=== PATIENT | male | born 1940 | race Caucasian/White ===

== ENCOUNTER 2022-02-01 09:20 | Inpatient (IN) ==
--- NOTE | 2022-02-01 12:37 | History & Physical Report ---
Date of Service February 01, 2022 Assessment & Plan (1) Acute kidney injury superimposed on CKD: Plan: Suspect related to dehydration from poor oral intake related to COVID infection but will need to rule out other causes. Known left renal mass suspicious for neoplasm but has been stable on outpatient serial imaging. - Admit to PCU - Consult nephrology - IVF hydration - Daily labs - Renal U/S to evaluate for structural issue - Check UA, CK (2) Pneumonia due to COVID-19 virus: Plan: Increased O2 requirement from baseline, procal is normal so suspect infiltrate seen in the ED at [place] likely viral rather than bacterial. Holding additional antibiotics for now. - Continue O2 titrated as needed - Start dexamethasone. Stop molnupiravir due to worsening of baseline hypoxia and TRACY. Not a candidate for remdesivir due to kidney disease. - Repeat CXR in AM (3) Chronic hypoxemic respiratory failure: (4) Anemia of chronic renal failure: (5) HTN (hypertension): (6) Coronary artery disease: (7) BPH (benign prostatic hyperplasia): (8) Dyslipidemia: (9) Left renal mass: (10) COPD with exacerbation: Plan Continue other home meds as appropriate. Pt seen and reviewed with collaborating physician, Dr. Elizabeth. Plan of care discussed and as outlined above. Code Status: Full code DVT Prophylaxis: SubQ heparin Grayson Linder PA-C Admission and Anticipated Discharge Date Admission Date: February 01, 2022 History of Present Illness Chief Complaint: Worsening kidney function Primary Care Provider: Sujata Preston MD This is an 81 y/o male with a PMH of COPD, CKD4, chronic hypoxemic resp failure requiring 3L O2 at night, anemia, prior renal cell CA, MOLLY and COPD overlap syndrome, HTN, prior AK, prior CVA, dyslipidemia, and other PMH as outlined below who presented to [place] ED last night with worsening respiratory distress then was transferred to the this facility today for a higher level of care. Pt reports that he developed URI symptoms on 01/29 - cough, sweats, [place]KEFIELD, diarrhea, congestion, and increased dyspnea. Took a home test for COVID on 01/30 which was positive. Prescribed molnupiravir by PCP, which he has been taking. Last night, his respiratory symptoms worsened with increased O2 requirement from baseline 3L to 6L to maintain sats so he went to the ED in [place] for evaluation. In the ED, he was noted to have an TRACY. Due to lack of specialist care including nephrology in at [facility], transfer was recommended. Since pt follows with Dr. Patle for CKD as outpatient, family preferred that he come to a facility where [facility] providers are available. In addition to increased O2 requirement last night, pt has also been using on demand if needed in evenings or with significant exertion. His cough is productive of yellow-green mucus, occasional hemoptysis. Unsure if he has had a fever but has had sweats. Appetite is decreased but has been trying to keep up with fluids, limited solid food. Urinary output decreased but relates to poor oral intake. The initial diarrhea seems to have improved. Has had associated WAKEFIELD, fatigue, and weakness. Allergies Allergy/AdvReac Type Severity Reaction Status Date / Time No Known Allergies Allergy Unverified 02/01/22 13:03 Home Medications Medication Instructions Recorded Confirmed Type carvedilol 3.125 mg tablet (Coreg) 3.125 mg PO BID 02/01/22 02/01/22 History hydralazine 25 mg tablet 25 mg PO BID 02/01/22 02/01/22 History molnupiravir 800 mg PO BID covid 02/01/22 02/01/22 History nifedipine 60 mg tablet,extended 60 mg PO BID 02/01/22 02/01/22 History release 24 hr (Procardia XL) rosuvastatin 40 mg tablet (Crestor) 40 mg PO DAILY 02/01/22 02/01/22 History trazodone 50 mg tablet 50 mg PO HS 02/01/22 02/01/22 History venlafaxine 37.5 mg 37.5 mg PO DAILY 02/01/22 02/01/22 History capsule,extended release 24 hr (Effexor XR) Past Med/Surg History Medical History Adjustment disorder with mixed disturbance of emotions and conduct Anemia of chronic renal failure BPH (benign prostatic hyperplasia) C7 radiculopathy Carotid stenosis, right Chronic hypoxemic respiratory failure CKD (chronic kidney disease) stage 4, GFR 15-29 ml/min COPD (chronic obstructive pulmonary disease) Coronary artery disease Dyslipidemia History of basal cell carcinoma History of AK (myocardial infarction) History of stroke HTN (hypertension) Lumbosacral radiculopathy at L5 MOLLY and 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 Prediabetes Renal osteodystrophy Surgical History History of appendectomy History of cholecystectomy History of heart artery stent Family History (Updated 02/01/22 @ 12:05 by Madonna Linder PA-C) Other Colorectal cancer Social History Smoking Status: Never smoker Second Hand Exposure: No; Do You Dip or Chew Tobacco: No; Tobacco Cessation Education Requested by Patient: No Hx Alcohol Use: No Hx Substance Use: No Communication Ability: Effective Beliefs That Will Affect Care: None Current Living Situation: Spouse Other Information That Helps Us Care for You: No Feels Safe at Home: Yes Safety Concerns: Feels Safe At This Time Assistive Devices: Cane Review of Systems Review of Systems: All systems reviewed & are unremarkable except as noted in HPI & below Constitutional: + sweats, + fatigue and + anorexia Eyes: no diplopia Ear, Nose, Mouth, Throat: + nasal congestion Respiratory: + cough, + change in sputum, + dyspnea and + wheezing Cardiovascular: + chest pain (describes burning in his chest); no palpitations and no edema Gastrointestinal: no abdominal pain and no vomiting Genitourinary: no dysuria or no hematuria Integumentary: no rash and no yellowing of the skin Neurologic: + generalized weakness and + headache(s) Physical Exam Constitutional: well developed and well nourished; no acute distress Eyes: + anicteric sclerae Neck: trachea midline Respiratory: no respiratory distress and no labored breathing Auscultation: + diminished lung sounds and + wheezes (occasional faint end expiratory) Cardiovascular: Rate/Rhythm: regular rate and regular rhythm Vessels: radial pulses present Extremities: no pedal edema Gastrointestinal (Abdomen): Inspection/Auscultation: normal bowel sounds; abdomen not distended Percussion/Palpation: abdomen soft; abdomen nontender Musculoskeletal: Head/Neck/Chest: normocephalic, head atraumatic and neck supple Skin: no jaundice Neurologic: moves all extremities; no focal motor deficits and not confused Psychiatric: A+Ox3, euthymic affect Results & Data Results & Data ([facility]) Vital Signs (Past 12 Hours) Vital Signs Temp Pulse Resp BP Pulse Ox O2 Del Method O2 Flow Rate 02/01/22 12:17 36.6 C 88 24 143/73 H 92 Nasal Cannula 4 Laboratory Results Laboratory Results - last 24 hr 02/01/22 02/01/22 02/01/22 12:38 12:38 12:38 WBC 3.85 L RBC 3.53 L Hgb 9.6 L Hct 30.8 L MCV 87.3 MCH 27.2 MCHC 31.2 L RDW Std Deviation 49.1 H RDW Coeff of John 15.4 H Plt Count 81 L MPV 11.8 Immature Gran % (Auto) 0.5 Neut % (Auto) 92.4 Lymph % (Auto) 4.2 [place] % (Auto) 2.9 Eos % (Auto) 0.0 Baso % (Auto) 0.0 Neut # (Auto) 3.56 Lymph # (Auto) 0.16 L [place] # (Auto) 0.11 L Eos # (Auto) 0.00 Baso # (Auto) 0.00 Immature Gran # (Auto) 0.02 Echinocytes 2+ Sodium 136 Potassium 4.5 Chloride 108 H Carbon Dioxide 20 L Anion Gap 8 BUN 68 H Creatinine 4.24 H Est Cr Clr Drug Dosing 13.4 Est GFR ( Amer) 14.2 Est GFR (Non-Af Amer) 12.3 BUN/Creatinine Ratio 16.0 Glucose 249 H Calcium 7.5 L Magnesium 2.2 Total Bilirubin 0.3 Direct Bilirubin 0.0 AST 23 ALT 21 Alkaline Phosphatase 42 C-Reactive Protein 6.03 H Total Protein 6.2 Albumin 3.6 Procalcitonin 0.24 Diagnostic Findings Outpatient Renal U/S 12/27/21 - increased echogenicity of the kidneys suggesting medical renal disease, persistent left upper pole mass suspicious for neoplasm (2.2x1.6x1.7 cm), mild 3.3 cm distal AAA Code Status & VTE Plan VTE Prophylaxis Plan VTE Prophylaxis will be ordered: Yes Supervising Physician Co-Signing Physician Notes I have seen and examined the patient and have discussed the case with the provider above. I agree with the assessment and plan as stated. 81 yo M with CKD presents from an OSH with acute on chronic kidney failure. Baseline creatinine is around 3.0 and today his creatinine is 4.24. He reports significant fatigue that started over the weekend along with runny nose and shortness of breath as noted above. He feels better at this time and has been placed on steroids. Although he is more hypoxic, we are not giving remdesivir because he was recently on molnupiravir and because of his renal dysfunction. He is obese, and in NAD. He appears fatigued but is mentating clearly without any gross focal neuro deficits. Speech intact. No increased work of breathing and he is able to situp with minimal assistance. Lungs reveal diffuse wheezing throughout on auscultation. Cardiac auscultation reveals S1/2 heard with no m/g/r and no peripheral edema. Covid-19 infection contributing to TRACY related to poor PO intake and general illness. A COPD exacerbation appears present. Cont with IVF, and repeat CXR in am. Cont with steroids for active wheezing and nebulized bronchodilators. Flonase for nasal congestion in covid and other supportive care measures as needed. DO Glenn
[2022-02-01 12:54] LABS: Hematocrit (blood only) 30.8 % (40.1-51.0); Hemoglobin 9.6 g/dl (14.0-18.0); White Blood Count 3.85 K/ul (4.8-10.8)
[2022-02-01 13:22] LABS: Albumin Level 3.6 gm/dl (3.4-5.0); Bilirubin,Total 0.3 mg/dl (0.2-1.0); C Reactive Protein 6.03 mg/dl (0-0.5); Calcium 7.5 mg/dl (8.5-10.1); Creatinine Clr Calc Pharmacy 13.4 ml/min; Echinocytes 2+; Est GFR (African American) 14.2 ml/min; Est GFR (Non-African American) 12.3 ml/min; Immature Granulocytes # (auto) 0.02 K/uL (0.00-0.02); Immature Granulocytes % (auto) 0.5 %; Lymphocytes # (auto) 0.16 K/uL (1.2-3.4); Lymphocytes % (auto) 4.2 %; Magnesium 2.2 mg/dl (1.7-2.4); Mean Corpuscular Hemoglobin 27.2 pg (25.0-34.0); Mean Corpuscular Hgb Conc 31.2 g/dL (32.0-36.0); Mean Corpuscular Volume 87.3 fL (80.0-100.0); Mean Platelet Volume 11.8 fL (9.4-12.4); Monocytes # (auto) 0.11 K/uL (0.24-0.82); Monocytes % (auto) 2.9 %; Neutrophils # (auto) 3.56 K/uL (1.4-6.5); Neutrophils % (auto) 92.4 %; Platelet Count 81 K/uL (130-400); Potassium 4.5 mmol/L (3.5-5.1); RDW Coefficient of Variation 15.4 % (11.5-14.5); RDW Standard Deviation 49.1 fL (36.4-46.3); Red Blood Count 3.53 M/uL (4.63-6.08); Total Protein 6.2 gm/dl (6.0-8.3)
[2022-02-01] MEDS: dexAMETHasone 6 MG in SYRINGE 0 ML IV SCH (14:56)
[2022-02-01] MEDS: SODIUM CHLORIDE 0.9% 1000ML 1,000 ML IV SCH (14:57)
--- NOTE | 2022-02-01 15:13 | Ultrasound Report ---
US renal/blad retro comp CLINICAL HISTORY: TRACY on CKD TECHNIQUE: Multiple sonographic real-time images of the kidneys and bladder were obtained. COMPARISON: None available at the time of this dictation. FINDINGS: The right kidney measures 11.7 cm in length, and the left kidney measures 14.2 cm in length. The right renal cortex is diffusely echogenic. Cysts are seen. No renal lesion is identified. No per inephric fluid collection is seen. The left renal cortex is diffusely echogenic. Cysts are seen measuring 3.8 x 5.5 x 3.0 cm. No renal l esion is identified. No perinephric fluid collection is seen. The bladder is partially distended. No large intraluminal mass is seen. IMPRESSION: Right renal cortex is echogenic compatible with medical renal disease. ACT 112: Negative or not required by law. Electronically signed by: Elio Pacheco M.D. 02/01/2022 3:12 PM
[2022-02-01] MEDS: HEPARIN SOD 5,000 UNIT/0.5 ML VIAL SQ SCH ×2 (15:38→20:31)
[2022-02-01 15:43] LABS: Appearance Urine Cloudy (Clear); Bacteria Urine Automated Negative (Negative); Bilirubin Urine Negative (Negative); Blood Urine Negative (Negative); Color Urine Yellow; Epithelial Cell Urine Auto >30 /lpf (0-5); Glucose Urine UA Trace (Negative); Ketones Urine Negative (Negative); Leukocyte Esterase Urine Negative (Negative); Nitrite Urine Negative (Negative); Protein Urine 3+ (Negative); RBC Urine Automated 0-4 /hpf (0-4); Specific Gravity Urine 1.011 (1.000-1.030); Urobilinogen Urine Negative (Negative)
[2022-02-01] MEDS: carvediloL 3.125 MG TAB PO SCH (20:27)
[2022-02-01] MEDS: hydrALAZINE HCL 25 MG TAB PO SCH (20:28)
[2022-02-01] MEDS: NIFEdipine EXTENDED REL 30 MG TABCR PO SCH (20:29)
[2022-02-01] MEDS: traZODone HCL 50 MG TAB PO SCH (20:30)
[2022-02-01] MEDS: FLUTICASONE PROPIONATE NA SPR 16 GM BTL NAE SCH (20:42)
[2022-02-02] MEDS: SODIUM CHLORIDE 0.9% 1000ML 1,000 ML IV SCH (01:31)
--- NOTE | 2022-02-02 02:31 | Consultation Report ---
NEPHROLOGY CONSULTATION NOTE DATE OF SERVICE: 02/01/2022. REASON FOR CONSULTATION: Acute renal failure on background CKD IV in a patient admitted with COVID pneumonia and hypoxia. HISTORY OF PRESENT ILLNESS: The patient is an 81-year-old male with history of COPD, on 3 liters oxygen at night, CKD IV with baseline creatinine around 3.3, prior history of renal cell cancer, obstructive sleep apnea as well as COPD, hypertension, prior history of AL. He presented to the [place] [facility] last night with worsening respiratory distress. He was found to be positive for COVID. The patient developed URI symptoms 3 days ago with cough, sweats, headache, diarrhea, congestion and increasing shortness of breath. He did have a COVID home test on 01/26/2022, which was positive. After that, he was prescribed molnupiravir by PCP, which he has been taking; however, the respiratory symptoms got increasingly worse requiring more oxygen. He was also hypoxic with oxygen level as low as 78% at some point. In the Emergency Department, he was noted to have acute kidney injury with a creatinine of 4.2 after which he was transferred to [facility] for specialist care. At this time, the patient is around 5 liters of oxygen, creatinine is 4.24, sodium and potassium are acceptable. Urine shows lots of epithelial cells and hyaline cast as well as granular cast. He does have COVID pneumonia, but on the x-ray does not have anything to suggest pulmonary edema. Renal ultrasound already done and does not have any hydronephrosis. The patient is currently getting normal saline at 100 mL per hour as well as dexamethasone. His blood pressure is somewhat high and it does not appear his blood pressure has been low at any point in the last 4 days. PAST MEDICAL AND SURGICAL HISTORY: Includes COPD, on 3 liters oxygen, chronic hypoxic respiratory failure requiring 3 liters oxygen at night, anemia, history of renal cell cancer, obstructive sleep apnea, COPD overlap syndrome, hypertension, coronary artery disease, CKD IV, baseline creatinine 3.3, history of stroke, dyslipidemia, appendicectomy, cholecystectomy, coronary artery stent, lumbosacral radiculopathy. FAMILY HISTORY: Negative for renal disease or dialysis. SOCIAL HISTORY: Never smoked. , lives with his spouse. Uses cane for walking. REVIEW OF SYSTEMS: Positive for fatigue, weakness, anorexia, sweating, chills, fever, cough with sputum, dyspnea which was progressively worsening, wheezing, some chest pressure, diarrhea. Otherwise, 12 systems reviewed and negative. PHYSICAL EXAMINATION: GENERAL: Elderly white male who is awake, alert, oriented x3. He is not in any overt respiratory distress and was able to speak a full sentence without getting short of breath. VITAL SIGNS: Blood pressure is 165/73, pulse rate 83, temperature 36.6, 95% on 4 liters nasal cannula. HEENT: Mucous membranes are moist. NECK: Supple. No jugular venous distention. CHEST: Bilateral prolonged expiration. Decreased breath sound at the bases. CARDIOVASCULAR: S1 and S2, regular. ABDOMEN: Soft, nontender. EXTREMITIES: Show no edema. LABORATORY TEST: Baseline creatinine is around 3.3, his creatinine on admission was 4.24, BUN of 68, bicarbonate 20, anion gap of 8, calcium 7.5. Total CK 97. Hemoglobin 9.6, WBC count 3.85, platelet count 81,000. Chest x-ray does not show any pulmonary edema. Renal ultrasound shows medical renal disease, no hydronephrosis. There are cysts in both kidneys, especially a large one in the left. ASSESSMENT AND PLAN: An 81-year-old male with multiple medical problems including chronic kidney disease IV, baseline creatinine around 3.3, now admitted with coronavirus disease pneumonia and hypoxic respiratory failure. He now has acute renal failure on background chronic kidney disease IV for which I have been consulted. 1. Acute renal failure. The acute component is actually not that much because even on a good day his baseline creatinine is around 3.3-3.5. Most likely etiology of the acute renal failure is transient acute tubular ischemia when he developed hypoxia at some point within the last few days. There is also some component of volume depletion. For the time being, we would give him IV fluid as well as support his hemodynamic status, especially oxygen saturation. We only have 1 set of lab at this time. Tomorrow morning, lab will give us better insight into the direction of the renal recovery. He is making good amount of urine, his vital signs are stable and he is not on any nephrotoxic agents or medicines at this time, so hopefully he will start to have some renal recovery. However, if there was a significant tubular ischemia leading to tubular necrosis, then the renal recovery will be protracted and we might even see some worsening of the kidney function. At this point, he does not need dialysis. We will assess him on a daily basis and manage accordingly. Thank you very much for the consult. Job ID: [id number] KEV
[2022-02-02] MEDS: HEPARIN SOD 5,000 UNIT/0.5 ML VIAL SQ SCH ×3 (05:33→20:33)
[2022-02-02 06:41] LABS: Hematocrit (blood only) 28.8 % (40.1-51.0); Mean Corpuscular Hemoglobin 26.7 pg (25.0-34.0); Mean Corpuscular Hgb Conc 31.3 g/dL (32.0-36.0); Mean Corpuscular Volume 85.5 fL (80.0-100.0); Mean Platelet Volume 11.6 fL (9.4-12.4); Platelet Count 88 K/uL (130-400); RDW Coefficient of Variation 15.3 % (11.5-14.5); RDW Standard Deviation 47.7 fL (36.4-46.3); Red Blood Count 3.37 M/uL (4.63-6.08); White Blood Count 5.58 K/ul (4.8-10.8)
[2022-02-02 06:51] LABS: Albumin Level 3.3 gm/dl (3.4-5.0); BUN Creatinine Ratio 16.3 (10-20); Bilirubin Direct 0.1 mg/dl (0-0.2); Bilirubin,Total 0.2 mg/dl (0.2-1.0); Calcium 7.4 mg/dl (8.5-10.1); Creatinine Clr Calc Pharmacy 12.6 ml/min; Est GFR (African American) 12.9 ml/min; Est GFR (Non-African American) 11.1 ml/min; Potassium 4.8 mmol/L (3.5-5.1); Total Protein 5.7 gm/dl (6.0-8.3)
[2022-02-02 06:54] LABS: Echinocytes 2+; Immature Granulocytes # (auto) 0.03 K/uL (0.00-0.02); Immature Granulocytes % (auto) 0.5 %; Lymphocytes # (auto) 0.35 K/uL (1.2-3.4); Lymphocytes % (auto) 6.3 %; Monocytes # (auto) 0.44 K/uL (0.24-0.82); Monocytes % (auto) 7.9 %; Neutrophils # (auto) 4.76 K/uL (1.4-6.5); Neutrophils % (auto) 85.3 %
[2022-02-02] MEDS: ALBUT/IPRATROP 3MG/0.5MG NEB 3 ML VIAL NEB SCH ×4 (07:12→20:03)
[2022-02-02] MEDS: dexAMETHasone 6 MG in SYRINGE 0 ML IV SCH (08:31)
[2022-02-02] MEDS: carvediloL 3.125 MG TAB PO SCH ×2 (08:33→20:37)
[2022-02-02] MEDS: NIFEdipine EXTENDED REL 30 MG TABCR PO SCH ×2 (08:33→20:37)
[2022-02-02] MEDS: VENLAFAXINE HCL XR 37.5 MG CAPXR PO SCH (08:33)
[2022-02-02] MEDS: hydrALAZINE HCL 25 MG TAB PO SCH ×2 (08:33→20:37)
--- NOTE | 2022-02-02 10:49 | Nephrology Progress Note ---
Date of Service February 02, 2022 Assessment & Plan Admission and Anticipated Discharge Date Admission Date: February 01, 2022 Subjective S---feels breathing about 20% better but still lot of cough and wheezing. PHYSICAL EXAMINATION: GENERAL: Elderly white male who is awake, alert, oriented x3. He is not in any overt respiratory distress and was able to speak a full sentence without getting short of breath. HEENT: Mucous membranes are moist. NECK: Supple. No jugular venous distention. CHEST: Bilateral prolonged expiration. Decreased breath sound at the bases. CARDIOVASCULAR: S1 and S2, regular. ABDOMEN: Soft, nontender. EXTREMITIES: Show no edema. LABORATORY TEST: Baseline creatinine is around 3.3, his creatinine on admission was 4.24, This am up to 4.6. Chest x-ray does not show any pulmonary edema. Renal ultrasound shows medical renal disease, no hydronephrosis. There are cysts in both kidneys, especially a large one in the left. ASSESSMENT AND PLAN: An 81-year-old male with multiple medical problems including chronic kidney disease IV, baseline creatinine around 3.3, now admitted with coronavirus disease pneumonia and hypoxic respiratory failure. He now has acute renal failure on background chronic kidney disease IV for which I have been consulted. 1. Acute renal failure--- The acute component is actually not that much because even on a good day his baseline creatinine is around 3.3-3.5. The etiology of the acute renal failure is transient acute tubular ischemia when he developed hypoxia at some point within the last few days. There is also some component of volume depletion but has already got enough iv fluid. too much fluid can trigger pulm edema and that will be very dangerous. He is making good amount of urine, his vital signs are stable and he is not on any nephrotoxic agents or medicines at this time, so hopefully he will start to have some renal recovery. The renal recovery will likely be protracted ( given pre existing CKD 4 and advanced age/ resp failure) and we might even see some worsening of the kidney function before getting better. At this point, he does not need dialysis. We will assess him on a daily basis and manage accordingly. Results & Data ([facility]) Vital Signs (Past 12 Hours) Vital Signs Temp Pulse Pulse Resp BP Pulse Ox O2 Del Method 02/02/22 08:04 36.4 C L 70 18 147/63 H 93 Nasal Cannula 02/02/22 07:13 58 L 18 91 Nasal Cannula 02/02/22 02:31 36.5 C 64 18 160/75 H 95 Nasal Cannula 02/01/22 23:50 36.5 C 77 20 157/63 H 92 Nasal Cannula 02/01/22 23:56 Nasal Cannula 02/01/22 23:54 83 O2 Flow Rate 02/02/22 08:04 4 02/02/22 07:13 4 02/02/22 02:31 4.0 02/01/22 23:50 4.0 02/01/22 23:56 4 02/01/22 23:54
--- NOTE | 2022-02-02 13:16 | Hospitalist Progress Note ---
Date of Service February 02, 2022 Assessment & Plan (1) Acute kidney injury superimposed on CKD: Plan: Likely TRACY due to ATN from hypoxia/COVID. He is transferred here from [facility] due to unavailability of nephrology there. Known left renal mass suspicious for neoplasm but has been stable on outpatient serial imaging. Baseline creatinine around 3; on lab 01/02/2022 Creatinine slightly up trended to 4.6; admission creatinine 4.2. Urinalysis shows 3+ proteinuria Renal ultrasound unremarkable for hydronephrosis CK- 97. Plan; Nephrology on board; acute renal failure is likely transient acute tubular ischemia related with hypoxia. Patient has received 2 L of IV fluids already. No additional IV fluids for now. Monitor BMP daily Avoid nephrotoxic agents. (2) Pneumonia due to COVID-19 virus: Plan: Chest x-ray in [facility] showed bilateral infiltrates likely related to COVID- 19 infection. Patient is at baseline oxygen requirement. Plan; Continue on dexamethasone 6 mg once daily; 5 days versus 10 days depending on clinical course. - Monitor for respiratory distress; titrate oxygen to maintain saturation around 90%. (3) Chronic hypoxemic respiratory failure: (4) Anemia of chronic renal failure: Plan: Hemoglobin is stable around 9. (5) HTN (hypertension): Plan: Coreg, hydralazine and nifedipine at home (6) Dyslipidemia: Plan: On Crestor Plan Continue other home meds as appropriate. PT/OT ordered Code Status: Full code DVT Prophylaxis: SubQ heparin Admission and Anticipated Discharge Date Admission Date: February 01, 2022 Subjective Patient seen and examined at bedside. Is comfortably sitting up on the bed; not in any distress. He denies any increasing shortness of breath. He is urinating well without any issues. Review of Systems Review of Systems: All systems reviewed & are unremarkable except as noted in Subjective Physical Exam Physical Exam: Constitutional: WD/WN, vitals as above, NAD, sitting up in bed, pleasant, conversing easily Respiratory: normal respiratory effort, lungs clear to auscultation, no wheeze, rales, rhonchi. Normal insp/exp effort, no accessory muscle use Cardiovascular: Occasional wheezes; otherwise clear bilateral breath sounds. Chest: normal inspection of chest Abdomen: normal bowel sounds, soft, nontender, no hepatosplenomegaly Musculoskeletal: no cyanosis or clubbing, extremities motor strength 5/5 Skin: no rashes, warm and dry normal turgor Neurologic: PERRL, EOMI, accommodation nl, no face palsy, no dysarthria CN's II- XI intact bilaterally and moves all extremities Psychiatric: A+Ox3, euthymic affect Lymphatic: no cervical or axillary lymphadenopathy : deferred Results & Data Results & Data ([facility]) Vital Signs (Past 12 Hours) Vital Signs Temp Pulse Resp BP Pulse Ox O2 Del Method O2 Flow Rate 02/02/22 11:41 36.4 C L 64 18 133/70 91 Nasal Cannula 2 02/02/22 11:12 75 18 93 Nasal Cannula 4 02/02/22 08:00 Nasal Cannula 4 02/02/22 08:04 36.4 C L 70 18 147/63 H 93 Nasal Cannula 4 02/02/22 07:13 58 L 18 91 Nasal Cannula 4 02/02/22 02:31 36.5 C 64 18 160/75 H 95 Nasal Cannula 4.0 Laboratory Results Laboratory Results WBC 5.58 K/ul (4.8-10.8) 02/02/22 05:39 RBC 3.37 M/uL (4.63-6.08) L 02/02/22 05:39 Hgb 9.0 g/dl (14.0-18.0) L 02/02/22 05:39 Hct 28.8 % (40.1-51.0) L 02/02/22 05:39 MCV 85.5 fL (80.0-100.0) 02/02/22 05:39 MCH 26.7 pg (25.0-34.0) 02/02/22 05:39 MCHC 31.3 g/dL (32.0-36.0) L 02/02/22 05:39 RDW Std Deviation 47.7 fL (36.4-46.3) H 02/02/22 05:39 RDW Coeff of John 15.3 % (11.5-14.5) H 02/02/22 05:39 Plt Count 88 K/uL (130-400) L 02/02/22 05:39 MPV 11.6 fL (9.4-12.4) 02/02/22 05:39 Immature Gran % (Auto) 0.5 % 02/02/22 05:39 Neut % (Auto) 85.3 % 02/02/22 05:39 Lymph % (Auto) 6.3 % 02/02/22 05:39 Heard % (Auto) 7.9 % 02/02/22 05:39 Eos % (Auto) 0.0 % 02/02/22 05:39 Baso % (Auto) 0.0 % 02/02/22 05:39 Neut # (Auto) 4.76 K/uL (1.4-6.5) 02/02/22 05:39 Lymph # (Auto) 0.35 K/uL (1.2-3.4) L 02/02/22 05:39 Heard # (Auto) 0.44 K/uL (0.24-0.82) 02/02/22 05:39 Eos # (Auto) 0.00 K/uL (0-0.50) 02/02/22 05:39 Baso # (Auto) 0.00 K/uL (0-0.2) 02/02/22 05:39 Immature Gran # (Auto) 0.03 K/uL (0.00-0.02) H 02/02/22 05:39 Echinocytes 2+ 02/02/22 05:39 Sodium 138 mmol/L (136-145) 02/02/22 05:39 Potassium 4.8 mmol/L (3.5-5.1) 02/02/22 05:39 Chloride 112 mmol/L (98-107) H 02/02/22 05:39 Carbon Dioxide 19 mmol/L (21-32) L 02/02/22 05:39 Anion Gap 7 (3-11) 02/02/22 05:39 BUN 75 mg/dl (6-23) H 02/02/22 05:39 Creatinine 4.60 mg/dl (0.6-1.4) H* D 02/02/22 05:39 Est Cr Clr Drug Dosing 12.6 ml/min 02/02/22 05:39 Est GFR ( Amer) 12.9 ml/min 02/02/22 05:39 Est GFR (Non-Af Amer) 11.1 ml/min 02/02/22 05:39 BUN/Creatinine Ratio 16.3 (10-20) 02/02/22 05:39 Glucose 123 mg/dl (70-99(Fasting)) H 02/02/22 05:39 Calcium 7.4 mg/dl (8.5-10.1) L 02/02/22 05:39 Magnesium 2.2 mg/dl (1.7-2.4) 02/01/22 12:38 Total Bilirubin 0.2 mg/dl (0.2-1.0) 02/02/22 05:39 Direct Bilirubin 0.1 mg/dl (0-0.2) 02/02/22 05:39 AST 24 U/L (13-39) 02/02/22 05:39 ALT 21 U/L (7-52) 02/02/22 05:39 Alkaline Phosphatase 38 U/L (34-104) 02/02/22 05:39 Total Creatine Kinase 97 U/L (30-223) 02/01/22 12:42 C-Reactive Protein 6.03 mg/dl (0-0.5) H 02/01/22 12:38 Total Protein 5.7 gm/dl (6.0-8.3) L 02/02/22 05:39 Albumin 3.3 gm/dl (3.4-5.0) L 02/02/22 05:39 Procalcitonin 0.24 ng/ml (0-0.5) 02/01/22 12:38 Urine Color Yellow 02/01/22 15:10 Urine Appearance Cloudy (Clear) A 02/01/22 15:10 Urine pH 5.0 (4.5-7.5) 02/01/22 15:10 Ur Specific [place] 1.011 (1.000-1.030) 02/01/22 15:10 Urine Protein 3+ (Negative) H 02/01/22 15:10 Urine Glucose (UA) Trace (Negative) H 02/01/22 15:10 Urine Ketones Negative (Negative) 02/01/22 15:10 Urine Blood Negative (Negative) 02/01/22 15:10 Urine Nitrite Negative (Negative) 02/01/22 15:10 Urine Bilirubin Negative (Negative) 02/01/22 15:10 Urine Urobilinogen Negative (Negative) 02/01/22 15:10 Ur Leukocyte Esterase Negative (Negative) 02/01/22 15:10 Urine WBC (Auto) 1-5 /hpf (0-5) 02/01/22 15:10 Urine RBC (Auto) 0-4 /hpf (0-4) 02/01/22 15:10 U Hyaline Cast (Auto) 5-10 /lpf (0-5) H 02/01/22 15:10 U Epithel Cells (Auto) >30 /lpf (0-5) H 02/01/22 15:10 Urine Bacteria (Auto) Negative (Negative) 02/01/22 15:10 Granular Casts 1-5 /lpf (0) H 02/01/22 15:10 Urine Yeast Not Reportable 02/01/22 15:10 Impressions Renal Ultrasound 02/01/22 13:30 US renal/blad retro comp CLINICAL HISTORY: TRACY on CKD TECHNIQUE: Multiple sonographic real-time images of the kidneys and bladder were obtained. COMPARISON: None available at the time of this dictation. FINDINGS: The right kidney measures 11.7 cm in length, and the left kidney measures 14.2 cm in length. The right renal cortex is diffusely echogenic. Cysts are seen. No renal lesion is identified. No perinephric fluid collection is seen. The left renal cortex is diffusely echogenic. Cysts are seen measuring 3.8 x 5.5 x 3.0 cm. No renal lesion is identified. No perinephric fluid collection is seen. The bladder is partially distended. No large intraluminal mass is seen. IMPRESSION: Right renal cortex is echogenic compatible with medical renal disease. ACT 112: Negative or not required by law. Electronically signed by: Elio Pacheco M.D. 02/01/2022 3:12 PM
--- NOTE | 2022-02-02 14:58 | XRay Report ---
XR chest 2V PA/lateral HISTORY: f/u right basilar infiltrate from outside facility COMPARISON: Outside hospital chest x-ray 01/31/2022. FINDINGS: No pneumothorax. The cardiac silhouette remains top normal in size. Persistent right basila r airspace opacity with a small right pleural effusion. A few left basilar linear densities favor sub segmental atelectasis or scarring. This is also unchanged. IMPRESSION: No change in the right basilar airspace opacity with a small right pleural effusion. Follow-up recomm ended to ensure complete resolution. ACT 112: Negative or not required by law. Electronically signed by: Joselo Garcia M.D. 02/02/2022 2:56 PM
[2022-02-02] MEDS: FLUTICASONE PROPIONATE NA SPR 16 GM BTL NAE SCH (20:32)
[2022-02-02] MEDS: traZODone HCL 50 MG TAB PO SCH (20:37)
[2022-02-03] MEDS: HEPARIN SOD 5,000 UNIT/0.5 ML VIAL SQ SCH ×3 (05:15→20:13)
[2022-02-03 06:21] LABS: Hematocrit (blood only) 27.6 % (40.1-51.0); Hemoglobin 8.6 g/dl (14.0-18.0); Immature Granulocytes # (auto) 0.02 K/uL (0.00-0.02); Immature Granulocytes % (auto) 0.5 %; Lymphocytes # (auto) 0.49 K/uL (1.2-3.4); Lymphocytes % (auto) 11.5 %; Mean Platelet Volume 11.7 fL (9.4-12.4); Monocytes # (auto) 0.33 K/uL (0.24-0.82); Monocytes % (auto) 7.7 %; Neutrophils # (auto) 3.43 K/uL (1.4-6.5); Neutrophils % (auto) 80.3 %; Platelet Count 95 K/uL (130-400); White Blood Count 4.27 K/ul (4.8-10.8)
[2022-02-03 06:45] LABS: Echinocytes 1+; Mean Corpuscular Hemoglobin 26.8 pg (25.0-34.0); Mean Corpuscular Hgb Conc 31.2 g/dL (32.0-36.0); RDW Coefficient of Variation 15.3 % (11.5-14.5); RDW Standard Deviation 48.1 fL (36.4-46.3); Red Blood Count 3.21 M/uL (4.63-6.08)
[2022-02-03 06:58] LABS: Albumin Level 3.2 gm/dl (3.4-5.0); BUN Creatinine Ratio 17.9 (10-20); Bilirubin,Total 0.3 mg/dl (0.2-1.0); Calcium 7.3 mg/dl (8.5-10.1); Creatinine Clr Calc Pharmacy 12.7 ml/min; Est GFR (African American) 12.9 ml/min; Est GFR (Non-African American) 11.1 ml/min; Potassium 4.6 mmol/L (3.5-5.1); Total Protein 5.4 gm/dl (6.0-8.3)
[2022-02-03] MEDS: ALBUT/IPRATROP 3MG/0.5MG NEB 3 ML VIAL NEB SCH ×4 (07:03→19:56)
[2022-02-03] MEDS: hydrALAZINE HCL 25 MG TAB PO SCH ×2 (08:22→20:13)
[2022-02-03] MEDS: dexAMETHasone 6 MG in SYRINGE 0 ML IV SCH (08:22)
[2022-02-03] MEDS: carvediloL 3.125 MG TAB PO SCH ×2 (08:22→20:13)
[2022-02-03] MEDS: NIFEdipine EXTENDED REL 30 MG TABCR PO SCH ×2 (08:22→20:13)
[2022-02-03] MEDS: VENLAFAXINE HCL XR 37.5 MG CAPXR PO SCH (08:22)
--- NOTE | 2022-02-03 12:00 | Nephrology Progress Note ---
Date of Service February 03, 2022 Assessment & Plan (1) Acute kidney injury superimposed on CKD: Plan: : An 81-year-old male with multiple medical problems including chronic kidney disease IV, baseline creatinine around 3.3, admitted with coronavirus disease pneumonia and hypoxic respiratory failure. He now has acute renal failure on background chronic kidney disease IV . 1. Acute renal failure on CKD -Etiology of the acute renal failure is transient acute tubular ischemia when he developed hypoxia at some point within the last few days. There is also some component of volume depletion but has already got enough iv fluid.He is making good amount of urine, his vital signs are stable and he is not on any nephrotoxic agents or medicines at this time, so hopefully he will start to have some renal recovery as his Scr has now plateued and hopefully he will not need dialysis. - Daily assesement with BMP . -The renal recovery will likely be protracted ( given pre existing CKD 4 and advanced age/ resp failure) Admission and Anticipated Discharge Date Admission Date: February 01, 2022 Subjective Lying comfortably on bed No shortness of breath, on 4 L oxygen No pedal edema Review of Systems Review of Systems: lying comfortably on bed No shortness of breath, on 4 L oxygen No pedal edema Physical Exam Physical Exam: GENERAL: Elderly white male who is awake, alert, oriented x3. He is not in any overt respiratory distress and was able to speak a full sentence without getting short of breath. HEENT: Mucous membranes are moist. NECK: Supple. No jugular venous distention. CHEST: Bilateral prolonged expiration. Decreased breath sound at the bases. CARDIOVASCULAR: S1 and S2, regular. ABDOMEN: Soft, nontender. EXTREMITIES: Show no edema. Results & Data ([facility]) Vital Signs (Past 12 Hours) Vital Signs Temp Pulse Pulse Resp BP Pulse Ox O2 Del Method 02/03/22 11:05 79 20 91 Nasal Cannula 02/03/22 08:00 59 L 02/03/22 08:00 Nasal Cannula 02/03/22 08:13 36.5 C 66 17 107/57 L 93 Room Air 02/03/22 07:05 67 20 90 Nasal Cannula 02/03/22 04:24 36.3 C L 63 18 127/55 L 91 Nasal Cannula O2 Flow Rate 02/03/22 11:05 4 02/03/22 08:00 02/03/22 08:00 4 02/03/22 08:13 02/03/22 07:05 4 02/03/22 04:24 4.0 Laboratory Results 02/03/22 06:02 02/03/22 06:02
[2022-02-03] MEDS ORDERED: MELATONIN 3 MG TAB PO PRN (15:58)
[2022-02-03] MEDS ORDERED: POLYETHYLENE (MIRALAX) 17 GM PACK PO ONE (16:00)
--- NOTE | 2022-02-03 16:06 | Hospitalist Progress Note ---
Date of Service February 03, 2022 Assessment & Plan (1) Acute kidney injury superimposed on CKD: Plan (1) Acute kidney injury superimposed on CKD: Likely TRACY due to ATN from hypoxia/COVID. He is transferred here from [facility] due to unavailability of nephrology there. Known left renal mass suspicious for neoplasm but has been stable on outpatient serial imaging. Baseline creatinine around 3; on lab 01/02/2022 Creatinine slightly up trended to 4.6; admission creatinine 4.2 --> around mid 4 lately. Urinalysis shows 3+ proteinuria Renal ultrasound unremarkable for hydronephrosis Plan; Nephrology on board; acute renal failure is likely transient acute tubular ischemia related with hypoxia. Patient has received 2 L of IV fluids already at admission. No additional IV fluids for now. Monitor BMP daily Avoid nephrotoxic agents. (2) Pneumonia due to COVID-19 virus: (3) Chronic hypoxemic respiratory failure: Admitting Chest x-ray in [facility] showed bilateral infiltrates likely related to COVID-19 infection. Patient is uses 3L O2 at home. Currently on 3-4 L. Plan; Continue on dexamethasone 6 mg once daily; 5 days versus 10 days depending on clinical course. - Monitor for respiratory distress; titrate oxygen to maintain saturation around 90%. (4) Anemia of chronic renal failure: Hemoglobin is stable around 9. (5) other chronic medical conditions: HTN (hypertension), HLD -->> continue with/resume home meds as and when able. CODE STATUS: Full code DVT prophylaxis: Subcu heparin Disposition: Telemetry monitoring, PT/OT, CM to assist with DC planning. Pending renal function improvement. Admission and Anticipated Discharge Date Admission Date: February 01, 2022 Subjective Patient seen and examined at bedside as a follow-up of acute kidney injury superimposed on CKD and pneumonia due to COVID-19 virus. Patient was lying in bed, on 3 L nasal cannula oxygen, NAD, reports not being able to sleep overnight, reports eating okay, reports last bowel movement on Saturday and would like stool softener, reports decreasing cough and decreasing congestion, reports feeling better, had blood-tinged yellowish/greenish sputum, will continue to monitor, denies fever/chills/headache/chest pain/palpitation/other review of symptoms. Physical Exam Physical Exam: GENERAL: Alert and oriented x3. NAD, on RA. HEENT: No pallor, no icterus. Pupils equal, round and reactive to light. Oral mucosa moist. NECK: No JVD, no neck masses. HEART: S1 and S2 heard. Regular rate and rhythm. No murmur, no gallop. RESPIRATORY SYSTEM: Normal AP diameter. No accessory muscle use. No wheezing, no crackles. R > L increased breath sounds. ABDOMEN: Soft, bowel sounds present, nontender, no distention. CENTRAL NERVOUS SYSTEM: No facial droop. Speech is clear. Obeys simple commands. Moves extremities. EXTREMITIES: No edema, no erythema seen. Results & Data Results & Data ([facility]) Vital Signs (Past 12 Hours) Vital Signs Temp Pulse Pulse Pulse Resp BP Pulse Ox 02/03/22 15:31 36.6 C 84 14 168/74 H 93 02/03/22 15:26 77 18 93 02/03/22 12:22 36.4 C L 73 18 154/68 H 91 02/03/22 11:05 79 20 91 02/03/22 08:00 59 L 02/03/22 08:00 02/03/22 08:13 36.5 C 66 17 107/57 L 93 02/03/22 07:05 67 20 90 02/03/22 04:24 36.3 C L 63 18 127/55 L 91 O2 Del Method O2 Flow Rate 02/03/22 15:31 Nasal Cannula 4 02/03/22 15:26 Nasal Cannula 4 02/03/22 12:22 Room Air 02/03/22 11:05 Nasal Cannula 4 02/03/22 08:00 02/03/22 08:00 Nasal Cannula 4 02/03/22 08:13 Room Air 02/03/22 07:05 Nasal Cannula 4 02/03/22 04:24 Nasal Cannula 4.0
[2022-02-03] MEDS: DOCUSATE SODIUM 100 MG CAP PO SCH (20:13)
[2022-02-03] MEDS: traZODone HCL 50 MG TAB PO SCH (20:13)
[2022-02-03] MEDS: FLUTICASONE PROPIONATE NA SPR 16 GM BTL NAE SCH (20:13)
[2022-02-04 06:14] LABS: Hematocrit (blood only) 28.7 % (40.1-51.0); Immature Granulocytes # (auto) 0.05 K/uL (0.00-0.02); Immature Granulocytes % (auto) 1.2 %; Lymphocytes # (auto) 0.48 K/uL (1.2-3.4); Lymphocytes % (auto) 11.8 %; Mean Platelet Volume 11.5 fL (9.4-12.4); Monocytes # (auto) 0.43 K/uL (0.24-0.82); Monocytes % (auto) 10.6 %; Neutrophils % (auto) 76.4 %; Platelet Count 105 K/uL (130-400); White Blood Count 4.06 K/ul (4.8-10.8)
[2022-02-04] MEDS: HEPARIN SOD 5,000 UNIT/0.5 ML VIAL SQ SCH ×3 (06:17→20:09)
[2022-02-04 06:38] LABS: Albumin Level 3.5 gm/dl (3.4-5.0); BUN Creatinine Ratio 18.9 (10-20); Bilirubin Direct 0.1 mg/dl (0-0.2); Bilirubin,Total 0.4 mg/dl (0.2-1.0); Calcium 7.8 mg/dl (8.5-10.1); Creatinine Clr Calc Pharmacy 14.6 ml/min; Est GFR (African American) 15.1 ml/min; Est GFR (Non-African American) 13.1 ml/min; Potassium 4.8 mmol/L (3.5-5.1)
[2022-02-04 07:01] LABS: Mean Corpuscular Hemoglobin 26.4 pg (25.0-34.0); Mean Corpuscular Hgb Conc 31.4 g/dL (32.0-36.0); Mean Corpuscular Volume 84.2 fL (80.0-100.0); RDW Coefficient of Variation 15.5 % (11.5-14.5); RDW Standard Deviation 46.5 fL (36.4-46.3); Red Blood Count 3.41 M/uL (4.63-6.08)
[2022-02-04] MEDS: ALBUT/IPRATROP 3MG/0.5MG NEB 3 ML VIAL NEB SCH ×4 (07:24→19:50)
[2022-02-04] MEDS: dexAMETHasone 6 MG in SYRINGE 0 ML IV SCH (07:48)
[2022-02-04] MEDS: hydrALAZINE HCL 25 MG TAB PO SCH ×2 (09:24→20:08)
[2022-02-04] MEDS: carvediloL 3.125 MG TAB PO SCH ×2 (09:24→20:08)
[2022-02-04] MEDS: NIFEdipine EXTENDED REL 30 MG TABCR PO SCH ×2 (09:24→20:08)
[2022-02-04] MEDS: DOCUSATE SODIUM 100 MG CAP PO SCH ×2 (09:24→20:08)
[2022-02-04] MEDS: VENLAFAXINE HCL XR 37.5 MG CAPXR PO SCH (09:24)
[2022-02-04] MEDS: POLYETHYLENE (MIRALAX) 17 GM PACK PO SCH (09:25)
--- NOTE | 2022-02-04 13:57 | Hospitalist Progress Note ---
Date of Service February 04, 2022 Assessment & Plan (1) Acute kidney injury superimposed on CKD: Plan (1) Acute kidney injury superimposed on CKD: Likely TRACY due to ATN from hypoxia/COVID. He is transferred here from [facility] due to unavailability of nephrology there. Known left renal mass suspicious for neoplasm but has been stable on outpatient serial imaging. Baseline creatinine around 3; on lab 01/02/2022 Creatinine slightly up trended to 4.6; admission creatinine 4.2 --> 4.02 today, improving. Urinalysis shows 3+ proteinuria Renal ultrasound unremarkable for hydronephrosis Plan; Nephrology on board; acute renal failure is likely transient acute tubular ischemia related with hypoxia. Patient has received 2 L of IV fluids already at admission. No additional IV fluids for now. Monitor BMP daily Avoid nephrotoxic agents. (2) Pneumonia due to COVID-19 virus: (3) Chronic hypoxemic respiratory failure: Admitting Chest x-ray in [facility] showed bilateral infiltrates likely related to COVID-19 infection. Patient is uses 3L O2 at home. Currently on 3-4 L. Plan; Continue on dexamethasone 6 mg once daily; 5 days versus 10 days depending on clinical course. - Monitor for respiratory distress; titrate oxygen to maintain saturation around 90%. - Pt reports doing better. (4) Anemia of chronic renal failure: Hemoglobin is stable around 9. (5) other chronic medical conditions: HTN (hypertension), HLD -->> continue with/resume home meds as and when able. CODE STATUS: Full code DVT prophylaxis: Subcu heparin Disposition: Telemetry monitoring, PT/OT, CM to assist with DC planning. Pending renal function improvement. DC w/ nephrology clearance. Admission and Anticipated Discharge Date Admission Date: February 01, 2022 Subjective Patient seen and examined at bedside as a follow-up of acute kidney injury superimposed on CKD and pneumonia due to COVID-19 virus. Patient was sitting up in chair, on 4 L nasal cannula oxygen, NAD, reports sleeping ok, reports eating okay, reports last bowel movement on Saturday and is taking stool softener, will follow, no belly pain or distension. Reports no cough and decreasing congestion, reports feeling better, no blood-tinged but has brownish sputum, will continue to monitor, denies fever/chills/headache/chest pain/palpitation/other review of symptoms. Physical Exam Physical Exam: GENERAL: Alert and oriented x3. NAD, on RA. HEENT: No pallor, no icterus. Pupils equal, round and reactive to light. Oral mucosa moist. NECK: No JVD, no neck masses. HEART: S1 and S2 heard. Regular rate and rhythm. No murmur, no gallop. RESPIRATORY SYSTEM: Normal AP diameter. No accessory muscle use. No wheezing, no crackles. CTA. ABDOMEN: Soft, bowel sounds present, nontender, no distention. CENTRAL NERVOUS SYSTEM: No facial droop. Speech is clear. Obeys simple commands. Moves extremities. EXTREMITIES: No edema, no erythema seen. Results & Data Results & Data ([facility]) Vital Signs (Past 12 Hours) Vital Signs Temp Pulse Pulse Pulse Resp BP Pulse Ox 02/04/22 11:57 36.5 C 65 20 160/79 H 95 02/04/22 11:29 80 18 91 02/04/22 08:00 64 02/04/22 11:07 88 L 02/04/22 07:43 36.6 C 62 14 137/64 91 02/04/22 07:24 87 18 92 02/04/22 04:41 36.5 C 64 18 141/64 H 92 O2 Del Method O2 Flow Rate 02/04/22 11:57 Nasal Cannula 4 02/04/22 11:29 Nasal Cannula 4 02/04/22 08:00 02/04/22 11:07 02/04/22 07:43 Nasal Cannula 4 02/04/22 07:24 Nasal Cannula 4 02/04/22 04:41 Nasal Cannula 4.0
[2022-02-04] MEDS ORDERED: CALCIUM CARBONATE 500 MG CHEWABLE TAB PO PRN (16:05)
[2022-02-04] MEDS: PANTOprazole 40 MG TAB PO SCH (17:18)
[2022-02-04] MEDS ORDERED: hydrALAZINE HCL 20 MG/ML VIAL IV PRN (18:02)
[2022-02-04] MEDS: FLUTICASONE PROPIONATE NA SPR 16 GM BTL NAE SCH (20:08)
[2022-02-04] MEDS: traZODone HCL 50 MG TAB PO SCH (20:09)
[2022-02-05] MEDS: HEPARIN SOD 5,000 UNIT/0.5 ML VIAL SQ SCH (05:18)
[2022-02-05 06:52] LABS: Hematocrit (blood only) 29.7 % (40.1-51.0); Hemoglobin 9.7 g/dl (14.0-18.0); Mean Platelet Volume 10.4 fL (9.4-12.4); Platelet Count 108 K/uL (130-400)
[2022-02-05 07:17] LABS: BUN Creatinine Ratio 17.5 (10-20); Calcium 8.3 mg/dl (8.5-10.1); Creatinine Clr Calc Pharmacy 14.8 ml/min; Est GFR (African American) 15.5 ml/min; Est GFR (Non-African American) 13.4 ml/min
[2022-02-05 07:27] LABS: Mean Corpuscular Hemoglobin 26.9 pg (25.0-34.0); Mean Corpuscular Hgb Conc 32.7 g/dL (32.0-36.0); Mean Corpuscular Volume 82.5 fL (80.0-100.0); RDW Coefficient of Variation 15.3 % (11.5-14.5); RDW Standard Deviation 46.4 fL (36.4-46.3)
[2022-02-05] MEDS: ALBUT/IPRATROP 3MG/0.5MG NEB 3 ML VIAL NEB SCH ×2 (07:37→11:12)
[2022-02-05] MEDS: dexAMETHasone 6 MG in SYRINGE 0 ML IV SCH (07:55)
[2022-02-05] MEDS: VENLAFAXINE HCL XR 37.5 MG CAPXR PO SCH (07:56)
[2022-02-05] MEDS: POLYETHYLENE (MIRALAX) 17 GM PACK PO SCH (07:56)
[2022-02-05] MEDS: hydrALAZINE HCL 25 MG TAB PO SCH (07:56)
[2022-02-05] MEDS: DOCUSATE SODIUM 100 MG CAP PO SCH (07:56)
[2022-02-05] MEDS: carvediloL 3.125 MG TAB PO SCH (07:56)
[2022-02-05] MEDS: NIFEdipine EXTENDED REL 30 MG TABCR PO SCH (07:56)
[2022-02-05] MEDS: PANTOprazole 40 MG TAB PO SCH (09:39)
--- NOTE | 2022-02-05 09:58 | Nephrology Progress Note ---
Date of Service February 05, 2022 Assessment & Plan Admission and Anticipated Discharge Date Admission Date: February 01, 2022 Subjective Assessment & Plan (1) Acute kidney injury superimposed on CKD: Plan: : An 81-year-old male with multiple medical problems including chronic kidney disease IV, baseline creatinine around 3.3, admitted with coronavirus disease pneumonia and hypoxic respiratory failure. He now has acute renal failure on background chronic kidney disease IV . 1. Acute renal failure on CKD -Etiology of the acute renal failure is transient acute tubular ischemia when he developed hypoxia at some point within the last few days.He is making good amount of urine, Scr has now plateaued and slowly trending down. -The renal recovery will likely be protracted ( given pre existing CKD 4 and advanced age/ resp failure)but at this time he is out of imminent danger of needing dialysis. Can be f/u as outpt. may or may not get back to previous baseline creatinine. Subjective Lying comfortably on bed No shortness of breath, on 4 L oxygen No pedal edema Review of Systems Review of Systems: lying comfortably on bed No shortness of breath, on 4 L oxygen No pedal edema Physical Exam Physical Exam: GENERAL: Elderly white male who is awake, alert, oriented x3. He is not in any overt respiratory distress and was able to speak a full sentence without getting short of breath. HEENT: Mucous membranes are moist. NECK: Supple. No jugular venous distention. CHEST: Bilateral prolonged expiration. Decreased breath sound at the bases. CARDIOVASCULAR: S1 and S2, regular. ABDOMEN: Soft, nontender. EXTREMITIES: Show no edema. Results & Data ([facility]) Vital Signs (Past 12 Hours) Vital Signs Temp Pulse Pulse Resp BP Pulse Ox O2 Del Method 02/05/22 08:00 65 02/05/22 08:00 Room Air 02/05/22 07:52 76 20 94 Nasal Cannula 02/05/22 07:50 36.5 C 60 16 160/75 H 90 Room Air 02/05/22 03:40 36.4 C L 63 18 154/65 H 93 Nasal Cannula 02/04/22 23:15 36.9 C 70 20 155/73 H 92 Nasal Cannula O2 Flow Rate 02/05/22 08:00 02/05/22 08:00 02/05/22 07:52 4 02/05/22 07:50 02/05/22 03:40 4.0 02/04/22 23:15 4.0
--- NOTE | 2022-02-05 11:56 | Discharge Summary ---
Date of Service February 05, 2022 Admission HPI Per Admitting Provider This is an 81 y/o male with a PMH of COPD, CKD4, chronic hypoxemic resp failure requiring 3L O2 at night, anemia, prior renal cell CA, MOLLY and COPD overlap syndrome, HTN, prior AL, prior CVA, dyslipidemia, and other PMH as outlined below who presented to [facility] ED last night with worsening respiratory distress then was transferred to the this facility today for a higher level of care. Pt reports that he developed URI symptoms on 01/29 - cough, sweats, WAKEFIELD, diarrhea, congestion, and increased dyspnea. Took a home test for COVID on 01/30 which was positive. Prescribed molnupiravir by PCP, which he has been taking. Last night, his respiratory symptoms worsened with increased O2 requirement from baseline 3L to 6L to maintain sats so he went to the ED in [place] for evaluation. In the ED, he was noted to have an TRACY. Due to lack of specialist care including nephrology in at [facility], transfer was recommended. Since pt follows with Dr. Patel for CKD as outpatient, family preferred that he come to a facility where [facility] providers are available. In addition to increased O2 requirement last night, pt has also been using on demand if needed in evenings or with significant exertion. His cough is productive of yellow-green mucus, occasional hemoptysis. Unsure if he has had a fever but has had sweats. Appetite is decreased but has been trying to keep up with fluids, limited solid food. Urinary output decreased but relates to poor oral intake. The initial diarrhea seems to have improved. Has had associated WAKEFIELD, fatigue, and weakness. Admission Exam Per Admitting Provider Constitutional: well developed and well nourished; no acute distress Eyes: + anicteric sclerae Neck: trachea midline Respiratory: no respiratory distress and no labored breathing Auscultation: + diminished lung sounds and + wheezes (occasional faint end expiratory) Cardiovascular: Rate/Rhythm: regular rate and regular rhythm Vessels: radial pulses present Extremities: no pedal edema Gastrointestinal (Abdomen): Inspection/Auscultation: normal bowel sounds; abdomen not distended Percussion/Palpation: abdomen soft; abdomen nontender Musculoskeletal: Head/Neck/Chest: normocephalic, head atraumatic and neck supple Skin: no jaundice Neurologic: moves all extremities; no focal motor deficits and not confused Psychiatric: A+Ox3, euthymic affect Principal Diagnosis Acute kidney injury superimposed on CKD Pneumonia due to COVID-19 virus Chronic hypoxemic respiratory failure Discharge Exam GENERAL: Alert and oriented x3. NAD, on RA. HEENT: No pallor, no icterus. Pupils equal, round and reactive to light. Oral mucosa moist. NECK: No JVD, no neck masses. HEART: S1 and S2 heard. Regular rate and rhythm. No murmur, no gallop. RESPIRATORY SYSTEM: Normal AP diameter. No accessory muscle use. No wheezing, no crackles. CTA. ABDOMEN: Soft, bowel sounds present, nontender, no distention. CENTRAL NERVOUS SYSTEM: No facial droop. Speech is clear. Obeys simple commands. Moves extremities. EXTREMITIES: No edema, no erythema seen. Discharge Data Allergies Allergy/AdvReac Type Severity Reaction Status Date / Time No Known Allergies Allergy Unverified 02/01/22 13:03 Consultations 02/01/22 11:14 Consult Nephrology Routine Ordered Studies 02/01/22 13:30 US Renal Bladder [US renal/blad retro comp] Routine Hospital Course (1) Acute kidney injury superimposed on CKD: Plan (1) Acute kidney injury superimposed on CKD: Likely TRACY due to ATN from hypoxia/COVID. He is transferred here from [facility] due to unavailability of nephrology there. Known left renal mass suspicious for neoplasm but has been stable on outpatient serial imaging. Baseline creatinine around 3; on lab 01/02/2022 Creatinine slightly up trended to 4.6; admission creatinine 4.2 --> Plateaued around 4, but improving. Urinalysis shows 3+ proteinuria Renal ultrasound unremarkable for hydronephrosis Plan; Nephrology on board; acute renal failure is likely transient acute tubular ischemia related with hypoxia. d/w nephro, ok for dc w/ close f/u w/ nephro as OP. CMP in a week upon dc. Avoid nephrotoxic agents. (2) Pneumonia due to COVID-19 virus: (3) Chronic hypoxemic respiratory failure: Admitting Chest x-ray in clear fluid showed bilateral infiltrates likely related to COVID-19 infection. Patient is uses 3L O2 at home. Currently on 3-4 L. and on RA when awake. Plan; s/p 5 days of dexamethasone 6 mg once daily; pt w/ no resp deterioration. - Pt reports doing better. - Pt to continue w/ incentive spirometer at home for 1-2 weeks. (4) Anemia of chronic renal failure: Hemoglobin is stable around 9. (5) other chronic medical conditions: HTN (hypertension), HLD -->> continue with/resume home meds as and when able. CODE STATUS: Full code DVT prophylaxis: Subcu heparin Disposition: Telemetry monitoring, PT/OT, CM to assist with DC planning. Pending renal function improvement. DC w/ nephrology clearance. Patient being discharged home with following instruction at the point of discharge: Follow-up with your primary care physician within a week time and likely you will need blood test CBC/CMP. Follow-up with nephrology in 1 to 2 weeks time. You completed 5 days of dexamethasone while inpatient, and you did not have any respiratory deterioration. You will not need further steroid upon discharge. You can use Tums as needed for indigestion. You can use [id number] laxatives/stool softener as needed. Continue with incentive spirometry for 1 to 2 weeks upon discharge. Take your medications as prescribed. Home Health Attestation I certify that this patient is under my care and that I, or a physicians registrar assistant working with me, had a face to-face encounter that meets the home health [id number] encounter requirements with this patient. The encounter with the patient was in whole, or in part, for the following medical condition, which is the primary reason for home health care (list medical condition): I certify that, based on my findings, the following services are medically necessary home health services: My clinical findings support the need for the above services because: Further, I certify that my clinical findings support that this patient is homebound (i.e. absences from home require considerable and taxing effort and are for medical reasons or congregation services or infrequently or of short duration when for other reasons) because: Certification for Home Health Services: Based on the above findings, I certify that this patient is confined to the home and needs intermittent penitentiary care, physical therapy and/or speech therapy or continues to need occupational therapy. The patient is under my care, and I have initiated the establishment of the plan of care. This patient will be followed by a physician who will periodically review the plan of care. Total Time Total Time Spent Total Time Spent (In Minutes): 40 Discharge Plan Discharge Items Patient Disposition: Home - Self-Care Reason For Visit: ACUTE RENAL FAILURE, COVID+ Discharge Diagnosis: Acute kidney injury superimposed on CKD Pneumonia due to COVID-19 virus Chronic hypoxemic respiratory failure Activity: Resume your previous activity Non-emergency contact: Primary Care Provider Call non-emergency contact if: you have any medication questions, your symptoms worsen and your temperature is above 101 Follow-up/Referrals: Sujata Preston MD [Primary Care Provider] - Diet: Dialysis Renal and Heart Healthy Addtl Attending Provider Instructions: Follow-up with your primary care physician within a week time and likely you will need blood test CBC/CMP. Follow-up with nephrology in 1 to 2 weeks time. You completed 5 days of dexamethasone while inpatient, and you did not have any respiratory deterioration. You will not need further steroid upon discharge. You can use Tums as needed for indigestion. You can use [id number] laxatives/stool softener as needed. Continue with incentive spirometry for 1 to 2 weeks upon discharge. Take your medications as prescribed. Pending Studies at Discharge: No Stand-Alone Forms: My [facility] [employer], Smoking Cessation Medications and DC Order Prescriptions: New fluticasone propionate 50 mcg/actuation [place],Suspension 2 spray KOURTNEY HS 10 Days Qty: 16 0RF Continued venlafaxine [Effexor XR] 37.5 mg Capsule,Extended Release 24hr 37.5 mg PO DAILY trazodone 50 mg Tablet 50 mg PO HS hydralazine 25 mg Tablet 25 mg PO BID carvedilol [Coreg] 3.125 mg Tablet 3.125 mg PO BID Rx Instructions: must administer with a meal/food nifedipine [Procardia XL] 60 mg Tablet Extended Release 24hr 60 mg PO BID rosuvastatin [Crestor] 40 mg Tablet 40 mg PO DAILY molnupiravir 800 mg PO BID Rx Instructions: take for 5 days, started on morning and did not have this AM dose Discharge Orders: Discharge Order (Routine); Ordered 02/05/22 Ordered By: Deysi Casey Admission Data Admit Date/Time: 02/01/22 11:14 Attending Provider: Deysi Casey Admit Provider: Bel Elizabeth Primary Care Provider: Sujata Preston Other Providers: Wai Gerardo
== END 2022-02-05 15:42 | disposition home or self-care (01) | DRG 177 ==
LOC: 2S 11:14 → SUATTDRO 11:14

== ENCOUNTER 2023-05-14 13:08 | Inpatient (IN) ==
--- NOTE | 2023-05-14 13:33 | ED Triage Note ---
Date of Service May 14, 2023 Provider in Triage Author: Juan Edward History of Present Illness This patient was briefly evaluated while in triage. An abbreviated physical exam was performed. This patient is a 82-year-old Male who presents to the ED for evaluation of coug gisela up blood. He states this has been ongoing for about 3 days. He states he was seen at [facility] in [place] and was told he had pneumonia but was sent here for further testing. He was hypoxic in the office. He sleeps with 4L of oxygen at night but does not wear it during the day. He reports he is always short of breath. Physical Exam VITALS: Vitals are noted on the nurse's note and reviewed by myself. GENERAL: This is an 82-year-old male, in no acute distress, sitting upright in a wheelchair in triage. RESP: Hypoxic with SPO2 83 percent on room air. Normal work of breathing. NEURO: Patient was alert and oriented to person place and time. Patient found to be hypoxic on initial exam, was placed on oxygen via nasal cannula and taken to the next available room. MDM / Impression Impression Impression: Acute and chronic respiratory failure, PNA (pneumonia), Cough with hemoptysis, End-stage renal disease (ESRD) Impression: Acute and chronic respiratory failure Qualifiers: Respiratory failure complication: hypoxia Qualified Code(s): J96.21 - Acute and chronic respiratory failure with hypoxia
--- NOTE | 2023-05-14 14:00 | Emergency Department Note ---
Impression & Plan Acute and chronic respiratory failure, PNA (pneumonia), Cough with hemoptysis, End-stage renal disease (ESRD) ED Provider Note Provider: Juan Edward MD DATE OF SERVICE: 05/14/2023 CHIEF COMPLAINT: Coughing up blood, short of breath HISTORY OF PRESENT ILLNESS: Patient is a 82-year-old gentleman history of COPD on nightly oxygen, hypertension, CAD, and advanced CKD not currently on dialysis presenting here today referred from the outpatient clinic due to 4 days of coughing up some blood. Feeling more short of breath. Uses oxygen during the day. Noted to be hypoxic on room air. Normally was oxygen at night but not during the day. Denies fever. Denies significant pain. Feeling a bit weak but no falls or trauma reported. Not on anticoagulants or aspirin by report. Little bit of chronic swelling but nothing worsening and is on several diuretics. Did recently have some eye surgery with little bruising to his eyes noted as well as fistula placed in the right upper extremity. No issues with these reported. No history of any recent blood transfusion unsure if he might of had 1 in the Plast. Coughing up some globules of blood fairly regularly the last several days. PAST MEDICAL HISTORY: As noted above MEDICATIONS: Reviewed home medications SOCIAL HISTORY: Former smoker, PHYSICAL EXAM: GENERAL: alert and oriented in no acute distress on stretcher Head: normocephalic and atraumatic EYES: No injection, discharge or icterus. NECK: Trachea midline. ENT: Mucous membranes pink and moist. Pharynx without erythema or exudate. LUNGS: Airway patent. No retractions. Breath sounds coarse with scattered wheezes and diminished bases. HEART: Regular rate and rhythm. No chest wall tenderness ABDOMEN: Soft and non-tender, without guarding or rebound. SKIN: Acyanotic, warm, dry, without rashes EXTREMITIES: 1+ bilateral lower extremity edema. Right upper extremity with upper arm fistula placed with thrill. NEUROLOGICAL: No focal deficits. No aphasia. No facial droop or slurred speech. Ambulatory. EK bpm sinus rhythm with PAC. Right bundle left intraventricular block. PAC noted. No PVC. No acute ST segment elevation or depression with a QTc of 496 CONTINUOUS CARDIAC MONITORING: was ordered and showed a heart rate of 70s-90s bpm in NSR with PAC Patient's laboratory studies and imaging reviewed. Differential includes Reactive airway disease, pneumonia, pneumothorax, COPD, CHF, infections, cardiac ischemia, pulmonary embolism, musculoskeletal, gastrointestinal, as well as other pathologies. IMPRESSION/MEDICAL DECISION MAKING: Patient presents with several days of hemoptysis. Poor renal function at baseline. Question possible infectious etiology. History of smoking also concerns possible mass. Lower suspicion for PE at this time. Will send for noncontrast CT given his poor renal function this time for further elucidation. Blood work to be obtained. Will give nebulized TXA to help with little but hemostasis is having intermittent hemoptysis here. Is mildly hypoxic on room air into the low 80s on room air. Basic labs completed as well as respiratory viral panel. CT of the chest shows bilateral lower lobe opacities may represent infectious or inflammatory process per radiology but recommends follow-up imaging to exclude underlying masses here. Slight leukocytosis. Will send procalcitonin. Renal function slightly worsening from previous. No indication for emergent dialysis at this time. RVP negative. Again doubt significant fluid overload at this point. Will cover with broad-spectrum antibiotics and bring into the hospital for further care and treatment and pulmonary evaluation. DIAGNOSIS: Hemoptysis, pneumonia, ESRD not on HD, acute o chronic hypoxic respiratory failure. DISPOSITION: Hospitalist will evaluate Patient was agreeable with this plan. Past Med/Surg History Medical History Adjustment disorder with mixed disturbance of emotions and conduct Anemia of chronic renal failure Hgb 8-9's per record review BPH (benign prostatic hyperplasia) Carotid stenosis, right 50-69% stenosis to right ICA; <50% stenosis to left ICA per 06/22/21 carotid duplex Chronic hypoxemic respiratory failure CKD (chronic kidney disease) stage 4, GFR 15-29 ml/min FOLLOWED BY JOEL [facility]IVERA>HAS NOT STARTED DIALYSIS YET COPD (chronic obstructive pulmonary disease) Coronary artery disease S/p stent 1998 Dyslipidemia History of basal cell carcinoma History of COVID-19 02/02/22>STILL HAS FATIGUE History of WA (myocardial infarction) 1998 History of stroke 2017 OR 2018 >NO RESIDUAL HTN (hypertension) Hx of blood clots "IN MY LEGS AND 1 IN MY LUNGS A LONG TIME AGO">WAS ON BLOOD THINNERS, CAUSED BY PHLEBITIS MOLLY and COPD overlap syndrome WEARS 4L O2 AT HS Papillary renal cell carcinoma WITH MALIGNANCY>NO TREATMENT YET (CURRENT DX) Prediabetes PT DENIES Renal osteodystrophy Urinary frequency Surgical History History of anesthesia reaction SLOW TO WAKE UP History of appendectomy History of arthroscopy LEFT KNEE History of cataract surgery RT/LEFT History of cholecystectomy History of colonoscopy History of heart artery stent 1998>? # STENTS PLAC[facility] IN [facility] (FOLLWED BY DR. JACK SOUSA [facility]) History of tonsillectomy History of tooth extraction Family History Other Colorectal cancer No family history of adverse response to anesthesia Social History Smoking Status: Never smoker Second Hand Exposure: No; Do You Dip or Chew Tobacco: No; Hx Alcohol Use: Yes Alcohol type: beer Hx Substance Use: No Preferred Language: Welsh Communication Ability: Effective Binder Layer Required: No Beliefs That Will Affect Care: None Current Living Situation: Spouse Feels Safe at Home: Yes Assistive Devices: Cane, Glasses and Oxygen - at Night Allergies Allergies Allergy/AdvReac Type Severity Reaction Status Date / Time No Known Allergies Allergy Verified 06/26/22 11:36 Home Meds Home Medications Medication Instructions Recorded Confirmed carvedilol 3.125 mg tablet (Coreg) 3.125 mg PO BID 02/01/22 05/14/23 nifedipine 60 mg tablet,extended 60 mg PO BID 02/01/22 05/14/23 release 24 hr (Procardia XL) trazodone 50 mg tablet 50 mg PO HS 02/01/22 06/26/22 venlafaxine 37.5 mg 37.5 mg PO DAILY 02/01/22 05/14/23 capsule,extended release 24 hr (Effexor XR) albuterol sulfate 90 mcg/actuation 1 inh inhalation QID PRN sob 06/19/22 06/26/22 aerosol inhaler furosemide 40 mg tablet (Lasix) 40 mg PO QAM 06/19/22 05/14/23 ipratropium 0.5 mg-albuterol 3 mg 3 ml inhalation Q4H PRN sob 06/19/22 06/26/22 (2.5 mg base)/3 mL nebulization soln melatonin 10 mg capsule 10 mg PO HS 06/19/22 05/14/23 sodium bicarbonate 650 mg tablet 1,300 mg PO AMHS 06/19/22 05/14/23 tamsulosin 0.4 mg capsule (Flomax) 0.4 mg PO QAM 06/19/22 05/14/23 furosemide 20 mg tablet 20 mg PO QAM 05/14/23 05/14/23 hydralazine 10 mg tablet 10 mg PO AMHS 05/14/23 05/14/23 hydroxyzine HCl 50 mg tablet 50 mg PO HS PRN Insomnia 05/14/23 05/14/23 rosuvastatin 10 mg tablet 10 mg PO QAM 05/14/23 05/14/23 Results & Data (ED) Vital Signs Vital Signs - 24 hr 05/14/23 13:27 05/14/23 13:34 05/14/23 14:14 Temperature 36.9 C Temperature Source Temporal Artery Scan Pulse Rate 93 H 94 H Respiratory Rate 25 H Blood Pressure 117/65 Blood Pressure Mean 82 Pulse Oximetry 83 L 90 Oxygen Delivery Method Room Air Nasal Cannula Oxygen Flow Rate 4 Sepsis Recent Fever Within 48 Hours No Sepsis New/Unexplained Change in Mental Status N/A Sepsis Action Taken by Nursing No Action Required 05/14/23 14:29 Temperature Temperature Source Pulse Rate Respiratory Rate Blood Pressure Blood Pressure Mean Pulse Oximetry 95 Oxygen Delivery Method Nasal Cannula Oxygen Flow Rate 4 Sepsis Recent Fever Within 48 Hours Sepsis New/Unexplained Change in Mental Status Sepsis Action Taken by Nursing Laboratory Data 05/14/23 14:13 05/14/23 14:13 Lab Results 05/14/23 05/14/23 Range/Units 14:13 14:30 WBC 11.79 H (4.8-10.8) K/ul RBC 3.44 L (4.70-6.10) M/uL Hgb 8.7 L (14.0-18.0) g/dl Hct 28.6 L (42.0-52.0) % MCV 83.1 (80.0-100.0) fL MCH 25.3 (25.0-34.0) pg MCHC 30.4 L (32.0-36.0) g/dL RDW Std Deviation 46.5 H (36.4-46.3) fL RDW Coeff of John 15.6 H (11.5-14.5) % Plt Count 162 (130-400) K/uL MPV 10.4 (9.4-12.4) fL Immature Gran % (Auto) 0.6 % Neut % (Auto) 86.9 % Lymph % (Auto) 3.8 % [place] % (Auto) 7.5 % Eos % (Auto) 0.9 % Baso % (Auto) 0.3 % Neut # (Auto) 10.23 H (1.40-6.50) K/uL Lymph # (Auto) 0.45 L (1.20-3.40) K/uL [place] # (Auto) 0.89 H (0.11-0.59) K/uL Eos # (Auto) 0.11 (0.00-0.50) K/uL Baso # (Auto) 0.04 (0.00-0.20) K/uL Immature Gran # (Auto) 0.07 (0.01-0.20) K/uL PT 12.4 H (9.0-12.0) Seconds INR 1.1 (0.9-1.1) APTT 31 (21-31) Seconds PTT Ratio 1.1 Sodium 141 (136-145) mmol/L Potassium 4.2 (3.5-5.1) mmol/L Chloride 103 (98-107) mmol/L Carbon Dioxide 30 (21-32) mmol/L Anion Gap 8 (3-11) BUN 80 H (6-23) mg/dl Creatinine 4.54 H* (0.6-1.4) mg/dl Est Cr Clr Drug Dosing Not Reportable Est GFR ( Amer) 13.0 ml/min Est GFR (Non-Af Amer) 11.2 ml/min BUN/Creatinine Ratio 17.6 (10-20) Glucose 143 H (70-99(Fasting)) mg/dl Calcium 8.4 L (8.6-10.3) mg/dl Magnesium 1.9 (1.7-2.4) mg/dl Total Bilirubin 0.5 (0.2-1.0) mg/dl AST 12 L (13-39) U/L ALT 9 (7-52) U/L Alkaline Phosphatase 50 (34-104) U/L Troponin I High Sens 17.2 (0-20) pg/ml Total Protein 6.8 (6.0-8.3) gm/dl Albumin 3.7 (3.4-5.0) gm/dl Globulin 3.1 (2.5-4.0) gm/dl Albumin/Globulin Ratio 1.2 (0.9-2) Procalcitonin 0.35 (0-0.5) ng/ml Adenovirus (PCR) Not Detected (NotDetected) B. pertussis DNA (PCR) Not Detected (NotDetected) B.parapertussis DNA PCR Not Detected (NotDetected) C. pneumoniae DNA (PCR) Not Detected (NotDetected) Coronavirus OC43 (PCR) Not Detected (NotDetected) Coronavirus HKU1 (PCR) Not Detected (NotDetected) Coronavirus 229E (PCR) Not Detected (NotDetected) SARS-CoV-2 (PCR) Not Detected (NotDetected) Coronavirus NL63 (PCR) Not Detected (NotDetected) Human Metapneumovir PCR Not Detected (NotDetected) Influenza Type A (PCR) Not Detected (NotDetected) Influenza Type B (PCR) Not Detected (NotDetected) M. pneumoniae (PCR) Not Detected (NotDetected) Parainfluenza 1 (PCR) Not Detected (NotDetected) Parainfluenza 2 (PCR) Not Detected (NotDetected) Parainfluenza 3 (PCR) Not Detected (NotDetected) Parainfluenza 4 (PCR) Not Detected (NotDetected) RSV (PCR) Not Detected (NotDetected) Entero/Rhino (PCR) Not Detected (NotDetected) Blood Type O Negative Antibody Screen NEGATIVE Administered Medications Discontinued Medications Albuterol (Albut/Ipratrop 3mg/0.5mg Neb 3 Ml Vial) 3 ml NEB NOW STA; Protocol Stop: 05/14/23 15:06 Last Admin: 05/14/23 15:37 Dose: 3 ml Documented By: NRB Piperacillin Sod/Tazobactam Sod (Zosyn) 4.5 gm in 100 mls @ 200 mls/hr IV NOW ONE Stop: 05/14/23 15:34 Last Admin: 05/14/23 16:36 Dose: 200 mls/hr Documented By: NRB Tranexamic Acid (Txa 10% Non-Iv Routes 100 Mg/Ml Vial) 1,000 mg TOP ONE ONE Stop: 05/14/23 13:48 Last Admin: 05/14/23 14:16 Dose: 1,000 mg Documented By: ELVA Imaging Data Radiologist's Impression: Chest CT 05/14/23 13:47 CT chest diagnostic wo con CLINICAL HISTORY: hemoptysis TECHNIQUE: Multidetector row helical CT of the chest was performed. Coronal and sagittal reformations were obtained. Automated dose lowering techniques and/or adjustment according to patient size were utilized for this exam. CT DOSE: 800.82 mGy.cm Comparison: None available at the time of this dictation. FINDINGS: Lungs and pleura: Airspace opacities are seen in the right greater than left lower lobes with some solid nodular appearing densities. No suspicious pulmonary nodules. Heart and pericardium: Cardiomegaly is seen with biatrial enlargement. Vessels: Severe atherosclerotic changes in the aorta and coronary arteries. Pulmonary trunk measures 40 mm. Mediastinum and apolonia: Subcentimeter lymph nodes are seen. Chest wall and lower neck: Unremarkable. Abdomen: Patient is status post cholecystectomy. Bones: Degenerative changes in the thoracic spine. IMPRESSION: Airspace opacity is seen in the bilateral lower lobes. Findings may represent infectious/inflammatory process, however follow-up to resolution is recommended to exclude underlying masses. ACT 112: Negative or not required by law. Electronically signed by: Elio Pacheco M.D. 05/14/2023 2:27 PM Discharge Plan Visit Data Chief Complaint: Referred by Doctor Stated Complaint: DX PNEUMONIA 05/14/23 - REFERRED BY ED Provider: Juan Edward Discharge Problem: Acute and chronic respiratory failure, PNA (pneumonia), Cough with hemoptysis, End-stage renal disease (ESRD) Patient Disposition: Being Evaluated by Hospitalist Forms Stand Alone Forms: My [facility] [place] [employer] Prescriptions Prescriptions: No Action venlafaxine [Effexor XR] 37.5 mg Capsule,Extended Release 24hr 37.5 mg PO DAILY trazodone 50 mg Tablet 50 mg PO HS carvedilol [Coreg] 3.125 mg Tablet 3.125 mg PO BID Rx Instructions: must administer with a meal/food nifedipine [Procardia XL] 60 mg Tablet Extended Release 24hr 60 mg PO BID furosemide [Lasix] 40 mg Tablet 40 mg PO QAM Rx Instructions: take along with 20 mg for a total dose of 60 mg ipratropium-albuterol 0.5 mg-3 mg(2.5 mg base)/3 mL Solution For Nebulization 3 ml INHALATION Q4H PRN (Reason: sob) tamsulosin [Flomax] 0.4 mg Capsule 0.4 mg PO QAM sodium bicarbonate 650 mg Tablet 1,300 mg PO AMHS albuterol sulfate 90 mcg/actuation Hfa Aerosol Inhaler 1 inh INHALATION QID PRN (Reason: sob) melatonin 10 mg Capsule 10 mg PO HS furosemide 20 mg Tablet 20 mg PO QAM Rx Instructions: take along with 40 mg = 60 mg total dose rosuvastatin 10 mg Tablet 10 mg PO QAM hydralazine 10 mg Tablet 10 mg PO AMHS hydroxyzine HCl 50 mg Tablet 50 mg PO HS PRN (Reason: Insomnia) Referrals Referrals: Jody Arora MD [Primary Care Provider] - Discharge Problem: Acute and chronic respiratory failure Qualifiers: Respiratory failure complication: hypoxia Qualified Code(s): J96.21 - Acute and chronic respiratory failure with hypoxia
[2023-05-14] MEDS: TXA 10% Non-IV Routes 100 MG/ML VIAL TOP ONE (14:16)
[2023-05-14 14:27] LABS: Basophils # (auto) 0.04 K/uL (0.00-0.20); Basophils % (auto) 0.3 %; Eosinophils # (auto) 0.11 K/uL (0.00-0.50); Eosinophils % (auto) 0.9 %; Hematocrit (blood only) 28.6 % (42.0-52.0); Hemoglobin 8.7 g/dl (14.0-18.0); Immature Granulocytes # (auto) 0.07 K/uL (0.01-0.20); Immature Granulocytes % (auto) 0.6 %; Lymphocytes # (auto) 0.45 K/uL (1.20-3.40); Lymphocytes % (auto) 3.8 %; Mean Corpuscular Hemoglobin 25.3 pg (25.0-34.0); Mean Corpuscular Hgb Conc 30.4 g/dL (32.0-36.0); Mean Corpuscular Volume 83.1 fL (80.0-100.0); Mean Platelet Volume 10.4 fL (9.4-12.4); Monocytes # (auto) 0.89 K/uL (0.11-0.59); Monocytes % (auto) 7.5 %; Neutrophils # (auto) 10.23 K/uL (1.40-6.50); Neutrophils % (auto) 86.9 %; Platelet Count 162 K/uL (130-400); RDW Coefficient of Variation 15.6 % (11.5-14.5); RDW Standard Deviation 46.5 fL (36.4-46.3); Red Blood Count 3.44 M/uL (4.70-6.10); White Blood Count 11.79 K/ul (4.8-10.8)
--- NOTE | 2023-05-14 14:28 | CT Scan Report ---
CT chest diagnostic wo con CLINICAL HISTORY: hemoptysis TECHNIQUE: Multidetector row helical CT of the chest was performed. Coronal and sagittal reformations were obtained. Automated dose lowering techniques and/or adjustment according to patient size were u tilized for this exam. CT DOSE: 800.82 mGy.cm Comparison: None available at the time of this dictation. FINDINGS: Lungs and pleura: Airspace opacities are seen in the right greater than left lower lobes with some so lid nodular appearing densities. No suspicious pulmonary nodules. Heart and pericardium: Cardiomegaly is seen with biatrial enlargement. Vessels: Severe atherosclerotic changes in the aorta and coronary arteries. Pulmonary trunk measures 40 mm. Mediastinum and apolonia: Subcentimeter lymph nodes are seen. Chest wall and lower neck: Unremarkable. Abdomen: Patient is status post cholecystectomy. Bones: Degenerative changes in the thoracic spine. IMPRESSION: Airspace opacity is seen in the bilateral lower lobes. Findings may represent infectious/inflammatory process, however follow-up to resolution is recommended to exclude underlying masses. ACT 112: Negative or not required by law. Electronically signed by: Elio Pacheco M.D. 05/14/2023 2:27 PM
[2023-05-14 14:52] LABS: Alanine Aminotransferase 9 U/L (7-52); Albumin Globulin Ratio 1.2 (0.9-2); Albumin Level 3.7 gm/dl (3.4-5.0); Alkaline Phosphatase 50 U/L (34-104); Anion Gap 8 (3-11); Aspartate Aminotransferase 12 U/L (13-39); BUN Creatinine Ratio 17.6 (10-20); Bilirubin,Total 0.5 mg/dl (0.2-1.0); Blood Urea Nitrogen 80 mg/dl (6-23); Calcium 8.4 mg/dl (8.6-10.3); Carbon Dioxide 30 mmol/L (21-32); Chloride 103 mmol/L (98-107); Est GFR (Non-African American) 11.2 ml/min; Globulin 3.1 gm/dl (2.5-4.0); Glucose 143 mg/dl (70-99(Fasting)); Magnesium 1.9 mg/dl (1.7-2.4); Potassium 4.2 mmol/L (3.5-5.1); Sodium 141 mmol/L (136-145); Total Protein 6.8 gm/dl (6.0-8.3); Troponin I High Sensitivity 17.2 pg/ml (0-20)
[2023-05-14 14:56] LABS: INR 1.1 (0.9-1.1); Partial Thromboplastin Ratio 1.1; Partial Thromboplastin Time 31 Seconds (21-31); Prothrombin Time 12.4 Seconds (9.0-12.0)
[2023-05-14] MEDS: ALBUT/IPRATROP 3MG/0.5MG NEB 3 ML VIAL NEB STA (15:37)
[2023-05-14 15:43] LABS: Adenovirus PCR Not Detected (NotDetected); Bordetella parapertussis PCR Not Detected (NotDetected); Bordetella pertussis PCR Not Detected (NotDetected); Chlamydia pneumoniae PCR Not Detected (NotDetected); Coronavirus 229E PCR Not Detected (NotDetected); Coronavirus CoV-2 (COVID19)PCR Not Detected (NotDetected); Coronavirus HKU1 PCR Not Detected (NotDetected); Coronavirus NL63 PCR Not Detected (NotDetected); Coronavirus OC43PCR Not Detected (NotDetected); Human Metapneumovirus PCR Not Detected (NotDetected); Influenza A PCR Not Detected (NotDetected); Influenza B PCR Not Detected (NotDetected); Mycoplasma pneumoniae PCR Not Detected (NotDetected); Parainfluenza Virus 1 PCR Not Detected (NotDetected); Parainfluenza Virus 2 PCR Not Detected (NotDetected); Parainfluenza Virus 3 PCR Not Detected (NotDetected); Parainfluenza Virus 4 PCR Not Detected (NotDetected); Respiratory Syncytial VirusPCR Not Detected (NotDetected); Rhinovirus/Enterovirus PCR Not Detected (NotDetected)
--- NOTE | 2023-05-14 16:09 | History & Physical Report ---
Date of Service May 14, 2023 Assessment & Plan (1) Cough with hemoptysis: (2) Acute and chronic respiratory failure: (3) COPD (chronic obstructive pulmonary disease): (4) CKD (chronic kidney disease) stage 4, GFR 15-29 ml/min: Plan Mr. Pinedo is an 82 year old gentleman with history of CAD s/p stent,ESRD with AVF, COPD(wears nocturnal [id number]), MOLLY, HTN, carotid stenosis, HTN, DDD, anemia, anxiety, CVA with R sided weakness, COVID infection (02/2021), prediabetes, BPH, hx of RLE DVT and PE (was on coumadin)presented to [facility] ED due to 3 days of hemoptysis. 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, quit >[address] with bilateral reticular infiltrates, emphysematous changes -Continue Spiriva and Advair -Duonebs prn -Not on CPAP, continuous O2 4L with increased requirements Advair and Rescue Albuterol #HTN -Continue hydralazine 10mg BID -Continue nifedipine 60mg BID and coreg 3.125 BID #CKD #Left renal mass, RCC #Azotemia Matured AVF, plans for ICHD when necessary, not transplant candidate Seems mildly overloaded; denies decreasing UOP with lasix dosing of 40mg BID -Place thao cath -continue bicarb 650 BID -Nephrology consult for diuresis guidance -Daily weights #CAD s/p stent 1998 #Carotid stenosis, right #HLD Continue statin, coreg, bp control as above Hold asa #BPH continue tamsulosin #Mood d/o -continue venlafaxine, hydroxyzine Admission and Anticipated Discharge Date Admission Date: Time spent evaluating patient, direct bedside care, chart review, placing orders, interpretation of diagnostic studies, discussion with consultants, patient, and family members, as well as other required patient management activities is 60 minutes. History of Present Illness Chief Complaint: Hemoptysis Primary Care Provider: Jody Arora MD Mr. Pinedo is an 82 year old gentleman with history of CAD s/p stent,ESRD with AVF, COPD(wears nocturnal [id number]), MOLLY, HTN, carotid stenosis, HTN, DDD, anemia, anxiety, CVA with R sided weakness, COVID infection (02/2021), prediabetes, BPH, hx of RLE DVT and PE (was on coumadin)presented to [facility] ED due to 3 days of hemoptysis. Patient states that for last 2 weeks he has experienced upper respiratory infection--with increased cough and sputum production; however, on Saturday his sputum was noted to have salvador blood and able to be quantified in teaspoons her patient report. Patient denies fevers or chills. Patient reports history of fungal pneumonia, which he was notably "more sick" and without hemoptysis Patient notes history of RCC, for which he has not undergone treatment. Patient states that his oxygen requirements have been increasing for last year he feels. Labs with leukocytosis to 11.79, stable anemia of 8.7, elevated BUN 80, Cr 4.54, BNP 123 In the ED, vitals were notable for BP of 110-130s, HR of 80s, and O2 sat of mid 90s 4 L NC Imaging revealed Airspace opacities are seen in the right greater than left lower lobes with some solid nodular appearing densities EKG with bifascicular block, PACs ED interventions: carol Morales Consultants: Nephrology, Pulm Patient to be admitted to PCU tele for further evaluation and management of acute on chronic hypoxic resp failure and hemoptysis Allergies Allergy/AdvReac Type Severity Reaction Status Date / Time No Known Allergies Allergy Verified 06/26/22 11:36 Home Medications Medication Instructions Recorded Confirmed Type carvedilol 3.125 mg tablet (Coreg) 3.125 mg PO BID 02/01/22 05/14/23 History nifedipine 60 mg tablet,extended 60 mg PO BID 02/01/22 05/14/23 History release 24 hr (Procardia XL) venlafaxine 37.5 mg 37.5 mg PO DAILY 02/01/22 05/14/23 History capsule,extended release 24 hr (Effexor XR) furosemide 40 mg tablet (Lasix) 40 mg PO QAM 06/19/22 05/14/23 History melatonin 10 mg capsule 10 mg PO HS 06/19/22 05/14/23 History sodium bicarbonate 650 mg tablet 1,300 mg PO AMHS 06/19/22 05/14/23 History tamsulosin 0.4 mg capsule (Flomax) 0.4 mg PO QAM 06/19/22 05/14/23 History albuterol sulfate 2.5 mg/3 mL 2.5 mg inhalation UD 05/14/23 05/14/23 History (0.083 %) solution for nebulization albuterol sulfate 5 mg/mL(0.5 %) 2.5 mg inhalation UD 05/14/23 05/14/23 History solution for nebulization erythromycin 5 mg/gram (0.5 %) eye 0.25 inch ophthalmic (eye) QID 05/14/23 05/14/23 History ointment fluticasone 250 mcg-salmeterol 50 1 inh inhalation AMHS 05/14/23 05/14/23 History mcg/dose blistr powdr for inhalation (Advair Diskus) furosemide 20 mg tablet 20 mg PO QAM 05/14/23 05/14/23 History hydralazine 10 mg tablet 10 mg PO AMHS 05/14/23 05/14/23 History hydroxyzine HCl 50 mg tablet 50 mg PO HS PRN Insomnia 05/14/23 05/14/23 History menthol 0.44 %-zinc oxide 20.6 % 1 applic topical BID 05/14/23 05/14/23 History topical ointment (Calmoseptine) nitroglycerin 0.4 mg sublingual 0.4 mg sublingual UD PRN Chest Pain 05/14/23 05/14/23 History tablet (Nitrostat) rosuvastatin 10 mg tablet 10 mg PO QAM 05/14/23 05/14/23 History tiotropium bromide 2.5 2 inh inhalation QAM 05/14/23 05/14/23 History mcg/actuation mist for inhalation (Spiriva Respimat) Past Med/Surg History Medical History Adjustment disorder with mixed disturbance of emotions and conduct Anemia of chronic renal failure Hgb 8-9's per record review BPH (benign prostatic hyperplasia) Carotid stenosis, right 50-69% stenosis to right ICA; <50% stenosis to left ICA per 06/22/21 carotid duplex Chronic hypoxemic respiratory failure CKD (chronic kidney disease) stage 4, GFR 15-29 ml/min FOLLOWED BY JOEL RIVERA>HAS NOT STARTED DIALYSIS YET COPD (chronic obstructive pulmonary disease) Coronary artery disease S/p stent 1998 Dyslipidemia History of basal cell carcinoma History of COVID-19 02/02/22>STILL HAS FATIGUE History of HI (myocardial infarction) 1998 History of stroke 2016 OR 2017 >NO RESIDUAL HTN (hypertension) Hx of blood clots "IN MY LEGS AND 1 IN MY LUNGS A LONG TIME AGO">WAS ON BLOOD THINNERS, CAUSED BY PHLEBITIS MOLLY and COPD overlap syndrome WEARS 4L O2 AT HS Papillary renal cell carcinoma WITH MALIGNANCY>NO TREATMENT YET (CURRENT DX) Prediabetes PT DENIES Renal osteodystrophy Urinary frequency Surgical History History of anesthesia reaction SLOW TO WAKE UP History of appendectomy History of arthroscopy LEFT KNEE History of cataract surgery RT/LEFT History of cholecystectomy History of colonoscopy History of heart artery stent 1998>? # STENTS PLACED IN [facility] (FOLLWED BY DR. JACK SOUSA [facility]) History of tonsillectomy History of tooth extraction Family History Other Colorectal cancer No family history of adverse response to anesthesia Social History Smoking Status: Never smoker Second Hand Exposure: No; Do You Dip or Chew Tobacco: No; Hx Alcohol Use: Yes Alcohol type: beer Hx Substance Use: No Preferred Language: Bermudian Communication Ability: Effective [employer] Dean Required: No Beliefs That Will Affect Care: None Current Living Situation: Spouse Feels Safe at Home: Yes Assistive Devices: Cane, Glasses and Oxygen - at Night Review of Systems Review of Systems: Constitutional: (-) fever/chills, (-) recent loss of weight, (-) appetite changes, (-) night sweats. Head: (-) headache, (-) dizziness. Eye: (-) blurring of vision, (-) double vision, (-) redness. Ear: (-) hearing loss, (-) discharge, (-) vertigo Nose: (-) discharge, (-) bleeding, (-) congestion, (-) post nasal drip. Throat: (-) sore throat, (-) hoarseness of voice, (-) odynophagia. Cardiovascular: (-) chest pain, (-) palpitations, (-) syncope, (-) orthopnea, (- ) PND, (-) leg swelling. Respiratory: (-) shortness of breath, (-) cough, (-) wheezing, (-) hemoptysis. Neuro: (-) weakness in extremities, (-) numbness, (-) tingling, (-) tremor. Gastrointestinal: (-) belly pain, (-) belly distension, (-) nausea, (-) vomiting, (-) diarrhea, (-) constipation, (-) na, (-) hematemesis, (-) hematochezia, (-) bowel incontinence Genitourinary: (-) hematuria, (-) dysuria, (-) polyuria, (-) hesitancy, (-) frequency, (-) urinary incontinence. Musculoskeletal: (-) myalgia, (-) arthralgia. Skin: (-) rashes. Endocrine: (-) heat/cold intolerance. Psychiatry: (-) depression, (-) hallucination. Physical Exam Physical Exam: GENERAL APPEARANCE: AxOx4, generally well-appearing male, no acute distress. HEENT: NC, AT. MMM. bilateral ecchymosis around orbits with scleral injection s/p cataract surgery last week NECK: Supple without lymphadenopathy. No stiffness or restricted ROM. HEART: Normal rate and regular rhythm, normal S1/S1, no m/r/g LUNGS: rhonchorous breath sounds, crackles ABDOMEN: Soft, nontender, nondistended with good bowel sounds heard. BACK: No CVAT, no obvious deformity. EXTREMITIES: Without cyanosis, clubbing or edema. NEUROLOGICAL: Grossly nonfocal. Alert and oriented, moving all 4 extremities. CN not formally tested but appear grossly intact. Skin: Warm and dry without any rash. Results & Data Results & Data Vital Signs (Past 12 Hours) Vital Signs Temp Pulse Resp BP Pulse Ox O2 Del Method O2 Flow Rate 05/14/23 14:29 95 Nasal Cannula 4 05/14/23 14:14 94 H 05/14/23 13:34 90 Nasal Cannula 4 05/14/23 13:27 36.9 C 93 H 25 H 117/65 83 L Room Air Laboratory Results Short CBC 05/14/23 Range/Units 14:13 WBC 11.79 H (4.8-10.8) K/ul Hgb 8.7 L (14.0-18.0) g/dl Hct 28.6 L (42.0-52.0) % Plt Count 162 (130-400) K/uL BMP 05/14/23 14:13 Sodium 141 Potassium 4.2 Chloride 103 Carbon Dioxide 30 BUN 80 H Creatinine 4.54 H* Glucose 143 H Calcium 8.4 L Liver Function 05/14/23 Range/Units 14:13 Total Bilirubin 0.5 (0.2-1.0) mg/dl AST 12 L (13-39) U/L ALT 9 (7-52) U/L Alkaline Phosphatase 50 (34-104) U/L Albumin 3.7 (3.4-5.0) gm/dl Diagnostic Findings Chest CT 05/14/23 13:47 CT chest diagnostic wo con CLINICAL HISTORY: hemoptysis TECHNIQUE: Multidetector row helical CT of the chest was performed. Coronal and sagittal reformations were obtained. Automated dose lowering techniques and/or adjustment according to patient size were utilized for this exam. CT DOSE: 800.82 mGy.cm Comparison: None available at the time of this dictation. FINDINGS: Lungs and pleura: Airspace opacities are seen in the right greater than left lower lobes with some solid nodular appearing densities. No suspicious pulmonary nodules. Heart and pericardium: Cardiomegaly is seen with biatrial enlargement. Vessels: Severe atherosclerotic changes in the aorta and coronary arteries. Pulmonary trunk measures 40 mm. Mediastinum and apolonia: Subcentimeter lymph nodes are seen. Chest wall and lower neck: Unremarkable. Abdomen: Patient is status post cholecystectomy. Bones: Degenerative changes in the thoracic spine. IMPRESSION: Airspace opacity is seen in the bilateral lower lobes. Findings may represent infectious/inflammatory process, however follow-up to resolution is recommended to exclude underlying masses. ACT 112: Negative or not required by law. Electronically signed by: Elio Pacheco M.D. 05/14/2023 2:27 PM Medications Administered Home Medications Medication Instructions Recorded Confirmed Last Taken carvedilol 3.125 mg tablet (Coreg) 3.125 mg PO BID 02/01/22 05/14/23 06/26/22 09:00 nifedipine 60 mg tablet,extended 60 mg PO BID 02/01/22 05/14/23 06/26/22 09:00 release 24 hr (Procardia XL) venlafaxine 37.5 mg 37.5 mg PO DAILY 02/01/22 05/14/23 06/26/22 08:00 capsule,extended release 24 hr (Effexor XR) furosemide 40 mg tablet (Lasix) 40 mg PO QAM 06/19/22 05/14/23 06/25/22 09:00 melatonin 10 mg capsule 10 mg PO 06/19/22 05/14/23 06/25/22 20:00 sodium bicarbonate 650 mg tablet 1,300 mg PO [facility] 06/19/22 05/14/23 06/25/22 20:00 tamsulosin 0.4 mg capsule (Flomax) 0.4 mg PO QAM 06/19/22 05/14/23 06/26/22 09:00 albuterol sulfate 2.5 mg/3 mL 2.5 mg inhalation UD 05/14/23 05/14/23 Unknown (0.083 %) solution for nebulization albuterol sulfate 5 mg/mL(0.5 %) 2.5 mg inhalation UD 05/14/23 05/14/23 Unknown solution for nebulization erythromycin 5 mg/gram (0.5 %) eye 0.25 inch ophthalmic (eye) QID 05/14/23 05/14/23 Unknown ointment fluticasone 250 mcg-salmeterol 50 1 inh inhalation AMHS 05/14/23 05/14/23 Unknown mcg/dose blistr powdr for inhalation (Advair Diskus) furosemide 20 mg tablet 20 mg PO QAM 05/14/23 05/14/23 Unknown hydralazine 10 mg tablet 10 mg PO AMHS 05/14/23 05/14/23 Unknown hydroxyzine HCl 50 mg tablet 50 mg PO HS PRN Insomnia 05/14/23 05/14/23 Unknown menthol 0.44 %-zinc oxide 20.6 % 1 applic topical BID 05/14/23 05/14/23 Unknown topical ointment (Calmoseptine) nitroglycerin 0.4 mg sublingual 0.4 mg sublingual UD PRN Chest Pain 05/14/23 05/14/23 Unknown tablet (Nitrostat) rosuvastatin 10 mg tablet 10 mg PO QAM 05/14/23 05/14/23 Unknown tiotropium bromide 2.5 2 inh inhalation QAM 05/14/23 05/14/23 Unknown mcg/actuation mist for inhalation (Spiriva Respimat) (2) Acute and chronic respiratory failure Respiratory failure complication: hypoxia Qualified Code(s): J96.21 - Acute and chronic respiratory failure with hypoxia
[2023-05-14] MEDS: PIPERACILLIN/TAZOBACTAM 4.5 GM/100 ML BAG IV ONE (16:36)
[2023-05-14] MEDS: FUROSEMIDE 40 MG/4 ML VIAL IV SCH (20:17)
[2023-05-14] MEDS: AMPICILLIN SOD/SULBACTAM SOD 1,500 MG in SODIUM CHLOR 0.9% MINI-B 100 ML IV SCH (20:17)
[2023-05-14 20:59] LABS: Appearance Urine Clear (Clear); Bilirubin Urine Negative (Negative); Blood Urine Negative (Negative); Color Urine Yellow; Glucose Urine UA Negative (Negative); Ketones Urine Negative (Negative); Leukocyte Esterase Urine Negative (Negative); Nitrite Urine Negative (Negative); Protein Urine Negative (Negative); Specific Gravity Urine 1.012 (1.000-1.030); Urobilinogen Urine Negative (Negative); pH Urine 5.5 (4.5-7.5)
[2023-05-14] MEDS ORDERED: ERYTHROMYCIN OP OINT 5 MG/GM 3.5 GM TUBE OP SCH (21:17)
[2023-05-14] MEDS ORDERED: NITROGLYCERIN SL 0.4 MG/TAB TAB SL PRN (21:17)
[2023-05-14] MEDS: MELATONIN 3 MG TAB PO SCH (22:36)
[2023-05-14] MEDS: hydrALAZINE 10 MG TAB PO SCH (22:37)
[2023-05-14] MEDS: ROSUVASTATIN CALCIUM 10 MG TAB PO SCH (22:37)
[2023-05-14] MEDS: carvediloL 3.125 MG TAB PO SCH (22:38)
[2023-05-14] MEDS: SODIUM BICARBONATE 650 MG TAB PO SCH (22:38)
--- OUTSIDE RECORDS SUMMARY | 2023-05-15 03:26 | External Medical Summary | Summary of Care ---
Author Name Unknown Organization [facility] Address [address] [place] [address] Phone [phone] Care Team Providers Care Manager Oncology Name Role Phone London Arora MD Primary Care Provide r Reason for Visit * Reason Comments eRx-Medication Refill Encounter Details Date Type Department Care Team (Late st Contact Info) Description 05/11/2023 Refill Family Medicine [address] [place] [address] London Arora MD [address] [place] [address] [place] [address] Primary insomnia Allergies No known active allergiesdocumented as of this encounter (statuses as of 05/13/2023) Medications Medication Sig Dispensed Refills Start Date End Date Status nitroglycerin (NITROSTAT) 0.4 MG SUBL 1 Tablet. 0 9 Active Ventolin HFA 108 (90 Base) MCG/ACT Inhalation Aerosol SolutionIndications :COPD exacerbation (HCC) Inhale by mouth 2 Puffs every 4 hours as needed for Wheezing. 18 g 1 2 Active Additional Information Patient not taking.Reported on 04/24/2023 Albuterol Sulfate (2.5 MG/3ML) 0.083% Inhalation Nebulization Solution (Proventil)Indicati ons:Pneumonia due to COVID-19 virus Inhale 1 Vial (2.5 mg) via nebulizer every 6 hours as needed for Wheezing. 360 mL 0 2 Active Additional Information Patient not taking.Reported on 04/24/2023 Melatonin 10 MG Oral Capsule Take 1 Capsule by mouth at bedtime. 0 Active Ipratropium-Albuter ol 0.5-2.5 (3) MG/3ML Inhalation Solution (Duoneb)Indications :Chronic hypoxemic respiratory failure (HCC),COPD, group C, by GOLD 2017 classification (HCC) Inhale 3 mL via nebulizer every 4 hours as needed for Wheezing. 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 DO NOT CHEW,CRUSH OR CUT 90 Capsule 3 3 Active Menthol-Zinc Oxide 0.44-20.6 % External Ointment (Calmoseptine)Indic ations:Tinea cruris Apply to sore skin twice a day. 71 g 2 3 Active NIFEdipine ER 60 MG Oral Tablet Extended Release 24 Hour (Adalat CC) TAKE 1 TABLET BY MOUTH TWICE DAILY (MORNING AND BEFORE BEDTIME) 60 Tablet 11 3 Active Tamsulosin HCl 0.4 MG Oral Capsule (Flomax)Indications :BPH without obstruction/lower urinary tract symptoms Take 1 capsule by mouth in the morning 90 Capsule 1 3 Active predniSONE 10 MG Oral Tablet (Deltasone)Indicati ons:COPD exacerbation (HCC) Take 5 tabs for 2 days, 4 tabs for 2 days, 3 tabs for 2 days, 2 tabs for 2 days 1 tab for 2 days 30 Tablet 0 3 Active Additional Information Patient not taking.Reported on 04/11/2023 Furosemide 20 MG Oral Tablet (Lasix) Take 1 Tablet by mouth in the morning. Along with one 40mg tablet to equal 60mg total daily.. 90 Tablet 3 3 Active Furosemide 20 MG Oral Tablet (Lasix) Take 1 Tablet by mouth in the morning. Along with one 40 mg tablet. 30 Tablet 5 3 Active Fluticasone-[place] rol 250-50 MCG/ACT Inhalation Aerosol Powder Breath Activated (Advair Diskus)Indications: COPD, group C, by GOLD 2017 classification ([facility]) Inhale 1 Puff by mouth in the morning and 1 Puff before bedtime. 60 Each 1 4 Active hydrALAZINE HCl 10 MG Oral Tablet (Apresoline) Take 1 Tablet by mouth in the morning and 1 Tablet before bedtime. 60 Tablet 11 4 Active Furosemide 40 MG Oral Tablet (Lasix) Take 1 Tablet by mouth in the morning and 1 Tablet before bedtime. Take doses at least 4 hours apart or more.. 180 Tablet 3 4 Active Sodium Bicarbonate 650 MG Oral Tablet TAKE 2 TABLETS BY MOUTH IN THE MORNING AND 2 BEFORE BEDTIME 120 Tablet 0 4 Active Rosuvastatin Calcium 10 MG Oral Tablet (Crestor) Take 1 Tablet by mouth in the morning. 90 Tablet 1 4 Active oxygen IN GAS Use 4 L/min(Oxygen) as directed. Uses "in the evening" 0 Active Spiriva Respimat 2.5 MCG/ACT Inhalation Aerosol Solution (Tiotropium [place] Monohydrate) Inhale 2 Puffs by mouth in the morning. 4 g 2 4 07/23/19 24 Active Erythromycin 5 MG/GM Ophthalmic Ointment Instill 0.25 Inches into eye in the morning and 0.25 Inches at noon and 0.25 Inches in the evening and 0.25 Inches before bedtime. Do all this for 14 days. Then daily at bedtime. 3.5 g 3 4 05/22/19 24 Active hydrOXYzine HCl 50 MG Oral TabletIndications:P rimary insomnia TAKE 1 TABLET BY MOUTH AT BEDTIME NEEDED FOR INSOMNIA 30 Tablet 3 4 Active hydrOXYzine HCl 50 MG Oral TabletIndications:P rimary insomnia TAKE 1 TABLET BY MOUTH AT BEDTIME NEEDED FOR INSOMNIA 30 Tablet 0 4 05/13/19 24 Discontinued Hospital, Clinic, or Other Facility Administered Medication Ordered Dose Route Frequency Start Date End Date Status Albuterol Sulfate (Proventil) (5 MG/ML) 0.5% *conc* inhalation solution 2.5 mgIndications:Chronic hypoxemic respiratory failure (HCC),COPD, group C, by GOLD 2017 classification (HCC),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) 2.5 mg NEBULIZER PRN 04/24/2023 04/23/2024 Active Albuterol Sulfate (Proventil) (2.5 MG/3ML) 0.083% inhalation solution 2.5 mgIndications:Chronic hypoxemic respiratory failure (HCC),COPD, group C, by GOLD 2017 classification (HCC),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) 2.5 mg NEBULIZER PRN 04/24/2023 04/23/2024 Active documented as of this encounter (statuses as of 05/13/2023) Active Problems Problem Noted Date Diagnosed Date COPD, group D, by GOLD 2017 classification 04/29 Overview: Per COPD GOLD Classification [place] pneumoconiosis 04/24/2023 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 Overview: Of the L kidney BPH without obstruction/lower urinary tract symp toms 12/07/2021 Right sided weakness 12/07/2021 Kidney disease, chronic, stage IV (GFR 15-29 ml/ min) 07/26/2020 Overview: Per CKD protocol Hx of nonmelanoma skin cancer 04/06/2019 Overview: squamous cell carcinoma (L mandible 05/2013), Tess (L malar cheek 03/2014), basal cell carcinoma (R cheek, R anterior neck 02/27, R medial lower cheek 06/2017), multiple nonmelanoma skin cancers, actinic keratoses (Efudex 05/26, 11/2013, 03/2019) AK (actinic keratosis) 04/06/2019 Overview: Actinic keratoses (Efudex 05/26, 11/2013, 03/2019) Renal osteodystrophy 03/31/2019 C7 radiculopathy 12/22/2018 Overview: Right Lumbosacral radiculopathy at L5 12/22/2018 Overview: 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 Benign hypertension with chronic kidney disease, stage IV 02/12/2018 Chronic hypoxemic respiratory failure 01/17/2018 Adjustment disorder with mix ed disturbance of emotions and conduct 01/16/2018 Paroxysmal nocturnal dyspnea 01/16/2018 Obesity, Class I, BMI 30.0-34.9 (see actual BMI) 01/16/2018 Not immune to hepatitis B virus 01/08/2018 Anemia of chronic renal failure, stage 4 (severe ) 10/29/2017 Overview: Per CKD protocol #[address] Shankar Left renal mass 07/11/2017 Overview: 2018 biopsy at [facility] per patient "kidney cancer". States he was advised he was not a surgical candidate. Carotid stenosis, right 07/11/2017 History of stroke 07/11/2017 Overview: TIA vs lacunar stroke diagnosed on head CT in [place] Apr 2017. Follow up MRI [facility] no infarct. Anxiety 07/11/2017 HTN, goal below 140/90 08/02/2015 Coronary artery disease Dyslipidemia, goal LDL below 100 documented as of this encounter (statuses as of 05/13/2023) Resolved Problems Problem Noted Date Diagnosed Date Resolved Date COPD, group C, by GOLD 2017 classification 11/27/2021 05/02/2023 Overview: Per COPD GOLD Classification Prediabetes 09/26/2020 03/01/2022 Overview: Per Prediabetes protocol Meningioma 03/31/2019 12/07/2021 Severe obesity with body mas s index (BMI) of 35.0 to 39.9 with serious comorbidity 12/29/2018 Aneurysm of aorta 12/02/2018 11/01/2022 Overview: 3.3 cm AAA noted on renal us 12/27/21 Right hemiplegia 11/26/2018 12/07/2021 Senile calcific aortic valve sclerosis 11/26/2018 12/07/2021 COPD, severe 08/05/2018 11/30/2021 Overview: Per COPD GOLD Classification Benign hypertension with chr onic kidney disease, stage IV 07/23/2018 08/27/2018 Pneumonia of right middle lo be due to infectious organism 01/16/2018 04/14/2018 Nonrheumatic aortic valve stenosis 01/15/2018 12/07/2021 Overview: Echo 01/02. Dr Zaragoza. Non-rheumatic mitral valve stenosis 01/15/2018 12/07/2021 Overview: Echo 12/2017. Dr Zaragoza. Anemia of chronic renal fail ure, stage 3 (moderate) 07/11/2017 11/02/2017 Overview: Per CKD protocol #1 - Basal cell carcinoma (BCC) of skin of face 07/11/2017 07/14/2018 Hyperkalemia 07/11/2017 12/07/2021 CKD (chronic kidney disease) stage 3, GFR 30-59 ml/min 01/28/2015 08/08/2017 documented as of this encounter (statuses as of 05/13/2023) Immunizations Name Administration Dates Next Due COVID-19 mRNA, LNP-s, No Pre serve, 2-Dose Series (Moderna) 01/10/2021,05/24/2020,04/26/2020 COVID-19, MRNA-LNP, 23-24, P F, 50 MCG/0.5 mL, 12 YRS AND ABOVE, IM (MODERNA-Spikevax) 01/03/2023 Hepatitis B, 20+ yrs 01/23/2023,01/08/2018 Pneumococcal Conjugate Vacc, 13 Valent (Prevnar) 01/16/2018 Pneumococcal Polysaccharide PPV23 (Pneumovax) 01/16/2018,02/09/2015 RSV Vac., Recomb, Adjuvant, PF,0.5 Ml (Arexvy) 01/03/2023 Season Influenza, Quad, PF, Adjuvanted, 65+ Yrs, IM (FLUAD) 12/02/2020 Seasonal Influenza Virus Vac cine, Unspecified Formulation 12/16/2018 Seasonal Influenza, PF, 6 M & above, IM , (FluLaval or Fluzone) 12/05/2020,12/22/2018,12/16/2016 Seasonal Influenza, Quadriva lent Hd (Fluzone Hd) 01/23/2023,12/07/2021 Seasonal Influenza, Quadriva lent Hd, 65+ Yrs 12/18/2019 Seasonal Influenza, Quadriva lent, No Preserve, IM 12/15/2014 Seasonal Influenza, Recombin ant, RIV4, PF, (Flublock) 12/22/2018 Seasonal Influenza, Split, I IV3, With Preserve, Inj 12/16/2017 TDAP (age 10 and older)(Boostrix) 10/24/2018 Zoster Vaccine Recombinant (Shingrix) 12/11/2019 ,10/09/2019 documented as of this encounter Social History Tobacco Use Types Packs/Day Years Used Date Smoking Tobacco: Former Cigars Smokeless Tobacco: Never Comments:one cigar a day Alcohol Use Standard Drinks/Week Comments Yes 0 (1 standard drink = 0.6 oz pur e alcohol) rare PHQ-2 Answer Date Recorded PHQ-2 Score 0 02/29/2020 Hunger Vital Sign Answer Date Recorded Within the past 12 months, y ou worried that your food would run out before you got the money to buy more. Never true 05/23/19 23 Within the past 12 months, t he food you bought just didn't last and you didn't have money to get more. Never true 05/22/2022 Sex and Gender Information Value Date Recorded Sex Assigned at Not on file Gender Identity Not on file Sexual Orientation Not on file Job Start Date Occupation Industry Not on file Not on file Not on file documented as of this encounter Miscellaneous Notes * Telephone Encounter - London Arora MD - 05/13/2023 8:35 AM EST Signed Prescriptions: Disp Refills hydrOXYzine HCl 50 MG Oral Tablet 30 Tab*3 Sig: TAKE 1 TABLET BY MOUTH AT BEDTIME NEEDED FOR INSOMNIA Authorizing Provider: LONDON ARORA * Telephone Encounter - Har[facility] - 05/12/2023 9:49 AM EST Pending Prescriptions: Disp Refills hydrOXYzine HCl 50 MG Oral Tablet 30 Tab*3 Sig: TAKE 1 TABLET BY MOUTH AT BEDTIME NEEDED FOR INSOMNIA documented in this encounter Plan of Treatment Upcoming Encounters Date Type Department Care Team (Late st Contact Info) Description 05/20/2023 12:20 PM EST Office Visit Ophthalmology [facility] [address] [place] [address] Sergio Jung, DO [address] [place] [id number] 07/15/2023 10:10 AM EDT Office Visit Ophthalmology [facility] [address] [place] [address] Sergio Jung, [address] [place] [address] 12/04/2023 11:40 AM EDT Office Visit Nephrology, M[facility]i [facility] [address] [place] [address] Rosy Patel MD [address] [place] [address] 02/10/2024 1:00 PM EST Imaging Radiology [facility] 1st Floor, [place] [address] [facility] [place] [address] 02/25/2024 4:00 PM EST Office Visit Urology, [facility] [address] [place] [address] Cameron Romeo MD [address] [place] [address] [place] [address] Health Maintenance Due Date Last Done Comments Alpha-1 Antitrypsin 1958 *COPD SEVERITY VERIFIED BY PFT 07/16/2020 Depression Screening 02/28/2021 02/29/2020 Hepatitis B (3 of 3 - 19+ 3-dose series) 03/20/2023 01/23/2023, 01/08/2018 Albumin/Creatinine Ratio 08/09/2023 023, 12/07/2021, 08/10/2021, Additional history exists GFR 10/03/2023 04/04/2023, 01/0 04/2023, 03/04/2023, Additional history exists PTH 12/01/2023 11/30/2022, 2 09/2022, 07/19/2021, Additional history exists Hgb 02/26/2024 02/25/2023, 10/0 11/2022, 11/30/2022, Additional history exists Phosphate 04/04/2024 04/04/2023, 01/0 04/2023, 03/04/2023, Additional history exists Nephrology Referral 04/11/2024 04/11/2023 O2 ASSESSMENT COMPLETED IN PAST YEAR FOR COPD 04/24/2024 04/24/2023 DTaP,Tdap,and Td Vaccines (2 - Td or Tdap) 10/24/2028 10/24/2018 Pneumococcal Vaccine: 65+ Years Completed 01/16/2018, 01/16/2018, 02/09/2015 Zoster Vaccines Completed 12/11/2019, 10/09/2019 COVID-19 Vaccine Completed 01/03/2023, , 05/24/2020, Additional history exists Influenza Vaccine (FLU shot) Completed 10/2022, 12/07/2021, 12/05/2020, Additional history exists GARDASIL-HPV IMMUNIZATION SERIES Aged Out No longer eligible based on patient's age to complete this topic MENINGOCOCCAL (MENACTRA/MENVEO) Aged Out No longer eligible based on patient's age to complete this topic documented as of this encounter Medical Devices Not on filedocumented as of this encounter Visit Diagnoses Diagnosis Primary insomnia Persistent disorder of initiating or maintaining sleep documented in this encounter Care Teams Manager Oncology Relationship Specialty Start Date End Date London Arora MD [address] [place] [address] [place] [address] PCP - General Family Medicine 11/21/21 documented as of this encounter
--- OUTSIDE RECORDS SUMMARY | 2023-05-15 03:26 | External Medical Summary | Summary of Care ---
Author Name Unknown Organization [facility] Address [address] [place] [address] Phone [phone] Care Team Providers Care Frame Straightener Name Role Phone Jody Arora MD Primary Care Provide r Reason for Visit * Reason Comments Procedure Encounter Details Date Type Department Care Team (Late st Contact Info) Description 05/08/2023 1:00 PM EST Office Visit Ophthalmology, [facility] [address] [place] [address] Sergio Jung T, DO [address] [place] [address] Senile ectropion of both lower eyelids* Allergies No known active allergiesdocumented as of this encounter (statuses as of 05/08/2023) Medications Medication Sig Dispensed Refills Start Date End Date Status nitroglycerin (NITROSTAT) 0.4 MG SUBL 1 Tablet. 0 08/19/2018 Active Ventolin HFA 108 (90 Base) MCG/ACT Inhalation Aerosol SolutionIndications: COPD exacerbation (HCC) Inhale by mouth 2 Puffs every 4 hours as needed for Wheezing. 18 g 1 11/22/2021 Active Additional Information Patient not taking.Reported on 04/24/2023 Albuterol Sulfate (2.5 MG/3ML) 0.083% Inhalation Nebulization Solution (Proventil)Indicatio ns:Pneumonia due to COVID-19 virus Inhale 1 Vial (2.5 mg) via nebulizer every 6 hours as needed for Wheezing. 360 mL 0 02/09/2022 Active Additional Information Patient not taking.Reported on 04/24/2023 Melatonin 10 MG Oral Capsule Take 1 Capsule by mouth at bedtime. 0 Active Ipratropium-Albutero l 0.5-2.5 (3) MG/3ML Inhalation Solution (Duoneb)Indications: Chronic hypoxemic respiratory failure (HCC),COPD, group C, by GOLD 2017 classification (HCC) Inhale 3 mL via nebulizer every 4 hours as needed for Wheezing. 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 DO NOT CHEW,CRUSH OR CUT 90 Capsule 3 01/22/2023 Active Menthol-Zinc Oxide 0.44-20.6 % External Ointment (Calmoseptine)Indica tions:Tinea cruris Apply to sore skin twice a day. 71 g 2 01/24/2023 Active NIFEdipine ER 60 MG Oral Tablet Extended Release 24 Hour (Adalat CC) TAKE 1 TABLET BY MOUTH TWICE DAILY (MORNING AND BEFORE BEDTIME) 60 Tablet 11 02/01/2023 Active Tamsulosin HCl 0.4 MG Oral Capsule (Flomax)Indications: BPH without obstruction/lower urinary tract symptoms Take 1 capsule by mouth in the morning 90 Capsule 1 02/28/2023 Active predniSONE 10 MG Oral Tablet (Deltasone)Indicatio ns:COPD exacerbation (HCC) Take 5 tabs for 2 days, 4 tabs for 2 days, 3 tabs for 2 days, 2 tabs for 2 days 1 tab for 2 days 30 Tablet 0 03/04/2023 Active Additional Information Patient not taking.Reported on 04/11/2023 Furosemide 20 MG Oral Tablet (Lasix) Take 1 Tablet by mouth in the morning. Along with one 40mg tablet to equal 60mg total daily.. 90 Tablet 3 03/08/2023 Active Furosemide 20 MG Oral Tablet (Lasix) Take 1 Tablet by mouth in the morning. Along with one 40 mg tablet. 30 Tablet 5 03/08/2023 Active Fluticasone-Salmeter ol 250-50 MCG/ACT Inhalation Aerosol Powder Breath Activated (Advair Diskus)Indications:C OPD, group C, by GOLD 2017 classification ([facility]) Inhale 1 Puff by mouth in the morning and 1 Puff before bedtime. 60 Each 1 04/03/2023 Active hydrALAZINE HCl 10 MG Oral Tablet (Apresoline) Take 1 Tablet by mouth in the morning and 1 Tablet before bedtime. 60 Tablet 11 04/11/2023 Active Furosemide 40 MG Oral Tablet (Lasix) Take 1 Tablet by mouth in the morning and 1 Tablet before bedtime. Take doses at least 4 hours apart or more.. 180 Tablet 3 04/11/2023 Active Sodium Bicarbonate 650 MG Oral Tablet TAKE 2 TABLETS BY MOUTH IN THE MORNING AND 2 BEFORE BEDTIME 120 Tablet 0 04/15/2023 Active hydrOXYzine HCl 50 MG Oral TabletIndications:Pr imary insomnia TAKE 1 TABLET BY MOUTH AT BEDTIME NEEDED FOR INSOMNIA 30 Tablet 0 04/16/2023 Active Rosuvastatin Calcium 10 MG Oral Tablet (Crestor) Take 1 Tablet by mouth in the morning. 90 Tablet 1 04/16/2023 Active oxygen IN GAS Use 4 L/min(Oxygen) as directed. Uses "in the evening" 0 Active Spiriva Respimat 2.5 MCG/ACT Inhalation Aerosol Solution (Tiotropium [place] Monohydrate) Inhale 2 Puffs by mouth in the morning. 4 g 2 04/24/2023 4 Active Erythromycin 5 MG/GM Ophthalmic Ointment Instill 0.25 Inches into eye in the morning and 0.25 Inches at noon and 0.25 Inches in the evening and 0.25 Inches before bedtime. Do all this for 14 days. Then daily at bedtime. 3.5 g 3 05/08/2023 4 Active Hospital, Clinic, or Other Facility Administered Medication Ordered Dose Route Frequency Start Date End Date Status Albuterol Sulfate (Proventil) (5 MG/ML) 0.5% *conc* inhalation solution 2.5 mgIndications:Chronic hypoxemic respiratory failure (HCC),COPD, group C, by GOLD 2017 classification ([facility]),[place]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) 2.5 mg NEBULIZER PRN 04/24/2023 04/23/2024 Active Albuterol Sulfate (Proventil) (2.5 MG/3ML) 0.083% inhalation solution 2.5 mgIndications:Chronic hypoxemic respiratory failure (HCC),COPD, group C, by GOLD 2017 classification ([facility]),[place]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) 2.5 mg NEBULIZER PRN 04/24/2023 04/23/2024 Active lidocaine-epinephrine 2 %-1:805561 inj 100 mgIndications:Senile ectropion of both lower eyelids 100 mg SC ONCE 05/08/2023 05/08/2023 Ended Erythromycin ophthalmic ointmentIndications:Sen ile ectropion of both lower eyelids OU ONCE 05/08/2023 05/08/2023 Ended documented as of this encounter (statuses as of 05/08/2023) Active Problems Problem Noted Date Diagnosed Date COPD, group D, by GOLD 2017 classification 04/29 Overview: 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/[place] per patient "kidney cancer". States he was advised he was not a surgical candidate. Carotid stenosis, right 07/11/2017 History of stroke 07/11/2017 Overview: TIA vs lacunar stroke diagnosed on head CT in [place] Apr 2017. Follow up MRI [facility] no infarct. Anxiety 07/11/2017 HTN, goal below 140/90 08/02/2015 Coronary artery disease Dyslipidemia, goal LDL below 100 documented as of this encounter (statuses as of 05/08/2023) Resolved Problems Problem Noted Date Diagnosed Date [...] as of this encounter (statuses as of 05/08/2023) Immunizations Name Administration Dates Next Due COVID-19 [...] on file documented as of this encounter Patient Instructions * Patient Instructions* Dulce Mir LPN - 05/08/2023 10:24 AM EST Post-Op Instructions Activity: Rest today, then increase activity as tolerated. Do not drive or operate machinery for 24-48 hours. Control Of Pain: Take 1-2 extra strength tylenol as needed for pain. Warnings: Call your surgeon promptly in case of: A. Excessive bleeding B. Fever greater than 101 degrees Fahrenheit C. Persistent nausea and vomiting D. Redness, swelling or pus-like drainage E. Uncontrolled pain Special Instructions: - Apply ice water compresses to surgical area as much as possible for the next 48 hours to help reduce bruising and swelling - apply warm compress twice a day starting on day #3 - Apply ointment to surgical area 3-4 times a day for 14 days - Cleanse area gently with fingertips using soap & water. Do not use a washcloth! Pat dry. - Elevate head when resting for the next 48 hours -If advised, please wear eye shield(s) at bedtime for one week If you have any further questions, please call . For emergencies after 5:00 p.m. call and request the eye doctor inspector semiconductor wafer. Instructions given by: Dr. Jung documented in this encounter Progress Notes * Sergio Jung DO - 05/08/2023 11:01 AM EST Office Procedure Note Justin Pinedo 05/08/2023 Pre/Post Op Dx: Ectropion of bilateral lower eyelids Procedure: Ectropion repair of both lower eyelids using lateral tarsal strips Surgeon: Sergio Jung DO Assistants: Ashli Romeo PA-C Anesthesia: Local 2% Lidocaine with epinephrine Complications: None EBL: minimal Drains: None IVF: None Specimen: none Preoperative Evaluation: Patient presented with foreign body sensation and redness of his eyelids. On evaluation, he was noted to have an ectropion of the both lower eyelids. Patient is now for ectropion repair of both lower eyelids. Operative Note: The patient was brought to the procedure room and identified as Justin Pinedo and the procedure to be performed was confirmed with the patient. After informed consent was obtained the lateral upper and lower eyelids were infiltrated with 2% lidocaine with epinephrine. The patient wasthen prepped and draped in the usual sterile fashion. Attention was then turned to the right lower eyelid where a lateral canthotomy and inferior cantholysis was performed. A lateral tarsal strip wasthen fashioned. The lateral portion of the eyelids were then approximated to the lateral orbital rim using a double armed 4-0 prolene suture. The lateral canthal angle was reformed with a 6-0 chromicsuture. The skin defect in the lateral canthus was closed with the 6-0 chromic suture. The procedure was repeated on the left eye lower eyelid in similar fashion. Antibiotic ointment was applied. Theprocedure was performed without complications. The patient tolerated the procedure well. Patient was discharged in good condition. Written and verbal discharge instructions were given to the patient. Sergio Jung DO documented in this encounter Nursing Notes * Dulce Mir LPN - 05/08/2023 10:20 AM EST Patient admitted to procedure room at 10:20 AM and identified by full name and date of Is patient on blood thinners? no . Is patient hypertensive? no, if yes, did you take you blood pressure medication today? yes. The operative team (Dr. Jung), along with Mr. Pinedo, reviewed that he presents today for ectropion repair of bilateral lower eyelids. Mr. Pinedo agrees with the procedure and operative site. The correct operative site was marked and verified by the operative team. Mr. Pinedo signed the surgical consent form as witnessed by the operative team. Pre op vitals BP 152/71 P 87 Patient prepped and drapped by Dr. Jung Procedure completed without incident. Patient tolerated procedure well. Instructions reviewed with patient by Dr. Jung. Patient discharged from procedure room. documented in this encounter Plan of Treatment Upcoming Encounters Date Type Department Care Team (Late st Contact Info) Description 05/20/2023 12:20 PM EST Office Visit Ophthalmology, [address] [place] [address] Sergio Jung, DO 16 [place] [address] 07/15/2023 10:10 AM EDT Office Visit Ophthalmology, [facility] [address] [place] [address] Sergio Jung, DO [address] [place] [address] 12/04/2023 11:40 AM EDT Office Visit Nephrology, [facility] [address] [facility] [place] [address] Rosy Patel MD [address] [facility] [place] [address] 02/10/2024 1:00 PM EST Imaging Radiology [facility] 1st Floor, [place] [address] [facility] [place] [address] 02/25/2024 4:00 PM EST Office Visit Urology, [facility] [address] [place] [address] Cameron Romeo MD [address] [address] [place] [address] Health Maintenance Due Date Last Done Comments Alpha-1 Antitrypsin 1958 *COPD SEVERITY VERIFIED BY PFT 07/16/2020 Depression Screening 02/28/2021 02/29/2020 Hepatitis B (3 of 3 - 19+ 3-dose series) 03/20/2023 01/23/2023, 01/08/2018 Albumin/Creatinine Ratio 08/09/2023 023, 12/07/2021, 08/10/2021, Additional history exists GFR 10/03/2023 04/04/2023, 0 04/2023, 03/04/2023, Additional history exists PTH 12/01/2023 11/30/2022, 06/17, 07/19/2021, Additional history exists Hgb 02/26/2024 02/25/2023, 11/2022, 11/30/2022, Additional history exists Phosphate 04/04/2024 04/04/2023, 04/2023, 03/04/2023, Additional history exists Nephrology Referral [...] as of this encounter Visit Diagnoses Diagnosis Senile ectropion of both lower eyelids- Primary documented in this encounter Administered Medications Inactive Administered Medications - up to 3 most recent administrations Medication Order MAR Action Action Date Dose Rate Site Erythromycin ophthalmic ointment Both eyes, ONCE, On Sat05/08/23 at 1230, For 1 dose Given 05/08/2023 12:22 PM EST 1 g Other-Specify lidocaine-epinephrine 2 %-1:893333 inj 100 mg 100 mg (5 mL), Subcutaneous, ONCE, On Sat05/08/23 at 1230, For 1 dose Given 05/08/2023 12:21 PM EST 100 mg Other-Specify documented in this encounter Care Teams Frame Straightener Relationship Specialty Start Date End Date Jody Arora MD [address] [place] [address] [place] [address] PCP - General Family Medicine 11/21/21 documented as of this encounter
--- OUTSIDE RECORDS SUMMARY | 2023-05-15 03:27 | External Medical Summary | Summary of Care ---
Author Name Unknown Organization [facility] Address [address] [place] [address] Phone [phone] Care Team Providers Care Chairman Emeritus Name Role Phone Jody Arora MD Primary Care Provide r Reason for Visit * Reason Onset Date Comments Nurse Documentation 05/07/2023 Encounter Details Date Type Department Care Team (Late st Contact Info) Description 05/07/2023 Telephone [facility] [address] [place] [address] Sergio Jung, [address] [phone] Nurse Documentation Allergies No known active allergiesdocumented as of this encounter (statuses as of 05/07/2023) Medications Medication Sig Dispensed Refills Start Date [...] OPD, group C, by GOLD 2017 classification ([facility]) Inhale 1 Puff by mouth in [...] Respimat 2.5 MCG/ACT Inhalation Aerosol Solution (Tiotropium [place] Monohydrate) Inhale 2 Puffs by mouth in the morning. 4 g 2 04/24/2023 Active Hospital, Clinic, or Other Facility Administered Medication Ordered Dose Route Frequency Start Date End Date Status Albuterol Sulfate (Proventil) (5 MG/ML) 0.5% *conc* inhalation solution 2.5 mgIndications:Chronic hypoxemic respiratory failure (HCC),COPD, group C, by GOLD 2017 classification ([facility]),[place] miners' lung ([facility]) 2.5 mg NEBULIZER PRN 04/24/2023 04/23/2024 Active Albuterol Sulfate (Proventil) (2.5 MG/3ML) 0.083% inhalation solution 2.5 mgIndications:Chronic hypoxemic respiratory failure (HCC),COPD, group C, by GOLD 2017 classification ([facility]),[place]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) 2.5 mg NEBULIZER PRN 04/24/2023 04/23/2024 Active documented as of this encounter (statuses as of 05/07/2023) Active Problems Problem Noted Date Diagnosed Date COPD, group D, by GOLD 2017 classification 04/29 Overview: 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 States he was advised he was not a surgical candidate. Carotid stenosis, right 07/11/2017 History of stroke 07/11/2017 Overview: TIA vs lacunar stroke diagnosed on head CT in [place] Apr 2017. Follow up [facility] no infarct. Anxiety 07/11/2017 HTN, goal below 140/90 08/02/2015 Coronary artery disease Dyslipidemia, goal LDL below 100 documented as of this encounter (statuses as of 05/07/2023) Resolved Problems Problem Noted Date Diagnosed Date [...] as of this encounter (statuses as of 05/07/2023) Immunizations Name Administration Dates Next Due COVID-19 [...] encounter Miscellaneous Notes * Telephone Encounter - Debi Roberto, MOLLY - 05/07/2023 2:47 PM EST [facility] Procedure Room Instructions You will need a dolly driver the day of your procedure. Do not wear any products on your face such as lotions or make-up. There are no food or drink restrictions. Hold all aspirin, ibuprofen and naproxen products and any items containing these ingredients for 7 days prior to your procedure or as permitted by your prescribing physician. Tylenol products are permitted. STOP DATE:05/08 Do not take vitamin E, multivitamin, [place]-3 fish oil, Krill oil, Flax seed/oil, Garlic supplements, Gingko Biloba, Black Cohosh, Red Yeast Rice, and Cinnamon Extract TWO weeks prior to your procedure date. STOP DATE:now For blood thinners such as Plavix, Coumadin, Aggrenox, Xarelto, Ticlid, Eliquis, Pradaxa or Brilinta please check with your prescribing physician for clearance to stop the medication for as long as they will allow prior to the procedure. We request 3-4 days. STOP DATE:05/12 On your procedure day, check in at the Ophthalmology Department credit front office developer. You need to arrive 15 minutes prior to your scheduled procedure time. You may also be contacted to change your arrival timebased on clinic needs. PROCEDURE DATE: 05/15 TIME:130 PROCEDURE LOCATION: [place] ([facility]) PROVIDER: Dr. Sergio Jung Patient verbalized understanding, repeated instructions back and denied further questions. Written instructions will be mailed and sent through [employer]. documented in this encounter Plan of Treatment Upcoming Encounters Date Type Department Care Team (Late st Contact Info) Description 05/08/2023 1:00 PM EST Office Visit Ophthalmology [address] [place] [address] Sergio Jung, DO [address] [place] [address] 05/20/2023 12:20 PM EST Office Visit [place] [address] [place] [address] Sergio Jung, DO [address] [place] [address] 07/15/2023 10:10 AM EDT Office Visit Ophthalmology [facility] [address] [place] [address] Sergio Jung, DO [address] [place] [address] 12/04/2023 11:40 AM EDT Office Visit Nephrology, [facility] [address] [place] [address] Rosy Patel MD [address] [place] [address] [address] 02/10/2024 1:00 PM EST Imaging Radiology [facility] 1st [facility], [place] 132 [facility] [place] [address] 02/25/2024 4:00 PM EST Office Visit Urology, [facility] 132 [facility] [place] [address] Cameron Romeo MD [address] [facility] [place] [address] [place] [address] Health Maintenance [...] Not on filedocumented as of this encounter Care Teams Chairman Emeritus Relationship Specialty Start Date End Date Jody Arora MD [address] [place] [address] [place] [phone] PCP - General Family Medicine 11/21/21 documented as of this encounter
--- OUTSIDE RECORDS SUMMARY | 2023-05-15 03:27 | External Medical Summary | Summary of Care ---
Author Name Unknown Organization [facility] Address [address] [place] [address] Phone [phone] Care Team Providers Care Lobsterman Name Role Phone Jody Arora MD Primary Care Provide r Reason for Visit * Reason Comments Procedure Encounter Details Date Type Department Care Team (Late st Contact Info) Description 05/08/2023 1:00 PM EST Office Visit Ophthalmology, [facility] [address] [place] [address] eSrgio Jung T, DO [address] [place] [address] Senile ectropion of both lower [...] OPD, group C, by GOLD 2017 classification ([facility]) Inhale 1 Puff by mouth in [...] Respimat 2.5 MCG/ACT Inhalation Aerosol Solution (Tiotropium [place] Monohydrate) Inhale 2 Puffs by mouth in [...] (HCC),COPD, group C, by GOLD 2017 classification ([facility]),[place]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) 2.5 mg NEBULIZER PRN 04/24/2023 04/23/2024 Active Albuterol Sulfate (Proventil) (2.5 MG/3ML) 0.083% inhalation solution 2.5 mgIndications:Chronic hypoxemic respiratory failure (HCC),COPD, group C, by GOLD 2017 classification ([facility]),[place]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) 2.5 mg NEBULIZER PRN 04/24/2023 04/23/2024 Active lidocaine-epinephrine 2 %-1:400807 inj 100 mgIndications:Senile ectropion of both lower eyelids 100 mg SC ONCE 05/08/2023 05/09/2023 Active Erythromycin ophthalmic ointmentIndications:Sen ile ectropion of both lower eyelids OU ONCE 05/08/2023 05/09/2023 Active documented as of this encounter (statuses as of 05/08/2023) Active Problems Problem Noted Date Diagnosed Date COPD, group D, by GOLD 2017 classification 04/29 Overview: Per COPD GOLD 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 States he was advised he was not a surgical candidate. Carotid stenosis, right 07/11/2017 History of stroke 07/11/2017 Overview: TIA vs lacunar stroke diagnosed on head CT in [place] Apr 2017. Follow up MRI [facility] no infarct. Anxiety 07/11/2017 HTN, goal below [...] p.m. call and request the eye doctor cardiopulmonary technician and eeg tech. Instructions given by: Dr. Jung documented in [...] 87 Patient prepped and drapped by Dr. Jung. documented in this encounter Plan of Treatment Upcoming Encounters Date Type Department Care Team (Late st Contact Info) Description 05/20/2023 12:20 PM EST Office Visit Ophthalmology, [address] [address] Sergio Jung DO [address] [place] [address] 07/15/2023 10:10 AM EDT Office Visit Ophthalmology, [facility] [address] [facility] [place] [address] Sergio Jung, DO [address] [place] [address] 12/04/2023 11:40 AM EDT Office Visit Nephrology, [facility] [address] [place], [place] [address] Rosy Patel MD [address] [place] [address] 02/10/2024 1:00 PM EST Imaging Radiology [facility] 1st Floor, [place] [address] [facility] [place] [address] 02/25/2024 4:00 PM EST Office Visit Urology, [address] [address] Cameron Romeo MD 27 [facility] [address] [place] [address] Health Maintenance Due Date Last Done Comments Alpha-1 Antitrypsin 1958 *COPD SEVERITY VERIFIED BY PFT 07/16/2020 Depression Screening 02/28/2021 02/29/2020 Hepatitis B (3 of 3 - 19+ 3-dose series) 03/20/2023 01/23/2023, 01/08/2018 Albumin/Creatinine Ratio 08/09/2023 023, 12/07/2021, 08/10/2021, Additional history exists GFR 10/03/2023 04/04/2023, 04/2023, 03/04/2023, Additional history exists PTH 12/01/2023 [...] lower eyelids- Primary documented in this encounter Care Teams Lobsterman Relationship Specialty Start Date End Date Jody Arora MD [address] [place] [address] [place] [address] PCP - General Family Medicine 11/21/21 documented as of this encounter
--- OUTSIDE RECORDS SUMMARY | 2023-05-15 03:27 | External Medical Summary | Summary of Care ---
Author Name Unknown Organization [facility] Address [address] [place] [address] Phone [phone] Care Team Providers Care Para Machine Operator Name Role Phone Jody Perales MD Primary Care Provide r Reason for Visit * Reason Comments eRx-Medication Refill Encounter Details Date Type Department Care Team (Late st Contact Info) Description 04/15/2023 Refill Family Medicine [address] [place] [phone] Jayleen Hua PA-C [address] [place] [address] [place] [address] Allergies No known active allergiesdocumented as of this encounter (statuses as of 04/16/2023) Medications Medication Sig Dispensed Refills Start Date End Date Status nitroglycerin (NITROSTAT) 0.4 MG SUBL 1 Tablet. 0 9 Active Ventolin HFA 108 (90 Base) MCG/ACT Inhalation Aerosol SolutionIndications :COPD exacerbation (HCC) Inhale by mouth 2 Puffs every 4 hours as needed for Wheezing. 18 g 1 2 Active Albuterol Sulfate (2.5 MG/3ML) 0.083% Inhalation Nebulization Solution (Proventil)Indicati ons:Pneumonia due to COVID-19 virus Inhale 1 Vial (2.5 mg) via nebulizer every 6 hours as needed for Wheezing. 360 mL 0 2 Active Melatonin 10 MG Oral Capsule Take 1 Capsule by mouth at bedtime. 0 Active Ipratropium-Albuter ol 0.5-2.5 (3) MG/3ML Inhalation Solution (Duoneb)Indications :Chronic hypoxemic respiratory failure (HCC),COPD, group C, by GOLD 2017 classification ([facility]) Inhale 3 mL via nebulizer every 4 hours as needed for Wheezing. 120 mL 1 3 Active Carvedilol 3.125 MG Oral Tablet (Coreg) Take [...] COPD, group C, by GOLD 2017 classification (HCC) Inhale 1 Puff by mouth in the [...] BEFORE BEDTIME 120 Tablet 0 4 Active hydrOXYzine HCl 50 MG Oral TabletIndications:P rimary insomnia TAKE 1 TABLET BY MOUTH AT BEDTIME NEEDED FOR INSOMNIA 30 Tablet 0 4 Active Rosuvastatin Calcium 10 MG Oral Tablet (Crestor) Take 1 Tablet by mouth in the morning. 90 Tablet 1 4 Active Rosuvastatin Calcium 40 MG Oral Tablet (Crestor) Take 1 Tablet by mouth in the morning. 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 States he was advised he was not a surgical candidate. Carotid stenosis, right 07/11/2017 History of stroke 07/11/2017 Overview: TIA vs lacunar stroke diagnosed on head CT in [place] Apr 2017. Follow up MRI [facility] no infarct. Anxiety 07/11/2017 HTN, goal below 140/90 08/02/2015 Coronary artery disease Dyslipidemia, goal LDL below 100 documented as of this encounter (statuses as of 04/16/2023) Resolved Problems Problem Noted Date Diagnosed Date Resolved Date Prediabetes 09/26/2020 03/01/2022 Overview: Per Prediabetes protocol [...] as of this encounter (statuses as of 04/16/2023) Immunizations Name Administration Dates Next Due COVID-19 mRNA, LNP-s, No Pre serve, 2-Dose Series (Moderna) 01/10/2021,05/24/2020,04/26/2020 COVID-19, MRNA-LNP, 23-24, P F, 50 MCG/0.5 mL, 12 YRS AND ABOVE, IM (MODERNA-Spikevax) 01/03/2023 Hepatitis B, 20+ yrs 01/23/2023,01/08/2018 Pneumococcal Conjugate Vacc, 13 Valent (Prevnar) 01/16/2018 Pneumococcal Polysaccharide PPV23 (Pneumovax) 02/09/2015 RSV Vac., Recomb, Adjuvant, PF,0.5 Ml (Arexvy) 01/03/2023 Seasonal Influenza Virus Vac cine, Unspecified Formulation [...] Years Used Date Smoking Tobacco: Former Cigars Q uit: 03/18/1969 Smokeless Tobacco: Never Comments:one cigar a day [...] encounter Miscellaneous Notes * Telephone Encounter - Patty Puri [facility] - 04/16/2023 3:39 PM EST Called patient to advise on decreased dose due to kidney function. Patient aware and will start newprescription. Thanks, Patty Puri PharmD Clinical Pharmacist [facility] ([facility]) [phone] 04/16/2023, 3:40 PM * Telephone Encounter - Jody Perales MD - 04/16/2023 12:07 PM EST Signed Prescriptions: Disp Refills Rosuvastatin Calcium 10 MG Oral Tablet (Cr*90 Tab*1 Sig: Take 1 Tablet by mouth in the morning. Authorizing Provider: JODY PERALES * Telephone Encounter - Patty Puri RPh - 04/16/2023 12:00 PM ESTPending Prescriptions: Disp Refills Rosuvastatin Calcium 10 MG Oral Tablet (Cr*90 Tab*1 Sig: Take 1 Tablet by mouth in the morning. * Telephone Encounter - Patty Puri RPh - 04/16/2023 11:54 AM EST Received refill request for rosuvastatin. Due to patient's renal function, recommend a dose decrease to 10mg daily. Serum creatinine: 3.6 mg/dL (H) 04/04/23 1117 Estimated creatinine clearance: 15.7 mL/min (A) Please approve if appropriate and route back to me to advise patient. Thanks, Tatum OhD Clinical Pharmacist [facility] ([facility]) [phone] 04/16/2023, 11:58 AM documented in this encounter Plan of Treatment Upcoming Encounters Date Type Department Care Team (Late st Contact Info) Description 04/24/2023 1:00 PM EST Office Visit Pulmonary Medicine, [facility] [address] [facility] [place] [address] Gilbert Thomas MD [address] [place] [address] 12/04/2023 11:40 AM EDT Office Visit Nephrology, [facility] [address] [facility] [place] [address] Rosy Patel MD [address] [facility] [place] [address] 02/10/2024 1:00 PM EST Imaging Radiology [facility] 1st Floor, [place] [address] [facility] [place] [address] 02/25/2024 4:00 PM EST Office Visit Urology, [facility] [address] [facility] [place] [address] Cameron Romeo MD [address] [facility] [address] [place] [address] Health Maintenance Due [...] ASSESSMENT COMPLETED IN PAST YEAR FOR COPD 04/11/2024 04/11/2023 DTaP,Tdap,and Td Vaccines (2 - Td or [...] filedocumented as of this encounter Care Teams Para Machine Operator Relationship Specialty Start Date End Date Jody Perales MD [address] [place] [address] [place] [address] PCP - General Family Medicine 11/21/21 documented as of this encounter
--- OUTSIDE RECORDS SUMMARY | 2023-05-15 03:27 | External Medical Summary | Summary of Care ---
Author Name Unknown Organization [facility] Address [address] [place] [address] Phone [phone] Care Team Providers Care Drum Attendant Name Role Phone Jody Arora MD Primary Care Provide r Encounter Details Date Type Department Care Team (Late st Contact Info) Description 04/15/2023 Telephone [facility] [address] [phone] Sergio Jung, [address] [place] [address] Allergies No known active allergiesdocumented as of [...] C, by GOLD 2017 classification ([facility]) Inhale 3 mL via nebulizer every 4 [...] 120 Tablet 0 4 Active Rosuvastatin Calcium 40 MG Oral Tablet (Crestor) Take 1 Tablet by mouth in the morning. 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 States he was advised he was not a surgical candidate. Carotid stenosis, right 07/11/2017 History of stroke 07/11/2017 Overview: TIA vs lacunar stroke diagnosed on head CT in [place] Apr 2017. Follow up MRI [facility] no infarct. Anxiety 07/11/2017 HTN, goal below [...] encounter Miscellaneous Notes * Telephone Encounter - Kamryn Allan OSA - 05/07/2023 1:22 PM EST Patient stopped at my desk today asking about an appointment with Dr. Jung. Please reach out to schedule appt. Thank you. * Telephone Encounter - Debi Roberto OSA - 04/16/2023 10:09 AM EST Waiting on prior auth from Medicare MOLLY Magana 04/16/2023 10:09 AM * Telephone Encounter - Mary Martinez OSA - 04/15/2023 1:33 PM EST Please call to schedule appt documented in this encounter Plan of Treatment Upcoming Encounters Date Type Department Care Team (Late st Contact Info) Description 12/04/2023 11:40 AM EDT Office Visit Nephrology, [facility] [address] [place] [address] Rosy Patel MD [address] [facility] [place] [address] 02/10/2024 1:00 PM EST Imaging Radiology [facility] [address] [facility] [address] [facility] [place] [address] 02/25/2024 4:00 PM EST Office Visit Urology, [facility] [address] [facility] [place] [address] Cameron Romeo MD 27 [facility] [address] [place] [address] Health Maintenance Due Date Last Done Comments Alpha-1 Antitrypsin 1958 *COPD SEVERITY VERIFIED BY PFT 07/16/2020 Depression Screening 02/28/2021 02/29/2020 Hepatitis B (3 of 3 - 19+ 3-dose series) 03/20/2023 01/23/2023, 01/08/2018 Albumin/Creatinine Ratio 08/09/2023 023, 12/07/2021, 08/10/2021, Additional history exists GFR 10/03/2023 04/04/2023, 0 04/2023, 03/04/2023, Additional history exists PTH 12/01/2023 11/30/2022, 2 09/2022, 07/19/2021, Additional history exists Hgb 02/26/2024 02/25/2023, 100 11/2022, 11/30/2022, Additional history exists Phosphate 04/04/2024 04/04/2023, 0 04/2023, 03/04/2023, Additional history exists Nephrology Referral [...] filedocumented as of this encounter Care Teams Drum Attendant Relationship Specialty Start Date End Date Jody Arora MD [address] [place] [address] [place] [address] PCP - General Family Medicine 11/21/21 documented as of this encounter
--- OUTSIDE RECORDS SUMMARY | 2023-05-15 03:27 | External Medical Summary | Summary of Care ---
Author Name Unknown Organization [facility] Address [address] [place] [address] Phone [phone] Care Team Providers Care Leach Cell Operator Name Role Phone Jody Arora MD Primary Care Provide r Reason for Visit * Reason Comments NEW PATIENT * Evaluate & Treat - Unlimited Visits (Within 30 days (routine)) - Authorized Specialty Diagnoses / Procedures Referred By Contac t Referred To Contact Pulmonary Diseases / Pulmonary Diagnoses COPD, group C, by GOLD 2017 classification (HCC) Jody Arora MD [address] [place] [address] [place] [id number] Referral ID Status Reason Start Date Expiration Date Visits Requested Visits Authorized [id number] Authorized Specialty Services Required 04/03/2023 [id number] Encounter Details Date Type Department Care Team (Latest Contact Info) Description 04/24/2023 1:00 PM EST Office Visit Pulmonary Medicine, [facility] [address] [facility] [place] [id number] Gilbert Thomas MD [address] [place] [phone] Chronic hypoxemic respiratory failure (HCC)*; COPD, group C, by GOLD 2017 classification (HCC); Paroxysmal nocturnal dyspnea; HTN, goal below 140/90; Gladwin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) Allergies No known active allergiesdocumented as of this encounter (statuses as of 04/24/2023) Medications Medication Sig Dispensed Refills Start Date [...] OPD, group C, by GOLD 2017 classification ([facility]) Inhale 1 Puff by mouth in the [...] Respimat 2.5 MCG/ACT Inhalation Aerosol Solution (Tiotropium Aspers Monohydrate) Inhale 2 Puffs by mouth in the morning. 4 g 2 04/24/2023 Active Hospital, Clinic, or Other Facility Administered Medication Ordered Dose Route Frequency Start Date End Date Status Albuterol Sulfate (Proventil) (5 MG/ML) 0.5% *conc* inhalation solution 2.5 mgIndications:Chronic hypoxemic respiratory failure (HCC),COPD, group C, by GOLD 2017 classification (HCC),[place]win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) 2.5 mg NEBULIZER PRN 04/24/2023 04/23/2024 Active Albuterol Sulfate (Proventil) (2.5 MG/3ML) 0.083% inhalation solution 2.5 mgIndications:Chronic hypoxemic respiratory failure (HCC),COPD, group C, by GOLD 2017 classification (HCC),Gl[place]win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) 2.5 mg NEBULIZER PRN 04/24/2023 04/23/2024 Active documented as of this encounter (statuses as of 04/24/2023) Active Problems Problem Noted Date Diagnosed Date 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 States he was advised he was not a surgical candidate. Carotid stenosis, right 07/11/2017 History of stroke 07/11/2017 Overview: TIA vs lacunar stroke diagnosed on head CT in [place] Apr 2017. Follow up [facility] no infarct. Anxiety 07/11/2017 HTN, goal below 140/90 08/02/2015 Coronary artery disease Dyslipidemia, goal LDL below 100 documented as of this encounter (statuses as of 04/24/2023) Resolved Problems Problem Noted Date Diagnosed Date [...] as of this encounter (statuses as of 04/24/2023) Immunizations Name Administration Dates Next Due COVID-19 [...] Cigars Q uit: 03/18/1969 Smokeless Tobacco: Never Tobacco Cessation:Counseling Given: Not Answered Comments:one cigar a day Alcohol Use Standard [...] on file documented as of this encounter Last Filed Vital Signs Vital Sign Reading Time Taken Comments Blood Pressure 140/64 04/24/2023 12:50 PM EST Pulse 90 04/24/2023 12:50 PM EST Temperature 36.3 C (97.4 F) 04/24/2023 12:[address] Respiratory Rate 22 04/24/2023 12:50 PM EST Oxygen Saturation 89% 04/24/2023 12:51 PM EST ra, amb Inhaled Oxygen Concentration - - Weight 88.9 kg (196 lb) 04/24/2023 12:50 PM EST Height 162.6 cm (5' 4") 04/24/2023 12:50 PM EST Body Mass Index 33.64 04/24/2023 12:50 PM EST documented in this encounter Progress Notes * Gilbert Thomas MD - 04/24/2023 1:01 PM EST 04/24/2023 Pulmonary Medicine, [facility] [address] [place] [id number] Justin Pinedo 1940 male 82 year old Attending Physician Documentation: 82-year-old male, 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 Current bronchodilator regimen includes Advair and rare use of rescue albuterol. Semi compliant with oxygen therapy, limited exercise tolerance. Current exercise distance less than 1 block and less than 1 flight of stairs. Describes smoker's cough. Physical examination shows class 3 throat, bilateral coarse expiratory wheezing with scattered basilar coarse rales without dullness, regular cardiac rhythm, trace lower extremity edema and nonlateralizing Neuro examination. CT scan chest shows bilateral scattered reticular infiltrates, prominent at bases bilaterally alongwith scattered emphysematous changes. 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 Bronchodilator therapy will be optimized to include Spiriva while continuing with Advair Diskus. Importance of maintaining physical activity status and compliance with oxygen therapy was discussed. Sleep medicine referral and evaluation was offered but declined by patient. Pulmonary medicine follow-up recommended in 6 weeks to review diagnostic workup results and discussfurther management plan. Assessment COPD CWP CHF HTN Chronic hypoxia, semi compliant with oxygen therapy History of OSAS, not on CPAP therapy Follow Up: Return in about 2 months (around 06/23/2023) for Clinic Visit. 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 Interm History/Respiratory Symptoms Cough: occasional, greenish phlegm and very thick Hemoptysis: rare dark brown/red phlegm Sinus Symptoms: no Hospitalizations: no ED Trips: no Triggers: exertion, humidity, cold weather Nocturnal: pt sleeps in recliner CPAP/BiPAP/O2: O2 4LPM "in the evening" Flu Vaccine: 2022 Pneumovax: 2018 Prevnar: 2018 COVID 19: x 4 Mmrc Cat Question 04/24/2023 12:58 PM EST - Filed by Giselle Nielson LPN When do you become breathless? (4) I am too breathless to leave the house or I am breathless when dressing How frequently do you cough? (2) Do you have phlegm in your chest? (2) Is your chest tight? (0) - My chest does not feel tight at all How breathless do you become when walking up a hill or steps? (5) - When I walk up a hill or one flight of stairs I am very breathless How limited are you doing activities at home? (4) How confident are you leaving home with your lung condition? (0) - I am confident leaving my home despite my condition How soundly do you sleep? (1) How much energy do you have? (4) Total MMRC Score (range: 0 - 4) 4 Total CAT Score (range: 0 - 40) 18 Objective Filed Vitals: 04/24/23 1250 04/24/23 1251 BP: 140/64 Pulse: 90 Resp: 22 Temp: 36.3 C (97.4 F) TempSrc: Tympanic SpO2: 90% 89% Weight: 88.9 kg (196 lb) Height: 1.626 m (5' 4") Exam: Const: No signs of acute distress present. Head/Face: Normal on inspection. Eyes: Conjunctivae clear. Pupils equal round and reactive to light. ENMT: Oropharynx: No erythema, exudate or masses. Posterior pharynx is normal. Neck: Supple and symmetric. Resp: Respiratory examination as outlined above CV: Rate is regular. Rhythm is regular. No heart murmur appreciated. Extremities: No edema of the lower limbs bilaterally. Abdomen: Positive bowel sounds. Palpation of the abdomen reveals softness, but no distension or tenderness. No palpable hepatosplenomegaly. Musculo: Walks with a normal gait. Skin: Skin is warm and dry. Neuro: Coordination normal. No involuntary movement. Psych: Patient's attitude is cooperative. Mood is normal. Affect is normal. Tests reviewed with the patient: CT CHEST WO CONTRAST Result Date: 03/29/2023 IMPRESSION: Basilar predominant subpleural reticular opacities. Differential considerations includeUIP pattern of interstitial lung disease. Continued follow-up recommended. THIS DOCUMENT HAS BEEN ELECTRONICALLY SIGNED BY FERN CASTELLANOS MD XR CHEST 2 VIEWS Result Date: 03/05/2023 IMPRESSION Increasing right middle lobe and lower lobe atelectasis. MRI KIDNEY WO CONTRAST Result Date: 02/27/2023 IMPRESSION Bilateral renal atrophy. Multiple fluid signal and proteinaceous renal cysts. Left renal upper pole 19 x 11 x 14 mm cortical lesion corresponding to the hypoechoic lesion on prior ultrasound and not significantly changed in size, slightly smaller. A solid lesion is not distinguished from a proteinaceous cyst. Available Radiologic data was reviewed by me in PACS. The images were shown to the patient and findings were discussed with the patient. HOME MEDICATIONS: oxygen IN GAS hydrOXYzine HCl 50 MG Oral Tablet Rosuvastatin Calcium 10 MG Oral Tablet (Crestor) Sodium Bicarbonate 650 MG Oral Tablet Furosemide 40 MG Oral Tablet (Lasix) hydrALAZINE HCl 10 MG Oral Tablet (Apresoline) Fluticasone-Salmeterol 250-50 MCG/ACT Inhalation Aerosol Powder Breath Activated (Advair Diskus) Furosemide 20 MG Oral Tablet (Lasix) Furosemide 20 MG Oral Tablet (Lasix) Tamsulosin HCl 0.4 MG Oral Capsule (Flomax) NIFEdipine ER 60 MG Oral Tablet Extended Release 24 Hour (Adalat CC) Menthol-Zinc Oxide 0.44-20.6 % External Ointment (Calmoseptine) Venlafaxine HCl ER 37.5 MG Oral Capsule Extended Release 24 Hour (Effexor XR) Carvedilol 3.125 MG Oral Tablet (Coreg) nitroglycerin (NITROSTAT) 0.4 MG SUBL Spiriva Respimat 2.5 MCG/ACT Inhalation Aerosol Solution (Tiotropium Aspers Monohydrate) predniSONE 10 MG Oral Tablet (Deltasone) Ipratropium-Albuterol 0.5-2.5 (3) MG/3ML Inhalation Solution (Duoneb) Melatonin 10 MG Oral Capsule Albuterol Sulfate (2.5 MG/3ML) 0.083% Inhalation Nebulization Solution (Proventil) Ventolin HFA 108 (90 Base) MCG/ACT Inhalation Aerosol Solution Albuterol Sulfate (Proventil) (2.5 MG/3ML) 0.083% inhalation solution 2.5 mg Albuterol Sulfate (Proventil) (5 MG/ML) 0.5% *conc* inhalation solution 2.5 mg ROS: No reported history of Hemoptysis, Hematemesis, Melena No reported history of Dysuria, Hematuria, Flank Pain No reported history of chronic headache, seizures No reported history of Fall or trauma . No reported history of recent change in weight or appetite. Past Medical History: Diagnosis Date Basal cell carcinoma (BCC) of skin of face 07/11/2017 CKD (chronic kidney disease), stage IV (HCC) COPD (chronic obstructive pulmonary disease) (HCC) Coronary artery disease Dyslipidemia, goal LDL below 100 Microalbuminuria Myocardial infarct, old 1998 stent in [place]--Dr. 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 Pneumonia of right middle lobe due to infectious organism 01/16/2018 Pulmonary embolism (HCC) Past Surgical History: Procedure Laterality Date CHOLECYSTOTOMY OR CHOLECYSTOSTOMY, OPEN COLONOSCOPY several--Dr. Robb. 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 Interm History/Respiratory Symptoms Cough: occasional, greenish phlegm and very thick Hemoptysis: rare dark brown/red phlegm Sinus Symptoms: no Hospitalizations: no ED Trips: no Triggers: exertion, humidity, cold weather Nocturnal: pt sleeps in recliner CPAP/BiPAP/O2: O2 4LPM "in the evening" Flu Vaccine: 2022 Pneumovax: 2018 Prevnar: 2018 COVID 19: x 4 [facility] Cat Question 04/24/2023 12:58 PM EST - Filed by Giselle Nielson LPN When do you become breathless? (4) I am too breathless to leave the house or I am breathless when dressing How frequently do you cough? (2) Do you have phlegm in your chest? (2) Is your chest tight? (0) - My chest does not feel tight at all How breathless do you become when walking up a hill or steps? (5) - When I walk up a hill or one flight of stairs I am very breathless How limited are you doing activities at home? (4) How confident are you leaving home with your lung condition? (0) - I am confident leaving my home despite my condition How soundly do you sleep? (1) How much energy do you have? (4) Total MMRC Score (range: 0 - 4) 4 Total CAT Score (range: 0 - 40) 18 documented in this encounter Plan of Treatment Upcoming Encounters Date Type Department Care Team (Late st Contact Info) Description 12/04/2023 11:40 AM EDT Office Visit Nephrology, [facility] [address] [place] [address] Rosy Patel MD [address] [place] [address] 02/10/2024 1:00 PM EST Imaging Radiology [facility] [address] [facility] [address] [facility] [place] [address] 02/25/2024 4:00 PM EST Office Visit Urology, [facility] [address] 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) Expected: 05/01/2023, Expires: 05/22/2024 LUNG VOLUMES (PLETHYSMOGRAPHY) Procedures Routine Chronic hypoxemic respiratory failure (HCC) COPD, group C, by GOLD 2017 classification (HCC) [place]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) Expected: 05/01/2023, Expires: 05/22/2024 SPIROMETRY B/A BRONCHODILATOR Procedures Routine Chronic hypoxemic respiratory failure (HCC) COPD, group C, by GOLD 2017 classification (HCC) [place]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) Expected: 05/01/2023, Expires: 05/22/2024 PULMONARY STRESS TESTING Procedures Routine Chronic hypoxemic respiratory failure (HCC) COPD, group C, by GOLD 2017 classification (HCC) [place]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) Expected: 04/25/2023, Expires: 05/22/2024 Health Maintenance Due Date Last Done Comments [...] as of this encounter Visit Diagnoses Diagnosis Chronic hypoxemic respiratory failure (HCC)- Primary Chronic respiratory failure COPD, group C, by GOLD 2017 classification (HCC) Paroxysmal nocturnal dyspnea Other dyspnea and respiratory abnormality HTN, goal below 140/90 Unspecified essential hypertension Gladwin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) Gladwin workers' pneumoconiosis documented in this encounter Care Teams Leach Cell Operator Relationship Specialty Start Date End Date Jody Arora MD [address] [place] [address] [place] [id number] PCP - General Family Medicine 11/21/21 documented as of this encounter
--- OUTSIDE RECORDS SUMMARY | 2023-05-15 03:27 | External Medical Summary | Summary of Care ---
Author Name Unknown Organization [facility] Address [address] [place] [address] Phone [phone] Care Team Providers Care Financial Intern Name Role Phone London Perales MD Primary Care Provide r Reason for Visit * Reason Comments Chronic Kidney Disease (CKD) Encounter Details Date Type Department Care Team (Late st Contact Info) Description 04/11/2023 10:40 AM EST Office Visit Nephrology, Mitzi Barajas [address] [facility] [place] [address] PatelRosy fine MD [address] [place] [address] CKD (chronic kidney disease) stage 5, GFR less than 15 ml/min ([facility])*; HTN, goal below 130/80; Persistent proteinuria, unspecified; Left renal mass; Papillary renal cell carcinoma (HCC); Metabolic acidosis; Benign hypertension with chronic kidney disease, stage IV (HCC); Hyperkalemia Allergies No known active allergiesdocumented as of this encounter (statuses as of 04/29/2023) Medications Medication Sig Dispensed Refills Start Date End Date Status nitroglycerin (NITROSTAT) 0.4 MG SUBL 1 Tablet. 0 9 Active Ventolin HFA 108 (90 Base) MCG/ACT Inhalation Aerosol SolutionIndication s:COPD exacerbation (HCC) Inhale by mouth 2 Puffs every 4 hours as needed for Wheezing. 18 g 1 2 Active Additional Information Patient not taking.Reported on 04/24/2023 Albuterol Sulfate (2.5 MG/3ML) 0.083% Inhalation Nebulization Solution (Proventil)Indicat ions:Pneumonia due to COVID-19 virus Inhale 1 Vial (2.5 mg) via nebulizer every 6 hours as needed for Wheezing. 360 mL 0 2 Active Additional Information Patient not taking.Reported on 04/24/2023 Melatonin 10 MG Oral Capsule Take 1 Capsule by mouth at bedtime. 0 Active Ipratropium-Albute rol 0.5-2.5 (3) MG/3ML Inhalation Solution (Duoneb)Indication s:Chronic hypoxemic respiratory failure (HCC),COPD, group C, by GOLD 2017 classification ([facility]) Inhale 3 mL via nebulizer every 4 hours as needed for Wheezing. 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 DO NOT CHEW,CRUSH OR CUT 90 Capsule 3 3 Active Menthol-Zinc Oxide 0.44-20.6 % External Ointment (Calmoseptine)Grace cations:Tinea cruris Apply to sore skin twice a day. 71 g 2 3 Active NIFEdipine ER 60 MG Oral Tablet Extended Release 24 Hour (Adalat CC) TAKE 1 TABLET BY MOUTH TWICE DAILY (MORNING AND BEFORE BEDTIME) 60 Tablet 11 3 Active Tamsulosin HCl 0.4 MG Oral Capsule (Flomax)Indication s:BPH without obstruction/lower urinary tract symptoms Take 1 capsule by mouth in the morning 90 Capsule 1 3 Active predniSONE 10 MG Oral Tablet (Deltasone)Indicat ions:COPD exacerbation (HCC) Take 5 tabs for 2 [...] mg tablet. 30 Tablet 5 3 Active Fluticasone-Salmet aleida 250-50 MCG/ACT Inhalation Aerosol Powder Breath Activated (Advair Diskus)Indications :COPD, group C, by GOLD 2017 classification ([facility] [...] or more.. 180 Tablet 3 4 Active Rosuvastatin Calcium 40 MG Oral Tablet (Crestor) Take 1 Tablet by mouth in the morning. 90 Tablet 3 3 024 Discontinued Sodium Bicarbonate 650 MG Oral Tablet Take 1 Tablet by mouth in the morning and 1 Tablet before bedtime. 120 Tablet 11 3 024 Discontinued hydrALAZINE HCl 25 MG Oral Tablet (Apresoline) Take 1 tablet by mouth twice daily 180 Tablet 2 3 Discontinued Doxycycline Hyclate 100 MG Oral CapsuleIndications :Skin ulcer, limited to breakdown of skin ([facility]) Take 1 Capsule by mouth in the morning and 1 Capsule before bedtime. Do all this for 7 days. Take for 7 days. 14 Capsule 0 3 Discontinued Furosemide 40 MG Oral Tablet (Lasix) Take 1 Tablet by mouth in the morning. Take one tablet in AM with one 20mg tablet for a total of 60mg daily.. 90 Tablet 3 3 024 Discontinued Furosemide 40 MG Oral Tablet (Lasix) Take 1 Tablet by mouth in the morning. along with one 20 mg tablet daily. 30 Tablet 5 3 024 Discontinued(Tn dication List Clean Up) hydrOXYzine HCl 50 MG Oral TabletIndications: Primary insomnia TAKE 1 TABLET BY MOUTH AT BEDTIME NEEDED FOR INSOMNIA 30 Tablet 0 4 024 Discontinued documented as of this encounter (statuses as of 04/29/2023) Active Problems Problem Noted Date Diagnosed Date [place] miners' pneumoconiosis 04/24/2023 Papillary renal cell carcinoma [...] renal mass 07/11/2017 Overview: 2018 biopsy at [facility] per patient "kidney cancer". States he was advised he was not a surgical candidate. Carotid stenosis, right 07/11/2017 History of stroke 07/11/2017 Overview: TIA vs lacunar stroke diagnosed on head CT in [place] Apr 2017. Follow up MRI [facility] no infarct. Anxiety 07/11/2017 HTN, goal below 140/90 08/02/2015 Coronary artery disease Dyslipidemia, goal LDL below 100 documented as of this encounter (statuses as of 04/29/2023) Resolved Problems Problem Noted Date Diagnosed Date [...] as of this encounter (statuses as of 04/29/2023) Immunizations Name Administration Dates Next Due COVID-19 [...] Sign Reading Time Taken Comments Blood Pressure 121/47 04/11/2023 11:26 AM EST Pulse 74 04/11/2023 11:26 AM EST Temperature 35.9 C (96.7 F) 04/11/2023 11:[address] Respiratory Rate 22 04/11/2023 11:26 AM EST Oxygen Saturation 90% 04/11/2023 11:26 AM EST Inhaled Oxygen Concentration - - Weight 86.2 kg (190 lb) 04/11/2023 11:26 AM EST Height - - Body Mass Index 32.61 11/13/2022 9:14 AM EDT documented in this encounter Patient Instructions * Patient Instructions* Rosy Patel MD - 04/11/2023 11:56 AM EST -change lasix from 40 mg in AM and 20 mg in PM to lasix to 40 mg two daily doses at least 4 hrs apart -lower hydralazine to 10 mg twice daily -after about a week or 10 days on new med, recheck kidney function and potassium -no change to other medicines for now -avoid medicines like aleve, advil, ibuprofen, aspirin more than 81 mg daily and other NSAIDS whichare not good for kidney patients. Take only tylenol (acetaminophen) up to 2000 mg daily as needed for pain or as directed by your primary care provider. documented in this encounter Progress Notes * Rosy Patel MD - 04/11/2023 11:40 AM EST NEPHROLOGY CLINIC NOTE Nephrology, [address] [address] 04/11/2023, 11:40 AM Patient Name: Justin Pinedo BACKGROUND: 82 year old male presents for close in f/u of progressive ckd 4 verging on CKD 5 and 1.5 grams of proteinuria from tobacco abuse, htn and advanced age; high ESRD risk. PMH includes severe lung dz, stroke w/ residual R leg weakness and R arm pain, renal cell carcinoma, CAD, monoclonal gammopathy follows w/ [facility]. History of late acute/subacute lacunar infarct of the right posterior temporal/occipital white matter -- picked up during 04/2017 HTN urgency admission. Hx HTN since 1998. Sees [facility] urologist in [place] annually >> for 2.6 cm left renal cell CA but not a surgical candidate; also prostatic hypertropy. 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 Hx of dvt and pe in the 1970s of unclear etiology. Hx of skin cancer. Hx of hyperkalemia, improved with avoiding high k foods. Covid Feb 2021; got mAb; no residual issues. Follows w/ Dr Olmtsead [facility] cardiology. Pt withCAD > VT in 1998 and one stent in 1998 at [place]. Hx of smoking cigarettes/cigars until the . has marked RLS. Fell down steps 2021 but "saved the turkey." Falls often. Had extensive course of antifungals fall 2017 for mycotic pulmonary infection>>Admission summer 2017 [place] [facility] RML, higher K -- in fall 2017, diagnosed with pulmonary fungal infection and started on itraconazole. Follows w/ [facility] pulm, last seen 02/2019. also follows with local tip cementer Dr Jain. Since health events 2018 (stroke, PNA, pulmonary fungal infection), much poorer functional status>> prior to summer 2017 illness could do 9 holes golf w/o issue, could haddad/fish - limited by energy; not limited by breathing. 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 Huffs and puffs to walk 50 yards on flat and tired but could still talk; but breathing better than it had been earlier fall when he would have had to sit and rest to walk same distance same surface. May 2020 walks 50 feet before needing to sit/rest. Admitted [facility] February 01 to 2021 with acute on chronic kidney injury as well as pneumonia from COVID-19. Admission creatinine 4.2, peak creatinine 4.6, plateau around 4. TRACY from [facility] related to ischemia and hypoxia. No nsaids. 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 Continues to work with mental health and addiction counseling on week days. TODAY 04/11/2023: no acut einterval events. His younger brother from bone CA. Breathing is worse and worse he states. His breathing is worse he states w/ the least bit of exertion. Ongoing pilonidal cyst concerns Thinks abd girth increaseing, though he's working at smaller portions/ less ice creat Acc by his today REVIEW OF SYSTEMS General: No fatigue, small wt loss Head: No significant headache Respiratory: + chronic cough mainly in the morning; No wheezing, + worsening shortness of breath -with exertion melvin and at times w/ moving; chronic orthopnea sleeps in recliner x one year Cardiovascular:No chest pain, No palpitations, and No syncope Gastrointestinal: No nausea, vomiting, diarrhea No blood in stools No abdominal pain >> againnoting more abd girth since last visit Urinary: No dysuira, No hematuria. No flank pain; chronic nocturia > q 1 hr Musculoskeletal: No muscle/joint pains , + chronic edema of LE dependent; no futher leg cramps; L leg weak Skin: No itching No orthostatic or presyncopal sx; fell getting gas the other day; falls often Current Outpatient Medications Medication Sig Dispense Refill Ventolin HFA 108 (90 Base) MCG/ACT Inhalation Aerosol Solution Inhale by mouth 2 Puffs every 4 hours as needed for Wheezing. (Patient not taking: Reported on 04/24/2023) 18 g 1 Melatonin 10 MG Oral Capsule Take 1 Capsule by mouth at bedtime. (Patient not taking: Reported on 04/24/2023) Carvedilol 3.125 MG Oral Tablet (Coreg) Take 1 tablet by mouth twice daily with food 180 Tablet 1 Venlafaxine HCl ER 37.5 MG Oral Capsule Extended Release 24 Hour (Effexor XR) TAKE 1 CAPSULE BY MOUTH ONCE DAILY . DO NOT CHEW,CRUSH OR CUT 90 Capsule 3 NIFEdipine ER 60 MG Oral Tablet Extended Release 24 Hour (Adalat CC) TAKE 1 TABLET BY MOUTH TWICE DAILY (MORNING AND BEFORE BEDTIME) 60 Tablet 11 Tamsulosin HCl 0.4 MG Oral Capsule (Flomax) Take 1 capsule by mouth in the morning 90 Capsule 1 Furosemide 20 MG Oral Tablet (Lasix) Take 1 Tablet by mouth in the morning. Along with one 40 mg tablet. 30 Tablet 5 Fluticasone-Salmeterol 250-50 MCG/ACT Inhalation Aerosol Powder Breath Activated (Advair Diskus) Inhale 1 Puff by mouth in the morning and 1 Puff before bedtime. 60 Each 1 hydrALAZINE HCl 10 MG Oral Tablet (Apresoline) Take 1 Tablet by mouth in the morning and 1 Tablet before bedtime. 60 Tablet 11 Furosemide 40 MG Oral Tablet (Lasix) Take 1 Tablet by mouth in the morning and 1 Tablet before bedtime. Take doses at least 4 hours apart or more.. 180 Tablet 3 nitroglycerin (NITROSTAT) 0.4 MG SUBL 1 Tablet. Albuterol Sulfate (2.5 MG/3ML) 0.083% Inhalation Nebulization Solution (Proventil) Inhale 1 Vial (2.5 mg) via nebulizer every 6 hours as needed for Wheezing. (Patient not taking: Reported on 04/24/2023) 360 mL 0 Ipratropium-Albuterol 0.5-2.5 (3) MG/3ML Inhalation Solution (Duoneb) Inhale 3 mL via nebulizer every 4 hours as needed for Wheezing. (Patient not taking: Reported on 04/24/2023) 120 mL 1 Menthol-Zinc Oxide 0.44-20.6 % External Ointment (Calmoseptine) Apply to sore skin twice a day. 71 g 2 predniSONE 10 MG Oral Tablet (Deltasone) Take 5 tabs for 2 days, 4 tabs for 2 days, 3 tabs for 2 days, 2 tabs for 2 days 1 tab for 2 days (Patient not taking: Reported on 04/11/2023) 30 Tablet 0 Furosemide 20 MG Oral Tablet (Lasix) Take 1 Tablet by mouth in the morning. Along with one 40mg tablet to equal 60mg total daily.. 90 Tablet 3 Sodium Bicarbonate 650 MG Oral Tablet TAKE 2 TABLETS BY MOUTH IN THE MORNING AND 2 BEFORE BEDTIME 120 Tablet 0 hydrOXYzine HCl 50 MG Oral Tablet TAKE 1 TABLET BY MOUTH AT BEDTIME NEEDED FOR INSOMNIA 30 Tablet 0 Rosuvastatin Calcium 10 MG Oral Tablet (Crestor) Take 1 Tablet by mouth in the morning. 90 Tablet 1 oxygen IN GAS Use 4 L/min(Oxygen) as directed. Uses "in the evening" Spiriva Respimat 2.5 MCG/ACT Inhalation Aerosol Solution (Tiotropium [place]aney Monohydrate) Inhale 2 Puffs by mouth in the morning. 4 g 2 Current Facility-Administered Medications Medication Dose Route Frequency Provider Last Rate Last Admin Albuterol Sulfate (Proventil) (5 MG/ML) 0.5% *conc* inhalation solution 2.5 mg 2.5 mg Nebulizer PRGilbert Villar MD Albuterol Sulfate (Proventil) (2.5 MG/3ML) 0.083% inhalation solution 2.5 mg 2.5 mg Nebulizer PRN Gilbert Thomas MD Review of patient's allergies indicates: No Known Allergies PHYSICAL EXAMINATION: BP Readings from Last 6 Encounters: 04/24/23 140/64 04/11/23 121/47 03/04/23 141/55 03/04/23 142/66 01/24/23 134/70 01/23/23 158/60 Wt Readings from Last 6 Encounters: 04/24/23 88.9 kg (196 lb) 04/11/23 86.2 kg (190 lb) 03/04/23 89.5 kg (197 lb 6.4 oz) 03/04/23 89.9 kg (198 lb 3.2 oz) 01/24/23 82.6 kg (182 lb) 01/23/23 82.8 kg (182 lb 9.6 oz) Pulse Readings from Last 6 Encounters: 04/24/23 90 04/11/23 74 03/04/23 86 03/04/23 88 01/23/23 73 11/30/22 75 NAD, oriented x 3, ambulatory w/ cane, not visibly toxic looking Normocephalic, atraumatic, eomi nonicteric sclerae MMM Supple neck RRR w/o m/g/r; no edema CTAB w/ reasonable air mvt NT abd, +BS, soft No cyanosis or clubbing No rash No tremor, focal or global weakness; fluent speech, ?reliable historian at times LABS: Recent Labs Units 04/04/23 1117 03/19/23 0000 03/04/23 1618 01/23/23 1026 12/28/22 1334 SODIUM - [facility] mmol/L 141 -- 141 142 141 POTASSIUM - [facility] mmol/L 5.3* -- 5.5* 5.1 4.9 POTASSIUM-OUTSIDE LAB MMOL/L -- 4.8 -- -- -- CHLORIDE - [facility] mmol/L 105 -- 103 104 103 CO2 - [facility] mmol/L EGFR-OUTSIDE LAB ML/MIN -- 12* -- -- -- BUN - [facility] mg/dL 69* -- 74* 87* 60* CREATININE - [facility] mg/dL 3.6* -- 4.2* 4.8* 3.7* CREATININE-OUTSIDE LAB MG/DL -- 4.57* -- -- -- ESTIMATED GLOMERULAR FILTRATION RATE - [facility] mL/min 16* -- 13* 11* 16* Recent Labs Units 02/25/23 0000 12/24/22 0000 11/30/22 1543 06/20/22 1213 HGB - [facility] g/dL -- -- 9.3* 9.5* HEMOGLOBIN-OUTSIDE LAB G/DL 9.0* 9.0* -- -- TRANSFERRIN SATURATION PERCENT - [facility] % -- -- 25 -- Recent Labs Units 04/04/23 1117 03/19/23 0000 03/04/23 1618 01/23/23 1026 12/28/22 1334 12/20/22 1227 11/30/22 1543 08/08/22 1236 07/12/22 1350 12/07/21 1115 07/19/21 1601 CALCIUM - [facility] mg/dL 8.5 -- 8.7 8.7 8.5 < > 8.2* < > 8.3* < > 8.7 PHOSPHORUS - [facility] mg/dL 4.8 -- 5.2* -- -- -- 5.5* -- 4.8 < > 4.7 PHOSPHORUS-OUTSIDE LAB MG/DL -- 5.7* -- -- -- -- -- -- -- -- -- 25-HYDROXY VITAMIN D - [facility] ng/mL -- -- -- -- -- -- -- -- PTH - [facility] pg/mL -- -- -- -- -- -- 155* -- 206* -- 76* < > = values in this interval not displayed. Recent Labs Units 12/07/21 1115 HEMOGLOBIN A1C - [facility] % 6.3* Recent Labs Units 08/08/22 1243 12/07/21 1115 07/19/21 1601 ALBUMIN / CREATININE RATIO, URINE - [facility] mg/g Creat 840* 1,232* 1,762* Recent Labs Units 08/08/22 1243 12/27/21 1206 08/10/21 0000 07/19/21 1601 CLARITY, URINE - [facility] Clear Clear -- Clear GLUCOSE, URINE - [facility] mg/dL Negative Negative -- Negative BILIRUBIN, URINE - [facility] Negative Negative -- Negative KETONE, URINE - [facility] mg/dL Negative Negative -- Negative SPECIFIC GRAVITY, URINE - [facility] 1.010 1.012 -- 1.013 BLOOD, URINE - [facility] Negative Negative -- Negative PH, URINE - [facility] Units 6.0 6.5 -- 6.0 PROTEIN, URINE - [facility] mg/dL 30* >300* -- >300* PROTEIN, UA-OUTSIDE LAB -- -- 169* -- UROBILINOGEN, URINE - [facility] mg/dL Normal Normal -- Normal NITRITE, URINE - [facility] Negative Negative -- Negative ESTERASE, URINE - [facility] Negative Negative -- Negative BACTERIA, URINE - [facility] /HPF 0-25 0-25 -- 0-25 WBC, URINE - [facility] /HPF 0-2 0-2 -- 0-2 RBC, URINE - [facility] /HPF 0-2 0-2 -- 0-2 ASSESSMENT AND PLAN: CKD (chronic kidney disease) stage 5, GFR less than 15 ml/min ([facility]) (Primary) - BASIC METABOLIC PANEL; Future; Expected date: 04/18/2023 HTN, goal below 130/80 - BASIC METABOLIC PANEL; Future; Expected date: 04/18/2023 Persistent proteinuria, unspecified Left renal mass Papillary renal cell carcinoma (HCC) Metabolic acidosis Benign hypertension with chronic kidney disease, stage IV (HCC) Hyperkalemia - BASIC METABOLIC PANEL; Future; Expected date: 04/18/2023 Other orders - hydrALAZINE HCl 10 MG Oral Tablet (Apresoline); Take 1 Tablet by mouth in the morning and 1 Tablet before bedtime. - Furosemide 40 MG Oral Tablet (Lasix); Take 1 Tablet by mouth in the morning and 1 Tablet before bedtime. Take doses at least 4 hours apart or more.. Follow Up: Return in about 6 weeks (around 05/23/2023) for clinic visit w/ . | For: clinic visit w/ | Check-out note: Waitlist Ckd5 nearing need for dialysis but not there currently has avf ready to go; plans to do ICHD when time comes at [facility]. Not a renal txplt candidate in part d/t RCC Mild vol OL and hyperkalemia today -lasix change as above -continue sodium bicarb current dose to contol K and acidosis -f/u labs as velow Htn controlled but needs more lasix so reduce hydralazine -continue nifedipine, coreg current doses -lower hydralazine and up lasix as below L RCC for observation now per urology and oncology; may complicate need for ASHLI when dialysis starts and will need to review at that time Patient Instructions -change lasix from 40 mg in AM and 20 mg in PM to lasix to 40 mg two daily doses at least 4 hrs apart -lower hydralazine to 10 mg twice daily -after about a week or 10 days on new med, recheck kidney function and potassium -no change to other medicines for now -avoid medicines like aleve, advil, ibuprofen, aspirin more than 81 mg daily and other NSAIDS whichare not good for kidney patients. Take only tylenol (acetaminophen) up to 2000 mg daily as needed for pain or as directed by your primary care provider. Rosy Patel MD Nephrology, [address] [place] [address] CC: Ref: LONDON PERALES[[id number]] [address] [place] [address] [place] [id number] (office) [phone] (fax) PCP: LONDON PERALES [address] [place] [address] [place] [address] [phone] This chart was completed in part utilizing [employer] Direct Speech Voice Recognition Software. Randomword insertions, pronoun errors, and incomplete sentences are an occasional consequence of this system due to software limitations, and ambient noise. Any questions or concerns about the content, text, or information contained within the body of this dictation should be directly addressed to the provider for clarification. documented in this encounter Nursing Notes * Gabby Sosa RN - 04/11/2023 11:29 AM EST Follow up visit today. Was recently started on in inhaler for the shortness of breath. present in room. States he remains short of breath but not extrwmely noticeable after ambulation. Is able tospeak in full sentences without shortness of breath. Feels his swelling is primarily around his belly. documented in this encounter Plan of Treatment Upcoming Encounters Date Type Department Care Team (Late st Contact Info) Description 12/04/2023 11:40 AM EDT Office Visit Nephrology, [facility] [address] [facility] [place] [address] Rosy Patel MD [address] [facility] [place] [address] 02/10/2024 1:00 PM EST Imaging Radiology [facility] [address] [facility] [address] [facility] [place] [address] 02/25/2024 4:00 PM EST Office Visit Urology, [facility] [address] [facility] [place] [address] Cameron Romeo MD [address] [facility] [address] [place] [address] Scheduled Orders Name Type Priority Associated Diagnoses Orde r Schedule BASIC METABOLIC PANEL Lab Routine CKD (chronic kidney disease) stage 5, GFR less than 15 ml/min (HCC) HTN, goal below 130/80 Hyperkalemia Expected: 04/18/2023 (Approximate), Expires: 04/11/2024 Health Maintenance Due Date Last Done Comments [...] 11/30/2022, Additional history exists Phosphate 04/04/2024 04/04/2023, 010 04/2023, 03/04/2023, Additional history exists Nephrology Referral [...] as of this encounter Visit Diagnoses Diagnosis CKD (chronic kidney disease) stage 5, GFR less than 15 ml/min (HCC)- Primary Chronic kidney disease, Stage V HTN, goal below 130/80 Unspecified essential hypertension Persistent proteinuria, unspecified Left renal mass Unspecified disorder of kidney and ureter Papillary renal cell carcinoma (HCC) Metabolic acidosis Acidosis Benign hypertension with chronic kidney disease, stage IV (HCC) Benign hypertensive kidney disease with chronic kidney disease stage I through stage IV, or unspecified Hyperkalemia Hyperpotassemia documented in this encounter Care Teams Financial Intern Relationship Specialty Start Date End Date London Perales MD [address] [place] [address] [place] [id number] PCP - General Family Medicine 11/21/21 documented as of this encounter
--- OUTSIDE RECORDS SUMMARY | 2023-05-15 03:27 | External Medical Summary | Summary of Care ---
Author Name Unknown Organization [facility] Address [address] [place] [address] Phone [phone] Care Team Providers Care Rug Dyer Helper Name Role Phone Jody Arora MD Primary Care Provide r Reason for Visit * Reason Onset Date Comments Pre Cert/Prior Auth 04/15/2023 Encounter Details Date Type Department Care Team (Late st Contact Info) Description 04/15/[address] [facility] [address] [place] [address] Sergio Jung, [address] [place] [phone] Pre Cert/Prior Auth Allergies No known active allergiesdocumented as of this encounter (statuses as of 04/25/2023) Medications Medication Sig Dispensed Refills Start Date [...] (HCC),COPD, group C, by GOLD 2017 classification ([facility]) Inhale 3 mL via nebulizer [...] OPD, group C, by GOLD 2017 classification (HCC) [...] or more.. 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 States he was advised he was not a surgical candidate. Carotid stenosis, right 07/11/2017 History of stroke 07/11/2017 Overview: TIA vs lacunar stroke diagnosed on head CT in [place] Apr 2017. Follow up MRI [facility] no infarct. Anxiety 07/11/2017 HTN, goal below 140/90 08/02/2015 Coronary artery disease Dyslipidemia, goal LDL below 100 documented as of this encounter (statuses as of 04/25/2023) Resolved Problems Problem Noted Date Diagnosed Date [...] as of this encounter (statuses as of 04/25/2023) Immunizations Name Administration Dates Next Due COVID-19 [...] Miscellaneous Notes * Telephone Encounter - Debi Roberto OSA - 04/25/2023 9:46 AM EST Received fax from Medicare stating that procedure code 15393 does not require prior auth. See scanned documents. MOLLY Magana 04/25/2023 9:47 AM * Telephone Encounter - Debi Roberto OSA - 04/15/2023 10:18 AM EST Submitted clinic notes, photos, HVF to insurance company via mail. MOLLY Magana 04/15/2023 10:18 AM documented in this encounter Plan of Treatment Upcoming Encounters Date Type Department Care Team (Late st Contact Info) Description 12/04/2023 11:40 AM EDT Office Visit Nephrology, [facility] [address] [place] [address] Rosy Patel MD 200 [facility] [place] [address] 02/10/2024 1:00 PM EST Imaging Radiology [facility] 132 [facility] [place] [address] 02/25/2024 4:00 PM EST Office Visit Urology, [facility] 132 [facility] [place] [address] Cameron Romeo MD 27 [facility] [address] [place] [address] Health Maintenance Due Date Last Done Comments [...] filedocumented as of this encounter Care Teams Rug Dyer Helper Relationship Specialty Start Date End Date Jody Arora MD [address] [place] [address] [place] [phone] PCP - General Family Medicine 11/21/21 documented as of this encounter
--- OUTSIDE RECORDS SUMMARY | 2023-05-15 03:28 | External Medical Summary | Summary of Care ---
Author Name Unknown Organization [facility] Address [address] [place] [address] Phone [phone] Care Team Providers Care Dock Guard Name Role Phone Jody Arora MD Primary Care Provide r Encounter Details Date Type Department Care Team (Late st Contact Info) Description 04/04/2023 Telephone [facility] [address], [place] [phone] Smita Garcia RN [address] [place] [address] Allergies No known active allergiesdocumented as of this encounter (statuses as of 04/04/2023) Medications Medication Sig Dispensed Refills Start Date End Date Status nitroglycerin (NITROSTAT) 0.4 MG SUBL 1 Tablet. 0 08/19/2018 Active Ventolin HFA 108 (90 Base) MCG/ACT Inhalation Aerosol SolutionIndications:C OPD exacerbation (HCC) Inhale by mouth 2 Puffs every 4 hours as needed for Wheezing. 18 g 1 11/22/2021 Active Albuterol Sulfate (2.5 MG/3ML) 0.083% Inhalation Nebulization Solution (Proventil)Indication s:Pneumonia due to COVID-19 virus Inhale 1 Vial (2.5 mg) via nebulizer every 6 hours as needed for Wheezing. 360 mL 0 02/09/2022 Active Rosuvastatin Calcium 40 MG Oral Tablet (Crestor) Take 1 Tablet by mouth in the morning. 90 Tablet 3 04/24/2022 Active Sodium Bicarbonate 650 MG Oral Tablet Take 1 Tablet by mouth in the morning and 1 Tablet before bedtime. 120 Tablet 11 05/09/2022 Active Melatonin 10 MG Oral Capsule Take 1 Capsule by mouth at bedtime. 0 Active Ipratropium-Albuterol 0.5-2.5 (3) MG/3ML Inhalation Solution (Duoneb)Indications:C hronic hypoxemic respiratory failure (HCC),COPD, group C, by GOLD 2017 classification ([facility]) Inhale 3 mL via nebulizer every 4 hours as needed for Wheezing. 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 DO NOT CHEW,CRUSH OR CUT 90 Capsule 3 01/22/2023 Active Menthol-Zinc Oxide 0.44-20.6 % External Ointment (Calmoseptine)Indicat ions:Tinea cruris Apply to sore skin twice a day. 71 g 2 01/24/2023 Active NIFEdipine ER 60 MG Oral Tablet Extended Release 24 Hour (Adalat CC) TAKE 1 TABLET BY MOUTH TWICE DAILY (MORNING AND BEFORE BEDTIME) 60 Tablet 11 02/01/2023 Active Tamsulosin HCl 0.4 MG Oral Capsule (Flomax)Indications:B PH without obstruction/lower urinary tract symptoms Take 1 capsule by mouth in the morning 90 Capsule 1 02/28/2023 Active predniSONE 10 MG Oral Tablet (Deltasone)Indication s:COPD exacerbation (HCC) Take 5 tabs for 2 days, 4 tabs for 2 days, 3 tabs for 2 days, 2 tabs for 2 days 1 tab for 2 days 30 Tablet 0 03/04/2023 Active Furosemide 40 MG Oral Tablet (Lasix) Take 1 Tablet by mouth in the morning. Take one tablet in AM with one 20mg tablet for a total of 60mg daily.. 90 Tablet 3 03/08/2023 Active Furosemide 20 MG Oral Tablet (Lasix) Take 1 Tablet by mouth in the morning. Along with one 40mg tablet to equal 60mg total daily.. 90 Tablet 3 03/08/2023 Active Furosemide 40 MG Oral Tablet (Lasix) Take 1 Tablet by mouth in the morning. along with one 20 mg tablet daily. 30 Tablet 5 03/08/2023 Active Furosemide 20 MG Oral Tablet (Lasix) Take 1 Tablet by mouth in the morning. Along with one 40 mg tablet. 30 Tablet 5 03/08/2023 Active hydrOXYzine HCl 50 MG Oral TabletIndications:Celine sharron insomnia TAKE 1 TABLET BY MOUTH AT BEDTIME NEEDED FOR INSOMNIA 30 Tablet 0 03/19/2023 Active Fluticasone-Salmetero l 250-50 MCG/ACT Inhalation Aerosol Powder Breath Activated (Advair Diskus)Indications:CO PD, group C, by GOLD 2017 classification (HCC) Inhale 1 Puff by mouth in the morning and 1 Puff before bedtime. 60 Each 1 04/03/2023 Active documented as of this encounter (statuses as of 04/04/2023) Active Problems Problem Noted Date Diagnosed Date [...] renal mass 07/11/2017 Overview: 2018 biopsy at [facility]/[place] per patient "kidney cancer". States he was advised he was not a surgical candidate. Carotid stenosis, right 07/11/2017 History of stroke 07/11/2017 Overview: TIA vs lacunar stroke diagnosed on head CT in [place] Apr 2017. Follow up MRI [facility] no infarct. Anxiety 07/11/2017 HTN, goal below 140/90 08/02/2015 Coronary artery disease Dyslipidemia, goal LDL below 100 documented as of this encounter (statuses as of 04/04/2023) Resolved Problems Problem Noted Date Diagnosed Date [...] as of this encounter (statuses as of 04/04/2023) Immunizations Name Administration Dates Next Due COVID-19 [...] encounter Miscellaneous Notes * Telephone Encounter - Smita Garcia RN - 04/04/2023 2:18 PM EST Pt was ordered Advair and said he did not pickling drum operator d/t cost. $138. Is there any assistance? Smita Garcia RN Kidney Transitions Specialist CKD Linen Manager documented in this encounter Plan of Treatment Upcoming Encounters Date Type Department Care Team (Late st Contact Info) Description 04/08/2023 9:30 AM EST Office Visit Ophthalmology, [facility] [address] [place] [address] Sergio Jung, DO [address] [place] [address] 04/11/2023 10:40 AM EST Office Visit Nephrology, [facility] 200 [facility] [place] [address] Rosy Patel MD 200 [facility] [place] [address] 04/24/2023 1:00 PM EST Office Visit Pulmonary Medicine, [address] [place] [address] Gilbert Thomas MD [address] [place] [address] 12/04/2023 11:40 AM EDT Office Visit Nephrology, [facility] 200 [facility] [place] [address] Rosy Patel MD 200 [facility] [place] [address] 02/10/2024 1:00 PM EST Imaging Radiology [facility] [address] [place] [address] 02/25/2024 4:00 PM EST Office Visit Urology, [facility] 132 [facility] [place] [address] Cameron Romeo MD [address] [place] [address] [place] [address] Health Maintenance Due Date Last Done Comments Alpha-1 Antitrypsin 1958 *COPD SEVERITY VERIFIED BY PFT 07/16/2020 Depression Screening 02/28/2021 02/29/2020 Hepatitis B (3 of 3 - 19+ 3-dose series) 03/20/2023 01/23/2023, 01/08/2018 Albumin/Creatinine Ratio 08/09/2023 023, 12/07/2021, 08/10/2021, Additional history exists GFR 09/17/2023 03/19/2023, 02/15, 01/23/2023, Additional history exists PTH 12/01/2023 11/30/2022, 06/17, 07/19/2021, Additional history exists Hgb 02/26/2024 02/25/2023, 1011/2022, 11/30/2022, Additional history exists Nephrology Referral 03/04/2024 03/04/2023 O2 ASSESSMENT COMPLETED IN PAST YEAR FOR COPD 03/04/2024 03/04/2023 Phosphate 03/19/2024 03/19/2023, 02/15, 11/30/2022, Additional history exists DTaP,Tdap,and Td Vaccines (2 - Td or [...] filedocumented as of this encounter Care Teams Dock Guard Relationship Specialty Start Date End Date Jody Arora MD [address] [place] [address] [place] [address] PCP - General Family Medicine 11/21/21 documented as of this encounter
--- OUTSIDE RECORDS SUMMARY | 2023-05-15 03:28 | External Medical Summary | Summary of Care ---
Author Name Unknown Organization [facility] Address [address] [place] [facility] [place] [address] Phone [phone] Care Team Providers Care Playground Worker Name Role Phone Jody Arora MD Primary Care Provide r Encounter Details Date Type Department Care Team (Late st Contact Info) Description 04/15/2023 Orders Only PATIENT PORTAL DO NOT DELETE THIS DEPT USED BY [place] [address] Allergies No known active allergiesdocumented as of this encounter (statuses as of 04/15/2023) Medications Medication Sig Dispensed Refills Start Date [...] C, by GOLD 2017 classification ([facility]) Inhale 3 mL via nebulizer every 4 hours as needed for Wheezing. 120 mL 1 10/17/2022 Active Carvedilol 3.125 MG Oral Tablet (Coreg) [...] 03/08/2023 Active hydrOXYzine HCl 50 MG Oral TabletIndications:Pr imary insomnia TAKE 1 TABLET BY MOUTH AT BEDTIME NEEDED FOR INSOMNIA 30 Tablet 0 03/19/2023 Active Fluticasone-Salmeter ol 250-50 MCG/ACT Inhalation Aerosol [...] as of this encounter (statuses as of 04/15/2023) Active Problems Problem Noted Date Diagnosed Date [...] renal mass 07/11/2017 Overview: 2018 biopsy at [facility] per patient "kidney cancer". States he was advised he was not a surgical candidate. Carotid stenosis, right 07/11/2017 History of stroke 07/11/2017 Overview: TIA vs lacunar stroke diagnosed on head CT in [place] Apr 2017. Follow [facility] no infarct. Anxiety 07/11/2017 HTN, goal below 140/90 08/02/2015 Coronary artery disease Dyslipidemia, goal LDL below 100 documented as of this encounter (statuses as of 04/15/2023) Resolved Problems Problem Noted Date Diagnosed Date [...] as of this encounter (statuses as of 04/15/2023) Immunizations Name Administration Dates Next Due COVID-19 [...] on file documented as of this encounter Plan of Treatment Upcoming Encounters Date Type Department Care Team (Late st Contact Info) Description 04/24/2023 1:00 PM EST Office Visit Pulmonary Medicine, [facility] 132 [facility] [place] [address] Gilbert Thomas MD [address] [place] [address] 12/04/2023 11:40 AM EDT Office Visit Nephrology, [facility] [address] [place] [address] Rosy Patel MD [address] [place] [address] 02/10/2024 1:00 PM EST Imaging Radiology [facility]st [facility] 132 [facility] [place] [address] 02/25/2024 4:00 PM EST Office Visit Urology, [facility] 132 [facility] [place] [address] Cameron Romeo MD 27 [facility] [place] [address] [place] [address] Health Maintenance [...] 02/26/2024 02/25/2023, 1011/2022, 11/30/2022, Additional history exists Phosphate 04/04/2024 04/04/2023, [...] filedocumented as of this encounter Care Teams Playground Worker Relationship Specialty Start Date End Date Jody Arora MD [address] [place] [address] [place] [address] PCP - General Family Medicine 11/21/21 documented as of this encounter
--- OUTSIDE RECORDS SUMMARY | 2023-05-15 03:28 | External Medical Summary | Summary of Care ---
Author Name Unknown Organization [facility] Address [address] [place] [address] Phone [phone] Care Team Providers Care Bandage Wrapping Machine Operator Name Role Phone Jody Perales MD Primary Care Provide r Reason for Visit * Reason Comments eRx-Medication Refill Encounter Details Date Type Department Care Team (Late st Contact Info) Description 04/15/2023 Refill Family Medicine [address] [address] Trace Calhoun MD [address] [place] [address] [place] [address] Primary insomnia Allergies No known active [...] for Wheezing. 360 mL 0 2 Active Rosuvastatin Calcium 40 MG Oral Tablet (Crestor) Take 1 Tablet by mouth in the morning. 90 Tablet 3 3 Active Melatonin 10 MG Oral Capsule Take 1 Capsule by mouth at bedtime. 0 Active Ipratropium-Albuter ol 0.5-2.5 (3) MG/3ML Inhalation Solution (Duoneb)Indications :Chronic hypoxemic respiratory failure (HCC),COPD, group C, by GOLD 2017 classification ([facility]) Inhale 3 mL via nebulizer every [...] FOR INSOMNIA 30 Tablet 0 4 Active hydrOXYzine HCl 50 [...] renal mass 07/11/2017 Overview: 2018 biopsy at [facility] per patient "kidney cancer". States he was advised he was not a surgical candidate. Carotid stenosis, right 07/11/2017 History of stroke 07/11/2017 Overview: TIA vs lacunar stroke diagnosed on head CT in [place] Apr 2017. Follow up MRI [facility] no infarct. Anxiety 07/11/2017 HTN, goal [...] encounter Miscellaneous Notes * Telephone Encounter - Jody Perales MD - 04/16/2023 11:38 AM EST Signed Prescriptions: Disp Refills hydrOXYzine HCl 50 MG Oral Tablet 30 Tab*0 Sig: TAKE 1 TABLET BY MOUTH AT BEDTIME NEEDED FOR INSOMNIA Authorizing Provider: JODY PERALES * Telephone Encounter - Mikala Simpson [facility] - 04/16/2023 11:33 AM EST Pending Prescriptions: Disp Refills hydrOXYzine HCl 50 MG Oral Tablet 30 Tab*0 Sig: TAKE 1 TABLET BY MOUTH AT BEDTIME NEEDED FOR INSOMNIA * Telephone Encounter - Mikala Simpson [facility] - 04/16/2023 11:32 AM EST [facility] is currently not authorized to approve refills for hydroxyzine for sleep per refill protocol. Please approve if appropriate. Thank you, Mikala Simpson, PharmD Clinical Pharmacist Centralized Clinical Pharmacy Services (formally Telepharmacy) [phone] 04/16/2023 11:32 AM Pending Prescriptions: Disp Refills hydrOXYzine HCl 50 MG Oral Tablet 30 Tab*0 Sig: TAKE 1 TABLET BY MOUTH AT BEDTIME NEEDED FOR INSOMNIA Last Visit: 03/04/2023 (in office), 03/09/2022 (telemedicine) Next Visit: Visit date not found If no future appointments scheduled, and last appointment is greater than a year ago, please schedule patient for a follow-up appointment Last date the medication was ordered: 03/19/2023 Pharmacy: [facility] [address] [place] [address] Is this request for a controlled substance? No Urine Drug Screen:No results found for this or any previous visit. Patient Phone Numbers Labs: Lab Results Component Value Date/Time CREAT 3.6 (H) 04/04/2023 11:17 AM CREAT 4.57 (A) 03/19/2023 12:00 AM CREAT 2.5 (H) 03/24/2020 12:33 PM POTASSIUM 5.3 (H) 04/04/2023 11:17 AM POTASSIUM 4.8 03/19/2023 12:00 AM POTASSIUM 4.8 03/24/2020 12:33 PM TSH 1.900 09/07/2020 12:00 AM TSH 1.49 01/08/2019 10:32 AM LDLCALC 47 12/07/2021 11:15 AM LDLCALC 19.60 09/07/2020 12:00 AM LDLDIRECT 38 09/07/2020 12:00 AM ALT 22 12/07/2021 11:15 AM ALT 26 03/24/2020 12:33 PM HGBA1C 6.3 (H) 12/07/2021 11:15 AM HGBA1C 6.2 (A) 09/07/2020 12:37 PM documented in this encounter Plan of Treatment Upcoming Encounters Date Type Department Care Team (Late st Contact Info) Description 04/24/2023 1:00 PM EST Office Visit Pulmonary Medicine, [facility] 132 [facility] [place] [address] Gilbert Thomas MD [address] [place] [id number] 12/04/2023 11:40 AM EDT Office Visit Nephrology, [facility] [address] [place] [address] Rosy Patel MD [address] [place] [address] 02/10/2024 1:00 PM EST Imaging Radiology [facility] [place] 132 [facility] [place] [address] 02/25/2024 4:00 PM EST Office Visit Urology, [facility] 132 [facility] [place] [address] Cameron Romeo MD 27 [facility] [place] [address] [place] [address] Health Maintenance Due Date Last Done Comments [...] sleep documented in this encounter Care Teams Bandage Wrapping Machine Operator Relationship Specialty Start Date End Date Jody Perales MD [address] [place] [address] [place] [address] PCP - General Family Medicine 11/21/21 documented as of this encounter
--- OUTSIDE RECORDS SUMMARY | 2023-05-15 03:28 | External Medical Summary | Summary of Care ---
Author Name Unknown Organization [facility] Address [address] [facility] [place] [address] Phone [phone] Care Team Providers Care Electronic Equipment Set Up Operator Name Role Phone Jody Arora MD Primary Care Provide r Reason for Visit * Reason Comments eRx-Medication Refill Encounter Details Date Type Department Care Team (Late st Contact Info) Description 04/15/2023 Refill Family Medicine [address] [place] [address] Jayleen Hua PA-C [address] [place] [address] [place] [address] Allergies No known active [...] (HCC),COPD, group C, by GOLD 2017 classification ([facility]) Inhale 3 mL via nebulizer every [...] renal mass 07/11/2017 Overview: [address] [facility]/[place] per patient "kidney cancer". States he was advised he was not a surgical candidate. Carotid stenosis, right 07/11/2017 History of stroke 07/11/2017 Overview: TIA vs lacunar stroke diagnosed on head CT in [place] Apr 2017. Follow up MRI [facility] no infarct. Anxiety 07/11/2017 HTN, goal below [...] Miscellaneous Notes * Telephone Encounter - Jody Arora MD - 04/16/2023 12:07 PM EST Signed Prescriptions: Disp Refills Rosuvastatin Calcium 10 MG Oral Tablet (Cr*90 Tab*1 Sig: Take 1 Tablet by mouth in the morning. Authorizing Provider: JODY ARORA * Telephone Encounter - Patty Puri RPh [...] back to me to advise patient. Thanks, Patty Puri, PharmD Clinical Pharmacist [facility]ized [facility] Services ([facility]) [phone] 04/16/2023, 11:58 AM documented in this encounter Plan of Treatment Upcoming Encounters Date Type Department Care Team (Late st Contact Info) Description 04/24/2023 1:00 PM EST Office Visit Pulmonary Medicine, [address] [place] [address] Gilbert Thomas MD [address] [facility] [place] [phone] 12/04/2023 11:40 AM EDT Office Visit Nephrology, [facility] [place] [address] Rosy Patel MD 200 [facility] [place] [address] 02/10/2024 1:00 PM EST Imaging Radiology [facility] 132 [facility] [place] [address] 02/25/2024 4:00 PM EST Office Visit Urology, [facility] 132 [facility] [place] [address] Cameron Romeo MD [address] [facility] [place] [address] [place] [address] Health Maintenance [...] filedocumented as of this encounter Care Teams Electronic Equipment Set Up Operator Relationship Specialty Start Date End Date Jody Arora MD [address] [place] [address] [place] [address] PCP - General Family Medicine 11/21/21 documented as of this encounter
--- OUTSIDE RECORDS SUMMARY | 2023-05-15 03:28 | External Medical Summary | Summary of Care ---
Author Name Unknown Organization [facility] Address [address] [place] [address] Phone [phone] Care Team Providers Care Cvicu Nurse Name Role Phone Jody Arora MD Primary Care Provide r Reason for Referral * Evaluate & Treat - Unlimited Visits (Within 30 days (routine)) - Authorized Specialty Diagnoses / Procedures Referred By Adam robertson Referred To Contact Pulmonary Diseases / Pulmonary Diagnoses COPD, group C, by GOLD 2017 classification (HCC) Jody Arora MD [address] [place] [address] [place] [id number] Referral ID Status Reason Start Date Expiration Date Visits Requested Visits Authorized [id number] Authorized Specialty Services Required 04/03/2023 999 999 Question Answer Referral Priority Within 30 days (routine) [facility] should this appointment be scheduled? [facility] Reason for Referral? Asthma/COPD Reason for Visit * Reason Onset Date Comments Test Results 04/03/2023 Encounter Details Date Type Department Care Team (Late st Contact Info) Description 04/03/2023 Telephone Family Medicine [address] [place] [phone] Jody Arora MD [address] [place] [address] [place] [id number] Test Results Allergies No known active allergiesdocumented as of this encounter (statuses as of 04/05/2023) Medications Medication Sig Dispensed Refills Start Date [...] before bedtime. 60 Each 1 04/03/2023 Active Fluticasone Propionate (Inhal) 50 MCG/BLIST Inhalation Aerosol Powder Breath Activated Inhale 1 Puff by mouth in the morning and 1 Puff before bedtime. 0 4 Discontinue d(Medicatio n/Dose Changed) documented as of this encounter (statuses as of 04/05/2023) Active Problems Problem Noted Date Diagnosed Date [...] renal mass 07/11/2017 Overview: [address] [facility] per patient "kidney cancer". States he was advised he was not a surgical candidate. Carotid stenosis, right 07/11/2017 History of stroke 07/11/2017 Overview: TIA vs lacunar stroke diagnosed on head CT in [place] Apr 2017. Follow up MRI [facility] no infarct. Anxiety 07/11/2017 HTN, goal below 140/90 08/02/2015 Coronary artery disease Dyslipidemia, goal LDL below 100 documented as of this encounter (statuses as of 04/05/2023) Resolved Problems Problem Noted Date Diagnosed Date [...] as of this encounter (statuses as of 04/05/2023) Immunizations Name Administration Dates Next Due COVID-19 [...] encounter Miscellaneous Notes * Telephone Encounter - Madison Lubin LPN - 04/05/2023 10:25 AM EST Please assist with scheduling Pulm appt * Telephone Encounter - Jody Arora MD - 04/03/2023 3:43 PM EST Spoke to the pt - pt used to take inhaler but stopped taking it bc per pt it was not helping - willing to see pulm - will start advair and pulm referral documented in this encounter Plan of Treatment Upcoming Encounters Date Type Department Care Team (Late st Contact Info) Description 04/08/2023 9:30 AM EST Office Visit Ophthalmology, [facility] 132 [facility] [place] [address] Sergio Jung, DO [address] [place] [address] [place] [address] 04/11/2023 10:40 AM EST Office Visit Nephrology, [facility] [address] [place], [place] [address] Rosy Patel MD [address] [place] [address] 04/24/2023 1:00 PM EST Office Visit Pulmonary Medicine, [facility] 132 [facility] [place] [address] Gilbert Thomas MD [address] [place] [facility] [place] [address] 12/04/2023 11:40 AM EDT Office Visit Nephrology, [facility] 200 [facility] [place], [place] [address] Rosy Patel MD 200 [facility] [place] [address] 02/10/2024 1:00 PM EST Imaging Radiology [facility] 132 [facility] [place] [address] 02/25/2024 4:00 PM EST Office Visit Urology, [facility] 132 [place] [address] Cameron Romeo MD [address] [address] [place] [phone] Scheduled Referrals Name Type Priority Associated Diagnoses Orde r Schedule PULMONARY REFERRAL OP Referral Within 30 days (routine) COPD, group C, by GOLD 2017 classification ([facility]) Ordered: 04/03/2023 Health Maintenance Due Date Last Done Comments [...] 02/26/2024 02/25/2023, 11/2022, 11/30/2022, Additional history exists Nephrology Referral 03/04/2024 03/04/2023 O2 ASSESSMENT COMPLETED IN PAST YEAR FOR COPD 03/04/2024 03/04/2023 Phosphate 04/04/2024 04/04/2023, 04/2023, 03/04/2023, Additional history exists DTaP,Tdap,and Td Vaccines (2 [...] as of this encounter Visit Diagnoses Diagnosis COPD, group C, by GOLD 2017 classification ([facility])- Primary documented in this encounter Care Teams Cvicu Nurse Relationship Specialty Start Date End Date Jody Arora MD [address] [place] [address] [place] [id number] PCP - General Family Medicine 11/21/21 documented as of this encounter
--- OUTSIDE RECORDS SUMMARY | 2023-05-15 03:28 | External Medical Summary | Summary of Care ---
Author Name Unknown Organization [facility] Address [address] [place] [address] Phone [phone] Care Team Providers Care Lpc Name Role Phone Jody Arora MD Primary Care Provide r Reason for Visit * Reason Comments Follow Up Encounter Details Date Type Department Care Team (Late st Contact Info) Description 04/08/2023 9:30 AM EST Office Visit Ophthalmology, [facility] [address] [place] [address] Sergio Jung T, DO [address] [place] [phone] Senile ectropion of both lower eyelids* Allergies No known active allergiesdocumented as of this encounter (statuses as of 04/08/2023) Medications Medication Sig Dispensed Refills Start Date [...] (HCC),COPD, group C, by GOLD 2017 classification ([facility]) Inhale 3 mL via nebulizer [...] Active hydrOXYzine HCl 50 MG Oral TabletIndications:Celine mcdermott insomnia TAKE 1 TABLET BY MOUTH AT BEDTIME NEEDED FOR INSOMNIA 30 Tablet 0 03/19/2023 Active Fluticasone-Salmetero l 250-50 MCG/ACT Inhalation Aerosol Powder Breath Activated (Advair Diskus)Indications:CO PD, group C, by GOLD 2017 classification (HCC) Inhale 1 Puff by mouth in the morning and 1 Puff before bedtime. 60 Each 1 04/03/2023 Active documented as of this encounter (statuses as of 04/08/2023) Active Problems Problem Noted Date Diagnosed Date [...] renal mass 07/11/2017 Overview: 2018 biopsy at [facility] per patient "kidney cancer". States he was advised he was not a surgical candidate. Carotid stenosis, right 07/11/2017 History of stroke 07/11/2017 Overview: TIA vs lacunar stroke diagnosed on head CT in [place] Apr 2017. Follow up MRI [facility] no infarct. Anxiety 07/11/2017 HTN, goal below 140/90 08/02/2015 Coronary artery disease Dyslipidemia, goal LDL below 100 documented as of this encounter (statuses as of 04/08/2023) Resolved Problems Problem Noted Date Diagnosed Date [...] as of this encounter (statuses as of 04/08/2023) Immunizations Name Administration Dates Next Due COVID-19 [...] on file documented as of this encounter Progress Notes * Sergio Jung, - 04/08/2023 9:40 AM EST Justin Pinedo is a 82 year old male who presents for recurrent red right eye and tearing. Pt reportsongoing issue for some time. Hx of LTS OU. Reports upper eyelid droop at times Ophthalmology Past History: glasses Ophthalmology Family History: none Ophthalmology ROS: Positive for excessive tearing both eyes and no recent significant change in vision,no eye pain, redness, discharge,no diplopia Current Ophthalmic Medications: None EXAM: Base Eye Exam Visual Acuity (Snellen - Linear) Right Left Dist cc 20/20 -2 20/25 +1 Correction: Glasses Extraocular Movement Right Left Full Full Neuro/Psych Oriented x3: Yes Slit Lamp and Fundus Exam Slit Lamp Exam Right Left Lids/Lashes 2+ Dermatochalasis - upper lid, floppy eyelid, moderate severe ectropion 2+ Dermatochalasis - upper lid, floppy eyelid, moderate ectropion requires a blink to bring back up Conjunctiva/Sclera White and quiet White and quiet Cornea Clear Clear Anterior Chamber Deep and quiet Deep and quiet Iris Round and reactive Round and reactive Lens PC IOL PC IOL External photos obtained demonstrating above findings IMPRESSION: 1. ectropions OU OD>OS 2. floppy eyelids 3. DCL OU PLAN: 1. Photo today 2. R/B/A discussed including but not limited to pain, bleeding, scarring, infection, Loss of vision, loss of eye, need for further surgery, eye drops in the post operative period, the use of regionalor general anesthesia. 3. LTS OU discussed and desires to proceed 4. Tobradex QID right eye to reverse any keratin Sergio Jung DO documented in this encounter Nursing Notes * Dulce Mir LPN - 04/08/2023 9:30 AM EST Justin Pinedo is a 82 year old male who presents for follow up. Patient complaint of constant tearing OD<OS. Last Visit: 12/26/2020 (in office), Visit date not found (telemedicine) He currently states no change in vision. Are you diabetic? No Current Ophthalmic Medications: Systane BID OU VA, IOP, current eyeglass Rx, and pupil check and dilation if needed can be found in ophth exam. documented in this encounter Plan of Treatment Upcoming Encounters Date Type Department Care Team (Late st Contact Info) Description 04/11/2023 10:40 AM EST Office Visit Nephrology, [facility] 200 [facility] [place] [address] Rosy Patel MD 200 [facility] [place] [address] 04/24/2023 1:00 PM EST Office Visit Pulmonary Medicine, [facility] 132 [place] [address] Gilbert Thomas MD [address] [facility] [place] [address] 12/04/2023 11:40 AM EDT Office Visit Nephrology, [facility] 200 [facility] [place] [address] Rosy Patel MD 200 [facility] [place] [address] 02/10/2024 1:00 PM EST Imaging Radiology [facility] 1st [facility] 132 [facility] [address] 02/25/2024 4:00 PM EST Office Visit Urology, [facility] 132 [place] [address] Cameron Romeo MD [address] [address] [place] [address] Scheduled Orders Name Type Priority Associated Diagnoses Orde r Schedule EXTERNAL EYE PHOTOGRAPHY Procedures Routine Senile ectropion of both lower eyelids Ordered: 04/08/2023 Health Maintenance Due Date Last Done Comments [...] FOR COPD 03/04/2024 03/04/2023 Phosphate 04/04/2024 04/04/2023, 0 04/2023, 03/04/2023, Additional history exists DTaP,Tdap,and Td [...] Primary documented in this encounter Care Teams Lpc Relationship Specialty Start Date End Date Jody Arora MD [address] [place] [address] [place] [address] PCP - General Family Medicine 11/21/21 documented as of this encounter
--- OUTSIDE RECORDS SUMMARY | 2023-05-15 03:28 | External Medical Summary | Summary of Care ---
Author Name Unknown Organization [facility] Address [address] [place] [address] Phone [phone] Care Team Providers Care Service Unit Operator Oil Well Name Role Phone Jody Arora MD Primary Care Provide r Encounter Details Date Type Department Care Team (Late st Contact Info) Description 04/15/2023 Telephone [facility] [address] [phone] Sergio Jung, 16 [place] [address] Allergies No known active allergiesdocumented [...] the morning. 90 Tablet 3 04/24/2022 Active Melatonin 10 MG Oral Capsule Take 1 Capsule by mouth at bedtime. 0 Active Ipratropium-Albutero l 0.5-2.5 (3) MG/3ML Inhalation Solution (Duoneb)Indications: Chronic hypoxemic respiratory failure (HCC),COPD, group C, by GOLD 2017 classification ([facility]) Inhale 3 mL via nebulizer [...] BEFORE BEDTIME 120 Tablet 0 04/15/2023 Active documented as of this encounter (statuses [...] renal mass 07/11/2017 Overview: 2018 biopsy at [facility] per patient "kidney cancer". States he was advised he was not a surgical candidate. Carotid stenosis, right 07/11/2017 History of stroke 07/11/2017 Overview: TIA vs lacunar stroke diagnosed on head CT in [place] Apr 2017. Follow up MRI [facility] no infarct. Anxiety 07/11/2017 HTN, goal [...] encounter Miscellaneous Notes * Telephone Encounter - Mary Martinez OSA - 04/15/2023 1:33 PM EST Please call to schedule appt documented in this encounter Plan of Treatment Upcoming Encounters Date Type Department Care Team (Late st Contact Info) Description 04/24/2023 1:00 PM EST Office Visit Pulmonary Medicine, [facility] 132 [facility] [place] [address] Gilbert Thomas MD [address] [place] [address] 12/04/2023 11:40 AM EDT Office Visit Nephrology, [facility] 200 [facility] [place] [address] PatelRosy fine MD [address] [place] [address] 02/10/2024 1:00 PM EST Imaging Radiology [facility] 1st Floor, [place] 132 [facility] [place] [address] 02/25/2024 4:00 PM EST Office Visit Urology, [facility] 132 [facility] [place] [address] Cameron Romeo MD [address] [place] [address] [place] [address] Health Maintenance Due Date Last Done Comments [...] filedocumented as of this encounter Care Teams Service Unit Operator Oil Well Relationship Specialty Start Date End Date Jody Arora MD [address] [place] [address] [place] [phone] PCP - General Family Medicine 11/21/21 documented as of this encounter
--- OUTSIDE RECORDS SUMMARY | 2023-05-15 03:28 | External Medical Summary | Summary of Care ---
Author Name Unknown Organization [facility] Address [address] [place] [address] Phone [phone] Care Team Providers Care Reflow Operator Name Role Phone Jody Arora MD Primary Care Provide r Encounter Details Date Type Department Care Team (Late st Contact Info) Description 04/15/2023 Telephone [facility] [address] [phone] Sergio Jung, 16 [place] [address] Allergies No known active allergiesdocumented [...] (HCC),COPD, group C, by GOLD 2017 classification ([facility]) Inhale 3 mL via nebulizer every [...] renal mass 07/11/2017 Overview: 2018 biopsy at [facility] [place] per patient "kidney cancer". States he was advised he was not a surgical candidate. Carotid stenosis, right 07/11/2017 History of stroke 07/11/2017 Overview: TIA vs lacunar stroke diagnosed on head CT in [place] Apr 2017. Follow up MRI [facility] no infarct. Anxiety 07/11/2017 HTN, [...] 1:00 PM EST Office Visit Pulmonary Medicine, [facility] 132 [facility] [place] [address] Gilbert Thomas MD [address] [place] [address] 12/04/2023 11:40 AM EDT Office Visit Nephrology, [facility] 200 [facility] [place] [address] Rosy Patel MD 200 [facility] [place] [address] 02/10/2024 1:00 PM EST Imaging Radiology [facility] 1st Floor, [place] 132 [facility] [place] [address] 02/25/2024 4:00 PM EST Office Visit Urology, [facility] 132 [facility] [place] [address] Cameron Romeo MD 27 [facility] 270 [place] [phone] Health Maintenance Due Date Last Done Comments [...] filedocumented as of this encounter Care Teams Reflow Operator Relationship Specialty Start Date End Date Jody Arora MD [address] [place] [address] [place] [address] PCP - General Family Medicine 11/21/21 documented as of this encounter
--- OUTSIDE RECORDS SUMMARY | 2023-05-15 03:28 | External Medical Summary | Summary of Care ---
Author Name Unknown Organization [facility] Address [address] [place] [address] Phone [phone] Care Team Providers Care Real Estate Closer Name Role Phone Jody Arora MD Primary Care Provide r Encounter Details Date Type Department Care Team (Late st Contact Info) Description 04/04/2023 Telephone [facility] Coordination [facility] Integration [address] [place] [employer], [place] [phone] Smita Garcia RN [address] [place] [address] Allergies No known active allergiesdocumented [...] (HCC),COPD, group C, by GOLD 2017 classification ([facility]) Inhale 3 mL via nebulizer every 4 [...] biopsy at [facility] per patient "kidney cancer". States he was advised he was not a surgical candidate. Carotid stenosis, right 07/11/2017 History of stroke 07/11/2017 Overview: TIA vs lacunar stroke diagnosed on head CT in [place] Apr 2017. Follow up MRI [facility] no infarct. Anxiety 07/11/2017 HTN, [...] Telephone Encounter - Jody Arora MD - 04/05/2023 9:51 AM EST Noted * Telephone Encounter - Smita Garcia RN - 04/04/2023 2:18 PM EST Pt was ordered Advair and said he did not pickling solution maker d/t cost. $138. Is there any assistance? Smita Garcia, RN Kidney Transitions Specialist CKD Head Cook documented in this encounter Plan of Treatment Upcoming Encounters Date Type Department Care Team (Late st Contact Info) Description 04/08/2023 9:30 AM EST Office Visit Ophthalmology, [facility] 132 [place] [address] Sergio Jung T, DO [address] [place] [address] 04/11/2023 10:40 AM EST Office Visit Nephrology, [facility] [address] [place] [address] Rosy Patel MD [address] [place] [address] 04/24/2023 1:00 PM EST Office Visit Pulmonary Medicine, [address] [place] [address] Gilbert Thomas MD [address] [place] [facility] [place] [address] 12/04/2023 11:40 AM EDT Office Visit Nephrology, [facility] [address] [place] [address] Rosy Patel MD [address] [place] [address] 02/10/2024 1:00 PM EST Imaging Radiology [facility] [address] [place] [address] 02/25/2024 4:00 PM EST Office Visit Urology, [address] [place] [address] Cameron Romeo MD [address] [place] [address] Health Maintenance [...] 02/25/2023, 100 11/2022, 11/30/2022, Additional history exists Nephrology Referral [...] filedocumented as of this encounter Care Teams Real Estate Closer Relationship Specialty Start Date End Date Jody Arora MD [address] [place] [address] [place] [phone] PCP - General Family Medicine 11/21/21 documented as of this encounter
--- OUTSIDE RECORDS SUMMARY | 2023-05-15 03:28 | External Medical Summary | Summary of Care ---
Author Name Unknown Organization [facility] Address [address] [place] [address] Phone [phone] Care Team Providers Care Emissions Testing And Repair Technician Name Role Phone Jody Arora MD Primary Care Provide r Reason for Visit * Reason Comments eRx-Medication Refill Encounter Details Date Type Department Care Team (Late st Contact Info) Description 04/11/2023 Refill [address] [place] [address] Joel Melvin MD [address] [place] [address] [place] [address] Allergies No known active allergiesdocumented as of [...] mg tablet. 30 Tablet 5 3 Active hydrOXYzine HCl 50 MG Oral TabletIndications:P rimary insomnia TAKE 1 TABLET BY MOUTH AT BEDTIME NEEDED FOR INSOMNIA 30 Tablet 0 4 Active Fluticasone-Salmete rol 250-50 MCG/ACT Inhalation Aerosol [...] BEFORE BEDTIME 120 Tablet 0 4 Active Sodium Bicarbonate 650 MG Oral Tablet Take 1 Tablet by mouth in the morning and 1 Tablet before bedtime. 120 Tablet 11 3 04/15/19 24 Discontinued documented as of this encounter [...] 07/11/2017 Overview: 2018 biopsy at [facility] per patient "kidney cancer". States he was advised he was not a surgical candidate. Carotid stenosis, right 07/11/2017 History of stroke 07/11/2017 Overview: TIA vs lacunar stroke diagnosed on head CT in [place] Apr 2017. Follow up MRI [facility] no infarct. Anxiety 07/11/2017 HTN, goal [...] encounter Miscellaneous Notes * Telephone Encounter - Joel Melvin MD - 04/15/2023 3:59 PM ESTSigned Prescriptions: Disp Refills Sodium Bicarbonate 650 MG Oral Tablet 120 Ta*0 Sig: TAKE 2 TABLETS BY MOUTH IN THE MORNING AND 2 BEFORE BEDTIME Authorizing Provider: JOEL MELVIN * Telephone Encounter - Nancy Seals LPN - 04/12/2023 9:23 AM ESTPending Prescriptions: Disp Refills Sodium Bicarbonate 650 MG Oral Tablet 120 Ta*0 Sig: TAKE 2 TABLETS BY MOUTH IN THE MORNING AND 2 BEFORE BEDTIME * Telephone Encounter - Nancy Seals LPN - 04/12/2023 9:21 AM EST Spoke with Pharmacist Symone in [place] This is the only order they have for this medication OUR CHART SAYS 1 TAB IN MORNING and [address] Melvin can you please verify Thank you * Telephone Encounter - Nancy Seals LPN - 04/12/2023 8:03 AM EST Per chart pt is only taking 1 tablet bid not 2 tabs bid LMM for pt to return call to our office regarding dosing Will also f/u with Pharmacy once they open Last OV 04/11/23 Next OV 12/04/23 documented in this encounter Plan of Treatment Upcoming Encounters Date Type Department Care Team (Late st Contact Info) Description 04/24/2023 1:00 PM EST Office Visit Pulmonary Medicine, [facility] 132 [facility] [place] [address] Gilbert Thomas MD [address] [place] [address] 12/04/2023 11:40 AM EDT Office Visit Nephrology, [facility] [address] [place] [address] Joel Melvin MD [address] [place] [address] 02/10/2024 1:00 PM EST Imaging Radiology [facility] 1st Floor, [place] 132 [facility] [place] [address] 02/25/2024 4:00 PM EST Office Visit Urology, [facility] 132 [facility] [place] [address] Cameron Romeo MD [address] [place] [...] filedocumented as of this encounter Care Teams Emissions Testing And Repair Technician Relationship Specialty Start Date End Date Jody Arora MD [address] [place] [address] [place] [phone] PCP - General Family Medicine 11/21/21 documented as of this encounter
--- OUTSIDE RECORDS SUMMARY | 2023-05-15 03:29 | External Medical Summary ---
Author Name Unknown Address Unknown Organization K[facility] - [address] [place] [address] Laboratory Report Ordering Provider Test Date Status OLEGARIO MALDONADO 04/04/2023 11:17:39 Final Observation Date Value Abnormality Reference (Units ) Status Phosphate 04/04/2023 11:17:39 4.8 2.5-4.8 (m g/dL) Final Performing Location [facility] - [address] [place] [address]
--- OUTSIDE RECORDS SUMMARY | 2023-05-15 03:29 | External Medical Summary | Summary of Care ---
Author Name Unknown Organization [facility] Address [address] [place] [address] Phone [phone] Care Team Providers Care Motion Graphics Designer Name Role Phone Jody Arora MD Primary Care Provide r Reason for Referral * Evaluate & Treat - Unlimited Visits (Within 30 days (routine)) - Authorized Specialty Diagnoses / Procedures Referred By Adam robertson Referred To Contact Pulmonary Diseases / Pulmonary Diagnoses COPD, group C, by GOLD 2017 classification (HCC) Jody Arora MD [address] [place] [address] [place] [id number] Referral ID Status Reason Start Date Expiration Date Visits Requested Visits Authorized [id number] Authorized Specialty Services Required 04/03/[phone] Question Answer Referral Priority Within 30 days (routine) [facility] should this appointment be scheduled? [facility] Reason for Referral? Asthma/COPD Reason for Visit * Reason Onset Date Comments Test Results 04/03/2023 Encounter Details Date Type Department Care Team (Late st Contact Info) Description 04/03/2023 Telephone Family Medicine [address] [place] [address] Jody Arora MD [address] [place] [address] [place] [id number] Test Results Allergies No known active allergiesdocumented as of this encounter (statuses as of 04/03/2023) Medications Medication Sig Dispensed Refills Start Date [...] as of this encounter (statuses as of 04/03/2023) Active Problems Problem Noted Date Diagnosed Date [...] renal mass 07/11/2017 Overview: 2018 biopsy at [facility] per patient "kidney cancer". States he was advised he was not a surgical candidate. Carotid stenosis, right 07/11/2017 History of stroke 07/11/2017 Overview: TIA vs lacunar stroke diagnosed on head CT in [place] Apr 2017. Follow up MRI [facility] no infarct. Anxiety 07/11/2017 HTN, goal below 140/90 08/02/2015 Coronary artery disease Dyslipidemia, goal LDL below 100 documented as of this encounter (statuses as of 04/03/2023) Resolved Problems Problem Noted Date Diagnosed Date [...] as of this encounter (statuses as of 04/03/2023) Immunizations Name Administration Dates Next Due COVID-19 [...] 04/08/2023 9:30 AM EST Office Visit Ophthalmology, [facility] [address] Sergio Jung, DO [address] [place] [address] 04/11/2023 10:40 AM EST Office Visit Nephrology, [facility] [address] [place] [address] Rosy Patel MD [address] [place] [address] 12/04/2023 11:40 AM EDT Office Visit Nephrology, [facility] [address] [place] [address] Rosy Patel MD [address] [place] [address] 02/10/2024 1:00 PM EST Imaging Radiology [facility] 1st [facility] [address] [facility] [place] [address] 02/25/2024 4:00 PM EST Office Visit Urology, [facility] [address] [facility] [place] [address] Cameron Romeo MD [address] [place] [address] [place] [address] Scheduled Referrals Name Type Priority Associated Diagnoses Orde r Schedule PULMONARY REFERRAL OP Referral Within 30 days (routine) COPD, group C, by GOLD 2017 classification (HCC) Ordered: 04/03/2023 Health Maintenance Due Date Last [...] 02/25/2023, 10/0 11/2022, 11/30/2022, Additional history exists Nephrology Referral [...] COPD, group C, by GOLD 2017 classification (HCC)- Primary documented in this encounter Care Teams Motion Graphics Designer Relationship Specialty Start Date End Date Jody Arora MD [address] [place] [address] [place] [phone] PCP - General Family Medicine 11/21/21 documented as of this encounter
--- OUTSIDE RECORDS SUMMARY | 2023-05-15 03:29 | External Medical Summary | Summary of Care ---
Author Name Unknown Organization [facility] Address [address] [place] [address] Phone [phone] Care Team Providers Care Jet Aircraft Servicer Name Role Phone Jody Arora MD Primary Care Provide r Reason for Visit * Reason Onset Date Comments Advice 03/29/2023 Appt at [facility] Encounter Details Date Type Department Care Team (Late st Contact Info) Description 03/29/2023 Telephone Nephrology, [place] 200 [facility] [place] [address] Rosy Patel MD 200 [facility] [place] [address] Advice (Appt at [facility]... Allergies No known active allergiesdocumented as of this encounter (statuses as of 03/29/2023) Medications Medication Sig Dispensed Refills Start Date End Date Status nitroglycerin (NITROSTAT) 0.4 MG SUBL 1 Tablet. 0 08/19/2018 Active Ventolin HFA 108 (90 Base) MCG/ACT Inhalation Aerosol SolutionIndications:C OPD exacerbation (HCC) Inhale by mouth 2 Puffs every 4 hours as needed for Wheezing. 18 g 1 11/22/2021 Active Fluticasone Propionate (Inhal) 50 MCG/BLIST Inhalation Aerosol Powder Breath Activated Inhale 1 Puff by mouth in the morning and 1 Puff before bedtime. 0 Active Albuterol Sulfate (2.5 MG/3ML) 0.083% Inhalation [...] (HCC),COPD, group C, by GOLD 2017 classification ([facility]) Inhale 3 mL via nebulizer [...] FOR INSOMNIA 30 Tablet 0 03/19/2023 Active documented as of this encounter (statuses as of 03/29/2023) Active Problems Problem Noted Date Diagnosed Date [...] 07/11/2017 Overview: 2018 biopsy at [facility] per patient "kidney cancer". States he was advised he was not a surgical candidate. Carotid stenosis, right 07/11/2017 History of stroke 07/11/2017 Overview: TIA vs lacunar stroke diagnosed on head CT in [place] Apr 2017. Follow up MRI [facility] no infarct. Anxiety 07/11/2017 HTN, goal below 140/90 08/02/2015 Coronary artery disease Dyslipidemia, goal LDL below 100 documented as of this encounter (statuses as of 03/29/2023) Resolved Problems Problem Noted Date Diagnosed Date [...] as of this encounter (statuses as of 03/29/2023) Immunizations Name Administration Dates Next Due COVID-19 [...] encounter Miscellaneous Notes * Telephone Encounter - Gabby Sosa RN - 03/29/2023 4:28 PM EST Pt updated to go ER if more short of breath or increased swelling. * Telephone Encounter - Rosy Patel MD - 03/29/2023 4:25 PM EST Call and chart reviewed w/ nurse. To reiterate, have NOT said he needs dialysis now based on labs but if he's having worse symptoms it's possible he needs more urgent care If worsening sob or edema, recommend ER eval. Else would work on trying to get him in sooner to clinic for evaluation Copying Dr Arora * Telephone Encounter - Gabby Sosa RN - 03/29/2023 3:48 PM EST Extensive telephone encounter with pt who wants to know why he isnt on dialysis when he was told heneeded it 3 months ago. Pt does report that he has increased fluid in his lungs and his legs are swollen and "hard as rocks." Pt [facility]. HE does wish to go to [facility] when needed. He reports that he is taki ng his medications as ordered. He is taking 40mg furosemide in the morning and 20mg in the after noon. He states that this is not getting the job done. Please advise. * Telephone Encounter - Smita Chao OSA - 03/29/2023 3:24 PM EST Pt on the line wanting to schedule at [facility]ney [facility]. Pt stated he could not go to the other place as Dr. Patel does not have practicing right there. Call out to [facility] and they did not see any dialysis orders for patient and patient is not currently in theresystem. There is a referral from 04/10/22 in the patient chart. Please reach out to the center for admission process the phone number is [phone]. Thank you documented in this encounter Plan of Treatment Upcoming Encounters Date Type Department Care Team (Late st Contact Info) Description 04/11/2023 10:40 AM EST Office Visit Nephrology, [facility] [address] [place] [address] Rosy Patel MD [address] [place] [address] 12/04/2023 11:40 AM EDT Office Visit Nephrology, [facility] [address] [place] [address] Rosy Patel MD 200 [facility] [address] [place] [address] 02/10/2024 1:00 PM EST Imaging Radiology [facility] 1st [facility] 132 [facility] [address] 02/25/2024 4:00 PM EST Office Visit Urology, [facility] 132 [place] [address] Cameron Romeo MD [address] [place] [address] [facility] [place] [address] Health Maintenance Due Date Last Done Comments [...] filedocumented as of this encounter Care Teams Jet Aircraft Servicer Relationship Specialty Start Date End Date Jody Arora MD [address] [place] [address] [place] [phone] PCP - General Family Medicine 11/21/21 documented as of this encounter
--- OUTSIDE RECORDS SUMMARY | 2023-05-15 03:29 | External Medical Summary | Summary of Care ---
Author Name Unknown Organization [facility] Address [address] [place] [address] Phone [phone] Care Team Providers Care Insurance Verification Clerk Name Role Phone Jody Arora MD Primary Care Provide r Reason for Visit * Reason Onset Date Comments Appointment 03/26/2023 Encounter Details Date Type Department Care Team (Late st Contact Info) Description 03/26/2023 Telephone Ophthalmology, [facility] [address] [place] [phone] Services, Scheduling [address] [place] [address] Appointment Allergies No known active allergiesdocumented as of [...] renal mass 07/11/2017 Overview: 2018 biopsy at [facility] per patient "kidney cancer". States he was advised he was not a surgical candidate. Carotid stenosis, right 07/11/2017 History of stroke 07/11/2017 Overview: TIA vs lacunar stroke diagnosed on head CT in [place] Apr 2017. Follow up MRI [facility] no infarct. Anxiety 07/11/2017 HTN, [...] encounter Miscellaneous Notes * Telephone Encounter - Samantha Guidry OSA - 04/03/2023 9:17 AM EST Pt scheduled and aware. * Telephone Encounter - Debi Roberto OSA - 04/02/2023 2:55 PM EST Do you know what is going on with this pt?? MOLLY Magana 04/02/2023 2:55 PM * Telephone Encounter - Jaja Knox OSA - 04/02/2023 2:40 PM EST Patient called back to check on status of this. * Telephone Encounter - Rosa Maria Orr OSA - 04/02/2023 11:15 AM EST Patient checking on status of message, patient states that the eye is drooping again and vision is very blurry and can barely see. patient is asking to be seen today or tomorrow in [facility] * Telephone Encounter - Rosa Maria Orr OSA - 03/26/2023 12:29 PM EST Pt states that the droopy eyelid needs to be redone and wants a sooner appt than available. Can be reached at [phone] documented in this encounter Plan of Treatment Upcoming Encounters Date Type Department Care Team (Late st Contact Info) Description 04/08/2023 9:30 AM EST Office Visit Ophthalmology, [facility] 132 [facility] [place] [address] Sergio Jung, DO [address] [place] [address] 04/11/2023 10:40 AM EST Office Visit [facility]rology[facility] [address] [place] [address] Rosy Patel MD 200 [facility] [place] [address] 12/04/2023 11:40 AM EDT Office Visit Nephrology, [facility] [address] [place], [place] [address] Rosy Patel MD [address] [place] [address] 02/10/2024 1:00 PM EST Imaging Radiology [facility] 1st [facility] 132 [facility] [place] [address] 02/25/2024 4:00 PM EST Office Visit Urology, [facility] [place] [address] Cameron Romeo MD 27 [facility] [place] [address] [place] [address] Health Maintenance Due Date Last Done [...] filedocumented as of this encounter Care Teams Insurance Verification Clerk Relationship Specialty Start Date End Date Jody Arora MD [address] [place] [address] [place] [id number] PCP - General Family Medicine 11/21/21 documented as of this encounter
--- OUTSIDE RECORDS SUMMARY | 2023-05-15 03:29 | External Medical Summary ---
Author Name Unknown Address Unknown Organization K01:[facility] [place] [facility] [address] [place] [address] Laboratory Report Ordering Provider Test Date Status OLEGARIO MALDONADO 04/04/2023 11:17:39 Final Observation Date Value Abnormality Reference (Units ) Status BUN 04/04/2023 11:17:39 69 Above high normal 6-20 (mg/dL) Final Creatinine 04/04/2023 11:17:39 3.6 Above high normal 0.6-1.2 (mg/dL) Final Glomerular filtration rate/1.73 sq M.predicted [Volume Rate/Area] in Serum, Plasma or Blood by Creatinine-based formula (CKD-EPI) 04/04/2023 11:17:39 16 Below low normal >=60 (mL/min) Final eGFR is calculated based on the CKD-EPI 2020 equation SODIUM 04/04/2023 11:17:39 141 135-146 (m mol/L) Final Potassium 04/04/2023 11:17:39 5.3 Above high normal 3. 5-5.1 (mmol/L) Final Cl 04/04/2023 11:17:39 105 98-107 (mm ol/L) Final CO2 04/04/2023 11:17:39 24 22-32 (mmo l/L) Final Anion gap 04/04/2023 11:17:39 12 7-15 (mmol /L) Final Glucose 04/04/2023 11:17:39 103 70-120 (mg /dL) Final Calcium 04/04/2023 11:17:39 8.5 8.4-10.2 ( mg/dL) Final Performing Location [facility] [place] [address] [place] [address]
--- OUTSIDE RECORDS SUMMARY | 2023-05-15 03:29 | External Medical Summary | Summary of Care ---
Author Name Unknown Organization [facility] Address [address] [place] [address] Phone [phone] Care Team Providers Care Wire Lather Name Role Phone Jody Arora MD Primary Care Provide r Reason for Visit * Reason Onset Date Comments Advice 03/29/2023 Appt at [facility] Encounter Details Date Type Department Care Team (Late st Contact Info) Description 03/29/2023 Telephone Nephrology, [place] 200 [facility] [place] [address] Rosy Patel MD 200 [facility] [place] [address] Advice (Appt at [facility]... Allergies No known active allergiesdocumented as [...] ([facility]) Inhale 3 mL via nebulizer every [...] renal mass 07/11/2017 Overview: [address] [facility] per patient "kidney cancer". States he was advised he was not a surgical candidate. Carotid stenosis, right 07/11/2017 History of stroke 07/11/2017 Overview: TIA vs lacunar stroke diagnosed on head CT in [place] Apr 2017. Follow up MRI [facility] no infarct. Anxiety 07/11/2017 HTN, goal [...] encounter Miscellaneous Notes * Telephone Encounter - Rosy Patel MD [...] states he called the phone number for [facility] and he was told that clinic was closed. HE does wish to go to [facility] when needed. He reports that he is taki ng his medications as ordered. He is taking 40mg furosemide in the morning and 20mg in the after noon. He states that this is not getting the job done. Please advise. * Telephone Encounter - Smita Chao OSA - 03/29/2023 3:24 PM EST Pt on the line wanting to schedule at [facility]. Pt stated he could not go to the other place as Dr. Patel does not have practicing right there. Call out to [facility] and they did not see any dialysis orders for patient and patient is not currently in theresystem. There is a referral from 04/10/22 in the patient chart. Please reach out to the center for admission process the phone number is [phone]. Thank you documented in this encounter Plan of Treatment Upcoming Encounters Date Type Department Care Team (Late st Contact Info) Description 04/11/2023 10:40 AM EST Office Visit Nephrology, [facility]i [facility] [address] [facility] [address] [place], [place] [address] Rosy Patel MD [address] [place] [address] 12/04/2023 11:40 AM EDT Office Visit Nephrology, [facility]i [facility] [address] [place] [address] Rosy Patel MD [address] [place] [address] 02/10/2024 1:00 PM EST Imaging Radiology [facility] 1st [facility] 132 [facility] [place] [address] 02/25/2024 4:00 PM EST Office Visit Urology, [facility] 132 [facility] [place] [address] Cameron Romeo MD 27 [facility] [place] [address] [place] [address] Health Maintenance Due Date Last Done Comments [...] filedocumented as of this encounter Care Teams Wire Lather Relationship Specialty Start Date End Date Jody Arora MD [address] [place] [address] [place] [phone] PCP - General Family Medicine 11/21/21 documented as of this encounter
--- OUTSIDE RECORDS SUMMARY | 2023-05-15 03:29 | External Medical Summary | Summary of Care ---
Author Name Unknown Organization [facility] Address [address] [place] [address] Phone [phone] Care Team Providers Care Industrial Relations Officer Name Role Phone Jody Arora MD Primary Care Provide r Reason for Visit * Reason Comments Outpatient Testing Encounter Details Date Type Department Care Team (Late st Contact Info) Description 04/04/2023 11:20 AM EST Laboratory Laboratory [address] [place] [address] [place] [address] Kidney disease, chronic, stage IV (GFR 15-29 ml/min) ([facility]) Allergies No known active allergiesdocumented as of [...] C, by GOLD 2017 classification ([facility]) Inhale 3 mL via nebulizer every [...] 07/11/2017 Overview: 2018 biopsy at [facility] per patient "kidney cancer". States he was advised he was not a surgical candidate. Carotid stenosis, right 07/11/2017 History of stroke 07/11/2017 Overview: TIA vs lacunar stroke diagnosed on head CT in [place] Apr 2017. Follow up MRI [facility] no infarct. Anxiety 07/11/2017 HTN, goal [...] 04/08/2023 9:30 AM EST Office Visit Ophthalmology, [facility] 132 [facility] [place] [address] Sergio Jung T, DO 16 [place] [address] 04/11/2023 10:40 AM EST Office Visit Nephrology, [facility] [address] [place] [address] Rosy Patel MD 200 [facility] [place] [address] 12/04/2023 11:40 AM EDT Office Visit Nephrology, [facility] [address] [place] [address] PatelRosy fine MD 200 [facility] [place] [address] 02/10/2024 1:00 PM EST Imaging Radiology [facility] 132 [facility] [place] [address] 02/25/2024 4:00 PM EST Office Visit Urology, [facility] 132 [facility] [place] [address] Cameron Romeo MD [address] [place] [address] [place] [address] Pending Results Name Type Priority Associated Diagnoses Date /Time BASIC METABOLIC PANEL Lab Routine Kidney disease, chronic, stage IV (GFR 15-29 ml/min) ([facility]) 04/04/2023 11:17 AM EST PHOSPHORUS Lab Routine Kidney disease, chronic, stage IV (GFR 15-29 ml/min) ([facility]) 04/04/2023 11:17 AM EST Health Maintenance Due Date Last Done Comments [...] as of this encounter Visit Diagnoses Diagnosis Kidney disease, chronic, stage IV (GFR 15-29 ml/min) (HCC) Chronic kidney disease, Stage IV (severe) documented in this encounter Care Teams Industrial Relations Officer Relationship Specialty Start Date End Date Jody Arora MD [address] [place] [address] [place] [address] PCP - General Family Medicine 11/21/21 documented as of this encounter
--- OUTSIDE RECORDS SUMMARY | 2023-05-15 03:30 | External Medical Summary | Summary of Care ---
Author Name Unknown Organization [facility] Address [address] [place] [address] Phone [phone] Care Team Providers Care Procedure Rn Name Role Phone Jody Arora MD Primary Care Provide r Reason for Visit * Reason Onset Date Comments Advice 03/29/2023 Appt at [facility] Encounter Details Date Type Department Care Team (Late st Contact Info) Description 03/29/2023 Telephone Nephrology, [place] 200 [facility] [place] [address] Rosy Patel MD 200 [facility] [place] [address] Advice (Appt at [facility]... Allergies No known active allergiesdocumented as [...] C, by GOLD 2017 classification ([facility]) Inhale 3 mL via nebulizer [...] renal mass 07/11/2017 Overview: 2018 biopsy at [facility] per patient "kidney cancer". States he was advised he was not a surgical candidate. Carotid stenosis, right 07/11/2017 History of stroke 07/11/2017 Overview: TIA vs lacunar stroke diagnosed on head CT in [place] Apr 2017. Follow up MRI [facility] no infarct. Anxiety 07/11/2017 HTN, [...] Miscellaneous Notes * Telephone Encounter - Smita Chao OSA - 03/29/2023 3:24 PM EST Pt on the line wanting to schedule at [facility]. Pt stated he could not go to the other place as Dr. Patel does not have practicing right there. Call out to [facility] and they did not see any dialysis orders for patient and patient is not currently in theresystem. There is a referral from 04/10/22 in the patient chart. Please reach out to the center for admission process the phone number is [phone]. Thank you documented in this encounter Plan of Treatment Upcoming Encounters Date Type Department Care Team (Late st Contact Info) Description 04/11/2023 10:40 AM EST Office Visit Nephrology, [facility] 200 [facility] [place] [address] Rosy Patel MD 200 [facility] [place] [address] 12/04/2023 11:40 AM EDT Office Visit Nephrology, [facility] 200 [facility] [place] [address] Rosy Patel MD 200 [facility] [place] [address] 02/10/2024 1:00 PM EST Imaging Radiology [facility] 1st [facility] 132 [facility] [place] [address] 02/25/2024 4:00 PM EST Office Visit Urology, [facility] 132 [facility] [place] [address] Cameron Romeo MD 27 [facility] 270 [place] [address] Health Maintenance Due Date Last Done Comments [...] filedocumented as of this encounter Care Teams Procedure Rn Relationship Specialty Start Date End Date Jody Arora MD [address] [place] [address] [place] [address] PCP - General Family Medicine 11/21/21 documented as of this encounter
--- OUTSIDE RECORDS SUMMARY | 2023-05-15 03:30 | External Medical Summary | Summary of Care ---
Author Name Unknown Organization [facility] Address [address] [place] [address] Phone [phone] Care Team Providers Care Speeder Frame Tender Name Role Phone Jody Arora MD Primary Care Provide r Reason for Visit * Reason Onset Date Comments Advice 03/28/2023 Encounter Details Date Type Department Care Team (Late st Contact Info) Description 03/28/2023 Telephone NephrologyMizti 200 [facility] [place] [address] PatelRosy fine MD 200 [place] [address] Advice Allergies No known active allergiesdocumented as of [...] C, by GOLD 2017 classification ([facility]) Inhale 3 mL via nebulizer every [...] renal mass 07/11/2017 Overview: 2018 biopsy at [facility] per patient "kidney cancer". States he was advised he was not a surgical candidate. Carotid stenosis, right 07/11/2017 History of stroke 07/11/2017 Overview: TIA vs lacunar stroke diagnosed on head CT in [place] Apr 2017. Follow up MRI [facility] no infarct. Anxiety 07/11/2017 HTN, goal [...] encounter Miscellaneous Notes * Telephone Encounter - Tigist Connor LPN - 03/29/2023 3:01 PM EST Pt is calling and requesting to speak with Dr. Patel's nurse. Call was transferred to Marc in Nephrology. * Telephone Encounter - Gabby Sosa RN - 03/28/2023 2:08 PM EST TE with pt regarding complaints of pain in right lower back. Concerned it could be kidney pain. Denies lifting or pulling . Denies fever. Will try some warm compress to lower back and analgesics to see if this improves discomfort. * Telephone Encounter - Sujata Arce OSA - 03/28/2023 2:00 PM EST Good afternoon, Pt on the line, requesting to speak with Dr. Bonner's nurse. He did not give a reason for the call, just asked to speak with a nurse. Please give him a call back to discuss at [phone]. Thank you * Telephone Encounter - Tigist Connor LPN - 03/28/2023 1:54 PM EST Pt is calling and requesting to speak with Dr. Patel's nurse. Call was transferred to Sujata in Nephrology scheduling. documented in this encounter Plan of Treatment Upcoming Encounters Date Type Department Care Team (Late st Contact Info) Description 04/11/2023 10:40 AM EST Office Visit NephrologyMitzi [address] [place] [address] [address] Rosy Patel MD [address] [place] [address] 12/04/2023 11:40 AM EDT Office Visit Mitzi Guerrero [address] [place] [address] [address] [address] Rosy Patel MD [address] [place] [address] 02/10/2024 1:00 PM EST Imaging Radiology [facility] [address] [place] [address] 02/25/2024 4:00 PM EST Office Visit Urology, [facility] [address] [place] [address] Cameron Romeo MD [address] [place] [...] filedocumented as of this encounter Care Teams Speeder Frame Tender Relationship Specialty Start Date End Date Jody Arora MD [address] [place] [address] [place] [phone] PCP - General Family Medicine 11/21/21 documented as of this encounter
--- OUTSIDE RECORDS SUMMARY | 2023-05-15 03:30 | External Medical Summary | Summary of Care ---
Author Name Unknown Organization [facility] Address [address] [place] [address] Phone [phone] Care Team Providers Care Furnace Cooler Name Role Phone Jody Arora MD Primary Care Provide r Reason for Referral * Precert (Within 10 days (routine)) - Authorized Specialty Diagnoses / Procedures Referred By Adam robertson Referred To Contact Radiology Diagnoses Abnormal CXR Procedures CT CHEST WO CONTRAST Jody Arora MD [address] [place] [address] [place] [id number] Referral ID Status Reason Start Date Expiration Date V isits Requested Visits Authorized [id number] Authorized 03/13/2023 999 999 Reason for Visit * Reason Onset Date Comments Test Results 03/13/2023 Encounter Details Date Type Department Care Team (Late st Contact Info) Description 03/13/2023 Telephone Family Medicine [address] [place] [phone] Jody Arora MD [address] [place] [address] [place] [id number] Test Results Allergies No known active allergiesdocumented as of this encounter (statuses as of 03/19/2023) Medications Medication Sig Dispensed Refills Start Date [...] 02/28/2023 Active predniSONE 10 MG Oral Tablet (Deltasone)Indicati [...] 03/08/2023 Active hydrOXYzine HCl 50 MG Oral TabletIndications:P rimary insomnia TAKE 1 TABLET BY MOUTH AT BEDTIME NEEDED FOR INSOMNIA 30 Tablet 1 01/07/2023 03/19/19 24 Discontinued documented as of this encounter (statuses as of 03/19/2023) Active Problems Problem Noted Date Diagnosed Date [...] renal mass 07/11/2017 Overview: 2018 biopsy at [facility]/[place] per patient "kidney cancer". States he was advised he was not a surgical candidate. Carotid stenosis, right 07/11/2017 History of stroke 07/11/2017 Overview: TIA vs lacunar stroke diagnosed on head CT in [place] Apr 2017. Follow up MRI [facility] [place] no infarct. Anxiety 07/11/2017 HTN, goal below 140/90 08/02/2015 Coronary artery disease Dyslipidemia, goal LDL below 100 documented as of this encounter (statuses as of 03/19/2023) Resolved Problems Problem Noted Date Diagnosed Date [...] stenosis 01/15/2018 12/07/2021 Overview: Echo 12/2017. Dr aZragoza. Anemia of chronic renal fail ure, stage 3 (moderate) 07/11/2017 11/02/2017 Overview: Per CKD protocol #1 - Basal cell carcinoma (BCC) of skin of face 07/11/2017 07/14/2018 Hyperkalemia 07/11/2017 12/07/2021 CKD (chronic kidney disease) stage 3, GFR 30-59 ml/min 01/28/2015 08/08/2017 documented as of this encounter (statuses as of 03/19/2023) Immunizations Name Administration Dates Next Due COVID-19 [...] encounter Miscellaneous Notes * Telephone Encounter - Carissa Whitman LPN - 03/19/2023 3:52 PM EST Pt scheduled already. I did confirm with . * Telephone Encounter - Kimmie Mckinney OSA - 03/19/2023 9:20 AM EST It doesn't look like per previous encounter that patient is aware of needing CT scan yet * Telephone Encounter - Mary Yepez LPN - 03/14/2023 10:11 AM EST Called pt. No answer. Left message to return call. * Telephone Encounter - Jody Arora MD - 03/13/2023 2:18 PM EST Please call the pt - due to recent abnormal CXR I would like to get a CT chest without contrast to obtain a better picture of the lung * Telephone Encounter - Jody Arora MD - 03/13/2023 2:16 PM EST ----- Message from Rosy Patel MD sent at 03/08/2023 8:36 AM EST ----- Kidney labs slightly worse >> creatinine about the same but mild elevations in potassium and phosphorus which show progressive renal failure. Getting close to needing to start HD. >we increased lasix at office visit so that should help lower the potassium >>would actually increase further to add second dose 4 hrs or more after first one >> so 60 mg in AM and another 40 mg at least 4 hours or more later on MWF only >>very important not to miss that second lasix dose >>recheck labs on 03/19/23 bmp, phos >>CXR shows worsening of chronic R lung compression/deflation/volume loss >> this is complicated in his case and beyond my expertise to treat >> recommend start w/ PCP but likely need to get back w/ lung team (assumes he still has one; last [facility] visit in 2019) - can refer if he would like but may take time myG sent; renal nurse pls place labs/ and if desired referral documented in this encounter Plan of Treatment Upcoming Encounters Date Type Department Care Team (Late st Contact Info) Description 03/26/2023 11:45 AM EST Imaging Radiology [address] 132 [facility] [place] [address] 04/11/2023 10:40 AM EST Office Visit Nephrology, [facility] 200 [facility] [place] [address] Rosy Patel MD 200 [facility] [place] [address] 12/04/2023 11:40 AM EDT Office Visit Nephrology, [facility] 200 [facility] [place] [address] Rosy Patel MD 200 [facility] [place] [address] 02/10/2024 1:00 PM EST Imaging Radiology [address] 132 [facility] [place] [address] 02/25/2024 4:00 PM EST Office Visit Urology, [facility] 132 [facility] [place] [address] Cameron Romeo MD [address] [facility] [place] [address] [place] [address] Scheduled Orders Name Type Priority Associated Diagnoses Orde r Schedule CT CHEST WO CONTRAST Medical Imaging Routine Abnormal CXR Expected: 03/13/2023, Expires: 04/13/2024 Health Maintenance Due Date Last Done Comments Alpha-1 Antitrypsin 1958 *COPD SEVERITY VERIFIED BY PFT 07/16/2020 Depression Screening 02/28/2021 02/29/2020 Hepatitis B (3 of 3 - 19+ 3-dose series) 03/20/2023 01/23/2023, 01/08/2018 Albumin/Creatinine Ratio 08/09/2023 023, 12/07/2021, 08/10/2021, Additional history exists GFR 09/03/2023 03/04/2023, 10/2022, 12/28/2022, Additional history exists PTH 12/01/2023 11/30/2022, 06/17, 07/19/2021, Additional history exists Hgb 02/26/2024 02/25/2023, 0 11/2022, 11/30/2022, Additional history exists Nephrology Referral 03/04/2024 03/04/2023 O2 ASSESSMENT COMPLETED IN PAST YEAR FOR COPD 03/04/2024 03/04/2023 Phosphate 03/04/2024 03/04/2023, 11/16, 07/12/2022, Additional history exists DTaP,Tdap,and Td Vaccines (2 [...] as of this encounter Visit Diagnoses Diagnosis Abnormal CXR- Primary Other nonspecific abnormal finding of lung field documented in this encounter Care Teams Furnace Cooler Relationship Specialty Start Date End Date Jody Arora MD [address] [place] [address] [place] [address] PCP - General Family Medicine 11/21/21 documented as of this encounter
--- OUTSIDE RECORDS SUMMARY | 2023-05-15 03:30 | External Medical Summary | Summary of Care ---
Author Name Unknown Organization [facility] Address [address] [place] [address] Phone [phone] Care Team Providers Care Handbell Choir Director Name Role Phone Jody Arora MD Primary Care Provide r Reason for Visit * Reason Comments eRx-Medication Refill Encounter Details Date Type Department Care Team (Late st Contact Info) Description 03/16/2023 Refill Family Medicine [address] [phone] Trace Lynn MD [address] [place] [address] [place] [address] Primary insomnia Allergies No known active [...] FOR INSOMNIA 30 Tablet 0 03/19/2023 Active hydrOXYzine HCl 50 MG Oral TabletIndications:P [...] 07/11/2017 Overview: [address] [facility]/[place] per patient "kidney cancer". States he was advised he was not a surgical candidate. Carotid stenosis, right 07/11/2017 History of stroke 07/11/2017 Overview: TIA vs lacunar stroke diagnosed on head CT in [place] Apr 2017. Follow up MRI [facility] no infarct. Anxiety 07/11/2017 HTN, goal below [...] encounter Miscellaneous Notes * Telephone Encounter - Trace Lynn MD - 03/19/2023 2:14 PM ESTSigned Prescriptions: Disp Refills hydrOXYzine HCl 50 MG Oral Tablet 30 Tab*0 Sig: TAKE 1 TABLET BYMOUTH AT BEDTIME NEEDED FOR INSOMNIAAuthorizing Provider: TRACE LYNN * Telephone Encounter - Trace Lynn MD - 03/19/2023 2:14 PM ESTSigned Prescriptions: Disp Refills hydrOXYzine HCl 50 MG Oral Tablet 30 Tab*0 Sig: TAKE 1 TABLET BY MOUTH AT BEDTIME NEEDED FOR INSOMNIA Authorizing Provider: TRACE LYNN * Telephone Encounter - Tigist Connor LPN - 03/19/2023 12:08 PM EST Pt is calling to check on the status of refill. Reports that he is completely out of the medication. Pharmacy verified. Please advise. * Telephone Encounter - Gurinder Vargas RPh - 03/18/2023 2:44 PM ESTPending Prescriptions: Disp Refills hydrOXYzine HCl 50 MG Oral Tablet 30 Tab*0 Sig: TAKE 1 TABLET BY MOUTH AT BEDTIME NEEDED FOR INSOMNIA * Telephone Encounter - Gurinder Vargas Satya - 03/18/2023 2:43 PM EST [facility] is currently not authorized to approve refills for hydroxyzine with anxiety/insomnia diagnosisper refill protocol. Please approve if appropriate. Thanks, Scot Vargas, PharmD Clinical Pharmacist [facility] ([facility]) (Formerly Telepharmacy) [phone] 03/18/2023 2:43 PM Electronically signed by Gurinder Vargas [facility] at 03/18/2023 2:44 PM EST documented in this encounter Plan of Treatment Upcoming Encounters Date Type Department Care Team (Late st Contact Info) Description 03/26/2023 11:45 AM EST Imaging Radiology [address] 132 [facility] [place] [address] 04/11/2023 10:40 AM EST Office Visit Nephrology, [facility] 200 [facility] [place] [address] Rosy Patel MD 200 [facility] [place] [address] 12/04/2023 11:40 AM EDT Office Visit Nephrology, [facility] 200 [facility] [place] [address] Rosy Patel MD 200 [facility] [place] [address] 02/10/2024 1:00 PM EST Imaging Radiology [address] 132 [facility] [place] [address] 02/25/2024 4:00 PM EST Office Visit Urology, [facility] 132 [facility] [place] [address] Cameron Romeo MD [address] [place] [address] [place] [address] Health Maintenance Due Date Last Done Comments [...] sleep documented in this encounter Care Teams Handbell Choir Director Relationship Specialty Start Date End Date Jody Arora MD [address] [place] [address] [place] [address] PCP - General Family Medicine 11/21/21 documented as of this encounter
--- OUTSIDE RECORDS SUMMARY | 2023-05-15 03:30 | External Medical Summary | Summary of Care ---
Author Name Unknown Organization [facility] Address [address] [place] [address] Phone [phone] Care Team Providers Care Content Editor Name Role Phone Jody Arora MD Primary Care Provide r Reason for Visit * Reason Onset Date Comments Outpatient Testing 03/26/2023 Encounter Details Date Type Department Care Team (Late st Contact Info) Description 03/26/2023 Telephone NephrologyMitzi [address] [facility] [place] [address] PatelRosy fine MD 200 [place] [address] Outpatient Testing Allergies No known active allergiesdocumented as of this encounter (statuses as of 03/26/2023) Medications Medication Sig Dispensed Refills Start Date [...] C, by GOLD 2017 classification ([facility]) Inhale 3 mL via nebulizer [...] as of this encounter (statuses as of 03/26/2023) Active Problems Problem Noted Date Diagnosed Date [...] renal mass 07/11/2017 Overview: 2018 biopsy at [facility]/[place] per patient "kidney cancer". States he was advised he was not a surgical candidate. Carotid stenosis, right 07/11/2017 History of stroke 07/11/2017 Overview: TIA vs lacunar stroke diagnosed on head CT in [place] Apr 2017. Follow up MRI [facility] no infarct. Anxiety 07/11/2017 HTN, goal below 140/90 08/02/2015 Coronary artery disease Dyslipidemia, goal LDL below 100 documented as of this encounter (statuses as of 03/26/2023) Resolved Problems Problem Noted Date Diagnosed Date [...] as of this encounter (statuses as of 03/26/2023) Immunizations Name Administration Dates Next Due COVID-19 [...] Telephone Encounter - Gabby Sosa RN - 03/26/2023 9:51 AM EST Pt aware to repeat lab tests prior to next OV. * Telephone Encounter - Gabby Sosa RN - 03/26/2023 9:50 AM EST ----- Message from Rosy Patel MD sent at 03/25/2023 4:11 PM EST ----- Kidney labs show progressive CKD nearing need for dialysis but not quite there currently; continue same. Repeat blood tests before OV later this month > claude dixon Renal nurse pls ensure lab orders are in documented in this encounter Plan of Treatment Upcoming Encounters Date Type Department Care Team (Late st Contact Info) Description 03/27/2023 9:45 AM EST Imaging Radiology [address] 132 [facility] [place] [address] 04/11/2023 10:40 AM EST Office Visit Nephrology, [facility] [address] [facility] [place] [address] Rosy Patel MD [address] [facility] [place] [address] 12/04/2023 11:40 AM EDT Office Visit Nephrology, [facility] [address] [facility] [place] [address] Rosy Patel MD [address] [facility] [place] [address] 02/10/2024 1:00 PM EST Imaging Radiology [address] 132 [facility] [place] [address] 02/25/2024 4:00 PM EST Office Visit Urology, [facility] 132 [facility] [place] [address] Cameron [facility]o MD [facility] [address] [place] [address] Health Maintenance Due [...] filedocumented as of this encounter Care Teams Content Editor Relationship Specialty Start Date End Date Jody Arora MD [address] [place] [address] [place] [address] PCP - General Family Medicine 11/21/21 documented as of this encounter
--- OUTSIDE RECORDS SUMMARY | 2023-05-15 03:30 | External Medical Summary | Summary of Care ---
Author Name Unknown Organization [facility] Address [address] [place] [address] Phone [phone] Care Team Providers Care Tailing Hand Name Role Phone Jody Arora MD Primary Care Provide r Reason for Visit * Reason Onset Date Comments Advice 03/29/2023 Appt at [facility] Dialysis Encounter Details Date Type Department Care Team (Late st Contact Info) Description 03/29/2023 Telephone Nephrology, [place] 200 [facility] [place] [address] Rosy Patel MD 200 [facility] [place] [address] Advice (Appt at [facility]... Allergies No known active allergiesdocumented [...] (HCC),COPD, group C, by GOLD 2017 classification ([facility]) Inhale 3 mL via nebulizer every 4 [...] renal mass 07/11/2017 Overview: 2018 biopsy at [facility]/[place] per patient "kidney cancer". States he was advised he was not a surgical candidate. Carotid stenosis, right 07/11/2017 History of stroke 07/11/2017 Overview: TIA vs lacunar stroke diagnosed on head CT in [place] Apr 2017. Follow up MRI [facility] no infarct. Anxiety 07/11/2017 HTN, [...] on trying to get him in sooner * Telephone Encounter - Gabby Sosa RN - 03/29/2023 3:48 PM EST Extensive telephone encounter with pt who wants to know why he isnt on dialysis when he was told heneeded it 3 months ago. Pt does report that he has increased fluid in his lungs and his legs are swollen and "hard as rocks." Pt states he called the phone number for [facility] and he was told that clinic was closed. HE does wish to go to [facility] when needed. He reports that he is taki ng his medications as ordered. He is taking 40mg furosemide in the morning and 20mg in the after noon. He states that this is not getting the job done. Please advise. * Telephone Encounter - Smita Chao OSA - 03/29/2023 3:24 PM EST Pt on the line wanting to schedule at [facility] Dialysis. Pt stated he could not go to the other place as Dr. Patel does not have practicing right there. Call out to [facility] and they did not see any dialysis orders for patient and patient is not currently in theresystem. There is a referral from 04/10/22 in the patient chart. Please reach out to the center for admission process the phone number is [phone]. Thank you documented in this encounter Plan of Treatment Upcoming Encounters Date Type Department Care Team (Late st Contact Info) Description 04/11/2023 10:40 AM EST Office Visit Nephrology, [facility] [place] [address] [place] [address] oRsy Patel MD 200 [facility] [place] [address] 12/04/2023 11:40 AM EDT Office Visit Nephrology, [place] [place] [address] [place], [place] [address] Rosy Patel MD [address] [place] [address] 02/10/2024 1:00 PM EST Imaging Radiology [place] 1st Floor, [place] [facility] [place] [address] 02/25/2024 4:00 PM EST Office Visit Urology, [facility] 132 [facility] [place] [address] Cameron Romeo MD [address] [place] [address] [place] [address] Health Maintenance Due Date Last Done Comments [...] filedocumented as of this encounter Care Teams Tailing Hand Relationship Specialty Start Date End Date Jody Arora MD [address] [place] [address] [place] [phone] PCP - General Family Medicine 11/21/21 documented as of this encounter
--- OUTSIDE RECORDS SUMMARY | 2023-05-15 03:30 | External Medical Summary | Summary of Care ---
Author Name Unknown Organization [facility] Address [address] [place] [address] Phone [phone] Care Team Providers Care Wireless Manager Name Role Phone Jody Arora MD Primary Care Provide r Reason for Visit * Reason Onset Date Comments Advice 03/29/2023 Appt at [facility] Dialysis Encounter Details Date Type Department Care Team (Late st Contact Info) Description 03/29/2023 Telephone Nephrology, [place] 200 [facility] [place] [address] Rosy Patel MD 200 [place] [address] Advice (Appt at [facility]... Allergies No known active allergiesdocumented as [...] (HCC),COPD, group C, by GOLD 2017 classification ([facility]) Inhale 3 mL via nebulizer every [...] 07/11/2017 Overview: 2018 biopsy at [facility]/[place] per patient "kidney cancer". States he was advised he was not a surgical candidate. Carotid stenosis, right 07/11/2017 History of stroke 07/11/2017 Overview: TIA vs lacunar stroke diagnosed on head CT in [place] Apr 2017. Follow up MRI [facility] no infarct. Anxiety 07/11/2017 HTN, goal [...] states he called the phone number for [facility] and he was told that clinic was closed. HE does wish to go to [facility] when needed. He reports that he is taki ng his medications as ordered. He is taking 40mg furosemide in the morning and 20mg in the after noon. He states that this is not getting the job done. Please advise. * Telephone Encounter - Smita Chao OSA - 03/29/2023 3:24 PM EST Pt on the line wanting to schedule at [facility] Dialysis. Pt stated he could not go to the other place as Dr. Patel does not have practicing right there. Call out to [facility] and they did not see any dialysis orders for patient and patient is not currently in theresystem. There is a referral from 04/10/22 in the patient chart. Please reach out to the center for admission process the phone number is [phone]. Thank you documented in this encounter Plan of Treatment Upcoming Encounters Date Type Department Care Team (Late st Contact Info) Description 04/11/2023 10:40 AM EST Office Visit Nephrology, [place] [place] [address] [place] [address] Rosy Patel MD [address] [place] [address] [address] [address] 12/04/2023 11:40 AM EDT Office Visit NephrologyMitzi [address] [place] [address] [address] Rosy Patel MD [address] [place] [address] [address] 02/10/2024 1:00 PM EST Imaging Radiology [facility] [address] [facility], [address] [place] [address] 02/25/2024 4:00 PM EST Office Visit Urology, [facility] [address] [place] [address] Cameron Romeo MD 27 [facility] [place] [address] [place] [address] Health Maintenance Due Date Last Done Comments [...] filedocumented as of this encounter Care Teams Wireless Manager Relationship Specialty Start Date End Date Jody Arora MD [address] [place] [address] [place] [address] PCP - General Family Medicine 11/21/21 documented as of this encounter
--- OUTSIDE RECORDS SUMMARY | 2023-05-15 03:30 | External Medical Summary | Summary of Care ---
Author Name Unknown Organization [facility] Address [address] [place] [address] Phone [phone] Care Team Providers Care Fingernail Technician Name Role Phone Jody Arora MD Primary Care Provide r Reason for Visit * Reason Onset Date Comments Advice 03/28/2023 Encounter Details Date Type Department Care Team (Late st Contact Info) Description 03/28/[address] [place] [address] PatelRosy fine MD [address] [place] [address] Advice Allergies No known active allergiesdocumented as of this encounter (statuses as of 03/28/2023) Medications Medication Sig Dispensed Refills Start Date [...] C, by GOLD 2017 classification ([facility]) Inhale 3 mL via nebulizer [...] as of this encounter (statuses as of 03/28/2023) Active Problems Problem Noted Date Diagnosed Date [...] mass 07/11/2017 Overview: [address] [facility] per patient "kidney cancer". States he was advised he was not a surgical candidate. Carotid stenosis, right 07/11/2017 History of stroke 07/11/2017 Overview: TIA vs lacunar stroke diagnosed on head CT in [place] Apr 2017. Follow up MRI [facility] no infarct. Anxiety 07/11/2017 HTN, goal below 140/90 08/02/2015 Coronary artery disease Dyslipidemia, goal LDL below 100 documented as of this encounter (statuses as of 03/28/2023) Resolved Problems Problem Noted Date Diagnosed Date [...] as of this encounter (statuses as of 03/28/2023) Immunizations Name Administration Dates Next Due COVID-19 [...] him a call back to discuss at [phone]. Thank you * Telephone Encounter - Tigist Connor LPN - 03/28/2023 1:54 PM EST Pt is calling and requesting to speak with Dr. Patel's nurse. Call was transferred to Sujata in Nephrology scheduling. documented in this encounter Plan of Treatment Upcoming Encounters Date Type Department Care Team (Late st Contact Info) Description 04/11/2023 10:40 AM EST Office Visit Nephrology, [facility] [address] [facility] [place] [address] Rosy Patel MD [address] [facility] [place] [address] 12/04/2023 11:40 AM EDT Office Visit Nephrology, [facility] [address] [place] [address] Rosy Patel MD 200 [facility] [place] [address] 02/10/2024 1:00 PM EST Imaging Radiology [facility] [address] [facility], [place] 132 [facility] [place] [address] 02/25/2024 4:00 PM EST Office Visit Urology, [facility] 132 [facility] [place] [address] Cameron Rmoeo MD [address] [address] [place] [address] Health Maintenance Due Date Last Done Comments [...] filedocumented as of this encounter Care Teams Fingernail Technician Relationship Specialty Start Date End Date Sellathura, Thiviyanath, MD [address] [place] [address] [place] [address] PCP - General Family Medicine 11/21/21 documented as of this encounter
--- OUTSIDE RECORDS SUMMARY | 2023-05-15 03:30 | External Medical Summary | Summary of Care ---
Author Name Unknown Organization [facility] Address [address] [place] [address] Phone [phone] Care Team Providers Care Hearing Therapist Name Role Phone Jody Arora MD Primary Care Provide r Encounter Details Date Type Department Care Team (Late st Contact Info) Description 03/20/2023 Orders Only Nephrology, Mitzi Barajas 200 [facility] [place] [address] PatelRosy MD [address] [place] [address] Allergies No known active allergiesdocumented as of this encounter (statuses as of 03/20/2023) Medications Medication Sig Dispensed Refills Start Date [...] C, by GOLD 2017 classification ([facility]) Inhale 3 mL via nebulizer every [...] as of this encounter (statuses as of 03/20/2023) Active Problems Problem Noted Date Diagnosed Date [...] Overview: 2018 biopsy at [facility] per patient "kidney cancer". States he was advised he was not a surgical candidate. Carotid stenosis, right 07/11/2017 History of stroke 07/11/2017 Overview: TIA vs lacunar stroke diagnosed on head CT in [place] Apr 2017. Follow up MRI [facility] no infarct. Anxiety 07/11/2017 HTN, goal below 140/90 08/02/2015 Coronary artery disease Dyslipidemia, goal LDL below 100 documented as of this encounter (statuses as of 03/20/2023) Resolved Problems Problem Noted Date Diagnosed Date [...] as of this encounter (statuses as of 03/20/2023) Immunizations Name Administration Dates Next Due COVID-19 [...] Description 03/26/2023 11:45 AM EST Imaging Radiology [facility] 1st [facility], [place] 132 [facility] [place] [address] 04/11/2023 10:40 AM EST Office Visit Nephrology, Mitzi Barajas [address] [place] [address] Rosy Patel MD [address] [place] [address] 12/04/2023 11:40 AM EDT Office Visit Nephrology, Mitzi Barajas [address] [place] [address] Rosy Patel MD [address] [place] [address] 02/10/2024 1:00 PM EST Imaging Radiology [facility] 1st [facility] [place] 132 [facility] [place] [address] 02/25/2024 4:00 PM EST Office Visit Urology, [facility] 132 [facility] [place] [address] Cameron Romeo MD [address] [place] [address] Health Maintenance Due Date Last Done Comments Alpha-1 Antitrypsin 1958 *COPD SEVERITY VERIFIED BY PFT 07/16/2020 Depression Screening 02/28/2021 02/29/2020 Hepatitis B (3 of 3 - 19+ 3-dose series) 03/20/2023 01/23/2023, 01/08/2018 Albumin/Creatinine Ratio 08/09/2023 023, 12/07/2021, 08/10/2021, Additional history exists GFR 09/18/2023 03/19/2023, 02/15, 01/23/2023, Additional history exists PTH 12/01/2023 11/30/2022, 0409/2022, 07/19/2021, Additional history exists Hgb 02/26/2024 02/25/2023, 11/2022, 11/30/2022, Additional history exists Nephrology Referral 03/04/2024 03/04/2023 O2 ASSESSMENT COMPLETED IN PAST YEAR FOR COPD 03/04/2024 03/04/2023 Phosphate 03/04/2024 03/19/2023, 02/15, 11/30/2022, Additional history exists DTaP,Tdap,and [...] Not on filedocumented as of this encounter Procedures Procedure Name Priority Date/Time Associated Diagnosis Comments BASIC METABOLIC PANEL Routine 03/19/2023 PHOSPHORUS Routine 03/19/2023 documented in this encounter Results * (ABNORMAL) BASIC METABOLIC PANEL (03/19/2023) CREATININE-OUT SIDE LAB 4.57(A) 0.70 - 1.30 MG/DL OUTSIDE LAB (SEE SCANNED REPORT) EGFR-OUTSIDE LAB 12(A) >=60 ML/MIN OUTSIDE LAB (SEE SCANNED REPORT) POTASSIUM-OUTS JULIA LAB 4.8 3.5 - 5.1 MMOL/L OUTSIDE LAB (SEE SCANNED REPORT) GLUCOSE-OUTSID E LAB 110 70 - 110 MG/DL OUTSIDE LAB (SEE SCANNED REPORT) Blood Venous blood specimen / Unknown 03/19/2023 Rosy Patel MD LAB BLOOD ORDERAB LES OUTSIDE LAB (SEE SCANNED REPORT) * (ABNORMAL) PHOSPHORUS (03/19/2023) PHOSPHORUS-OUT SIDE LAB 5.7(A) 2.5 - 4.9 MG/DL OUTSIDE LAB (SEE SCANNED REPORT) Blood Venous blood specimen / Unknown 03/19/2023 Rosy Patel MD LAB BLOOD ORDERAB LES OUTSIDE LAB (SEE SCANNED REPORT) documented in this encounter Care Teams Hearing Therapist Relationship Specialty Start Date End Date Jody Arora MD [address] [place] [address] [place] [phone] PCP - General Family Medicine 11/21/21 documented as of this encounter
--- OUTSIDE RECORDS SUMMARY | 2023-05-15 03:30 | External Medical Summary | Summary of Care ---
Author Name Unknown Organization [facility] Address [address] [place] [address] Phone [phone] Care Team Providers Care Lead Miner Blasting Name Role Phone Jody Arora MD Primary Care Provide r Reason for Visit * Reason Onset Date Comments Advice 03/28/2023 Encounter Details Date Type Department Care Team (Late st Contact Info) Description 03/28/2023 Telephone NephrologyMitzi 200 [facility] [place] [address] PatelRosy fine MD 200 [place] [address] Advice Allergies No known active allergiesdocumented as [...] C, by GOLD 2017 classification ([facility]) Inhale 3 mL via nebulizer [...] renal mass 07/11/2017 Overview: 2018 biopsy at [facility] per patient "kidney cancer". States he was advised he was not a surgical candidate. Carotid stenosis, right 07/11/2017 History of stroke 07/11/2017 Overview: TIA vs lacunar stroke diagnosed on head CT in [place] Apr 2017. Follow up MRI [facility] no infarct. Anxiety 07/11/2017 HTN, goal below [...] him a call back to discuss at [phone]. Thank you * Telephone Encounter - Tigist Connor LPN - 03/28/2023 1:54 PM EST Pt is calling and requesting to speak with Dr. Patel's nurse. Call was transferred to Sujata in Nephrology scheduling. documented in this encounter Plan of Treatment Upcoming Encounters Date Type Department Care Team (Late st Contact Info) Description 04/11/2023 10:40 AM EST Office Visit Nephrology, [facility] 200 [facility] [place] [address] Rosy Patel MD 200 [facility] [place] [address] 12/04/2023 11:40 AM EDT Office Visit Nephrology, [facility] [address] [place] [address] Rosy Patel MD 200 [facility] [place] [address] 02/10/2024 1:00 PM EST Imaging Radiology [facility] 1st [facility], [place] 132 [facility] [place] [address] 02/25/2024 4:00 PM EST Office Visit Urology, [facility] 132 [facility] [place] [address] Cameron Romeo MD [address] [address] [place] [address] Health Maintenance Due Date Last Done Comments [...] filedocumented as of this encounter Care Teams Lead Miner Blasting Relationship Specialty Start Date End Date Sellathura, Thiviyanath, MD [address] [place] [address] [place] [address] PCP - General Family Medicine 11/21/21 documented as of this encounter
--- OUTSIDE RECORDS SUMMARY | 2023-05-15 03:31 | External Medical Summary | Summary of Care ---
Author Name Unknown Organization [facility] Address [address] [place] [address] Phone [phone] Care Team Providers Care Unit Tender Name Role Phone Jody Arora MD Primary Care Provide r Reason for Referral * Precert (Within 10 days (routine)) - Authorized Specialty Diagnoses / Procedures Referred By Adam robertson Referred To Contact Radiology Diagnoses Abnormal CXR Procedures CT CHEST WO CONTRAST Jody Arora MD [address] [place] [address] [place] [id number] Referral ID Status Reason Start Date Expiration Date V isits Requested Visits Authorized [id number] Authorized 03/13/2023 999 999 Reason for Visit * Reason Onset Date Comments Test Results 03/13/2023 Encounter Details Date Type Department Care Team (Late st Contact Info) Description 03/13/2023 Telephone Family Medicine [address] [place] [phone] Jody Arora MD [address] [place] [address] [place] [address] Test Results Allergies No known active allergiesdocumented as of this encounter (statuses as of 03/14/2023) Medications Medication Sig Dispensed Refills Start Date End Date Status nitroglycerin (NITROSTAT) 0.4 MG SUBL 1 Tablet. 0 08/19/2018 Active Ventolin HFA 108 (90 Base) MCG/ACT Inhalation Aerosol SolutionIndications:C OPD exacerbation ([facility]) Inhale by mouth 2 Puffs every 4 [...] twice daily 180 Tablet 2 11/06/2022 Active hydrOXYzine HCl 50 MG Oral TabletIndications:Celine mcdermott insomnia TAKE 1 TABLET BY MOUTH AT BEDTIME NEEDED FOR INSOMNIA 30 Tablet 1 01/07/2023 Active Carvedilol 3.125 MG Oral Tablet (Coreg) [...] mg tablet. 30 Tablet 5 03/08/2023 Active documented as of this encounter (statuses as of 03/14/2023) Active Problems Problem Noted Date Diagnosed Date [...] 2018 biopsy at [facility] per patient "kidney cancer". States he was advised he was not a surgical candidate. Carotid stenosis, right 07/11/2017 History of stroke 07/11/2017 Overview: TIA vs lacunar stroke diagnosed on head CT in [place] Apr 2017. Follow up MRI [facility] no infarct. Anxiety 07/11/2017 HTN, goal below 140/90 08/02/2015 Coronary artery disease Dyslipidemia, goal LDL below 100 documented as of this encounter (statuses as of 03/14/2023) Resolved Problems Problem Noted Date Diagnosed Date [...] as of this encounter (statuses as of 03/14/2023) Immunizations Name Administration Dates Next Due COVID-19 [...] Miscellaneous Notes * Telephone Encounter - Mary Yepez LPN [...] team (assumes he still has one; last [facility] visit in [facility]) - can refer if he would like but may take time myG sent; renal nurse pls place labs/ and if desired referral documented in this encounter Plan of Treatment Upcoming Encounters Date Type Department Care Team (Late st Contact Info) Description 04/11/2023 10:40 AM EST Office Visit Nephrology, [facility] 200 [facility] [place], [place] [address] Rosy Patel MD 200 [facility] [place] [address] 12/04/2023 11:40 AM EDT Office Visit Nephrology, Mitzi Barajas 200 [facility] [place] [address] PatelRosy fine MD 200 [facility] [place] [address] 02/10/2024 1:00 PM EST Imaging Radiology [facility] 1st [facility] [address] 02/25/2024 4:00 PM EST Office Visit Urology, [facility] 132 [place] [address] Cameron Romeo MD 27 [facility] 270 [place] [id number] Scheduled Orders Name Type Priority Associated Diagnoses [...] 08/10/2021, Additional history exists GFR 09/03/2023 03/04/2023, 11/0 10/2022, 12/28/2022, Additional history exists PTH 12/01/2023 11/30/2022, 2 [...] field documented in this encounter Care Teams Unit Tender Relationship Specialty Start Date End Date Jody Arora MD [address] [place] [address] [place] [phone] PCP - General Family Medicine 11/21/21 documented as of this encounter
--- OUTSIDE RECORDS SUMMARY | 2023-05-15 03:31 | External Medical Summary | Summary of Care ---
Author Name Unknown Organization [facility] Address [address] [place] [address] Phone [phone] Care Team Providers Care Periodontal Assistant Name Role Phone Jody Arora MD Primary Care Provide r Reason for Visit * Reason Onset Date Comments Test Results 03/19/2023 Encounter Details Date Type Department Care Team (Late st Contact Info) Description 03/19/2023 Telephone NephrologyMitzi 200 [place] [address] PatelRosy fine MD 200 [place] [address] Test Results Allergies No known active allergiesdocumented [...] renal mass 07/11/2017 Overview: 2018 biopsy at [facility] per patient "kidney cancer". States he was advised he was not a surgical candidate. Carotid stenosis, right 07/11/2017 History of stroke 07/11/2017 Overview: TIA vs lacunar stroke diagnosed on head CT in [place] Apr 2017. Follow up MRI [facility] no infarct. Anxiety 07/11/2017 HTN, goal [...] Telephone Encounter - Gabby Sosa RN - 03/19/2023 1:23 PM EST Spoke with [facility] Lab-Creat level today is 4.57. Will fax today's results to clinic. * Telephone Encounter - Marcelina Rosales OSA - 03/19/2023 1:03 PM EST 03/19/23 [facility] called and has critical lab results. Wanted to talk to a nurse. Please call Jing back at [phone]. documented in this encounter Plan of Treatment Upcoming Encounters Date Type Department Care Team (Late st Contact Info) Description 03/26/2023 11:45 AM EST Imaging Radiology [address] 132 [facility] [place] [address] 04/11/2023 10:40 AM EST Office Visit Nephrology, [facility] [address] [place] [address] Rosy Ptael MD 200 [place] [address] 12/04/2023 11:40 AM EDT Office Visit Nephrology, [facility] 200 [facility] [place] [address] Rosy Patel MD 200 [facility] [place] [address] 02/10/2024 1:00 PM EST Imaging Radiology [address] 132 [facility] [place] [address] 02/25/2024 4:00 PM EST Office Visit Urology, [facility] 132 [facility] [place] [address] Cameron [facility]o MD [facility] [address] [place] [address] Health Maintenance Due Date Last Done Comments Alpha-1 Antitrypsin 1958 *COPD SEVERITY VERIFIED BY PFT 07/16/2020 Depression Screening 02/28/2021 02/29/2020 Hepatitis B (3 of 3 - 19+ 3-dose series) 03/20/2023 01/23/2023, 01/08/2018 Albumin/Creatinine Ratio 08/09/2023 023, 12/07/2021, 08/10/2021, Additional history exists GFR 09/03/2023 03/04/2023, 110 10/2022, 12/28/2022, Additional history exists PTH 12/01/2023 [...] filedocumented as of this encounter Care Teams Periodontal Assistant Relationship Specialty Start Date End Date Jody Arora MD [address] [place] [address] [place] [id number] PCP - General Family Medicine 11/21/21 documented as of this encounter
--- OUTSIDE RECORDS SUMMARY | 2023-05-15 03:31 | External Medical Summary | Summary of Care ---
Author Name Unknown Organization [facility] Address [address] [place] [address] Phone [phone] Care Team Providers Care Subsorter Name Role Phone Jody Arora MD Primary Care Provide r Reason for Visit * Reason Onset Date Comments Test Results 03/19/2023 Encounter Details Date Type Department Care Team (Late st Contact Info) Description 03/19/2023 Telephone NephrologyMitzi 200 [place] [address] PatelRosy fine MD 200 [place] [address] Test Results Allergies No known active allergiesdocumented [...] 07/11/2017 Overview: 2018 biopsy at [facility] per patient "kidney cancer". States he was advised he was not a surgical candidate. Carotid stenosis, right 07/11/2017 History of stroke 07/11/2017 Overview: TIA vs lacunar stroke diagnosed on head CT in [place] Apr 2017. Follow up MRI [facility] [...] encounter Miscellaneous Notes * Telephone Encounter - Marcelina Rosales OSA - 03/19/2023 1:03 PM EST 03/19/23 [facility] called and has critical lab results. Wanted to talk to a nurse. Please call Jing back at [phone]. documented in this encounter Plan of Treatment Upcoming Encounters Date Type Department Care Team (Late st Contact Info) Description 03/26/2023 11:45 AM EST Imaging Radiology [address] 132 [place] [address] 04/11/2023 10:40 AM EST Office Visit Nephrology, [facility] [address] [place] [address] PatelRosy fine MD [address] [place] [address] 12/04/2023 11:40 AM EDT Office Visit Nephrology, [facility] [address] [place] [address] Rosy Patel MD 200 [facility] [place] [address] 02/10/2024 1:00 PM EST Imaging Radiology [address] 132 [place] [address] 02/25/2024 4:00 PM EST Office Visit Urology, [address] [place] [address] Cameron Romeo MD 27 [facility] 270 [place] [phone] Health Maintenance Due Date Last Done Comments [...] filedocumented as of this encounter Care Teams Subsorter Relationship Specialty Start Date End Date Jody Arora MD [address] [place] [address] [place] [phone] PCP - General Family Medicine 11/21/21 documented as of this encounter
--- OUTSIDE RECORDS SUMMARY | 2023-05-15 03:31 | External Medical Summary | Summary of Care ---
Author Name Unknown Organization [facility] Address [address] [place] [address] Phone [phone] Care Team Providers Care Women'S Studies Professor Name Role Phone Jody Arora MD Primary Care Provide r Reason for Referral * Precert (Within 10 days (routine)) - Authorized Specialty Diagnoses / Procedures Referred By Adam robertson Referred To Contact Radiology Diagnoses Abnormal CXR Procedures CT CHEST WO CONTRAST Jody Arora MD [address] [place] [address] [place] [address] Referral ID Status Reason Start Date Expiration Date V isits Requested Visits Authorized [id number] Authorized 03/13/2023 999 999 Reason for Visit * Reason Onset Date Comments Test Results 03/13/2023 Encounter Details Date Type Department Care Team (Late st Contact Info) Description 03/13/2023 Telephone Family Medicine [address] [place] [phone] Jody Arora MD [address] [place] [address] [place] [address] Test Results Allergies No known active allergiesdocumented as of this encounter (statuses as of 03/19/2023) Medications Medication Sig Dispensed Refills Start Date End Date Status nitroglycerin (NITROSTAT) 0.4 MG SUBL 1 Tablet. 0 08/19/2018 Active Ventolin HFA 108 (90 Base) MCG/ACT Inhalation Aerosol SolutionIndications:C OPD exacerbation ([facility]) Inhale by mouth 2 Puffs every 4 [...] (HCC),COPD, group C, by GOLD 2017 classification ([facility]) Inhale 3 mL via nebulizer [...] 07/11/2017 Overview: 2018 biopsy at [facility]/[place] per patient "kidney cancer". States he was advised he was not a surgical candidate. Carotid stenosis, right 07/11/2017 History of stroke 07/11/2017 Overview: TIA vs lacunar stroke diagnosed on head CT in [place] Apr 2017. Follow up MRI [facility] [...] encounter Miscellaneous Notes * Telephone Encounter - Kimmie Mckinney OSA [...] 04/11/2023 10:40 AM EST Office Visit Nephrology, [facility] 200 [facility] [place] [address] Rosy Patel MD 200 [facility] [place] [address] 12/04/2023 11:40 AM EDT Office Visit Nephrology, [facility] 200 [facility] [place] [address] Rosy Patel MD 200 [facility] [place] [address] 02/10/2024 1:00 PM EST [facility] 132 [facility] [place] [address] 02/25/2024 4:00 PM EST Office Visit Urology, [facility] 132 [facility] [place] [address] Cameron Romeo MD [address] [address] [place] [address] Scheduled Orders Name Type Priority Associated Diagnoses [...] field documented in this encounter Care Teams Women'S Studies Professor Relationship Specialty Start Date End Date Jody Arora MD [address] [place] [address] [place] [address] PCP - General Family Medicine 11/21/21 documented as of this encounter
--- OUTSIDE RECORDS SUMMARY | 2023-05-15 03:31 | External Medical Summary | Summary of Care ---
Author Name Unknown Organization [facility] Address [address] [place] [address] Phone [phone] Care Team Providers Care Gas Pump Attendant Name Role Phone Jody Arora MD Primary Care Provide r Reason for Visit * Reason Onset Date Comments Other 03/19/2023 Encounter Details Date Type Department Care Team (Late st Contact Info) Description 03/19/2023 Telephone Family [address] [place] [phone] Jody Arora MD [address] [place] [address] [place] [address] Other Allergies No known active allergiesdocumented as of [...] group C, by GOLD 2017 classification ([facility]) Inhale 3 mL via nebulizer every 4 [...] renal mass 07/11/2017 Overview: 2018 biopsy at [facility] per patient "kidney cancer". States he was advised he was not a surgical candidate. Carotid stenosis, right 07/11/2017 History of stroke 07/11/2017 Overview: TIA vs lacunar stroke diagnosed on head CT in [place] Apr 2017. Follow up MRI [facility] no infarct. Anxiety 07/11/2017 HTN, goal [...] encounter Miscellaneous Notes * Telephone Encounter - Galina Gray LPN - 03/19/2023 8:21 AM EST Patient requested lab orders that need completed today to be faxed to [facility] - Faxed with confirmation received documented in this encounter Plan of Treatment Upcoming Encounters Date Type Department Care Team (Late st Contact Info) Description 04/11/2023 10:40 AM EST Office Visit Nephrology, [facility] [address] [place] [address] Rosy Patel MD [address] [place] [address] 12/04/2023 11:40 AM EDT Office Visit Nephrology, M[facility]i Barajas [address] [place] [address] Rosy Patel MD 200 [facility] [place] [address] 02/10/2024 1:00 PM EST Imaging Radiology [address] [place] [address] 02/25/2024 4:00 PM EST Office Visit Urology, [facility] [address] [place] [address] Cameron Romeo MD [address] [place] [address] Health Maintenance Due Date Last Done Comments Alpha-1 Antitrypsin 1958 *COPD SEVERITY VERIFIED BY PFT 07/16/2020 Depression Screening 02/28/2021 02/29/2020 Hepatitis B (3 of 3 - 19+ 3-dose series) 03/20/2023 01/23/2023, 01/08/2018 Albumin/Creatinine Ratio 08/09/2023 023, 12/07/2021, 08/10/2021, Additional history exists GFR 09/03/2023 03/04/2023, 10/2022, 12/28/2022, Additional history exists PTH 12/01/2023 11/30/2022, 042 09/2022, 07/19/2021, Additional history exists Hgb 02/26/2024 [...] filedocumented as of this encounter Care Teams Gas Pump Attendant Relationship Specialty Start Date End Date Jody Arora MD [address] [place] [address] [place] [id number] PCP - General Family Medicine 11/21/21 documented as of this encounter
--- OUTSIDE RECORDS SUMMARY | 2023-05-15 03:31 | External Medical Summary | Summary of Care ---
Author Name Unknown Organization [facility] Address [address] [place] [address] Phone [phone] Care Team Providers Care Veterinary Laboratory Technician Name Role Phone Jody Arora MD Primary Care Provide r Reason for Visit * Reason Onset Date Comments Advice 03/19/2023 Stat lab results Encounter Details Date Type Department Care Team (Late st Contact Info) Description 03/19/2023 Telephone Family [address] [phone] Jody Arora MD [address] [place] [address] [place] [address] Advice (Stat lab results) Allergies No known active allergiesdocumented as of [...] 07/11/2017 Overview: [address] [facility]/[place] per patient "kidney cancer". States he was advised he was not a surgical candidate. Carotid stenosis, right 07/11/2017 History of stroke 07/11/2017 Overview: TIA vs lacunar stroke diagnosed on head CT in [place] Apr 2017. Follow up MRI [facility] no infarct. Anxiety 07/11/2017 HTN, goal below [...] encounter Miscellaneous Notes * Telephone Encounter - Eneida Franks OSA - 03/19/2023 12:49 PM EST Transferred to Nephrology * Telephone Encounter - Eneida Franks OSA - 03/19/2023 12:46 PM EST Reason for patient's call: Stat lab results Caller was transferred to [facility] at the nurse line. documented in this encounter Plan of Treatment Upcoming Encounters Date Type Department Care Team (Late st Contact Info) Description 03/26/2023 11:45 AM EST Imaging Radiology [address] [place] [address] 04/11/2023 10:40 AM EST Office Visit Nephrology, [facility] 200 [facility] [place] [address] Rosy Patel MD 200 [facility] [place] [address] 12/04/2023 11:40 AM EDT Office Visit Nephrology, [facility] 200 [facility] [place] [address] Rosy Patel MD 200 [facility] [place] [address] 02/10/2024 1:00 PM EST Imaging Radiology [address] [place] [address] 02/25/2024 4:00 PM EST Office Visit Urology, [address] [place] [address] Cameron Romeo MD [address] [place] [address] Health Maintenance Due Date Last Done Comments [...] filedocumented as of this encounter Care Teams Veterinary Laboratory Technician Relationship Specialty Start Date End Date Jody Arora MD [address] [place] [address] [place] [phone] PCP - General Family Medicine 11/21/21 documented as of this encounter
--- OUTSIDE RECORDS SUMMARY | 2023-05-15 03:32 | External Medical Summary ---
Author Name Unknown Address Unknown Organization K01:[facility] [place] [address] [place] [address] Laboratory Report Ordering Provider Test Date Status OLEGARIO MALDONADO 03/04/2023 16:18:14 Final Observation Date Value Abnormality Reference (Units ) Status Albumin 03/04/2023 16:18:14 4.6 3.8-5.0 (g /dL) Final Performing Location LAB[facility]ATORY [facility] - [address] [place] [address]
--- OUTSIDE RECORDS SUMMARY | 2023-05-15 03:32 | External Medical Summary | Summary of Care ---
Author Name Unknown Organization [facility] Address [address] [place] [address] Phone [phone] Care Team Providers Care Card Grinder Helper Name Role Phone Jody Arora MD Primary Care Provide r Reason for Visit * Reason Comments Outpatient Testing Encounter Details Date Type Department Care Team (Late st Contact Info) Description 03/04/2023 4:20 PM EST Laboratory Laboratory [address] [place] [phone] [place] [address] Arrived Allergies No known active allergiesdocumented as of this encounter (statuses as of 03/04/2023) Medications Medication Sig Dispensed Refills Start Date [...] C, by GOLD 2017 classification ([facility]) Inhale 3 mL via nebulizer every 4 hours as needed for Wheezing. 120 mL 1 10/17/2022 Active hydrALAZINE HCl 25 MG Oral Tablet (Apresoline) Take 1 tablet by mouth twice daily 180 Tablet 2 11/06/2022 Active Furosemide 40 MG Oral Tablet Take 1.5 Tablets by mouth in the morning. 30 Tablet 11 12/21/2022 Active hydrOXYzine HCl 50 MG Oral TabletIndications:Celine [...] 2 days 30 Tablet 0 03/04/2023 Active Doxycycline Hyclate 100 MG Oral CapsuleIndications:Sk in ulcer, limited to breakdown of skin (HCC) Take 1 Capsule by mouth in the morning and 1 Capsule before bedtime. Do all this for 7 days. Take for 7 days. 14 Capsule 0 03/04/2023 03/11/2023 Active documented as of this encounter (statuses as of 03/04/2023) Active Problems Problem Noted Date Diagnosed Date [...] Overview: [address] [facility]/[place] per patient "kidney cancer". States he was advised he was not a surgical candidate. Carotid stenosis, right 07/11/2017 History of stroke 07/11/2017 Overview: TIA vs lacunar stroke diagnosed on head CT in [place] Apr 2017. Follow up MRI [facility] no infarct. Anxiety 07/11/2017 HTN, goal below 140/90 08/02/2015 Coronary artery disease Dyslipidemia, goal LDL below 100 documented as of this encounter (statuses as of 03/04/2023) Resolved Problems Problem Noted Date Diagnosed Date [...] as of this encounter (statuses as of 03/04/2023) Immunizations Name Administration Dates Next Due COVID-19 [...] Care Team (Late st Contact Info) Description 03/05/2023 3:45 PM EST Telemedicine Urology Margie Don[address] [place] [address] Cameron Romeo MD [address] [place] [address] 04/11/2023 10:40 AM EST Office Visit Nephrology, Mitzi Barajas [address] [place], [place] [address] Rosy Patel MD 200 [facility] [place], [place] [address] 12/04/2023 11:40 AM EDT Office Visit Nephrology, Mitzi Barajas [address] [place], [place] [address] Rosy Patel MD 200 [facility] [place] [address] Health Maintenance Due Date Last Done Comments Alpha-1 Antitrypsin 1958 *COPD SEVERITY VERIFIED BY PFT 07/16/2020 Depression Screening 02/28/2021 02/29/2020 Hepatitis B (3 of 3 - 19+ 3-dose series) 03/20/2023 01/23/2023, 01/08/2018 GFR 07/24/2023 01/23/2023, 12/16, 12/24/2022, Additional history exists Albumin/Creatinine Ratio 08/09/2023 023, 12/07/2021, 08/10/2021, Additional history exists PTH 12/01/2023 11/30/2022, 06/17, 07/19/2021, Additional history exists Phosphate 12/01/2023 11/30/2022, 06/17, 06/20/2022, Additional history exists Nephrology Referral 01/24/2024 01/23/2023 O2 ASSESSMENT COMPLETED IN PAST YEAR FOR COPD 01/24/2024 01/23/2023 Hgb 02/26/2024 02/25/2023, 10/0 11/2022, 11/30/2022, Additional history exists DTaP,Tdap,and Td Vaccines [...] filedocumented as of this encounter Care Teams Card Grinder Helper Relationship Specialty Start Date End Date Jody Arora MD [address] [place] [address] [place] [address] PCP - General Family Medicine 11/21/21 documented as of this encounter
--- OUTSIDE RECORDS SUMMARY | 2023-05-15 03:32 | External Medical Summary ---
Author Name Unknown Address Unknown Organization K01:[facility] [place] [facility] [place] [address] [place] [address] Laboratory Report Ordering Provider Test Date Status OLEGARIO MALDONADO 03/04/2023 16:18:14 Final Observation Date Value Abnormality Reference (Units ) Status BUN 03/04/2023 16:18:14 74 Above high normal 6-20 (mg/dL) Final Creatinine 03/04/2023 16:18:14 4.2 Above high normal 0.6-1.2 (mg/dL) Final Glomerular filtration rate/1.73 sq M.predicted [Volume Rate/Area] in Serum, Plasma or Blood by Creatinine-based formula (CKD-EPI) 03/04/2023 16:18:14 13 Below low normal >=60 (mL/min) Final eGFR is calculated based on the CKD-EPI 2020 equation SODIUM 03/04/2023 16:18:14 141 135-146 (m mol/L) Final Potassium 03/04/2023 16:18:14 5.5 Above high normal 3. 5-5.1 (mmol/L) Final Cl 03/04/2023 16:18:14 103 98-107 (mm ol/L) Final CO2 03/04/2023 16:18:14 25 22-32 (mmo l/L) Final Anion gap 03/04/2023 16:18:14 13 7-15 (mmol /L) Final Glucose 03/04/2023 16:18:14 144 Above high normal 70 -120 (mg/dL) Final Calcium 03/04/2023 16:18:14 8.7 8.4-10.2 ( mg/dL) Final Performing Location [facility] [place] [facility] [place] [address] [place] [address]
--- OUTSIDE RECORDS SUMMARY | 2023-05-15 03:32 | External Medical Summary | Summary of Care ---
Author Name Unknown Organization [facility] Address [address] [place] [address] Phone [phone] Care Team Providers Care Lay Out Carpenter Name Role Phone Jody Arora MD Primary Care Provide r Reason for Referral * Precert (Within 10 days (routine)) - Authorized Specialty Diagnoses / Procedures Referred By Adam robertson Referred To Contact Radiology Diagnoses Abnormal CXR Procedures CT CHEST WO CONTRAST Jody Arora MD [address] [place] [address] [place] [id number] Referral ID Status Reason Start Date Expiration Date V isits Requested Visits Authorized [id number] Authorized 03/13/2023 999 999 Reason for Visit * Reason Onset Date Comments Test Results 03/13/2023 Encounter Details Date Type Department Care Team (Late st Contact Info) Description 03/13/2023 Telephone Family Medicine [address] [place] [phone] Jody Arora MD [address] [place] [address] [place] [address] Test Results Allergies No known active allergiesdocumented as of this encounter (statuses as of 03/13/2023) Medications Medication Sig Dispensed Refills Start Date End Date Status nitroglycerin (NITROSTAT) 0.4 MG SUBL 1 Tablet. 0 08/19/2018 Active Ventolin HFA 108 (90 Base) MCG/ACT Inhalation Aerosol SolutionIndications:C OPD exacerbation ([facility]) Inhale by mouth 2 Puffs [...] (HCC),COPD, group C, by GOLD 2017 classification ([facility]) Inhale 3 mL via nebulizer [...] as of this encounter (statuses as of 03/13/2023) Active Problems Problem Noted Date Diagnosed Date [...] 07/11/2017 Overview: 2018 biopsy at [facility]/[place] per patient "kidney cancer". States he was advised he was not a surgical candidate. Carotid stenosis, right 07/11/2017 History of stroke 07/11/2017 Overview: TIA vs lacunar stroke diagnosed on head CT in [place] Apr 2017. Follow up MRI [facility] no infarct. Anxiety 07/11/2017 HTN, goal below 140/90 08/02/2015 Coronary artery disease Dyslipidemia, goal LDL below 100 documented as of this encounter (statuses as of 03/13/2023) Resolved Problems Problem Noted Date Diagnosed Date [...] as of this encounter (statuses as of 03/13/2023) Immunizations Name Administration Dates Next Due COVID-19 [...] team (assumes he still has one; last G visit in 2019) - can refer if he would like but may take time myG sent; renal nurse pls place labs/ and if desired referral documented in this encounter Plan of Treatment Upcoming Encounters Date Type Department Care Team (Late st Contact Info) Description 04/11/2023 10:40 AM EST Office Visit Nephrology, Mitzi Barajas [address] [place] [address] Rosy Patel MD 200 [facility] [place], [place] [address] 12/04/2023 11:40 AM EDT Office Visit Nephrology, [facility]i Barajas [address] [facility] [place] [address] Rosy Patel MD 200 [facility] [place] [address] 02/10/2024 1:00 PM EST Imaging Radiology [address] [facility] [place] [address] 02/25/2024 4:00 PM EST Office Visit Urology, [facility] 132 [facility] [place] [address] Cameron Romeo MD 27 [facility] [address] [place] [address] Scheduled Orders Name Type Priority Associated Diagnoses [...] 08/10/2021, Additional history exists GFR 09/03/2023 03/04/2023, 0 10/2022, 12/28/2022, Additional history exists PTH 12/01/2023 [...] field documented in this encounter Care Teams Lay Out Carpenter Relationship Specialty Start Date End Date Jody Arora MD [address] [place] [address] [place] [phone] PCP - General Family Medicine 11/21/21 documented as of this encounter
--- OUTSIDE RECORDS SUMMARY | 2023-05-15 03:32 | External Medical Summary | Summary of Care ---
Author Name Unknown Organization [facility] Address [address] [place] [facility] [place] [address] Phone [phone] Care Team Providers Care Box Fabricator Name Role Phone Jody Perales MD Primary Care Provide r Reason for Referral * Precert (Within 10 days (routine)) - Authorized Specialty Diagnoses / Procedures Referred By Adam robertson Referred To Contact Radiology Diagnoses Renal cell carcinoma of right kidney (HCC) Complex renal cyst Procedures MRI KIDNEY W WO CONTRAST Cameron Romeo MD [address] [place] [address] [place] [id number] Referral ID Status Reason Start Date Expiration Date V isits Requested Visits Authorized [id number] Authorized 02/10/2024 [id number] Encounter Details Date Type Department Care Team (Late st Contact Info) Description 03/05/2023 3:45 PM EST Telemedicine Urology Margie Donis [address] [place] [address] [place] [address] Cameron Romeo MD [address] [place] [address] [place] [address] 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 States he was advised he was not a surgical candidate. Carotid stenosis, right 07/11/2017 History of stroke 07/11/2017 Overview: TIA vs lacunar stroke diagnosed on head CT in [place] Apr 2017. Follow up MRI [facility] no infarct. Anxiety 07/11/2017 HTN, goal below 140/90 08/02/2015 Coronary artery disease Dyslipidemia, goal LDL below 100 documented as of this encounter (statuses as of 03/05/2023) Resolved Problems Problem Noted Date Diagnosed Date [...] as of this encounter (statuses as of 03/05/2023) Immunizations Name Administration Dates Next Due COVID-19 [...] as of this encounter Progress Notes * Cameron Romeo MD - 03/05/2023 3:45 PM EST [phone] PCP: JODY PERALES [address] [place] [address] [place] [address] Patient location: HOME. I was in a hospital or clinic location. After connecting through [employer],patient was verified with two unique identifiers. Patient (or authorized legal apprenticeship representative) was then informed that this was a Telemedicine visit and being conducted confidentially over secure lines. Methods to assure confidentiality were taken. Patient acknowledged consent and understanding of pr ivacy and security of the Telemedicine visit. The patient agreed to participate. Justin Pinedo is a 82 year old male, who presents for f/u of his imaging studies. MRI reviewed via screen share. He notes worsening breathing. He notes he is pending possible dialysis. Renal cell carcinoma: Presented with myself December 2022. Renal ultrasound December 2021: IMPRESSION Increased echogenicity of the kidneys suggesting medical renal disease. Persistent left upper pole mass suspicious for neoplasm Mild 3.3 cm distal abdominal aortic aneurysm. BPH: He has tried tamsulosin. Problem has been present for years. MRI Jan 2023: IMPRESSION Bilateral renal atrophy. Multiple fluid signal and proteinaceous renal cysts. Left renal upper pole19 x 11 x 14 mm cortical lesion corresponding to the hypoechoic lesion on prior ultrasound and not significantly changed in size, slightly smaller. A solid lesion is not distinguished from a proteinaceous cyst. Current Outpatient Medications Medication Sig Dispense Refill nitroglycerin (NITROSTAT) 0.4 MG SUBL 1 Tablet. Ventolin HFA 108 (90 Base) MCG/ACT Inhalation Aerosol Solution Inhale by mouth 2 Puffs every 4 hours as needed for Wheezing. 18 g 1 Fluticasone Propionate (Inhal) 50 MCG/BLIST Inhalation Aerosol Powder Breath Activated Inhale 1 Puff by mouth in the morning and 1 Puff before bedtime. Albuterol Sulfate (2.5 MG/3ML) 0.083% Inhalation Nebulization Solution (Proventil) Inhale 1 Vial (2.5 mg) via nebulizer every 6 hours as needed for Wheezing. 360 mL 0 Rosuvastatin Calcium 40 MG Oral Tablet (Crestor) Take 1 Tablet by mouth in the morning. 90 Tablet 3 Sodium Bicarbonate 650 MG Oral Tablet Take 1 Tablet by mouth in the morning and 1 Tablet before bedtime. 120 Tablet 11 Melatonin 10 MG Oral Capsule Take 1 Capsule by mouth at bedtime. Ipratropium-Albuterol 0.5-2.5 (3) MG/3ML Inhalation Solution (Duoneb) Inhale 3 mL via nebulizer every 4 hours as needed for Wheezing. 120 mL 1 hydrALAZINE HCl 25 MG Oral Tablet (Apresoline) Take 1 tablet by mouth twice daily 180 Tablet 2 Furosemide 40 MG Oral Tablet Take 1.5 Tablets by mouth in the morning. 30 Tablet 11 hydrOXYzine HCl 50 MG Oral Tablet TAKE 1 TABLET BY MOUTH AT BEDTIME NEEDED FOR INSOMNIA 30 Tablet 1 Carvedilol 3.125 MG Oral Tablet (Coreg) Take 1 tablet by mouth twice daily with food 180 Tablet 1 Venlafaxine HCl ER 37.5 MG Oral Capsule Extended Release 24 Hour (Effexor XR) TAKE 1 CAPSULE BY MOUTH ONCE DAILY . DO NOT CHEW,CRUSH OR CUT 90 Capsule 3 Menthol-Zinc Oxide 0.44-20.6 % External Ointment (Calmoseptine) Apply to sore skin twice a day. 71 g 2 NIFEdipine ER 60 MG Oral Tablet Extended Release 24 Hour (Adalat CC) TAKE 1 TABLET BY MOUTH TWICE DAILY (MORNING AND BEFORE BEDTIME) 60 Tablet 11 Tamsulosin HCl 0.4 MG Oral Capsule (Flomax) Take 1 capsule by mouth in the morning 90 Capsule 1 predniSONE 10 MG Oral Tablet (Deltasone) Take 5 tabs for 2 days, 4 tabs for 2 days, 3 tabs for 2 days, 2 tabs for 2 days 1 tab for 2 days 30 Tablet 0 Doxycycline Hyclate 100 MG Oral Capsule Take 1 Capsule by mouth in the morning and 1 Capsule beforebedtime. Do all this for 7 days. Take for 7 days. 14 Capsule 0 No current facility-administered medications for this visit. Review of patient's allergies indicates: No Known Allergies Social History: Social History Tobacco Use Smoking status: Former Types: Cigars Quit date: 03/18/1969 Years since quittin.0 Smokeless tobacco: Never Tobacco comments: one cigar a day Substance Use Topics Alcohol use: Yes Comment: rare Vaping/E-Cigarette Use Vaping/E-Cigarette Substances Vaping/E-Cigarette Devices Family History Problem Relation Age of Onset Colon cancer Father 58 Cancer Brother 65 Past Surgical History: Procedure Laterality Date CHOLECYSTOTOMY OR CHOLECYSTOSTOMY, OPEN COLONOSCOPY several--Dr. Robb. normal PATIENT HAS A CORONARY ARTERY STENT 1998 REMOVAL OF APPENDIX remote SUTURE REPAIR OF ECTROPION Bilateral 11/09/2020 Past Medical History: Diagnosis Date Basal cell carcinoma (BCC) of skin of face 07/11/2017 CKD (chronic kidney disease), stage IV (HCC) Coronary artery disease Dyslipidemia, goal LDL below 100 Microalbuminuria Myocardial infarct, old 1998 stent in [place]--Dr. 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 Paroxysmal nocturnal dyspnea R06.00 Obesity, Class I, BMI 30.0-34.9 (see actual BMI) E66.9 Chronic hypoxemic respiratory failure ([facility]) J96.11 Benign hypertension with chronic kidney disease, stage IV (HCC) I12.9, N18.4 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, J44.9 History of basal cell carcinoma Z85.828 Old myocardial infarct I25.2 C7 radiculopathy M54.12 Lumbosacral radiculopathy at L5 M54.17 Renal osteodystrophy N25.0 Hx of nonmelanoma skin cancer Z85.828 AK (actinic keratosis) L57.0 Kidney disease, chronic, stage IV (GFR 15-29 ml/min) ([facility]) N18.4 COPD, group C, by GOLD 2017 classification ([facility]) J44.9 BPH without obstruction/lower urinary tract symptoms N40.0 Right sided weakness R53.1 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 Constitutional: General: He is not in acute distress. Appearance: He is not ill-appearing or toxic-appearing. HENT: Head: Normocephalic and atraumatic. Right Ear: External ear normal. Left Ear: External ear normal. Nose: Nose normal. Mouth/Throat: Mouth: Mucous membranes are moist. Eyes: Extraocular Movements: Extraocular movements intact. Pulmonary: Effort: Respiratory distress (mild) present. Neurological: General: No focal deficit present. Mental Status: He is oriented to person, place, and time. Motor: No weakness. Gait: Gait normal. Psychiatric: Behavior: Behavior normal. Impression/Plan: 82-year-old comorbid male with stable renal lesion. Findings reviewed with patient. Especially in the context of the patient's difficulties with renal function and pulmonary function I think continued observation would be landers. No significant change in his imaging over the past year. Will plan on repeat MRI in a year. Continue Tamiflu patient will with any worrisome signs symptoms in the interim. Patient vocalizes good understanding of the treatment plan. Above content is personally reviewed. 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
--- OUTSIDE RECORDS SUMMARY | 2023-05-15 03:32 | External Medical Summary | Summary of Care ---
Author Name Unknown Organization [facility] Address [address] [place] [address] Phone [phone] Care Team Providers Care Miller Head Wet Process Name Role Phone Jody Arora MD Primary Care Provide r Reason for Referral * Evaluate & Treat - Unlimited Visits (Within 10 days (routine)) - Authorized Specialty Diagnoses / Procedures Referred By Adam robertson Referred To Contact Wound Care Diagnoses Skin ulcer, limited to breakdown of skin (HCC) Jody Arora MD [address] [place] [address] [place] [address] Referral ID Status Reason Start Date Expiration Date Visits Requested Visits Authorized [id number] Authorized Specialty Services Required 3 [id number] Question Answer Referral Priority Within 10 days (routine) Where should this appointment be scheduled? External Comments Assess for: Present over 30 days Reason for Visit * Reason Comments Acute Encounter Details Date Type Department Care Team (Late st Contact Info) Description 03/04/2023 2:40 PM EST Office Visit Family Medicine [address] [place] [phone] Jody Arora MD [address] [place] [address] [place] [address] Skin ulcer, limited to breakdown of skin (HCC)*; COPD exacerbation (HCC) Allergies No known active allergiesdocumented as [...] renal mass 07/11/2017 Overview: 2018 biopsy at [facility]/[place] per patient "kidney cancer". States he was advised he was not a surgical candidate. Carotid stenosis, right 07/11/2017 History of stroke 07/11/2017 Overview: TIA vs lacunar stroke diagnosed on head CT in [place] Apr 2017. Follow up MRI [facility] no infarct. Anxiety 07/11/2017 HTN, goal [...] Sign Reading Time Taken Comments Blood Pressure 142/66 03/04/2023 2:38 PM EST Pulse 88 03/04/2023 2:38 PM EST Temperature 35.8 C (96.4 F) 03/04/2023 2:38 PM ES T Respiratory Rate - - Oxygen Saturation 85% 03/04/2023 2:38 PM EST Inhaled Oxygen Concentration - - Weight 89.9 kg (198 lb 3.2 oz) 03/04/2023 2:38 P M EST Height - - Body Mass Index 34.02 11/13/2022 9:14 AM EDT documented in this encounter Progress Notes * Jody Arora MD - 03/04/2023 2:46 PM EST Subjective: HPI: Justin Pinedo is a 82 year old male with hx of CAD s/p stent, ESRD, COPD (wears nocturnal oxygen 4L), MOLLY, HTN, carotid stenosis, HTN, DDD, anemia, anxiety, CVA with R sided weakness, COVID infection (02/2021), prediabetes, BPH, hx of RLE DVT and PE (was on coumadin) seen for Gluteal area pain for few months - has had superficial ulcer - denied any drainage - has taken abx in the past Cough, wheezing for 10 days - denied any fever Patient Active Problem List Diagnosis Code HTN, [...] actual BMI) E66.9 Chronic hypoxemic respiratory failure ([facility]) J96.11 Benign hypertension with chronic kidney disease, stage IV ([facility]) I12.9, N18.4 MOLLY and COPD overlap syndrome ([facility]) G47.33, J44.9 History of basal cell carcinoma Z85.828 Old myocardial infarct I25.2 C7 radiculopathy M54.12 Lumbosacral radiculopathy at L5 M54.17 Renal osteodystrophy N25.0 Hx of nonmelanoma skin cancer Z85.828 AK (actinic keratosis) L57.0 Kidney disease, chronic, stage IV (GFR 15-29 ml/min) ([facility]) N18.4 COPD, group C, by GOLD 2017 classification ([facility]) J44.9 BPH without obstruction/lower urinary tract symptoms N40.0 Right sided weakness 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 14 Capsule 0 nitroglycerin (NITROSTAT) 0.4 MG SUBL 1 Tablet. [...] mouth in the morning 90 Capsule 1 No current facility-administered medications for this visit. Past Medical History: Diagnosis Date Basal cell carcinoma (BCC) of skin of face 07/11/2017 CKD (chronic kidney disease), stage IV (HCC) Coronary artery disease Dyslipidemia, goal LDL below 100 Microalbuminuria Myocardial infarct, old 1998 stent in [place]--Dr. 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 Pneumonia of right middle lobe due to infectious organism 01/16/2018 Pulmonary embolism (HCC) Past Surgical History: Procedure Laterality Date CHOLECYSTOTOMY OR CHOLECYSTOSTOMY, OPEN COLONOSCOPY several--Dr. Robb. normal PATIENT HAS A CORONARY ARTERY STENT 1998 REMOVAL OF APPENDIX remote SUTURE REPAIR OF ECTROPION Bilateral 11/09/2020 Review of patient's allergies indicates: No Known Allergies Family History Problem Relation Age of Onset Colon cancer Father 58 Cancer Brother 65 Social History Tobacco Use Smoking status: Former Types: Cigars Quit date: 03/18/1969 Years since quittin.9 Smokeless tobacco: Never Tobacco comments: one cigar a day Substance Use Topics Alcohol use: Yes Comment: rare Vaping/E-Cigarette Use Vaping/E-Cigarette Substances Vaping/E-Cigarette Devices ROS: -Per HPI OBJECTIVE: BP 142/66 | Pulse 88 | Temp 35.8 C (96.4 F) | Wt 89.9 kg (198 lb 3.2 oz) | SpO2 85% | BMI 34.02kg/m | BSA 2.02 m PHYSICAL EXAM: Lungs: Good air entry b/l with exp wheezing Gluteal area(pt did not want cmo) - stage 1 pressure ulcer on the mid L gluteal area ASSESSMENT/PLAN: Due to the presence of ulcer for few months will refer the pt to wound clinic - duoderm given - advised the pt to use cushion when he sits If no improvement of cough in 10 days then call the clinic - might consider CXR Called and updated pt;s daughter Skin ulcer, limited to breakdown of skin (HCC) (Primary) - WOUND CARE REFERRAL OP - Doxycycline Hyclate 100 MG Oral Capsule; Take 1 Capsule by mouth in the morning and 1 Capsule before bedtime. Do all this for 7 days. Take for 7 days. COPD exacerbation (HCC) - predniSONE 10 MG Oral Tablet (Deltasone); Take 5 tabs for 2 days, 4 tabs for 2 days, 3 tabs for 2days, 2 tabs for 2 days 1 tab for 2 days I spent a total of 30-39 minutes (exact time 33 mins) on the date of service in preparation, delivery, and documentation of the care provided to Justin Pinedo excluding any time spent in the performance of separately billed services. Jody Arora MD Family medicine, [address] [address] documented in this encounter Nursing Notes * Elisa Mcmahon CMA - 03/04/2023 2:38 PM EST He is here for a sore on his buttocks. While he is here he thinks he may have pink eye. documented in this encounter Plan of Treatment Upcoming Encounters Date Type Department Care Team (Late st Contact Info) Description 12/04/2023 11:40 AM EDT Office Visit Nephrology, [facility] [address] [place] [address] Rosy Patel MD [address] [place] [address] Scheduled Referrals Name Type Priority Associated Diagnoses Orde r Schedule WOUND CARE REFERRAL OP Referral Within 10 days (routine) Skin ulcer, limited to breakdown of skin (HCC) Ordered: 03/04/2023 Health Maintenance Due Date Last Done Comments Alpha-1 Antitrypsin 1958 *COPD SEVERITY VERIFIED BY PFT 07/16/2020 Depression Screening 02/28/2021 02/29/2020 Hepatitis B (3 of 3 - 19+ 3-dose series) 03/20/2023 01/23/2023, 01/08/2018 GFR 07/24/2023 01/23/2023, 12/16, 12/24/2022, Additional history exists Albumin/Creatinine Ratio 08/09/2023 023, 12/07/2021, 08/10/2021, Additional history exists PTH 12/01/2023 11/30/2022, 06/17, 07/19/2021, Additional history exists Phosphate 12/01/2023 11/30/2022, 04/2 09/2022, 06/20/2022, Additional history exists Nephrology Referral 01/24/2024 [...] as of this encounter Visit Diagnoses Diagnosis Skin ulcer, limited to breakdown of skin (HCC)- Primary COPD exacerbation (HCC) Obstructive chronic bronchitis with exacerbation documented in this encounter Care Teams Miller Head Wet Process Relationship Specialty Start Date End Date Jody Arora MD [address] [place] [address] [place] [address] PCP - General Family Medicine 11/21/21 documented as of this encounter
--- OUTSIDE RECORDS SUMMARY | 2023-05-15 03:32 | External Medical Summary | Summary of Care ---
Author Name Unknown Organization [facility] Address [address] [place] [address] Phone [phone] Care Team Providers Care Banking Attorney Name Role Phone Jody Arora MD Primary Care Provide r Reason for Visit * Reason Comments eRx-Medication Refill Encounter Details Date Type Department Care Team (Late st Contact Info) Description 03/07/2023 Refill Nephrology [address] [place] [phone] Joel Melvin MD [address] [place] [address] [place] [address] Allergies No known active allergiesdocumented as of this encounter (statuses as of 03/08/2023) Medications Medication Sig Dispensed Refills Start Date [...] 11/06/2022 Active hydrOXYzine HCl 50 MG Oral TabletIndications:P [...] 03/04/2023 Active Doxycycline Hyclate 100 MG Oral CapsuleIndications: Skin ulcer, limited to breakdown of skin (HCC) Take 1 Capsule by mouth in the morning and 1 Capsule before bedtime. Do all this for 7 days. Take for 7 days. 14 Capsule 0 03/04/2023 03/11/20 Active Furosemide 40 MG Oral Tablet (Lasix) Take 1 Tablet by mouth in the morning. along with one 20 mg tablet daily. 30 Tablet 5 03/08/2023 Active Furosemide 20 MG Oral Tablet (Lasix) Take 1 Tablet by mouth in the morning. Along with one 40 mg tablet. 30 Tablet 5 03/08/2023 Active Furosemide 40 MG Oral Tablet Take 1.5 Tablets by mouth in the morning. 30 Tablet 11 12/21/2022 03/08/20 23 Discontinued documented as of this encounter (statuses as of 03/08/2023) Active Problems Problem Noted Date Diagnosed Date [...] renal mass 07/11/2017 Overview: 2018 biopsy at [facility] per patient "kidney cancer". States he was advised he was not a surgical candidate. Carotid stenosis, right 07/11/2017 History of stroke 07/11/2017 Overview: TIA vs lacunar stroke diagnosed on head CT in [place] Apr 2017. Follow up MRI [facility] no infarct. Anxiety 07/11/2017 HTN, goal below 140/90 08/02/2015 Coronary artery disease Dyslipidemia, goal LDL below 100 documented as of this encounter (statuses as of 03/08/2023) Resolved Problems Problem Noted Date Diagnosed Date [...] as of this encounter (statuses as of 03/08/2023) Immunizations Name Administration Dates Next Due COVID-19 [...] Telephone Encounter - Joel Melvin MD - 03/08/2023 6:47 AM ESTSigned Prescriptions: Disp Refills Furosemide 40 MG Oral Tablet (Lasix) 30 Tab*5 Sig: Take 1 Tablet by mouth in the morning. along with one 20 mg tablet daily. Authorizing Provider: JOEL MELVIN Furosemide 20 MG Oral Tablet (Lasix) 30 Tab*5 Sig: Take 1 Tablet by mouth in the morning. Along with one 40 mg tablet. Authorizing Provider: JOEL CHRISTIANSON * Telephone Encounter - Luz San LPN - 03/07/2023 3:32 PM ESTPending Prescriptions: Disp Refills Furosemide 40 MG Oral Tablet (Lasix) 30 Tab*5 Sig: Take 1 Tablet by mouth in the morning. along with one 20 mg tablet daily. Furosemide 20 MG Oral Tablet (Lasix) 30 Tab*5 Sig: Take 1 Tablet by mouth in the morning. Along with one 40 mg tablet. -- * Telephone Encounter - Luz San LPN - 03/07/2023 3:19 PM EST Per instructions in office visit 03-04-23, Pt to start lasix 60 mg daily. One 40 mg tab along with one 20 mg tab daily. Pending, please review and auth if agree. * Telephone Encounter - Luz San LPN - 03/07/2023 3:18 PM ESTPending Prescriptions: Disp Refills Furosemide 40 MG Oral Tablet (Lasix) [Pha*30 Tab*0 Sig: TAKE 1 TABLET BY MOUTH IN THE MORNING * Telephone Encounter - Lauren Fritz OSA - 03/07/2023 2:21 PM EST Pt is calling saying the pharmacy never got the prescription for the new fluid pill Dr. Melvin was suppose to order. Please check into this and call him. [phone]. Thank you [facility] [employer] documented in this encounter Plan of Treatment Upcoming Encounters Date Type Department Care Team (Late st Contact Info) Description 04/11/2023 10:40 AM EST Office Visit Nephrology, [facility] [address] [place] [address] Joel Melvin MD [address] [facility] [place] [address] 12/04/2023 11:40 AM EDT [facility] [address] [place] [address] Joel Melvin MD [address] [facility] [place] [address] 02/10/2024 1:00 PM EST Imaging Radiology [facility] [address] [facility] [place] [address] 02/25/2024 4:00 PM EST Office Visit Urology, [facility] [address] [facility] [place] [address] Cameron Romeo MD [address] [place] [address] [place] [address] Health Maintenance Due Date Last Done Comments [...] filedocumented as of this encounter Care Teams Banking Attorney Relationship Specialty Start Date End Date Jody Arora MD [address] [place] [address] [place] [address] PCP - General Family Medicine 11/21/21 documented as of this encounter
--- OUTSIDE RECORDS SUMMARY | 2023-05-15 03:32 | External Medical Summary ---
Author Name Unknown Address Unknown Organization [facility] - [address] [place] [address] Laboratory Report Ordering Provider Test Date Status OLEGARIO MALDONADO 03/04/2023 16:18:14 Final Observation Date Value Abnormality Reference (Units ) Status Phosphate 03/04/2023 16:18:14 5.2 Above high normal 2. 5-4.8 (mg/dL) Final Performing Location [facility] [address] [place] [address]
--- OUTSIDE RECORDS SUMMARY | 2023-05-15 03:32 | External Medical Summary | Summary of Care ---
Author Name Unknown Organization [facility] Address [address] [place] [address] Phone [phone] Care Team Providers Care Fast Food Assistant Restaurant Manager Name Role Phone Jody Arora MD Primary Care Provide r Reason for Visit * Reason Onset Date Comments Test Results 03/08/2023 Encounter Details Date Type Department Care Team (Late st Contact Info) Description 03/08/2023 Telephone Nephrology, [address] [address] Rosy Patel MD [address] [place] [address] [id number] Test Results Allergies No known active allergiesdocumented [...] C, by GOLD 2017 classification ([facility]) Inhale 3 mL via nebulizer every 4 [...] days. 14 Capsule 0 03/04/2023 03/11/2023 Active Furosemide 40 MG Oral Tablet (Lasix) [...] Overview: 2018 biopsy at [facility] per patient "kidney cancer". States he was advised he was not a surgical candidate. Carotid stenosis, right 07/11/2017 History of stroke 07/11/2017 Overview: TIA vs lacunar stroke diagnosed on head CT in [place] Apr 2017. Follow up MRI [facility] [...] encounter Miscellaneous Notes * Telephone Encounter - Luz San LPN - 03/08/2023 9:50 AM EST Call to pt. Patient has been informed of below message and verbalized understanding. Pt did not receive MyG. Lab orders placed. Pt will let SA know if he needs / want referral to lung specialist. * Telephone Encounter - Luz San LPN - 03/08/2023 9:34 AM EST ----- Message from Rosy Patel [...] Description 04/11/2023 10:40 AM EST Office Visit Mitzi Guerrero [address] [place] [address] [address] Rosy Patel MD [address] [place] [address] 12/04/2023 11:40 AM EDT Office Visit NephMitzi garcia [address] [place], [place] [address] Rosy Patel MD 200 [facility] [place] [address] 02/10/2024 1:00 PM EST Imaging Radiology [facility] 1st [facility] [address] [facility] [place] [address] 02/25/2024 4:00 PM EST Office Visit Urology, [facility] [address] [facility] [place] [address] Cameron Romeo MD [address] [facility] [address] [place] [address] Scheduled Orders Name Type Priority Associated Diagnoses Orde r Schedule BASIC METABOLIC PANEL Lab Routine Kidney disease, chronic, stage IV (GFR 15-29 ml/min) ([facility]) Expected: 03/19/2023 (Approximate), Expires: 03/08/2024 PHOSPHORUS Lab Routine Kidney disease, chronic, stage IV (GFR 15-29 ml/min) ([facility]) Expected: 03/19/2023 (Approximate), Expires: 03/08/2024 Health Maintenance Due Date Last Done Comments [...] disease, chronic, stage IV (GFR 15-29 ml/min) (HCC)- Primary Chronic kidney disease, Stage IV (severe) documented in this encounter Care Teams Fast Food Assistant Restaurant Manager Relationship Specialty Start Date End Date Jody Arora MD [address] [place] [address] [place] [address] PCP - General Family Medicine 11/21/21 documented as of this encounter
--- OUTSIDE RECORDS SUMMARY | 2023-05-15 03:32 | External Medical Summary | Summary of Care ---
Author Name Unknown Organization [facility] Address [address] [place] [address] Phone [phone] Care Team Providers Care Coating Machine Helper Name Role Phone London Perales MD Primary Care Provide r Reason for Visit * Reason Comments Chronic Kidney Disease (CKD) Chronic kid holly disease IV, left renal mass, metabolic acidosis, HTN, pap. Renal cell carcinoma. Encounter Details Date Type Department Care Team (Late st Contact Info) Description 03/04/2023 3:20 PM EST Office Visit Nephrology [address] [place] [address] Rosy Patel MD [address] [place] [address] [place] [address] Kidney disease, chronic, stage IV (GFR 15-29 ml/min) ([facility])*; HTN, goal below 130/80; Persistent proteinuria, unspecified; Metabolic acidosis; Left renal mass Allergies No known active allergiesdocumented as of this encounter (statuses as of 03/12/2023) Medications Medication Sig Dispensed Refills Start Date [...] 30 Tablet 11 12/21/2022 03/08/20 23 Discontinued Doxycycline Hyclate 100 MG Oral CapsuleIndications: Skin ulcer, limited to breakdown of skin (HCC) Take 1 Capsule by mouth in the morning and 1 Capsule before bedtime. Do all this for 7 days. Take for 7 days. 14 Capsule 0 03/04/2023 03/11/20 23 documented as of this encounter (statuses as of 03/12/2023) Active Problems Problem Noted Date Diagnosed Date [...] Overview: 2018 biopsy at [facility] per patient "kidney cancer". States he was advised he was not a surgical candidate. Carotid stenosis, right 07/11/2017 History of stroke 07/11/2017 Overview: TIA vs lacunar stroke diagnosed on head CT in [place] Apr 2017. Follow up MRI [facility] no infarct. Anxiety 07/11/2017 HTN, goal below 140/90 08/02/2015 Coronary artery disease Dyslipidemia, goal LDL below 100 documented as of this encounter (statuses as of 03/12/2023) Resolved Problems Problem Noted Date Diagnosed Date [...] as of this encounter (statuses as of 03/12/2023) Immunizations Name Administration Dates Next Due COVID-19 [...] Sign Reading Time Taken Comments Blood Pressure 141/55 03/04/2023 3:54 PM EST Pulse 86 03/04/2023 3:54 PM EST Temperature 36.6 C (97.8 F) 03/04/2023 3:42 PM ES T Respiratory Rate - - Oxygen Saturation 90% 03/04/2023 3:45 PM EST Inhaled Oxygen Concentration - - Weight 89.5 kg (197 lb 6.4 oz) 03/04/2023 3:42 P M EST Height - - Body Mass Index 33.88 11/13/2022 9:14 AM EDT documented in this encounter Patient Instructions * Patient Instructions* Rosy Patel MD - 03/04/2023 4:00 PM EST -labs today and CXR -will send lasix rx to pharmacy for 60 mg daily (which is one 40 mg tab plus one 20 mg tab) -no change to other meds -Smita will be in touch about hep B shots -avoid medicines like aleve, advil, ibuprofen, aspirin more than 81 mg daily and other NSAIDS whichare not good for kidney patients. Take only tylenol (acetaminophen) up to 2000 mg daily as needed for pain or as directed by your primary care provider. documented in this encounter Progress Notes * Rosy Patel MD - 03/04/2023 3:29 PM EST NEPHROLOGY CLINIC NOTE Nephrology [address] [place] [address] 03/04/2023, 3:29 PM Patient Name: Justin Pinedo BACKGROUND: 82 year old male presents for close in f/u of progressive ckd 4 verging on CKD 5 and 1.5 grams of proteinuria from tobacco abuse, htn and advanced age; high ESRD risk. PMH includes severe lung dz, stroke w/ residual R leg weakness and R arm pain, renal cell carcinoma, CAD, monoclonal gammopathy follows w/ [facility]. History of late acute/subacute lacunar infarct of the right posterior temporal/occipital white matter -- picked up during 04/2017 HTN urgency admission. Hx HTN since 1998. Sees [facility] urologist in [place] annually >> for 2.6 cm left renal cell CA but not a surgical candidate; also prostatic hypertropy. 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 Hx of dvt and pe in the of unclear etiology. Hx of skin cancer. Hx of hyperkalemia, improved with avoiding high k foods. Covid Feb 2021; got mAb; no residual issues. Follows w/ Dr Olmstead [facility] cardiology. Pt withCAD > [place] in 1998 and one stent in 1998 at [place]. Hx of smoking cigarettes/cigars until the . has marked RLS. Fell down steps 2021 but "saved the turkey." Falls often. Had extensive course of antifungals fall 2017 for mycotic pulmonary infection>>Admission summer 2017 [place] [facility] RML, higher K -- in fall 2017, diagnosed with pulmonary fungal infection and started on itraconazole. Follows w/ [facility] pulm, last seen 02/2019. also follows with local powerhouse attendant Dr Jain. Since health events 2018 (stroke, PNA, pulmonary fungal infection), much poorer functional status>> prior to summer 2017 illness could do 9 holes golf w/o issue, could haddad/fish - limited by energy; not limited by breathing. Then Fall/winter 2017-2019 after that summer PNA, breathing much worse and energy lower; exertional dypsnea w/ walking to front end manager. Huffs and puffs to walk 50 yards on flat and tired but could still talk; but breathing better than it had been earlier 2017 fall when he would have had to sit and rest to walk same distance same surface. May 2020 walks 50 feet before needing to sit/rest. Admitted [facility] February 01 to 2021 with acute on chronic kidney injury as well as pneumonia from COVID-19. Admission creatinine 4.2, peak creatinine 4.6, plateau around 4. TRACY from [facility] related to ischemia and hypoxia. No nsaids. 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 Continues to work with mental health and addiction counseling on week days. TODAY 03/04/2023: saw PCP today; was for 3 mo f/u w/ me but that appt cx'd and needed f/u. Sent by PCP to wound clinic for pilonidal /cyst/backside wound so he will be [id number] that set up ;wants to disc MRI kidney earlier this month >> [facility] says pt cx'd urology f/u for tomorrow to discuss but pt denies; willing to reschedule. Legs ok Given med for congestion by pcp; mild sob today stable/chronic >> and initially 88% on RA, increased to 90 % w/ rest. along today REVIEW OF SYSTEMS General: No fatigue, No change in weight Head: No significant headache Respiratory: + chronic cough mainly in the morningNo wheezing, + shortness of breath -with exertion Cardiovascular:No chest pain, No palpitations, and No syncope Gastrointestinal: No nausea, vomiting, diarrhea No blood in stools No abdominal pain >> noting more abd girth Urinary: No dysuira, No hematuria. No flank pain > ? Less UOP Musculoskeletal: No muscle/joint pains , + chronic edema of LE dependent; no futher leg cramps Skin: No itching No orthostatic or presyncopal sx; one recent fall as above no injuries apart from bruises Current Outpatient Medications Medication Sig Dispense Refill Furosemide 40 MG Oral Tablet (Lasix) Take 1 Tablet by mouth in the morning. Take one tablet in AM with one 20mg tablet for a total of 60mg daily.. 90 Tablet 3 Furosemide 20 MG Oral Tablet (Lasix) Take 1 Tablet by mouth in the morning. Along with one 40mg tablet to equal 60mg total daily.. 90 Tablet 3 nitroglycerin (NITROSTAT) 0.4 MG SUBL [...] by mouth twice daily 180 Tablet 2 hydrOXYzine HCl 50 MG Oral Tablet TAKE [...] Take for 7 days. 14 Capsule 0 Furosemide 40 MG Oral Tablet (Lasix) Take 1 Tablet by mouth in the morning. along with one 20 mg tablet daily. 30 Tablet 5 Furosemide 20 MG Oral Tablet (Lasix) Take 1 Tablet by mouth in the morning. Along with one 40 mg tablet. 30 Tablet 5 No current facility-administered medications for this visit. Review of patient's allergies indicates: No Known Allergies PHYSICAL EXAMINATION: BP Readings from Last 6 Encounters: 03/04/23 141/55 03/04/23 142/66 01/24/23 134/70 01/23/23 158/60 11/30/22 124/59 11/13/22 124/68 Wt Readings from Last 6 Encounters: 03/04/23 89.5 kg (197 lb 6.4 oz) 03/04/23 89.9 kg (198 lb 3.2 oz) 01/24/23 82.6 kg (182 lb) 01/23/23 82.8 kg (182 lb 9.6 oz) 11/30/22 86.6 kg (191 lb) 11/13/22 75.8 kg (167 lb) Pulse Readings from Last 6 Encounters: 03/04/23 86 03/04/23 88 01/23/23 73 11/30/22 75 11/13/22 74 11/01/22 65 02 sat 90% RA NAD, oriented x 3, ambulatory w/ can Normocephalic, atraumatic, eomi nonicteric sclerae MMM Supple neck RRR w/o m/g/r; 1++BLe edema Wheezes, diminished air mvt NT abd, +BS, soft No cyanosis or clubbing; R r-c AVF + t/b No rash No tremor, focal or global weakness; fluent speech, endorses some memory loss LABS: Recent Labs Units 03/04/23 1618 01/23/23 1026 12/28/22 1334 12/24/22 0000 12/20/22 1227 SODIUM - [facility] mmol/L 141 142 141 -- 140 POTASSIUM - [facility] mmol/L 5.5* 5.1 4.9 -- 5.6* POTASSIUM-OUTSIDE LAB MMOL/L -- -- -- 4.2 -- CHLORIDE - [facility] mmol/L 103 104 103 -- 105 CO2 - [facility] mmol/L 25 23 26 -- 22 EGFR-OUTSIDE LAB ML/MIN/1.73M2 -- -- -- 15* -- BUN - [facility] mg/dL 74* 87* 60* -- 67* CREATININE - [facility] mg/dL 4.2* 4.8* 3.7* -- 3.8* CREATININE-OUTSIDE LAB MG/DL -- -- -- 3.75* -- ESTIMATED GLOMERULAR FILTRATION RATE - [facility] mL/min 13* 11* 16* -- 15* Recent Labs Units 02/25/23 0000 12/24/22 0000 11/30/22 1543 06/20/22 1213 HGB - [facility] g/dL -- -- 9.3* 9.5* HEMOGLOBIN-OUTSIDE LAB G/DL 9.0* 9.0* -- -- TRANSFERRIN SATURATION PERCENT - [facility] % -- -- 25 -- Recent Labs Units 03/04/23 1618 01/23/23 1026 12/28/22 1334 12/20/22 1227 11/30/22 1543 08/08/22 1236 07/12/22 1350 06/20/22 1213 12/07/21 1115 07/19/21 1601 CALCIUM - [facility] mg/dL 8.7 8.7 8.5 8.7 8.2* < > 8.3* 8.5 < > 8.7 PHOSPHORUS - [facility] mg/dL 5.2* -- -- -- 5.5* -- 4.8 4.9* < > 4.7 25-HYDROXY VITAMIN D - [facility] ng/mL -- -- -- -- 25 -- 23 -- -- -- PTH - [facility] pg/mL -- -- -- -- 155* -- 206* -- -- 76* < > = values in [...] - [facility] /HPF 0-2 0-2 -- 0-2 MRI kidney Feb 2023 Liver: Within normal limits. Gallbladder/biliary tree: Cholecystectomy. No intrahepatic or extrahepatic biliary ductal dilatation. Pancreas: Within normal limits. Spleen: Within normal limits. Adrenal glands: Within normal limits. Kidneys:The kidneys are atrophic with cortical thinning. Numerous fluid signal cysts are present, largest in the left renal lower pole 32 x 51 mm with a thin internal septation. There are numerous bilateral increased T1 signal and decreased T2-2 signal proteinaceous cysts bilaterally. The hypoechoic left renal upper pole lesion seen on ultrasound corresponds to an 19 x 11 x 14 mm cortical lesion which is moderately T2 hypointense and mildly T1 hyperintense (was 22 x 16 x 17 mm on ultrasound 12/27/2021). A solid renal neoplasm is not distinguished from a proteinaceous cyst on the current exam without IV contrast. No hydronephrosis. Bowel: No abnormal bowel distension. Lymph nodes: No adenopathy. Peritoneum/retroperitoneum: Within normal limits. Vessels: Atherosclerotic changes. Abdominal wall/soft tissues: Within normal limits. Bones: Mild degenerative changes. Lung bases: Mild signal alterations at the right lung base may be atelectasis. IMPRESSION IMPRESSION Bilateral renal atrophy. Multiple fluid signal and proteinaceous renal cysts. Left renal upper pole19 x 11 x 14 mm cortical lesion corresponding to the hypoechoic lesion on prior ultrasound and not significantly changed in size, slightly smaller. A solid lesion is not distinguished from a proteinaceous cyst. ASSESSMENT AND PLAN: Kidney disease, chronic, stage IV (GFR 15-29 ml/min) ([facility]) (Primary) - XR CHEST 2 VIEWS - BASIC METABOLIC PANEL - PHOSPHORUS - ALBUMIN HTN, goal below 130/80 Persistent proteinuria, unspecified Metabolic acidosis Left renal mass Other orders - Furosemide 40 MG Oral Tablet (Lasix); Take 1 Tablet by mouth in the morning. Take one tablet in AM with one 20mg tablet for a total of 60mg daily.. - Furosemide 20 MG Oral Tablet (Lasix); Take 1 Tablet by mouth in the morning. Along with one 40mg tablet to equal 60mg total daily.. Follow Up: Return in about 4 weeks (around 04/01/2023) for clinic visit w/ . | For: clinic visit w/ | Check-out note: -reschedule w/ urology re MRI findings/video MD only CKD 4 verging on CKD 5 with most recent estimated GFR last month between and . Will update labs today. Labs today -GIGI-inhibitor/ARB and SGLT2 inhibitor both contraindicated due to advanced renal disease -has AV fistula ready to use and still on the fence about whether he will go to [facility] or [facility] for incenter hemo when needed -continue efforts to get hep B vaccinations taking care of -x-ray given patient's dyspnea and increase Lasix as below Blood pressure above target today. With his wound pain and shortness of breath this is not the primary focus today -continue Coreg, hydralazine current doses -increase Lasix as below Patient with 1 g proteinuria or more; continue efforts to control blood pressure and follow closely. High risk for ESRD Metabolic acidosis controlled on sodium bicarbonate which should continue Sees Urology tomorrow for second opinion regarding left renal mass Patient Instructions -labs today and CXR -will send lasix rx to pharmacy for 60 mg daily (which is one 40 mg tab plus one 20 mg tab) -no change to other meds -Smita will be in touch about hep B shots -avoid medicines like aleve, advil, ibuprofen, aspirin more than 81 mg daily and other NSAIDS whichare not good for kidney patients. Take only tylenol (acetaminophen) up to 2000 mg daily as needed for pain or as directed by your primary care provider. Rosy Patel MD Nephrology [address] [place] [address] CC: Ref: LONDON PERALES[[id number]] [address] [place] [address] [place] [address] (office) [phone] (fax) PCP: LONDON PERALES [address] [place] [address] [place] [address] [phone] This chart was completed in part utilizing [employer]ote Speech Voice Recognition Software. Randomword insertions, pronoun errors, and incomplete sentences are an occasional consequence of this system due to software limitations, and ambient noise. Any questions or concerns about the content, text, or information contained within the body of this dictation should be directly addressed to the provider for clarification. documented in this encounter Nursing Notes * Jayla Wu LPN - 03/04/2023 3:48 PM EST Patient identified by full name and date of Chief Complaint Patient presents with Chronic Kidney Disease (CKD) Chronic kidney disease IV, left renal mass, metabolic acidosis, HTN, pap. Renal cell carcinoma. Pt asking about his MRI that he had done of the kidney that was 02/26/2023 documented in this encounter Miscellaneous Notes * Result Encounter Note - Luz San LPN - 03/08/2023 9:52 AM EST See TE * Result Encounter Note - Rosy Patel MD - 03/08/2023 8:36 AM EST Kidney labs slightly worse >> creatinine about [...] Office Visit NephrologyMitzi [address] [place] [address] [address] Rosy Patel MD [address] [place] [address] [address] 12/04/2023 11:40 AM EDT Office Visit NephMitzi garcia [address] [place] [address] [address] [address] Rosy Patel MD [address] [place] [address] [address] 02/10/2024 1:00 PM EST Imaging Radiology [facility] 1[facility] [place] [address] [facility] [place] [address] 02/25/2024 4:00 PM EST Office Visit Urology, [facility] [address] [facility] [place] [address] Cameron Romeo MD [address] [place] [address] Health Maintenance Due Date Last Done Comments [...] Procedure Name Priority Date/Time Associated Diagnosis Comments XR CHEST 2 VIEWS Routine 03/04/2023 4:21 PM EST Kidney disease, chronic, stage IV (GFR 15-29 ml/min) (HCC) BASIC METABOLIC PANEL Routine 03/04/2023 4:18 PM EST Kidney disease, chronic, stage IV (GFR 15-29 ml/min) (HCC) PHOSPHORUS Routine 03/04/2023 4:18 PM EST Kidney disease, chronic, stage IV (GFR 15-29 ml/min) (HCC) ALBUMIN Routine 03/04/2023 4:18 PM EST Kidney disease, chronic, stage IV (GFR 15-29 ml/min) (HCC) documented in this encounter Results * XR CHEST 2 VIEWS (03/04/2023 4:21 PM EST) Anatomical Region Laterality Modality Chest Computed Radiogr aphy 03/05/2023 11:0 7 AM EST Impressions 03/05/2023 11:04 AM EST IMPRESSION Increasing right middle lobe and lower lobe atelectasis. Narrative 03/05/2023 11:04 AM EST EXAM XR CHEST 2 VIEWS - 03/04/2023 4:21 pm HISTORY sob, congestion COMPARISON 10/17/2022 TECHNIQUE PA and lateral chest. FINDINGS Right middle and lower lobe volume loss and opacification with elevation of the right hemidiaphragm, increased from 10/17/2022. Left lung is clear. Cardiomediastinal silhouette is not enlarged. No vascular congestion. Degenerative changes are present in the spine. Procedure Note Alysa Bledsoe MD - 03/05/2023 EXAM XR CHEST 2 VIEWS - 03/04/2023 4:21 pm HISTORY sob, congestion COMPARISON 10/17/2022 TECHNIQUE PA and lateral chest. FINDINGS Right middle and lower lobe volume loss and opacification with elevationof the right hemidiaphragm, increased from 10/17/2022. Left lung isclear. Cardiomediastinal silhouette is not enlarged. No vascularcongestion. Degenerative changes are present in the spine. IMPRESSION IMPRESSION Increasing right middle lobe and lower lobe atelectasis. Rosy Patel MD RADIOLOGY (RAD [facility]) * ALBUMIN (03/04/2023 4:18 PM EST) Pathologist [facility] Albumin 4.6 3.8 - 5.0 g/dL 03/05/2023 1:09 AM EST LABORATORY [facility] Blood Venous blood specimen / Unknown Venipuncture / Unknown 03/04/2023 4:18 PM EST 03/04/2023 4:18 PM EST Rosy Patel MD LAB BLOOD ORDERAB LES LABORATORY [facility] [address] [place] [address] * (ABNORMAL) PHOSPHORUS (03/04/2023 4:18 PM EST) Pathologist [facility] Phosphorus 5.2(H) 2.5 - 4.8 mg/dL 03/05/2023 1:09 AM EST LABORATORY [facility] Blood Venous blood specimen / Unknown Venipuncture / Unknown 03/04/2023 4:18 PM EST 03/04/2023 4:18 PM EST Rosy Patel MD LAB BLOOD ORDERAB LES LABORATORY [facility] [address] [place] [address] * (ABNORMAL) BASIC METABOLIC PANEL (03/04/2023 4:18 PM EST) BUN 74(H) 6 - 20 mg/dL 03/05/2023 1:09 AM EST [facility] Creatinine 4.2(H) 0.6 - 1.2 mg/dL 03/05/2023 1:09 AM EST [facility] Estimated Glomerular Filtration Rate 13(L) >=60 mL/min 03/05/2023 1:09 AM EST [facility] Comment:eGFR is calculated b ased on the CKD-EPI 2020 equation Sodium 141 135 - 146 mmol/L 03/05/2023 1:09 AM EST [facility] Potassium 5.5(H) 3.5 - 5.1 mmol/L 03/05/2023 1:09 AM EST [facility] Chloride 103 98 - 107 mmol/L 03/05/2023 1:09 AM EST [facility] CO2 25 22 - 32 mmol/L 03/05/2023 1:09 AM EST [facility] Anion Gap 13 7 - 15 mmol/L 03/05/2023 1:09 AM EST [facility] Glucose 144(H) 70 - 120 mg/dL 03/05/2023 1:09 AM EST [facility] Calcium 8.7 8.4 - 10.2 mg/dL 03/05/2023 1:09 AM EST [facility] Blood Venous blood specimen / Unknown Venipuncture / Unknown 03/04/2023 4:18 PM EST 03/04/2023 4:18 PM EST Rosy Patel MD LAB BLOOD ORDERAB LES Performing Organization Address City/State[facility] Co de Phone Number [facility] [address] [place] [address] documented in this encounter Visit Diagnoses Diagnosis Kidney disease, chronic, stage IV (GFR 15-29 ml/min) ([facility])- Primary Chronic kidney disease, Stage IV (severe) HTN, goal below 130/80 Unspecified essential hypertension Persistent proteinuria, unspecified Metabolic acidosis Acidosis Left renal mass Unspecified disorder of kidney and ureter documented in this encounter Care Teams Coating Machine Helper Relationship Specialty Start Date End Date London Perales MD [address] [place] [address] [place] [phone] PCP - General Family Medicine 11/21/21 documented as of this encounter
--- OUTSIDE RECORDS SUMMARY | 2023-05-15 03:33 | External Medical Summary | Summary of Care ---
Author Name Unknown Organization [facility] Address [address] [place] [address] Phone [phone] Care Team Providers Care Stock Supervisor Name Role Phone Jody Arora MD Primary Care Provide r Reason for Visit * Reason Onset Date Comments Referral 02/15/2023 [facility] Discharge ( HTN ) Encounter Details Date Type Department Care Team (Late st Contact Info) Description 02/15/2023 Telephone Pharmacy, [place] [address] [place] [address] [facility] [address] [place] [address] Referral ([facility] Discharge ( HTN )) Allergies No known active allergiesdocumented as of this encounter (statuses as of 02/15/2023) Medications Medication Sig Dispensed Refills Start Date [...] Capsule by mouth at bedtime. 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 To affected area for 4 weeks, or until healed. 45 g 1 01/24/2023 02/21/2023 Active Menthol-Zinc Oxide 0.44-20.6 % External Ointment (Calmoseptine)Indicat ions:Tinea cruris Apply to sore skin twice a day. 71 g 2 01/24/2023 Active NIFEdipine ER 60 MG Oral Tablet Extended Release 24 Hour (Adalat CC) TAKE 1 TABLET BY MOUTH TWICE DAILY (MORNING AND BEFORE BEDTIME) 60 Tablet 11 02/01/2023 Active documented as of this encounter (statuses as of 02/15/2023) Active Problems Problem Noted Date Diagnosed Date [...] lacunar stroke diagnosed on head CT in [place] Apr 2017. Follow up MRI [facility] no infarct. Anxiety 07/11/2017 HTN, goal below 140/90 08/02/2015 Coronary artery disease Dyslipidemia, goal LDL below 100 documented as of this encounter (statuses as of 02/15/2023) Resolved Problems Problem Noted Date Diagnosed Date [...] as of this encounter (statuses as of 02/15/2023) Immunizations Name Administration Dates Next Due COVID-19 mRNA, LNP-s, No Pre serve, 2-Dose Series (Moderna) 01/10/2021,05/24/2020,04/26/2020 COVID-19, MRNA-LNP, 23-24, P F, 50 MCG/0.5 mL, 12 YRS AND ABOVE, IM (MODERNA-Spikevax) 01/03/2023 Hepatitis B, 20+ yrs 01/23/2023,01/08/2018 Pneumococcal Conjugate Vacc, 13 Valent (Prevnar) 01/16/2018 Pneumococcal Polysaccharide PPV23 (Pneumovax) 02/09/2015 Rsv Vac., Recomb, Adjuvant, Pf,0.5 Ml (Arexvy) 01/03/2023 SEASONAL INFLUENZA, PF, 6 M & Above, IM , (FLULAVAL or FLUZONE) 12/05/2020,12/22/2018,12/16/2016 Seasonal Influenza Virus Vac cine, Unspecified Formulation 12/16/2018 Seasonal Influenza, Quadriva lent Hd (Fluzone Hd) [...] encounter Miscellaneous Notes * Telephone Encounter - Elizabeth Reza PHARM Tech - 02/15/2023 11:21 AM EST Patient Phone Numbers Spoke to pt to reschedule new HTN appointment. He is not interested in rescheduling. Discharging ptfrom MTDM services at this time. Thank you, Elizabeth Reza Instrumentation Technician [facility] ([facility]) [phone] 02/15/2023,11:23 AM documented in this encounter Plan of Treatment Upcoming Encounters Date Type Department Care Team (Late st Contact Info) Description 02/22/2023 10:00 AM EST Nurse Only Ancillary David Garcia[address] [place] [address] [place], Nurse [address] [place] [id number] 02/26/2023 2:30 PM EST Imaging Radiology [address], [place] [address] [facility] [place] [address] 12/04/2023 11:40 AM EDT Office Visit Nephrology, Mitzi Barajas [address] [place] [address] Rosy Patel MD [address] [place] [address] Health Maintenance Due Date Last Done Comments [...] 12/01/2023 11/30/2022, 06/17, 06/20/2022, Additional history exists Hgb 12/25/2023 12/24/2022, 11/16, 06/20/2022, Additional history exists Nephrology Referral 01/24/2024 01/23/2023 O2 ASSESSMENT COMPLETED IN PAST YEAR FOR COPD 01/24/2024 01/23/2023 DTaP,Tdap,and Td Vaccines (2 - Td or [...] filedocumented as of this encounter Care Teams Stock Supervisor Relationship Specialty Start Date End Date Jody Arora MD [address] [place] [address] [place] [id number] PCP - General Family Medicine 11/21/21 documented as of this encounter
--- OUTSIDE RECORDS SUMMARY | 2023-05-15 03:33 | External Medical Summary | Summary of Care ---
Author Name Unknown Organization [facility] Address [address] [place] [address] Phone [phone] Care Team Providers Care Sexual Health Physician Name Role Phone Jody Arora MD Primary Care Provide r Reason for Visit * Reason Onset Date Comments Advice 02/25/[address] [facility] [address] , Nurse Dr Shankar Med Request 02/25/2023 Encounter Details Date Type Department Care Team (Late st Contact Info) Description 02/25/2023 Telephone Family Medicine [address] [phone] Jody Arora MD [address] [place] [address] [place] [address] Advice ([facility] , Nurse Dr Shankar)... Allergies No known active allergiesdocumented as of this encounter (statuses as of 02/28/2023) Medications Medication Sig Dispensed Refills Start Date [...] group C, by GOLD 2017 classification ([facility]) Inhale 3 mL via nebulizer every 4 hours as needed for Wheezing. 120 mL 1 10/17/2022 Active hydrALAZINE HCl 25 MG Oral Tablet (Apresoline) Take 1 tablet by mouth twice daily 180 Tablet 2 11/06/2022 Active Furosemide 40 MG Oral Tablet Take 1.5 Tablets by mouth in the morning. 30 Tablet 11 12/21/2022 Active hydrOXYzine HCl 50 MG Oral TabletIndications:P [...] in the morning 90 Capsule 1 08/23/2022 02/29/20 23 Discontinued documented as of this encounter (statuses as of 02/28/2023) Active Problems Problem Noted Date Diagnosed Date [...] Overview: 2018 biopsy at [facility] per patient "kidney cancer". States he was advised he was not a surgical candidate. Carotid stenosis, right 07/11/2017 History of stroke 07/11/2017 Overview: TIA vs lacunar stroke diagnosed on head CT in [place] Apr 2017. Follow up MRI [facility] no infarct. Anxiety 07/11/2017 HTN, goal below 140/90 08/02/2015 Coronary artery disease Dyslipidemia, goal LDL below 100 documented as of this encounter (statuses as of 02/28/2023) Resolved Problems Problem Noted Date Diagnosed Date [...] as of this encounter (statuses as of 02/28/2023) Immunizations Name Administration Dates Next Due COVID-19 [...] Telephone Encounter - Kimmie Mckinney OSA - 02/28/2023 3:16 PM EST There is a new tele enc from today, pt is asking for a referral to a specialist. * Telephone Encounter - Rea Bosch LPN - 02/28/2023 10:12 AM EST See Note below Needs Apt with PCP * Telephone Encounter - Jody Arora MD - 02/27/2023 4:01 PM EST I would like to see the pt in the clinic for evaluation * Telephone Encounter - Christelle Shirley RN - 02/27/2023 11:40 AM EST Pt was seen by Dr Calhoun on 01-24-23 for this same thing. Can you send more meds? * Telephone Encounter - Tanja Tadeo OSA - 02/25/2023 12:49 PM EST Shelly from [facility] , Nurse Dr Shankar nurse called to report that Pt was there at [facility] for labs and asked that they assess his buttocks for new lesions that he has Nurse says she thinks he has been prescribed meds in past by PCP They just wanted PCP to be made aware as the cancer provider does not do anything for lesions and directed PCP to reach out to Pt to advise Any questions call Shelly at [phone] documented in this encounter Plan of Treatment Upcoming Encounters Date Type Department Care Team (Late st Contact Info) Description 12/04/2023 11:40 AM EDT Office Visit Nephrology, Mitzi Barajas [address] [place] [address] Rosy Patel MD [address] [facility] [place] [address] Health Maintenance Due Date Last Done Comments [...] filedocumented as of this encounter Care Teams Sexual Health Physician Relationship Specialty Start Date End Date Jody Arora MD [address] [place] [address] [place] [id number] PCP - General Family Medicine 11/21/21 documented as of this encounter
--- OUTSIDE RECORDS SUMMARY | 2023-05-15 03:33 | External Medical Summary | Summary of Care ---
Author Name Unknown Organization [facility] Address [address] [place] [address] Phone [phone] Care Team Providers Care Under Seal Operator Name Role Phone Jody Arora MD Primary Care Provide r Reason for Visit * Reason Onset Date Comments Advice 02/28/2023 Encounter Details Date Type Department Care Team (Late st Contact Info) Description 02/28/2023 Telephone Family [address] [phone] Jody Arora MD [address] [place] [address] [place] [address] Advice (/) Allergies No known active allergiesdocumented as of this encounter (statuses as of 03/01/2023) Medications Medication Sig Dispensed Refills Start Date [...] (HCC),COPD, group C, by GOLD 2017 classification ([facility]) Inhale 3 mL via nebulizer every 4 [...] as of this encounter (statuses as of 03/01/2023) Active Problems Problem Noted Date Diagnosed Date [...] renal mass 07/11/2017 Overview: 2018 biopsy at [facility] per patient "kidney cancer". States he was advised he was not a surgical candidate. Carotid stenosis, right 07/11/2017 History of stroke 07/11/2017 Overview: TIA vs lacunar stroke diagnosed on head CT in [place] Apr 2017. Follow up MRI [facility] no infarct. Anxiety 07/11/2017 HTN, goal below 140/90 08/02/2015 Coronary artery disease Dyslipidemia, goal LDL below 100 documented as of this encounter (statuses as of 03/01/2023) Resolved Problems Problem Noted Date Diagnosed Date [...] as of this encounter (statuses as of 03/01/2023) Immunizations Name Administration Dates Next Due COVID-19 [...] encounter Miscellaneous Notes * Telephone Encounter - Elisa Mcmahon CMA - 03/01/2023 4:05 PM EST I called patient. Dr. Nunez wants to see him because per last note it was healing. He is coming Saturday at 2:40. * Telephone Encounter - Madison Lubin LPN - 02/28/2023 11:12 AM EST Patient calling in stating that he still has the sores on his bottom and they are very tender that he can barely sit down. I asked if he wanted an appointment to have them looked at but he declined and stated that Jody Arora MD has already looked at them. He is asking for a referral to a specialist to have them looked at. Please advise. documented in this encounter Plan of Treatment Upcoming Encounters Date Type Department Care Team (Late st Contact Info) Description 03/04/2023 2:40 PM EST Office Visit Family Medicine [address] [place] [phone] Jody Arora MD [address] [place] [address] [place] [phone] 12/04/2023 11:40 AM EDT Office Visit Nephrology, Mitzi Barajas [address] [facility] [place] [address] Rosy Patel MD [address] [facility] [place] [address] Health Maintenance Due Date Last Done Comments [...] FOR COPD 01/24/2024 01/23/2023 Hgb 02/26/2024 02/25/2023, 11/2022, 11/30/2022, Additional history exists DTaP,Tdap,and Td [...] filedocumented as of this encounter Care Teams Under Seal Operator Relationship Specialty Start Date End Date Jody Arora MD [address] [place] [address] [place] [phone] PCP - General Family Medicine 11/21/21 documented as of this encounter
--- OUTSIDE RECORDS SUMMARY | 2023-05-15 03:33 | External Medical Summary | Summary of Care ---
Author Name Unknown Organization [facility] Address [address] [place] [address] Phone [phone] Care Team Providers Care Senior Tech Manufacturing Engineering Name Role Phone Jody Arora MD Primary Care Provide r Reason for Visit * Reason Onset Date Comments Appointment 02/25/2023 Encounter Details Date Type Department Care Team (Late st Contact Info) Description 02/25/[address]phone [address] [facility] [place] [address] Jessica Reyes TECH Appointment Allergies No known active allergiesdocumented as of this encounter (statuses as of 02/25/2023) Medications Medication Sig Dispensed Refills Start Date [...] as of this encounter (statuses as of 02/25/2023) Active Problems Problem Noted Date Diagnosed Date [...] renal mass 07/11/2017 Overview: 2018 biopsy at [facility] per patient "kidney cancer". States he was advised he was not a surgical candidate. Carotid stenosis, right 07/11/2017 History of stroke 07/11/2017 Overview: TIA vs lacunar stroke diagnosed on head CT in [place] Apr 2017. Follow up MRI [facility] no infarct. Anxiety 07/11/2017 HTN, goal below 140/90 08/02/2015 Coronary artery disease Dyslipidemia, goal LDL below 100 documented as of this encounter (statuses as of 02/25/2023) Resolved Problems Problem Noted Date Diagnosed Date [...] as of this encounter (statuses as of 02/25/2023) Immunizations Name Administration Dates Next Due COVID-19 [...] encounter Miscellaneous Notes * Telephone Encounter - Jessica Reyes TECH - 02/25/2023 10:00 AM EST Name: Justin Pinedo Do you have any of the following: Pacemaker, stents, heart valves, aneurysm clips? Yes-heart stents Have you ever worked with metal or have you ever gotten metal in your eyes? No Have you had a colonoscopy in the last 30 days? 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 No or ? Do you wear an insulin pump or diabetic monitor? No No new tattoos [place] documented in this encounter Plan of Treatment Upcoming Encounters Date Type Department Care Team (Late st Contact Info) Description 02/26/2023 2:30 PM EST Imaging Radiology [facility] [place] [address] [employer] [place] [address] 12/04/2023 11:40 AM EDT Office Visit NephMitzi garcia [address] [place] [address] [address] Rosy Patel MD [address] [place] [address] [address] Health Maintenance Due Date Last Done Comments [...] filedocumented as of this encounter Care Teams Senior Tech Manufacturing Engineering Relationship Specialty Start Date End Date Jody Arora MD [address] [place] [address] [place] [address] PCP - General Family Medicine 11/21/21 documented as of this encounter
--- OUTSIDE RECORDS SUMMARY | 2023-05-15 03:33 | External Medical Summary | Summary of Care ---
Author Name Unknown Organization [facility] Address [address] [place] [address] Phone [phone] Care Team Providers Care Fairground Operator Name Role Phone London Perales MD Primary Care Provide r Reason for Visit * Reason Comments Chronic Kidney Disease (CKD) Encounter Details Date Type Department Care Team (Late st Contact Info) Description 01/23/2023 10:40 AM EST Office Visit Nephrology, [place] [address] [facility] [place] [address] Rosy Patel MD [address] [place] [address] Kidney disease, chronic, stage IV (GFR 15-29 ml/min) (HCC)*; Left renal mass; Metabolic acidosis; HTN, goal below 130/80; Papillary renal cell carcinoma (HCC); Encounter for immunization Allergies No known active allergiesdocumented as of this encounter (statuses as of 02/04/2023) Medications Medication Sig Dispensed Refills Start Date End Date Status nitroglycerin (NITROSTAT) 0.4 MG SUBL 1 Tablet. 0 9 Active Ventolin HFA 108 (90 Base) MCG/ACT Inhalation Aerosol SolutionIndication s:COPD exacerbation (HCC) Inhale by mouth 2 Puffs every 4 hours as needed for Wheezing. 18 g 1 2 Active Fluticasone Propionate (Inhal) 50 MCG/BLIST Inhalation [...] the morning. 90 Tablet 3 3 Active Sodium Bicarbonate 650 MG Oral Tablet Take 1 Tablet by mouth in the morning and 1 Tablet before bedtime. 120 Tablet 11 3 Active Melatonin 10 MG Oral Capsule Take 1 Capsule by mouth at bedtime. 0 Active Tamsulosin HCl 0.4 MG Oral Capsule (Flomax)Indication s:BPH without obstruction/lower urinary tract symptoms Take 1 capsule by mouth in the morning 90 Capsule 1 3 Active Ipratropium-Albute rol 0.5-2.5 (3) MG/3ML Inhalation Solution (Duoneb)Indication s:Chronic hypoxemic respiratory failure (HCC),COPD, group C, by GOLD 2017 classification ([facility]) Inhale 3 mL via nebulizer every 4 hours as needed for Wheezing. 120 mL 1 3 Active hydrALAZINE HCl 25 MG Oral Tablet (Apresoline) Take 1 tablet by mouth twice daily 180 Tablet 2 3 Active Furosemide 40 MG Oral Tablet Take 1.5 Tablets by mouth in the morning. 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 DO NOT CHEW,CRUSH OR CUT 90 Capsule 3 3 Active predniSONE 20 MG Oral Tablet (Deltasone)Indicat ions:COPD exacerbation (HCC) Take 2 Tablets by mouth in the morning for 5 days. 10 Tablet 0 3 10/23/19 Discontinued(End of Procedure) Nystatin [id number] UNIT/GM External CreamIndications:S kin yeast infection Apply topically to affected area 2 times a day. To affacted area for two weeks. 30 g 0 3 01/25/20 Discontinued(Med ication/Dose Changed) NIFEdipine ER Osmotic Release 60 MG Oral Tablet Extended Release 24 Hour (Procardia XL) Take 1 Tablet by mouth in the morning and 1 Tablet before bedtime. 12/21/22 HOLD MEDICATION.. 180 Tablet 3 3 01/24/20 Discontinued(Ref ill) NIFEdipine ER Osmotic Release 60 MG Oral Tablet Extended Release 24 Hour (Procardia XL) Take 1 Tablet by mouth in the morning and 1 Tablet before bedtime. 0 3 02/02/20 Discontinued documented as of this encounter (statuses as of 02/04/2023) Active Problems Problem Noted Date Diagnosed Date [...] renal mass 07/11/2017 Overview: 2018 biopsy at [facility] per patient "kidney cancer". States he was advised he was not a surgical candidate. Carotid stenosis, right 07/11/2017 History of stroke 07/11/2017 Overview: TIA vs lacunar stroke diagnosed on head CT in [place] Apr 2017. Follow up MRI [facility] no infarct. Anxiety 07/11/2017 HTN, goal below 140/90 08/02/2015 Coronary artery disease Dyslipidemia, goal LDL below 100 documented as of this encounter (statuses as of 02/04/2023) Resolved Problems Problem Noted Date Diagnosed Date [...] as of this encounter (statuses as of 02/04/2023) Immunizations Name Administration Dates Next Due COVID-19 [...] Sign Reading Time Taken Comments Blood Pressure 158/60 01/23/2023 10:39 AM EST Pulse 73 01/23/2023 10:39 AM EST Temperature 35 C (95 F) 01/23/2023 10:39 AM EST Respiratory Rate 18 01/23/2023 10:39 AM EST Oxygen Saturation 93% 01/23/2023 10:39 AM EST Inhaled Oxygen Concentration - - Weight 82.8 kg (182 lb 9.6 oz) 01/23/2023 10:39 AM EST Height - - Body Mass Index 31.34 11/13/2022 9:14 AM EDT documented in this encounter Patient Instructions * Patient Instructions* Rosy Patel MD - 01/23/2023 11:28 AM EST -resume nifedipine -no change to other meds today -avoid medicines like aleve, advil, ibuprofen, aspirin more than 81 mg daily and other NSAIDS whichare not good for kidney patients. Take only tylenol (acetaminophen) up to 2000 mg daily as needed for pain or as directed by your primary care provider. -will let you know what labs show -will get Smita to work with you to complete hep B series and to get you connected w/ pharmacy -will work w/ Smita and Len Nunez and Ousmane to get you MRI documented in this encounter Progress Notes * Rosy Patel MD - 01/23/2023 10:36 AM EST NEPHROLOGY CLINIC NOTE Nephrology, [place] [address] [address] [facility] [address] 01/23/2023, 10:36 AM Patient Name: Justin Pinedo BACKGROUND: 82 year old male presents for close in f/u of progressive ckd 4 verging on CKD 5 and 1.5 grams of proteinuria from tobacco abuse, htn and advanced age; high ESRD risk. PMH includes severe lung dz, stroke w/ residual R leg weakness and R arm pain, renal cell carcinoma, CAD, monoclonal gammopathy follows w/ [facility]. History of late acute/subacute lacunar infarct of the right posterior temporal/occipital white matter -- picked up during 04/2017 HTN urgency admission. Hx HTN since 1998. Sees [facility] urologist in [place] annually >> for 2.6 cm left renal [...] no residual issues. Follows w/ Dr Olmstead [facility] cardiology. Pt withCAD > AR in 1998 and one stent in 1998 at [place]. Hx of smoking cigarettes/cigars until the . has marked RLS. Fell down steps 2021 but "saved the turkey." Falls often. Had extensive course of antifungals fall 2017 for mycotic pulmonary infection>>Admission summer 2017 [facility]NA RML, higher K -- in fall 2017, diagnosed with pulmonary fungal infection and started on itraconazole. Follows w/ [facility] pulm, last seen 02/2019. also follows with local engraver automatic Dr Jain. Since health events 2018 (stroke, PNA, pulmonary fungal infection), much poorer functional status>> prior to summer 2017 illness could do 9 holes golf w/o issue, could haddad/fish - limited by energy; not limited by breathing. 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 Huffs and puffs to walk 50 yards on flat and tired but could still talk; but breathing better than it had been earlier 2018 fall when he would have had to [...] and hypoxia. No nsaids. Follows home bp He is considering [facility] hemo at [place] versus [facility] at this point with possibility oftransitioning later to HHD. Continues to follow with CKD case worker. 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 Continues to work with mental health and addiction counseling on week days. TODAY 01/23/2023: not returning calls from [facility] re HBV series > s/p 3 attempts. Cx'd appt thru txtmssg w/ me then insisted be seen today. Ongoing challenges scheduling appropriate f/u >> see 12/28 TE. Saw urology by telehealth > plan is to get outside imaging and MRI. MRI was set up in [facility] for 01/21 but cx'd by pt. Found the rec room into clothes basket the other day >> fell w/o injury. Thinks he's retaining fluid > increased abd girth; leg swelling intermittent depends how much hesits; usually abd swelling persists ON and LE edema resolves/depednent. States leg cramps resolved w. Sleeping in recliner. Some congestion /sinus drainage, productive cough; also butt sore comes and goes, currently back again. along today, REVIEW OF SYSTEMS General: No fatigue, No [...] as needed for Wheezing. 18 g 1 Albuterol Sulfate (2.5 MG/3ML) 0.083% Inhalation Nebulization [...] Take 1 Capsule by mouth at bedtime. Tamsulosin HCl 0.4 MG Oral Capsule (Flomax) Take 1 capsule by mouth in the morning 90 Capsule 1 Ipratropium-Albuterol 0.5-2.5 (3) MG/3ML Inhalation Solution (Duoneb) [...] NOT CHEW,CRUSH OR CUT 90 Capsule 3 nitroglycerin (NITROSTAT) 0.4 MG SUBL 1 Tablet. Fluticasone Propionate (Inhal) 50 MCG/BLIST Inhalation Aerosol Powder Breath Activated Inhale 1 Puff by mouth in the morning and 1 Puff before bedtime. Clotrimazole-Betamethasone 1-0.05 % External Cream (Lotrisone) Apply topically to affected area 2 times a day for 28 days. To affected area for 4 weeks, or until healed. 45 g 1 Menthol-Zinc Oxide 0.44-20.6 % External Ointment (Calmoseptine) Apply to sore skin twice a day. 71 g 2 NIFEdipine ER 60 MG Oral Tablet Extended Release 24 Hour (Adalat CC) TAKE 1 TABLET BY MOUTH TWICE DAILY (MORNING AND BEFORE BEDTIME) 60 Tablet 11 No current facility-administered medications for this visit. Review of patient's allergies indicates: No Known Allergies PHYSICAL EXAMINATION: BP Readings from Last 6 Encounters: 01/24/23 134/70 01/23/23 158/60 11/30/22 124/59 11/13/22 124/68 11/01/22 116/62 10/17/22 146/70 Wt Readings from Last 6 Encounters: 01/24/23 82.6 kg (182 lb) 01/23/23 82.8 kg (182 lb 9.6 oz) 11/30/22 86.6 kg (191 lb) 11/13/22 75.8 kg (167 lb) 11/01/22 76.2 kg (168 lb) 08/08/22 76.2 kg (168 lb) Pulse Readings from Last 6 Encounters: 01/23/23 73 11/30/22 75 11/13/22 74 11/01/22 65 10/17/22 64 08/08/22 67 NAD, oriented x 3, ambulatory w/ cane Normocephalic, atraumatic, eomi nonicteric sclerae MMM Supple neck RRR w/o m/g/r; HS distant, no edema Diminished w/ insp rhonchi/wheezes NT abd, +BS, soft, no obvious fluid wave but + slight distension No cyanosis or clubbing; AVF + t/b No rash No tremor, focal or global weakness; fluent speech, ? Insight at times w/ scheduling; fair historian LABS: Recent Labs Units 01/23/23 1026 12/28/22 1334 12/24/22 0000 12/20/22 1227 11/30/22 1543 SODIUM - [facility] mmol/L 142 141 -- 140 142 POTASSIUM - [facility] mmol/L 5.1 4.9 -- 5.6* 5.3* POTASSIUM-OUTSIDE LAB MMOL/L -- -- 4.2 -- -- CHLORIDE - [facility] mmol/L 104 103 -- 105 108* CO2 - [facility] mmol/L 23 26 -- 22 20* EGFR-OUTSIDE LAB ML/MIN/1.73M2 -- -- 15* -- -- BUN - [facility] mg/dL 87* 60* -- 67* 68* CREATININE - [facility] mg/dL 4.8* 3.7* -- 3.8* 3.8* CREATININE-OUTSIDE LAB MG/DL -- -- 3.75* -- -- ESTIMATED GLOMERULAR FILTRATION RATE - [facility] mL/min 11* 16* -- 15* 15* Recent Labs Units 12/24/22 0000 11/30/22 1543 06/20/22 1213 06/05/22 0000 HGB - [facility] g/dL -- 9.3* 9.5* -- HEMOGLOBIN-OUTSIDE LAB 9.0* -- -- 9.3* TRANSFERRIN SATURATION PERCENT - [facility] % -- 25 -- -- Recent Labs Units 01/23/23 1026 12/28/22 1334 12/20/22 1227 11/30/22 1543 08/08/22 1236 07/12/22 1350 06/20/22 1213 04/18/22 1005 12/07/21 1115 07/19/21 1601 CALCIUM - [facility] mg/dL 8.7 8.5 8.7 8.2* < > 8.3* 8.5 8.7 < > 8.7 PHOSPHORUS - [facility] mg/dL -- -- -- 5.5* -- 4.8 4.9* 4.6 -- 4.7 25-HYDROXY VITAMIN D - [facility] ng/mL -- -- -- 25 -- 23 -- -- -- -- PTH - [facility] pg/mL -- -- -- 155* -- 206* -- -- -- 76* < > = values [...] 0-2 0-2 -- 0-2 ASSESSMENT AND PLAN: Kidney disease, chronic, stage IV (GFR 15-29 ml/min) (HCC) (Primary) Left renal mass Metabolic acidosis HTN, goal below 130/80 Papillary renal cell carcinoma (HCC) Encounter for immunization Follow Up: Return in about 3 months (around 04/25/2023) for clinic visit w/ MD. | For: clinic visit w/ MD | Check-out note: -pls f/u w/ PCP re sore spot on back side -MD only here or MV -needs NV in [place] if nto already done 1330 TODAY for HBV CKD 4 bordering on stage 5 w/ 1 gm proteinuria on July check. No uremic signs. -update labs today -no lizz/arb CKD to ESRD Status CKD Education: NO; follows actively [facility] CKD Cse Mgt Modality Education: 06/14/22 Ketty, post Options appt 05/07/22 Preferred Modality: ICHD and later to HHD , [place] [facility] versus [facility] Access Surgeon Referral: Dr Díaz Access Placed: June 2022, ready to use as of Nov 2022 Transplant Listing: not eligible L renal mass in setting of hx RCC >> urology and oncology notes reviewed >> ensure f/u imaging Metabolic acdiosis -cont sodium bicarb -await labs from today Continue work to get pt Hep B series > he agrees to it but has not responded to attempts to reach HTN not controlled today; states he's had his meds buthas not been taking nifedipine -cont coreg, lasix, hydralazine current doses -resume nifedipine 60 mg daily -recheck bp at multiple upcoming appts Notes reviewed for this visit -Dr Shankar Dec 2022 -Dr Romeo Dec 2022 Patient Instructions -resume nifedipine -no change to other meds today -avoid medicines like aleve, advil, ibuprofen, aspirin more than 81 mg daily and other NSAIDS whichare not good for kidney patients. Take only tylenol (acetaminophen) up to 2000 mg daily as needed for pain or as directed by your primary care provider. -will let you know what labs show -will get Smita to work with you to complete hep B series and to get you connected w/ pharmacy -will work w/ Smita and Len Nunez and Ousmane to get you MRI I spent a total of 40-54 minutes (exact time 42 mins) on the date of service in preparation, delivery, and documentation of the care provided to Justin Pinedo excluding any time spent in the performance of separately billed services. Rosy Patel MD Nephrology, [address] [address] CC: 4 Ref: [id number]] NO STREET ADDRESS AVAILABLE None (office) None (fax) PCP: LONDON PERALES [address] [place] [address] [place] [phone] This chart was completed in part utilizing [email or web address] Speech Voice Recognition Software. Randomword insertions, pronoun errors, and incomplete sentences are an occasional consequence of this system due to software limitations, and ambient noise. Any questions or concerns about the content, text, or information contained within the body of this dictation should be directly addressed to the provider for clarification. documented in this encounter Nursing Notes * Gabby Sosa RN - 01/23/2023 10:42 AM EST Follow up visit. Pt reports that he feels that he is retaining more fluid recently. States he notesit is more noticeable around his abdomen. documented in this encounter Plan of Treatment Upcoming Encounters Date Type Department Care Team (Late st Contact Info) Description 02/18/2023 9:00 AM EST Office Visit Pharmacy, [address] [place] [id number] [place] [address] 02/22/2023 10:00 AM EST Nurse Only Ancillary Perry Moran [address] [place] [address] [place], Nurse [address] [place] [address] 02/26/2023 2:30 PM EST Imaging Radiology [address], [place] [address] [place] [address] 03/05/2023 3:15 PM EST Telemedicine Urology Margie Donis [address] [place] [address] [place] [address] Cameron Romeo MD [address] [place] [address] [place] [address] 12/04/2023 11:40 AM EDT Office Visit Nephrology, [facility] [address] [facility] [place], [place] [address] Rosy Patel MD [address] [place], [place] [address] Health Maintenance Due Date Last Done Comments [...] Primary Chronic kidney disease, Stage IV (severe) Left renal mass Unspecified disorder of kidney and ureter Metabolic acidosis Acidosis HTN, goal below 130/80 Unspecified essential hypertension Papillary renal cell carcinoma (HCC) Encounter for immunization Need for other specified prophylactic vaccination against single bacterial disease documented in this encounter Care Teams Fairground Operator Relationship Specialty Start Date End Date London Perales MD [address] [place] [address] [place] [address] PCP - General Family Medicine 11/21/21 documented as of this encounter
--- OUTSIDE RECORDS SUMMARY | 2023-05-15 03:33 | External Medical Summary | Summary of Care ---
Author Name Unknown Organization [facility] Address [address] [place] [address] Phone [phone] Care Team Providers Care Oil Winterizer Name Role Phone Jody Arora MD Primary Care Provide r Reason for Visit * Reason Comments eRx-Medication Refill Encounter Details Date Type Department Care Team (Late st Contact Info) Description 02/28/2023 Refill Family Medicine [address] [place] [address] Jody Arora MD [address] [place] [address] [place] [address] BPH without obstruction/lower urinary tract symptoms Allergies No known active allergiesdocumented as of [...] group C, by GOLD 2017 classification ([facility]) Inhale 3 mL via nebulizer [...] the morning 90 Capsule 1 02/28/2023 Active Tamsulosin HCl 0.4 MG Oral Capsule [...] renal mass 07/11/2017 Overview: 2018 biopsy at [facility] per patient "kidney cancer". States he was advised he was not a surgical candidate. Carotid stenosis, right 07/11/2017 History of stroke 07/11/2017 Overview: TIA vs lacunar stroke diagnosed on head CT in [place] Apr 2017. Follow up MRI [facility] [...] encounter Miscellaneous Notes * Telephone Encounter - Ming Ward RPh - 02/28/2023 2:23 PM ESTSigned Prescriptions: Disp Refills Tamsulosin HCl 0.4 MG Oral Capsule (Flomax)90 Cap*1 Sig: Take 1capsule by mouth in the morningAuthorizing Provider: Brittani ARORA User: MING WARD documented in this encounter Plan of Treatment Upcoming Encounters Date Type Department Care Team (Late st Contact Info) Description 12/04/2023 11:40 AM EDT Office Visit Nephrology, [facility] [address] [place] [address] Rosy Patel MD [address] [facility] [address] Health Maintenance Due Date Last Done Comments [...] FOR COPD 01/24/2024 01/23/2023 Hgb 02/26/2024 02/25/2023, 10/11/2022, 11/30/2022, Additional history exists DTaP,Tdap,and Td Vaccines [...] as of this encounter Visit Diagnoses Diagnosis BPH without obstruction/lower urinary tract symptoms Hypertrophy of prostate without urinary obstruction and other lower urinary tract symptoms (LUTS) documented in this encounter Care Teams Oil Winterizer Relationship Specialty Start Date End Date Jody Arora MD [address] [place] [address] [place] [address] PCP - General Family Medicine 11/21/21 documented as of this encounter
--- OUTSIDE RECORDS SUMMARY | 2023-05-15 03:33 | External Medical Summary | Summary of Care ---
Author Name Unknown Organization [facility] Address [address] [place] [address] Phone [phone] Care Team Providers Care Kiln Charger Name Role Phone Jody Arora MD Primary Care Provide r Encounter Details Date Type Department Care Team (Late st Contact Info) Description 02/26/2023 Orders Only Family Medicine [address] [address] Jody Arora MD [address] [place] [address] [place] [address] Allergies No known active allergiesdocumented as of this encounter (statuses as of 02/26/2023) Medications Medication Sig Dispensed Refills Start Date [...] as of this encounter (statuses as of 02/26/2023) Active Problems Problem Noted Date Diagnosed Date [...] 07/11/2017 Overview: [address] [facility] per patient "kidney cancer". States he was advised he was not a surgical candidate. Carotid stenosis, right 07/11/2017 History of stroke 07/11/2017 Overview: TIA vs lacunar stroke diagnosed on head CT in [place] Apr 2017. Follow up MRI [facility] no infarct. Anxiety 07/11/2017 HTN, goal below 140/90 08/02/2015 Coronary artery disease Dyslipidemia, goal LDL below 100 documented as of this encounter (statuses as of 02/26/2023) Resolved Problems Problem Noted Date Diagnosed Date [...] as of this encounter (statuses as of 02/26/2023) Immunizations Name Administration Dates Next Due COVID-19 [...] Description 02/26/2023 2:30 PM EST Imaging Radiology [address] [facility] [place] [address] 12/04/2023 11:40 AM EDT Office Visit Nephrology, Mitzi [place] [address] [place] [address] Rosy Patel MD 200 [facility] [place] [address] Health Maintenance Due Date Last Done Comments [...] 06/17, 06/20/2022, Additional history exists Hgb 12/25/2023 02/25/2023, 1011/2022, 11/30/2022, Additional history exists Nephrology Referral 01/24/2024 01/23/2023 [...] Procedure Name Priority Date/Time Associated Diagnosis Comments CHEMISTRY-OUTSIDE Routine 02/25/2023 documented in this encounter Results * (ABNORMAL) CHEMISTRY-OUTSIDE (02/25/2023) Not all results display below - see scan for full detail OUTSIDE LAB (SEE SCANNED REPORT) Comment:SEE SCAN; [facility] CREATININE-OUTSID E LAB OUTSIDE LAB (SEE SCANNED REPORT) EGFR-OUTSIDE LAB OUT SIDE LAB (SEE SCANNED REPORT) POTASSIUM-OUTSIDE LAB OUTSIDE LAB (SEE SCANNED REPORT) GLUCOSE-OUTSIDE LAB OUTSIDE LAB (SEE SCANNED REPORT) HOURS FASTING OUTSID E LAB (SEE SCANNED REPORT) TRIGLYCERIDES-OUT SIDE LAB OUTSIDE LAB (SEE SCANNED REPORT) CHOLESTEROL-OUTSI DE LAB OUTSIDE LAB (SEE SCANNED REPORT) HDL-OUTSIDE LAB OUTS JULIA LAB (SEE SCANNED REPORT) CHOL/HDL RATIO-OUTSIDE LAB OUTSIDE LA B (SEE SCANNED REPORT) LDL (CALCULATED)-OUTS JULIA LAB OUTSIDE LAB (SEE SCANNED REPORT) LDL (DIRECT MEASURE)-OUTSIDE LAB OUTSIDE LAB (SEE SCANNED REPORT) HEMOGLOBIN, M1B-QAMPPHE LAB OUTSIDE LAB (SEE SCANNED REPORT) PHOSPHORUS-OUTSID E LAB OUTSIDE LAB (SEE SCANNED REPORT) PTH-OUTSIDE LAB OUTS JULIA LAB (SEE SCANNED REPORT) MICROALBUMIN RATIO-OUTSIDE LAB OUTSIDE LA B (SEE SCANNED REPORT) PROTEIN, UA-OUTSIDE LAB OUTSIDE LAB (SEE SCANNED REPORT) HEMOGLOBIN-OUTSID E LAB 9.0(A) 13.5 - 18 G/DL OUTSIDE LAB (SEE SCANNED REPORT) 02/25/2023 History Per Patient LABORATORY OUTSIDE LAB (SEE SCANNED REPORT) documented in this encounter Care Teams Kiln Charger Relationship Specialty Start Date End Date Jody Arora MD [address] [place] [address] [place] [phone] PCP - General Family Medicine 11/21/21 documented as of this encounter
--- OUTSIDE RECORDS SUMMARY | 2023-05-15 03:33 | External Medical Summary | Summary of Care ---
Author Name Unknown Organization [facility] Address [address] [place] [address] Phone [phone] Care Team Providers Care General Manager [employer] Name Role Phone Jody Arora MD Primary Care Provide r Reason for Visit * Reason Onset Date Comments Advice 02/25/[address]23 [facility] ter , Nurse Dr Shankar Med Request 02/25/2023 Encounter Details Date Type Department Care Team (Late st Contact Info) Description 02/25/2023 Telephone Family Medicine [address] [id number] Jody Arora MD [address] [place] [address] [place] [address] Advice ([facility] , Nurse Dr Shankar)... Allergies No known active allergiesdocumented as of this encounter (statuses as of 02/27/2023) Medications Medication Sig Dispensed Refills Start Date [...] C, by GOLD 2017 classification ([facility]) Inhale 3 mL via nebulizer [...] as of this encounter (statuses as of 02/27/2023) Active Problems Problem Noted Date Diagnosed Date [...] mass 07/11/2017 Overview: 2018 biopsy at [facility] per patient "kidney cancer". States he was advised he was not a surgical candidate. Carotid stenosis, right 07/11/2017 History of stroke 07/11/2017 Overview: TIA vs lacunar stroke diagnosed on head CT in [place] Apr 2017. Follow up MRI [facility] no infarct. Anxiety 07/11/2017 HTN, goal below 140/90 08/02/2015 Coronary artery disease Dyslipidemia, goal LDL below 100 documented as of this encounter (statuses as of 02/27/2023) Resolved Problems Problem Noted Date Diagnosed Date [...] as of this encounter (statuses as of 02/27/2023) Immunizations Name Administration Dates Next Due COVID-19 [...] - 02/25/2023 12:49 PM EST Shelly from [facility] , Nurse Dr Shankar nurse called to report that Pt was [facility] and asked that they assess his buttocks for new lesions that he has Nurse says she thinks he has been prescribed meds in past by PCP They just wanted PCP to be made aware as the cancer provider does not do anything for lesions and directed PCP to reach out to Pt to advise Any questions call Shelly at [phone] documented in this encounter Plan of Treatment Upcoming Encounters Date Type Department Care Team (Late st Contact Info) Description 12/04/2023 11:40 AM EDT Office Visit Nephrology, Mitzi Barajas [address] [place] [address] Rosy Patel MD [address] [place] [address] Health Maintenance Due Date Last Done Comments [...] filedocumented as of this encounter Care Teams General Manager [employer] Relationship Specialty Start Date End Date Jody Arora MD [address] [place] [address] [place] [phone] PCP - General Family Medicine 11/21/21 documented as of this encounter
--- OUTSIDE RECORDS SUMMARY | 2023-05-15 03:33 | External Medical Summary | Summary of Care ---
Author Name Unknown Organization [facility] Address [address] [place] [address] Phone [phone] Care Team Providers Care Director Of Marketing Analytics Name Role Phone Jody Arora MD Primary Care Provide r Reason for Visit * Reason Onset Date Comments Advice 02/25/[address] [facility] [address] , Nurse Dr Shankar Med Request 02/25/2023 Encounter Details Date Type Department Care Team (Late st Contact Info) Description 02/25/2023 Telephone Family Medicine [address] [phone] Jody Arora MD [address] [place] [address] [place] [address] Advice ([facility] , Nurse Dr Shankar)... Allergies No known [...] group C, by GOLD 2017 classification ([facility]) Inhale 3 mL via nebulizer every 4 [...] renal mass 07/11/2017 Overview: 2018 biopsy at [facility] [place], operated by [facility] per patient "kidney cancer". States he was advised he was not a surgical candidate. Carotid stenosis, right 07/11/2017 History of stroke 07/11/2017 Overview: TIA vs lacunar stroke diagnosed on head CT in [place] Apr 2017. Follow up MRI [facility] no infarct. Anxiety 07/11/2017 HTN, goal [...] encounter Miscellaneous Notes * Telephone Encounter - Rea Bosch LPN [...] - 02/25/2023 12:49 PM EST Shelly from [facility] , Nurse Dr Shankar nurse called to report that Pt was there at appt for labs and asked that they assess his buttocks for new lesions that he has Nurse says she thinks he has been prescribed meds in past by PCP They just wanted PCP to be made aware as the cancer provider does not do anything for lesions and directed PCP to reach out to Pt to advise Any questions call Shelly at [phone] documented in this encounter Plan of Treatment Upcoming Encounters Date Type Department Care Team (Late st Contact Info) Description 12/04/2023 11:40 AM EDT Office Visit Nephrology, Mitzi Barajas [address] [facility] [place] [address] Rosy Patel MD [address] [facility] [place] [address] Health Maintenance Due Date Last Done Comments [...] FOR COPD 01/24/2024 01/23/2023 Hgb 02/26/2024 02/25/2023, 1011/2022, 11/30/2022, Additional history exists DTaP,Tdap,and Td Vaccines [...] filedocumented as of this encounter Care Teams Director Of Marketing Analytics Relationship Specialty Start Date End Date Jody Arora MD [address] [place] [address] [place] [phone] PCP - General Family Medicine 11/21/21 documented as of this encounter
--- OUTSIDE RECORDS SUMMARY | 2023-05-15 03:34 | External Medical Summary | Summary of Care ---
Author Name Unknown Organization [facility] Address [address] [place] [facility] [place] [address] Phone [phone] Care Team Providers Care Tooth Inspector Name Role Phone Jody Arora MD Primary Care Provide r Reason for Referral * Evaluate & Treat - Unlimited Visits (Within 10 days (routine)) - Authorized Specialty Diagnoses / Procedures Referred By Contac t Referred To Contact Pharmacist / Pharmacy Diagnoses Kidney disease, chronic, stage IV (GFR 15-29 ml/min) (HCC) Benign hypertension with chronic kidney disease, stage IV (HCC) Trace Calhoun MD [address] [place] [address] [place] [id number] Referral ID Status Reason Start Date Expiration Date Visits Requested Visits Authorized [id number] Authorized Specialty Services Required 01/23/2023 99 99 Question Answer Referral Priority Within 10 days (routine) Where should this appointment be scheduled? [facility] Department: Primary Care Reason for Referral: HTN Goal BP: < 130/80 Comments Pharmacist Medication Therapy Management: Minimum frequency patient should be seen in person for medication management: as appropriate per clinical condition and patient status By my signature, I understand that my patient Justin Pinedo will have his medication therapy managed by the [facility] Medication Therapy Disease Management [facility] ([facility]) per established policies, procedures, and protocols. I also certify that this referral may serve as an initiation of service for the management of drug therapy in the above noted patient. [facility] providers will be responsible for scheduling patient visits, obtaining appropriate laboratory studies, and adjusting medication management therapy per patient's need, in addition to those roles spelled out in the clinic policy, procedures, and drug management protocols. I understand that the service provided by the [facility] Clinic is voluntary and have informed patient that they can refuse the service at their discretion. I am aware that the [facility] Clinic will provide me with a copy of the patient encounter via [facility]. I authorize the [facility] Clinic to carry out these activities on my behalf. I consider this program to be a necessary part of the patient's medical care. Trace Calhoun MD Encounter Details Date Type Department Care Team (Late st Contact Info) Description 01/23/2023 Telephone Nephrology, Mitzi Barajas [address] [facility] [place] [address] Rosy Patel MD [address] [facility] [place] [address] Allergies No known active allergiesdocumented as of this encounter (statuses as of 01/25/2023) Medications Medication Sig Dispensed Refills Start Date [...] OR CUT 90 Capsule 3 01/22/2023 Active NIFEdipine ER Osmotic Release 60 MG Oral Tablet Extended Release 24 Hour (Procardia XL) Take 1 Tablet by mouth in the morning and 1 Tablet before bedtime. 0 01/23/2023 Active documented as of this encounter (statuses as of 01/25/2023) Active Problems Problem Noted Date Diagnosed Date [...] Overview: 2018 biopsy at [facility] per patient "kidney cancer". States he was advised he was not a surgical candidate. Carotid stenosis, right 07/11/2017 History of stroke 07/11/2017 Overview: TIA vs lacunar stroke diagnosed on head CT in [place] Apr 2017. Follow up MRI [facility] no infarct. Anxiety 07/11/2017 HTN, goal below 140/90 08/02/2015 Coronary artery disease Dyslipidemia, goal LDL below 100 documented as of this encounter (statuses as of 01/25/2023) Resolved Problems Problem Noted Date Diagnosed Date [...] as of this encounter (statuses as of 01/25/2023) Immunizations Name Administration Dates Next Due COVID-19 [...] Answer Date Recorded PHQ-2 Score 0 02/29/2020 Sex and Gender Information Value Date Recorded Sex Assigned at Not on file Gender Identity Not on file Sexual Orientation Not on file Job Start Date Occupation Industry Not on file Not on file Not on file documented as of this encounter Miscellaneous Notes * Telephone Encounter - Ruma Fraser [facility] - 01/25/2023 9:53 AM EST Patient received first Hep B injection on 01/23 at [facility]. Scheduled to receive second injection on 02/22. Called and spoke to patient. Introduced myself as Rph and role of MTM in HTN management. Agreeable to come in for initial visit on 02/18. Patient reports not currently monitoring BP at home, instructed to start and to bring BP log into visit. Patient expressed understanding and was agreeable. Ruma Fraser [facility], PharmD Clinical Pharmacist - Cassandra [facility] 01/25/2023, 10:00 AM [phone] * Telephone Encounter - Rosy Patel MD - 01/23/2023 11:19 AM EST Pt needs to follow w/ MTM for -HBV series -HTN mgt Pt requests follow up by cell # > ends [phone] Smita can you pls coordinate w/ pt to get him in to MTM on above Dr Arora asked if HBV series could be scheduled at his clinic > we are trying to get NV for today at [facility] if they have HBV vaccine on hand; if not, will need to schedule MTM > pls see my note today re HTN documented in this encounter Plan of Treatment Upcoming Encounters Date Type Department Care Team (Late st Contact Info) Description 01/28/2023 4:15 PM EST Pharmacy Pharmacy, [place] [address] [place] [address] Clinic, [place] [address] [place] [address] 02/18/2023 9:00 AM EST Office Visit Pharmacy, [address] [place] [phone] [place] [address] 02/22/2023 10:00 AM EST Nurse Only Ancillary [facility] [address] [place] [address] [place], Nurse [address] [place] [address] 02/26/2023 2:30 PM EST Imaging Radiology [address], [place] [address] [place] [address] 03/05/2023 3:15 PM EST Telemedicine Urology Margie Donis [address] [place] [address] [place] [address] Cameron Romeo MD [address] [place] [address] [place] [address] 12/04/2023 11:40 AM EDT Office Visit Nephrology, Mitzi [place] 200 [facility] [place], [place] [address] Rosy Patel MD [address] [place], [place] [address] Scheduled Referrals Name Type Priority Associated Diagnoses Orde r Schedule PHARMACIST MEDS THERAPY MGMT REFERRAL OP Referral Within 10 days (routine) Kidney disease, chronic, stage IV (GFR 15-29 ml/min) (HCC) Benign hypertension with chronic kidney disease, stage IV (HCC) Ordered: 01/23/2023 Health Maintenance Due Date Last Done Comments [...] 10/24/2018 Pneumococcal Vaccine: 65+ Years Completed 01/16/2018, 02/09/2015 Zoster Vaccines Completed 12/11/2019, 10/09/2019 [...] Primary Chronic kidney disease, Stage IV (severe) Benign hypertension with chronic kidney disease, 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
--- OUTSIDE RECORDS SUMMARY | 2023-05-15 03:34 | External Medical Summary | Summary of Care ---
Author Name Unknown Organization [facility] Address [address] [place] [address] Phone [phone] Care Team Providers Care Superintendent Plant Name Role Phone Jody Arora MD Primary Care Provide r Reason for Visit * Reason Onset Date Comments Anemia Follow-Up 01/30/2023 Encounter Details Date Type Department Care Team (Late st Contact Info) Description 01/30/2023 4:15 PM [facility] Pharmacy Pharmacy, [place] [address] [place] [address] [facility] [address] [place] [address] Need for hepatitis B vaccination* Allergies No known active allergiesdocumented as of this encounter (statuses as of 01/30/2023) Medications Medication Sig Dispensed Refills Start Date [...] (HCC),COPD, group C, by GOLD 2017 classification ([facility]) Inhale 3 mL via nebulizer [...] 1 Tablet before bedtime. 0 01/23/2023 Active Clotrimazole-Betameth asone 1-0.05 % External Cream (Lotrisone)Indication s:Tinea cruris Apply topically to affected area 2 times a day for 28 days. To affected area for 4 weeks, or until healed. 45 g 1 01/24/2023 02/21/2023 Active Menthol-Zinc Oxide 0.44-20.6 % External Ointment (Calmoseptine)Indicat ions:Tinea cruris Apply to sore skin twice a day. 71 g 2 01/24/2023 Active documented as of this encounter (statuses as of 01/30/2023) Active Problems Problem Noted Date Diagnosed Date [...] lacunar stroke diagnosed on head CT in [place] Apr 2017. Follow up MRI [facility] no infarct. Anxiety 07/11/2017 HTN, goal below 140/90 08/02/2015 Coronary artery disease Dyslipidemia, goal LDL below 100 documented as of this encounter (statuses as of 01/30/2023) Resolved Problems Problem Noted Date Diagnosed Date [...] as of this encounter (statuses as of 01/30/2023) Immunizations Name Administration Dates Next Due COVID-19 [...] as of this encounter Progress Notes * Marii Narayanan RPh - 01/30/2023 12:45 PM EST Multiple attempts to contact patient regarding referral for hepatitis B vaccine management. No return call at this time. The [facility] will sign off and defer management to the referring provider. Thank you for allowing us to participate in the care of this patient. Marii Narayanan, PharmD, [facility] Clinical Pharmacist 01/30/2023 12:45 PM documented in this encounter Plan of Treatment Upcoming Encounters Date Type Department Care Team (Late st Contact Info) Description 02/18/2023 9:00 AM EST Office Visit Pharmacy, [address] [place] [address] [place] [address] 02/22/2023 10:00 AM EST Nurse Only Ancillary [address] [place] [address] [place], Nurse [address] [place] [address] 02/26/2023 2:30 PM EST Imaging Radiology [facility] [address] [facility] [place] [address] [place] [address] 03/05/2023 3:15 PM EST Telemedicine Urology Sarita MontgomeryMargie [address] [place] [address] [place] [address] Cameron Romeo MD [address] [place] [address] [place] [address] 12/04/2023 11:40 AM EDT Office Visit Nephrology, Mitzi Barajas [address] [place] [address] Rosy Patel MD [address] [place] [address] Health Maintenance Due Date Last Done Comments [...] as of this encounter Visit Diagnoses Diagnosis Need for hepatitis B vaccination- Primary Need for prophylactic vaccination and inoculation against viral hepatitis documented in this encounter Care Teams Superintendent Plant Relationship Specialty Start Date End Date Jody Arora MD [address] [place] [address] [place] [address] PCP - General Family Medicine 11/21/21 documented as of this encounter
--- OUTSIDE RECORDS SUMMARY | 2023-05-15 03:34 | External Medical Summary | Summary of Care ---
Author Name Unknown Organization [facility] Address [address] [place] [address] Phone [phone] Care Team Providers Care Quality Controller Name Role Phone Jody Arora MD Primary Care Provide r Reason for Visit * Reason Comments eRx-Medication Refill Encounter Details Date Type Department Care Team (Late st Contact Info) Description 01/31/2023 Refill NephrologyMitzi [place] 200 [facility] [place] [address] Joel Melvin MD [address] [place] [address] Allergies No known active allergiesdocumented as of this encounter (statuses as of 02/01/2023) Medications Medication Sig Dispensed Refills Start Date [...] the morning 90 Capsule 1 08/23/2022 Active Ipratropium-Albuter ol 0.5-2.5 (3) MG/3ML Inhalation [...] OR CUT 90 Capsule 3 01/22/2023 Active Clotrimazole-Betame thasone 1-0.05 % External Cream (Lotrisone)Indicati ons:Tinea cruris Apply topically to affected area 2 times a day for 28 days. To affected area for 4 weeks, or until healed. 45 g 1 01/24/2023 02/22/20 23 Active Menthol-Zinc Oxide 0.44-20.6 % External Ointment (Calmoseptine)Indic ations:Tinea cruris Apply to sore skin twice a day. 71 g 2 01/24/2023 Active NIFEdipine ER 60 MG Oral Tablet Extended Release 24 Hour (Adalat CC) TAKE 1 TABLET BY MOUTH TWICE DAILY (MORNING AND BEFORE BEDTIME) 60 Tablet 11 02/01/2023 Active NIFEdipine ER Osmotic Release 60 MG Oral Tablet Extended Release 24 Hour (Procardia XL) Take 1 Tablet by mouth in the morning and 1 Tablet before bedtime. 0 01/23/2023 02/02/20 23 Discontinued documented as of this encounter (statuses as of 02/01/2023) Active Problems Problem Noted Date Diagnosed Date [...] 07/11/2017 Overview: 2018 biopsy at [facility] per patient "kidney cancer". States he was advised he was not a surgical candidate. Carotid stenosis, right 07/11/2017 History of stroke 07/11/2017 Overview: TIA vs lacunar stroke diagnosed on head CT in [place] Apr 2017. Follow up MRI [facility] no infarct. Anxiety 07/11/2017 HTN, goal below 140/90 08/02/2015 Coronary artery disease Dyslipidemia, goal LDL below 100 documented as of this encounter (statuses as of 02/01/2023) Resolved Problems Problem Noted Date Diagnosed Date [...] as of this encounter (statuses as of 02/01/2023) Immunizations Name Administration Dates Next Due COVID-19 [...] Telephone Encounter - Joel Melvin MD - 02/01/2023 12:52 PM ESTSigned Prescriptions: Disp Refills NIFEdipine ER 60 MG Oral Tablet Extended R*60 Tab*11 Sig: TAKE 1 TABLET BY MOUTH TWICE DAILY (MORNING AND BEFORE BEDTIME) Authorizing Provider: JOEL MELVIN * Telephone Encounter - Gabby Sosa RN - 01/31/2023 1:25 PM ESTPending Prescriptions: Disp Refills NIFEdipine ER 60 MG Oral Tablet Extended R*60 Tab*11 Sig: TAKE 1 TABLET BY MOUTH TWICE DAILY (MORNING AND BEFORE BEDTIME) * Telephone Encounter - Gabby Sosa RN - 01/31/2023 1:23 PM EST Prescription request received from pharmacy pending. Please authorize. Last OV-01/23/23 Next OV 12/04/23 documented in this encounter Plan of Treatment Upcoming Encounters Date Type Department Care Team (Late st Contact Info) Description 02/18/2023 9:00 AM EST Office Visit Pharmacy, [address] [place] [address] [place] [address] 02/22/2023 10:00 AM EST Nurse Only Ancillary [address] [place] [address] Nurse [place] [address] [place] [address] 02/26/2023 2:30 PM EST Imaging Radiology [facility] [facility] [address] [place] [address] 03/05/2023 3:15 PM EST Telemedicine Urology Margie Donis [address] [place] [address] [place] [address] Cameron Romeo MD [address] [place] [address] [place] [address] 12/04/2023 11:40 AM EDT Office Visit Nephrology, Mitzi Barajas [address] [facility] [place] [address] Joel Melvin MD [address] [facility] [place] [address] Health Maintenance Due Date Last Done Comments [...] filedocumented as of this encounter Care Teams Quality Controller Relationship Specialty Start Date End Date Jody Arora MD [address] [place] [address] [place] [address] PCP - General Family Medicine 11/21/21 documented as of this encounter
--- OUTSIDE RECORDS SUMMARY | 2023-05-15 03:34 | External Medical Summary | Summary of Care ---
Author Name Unknown Organization [facility] Address [address] [place] [address] Phone [phone] Care Team Providers Care Track Car Operator Name Role Phone Jody Arora MD Primary Care Provide r Reason for Visit * Reason Comments eRx-Medication Refill Encounter Details Date Type Department Care Team (Late st Contact Info) Description 01/21/2023 Refill Family Medicine [address] [place] [address] Joyd Arora MD [address] [place] [address] [place] [address] Adjustment disorder with mixed disturbance of emotions and conduct Allergies No known active allergiesdocumented as of this encounter (statuses as of 01/22/2023) Medications Medication Sig Dispensed Refills Start Date End Date Status nitroglycerin (NITROSTAT) 0.4 MG SUBL 1 Tablet. 0 9 Active Ventolin HFA 108 (90 Base) MCG/ACT Inhalation Aerosol SolutionIndications :COPD exacerbation (HCC) Inhale by mouth 2 Puffs every 4 hours as needed for Wheezing. 18 g 1 2 Active Additional Information Patient not taking.Reported on 12/11/2022 Fluticasone Propionate (Inhal) 50 MCG/BLIST Inhalation Aerosol [...] Active Additional Information Patient not taking.Reported on 12/11/2022 Rosuvastatin Calcium 40 MG Oral Tablet (Crestor) [...] the morning 90 Capsule 1 3 Active Ipratropium-Albuter ol 0.5-2.5 (3) MG/3ML Inhalation Solution (Duoneb)Indications :Chronic hypoxemic respiratory failure (HCC),COPD, group C, by GOLD 2017 classification (HCC) Inhale 3 mL via nebulizer every 4 hours as needed for Wheezing. 120 mL 1 3 Active Additional Information Patient not taking.Reported on 12/11/2022 hydrALAZINE HCl 25 MG Oral Tablet (Apresoline) Take 1 tablet by mouth twice daily 180 Tablet 2 3 Active Nystatin 650848 UNIT/GM External CreamIndications:Sk in yeast infection Apply topically to affected area 2 times a day. To affacted area for two weeks. 30 g 0 3 Active Additional Information Patient not taking.Reported on 12/11/2022 Furosemide 40 MG Oral Tablet Take 1.5 Tablets by mouth in the morning. 30 Tablet 11 3 Active NIFEdipine ER Osmotic Release 60 MG Oral Tablet Extended Release 24 Hour (Procardia XL) Take 1 Tablet by mouth in the morning and 1 Tablet before bedtime. 12/21/22 HOLD MEDICATION.. 180 Tablet 3 3 Active hydrOXYzine HCl 50 MG Oral [...] OR CUT 90 Capsule 3 3 Active Venlafaxine HCl ER 37.5 MG Oral Capsule Extended Release 24 Hour (Effexor XR)Indications:Adju stment disorder with mixed disturbance of emotions and conduct TAKE 1 CAPSULE BY MOUTH ONCE DAILY . DO NOT CHEW,CRUSH OR CUT 90 Capsule 1 3 01/23/20 23 Discontinued documented as of this encounter (statuses as of 01/22/2023) Active Problems Problem Noted Date Diagnosed Date [...] Overview: 2018 biopsy at [facility] per patient "kidney cancer". States he was advised he was not a surgical candidate. Carotid stenosis, right 07/11/2017 History of stroke 07/11/2017 Overview: TIA vs lacunar stroke diagnosed on head CT in [place] Apr 2017. Follow up MRI [facility] no infarct. Anxiety 07/11/2017 HTN, goal below 140/90 08/02/2015 Coronary artery disease Dyslipidemia, goal LDL below 100 documented as of this encounter (statuses as of 01/22/2023) Resolved Problems Problem Noted Date Diagnosed Date [...] as of this encounter (statuses as of 01/22/2023) Immunizations Name Administration Dates Next Due COVID-19 mRNA, LNP-s, No Pre serve, 2-Dose Series (Moderna) 01/10/2021,05/24/2020,04/26/2020 COVID-19, MRNA-LNP, 23-24, P F, 50 MCG/0.5 mL, 12 YRS AND ABOVE, IM (MODERNA-Spikevax) 01/03/2023 Hepatitis B, 20+ yrs 01/08/2018 Pneumococcal Conjugate Vacc, 13 Valent (Prevnar) 01/16/2018 Pneumococcal Polysaccharide PPV23 (Pneumovax) 02/09/2015 Rsv Vac., Recomb, Adjuvant, Pf,0.5 Ml (Arexvy) 01/03/2023 SEASONAL INFLUENZA, PF, 6 M & Above, IM , (FLULAVAL or FLUZONE) 12/05/2020,12/22/2018,12/16/2016 Seasonal Influenza Virus Vac cine, Unspecified Formulation 12/16/2018 Seasonal Influenza, Quadriva lent Hd (Fluzone Hd) 12/07/2021 Seasonal Influenza, Quadriva lent Hd, 65+ Yrs [...] encounter Miscellaneous Notes * Telephone Encounter - Rashawn Lennon RPh - 01/22/2023 2:59 PM ESTSigned Prescriptions: Disp Refills Venlafaxine HCl ER 37.5 MG Oral Capsule Ex*90 Cap*3 Sig: TAKE 1 CAPSULE BY MOUTH ONCE DAILY . DO NOT CHEW,CRUSH OR CUTAuthorizing Provider: Brittani ARORA User: RASHAWN LENNON documented in this encounter Plan of Treatment Upcoming Encounters Date Type Department Care Team (Late st Contact Info) Description 01/28/2023 4:15 PM EST Pharmacy Pharmacy, [address] [address] Clinic, Anemia [address] [place] [address] Health Maintenance Due Date Last Done Comments Alpha-1 Antitrypsin 1958 Hepatitis B (2 of 3 - 19+ 3-dose series) 02/05/2018 01/08/2018 *COPD SEVERITY VERIFIED BY PFT 07/16/2020 Depression Screening 02/28/2021 02/29/2020 Influenza Vaccine (FLU shot) (#1) 2022 12/07/2021, 12/05/2020, 12/18/2019, Additional history exists GFR 06/29/2023 12/28/2022, 11/2022, 12/20/2022, Additional history exists Albumin/Creatinine Ratio 08/09/2023 023, 12/07/2021, 08/10/2021, Additional history exists Nephrology Referral 12/01/2023 11/30/2022 O2 ASSESSMENT COMPLETED IN PAST YEAR FOR COPD 12/01/2023 11/30/2022 PTH 12/01/2023 11/30/2022, 06/17, 07/19/2021, Additional history exists Phosphate 12/01/2023 11/30/2022, 06/17, 06/20/2022, Additional history exists Hgb 12/25/2023 12/24/2022, 11/16, 06/20/2022, Additional history exists DTaP,Tdap,and Td Vaccines (2 - Td or Tdap) 10/24/2028 10/24/2018 Pneumococcal Vaccine: 65+ Years Completed 01/16/2018, 02/09/2015 Zoster Vaccines Completed 12/11/2019, 10/09/2019 COVID-19 Vaccine Completed 01/03/2023, , 05/24/2020, Additional history exists GARDASIL-HPV IMMUNIZATION SERIES Aged Out No longer eligible based on patient's age to complete this topic MENINGOCOCCAL (MENACTRA/MENVEO) Aged Out No longer eligible based on patient's age to complete this topic documented as of this encounter Medical Devices Not on filedocumented as of this encounter Visit Diagnoses Diagnosis Adjustment disorder with mixed disturbance of emotions and conduct documented in this encounter Care Teams Track Car Operator Relationship Specialty Start Date End Date Jody Arora MD [address] [place] [address] [place] [phone] PCP - General Family Medicine 11/21/21 documented as of this encounter
--- OUTSIDE RECORDS SUMMARY | 2023-05-15 03:34 | External Medical Summary ---
Author Name Unknown Address Unknown Organization K09[facility] [place] [address] Laboratory Report Ordering Provider Test Date Status SHAHZAD BARRIENTOS 01/23/2023 10:26:54 Final Observation Date Value Abnormality Reference (Units ) Status BUN 01/23/2023 10:26:54 87 Above high normal 6-20 (mg/dL) Final Creatinine 01/23/2023 10:26:54 4.8 Above high normal 0.6-1.2 (mg/dL) Final Glomerular filtration rate/1.73 sq M.predicted [Volume Rate/Area] in Serum, Plasma or Blood by Creatinine-based formula (CKD-EPI) 01/23/2023 10:26:54 11 Below low normal >=60 (mL/min) Final eGFR is calculated based on the CKD-EPI 2020 equation SODIUM 01/23/2023 10:26:54 142 135-146 (m mol/L) Final Potassium 01/23/2023 10:26:54 5.1 3.5-5.1 (m mol/L) Final Cl 01/23/2023 10:26:54 104 98-107 (mm ol/L) Final CO2 01/23/2023 10:26:54 23 22-32 (mmo l/L) Final Anion gap 01/23/2023 10:26:54 15 7-15 (mmol /L) Final Glucose 01/23/2023 10:26:54 103 70-120 (mg /dL) Final Calcium 01/23/2023 10:26:54 8.7 8.4-10.2 ( mg/dL) Final Performing Location [facility] [place] [address]
--- OUTSIDE RECORDS SUMMARY | 2023-05-15 03:34 | External Medical Summary | Summary of Care ---
Author Name Unknown Organization [facility] Address [address] [place] [address] Phone [phone] Care Team Providers Care Electrical Journeyman Name Role Phone Jody Arora MD Primary Care Provide r Reason for Visit * Reason Onset Date Comments Anemia Follow-Up 01/30/2023 Encounter Details Date Type Department Care Team (Late st Contact Info) Description 01/30/2023 4:15 PM [facility] Pharmacy Pharmacy, [place] [address] [place] [address] [facility] [address] [place] [address] Need for hepatitis B vaccination* [...] (HCC),COPD, group C, by GOLD 2017 classification ([facility]) Inhale 3 mL via nebulizer [...] renal mass 07/11/2017 Overview: 2018 biopsy at [facility] [place] per patient "kidney cancer". States he was advised he was not a surgical candidate. Carotid stenosis, right 07/11/2017 History of stroke 07/11/2017 Overview: TIA vs lacunar stroke diagnosed on head CT in [place] Apr 2017. Follow up MRI [facility] no infarct. Anxiety 07/11/2017 HTN, [...] care of this patient. Marii Narayanan, PharmD, [facility] Clinical Pharmacist 01/30/2023 12:45 PM documented in this encounter Plan of Treatment Upcoming Encounters Date Type Department Care Team (Late st Contact Info) Description 02/18/2023 9:00 AM EST Office Visit Pharmacy, [address] [place] [phone] [place] [address] 02/22/2023 10:00 AM EST Nurse Only Ancillary [address] [place] [address] [place], Nurse [address] [place] [address] 02/26/2023 2:30 PM EST Imaging Radiology [facility] [place] [address] [place] [address] 03/05/2023 3:15 PM EST Telemedicine Urology Sarita MontgomeryMargie [address] [place] [address] [place] [address] Cameron Romeo MD [address] [place] [address] [place] [address] 12/04/2023 11:40 AM EDT Office Visit Nephrology, Mitzi Barajas [address] [place] [address] Rosy Patel MD [address] [place] [address] Health Maintenance Due Date Last Done Comments [...] hepatitis documented in this encounter Care Teams Electrical Journeyman Relationship Specialty Start Date End Date Jody Arora MD [address] [place] [address] [place] [address] PCP - General Family Medicine 11/21/21 documented as of this encounter
--- OUTSIDE RECORDS SUMMARY | 2023-05-15 03:34 | External Medical Summary | Summary of Care ---
Author Name Unknown Organization [facility] Address [address] [place] [address] Phone [phone] Care Team Providers Care Salesperson Floor Coverings Name Role Phone Jody Arora MD Primary Care Provide r Reason for Visit * Reason Onset Date Comments Medication Administration 01/23/2023 Flu an d/or Pneumo Inj Encounter Details Date Type Department Care Team (Late st Contact Info) Description 01/23/2023 2:00 PM EST Nurse Only Ancillary [address] [place] [phone] [place], Nurse [address] [place] [address] Medication Administration (Flu and/or Pneu... Allergies No known active allergiesdocumented as of this encounter (statuses as of 01/23/2023) Medications Medication Sig Dispensed Refills Start Date [...] group C, by GOLD 2017 classification ([facility]) Inhale 3 mL via nebulizer every 4 hours as needed for Wheezing. 120 mL 1 10/17/2022 Active hydrALAZINE HCl 25 MG Oral Tablet (Apresoline) Take 1 tablet by mouth twice daily 180 Tablet 2 11/06/2022 Active Nystatin 685762 UNIT/GM External CreamIndications:Skin yeast infection Apply topically to affected area 2 times a day. To affacted area for two weeks. 30 g 0 11/13/2022 Active Furosemide 40 MG Oral Tablet Take [...] as of this encounter (statuses as of 01/23/2023) Active Problems Problem Noted Date Diagnosed Date [...] lacunar stroke diagnosed on head CT in [place] Apr 2017. Follow up MRI [facility] no infarct. Anxiety 07/11/2017 HTN, goal below 140/90 08/02/2015 Coronary artery disease Dyslipidemia, goal LDL below 100 documented as of this encounter (statuses as of 01/23/2023) Resolved Problems Problem Noted Date Diagnosed Date [...] as of this encounter (statuses as of 01/23/2023) Immunizations Name Administration Dates Next Due COVID-19 [...] as of this encounter Progress Notes * Christelle Shirley RN - 01/23/2023 1:39 PM EST PRE - ADMINISTRATION DOCUMENTATION Are you experiencing any cold symptoms or fever? No Have you had Guillain-Winfall Syndrome (an illness that causes paralysis) within the last 6 weeks? No Have you had the flu shot in the past? YES Have you ever had a reaction to the flu shot? No Christelle Shirley RN, 01/23/2023 1:39 PM Immunization Administration Documentation Time Out Procedure Performed: Yes Patient Identified (Ask Name/Date of ): Yes Does the patient have a fever greater than 101 degrees today? No Patient allergic to latex? No VFC Stock: No Immunization(s) verified: Yes, Immunization Name: Flu, VIS Sheet(s) given: Yes Verified Side and Site: Yes Verified Shot(s) with Parent(s)/Patient: Yes documented in this encounter Plan of Treatment Upcoming Encounters Date Type Department Care Team (Late st Contact Info) Description 01/24/2023 11:00 AM EST Office Visit Family Medicine [address] [place] [phone] Trace Calhoun MD [address] [place] [address] [place] [address] 01/28/2023 4:15 PM EST Pharmacy Pharm[address] [address] Clinic, Anemia [address] [place], [place] [address] 02/22/2023 10:00 AM EST Nurse Only Ancillary Perry Moran [address] [place] [address] [place], Nurse [address] [place] [address] 12/04/2023 11:40 AM EDT Office Visit Nephrology, [facility] [place] [address] Rosy Patel MD [address] [place] [address] Health Maintenance Due Date Last Done Comments Alpha-1 Antitrypsin 1958 *COPD SEVERITY VERIFIED BY PFT 07/16/2020 Depression Screening 02/28/2021 02/29/2020 Hepatitis B (3 of 3 - 19+ 3-dose series) 03/20/2023 01/23/2023, 01/08/2018 GFR 07/24/2023 01/23/2023, 12/16, 12/24/2022, Additional history exists Albumin/Creatinine Ratio 08/09/2023 023, 12/07/2021, 08/10/2021, Additional history exists Nephrology Referral 12/01/2023 01/23/2023 O2 ASSESSMENT COMPLETED IN PAST YEAR FOR COPD 12/01/2023 01/23/2023 PTH 12/01/2023 11/30/2022, 06/17, 07/19/2021, Additional history [...] this encounter Visit Diagnoses Diagnosis Need for prophylactic vaccination and inoculation against influenza- Primary Need for prophylactic vaccination and inoculation against viral hepatitis documented in this encounter Care Teams Salesperson Floor Coverings Relationship Specialty Start Date End Date Jody Arora MD [address] [place] [address] [place] [phone] PCP - General Family Medicine 11/21/21 documented as of this encounter
--- OUTSIDE RECORDS SUMMARY | 2023-05-15 03:34 | External Medical Summary | Summary of Care ---
Author Name Unknown Organization [facility] Address [address] [place] [address] Phone [phone] Care Team Providers Care Group Teacher Name Role Phone Jody Arora MD Primary Care Provide r Reason for Visit * Reason Comments Outpatient Testing Encounter Details Date Type Department Care Team (Late st Contact Info) Description 01/23/2023 10:20 AM EST Laboratory Laboratory [facility] [address] [place] [phone] [facility] [address] [place] [address] Renal cell carcinoma (HCC) Allergies No known active allergiesdocumented as [...] the morning 90 Capsule 1 08/23/2022 Active Ipratropium-Albutero l 0.5-2.5 (3) MG/3ML Inhalation [...] daily 180 Tablet 2 11/06/2022 Active Nystatin 702850 UNIT/GM External CreamIndications:Ski n yeast infection Apply topically to affected area 2 times a day. To affacted area for two weeks. 30 g 0 11/13/2022 Active Additional Information Patient not taking.Reported on 12/11/2022 Furosemide 40 MG Oral Tablet Take 1.5 Tablets by mouth in the morning. 30 Tablet 11 12/21/2022 Active NIFEdipine ER Osmotic Release 60 MG Oral Tablet Extended Release 24 Hour (Procardia XL) Take 1 Tablet by mouth in the morning and 1 Tablet before bedtime. 12/21/22 HOLD MEDICATION.. 180 Tablet 3 12/24/2022 Active hydrOXYzine HCl 50 MG Oral TabletIndications:Pr [...] OR CUT 90 Capsule 3 01/22/2023 Active documented as of this encounter (statuses [...] renal mass 07/11/2017 Overview: 2018 biopsy at [facility] per patient "kidney cancer". States he was advised he was not a surgical candidate. Carotid stenosis, right 07/11/2017 History of stroke 07/11/2017 Overview: TIA vs lacunar stroke diagnosed on head CT in [place] Apr 2017. Follow [facility] [...] Upcoming Encounters Date Type Department Care Team ([facility] Contact Info) Description 01/28/2023 4:15 PM [facility] Pharmacy Pharmacy[address] [address] Clinic, [address] [address] Pending Results Name Type Priority Associated Diagnoses Date /Time BASIC METABOLIC PANEL Lab Routine Renal cell carcinoma (HCC) 01/23/2023 10:26 AM EST Health Maintenance Due Date Last [...] encounter Visit Diagnoses Diagnosis Renal cell carcinoma (HCC) Malignant neoplasm of kidney, except pelvis documented in this encounter Care Teams Group Teacher Relationship Specialty Start Date End Date Jody Arora MD [address] [place] [address] [place] [address] PCP - General Family Medicine 11/21/21 documented as of this encounter
--- OUTSIDE RECORDS SUMMARY | 2023-05-15 03:34 | External Medical Summary | Summary of Care ---
Author Name Unknown Organization [facility] Address [address] [place] [address] Phone [phone] Care Team Providers Care Metal Bumper Name Role Phone Jody Arora MD Primary Care Provide r Reason for Visit * Reason Onset Date Comments Outpatient Testing 01/23/2023 Encounter Details Date Type Department Care Team (Late st Contact Info) Description 01/23/2023 Telephone [facility] [address] [facility] [place] [address] PatelRosy fine MD [address] [place] [address] Outpatient Testing Allergies No known active allergiesdocumented as of this encounter (statuses as of 01/24/2023) Medications Medication Sig Dispensed Refills Start Date [...] (HCC),COPD, group C, by GOLD 2017 classification ([facility]) Inhale 3 mL via nebulizer every 4 hours as needed for Wheezing. 120 mL 1 10/17/2022 Active hydrALAZINE HCl 25 MG Oral Tablet (Apresoline) Take 1 tablet by mouth twice daily 180 Tablet 2 11/06/2022 Active Nystatin 328397 UNIT/GM External CreamIndications:Ski n yeast infection Apply topically to affected area 2 times a day. To affacted area for two weeks. 30 g 0 11/13/2022 Active Furosemide 40 MG Oral Tablet Take 1.5 Tablets by mouth in the morning. 30 Tablet 11 12/21/2022 Active hydrOXYzine HCl 50 MG Oral TabletIndications:Pr [...] 1 Tablet before bedtime. 0 01/23/2023 Active predniSONE 20 MG Oral Tablet (Deltasone)Indicatio ns:COPD exacerbation (HCC) Take 2 Tablets by mouth in the morning for 5 days. 10 Tablet 0 10/17/2022 3 Discontinue d(End of Procedure) documented as of this encounter (statuses as of 01/24/2023) Active Problems Problem Noted Date Diagnosed Date [...] renal mass 07/11/2017 Overview: 2018 biopsy at [facility] per patient "kidney cancer". States he was advised he was not a surgical candidate. Carotid stenosis, right 07/11/2017 History of stroke 07/11/2017 Overview: TIA vs lacunar stroke diagnosed on head CT in [place] Apr 2017. Follow up MRI [facility] no infarct. Anxiety 07/11/2017 HTN, goal below 140/90 08/02/2015 Coronary artery disease Dyslipidemia, goal LDL below 100 documented as of this encounter (statuses as of 01/24/2023) Resolved Problems Problem Noted Date Diagnosed Date [...] as of this encounter (statuses as of 01/24/2023) Immunizations Name Administration Dates Next Due COVID-19 [...] encounter Miscellaneous Notes * Telephone Encounter - Gurinder Pacheco OSA - 01/24/2023 10:30 AM EST MRI and follow-up with Dr. Romeo to go over results has been rescheduled. * Telephone Encounter - Cameron Romeo MD - 01/23/2023 4:26 PM EST This all seems consistent with the patient's previously noted findings at the time of his visit last month and the stated plan. Thanks, HM * Telephone Encounter - Gabby Sosa RN - 01/23/2023 12:08 PM EST Urology Nurse- Please schedule MRI for this pt as Dr Romeo previously recommended for either [place] or [facility] due to pt preference. Also at request of Dr Patel. * Telephone Encounter - Rosy Patel MD - 01/23/2023 11:04 AM EST Correction Pls schedule MRI for [place] or else second choice [facility] * Telephone Encounter - Rosy Patel MD - 01/23/2023 10:52 AM EST Per [facility] 12/24/22 note: 12/24/22 renal u/s has "approximately 2.2 cm structure at left upper kidney newly developed indefinitely not cystic >> referred to [facility] urology. Patient is scheduled with Dr. Nino but prefers local follow-up and therefore scheduled with Pt saw Dr Romeo 12/28 >> plan was for MRI which was scheduled for January 21 in [place]. Patient canceled this. RECOMMEND -Pls work w/ Dr Romeo's nurse to get MRI scheduled in [facility] not [facility] to f/u renal mass; note GFR is 16 and not on dialysis so will ideally avoid gadolinium contrast w/ MRI if possible PCP, urology MD's fyi documented in this encounter Plan of Treatment Upcoming Encounters Date Type Department Care Team (Late st Contact Info) Description 01/24/2023 11:00 AM EST Office Visit Family Medicine [address] [place] [phone] Trace Calhoun MD [address] [place] [address] [place] [address] Arrived 01/28/2023 4:15 PM EST Pharmacy Pharmacy, [place] [address] [place] [address] Clinic, [facility] [address] [place] [address] 02/22/2023 10:00 AM EST Nurse Only Ancillary [address] [place] [address] [place], Nurse [address] [place] [address] 02/26/2023 2:30 PM EST Imaging Radiology [facility] [address] [place] [address] 03/05/2023 3:15 PM EST Telemedicine Urology Sarita MontgomeryMargie [address] [place] [address] [place] [address] Cameron Romeo MD [address] [place] [address] [place] [address] 12/04/2023 11:40 AM EDT Office Visit Nephrology, Mitzi Barajas 200 [facility] [place], [place] [address] PatelRosy fine MD 200 [facility] [place] [address] Health Maintenance Due Date Last Done Comments [...] filedocumented as of this encounter Care Teams Metal Bumper Relationship Specialty Start Date End Date Jody Arora MD [address] [place] [address] [place] [address] PCP - General Family Medicine 11/21/21 documented as of this encounter
--- OUTSIDE RECORDS SUMMARY | 2023-05-15 03:34 | External Medical Summary | Summary of Care ---
Author Name Unknown Organization [facility] Address [address] [place] [address] Phone [phone] Care Team Providers Care Portable Feed Mill Operator Name Role Phone Jody Arora MD Primary Care Provide r Reason for Visit * Reason Comments Re-Check Encounter Details Date Type Department Care Team (Late st Contact Info) Description 01/24/2023 11:00 AM EST Office Visit Family Medicine [address] [address] Trace Calhoun MD [address] [place] [address] [place] [address] Tinea cruris* Allergies No known active allergiesdocumented as of [...] 1 Tablet before bedtime. 0 01/23/2023 Active Clotrimazole-Betamet hasone 1-0.05 % External Cream (Lotrisone)Indicatio ns:Tinea cruris Apply topically to affected area 2 times a day for 28 days. To affected area for 4 weeks, or until healed. 45 g 1 01/24/2023 3 Active Menthol-Zinc Oxide 0.44-20.6 % External Ointment (Calmoseptine)Indica tions:Tinea cruris Apply to sore skin twice a day. 71 g 2 01/24/2023 Active predniSONE 20 MG Oral Tablet (Deltasone)Indicatio ns:COPD exacerbation (HCC) Take 2 Tablets by mouth in the morning for 5 days. 10 Tablet 0 10/17/2022 3 Discontinue d(End of Procedure) Nystatin 805495 UNIT/GM External CreamIndications:Ski n yeast infection Apply topically to affected area 2 times a day. To affacted area for two weeks. 30 g 0 11/13/2022 3 Discontinue d(Medicatio n/Dose Changed) documented as of [...] lacunar stroke diagnosed on head CT in [place] Apr 2017. Follow up MRI [facility] no infarct. Anxiety 07/11/2017 HTN, goal [...] Sign Reading Time Taken Comments Blood Pressure 134/70 01/24/2023 10:44 AM EST Pulse - - Temperature 35.6 C (96 F) 01/24/2023 10:44 AM EST Respiratory Rate - - Oxygen Saturation - - Inhaled Oxygen Concentration - - Weight 82.6 kg (182 lb) 01/24/2023 10:44 AM EST Height - - Body Mass Index 31.24 11/13/2022 9:14 AM EDT documented in this encounter Progress Notes * Trace Calhoun MD - 01/24/2023 10:46 AM EST Justin has a sore butt. At night this even leaks onto his shorts Health Maintenance addressed. Had flu and Covid boosters Past Medical History: Diagnosis Date Basal cell carcinoma (BCC) of skin of face 07/11/2017 CKD (chronic kidney disease), stage IV ([facility]) Coronary artery disease Dyslipidemia, goal LDL below 100 Microalbuminuria Myocardial infarct, old 1998 stent in [place]--Dr. Marques Non-Q wave myocardial infarction of anterolateral wall ([facility]) 1998 Pneumonia of right middle lobe due to infectious organism 01/16/2018 Pulmonary embolism ([facility]) Patient Active Problem List Diagnosis Code HTN, [...] actual BMI) E66.9 Chronic hypoxemic respiratory failure ([facility]) J96.11 Benign hypertension with chronic kidney disease, stage IV (HCC) I12.9, N18.4 MOLLY and COPD overlap syndrome ([facility]) G47.33, J44.9 History of basal cell carcinoma Z85.828 Old myocardial infarct I25.2 C7 radiculopathy M54.12 Lumbosacral radiculopathy at L5 M54.17 Renal osteodystrophy N25.0 Hx of nonmelanoma skin cancer Z85.828 AK (actinic keratosis) L57.0 Kidney disease, chronic, stage IV (GFR 15-29 ml/min) ([facility]) N18.4 COPD, group C, by GOLD 2017 classification ([facility]) J44.9 BPH without obstruction/lower urinary tract symptoms N40.0 Right sided weakness R53.1 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 Robb. normal PATIENT HAS A CORONARY ARTERY STENT 1998 REMOVAL OF APPENDIX remote SUTURE REPAIR OF ECTROPION Bilateral 11/09/2020 Review of patient's allergies indicates: No Known Allergies Social History Socioeconomic History Marital status: Spouse name: Not on file Number of children: Not on file Years of education: Not on file Highest education level: Not on file Occupational History Not on file Tobacco Use Smoking status: Former Types: Cigars Quit date: 03/18/1969 Years since quittin.8 Smokeless tobacco: Never Tobacco comments: one cigar a day Substance and Sexual Activity Alcohol use: Yes Comment: rare Drug use: No Sexual activity: Not on file Other Topics Concern Not on file Social History Narrative Not on file Social Determinants of Health Financial Resource Strain: Not on file Food Insecurity: Not on file Transportation Needs: Not on file Physical Activity: Not on file Stress: Not on file Social Connections: Not on file Intimate Partner Violence: Not on file Housing Stability: Not on file Results for orders placed or performed in visit on 01/23/23 BASIC METABOLIC PANEL Result Value Ref Range BUN 87 (H) 6 - 20 mg/dL Creatinine 4.8 (H) 0.6 - 1.2 mg/dL Estimated Glomerular Filtration Rate 11 (L) >=60 mL/min Sodium 142 135 - 146 mmol/L Potassium 5.1 3.5 - 5.1 mmol/L Chloride 104 98 - 107 mmol/L CO2 23 22 - 32 mmol/L Anion Gap 15 7 - 15 mmol/L Glucose 103 70 - 120 mg/dL Calcium 8.7 8.4 - 10.2 mg/dL O: Blood pressure 134/70, temperature 35.6 C (96 F), temperature source Tympanic, weight 82.6 kg (182 lb). He has redness in his butt crack but no skin breakdown yet. A: .Tinea cruris (Primary) - Clotrimazole-Betamethasone 1-0.05 % External Cream (Lotrisone); Apply topically to affected area 2 times a day for 28 days. To affected area for 4 weeks, or until healed. - Menthol-Zinc Oxide 0.44-20.6 % External Ointment (Calmoseptine); Apply to sore skin twice a day. documented in this encounter Nursing Notes * Mary Smith LPN - 01/24/2023 10:42 AM EST Something on back side for 6 weeks documented in this encounter Plan of Treatment Upcoming Encounters Date Type Department Care Team (Late st Contact Info) Description 01/28/2023 4:15 PM EST Pharmacy Pharmacy, [place] [address] [place] [address] [facility] [address] [place] [address] 02/22/2023 10:00 AM EST Nurse Only Ancillary [address] [place] [address] [place], Nurse [address] [place] [address] 02/26/2023 2:30 PM EST Imaging Radiology [address] [facility] [place] [address] 03/05/2023 3:15 PM EST Telemedicine Urology Lexa Donis [address] [place] [address] [place] [address] Cameron Romeo MD [address] [place] [address] [place] [address] 12/04/2023 11:40 AM EDT Office Visit Nephrology, [facility] [address] [facility] [place], [place] [address] Rosy Patel MD [address] [facility] [place] [address] Health Maintenance Due Date Last Done Comments [...] as of this encounter Visit Diagnoses Diagnosis Tinea cruris- Primary Dermatophytosis of groin and perianal area documented in this encounter Care Teams Portable Feed Mill Operator Relationship Specialty Start Date End Date Jody Arora MD [address] [place] [address] [place] [address] PCP - General Family Medicine 11/21/21 documented as of this encounter
--- OUTSIDE RECORDS SUMMARY | 2023-05-15 03:35 | External Medical Summary ---
Author Name Unknown Address Unknown Organization K0G:[facility] [address] [place] [address] Laboratory Report Ordering Provider Test Date Status OLEGARIO MALDONADO 12/28/2022 13:34:16 Final Observation Date Value Abnormality Reference (Units ) Status BUN 12/28/2022 13:34:16 60 Above high normal 6-20 (mg/dL) Final Creatinine 12/28/2022 13:34:16 3.7 Above high normal 0.6-1.2 (mg/dL) Final Glomerular filtration rate/1.73 sq M.predicted [Volume Rate/Area] in Serum, Plasma or Blood by Creatinine-based formula (CKD-EPI) 12/28/2022 13:34:16 16 Below low normal >=60 (mL/min) Final eGFR is calculated based on the CKD-EPI 2020 equation SODIUM 12/28/2022 13:34:16 141 135-146 (m mol/L) Final Potassium 12/28/2022 13:34:16 4.9 3.5-5.1 (m mol/L) Final Cl 12/28/2022 13:34:16 103 98-107 (mm ol/L) Final CO2 12/28/2022 13:34:16 26 22-32 (mmo l/L) Final Anion gap 12/28/2022 13:34:16 12 7-15 (mmol /L) Final Glucose 12/28/2022 13:34:16 124 Above high normal 70 -120 (mg/dL) Final Calcium 12/28/2022 13:34:16 8.5 8.4-10.2 ( mg/dL) Final Performing Location [facility] [place] [address] [place] [address]
--- OUTSIDE RECORDS SUMMARY | 2023-05-15 03:35 | External Medical Summary | Summary of Care ---
Author Name Unknown Organization [facility] Address [address] [place] [address] Phone [phone] Care Team Providers Care Babysitter Name Role Phone Jody Arora MD Primary Care Provide r Reason for Visit * Reason Comments eRx-Medication Refill Encounter Details Date Type Department Care Team (Late st Contact Info) Description 01/06/2023 Refill Family Medicine [address] [place] [address] Jody Arora MD [address] [place] [address] [place] [address] Primary insomnia Allergies No known active allergiesdocumented as of this encounter (statuses as of 01/07/2023) Medications Medication Sig Dispensed Refills Start Date [...] Capsule by mouth at bedtime. 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 DO NOT CHEW,CRUSH OR CUT 90 Capsule 1 3 Active Tamsulosin HCl 0.4 MG Oral [...] daily 180 Tablet 2 3 Active Nystatin 554898 UNIT/GM External CreamIndications:Sk in yeast infection Apply [...] with food 180 Tablet 1 3 Active Carvedilol 3.125 MG Oral Tablet (Coreg) Take 1 tablet by mouth twice daily with food 180 Tablet 1 3 01/08/20 Discontinued hydrOXYzine HCl 50 MG Oral TabletIndications:P rimary insomnia TAKE 1 TABLET BY MOUTH AT BEDTIME NEEDED FOR INSOMNIA 30 Tablet 1 3 01/08/20 Discontinued documented as of this encounter (statuses as of 01/07/2023) Active Problems Problem Noted Date Diagnosed Date [...] renal mass 07/11/2017 Overview: 2018 biopsy at [facility] per patient "kidney cancer". States he was advised he was not a surgical candidate. Carotid stenosis, right 07/11/2017 History of stroke 07/11/2017 Overview: TIA vs lacunar stroke diagnosed on head CT in [place] Apr 2017. Follow up MRI [facility] no infarct. Anxiety 07/11/2017 HTN, goal below 140/90 08/02/2015 Coronary artery disease Dyslipidemia, goal LDL below 100 documented as of this encounter (statuses as of 01/07/2023) Resolved Problems Problem Noted Date Diagnosed Date [...] as of this encounter (statuses as of 01/07/2023) Immunizations Name Administration Dates Next Due COVID-19 [...] Telephone Encounter - Trace Lynn MD - 01/07/2023 11:30 AM EDTSigned Prescriptions: Disp Refills hydrOXYzine HCl 50 MG Oral Tablet 30 Tab*1 Sig: TAKE 1 TABLET BY MOUTH AT BEDTIME NEEDED FOR INSOMNIA Authorizing Provider: TRACE LYNN Carvedilol 3.125 MG Oral Tablet (Coreg) 180 Ta*1 Sig: Take 1 tablet by mouth twice daily with food Authorizing Provider: JODY ARORA Ordering User: MARII BARRON * Telephone Encounter - Marii Barron formerly [facility] - 01/07/2023 9:59 AM EDTPending Prescriptions: Disp Refills hydrOXYzine HCl 50 MG Oral Tablet 30 Tab*1 Sig: TAKE 1 TABLET BY MOUTH AT BEDTIME NEEDED FOR INSOMNIA Signed Prescriptions: Disp Refills Carvedilol 3.125 MG Oral Tablet (Coreg) 180 Ta*1 Sig: Take 1 tablet by mouth twice daily with food Authorizing Provider: JODY ARORA ring User: MARII BARRON * Telephone Encounter - Marii Barron RPh - 01/07/2023 9:58 AM EDT Did you pend patient's preferred pharmacy and medication before forwarding?yes Pharmacy: [facility] [address] [place] [address] Pending Prescriptions: Disp Refills hydrOXYzine HCl 50 MG Oral Tablet 30 Tab*1 Sig: TAKE 1 TABLET BY MOUTH AT BEDTIME NEEDED FOR INSOMNIA Signed Prescriptions: Disp Refills Carvedilol 3.125 MG Oral Tablet (Coreg) 180 Ta*1 Sig: Take 1 tablet by mouth twice daily with food Authorizing Provider: JODY ARORA Ordering User: MARII BARRON Last Visit: 11/13/2022 (in office), 03/09/2022 (telemedicine) Next Visit: Visit date not found If no future appointments scheduled, and last appointment is greater than a year ago, please schedule patient for a follow-up appointment Last date the medication was ordered: 11/07/22 Is this request for a controlled substance?No Urine Drug Screen:No results found for this or any previous visit. Patient Phone Numbers Labs: Lab Results Component Value Date/Time CREAT 3.7 (H) 12/28/2022 01:34 PM CREAT 3.75 (A) 12/24/2022 12:00 AM CREAT 2.5 (H) 03/24/2020 12:33 PM POTASSIUM 4.9 12/28/2022 01:34 PM POTASSIUM 4.2 12/24/2022 12:00 AM POTASSIUM 4.8 03/24/2020 12:33 PM [...] Care Team (Late st Contact Info) Description 01/07/2023 4:15 PM EDT Pharmacy Pharmacy, [place] [address] [place] [address] Clinic, [place] [address] [place] [address] 01/23/2023 10:40 AM EST Office Visit Nephrology, [facility] [address] [place] [address] Rosy Patel MD [address] [place] [address] Health Maintenance Due Date Last Done Comments Alpha-1 Antitrypsin 1958 Hepatitis B (2 of 3 - 19+ 3-dose series) 02/05/2018 01/08/2018 *COPD SEVERITY VERIFIED BY PFT 07/16/2020 Depression Screening 02/28/2021 02/29/2020 Influenza Vaccine (FLU shot) (#1) 2022 12/07/2021, 12/05/2020, 12/18/2019, Additional history exists GFR 06/29/2023 12/28/2022, 100 11/2022, 12/20/2022, Additional history exists Albumin/Creatinine Ratio [...] sleep documented in this encounter Care Teams Babysitter Relationship Specialty Start Date End Date Jody Arora MD [address] [place] [address] [place] [address] PCP - General Family Medicine 11/21/21 documented as of this encounter
--- OUTSIDE RECORDS SUMMARY | 2023-05-15 03:35 | External Medical Summary | Summary of Care ---
Author Name Unknown Organization [facility] Address [address] [place] [address] Phone [phone] Care Team Providers Care Repair Mechanic Name Role Phone Jody Arora MD Primary Care Provide r Reason for Visit * Reason Comments Left Message Encounter Details Date Type Department Care Team (Late st Contact Info) Description 01/07/2023 4:15 PM EDT Pharmacy Pharmacy, [place] [address] [place] [address] [facility] [address] [place] [address] Need for hepatitis B vaccination* [...] NOT CHEW,CRUSH OR CUT 90 Capsule 1 07/17/2022 Active Tamsulosin HCl 0.4 MG Oral Capsule [...] daily 180 Tablet 2 11/06/2022 Active Nystatin 515260 UNIT/GM External CreamIndications:Ski n yeast infection Apply [...] with food 180 Tablet 1 01/07/2023 Active documented as of this encounter (statuses [...] lacunar stroke diagnosed on head CT in [place] Apr 2017. Follow up [facility] no infarct. Anxiety 07/11/2017 HTN, goal [...] as of this encounter Progress Notes * Lucita Matt junior recruiter - 01/07/2023 12:14 PM EDT Patient Phone Numbers LMOM requesting return call to set up Hep B series. Attempt 3 Thank you, Lucita Matt Quahogger 01/07/2023,12:14 PM documented in this encounter Plan of Treatment Upcoming Encounters Date Type Department Care Team (Late st Contact Info) Description 01/23/2023 10:40 AM EST Office Visit Nephrology, [facility] [address] [place] [address] Rosy Patel MD [address] [facility] [place] [address] 01/28/2023 4:15 PM EST Pharmacy Pharmacy, [place] [address] [place], [place] [address] [facility] [address] [place] [address] Health Maintenance Due Date Last Done Comments [...] hepatitis documented in this encounter Care Teams Repair Mechanic Relationship Specialty Start Date End Date Jody Arora MD [address] [place] [address] [place] [address] PCP - General Family Medicine 11/21/21 documented as of this encounter
--- OUTSIDE RECORDS SUMMARY | 2023-05-15 03:35 | External Medical Summary | Summary of Care ---
Author Name Unknown Organization [facility] Address [address] [place] [address] Phone [phone] Care Team Providers Care Biofuels Production Associate Name Role Phone Jody Arora MD Primary Care Provide r Reason for Visit * Reason Onset Date Comments Appointment 12/05/2022 Encounter Details Date Type Department Care Team Description 12/05/2022 Telephone Pharmacy, [address] [place] [id number] Ruma Fraser[address] [place] [address] Appointment Allergies No known active allergiesdocumented as of this encounter (statuses as of 12/31/2022) Medications Medication Sig Dispensed Refills Start Date [...] Capsule by mouth at bedtime. 0 Active Carvedilol 3.125 MG Oral Tablet (Coreg) Take 1 tablet by mouth twice daily with food 180 Tablet 1 07/10/2022 Active Venlafaxine HCl ER 37.5 MG Oral [...] BEDTIME NEEDED FOR INSOMNIA 30 Tablet 1 11/07/2022 Active Nystatin 439203 UNIT/GM External CreamIndications:Sk in yeast infection Apply topically to affected area 2 times a day. To affacted area for two weeks. 30 g 0 11/13/2022 Active Additional Information Patient not taking.Reported on 12/11/2022 NIFEdipine ER Osmotic Release 60 MG Oral Tablet Extended Release 24 Hour Take by mouth 1 Tablet in the morning AND 1 Tablet before bedtime. 180 Tablet 3 01/19/2022 3 Discontinu ed(Refill) Furosemide 40 MG Oral Tablet (Lasix) Take 1 Tablet by mouth in the morning. 30 Tablet 11 04/10/2022 3 Discontinu ed(Refill) documented as of this encounter (statuses as of 12/31/2022) Active Problems Problem Noted Date Papillary renal cell carcinoma 2 Overview: Of the L kidney BPH without obstruction/lower urinary tr act symptoms 12/07/2021 Right sided weakness 12/07/2021 COPD, group C, by GOLD 2017 classificati on 11/27/2021 Overview: Per COPD GOLD Classification Kidney disease, chronic, stage IV (GFR 1 5-29 ml/min) 07/26/2020 Overview: Per CKD protocol Hx of [...] 12/22/2018 Overview: Right Lumbosacral radiculopathy at L5 12/23/19 19 Overview: Right Old myocardial infarct 11/26/2018 History of basal cell carcinoma 07/15/19 MOLLY and COPD overlap syndrome 04/18/2018 Overview: Home sleep study 04/2018 Dr Wright. 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 States he was advised he was not a surgical candidate. Carotid stenosis, right 07/11/2017 History of stroke 07/11/2017 Overview: TIA vs lacunar stroke diagnosed on head CT in [place] Apr 2017. Follow up MRI [facility] no infarct. Anxiety 07/11/2017 HTN, goal below 140/90 08/02/2015 Coronary artery disease Dyslipidemia, goal LDL below 100 documented as of this encounter (statuses as of 12/31/2022) Resolved Problems Problem Noted Date Resolved Date Prediabetes 09/26/2020 03/01/2022 Overview: Per Prediabetes protocol Meningioma 03/31/2019 12/07/2021 Severe obesity with body mas s index (BMI) of 35.0 to 39.9 with serious comorbidity 12/29/2018 08/21/2022 Aneurysm of aorta 12/02/2018 11/01/2022 Overview: 3.3 cm AAA noted on renal us 12/27/21 Right hemiplegia 11/26/2018 12/07/2021 Senile calcific aortic valve sclerosis 9 12/07/2021 COPD, severe 08/05/2018 11/30/2021 Overview: Per COPD GOLD Classification Benign hypertension with chronic kidney disease, stage IV 07/23/2018 08/27/2018 Pneumonia of right middle lobe due to infectious organism 01/16/2018 04/14/2018 Nonrheumatic aortic valve stenosis 01/15/2018 12/07/2021 Overview: Echo 01/02. Dr Zaragoza. Non-rheumatic mitral valve stenosis 01/15/2018 12/07/2021 Overview: Echo 12/2017. Dr Zaragoza. Anemia of chronic renal failure, stage 3 (modera te) 07/11/2017 11/02/2017 Overview: Per CKD protocol #1 - Basal cell carcinoma (BCC) of skin of face 07/1107/14/2018 Hyperkalemia 07/11/2017 12/07/2021 CKD (chronic kidney disease) stage 3, GFR 30-59 ml/min 01/28/2015 08/08/2017 documented as of this encounter (statuses as of 12/31/2022) Immunizations Name Administration Dates Next Due COVID-19 mRNA, LNP-s, No Pre serve, 2-Dose Series (Moderna) 01/10/2021,05/24/2020,04/26/2020 Hepatitis B, 20+ yrs 01/08/2018 Pneumococcal Conjugate Vacc, 13 Valent (Prevnar) 01/16/2018 Pneumococcal Polysaccharide PPV23 (Pneumovax) 02/09/2015 SEASONAL INFLUENZA, PF, 6 M & Above, [...] = 0.6 oz pur e alcohol) rare Sex Assigned at Date Recorded Not on file Job Start Date Occupation Industry Not on file Not on file Not on file documented as of this encounter Miscellaneous Notes * Telephone Encounter - MOLLY Jay - 12/31/2022 9:28 AM EDT I spoke to Justin today, he will call me back and get those inj scheduled. * Telephone Encounter - MOLLY Jay - 12/10/2022 10:49 AM EDT I left message with patient's for him to call me (RE: Scheduling Hep B Injs). * Telephone Encounter - Jody Arora MD - 12/05/2022 2:17 PM EDT Please help pt sche a nurse visit to initiate hep B vaccine series - he required all 3 shots * Telephone Encounter - Ruma Fraser RPh - 12/05/2022 1:[address] Bonner, patient in need of Hep B series as he nears ESRD. Please advise on how to proceed. Thanks! Ruma Fraser RPh, PharmD Clinical Pharmacist - Food Sampler Medication Therapy [facility] 12/05/2022, 1:49 PM [phone] documented in this encounter Plan of Treatment Upcoming Encounters Date Type Specialty Care Team Description 12/31/2022 Pharmacy Pharmacy Clinic, [place] [address] [place] [address] 01/21/2023 Appointment Radiology 01/21/2023 Office Visit Urology Jael Nino MD [address] [place] [address] 01/23/2023 Office Visit Nephrology Rosy Patel MD [address] [place] [address] 01/29/2023 Imaging Radiology 02/05/2023 Telemedicine Urology Cameron Romeo MD [address] [facility] [address] [place] [address] Health Maintenance Due Date Last Done Comments Alpha-1 Antitrypsin 1958 Hepatitis B (2 of 3 - 19+ 3-dose series) 02/05/2018 01/08/2018 *COPD SEVERITY VERIFIED BY PFT 07/16/2020 Depression Screening 02/28/2021 02/29/2020 COVID-19 Vaccine ( season) 2022 01/10/2021, 05/24/2020, 04/26/2020 Influenza Vaccine (FLU shot) (#1) 2022 12/07/2021, [...] 01/16/2018, 02/09/2015 Zoster Vaccines Completed 12/11/2019, 10/09/2019 GARDASIL-HPV IMMUNIZATION SERIES Aged Out No longer eligible based on patient's age to complete this topic MENINGOCOCCAL (MENACTRA/MENVEO) Aged Out No longer eligible based on patient's age to complete this topic documented as of this encounter Medical Devices Not on filedocumented as of this encounter Care Teams Biofuels Production Associate Relationship Specialty Start Date End Date Jody Arora MD [address] [place] [address] [place] [address] PCP - General Family Medicine 11/21/21 documented as of this encounter
--- OUTSIDE RECORDS SUMMARY | 2023-05-15 03:35 | External Medical Summary | Summary of Care ---
Author Name Unknown Organization [facility] Address [address] [place] [address] Phone [phone] Care Team Providers Care Locksmith Apprentice Name Role Phone Jody Arora MD Primary Care Provide r Reason for Visit * Reason Onset Date Comments Appointment 12/24/2022 Encounter Details Date Type Department Care Team Description 12/24/2022 Telephone Nephrology, [address] [address] Deirdre Salinas MD [address] [place] [address] Appointment Allergies No known active allergiesdocumented as of this encounter (statuses as of 12/28/2022) Medications Medication Sig Dispensed Refills Start Date [...] before bedtime. 120 Tablet 11 05/09/2022 Active Additional Information Patient not taking.Reported on 12/11/2022 Melatonin 10 MG Oral Capsule Take 1 [...] 11/06/2022 Active hydrOXYzine HCl 50 MG Oral TabletIndications:Pr imary insomnia TAKE 1 TABLET BY MOUTH AT BEDTIME NEEDED FOR INSOMNIA 30 Tablet 1 11/07/2022 Active Nystatin 458483 UNIT/GM External CreamIndications:Ski n yeast infection Apply topically to affected area 2 times a day. To affacted area for two weeks. 30 g 0 11/13/2022 Active Additional Information Patient not taking.Reported on 12/11/2022 Furosemide 40 MG Oral Tablet (Lasix) Take 1.5 Tablets by mouth in the morning. 30 Tablet 11 12/21/2022 Active NIFEdipine ER Osmotic Release 60 MG Oral Tablet Extended Release 24 Hour (Procardia XL) Take 1 Tablet by mouth in the morning and 1 Tablet before bedtime. 12/21/22 HOLD MEDICATION.. 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 States he was advised he was not a surgical candidate. Carotid stenosis, right 07/11/2017 History of stroke 07/11/2017 Overview: TIA vs lacunar stroke diagnosed on head CT in [place] Apr 2017. Follow up MRI [facility] no infarct. Anxiety 07/11/2017 HTN, goal below 140/90 08/02/2015 Coronary artery disease Dyslipidemia, goal LDL below 100 documented as of this encounter (statuses as of 12/28/2022) Resolved Problems Problem Noted Date Resolved Date [...] as of this encounter (statuses as of 12/28/2022) Immunizations Name Administration Dates Next Due COVID-19 [...] Telephone Encounter - Rosy Patel MD - 12/25/2022 9:11 AM EDT Patient follows w/ Dr Shankar [facility]/onc FYI * Telephone Encounter - MOLLY Curran - 12/24/2022 3:08 PM EDT 12/24 called patient. Talked to Justin Pinedo and was going to schedule an appointment with Dr. Patel in February. Patient is saying he wants someone to backtrack due to he was suppose to have an appointment with Oncology not nephrology. Patient and I are confused. Please explain what is suppose to be happening. documented in this encounter Plan of Treatment Upcoming Encounters Date Type Specialty Care Team Description 12/28/2022 Telemedicine Urology Cameron Romeo MD [address] [place] [address] [place] [address] 7, Telemed [facility] Urology Ex Rm [address] [place] [address] 12/31/2022 [facility] [address] [facility] [address] 01/21/2023 Appointment Radiology 01/21/2023 Office Visit Urology Jael Nino MD [address] [place] [address] 04/01/2023 Office Visit Nephrology [facility] [address] [facility] [address] Health Maintenance Due Date Last Done Comments Alpha-1 Antitrypsin 1958 Hepatitis B (2 of 3 - 19+ 3-dose series) 02/05/2018 01/08/2018 *COPD SEVERITY VERIFIED BY PFT 07/16/2020 Depression Screening 02/28/2021 02/29/2020 COVID-19 Vaccine ( season) 2022 01/10/2021, 05/24/2020, 04/26/2020 Influenza Vaccine (FLU shot) (#1) 2022 12/07/2021, 12/05/2020, 12/18/2019, Additional history exists GFR 06/25/2023 12/24/2022, 07/2022, 11/30/2022, Additional history exists Albumin/Creatinine Ratio 08/09/2023 023, [...] filedocumented as of this encounter Care Teams Locksmith Apprentice Relationship Specialty Start Date End Date Jody Arora MD [address] [place] [address] [place] [address] PCP - General Family Medicine 11/21/21 documented as of this encounter
--- OUTSIDE RECORDS SUMMARY | 2023-05-15 03:35 | External Medical Summary | Summary of Care ---
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 Procedures MRI KIDNEY WO CONTRAST Cameron Romeo MD [address] [place] [address] [place] [address] Referral ID Status Reason Start Date Expiration Date V isits Requested Visits Authorized [id number] Authorized 12/28/2022 999 999 Reason for Visit * Reason Comments NEW PATIENT * Evaluate & Treat - Unlimited Visits (Within 10 days (routine)) - Authorized Specialty Diagnoses / Procedures Referred By Adam t Referred To Contact Urology Diagnoses Papillary adenocarcinoma of left kidney (HCC) Suzette Shankar MD [address] [place] [address] Referral ID Status Reason Start Date Expiration Date Visits Requested Visits Authorized [id number] Authorized Specialty Services Required 3 999 999 Encounter Details Date Type Department Care Team Description 12/28/2022 Telemedicine Urology Margie Donis [address] [place] [address] [place] [address] Cameron Romeo MD [address] [place] [address] [place] [address] 7, Telemed [facility] Urology Ex Rm [address] [place] [address] 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 States he was advised he was not a surgical candidate. Carotid stenosis, right 07/11/2017 History of stroke 07/11/2017 Overview: TIA vs lacunar stroke diagnosed on head CT in [place] Apr 2017. Follow up MRI [facility] no infarct. Anxiety 07/11/2017 HTN, goal below [...] Progress Notes * Cameron Romeo MD - 12/28/2022 3:00 PM EDT [id number] PCP: LONDON PERALES [address] [place] [address] [place] [address] Patient location: CLINIC. I was in a different facility from the patient. After connecting through televideo, patient was verified with two unique identifiers. Patient (or authorized legal human resources hr representative) was then informed that this was a Telemedicine visit and being conducted confidentially over secure lines. My office door was closed. No one else was in the room with me. Patient acknowledged consent and understanding of privacy and security of the Telemedicine visit, and gave permission to have a telemedicine presenter stay in the room in order to assist with the history and to conduct the exam as needed. I informed the patient that I have reviewed their record in [facility] and presented the opportunity for them to ask any questions regarding the visit today. The patient agreed to participate. Justin Pinedo is a 82 year old male, who presents in referral for evaluation of a 2.2 cm cystic leftrenal lesion. 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 Patient's past notes an ultrasound imaging studies are reviewed personally with patient via screen share. Patient was previously seen by a urologist at [facility] for his finding. Patient denies symptoms associated with his findings. He notes he is pending initiation of dialysis soon. A relatively avascular lesion is noted on his ultrasound images from December of 2021. Renal cell carcinoma: Presented with myself December 2022. Renal ultrasound December 2021: IMPRESSION Increased echogenicity of the kidneys suggesting medical renal disease. Persistent left upper pole mass suspicious for neoplasm Mild 3.3 cm distal abdominal aortic aneurysm. BPH: He has tried tamsulosin. Problem has been present for years. Creatinine Results: Lab Results Component Value Date/Time CREATININE - [facility] 3.8 (H) 12/20/2022 12:27 PM CREATININE - [facility] 3.8 (H) 11/30/2022 03:43 PM CREATININE - [facility] 3.6 (H) 08/08/2022 12:36 PM CREATININE - [facility] 2.5 (H) 03/24/2020 12:33 PM CREATININE - [facility] 2.3 (H) 04/20/2019 11:23 AM CREATININE - [facility] 2.5 (H) 04/02/2019 12:35 PM CREATININE, RANDOM URINE - [facility] 51 08/08/2022 12:43 PM CREATININE, RANDOM URINE - [facility] 57 12/07/2021 11:15 AM CREATININE, RANDOM URINE - [facility] 78 07/19/2021 04:01 PM CREATININE, RANDOM URINE - [facility] 123 03/24/2020 12:43 PM CREATININE, RANDOM URINE - [facility] 120 04/02/2019 12:34 PM CREATININE, RANDOM URINE - [facility] 130 01/13/2019 02:15 PM CREATININE-[facility] 3.75 (A) 12/24/2022 12:00 AM CREATININE-[facility] 3.45 (A) 05/29/2022 12:00 AM CREATININE-[facility] 4.24 (A) 02/01/2022 12:00 AM Current Outpatient Medications Medication Sig Dispense Refill nitroglycerin (NITROSTAT) 0.4 MG SUBL 1 Tablet. (Patient not taking: Reported on 12/11/2022) Ventolin HFA 108 (90 Base) MCG/ACT Inhalation Aerosol Solution Inhale by mouth 2 Puffs every 4 hours as needed for Wheezing. (Patient not taking: Reported on 12/11/2022) 18 g 1 Fluticasone Propionate (Inhal) 50 MCG/BLIST Inhalation Aerosol Powder Breath Activated Inhale 1 Puff by mouth in the morning and 1 Puff before bedtime. (Patient not taking: Reported on 12/11/2022) Albuterol Sulfate (2.5 MG/3ML) 0.083% Inhalation Nebulization Solution (Proventil) Inhale 1 Vial (2.5 mg) via nebulizer every 6 hours as needed for Wheezing. (Patient not taking: Reported on 12/11/2022) 360 mL 0 Rosuvastatin Calcium 40 MG Oral Tablet (Crestor) Take 1 Tablet by mouth in the morning. 90 Tablet 3 Sodium Bicarbonate 650 MG Oral Tablet Take 1 Tablet by mouth in the morning and 1 Tablet before bedtime. (Patient not taking: Reported on 12/11/2022) 120 Tablet 11 Melatonin 10 MG Oral Capsule Take 1 Capsule by mouth at bedtime. (Patient not taking: Reported on 12/11/2022) Carvedilol 3.125 MG Oral Tablet (Coreg) Take 1 tablet by mouth twice daily with food 180 Tablet 1 Venlafaxine HCl ER 37.5 MG Oral Capsule Extended Release 24 Hour (Effexor XR) TAKE 1 CAPSULE BY MOUTH ONCE DAILY . DO NOT CHEW,CRUSH OR CUT 90 Capsule 1 Tamsulosin HCl 0.4 MG Oral Capsule (Flomax) Take 1 capsule by mouth in the morning 90 Capsule 1 Ipratropium-Albuterol 0.5-2.5 (3) MG/3ML Inhalation Solution (Duoneb) Inhale 3 mL via nebulizer every 4 hours as needed for Wheezing. (Patient not taking: Reported on 12/11/2022) 120 mL 1 hydrALAZINE HCl 25 MG Oral Tablet (Apresoline) Take 1 tablet by mouth twice daily 180 Tablet 2 hydrOXYzine HCl 50 MG Oral Tablet TAKE 1 TABLET BY MOUTH AT BEDTIME NEEDED FOR INSOMNIA 30 Tablet 1 Nystatin 267170 UNIT/GM External Cream Apply topically to affected area 2 times a day. To affacted area for two weeks. (Patient not taking: Reported on 12/11/2022) 30 g 0 Furosemide 40 MG Oral Tablet (Lasix) Take 1.5 Tablets by mouth in the morning. 30 Tablet 11 NIFEdipine ER Osmotic Release 60 MG Oral Tablet Extended Release 24 Hour (Procardia XL) Take 1 Tablet by mouth in the morning and 1 Tablet before bedtime. 12/21/22 HOLD MEDICATION.. 180 Tablet 3 No current facility-administered medications for this visit. [...] carcinoma (BCC) of skin of face 07/11/2017 Coronary artery disease Dyslipidemia, goal LDL below 100 Microalbuminuria Myocardial infarct, old 1998 stent in [place]--Dr. 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 Pneumonia of right middle lobe due to infectious organism 01/16/2018 Pulmonary embolism (HCC) Patient Active Problem List Diagnosis Code HTN, [...] actual BMI) E66.9 Chronic hypoxemic respiratory failure (HCC) J96.11 Benign hypertension with chronic kidney disease, stage IV ([facility]) I12.9, N18.4 MOLLY and COPD overlap syndrome ([facility]) G47.33, J44.9 History of basal cell carcinoma Z85.828 Old myocardial infarct I25.2 C7 radiculopathy M54.12 Lumbosacral radiculopathy at L5 M54.17 Renal osteodystrophy N25.0 Hx of nonmelanoma skin cancer Z85.828 AK (actinic keratosis) L57.0 Kidney disease, chronic, stage IV (GFR 15-29 ml/min) ([facility]) N18.4 COPD, group C, by GOLD 2017 classification ([facility]) J44.9 BPH without obstruction/lower urinary tract symptoms N40.0 Right sided weakness R53.1 Papillary renal cell carcinoma ([facility]) C64.9 Constitutional: (-) fever and (-) chills Eyes: (+) corrective lenses Pulmonary: (+) dyspnea Male : see HPI Skin: (+) history of actinic keratosis Neurology: (-) negative: no focal neurologic defect Psychiatry: (-) negative: no depression or anxiety Musculoskeletal: (+) back pain/problems Physical Exam Nursing note reviewed. Constitutional: General: He is not in acute distress. Appearance: He is not toxic-appearing. HENT: Head: Normocephalic and atraumatic. Right Ear: External ear normal. Left Ear: External ear normal. Nose: Nose normal. Mouth/Throat: Mouth: Mucous membranes are moist. Eyes: Extraocular Movements: Extraocular movements intact. Pulmonary: Effort: Pulmonary effort is normal. No respiratory distress. Skin: Coloration: Skin is not pale. Neurological: Motor: No weakness. Gait: Gait normal. Psychiatric: Behavior: Behavior normal. Thought Content: Thought content normal. Impression/Plan: 82-year-old male with a 2.2 cm left-sided equivocal renal lesion. Findings reviewed with patient. Patient's lesion does not seem overly worrisome on current imaging findings. In addition, it appears to have been stable at least over the past year. Will request outside imaging studies for review. Will obtain MRI as previously ordered for more accurate evaluation characteristics and size. However, even in the presence of a biopsy confirmed renal lesion, considering the patient's age and comorbidities active surveillance would be the most typical form of management. Size criteria for aggressivity are reviewed. Patient and vocalized understanding of the plan. Will see after MRI for imaging review. Patient wishes to follow locally if possible, should be fe asible. Patient vocalizes good understanding of the treatment plan. Cameron Romeo MD 2:41 PM 12/27/2022 documented in this encounter Nursing Notes * Albina Dugan LPN - 12/28/2022 1:42 PM EDT New pt. Presents with . Renal cell carcinoma. documented in this encounter Plan of Treatment Upcoming Encounters Date Type Specialty Care Team Description 12/31/2022 Pharmacy Pharmacy Clinic, [place] [address] [place] [address] 01/21/2023 Appointment Radiology 01/21/2023 Office Visit Urology Jael Nino MD [address] [place] [address] 01/29/2023 Imaging Radiology 02/05/2023 Telemedicine Urology Cameron Romeo MD [address] [address] [place] [address] 04/01/2023 Office Visit Nephrology Deirdre Salinas MD [address] [facility] [place] [address] Scheduled Orders Name Type Priority Associated Diagnoses Orde r Schedule MRI KIDNEY WO CONTRAST Medical Imaging Routine 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
--- OUTSIDE RECORDS SUMMARY | 2023-05-15 03:35 | External Medical Summary | Summary of Care ---
Author Name Unknown Organization [facility] Address [address] [place] [address] Phone [phone] Care Team Providers Care Typing Teacher Name Role Phone Jody Arora MD Primary Care Provide r Reason for Visit * Reason Comments Left Message Encounter Details Date Type Department Care Team Description 12/31/2022 Pharmacy Pharmacy, [place] [address] [place], [place] [id number] Clinic, [place] [address] [place] [address] Need for hepatitis B vaccination* [...] INSOMNIA 30 Tablet 1 11/07/2022 Active Nystatin 891744 UNIT/GM External CreamIndications:Ski n yeast infection Apply [...] Overview: Right Lumbosacral radiculopathy at L5 12/23/19 Overview: Right Old myocardial infarct 11/26/2018 History [...] renal mass 07/11/2017 Overview: 2018 biopsy at [facility] per patient "kidney cancer". States he was advised he was not a surgical candidate. Carotid stenosis, right 07/11/2017 History of stroke 07/11/2017 Overview: TIA vs lacunar stroke diagnosed on head CT in [place] Apr 2017. Follow up MRI [facility] no infarct. Anxiety 07/11/2017 HTN, goal [...] as of this encounter Progress Notes * Carolyn Sloan CPhT - 12/31/2022 10:53 AM EDT Patient Phone Numbers Left message asking for return call to schedule Hep B series Will follow up in 1 week. Attempt 2 Thank you, Carolyn Sloan CPhT 12/31/2022 10:54 AM documented in this encounter Plan of Treatment Upcoming Encounters Date Type Specialty Care Team Description 01/07/2023 Pharmacy Pharmacy Clinic, [facility] [address] [place] [address] 01/21/2023 Appointment Radiology 01/21/2023 Office Visit Urology Jael Nino MD [address] [place] [address] 01/23/2023 Office Visit Nephrology Rosy Patel MD [address] [place] [address] 01/29/2023 Imaging Radiology 02/05/2023 Telemedicine Urology Cameron Romeo MD [address] [facility] [address] [place] [address] Health Maintenance Due Date Last [...] hepatitis documented in this encounter Care Teams Typing Teacher Relationship Specialty Start Date End Date Jody Arora MD [address] [place] [address] [place] [address] PCP - General Family Medicine 11/21/21 documented as of this encounter
--- OUTSIDE RECORDS SUMMARY | 2023-05-15 03:35 | External Medical Summary | Summary of Care ---
Author Name Unknown Organization [facility] Address [address] [place] [address] Phone [phone] Care Team Providers Care Hadoop Architect Name Role Phone Jody Arora MD Primary Care Provide r Reason for Visit * Reason Comments Outpatient Testing Encounter Details Date Type Department Care Team Description 12/28/2022 Laboratory Laboratory, [facility] [address] [place] [id number] [facility] [address] [place] [address] Kidney disease, chronic, stage IV (GFR 15-29 ml/min) ([facility]) Allergies No known active allergiesdocumented as of [...] C, by GOLD 2017 classification ([facility]) Inhale 3 mL via nebulizer [...] INSOMNIA 30 Tablet 1 11/07/2022 Active Nystatin 572813 UNIT/GM External CreamIndications:Ski n yeast infection Apply [...] renal mass 07/11/2017 Overview: 2018 biopsy at [facility] per patient "kidney cancer". States he was advised he was not a surgical candidate. Carotid stenosis, right 07/11/2017 History of stroke 07/11/2017 Overview: TIA vs lacunar stroke diagnosed on head CT in [place] Apr 2017. 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)*; Complex renal cyst 12/31/2022 Pharmacy Pharmacy Clinic, [place] [address] [place] [address] 01/21/2023 Appointment Radiology 01/21/2023 Office Visit Urology Jeal Nino MD [address] [place] [address] 01/29/2023 Imaging Radiology 02/05/2023 Telemedicine Urology Cameron Romeo MD [address] [place] [address] [place] [address] 04/01/2023 Office Visit Nephrology Deirdre Salinas MD [address] [facility] [address] Pending Results Name Type Priority Associated Diagnoses Date /Time BASIC METABOLIC PANEL Lab Routine Kidney disease, chronic, stage IV (GFR 15-29 ml/min) (HCC) 12/28/2022 1:34 PM EDT Health Maintenance Due Date Last Done Comments [...] cyst Other specified congenital cystic kidney disease Kidney disease, chronic, stage IV (GFR 15-29 ml/min) (HCC) Chronic kidney disease, Stage IV (severe) documented in this encounter Care Teams Hadoop Architect Relationship Specialty Start Date End Date Jody Arora MD [address] [place] [address] [place] [address] PCP - General Family Medicine 11/21/21 documented as of this encounter
--- OUTSIDE RECORDS SUMMARY | 2023-05-15 03:35 | External Medical Summary | Summary of Care ---
Author Name Unknown Organization [facility] Address [address] [place] [address] Phone [phone] Care Team Providers Care Guest Services Attendant Name Role Phone Jody Arora MD Primary Care Provide r Reason for Visit * Reason Onset Date Comments Advice 12/26/2022 Encounter Details Date Type Department Care Team Description 12/26/2022 Telephone Nephrology, Mitzi Otho [address] [facility] [place] [address] Rosy Patel MD [address] [facility] [place] [address] Advice Allergies No known active allergiesdocumented as [...] INSOMNIA 30 Tablet 1 11/07/2022 Active Nystatin 147986 UNIT/GM External CreamIndications:Ski n yeast infection Apply [...] lacunar stroke diagnosed on head CT in [place] Apr 2017. Follow up MRI [facility] no infarct. Anxiety 07/11/2017 HTN, [...] Telephone Encounter - Gabby Sosa RN - 12/28/2022 3:08 PM EDT Junior Electrical Engineer is following up with pt to set up follow up appointment. * Telephone Encounter - Rosy Patel MD - 12/27/2022 10:22 PM EDT See previous note where I already reviewed Dr Shankar's most recent visit. Yes he still needs neph f/u; pls ensure it's set up appropriately; pls f/u on UROLOGY eval and he needs to cont w/ oncology as well Consider asking permission to d/w his daughter as we've had several go arounds on this versus d/w CKD disability case manager * Telephone Encounter - Gabby Sosa RN - 12/26/2022 2:50 PM EDT Junior Electrical Engineer reached out today to schedule follow up appoointment with Dr Patel in February. [facility] Shankar on 12/24/22. Please review this consult note. Pt asked appointment scheduler whether he needed this appointment or whether he should just be seeing Oncology. Please review. documented in this encounter Plan of Treatment Upcoming Encounters Date Type Specialty Care Team Description 12/31/2022 Pharmacy Pharmacy Clinic, [place] [address] [facility] [place] [address] 01/21/2023 Appointment Radiology 01/21/2023 Office Visit Urology Jael Nino MD [address] [place] [address] 01/23/2023 Office Visit Nephrology PatelRosy fine MD [address] [place] [address] 01/29/2023 Imaging Radiology 02/05/2023 Telemedicine Urology Cameron Romeo MD 27 [facility] [place] [address] [facility] [address] Health Maintenance Due Date Last [...] filedocumented as of this encounter Care Teams Guest Services Attendant Relationship Specialty Start Date End Date Jody Arora MD [address] [place] [address] [place] [id number] PCP - General Family Medicine 11/21/21 documented as of this encounter
--- OUTSIDE RECORDS SUMMARY | 2023-05-15 03:36 | External Medical Summary | Summary of Care ---
Author Name Unknown Organization [facility] Address [address] [place] [address] Phone [phone] Care Team Providers Care Supervisor Anodizing Name Role Phone Jody Arora MD Primary Care Provide r Reason for Visit * Reason Onset Date Comments Advice 12/26/2022 Encounter Details Date Type Department Care Team Description 12/26/2022 Telephone Nephrology, M[place] [address] [facility] [place] [address] Rosy Patel MD [address] [facility] [place] [address] Advice Allergies No known active allergiesdocumented as of this encounter (statuses as of 12/27/2022) Medications Medication Sig Dispensed Refills Start Date [...] INSOMNIA 30 Tablet 1 11/07/2022 Active Nystatin 303723 UNIT/GM External CreamIndications:Ski n yeast infection Apply [...] as of this encounter (statuses as of 12/27/2022) Active Problems Problem Noted Date Papillary renal [...] lacunar stroke diagnosed on head CT in [place] Apr 2017. Follow up MRI [facility] no infarct. 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 Pt wasseen at [facility] Dr Shankar on 12/24/22. Please review this consult note. Pt asked fulling mill operator whether he needed this appointment or whether he should just be seeing Oncology. Please review. documented in this encounter Plan of Treatment Upcoming Encounters Date Type Specialty Care Team Description 12/28/2022 Telemedicine Urology Cameron Romeo MD [address] [place] [address] [place] [id number] 7, Telemed [facility] Urology Ex Rm 132 [facility] [place] [address] 12/31/2022 Pharmacy Pharmacy Clinic, [address] [place] [address] 01/21/2023 Appointment Radiology 01/21/2023 Office Visit Urology Jael Nino MD [address] [facility] [place] [address] 04/01/2023 Office Visit Nephrology Deirdre Salinas MD [address] [facility] [place] [address] Health Maintenance Due Date Last [...] filedocumented as of this encounter Care Teams Supervisor Anodizing Relationship Specialty Start Date End Date Jody Arora MD [address] [place] [address] [place] [address] PCP - General Family Medicine 11/21/21 documented as of this encounter
--- OUTSIDE RECORDS SUMMARY | 2023-05-15 03:36 | External Medical Summary | Summary of Care ---
Author Name Unknown Organization [facility] Address [address] [facility] [address] Phone [phone] Care Team Providers Care Print Cutter Name Role Phone Jody Arora MD Primary Care Provide r Reason for Referral * Evaluate & Treat - Unlimited Visits (Within 10 days (routine)) - Authorized Specialty Diagnoses / Procedures Referred By Adam robertson Referred To Contact Urology Diagnoses Papillary adenocarcinoma of left kidney (HCC) Suzette Shankar MD [address] [place] [address] Referral ID Status Reason Start Date Expiration Date Visits Requested Visits Authorized [id number] Authorized Specialty Services Required 3 999 999 Question Answer Referral Priority Within 10 days (routine) Where should this appointment be scheduled? [facility] What is the patient being referred for? Other conditions Comments Notes scanned into Epic 12/26/22 CRB Encounter Details Date Type Department Care Team Description 12/26/2022 Orders Only Access Center, [address] *DO NOT REMOVE THIS DEPARTMENT* [place] [address] Request, External Referral Papillary adenocarcinoma of left kidney (HCC)* Allergies No known active allergiesdocumented as of this encounter (statuses as of 12/26/2022) Medications Medication Sig Dispensed Refills Start Date [...] (HCC),COPD, group C, by GOLD 2017 classification ([facility]) Inhale 3 mL via nebulizer every [...] INSOMNIA 30 Tablet 1 11/07/2022 Active Nystatin 956794 UNIT/GM External CreamIndications:Ski n yeast infection Apply [...] as of this encounter (statuses as of 12/26/2022) Active Problems Problem Noted Date Papillary renal [...] renal mass 07/11/2017 Overview: 2018 biopsy at [facility]/Only per patient "kidney cancer". States he was advised he was not a surgical candidate. Carotid stenosis, right 07/11/2017 History of stroke 07/11/2017 Overview: TIA vs lacunar stroke diagnosed on head CT in [place] Apr 2017. Follow up MRI [facility] no infarct. Anxiety 07/11/2017 HTN, goal below 140/90 08/02/2015 Coronary artery disease Dyslipidemia, goal LDL below 100 documented as of this encounter (statuses as of 12/26/2022) Resolved Problems Problem Noted Date Resolved Date [...] as of this encounter (statuses as of 12/26/2022) Immunizations Name Administration Dates Next Due COVID-19 [...] 12/28/2022 Telemedicine Urology Cameron Romeo MD 27 [facility] [address] [place] [address] 7, Telemed [facility] Urology Ex 132 [facility] [place] [address] 12/31/2022 Pharmacy Pharmacy Clinic, [facility] [address] [facility] [place] [address] 04/01/2023 Office Visit Nephrology Deirdre [facility] [place] [address] Scheduled Referrals Name Type Priority Associated Diagnoses Orde r Schedule UROLOGY REFERRAL OP Referral Within 10 days (routine) Papillary adenocarcinoma of left kidney (HCC) Ordered: 12/26/2022 Health Maintenance Due Date Last Done Comments [...] as of this encounter Visit Diagnoses Diagnosis Papillary adenocarcinoma of left kidney (HCC)- Primary documented in this encounter Care Teams Print Cutter Relationship Specialty Start Date End Date Jody Arora MD [address] [place] [address] [place] [address] PCP - General Family Medicine 11/21/21 documented as of this encounter
--- OUTSIDE RECORDS SUMMARY | 2023-05-15 03:36 | External Medical Summary | Summary of Care ---
Author Name Unknown Organization [facility] Address [address] [place] [address] Phone [phone] Care Team Providers Care Software Release Engineer Name Role Phone Jody Arora MD Primary Care Provide r Reason for Visit * Reason Onset Date Comments Advice 12/26/2022 Encounter Details Date Type Department Care Team Description 12/26/2022 Telephone Nephrology, Mitzi [place] 200 [facility] [place] [address] Rosy Patel MD 200 [facility] [place] [address] Advice Allergies No known active allergiesdocumented as [...] (HCC),COPD, group C, by GOLD 2017 classification ([facility]) Inhale 3 mL via nebulizer [...] INSOMNIA 30 Tablet 1 11/07/2022 Active Nystatin 249640 UNIT/GM External CreamIndications:Ski n yeast infection Apply [...] lacunar stroke diagnosed on head CT in [place] Apr 2017. Follow up MRI [facility] [...] Sosa RN - 12/26/2022 2:50 PM EDT Leaf Sticker reached out today to schedule follow up appoointment with Dr Patel in February. Pt wasseen at [facility] Dr Shankar on 12/24/22. Please review this consult note. Pt asked supervisor contact and service clerks whether he needed this appointment or whether he should just be seeing Oncology. Please review. documented in this encounter Plan of Treatment Upcoming Encounters Date Type Specialty Care Team Description 12/28/2022 Telemedicine Urology Cameron Romeo MD 27 [facility] 270 [place] [address] 7, Telemed [facility] Ex 132 [facility] [address] 12/31/2022 Pharmacy Pharmacy Clinic, [facility] [address] [place] [address] 04/01/2023 Office Visit Nephrology Deirdre [facility]inas [facility] 400 [facility] [place] [address] Health Maintenance Due Date Last Done Comments Alpha-1 Antitrypsin 1958 Hepatitis B (2 of 3 - 19+ 3-dose series) 02/05/2018 01/08/2018 *COPD SEVERITY VERIFIED BY PFT 07/16/2020 Depression Screening 02/28/2021 02/29/2020 COVID-19 Vaccine (4 - 2023-24 season) 2022 01/10/2021, 05/24/2020, 04/26/2020 Influenza Vaccine [...] filedocumented as of this encounter Care Teams Software Release Engineer Relationship Specialty Start Date End Date Jody Arora MD [address] [place] [address] [place] [address] PCP - General Family Medicine 11/21/21 documented as of this encounter
--- OUTSIDE RECORDS SUMMARY | 2023-05-15 03:36 | External Medical Summary | Summary of Care ---
Author Name Unknown Organization [facility] Address [address] [place] [address] Phone [phone] Care Team Providers Care Supervisor Of Operations Name Role Phone Jody Arora MD Primary Care Provide r Reason for Visit * Reason Onset Date Comments case management 12/25/2022 CKD CM pt f/u Encounter Details Date Type Department Care Team Description 12/25/2022 Telephone Care Coordination [address] [place] [address] Smita Garcia, turfgrass management professor (CKD CM pt f/u) Allergies No known active allergiesdocumented as of [...] INSOMNIA 30 Tablet 1 11/07/2022 Active Nystatin 501954 UNIT/GM External CreamIndications:Ski n yeast infection Apply [...] renal mass 07/11/2017 Overview: 2018 biopsy at [facility] per patient "kidney cancer". States he was advised he was not a surgical candidate. Carotid stenosis, right 07/11/2017 History of stroke 07/11/2017 Overview: TIA vs lacunar stroke diagnosed on head CT in [place] Apr 2017. Follow up MRI [facility] no infarct. Anxiety 07/11/2017 HTN, goal [...] encounter Miscellaneous Notes * Telephone Encounter - Joseline Ocampo RN - 12/27/2022 1:52 PM EDT Contacted patient to inquire if he was keeping his appointment with Dr. Romeo tomorrow and let decide if referral to Dr. Nino is needed. Patient states he will see Dr. Romeo tomorrowbut also wants to be scheduled with Dr. Nino. He currently has an MRI schedule on 02/02/23 but is requesting to have the MRI and appointment with Dr. Nino on the same day. Will have our schedu ling staff contact patient to arrange a sooner appointment. Joseline Ocampo RN, BSN 12/27/2022 1:54 PM * Telephone Encounter - Joseline Ocampo RN - 12/26/2022 6:01 PM EDT Noted patient is scheduled with Dr. Romeo on 12/28/22 but if patient wanting to present to [place] for evaluation, patient will need repeat imaging to include MRI and labs. Patient can be scheduledwith Dr. Nino in the next two weeks for an appointment. Joseline Ocampo RN, BSN 12/26/2022 6:02 PM * Telephone Encounter - Smita Garcia RN - 12/25/2022 10:58 AM EDT CKD CM F/u with pt re: appts with urology. Per Dr. Patel. Dr. Jael Nino [facility] urology does cancer . Pt made aware of this and sees the benefit for going to [place] if needed for appt. Pt awaiting scheduling to contact him. 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 Patel requested that CM reach out to Dr. Nino' staff re: above. Smita Garcia RN Kidney Transitions Specialist CKD Commissions Analyst documented in this encounter Plan of Treatment Upcoming Encounters Date Type Specialty Care Team Description 12/28/2022 Telemedicine Urology Cameron Romeo MD [address] [place] [address] [place] [address] 7, Telemed [facility] Urology Ex Rm 132 [facility] [place] [address] 12/31/2022 Pharmacy Pharmacy Clinic, [facility] [address] [place] [address] 02/02/2023 Imaging Radiology 04/01/2023 Office Visit Nephrology Deirdre Salinas MD 400 [facility] [place] [address] Health Maintenance Due Date Last Done [...] as of this encounter Care Teams Supervisor Of Operations Relationship Specialty Start Date End Date Jody Arora MD [address] [place] [address] [place] [address] PCP - General Family Medicine 11/21/21 documented as of this encounter
--- OUTSIDE RECORDS SUMMARY | 2023-05-15 03:36 | External Medical Summary | Summary of Care ---
Author Name Unknown Organization [facility] Address [address] [place] [address] Phone [phone] Care Team Providers Care Color Dipper Name Role Phone Jody Arora MD Primary Care Provide r Reason for Visit * Reason Onset Date Comments case management 12/25/2022 CKD CM pt f/u Encounter Details Date Type Department Care Team Description 12/25/2022 Telephone Care Coordination [address] [place] [address] Smita Garcia, management trainee program stores (CKD CM pt f/u) Allergies No known [...] INSOMNIA 30 Tablet 1 11/07/2022 Active Nystatin 141547 UNIT/GM External CreamIndications:Ski n yeast infection Apply [...] lacunar stroke diagnosed on head CT in [place] Apr 2017. [facility] [...] but if patient wanting to present to [place] for evaluation, patient will need repeat imaging to include MRI and labs. Patient can be scheduledwith Dr. Nino in the next two weeks for an appointment. Joseline Ocampo RN, BSN 12/26/2022 6:02 PM * Telephone Encounter - Smita Garcia RN - 12/25/2022 10:58 AM EDT CKD CM F/u with pt re: appts with urology. Per Dr. Patel. Dr. Jael Nino [facility] urology does cancer . Pt made aware of this and sees the benefit for going to [place] if needed for appt. Pt awaiting scheduling to contact him. 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 Manuel urology annually Dr Shankar 12/24 note scanned in chart as is u/s >> new L upper 2.2 cm cystic mass for which Raad comments there will be [facility] urology f/u Note in chart yesterday trying to get pt in at [facility]; no appt yet Dr. Patel requested that CM reach out to Dr. Nino' staff re: above. Smita Garcia RN Kidney Transitions Specialist CKD Elementary Principal documented in this encounter Plan of Treatment Upcoming Encounters Date Type Specialty Care Team Description 12/28/2022 Telemedicine Urology Cameron Romeo MD [address] [place] [address] [place] [address] 7, Telemed [facility] Urology Ex Rm [address] [place] [address] 12/31/2022 Pharmacy Pharmacy Clinic, Anemia [address] [facility] [address] 04/01/2023 Office Visit Nephrology Deirdre Salinas MD [address] [place] [address] Health Maintenance Due Date Last Done Comments Alpha-1 Antitrypsin 1958 Hepatitis B (2 of 3 - 19+ 3-dose series) 02/05/2018 01/08/2018 *COPD SEVERITY VERIFIED BY PFT 07/16/2020 Depression Screening 02/28/2021 02/29/2020 COVID-19 Vaccine ( season) 2022 01/10/2021, 05/24/2020, 04/26/2020 Influenza Vaccine (FLU shot) (#1) 2022 12/07/2021, 12/05/2020, 12/18/2019, Additional history exists GFR 06/25/2023 12/24/2022, 1007/2022, 11/30/2022, Additional history exists Albumin/Creatinine Ratio 08/09/2023 [...] filedocumented as of this encounter Care Teams Color Dipper Relationship Specialty Start Date End Date Jody Arora MD [address] [place] [address] [place] [address] PCP - General Family Medicine 11/21/21 documented as of this encounter
--- OUTSIDE RECORDS SUMMARY | 2023-05-15 03:36 | External Medical Summary | Summary of Care ---
Author Name Unknown Organization [facility] Address [address] [place] [address] Phone [phone] Care Team Providers Care Barrelhead Inspector Name Role Phone Jody Arora MD Primary Care Provide r Reason for Visit * Reason Onset Date Comments case management 12/25/2022 CKD CM pt f/u Encounter Details Date Type Department Care Team Description 12/25/2022 Telephone Care Coordination [address] [place] [address] Smita Garcia, rental management trainee (CKD CM pt f/u) Allergies No known [...] INSOMNIA 30 Tablet 1 11/07/2022 Active Nystatin 499354 UNIT/GM External CreamIndications:Ski n yeast infection Apply [...] lacunar stroke diagnosed on head CT in [place] Apr 2017. Follow [facility] MRI [facility] no infarct. Anxiety 07/11/2017 [...] urology. Per Dr. Patel. Dr. Jael Nino [facility] urology does cancer . Pt made aware of this and sees the benefit for going to [place] if needed for appt. Pt awaiting scheduling to contact him. 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 Patel requested that CM reach out to Dr. Nino' staff re: above. Smita Garcia RN Kidney Transitions Specialist CKD Striper Spray Gun documented in this encounter Plan of Treatment Upcoming Encounters Date Type Specialty Care Team Description 12/28/2022 Telemedicine Urology Cameron Romeo MD [address] [place] [address] [place] [address] 7, Telemed [facility] Urology Ex Rm 132 [facility] [place] [address] 12/31/2022 Pharmacy Pharmacy Clinic, [facility] [address] [place] [address] 04/01/2023 Office Visit Nephrology Deirdre Salinas MD [address] [place] [address] [place] [address] Health Maintenance Due Date [...] filedocumented as of this encounter Care Teams Barrelhead Inspector Relationship Specialty Start Date End Date Jody Arora MD [address] [place] [address] [place] [address] PCP - General Family Medicine 11/21/21 documented as of this encounter
--- OUTSIDE RECORDS SUMMARY | 2023-05-15 03:36 | External Medical Summary | Summary of Care ---
Author Name Unknown Organization [facility] Address [address] [place] [address] Phone [phone] Care Team Providers Care Tennis Net Maker Name Role Phone Jody Arora MD Primary Care Provide r Reason for Visit * Reason Onset Date Comments case management 12/26/2022 CKD CM Encounter Details Date Type Department Care Team Description 12/26/2022 Envelope Press Operator Telephone Nephrology, [address] [address] Smita Garcia, financial management (CKD CM ) Allergies No known active allergiesdocumented as of [...] INSOMNIA 30 Tablet 1 11/07/2022 Active Nystatin 654542 UNIT/GM External CreamIndications:Ski n yeast infection Apply [...] renal mass 07/11/2017 Overview: 2018 biopsy at [facility] [place], operated by [facility] per patient "kidney cancer". States he was advised he was not a surgical candidate. Carotid stenosis, right 07/11/2017 History of stroke 07/11/2017 Overview: TIA vs lacunar stroke diagnosed on head CT in [place] Apr 2017. Follow up MRI [facility] no infarct. Anxiety 07/11/2017 HTN, [...] 12/2017. Dr aZragoza. Anemia of chronic renal failure, stage 3 [...] Telephone Encounter - Smita Garcia RN - 12/26/2022 4:02 PM EDT CKD CM Received several calls from pt this morning re: appt with urologist at [facility]. Pt said that he was offered an appt at via televideo with Dr. Romeo. he was unsure if he wantedto do that. Reminded him of our conversation yesterday re: wanting to know what was going on as soon as possible. Encouraged him to go to the appt so he could know what was going on and if needed Dr. Romeo would make the referral to him to oncologist. He was in agreement. He called another time to ask what kind of doctor Dr. Romeo was so he could set up the appt. Plan; will f/u with pt as previously noted. Smita Garcia RN Kidney Transitions Specialist CKD Envelope Press Operator documented in this encounter Plan of Treatment Upcoming Encounters Date Type Specialty Care Team Description 12/28/2022 Telemedicine Urology Cameron Romeo MD 27 [facility] [address] [place] [id number] 7, Telemed [facility] Ex Rm 132 [facility] [address] 12/31/2022 Pharmacy [facility] [address] 04/01/2023 Office Visit Nephrology Deirdre Salinas MD [address] [place] [address] [place] [address] Health Maintenance Due Date [...] filedocumented as of this encounter Care Teams Tennis Net Maker Relationship Specialty Start Date End Date Jody Arora MD [address] [place] [address] [place] [address] PCP - General Family Medicine 11/21/21 documented as of this encounter
--- OUTSIDE RECORDS SUMMARY | 2023-05-15 03:37 | External Medical Summary | Summary of Care ---
Author Name Unknown Organization [facility] Address [address] [place] [address] Phone [phone] Care Team Providers Care Mail Clerks Supervisor Name Role Phone Jody Arora MD Primary Care Provide r Encounter Details Date Type Department Care Team Description 12/24/2022 Orders Only Family Medicine [address] [address] Jody Arora MD [address] [place] [address] [place] [address] Allergies No known active allergiesdocumented as of this encounter (statuses as of 12/24/2022) Medications Medication Sig Dispensed Refills Start Date [...] INSOMNIA 30 Tablet 1 11/07/2022 Active Nystatin 993277 UNIT/GM External CreamIndications:Ski n yeast infection Apply [...] as of this encounter (statuses as of 12/24/2022) Active Problems Problem Noted Date Papillary renal [...] renal mass 07/11/2017 Overview: 2018 biopsy at [facility] per patient "kidney cancer". States he was advised he was not a surgical candidate. Carotid stenosis, right 07/11/2017 History of stroke 07/11/2017 Overview: TIA vs lacunar stroke diagnosed on head CT in [place] Apr 2017. Follow up MRI [facility] no infarct. Anxiety 07/11/2017 HTN, goal below 140/90 08/02/2015 Coronary artery disease Dyslipidemia, goal LDL below 100 documented as of this encounter (statuses as of 12/24/2022) Resolved Problems Problem Noted Date Resolved Date [...] as of this encounter (statuses as of 12/24/2022) Immunizations Name Administration Dates Next Due COVID-19 [...] Encounters Date Type Specialty Care Team Description 12/24/2022 Pharmacy Pharmacy Clinic, Anemia [address] [place] [address], [place] [id number] Need for hepatitis B vaccination* 12/31/2022 Pharmacy Pharmacy Clinic, Anemia [address] [place] [address] 04/01/2023 Office Visit Nephrology Deirdre Salinas MD [address] [place] [address] Health Maintenance Due Date Last [...] 08/09/2023 023, 12/07/2021, 08/10/2021, Additional history exists Hgb 12/01/2023 11/30/2022, 04/0 07/2022, 06/05/2022, Additional history exists Nephrology Referral 12/01/2023 11/30/2022 O2 ASSESSMENT COMPLETED IN PAST YEAR FOR COPD 12/01/2023 11/30/2022 PTH 12/01/2023 11/30/2022, 06/17, 07/19/2021, Additional history exists Phosphate 12/01/2023 11/30/2022, 06/17, 06/20/2022, Additional history exists DTaP,Tdap,and Td Vaccines [...] Priority Date/Time Associated Diagnosis Comments CHEMISTRY-OUTSIDE Routine 12/24/2022 documented in this encounter Results * (ABNORMAL) CHEMISTRY-OUTSIDE (12/24/2022) Not all results display below - see scan for full detail OUTSIDE LAB (SEE SCANNED REPORT) Comment:SEE SCAN: CMP, IRON, TIBC, LDH, FERRITIN, FOLATE, VIT B12 CREATININE-OUTSID E LAB 3.75(A) 0.70 - 1.30 MG/DL OUTSIDE LAB (SEE SCANNED REPORT) EGFR-OUTSIDE LAB 15(A) >=60 ML/MIN/1.7 3M2 OUTSIDE LAB (SEE SCANNED REPORT) POTASSIUM-OUTSIDE LAB 4.2 3.5 - 5.1 MMOL/L OUTSIDE LAB (SEE SCANNED REPORT) GLUCOSE-OUTSIDE LAB 134(A) 70 - 110 MG/DL OUTSIDE LAB (SEE SCANNED REPORT) HOURS FASTING [...] LAB OUTSIDE LAB (SEE SCANNED REPORT) HEMOGLOBIN, G0Z-TOYOGZO LAB OUTSIDE LAB (SEE SCANNED REPORT) PHOSPHORUS-OUTSID E LAB OUTSIDE LAB (SEE SCANNED REPORT) PTH-OUTSIDE LAB OUTS JULIA LAB (SEE SCANNED REPORT) MICROALBUMIN RATIO-OUTSIDE LAB OUTSIDE LA B (SEE SCANNED REPORT) PROTEIN, UA-OUTSIDE LAB OUTSIDE LAB (SEE SCANNED REPORT) HEMOGLOBIN-OUTSID E LAB OUTSIDE LAB (SEE SCANNED REPORT) 12/24/2022 Suzette Shankar MD LABORATORY OUTSIDE LAB (SEE SCANNED REPORT) documented in this encounter Care Teams Mail Clerks Supervisor Relationship Specialty Start Date End Date Jody Arora MD [address] [place] [address] [place] [address] PCP - General Family Medicine 11/21/21 documented as of this encounter
--- OUTSIDE RECORDS SUMMARY | 2023-05-15 03:37 | External Medical Summary | Summary of Care ---
Author Name Unknown Organization [facility] Address [address] [place] [address] Phone [phone] Care Team Providers Care County Demonstrator Name Role Phone Jody Arora MD Primary Care Provide r Reason for Visit * Reason Onset Date Comments case management 12/25/2022 CKD CM pt concer n/need Encounter Details Date Type Department Care Team Description 12/25/2022 Ingot Header Telephone Care Coordination [address] [place] [address] Smita Garcia, pain management nurse practitioner (CKD CM pt concern/need) Allergies No known active allergiesdocumented as of [...] INSOMNIA 30 Tablet 1 11/07/2022 Active Nystatin 103879 UNIT/GM External CreamIndications:Ski n yeast infection Apply [...] mass 07/11/2017 Overview: [address] [facility] per patient "kidney cancer". States he was advised he was not a surgical candidate. Carotid stenosis, right 07/11/2017 History of stroke 07/11/2017 Overview: TIA vs lacunar stroke diagnosed on head CT in [place] Apr 2017. Follow up MRI [facility] no infarct. Anxiety 07/11/2017 HTN, goal [...] encounter Miscellaneous Notes * Telephone Encounter - OMLLY Silverman - 12/26/2022 10:01 AM EDT Patient scheduled with Dr. Romeo on 12/28/22. * Telephone Encounter - Albina Dugan LPN - 12/25/2022 12:48 PM EDT Scot: Per Dr Romeo. Can contact patient with next available [facility] appointment. I suspect findings will not require acute intervention based on previous observation and size of lesion. 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 which has being followed per pt report by Dr Shankar andhistorically by [facility] urology annually Dr Shankar 12/24 note scanned in chart as is u/s >> new L upper 2.2 cm cystic mass for which Raad comments there will be [facility] urology f/u Note in chart yesterday trying to get pt in at [facility]; no appt yet RECOMMEND -contact also Dr Jael Nino [facility] urology if pt can't get in soon enough at [facility]; pts like this often end up at least w/ eval by Dr Nino anyway in my experience >>PLS reach out to Dr Nino' staff re above >pls make it clear appt w/ me is NOT in place of urology eval which they are still trying to setup >> pt was inappropriately set up to f/u w/ my partner and we are fixing that. Dr Ulysses STEPHENSON; copying [facility] and [facility] urologists as well * Telephone Encounter - Smita Garcia RN - 12/25/2022 10:15 AM EDT CKD CM pt concern/need Dr. Patel, Pt called in, said that he had an appt yesterday for an US (done at [facility]) on kidneys. He indicated that they found something and said they were referring him to oncology. He got an apptand then it was cancelled and changed to an appt with you (Dr. Patel). He was questioning why? Forward results to you (Dr. Patel), he is wondering about the referral to oncology or for further testing and requesting referrals be made TAMI. Please advise Thank you, Smita Garcia RN Kidney Transitions Specialist CKD Ingot Header documented in this encounter Plan of Treatment Upcoming Encounters Date Type Specialty Care Team Description 12/28/2022 Telemedicine Urology Cameron Romeo MD [address] [facility] [address] [place] [address] 7, Telemed [facility] [address] 12/31/2022 [facility] [address] [facility] [address] 04/01/2023 Office Visit Nephrology Deirdre Salinas MD [address] [place] [address] [place] [address] Health Maintenance Due Date [...] filedocumented as of this encounter Care Teams County Demonstrator Relationship Specialty Start Date End Date Jody Arora MD [address] [place] [address] [place] [address] PCP - General Family Medicine 11/21/21 documented as of this encounter
--- OUTSIDE RECORDS SUMMARY | 2023-05-15 03:37 | External Medical Summary | Summary of Care ---
Author Name Unknown Organization [facility] Address [address] [place] [address] Phone [phone] Care Team Providers Care Gas Line Repairer Name Role Phone Jody Arora MD Primary Care Provide r Reason for Visit * Reason Onset Date Comments case management 12/25/2022 CKD CM pt concer n/need Encounter Details Date Type Department Care Team Description 12/25/2022 Hand Touch Up Painter Telephone Care Coordination [address] [place] [address] Smita Garcia, fire management specialist (CKD CM pt concern/need) Allergies No known active allergiesdocumented as of this encounter (statuses as of 12/25/2022) Medications Medication Sig Dispensed Refills Start Date [...] INSOMNIA 30 Tablet 1 11/07/2022 Active Nystatin 173722 UNIT/GM External CreamIndications:Ski n yeast infection Apply [...] as of this encounter (statuses as of 12/25/2022) Active Problems Problem Noted Date Papillary renal [...] renal mass 07/11/2017 Overview: 2018 biopsy at [facility] per patient "kidney cancer". States he was advised he was not a surgical candidate. Carotid stenosis, right 07/11/2017 History of stroke 07/11/2017 Overview: TIA vs lacunar stroke diagnosed on head CT in [place] Apr 2017. Follow up MRI [facility] no infarct. Anxiety 07/11/2017 HTN, goal below 140/90 08/02/2015 Coronary artery disease Dyslipidemia, goal LDL below 100 documented as of this encounter (statuses as of 12/25/2022) Resolved Problems Problem Noted Date Resolved Date [...] as of this encounter (statuses as of 12/25/2022) Immunizations Name Administration Dates Next Due COVID-19 [...] encounter Miscellaneous Notes * Telephone Encounter - Albina Dugan LPN - 12/25/2022 12:48 PM EDT Scot: Per Dr Romeo. Can contact patient with next available [facility] appointment. I suspect findings will not require acute intervention based on previous observation and size of lesion. 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 Dr Ulysses STEPHENSON; copying [facility] and [facility] urologists as well * Telephone Encounter - Smita Garcia RN - 12/25/2022 10:15 AM EDT CKD CM pt concern/need Dr. Patel, Pt called in, said that he had an appt yesterday for an US (done at [facility]) on kidneys. He indicated that they found [...] Smita Garcia RN Kidney Transitions Specialist CKD Hand Touch Up Painter documented in this encounter Plan of Treatment Upcoming Encounters Date Type Specialty Care Team Description 12/31/2022 Pharmacy Pharmacy Clinic, Anemia [address] [place] [address] 04/01/2023 Office Visit Nephrology Deirdre Salinas MD [address] [place] [address] Health Maintenance Due Date Last Done [...] as of this encounter Care Teams Gas Line Repairer Relationship Specialty Start Date End Date Jody Arora MD [address] [place] [address] [place] [address] PCP - General Family Medicine 11/21/21 documented as of this encounter
--- OUTSIDE RECORDS SUMMARY | 2023-05-15 03:37 | External Medical Summary | Summary of Care ---
Author Name Unknown Organization [facility] Address [address] [place] [address] Phone [phone] Care Team Providers Care Measurer Name Role Phone Jody Arora MD Primary Care Provide r Reason for Visit * Reason Onset Date Comments Test Results 12/21/2022 Encounter Details Date Type Department Care Team Description 12/21/2022 Telephone Nephrology, [facility] [address] [place] [address] Rosy Patel MD [address] [place] [address] Test Results Allergies No known active allergiesdocumented [...] INSOMNIA 30 Tablet 1 11/07/2022 Active Nystatin 421779 UNIT/GM External CreamIndications:Sk in yeast infection Apply [...] HOLD MEDICATION.. 180 Tablet 3 12/24/2022 Active NIFEdipine ER Osmotic Release 60 MG [...] lacunar stroke diagnosed on head CT in [place] Apr 2017. Follow up MRI [facility] no infarct. Anxiety 07/11/2017 HTN, [...] Telephone Encounter - Gabby Sosa RN - 12/21/2022 4:33 PM EDT Repair Miller-Please cancel appointment with Dr Salinas and call pt to be scheduled on March 06.with Dr Patel. * Telephone Encounter - Gabby Sosa RN - 12/21/2022 4:23 PM EDT TE with pt regarding lab results and medication changes. Reviewed need to take Sodium Bicarb as directed. Furosemide increased to 60mg (1 1/2 tablet) and he repeated this direction back to me. He is also aware to hold Nifedipine. Repeat labs in 1 week. documented in this encounter Plan of Treatment Upcoming Encounters Date Type Specialty Care Team Description 12/24/2022 [facility] [address] [facility] [address] 04/01/2023 Office Visit Nephrology Deirdre Salinas MD [address] [facility] [place] [address] Scheduled Orders Name Type Priority Associated Diagnoses Orde r Schedule BASIC METABOLIC PANEL Lab Routine Kidney disease, chronic, stage IV (GFR 15-29 ml/min) (HCC) Expected: 12/28/2022 (Approximate), Expires: 12/22/2023 Health Maintenance Due Date Last Done Comments Alpha-1 Antitrypsin 1958 Hepatitis B (2 of 3 - 19+ 3-dose series) 02/05/2018 01/08/2018 *COPD SEVERITY VERIFIED BY PFT 07/16/2020 Depression Screening 02/28/2021 02/29/2020 COVID-19 Vaccine ( season) 2022 01/10/2021, 05/24/2020, 04/26/2020 Influenza Vaccine (FLU shot) (#1) 2022 12/07/2021, 12/05/2020, 12/18/2019, Additional history exists GFR 06/21/2023 12/20/2022, 11/16, 08/08/2022, Additional history exists Albumin/Creatinine Ratio 08/09/2023 023, 12/07/2021, 08/10/2021, Additional history exists Hgb 12/01/2023 11/30/2022, 04/0 07/2022, 06/05/2022, Additional history exists Nephrology Referral 12/01/2023 11/30/2022 O2 ASSESSMENT COMPLETED IN PAST YEAR FOR COPD 12/01/2023 11/30/2022 PTH 12/01/2023 11/30/2022, 06/17, 07/19/2021, Additional history exists Phosphate 12/01/2023 11/30/2022, 2 09/2022, 06/20/2022, Additional history exists DTaP,Tdap,and Td Vaccines [...] (severe) documented in this encounter Care Teams Measurer Relationship Specialty Start Date End Date Jody Arora MD [address] [place] [address] [place] [address] PCP - General Family Medicine 11/21/21 documented as of this encounter
--- OUTSIDE RECORDS SUMMARY | 2023-05-15 03:37 | External Medical Summary | Summary of Care ---
Author Name Unknown Organization [facility] Address [address] [place] [address] Phone [phone] Care Team Providers Care Instrument Repair Specialist Name Role Phone Jody Arora MD Primary Care Provide r Reason for Visit * Reason Onset Date Comments case management 12/25/2022 CKD CM pt concer n/need Encounter Details Date Type Department Care Team Description 12/25/2022 Stave Planer Tender Telephone Care Coordination [address] [place] [address] Smita Garcia, director of property management (CKD CM pt concern/need) Allergies No known [...] INSOMNIA 30 Tablet 1 11/07/2022 Active Nystatin 129106 UNIT/GM External CreamIndications:Ski n yeast infection Apply [...] mass 07/11/2017 Overview: 2018 biopsy at [facility] per patient "kidney cancer". States he was advised he was not a surgical candidate. Carotid stenosis, right 07/11/2017 History of stroke 07/11/2017 Overview: TIA vs lacunar stroke diagnosed on head CT in [place] Apr 2017. Follow up MRI [facility] no infarct. Anxiety 07/11/2017 HTN, goal [...] pt report by Dr Shankar andhistorically by [facility] urology annually Dr Shankar 12/24 note scanned in chart as is u/s >> new L upper 2.2 cm cystic mass for which Raad comments there will be [facility] urology f/u Note in chart yesterday trying to get pt in at [facility]; no appt yet RECOMMEND -contact also Dr Jael Nino [facility] urology if pt can't get in soon enough at [facility]; pts like this often end up at [...] are fixing that. Dr Ulysses STEPHENSON; copying [facility] and [facility] urologists as well * Telephone Encounter - Smita Garcia RN - 12/25/2022 10:15 AM EDT CKD CM pt concern/need Dr. Patel, Pt called in, said that he had an appt yesterday for an US (done at [facility]) on kidneys. He indicated that they [...] Smita Garcia RN Kidney Transitions Specialist CKD Stave Planer Tender documented in this encounter Plan of Treatment Upcoming Encounters Date Type Specialty Care Team Description 12/31/2022 Pharmacy Pharmacy Clinic, Anemia [address] [place] [address] 04/01/2023 Office Visit Nephrology Deirdre Salinas MD [address] [facility] [address] Health Maintenance Due Date Last Done [...] filedocumented as of this encounter Care Teams Instrument Repair Specialist Relationship Specialty Start Date End Date Jody Arora MD [address] [place] [address] [place] [address] PCP - General Family Medicine 11/21/21 documented as of this encounter
--- OUTSIDE RECORDS SUMMARY | 2023-05-15 03:37 | External Medical Summary | Summary of Care ---
Author Name Unknown Organization [facility] Address [address] [place] [address] Phone [phone] Care Team Providers Care Creative Services Writer Name Role Phone Jody Arora MD Primary Care Provide r Encounter Details Date Type Department Care Team Description 12/24/2022 Result Scan Unspecified Department <No scans attached> Allergies No known active allergiesdocumented as of [...] INSOMNIA 30 Tablet 1 11/07/2022 Active Nystatin 271808 UNIT/GM External CreamIndications:Ski n yeast infection Apply [...] Not immune to hepatitis B virus 01/09/20 Anemia of chronic renal failure, stage 4 (severe) 10/29/2017 Overview: Per CKD protocol #[address] Shankar Left renal mass 07/11/2017 Overview: 2018 biopsy at [facility] per patient "kidney cancer". States he was advised he was not a surgical candidate. Carotid stenosis, right 07/11/2017 History of stroke 07/11/2017 Overview: TIA vs lacunar stroke diagnosed on head CT in [place] Apr 2017. Follow [facility] [...] 12/24/2022 Pharmacy Pharmacy Clinic, Anemia [address] [place] [address] Need for hepatitis B vaccination* 12/31/2022 Pharmacy Pharmacy Clinic, Anemia [address] [facility] [place] [address] 04/01/2023 Office Visit Nephrology [facility]inas [facility] [address] [facility] [place] [place] [address] Health Maintenance Due Date Last Done [...] 08/10/2021, Additional history exists Hgb 12/01/2023 11/30/2022, 040 07/2022, 06/05/2022, Additional history exists Nephrology Referral 12/01/2023 11/30/2022 O2 ASSESSMENT COMPLETED IN PAST YEAR FOR COPD 12/01/2023 11/30/2022 PTH 12/01/2023 11/30/2022, 04/2 09/2022, 07/19/2021, Additional history exists Phosphate 12/01/2023 11/30/2022, [...] Procedure Name Priority Date/Time Associated Diagnosis Comments RADIOLOGY SCANNED RESULT 12/24/2022 documented in this encounter Results * RADIOLOGY SCANNED RESULT (12/24/2022) 12/24/2022 No Physician Data Unknown DIAGNOSTIC RAD IOLOGY SERVICES documented in this encounter Care Teams Creative Services Writer Relationship Specialty Start Date End Date Jody Arora MD [address] [place] [address] [place] [address] PCP - General Family Medicine 11/21/21 documented as of this encounter
--- OUTSIDE RECORDS SUMMARY | 2023-05-15 03:37 | External Medical Summary | Summary of Care ---
Author Name Unknown Organization [facility] Address [address] [place] [address] Phone [phone] Care Team Providers Care Sorter Upholstery Parts Name Role Phone Jody Arora MD Primary Care Provide r Encounter Details Date Type Department Care Team Description 12/25/2022 Orders Only Family Medicine [address] [address] Jody Arora MD [address] [place] [address] [place] [address] Allergies No known active allergiesdocumented as [...] INSOMNIA 30 Tablet 1 11/07/2022 Active Nystatin 978410 UNIT/GM External CreamIndications:Ski n yeast infection Apply [...] renal mass 07/11/2017 Overview: 2018 biopsy at [facility] per patient "kidney cancer". States he was advised he was not a surgical candidate. Carotid stenosis, right 07/11/2017 History of stroke 07/11/2017 Overview: TIA vs lacunar stroke diagnosed on head CT in [place] Apr 2017. Follow up MRI [facility] [...] 12/31/2022 Pharmacy Pharmacy Clinic, Anemia [address] [facility] [place] [address] 04/01/2023 Office Visit Nephrology Deirdre Salinas MD [address] [place] [address] Health Maintenance Due Date [...] full detail OUTSIDE LAB (SEE SCANNED REPORT) Comment:SCAN INCL: [facility] CREATININE-OUTSID E LAB OUTSIDE LAB (SEE [...] LAB OUTSIDE LAB (SEE SCANNED REPORT) HEMOGLOBIN, [id number] LAB OUTSIDE LAB (SEE SCANNED REPORT) PHOSPHORUS-OUTSID E LAB OUTSIDE LAB (SEE SCANNED REPORT) PTH-OUTSIDE LAB OUTS JULIA LAB (SEE SCANNED REPORT) MICROALBUMIN RATIO-OUTSIDE LAB OUTSIDE LA B (SEE SCANNED REPORT) PROTEIN, UA-OUTSIDE LAB OUTSIDE LAB (SEE SCANNED REPORT) HEMOGLOBIN-OUTSID E LAB 9.0(A) 13.5 - 18.0 GM/DL OUTSIDE LAB (SEE SCANNED REPORT) 12/24/2022 Suzette Shankar MD LABORATORY OUTSIDE LAB (SEE SCANNED REPORT) documented in this encounter Care Teams Sorter Upholstery Parts Relationship Specialty Start Date End Date Jody Arora MD [address] [place] [address] [place] [address] PCP - General Family Medicine 11/21/21 documented as of this encounter
--- OUTSIDE RECORDS SUMMARY | 2023-05-15 03:37 | External Medical Summary | Summary of Care ---
Author Name Unknown Organization [facility] Address [address] [place] [address] Phone [phone] Care Team Providers Care Respiratory Coordinator Name Role Phone Jody Arora MD Primary Care Provide r Reason for Visit * Reason Comments Appointment * Evaluate & Treat - Unlimited Visits (Within 10 days (routine)) - Authorized Specialty Diagnoses / Procedures Referred By Contac t Referred To Contact Pharmacist / Pharmacy Diagnoses Kidney disease, chronic, stage IV (GFR 15-29 ml/min) (HCC) Rosy Patel MD [address] [place] [id number] Referral ID Status Reason Start Date Expiration Date Visits Requested Visits Authorized [id number] Authorized Specialty Services Required 11/30/2022 99 99 Encounter Details Date Type Department Care Team Description 12/24/2022 Pharmacy Pharmacy, [place] [address] [place], [place] [id number] Clinic, Anemia [address] [place], [place] [id number] Need for hepatitis B vaccination* Allergies No [...] INSOMNIA 30 Tablet 1 11/07/2022 Active Nystatin 374390 UNIT/GM External CreamIndications:Ski n yeast infection Apply [...] 2018 biopsy at [facility] per patient "kidney cancer". States he was advised he was not a surgical candidate. Carotid stenosis, right 07/11/2017 History of stroke 07/11/2017 Overview: TIA vs lacunar stroke diagnosed on head CT in [place] Apr 2017. Follow up MRI [facility] no infarct. Anxiety 07/11/2017 HTN, [...] as of this encounter Progress Notes * Sharon Dow CPhT - 12/24/2022 12:44 PM EDT Patient Phone Numbers Called and left message with to schedule HBV vaccine series. [facility] had reached out on 12/05/22 as well to speak with patient to schedule. Will follow up in 1 week. Attempt 1 Thank you, Sharon Dow CPhT-Adv Sugar Cane Planting Equipment Operator II [facility] ([facility]) (formerly Telepharmacy) 12/24/2022,12:46 PM documented in this encounter Plan of Treatment Upcoming Encounters Date Type Specialty Care Team Description 12/31/2022 [facility] [address] [facility] [address] [facility]23 Office Visit Nephrology Deirdre [place] MD [address] [facility] [place] [address] Scheduled Referrals Name Type Priority Associated Diagnoses Orde r Schedule PHARMACIST MEDS THERAPY MGMT REFERRAL OP Referral Within 10 days (routine) Kidney disease, chronic, stage IV (GFR 15-29 ml/min) ([facility]) Ordered: 11/30/2022 Health Maintenance Due Date Last Done Comments [...] hepatitis documented in this encounter Care Teams Respiratory Coordinator Relationship Specialty Start Date End Date Jody Arora MD [address] [place] [address] [place] [phone] PCP - General Family Medicine 11/21/21 documented as of this encounter
--- OUTSIDE RECORDS SUMMARY | 2023-05-15 03:37 | External Medical Summary | Summary of Care ---
Author Name Unknown Organization [facility] Address [address] [place] [address] Phone [phone] Care Team Providers Care Retail Leader Name Role Phone Jody Arora MD Primary Care Provide r Reason for Visit * Reason Onset Date Comments Appointment 12/24/2022 Encounter Details Date Type Department Care Team Description 12/24/2022 Telephone Urology, [facility] [address] [place] [address] Services, Scheduling [address] [place] [address] Appointment Allergies No known active allergiesdocumented as [...] INSOMNIA 30 Tablet 1 11/07/2022 Active Nystatin 926750 UNIT/GM External CreamIndications:Ski n yeast infection Apply [...] lacunar stroke diagnosed on head CT in [place] Apr 2017. 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 She will be sending referral and notes, etc. Pt can be reached on his cell phone to scheduled appointment and requested Kassidy Appiah [phone] documented in this encounter Plan of Treatment Upcoming Encounters Date Type Specialty Care Team Description 12/24/2022 Pharmacy Pharmacy Clinic, [place] [address] [facility] [place] [address] 04/01/2023 Office Visit Nephrology Deirdre [place] MD [address] [facility] [place] [address] Health Maintenance Due Date Last Done [...] filedocumented as of this encounter Care Teams Retail Leader Relationship Specialty Start Date End Date Jody Arora MD [address] [place] [address] [place] [address] PCP - General Family Medicine 11/21/21 documented as of this encounter
--- OUTSIDE RECORDS SUMMARY | 2023-05-15 03:37 | External Medical Summary | Summary of Care ---
Author Name Unknown Organization [facility] Address [address] [place] [address] Phone [phone] Care Team Providers Care Mig Welder Name Role Phone Jody Arora MD Primary Care Provide r Reason for Visit * Reason Comments Outpatient Testing Encounter Details Date Type Department Care Team Description 12/20/2022 Laboratory Laboratory [address] [place] [address] [place] [address] Kidney disease, chronic, stage IV (GFR 15-29 ml/min) ([facility]) Allergies No known active allergiesdocumented as of this encounter (statuses as of 12/20/2022) Medications Medication Sig Dispensed Refills Start Date [...] Tablet before bedtime. 180 Tablet 3 01/19/2022 Active Fluticasone Propionate (Inhal) 50 MCG/BLIST Inhalation [...] in the morning. 30 Tablet 11 04/10/2022 Active Rosuvastatin Calcium 40 MG Oral Tablet [...] INSOMNIA 30 Tablet 1 11/07/2022 Active Nystatin 037093 UNIT/GM External CreamIndications:Ski n yeast infection Apply topically to affected area 2 times a day. To affacted area for two weeks. 30 g 0 11/13/2022 Active Additional Information Patient not taking.Reported on 12/11/2022 documented as of this encounter (statuses as of 12/20/2022) Active Problems Problem Noted Date Papillary renal [...] renal mass 07/11/2017 Overview: 2018 biopsy at [facility] per patient "kidney cancer". States he was advised he was not a surgical candidate. Carotid stenosis, right 07/11/2017 History of stroke 07/11/2017 Overview: TIA vs lacunar stroke diagnosed on head CT in [place] Apr 2017. Follow up MRI [facility] no infarct. Anxiety 07/11/2017 HTN, goal below 140/90 08/02/2015 Coronary artery disease Dyslipidemia, goal LDL below 100 documented as of this encounter (statuses as of 12/20/2022) Resolved Problems Problem Noted Date Resolved Date [...] as of this encounter (statuses as of 12/20/2022) Immunizations Name Administration Dates Next Due COVID-19 [...] Encounters Date Type Specialty Care Team Description 04/01/2023 Office Visit Nephrology Deirdre [place] MD [address] [place] [address] [place] [address] Pending Results Name Type Priority Associated Diagnoses Date /Time BASIC METABOLIC PANEL Lab Routine Kidney disease, chronic, stage IV (GFR 15-29 ml/min) ([facility]) 12/20/2022 12:27 PM EDT Health Maintenance Due Date Last Done Comments Alpha-1 Antitrypsin 1958 Hepatitis B (2 of 3 - 19+ 3-dose series) 02/05/2018 01/08/2018 *COPD SEVERITY VERIFIED BY PFT 07/16/2020 Depression Screening 02/28/2021 02/29/2020 COVID-19 Vaccine ( season) 2022 01/10/2021, 05/24/2020, 04/26/2020 Influenza Vaccine (FLU shot) (#1) 2022 12/07/2021, 12/05/2020, 12/18/2019, Additional history exists GFR 05/31/2023 11/30/2022, 07/17, 07/12/2022, Additional history exists Albumin/Creatinine Ratio 08/09/2023 023, [...] (severe) documented in this encounter Care Teams Mig Welder Relationship Specialty Start Date End Date Jody Arora MD [address] [place] [address] [place] [address] PCP - General Family Medicine 11/21/21 documented as of this encounter
--- OUTSIDE RECORDS SUMMARY | 2023-05-15 03:37 | External Medical Summary | Summary of Care ---
Author Name Unknown Organization [facility] Address [address] [place] [address] Phone [phone] Care Team Providers Care Heat Regulator Name Role Phone Jody Arora MD Primary Care Provide r Reason for Visit * Reason Onset Date Comments Appointment 12/24/2022 Encounter Details Date Type Department Care Team Description 12/24/2022 Telephone Urology, [facility] [address] [place] [address] Services, Scheduling [address] [place] [address] Appointment Allergies No known active allergiesdocumented as [...] INSOMNIA 30 Tablet 1 11/07/2022 Active Nystatin 188920 UNIT/GM External CreamIndications:Ski n yeast infection Apply [...] renal mass 07/11/2017 Overview: 2018 biopsy at [facility] per patient "kidney cancer". States he was advised he was not a surgical candidate. Carotid stenosis, right 07/11/2017 History of stroke 07/11/2017 Overview: TIA vs lacunar stroke diagnosed on head CT in [place] Apr 2017. [facility] [...] to scheduled appointment and requested Kassidy Appiah [phone] documented in this encounter Plan of Treatment Upcoming Encounters Date Type Specialty Care Team Description 12/24/2022 Pharmacy Pharmacy Clinic, Anemia [address] [facility] [place] [address] 04/01/2023 Office Visit Nephrology Deirdre [place] MD [address] [facility] [place] [address] Health Maintenance Due Date [...] filedocumented as of this encounter Care Teams Heat Regulator Relationship Specialty Start Date End Date Jody Arora MD [address] [place] [address] [place] [address] PCP - General Family Medicine 11/21/21 documented as of this encounter
--- OUTSIDE RECORDS SUMMARY | 2023-05-15 03:37 | External Medical Summary | Summary of Care ---
Author Name Unknown Organization [facility] Address [address] [place] [address] Phone [phone] Care Team Providers Care Diesel Locomotive Engineer Name Role Phone Jody Arora MD Primary Care Provide r Reason for Visit * Reason Onset Date Comments Appointment 12/24/2022 Encounter Details Date Type Department Care Team Description 12/24/2022 Telephone Urology, [facility] [address] [place] [address] Services, Scheduling [address] [place] [address] Appointment Allergies No known active allergiesdocumented as [...] INSOMNIA 30 Tablet 1 11/07/2022 Active Nystatin 274025 UNIT/GM External CreamIndications:Ski n yeast infection Apply [...] renal mass 07/11/2017 Overview: 2018 biopsy at [facility] per patient "kidney cancer". States he was advised he was not a surgical candidate. Carotid stenosis, right 07/11/2017 History of stroke 07/11/2017 Overview: TIA vs lacunar stroke diagnosed on head CT in [place] Apr 2017. Follow up MRI [facility] no infarct. Anxiety 07/11/2017 HTN, goal below [...] to scheduled appointment and requested Kassidy Appiah [phone] documented in this encounter Plan of Treatment Upcoming Encounters Date Type Specialty Care Team Description 12/24/2022 Pharmacy Pharmacy Clinic, [place] [address] [facility] [place] [address] 04/01/2023 Office Visit Nephrology Deirdre [place] MD [address] [facility] [place] [address] Health Maintenance Due [...] filedocumented as of this encounter Care Teams Diesel Locomotive Engineer Relationship Specialty Start Date End Date Jody Arora MD [address] [place] [address] [place] [address] PCP - General Family Medicine 11/21/21 documented as of this encounter
--- OUTSIDE RECORDS SUMMARY | 2023-05-15 03:37 | External Medical Summary | Summary of Care ---
Author Name Unknown Organization [facility] Address [address] [place] [address] Phone [phone] Care Team Providers Care Deckhand Oyster Dredge Name Role Phone Jody Arora MD Primary Care Provide r Reason for Visit * Reason Onset Date Comments Appointment 12/24/2022 Encounter Details Date Type Department Care Team Description 12/24/2022 Telephone Urology, [facility] [address] [place] [address] Services, Scheduling [address] [place] [address] Appointment Allergies No known active allergiesdocumented as [...] INSOMNIA 30 Tablet 1 11/07/2022 Active Nystatin 588692 UNIT/GM External CreamIndications:Ski n yeast infection Apply [...] lacunar stroke diagnosed on head CT in [place] Apr 2017. Follow up MRI [facility] [...] to scheduled appointment and requested Kassidy Appiah [phone] documented in this encounter Plan of Treatment Upcoming Encounters Date Type Specialty Care Team Description 12/24/2022 Pharmacy Pharmacy Clinic, [place] [address] [facility] [place] [address] 04/01/2023 Office Visit Nephrology Deirdre aSlinas MD [address] [facility] [place] [address] Health Maintenance Due [...] filedocumented as of this encounter Care Teams Deckhand Oyster Dredge Relationship Specialty Start Date End Date Jody Arora MD [address] [place] [address] [place] [address] PCP - General Family Medicine 11/21/21 documented as of this encounter
--- OUTSIDE RECORDS SUMMARY | 2023-05-15 03:38 | External Medical Summary | Summary of Care ---
Author Name Unknown Organization [facility] Address [address] [place] [address] Phone [phone] Care Team Providers Care Html Developer Name Role Phone Jody Arora MD Primary Care Provide r Reason for Visit * Reason Onset Date Comments case management 12/11/2022 CKD CM pt contac t Encounter Details Date Type Department Care Team Description 12/11/2022 Turning Sander Tender Telephone Care Coordination [address] [place] [address] Smita Garcia, configuration management architect (CKD CM pt contact) Allergies No known active allergiesdocumented as of this encounter (statuses as of 12/11/2022) Medications Medication Sig Dispensed Refills Start Date [...] INSOMNIA 30 Tablet 1 11/07/2022 Active Nystatin 503939 UNIT/GM External CreamIndications:Ski n yeast infection Apply topically to affected area 2 times a day. To affacted area for two weeks. 30 g 0 11/13/2022 Active Additional Information Patient not taking.Reported on 12/11/2022 documented as of this encounter (statuses as of 12/11/2022) Active Problems Problem Noted Date Papillary renal [...] renal mass 07/11/2017 Overview: 2018 biopsy at [facility] per patient "kidney cancer". States he was advised he was not a surgical candidate. Carotid stenosis, right 07/11/2017 History of stroke 07/11/2017 Overview: TIA vs lacunar stroke diagnosed on head CT in [place] Apr 2017. Follow up MRI [facility] no infarct. Anxiety 07/11/2017 HTN, goal below 140/90 08/02/2015 Coronary artery disease Dyslipidemia, goal LDL below 100 documented as of this encounter (statuses as of 12/11/2022) Resolved Problems Problem Noted Date Resolved Date [...] as of this encounter (statuses as of 12/11/2022) Immunizations Name Administration Dates Next Due COVID-19 mRNA, LNP-s, No Pre serve, 2-Dose Series (Moderna) 01/10/2021,05/24/2020,04/26/2020 Hepatitis B, 20+ yrs 01/08/2018 Pneumococcal Conjugate Vacc, 13 Valent (Prevnar) 01/16/2018 Pneumococcal Polysaccharide PPV23 (Pneumovax) 02/09/2015 Seasonal Influenza Virus Vac cine, Unspecified Formulation 12/16/2018 Seasonal Influenza, PF, 6 mo ns & Above, IM , (Flulaval) 12/05/2020,12/22/2018,12/16/2016 Seasonal Influenza, Quadriva lent Hd (Fluzone [...] Telephone Encounter - Smita Garcia RN - 12/11/2022 4:37 PM EDT CKD CM pt contact Pt called CKD CM, said he received the diet information. He asked what he was supposed to eat. Discussed eating foods from the first page and limiting the foods on page 2. Pt had questions re: dialysis, "how long can i last if i don't get it?" "Do you know how i see this, Smita? i see this as the beginning of the end". Provided supportive listening to pt, discussed with him that many people who still work get dialysis, it is a change in routine. He ultimately wants to do it at home, if possible, which would work with his schedule better. He is in agreement to work on his diet. Smita Garcia RN Kidney Transitions Specialist CKD Turning Sander Tender documented in this encounter Plan of Treatment Upcoming Encounters Date Type Specialty Care Team Description 04/01/2023 Office Visit Nephrology Deirdre [place] MD [address] [place] [address] [place] [address] Health Maintenance Due Date Last Done Comments Alpha-1 Antitrypsin 1958 Hepatitis B (2 of 3 - 19+ 3-dose series) 02/05/2018 01/08/2018 *COPD SEVERITY VERIFIED BY PFT 07/16/2020 Depression Screening 02/28/2021 02/29/2020 COVID-19 Vaccine (4 - Moderna series) 03/07/2021 01/10/2021, 05/24/2020, 04/26/2020 Influenza Vaccine (FLU shot) [...] filedocumented as of this encounter Care Teams Html Developer Relationship Specialty Start Date End Date Jody Arora MD [address] [place] [address] [place] [address] PCP - General Family Medicine 11/21/21 documented as of this encounter
--- OUTSIDE RECORDS SUMMARY | 2023-05-15 03:38 | External Medical Summary | Summary of Care ---
Author Name Unknown Organization [facility] Address [address] [place] [address] Phone [phone] Care Team Providers Care Er Rn Name Role Phone Jody Arora MD Primary Care Provide r Reason for Visit * Reason Comments case management CKD CM pt contact/me d rec Encounter Details Date Type Department Care Team Description 12/11/2022 Proof Coin Collector Care Coordination [address] [place] [address] Smita Garcia RN Kidney disease, chronic, stage IV (GFR 15-29 ml/min) ([facility])* Allergies No known active allergiesdocumented as of [...] INSOMNIA 30 Tablet 1 11/07/2022 Active Nystatin 715450 UNIT/GM External CreamIndications:Ski n yeast infection Apply [...] renal mass 07/11/2017 Overview: 2018 biopsy at [facility] per patient "kidney cancer". States he was advised he was not a surgical candidate. Carotid stenosis, right 07/11/2017 History of stroke 07/11/2017 Overview: TIA vs lacunar stroke diagnosed on head CT in [place] Apr 2017. Follow up MRI [facility] no infarct. Anxiety 07/11/2017 HTN, goal below [...] as of this encounter Progress Notes * Smita Garcia RN - 12/11/2022 8:51 AM EDT CKD CM pt contact Call to pt. Bottles out med rec done. Pt says he does not use nasal spray or inhalers. He has all meds except sodium bicarb. Attempted to contact [facility] pharmacy in [place], no answer. Want to ensure that they have script. Pt made aware to machine operator hop picker and lab to be done middle to end of next week. Lab orders are in place. Discussed low potassium diet with pt, he says he is not sure what foods to avoid, he requested dietsheet be emailed to him at [email or web address]. Will also include s/s to monitor for and report. Pt is unable to teach back any red flags. Reviewed with him. SOB, N/V, loss of appetite, edema. Plan; will f/u with pt as previously indicated. Smita Garcia RN CKD Proof Coin Collector documented in this encounter Plan of Treatment Upcoming Encounters Date Type Specialty Care Team Description 04/01/2023 Office Visit Nephrology Deirdre Salinas MD [address] [place] [address] [place] [address] Health Maintenance Due Date [...] (severe) documented in this encounter Care Teams Er Rn Relationship Specialty Start Date End Date Jody Arora MD [address] [place] [address] [place] [address] PCP - General Family Medicine 11/21/21 documented as of this encounter
--- OUTSIDE RECORDS SUMMARY | 2023-05-15 03:38 | External Medical Summary | Summary of Care ---
Author Name Unknown Organization [facility] Address [address] [place] [address] Phone [phone] Care Team Providers Care Lumber Sorter Machine Name Role Phone Jody Arora MD Primary Care Provide r Reason for Visit * Reason Onset Date Comments Appointment 12/05/2022 Encounter Details Date Type Department Care Team Description 12/05/2022 Telephone Pharmacy, [address] [place] [phone] Ruma [address] [place] [address] Appointment Allergies No known active allergiesdocumented as of this encounter (statuses as of 12/06/2022) Medications Medication Sig Dispensed Refills Start Date End Date Status nitroglycerin (NITROSTAT) 0.4 MG SUBL 1 Tablet. 0 08/19/2018 Active Ventolin HFA 108 (90 Base) MCG/ACT Inhalation Aerosol SolutionIndications:C OPD exacerbation (HCC) Inhale by mouth 2 Puffs every 4 hours as needed for Wheezing. 18 g 1 11/22/2021 Active NIFEdipine ER Osmotic Release 60 MG [...] for Wheezing. 360 mL 0 02/09/2022 Active Furosemide 40 MG Oral Tablet (Lasix) [...] (HCC),COPD, group C, by GOLD 2017 classification ([facility]) Inhale 3 mL via nebulizer every 4 hours as needed for Wheezing. 120 mL 1 10/17/2022 Active hydrALAZINE HCl 25 MG Oral Tablet (Apresoline) Take 1 tablet by mouth twice daily 180 Tablet 2 11/06/2022 Active hydrOXYzine HCl 50 MG Oral TabletIndications:Celine sharron insomnia TAKE 1 TABLET BY MOUTH AT BEDTIME NEEDED FOR INSOMNIA 30 Tablet 1 11/07/2022 Active Nystatin 736950 UNIT/GM External CreamIndications:Skin yeast infection Apply topically to affected area 2 times a day. To affacted area for two weeks. 30 g 0 11/13/2022 Active documented as of this encounter (statuses as of 12/06/2022) Active Problems Problem Noted Date Papillary renal [...] lacunar stroke diagnosed on head CT in [place] Apr 2017. Follow up MRI [facility] no infarct. Anxiety 07/11/2017 HTN, goal below 140/90 08/02/2015 Coronary artery disease Dyslipidemia, goal LDL below 100 documented as of this encounter (statuses as of 12/06/2022) Resolved Problems Problem Noted Date Resolved Date [...] as of this encounter (statuses as of 12/06/2022) Immunizations Name Administration Dates Next Due COVID-19 [...] Ruma Fraser RPh, PharmD Clinical Pharmacist - [facility] 12/05/2022, 1:49 PM [phone] documented in this encounter Plan of Treatment Upcoming Encounters Date Type Specialty Care Team Description 04/01/2023 Office Visit Nephrology Deirdre [place]inas MD [address] [place], [place] [address] [address] Health Maintenance Due Date Last Done Comments [...] filedocumented as of this encounter Care Teams Lumber Sorter Machine Relationship Specialty Start Date End Date Jody Arora MD [address] [place] [address] [place] [address] PCP - General Family Medicine 11/21/21 documented as of this encounter
--- OUTSIDE RECORDS SUMMARY | 2023-05-15 03:38 | External Medical Summary ---
Author Name Unknown Address Unknown Organization K01:[facility] - [facility] [address] [address] [place] [address] Laboratory Report Ordering Provider Test Date Status JOELOLEGARIO 12/20/2022 12:27:46 Final Observation Date Value Abnormality Reference (Units ) Status BUN 12/20/2022 12:27:46 67 Above high normal 6-20 (mg/dL) Final Creatinine 12/20/2022 12:27:46 3.8 Above high normal 0.6-1.2 (mg/dL) Final Glomerular filtration rate/1.73 sq M.predicted [Volume Rate/Area] in Serum, Plasma or Blood by Creatinine-based formula (CKD-EPI) 12/20/2022 12:27:46 15 Below low normal >=60 (mL/min) Final eGFR is calculated based on the CKD-EPI 2020 equation SODIUM 12/20/2022 12:27:46 140 135-146 (m mol/L) Final Potassium 12/20/2022 12:27:46 5.6 Above high normal 3. 5-5.1 (mmol/L) Final Cl 12/20/2022 12:27:46 105 98-107 (mm ol/L) Final CO2 12/20/2022 12:27:46 22 22-32 (mmo l/L) Final Anion gap 12/20/2022 12:27:46 13 7-15 (mmol /L) Final Glucose 12/20/2022 12:27:46 105 70-120 (mg /dL) Final Calcium 12/20/2022 12:27:46 8.7 8.4-10.2 ( mg/dL) Final Performing Location [facility] - [address] [place] [address]
--- OUTSIDE RECORDS SUMMARY | 2023-05-15 03:38 | External Medical Summary | Summary of Care ---
Author Name Unknown Organization [facility] Address [address] [place] [address] Phone [phone] Care Team Providers Care Asset Coordinator Name Role Phone Jody Arora MD Primary Care Provide r Reason for Visit * Reason Onset Date Comments Appointment 12/05/2022 Encounter Details Date Type Department Care Team Description 12/05/2022 Telephone Pharmacy, [address] [place] [phone] Ruma Fraser[address] [place] [address] Appointment Allergies No known active allergiesdocumented as of this encounter (statuses as of 12/10/2022) Medications Medication Sig Dispensed Refills Start Date [...] INSOMNIA 30 Tablet 1 11/07/2022 Active Nystatin 352487 UNIT/GM External CreamIndications:Skin yeast infection Apply topically to affected area 2 times a day. To affacted area for two weeks. 30 g 0 11/13/2022 Active documented as of this encounter (statuses as of 12/10/2022) Active Problems Problem Noted Date Papillary renal [...] renal mass 07/11/2017 Overview: 2018 biopsy at [facility] per patient "kidney cancer". States he was advised he was not a surgical candidate. Carotid stenosis, right 07/11/2017 History of stroke 07/11/2017 Overview: TIA vs lacunar stroke diagnosed on head CT in [place] Apr 2017. Follow up MRI [facility] no infarct. Anxiety 07/11/2017 HTN, goal below 140/90 08/02/2015 Coronary artery disease Dyslipidemia, goal LDL below 100 documented as of this encounter (statuses as of 12/10/2022) Resolved Problems Problem Noted Date Resolved Date [...] as of this encounter (statuses as of 12/10/2022) Immunizations Name Administration Dates Next Due COVID-19 [...] Ruma Fraser RPh, PharmD Clinical Pharmacist - Security Compliance Engineer Medication Therapy [facility] 12/05/2022, 1:49 PM [phone] documented in this encounter Plan of Treatment Upcoming Encounters Date Type Specialty Care Team Description 04/01/2023 Office Visit Nephrology Deirdre Salinas MD [address] [place], [place] [address] [address] Health Maintenance Due Date Last [...] filedocumented as of this encounter Care Teams Asset Coordinator Relationship Specialty Start Date End Date Jody Arora MD [address] [place] [address] [place] [address] PCP - General Family Medicine 11/21/21 documented as of this encounter
--- OUTSIDE RECORDS SUMMARY | 2023-05-15 03:38 | External Medical Summary | Summary of Care ---
Author Name Unknown Organization [facility] Address [address] [place] [address] Phone [phone] Care Team Providers Care Drafter Electrical Name Role Phone Jody Arora MD Primary Care Provide r Reason for Referral * Evaluate & Treat - Unlimited Visits (Within 10 days (routine)) - Authorized Specialty Diagnoses / Procedures Referred By Contac t Referred To Contact Dietitian / Nutrition Services Diagnoses Kidney disease, chronic, stage IV (GFR 15-29 ml/min) ([facility]) Rosy Patel MD [address] [facility] [place] [address] Referral ID Status Reason Start Date Expiration Date Visits Requested Visits Authorized [id number] Authorized Specialty Services Required 12/04/[phone] Question Answer Referral Priority Within 10 days (routine) What condition is the patient being seen for? CKD Comments Nutrition education for CKD Stage 4-5 Please review lowK+, low phos diet. Reason for Visit * Reason Onset Date Comments Immunizations 12/04/2022 Encounter Details Date Type Department Care Team Description 12/04/2022 Telephone Nephrology, Mitzi Barajas [address] [place] [address] Rosy Patel MD [address] [facility] [place] [address] Immunizations Allergies No known active allergiesdocumented as of this encounter (statuses as of 12/05/2022) Medications Medication Sig Dispensed Refills Start Date [...] INSOMNIA 30 Tablet 1 11/07/2022 Active Nystatin 626497 UNIT/GM External CreamIndications:Skin yeast infection Apply topically to affected area 2 times a day. To affacted area for two weeks. 30 g 0 11/13/2022 Active documented as of this encounter (statuses as of 12/05/2022) Active Problems Problem Noted Date Papillary renal [...] 07/11/2017 Overview: [address] [facility] per patient "kidney cancer". States he was advised he was not a surgical candidate. Carotid stenosis, right 07/11/2017 History of stroke 07/11/2017 Overview: TIA vs lacunar stroke diagnosed on head CT in [place] Apr 2017. Follow up MRI [facility] no infarct. Anxiety 07/11/2017 HTN, goal below 140/90 08/02/2015 Coronary artery disease Dyslipidemia, goal LDL below 100 documented as of this encounter (statuses as of 12/05/2022) Resolved Problems Problem Noted Date Resolved Date [...] as of this encounter (statuses as of 12/05/2022) Immunizations Name Administration Dates Next Due COVID-19 [...] Telephone Encounter - Gabby Sosa RN - 12/05/2022 4:14 PM EDT MTM Pharmacist will make arrangements for Hep B series. * Telephone Encounter - Gabby Sosa RN - 12/05/2022 4:12 PM EDT ----- Message from Rosy Patel MD sent at 12/02/2022 5:10 PM EDT ----- Regarding: MTM for Hep B series Hi Ordered MTM c/s for Hep B for this pt as he nears ESRD. Order set has us giving injection in clinic which we're not able to do. Would still like him to getthe series or whatever he needs of it. Ideas on how to proceed? thx * Telephone Encounter - Rosy Patel MD - 12/04/2022 2:59 PM EDT If not on sodium bicarb, needs to start 650 mg bid; pld communciate when you catch up wh/ him * Telephone Encounter - Julia Dhillon RN - 12/04/2022 1:42 PM EDT See note from Riki Garcia RN from 12/04. * Telephone Encounter - Julia Dhillon RN - 12/04/2022 1:41 PM EDT ----- Message from Rosy Patel MD sent at 12/02/2022 5:28 PM EDT ----- Kidney labs essentially stable but phos and K up a bit and some acidosis. >>is he taking bicarb tabs as rx'd? Labs suggest maybe not; if he is taking as rx'd then pls double dose to 13oo mg bid >pls work w/ Smita or offer pipe stem repairer referral for lower K , lower phos diet >repeat bmp after about 7-10 days on better diet, appropriate bicarb dose documented in this encounter Plan of Treatment Upcoming Encounters Date Type Specialty Care Team Description 04/01/2023 Office Visit Nephrology Deirdre Salinas MD [address] [place] [address] [place] [address] Scheduled Orders Name Type Priority Associated Diagnoses Orde r Schedule BASIC METABOLIC PANEL Lab Routine Kidney disease, chronic, stage IV (GFR 15-29 ml/min) (HCC) Expected: 12/11/2022, Expires: 12/05/2023 Scheduled Referrals Name Type Priority Associated Diagnoses Orde r Schedule NUTRITION-CLINICAL DIETITIAN REFERRAL OP Referral Within 10 days (routine) Kidney disease, chronic, stage IV (GFR 15-29 ml/min) (HCC) Ordered: 12/04/2022 Health Maintenance Due Date Last Done Comments [...] (severe) documented in this encounter Care Teams Drafter Electrical Relationship Specialty Start Date End Date Jody Arora MD [address] [place] [address] [place] [address] PCP - General Family Medicine 11/21/21 documented as of this encounter
--- OUTSIDE RECORDS SUMMARY | 2023-05-15 03:38 | External Medical Summary | Summary of Care ---
Author Name Unknown Organization [facility] Address [address] [place] [address] Phone [phone] Care Team Providers Care Equities Trader Name Role Phone Jody Arora MD Primary Care Provide r Encounter Details Date Type Department Care Team Description 12/05/2022 Telephone Pharmacy, [address] [place] [address] [facility] [address] Allergies No known active allergiesdocumented as of [...] INSOMNIA 30 Tablet 1 11/07/2022 Active Nystatin 312490 UNIT/GM External CreamIndications:Skin yeast infection Apply topically [...] renal mass 07/11/2017 Overview: 2018 biopsy at [facility] [place], operated by [facility] per patient "kidney cancer". States he was advised he was not a surgical candidate. Carotid stenosis, right 07/11/2017 History of stroke 07/11/2017 Overview: TIA vs lacunar stroke diagnosed on head CT in [place] Apr 2017. Follow up MRI [facility] no infarct. Anxiety 07/11/2017 HTN, goal below [...] Ruma Fraser RPh, PharmD Clinical Pharmacist - Shoe Laster Medication Therapy Disease Management Clinic 12/05/2022, 1:49 PM [phone] documented in this encounter Plan of Treatment Upcoming Encounters Date Type Specialty Care Team Description 04/01/2023 Office Visit Nephrology Deirdre Salinas MD [address] [place] [address] [place] [address] Health Maintenance Due Date [...] filedocumented as of this encounter Care Teams Equities Trader Relationship Specialty Start Date End Date Jody Arora MD [address] [place] [address] [place] [address] PCP - General Family Medicine 11/21/21 documented as of this encounter
--- OUTSIDE RECORDS SUMMARY | 2023-05-15 03:39 | External Medical Summary ---
Author Name Unknown Address Unknown Organization [id number]:[facility] [place] [address] [place] [address] Laboratory Report Ordering Provider Test Date Status OLEGARIO MALDONADO 11/30/2022 15:43:32 Final Observation Date Value Abnormality Reference (Units ) Status Uric Acid 11/30/2022 15:43:32 6.5 3.4-7.0 (m g/dL) Final Performing Location LAB[facility]ATORY [facility] - [address] [place] [address]
--- OUTSIDE RECORDS SUMMARY | 2023-05-15 03:39 | External Medical Summary | Summary of Care ---
Author Name Unknown Organization [facility] Address [address] [place] [address] Phone [phone] Care Team Providers Care Echo Technologist Name Role Phone Jody Arora MD Primary Care Provide r Reason for Visit * Reason Comments case management CKD CM goal review Encounter Details Date Type Department Care Team Description 12/04/2022 Construction Project Manager Care Coordination [address] [place] [address] Smita Garcia, RN Kidney disease, chronic, stage IV (GFR 15-29 ml/min) ([facility])* Allergies No known active allergiesdocumented as of this encounter (statuses as of 12/04/2022) Medications Medication Sig Dispensed Refills Start Date [...] INSOMNIA 30 Tablet 1 11/07/2022 Active Nystatin 820408 UNIT/GM External CreamIndications:Skin yeast infection Apply topically to affected area 2 times a day. To affacted area for two weeks. 30 g 0 11/13/2022 Active documented as of this encounter (statuses as of 12/04/2022) Active Problems Problem Noted Date Papillary renal [...] 01/16/2018 Not immune to hepatitis B virus 10/24/20 18 Anemia of chronic renal failure, stage 4 (severe) 10/29/2017 Overview: Per CKD protocol #[address] Shankar Left renal mass 07/11/2017 Overview: 2018 biopsy at [facility] per patient "kidney cancer". States he was advised he was not a surgical candidate. Carotid stenosis, right 07/11/2017 History of stroke 07/11/2017 Overview: TIA vs lacunar stroke diagnosed on head CT in [place] Apr 2017. Follow up MRI [facility] no infarct. Anxiety 07/11/2017 HTN, goal below 140/90 08/02/2015 Coronary artery disease Dyslipidemia, goal LDL below 100 documented as of this encounter (statuses as of 12/04/2022) Resolved Problems Problem Noted Date Resolved Date [...] as of this encounter (statuses as of 12/04/2022) Immunizations Name Administration Dates Next Due COVID-19 [...] of this encounter Progress Notes * Smita Garcia, JUAN ANTONIO - 12/04/2022 9:57 AM EDT Construction Project Manager Progress Note: Date: 12/04/22 Assigned Patient Tier: 3 Connected with patient via phone. Verified patient name/. Advised patient that call is being recorded for quality and training purposes. Assessment: Pt. noted the following: CKD CM goal review Pt was at work; said he only had a few minutes to talk. Pt denies CP and change in SOB, no N/V, no change in urinary output, no pain. He reports that he always has edema. Current wt 187# He fell 2- or 3-times last week, was able to get himself back up. No injuries. Pt has AVF in place, he is waiting to start dialysis when he is symptomatic. Pt verbalizes that he does not know what symptoms he is watching for. Will send S/S to monitor for and report. Discussed medications, he does not have them with him, says he continues to take his lasix, unsure of sodium bicarb. Will need bottles out med rec done. Last note from Dr. Patel indicates that he is to be taking sodium bicarb. Reviewed s/s to monitor for. Sent low potassium diet sheets for pt to review. Plan; will contact pt in next week to complete bottles out med rec and then in 4-5 weeks for goal review. If pt able to verbalize s/s to monitor for will close at that time. . Did you receive an alert for an annual wellness visit? No Is this call for a hospital, chcf or rehab facility discharge to home? No Medication Reconciliation: Medication Reconciliation completed: discussed, pt is unsure of what he takes Review of Current goals: Discussed the following patient-centered CM goals with the patient during this discussion: -CKD: Patient will maintain kidney function as long as possible -Status: On Track current GFR is 15. -ESRD: Patient will be prepared for dialysis initiation -Status: Completed pt has AVF, ready for use. -SYMPTOM Monitoring: Patient will verbalize understanding of symptom monitoring -Status: At Risk pt unable to verbalize s/s to monitor for re: uremia, reviewed with him and sent education sheet, s/s to monitor for and report. . COPD Patient: YES Breathing: Breathing at Baseline CHF Patient: NO CM Plan: Reviewed 3 Red Flags with patient. Advised to call CM with any of the following: Red Flag 1: Increased SOB, Red Flag 2: Edema, or Red Flag 3: Wt gain Remote Patient Monitoring: At this time, RPM not offered/considered for patient due to pt uses own equipment. Plan for Future Contacts: Plan to follow up within 1 month to check progress on the following goals/needs s/s to monitor for. Planned contacts from the following parties will occur this week: N/A as additional contacts per workflow. Advancement/Closure Plan: Keep patient at current Tier with reassessment per workflow. Patient provided CM contact information and encouraged to call with any changes in condition. SNP Member? No PCP Notified of enrollment in CM/HM program: Yes Is Provider in agreement with POC? Yes Exacerbation Plan Reviewed S/S of uremia and fluid retention. Reviewed diet restrictions, including no added salt, phosphorus and potassium. Encouraged to call office if symptoms occur. Follow up: Later this week for med rec and in 4-5 weeks, patient verbalizes understanding to call office if questions or concerns arise. Smita Garcia RN Kidney Transitions Specialist Nephrology Case Management documented in this encounter Plan of Treatment Upcoming Encounters Date Type Specialty Care Team Description 04/01/2023 Office Visit Nephrology Deirdre Salinas MD [address] [place] [address] [place] [phone] Health Maintenance Due Date Last Done Comments [...] (severe) documented in this encounter Care Teams Echo Technologist Relationship Specialty Start Date End Date Jody Arora MD [address] [place] [address] [place] [address] PCP - General Family Medicine 11/21/21 documented as of this encounter
--- OUTSIDE RECORDS SUMMARY | 2023-05-15 03:39 | External Medical Summary ---
Author Name Unknown Address Unknown Organization K01[place] [place] [facility] [address] [place] [address] Laboratory Report Ordering Provider Test Date Status OLEGARIO MALDONADO 11/30/2022 15:43:32 Final Observation Date Value Abnormality Reference (Units ) Status BUN 11/30/2022 15:43:32 68 Above high normal 6-20 (mg/dL) Final Creatinine 11/30/2022 15:43:32 3.8 Above high normal 0.6-1.2 (mg/dL) Final Glomerular filtration rate/1.73 sq M.predicted [Volume Rate/Area] in Serum, Plasma or Blood by Creatinine-based formula (CKD-EPI) 11/30/2022 15:43:32 15 Below low normal >=60 (mL/min) Final eGFR is calculated based on the CKD-EPI 2020 equation SODIUM 11/30/2022 15:43:32 142 135-146 (m mol/L) Final Potassium 11/30/2022 15:43:32 5.3 Above high normal 3. 5-5.1 (mmol/L) Final Cl 11/30/2022 15:43:32 108 Above high normal 98 -107 (mmol/L) Final CO2 11/30/2022 15:43:32 20 Below low normal 22- 32 (mmol/L) Final Anion gap 11/30/2022 15:43:32 14 7-15 (mmol /L) Final Glucose 11/30/2022 15:43:32 92 70-120 (mg /dL) Final Calcium 11/30/2022 15:43:32 8.2 Below low normal 8.4 -10.2 (mg/dL) Final Performing Location [facility] [place] [address] [place] [address]
--- OUTSIDE RECORDS SUMMARY | 2023-05-15 03:39 | External Medical Summary | Summary of Care ---
Author Name Unknown Organization [facility] Address [address] [place] [address] Phone [phone] Care Team Providers Care Running Rigger Name Role Phone London Arora MD Primary Care Provide r Reason for Referral * Evaluate & Treat - Unlimited Visits (Within 10 days (routine)) - Authorized Specialty Diagnoses / Procedures Referred By Contac t Referred To Contact Pharmacist / Pharmacy Diagnoses Kidney disease, chronic, stage IV (GFR 15-29 ml/min) ([facility]) Rosy Patel MD [address] [place] [id number] Referral ID Status Reason Start Date Expiration Date Visits Requested Visits Authorized [id number] Authorized Specialty Services Required 11/30/2022 99 99 Question Answer Referral Priority Within 10 days (routine) Department: Specialist Specialty: Nephro Reason for Referral: Hep B Vaccine Comments Pharmacist Medication Therapy Management: Minimum frequency patient should be seen in person for medication management: as appropriate per clinical condition and patient status By my signature, I understand that my patient Justin Pinedo will have his medication therapy managed by the [facility] Medication Therapy Disease Management Clinic ([facility]) per established policies, procedures, and protocols. I also certify that this referral may serve as an initiation of service for the management of drug therapy in the above noted patient. [facility] providers will be responsible for scheduling patient visits, obtaining appropriate laboratory studies, and adjusting medication management therapy per patient's need, in addition to those roles spelled out in the clinic policy, procedures, and drug management protocols. I understand that the service provided by the [facility] is voluntary and have informed patient that they can refuse the service at their discretion. I am aware that the [facility] Clinic will provide me with a copy of the patient encounter via my [employer]. I authorize the [facility] to carry out these activities on my behalf. I consider this program to be a necessary part of the patient's medical care. Rosy Patel MD Reason for Visit * Reason Comments Chronic Kidney Disease (CKD) Encounter Details Date Type Department Care Team Description 11/30/2022 Office Visit Nephrology, Mitzi Barajas [address] [facility] [place] [address] Rosy Patel MD [address] [facility] [place] [address] Kidney disease, chronic, stage IV (GFR 15-29 ml/min) ([facility])*; Metabolic acidosis; HTN, goal below 130/80; Left renal mass; Persistent proteinuria, unspecified; Encounter for immunization Allergies No known active allergiesdocumented as of this encounter (statuses as of 12/02/2022) Medications Medication Sig Dispensed Refills Start Date [...] INSOMNIA 30 Tablet 1 11/07/2022 Active Nystatin 983599 UNIT/GM External CreamIndications:Sk in yeast infection Apply topically to affected area 2 times a day. To affacted area for two weeks. 30 g 0 11/13/2022 Active Doxycycline Hyclate 100 MG Oral CapsuleIndications: Cellulitis of buttock Take 1 Capsule by mouth in the morning and 1 Capsule before bedtime. Take for 7 days. 14 Capsule 0 11/09/2022 12/03/19 23 Discontinued documented as of this encounter (statuses as of 12/02/2022) Active Problems Problem Noted Date Papillary renal [...] biopsy at [facility]/[place] per patient "kidney cancer". States he was advised he was not a surgical candidate. Carotid stenosis, right 07/11/2017 History of stroke 07/11/2017 Overview: TIA vs lacunar stroke diagnosed on head CT in [place] Apr 2017. Follow up MRI [facility] no infarct. Anxiety 07/11/2017 HTN, goal below 140/90 08/02/2015 Coronary artery disease Dyslipidemia, goal LDL below 100 documented as of this encounter (statuses as of 12/02/2022) Resolved Problems Problem Noted Date Resolved Date [...] as of this encounter (statuses as of 12/02/2022) Immunizations Name Administration Dates Next Due COVID-19 [...] Sign Reading Time Taken Comments Blood Pressure 124/59 11/30/2022 2:53 PM EDT Pulse 75 11/30/2022 2:53 PM EDT Temperature 35.6 C (96 F) 11/30/2022 2:53 PM EDT Respiratory Rate 18 11/30/2022 2:53 PM EDT Oxygen Saturation 91% 11/30/2022 2:53 PM EDT Inhaled Oxygen Concentration - - Weight 86.6 kg (191 lb) 11/30/2022 2:53 PM EDT Height - - Body Mass Index 32.79 11/13/2022 9:14 AM EDT documented in this encounter Progress Notes * Rosy Patel MD - 11/30/2022 2:59 PM EDT NEPHROLOGY CLINIC NOTE Nephrology, [address] [address] 11/30/2022, 2:59 PM Patient Name: Jsutin Pinedo BACKGROUND: 82 year old male presents for close in f/u of progressive ckd 4 verging on CKD 5 and 1.5 grams of proteinuria from tobacco abuse, htn and advanced age; high ESRD risk. PMH includes severe lung dz, stroke w/ residual R leg weakness and R arm pain, renal cell carcinoma, CAD, monoclonal gammopathy follows w/ [facility]. History of late acute/subacute lacunar infarct of the right posterior temporal/occipital white matter -- picked up during 04/2017 HTN urgency admission. Hx HTN since 1998. Sees [facility] urologist in [place] annually >> for 2.6 cm left renal [...] no residual issues. Follows w/ Dr Olmstead [facility] cardiology. Pt withCAD > [place] in 1998 and one stent in 1998 at [place]. Hx of smoking cigarettes/cigars until the . has marked RLS. Fell down steps day 2021 but "saved the turkey." Falls often. Had extensive course of antifungals fall 2017 for mycotic pulmonary infection>>Admission summer 2017 [place] [facility] RML, higher K -- in fall 2017, diagnosed with pulmonary fungal infection and started on itraconazole. Follows w/ [facility] pulm, last seen 02/2019. also follows with local exhaust worker Dr Jain. Since health events 2018 (stroke, PNA, pulmonary fungal infection), much poorer functional status>> prior to summer 2017 illness could do 9 holes golf w/o issue, could haddad/fish - limited by energy; not limited by breathing. Then Fall/winter 2017-2019 after that summer PNA, breathing much worse and energy lower; exertional dypsnea w/ walking to front desk worker. Huffs and puffs to walk 50 yards on flat and tired but could still talk; but breathing better than it had been earlier 2018 fall when he would have had to sit and rest to walk same distance same surface. May 2020 walks 50 feet before needing to sit/rest. Admitted [facility] February 01 to 2021 with acute on chronic kidney injury as well as pneumonia from COVID-19. Admission creatinine 4.2, peak creatinine 4.6, plateau around 4. TRACY from [facility] related to ischemia and hypoxia. No nsaids. 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 TODAY 11/30/2022: finished course of doxycycline recently for "butt sore," had salve. Feels symptomshave resolved. No other acute interval clinical events. We discussed goals of ESRD care once again. He is considering incenter hemo at [place] versus [place] at this point with possibility of transitioning later to D. Continues to follow with CKD nurse case manager. Has functional AV fistula. Continues to work with mental health and addiction counseling on week days. Sees Dr. hSankar in December. Acc by . REVIEW OF SYSTEMS General: No fatigue, No change in weight Head: No significant headache Respiratory: + chronic cough mainly in the morningNo wheezing, + shortness of breath -with exertion Cardiovascular:No chest pain, No palpitations, and No syncope Gastrointestinal: No nausea, vomiting, diarrhea No blood in stools No abdominal pain Urinary: No dysuira, No hematuria. No flank pain Musculoskeletal: No muscle/joint pains , + chronic edema of LE dependent; severe leg cramps disruptsleep at times Skin: No itching No orthostatic or presyncopal sx; 3 in one week falls this summer no injuries apart from bruises Current Outpatient Medications Medication Sig Dispense Refill nitroglycerin (NITROSTAT) 0.4 MG SUBL 1 Tablet. Ventolin HFA 108 (90 Base) MCG/ACT Inhalation Aerosol Solution Inhale by mouth 2 Puffs every 4 hours as needed for Wheezing. 18 g 1 NIFEdipine ER Osmotic Release 60 MG Oral Tablet Extended Release 24 Hour Take by mouth 1 Tablet in the morning AND 1 Tablet before bedtime. 180 Tablet 3 Fluticasone Propionate (Inhal) 50 MCG/BLIST Inhalation Aerosol Powder Breath Activated Inhale 1 Puff by mouth in the morning and 1 Puff before bedtime. Albuterol Sulfate (2.5 MG/3ML) 0.083% Inhalation Nebulization Solution (Proventil) Inhale 1 Vial (2.5 mg) via nebulizer every 6 hours as needed for Wheezing. 360 mL 0 Furosemide 40 MG Oral Tablet (Lasix) Take 1 Tablet by mouth in the morning. 30 Tablet 11 Rosuvastatin Calcium 40 MG Oral Tablet (Crestor) Take 1 Tablet by mouth in the morning. 90 Tablet 3 Sodium Bicarbonate 650 MG Oral Tablet Take 1 Tablet by mouth in the morning and 1 Tablet before bedtime. 120 Tablet 11 Melatonin 10 MG Oral Capsule Take 1 Capsule by mouth at bedtime. Carvedilol 3.125 MG Oral Tablet (Coreg) Take [...] NEEDED FOR INSOMNIA 30 Tablet 1 Nystatin 469345 UNIT/GM External Cream Apply topically to affected area 2 times a day. To affacted area for two weeks. 30 g 0 Doxycycline Hyclate 100 MG Oral Capsule Take 1 Capsule by mouth in the morning and 1 Capsule beforebedtime. Take for 7 days. (Patient not taking: Reported on 11/30/2022) 14 Capsule 0 No current facility-administered medications for this visit. Review of patient's allergies indicates: No Known Allergies PHYSICAL EXAMINATION: BP Readings from Last 6 Encounters: 11/30/22 124/59 11/13/22 124/68 11/01/22 116/62 10/17/22 146/70 08/08/22 129/51 07/19/22 116/52 Wt Readings from Last 6 Encounters: 11/30/22 86.6 kg (191 lb) 11/13/22 75.8 kg (167 lb) 11/01/22 76.2 kg (168 lb) 08/08/22 76.2 kg (168 lb) 07/19/22 89.4 kg (197 lb) 05/07/22 81.6 kg (180 lb) Pulse Readings from Last 6 Encounters: 11/30/22 75 11/13/22 74 11/01/22 65 10/17/22 64 08/08/22 67 07/19/22 77 NAD, oriented x 3, ambulatory w/ cane Normocephalic, atraumatic, eomi nonicteric sclerae MMM Supple neck RRR w/o m/g/r; trace BLE edema CTAB w/ reasonable air mvt NT abd, +BS, soft No cyanosis or clubbing; AVF +t/b R RC No rash No tremor, focal or global weakness; fluent speech, good historian for most part LABS: Recent Labs Units 11/30/22 1543 08/08/22 1236 07/12/22 1350 06/20/22 1213 SODIUM - [facility] mmol/L 142 141 141 142 POTASSIUM - [facility] mmol/L 5.3* 4.5 4.3 4.6 CHLORIDE - [facility] mmol/L 108* 103 104 105 CO2 - [facility] mmol/L 20* 26 23 26 BUN - [facility] mg/dL 68* 69* 75* 66* CREATININE - [facility] mg/dL 3.8* 3.6* 3.8* 3.5* ESTIMATED GLOMERULAR FILTRATION RATE - [facility] mL/min 15* 16* 15* 17* Recent Labs Units 11/30/22 1543 06/20/22 1213 06/05/22 0000 05/29/22 0000 HGB - [facility] g/dL 9.3* 9.5* -- -- HEMOGLOBIN-OUTSIDE LAB G/DL -- -- 9.3* 9.7* TRANSFERRIN SATURATION PERCENT - [facility] % 25 -- -- -- Recent Labs Units 11/30/22 1543 08/08/22 1236 07/12/22 1350 06/20/22 1213 04/18/22 1005 12/07/21 1115 07/19/21 1601 CALCIUM - [facility] mg/dL 8.2* 8.4 8.3* 8.5 8.7 < > 8.7 PHOSPHORUS - [facility] mg/dL 5.5* -- 4.8 4.9* 4.6 -- 4.7 25-HYDROXY VITAMIN D - [facility] ng/mL 25 -- 23 -- -- -- -- PTH - [facility] pg/mL 155* -- 206* -- -- -- 76* [...] stage IV (GFR 15-29 ml/min) (HCC) (Primary) - PHARMACIST MEDS THERAPY MGMT REFERRAL OP - HEP B VACCINE, 20+ YRS (3-DOSE) - URIC ACID - PTH - HGB - IRON SCREEN, INCLUDING TIBC Metabolic acidosis HTN, goal below 130/80 Left renal mass Persistent proteinuria, unspecified Encounter for immunization - HEP B VACCINE, 20+ YRS (3-DOSE) Follow Up: Return in about 3 months (around 03/01/2023) for clinic visit w/ . | For: clinic visitw/ | Check-out note: only In MV To lab CKD 4 bordering on stage 5 on labs from July 2022 w/ bmp reviewed above. Chemistries and volume status acceptable. No ruremic sx. July 2022 ACR reviewed and still severe albuminuria though improving. High esrd risk in the next year. Has mature AVF -update labs -not a candidate for ASHLI unless hematology signs off given active RCC surveillance -continue sodium bicarb -start hep B series CKD to ESRD Status CKD Education: NO; follows actively [facility] CKD Cse Mgt Modality Education: 06/14/22 Ketty, post Options appt 05/07/22 Preferred Modality: ICHD and later to ludy [facility] versus Jocelyn Booth Surgeon Referral: Dr Bre Booth Placed: June 2022 Transplant Listing: not eligible Continue sodium bicarb an update labs HTN w/ acceptabel control ? Continue nifedipine, lasix, coreg, hydralazien current doses There are no Patient Instructions on file for this visit. Rosy Patel MD Nephrology, [address] [place] [address] CC: Ref: [id number]] NO STREET ADDRESS AVAILABLE None (office) None (fax) PCP: LONDON ARORA [address] [place] [address] BENJI Chandra [phone] This chart was completed in part utilizing [employer] Speech Voice Recognition Software. Randomword insertions, pronoun errors, and incomplete sentences are an occasional consequence of this system due to software limitations, and ambient noise. Any questions or concerns about the content, text, or information contained within the body of this dictation should be directly addressed to the provider for clarification. * Gabby Sosa RN - 11/30/2022 2:55 PM EDT Follow up visit today. AVF patent right AC. States he is feeling well. documented in this encounter Plan of Treatment Upcoming Encounters Date Type Specialty Care Team Description 04/01/2023 Office Visit Nephrology Deirdre Salinas MD [address] [place] [address] BENJI Moyer [phone] Scheduled Referrals Name Type Priority Associated Diagnoses Orde r Schedule PHARMACIST MEDS THERAPY MGMT REFERRAL OP Referral Within 10 days (routine) Kidney disease, chronic, stage IV (GFR 15-29 ml/min) (HCC) Ordered: 11/30/2022 Health Maintenance Due Date Last [...] Procedure Name Priority Date/Time Associated Diagnosis Comments IRON SCREEN, INCLUDING TIBC Routine 11/30/2022 3:43 PM EDT Kidney disease, chronic, stage IV (GFR 15-29 ml/min) (HCC) HGB Routine 11/30/2022 3:43 PM EDT Kidney disease, chronic, stage IV (GFR 15-29 ml/min) (HCC) PTH Routine 11/30/2022 3:43 PM EDT Kidney disease, chronic, stage IV (GFR 15-29 ml/min) (HCC) URIC ACID Routine 11/30/2022 3:43 PM EDT Kidney disease, chronic, stage IV (GFR 15-29 ml/min) (HCC) documented in this encounter Results * (ABNORMAL) IRON SCREEN, INCLUDING TIBC (11/30/2022 3:43 PM EDT) Iron 61 45 - 176 ug/dL 11/30/2022 10:51 PM EDT [facility] Iron Binding Capacity 248(L) 250 - 425 ug/dL 11/30/2022 10:51 PM EDT [facility] Transferrin Saturation Percent 25 15 - 55 % 11/30/2022 10:51 PM EDT [facility] Blood Venous blood specimen / Unknown Venipuncture / Unknown 11/30/2022 3:43 PM EDT 11/30/2022 3:43 PM EDT Rosy Patel MD LAB BLOOD ORDERAB LES Performing Organization Address City/State/[facility] Co de Phone Number [facility]ORY [facility] [address] [place] [address] * (ABNORMAL) HGB (11/30/2022 3:43 PM EDT) HGB 9.3(L) 14.0 - 16.8 g/dL 11/30/2022 3:53 PM EDT LAB[facility]ATORY [place] [facility]02 Blood Venous blood specimen / Unknown Venipuncture / Unknown 11/30/2022 3:43 PM EDT 11/30/2022 3:43 PM EDT Rosy Patel MD LAB BLOOD ORDERAB LES [facility] [place] [address] [place] [address] * (ABNORMAL) PTH (11/30/2022 3:43 PM EDT) PTH 155(H) 15 - 65 pg/mL 11/30/2022 11:24 PM EDT [facility] Blood Venous blood specimen / Unknown Venipuncture / Unknown 11/30/2022 3:43 PM EDT 11/30/2022 3:43 PM EDT Rosy Patel MD LAB BLOOD ORDERAB LES Performing Organization Address City/[facility]/ZIP Co de Phone Number [facility] [address] [place] [address] * URIC ACID (11/30/2022 3:43 PM EDT) Uric Acid 6.5 3.4 - 7.0 mg/dL 11/30/2022 10:51 PM EDT [facility] Blood Venous blood specimen / Unknown Venipuncture / Unknown 11/30/2022 3:43 PM EDT 11/30/2022 3:43 PM EDT Rosy Patel MD LAB BLOOD ORDERAB LES Performing Organization Address City/[facility]/ZIP Co de Phone Number [facility] [address] [place] [address] documented in this encounter Visit Diagnoses Diagnosis Kidney disease, chronic, stage IV (GFR 15-29 ml/min) ([facility])- Primary Chronic kidney disease, Stage IV (severe) Metabolic acidosis Acidosis HTN, goal below 130/80 Unspecified essential hypertension Left renal mass Unspecified disorder of kidney and ureter Persistent proteinuria, unspecified Encounter for immunization Need for other specified prophylactic vaccination against single bacterial disease documented in this encounter Care Teams Running Rigger Relationship Specialty Start Date End Date London Arora MD [address] [place] [address] BENJI Chandra [phone] PCP - General Family Medicine 11/21/21 documented as of this encounter
--- OUTSIDE RECORDS SUMMARY | 2023-05-15 03:39 | External Medical Summary | Summary of Care ---
Author Name Unknown Organization [facility] Address [address] [place] [address] Phone [phone] Care Team Providers Care Bushing And Broach Operator Name Role Phone Jody Arora MD Primary Care Provide r Reason for Visit * Reason Onset Date Comments Appointment 11/20/2022 Encounter Details Date Type Department Care Team Description 11/20/2022 Telephone Nephrology, [place]itz[place] [address] [place] [address] Rosy Patel MD [address] [place] [address] Appointment Allergies No known active allergiesdocumented as of this encounter (statuses as of 11/20/2022) Medications Medication Sig Dispensed Refills Start Date [...] group C, by GOLD 2017 classification ([facility]) Inhale 3 mL via nebulizer every 4 hours as needed for Wheezing. 120 mL 1 10/17/2022 Active hydrALAZINE HCl 25 MG Oral Tablet (Apresoline) Take 1 tablet by mouth twice daily 180 Tablet 2 11/06/2022 Active hydrOXYzine HCl 50 MG Oral TabletIndications:Celine sharron insomnia TAKE 1 TABLET BY MOUTH AT BEDTIME NEEDED FOR INSOMNIA 30 Tablet 1 11/07/2022 Active Doxycycline Hyclate 100 MG Oral CapsuleIndications:Ce llulitis of buttock Take 1 Capsule by mouth in the morning and 1 Capsule before bedtime. Take for 7 days. 14 Capsule 0 11/09/2022 Active Nystatin [id number] UNIT/GM External CreamIndications:Skin yeast infection Apply topically to affected area 2 times a day. To affacted area for two weeks. 30 g 0 11/13/2022 Active documented as of this encounter (statuses as of 11/20/2022) Active Problems Problem Noted Date Papillary renal [...] renal mass 07/11/2017 Overview: 2018 biopsy at [facility] per patient "kidney cancer". States he was advised he was not a surgical candidate. Carotid stenosis, right 07/11/2017 History of stroke 07/11/2017 Overview: TIA vs lacunar stroke diagnosed on head CT in [place] Apr 2017. Follow up MRI [facility] no infarct. Anxiety 07/11/2017 HTN, goal below 140/90 08/02/2015 Coronary artery disease Dyslipidemia, goal LDL below 100 documented as of this encounter (statuses as of 11/20/2022) Resolved Problems Problem Noted Date Resolved Date [...] as of this encounter (statuses as of 11/20/2022) Immunizations Name Administration Dates Next Due COVID-19 [...] Telephone Encounter - Gabby Sosa RN - 11/20/2022 2:01 PM EDT Please call pt to get him scheduled at in the next few weeks. * Telephone Encounter - Gabby Sosa RN - 11/20/2022 2:00 PM EDT ----- Message from Rosy Patel MD sent at 11/06/2022 2:35 PM EDT ----- Please work with schedulers he can and should be in a new return slot and is due for appointment now as 3 month follow-up Team please check back in 2 weeks to ensure he has been scheduled documented in this encounter Plan of Treatment Upcoming Encounters Date Type Specialty Care Team Description 11/30/2022 Office Visit Nephrology Rosy Patel MD [address] [place] [phone] Health Maintenance Due Date Last Done Comments Alpha-1 Antitrypsin 1958 Hepatitis B (2 of 3 - 19+ 3-dose series) 02/05/2018 01/08/2018 *COPD SEVERITY VERIFIED BY PFT 07/16/2020 Depression Screening, Annual for Pts 12 and Over 02/28/2021 02/29/2020 COVID-19 Vaccine (4 - Moderna series) 03/07/2021 01/10/2021, 05/24/2020, 04/26/2020 Influenza Vaccine (FLU shot) (#1) 2022 12/07/2021, 12/05/2020, 12/18/2019, Additional history exists GFR 02/08/2023 08/08/2022, 06/17, 06/20/2022, Additional history exists Hgb 06/21/2023 06/20/2022, 03/2 03/2022, 05/29/2022, Additional history exists PTH 07/13/2023 07/12/2022, 05/0 06/2021, 03/24/2020, Additional history exists Phosphate 07/13/2023 07/12/2022, 04/0 07/2022, 04/18/2022, Additional history exists Albumin/Creatinine Ratio 08/09/2023 023, 12/07/2021, 08/10/2021, Additional history exists Nephrology Referral 08/09/2023 08/08/2022 O2 ASSESSMENT COMPLETED IN PAST YEAR FOR COPD 11/14/2023 11/13/2022 DTaP,Tdap,and Td Vaccines (2 - Td or [...] filedocumented as of this encounter Care Teams Bushing And Broach Operator Relationship Specialty Start Date End Date Jdoy Arora MD [address] [place] [address] BENJI Chandra [phone] PCP - General Family Medicine 11/21/21 documented as of this encounter
--- OUTSIDE RECORDS SUMMARY | 2023-05-15 03:39 | External Medical Summary ---
Author Name Unknown Address Unknown Organization [id number]:LABORATORY [facility] - [address] [place] [address] Laboratory Report Ordering Provider Test Date Status OLEGARIO MALDONADO 11/30/2022 15:43:32 Final Observation Date Value Abnormality Reference (Units ) Status Albumin 11/30/2022 15:43:32 4.4 3.8-5.0 (g /dL) Final Performing Location [facility] [address] [facility] [address]
--- OUTSIDE RECORDS SUMMARY | 2023-05-15 03:39 | External Medical Summary ---
Author Name Unknown Address Unknown Organization [id number]:[facility] [place] [address] [place] [address] Laboratory Report Ordering Provider Test Date Status OLEGARIO MALDONADO 11/30/2022 15:43:32 Final Deficient: <20 ng/mL
Ins ufficient: 20-29 ng/mL
Recommended/Optimum:30-50 ng/mL

Vitamin D intoxication is rare. If suspicious of Vitamin D toxicity, evaluation of serum Calcium and PTH is recommended. Observation Date Value Abnormality Reference (Units ) Status 25-OH Vitamin D total 11/30/2022 15:43:32 25 >19 (ng/mL) Final Performing Location [facility] - [address] [place] [address]
--- OUTSIDE RECORDS SUMMARY | 2023-05-15 03:39 | External Medical Summary ---
Author Name Unknown Address Unknown Organization K01:[facility] - [address] [place] [address] Laboratory Report Ordering Provider Test Date Status OLEGARIO MALDONADO 11/30/2022 15:43:32 Final Observation Date Value Abnormality Reference (Units ) Status Phosphate 11/30/2022 15:43:32 5.5 Above high normal 2. 5-4.8 (mg/dL) Final Performing Location [facility] - [address] [place] [address]
--- OUTSIDE RECORDS SUMMARY | 2023-05-15 03:39 | External Medical Summary | Summary of Care ---
Author Name Unknown Organization [facility] Address [address] [place] [address] Phone [phone] Care Team Providers Care Cigar Patcher Name Role Phone Jody Arora MD Primary Care Provide r Reason for Visit * Reason Onset Date Comments Med Request 11/20/2022 Encounter Details Date Type Department Care Team Description 11/20/2022 Telephone Family Medicine [address] [address] Jody Arora MD [address] [place] [address] [place] [address] Med Request Allergies No known active allergiesdocumented as of this encounter (statuses as of 11/26/2022) Medications Medication Sig Dispensed Refills Start Date [...] (HCC),COPD, group C, by GOLD 2017 classification ([facility]) Inhale 3 mL via nebulizer every 4 [...] days. 14 Capsule 0 11/09/2022 Active Nystatin 398517 UNIT/GM External CreamIndications:Skin yeast infection Apply topically to affected area 2 times a day. To affacted area for two weeks. 30 g 0 11/13/2022 Active documented as of this encounter (statuses as of 11/26/2022) Active Problems Problem Noted Date Papillary renal [...] renal mass 07/11/2017 Overview: 2018 biopsy at [facility] per patient "kidney cancer". States he was advised he was not a surgical candidate. Carotid stenosis, right 07/11/2017 History of stroke 07/11/2017 Overview: TIA vs lacunar stroke diagnosed on head CT in [place] Apr 2017. Follow up MRI [facility] no infarct. Anxiety 07/11/2017 HTN, goal below 140/90 08/02/2015 Coronary artery disease Dyslipidemia, goal LDL below 100 documented as of this encounter (statuses as of 11/26/2022) Resolved Problems Problem Noted Date Resolved Date [...] as of this encounter (statuses as of 11/26/2022) Immunizations Name Administration Dates Next Due COVID-19 [...] Telephone Encounter - Galina Gray LPN - 11/20/2022 2:44 PM EDT Patient called to request refill on insomnia medication, did not know the name of med Advised that there is a refill available on his Hydroxyzine for Insomnia He asked that I call [facility] in [place] because they do not know it has a refill on it - advised that I would call them Called [facility] - they are aware that there is a refill available on the Hydroxyzine but itis too soon to refill it She states that patient use to take Trazodone and maybe he was talking about that med (D/C'd 10/03/22) She states that he also requested a refill on his Doxycycline that was just prescribed on 11/09/22 and that is not usually a refillable medication, but she sent a refill request (see other refill message in chart) Attempted to call patient back, no answer, left message to call office Please review with patient the above information and find out what insomnia med he needs and why heis requesting a refill on his Doxycycline when he calls back documented in this encounter Plan of Treatment Upcoming Encounters Date Type Specialty Care Team Description 11/30/2022 Office Visit Nephrology Rosy Patel MD [address] [place] [address] Health Maintenance Due Date Last Done Comments Alpha-1 Antitrypsin 1958 Hepatitis B (2 of 3 - 19+ 3-dose series) 02/05/2018 01/08/2018 *COPD SEVERITY VERIFIED BY PFT 07/16/2020 Depression Screening 02/28/2021 02/29/2020 COVID-19 Vaccine (4 - Moderna series) 03/07/2021 01/10/2021, 05/24/2020, 04/26/2020 Influenza Vaccine (FLU shot) (#1) 2022 12/07/2021, 12/05/2020, 12/18/2019, Additional history exists GFR 02/08/2023 08/08/2022, 04/2 09/2022, 06/20/2022, Additional history exists Hgb 06/21/2023 06/20/2022, 05/17, 05/29/2022, Additional history exists PTH 07/13/2023 07/12/2022, [...] filedocumented as of this encounter Care Teams Cigar Patcher Relationship Specialty Start Date End Date Jody Arora MD [address] [place] [address] [place] [address] PCP - General Family Medicine 11/21/21 documented as of this encounter
--- OUTSIDE RECORDS SUMMARY | 2023-05-15 03:39 | External Medical Summary | Summary of Care ---
Author Name Unknown Organization [facility] Address [address] [place] [address] Phone [phone] Care Team Providers Care Alley Worker Name Role Phone Jody Arora MD Primary Care Provide r Reason for Visit * Reason Comments Outpatient Testing Encounter Details Date Type Department Care Team Description 11/30/2022 Laboratory Laboratory [facility] [place] [address] [place] [address] [place], [address] [place] [address] Kidney disease, chronic, stage IV (GFR 15-29 ml/min) ([facility]); Vitamin D deficiency Allergies No known active allergiesdocumented as of this encounter (statuses as of 11/30/2022) Medications Medication Sig Dispensed Refills Start Date [...] 11/07/2022 Active Doxycycline Hyclate 100 MG Oral CapsuleIndications:C ellulitis of buttock Take 1 Capsule by mouth in the morning and 1 Capsule before bedtime. Take for 7 days. 14 Capsule 0 11/09/2022 Active Additional Information Patient not taking.Reported on 11/30/2022 Nystatin [id number] UNIT/GM External CreamIndications:Ski n yeast infection Apply topically to affected area 2 times a day. To affacted area for two weeks. 30 g 0 11/13/2022 Active documented as of this encounter (statuses as of 11/30/2022) Active Problems Problem Noted Date Papillary renal [...] renal mass 07/11/2017 Overview: 2018 biopsy at [facility] per patient "kidney cancer". States he was advised he was not a surgical candidate. Carotid stenosis, right 07/11/2017 History of stroke 07/11/2017 Overview: TIA vs lacunar stroke diagnosed on head CT in [place] Apr 2017. Follow up MRI [facility] no infarct. Anxiety 07/11/2017 HTN, goal below 140/90 08/02/2015 Coronary artery disease Dyslipidemia, goal LDL below 100 documented as of this encounter (statuses as of 11/30/2022) Resolved Problems Problem Noted Date Resolved Date [...] as of this encounter (statuses as of 11/30/2022) Immunizations Name Administration Dates Next Due COVID-19 [...] 04/01/2023 Office Visit Nephrology Deirdre Salinas MD [address] [place] [address] [place] [id number] Pending Results Name Type Priority Associated Diagnoses Date /Time BASIC METABOLIC PANEL Lab Routine Kidney disease, chronic, stage IV (GFR 15-29 ml/min) ([facility]) Vitamin D deficiency 11/30/2022 3:43 PM EDT ALBUMIN Lab Routine Kidney disease, chronic, stage IV (GFR 15-29 ml/min) ([facility]) Vitamin D deficiency 11/30/2022 3:43 PM EDT PHOSPHORUS Lab Routine Kidney disease, chronic, stage IV (GFR 15-29 ml/min) ([facility]) Vitamin D deficiency 11/30/2022 3:43 PM EDT 25-HYDROXY VITAMIN D Lab Routine Kidney disease, chronic, stage IV (GFR 15-29 ml/min) ([facility]) Vitamin D deficiency 11/30/2022 3:43 PM EDT Health Maintenance Due Date Last [...] 06/17, 06/20/2022, Additional history exists Hgb 06/21/2023 11/30/2022, 04/0 07/2022, 06/05/2022, Additional history exists PTH 07/13/2023 07/12/2022, 05/0 [...] (HCC) Chronic kidney disease, Stage IV (severe) Vitamin D deficiency Unspecified vitamin D deficiency documented in this encounter Care Teams Alley Worker Relationship Specialty Start Date End Date Jody Arora MD [address] [place] [address] [place] [address] PCP - General Family Medicine 11/21/21 documented as of this encounter
--- OUTSIDE RECORDS SUMMARY | 2023-05-15 03:39 | External Medical Summary ---
Author Name Unknown Address Unknown Organization [id number][facility] [place] [address] Laboratory Report Ordering Provider Test Date Status OLEGARIO MALDONADO 11/30/2022 15:43:32 Final Observation Date Value Abnormality Reference (Units ) Status Hemoglobin 11/30/2022 15:43:32 9.3 Below low normal 14 .0-16.8 (g/dL) Final Performing Location [facility] [place] [address]
--- OUTSIDE RECORDS SUMMARY | 2023-05-15 03:39 | External Medical Summary ---
Author Name Unknown Address Unknown Organization [facility] [address] [place] [address] Laboratory Report Ordering Provider Test Date Status OLEGARIO MALDONADO 11/30/2022 15:43:32 Final Observation Date Value Abnormality Reference (Units ) Status Iron 11/30/2022 15:43:32 61 45-176 (ug/dL) Final Iron-binding capacity 11/30/2022 15:43:32 248 Below low normal 250-425 (ug/dL) Final Transferrin Sat % 11/30/2022 15:43:32 25 15-55 (%) Final Performing Location [facility] [address] [place] [address]
--- OUTSIDE RECORDS SUMMARY | 2023-05-15 03:39 | External Medical Summary ---
Author Name Unknown Address Unknown Organization K01[facility] [address] [place] [address] Laboratory Report Ordering Provider Test Date Status OLEGARIO MALDONADO 11/30/2022 15:43:32 Final Observation Date Value Abnormality Reference (Units ) Status Parathyrin.intact [Mass/volume] in Serum or Plasma 11/30/2022 15:43:32 155 Above high normal 15-65 (pg/mL) Final Performing Location [facility] [address] [place] [address]
--- OUTSIDE RECORDS SUMMARY | 2023-05-15 03:39 | External Medical Summary | Summary of Care ---
Author Name Unknown Organization [facility] Address [address] [place] [address] Phone [phone] Care Team Providers Care Fib[employer] Finisher Name Role Phone Jody Arora MD Primary Care Provide r Reason for Visit * Reason Comments eRx-Medication Refill Encounter Details Date Type Department Care Team Description 11/20/2022 Refill Family Medicine [address] [address] Jody Arora MD [address] [place] [address] [place] [address] Cellulitis of buttock Allergies No known active allergiesdocumented as of this encounter (statuses as of 11/21/2022) Medications Medication Sig Dispensed Refills Start Date [...] days. 14 Capsule 0 11/09/2022 Active Nystatin [id number] UNIT/GM External CreamIndications:Skin yeast infection Apply topically to affected area 2 times a day. To affacted area for two weeks. 30 g 0 11/13/2022 Active documented as of this encounter (statuses as of 11/21/2022) Active Problems Problem Noted Date Papillary renal [...] renal mass 07/11/2017 Overview: 2018 biopsy at [facility] per patient "kidney cancer". States he was advised he was not a surgical candidate. Carotid stenosis, right 07/11/2017 History of stroke 07/11/2017 Overview: TIA vs lacunar stroke diagnosed on head CT in [place] Apr 2017. Follow up MRI [facility] no infarct. Anxiety 07/11/2017 HTN, goal below 140/90 08/02/2015 Coronary artery disease Dyslipidemia, goal LDL below 100 documented as of this encounter (statuses as of 11/21/2022) Resolved Problems Problem Noted Date Resolved Date [...] as of this encounter (statuses as of 11/21/2022) Immunizations Name Administration Dates Next Due COVID-19 [...] Miscellaneous Notes * Telephone Encounter - Gurinder Vargas RPh - 11/21/2022 3:17 PM EDTRefused Prescriptions: Disp Refills Doxycycline Hyclate 100 MG Oral Capsule 14 Cap*0 Sig: TAKE 1 CAPSULE BY MOUTH IN THE MORNING AND THEN TAKE 1 CAPSULE BEFORE BEDTIME FOR 7 DAYSRefused By: Simran VARGAS for Refusal: Course of treatment complete documented in this encounter Plan of Treatment Upcoming Encounters Date Type Specialty Care Team Description 11/30/2022 Office Visit Nephrology Rosy Patel MD [address] [place] [address] Health Maintenance Due Date Last Done Comments [...] 06/20/2022, Additional history exists Hgb 06/21/2023 06/20/2022, 032 03/2022, 05/29/2022, Additional history exists PTH 07/13/2023 [...] as of this encounter Visit Diagnoses Diagnosis Cellulitis of buttock Cellulitis and abscess of buttock documented in this encounter Care Teams Fib[employer] Boat [employer] Finisher Relationship Specialty Start Date End Date Jody Arora MD [address] [place] [address] [place] [address] PCP - General Family Medicine 11/21/21 documented as of this encounter
[2023-05-15 04:06] LABS: Hematocrit (blood only) 27.8 % (42.0-52.0); Hemoglobin 8.6 g/dl (14.0-18.0); Mean Corpuscular Hemoglobin 25.7 pg (25.0-34.0); Mean Corpuscular Hgb Conc 30.9 g/dL (32.0-36.0); Mean Platelet Volume 10.6 fL (9.4-12.4); Platelet Count 150 K/uL (130-400); RDW Coefficient of Variation 15.8 % (11.5-14.5); RDW Standard Deviation 46.7 fL (36.4-46.3); Red Blood Count 3.35 M/uL (4.70-6.10); White Blood Count 10.51 K/ul (4.8-10.8)
[2023-05-15 04:16] LABS: Alanine Aminotransferase 9 U/L (7-52); Albumin Globulin Ratio 1.2 (0.9-2); Albumin Level 3.4 gm/dl (3.4-5.0); Alkaline Phosphatase 48 U/L (34-104); Anion Gap 11 (3-11); Aspartate Aminotransferase 12 U/L (13-39); Bilirubin,Total 0.5 mg/dl (0.2-1.0); Blood Urea Nitrogen 86 mg/dl (6-23); Calcium 7.9 mg/dl (8.6-10.3); Carbon Dioxide 26 mmol/L (21-32); Chloride 104 mmol/L (98-107); Est GFR (African American) 13.1 ml/min; Est GFR (Non-African American) 11.3 ml/min; Globulin 2.9 gm/dl (2.5-4.0); Glucose 120 mg/dl (70-99(Fasting)); Magnesium 2.2 mg/dl (1.7-2.4); Phosphorus 7.8 mg/dl (2.5-4.9); Potassium 4.5 mmol/L (3.5-5.1); Sodium 141 mmol/L (136-145); Total Protein 6.3 gm/dl (6.0-8.3)
--- NOTE | 2023-05-15 07:49 | Hospitalist Progress Note ---
Date of Service May 15, 2023 Assessment & Plan (1) Cough with hemoptysis: (2) Acute and chronic respiratory failure: (3) COPD (chronic obstructive pulmonary disease): (4) CKD (chronic kidney disease) stage 4, GFR 15-29 ml/min: Plan Mr. Pinedo is an 82 year old gentleman with history of CAD s/p stent,ESRD with AVF, COPD(wears nocturnal [id number]), MOLLY, HTN, carotid stenosis, HTN, DDD, anemia, anxiety, CVA with R sided weakness, COVID infection (02/2021), prediabet es, BPH, hx of RLE DVT and PE (was on coumadin)presented to [facility] ED due to 3 days of hemoptysis. Hemoptysis #Anemia of chronic disease, renal disease given history of malignancy, ERSD contributing to volume overload, infection, differential broad Cannot perform contrasted study 2/2 renal function/dysfunction s/p TXA neb sputum culture pending blood cultx pending Continue with IV unasyn Hgb stable, 8.7, trend Transfuse hgb < 7 Pulmonary medicine consulted - 82 yo M with a complex medical history presenting to the hospital with bibasilar pneumonia and hemoptysis. Please obtain MRSA screen. Agree with Unasyn for the time being. Obtain sputum and blood cultures. CT reviewed with bibasilar infiltrates. If hemoptysis continues and worsens, will proceed with bronchoscopy. May also consider the use of nebulized TXA. At this time, I think his hemoptysis is secondary to pneumonia. Would also recommend repeating echocardiogram to evaluate for RV dysfunction. Hemoptysis may also be due to to volume overload and elevated left ventricular end-diastolic pressure. I have added methylprednisone 40 mg twice daily to help with airway inflammation and nebulized budesonide and formoterol. We may also need to consider obtaining a CT chest with contrast to evaluate for pulmonary embolism. Patient does have a history of DVT in the past. Although at this time, history seems more consistent with pneumonia and possible aspiration component. Recommend speech therapy consult once stable. Doppler LE - negative for DVT Echo - EF 60 to 65%. There is moderate concentric LVH. Grade 1 diastolic dysfunction. RV is normal in size. RV systolic function is normal as assessed by TAPSE. Mild valvular aortic stenosis. Mild tricuspid regurg. Estimated systolic pulmonary pressure is 38 mmHg. 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 >[address] with bilateral reticular infiltrates, emphysematous changes -Continue Spiriva and Advair -Duonebs prn -Not on CPAP, continuous O2 4L with increased requirements Advair and Rescue Albuterol Pulmonary consulted, as above #HTN -Continue hydralazine 10mg BID -Continue nifedipine 60mg BID and coreg 3.125 BID #CKD #Left renal mass, RCC #Azotemia Matured AVF, plans for ICHD when necessary, not transplant candidate Seems mildly overloaded; denies decreasing UOP with lasix dosing of 40mg BID -Place thao cath -continue bicarb 650 BID -Nephrology consult for diuresis guidance , no need for dialysis at this time per nephrology -Daily weights #CAD s/p stent 1998 #Carotid stenosis, right #HLD Continue statin, coreg, bp control as above Hold asa #BPH continue tamsulosin #Mood d/o -continue venlafaxine, hydroxyzine Admission and Anticipated Discharge Date Admission Date: May 14, 2023 Subjective Pt seen in follow up of hemoptysis , resp. failure, (hx of CKD) Pulmonary medicine and nephrology consulted Pt currently on unasyn He is sitting up in bed in [facility]. Says he continues to have a cough and hemoptysis. no chest pain. No abd. pain. Currently feeling fairly comfortably as long as he is resting. Family at the bedside and updated. Review of Systems Review of Systems: All systems reviewed & are unremarkable except as noted in Subjective Physical Exam Physical Exam: GENERAL: WD/WN M in NAD HEENT: NC, AT. MMM. bilateral ecchymosis around orbits with scleral injection s/p cataract surgery last week NECK: Supple HEART: Normal rate and regular rhythm, normal S1/S1, no m/r/g LUNGS: rhonchorous breath sounds, crackles ABDOMEN: Soft, nontender, nondistended with good bowel sounds heard. EXTREMITIES: moves extremities NEUROLOGICAL: Alert and oriented, speech fluent, no facial asymmetry, moving all 4 extremities Skin: Warm and dry Results & Data Results & Data Vital Signs (Past 12 Hours) Vital Signs Pulse Pulse Resp BP BP Pulse Ox O2 Del Method 05/15/23 06:00 87 38 H 05/15/23 05:50 89 24 05/15/23 05:40 88 20 05/15/23 05:30 85 23 96 05/15/23 05:20 83 27 H 92 05/15/23 05:10 82 26 H 93 05/15/23 05:01 80 24 95 05/15/23 05:01 87 17 145/73 H 96 Nasal Cannula 05/15/23 05:00 87 17 96 05/15/23 05:00 83 26 H 145/73 H 96 Nasal Cannula 05/15/23 04:50 89 26 H 95 05/15/23 04:40 88 20 96 05/15/23 04:30 91 H 21 05/15/23 04:20 83 24 05/15/23 04:10 84 35 H 95 05/15/23 04:00 81 25 H 96 05/15/23 03:50 83 30 H 96 05/15/23 03:40 79 22 94 05/15/23 03:30 81 25 H 93 05/15/23 03:20 80 24 94 05/15/23 03:10 81 25 H 05/15/23 03:00 86 24 91 05/15/23 03:00 86 24 158/66 H 91 05/15/23 02:50 83 26 H 93 05/15/23 02:40 80 25 H 93 05/15/23 02:30 75 24 90 05/15/23 02:20 76 23 93 05/15/23 02:10 76 24 93 05/15/23 02:00 76 24 95 05/15/23 02:00 76 24 141/97 H 95 05/15/23 01:50 78 27 H 92 05/15/23 01:40 78 22 95 05/15/23 01:30 77 29 H 96 05/15/23 01:20 75 25 H 96 05/15/23 01:10 78 29 H 95 05/15/23 01:02 79 23 92 05/15/23 00:50 77 26 H 133/67 94 05/15/23 00:50 77 26 H 94 05/15/23 00:40 75 22 05/15/23 00:30 74 20 05/15/23 00:20 74 22 96 05/15/23 00:10 78 22 05/15/23 00:00 72 26 H 05/14/23 23:50 74 27 H 05/14/23 23:40 75 22 05/14/23 23:30 79 24 05/14/23 23:23 82 05/14/23 23:20 84 22 05/14/23 23:10 86 22 91 05/14/23 23:00 87 33 H 92 05/14/23 22:50 82 21 95 05/14/23 22:40 84 26 H 94 05/14/23 22:30 84 23 94 05/14/23 22:20 84 22 92 05/14/23 22:10 84 26 H 93 05/14/23 22:00 87 24 94 05/14/23 21:54 91 H 05/14/23 21:50 91 H 27 H 93 05/14/23 21:49 93 H 20 89 L 05/14/23 21:47 Nasal Cannula 05/14/23 21:47 95 H 21 136/58 L 94 Nasal Cannula 05/14/23 21:47 Nasal Cannula 05/14/23 21:30 90 23 05/14/23 21:20 85 23 94 05/14/23 21:17 84 24 93 Nasal Cannula 05/14/23 21:10 85 21 95 05/14/23 21:00 84 22 136/58 L 95 05/14/23 21:00 84 22 95 05/14/23 20:55 85 22 95 05/14/23 20:55 132/75 05/14/23 20:50 83 23 94 05/14/23 20:40 90 21 05/14/23 20:30 90 29 H 05/14/23 20:20 87 21 05/14/23 20:10 84 25 H 05/14/23 20:00 80 19 05/14/23 19:50 87 22 05/14/23 19:40 90 29 H O2 Flow Rate 05/15/23 06:00 05/15/23 05:50 05/15/23 05:40 05/15/23 05:30 05/15/23 05:20 05/15/23 05:10 05/15/23 05:01 05/15/23 05:01 4 05/15/23 05:00 05/15/23 05:00 4 05/15/23 04:50 05/15/23 04:40 05/15/23 04:30 05/15/23 04:20 05/15/23 04:10 05/15/23 04:00 05/15/23 03:50 05/15/23 03:40 05/15/23 03:30 05/15/23 03:20 05/15/23 03:10 05/15/23 03:00 05/15/23 03:00 05/15/23 02:50 05/15/23 02:40 05/15/23 02:30 05/15/23 02:20 05/15/23 02:10 05/15/23 02:00 05/15/23 02:00 05/15/23 01:50 05/15/23 01:40 05/15/23 01:30 05/15/23 01:20 05/15/23 01:10 05/15/23 01:02 05/15/23 00:50 05/15/23 00:50 05/15/23 00:40 05/15/23 00:30 05/15/23 00:20 05/15/23 00:10 05/15/23 00:00 05/14/23 23:50 05/14/23 23:40 05/14/23 23:30 05/14/23 23:23 05/14/23 23:20 05/14/23 23:10 05/14/23 23:00 05/14/23 22:50 05/14/23 22:40 05/14/23 22:30 05/14/23 22:20 05/14/23 22:10 05/14/23 22:00 05/14/23 21:54 05/14/23 21:50 05/14/23 21:49 05/14/23 21:47 4 05/14/23 21:47 4 05/14/23 21:47 4 05/14/23 21:30 05/14/23 21:20 05/14/23 21:17 4 05/14/23 21:10 05/14/23 21:00 05/14/23 21:00 05/14/23 20:55 05/14/23 20:55 05/14/23 20:50 05/14/23 20:40 05/14/23 20:30 05/14/23 20:20 05/14/23 20:10 05/14/23 20:00 05/14/23 19:50 05/14/23 19:40 Laboratory Results 05/15/23 05/14/23 05/14/23 Range/Units 03:33 20:50 14:30 WBC 10.51 (4.8-10.8) K/ul RBC 3.35 L (4.70-6.10) M/uL Hgb 8.6 L (14.0-18.0) g/dl Hct 27.8 L (42.0-52.0) % MCV 83.0 (80.0-100.0) fL MCH 25.7 (25.0-34.0) pg MCHC 30.9 L (32.0-36.0) g/dL RDW Std Deviation 46.7 H (36.4-46.3) fL RDW Coeff of John 15.8 H (11.5-14.5) % Plt Count 150 (130-400) K/uL MPV 10.6 (9.4-12.4) fL Immature Gran % (Auto) % Neut % (Auto) % Lymph % (Auto) % [place] % (Auto) % Eos % (Auto) % Baso % (Auto) % Neut # (Auto) (1.40-6.50) K/uL Lymph # (Auto) (1.20-3.40) K/uL [place] # (Auto) (0.11-0.59) K/uL Eos # (Auto) (0.00-0.50) K/uL Baso # (Auto) (0.00-0.20) K/uL Immature Gran # (Auto) (0.01-0.20) K/uL PT (9.0-12.0) Seconds INR (0.9-1.1) APTT (21-31) Seconds PTT Ratio Sodium 141 (136-145) mmol/L Potassium 4.5 (3.5-5.1) mmol/L Chloride 104 (98-107) mmol/L Carbon Dioxide 26 (21-32) mmol/L Anion Gap 11 (3-11) BUN 86 H (6-23) mg/dl Creatinine 4.52 H* (0.6-1.4) mg/dl Est Cr Clr Drug Dosing Not Reportable Est GFR ( Amer) 13.1 ml/min Est GFR (Non-Af Amer) 11.3 ml/min BUN/Creatinine Ratio 19.0 (10-20) Glucose 120 H (70-99(Fasting)) mg/dl Calcium 7.9 L (8.6-10.3) mg/dl Phosphorus 7.8 H (2.5-4.9) mg/dl Magnesium 2.2 (1.7-2.4) mg/dl Total Bilirubin 0.5 (0.2-1.0) mg/dl AST 12 L (13-39) U/L ALT 9 (7-52) U/L Alkaline Phosphatase 48 (34-104) U/L Troponin I High Sens (0-20) pg/ml B-Natriuretic Peptide (0-100) pg/ml Total Protein 6.3 (6.0-8.3) gm/dl Albumin 3.4 (3.4-5.0) gm/dl Globulin 2.9 (2.5-4.0) gm/dl Albumin/Globulin Ratio 1.2 (0.9-2) Procalcitonin (0-0.5) ng/ml Urine Color Yellow Urine Appearance Clear (Clear) Urine pH 5.5 (4.5-7.5) Ur Specific [place] 1.012 (1.000-1.030) Urine Protein Negative (Negative) Urine Glucose (UA) Negative (Negative) Urine Ketones Negative (Negative) Urine Blood Negative (Negative) Urine Nitrite Negative (Negative) Urine Bilirubin Negative (Negative) Urine Urobilinogen Negative (Negative) Ur Leukocyte Esterase Negative (Negative) Adenovirus (PCR) Not Detected (NotDetected) B. pertussis DNA (PCR) Not Detected (NotDetected) B.parapertussis DNA PCR Not Detected (NotDetected) C. pneumoniae DNA (PCR) Not Detected (NotDetected) Coronavirus OC43 (PCR) Not Detected (NotDetected) Coronavirus HKU1 (PCR) Not Detected (NotDetected) Coronavirus 229E (PCR) Not Detected (NotDetected) SARS-CoV-2 (PCR) Not Detected (NotDetected) Coronavirus NL63 (PCR) Not Detected (NotDetected) Human Metapneumovir PCR Not Detected (NotDetected) Influenza Type A (PCR) Not Detected (NotDetected) Influenza Type B (PCR) Not Detected (NotDetected) M. pneumoniae (PCR) Not Detected (NotDetected) Parainfluenza 1 (PCR) Not Detected (NotDetected) Parainfluenza 2 (PCR) Not Detected (NotDetected) Parainfluenza 3 (PCR) Not Detected (NotDetected) Parainfluenza 4 (PCR) Not Detected (NotDetected) RSV (PCR) Not Detected (NotDetected) Entero/Rhino (PCR) Not Detected (NotDetected) Blood Type Antibody Screen 05/14/23 Range/Units 14:13 WBC 11.79 H (4.8-10.8) K/ul RBC 3.44 L (4.70-6.10) M/uL Hgb 8.7 L (14.0-18.0) g/dl Hct 28.6 L (42.0-52.0) % MCV 83.1 (80.0-100.0) fL MCH 25.3 (25.0-34.0) pg MCHC 30.4 L (32.0-36.0) g/dL RDW Std Deviation 46.5 H (36.4-46.3) fL RDW Coeff of John 15.6 H (11.5-14.5) % Plt Count 162 (130-400) K/uL MPV 10.4 (9.4-12.4) fL Immature Gran % (Auto) 0.6 % Neut % (Auto) 86.9 % Lymph % (Auto) 3.8 % [place] % (Auto) 7.5 % Eos % (Auto) 0.9 % Baso % (Auto) 0.3 % Neut # (Auto) 10.23 H (1.40-6.50) K/uL Lymph # (Auto) 0.45 L (1.20-3.40) K/uL [place] # (Auto) 0.89 H (0.11-0.59) K/uL Eos # (Auto) 0.11 (0.00-0.50) K/uL Baso # (Auto) 0.04 (0.00-0.20) K/uL Immature Gran # (Auto) 0.07 (0.01-0.20) K/uL PT 12.4 H (9.0-12.0) Seconds INR 1.1 (0.9-1.1) APTT 31 (21-31) Seconds PTT Ratio 1.1 Sodium 141 (136-145) mmol/L Potassium 4.2 (3.5-5.1) mmol/L Chloride 103 (98-107) mmol/L Carbon Dioxide 30 (21-32) mmol/L Anion Gap 8 (3-11) BUN 80 H (6-23) mg/dl Creatinine 4.54 H* (0.6-1.4) mg/dl Est Cr Clr Drug Dosing Not Reportable Est GFR ( Amer) 13.0 ml/min Est GFR (Non-Af Amer) 11.2 ml/min BUN/Creatinine Ratio 17.6 (10-20) Glucose 143 H (70-99(Fasting)) mg/dl Calcium 8.4 L (8.6-10.3) mg/dl Phosphorus (2.5-4.9) mg/dl Magnesium 1.9 (1.7-2.4) mg/dl Total Bilirubin 0.5 (0.2-1.0) mg/dl AST 12 L (13-39) U/L ALT 9 (7-52) U/L Alkaline Phosphatase 50 (34-104) U/L Troponin I High Sens 17.2 (0-20) pg/ml B-Natriuretic Peptide 123 H (0-100) pg/ml Total Protein 6.8 (6.0-8.3) gm/dl Albumin 3.7 (3.4-5.0) gm/dl Globulin 3.1 (2.5-4.0) gm/dl Albumin/Globulin Ratio 1.2 (0.9-2) Procalcitonin 0.35 (0-0.5) ng/ml Urine Color Urine Appearance (Clear) Urine pH (4.5-7.5) Ur Specific [place] (1.000-1.030) Urine Protein (Negative) Urine Glucose (UA) (Negative) Urine Ketones (Negative) Urine Blood (Negative) Urine Nitrite (Negative) Urine Bilirubin (Negative) Urine Urobilinogen (Negative) Ur Leukocyte Esterase (Negative) Adenovirus (PCR) (NotDetected) B. pertussis DNA (PCR) (NotDetected) B.parapertussis DNA PCR (NotDetected) C. pneumoniae DNA (PCR) (NotDetected) Coronavirus OC43 (PCR) (NotDetected) Coronavirus HKU1 (PCR) (NotDetected) Coronavirus 229E (PCR) (NotDetected) SARS-CoV-2 (PCR) (NotDetected) Coronavirus NL63 (PCR) (NotDetected) Human Metapneumovir PCR (NotDetected) Influenza Type A (PCR) (NotDetected) Influenza Type B (PCR) (NotDetected) M. pneumoniae (PCR) (NotDetected) Parainfluenza 1 (PCR) (NotDetected) Parainfluenza 2 (PCR) (NotDetected) Parainfluenza 3 (PCR) (NotDetected) Parainfluenza 4 (PCR) (NotDetected) RSV (PCR) (NotDetected) Entero/Rhino (PCR) (NotDetected) Blood Type O Negative Antibody Screen NEGATIVE Medications Administered Current Inpatient Medications Acetaminophen (Acetaminophen 325 Mg Tab) 650 mg PO Q4H PRN PRN Reason: Pain or Fever Stop: 06/13/23 21:16 Albuterol (Albut/Ipratrop 3mg/0.5mg Neb 3 Ml Vial) 3 ml NEB QIDR PRN; Protocol PRN Reason: wheezing Stop: 06/13/23 21:16 Aspirin (Aspirin 81 Mg Ectab) 81 mg PO QAM MARCOS Stop: 06/14/23 08:59 Carvedilol (Carvedilol 3.125 Mg Tab) 3.125 mg PO BID MARCOS Stop: 06/13/23 21:16 Last Admin: 05/14/23 22:38 Dose: 3.125 mg Erythromycin (Erythromycin Op Oint 5 Mg/Gm 3.5 Gm Tube) appln OP QID MARCOS Stop: 05/24/23 21:16 Fluticasone/Vilanterol (Fluticasone/Vilanterol 200/25mcg 14 Puffs/Inhaler) 1 puffs INH DAILY MARCOS Stop: 06/14/23 08:59 Furosemide (Furosemide 40 Mg/4 Ml Vial) 40 mg IV BID MARCOS Stop: 06/13/23 20:59 Last Admin: 05/14/23 20:17 Dose: 40 mg Hydralazine HCl (Hydralazine 10 Mg Tab) 10 mg PO BID MARCOS Stop: 06/13/23 21:16 Last Admin: 05/14/23 22:37 Dose: 10 mg Hydroxyzine HCl (Hydroxyzine Hcl 25 Mg Tab) 50 mg PO HS PRN PRN Reason: Insomnia Stop: 06/13/23 21:16 Ampicillin Sodium/Sulbactam Sodium 1,500 mg/ Sodium Chloride 100 mls @ 200 mls/hr IV Q6H MARCOS Stop: 05/21/23 19:59 Last Infusion: 05/15/23 05:04 Dose: Infused Melatonin (Melatonin 3 Mg Tab) 9 mg PO HS MARCOS Stop: 06/13/23 21:16 Last Admin: 05/14/23 22:36 Dose: 9 mg Miscellaneous (Erythromycin Oph Oint - Order Awaiting Action) 1 each N/A QS [facility] Stop: 06/14/23 07:59 Nifedipine (Nifedipine Extended Rel 30 Mg Tabcr) 60 mg PO DAILY MARCOS Stop: 06/14/23 08:59 Nitroglycerin (Nitroglycerin Sl 0.4 Mg/Tab Tab) 0.4 mg SL UD PRN PRN Reason: Chest Pain Stop: 06/13/23 21:16 Rosuvastatin Calcium (Rosuvastatin Calcium 10 Mg Tab) 10 mg PO QPM MARCOS Stop: 06/13/23 21:16 Last Admin: 05/14/23 22:37 Dose: 10 mg Sodium Bicarbonate (Sodium Bicarbonate 650 Mg Tab) 1,300 mg PO BID MARCOS Stop: 06/13/23 21:16 Last Admin: 05/14/23 22:38 Dose: 1,300 mg Tamsulosin HCl (Tamsulosin Hcl 0.4 Mg Cap) 0.4 mg PO QAM [facility] Stop: 06/14/23 08:59 Umeclidinium [place] (Umeclidinium [place] 62.5mcg/Blister 7 Puffs/Inhaler) 1 puffs INH QAM [facility] Stop: 06/14/23 08:59 Venlafaxine HCl (Venlafaxine Hcl Xr 37.5 Mg Capxr) 37.5 mg PO DAILY [facility] Stop: 06/14/23 08:59 (2) Acute and chronic respiratory failure Respiratory failure complication: hypoxia Qualified Code(s): J96.21 - Acute and chronic respiratory failure with hypoxia
[2023-05-15] MEDS: NIFEdipine EXTENDED REL 30 MG TABCR PO SCH (08:59)
[2023-05-15] MEDS: TAMSULOSIN HCL 0.4 MG CAP PO SCH (09:00)
[2023-05-15] MEDS ORDERED: ASPIRIN 81 MG ECTAB PO SCH (09:00)
[2023-05-15] MEDS: UMECLIDINIUM BROMIDE 62.5MCG/BLISTER 7 PUFFS/INHALER INH SCH (09:01)
[2023-05-15] MEDS: VENLAFAXINE HCL XR 37.5 MG CAPXR PO SCH (09:01)
[2023-05-15] MEDS: FLUTICASONE/VILANTEROL 200/25MCG 14 PUFFS/INHALER INH SCH (09:05)
--- NOTE | 2023-05-15 10:14 | Electrocardiogram Report ---
Test Reason : Blood Pressure : / mmHG Vent. Rate : 088 BPM Atrial Rate : 088 BPM P-R Int : 176 ms QRS Dur : 140 ms QT Int : 410 ms P-R-T Axes : 049 -72 048 degrees QTc Int : 496 ms Sinus rhythm with Premature atrial complexes Right bundle branch block Left anterior fascicular block Bifascicular block Abnormal ECG No previous ECGs available Confirmed by Aureliano Carpio ([id number] on 05/15/2023 10:14:23 AM Referred By: REFERRED SELF Confirmed By:Aureliano Carpio
--- NOTE | 2023-05-15 10:41 | Pulmonary Consultation ---
Date of Consultation May 15, 2023 Assessment & Plan (1) Cough with hemoptysis: (2) PNA (pneumonia): (3) End-stage renal disease (ESRD): (4) History of DVT (deep vein thrombosis): Plan 82-year-old male with a complex medical history including end-stage renal disease on hemodialysis, prior stroke, renal cell carcinoma and COPD presenting to the hospital with bibasilar pneumonia and hemoptysis. Please obtain MRSA screen. Agree with Unasyn for the time being. Obtain sputum and blood cultures. CT reviewed with bibasilar infiltrates. If hemoptysis continues and worsens, will proceed with bronchoscopy. May also consider the use of nebulized TXA. At this time, I think his hemoptysis is secondary to pneumonia. Would also recommend repeating echocardiogram to evaluate for RV dysfunction. Hemoptysis may also be due to to volume overload and elevated left ventricular end-diastolic pressure. I have added methylprednisone 40 mg twice daily to help with airway inflammation and nebulized budesonide and formoterol. We may also need to consider obtaining a CT chest with contrast to evaluate for pulmonary embolism. Patient does have a history of DVT in the past. Although at this time, history seems more consistent with pneumonia and possible aspiration component. Recommend speech therapy consult once stable. Thank you for the consult. Pulmonary will continue to follow History of Present Illness Reason for Consultation: Hemoptysis Attending Physician: Gilmar Henderson MD History of Present Illness 82-year-old male with a history of CAD status post stenting, ESRD on HD, COPD, carotid artery stenosis, anemia and anxiety who presented to the hospital due to shortness of breath and hemoptysis. Patient notes over the past 3 days he has been having teaspoon size bouts of hemoptysis 5-10 times a day. He also notes some hemoptysis this morning. He denies any fevers or chills. He does endorse some shortness of breath over the past 1 [address] revealed bibasilar infiltrates, right greater than left. Labs significant for anemia which appears to be chronic. Platelet count 150. INR 1.1. PTT 31. Echo from 06/22/2021 revealed an EF of 60%. Patient was started on Unasyn by the hospitalist service. He was also started on diuresis with Lasix 40 mg twice daily. Aspirin has been held. Allergies Allergy/AdvReac Type Severity Reaction Status Date / Time No Known Allergies Allergy Verified 06/26/22 11:36 Home Medications Medication Instructions Recorded Confirmed Type carvedilol 3.125 mg tablet (Coreg) 3.125 mg PO BID 02/01/22 05/14/23 History nifedipine 60 mg tablet,extended 60 mg PO BID 02/01/22 05/14/23 History release 24 hr (Procardia XL) venlafaxine 37.5 mg 37.5 mg PO DAILY 02/01/22 05/14/23 History capsule,extended release 24 hr (Effexor XR) furosemide 40 mg tablet (Lasix) 40 mg PO QAM 06/19/22 05/14/23 History melatonin 10 mg capsule 10 mg PO HS 06/19/22 05/14/23 History sodium bicarbonate 650 mg tablet 1,300 mg PO [facility] 06/19/22 05/14/23 History tamsulosin 0.4 mg capsule (Flomax) 0.4 mg PO QAM 06/19/22 05/14/23 History albuterol sulfate 2.5 mg/3 mL 2.5 mg inhalation UD 05/14/23 05/14/23 History (0.083 %) solution for nebulization albuterol sulfate 5 mg/mL(0.5 %) 2.5 mg inhalation UD 05/14/23 05/14/23 History solution for nebulization erythromycin 5 mg/gram (0.5 %) eye 0.25 inch ophthalmic (eye) QID 05/14/23 05/14/23 History ointment fluticasone 250 mcg-salmeterol 50 1 inh inhalation [facility] 05/14/23 05/14/23 History mcg/dose blistr powdr for inhalation (Advair Diskus) furosemide 20 mg tablet 20 mg PO QAM 05/14/23 05/14/23 History hydralazine 10 mg tablet 10 mg PO [facility] 05/14/23 05/14/23 History hydroxyzine HCl 50 mg tablet 50 mg PO HS PRN Insomnia 05/14/23 05/14/23 History menthol 0.44 %-zinc oxide 20.6 % 1 applic topical BID 05/14/23 05/14/23 History topical ointment (Calmoseptine) nitroglycerin 0.4 mg sublingual 0.4 mg sublingual UD PRN Chest Pain 05/14/23 05/14/23 History tablet (Nitrostat) rosuvastatin 10 mg tablet 10 mg PO QAM 05/14/23 05/14/23 History tiotropium bromide 2.5 2 inh inhalation QAM 05/14/23 05/14/23 History mcg/actuation mist for inhalation (Spiriva Respimat) Patient History Medical History (Updated 05/15/23 @ 10:41 by Rogelio Villavicencio MD) History of DVT (deep vein thrombosis) Urinary frequency Hx of blood clots "IN MY LEGS AND 1 IN MY LUNGS A LONG TIME AGO">WAS ON BLOOD THINNERS, CAUSED BY PHLEBITIS History of COVID-19 02/02/22>STILL HAS FATIGUE Adjustment disorder with mixed disturbance of emotions and conduct History of basal cell carcinoma Carotid stenosis, right 50-69% stenosis to right ICA; <50% stenosis to left ICA per 06/22/21 carotid duplex Dyslipidemia BPH (benign prostatic hyperplasia) Coronary artery disease S/p stent 1998 HTN (hypertension) History of stroke 2016 OR 2017 >NO RESIDUAL History of CA (myocardial infarction) 1998 MOLLY and COPD overlap syndrome WEARS 4L O2 AT HS Prediabetes PT DENIES Renal osteodystrophy Chronic hypoxemic respiratory failure Anemia of chronic renal failure Hgb 8-9's per record review CKD (chronic kidney disease) stage 4, GFR 15-29 ml/min FOLLOWED BY JOEL RIVERA>HAS NOT STARTED DIALYSIS YET COPD (chronic obstructive pulmonary disease) Papillary renal cell carcinoma WITH MALIGNANCY>NO TREATMENT YET (CURRENT DX) Surgical History History of anesthesia reaction SLOW TO WAKE UP History of arthroscopy LEFT KNEE History of colonoscopy History of tooth extraction History of tonsillectomy History of cataract surgery RT/LEFT History of cholecystectomy History of appendectomy History of heart artery stent 1998>? # STENTS PLACED IN [facility] (FOLLWED BY DR. JACK SOUSA [facility]IOLOGY) Family History Other Colorectal cancer No family history of adverse response to anesthesia Social History Smoking Status: Never smoker Second Hand Exposure: No; Do You Dip or Chew Tobacco: No; Hx Alcohol Use: No Hx Substance Use: No Preferred Language: Serbian Communication Ability: Effective Member Services Coordinator Required: No Beliefs That Will Affect Care: None Current Living Situation: Spouse Other Information That Helps Us Care for You: No Feels Safe at Home: Yes Safety Concerns: Feels Safe At This Time Assistive Devices: Cane and Oxygen - at Night Review of Systems Review of Systems: All systems reviewed & are unremarkable except as noted in HPI & below Physical Exam Physical Exam: Constitutional: Patient appears to be of their stated age. Patient is in no apparent distress. Patient is well-developed. Eyes: Pupils are equal round and reactive to light. Conjunctivae are normal. Anicteric sclera. Ears nose, mouth and throat: Mallampati class 2. Normal posterior oropharynx. Uvula is midline. Neck: Trachea is midline. Visual inspection is normal. Respiratory: Diffuse rhonchi. No increased work of breathing. Occasional cough. Cardiovascular: Regular rate and rhythm. No murmurs. No edema. Gastrointestinal: Normal bowel sounds, soft, nontender and nondistended. No hepatosplenomegaly noted. Musculoskeletal: No cyanosis. Patient is able to move all extremities. Strength is 5 out of 5 in the upper and lower extremities. Skin: No rashes, warm dry and intact. Neurologic: No obvious focal neurological deficits seen. Psychiatric: Alert and oriented x3 with a euthymic affect. Results & Data Results & Data Vital Signs (Past 12 Hours) Vital Signs Temp Pulse Pulse Resp BP BP Pulse Ox 05/15/23 08:39 05/15/23 08:38 37.0 C 85 22 131/72 94 05/15/23 07:50 90 22 131/72 96 05/15/23 07:47 89 05/15/23 07:40 90 25 H 92 05/15/23 07:30 89 26 H 87 L 05/15/23 07:20 87 21 92 05/15/23 07:10 87 22 94 05/15/23 07:00 92 H 25 H 91 05/15/23 06:50 94 H 28 H 93 05/15/23 06:40 88 20 91 05/15/23 06:30 87 20 91 05/15/23 06:20 90 24 05/15/23 06:10 88 23 05/15/23 06:00 87 38 H 05/15/23 05:50 89 24 05/15/23 05:40 88 20 05/15/23 05:30 85 23 96 05/15/23 05:20 83 27 H 92 05/15/23 05:10 82 26 H 93 05/15/23 05:01 80 24 95 05/15/23 05:01 87 17 145/73 H 96 05/15/23 05:00 87 17 96 05/15/23 05:00 83 26 H 145/73 H 96 05/15/23 04:50 89 26 H 95 05/15/23 04:40 88 20 96 05/15/23 04:30 91 H 21 05/15/23 04:20 83 24 05/15/23 04:10 84 35 H 95 05/15/23 04:00 81 25 H 96 05/15/23 03:50 83 30 H 96 05/15/23 03:40 79 22 94 05/15/23 03:30 81 25 H 93 05/15/23 03:20 80 24 94 05/15/23 03:10 81 25 H 05/15/23 03:00 86 24 91 05/15/23 03:00 86 24 158/66 H 91 05/15/23 02:50 83 26 H 93 05/15/23 02:40 80 25 H 93 05/15/23 02:30 75 24 90 05/15/23 02:20 76 23 93 05/15/23 02:10 76 24 93 05/15/23 02:00 76 24 95 05/15/23 02:00 76 24 141/97 H 95 05/15/23 01:50 78 27 H 92 05/15/23 01:40 78 22 95 05/15/23 01:30 77 29 H 96 05/15/23 01:20 75 25 H 96 05/15/23 01:10 78 29 H 95 05/15/23 01:02 79 23 92 05/15/23 00:50 77 26 H 133/67 94 05/15/23 00:50 77 26 H 94 05/15/23 00:40 75 22 05/15/23 00:30 74 20 05/15/23 00:20 74 22 96 05/15/23 00:10 78 22 05/15/23 00:00 72 26 H 05/14/23 23:50 74 27 H 05/14/23 23:40 75 22 02/27/24 23:30 79 24 05/14/23 23:23 82 05/14/23 23:20 84 22 05/14/23 23:10 86 22 91 05/14/23 23:00 87 33 H 92 05/14/23 22:50 82 21 95 05/14/23 22:40 84 26 H 94 O2 Del Method O2 Flow Rate 05/15/23 08:39 Nasal Cannula 4 05/15/23 08:38 Nasal Cannula 4 05/15/23 07:50 05/15/23 07:47 05/15/23 07:40 05/15/23 07:30 05/15/23 07:20 05/15/23 07:10 05/15/23 07:00 05/15/23 06:50 05/15/23 06:40 05/15/23 06:30 05/15/23 06:20 05/15/23 06:10 05/15/23 06:00 05/15/23 05:50 05/15/23 05:40 05/15/23 05:30 05/15/23 05:20 05/15/23 05:10 05/15/23 05:01 05/15/23 05:01 Nasal Cannula 4 05/15/23 05:00 05/15/23 05:00 Nasal Cannula 4 05/15/23 04:50 05/15/23 04:40 05/15/23 04:30 05/15/23 04:20 05/15/23 04:10 05/15/23 04:00 05/15/23 03:50 05/15/23 03:40 05/15/23 03:30 05/15/23 03:20 05/15/23 03:10 05/15/23 03:00 05/15/23 03:00 05/15/23 02:50 05/15/23 02:40 05/15/23 02:30 05/15/23 02:20 05/15/23 02:10 05/15/23 02:00 05/15/23 02:00 05/15/23 01:50 05/15/23 01:40 05/15/23 01:30 05/15/23 01:20 05/15/23 01:10 05/15/23 01:02 05/15/23 00:50 05/15/23 00:50 05/15/23 00:40 05/15/23 00:30 05/15/23 00:20 05/15/23 00:10 05/15/23 00:00 05/14/23 23:50 05/14/23 23:40 05/14/23 23:30 05/14/23 23:23 05/14/23 23:20 05/14/23 23:10 05/14/23 23:00 05/14/23 22:50 05/14/23 22:40 PG Care Time/CCT Total # of Minutes Spent Total Time Spent with Patient: Total time spent is greater than 50% in coordination of care (as documented) at patient's floor/unit and/or counseling patient: Coding Level of Care Code 65791 INT INP/OBS CARE 3/75MIN Diagnoses Cough with hemoptysis R04.2 PNA (pneumonia) J18.9 End-stage renal disease (ESRD) N18.6 History of DVT (deep vein thrombosis) Z86.718
[2023-05-15] MEDS: FORMOTEROL 20 MCG/2 ML VIAL NEB SCH (11:16)
[2023-05-15] MEDS: methylPREDNISolone 40 MG in SYRINGE 0 ML IV SCH (11:31)
--- NOTE | 2023-05-15 12:49 | Nephrology Consultation ---
Date of Consultation May 15, 2023 Assessment & Plan (1) Acute kidney injury superimposed on CKD: current creatinine of 4.5 is slightly higher than his most recent outpatient creatinine of 3.6 but he has readings of 4's multiple times in the last 1 year. he is already status post AV fistula in preparation for dialysis. at this time he does not appear to have any significant electrolyte issues or fluid overload. will continue his outpatient Lasix 40 twice daily. continue sodium bicarb his phosphorus is high-- can be dealt with as outpatient. hemoglobin is lower than usual--- not unexpected as there will always be acute drop with pneumonia in a patient with pre-existing anemia of CKD. He was very anxious about knowing the kidney function and potential need of dialysis. based on the current electrolyte and fluid situation and current symptomatology and current renal function he does not need dialysis. however he has not completely out of danger of needing dialysis during this admission. his AV fistula seems ready and we will use that if needed. (2) Cough with hemoptysis: (3) PNA (pneumonia): reviewed pulmonary note in detail. Symptoms related with pneumonia and no major evidence of fluid overload Plan Case complexity high. reviewed outpatient note as well as pulmonary medicine and H&P History of Present Illness Reason for Consultation: acute kidney injury on background CKD 4 now admitted with shortness of breath Attending Physician: Gilmar Henderson MD History of Present Illness 82-year-old male well known to [facility] and follows with Dr. Joel Patel. for the last 1 year or so his GFR has been around 15 and is already status post AV fistula creation for preparation of dialysis. also has left renal mass for which he gets periodic MRI through Urology he presented to the hospital yesterday because of hemoptysis and shortness of breath. already been seen by Pulmonary and conclusion is pneumonia as the cause of the symptoms. his last outpatient creatinine was 3.6 as of March 2023. current creatinine is 4.5. he does have anemia of CKD with the last outpatient hemoglobin of 9.3 current hemoglobin is 8.6. he does take Lasix--- patient claims she takes Lasix 40 twice daily but the prescription says 60 daily. he is making urine and is currently on oxygen 4 liters/minute. He was very anxious about knowing the kidney function and potential need of dialysis review of systems---- positive for hemoptysis shortness of breath and cough. otherwise 12 systems reviewed and negative Physical Exam Physical Exam: Constitutional: Patient is in some res distress. on 4 L nasal cannula Patient is well-developed. 95% O2 sats supple and no JVD. normal speech and able to give detailed account of his medical problems Respiratory: Diffuse rhonchi. No increased work of breathing. Occasional cough. Cardiovascular: Regular rate and rhythm. No murmurs. No edema. Gastrointestinal: Normal bowel sounds, soft, nontender and nondistended. No hepatosplenomegaly noted. Musculoskeletal: No cyanosis. Patient is able to move all extremities. Skin: No rashes, warm dry and intact. Neurologic: No obvious focal neurological deficits seen. Psychiatric: Alert and oriented x3 with a euthymic affect. Allergies Allergy/AdvReac Type Severity Reaction Status Date / Time No Known Allergies Allergy Verified 06/26/22 11:36 Home Medications Medication Instructions Recorded Confirmed Type carvedilol 3.125 mg tablet (Coreg) 3.125 mg PO BID 02/01/22 05/14/23 History nifedipine 60 mg tablet,extended 60 mg PO BID 02/01/22 05/14/23 History release 24 hr (Procardia XL) venlafaxine 37.5 mg 37.5 mg PO DAILY 02/01/22 05/14/23 History capsule,extended release 24 hr (Effexor XR) furosemide 40 mg tablet (Lasix) 40 mg PO QAM 06/19/22 05/14/23 History melatonin 10 mg capsule 10 mg PO HS 06/19/22 05/14/23 History sodium bicarbonate 650 mg tablet 1,300 mg PO [facility] 06/19/22 05/14/23 History tamsulosin 0.4 mg capsule (Flomax) 0.4 mg PO QAM 06/19/22 05/14/23 History albuterol sulfate 2.5 mg/3 mL 2.5 mg inhalation UD 05/14/23 05/14/23 History (0.083 %) solution for nebulization albuterol sulfate 5 mg/mL(0.5 %) 2.5 mg inhalation UD 05/14/23 05/14/23 History solution for nebulization erythromycin 5 mg/gram (0.5 %) eye 0.25 inch ophthalmic (eye) QID 05/14/23 05/14/23 History ointment fluticasone 250 mcg-salmeterol 50 1 inh inhalation [facility] 05/14/23 05/14/23 History mcg/dose blistr powdr for inhalation (Advair Diskus) furosemide 20 mg tablet 20 mg PO QAM 05/14/23 05/14/23 History hydralazine 10 mg tablet 10 mg PO [facility] 05/14/23 05/14/23 History hydroxyzine HCl 50 mg tablet 50 mg PO HS PRN Insomnia 05/14/23 05/14/23 History menthol 0.44 %-zinc oxide 20.6 % 1 applic topical BID 05/14/23 05/14/23 History topical ointment (Calmoseptine) nitroglycerin 0.4 mg sublingual 0.4 mg sublingual UD PRN Chest Pain 05/14/23 05/14/23 History tablet (Nitrostat) rosuvastatin 10 mg tablet 10 mg PO QAM 05/14/23 05/14/23 History tiotropium bromide 2.5 2 inh inhalation QAM 05/14/23 05/14/23 History mcg/actuation mist for inhalation (Spiriva Respimat) Patient History Medical History History of DVT (deep vein thrombosis) Urinary frequency Hx of blood clots "IN MY LEGS AND 1 IN MY LUNGS A LONG TIME AGO">WAS ON BLOOD THINNERS, CAUSED BY PHLEBITIS History of COVID-19 02/02/22>STILL HAS FATIGUE Adjustment disorder with mixed disturbance of emotions and conduct History of basal cell carcinoma Carotid stenosis, right 50-69% stenosis to right ICA; <50% stenosis to left ICA per 06/22/21 carotid duplex Dyslipidemia BPH (benign prostatic hyperplasia) Coronary artery disease S/p stent 1998 HTN (hypertension) History of stroke 2017 OR 2018 >NO RESIDUAL History of SC (myocardial infarction) 1998 MOLLY and COPD overlap syndrome WEARS 4L O2 AT HS Prediabetes PT DENIES Renal osteodystrophy Chronic hypoxemic respiratory failure Anemia of chronic renal failure Hgb 8-9's per record review CKD (chronic kidney disease) stage 4, GFR 15-29 ml/min FOLLOWED BY JOEL RIVERA>HAS NOT STARTED DIALYSIS YET COPD (chronic obstructive pulmonary disease) Papillary renal cell carcinoma WITH MALIGNANCY>NO TREATMENT YET (CURRENT DX) Surgical History History of anesthesia reaction SLOW TO WAKE UP History of arthroscopy LEFT KNEE History of colonoscopy History of tooth extraction History of tonsillectomy History of cataract surgery RT/LEFT History of cholecystectomy History of appendectomy History of heart artery stent 1998>? # STENTS PLACED IN [facility] (FOLLWED BY DR. JACK SOUSA [facility]IOLOGY) Family History Other Colorectal cancer No family history of adverse response to anesthesia Social History Smoking Status: Never smoker Second Hand Exposure: No; Do You Dip or Chew Tobacco: No; Hx Alcohol Use: No Hx Substance Use: No Preferred Language: Croatian Communication Ability: Effective Parking Meter Installer Required: No Beliefs That Will Affect Care: None Current Living Situation: Spouse Other Information That Helps Us Care for You: No Feels Safe at Home: Yes Safety Concerns: Feels Safe At This Time Assistive Devices: Cane and Oxygen - at Night Results & Data Vital Signs (Past 12 Hours) Vital Signs Temp Pulse Pulse Resp BP BP Pulse Ox 05/15/23 11:30 73 21 95 05/15/23 11:19 75 20 93 05/15/23 08:39 05/15/23 08:38 37.0 C 85 22 131/72 94 05/15/23 07:50 90 22 131/72 96 05/15/23 07:47 89 05/15/23 07:40 90 25 H 92 05/15/23 07:30 89 26 H 87 L 05/15/23 07:20 87 21 92 05/15/23 07:10 87 22 94 05/15/23 07:00 92 H 25 H 91 05/15/23 06:50 94 H 28 H 93 05/15/23 06:40 88 20 91 05/15/23 06:30 87 20 91 05/15/23 06:20 90 24 05/15/23 06:10 88 23 05/15/23 06:00 87 38 H 05/15/23 05:50 89 24 05/15/23 05:40 88 20 05/15/23 05:30 85 23 96 05/15/23 05:20 83 27 H 92 05/15/23 05:10 82 26 H 93 02/28/24 05:01 80 24 95 05/15/23 05:01 87 17 145/73 H 96 05/15/23 05:00 87 17 96 05/15/23 05:00 83 26 H 145/73 H 96 05/15/23 04:50 89 26 H 95 05/15/23 04:40 88 20 96 05/15/23 04:30 91 H 21 05/15/23 04:20 83 24 05/15/23 04:10 84 35 H 95 05/15/23 04:00 81 25 H 96 05/15/23 03:50 83 30 H 96 05/15/23 03:40 79 22 94 05/15/23 03:30 81 25 H 93 05/15/23 03:20 80 24 94 05/15/23 03:10 81 25 H 05/15/23 03:00 86 24 91 05/15/23 03:00 86 24 158/66 H 91 05/15/23 02:50 83 26 H 93 05/15/23 02:40 80 25 H 93 05/15/23 02:30 75 24 90 05/15/23 02:20 76 23 93 05/15/23 02:10 76 24 93 05/15/23 02:00 76 24 95 05/15/23 02:00 76 24 141/97 H 95 05/15/23 01:50 78 27 H 92 05/15/23 01:40 78 22 95 05/15/23 01:30 77 29 H 96 05/15/23 01:20 75 25 H 96 05/15/23 01:10 78 29 H 95 05/15/23 01:02 79 23 92 05/15/23 00:50 77 26 H 133/67 94 05/15/23 00:50 77 26 H 94 O2 Del Method O2 Flow Rate 05/15/23 11:30 Nasal Cannula 4 05/15/23 11:19 Nasal Cannula 3 05/15/23 08:39 Nasal Cannula 4 05/15/23 08:38 Nasal Cannula 4 05/15/23 07:50 05/15/23 07:47 05/15/23 07:40 05/15/23 07:30 05/15/23 07:20 05/15/23 07:10 05/15/23 07:00 05/15/23 06:50 05/15/23 06:40 05/15/23 06:30 05/15/23 06:20 05/15/23 06:10 05/15/23 06:00 05/15/23 05:50 05/15/23 05:40 05/15/23 05:30 05/15/23 05:20 05/15/23 05:10 05/15/23 05:01 05/15/23 05:01 Nasal Cannula 4 05/15/23 05:00 05/15/23 05:00 Nasal Cannula 4 05/15/23 04:50 05/15/23 04:40 05/15/23 04:30 05/15/23 04:20 05/15/23 04:10 05/15/23 04:00 05/15/23 03:50 05/15/23 03:40 05/15/23 03:30 05/15/23 03:20 05/15/23 03:10 05/15/23 03:00 05/15/23 03:00 05/15/23 02:50 05/15/23 02:40 05/15/23 02:30 05/15/23 02:20 05/15/23 02:10 05/15/23 02:00 05/15/23 02:00 05/15/23 01:50 05/15/23 01:40 05/15/23 01:30 05/15/23 01:20 05/15/23 01:10 05/15/23 01:02 05/15/23 00:50 05/15/23 00:50 Laboratory Results reviewed both inpatient as well as outpatient labs Diagnostic Findings CT chest reviewed---Airspace opacity is seen in the bilateral lower lobes. Findings may represent infectious/inflammatory process, however follow-up to resolution is recommended to exclude underlying masses.
--- OUTSIDE RECORDS SUMMARY | 2023-05-15 13:05 | External Medical Summary | Summary of Care ---
Author Name Unknown Organization [facility] Address [address] [place] [address] Phone [phone] Care Team Providers Care Slot Machine Department Floorperson Name Role Phone Jody Arora MD Primary Care Provide r Reason for Visit * Reason Comments Acute Encounter Details Date Type Department Care Team (Late st Contact Info) Description 05/14/2023 11:00 AM EST Office Visit Family Medicine [address] [place] [address] Jody Arora MD [address] [place] [address] [place] [address] Bloody sputum*; Hypoxia Allergies No known active allergiesdocumented as of this encounter (statuses as of 05/14/2023) Medications Medication Sig Dispensed Refills Start Date [...] the morning 90 Capsule 1 3 Active Furosemide 20 MG Oral Tablet [...] COPD, group C, by GOLD 2017 classification ([facility]) Inhale 1 Puff by mouth in [...] Respimat 2.5 MCG/ACT Inhalation Aerosol Solution (Tiotropium Ogden Monohydrate) Inhale 2 Puffs by mouth in [...] FOR INSOMNIA 30 Tablet 3 4 Active predniSONE 10 MG Oral Tablet (Deltasone)Indicati ons:COPD exacerbation (HCC) Take 5 tabs for 2 days, 4 tabs for 2 days, 3 tabs for 2 days, 2 tabs for 2 days 1 tab for 2 days 30 Tablet 0 3 05/14/19 24 Discontinued Hospital, Clinic, or Other Facility Administered Medication Ordered Dose Route Frequency Start Date End Date Status Albuterol Sulfate (Proventil) (5 MG/ML) 0.5% *conc* inhalation solution 2.5 mgIndications:Chronic hypoxemic respiratory failure (HCC),COPD, group C, by GOLD 2017 classification ([facility]),Banks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) 2.5 mg NEBULIZER PRN 04/24/2023 04/23/2024 Active Albuterol Sulfate (Proventil) (2.5 MG/3ML) 0.083% inhalation solution 2.5 mgIndications:Chronic hypoxemic respiratory failure (HCC),COPD, group C, by GOLD 2017 classification (HCC),Banks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) 2.5 mg NEBULIZER PRN 04/24/2023 04/23/2024 Active documented as of this encounter (statuses as of 05/14/2023) Active Problems Problem Noted Date Diagnosed Date COPD, group D, by GOLD 2017 classification 04/29 Overview: Per COPD GOLD Classification 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 Follow up MRI [facility] no infarct. Anxiety 07/11/2017 HTN, goal below 140/90 08/02/2015 Coronary artery disease Dyslipidemia, goal LDL below 100 documented as of this encounter (statuses as of 05/14/2023) Resolved Problems Problem Noted Date Diagnosed Date [...] as of this encounter (statuses as of 05/14/2023) Immunizations Name Administration Dates Next Due COVID-19 [...] Sign Reading Time Taken Comments Blood Pressure 116/54 05/14/2023 10:46 AM EST Pulse 86 05/14/2023 10:46 AM EST Temperature 35.6 C (96 F) 05/14/2023 10:46 AM EST Respiratory Rate - - Oxygen Saturation 87% 05/14/2023 10:46 AM EST Inhaled Oxygen Concentration - - Weight 88.3 kg (194 lb 9.6 oz) 05/14/2023 10:46 AM EST Height - - Body Mass Index 33.4 04/24/2023 12:50 PM EST documented in this encounter Progress Notes * Sellathurai, Thiviyanath, MD - 05/14/2023 11:31 AM EST Subjective: HPI: Justin Pinedo is a 82 year old male with hx of CAD s/p stent, ESRD, COPD (wears nocturnal oxygen 4L), MOLLY, HTN, carotid stenosis, HTN, DDD, anemia, anxiety, CVA with R sided weakness, COVID infection (02/2021), prediabetes, BPH, hx of RLE DVT and PE (was on coumadin) seen for Pt has been having bloody sputum for 3 days -also having rhinorrhea +SOB + wheezing - denied any fever -- had URI symptoms 2 weeks ago per pt Patient Active Problem List Diagnosis Code HTN, goal below 140/90 I10 Left renal mass N28.89 Coronary artery disease I25.10 Carotid stenosis, right I65.21 Dyslipidemia, goal LDL below 100 E78.5 History of stroke Z86.73 Anxiety F41.9 Anemia of chronic renal failure, stage 4 (severe) (HCC) N18.4, D63.1 Not immune to hepatitis B virus Z78.9 Adjustment disorder with mixed disturbance of emotions and conduct F43.25 Paroxysmal nocturnal dyspnea R06.00 Obesity, Class I, BMI 30.0-34.9 (see actual BMI) E66.9 Chronic hypoxemic respiratory failure (HCC) J96.11 Benign hypertension with chronic kidney disease, stage IV (HCC) I12.9, N18.4 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, J44.9 History of basal cell carcinoma Z85.828 Old myocardial infarct I25.2 C7 radiculopathy M54.12 Lumbosacral radiculopathy at L5 M54.17 Renal osteodystrophy N25.0 Hx of nonmelanoma skin cancer Z85.828 AK (actinic keratosis) L57.0 Kidney disease, chronic, stage IV (GFR 15-29 ml/min) ([facility]) N18.4 BPH without obstruction/lower urinary tract symptoms N40.0 Right sided weakness R53.1 Papillary renal cell carcinoma ([facility]) C64.9 Banks miners' pneumoconiosis ([facility]) J60 COPD, group D, by GOLD 2017 classification ([facility]) J44.9 Current Outpatient Medications Medication Sig Dispense Refill nitroglycerin (NITROSTAT) 0.4 MG SUBL 1 Tablet. Melatonin 10 MG Oral Capsule Take 1 [...] equal 60mg total daily.. 90 Tablet 3 Fluticasone-Salmeterol 250-50 MCG/ACT Inhalation Aerosol Powder Breath [...] hours apart or more.. 180 Tablet 3 Sodium Bicarbonate 650 MG Oral Tablet TAKE 2 TABLETS BY MOUTH IN THE MORNING AND 2 BEFORE BEDTIME 120 Tablet 0 Rosuvastatin Calcium 10 MG Oral Tablet (Crestor) Take 1 Tablet by mouth in the morning. 90 Tablet 1 oxygen IN GAS Use 4 L/min(Oxygen) as directed. Uses "in the evening" Spiriva Respimat 2.5 MCG/ACT Inhalation Aerosol Solution (Tiotropium Ogden Monohydrate) Inhale 2 Puffs by mouth in the morning. 4 g 2 Erythromycin 5 MG/GM Ophthalmic Ointment Instill 0.25 Inches into eye in the morning and 0.25 Inches at noon and 0.25 Inches in the evening and 0.25 Inches before bedtime. Do all this for 14 days. Then daily at bedtime. 3.5 g 3 hydrOXYzine HCl 50 MG Oral Tablet TAKE 1 TABLET BY MOUTH AT BEDTIME NEEDED FOR INSOMNIA 30 Tablet 3 Ventolin HFA 108 (90 Base) MCG/ACT Inhalation Aerosol Solution Inhale by mouth 2 Puffs every 4 hours as needed for Wheezing. (Patient not taking: Reported on 04/24/2023) 18 g 1 Albuterol Sulfate (2.5 MG/3ML) 0.083% Inhalation Nebulization Solution (Proventil) Inhale 1 Vial (2.5 mg) via nebulizer every 6 hours as needed for Wheezing. (Patient not taking: Reported on 04/24/2023) 360 mL 0 Ipratropium-Albuterol 0.5-2.5 (3) MG/3ML Inhalation Solution (Duoneb) Inhale 3 mL via nebulizer every 4 hours as needed for Wheezing. (Patient not taking: Reported on 04/24/2023) 120 mL 1 Furosemide 20 MG Oral Tablet (Lasix) Take 1 Tablet by mouth in the morning. Along with one 40 mg tablet. 30 Tablet 5 Current Facility-Administered Medications Medication Dose Route Frequency Provider Last Rate Last Admin Albuterol Sulfate (Proventil) (5 MG/ML) 0.5% *conc* inhalation solution 2.5 mg 2.5 mg Nebulizer Gilbert Alexander MD Albuterol Sulfate (Proventil) (2.5 MG/3ML) 0.083% inhalation solution 2.5 mg 2.5 mg Nebulizer JOSE ALBERTON Gilbert Thomas MD Past Medical History: Diagnosis Date Basal cell carcinoma (BCC) of skin of face 07/11/2017 CKD (chronic kidney disease), stage IV (HCC) COPD (chronic obstructive pulmonary disease) (HCC) Coronary artery disease Dyslipidemia, goal LDL below 100 Microalbuminuria Myocardial infarct, old 1998 stent in [place]--Dr. 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 Pneumonia of right middle lobe due to infectious organism 01/16/2018 Pulmonary embolism (HCC) Past Surgical History: Procedure Laterality Date CHOLECYSTOTOMY OR CHOLECYSTOSTOMY, OPEN COLONOSCOPY several--Dr. Robb. normal PATIENT HAS A CORONARY ARTERY STENT 1998 REMOVAL OF APPENDIX remote SUTURE REPAIR OF ECTROPION Bilateral 11/09/2020 SUTURE REPAIR OF ECTROPION Bilateral 05/08/2023 Dr. Jung-Lateral tarsal strip OU Review of patient's allergies indicates: No Known Allergies Family History Problem Relation Age of Onset Heart failure Mother CHF, age 85 Colon cancer Father 58 Prostate cancer Brother Bone cancer Brother Social History Tobacco Use Smoking status: Former Types: Cigars Smokeless tobacco: Never Tobacco comments: one cigar a day Substance Use Topics Alcohol use: Yes Comment: rare Vaping/E-Cigarette Use Vaping/E-Cigarette Use Never User Vaping/E-Cigarette Substances Vaping/E-Cigarette Devices ROS: -Per HPI OBJECTIVE: BP 116/54 | Pulse 86 | Temp 35.6 C (96 F) | Wt 88.3 kg (194 lb 9.6 oz) | SpO2 87% | BMI 33.40 kg/m | BSA 2 m PHYSICAL EXAM: Lungs: decreased BS b/l R>L with diffuse wheezing and b/l crackles ASSESSMENT/PLAN: Due to hypoxia and bloody sputum sent the pt to the ER for stat imaging and likely IV abx - discussed going to the ER via ambulance but pt refused multiple times - also discussed the case with pt's daughter (Dr. Pinedo) - will inform ER Bloody sputum (Primary) Hypoxia I spent a total of 30-39 minutes (exact time 32 mins) on the date of service in preparation, delivery, and documentation of the care provided to Justin Pinedo excluding any time spent in the performance of separately billed services. Jody Arora MD [place] [id number] documented in this encounter Nursing Notes * Elisa Mcmahon CMA - 05/14/2023 10:44 AM EST He is here for cough and SOB. He has been sick since Saturday. documented in this encounter Plan of Treatment Upcoming Encounters Date Type Department Care Team (Late st Contact Info) Description 05/20/2023 12:20 PM EST Office Visit Ophthalmology, [facility] [address] [place] [address] Sergio Jung, [address] [place] [address] 07/15/2023 10:10 AM EDT Office Visit Ophthalmology, [facility] [address] [facility] [place] [address] Sergio Jung, [address] [facility] [place] [address] 12/04/2023 11:40 AM EDT Office Visit Nephrology, [facility] [address] [place] [address] Rosy Patel MD [address] [place] [address] 02/10/2024 1:00 PM EST Imaging Radiology [facility] 1st Floor, [place] [address] [facility] [place] [address] 02/25/2024 4:00 PM EST Office Visit Urology, [facility] [address] [facility] [place] [address] Cameron Romeo MD [address] [place] [address] [place] [address] Health Maintenance Due Date Last Done Comments Alpha-1 Antitrypsin 1958 *COPD SEVERITY VERIFIED BY PFT 07/16/2020 Depression Screening 02/28/2021 02/29/2020 Hepatitis B (3 of 3 - 19+ 3-dose series) 03/20/2023 01/23/2023, 01/08/2018 Albumin/Creatinine Ratio 08/09/2023 023, 12/07/2021, 08/10/2021, Additional history exists GFR 10/03/2023 04/04/2023, 010 04/2023, 03/04/2023, Additional history exists PTH 12/01/2023 [...] as of this encounter Visit Diagnoses Diagnosis Bloody sputum- Primary Hemoptysis, unspecified Hypoxia Hypoxemia documented in this encounter Care Teams Slot Machine Department Floorperson Relationship Specialty Start Date End Date Jody Arora MD [address] [place] [address] [place] [address] PCP - General Family Medicine 11/21/21 documented as of this encounter
[2023-05-15] MEDS: ACETAMINOPHEN 325 MG TAB PO PRN (13:26)
--- NOTE | 2023-05-15 16:25 | Ultrasound Report ---
BILATERAL LOWER EXTREMITY VENOUS DOPPLER HISTORY: Leg swelling. r/o DVT COMPARISON STUDY: None. FINDINGS: There is normal compressibility, flow, and augmentation within the bilateral lower extremit y deep venous systems. IMPRESSION: No DVT within the right or left lower extremity. ACT 112: Negative or not required by law. Electronically signed by: Joselo Garcia M.D. 05/15/2023 4:24 PM
[2023-05-15] MEDS: BUDESONIDE 0.5 MG/2 ML VIAL (PULMICORT) NEB SCH (19:43)
[2023-05-16] MEDS: hydrOXYzine HCl 25 MG TAB PO PRN (01:57)
[2023-05-16] MEDS: COUGH DROP (SUGAR FREE) LOZ 24 LOZ/1 BOX BUCCAL PRN (01:58)
[2023-05-16 07:17] LABS: Hematocrit (blood only) 26.4 % (42.0-52.0); Hemoglobin 8.4 g/dl (14.0-18.0); Mean Corpuscular Hemoglobin 25.8 pg (25.0-34.0); Mean Corpuscular Hgb Conc 31.8 g/dL (32.0-36.0); Mean Corpuscular Volume 81.2 fL (80.0-100.0); Mean Platelet Volume 10.6 fL (9.4-12.4); Platelet Count 155 K/uL (130-400); RDW Coefficient of Variation 15.3 % (11.5-14.5); RDW Standard Deviation 44.9 fL (36.4-46.3); Red Blood Count 3.25 M/uL (4.70-6.10); White Blood Count 10.95 K/ul (4.8-10.8)
[2023-05-16 07:50] LABS: BUN Creatinine Ratio 21.1 (10-20); Calcium 8.2 mg/dl (8.6-10.3); Creatinine Clr Calc Pharmacy 13.3 ml/min; Est GFR (Non-African American) 12.1 ml/min; Magnesium 2.2 mg/dl (1.7-2.4); Phosphorus 7.3 mg/dl (2.5-4.9); Potassium 4.8 mmol/L (3.5-5.1)
[2023-05-16] MEDS: FUROSEMIDE 40 MG TAB PO SCH (09:02)
[2023-05-16] MEDS: ALBUT/IPRATROP 3MG/0.5MG NEB 3 ML VIAL NEB PRN (11:31)
--- NOTE | 2023-05-16 12:53 | Nephrology Progress Note ---
Date of Service May 16, 2023 Assessment & Plan Admission and Anticipated Discharge Date Admission Date: May 14, 2023 Subjective Assessment & Plan (1) Acute kidney injury superimposed on CKD: current creatinine of 4.2 is better than yesterday. Still slightly higher than his most recent outpatient creatinine of 3.6 but he has readings of 4's multiple times in the last 1 year. he is already status post AV fistula in preparation for dialysis. at this time he does not appear to have any significant electrolyte issues or fluid overload. will continue Lasix 40 twice daily. continue sodium bicarb his phosphorus is high-- can be dealt with as outpatient. hemoglobin is lower than usual--- not unexpected as there will always be acute drop with pneumonia in a patient with pre-existing anemia of CKD. He was very anxious about knowing the kidney function and potential need of dialysis. based on the current electrolyte and fluid situation and current symptomatology and current renal function he does not need dialysis. however he is not completely out of danger of needing dialysis during this admission. his AV fistula seems ready and we will use that if needed. (2) Cough with hemoptysis: (3) PNA (pneumonia): reviewed pulmonary note in detail. Symptoms related with pneumonia and no major evidence of fluid overload S--no new issues. Overall better. renal labs better. Physical Exam Physical Exam: Constitutional: Patient is in some res distress. on 4 L nasal cannula Patient is well-developed. 95% O2 sats supple and no JVD. normal speech and able to give detailed account of his medical problems Respiratory: Diffuse rhonchi. No increased work of breathing. Occasional cough. Cardiovascular: Regular rate and rhythm. No murmurs. No edema. Gastrointestinal: Normal bowel sounds, soft, nontender and nondistended. No hepatosplenomegaly noted. Musculoskeletal: No cyanosis. Patient is able to move all extremities. Skin: No rashes, warm dry and intact. Neurologic: No obvious focal neurological deficits seen. Psychiatric: Alert and oriented x3 with a euthymic affect. Results & Data Vital Signs (Past 12 Hours) Vital Signs Temp Pulse Resp BP Pulse Ox O2 Del Method O2 Flow Rate 05/16/23 11:46 36.6 C 85 18 129/66 94 Nasal Cannula 3 05/16/23 11:31 90 20 93 Nasal Cannula 05/16/23 08:15 91 H 18 91 Nasal Cannula 4 05/16/23 07:56 36.7 C 92 H 20 173/69 H 91 Nasal Cannula 4
--- NOTE | 2023-05-16 13:04 | Pulmonology Progress Note ---
Date of Service May 16, 2023 Assessment & Plan (1) Cough with hemoptysis: (2) PNA (pneumonia): (3) Bronchospasm: Plan Continue with broad-spectrum antibiotics for bibasilar pneumonia. MRSA screen was negative. Hemoptysis appears to be somewhat improved today. Continue to optimize volume status. Will consider bronchoscopy if hemoptysis worsens. Sputum culture with light normal [facility]. Blood cultures pending. Continue IV methylprednisolone 40 mg twice daily, formoterol twice daily and budesonide twice daily for bronchospasm. Continue as needed albuterol nebs. Care coordinated with bedside nursing and RT. Thank you for the consult. Pulmonary will continue to follow. Admission and Anticipated Discharge Date Admission Date: May 14, 2023 Subjective Patient continues to have cough and shortness of breath. He endorses continued hemoptysis. Nursing denies any evidence of hemoptysis this morning. Nursing notes that he was able to get up out of bed and walk to his bathroom without any significant shortness of breath. Patient was also lethargic this morning and falls asleep easily. Review of Systems Review of Systems: All systems reviewed & are unremarkable except as noted in HPI & below Physical Exam Physical Exam: Constitutional: Patient appears to be of their stated age. Patient is in no apparent distress. Patient is well-developed. Eyes: Pupils are equal round and reactive to light. Conjunctivae are normal. Anicteric sclera. Ears nose, mouth and throat: Mallampati class 2. Normal posterior oropharynx. Uvula is midline. Neck: Trachea is midline. Visual inspection is normal. Respiratory: Diffuse rhonchi. No increased work of breathing. Occasional cough. Cardiovascular: Regular rate and rhythm. No murmurs. No edema. Gastrointestinal: Normal bowel sounds, soft, nontender and nondistended. No hepatosplenomegaly noted. Musculoskeletal: No cyanosis. Patient is able to move all extremities. Strength is 5 out of 5 in the upper and lower extremities. Skin: No rashes, warm dry and intact. Neurologic: No obvious focal neurological deficits seen. Psychiatric: Alert and oriented x3 with a euthymic affect. Results & Data Results & Data Vital Signs (Past 12 Hours) Vital Signs Temp Pulse Resp BP Pulse Ox O2 Del Method O2 Flow Rate 05/16/23 11:46 36.6 C 85 18 129/66 94 Nasal Cannula 3 05/16/23 11:31 90 20 93 Nasal Cannula 4 05/16/23 08:15 91 H 18 91 Nasal Cannula 4 05/16/23 07:56 36.7 C 92 H 20 173/69 H 91 Nasal Cannula 4 PG Care Time/CCT Total # of Minutes Spent Total Time Spent with Patient: Total time spent is greater than 50% in coordination of care (as documented) at patient's floor/unit and/or counseling patient: Coding Level of Care Code 13520 SUB INP/OBS CARE 2/35MIN Diagnoses Cough with hemoptysis R04.2 PNA (pneumonia) J18.9 Bronchospasm J98.01
--- NOTE | 2023-05-16 13:33 | Hospitalist Progress Note ---
Date of Service May 16, 2023 Assessment & Plan (1) Cough with hemoptysis: (2) Acute and chronic respiratory failure: (3) COPD (chronic obstructive pulmonary disease): (4) CKD (chronic kidney disease) stage 4, GFR 15-29 ml/min: Plan Mr. Pinedo is an 82 year old gentleman with history of CAD s/p stent,ESRD with AVF, COPD(wears nocturnal [id number]), MOLLY, HTN, carotid stenosis, HTN, DDD, anemia, anxiety, CVA with R sided weakness, COVID infection (02/2021), prediabet es, BPH, hx of RLE DVT and PE (was on coumadin)presented to [facility] due to 3 days of hemoptysis. Hemoptysis #Anemia of chronic disease, renal disease given history of malignancy, ERSD contributing to volume overload, infection, differential broad Cannot perform contrasted study 2/2 renal function/dysfunction s/p TXA neb sputum culture pending blood cultx pending Continue with IV unasyn Hgb stable, 8.7, trend Transfuse hgb < 7 Pulmonary medicine consulted - 82 yo M with a complex medical history presenting to the hospital with bibasilar pneumonia and hemoptysis. Please obtain MRSA screen. Agree with Unasyn for the time being. Obtain sputum and blood cultures. CT reviewed with bibasilar infiltrates. If hemoptysis continues and worsens, will proceed with bronchoscopy. May also consider the use of nebulized TXA. At this time, I think his hemoptysis is secondary to pneumonia. Would also recommend repeating echocardiogram to evaluate for RV dysfunction. Hemoptysis may also be due to to volume overload and elevated left ventricular end-diastolic pressure. I have added methylprednisone 40 mg twice daily to help with airway inflammation and nebulized budesonide and formoterol. We may also need to consider obtaining a CT chest with contrast to evaluate for pulmonary embolism. Patient does have a history of DVT in the past. Although at this time, history seems more consistent with pneumonia and possible aspiration component. Recommend speech therapy consult once stable. Doppler LE - negative for DVT Echo - EF 60 to 65%. There is moderate concentric LVH. Grade 1 diastolic dysfunction. RV is normal in size. RV systolic function is normal as assessed by TAPSE. Mild valvular aortic stenosis. Mild tricuspid regurg. Estimated systolic pulmonary pressure is 38 mmHg. 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, quit >[address] with bilateral reticular infiltrates, emphysematous changes -Continue Spiriva and Advair -Duonebs prn -Not on CPAP, continuous O2 4L with increased requirements Advair and Rescue Albuterol Pulmonary consulted, as above #HTN -Continue hydralazine 10mg BID -Continue nifedipine 60mg BID and coreg 3.125 BID #CKD #Left renal mass, RCC #Azotemia Matured AVF, plans for ICHD when necessary, not transplant candidate Seems mildly overloaded; denies decreasing UOP with lasix dosing of 40mg BID -Place thao cath -continue bicarb 650 BID -Nephrology consult for diuresis guidance , no need for dialysis at this time per nephrology -Daily weights #CAD s/p stent 1998 #Carotid stenosis, right #HLD Continue statin, coreg, bp control as above Hold asa #BPH continue tamsulosin #Mood d/o -continue venlafaxine, hydroxyzine Admission and Anticipated Discharge Date Admission Date: May 14, 2023 Subjective Pt seen in follow up of hemoptysis , resp. failure, (hx of CKD) Pulmonary medicine and nephrology consulted Pt currently on unasyn He is sitting up in bed in NAD. Says he continues to have a cough and hemoptysis. no chest pain. No abd. pain. Currently feeling fairly comfortable as long as he is resting. Family at the bedside and updated. Review of Systems Review of Systems: All systems reviewed & are unremarkable except as noted in Subjective Physical Exam Physical Exam: GENERAL: WD/WN M in NAD HEENT: NC, AT. MMM. bilateral ecchymosis around orbits with scleral injection s/p cataract surgery last week NECK: Supple HEART: Normal rate and regular rhythm, normal S1/S1, no m/r/g LUNGS: rhonchorous breath sounds, crackles ABDOMEN: Soft, nontender, nondistended with good bowel sounds heard. EXTREMITIES: moves extremities NEUROLOGICAL: Alert and oriented, speech fluent, no facial asymmetry, moving all 4 extremities Skin: Warm and dry Results & Data Results & Data Vital Signs (Past 12 Hours) Vital Signs Temp Pulse Resp BP Pulse Ox O2 Del Method O2 Flow Rate 05/16/23 11:46 36.6 C 85 18 129/66 94 Nasal Cannula 3 05/16/23 11:31 90 20 93 Nasal Cannula 4 05/16/23 08:15 91 H 18 91 Nasal Cannula 4 05/16/23 07:56 36.7 C 92 H 20 173/69 H 91 Nasal Cannula 4 Laboratory Results 05/16/23 Range/Units 06:53 WBC 10.95 H (4.8-10.8) K/ul RBC 3.25 L (4.70-6.10) M/uL Hgb 8.4 L (14.0-18.0) g/dl Hct 26.4 L (42.0-52.0) % MCV 81.2 (80.0-100.0) fL MCH 25.8 (25.0-34.0) pg MCHC 31.8 L (32.0-36.0) g/dL RDW Std Deviation 44.9 (36.4-46.3) fL RDW Coeff of John 15.3 H (11.5-14.5) % Plt Count 155 (130-400) K/uL MPV 10.6 (9.4-12.4) fL Sodium 140 (136-145) mmol/L Potassium 4.8 (3.5-5.1) mmol/L Chloride 103 (98-107) mmol/L Carbon Dioxide 25 (21-32) mmol/L Anion Gap 12 H (3-11) BUN 90 H (6-23) mg/dl Creatinine 4.26 H (0.6-1.4) mg/dl Est Cr Clr Drug Dosing 13.3 ml/min Est GFR ( Amer) 14.0 ml/min Est GFR (Non-Af Amer) 12.1 ml/min BUN/Creatinine Ratio 21.1 H (10-20) Glucose 187 H (70-99(Fasting)) mg/dl Calcium 8.2 L (8.6-10.3) mg/dl Phosphorus 7.3 H (2.5-4.9) mg/dl Magnesium 2.2 (1.7-2.4) mg/dl Medications Administered Current Inpatient Medications Acetaminophen (Acetaminophen 325 Mg Tab) 650 mg PO Q4H PRN PRN Reason: Pain or Fever Stop: 06/13/23 21:16 Last Admin: 05/15/23 20:17 Dose: 650 mg Albuterol (Albut/Ipratrop 3mg/0.5mg Neb 3 Ml Vial) 3 ml NEB QIDR PRN; Protocol PRN Reason: wheezing Stop: 06/13/23 21:16 Last Admin: 05/16/23 11:31 Dose: 3 ml Aspirin (Aspirin 81 Mg Ectab) 81 mg PO QAM M[facility]OS Stop: 06/14/23 08:59 Budesonide (Budesonide 0.5 Mg/2 Ml Vial (Pulmicort)) 0.5 mg NEB BIDR M[facility]OS Stop: 06/14/23 18:59 Last Admin: 05/16/23 08:14 Dose: 0.5 mg Carvedilol (Carvedilol 3.125 Mg Tab) 3.125 mg PO BID MARCOS Stop: 06/13/23 21:16 Last Admin: 05/16/23 09:03 Dose: 3.125 mg Formoterol Fumarate (Formoterol 20 Mcg/2 Ml Vial) 20 mcg NEB BIDR MARCOS Stop: 06/14/23 10:44 Last Admin: 05/16/23 08:14 Dose: 20 mcg Furosemide (Furosemide 40 Mg/4 Ml Vial) 40 mg IV BID MARCOS Stop: 06/13/23 20:59 Last Admin: 05/15/23 08:58 Dose: 40 mg Furosemide (Furosemide 40 Mg Tab) 40 mg PO BID17 M[facility]OS Stop: 06/15/23 08:59 Last Admin: 05/16/23 09:02 Dose: 40 mg Hydralazine HCl (Hydralazine 10 Mg Tab) 10 mg PO BID M[facility]OS Stop: 06/13/23 21:16 Last Admin: 05/16/23 09:03 Dose: 10 mg Hydroxyzine HCl (Hydroxyzine Hcl 25 Mg Tab) 50 mg PO HS PRN PRN Reason: Insomnia Stop: 06/13/23 21:16 Last Admin: 05/16/23 01:57 Dose: 50 mg Methylprednisolone 40 mg/ (Syringe) 0.64 mls @ 1.5 mls/min IV BID MARCOS Stop: 06/14/23 10:44 Last Admin: 05/16/23 09:02 Dose: 1.5 mls/min Ampicillin Sodium/Sulbactam Sodium 3,000 mg/ Sodium Chloride 100 mls @ 200 mls/hr IV Q24H M[facility]OS Stop: 05/23/23 17:59 Melatonin (Melatonin 3 Mg Tab) 9 mg PO HS MARCOS Stop: 06/13/23 21:16 Last Admin: 05/15/23 20:18 Dose: 9 mg Menthol (Cough Drop (Sugar Free) Miko 24 Miko/1 Box) 1 miko BUCCAL PRN PRN PRN Reason: Sore Throat Stop: 06/15/23 01:13 Last Admin: 05/16/23 01:58 Dose: 1 miko Miscellaneous (Erythromycin Oph Oint - Order Awaiting Action) 1 each N/A QS MARCOS Stop: 06/14/23 07:59 Last Admin: 05/16/23 00:30 Dose: Not Given Nifedipine (Nifedipine Extended Rel 30 Mg Tabcr) 60 mg PO DAILY MARCOS Stop: 06/14/23 08:59 Last Admin: 05/16/23 09:02 Dose: 60 mg Nitroglycerin (Nitroglycerin Sl 0.4 Mg/Tab Tab) 0.4 mg SL UD PRN PRN Reason: Chest Pain Stop: 06/13/23 21:16 Rosuvastatin Calcium (Rosuvastatin Calcium 10 Mg Tab) 10 mg PO QPM M[facility]OS Stop: 06/13/23 21:16 Last Admin: 05/15/23 20:18 Dose: 10 mg Sodium Bicarbonate (Sodium Bicarbonate 650 Mg Tab) 1,300 mg PO BID MARCOS Stop: 06/13/23 21:16 Last Admin: 05/16/23 09:02 Dose: 1,300 mg Tamsulosin HCl (Tamsulosin Hcl 0.4 Mg Cap) 0.4 mg PO QAM M[facility]OS Stop: 06/14/23 08:59 Last Admin: 05/16/23 09:01 Dose: 0.4 mg Venlafaxine HCl (Venlafaxine Hcl Xr 37.5 Mg Capxr) 37.5 mg PO DAILY MARCOS Stop: 06/14/23 08:59 Last Admin: 05/16/23 09:01 Dose: 37.5 mg (2) Acute and chronic respiratory failure Respiratory failure complication: hypoxia Qualified Code(s): J96.21 - Acute and chronic respiratory failure with hypoxia
[2023-05-16] MEDS ORDERED: CALCIUM CARBONATE 500 MG CHEWABLE TAB PO PRN (16:34)
[2023-05-16] MEDS: FAMOTIDINE 20MG IV PUSH 20 MG/5 ML SYR IV STA (17:48)
[2023-05-16] MEDS: SODIUM CHLORIDE IV SCH (17:49)
[2023-05-16] MEDS: SULBACTAM IV SCH (17:49)
[2023-05-16] MEDS: AMPICILLIN IV SCH (17:49)
[2023-05-16] MEDS: ERYTHROMYCIN OP OP SCH (21:09)
--- NOTE | 2023-05-17 08:38 | Hospitalist Progress Note ---
Date of Service May 17, 2023 Assessment & Plan (1) Cough with hemoptysis: (2) Acute and chronic respiratory failure: (3) COPD (chronic obstructive pulmonary disease): (4) CKD (chronic kidney disease) stage 4, GFR 15-29 ml/min: Plan Mr. Pinedo is an 82 year old gentleman with history of CAD s/p stent,ESRD with AVF, COPD(wears nocturnal [id number]), MOLLY, HTN, carotid stenosis, HTN, DDD, anemia, anxiety, CVA with R sided weakness, COVID infection (02/2021), prediabetes, BPH, hx of RLE DVT and PE (was on coumadin)presented to [facility] due to 3 days of hemoptysis. Hemoptysis #Anemia of chronic disease, renal disease given history of malignancy, ERSD contributing to volume overload, infection, differential broad Cannot perform contrasted study 2/2 renal function/dysfunction s/p TXA neb sputum culture pending blood cultx pending Continue with IV unasyn Hgb stable, 8.7, trend Transfuse hgb < 7 Pulmonary medicine consulted - 82 yo M with a complex medical history presenting to the hospital with bibasilar pneumonia and hemoptysis. Please obtain MRSA screen. Agree with Unasyn for the time being. Obtain sputum and blood cultures. CT reviewed with bibasilar infiltrates. If hemoptysis continues and worsens, will proceed with bronchoscopy. May also consider the use of nebulized TXA. At this time, I think his hemoptysis is secondary to pneumonia. Would also recommend repeating echocardiogram to evaluate for RV dysfunction. Hemoptysis may also be due to to volume overload and elevated left ventricular end-diastolic pressure. I have added methylprednisone 40 mg twice daily to help with airway inflammation and nebulized budesonide and formoterol. We may also need to consider obtaining a CT chest with contrast to evaluate for pulmonary embolism. Patient does have a history of DVT in the past. Although at this time, history seems more consistent with pneumonia and possible aspiration component. Recommend speech therapy consult once stable. Doppler LE - negative for DVT Echo - EF 60 to 65%. There is moderate concentric LVH. Grade 1 diastolic dysfunction. RV is normal in size. RV systolic function is normal as assessed by TAPSE. Mild valvular aortic stenosis. Mild tricuspid regurg. Estimated systolic pulmonary pressure is 38 mmHg. 05/16 - Discussed w/ pulmonary - ok to DC home on PO Augmentin (to finish 10 day abx course) and 5 days of PO prednisone. 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 >[address] with bilateral reticular infiltrates, emphysematous changes -Continue Spiriva and Advair -Duonebs prn -Not on CPAP, continuous O2 4L with increased requirements Advair and Rescue Albuterol Pulmonary consulted, as above #HTN -Continue hydralazine 10mg BID -Continue nifedipine 60mg BID and coreg 3.125 BID #CKD #Left renal mass, RCC #Azotemia Matured AVF, plans for ICHD when necessary, not transplant candidate Seems mildly overloaded; denies decreasing UOP with lasix dosing of 40mg BID -Placed thao cath - will remove prior to DC -continue bicarb 650 BID -Nephrology consult for diuresis guidance , no need for dialysis at this time per nephrology -Daily weights #CAD s/p stent 1998 #Carotid stenosis, right #HLD Continue statin, coreg, bp control as above Hold asa #BPH continue tamsulosin #Mood d/o -continue venlafaxine, hydroxyzine Admission and Anticipated Discharge Date Admission Date: May 14, 2023 Subjective Pt seen in follow up of hemoptysis , resp. failure, (hx of CKD) Pulmonary medicine and nephrology consulted Pt currently on unasyn He is sitting up in bed in NAD. Says he feels much improved, breathing much improved. Discussed w/ pulm. medicine - ok to discharge on PO abx and prednisone. Hemoptysis has resolved. Review of Systems Review of Systems: All systems reviewed & are unremarkable except as noted in Subjective Physical Exam Physical Exam: GENERAL: WD/WN M in NAD HEENT: NC, AT. MMM. bilateral ecchymosis around orbits with scleral injection s/p cataract surgery last week NECK: Supple HEART: Normal rate and regular rhythm, normal S1/S1, no m/r/g LUNGS: CTAB, no wheezing, no rhonchi (resolved) ABDOMEN: Soft, nontender, nondistended with good bowel sounds heard. EXTREMITIES: moves extremities NEUROLOGICAL: Alert and oriented, speech fluent, no facial asymmetry, moving all 4 extremities Skin: Warm and dry Results & Data Results & Data Vital Signs (Past 12 Hours) Vital Signs Temp Pulse Pulse Resp BP Pulse Ox O2 Del Method 05/17/23 08:26 Nasal Cannula 05/17/23 07:29 36.3 C L 79 17 157/62 H 93 Nasal Cannula 05/17/23 03:24 36.8 C 86 16 160/72 H 92 Nasal Cannula 05/16/23 23:36 91 H 05/16/23 22:38 36.6 C 90 16 152/66 H 92 Nasal Cannula 05/16/23 22:15 Nasal Cannula O2 Flow Rate 05/17/23 08:26 4 05/17/23 07:29 4 05/17/23 03:24 4 05/16/23 23:36 05/16/23 22:38 4 05/16/23 22:15 4 Laboratory Results 05/17/23 Range/Units 09:03 WBC 14.96 H (4.8-10.8) K/ul RBC 3.44 L (4.70-6.10) M/uL Hgb 8.7 L (14.0-18.0) g/dl Hct 28.7 L (42.0-52.0) % MCV 83.4 (80.0-100.0) fL MCH 25.3 (25.0-34.0) pg MCHC 30.3 L (32.0-36.0) g/dL RDW Std Deviation 46.8 H (36.4-46.3) fL RDW Coeff of John 15.5 H (11.5-14.5) % Plt Count 201 (130-400) K/uL MPV 10.5 (9.4-12.4) fL Sodium 139 (136-145) mmol/L Potassium 5.1 (3.5-5.1) mmol/L Chloride 103 (98-107) mmol/L Carbon Dioxide 24 (21-32) mmol/L Anion Gap 12 H (3-11) BUN 97 H (6-23) mg/dl Creatinine 4.34 H (0.6-1.4) mg/dl Est Cr Clr Drug Dosing 13.1 ml/min Est GFR ( Amer) 13.7 ml/min Est GFR (Non-Af Amer) 11.8 ml/min BUN/Creatinine Ratio 22.4 H (10-20) Glucose 239 H (70-99(Fasting)) mg/dl Calcium 8.1 L (8.6-10.3) mg/dl Phosphorus 6.9 H (2.5-4.9) mg/dl Magnesium 2.4 (1.7-2.4) mg/dl Medications Administered Current Inpatient Medications Acetaminophen (Acetaminophen 325 Mg Tab) 650 mg PO Q4H PRN PRN Reason: Pain or Fever Stop: 06/13/23 21:16 Last Admin: 05/16/23 23:13 Dose: 650 mg Albuterol (Albut/Ipratrop 3mg/0.5mg Neb 3 Ml Vial) 3 ml NEB QIDR PRN; Protocol PRN Reason: wheezing Stop: 06/13/23 21:16 Last Admin: 05/16/23 15:48 Dose: 3 ml Aspirin (Aspirin 81 Mg Ectab) 81 mg PO QAM [facility] Stop: 06/14/23 08:59 Budesonide (Budesonide 0.5 Mg/2 Ml Vial (Pulmicort)) 0.5 mg NEB BIDR [facility] Stop: 06/14/23 18:59 Last Admin: 05/17/23 07:21 Dose: Not Given Calcium Carbonate (Calcium Carbonate 500 Mg Chewable Tab) 500 mg PO Q4H PRN PRN Reason: Indigestion Stop: 06/15/23 16:33 Carvedilol (Carvedilol 3.125 Mg Tab) 3.125 mg PO BID [facility] Stop: 06/13/23 21:16 Last Admin: 05/16/23 21:13 Dose: 3.125 mg Erythromycin (Patient's Own- Erythromycin Op Oint 5 Mg/Gm 3.5 Gm Tube) 1 appln OP QID [facility] Stop: 05/26/23 20:59 Last Admin: 05/16/23 21:09 Dose: 1 appln Formoterol Fumarate (Formoterol 20 Mcg/2 Ml Vial) 20 mcg NEB BIDR [facility] Stop: 06/14/23 10:44 Last Admin: 05/17/23 07:21 Dose: Not Given Furosemide (Furosemide 40 Mg/4 Ml Vial) 40 mg IV BID [facility] Stop: 06/13/23 20:59 Last Admin: 05/15/23 08:58 Dose: 40 mg Furosemide (Furosemide 40 Mg Tab) 40 mg PO BID17 [facility] Stop: 06/15/23 08:59 Last Admin: 05/16/23 17:49 Dose: 40 mg Hydralazine HCl (Hydralazine 10 Mg Tab) 10 mg PO BID MARCOS Stop: 06/13/23 21:16 Last Admin: 05/16/23 21:14 Dose: 10 mg Hydroxyzine HCl (Hydroxyzine Hcl 25 Mg Tab) 50 mg PO HS PRN PRN Reason: Insomnia Stop: 06/13/23 21:16 Last Admin: 05/16/23 01:57 Dose: 50 mg Methylprednisolone 40 mg/ (Syringe) 0.64 mls @ 1.5 mls/min IV BID MARCOS Stop: 06/14/23 10:44 Last Admin: 05/16/23 21:09 Dose: 1.5 mls/min Ampicillin Sodium/Sulbactam Sodium 3,000 mg/ Sodium Chloride 100 mls @ 200 mls/hr IV Q24H MARCOS Stop: 05/23/23 17:59 Last Infusion: 05/16/23 18:38 Dose: Infused Melatonin (Melatonin 3 Mg Tab) 9 mg PO HS MARCOS Stop: 06/13/23 21:16 Last Admin: 05/16/23 21:17 Dose: 9 mg Menthol (Cough Drop (Sugar Free) Miko 24 Miko/1 Box) 1 miko BUCCAL PRN PRN PRN Reason: Sore Throat Stop: 06/15/23 01:13 Last Admin: 05/16/23 01:58 Dose: 1 miko Nifedipine (Nifedipine Extended Rel 30 Mg Tabcr) 60 mg PO DAILY [facility] Stop: 06/14/23 08:59 Last Admin: 05/16/23 09:02 Dose: 60 mg Nitroglycerin (Nitroglycerin Sl 0.4 Mg/Tab Tab) 0.4 mg SL UD PRN PRN Reason: Chest Pain Stop: 06/13/23 21:16 Rosuvastatin Calcium (Rosuvastatin Calcium 10 Mg Tab) 10 mg PO QPM MARCOS Stop: 06/13/23 21:16 Last Admin: 05/16/23 21:11 Dose: 10 mg Sodium Bicarbonate (Sodium Bicarbonate 650 Mg Tab) 1,300 mg PO BID MARCOS Stop: 06/13/23 21:16 Last Admin: 05/16/23 21:12 Dose: 1,300 mg Tamsulosin HCl (Tamsulosin Hcl 0.4 Mg Cap) 0.4 mg PO QAM [facility] Stop: 06/14/23 08:59 Last Admin: 05/16/23 09:01 Dose: 0.4 mg Venlafaxine HCl (Venlafaxine Hcl Xr 37.5 Mg Capxr) 37.5 mg PO DAILY [facility] Stop: 06/14/23 08:59 Last Admin: 05/16/23 09:01 Dose: 37.5 mg (2) Acute and chronic respiratory failure Respiratory failure complication: hypoxia Qualified Code(s): J96.21 - Acute and chronic respiratory failure with hypoxia
[2023-05-17 09:40] LABS: Hematocrit (blood only) 28.7 % (42.0-52.0); Hemoglobin 8.7 g/dl (14.0-18.0); Mean Corpuscular Hemoglobin 25.3 pg (25.0-34.0); Mean Corpuscular Hgb Conc 30.3 g/dL (32.0-36.0); Mean Corpuscular Volume 83.4 fL (80.0-100.0); Mean Platelet Volume 10.5 fL (9.4-12.4); Platelet Count 201 K/uL (130-400); RDW Coefficient of Variation 15.5 % (11.5-14.5); RDW Standard Deviation 46.8 fL (36.4-46.3); Red Blood Count 3.44 M/uL (4.70-6.10); White Blood Count 14.96 K/ul (4.8-10.8)
[2023-05-17 10:00] LABS: BUN Creatinine Ratio 22.4 (10-20); Calcium 8.1 mg/dl (8.6-10.3); Creatinine Clr Calc Pharmacy 13.1 ml/min; Est GFR (African American) 13.7 ml/min; Est GFR (Non-African American) 11.8 ml/min; Magnesium 2.4 mg/dl (1.7-2.4); Phosphorus 6.9 mg/dl (2.5-4.9); Potassium 5.1 mmol/L (3.5-5.1)
--- NOTE | 2023-05-17 10:12 | Nephrology Progress Note ---
Date of Service May 17, 2023 Assessment & Plan Admission and Anticipated Discharge Date Admission Date: May 14, 2023 Subjective Assessment & Plan (1) Acute kidney injury superimposed on CKD: current creatinine of 4.2 is better than yesterday. Still slightly higher than his most recent outpatient creatinine of 3.6 but he has readings of 4's multiple times in the last 1 year. he is already status post AV fistula in preparation for dialysis. at this time he does not appear to have any significant electrolyte issues or fluid overload. will continue Lasix 40 twice daily. continue sodium bicarb his phosphorus is high-- can be dealt with as outpatient. hemoglobin is lower than usual--- not unexpected as there will always be acute drop with pneumonia in a patient with pre-existing anemia of CKD. He was very anxious about knowing the kidney function and potential need of dialysis. based on the current electrolyte and fluid situation and current symptomatology and current renal function he does not need dialysis. However he is not completely out of danger of needing dialysis during this admission. So far renal function abnormal but holding steady. his AV fistula seems ready and we will use that if needed. (2) Cough with hemoptysis: (3) PNA (pneumonia): reviewed pulmonary note in detail. Symptoms related with pneumonia and no major evidence of fluid overload S--no new issues. Overall better. renal labs Stable. Physical Exam Physical Exam: Constitutional: Patient is in some res distress. on 4 L nasal cannula Patient is well-developed. 95% O2 sats supple and no JVD. normal speech and able to give detailed account of his medical problems Respiratory: Diffuse rhonchi. No increased work of breathing. Occasional cough. Cardiovascular: Regular rate and rhythm. No murmurs. No edema. Gastrointestinal: Normal bowel sounds, soft, nontender and nondistended. No hepatosplenomegaly noted. Musculoskeletal: No cyanosis. Patient is able to move all extremities. Skin: No rashes, warm dry and intact. Neurologic: No obvious focal neurological deficits seen. Psychiatric: Alert and oriented x3 with a euthymic affect. Results & Data Vital Signs (Past 12 Hours) Vital Signs Temp Pulse Pulse Resp BP Pulse Ox O2 Del Method 05/17/23 08:26 Nasal Cannula 05/17/23 07:29 36.3 C L 79 17 157/62 H 93 Nasal Cannula 05/17/23 03:24 36.8 C 86 16 160/72 H 92 Nasal Cannula 05/16/23 23:36 91 H 05/16/23 22:38 36.6 C 90 16 152/66 H 92 Nasal Cannula 05/16/23 22:15 Nasal Cannula O2 Flow Rate 05/17/23 08:26 4 05/17/23 07:29 4 05/17/23 03:24 4 05/16/23 23:36 05/16/23 22:38 4 05/16/23 22:15 4
--- NOTE | 2023-05-17 10:15 | Pulmonology Progress Note ---
Date of Service May 17, 2023 Assessment & Plan (1) Cough with hemoptysis: (2) PNA (pneumonia): (3) Bronchospasm: Plan His cough and wheezing is improved significantly. His hemoptysis is also improved. Will de-escalate from Unasyn to Augmentin. Would recommend a total course of 10 days of antibiotics. Will transition from IV methylprednisone to prednisone. Would recommend an additional 5-day course of prednisone at a dose of 40 mg daily. Continue with nebulized budesonide and formoterol while inpatient. Can be transition to his outpatient Advair and Spiriva on discharge. Sputum cultures growing normal [facility]. Blood culture negative to date. I think he is stable for discharge home at this time. No further pulmonary recommendations. Please call with questions. Pulmonary to sign off. D/W bedside nursing and hospitalist. Admission and Anticipated Discharge Date Admission Date: May 14, 2023 Subjective Patient feels that his shortness of breath and wheezing have improved significantly since his day of admission. He is back to his baseline oxygen needs of 4 L/min via nasal cannula. He notes he had a very small amount of hemoptysis this morning which is much less than the last couple days. Nursing does not note any significant hemoptysis on their evaluations. Nursing denies that the patient has had any significant cough when visiting with the patient. Patient however is adamant that he had some bouts of cough this morning. Regardless he feels better. He denies any chest pain, fevers, nausea or night sweats. Review of Systems Review of Systems: All systems reviewed & are unremarkable except as noted in HPI & below Physical Exam Physical Exam: Constitutional: Patient appears to be of their stated age. Patient is in no apparent distress. Patient is well-developed. Eyes: Pupils are equal round and reactive to light. Conjunctivae are normal. Anicteric sclera. Ears nose, mouth and throat: Mallampati class 2. Normal posterior oropharynx. Uvula is midline. Neck: Trachea is midline. Visual inspection is normal. Respiratory: Clear to auscultation bilaterally. No wheezing. Cardiovascular: Regular rate and rhythm. No murmurs. No edema. Gastrointestinal: Normal bowel sounds, soft, nontender and nondistended. No hepatosplenomegaly noted. Musculoskeletal: No cyanosis. Patient is able to move all extremities. Strength is 5 out of 5 in the upper and lower extremities. Skin: No rashes, warm dry and intact. Neurologic: No obvious focal neurological deficits seen. Psychiatric: Alert and oriented x3 with a euthymic affect. Results & Data Results & Data Vital Signs (Past 12 Hours) Vital Signs Temp Pulse Pulse Resp BP Pulse Ox O2 Del Method 05/17/23 08:26 Nasal Cannula 05/17/23 07:29 36.3 C L 79 17 157/62 H 93 Nasal Cannula 05/17/23 03:24 36.8 C 86 16 160/72 H 92 Nasal Cannula 05/16/23 23:36 91 H 05/16/23 22:38 36.6 C 90 16 152/66 H 92 Nasal Cannula 05/16/23 22:15 Nasal Cannula O2 Flow Rate 05/17/23 08:26 4 05/17/23 07:29 4 05/17/23 03:24 4 05/16/23 23:36 05/16/23 22:38 4 05/16/23 22:15 4 PG Care Time/CCT Total # of Minutes Spent Total Time Spent with Patient: Total time spent is greater than 50% in coordination of care (as documented) at patient's floor/unit and/or counseling patient: Coding Level of Care Code 40288 SUB INP/OBS CARE 2/35MIN Diagnoses Cough with hemoptysis R04.2 PNA (pneumonia) J18.9 Bronchospasm J98.01
--- NOTE | 2023-05-17 12:50 | Discharge Summary ---
Date of Service May 17, 2023 Admission HPI Per Admitting Provider Mr. Pinedo is an 82 year old gentleman with history of CAD s/p stent,ESRD with AVF, COPD(wears nocturnal [id number]), MOLLY, HTN, carotid stenosis, HTN, DDD, anemia, anxiety, CVA with R sided weakness, COVID infection (02/2021), prediabetes, BPH, hx of RLE DVT and PE (was on coumadin)presented to [facility] ED due to 3 days of hemoptysis. Patient states that for last 2 weeks he has experienced upper respiratory infection--with increased cough and sputum production; however, on Saturday his sputum was noted to have salvador blood and able to be quantified in teaspoons her patient report. Patient denies fevers or chills. Patient reports history of fungal pneumonia, which he was notably "more sick" and without hemoptysis Patient notes history of RCC, for which he has not undergone treatment. Patient states that his oxygen requirements have been increasing for last year he feels. Labs with leukocytosis to 11.79, stable anemia of 8.7, elevated BUN 80, Cr 4.54, BNP 123 In the ED, vitals were notable for BP of 110-130s, HR of 80s, and O2 sat of mid 90s 4 L NC Imaging revealed Airspace opacities are seen in the right greater than left lower lobes with some solid nodular appearing densities EKG with bifascicular block, PACs ED interventions: Carmen, crisa aleyda Consultants: Nephrology, Pulm Patient to be admitted to PCU tele for further evaluation and management of acute on chronic hypoxic resp failure and hemoptysis Admission Exam Per Admitting Provider GENERAL APPEARANCE: AxOx4, generally well-appearing male, no acute distress. HEENT: NC, AT. MMM. bilateral ecchymosis around orbits with scleral injection s/p cataract surgery last week NECK: Supple without lymphadenopathy. No stiffness or restricted ROM. HEART: Normal rate and regular rhythm, normal S1/S1, no m/r/g LUNGS: rhonchorous breath sounds, crackles ABDOMEN: Soft, nontender, nondistended with good bowel sounds heard. BACK: No CVAT, no obvious deformity. EXTREMITIES: Without cyanosis, clubbing or edema. NEUROLOGICAL: Grossly nonfocal. Alert and oriented, moving all 4 extremities. CN not formally tested but appear grossly intact. Skin: Warm and dry without any rash. Principal Diagnosis Pneumonia, cough with hemoptysis Discharge Exam GENERAL: WD/WN M in NAD HEENT: NC, AT. MMM. bilateral ecchymosis around orbits with scleral injection s/p cataract surgery last week NECK: Supple HEART: Normal rate and regular rhythm, normal S1/S1, no m/r/g LUNGS: CTAB, no wheezing, no rhonchi (resolved) ABDOMEN: Soft, nontender, nondistended with good bowel sounds heard. EXTREMITIES: moves extremities NEUROLOGICAL: Alert and oriented, speech fluent, no facial asymmetry, moving all 4 extremities Skin: Warm and dry Discharge Data Allergies Allergy/AdvReac Type Severity Reaction Status Date / Time No Known Allergies Allergy Verified 06/26/22 11:36 Consultations 05/14/23 16:03 ED Decision to Admit Stat 05/14/23 21:17 Consult Nephrology Routine Consult Pulmonology Routine Ordered Studies 05/14/23 13:47 CT chest diagnostic wo con Stat FINDINGS: Lungs and pleura: Airspace opacities are seen in the right greater than left lower lobes with some solid nodular appearing densities. No suspicious pulmonary nodules. Heart and pericardium: Cardiomegaly is seen with biatrial enlargement. Vessels: Severe atherosclerotic changes in the aorta and coronary arteries. Pulmonary trunk measures 40 mm. Mediastinum and apolonia: Subcentimeter lymph nodes are seen. Chest wall and lower neck: Unremarkable. Abdomen: Patient is status post cholecystectomy. Bones: Degenerative changes in the thoracic spine. IMPRESSION: Airspace opacity is seen in the bilateral lower lobes. Findings may represent infectious/inflammatory process, however follow-up to resolution is recommended to exclude underlying masses. 05/15/23 14:05 US venous doppler LE BI Routine FINDINGS: There is normal compressibility, flow, and augmentation within the bilateral lower extremity deep venous systems. IMPRESSION: No DVT within the right or left lower extremity. Hospital Course (1) Cough with hemoptysis: (2) Acute and chronic respiratory failure: (3) COPD (chronic obstructive pulmonary disease): (4) CKD (chronic kidney disease) stage 4, GFR 15-29 ml/min: Plan Mr. Pinedo is an 82 year old gentleman with history of CAD s/p stent,ESRD with AVF, COPD(wears nocturnal [id number]), MOLLY, HTN, carotid stenosis, HTN, DDD, anemia, anxiety, CVA with R sided weakness, COVID infection (02/2021), prediabetes, BPH, hx of RLE DVT and PE (was on coumadin)presented to [facility] ED due to 3 days of hemoptysis. Hemoptysis #Anemia of chronic disease, renal disease given history of malignancy, ERSD contributing to volume overload, infection, differential broad Cannot perform contrasted study 2/2 renal function/dysfunction s/p TXA neb sputum culture pending blood cultx pending Continue with IV unasyn Hgb stable, 8.7, trend Transfuse hgb < 7 Pulmonary medicine consulted - 82 yo M with a complex medical history presenting to the hospital with bibasilar pneumonia and hemoptysis. Please obtain MRSA screen. Agree with Unasyn for the time being. Obtain sputum and blood cultures. CT reviewed with bibasilar infiltrates. If hemoptysis continues and worsens, will proceed with bronchoscopy. May also consider the use of nebulized TXA. At this time, I think his hemoptysis is secondary to pneumonia. Would also recommend repeating echocardiogram to evaluate for RV dysfunction. Hemoptysis may also be due to to volume overload and elevated left ventricular end-diastolic pressure. I have added methylprednisone 40 mg twice daily to help with airway inflammation and nebulized budesonide and formoterol. We may also need to consider obtaining a CT chest with contrast to evaluate for pulmonary embolism. Patient does have a history of DVT in the past. Although at this time, history seems more consistent with pneumonia and possible aspiration component. Recommend speech therapy consult once stable. Doppler LE - negative for DVT Echo - EF 60 to 65%. There is moderate concentric LVH. Grade 1 diastolic dysfunction. RV is normal in size. RV systolic function is normal as assessed by TAPSE. Mild valvular aortic stenosis. Mild tricuspid regurg. Estimated s ystolic pulmonary pressure is 38 mmHg. 05/16 - Discussed w/ pulmonary - ok to DC home on PO Augmentin (to finish 10 day abx course) and 5 days of PO prednisone. 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, quit >[address] with bilateral reticular infiltrates, emphysematous changes -Continue Spiriva and Advair -Duonebs prn -Not on CPAP, continuous O2 4L with increased requirements Advair and Rescue Albuterol Pulmonary consulted, as above #HTN -Continue hydralazine 10mg BID -Continue nifedipine 60mg BID and coreg 3.125 BID #CKD #Left renal mass, RCC #Azotemia Matured AVF, plans for ICHD when necessary, not transplant candidate Seems mildly overloaded; denies decreasing UOP with lasix dosing of 40mg BID -continue bicarb 650 BID -Nephrology consult for diuresis guidance , no need for dialysis at this time per nephrology -Daily weights #CAD s/p stent 1998 #Carotid stenosis, right #HLD Continue statin, coreg, bp control as above Hold asa #BPH continue tamsulosin #Mood d/o -continue venlafaxine, hydroxyzine Total Time Total Time Spent Total Time Spent (In Minutes): 40 Discharge Plan Discharge Items Patient Disposition: Home - Self-Care Reason For Visit: HEMOPTYSIS Discharge Diagnosis: Pneumonia, cough with hemoptysis Activity: Per Instructions section Non-emergency contact: Primary Care Provider Call non-emergency contact if: you have any medication questions and your symptoms worsen Follow-up/Referrals: Jody Arora MD [Primary Care Provider] - (Date & Time 05/21/2023 1:00 PM Provider Jayleen Hua PA-C Department Family Medicine [facility] ) Diet: Heart Healthy Addtl Attending Provider Instructions: Follow up with your primary care physician, the appointment was scheduled for you for May 21, 2023. Finish antibiotic treatment with Augmentin as prescribed. Take prednisone 40 mg for next 5 days. Pending Studies at Discharge: Yes Studies:: final blood cultx results Stand-Alone Forms: My [facility] Q-Bot, Smoking Cessation Medications and DC Order Prescriptions: New amoxicillin-pot clavulanate 500-125 mg Tablet 1 tab PO BIDM 8 Days Qty: 16 0RF prednisone 20 mg Tablet 40 mg PO DAILY 5 Days Qty: 10 0RF Continued venlafaxine [Effexor XR] 37.5 mg Capsule,Extended Release 24hr 37.5 mg PO DAILY carvedilol [Coreg] 3.125 mg Tablet 3.125 mg PO BID Rx Instructions: must administer with a meal/food nifedipine [Procardia XL] 60 mg Tablet Extended Release 24hr 60 mg PO BID furosemide [Lasix] 40 mg Tablet 40 mg PO QAM Rx Instructions: take along with 20 mg for a total dose of 60 mg tamsulosin [Flomax] 0.4 mg Capsule 0.4 mg PO QAM sodium bicarbonate 650 mg Tablet 1,300 mg PO [facility] melatonin 10 mg Capsule 10 mg PO HS furosemide 20 mg Tablet 20 mg PO QAM Rx Instructions: take along with 40 mg = 60 mg total dose rosuvastatin 10 mg Tablet 10 mg PO QAM hydralazine 10 mg Tablet 10 mg PO [facility] hydroxyzine HCl 50 mg Tablet 50 mg PO HS PRN (Reason: Insomnia) fluticasone propion-salmeterol [Advair Diskus] 250-50 mcg/dose Blister With Device 1 inh INHALATION [facility] Spiriva Respimat 2.5 mcg/actuation Mist 2 inh INHALATION QAM erythromycin 5 mg/gram (0.5 %) Ointment 0.25 inch OPHTHALMIC (EYE) QID Rx Instructions: ordered 05/08/23 intill 0.25 into eye MORNING,NOON,EVENING,BEDTIME for 14 days then daily at bedtime nitroglycerin [Nitrostat] 0.4 mg Tablet, Sublingual 0.4 mg sublingual UD PRN (Reason: Chest Pain) menthol-zinc oxide [Calmoseptine] 0.44-20.6 % Ointment 1 applic TOPICAL BID albuterol sulfate 2.5 mg /3 mL (0.083 %) Solution For Nebulization 2.5 mg INHALATION UD albuterol sulfate 5 mg/mL Solution For Nebulization 2.5 mg INHALATION UD Discharge Orders: Discharge Order (Routine); Ordered 05/17/23 Ordered By: Gilmar Henderson Admission Data Admit Date/Time: 05/14/23 17:57 Attending Provider: Gilmar Henderson Admit Provider: Fabiana Matthew Primary Care Provider: Jody Arora Other Providers: Fabiana Matthew; Rosy Patel; Rogelio Villavicencio
[2023-05-17] MEDS ORDERED: AMOXICILLIN/CLAVULANATE 500 MG TAB PO SCH (17:00)
[2023-05-18] MEDS ORDERED: predniSONE 20 MG TAB PO SCH (09:00)
== END 2023-05-17 18:12 | disposition home or self-care (01) | DRG 193 ==
LOC: ED 13:08 → SUATTDRO 17:57 → EDINP 17:57 → 2S 21:17

== ENCOUNTER 2023-08-26 14:10 | Inpatient (IN) ==
[2023-08-26 14:49] LABS: Base Excess VBG 3.8 mEq/L; HCO3 VBG 31 mmol/L; Oxygen Saturation VBG < 60.0 %; PCO2 VBG 60 mmHg (38-50); PO2 VBG 38 mmHg; pH VBG 7.32 (7.36-7.41)
[2023-08-26 15:01] LABS: Basophils # (auto) 0.02 K/uL (0.00-0.20); Basophils % (auto) 0.3 %; Eosinophils # (auto) 0.08 K/uL (0.00-0.50); Hematocrit (blood only) 30.6 % (42.0-52.0); Hemoglobin 9.2 g/dl (14.0-18.0); Immature Granulocytes # (auto) 0.02 K/uL (0.01-0.20); Immature Granulocytes % (auto) 0.3 %; Lymphocytes # (auto) 0.25 K/uL (1.20-3.40); Lymphocytes % (auto) 3.1 %; Mean Corpuscular Hemoglobin 25.9 pg (25.0-34.0); Mean Corpuscular Hgb Conc 30.1 g/dL (32.0-36.0); Mean Corpuscular Volume 86.2 fL (80.0-100.0); Mean Platelet Volume 10.4 fL (9.4-12.4); Monocytes # (auto) 0.81 K/uL (0.11-0.59); Monocytes % (auto) 10.2 %; Neutrophils # (auto) 6.76 K/uL (1.40-6.50); Neutrophils % (auto) 85.1 %; Platelet Count 109 K/uL (130-400); RDW Standard Deviation 50.2 fL (36.4-46.3); Red Blood Count 3.55 M/uL (4.70-6.10); White Blood Count 7.94 K/ul (4.8-10.8)
--- NOTE | 2023-08-26 15:07 | XRay Report ---
XR chest 1V portable CLINICAL HISTORY: sob TECHNIQUE: Single frontal radiograph of the chest was obtained. Comparison: Comparison is made to chest radiograph 05/25/2023 FINDINGS: No lines and tubes are seen. Calcified aortic knob is seen. Prominence and cephalization of the vascu lature is seen. No evidence of pleural effusion or pneumothorax. IMPRESSION: Cardiomegaly and mild pulmonary edema. ACT 112: Negative or not required by law. Electronically signed by: Elio Pacheco M.D. 08/26/2023 3:06 PM
[2023-08-26 15:17] LABS: Albumin Level 3.7 gm/dl (3.4-5.0); Bilirubin Direct 0.1 mg/dl (0-0.2); Bilirubin,Total 0.6 mg/dl (0.2-1.0); Calcium 8.5 mg/dl (8.6-10.3); Est GFR (African American) 16.2 ml/min; Potassium 4.1 mmol/L (3.5-5.1); Total Protein 6.8 gm/dl (6.0-8.3)
[2023-08-26] MEDS: predniSONE 50 MG TAB PO STA (15:18)
[2023-08-26] MEDS: ALBUT/IPRATROP 3MG/0.5MG NEB 3 ML VIAL NEB STA (15:19)
[2023-08-26 15:23] LABS: Troponin I High Sensitivity 36.1 pg/ml (0-20)
[2023-08-26 15:55] LABS: Adenovirus PCR Not Detected (NotDetected); Bordetella parapertussis PCR Not Detected (NotDetected); Bordetella pertussis PCR Not Detected (NotDetected); Chlamydia pneumoniae PCR Not Detected (NotDetected); Coronavirus 229E PCR Not Detected (NotDetected); Coronavirus CoV-2 (COVID19)PCR Not Detected (NotDetected); Coronavirus HKU1 PCR Not Detected (NotDetected); Coronavirus NL63 PCR Not Detected (NotDetected); Coronavirus OC43PCR Not Detected (NotDetected); Human Metapneumovirus PCR Not Detected (NotDetected); Influenza A PCR Not Detected (NotDetected); Influenza B PCR Not Detected (NotDetected); Mycoplasma pneumoniae PCR Not Detected (NotDetected); Parainfluenza Virus 1 PCR Not Detected (NotDetected); Parainfluenza Virus 2 PCR Not Detected (NotDetected); Parainfluenza Virus 3 PCR Not Detected (NotDetected); Parainfluenza Virus 4 PCR Not Detected (NotDetected); Partial Thromboplastin Time 27 Seconds (21-31); Prothrombin Time 10.9 Seconds (9.0-12.0); Respiratory Syncytial VirusPCR Not Detected (NotDetected); Rhinovirus/Enterovirus PCR Not Detected (NotDetected)
[2023-08-26 15:58] LABS: D Dimer 720 ug/L FEU (0-500)
[2023-08-26] MEDS ORDERED: Heparin IV Adult Wt-Based Low-Dose *NO* INITIAL Bolus Protocol IV STA (17:26)
--- NOTE | 2023-08-26 17:36 | Electrocardiogram Report ---
Test Reason : Blood Pressure : / mmHG Vent. Rate : 107 BPM Atrial Rate : 000 BPM P-R Int : 000 ms QRS Dur : 140 ms QT Int : 370 ms P-R-T Axes : 000 -73 071 degrees QTc Int : 493 ms Atrial fibrillation with rapid ventricular response with premature ventricular or aberrantly conducte d complexes Right bundle branch block Left anterior fascicular block Bifascicular block Minimal voltage criteria for LVH, may be normal variant Abnormal ECG When compared with ECG of 14-MAY-2023 14:19, Atrial fibrillation has replaced Sinus rhythm Confirmed by Eliseo Bennett ([id number]) on 08/26/2023 5:36:17 PM Referred By: REFERRED SELF Confirmed By:Shiv Bennett
[2023-08-26] MEDS: METOPROLOL TARTRATE 1 MG/ML VIAL IV STA (17:39)
[2023-08-26] MEDS: METOCLOPRAMIDE HCL INJ 5 MG/ML 2 ML VIAL IV ONE (17:44)
--- NOTE | 2023-08-26 17:54 | History & Physical Report ---
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 He notes recent initiation of HD but has had trouble tolerating a full session of HD and feels like he has had worsening of fluid overload over the last 2-3 weeks. He does still make urine but output has overall decreased, even with the diuretics. Work-up in the ED showed an elevated BNP of 448 and troponin of 36.1. Chest x-ray personally reviewed with findings c/w mild pulmonary edema. - Admit to PCU - Given furosemide 40 mg IV x 1 dose in the ED - Consult nephrology to assist with management of volume status - will need HD, additional diuresis - Labs in the AM - Trend troponin - suspect elevation related to volume overload and episode of afib with RVR - Daily weights. Measure Is and Os (2) Atrial fibrillation with RVR: Plan: Given DuoNeb in the ED and developed new-onset atrial fibrillation with RVR. Given Lopressor 5 mg IV x 1 dose in the ED with improvement in rate. - Start metoprolol tartrate 12.5 mg Q6 hours - Consult cardiology for additional recommendations - Starting heparin gtt due to elevated [id number] (3) End-stage renal disease (ESRD): Plan: New HD start within the last several weeks - consult nephrology as discussed Renal diet, continue outpatient medications (4) COPD (chronic obstructive pulmonary disease): Plan: Symptoms do not seem consistent with acute COPD exacerbation - currently appears at baseline - Continue supplemental O2 (on 4L baseline) - Continue home meds - defer additional nebs, steroids (5) Chronic hypoxemic respiratory failure: Plan: Baseline O2 requirement of 4L (6) Restrictive lung disease: (7) HTN (hypertension): Plan: Chronic, stable Continue home meds Plan Pt seen and reviewed with collaborating physician, Dr. Matthew. 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 Pt was last admitted to this facility 05/14-05/17/23 for acute on chronic respiratory failure and hemoptysis found likely secondary to pneumonia with possible aspiration component. Treated with IV Unasyn before being transitioned to Augmentin at discharge. Since discharge, he reports that the hemoptysis had improved until he noted scant bright blood in the his sputum last night and today. He has continued to struggle with fluid overload despite increasing doses of diuretics. He reports recently starting dialysis but notes difficulty tolerating the treatments due to multiple symptoms. His last treatment was two days ago, and he reports tolerating it for three hours. However, he has felt progressively worse since this treatment. The dyspnea on exertion has been worsening slightly each day for the last 2-3 weeks. He reports being unable to walk further than from the bed to the door of the room without needing to stop and rest. He is supposed to be wearing 4L of O2 at all times, but review of outpatient records demonstrates some difficulty with patient complying with this recommendation. Over the last few days, his cough has become increasingly productive of thick yellow to green sputum. Cough may be forceful at times. He has also noted issues with shoulder pain for which he has been seeing orthopedics. He has not noted any significant improvement in his breathing since starting the HD. He does still make urine although reports this has been decreasing in amount. He denies fevers or chills. His abdominal distention has also worsened. Allergies Allergy/AdvReac Type Severity Reaction Status Date / Time No Known Allergies Allergy Verified 08/26/23 17:37 Home Medications Medication Instructions Recorded Confirmed Type carvedilol 3.125 mg tablet (Coreg) 3.125 mg PO BID 02/01/22 08/26/23 History nifedipine 60 mg tablet,extended 60 mg PO BID 02/01/22 08/26/23 History release 24 hr (Procardia XL) venlafaxine 37.5 mg 37.5 mg PO DAILY 02/01/22 08/26/23 History capsule,extended release 24 hr (Effexor XR) sodium bicarbonate 650 mg tablet 1,300 mg PO AMHS 06/19/22 08/26/23 History tamsulosin 0.4 mg capsule (Flomax) 0.4 mg PO QAM 06/19/22 08/26/23 History albuterol sulfate 2.5 mg/3 mL 2.5 mg inhalation UD 05/14/23 08/26/23 History (0.083 %) solution for nebulization albuterol sulfate 5 mg/mL(0.5 %) 2.5 mg inhalation UD 05/14/23 08/26/23 History solution for nebulization hydroxyzine HCl 50 mg tablet 50 mg PO HS PRN Insomnia 05/14/23 08/26/23 History nitroglycerin 0.4 mg sublingual 0.4 mg sublingual UD PRN Chest Pain 05/14/23 08/26/23 History tablet (Nitrostat) rosuvastatin 10 mg tablet 10 mg PO QAM 05/14/23 08/26/23 History buspirone 5 mg tablet 5 mg PO AMHS 08/26/23 08/26/23 History calcium acetate(phosphat bind) 667 1,334 mg PO UD 08/26/23 08/26/23 History mg capsule glycopyrrolate 9 mcg-formoterol 2 puff inhalation BID 08/26/23 08/26/23 History 4.8 mcg HFA aerosol inhaler (Bevespi Aerosphere) hydralazine 25 mg tablet 25 mg PO 3XWK 08/26/23 08/26/23 History midodrine 5 mg tablet 5 mg PO 3XWK 08/26/23 08/26/23 History torsemide 20 mg tablet 80 mg PO BID 08/26/23 08/26/23 History vitamin B complex-vitamin C-folic 1 tab PO 3XWK 08/26/23 08/26/23 History acid 0.8 mg tablet (Izzy-Vianney) Past Med/Surg History Problem List (Updated 08/26/23 @ 19:27 by Madonna Linder PA-C) Atrial fibrillation with RVR Hypersomnolent Restrictive lung disease Chronic pulmonary aspiration Volume overload End-stage renal disease (ESRD) (Acute) COPD with exacerbation Dyslipidemia BPH (benign prostatic hyperplasia) Coronary artery disease S/p stent 1998 HTN (hypertension) Chronic hypoxemic respiratory failure Anemia of chronic renal failure Hgb 8-9's per record review COPD (chronic obstructive pulmonary disease) Medical History Multifocal pneumonia History of DVT (deep vein thrombosis) Left renal mass Pneumonia due to COVID-19 virus Urinary frequency Hx of blood clots "IN MY LEGS AND 1 IN MY LUNGS A LONG TIME AGO">WAS ON BLOOD THINNERS, CAUSED BY PHLEBITIS History of COVID-19 02/02/22>STILL HAS FATIGUE Adjustment disorder with mixed disturbance of emotions and conduct History of basal cell carcinoma Carotid stenosis, right 50-69% stenosis to right ICA; <50% stenosis to left ICA per 06/22/21 carotid duplex History of stroke 2017 OR 2018 >NO RESIDUAL History of AR (myocardial infarction) 1998 MOLLY and COPD overlap syndrome WEARS 4L O2 AT HS Prediabetes PT DENIES Renal osteodystrophy Papillary renal cell carcinoma WITH MALIGNANCY>NO TREATMENT YET (CURRENT DX) Surgical History History of anesthesia reaction SLOW TO WAKE UP History of arthroscopy LEFT KNEE History of colonoscopy History of tooth extraction History of tonsillectomy History of cataract surgery RT/LEFT History of cholecystectomy History of appendectomy History of heart artery stent 1998>? # STENTS PLACED IN [facility] (FOLLWED BY DR. [facility]OU[facility]) Family History Other Colorectal cancer No family history of adverse response to anesthesia Social History (Updated 08/26/23 @ 19:00 by Madonna Linder PA-C) Smoking Status: Former smoker Second Hand Exposure: No; Do You Dip or Chew Tobacco: No; Hx Alcohol Use: No Hx Substance Use: No Preferred Language: [place] Islander Communication Ability: Effective Netbackup Engineer Required: No Beliefs That Will Affect Care: None Current Living Situation: Spouse Feels Safe at Home: Yes Assistive Devices: Cane and Oxygen - Continuous Review of Systems Review of Systems: All systems reviewed & are unremarkable except as noted in HPI & below Constitutional: + fatigue; no fever, no chills and no an orexia Ear, Nose, Mouth, Throat: no nasal congestion and no sore throat Respiratory: + cough, + dyspnea on exertion, + hemopt ysis (scant since last night) and + sputum production Cardiovascular: as per Subjective / HPI Gastrointestinal: + bloating; no vomiting and no blood in stools Genitourinary: no hematuria Integumentary: no yellowing of the skin Neurologic: + generalized weakness; no syncope and n o confusion Physical Exam Physical Exam: Please see physician note for details of the physical exam. Results & Data Results & Data Vital Signs (Past 12 Hours) Vital Signs Temp Pulse Pulse Resp BP BP Pulse Ox 08/26/23 17:45 82 22 147/60 H 94 08/26/23 17:39 157 H 114/69 08/26/23 17:38 153 H 16 114/69 91 08/26/23 15:40 91 H 08/26/23 15:37 90 08/26/23 15:30 158 H 98 08/26/23 14:44 100 H 22 98 08/26/23 14:34 105 H 08/26/23 14:32 104 H 16 138/103 H 88 L 08/26/23 14:17 36.6 C 97 H 22 122/52 L 88 L 08/26/23 14:17 08/26/23 14:12 O2 Del Method O2 Flow Rate 08/26/23 17:45 Nasal Cannula 4 08/26/23 17:39 08/26/23 17:38 Nasal Cannula 4 08/26/23 15:40 08/26/23 15:37 08/26/23 15:30 Nasal Cannula 4 08/26/23 14:44 Nasal Cannula 4 08/26/23 14:34 08/26/23 14:32 Room Air 08/26/23 14:17 Room Air 08/26/23 14:17 Room Air 08/26/23 14:12 Nasal Cannula 4 Laboratory Results Lab Results 08/26/23 Range/Units 14:35 WBC 7.94 (4.8-10.8) K/ul RBC 3.55 L (4.70-6.10) M/uL Hgb 9.2 L (14.0-18.0) g/dl Hct 30.6 L (42.0-52.0) % MCV 86.2 (80.0-100.0) fL MCH 25.9 (25.0-34.0) pg MCHC 30.1 L (32.0-36.0) g/dL RDW Std Deviation 50.2 H (36.4-46.3) fL RDW Coeff of John 16.0 H (11.5-14.5) % Plt Count 109 L (130-400) K/uL MPV 10.4 (9.4-12.4) fL Immature Gran % (Auto) 0.3 % Neut % (Auto) 85.1 % Lymph % (Auto) 3.1 % [place] % (Auto) 10.2 % Eos % (Auto) 1.0 % Baso % (Auto) 0.3 % Neut # (Auto) 6.76 H (1.40-6.50) K/uL Lymph # (Auto) 0.25 L (1.20-3.40) K/uL [place] # (Auto) 0.81 H (0.11-0.59) K/uL Eos # (Auto) 0.08 (0.00-0.50) K/uL Baso # (Auto) 0.02 (0.00-0.20) K/uL Immature Gran # (Auto) 0.02 (0.01-0.20) K/uL PT 10.9 (9.0-12.0) Seconds INR 1.0 (0.9-1.1) APTT 27 (21-31) Seconds PTT Ratio 1.0 D-Dimer 720 H* (0-500) ug/L FEU VBG pH 7.32 L (7.36-7.41) VBG pCO2 60 H (38-50) mmHg VBG pO2 38 mmHg VBG HCO3 31 mmol/L VBG O2 Saturation < 60.0 % VBG Base Excess 3.8 mEq/L Sodium 137 (136-145) mmol/L Potassium 4.1 (3.5-5.1) mmol/L Chloride 97 L (98-107) mmol/L Carbon Dioxide 32 (21-32) mmol/L Anion Gap 8 (3-11) BUN 60 H (6-23) mg/dl Creatinine 3.76 H (0.6-1.4) mg/dl Est Cr Clr Drug Dosing 15.0 ml/min Est GFR ( Amer) 16.2 ml/min Est GFR (Non-Af Amer) 14.0 ml/min BUN/Creatinine Ratio 16.0 (10-20) Glucose 179 H (70-99(Fasting)) mg/dl Lactate 1.4 (0.4-2.0) mmol/L Calcium 8.5 L (8.6-10.3) mg/dl Magnesium 2.0 (1.7-2.4) mg/dl Total Bilirubin 0.6 (0.2-1.0) mg/dl Direct Bilirubin 0.1 (0-0.2) mg/dl AST 13 (13-39) U/L ALT 11 (7-52) U/L Alkaline Phosphatase 55 (34-104) U/L Troponin I High Sens 36.1 H (0-20) pg/ml B-Natriuretic Peptide 448 H (0-100) pg/ml Total Protein 6.8 (6.0-8.3) gm/dl Albumin 3.7 (3.4-5.0) gm/dl Lipase 44 (11-82) U/L Procalcitonin 0.51 H (0-0.5) ng/ml Adenovirus (PCR) Not Detected (NotDetected) B. pertussis DNA (PCR) Not Detected (NotDetected) B.parapertussis DNA PCR Not Detected (NotDetected) C. pneumoniae DNA (PCR) Not Detected (NotDetected) Coronavirus OC43 (PCR) Not Detected (NotDetected) Coronavirus HKU1 (PCR) Not Detected (NotDetected) Coronavirus 229E (PCR) Not Detected (NotDetected) SARS-CoV-2 (PCR) Not Detected (NotDetected) Coronavirus NL63 (PCR) Not Detected (NotDetected) Human Metapneumovir PCR Not Detected (NotDetected) Influenza Type A (PCR) Not Detected (NotDetected) Influenza Type B (PCR) Not Detected (NotDetected) M. pneumoniae (PCR) Not Detected (NotDetected) Parainfluenza 1 (PCR) Not Detected (NotDetected) Parainfluenza 2 (PCR) Not Detected (NotDetected) Parainfluenza 3 (PCR) Not Detected (NotDetected) Parainfluenza 4 (PCR) Not Detected (NotDetected) RSV (PCR) Not Detected (NotDetected) Entero/Rhino (PCR) Not Detected (NotDetected) Diagnostic Findings Chest X-Ray 08/26/23 14:30 XR chest 1V portable CLINICAL HISTORY: sob TECHNIQUE: Single frontal radiograph of the chest was obtained. Comparison: Comparison is made to chest radiograph 05/25/2023 FINDINGS: No lines and tubes are seen. Calcified aortic knob is seen. Prominence and cephalization of the vasculature is seen. No evidence of pleural effusion or pneumothorax. IMPRESSION: Cardiomegaly and mild pulmonary edema. ACT 112: Negative or not required by law. Electronically signed by: Elio Pacheco M.D. 08/26/2023 3:06 PM Medications Administered Discontinued Medications Albuterol (Albut/Ipratrop 3mg/0.5mg Neb 3 Ml Vial) 3 ml NEB NOW STA; Protocol Stop: 08/26/23 15:02 Last Admin: 08/26/23 15:19 Dose: 3 ml Documented By: SALOMON Furosemide (Furosemide 40 Mg/4 Ml Vial) 40 mg IV ONE ONE Stop: 08/26/23 17:13 Last Admin: 08/26/23 17:57 Dose: 40 mg Documented By: SALOMON Metoclopramide HCl (Metoclopramide Hcl Inj 5 Mg/Ml 2 Ml Vial) 5 mg IV ONE ONE Stop: 08/26/23 17:13 Last Admin: 08/26/23 17:44 Dose: Not Given Documented By: SALOMON Metoprolol Tartrate (Metoprolol Tartrate 1 Mg/Ml Vial) 5 mg IV NOW STA Stop: 08/26/23 17:18 Last Admin: 08/26/23 17:39 Dose: 5 mg Documented By: SALOMON Prednisone (Prednisone 50 Mg Tab) 50 mg PO NOW STA Stop: 08/26/23 15:02 Last Admin: 08/26/23 15:18 Dose: 50 mg Documented By: SALOMON Code Status & VTE Plan VTE Prophylaxis Plan VTE Prophylaxis will be ordered: Yes Supervising Physician Co-Signing Physician Notes I have seen and discussed the case with the collaborating advanced practitioner. I agree with the above H&P. I have reviewed and confirmed the patients medical history, the findings on physical examination, and the patients diagnosis and treatment plan with Kailash CUENCA and agree with the information documented. In short, Mr. Pinedo is an 82 year old gentleman with history of CAD s/p stent,ESRD with AVF, COPD(wears nocturnal [id number]), MOLLY, HTN, carotid stenosis, HTN, DDD, anemia, anxiety, CVA with R sided weakness, COVID infection (02/2021), prediabetes, BPH, hx of RLE DVT and PE (was on coumadin) who is admitted for evaluation of SOB and subsequent a fib RVR s/p neb. Patient states that for weeks he has felt SOB and has attempting HD without much symptomatic improvement. Upon arriving to ED, patient was given methyl pred and neb, which precipitated a fib rvr/SVT with rates to 150s terminated with 5 of IV lopressor. O2 requirements stable. Patient chronic sputum production.Imaging with worsening congestion. Denies fevers chills chest pain palpitations. Reports abdominal fullness. GENERAL APPEARANCE: AxOx4, chronically ill appearing gentleman, no acute distress. HEENT: NC, AT. MMM. EOMI, clear conjunctiva, oropharynx clear. NECK: Supple without lymphadenopathy. No stiffness or restricted ROM. HEART: rates in 150s SVT at time of exam, terminated at bedside 5 lopressor to a fib with rates in 90s LUNGS: diffuse rhonchi, dry cough ABDOMEN: firm, nondistended with good bowel sounds heard. BACK: No CVAT, no obvious deformity. EXTREMITIES: Without cyanosis, clubbing or edema. NEUROLOGICAL: Grossly nonfocal. Alert and oriented, moving all 4 extremities. CN not formally tested but appear grossly intact Skin: Warm and dry without any rash. #SOB Multifactorial as below, Cannot perform contrasted study 2/2 renal function/dysfunction given history of malignancy, ERSD contributing to volume overload, infection, differential broad #Acute Heart failure with preserved EF iso ESRD s/p 40 mg lasix in ED, add additional 60mg IV for 100mg total Nephrology for HD and further diuretic mgmt #New atrial fibrillation with RVR #SVT admit PCU Heparin given [id number] Metoprolol 12.5mg q6h, hold coreg Monitor on tele #Chronic Hypoxic respiratory failure, 4L O2 #COPD #House Coordinator's pneumoconiosis #Prior mycotic infection/pneumonia 2017 #MOLLY Last followed Pulm in 06/2023, 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, 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 >40 years ago continue home inhalers flutter valve sputum culture Procal elevated iso no leukocytosis, ESRD--will hold abx at this time, sputum culture pending -long history of recurrent pneumonia consider pulm consult for abx discussion #Anemia of chronic disease, renal disease stable #HTN -Continue nifedipine 60mg BID #ESRD on HD #Left renal mass, RCC #Azotemia -continue bicarb BID -Nephrology consult for diuresis guidance -Daily weights #CAD s/p stent 1998 #Carotid stenosis, right #HLD Continue statin,bp control as above rest of plan as above I spent a total of 35 minutes coordinating, documenting, and providing care for this patient excluding time spent in the performance of separately billed services. All of the aforementioned completed outside of collaborating with the assigned advanced practitioner for a full treatment plan. I have reviewed the advanced practitioner's documentation, and I agree with, and take responsibility for the plan of care (1) Volume overload Hypervolemia type: unspecified Qualified Code(s): E87.70 - Fluid overload, unspecified (4) COPD (chronic obstructive pulmonary disease) COPD type: chronic bronchitis Chronic bronchitis type: simple Qualified Code(s): J41.0 - Simple chronic bronchitis (7) HTN (hypertension) Hypertension type: unspecified Qualified Code(s): I10 - Essential (primary) hypertension
[2023-08-26] MEDS: FUROSEMIDE 40 MG/4 ML VIAL IV ONE ×2 (17:57→20:07)
[2023-08-26] MEDS: METOPROLOL TARTRATE 25 MG TAB PO SCH (18:15)
[2023-08-26] MEDS: HEPARIN SODIUM/DEXTROSE 25,000 UNITS/500 ML BAG IV SCH (18:21)
[2023-08-26] MEDS ORDERED: POLYETHYLENE (MIRALAX) 17 GM PACK PO PRN (19:52)
[2023-08-26] MEDS ORDERED: hydrOXYzine HCl 25 MG TAB PO PRN (19:52)
[2023-08-26] MEDS ORDERED: hydrALAZINE HCL 25 MG TAB PO PRN (19:52)
[2023-08-26] MEDS ORDERED: ACETAMINOPHEN 325 MG TAB PO PRN (19:52)
[2023-08-26] MEDS: POTASSIUM CHLORIDE CRTAB 20 MEQ TABCR PO STA (20:06)
[2023-08-26] MEDS: UMECLIDINIUM/VILANTEROL 62.5/25MCG 7 PUFFS/INHALER INH SCH (21:01)
[2023-08-26] MEDS: busPIRone 5 MG TAB PO SCH (21:02)
[2023-08-26] MEDS: NIFEdipine EXTENDED REL 30 MG TABCR PO SCH (21:03)
[2023-08-26] MEDS: SODIUM BICARBONATE 650 MG TAB PO SCH (21:04)
[2023-08-26] MEDS: guaiFENesin 600 MG TABCR PO SCH (21:05)
--- NOTE | 2023-08-26 22:38 | Emergency Department Note ---
History of Present Illness General Chief Complaint: Chest Pain Stated Complaint: REF BY DOC, POSSIBLE PNEUMONIA,BURNIGN LUNGS Time Seen by Provider: 08/26/23 14:29 History of Present Illness Provider Complaint: shortness of breath, cough and chest pain Onset (ago): day(s) (2) Consistency/Duration: + progressively worsening Maximum Pain Intensity: 6 Exacerbated By: + exertion and + coughing Known history of: COPD and congestive heart failure Associated symptoms: + wheezing, + sputum production (Bloody sputum) and + chest congestion; no hemoptysis Related Data Home oxygen amount: 4 liters Home Medications Medication Instructions Recorded Confirmed Type carvedilol 3.125 mg tablet (Coreg) 3.125 mg PO BID 02/01/22 08/26/23 History nifedipine 60 mg tablet,extended 60 mg PO BID 02/01/22 08/26/23 History release 24 hr (Procardia XL) venlafaxine 37.5 mg 37.5 mg PO DAILY 02/01/22 08/26/23 History capsule,extended release 24 hr (Effexor XR) sodium bicarbonate 650 mg tablet 1,300 mg PO AMHS 06/19/22 08/26/23 History tamsulosin 0.4 mg capsule (Flomax) 0.4 mg PO QAM 06/19/22 08/26/23 History albuterol sulfate 2.5 mg/3 mL 2.5 mg inhalation UD 05/14/23 08/26/23 History (0.083 %) solution for nebulization albuterol sulfate 5 mg/mL(0.5 %) 2.5 mg inhalation UD 05/14/23 08/26/23 History solution for nebulization hydroxyzine HCl 50 mg tablet 50 mg PO HS PRN Insomnia 05/14/23 08/26/23 History nitroglycerin 0.4 mg sublingual 0.4 mg sublingual UD PRN Chest Pain 05/14/23 08/26/23 History tablet (Nitrostat) rosuvastatin 10 mg tablet 10 mg PO QAM 05/14/23 08/26/23 History buspirone 5 mg tablet 5 mg PO AMHS 08/26/23 08/26/23 History calcium acetate(phosphat bind) 667 1,334 mg PO UD 08/26/23 08/26/23 History mg capsule glycopyrrolate 9 mcg-formoterol 2 puff inhalation BID 08/26/23 08/26/23 History 4.8 mcg HFA aerosol inhaler (Bevespi Aerosphere) hydralazine 25 mg tablet 25 mg PO 3XWK 08/26/23 08/26/23 History midodrine 5 mg tablet 5 mg PO 3XWK 08/26/23 08/26/23 History torsemide 20 mg tablet 80 mg PO BID 08/26/23 08/26/23 History vitamin B complex-vitamin C-folic 1 tab PO 3XWK 08/26/23 08/26/23 History acid 0.8 mg tablet (Izzy-Vianney) Allergies Allergy/AdvReac Type Severity Reaction Status Date / Time No Known Allergies Allergy Verified 08/26/23 17:37 Past Med/Surg History Problem List (Updated 08/26/23 @ 22:38 by Garry Castorena MD) Atrial fibrillation with RVR (Acute) Hypersomnolent Restrictive lung disease Chronic pulmonary aspiration Volume overload (Acute) End-stage renal disease (ESRD) (Acute) COPD with exacerbation (Acute) Dyslipidemia BPH (benign prostatic hyperplasia) Coronary artery disease S/p stent 1998 HTN (hypertension) Chronic hypoxemic respiratory failure Anemia of chronic renal failure Hgb 8-9's per record review COPD (chronic obstructive pulmonary disease) Medical History Multifocal pneumonia History of DVT (deep vein thrombosis) Left renal mass Pneumonia due to COVID-19 virus Urinary frequency Hx of blood clots "IN MY LEGS AND 1 IN MY LUNGS A LONG TIME AGO">WAS ON BLOOD THINNERS, CAUSED BY PHLEBITIS History of COVID-19 02/02/22>STILL HAS FATIGUE Adjustment disorder with mixed disturbance of emotions and conduct History of basal cell carcinoma Carotid stenosis, right 50-69% stenosis to right ICA; <50% stenosis to left ICA per 06/22/21 carotid duplex History of stroke 2017 OR 2018 >NO RESIDUAL History of IA (myocardial infarction) 1998 MOLLY and COPD overlap syndrome WEARS 4L O2 AT HS Prediabetes PT DENIES Renal osteodystrophy Papillary renal cell carcinoma WITH MALIGNANCY>NO TREATMENT YET (CURRENT DX) Surgical History History of anesthesia reaction SLOW TO WAKE UP History of arthroscopy LEFT KNEE History of colonoscopy History of tooth extraction History of tonsillectomy History of cataract surgery RT/LEFT History of cholecystectomy History of appendectomy History of heart artery stent 1998>? # STENTS PLACED IN [facility] (FOLLWED BY DR. JACK SOUSA [facility]) Family History Other Colorectal cancer No family history of adverse response to anesthesia Social History Smoking Status: Former smoker Second Hand Exposure: No; Do You Dip or Chew Tobacco: No; Hx Alcohol Use: No Hx Substance Use: No Preferred Language: Mauritian Communication Ability: Effective Quality Improvement Coordinator Required: No Beliefs That Will Affect Care: None Current Living Situation: Spouse Feels Safe at Home: Yes Safety Concerns: Feels Safe At This Time Assistive Devices: Cane, Denture - Upper and Oxygen - Continuous Physical Exam 2 Vital Signs: Vital Signs - 24 hr 08/26/23 14:12 08/26/23 14:17 08/26/23 14:17 Temperature 36.6 C Temperature Source Temporal Artery Sc an Pulse Rate 97 H Pulse Rate [Apical ] Pulse Rhythm Respiratory Rate 22 Respiratory Effort / Characteristics Spontaneous Labore d Short of Breath Non-Labored Short of Breath Respiratory Depth Normal Normal Respiratory Patter n Regular Blood Pressure 122/52 L Blood Pressure [Le ft Arm] Blood Pressure Darcy n 75 Blood Pressure Darcy n [Left Arm] Blood Pressure Pos ition Sitting Pulse Oximetry 88 L Oxygen Delivery Me thod Nasal Cannula Room Air Room Air Oxygen Flow Rate 4 Sepsis Recent Feve r Within 48 Hours No Sepsis New/Unexpla ined Change in Men fazal Status N/A Sepsis Action Take n by Nursing No Action Required 08/26/23 14:32 08/26/23 14:34 08/26/23 14:44 Temperature Temperature Source Pulse Rate 105 H 100 H Pulse Rate [Apical ] 104 H Pulse Rhythm Regular Respiratory Rate 16 22 Respiratory Effort / Characteristics Respiratory Depth Respiratory Patter n Blood Pressure Blood Pressure [Le ft Arm] 138/103 H Blood Pressure Darcy n Blood Pressure Darcy n [Left Arm] 114 Blood Pressure Pos ition Pulse Oximetry 88 L 98 Oxygen Delivery Me thod Room Air Nasal Cannula Oxygen Flow Rate 4 Sepsis Recent Feve r Within 48 Hours Sepsis New/Unexpla ined Change in Men fazal Status Sepsis Action Take n by Nursing 08/26/23 15:30 08/26/23 15:37 08/26/23 15:40 Temperature Temperature Source Pulse Rate 91 H Pulse Rate [Apical ] 158 H 90 Pulse Rhythm Respiratory Rate Respiratory Effort / Characteristics Respiratory Depth Respiratory Patter n Blood Pressure Blood Pressure [Le ft Arm] Blood Pressure Darcy n Blood Pressure Darcy n [Left Arm] Blood Pressure Pos ition Pulse Oximetry 98 Oxygen Delivery Me thod Nasal Cannula Oxygen Flow Rate 4 Sepsis Recent Feve r Within 48 Hours Sepsis New/Unexpla ined Change in Men fazal Status Sepsis Action Take n by Nursing Physical Exam: Physical Exam GENERAL: oriented to person, place, and time. appears well-developed and well- nourished. HENT: Exam performed. - Head: Normocephalic and atraumatic. EYES: Conjunctivae and EOM are normal. Right eye exhibits no discharge. Left eye exhibits no discharge. No scleral icterus. NECK: Normal range of motion. Neck supple. No JVD present. CV: Normal rate, irregular rhythm, normal heart sounds and intact distal pulses. There is no peripheral edema. Palpable radial pulses bue. PULM/CHEST: Diffuse expiratory wheezes. ABD: The abdomen is soft. There is no tenderness. NEURO: Motor and sensation grossly intact. SKIN: Skin is warm and dry. He is not diaphoretic. PSYCH: normal mood and affect. Behavior is normal. Judgment and thought content normal. Course Course 1429: The patient was evaluated in room C3. A complete history and physical exam was performed Cardiac monitoring: An order was placed for continuous cardiac monitoring. The monitor shows a rate of 100 with atrial fibrilation rhythm interpreted by me 1545: Status post 1 DuoNeb the patient went into rapid ventricular rate that was transient. 1715: Vital signs stable. Patient's atrial fibrillation ranges from 100-140. Labs white blood cell count 7.94 hemoglobin 9.2 D-dimer 720 VBG shows venous pH 7.32 venous pCO2 of 60. Patient's creatinine is elevated 3.76 which appears to be at his baseline. Patient's high-sensitivity troponins is 36.1. Procalcitonin 0.51. BNP 448. Imaging shows cardiomegaly with mild pulmonary edema. Discussed the case with [facility] admitting physician Dr. Matthew. She recommends given the patient metoprolol for his intermittent A-fib with RVR 5 mg IV instead of Cardizem drip. She also recommends given the patient's Lasix 40 mg IV. Patient be admitted to her service. Administered Medications Buspirone HCl (Buspirone 5 Mg Tab) 5 mg PO AMHS [facility] Stop: 09/25/23 20:59 Last Admin: 08/26/23 21:02 Dose: 5 mg Documented By: SALOMON Guaifenesin (Guaifenesin 600 Mg Tabcr) 600 mg PO Q12 [facility] Stop: 09/25/23 20:59 Last Admin: 08/26/23 21:05 Dose: 600 mg Documented By: SALOMON Heparin Sodium/Dextrose (Heparin Sodium/Dextrose) 25,000 units in 500 mls @ 17 mls/hr IV .Q24H [facility]; Protocol Stop: 09/25/23 17:44 Last Admin: 08/26/23 18:21 Dose: 850 units/hr, 17 mls/hr Documented By: SALOMON Co-signed By: PENNY Metoprolol Tartrate (Metoprolol Tartrate 25 Mg Tab) 12.5 mg PO Q6H [facility] Stop: 09/25/23 17:54 Last Admin: 08/26/23 18:15 Dose: 12.5 mg Documented By: SALOMON Nifedipine (Nifedipine Extended Rel 30 Mg Tabcr) 60 mg PO BID MARCOS Stop: 09/25/23 20:59 Last Admin: 08/26/23 21:03 Dose: 60 mg Documented By: SALOMON Sodium Bicarbonate (Sodium Bicarbonate 650 Mg Tab) 1,300 mg PO AMHS [facility] Stop: 09/25/23 20:59 Last Admin: 08/26/23 21:04 Dose: 1,300 mg Documented By: SALOMON Umeclidinium/Vilanterol (Umeclidinium/Vilanterol 62.5/25mcg 7 Puffs/Inhaler) 1 puffs INH DAILY [facility]; Protocol Stop: 09/25/23 20:44 Last Admin: 08/26/23 21:01 Dose: 1 puffs Documented By: SALOMON Discontinued Medications Albuterol (Albut/Ipratrop 3mg/0.5mg Neb 3 Ml Vial) 3 ml NEB NOW STA; Protocol Stop: 08/26/23 15:02 Last Admin: 08/26/23 15:19 Dose: 3 ml Documented By: SALOMON Furosemide (Furosemide 40 Mg/4 Ml Vial) 40 mg IV ONE ONE Stop: 08/26/23 17:13 Last Admin: 08/26/23 17:57 Dose: 40 mg Documented By: SALOMON Furosemide (Furosemide 40 Mg/4 Ml Vial) 60 mg IV ONE ONE Stop: 08/26/23 19:48 Last Admin: 08/26/23 20:07 Dose: 60 mg Documented By: SALOMON Metoclopramide HCl (Metoclopramide Hcl Inj 5 Mg/Ml 2 Ml Vial) 5 mg IV ONE ONE Stop: 08/26/23 17:13 Last Admin: 08/26/23 17:44 Dose: Not Given Documented By: SALOMON Metoprolol Tartrate (Metoprolol Tartrate 1 Mg/Ml Vial) 5 mg IV NOW STA Stop: 08/26/23 17:18 Last Admin: 08/26/23 17:39 Dose: 5 mg Documented By: SALOMON Potassium Chloride (Potassium Chloride Crtab 20 Meq Tabcr) 40 meq PO NOW STA Stop: 08/26/23 19:49 Last Admin: 08/26/23 20:06 Dose: 40 meq Documented By: SALOMON Prednisone (Prednisone 50 Mg Tab) 50 mg PO NOW STA Stop: 08/26/23 15:02 Last Admin: 08/26/23 15:18 Dose: 50 mg Documented By: SALOMON Medical Decision Making Laboratory Data Attestation: I reviewed the patient's lab results. 08/26/23 14:35 08/26/23 14:35 Lab Results 08/26/23 Range/Units 14:35 WBC 7.94 (4.8-10.8) K/ul RBC 3.55 L (4.70-6.10) M/uL Hgb 9.2 L (14.0-18.0) g/dl Hct 30.6 L (42.0-52.0) % MCV 86.2 (80.0-100.0) fL MCH 25.9 (25.0-34.0) pg MCHC 30.1 L (32.0-36.0) g/dL RDW Std Deviation 50.2 H (36.4-46.3) fL RDW Coeff of John 16.0 H (11.5-14.5) % Plt Count 109 L (130-400) K/uL MPV 10.4 (9.4-12.4) fL Immature Gran % (Auto) 0.3 % Neut % (Auto) 85.1 % Lymph % (Auto) 3.1 % York % (Auto) 10.2 % Eos % (Auto) 1.0 % Baso % (Auto) 0.3 % Neut # (Auto) 6.76 H (1.40-6.50) K/uL Lymph # (Auto) 0.25 L (1.20-3.40) K/uL York # (Auto) 0.81 H (0.11-0.59) K/uL Eos # (Auto) 0.08 (0.00-0.50) K/uL Baso # (Auto) 0.02 (0.00-0.20) K/uL Immature Gran # (Auto) 0.02 (0.01-0.20) K/uL PT 10.9 (9.0-12.0) Seconds INR 1.0 (0.9-1.1) APTT 27 (21-31) Seconds PTT Ratio 1.0 D-Dimer 720 H* (0-500) ug/L FEU VBG pH 7.32 L (7.36-7.41) VBG pCO2 60 H (38-50) mmHg VBG pO2 38 mmHg VBG HCO3 31 mmol/L VBG O2 Saturation < 60.0 % VBG Base Excess 3.8 mEq/L Sodium 137 (136-145) mmol/L Potassium 4.1 (3.5-5.1) mmol/L Chloride 97 L (98-107) mmol/L Carbon Dioxide 32 (21-32) mmol/L Anion Gap 8 (3-11) BUN 60 H (6-23) mg/dl Creatinine 3.76 H (0.6-1.4) mg/dl Est Cr Clr Drug Dosing 15.0 ml/min Est GFR ( Amer) 16.2 ml/min Est GFR (Non-Af Amer) 14.0 ml/min BUN/Creatinine Ratio 16.0 (10-20) Glucose 179 H (70-99(Fasting)) mg/dl Lactate 1.4 (0.4-2.0) mmol/L Calcium 8.5 L (8.6-10.3) mg/dl Magnesium 2.0 (1.7-2.4) mg/dl Total Bilirubin 0.6 (0.2-1.0) mg/dl Direct Bilirubin 0.1 (0-0.2) mg/dl AST 13 (13-39) U/L ALT 11 (7-52) U/L Alkaline Phosphatase 55 (34-104) U/L Troponin I High Sens 36.1 H (0-20) pg/ml B-Natriuretic Peptide 448 H (0-100) pg/ml Total Protein 6.8 (6.0-8.3) gm/dl Albumin 3.7 (3.4-5.0) gm/dl Lipase 44 (11-82) U/L Procalcitonin 0.51 H (0-0.5) ng/ml Adenovirus (PCR) Not Detected (NotDetected) B. pertussis DNA (PCR) Not Detected (NotDetected) B.parapertussis DNA PCR Not Detected (NotDetected) C. pneumoniae DNA (PCR) Not Detected (NotDetected) Coronavirus OC43 (PCR) Not Detected (NotDetected) Coronavirus HKU1 (PCR) Not Detected (NotDetected) Coronavirus 229E (PCR) Not Detected (NotDetected) SARS-CoV-2 (PCR) Not Detected (NotDetected) Coronavirus NL63 (PCR) Not Detected (NotDetected) Human Metapneumovir PCR Not Detected (NotDetected) Influenza Type A (PCR) Not Detected (NotDetected) Influenza Type B (PCR) Not Detected (NotDetected) M. pneumoniae (PCR) Not Detected (NotDetected) Parainfluenza 1 (PCR) Not Detected (NotDetected) Parainfluenza 2 (PCR) Not Detected (NotDetected) Parainfluenza 3 (PCR) Not Detected (NotDetected) Parainfluenza 4 (PCR) Not Detected (NotDetected) RSV (PCR) Not Detected (NotDetected) Entero/Rhino (PCR) Not Detected (NotDetected) Imaging Data Radiologist's Impression: Chest X-Ray 08/26/23 14:30 XR chest 1V portable CLINICAL HISTORY: sob TECHNIQUE: Single frontal radiograph of the chest was obtained. Comparison: Comparison is made to chest radiograph 05/25/2023 FINDINGS: No lines and tubes are seen. Calcified aortic knob is seen. Prominence and cephalization of the vasculature is seen. No evidence of pleural effusion or pneumothorax. IMPRESSION: Cardiomegaly and mild pulmonary edema. ACT 112: Negative or not required by law. Electronically signed by: Elio Pacheco M.D. 08/26/2023 3:06 PM ECG Data Attestation: I personally reviewed and interpreted this ECG as follows: Interpretation: EKG #1 at 1427: Atrial fibrillation with a rate of 107. QRS [address] elevation or ST depression. Right bundle branch block present. PVCs present. EKG #2 at 1534 status post 1 DuoNeb: Atrial fibrillation with a rate of 145. QRS [address] elevation or ST depression. Right bundle branch block present. EKG #3 at 1546: Atrial fibrillation with a rate of 92. QRS [address] elevation or ST depression. Right bundle branch block present. [facility] Narrative 1429: The patient was evaluated in room C3. A complete history and physical exam was performed Cardiac monitoring: An order was placed for continuous cardiac monitoring. The monitor shows a rate of 100 with atrial fibrilation rhythm interpreted by nv 1545: Status post 1 DuoNeb the patient went into rapid ventricular rate that was transient. 1715: Vital signs stable. Patient's atrial fibrillation ranges from 100-140. Labs white blood cell count 7.94 hemoglobin 9.2 D-dimer 720 VBG shows venous pH 7.32 venous pCO2 of 60. Patient's creatinine is elevated 3.76 which appears to be at his baseline. Patient's high-sensitivity troponins is 36.1. Procalcitonin 0.51. BNP 448. Imaging shows cardiomegaly with mild pulmonary edema. Discussed the case with [facility] admitting physician Dr. Matthew. She recommends given the patient metoprolol for his intermittent A-fib with RVR 5 mg IV instead of Cardizem drip. She also recommends given the patient's Lasix 40 mg IV. Patient be admitted to her service. Impression & Plan Volume overload, COPD with exacerbation, End-stage renal disease (ESRD), Atrial fibrillation with RVR Discharge Plan Visit Data Chief Complaint: Chest Pain Stated Complaint: REF BY DOC, POSSIBLE PNEUMONIA,BURNIGN LUNGS ED Provider: Garry Castorena Discharge Problem: Volume overload, COPD with exacerbation, End-stage renal disease (ESRD), Atrial fibrillation with RVR Patient Disposition: Admitted As Inpatient Discharge Instructions Interventions: ED Discharge Assessment Last Done: 08/26/23 19:41
--- OUTSIDE RECORDS SUMMARY | 2023-08-27 01:16 | External Medical Summary | Summary of Care ---
Author Name Unknown Organization [facility] Address [address] [place] [place] [place] [address] Phone [phone] Care Team Providers Care [employer] T[employer]er Name Role Phone Jody Arora MD Primary Care Provide r Reason for Visit * Reason Comments Pain Encounter Details Date Type Department Care Team (Late st Contact Info) Description 08/22/2023 3:30 PM EDT Telemedicine Orthopaedics [address] [phone] Ankit Castorena MD [address] [place] [id number] Acute pain of right shoulder* Allergies No known active allergiesdocumented as of this encounter (statuses as of 08/23/2023) Medications Medication Sig Dispensed Refills Start Date End Date Status nitroglycerin (NITROSTAT) 0.4 MG SUBL 1 Tablet. 08/19/2018 Active Melatonin 10 MG Oral Capsule Take 1 Capsule by mouth at bedtime. Active Ipratropium-Albutero l 0.5-2.5 (3) MG/3ML Inhalation Solution (Duoneb)Indications: Chronic hypoxemic respiratory failure (HCC),COPD, group C, by GOLD 2017 classification ([facility]) Inhale 3 mL via nebulizer every 4 hours as needed for Wheezing. 120 mL 1 10/17/2022 Active Additional Information Patient not taking.Reported on 04/24/2023 Venlafaxine HCl ER 37.5 MG Oral Capsule [...] the morning 90 Capsule 1 02/28/2023 Active Sodium Bicarbonate 650 MG Oral Tablet TAKE 2 TABLETS BY MOUTH IN THE MORNING AND 2 BEFORE BEDTIME 120 Tablet 04/15/2023 Active Rosuvastatin Calcium 10 MG Oral Tablet (Crestor) Take 1 Tablet by mouth in the morning. 90 Tablet 1 04/16/2023 Active oxygen IN GAS Use 4 L/min(Oxygen) as directed. Uses "in the evening" Active hydrOXYzine HCl 50 MG Oral TabletIndications:Pr imary insomnia TAKE 1 TABLET BY MOUTH AT BEDTIME NEEDED FOR INSOMNIA 30 Tablet 3 05/13/2023 Active Fluticasone-Salmeter ol 250-50 MCG/ACT Inhalation Aerosol Powder Breath Activated (Advair Diskus)Indications:C OPD, group C, by GOLD 2017 classification ([facility]) INHALE 1 DOSE BY MOUTH IN THE MORNING AND 1 AT BEDTIME 60 Each 05/28/2023 Active Ventolin HFA 108 (90 Base) MCG/ACT Inhalation Aerosol SolutionIndications: COPD, group D, by GOLD 2017 classification ([facility]) Inhale 2 Puffs by mouth every 4 hours as needed for Wheezing. 18 g 2 05/28/2023 Active Albuterol Sulfate (2.5 MG/3ML) 0.083% Inhalation Nebulization Solution (Proventil)Indicatio ns:COPD, group D, by GOLD 2017 classification ([facility]) Inhale 1 Vial via nebulizer every 4 hours as needed for Wheezing. 100 mL 1 05/28/2023 Active Albuterol Sulfate (2.5 MG/3ML) 0.083% Inhalation Nebulization Solution (Proventil)Indicatio ns:Pneumonia due to COVID-19 virus Inhale 1 Vial via nebulizer every 6 hours as needed for Wheezing. 360 mL 06/20/2023 Active Torsemide 20 MG Oral Tablet (Demadex)Indications :ESRD needing dialysis (HCC) Take 4 Tablets by mouth 2 times a day in the morning and at noon. 120 Tablet 5 07/05/2023 Active Carvedilol 3.125 MG Oral Tablet (Coreg) Take 1 tablet by mouth twice daily with food 180 Tablet 1 07/18/2023 Active methylPREDNISolone 4 MG Oral Tablet Therapy Pack (Medrol Dosepack) follow package directions 21 Tablet 07/27/2023 Active LORazepam 0.5 MG Oral Tablet (Ativan)Indications: Phobia, unspecified type Take one tablet 15-20 mins prior to the MRI study 1 Tablet 08/07/2023 Active traMADol HCl 50 MG Oral Tablet (Ultram)Indications: Pain in joint of right shoulder Take 1 Tablet by mouth at bedtime as needed for Pain, Severe. 30 Tablet 08/13/2023 Active Renal Vitamin 0.8 MG Oral Tablet Take 1 Tablet by mouth daily. With midday meal post dialysis 08/15/2023 Active Midodrine HCl 5 MG Oral Tablet (Proamatine) Take 1 Tablet by mouth daily. Prior to dialysis 08/15/2023 Active Calcium Acetate (Phos Binder) 667 MG Oral Capsule (Phoslo) Take 2 Capsules by mouth in the morning and 2 Capsules at noon and 2 Capsules in the evening. Take with meals. Take 1 with snack. 08/15/2023 Active hydrOXYzine HCl 25 MG Oral Tablet Take 1 Tablet by mouth daily. Prior to dialysis 08/15/2023 Active busPIRone HCl 5 MG Oral Tablet (Buspar)Indications: Anxiety Take 1 Tablet by mouth in the morning and 1 Tablet before bedtime. 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) 2.5 mg NEBULIZER PRN 04/24/2023 04/23/2024 Active Albuterol Sulfate (Proventil) (2.5 MG/3ML) 0.083% inhalation solution 2.5 mgIndications:Chronic hypoxemic respiratory failure (HCC),COPD, group C, by GOLD 2017 classification ([facility]),[place]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 States he was advised he was not a surgical candidate. Carotid stenosis, right 07/11/2017 History of stroke 07/11/2017 Overview: TIA vs lacunar stroke diagnosed on head CT in [place] Apr 2017. Follow up MRI [facility] no infarct. Anxiety 07/11/2017 HTN, goal below 140/90 08/02/2015 Coronary artery disease Dyslipidemia, goal LDL below 100 documented as of this encounter (statuses as of 08/23/2023) Resolved Problems Problem Noted Date Diagnosed Date [...] as of this encounter (statuses as of 08/23/2023) Immunizations Name Administration Dates Next Due COVID-19 [...] a day Alcohol Use Standard Drinks/Week Comments Not Currently 0 (1 standard drink = 0.6 oz pur e alcohol) rare PHQ-2 Answer Date Recorded PHQ Adult Total Score 0 05/20/2023 Hunger Vital Sign Answer Date Recorded Within the past 12 months, y ou worried that your food would run out before you got the money to buy more. Never true 05/20/19 24 Within the past 12 months, t he food you bought just didn't last and you didn't have money to get more. Never true 05/20/2023 Sex and Gender Information Value Date Recorded Sex Assigned at Not on file Gender Identity Not on file Sexual Orientation Not on file Job Start Date Occupation Industry Not on file Not on file Not on file documented as of this encounter Progress Notes * Ankit Castorena MD - 08/23/2023 9:55 AM EDT Justin Pinedo [phone] Justin Pinedo is a 83 year old male who presents for f/u to [facility] for right shoulder injury/pain. I saw him originally for this on 07/25/2023 . Telephone visit done today rather than in office visit with Justin A Khris History: Level of pain: reviewed and agree with Nursing Notes for HPI elements History on 07/25/2023 - R shoulder -Xray 07/23/23 -Pt c/o 8/10 pain today in r shoulder -Pt denies sx or injections to r shoulder -Pt accompanied by his today -Pt starting dialysis next week 07/30/23 Notes pain primarily in the lateral shoulder region points near the greater tuberosity However on occasion pain can radiate from the shoulder up to the neck and then the entire way down the arm to the hand. Denies paresthesias. Was given a prednisone prescription from his PCP which has helped some. Since that visit: Subacromial steroid injection I performed for him did not help at all. MRI was obtained of his shoulder and I had a lengthy telephone discussion with his daughter who is a spark plug assembler with our medical group on 08/15/2023. The following in bold reflects that conversation Update 08/15/2023: Telephone discussion with the patient's daughter Dr. Damaris Pinedo DO (pediatrics) who is a spark plug assembler at her [employer] office. Discussion was based on patient's shoulder pain and also MRI results. MRI showed: 08/13/2023: MRI of the right shoulder without contrast IMPRESSION 1. Multifocal tiny rim rent tears are seen at the conjoined insertion of the supraspinatus and infraspinatus tendons. 2. Partial-thickness bursal and articular sided tear is seen in the subscapularis tendon. 3. Intramuscular edema is seen in the supraspinatus, infraspinatus, and deltoid muscles. This is nonspecific and may represent muscle strain or denervation edema. 4. Acromioclavicular and glenohumeral joint osteoarthritis. Discussed patient's symptoms. Patient has constant pain that is at a low level but it can become extreme in his not related to motion. Pain can range up to a 9/10. The pain is also limiting his ability to have dialysis. Continues to have pain greatest in the lateral region of the shoulder. Also has developed significant decreased ability to abduct his shoulder. I have also discussed the patient's MRI with Dr. Marroquin ([facility]) who was not the interpreting radiologist for his MRI. He agrees with findings though. Traditional orthopedic type findings are relatively mild including the arthritis findings and small tears. Neither of us suspect they would be the origins for the majority of his symptoms. However finding 3, intermuscular edema within the supraspinatus, infraspinatus and deltoid could be responsible. Discussed potential neurogenic etiologies including parsonage Landrum syndrome or potential suprascapular nerve. However, suprascapular nerve is seen well on the MRI and there were no identifiable sites of entrapment. Also discussed if findings could be related to cervical spine pathology. Patient has C7 radiculopathy included in his problem list. And per our discussion findings seemed to be more potentially related to a peripheral nerve issue Discussed options with the patient's daughter including: Suprascapular nerve block through [facility], higher dose steroids (potentially for up to 2 weeks of high dosing 1 mg/kg followed by a taper is recommended in orthobullets but doubtful I would prescribe that high, possible 50 mg/day for 2 weeks then taper), and EMG Referred to Dr. Marroquin ([facility]) for fluoro guided suprascapular nervepatient EMG also ordered Also discussed possible oral steroids with Dr. Rosy Patel MD (nephrology) who the patients sees for ESRD and oral steroid use would be okay and will consider them in future. Note: Patient was recently on Medrol Dosepak from myself (prescribed 07/27/2023) that did not help. He then received 40 mg per day x5 days of prednisone from his PCP Dr. Ulysses WALL and that did help. That was prescribed 08/07/2023 Since the conversation on 08/15/2023 patient received Fluoroscopic-guided perineural injection of the right suprascapular nerve (A mixture 80 mg methylprednisolone (80 mg/mL) and 3 mL 0.2% ropivacaine ) from Dr. Marroquin ([facility]). He reports that injection has 100% resolved his pain. He is currently very pleased. ROS: ROS per HPI otherwise non-contributory Past Medical History: Diagnosis Date Basal cell carcinoma (BCC) of skin of face 07/11/2017 CKD (chronic kidney disease), stage IV (HCC) COPD (chronic obstructive pulmonary disease) (HCC) Coronary artery disease Dyslipidemia, goal LDL below 100 Microalbuminuria Myocardial infarct, old 1998 stent in [place]--Dr. Marques Non-Q wave myocardial infarction of anterolateral wall ([facility]) 1998 Pneumonia of right middle lobe due to infectious organism 01/16/2018 Pulmonary embolism (HCC) Family History Problem Relation Name Age of Onset Heart failure Mother CHF, age 85 Colon cancer Father 58 Prostate cancer Brother Bone cancer Brother Social History Socioeconomic History Marital status: Spouse name: Not on file Number of children: Not on file Years of education: Not on file Highest education level: Not on file Occupational History Not on file Tobacco Use Smoking status: Former Types: Cigars Smokeless tobacco: Never Tobacco comments: one cigar a day Vaping Use Vaping status: Never Used Substance and Sexual Activity Alcohol use: Not Currently Comment: rare Drug use: No Sexual activity: Not on file Other Topics Concern Not on file 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 Chronic glenoid deformity. Moderate acromioclavicular and glenohumeral degenerative changes. Suspect chronic rotator cuff arthropathy. IMPRESSION IMPRESSION 1. No acute osseous finding Assessment and Plan: 1) Acute right shoulder pain Suspect subacromial bursitis /rotator cuff tendinosis Patient strongly desired to try steroid injection given he is scheduled for dialysis next week and with his current shoulder pain does not think he would be able to tolerate dialysis. I do think this is reasonable to try for him Subacromial steroid injection performed today 07/25/2023 with ultrasound guidance - note: Patient was re-evaluated several minutes following the injection and noted an improvement in pain Note: Patient's daughter is a spark plug assembler (Dr. Damaris Pinedo DO (pediatrics)) [facility] Telephone or in office follow-up in 3-4 weeks Note: I also have some concern for potential cervical etiology to some of his symptoms. On occasionthe pain will radiate from the neck the entire way to the hand. May need to evaluate cervical spinein the future. Medical history includes C7 radiculopathy. I do not see recent imaging though. MRI showed: 08/13/2023: MRI of the right shoulder without contrast IMPRESSION 1. Multifocal tiny rim rent tears are seen at the conjoined insertion of the supraspinatus and infraspinatus tendons. 2. Partial-thickness bursal and articular sided tear is seen in the subscapularis tendon. 3. Intramuscular edema is seen in the supraspinatus, infraspinatus, and deltoid muscles. This is nonspecific and may represent muscle strain or denervation edema. 4. Acromioclavicular and glenohumeral joint osteoarthritis. Discussed patient's symptoms. Patient has constant pain that is at a low level but it can become extreme in his not related to motion. Pain can range up to a 9/10. The pain is also limiting his ability to have dialysis. Continues to have pain greatest in the lateral region of the shoulder. Also has developed significant decreased ability to abduct his shoulder. I have also discussed the patient's MRI with Dr. Marroquin ([facility]) who was not the interpreting radiologist for his MRI. He agrees with findings though. Traditional orthopedic type findings are relatively mild including the arthritis findings and small tears. Neither of us suspect they would be the origins for the majority of his symptoms. However finding 3, intermuscular edema within the supraspinatus, infraspinatus and deltoid could be responsible. Discussed potential neurogenic etiologies including parsonage Landrum syndrome or potential suprascapular nerve. However, suprascapular nerve is seen well on the MRI and there were no identifiable sites of entrapment. Also discussed if findings could be related to cervical spine pathology. Patient has C7 radiculopathy included in his problem list. And per our discussion findings seemed to be more potentially related to a peripheral nerve issue Since the conversation on 08/15/2023 patient received Fluoroscopic-guided perineural injection of the right suprascapular nerve (A mixture 80 mg methylprednisolone (80 mg/mL) and 3 mL 0.2% ropivacaine ) from Dr. Marroquin ([facility]). He reports that injection has 100% resolved his pain. He is currently very pleased. EMG is still pending and I recommended he go ahead with that study Further discussions will be based off of EMG results or symptom return Patient aware he can contact me or have his daughter Dr. Damaris Pinedo DO (pediatrics) who has apediatrician with our group contact me at any time. After connecting to the patient via telephone, the patient was identified by name and date of . Patient was then informed that this was a telephone call only visit. The patient agreed to participate. Visit Disposition: Routine follow-up Total call duration was 4 minutes. Ankit Castorena MD Primary Care Sports Medicine Orthopaedics [address] [phone] documented in this encounter Plan of Treatment Upcoming Encounters Date Type Department Care Team (Late st Contact Info) Description 09/16/2023 1:25 PM EDT NeuroDiagnostic Study Neurophysiology [facility] [address] [place] [address] Miguel Dan MD [address] [place] [address] 10/02/2023 9:30 AM EDT Office Visit Palliative Medicine [facility] [address] [place] [phone] Brielle Schmidt MD [address] [place] [address] [place] [address] 02/10/2024 1:00 PM EST Imaging Radiology [address] [facility] [place] [address] 02/25/2024 4:00 PM EST Office Visit Urology, [facility] [address] [facility] [place] [id number] Cameron Romeo MD [address] [place] [address] [place] [address] 02/26/2024 1:40 PM EST Office Visit Family Medicine [address] [place] [phone] Jody Arora MD [address] [place] [address] [place] [address] 04/09/2024 2:20 PM EST Office Visit Nephrology [address] [place] [address] Rosy Patel MD [address] [facility] [place] [address] Health Maintenance Due Date Last Done Comments Alpha-1 Antitrypsin 1958 *COPD SEVERITY VERIFIED BY PFT 07/16/2020 Hepatitis B (3 of 3 - 19+ 3-dose series) 03/20/2023 01/23/2023, 01/08/2018 COVID-19 Vaccine (2022- season) 2023 01/03/2023, 01/10/2021, 05/24/2020, Additional history exists GFR 01/23/2024 07/23/2023, 06/17, 07/04/2023, Additional history exists Depression Screening 05/19/2024 05/20/2023 Hgb 06/19/2024 06/20/2023, 02/15, 12/24/2022, Additional history exists Albumin/Creatinine Ratio 07/09/2024 024, 08/08/2022, 12/07/2021, Additional history exists PTH 07/09/2024 07/10/2023, 11/16, 07/12/2022, Additional history exists Phosphate 07/09/2024 07/10/2023, 03/18, 03/19/2023, Additional history exists Nephrology Referral 07/14/2024 07/15/2023 O2 ASSESSMENT COMPLETED IN PAST YEAR FOR COPD 07/22/2024 07/23/2023 DTaP,Tdap,and Td Vaccines (2 - Td or Tdap) 10/24/2028 10/24/2018 Pneumococcal Vaccine: 65+ Years Completed 01/16/2018, 01/16/2018, 02/09/2015 Zoster Vaccines Completed 12/11/2019, 10/09/2019 Influenza Vaccine (FLU shot) Completed 10/2022, 12/07/2021, 12/05/2020, Additional history exists GARDASIL-HPV IMMUNIZATION SERIES Aged Out No longer eligible based on patient's age to complete this topic MENINGOCOCCAL (MENACTRA/MENVEO) Aged Out No longer eligible based on patient's age to complete this topic documented as of this encounter Medical Devices Not on filedocumented as of this encounter Visit Diagnoses Diagnosis Acute pain of right shoulder- Primary documented in this encounter Care Teams [employer]er Relationship Specialty Start Date End Date Jody Arora MD [address] [place] [address] [place] [id number] PCP - General Family Medicine 11/21/21 documented as of this encounter
--- OUTSIDE RECORDS SUMMARY | 2023-08-27 01:16 | External Medical Summary | Summary of Care ---
Author Name Unknown Organization [facility] Address [address] [place] [address] Phone [phone] Care Team Providers Care [employer] Di[employer] Gr[employer] Name Role Phone Jody Arora MD Primary Care Provide r Reason for Visit * Reason Onset Date Comments Appointment 08/15/2023 FLUORO GUIDED PIRATION BIOPSY Encounter Details Date Type Department Care Team (Late st Contact Info) Description 08/15/2023 Telephone [address] [phone] Ankit Castorena MD [address] [place] [address] Appointment (FLUORO GUIDED ASPIRATION BIOP... Allergies No known active allergiesdocumented as of this encounter (statuses as of 08/19/2023) Medications Medication Sig Dispensed Refills Start Date [...] C, by GOLD 2017 classification ([facility]) INHALE 1 DOSE BY MOUTH IN THE MORNING AND 1 AT BEDTIME 60 Each 05/28/2023 Active Ventolin HFA 108 (90 Base) MCG/ACT Inhalation Aerosol SolutionIndications: COPD, group D, by GOLD 2017 classification ([facility]) Inhale 2 Puffs by mouth every 4 hours as needed for Wheezing. 18 g 2 05/28/2023 Active Albuterol Sulfate (2.5 MG/3ML) 0.083% Inhalation Nebulization Solution (Proventil)Indicatio ns:COPD, group D, by GOLD 2017 classification ([facility]) Inhale 1 Vial via nebulizer every 4 [...] mouth daily. Prior to dialysis 08/15/2023 Active Hospital, Clinic, or Other Facility Administered Medication Ordered Dose Route Frequency Start Date End Date Status Albuterol Sulfate (Proventil) (5 MG/ML) 0.5% *conc* inhalation solution 2.5 mgIndications:Chronic hypoxemic respiratory failure (HCC),COPD, group C, by GOLD 2017 classification ([facility]),[place] miners' lung ([facility]) 2.5 mg NEBULIZER PRN 04/24/2023 04/23/2024 Active Albuterol Sulfate (Proventil) (2.5 MG/3ML) 0.083% inhalation solution 2.5 mgIndications:Chronic hypoxemic respiratory failure (HCC),COPD, group C, by GOLD 2017 classification (HCC),[place]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 Follow up MRI [facility] no infarct. Anxiety 07/11/2017 HTN, goal below 140/90 08/02/2015 Coronary artery disease Dyslipidemia, goal LDL below 100 documented as of this encounter (statuses as of 08/19/2023) Resolved Problems Problem Noted Date Diagnosed Date [...] as of this encounter (statuses as of 08/19/2023) Immunizations Name Administration Dates Next Due COVID-19 [...] Miscellaneous Notes * Telephone Encounter - Madison Olguin OSA - 08/15/2023 3:14 PM EDT Patient scheduled 08/16/23. * Telephone Encounter - Venu Dempsey OSA - 08/15/2023 1:32 PM EDT Referred to Dr. Marroquin ([facility] radiology [facility]) for fluoro guided suprascapular n injection Please contact pt and assist in scheduling. documented in this encounter Plan of Treatment Upcoming Encounters Date Type Department Care Team (Late st Contact Info) Description 08/21/2023 1:00 PM EDT Office Visit Palliative Medicine [facility] [address] [place] [phone] Brielle Schmidt MD [address] [place] [address] [place] [id number] 08/22/2023 3:30 PM EDT Telemedicine Orthopaedics [address] [phone] Ankit Castorena MD [address] [place] [address] 09/16/2023 1:25 PM EDT NeuroDiagnostic Study Neurophysiology [facility] [address] [place] [address] Miguel Dan MD [address] [place] [address] 02/10/2024 1:00 PM EST Imaging Radiology [address] [place] [address] 02/25/2024 4:00 PM EST Office Visit Urology, [facility] [address] [place] [address] Cameron Romeo MD [address] [place] [address] [place] [id number] 02/26/2024 1:40 PM EST Office Visit Family Medicine [address] [phone] Jody Arora MD [address] [place] [address] [place] [id number] 04/09/2024 2:20 PM EST Office Visit Nephrology [address] [place], [place] [address] Rosy Patel MD [address] [facility] [place], [place] [address] Health Maintenance Due Date Last Done Comments [...] filedocumented as of this encounter Care Teams [employer] Gr[employer] Relationship Specialty Start Date End Date Jody Arora MD [address] [place] [address] [place] [phone] PCP - General Family Medicine 11/21/21 documented as of this encounter
--- OUTSIDE RECORDS SUMMARY | 2023-08-27 01:17 | External Medical Summary | Summary of Care ---
Author Name Unknown Organization [facility] Address [address] [place] [address] Phone [phone] Care Team Providers Care Videographer Name Role Phone Jody Arora MD Primary Care Provide r Reason for Referral * Precert (Within 10 days (routine)) - Authorized Specialty Diagnoses / Procedures Referred By Contjesika t Referred To Contact Radiology Diagnoses Acute pain of right shoulder Procedures MRI SHOULDER RIGHT WO CONTRAST Brianna Delcid MD [address] [facility] [place] [address] Referral ID Status Reason Start Date Expiration Date V isits Requested Visits Authorized [id number] Authorized 07/27/2023 999 999 Reason for Visit * Reason Comments NEW PATIENT Pain R shoulder * Evaluate & Treat - Unlimited Visits (Within 30 days (routine)) - Authorized Specialty Diagnoses / Procedures Referred By Adam robertson Referred To Contact Orthopaedic Surgery / Orthopedics Diagnoses Pain in joint of right shoulder Jody Arora MD [address] [place] [address] [place] [address] Referral ID Status Reason Start Date Expiration Date Visits Requested Visits Authorized [id number] Authorized Specialty Services Required 07/23/2023 999 999 Encounter Details Date Type Department Care Team (Late st Contact Info) Description 07/25/2023 1:30 PM EDT Office Visit Orthopaedics [address] [phone] Brianna Delcid MD [address] [place] [id number] Pain in muscle of shoulder*; Acute pain of right shoulder Allergies No known active allergiesdocumented as of this encounter (statuses as of 08/15/2023) Medications Medication Sig Dispensed Refills Start Date End Date Status nitroglycerin (NITROSTAT) 0.4 MG SUBL 1 Tablet. 08/19/2018 Active Melatonin 10 MG Oral Capsule Take 1 Capsule by mouth at bedtime. Active Ipratropium-Albutero l 0.5-2.5 (3) MG/3ML Inhalation Solution (Duoneb)Indications: Chronic hypoxemic respiratory failure (HCC),COPD, group C, by GOLD 2017 classification ([facility]) Inhale 3 mL via nebulizer every [...] OPD, group C, by GOLD 2017 classification ([facility]) INHALE 1 DOSE BY MOUTH IN THE MORNING AND 1 AT BEDTIME 60 Each 05/28/2023 Active Ventolin HFA 108 (90 Base) MCG/ACT Inhalation Aerosol SolutionIndications: COPD, group D, by GOLD 2017 classification ([facility]) Inhale 2 Puffs by mouth every 4 hours as needed for Wheezing. 18 g 2 05/28/2023 Active Albuterol Sulfate (2.5 MG/3ML) 0.083% Inhalation Nebulization Solution (Proventil)Indicatio ns:COPD, group D, by GOLD 2017 classification ([facility]) Inhale 1 Vial via nebulizer every 4 hours as needed for Wheezing. 100 mL 1 05/28/2023 Active Albuterol Sulfate (2.5 MG/3ML) 0.083% Inhalation Nebulization Solution (Proventil)Indicatio ns:Pneumonia due to COVID-19 virus Inhale 1 Vial via nebulizer every 6 hours as needed for Wheezing. 360 mL 06/20/2023 Active Torsemide 20 MG Oral Tablet (Demadex)Indications :ESRD needing dialysis ([facility]) Take 4 Tablets by mouth 2 times a day in the morning and at noon. 120 Tablet 5 07/05/2023 Active Carvedilol 3.125 MG Oral Tablet (Coreg) Take 1 tablet by mouth twice daily with food 180 Tablet 1 07/18/2023 Active methylPREDNISolone 4 MG Oral Tablet Therapy Pack (Medrol Dosepack) follow package directions 21 Tablet 07/27/2023 Active predniSONE 20 MG Oral Tablet (Deltasone)Indicatio ns:Pain in joint of right shoulder Take 2 Tablets by mouth in the morning for 5 days. 10 Tablet 07/23/2023 Hospital, Clinic, or Other Facility Administered Medication Ordered Dose Route Frequency Start Date End Date Status Albuterol Sulfate (Proventil) (5 MG/ML) 0.5% *conc* inhalation solution 2.5 mgIndications:Chronic hypoxemic respiratory failure (HCC),COPD, group C, by GOLD 2017 classification ([facility]),Divide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) 2.5 mg NEBULIZER PRN 04/24/2023 04/23/2024 Active Albuterol Sulfate (Proventil) (2.5 MG/3ML) 0.083% inhalation solution 2.5 mgIndications:Chronic hypoxemic respiratory failure (HCC),COPD, group C, by GOLD 2017 classification ([facility]),Divide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) 2.5 mg NEBULIZER PRN 04/24/2023 04/23/2024 Active Triamcinolone Acetonide (Kenalog) 40 MG/ML inj 40 mgIndications:Acute pain of right shoulder 40 mg IM ONCE 07/25/2023 07/25/2023 En ded lidocaine 1 % inj 100 mgIndications:Acute pain of right shoulder 100 mg IX ONCE 07/25/2023 07/25/2023 En ded documented as of this encounter (statuses as of 08/15/2023) Active Problems Problem Noted Date Diagnosed Date COPD, group D, by GOLD 2017 classification 04/29 Overview: Per COPD GOLD Classification 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/[place] per patient "kidney cancer". States he was advised he was not a surgical candidate. Carotid stenosis, right 07/11/2017 History of stroke 07/11/2017 Overview: TIA vs lacunar stroke diagnosed on head CT in [place] Apr 2017. Follow up MRI [facility] no infarct. Anxiety 07/11/2017 HTN, goal below 140/90 08/02/2015 Coronary artery disease Dyslipidemia, goal LDL below 100 documented as of this encounter (statuses as of 08/15/2023) Resolved Problems Problem Noted Date Diagnosed Date [...] as of this encounter (statuses as of 08/15/2023) Immunizations Name Administration Dates Next Due COVID-19 [...] as of this encounter Progress Notes * Brianna Delcid MD - 07/25/2023 1:45 PM EDT Justin Kinney [phone] Justin Kinney is a 83 year old male who presents for consultation to [facility] for right shoulder injury/pain. Consult requested by Jody Arora MD. Justin Kinney is here with his/her History: Level of pain: reviewed and agree with Nursing Notes for HPI elements History - R shoulder -Xray 07/23/23 -Pt c/o 10/25 pain today in r shoulder -Pt denies [...] from his PCP which has helped some. ROS: ROS per HPI otherwise non-contributory Past Medical History: Diagnosis Date Basal cell carcinoma (BCC) of skin of face 07/11/2017 CKD (chronic kidney disease), stage IV (HCC) COPD (chronic obstructive pulmonary disease) (HCC) Coronary artery disease Dyslipidemia, goal LDL below 100 Microalbuminuria Myocardial infarct, old 1998 stent in [place]--Dr. 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 [employer] Social Determinants of Health Financial Resource [...] on file Housing Stability: Not on file Physical Exam Constitutional: Generally well-nourished and in no acute distress Psychiatric: Mood and Affect normal Eyes: EOMI Respiratory: Normal respiratory effort with regular rate and rhythm Cardiovascular: No edema in the affected extremity (s) Shoulder Exam Inspection: Unremarkable Palpation: Tender palpate subacromial space and at the greater tuberosity ROM: Forward Flexion (normal 180): L - 170, R - 160 Abduction (normal 180): L - 170, R - 160 Internal Rotation: L5 BL Strength: Forward flexion: L - 5/5, R - 5/5 Abduction: L - 5/5, R - 5/5 External Rotation: L - 5/5, R - 5/5 Internal Rotation: L - 5/5, R - 5/5 Positive impingement testing on the right Radiology: 07/23/2023: Four view x-ray of the [...] in pain Note: Patient's daughter is a animal assisted therapist (Dr. Damaris Kinney DO (pediatrics)) [facility] Telephone or in office follow-up in 3-4 weeks Note: I also have some concern for potential cervical etiology to some of his symptoms. On occasionthe pain will radiate from the neck the entire way to the hand. May need to evaluate cervical spinein the future. Medical history includes C7 radiculopathy. I do not see recent imaging though. Procedure note (shoulder subacromial bursa injection) on right: Injection completed with the patient seated Time out: Prior to injection, a time out was called to confirm the administration of appropriate medicine, patient name, procedure and confirm to the best of our ability and knowledge the presence of any necessary risks and benefits. Patient verbalizes understanding. Ultrasound utilized to guide injection Ultrasound required due to need to visualize specific bursa and inject in this specific location. Posteriolateral approach used. Sterile techinique applied. Skin sterilized with chlorhexidine and cleaned with alcohol swab. Subacromial bursa injected using 1.5 inch, 22 gauge needle. Injected with 2 ml lidocaine 1%, triamcinolone acetonide 40mg/ml 1 ml. Patient tolerated procedure with no significant bleeding or adverse reaction. Patient instructed to call or return to clinic for fever or warmth and redness at injection site for potential infection. Patient also advised as to potential for steroid flare reaction including increased pain and redness at injection site which should be treated with ice and resolve within 24 hours. Update 08/15/2023: Telephone discussion with the patient's daughter Dr. Damaris Kinney DO (pediatrics) who is a animal assisted therapist at her [facility] [employer] office. Discussion was based on patient's shoulder [...] discussed the patient's MRI with Dr. Marroquin ([facility] radiology [facility]) who was not the interpreting radiologist for [...] patient's daughter including: Suprascapular nerve block through [facility] Radiology, higher dose steroids (potentially for up to 2 weeks of high dosing 1 mg/kg followed by a taper is recommended in orthobullets but doubtful I would prescribe that high, possible 50 mg/day for 2 weeks then taper), and EMG Referred to Dr. Marroquin ([facility] radiology [facility]) for fluoro guided suprascapular nervepatient EMG also [...] that did help. That was prescribed 08/07/2023 Brianna Delcid MD Primary Care Sports Medicine Orthopaedics [address] [phone] documented in this encounter Nursing Notes * Ann-Marie Gonzalez LPN - 07/25/2023 1:27 PM EDT -NEW Pt -R shoulder -Xray 07/23/23 -Pt c/o 10/25 pain today in r shoulder -Pt denies sx or injections to r shoulder -Pt accompanied by his today -Pt starting dialysis next week 07/30/23 Najma Steinberg LPN documented in this encounter Miscellaneous Notes * Addendum Note - Brianna Delcid MD - 08/15/2023 12:45 PM EDT Addended by: BRIANNA DELCID on: 08/15/2023 12:45 PM Modules accepted: Orders * Addendum Note - Brianna Delcid MD - 07/27/2023 9:22 PM EDT Addended by: BRIANNA DELCID on: 07/27/2023 09:22 PM Modules accepted: Orders documented in this encounter Plan of Treatment Upcoming Encounters Date Type Department Care Team (Late st Contact Info) Description 08/20/2023 12:30 PM EDT Cardiac Studies Cardiac Studies [address] [place] [address] 08/21/2023 1:00 PM EDT Office Visit Palliative Medicine [facility] [address] [place] [phone] Brielle Schmidt MD [address] [place] [address] [place] [address] 08/22/2023 3:30 PM EDT Telemedicine Orthopaedics [address] [place] [phone] Brianna Delcid MD [address] [place] [address] 02/10/2024 1:00 PM EST Imaging Radiology [address] [facility] [place] [address] 02/25/2024 4:00 PM EST Office Visit Urology, [facility] [address] [facility] [place] [address] Cameron Romeo MD [address] [place] [address] [place] [address] 02/26/2024 1:40 PM EST Office Visit Family Medicine [address] [place] [phone] Jody Arora MD [address] [place] [address] [place] [address] 04/09/2024 2:20 PM EST Office Visit Nephrology [address] [place] [address] Rosy Patel MD [address] [facility] [address] Scheduled Orders Name Type Priority Associated Diagnoses Orde r Schedule FLUORO GUIDED ASPIRATION BIOPSY Medical Imaging Routine Acute pain of right shoulder Ordered: 08/15/2023 Health Maintenance Due Date Last Done Comments Alpha-1 Antitrypsin 1958 *COPD SEVERITY VERIFIED BY PFT 07/16/2020 Hepatitis B (3 of 3 - 19+ 3-dose series) 03/20/2023 01/23/2023, 01/08/2018 COVID-19 Vaccine ( season) 2023 01/03/2023, 01/10/2021, 05/24/2020, Additional history [...] Procedure Name Priority Date/Time Associated Diagnosis Comments POINT OF CARE US MAJOR JOINT INJECTION, ORTHO Routine 07/25/2023 9:43 PM EDT Acute pain of right shoulder documented in this encounter Results * MRI SHOULDER RIGHT WO CONTRAST (08/13/2023 8:25 PM EDT) Anatomical Region Laterality Modality Shoulder, Upper Extremity Magnet ic Resonance 08/14/2023 11:0 1 AM EDT Impressions 08/14/2023 10:59 AM EDT IMPRESSION 1. Multifocal tiny rim rent tears are seen at the conjoined insertion of the supraspinatus and infraspinatus tendons. 2. Partial-thickness bursal and articular sided tear is seen in the subscapularis tendon. 3. Intramuscular edema is seen in the supraspinatus, infraspinatus, and deltoid muscles. This is nonspecific and may represent muscle strain or denervation edema. 4. Acromioclavicular and glenohumeral joint osteoarthritis. Narrative 08/14/2023 10:59 AM EDT EXAM MR right shoulder without contrast-08/13/2023 8:25 pm HISTORY Shoulder pain; Cancer or mass; No shoulder x-ray result available TECHNIQUE Multi-planar, multi-sequence MR imaging of the right shoulder was performed without contrast. COMPARISON Right shoulder radiographs dating 07/23/2023. FINDINGS Joint Fluid and SASD Bursa: No joint effusion. Minimal fluid is noted in the subacromial subdeltoid bursa. Coracoacromial Arch: Acromioclavicular joint is normally aligned with osteoarthritic changes demonstrated with marginal osteophytes, joint space narrowing and irregularity and small joint effusion. No os acromiale. Rotator Cuff: Multifocal rim rent tear is seen at the conjoined insertion of the supraspinatus and infraspinatus tendons. Partial-thickness bursal and articular sided tear is seen in the subscapularis tendon. Intramuscular edema is seen in the supraspinatus and infraspinatus. Generalized mild fatty infiltration of the rotator cuff muscles. Long Head Biceps: Limited assessment the long head biceps tendon due to patient motion artifact. No high-grade tear is seen. There is medial subluxation of the tendon. GH Joint/Labrum/Capsule: Superior labral degeneration and tear. Bone: Glenohumeral joint osteoarthritis with marginal osteophytes. No acute fracture. No suspicious marrow replacing lesion. Soft Tissues: Intramuscular edema is seen within the anterior and lateral aspect of the deltoid muscle. Perimuscular edema is seen at the posterior aspect of the deltoid muscle. Neurovascular: WNL Procedure Note Isaac Lance MD - 08/14/2023 EXAM MR right shoulder without contrast-08/13/2023 8:25 pm HISTORY Shoulder pain; Cancer or mass; No shoulder x-ray result available TECHNIQUE Multi-planar, multi-sequence MR imaging of the right shoulder wasperformed without contrast. COMPARISON Right shoulder radiographs dating 07/23/2023. FINDINGS Joint Fluid and SASD Bursa: No joint effusion. Minimal fluid is noted inthe subacromial subdeltoid bursa. Coracoacromial Arch: Acromioclavicular joint is normally aligned withosteoarthritic changes demonstrated with marginal osteophytes, joint spacenarrowing and irregularity and small joint effusion. No os acromiale. Rotator Cuff: Multifocal rim rent tear is seen at the conjoined insertionof the supraspinatus and infraspinatus tendons. Partial-thickness bursaland articular sided tear is seen in the subscapularis tendon.Intramuscular edema is seen in the supraspinatus and infraspinatus.Generalized mild fatty infiltration of the rotator cuff muscles. Long Head Biceps: Limited assessment the long head biceps tendon due topatient motion artifact. No high-grade tear is seen. There is medialsubluxation of the tendon. GH Joint/Labrum/Capsule: Superior labral degeneration and tear. Bone: Glenohumeral joint osteoarthritis with marginal osteophytes. Noacute fracture. No suspicious marrow replacing lesion. Soft Tissues: Intramuscular edema is seen within the anterior and lateralaspect of the deltoid muscle. Perimuscular edema is seen at the posterioraspect of the deltoid muscle. Neurovascular: WNL IMPRESSION IMPRESSION 1. Multifocal tiny rim rent tears are seen at the conjoined insertion ofthe supraspinatus and infraspinatus tendons. 2. Partial-thickness bursal and articular sided tear is seen in thesubscapularis tendon. 3. Intramuscular edema is seen in the supraspinatus, infraspinatus, anddeltoid muscles. This is nonspecific and may represent muscle strain ordenervation edema. 4. Acromioclavicular and glenohumeral joint osteoarthritis. Brianna Delcid MD RAD MRI-MRA * POINT OF CARE US MAJOR JOINT INJECTION, ORTHO (07/25/2023 9:43 PM EDT) Anatomical Region Laterality Modality Musculoskeletal Radiographic [place] ging 07/25/2023 9:43 PM EDT Narrative 07/26/2023 10:48 AM EDT Patient Name: JUSTIN KINNEY : 1940 (83y) Male Performing Provider: Brianna Delcid (digitally signed July 26, 2023 10:48 EDT) Attending: Brianna Delcid (digitally signed July 26, 2023 10:48 EDT) [Impression] : Procedure note (shoulder subacromial bursa injection) on right: Injection completed with the patient seated Time out:Prior to injection, a time out was called to confirm the administration of appropriate medicine, patient name, procedure and confirm to the best of our ability and knowledge the presence of any necessary risks and benefits. Patient verbalizes understanding. Ultrasound utilized to guide injectionUltrasound required due to need to visualize specific bursa and inject in this specific location. Posteriolateral approach used. Sterile techinique applied. Skin sterilized with chlorhexidine and cleaned with alcohol swab. Subacromial bursa injected using 1.5 inch, 22 gauge needle. Injected with 2 ml lidocaine 1%, triamcinolone acetonide 40mg/ml 1 ml. Patient tolerated procedure with no significant bleeding or adverse reaction. Patient instructed to call or return to clinic for fever or warmth and redness at injection site for potential infection. Patient also advised as to potential for steroid flare reaction including increased pain and redness at injection site which should be treated with ice and resolve within 24 hours. Procedure Note Brianna Delcid MD - 07/26/2023 Patient Name: JUSTIN KINNEY : 1940 (83y) Male Performing Provider: Brianna Delcid (digitally signed July 26, 2023 10:48EDT) Attending: Brianna Delcid (digitally signed July 26, 2023 10:48 EDT) [Impression] : Procedure note (shoulder subacromial bursa injection) onright: Injection completed with the patient seated Time out:Prior toinjection, a time out was called to confirm the administration ofappropriate medicine, patient name, procedure and confirm to the best ofour ability and knowledge the presence of any necessary risks andbenefits. Patient verbalizes understanding. Ultrasound utilized to guideinjectionUltrasound required due to need to visualize specific bursa andinject in this specific location. Posteriolateral approach used. Steriletechinique applied. Skin sterilized with chlorhexidine and cleaned withalcohol swab. Subacromial bursa injected using 1.5 inch, 22 gauge needle.Injected with 2 ml lidocaine 1%, triamcinolone acetonide 40mg/ml 1 ml.Patient tolerated procedure with no significant bleeding or adversereaction. Patient instructed to call or return to clinic for fever orwarmth and redness at injection site for potential infection. Patient also advised as to potential for steroid flare reaction includingincreased pain and redness at injection site which should be treated withice and resolve within 24 hours. Brianna Delcid MD RAD ULTRASO UND documented in this encounter Visit Diagnoses Diagnosis Pain in muscle of shoulder- Primary Acute pain of right shoulder documented in this encounter Administered Medications Inactive Administered Medications - up to 3 most recent administrations Medication Order MAR Action Action Date Dose Rate Site lidocaine 1 % inj 100 mg 100 mg (10 mL), Intra-Articular, ONCE, On Violet 07/25/23 at 1430, For 1 dose Given 07/25/2023 2:08 PM EDT 100 mg Shoulder Right Triamcinolone Acetonide (Kenalog) 40 MG/ML inj 40 mg 40 mg, Intramuscular, ONCE, On Violet 07/25/23 at 1430, For 1 dose Given 07/25/2023 2:08 PM EDT 40 mg Shoulder Right documented in this encounter Care Teams Videographer Relationship Specialty Start Date End Date Jody Arora MD [address] [place] [address] [place] [id number] PCP - General Family Medicine 11/21/21 documented as of this encounter
--- OUTSIDE RECORDS SUMMARY | 2023-08-27 01:17 | External Medical Summary | Summary of Care ---
Author Name Unknown Organization [facility] Address [address] [place] [address] Phone [phone] Care Team Providers Care Deputy Director Of Public Works Name Role Phone Jody Arora MD Primary Care Provide r Reason for Visit * Reason Onset Date Comments Test Results 08/15/2023 MRI Encounter Details Date Type Department Care Team (Late st Contact Info) Description 08/15/2023 Telephone Access Center, [place] [address] [facility] *DO NOT REMOVE THIS DEPARTMENT* [place] [phone] Services, Scheduling [address] [place] [address] Test Results (MRI ) Allergies No known active allergiesdocumented as [...] by GOLD 2017 classification ([facility]) INHALE 1 DOSE BY MOUTH IN THE MORNING AND 1 AT BEDTIME 60 Each 05/28/2023 Active Ventolin HFA 108 (90 Base) MCG/ACT Inhalation Aerosol SolutionIndications: COPD, group D, by GOLD 2017 classification ([facility]) Inhale 2 Puffs by mouth every 4 hours as needed for Wheezing. 18 g 2 05/28/2023 Active Albuterol Sulfate (2.5 MG/3ML) 0.083% Inhalation Nebulization Solution (Proventil)Indicatio ns:COPD, group D, by GOLD 2017 classification ([facility]) Inhale 1 Vial via nebulizer every [...] by GOLD 2017 classification ([facility]),[place]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) 2.5 mg NEBULIZER PRN 04/24/2023 04/23/2024 Active Albuterol Sulfate (Proventil) (2.5 MG/3ML) 0.083% inhalation solution 2.5 mgIndications:Chronic hypoxemic respiratory failure (HCC),COPD, group C, by GOLD 2017 classification (HCC),[place]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) 2.5 mg NEBULIZER PRN 04/24/2023 04/23/2024 Active documented as of this encounter (statuses as of 08/15/2023) Active Problems Problem Noted Date Diagnosed Date COPD, group D, by GOLD 2017 classification 04/29 Overview: Per COPD GOLD Classification [place] 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 States he was advised he was not a surgical candidate. Carotid stenosis, right 07/11/2017 History of stroke 07/11/2017 Overview: TIA vs lacunar stroke diagnosed on head CT in [place] Apr 2017. Follow up MRI [facility] no infarct. Anxiety 07/11/2017 HTN, goal [...] Miscellaneous Notes * Telephone Encounter - Mary Burch MED ASSIST - 08/15/2023 2:52 PM EDT Please see previous TE about this. * Telephone Encounter - Diane Cool OSA - 08/15/2023 2:41 PM EDT Who is Requesting Test Results: Patient Primary Care Provider : Jody Arora MD Tests Results Requested : MRI Date of Test : 08.13.23 Location of Test: [facility] Ordering Provider: Dr. Castorena Patient has been made aware that the turnaround time for test results are typically as follows: Laboratory results = within 2-3 days ([facility]), 3-5 days (Non-[facility], ie. [facility]) Urine Cultures = within 2-3 days depending on growth within the culture Pathology results (biopsy results/PAP) = 1-2 weeks Radiology results = about 1 week Cologuard results = within 2 weeks from the shipment date COVID testing = about 24 hours documented in this encounter Plan of Treatment Upcoming Encounters Date Type Department Care Team (Late st Contact Info) Description 08/16/2023 9:30 AM EDT Imaging Radiology [address] 132 [facility] [place] [address] 08/20/2023 12:30 PM EDT Cardiac Studies Cardiac Studies [address] [place] [address] 08/21/2023 1:00 PM EDT Office Visit Palliative Medicine [facility] [address] [place] [phone] Brielle Schmidt MD [address] [place] [address] [place] [address] 08/22/2023 3:30 PM EDT Telemedicine Orthopaedics [address] [phone] Ankit Castorena MD 132 [facility] [place] [address] 02/10/2024 1:00 PM EST Imaging Radiology [address] 132 [facility] [place] [address] 02/25/2024 4:00 PM EST Office Visit [facility]rology, [facility] [place] [address] Cameron Romeo MD [address] [place] [address] [place] [address] 02/26/2024 1:40 PM EST Office Visit Family Medicine [address] [place] [phone] Jody Arora MD [address] [place] [address] [place] [address] 04/09/2024 2:20 PM EST Office Visit Nephrology [address] [place] [address] Rosy Patel MD 200 [facility] [place] [address] Health Maintenance Due Date Last Done Comments [...] filedocumented as of this encounter Care Teams Deputy Director Of Public Works Relationship Specialty Start Date End Date Jody Arora MD [address] [place] [address] [place] [address] PCP - General Family Medicine 11/21/21 documented as of this encounter
--- OUTSIDE RECORDS SUMMARY | 2023-08-27 01:17 | External Medical Summary | Summary of Care ---
Author Name Unknown Organization [facility] Address [address] [place] [address] Phone [phone] Care Team Providers Care Associate Entertainment Editor Name Role Phone Jody Arora MD Primary Care Provide r Reason for Visit * Reason Onset Date Comments Medication Update 08/15/2023 Medical Records Request 08/15/2023 Encounter Details Date Type Department Care Team (Late st Contact Info) Description 08/15/2023 Tele[address] [place] [phone] Rosy Patel MD [address] [place], [place] [address] [address] Medication Update; Medical Records Request Allergies No known active allergiesdocumented as of this encounter (statuses as of 08/16/2023) Medications Medication Sig Dispensed Refills Start Date [...] C, by GOLD 2017 classification ([facility]) INHALE 1 DOSE BY MOUTH IN THE MORNING AND 1 AT BEDTIME 60 Each 05/28/2023 Active Ventolin HFA 108 (90 Base) MCG/ACT Inhalation Aerosol SolutionIndications: COPD, group D, by GOLD 2017 classification ([facility]) Inhale 2 Puffs by mouth every 4 hours as needed for Wheezing. 18 g 2 05/28/2023 Active Albuterol Sulfate (2.5 MG/3ML) 0.083% Inhalation Nebulization Solution (Proventil)Indicatio ns:COPD, group D, by GOLD 2017 classification ([facility]) Inhale 1 Vial via nebulizer every [...] (HCC),COPD, group C, by GOLD 2017 classification (HCC),[place]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) 2.5 mg NEBULIZER PRN 04/24/2023 04/23/2024 Active Albuterol Sulfate (Proventil) (2.5 MG/3ML) 0.083% inhalation solution 2.5 mgIndications:Chronic hypoxemic respiratory failure (HCC),COPD, group C, by GOLD 2017 classification ([facility]),[place]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) 2.5 mg NEBULIZER PRN 04/24/2023 04/23/2024 Active documented as of this encounter (statuses as of 08/16/2023) Active Problems Problem Noted Date Diagnosed Date COPD, group D, by GOLD 2017 classification 04/29 Overview: Per COPD GOLD Classification [place] 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 States he was advised he was not a surgical candidate. Carotid stenosis, right 07/11/2017 History of stroke 07/11/2017 Overview: TIA vs lacunar stroke diagnosed on head CT in [place] Apr 2017. Follow up MRI [facility] no infarct. Anxiety 07/11/2017 HTN, goal below 140/90 08/02/2015 Coronary artery disease Dyslipidemia, goal LDL below 100 documented as of this encounter (statuses as of 08/16/2023) Resolved Problems Problem Noted Date Diagnosed Date [...] as of this encounter (statuses as of 08/16/2023) Immunizations Name Administration Dates Next Due COVID-19 [...] as of this encounter Miscellaneous Notes * Addendum Note - Jody Arora MD - 08/16/2023 1:40 PM EDTAddended by: JODY ARORA on: 08/16/2023 01:40 PM Modules accepted: Orders * Telephone Encounter - Jody Arora MD - 08/16/2023 1:39 PM EDT Spoke to the pt - he got a nerve block for the shoulder --- helping per pt - tramadol qhs helps as well - already on effexor for anxiety - initiated buspar BID for anxiety as well * Telephone Encounter - Nancy Seals LPN - 08/15/2023 12:01 PM EDT Changes made as below * Telephone Encounter - Rosy Patel MD - 08/15/2023 10:31 AM EDT Pt having significant issues at dialysis >> needs a 4 hr tx and struggles to get through 2.5 hrs. Issues include -anxiety -R shoulder pain -?restless leg <> may be anxiety He takes hydroxyzine hs for sleep (tells me it works poorly) -will try lower dose hydroxyzine 25 mg at start of HD to see if helps w/ anxiety >>>>strongly recommend discuss daily pharmacotherapy for anxiety w/ PCP Had MRI of shoulder; advised to f/u w/ PCP and /or ortho for next pain mgt strategies ALSO fyi -noted to have orthostatic hypotension at HD > started him on midodrine 5 mg daily before leaving home to come to HD -has elevated phosphorus > started phoslo 2 ac/1 snack -started daily renal vitamin w/ midday meal (after HD) >>Dr Arora > can he get an appt/ can you pls f/u >>Renal nurse > pls update med list as above (rx's already called in by [facility] team; just updating med list) documented in this encounter Plan of Treatment Upcoming Encounters Date Type Department Care Team (Late st Contact Info) Description 08/20/2023 12:30 PM EDT Cardiac Studies Cardiac Studies [facility] [place] [place] [address] 08/21/2023 1:00 PM EDT Office Visit Palliative Medicine [facility] 200 [place] [phone] Brielle Schmidt MD 400 [facility] [place] [address] 08/22/2023 3:30 PM EDT Telemedicine Orthopaedics [address] [phone] Ankit Castorena MD 132 [facility] [place] [address] 02/10/2024 1:00 PM EST Imaging Radiology [address] 132 [facility] [place] [address] 02/25/2024 4:00 PM EST Office Visit Urology, [facility] 132 [place] [address] Cameron Romeo MD [address] [place] [address] [place] [address] 02/26/2024 1:40 PM EST Office Visit Family Medicine [address] [phone] Jody Arora MD [address] [place] [address] [place] [address] 04/09/2024 2:20 PM EST Office Visit Nephrology [address] [place] [address] Rosy Patel MD 200 [facility] [address] Health Maintenance Due Date Last Done Comments [...] as of this encounter Visit Diagnoses Diagnosis Anxiety- Primary Anxiety state, unspecified 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
--- OUTSIDE RECORDS SUMMARY | 2023-08-27 01:17 | External Medical Summary | Summary of Care ---
Author Name Unknown Organization [facility] Address [address] [place] [address] Phone [phone] Care Team Providers Care L D Rn Name Role Phone Jody Arora MD Primary Care Provide r Reason for Visit * Reason Onset Date Comments Appointment 08/15/2023 LVM TO SCHED EMG Encounter Details Date Type Department Care Team (Late st Contact Info) Description 08/15/2023 Telephone Neurophysiology, [place] [address] [place], [place] [phone] Specified, Jody No Resource [address] [place] [address] Appointment (LVM TO SCHED EMG) Allergies No known active allergiesdocumented as of [...] OPD, group C, by GOLD 2017 classification ([facility]) INHALE 1 DOSE BY MOUTH IN THE MORNING AND 1 AT BEDTIME 60 Each 05/28/2023 Active Ventolin HFA 108 (90 Base) MCG/ACT Inhalation Aerosol SolutionIndications: COPD, group D, by GOLD 2017 classification ([facility]) Inhale 2 Puffs by mouth every 4 hours as needed for Wheezing. 18 g 2 05/28/2023 Active Albuterol Sulfate (2.5 MG/3ML) 0.083% Inhalation Nebulization Solution (Proventil)Indicatio ns:COPD, group D, by GOLD 2017 classification ([facility]) Inhale 1 Vial via nebulizer every [...] (HCC),COPD, group C, by GOLD 2017 classification (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 States he was advised he was not a surgical candidate. Carotid stenosis, right 07/11/2017 History of stroke 07/11/2017 Overview: TIA vs lacunar stroke diagnosed on head CT in [place] Apr 2017. Follow up MRI [facility] no infarct. Anxiety 07/11/2017 HTN, goal below [...] encounter Miscellaneous Notes * Telephone Encounter - Tosha Logan OSA - 08/15/2023 1:20 PM EDT LVM TO SCHED EMG documented in this encounter Plan of Treatment Upcoming Encounters Date Type Department Care Team (Late st Contact Info) Description 08/20/2023 12:30 PM EDT Cardiac Studies Cardiac Studies [address] [place] [phone] 08/21/2023 1:00 PM EDT Office Visit Palliative Medicine [address], [place] [phone] Brielle Schmidt MD 400 [facility] [place] [address] 08/22/2023 3:30 PM EDT Telemedicine Orthopaedics [address] [phone] Ankit Castorena MD 132 [facility] [place] [address] 02/10/2024 1:00 PM EST Imaging Radiology [facility] 1st Floor, [place] 132 [facility] [place] [address] 02/25/2024 4:00 PM EST Office Visit Urology, [facility] 132 [facility] [place] [address] Cameron Romeo MD [address] [place] [address] [place] [address] 02/26/2024 1:40 PM EST Office Visit Family Medicine [address] [phone] Jody Arora MD [address] [place] [address] [place] [address] 04/09/2024 2:20 PM EST Office Visit Nephrology [address] [place] [address] Rosy Patel MD 200 [facility] [place] [address] Health Maintenance Due Date Last Done Comments [...] filedocumented as of this encounter Care Teams L D Rn Relationship Specialty Start Date End Date Jody Arora MD [address] [place] [address] [place] [address] PCP - General Family Medicine 11/21/21 documented as of this encounter
--- OUTSIDE RECORDS SUMMARY | 2023-08-27 01:18 | External Medical Summary | Summary of Care ---
Author Name Unknown Organization [facility] Address [address] [facility] [address] Phone [phone] Care Team Providers Care Shrub Grower Name Role Phone Jody Arora MD Primary Care Provide r Reason for Visit * Reason Onset Date Comments Test Results Imaging Study 08/15/2023 Encounter Details Date Type Department Care Team (Late st Contact Info) Description 08/15/2023 Telephone Orthopaedics [facility] [address] [place] [address] Ankit Castorena MD [address] [place] [address] Test Results Imaging Study (/) Allergies No known active allergiesdocumented as [...] by GOLD 2017 classification ([facility]),[place]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) 2.5 mg NEBULIZER PRN 04/24/2023 04/23/2024 Active Albuterol Sulfate (Proventil) (2.5 MG/3ML) 0.083% inhalation solution 2.5 mgIndications:Chronic hypoxemic respiratory failure (HCC),COPD, group C, by GOLD 2017 classification (HCC),[place]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) 2.5 mg NEBULIZER PRN 04/24/2023 04/23/2024 Active documented as of this encounter (statuses as of 08/15/2023) Active Problems Problem Noted Date Diagnosed Date COPD, group D, by GOLD 2017 classification 04/29 Overview: Per COPD GOLD Classification [place] 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 Follow up MRI [facility] no infarct. Anxiety 07/11/2017 HTN, goal [...] encounter Miscellaneous Notes * Telephone Encounter - Ankit Castorena MD - 08/15/2023 12:30 PM EDT Telephone discussion today with the patient's daughter Dr. Damaris Pinedo DO (pediatrics) whois apediatrician at our [facility] regarding patient's shoulder and MRI results. Please see my addended note from 07/25/2023 for full details documented in this encounter Plan of Treatment Upcoming Encounters Date Type Department Care Team (Late st Contact Info) Description 08/20/2023 12:30 PM EDT Cardiac Studies Cardiac Studies [address] [place] [address] 08/21/2023 1:00 PM EDT Office Visit Palliative Medicine [facility] 200 [facility] [place] [phone] Brielle Schmidt MD 400 [facility] [place] [address] 08/22/2023 3:30 PM EDT Telemedicine Orthopaedics [address] [phone] Ankit Castorena MD 132 [facility] [place] [address] 02/10/2024 1:00 PM EST Imaging Radiology [address] 132 [facility] [place] [address] 02/25/2024 4:00 PM EST Office Visit Urology, [facility] 132 [facility] [address] Cameron Romeo MD [address] [place] [address] [place] [address] 02/26/2024 1:40 PM EST Office Visit Family Medicine [address] [phone] Jody Arora MD [address] [place] [address] [place] [address] 04/09/2024 2:20 PM EST Office Visit Nephrology [address] [place] [address] Rosy Patel MD 200 [facility] [address] Health Maintenance Due Date Last Done Comments Alpha-1 Antitrypsin 1958 *COPD SEVERITY VERIFIED BY PFT 07/16/2020 Hepatitis B (3 of 3 - 19+ 3-dose series) 03/20/2023 01/23/2023, 01/08/2018 COVID-19 Vaccine ( - 2022- season) 2023 01/03/2023, 01/10/2021, 05/24/2020, Additional history [...] filedocumented as of this encounter Care Teams Shrub Grower Relationship Specialty Start Date End Date Jody Arora MD [address] [place] [address] [place] [address] PCP - General Family Medicine 11/21/21 documented as of this encounter
--- OUTSIDE RECORDS SUMMARY | 2023-08-27 01:18 | External Medical Summary | Summary of Care ---
Author Name Unknown Organization [facility] Address [address] [place] [address] Phone [phone] Care Team Providers Care Mill Tender Warm Up Name Role Phone Jody Arora MD Primary Care Provide r Reason for Visit * Precert (Within 10 days (routine)) - Authorized Specialty Diagnoses / Procedures Referred By Adam robertson Referred To Contact Radiology Diagnoses Acute pain of right shoulder Procedures MRI SHOULDER RIGHT WO CONTRAST Ankit Castorena MD [address] [facility] [address] Referral ID Status Reason Start Date Expiration Date V isits Requested Visits Authorized [id number] Authorized 07/27/2023 999 999 Encounter Details Date Type Department Care Team (Latest Contact Info) Description 08/13/2023 7:44 PM EDT - 08/13/2023 11:59 PM EDT Hospital Encounter Radiology, [address] [address] Arrived Discharge Disposition: Home - Self Care Allergies No known active allergiesdocumented as of this encounter (statuses as of 08/14/2023) Medications Medication Sig Dispensed Refills Start Date End Date Status nitroglycerin (NITROSTAT) 0.4 MG SUBL 1 Tablet. 08/19/2018 Active Melatonin 10 MG Oral Capsule Take 1 Capsule by mouth at bedtime. Active Ipratropium-Albutero l 0.5-2.5 (3) MG/3ML Inhalation Solution (Duoneb)Indications: Chronic hypoxemic respiratory failure (HCC),COPD, group C, by GOLD 2017 classification ([facility]) Inhale 3 mL via [...] group C, by GOLD 2017 classification ([facility]) INHALE 1 DOSE BY MOUTH IN THE MORNING AND 1 AT BEDTIME 60 Each 05/28/2023 Active Ventolin HFA 108 (90 Base) MCG/ACT Inhalation Aerosol SolutionIndications: COPD, group D, by GOLD 2017 classification ([facility]) Inhale 2 Puffs by mouth every 4 hours as needed for Wheezing. 18 g 2 05/28/2023 Active Albuterol Sulfate (2.5 MG/3ML) 0.083% Inhalation Nebulization Solution (Proventil)Indicatio ns:COPD, group D, by GOLD 2017 classification ([facility]) Inhale 1 Vial via nebulizer every 4 hours as needed for Wheezing. 100 mL 1 05/28/2023 Active Albuterol Sulfate (2.5 MG/3ML) 0.083% Inhalation Nebulization Solution (Proventil)Indicatio ns:Pneumonia due to COVID-19 virus Inhale 1 Vial via nebulizer every 6 hours as needed for Wheezing. 360 mL 06/20/2023 Active Torsemide 20 MG Oral Tablet (Demadex)Indications :ESRD needing dialysis ([facility]) Take 4 Tablets by mouth 2 times [...] for Pain, Severe. 30 Tablet 08/13/2023 Active Hospital, Clinic, or Other Facility Administered Medication Ordered Dose Route Frequency Start Date End Date Status Albuterol Sulfate (Proventil) (5 MG/ML) 0.5% *conc* inhalation solution 2.5 mgIndications:Chronic hypoxemic respiratory failure (HCC),COPD, group C, by GOLD 2017 classification ([facility]),[place]man miners' lung ([facility]) 2.5 mg NEBULIZER PRN 04/24/2023 04/23/2024 Active Albuterol Sulfate (Proventil) (2.5 MG/3ML) 0.083% inhalation solution 2.5 mgIndications:Chronic hypoxemic respiratory failure (HCC),COPD, group C, by GOLD 2017 classification ([facility]),[place]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) 2.5 mg NEBULIZER PRN 04/24/2023 04/23/2024 Active documented as of this encounter (statuses as of 08/14/2023) Active Problems Problem Noted Date Diagnosed Date COPD, group D, by GOLD 2017 classification 04/29 Overview: Per COPD GOLD Classification [place]man miners' pneumoconiosis 04/24/2023 Papillary renal cell carcinoma [...] mass 07/11/2017 Overview: 2018 biopsy at [facility]/[place] per patient "kidney cancer". States he was advised he was not a surgical candidate. Carotid stenosis, right 07/11/2017 History of stroke 07/11/2017 Overview: TIA vs lacunar stroke diagnosed on head CT in [place] Apr 2017. Follow up MRI [facility] no infarct. Anxiety 07/11/2017 HTN, goal below 140/90 08/02/2015 Coronary artery disease Dyslipidemia, goal LDL below 100 documented as of this encounter (statuses as of 08/14/2023) Resolved Problems Problem Noted Date Diagnosed Date [...] as of this encounter (statuses as of 08/14/2023) Immunizations Name Administration Dates Next Due COVID-19 [...] 12:30 PM EDT Cardiac Studies Cardiac Studies [address] [place] [address] 08/21/2023 1:00 PM EDT Office Visit Palliative Medicine [facility] [address] [place] [phone] Brielle Schmidt MD [address] [place] [address] [place] [phone] 08/22/2023 3:30 PM EDT Telemedicine Orthopaedics [address] [place] [phone] Ankit Castorena MD [facility] [place] [address] 08/26/2023 8:45 AM EDT Imaging Radiology [address] [place] [address] 02/10/2024 1:00 PM EST Imaging Radiology [facility] 132 [facility] [place] [address] 02/25/2024 4:00 PM EST Office Visit Urology, [facility] 132 [facility] [place] [address] Cameron Romeo MD 27 [facility] [place] [address] [place] [address] 02/26/2024 1:40 PM EST Office Visit Family Medicine [address] [place] [phone] Jody Arora MD [address] [place] [address] [place] [address] 04/09/2024 2:20 PM EST Office Visit Nephrology [address] [place] [address] Rosy Patel MD [facility] [place] [address] Health Maintenance Due Date Last Done Comments [...] Procedure Name Priority Date/Time Associated Diagnosis Comments MRI SHOULDER RIGHT WO CONTRAST Routine 08/13/2023 8:25 PM EDT Acute pain of right shoulder [...] edema. 4. Acromioclavicular and glenohumeral joint osteoarthritis. Ankit Castorena MD RAD MRI-MRA documented in this encounter Care Teams Mill Tender Warm Up Relationship Specialty Start Date End Date Jody Arora MD [address] [place] [address] [place] [address] PCP - General Family Medicine 11/21/21 documented as of this encounter
--- OUTSIDE RECORDS SUMMARY | 2023-08-27 01:18 | External Medical Summary | Summary of Care ---
Author Name Unknown Organization [facility] Address [address] [place] [address] Phone [phone] Care Team Providers Care English Lecturer Name Role Phone Jody Arora MD Primary Care Provide r Reason for Visit * Reason Onset Date Comments Medication Pre-auth 08/14/2023 tramadol Encounter Details Date Type Department Care Team (Late st Contact Info) Description 08/14/2023 Telephone Family [address] [phone] Jody Arora MD [address] [place] [address] [place] [address] Medication Pre-auth (tramadol) Allergies No known active allergiesdocumented as of [...] GOLD 2017 classification ([facility]) INHALE 1 DOSE BY MOUTH IN THE MORNING AND 1 AT BEDTIME 60 Each 05/28/2023 Active Ventolin HFA 108 (90 Base) MCG/ACT Inhalation Aerosol SolutionIndications: COPD, group D, by GOLD 2017 classification ([facility]) Inhale 2 Puffs by mouth every 4 hours as needed for Wheezing. 18 g 2 05/28/2023 Active Albuterol Sulfate (2.5 MG/3ML) 0.083% Inhalation Nebulization Solution (Proventil)Indicatio ns:COPD, group D, by GOLD 2017 classification ([facility]) Inhale 1 Vial via nebulizer every 4 [...] by GOLD 2017 classification ([facility]),[place]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) 2.5 mg NEBULIZER PRN 04/24/2023 04/23/2024 Active Albuterol Sulfate (Proventil) (2.5 MG/3ML) 0.083% inhalation solution 2.5 mgIndications:Chronic hypoxemic respiratory failure (HCC),COPD, group C, by GOLD 2017 classification ([facility]),[place]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) 2.5 mg NEBULIZER PRN 04/24/2023 04/23/2024 Active documented as of this encounter (statuses as of 08/14/2023) Active Problems Problem Noted Date Diagnosed Date COPD, group D, by GOLD 2017 classification 04/29 Overview: Per COPD GOLD Classification [place] 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 States he was advised he was not a surgical candidate. Carotid stenosis, right 07/11/2017 History of stroke 07/11/2017 Overview: TIA vs lacunar stroke diagnosed on head CT in [place] Apr 2017. [facility] [...] Telephone Encounter - Elisa Mcmahon CMA - 08/14/2023 12:17 PM EDT Fax received from [employer]. Submited online with [employer] [id number] for his tramadol prior auth. documented in this encounter Plan of Treatment Upcoming Encounters Date Type Department Care Team (Late st Contact Info) Description 08/20/2023 12:30 PM EDT Cardiac Studies Cardiac Studies [address] [place] [address] 08/21/2023 1:00 PM EDT Office Visit Palliative Medicine [facility] [address] [place] [phone] Brielle Schmidt MD [address] [place] [address] [place] [address] 08/22/2023 3:30 PM EDT Telemedicine Orthopaedics [address] [phone] Ankit Castorena MD [address] [place] [address] 08/26/2023 8:45 AM EDT Imaging Radiology [address] [place] [address] 02/10/2024 1:00 PM EST Imaging Radiology [address] [facility] [place] [address] 02/25/2024 4:00 PM EST Office Visit Urology, [facility] 132 [facility] [place] [address] Cameron Romeo MD 27 [facility] [address] [place] [address] 02/26/2024 1:40 PM EST Office Visit Family Medicine [address] [place] [phone] Jody Arora MD [address] [place] [address] [place] [address] 04/09/2024 2:20 PM EST Office Visit Nephrology [address] [place] [address] Rosy Patel MD [address] [place] [address] Health Maintenance Due Date Last Done Comments [...] filedocumented as of this encounter Care Teams English Lecturer Relationship Specialty Start Date End Date Jody Arora MD [address] [place] [address] [place] [phone] PCP - General Family Medicine 11/21/21 documented as of this encounter
--- OUTSIDE RECORDS SUMMARY | 2023-08-27 01:18 | External Medical Summary | Summary of Care ---
Author Name Unknown Organization [facility] Address [address] [place] [address] Phone [phone] Care Team Providers Care Anglesmith Name Role Phone Jody Arora MD Primary Care Provide r Reason for Visit * Reason Onset Date Comments Medication Update 08/15/2023 Medical Records Request 08/15/2023 Encounter Details Date Type Department Care Team (Late st Contact Info) Description 08/15/20[address] [place] [phone] Rosy Patel MD [address] [place], [place] [address] [address] Medication Update; Medical Records Request Allergies No [...] OPD, group C, by GOLD 2017 classification ([facility]) INHALE 1 DOSE BY MOUTH IN THE MORNING AND 1 AT BEDTIME 60 Each 05/28/2023 Active Ventolin HFA 108 (90 Base) MCG/ACT Inhalation Aerosol SolutionIndications: COPD, group D, by GOLD 2017 classification ([facility]) Inhale 2 Puffs by mouth every 4 hours as needed for Wheezing. 18 g 2 05/28/2023 Active Albuterol Sulfate (2.5 MG/3ML) 0.083% Inhalation Nebulization Solution (Proventil)Indicatio ns:COPD, group D, by GOLD 2017 classification ([facility]) Inhale 1 Vial via nebulizer every 4 [...] (HCC),COPD, group C, by GOLD 2017 classification ([facility]),[place]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) 2.5 mg NEBULIZER PRN 04/24/2023 04/23/2024 Active Albuterol Sulfate (Proventil) (2.5 MG/3ML) 0.083% inhalation solution 2.5 mgIndications:Chronic hypoxemic respiratory failure (HCC),COPD, group C, by GOLD 2017 classification (HCC),[place]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) 2.5 mg NEBULIZER PRN 04/24/2023 04/23/2024 Active documented as of this encounter (statuses as of 08/15/2023) Active Problems Problem Noted Date Diagnosed Date COPD, group D, by GOLD 2017 classification 04/29 Overview: Per COPD GOLD Classification [place]re[place] miners' pneumoconiosis 04/24/2023 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 Overview: Of the L kidney BPH without obstruction/lower urinary tract symp toms 12/07/2021 Right sided weakness 12/07/2021 Kidney disease, chronic, stage IV (GFR 15-29 ml/ min) 07/26/2020 Overview: Per CKD protocol Hx of nonmelanoma skin cancer 04/06/2019 Overview: 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 Follow up MRI [facility] no infarct. Anxiety 07/11/2017 HTN, goal below [...] encounter Miscellaneous Notes * Telephone Encounter - Nancy Seals LPN [...] as above (rx's already called in by [facility] team; just updating med list) documented in this encounter Plan of Treatment Upcoming Encounters Date Type Department Care Team (Late st Contact Info) Description 08/20/2023 12:30 PM EDT Cardiac Studies Cardiac Studies [address] [place] [address] 08/21/2023 1:00 PM EDT Office Visit Palliative Medicine [facility] [address] [place] [phone] Brielle Schmidt MD [address] [place] [address] [place] [address] 08/22/2023 3:30 PM EDT Telemedicine Orthopaedics [address] [phone] Ankit Castorena MD 132 [facility] [place] [address] 02/10/2024 1:00 PM EST Imaging Radiology [address] [facility] [place] [address] 02/25/2024 4:00 PM EST Office Visit Urology, [facility] 132 [facility] [place] [address] Cameron Romeo MD [address] [place] [address] [place] [address] 02/26/2024 1:40 PM EST Office Visit Family Medicine [address] [place] [phone] Jody Arora MD [address] [place] [address] [place] [address] 04/09/2024 2:20 PM EST Office Visit Nephrology [address] [place] [address] Rosy Patel MD [address] [place] [address] Health Maintenance Due Date Last Done Comments [...] sleep documented in this encounter Care Teams Anglesmith Relationship Specialty Start Date End Date Jody Arora MD [address] [place] [address] [place] [address] PCP - General Family Medicine 11/21/21 documented as of this encounter
--- OUTSIDE RECORDS SUMMARY | 2023-08-27 01:18 | External Medical Summary | Summary of Care ---
Author Name Unknown Organization [facility] Address [address] [place] [address] Phone [phone] Care Team Providers Care Supervisor Trust Accounts Name Role Phone Jody Arora MD Primary Care Provide r Reason for Referral * Precert (Within 10 days (routine)) - Authorized Specialty Diagnoses / Procedures Referred By Contjesika t Referred To Contact Radiology Diagnoses Acute pain of right shoulder Procedures MRI SHOULDER RIGHT WO CONTRAST Brianna Delcid MD [address] [facility] [place] [address] Referral ID Status Reason Start Date Expiration Date V isits Requested Visits Authorized [id number] Authorized 07/27/2023 999 999 Reason for Visit * Reason Comments NEW PATIENT Pain R shoulder * Evaluate & Treat - Unlimited Visits (Within 30 days (routine)) - Authorized Specialty Diagnoses / Procedures Referred By Adam robertson Referred To Contact Orthopaedic Surgery / Orthopedics Diagnoses Pain in joint of right shoulder Jody Arora MD [address] [place] [address] [place] [address] Referral ID Status Reason Start Date Expiration Date Visits Requested Visits Authorized [id number] Authorized Specialty Services Required 07/23/2023 999 [id number] Encounter Details Date Type Department Care Team (Late st Contact Info) Description 07/25/2023 1:30 PM EDT Office Visit Orthopaedics [address] [phone] Brianna Delcid MD [address] [place] [address] Pain in muscle of shoulder*; Acute pain [...] 2017 classification ([facility]) Inhale 3 mL via nebulizer every 4 [...] 2017 classification ([facility]) INHALE 1 DOSE BY MOUTH IN THE MORNING AND 1 AT BEDTIME 60 Each 05/28/2023 Active Ventolin HFA 108 (90 Base) MCG/ACT Inhalation Aerosol SolutionIndications: COPD, group D, by GOLD 2017 classification ([facility]) Inhale 2 Puffs by mouth every 4 hours as needed for Wheezing. 18 g 2 05/28/2023 Active Albuterol Sulfate (2.5 MG/3ML) 0.083% Inhalation Nebulization Solution (Proventil)Indicatio ns:COPD, group D, by GOLD 2017 classification ([facility]) Inhale 1 Vial via nebulizer every 4 hours as needed for Wheezing. 100 mL 1 05/28/2023 Active Albuterol Sulfate (2.5 MG/3ML) 0.083% Inhalation Nebulization Solution (Proventil)Indicatio ns:Pneumonia due to COVID-19 virus Inhale 1 Vial via nebulizer every 6 hours as needed for Wheezing. 360 mL 06/20/2023 Active Torsemide 20 MG Oral Tablet (Demadex)Indications :ESRD needing dialysis ([facility]) Take 4 Tablets by mouth 2 times [...] 2017 classification ([facility]),[place]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) 2.5 mg NEBULIZER PRN 04/24/2023 04/23/2024 Active Albuterol Sulfate (Proventil) (2.5 MG/3ML) 0.083% inhalation solution 2.5 mgIndications:Chronic hypoxemic respiratory failure (HCC),COPD, group C, by GOLD 2017 classification ([facility]),[place]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) 2.5 mg NEBULIZER PRN [...] classification 04/29 Overview: Per COPD GOLD Classification [place] miners' pneumoconiosis 04/24/2023 Papillary renal cell carcinoma [...] Overview: [address] [facility]/[place] per patient "kidney cancer". States he was advised he was not a surgical candidate. Carotid stenosis, right 07/11/2017 History of stroke 07/11/2017 Overview: TIA vs lacunar stroke diagnosed on head CT in [place] Apr 2017. Follow up MRI [facility] [...] - 07/25/2023 1:45 PM EDT Justin Kinney [phone] Justin Kinney is a 83 year old male who presents for consultation to [facility] Orthopaedics and [facility] Medicine for right shoulder [...] Microalbuminuria Myocardial infarct, old 1998 stent in [place]--Dr. 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 Damaris Kinney DO (pediatrics)) [facility]. Telephone or in office follow-up [...] Damaris Kinney DO (pediatrics) who is a high school physical education teacher at her [employer] [place]. Discussion was based on patient's shoulder [...] discussed the patient's MRI with Dr. Marroquin ([facility] radiology [facility]) who was not the interpreting radiologist for his MRI. He is with findings though. Traditional orthopedictype findings are relatively mild including the arthritis findings and small tears. Neither of us suspect they would be the origins for his pain description. However finding 3. Discussing intermuscular edema within the supraspinatus, infraspinatus and deltoid. Discussed potential neurogenic etiologies including parsonage Landrum syndrome or potential suprascapular nerve. Periscapular nervous seen while in the MRI and there was no identifiable sites of entrapment. Discussed options with the patient's daughter including: Suprascapular nerve block through [facility] Radiology, higher dose steroids (potentially for up to 2 weeks of high dosing 1 mg/kg followed by a taper is recommended in orthobullets but doubtful I would prescribe that high, possible 50 mg/day for 2 weeks then taper), and EMG Referred to Dr. Marroquin ([facility] radiology Ketty [facility]) for fluoro guided suprascapular [...] Delcid MD Primary Care Sports Medicine Orthopaedics [address] [phone] documented in this encounter Nursing Notes * Ann-Marie Gonzalez LPN - 07/25/2023 1:27 PM EDT -NEW Pt -R shoulder -Xray 07/23/23 -Pt c/o 8/10 pain [...] 12:30 PM EDT Cardiac Studies Cardiac Studies [address] [place] [address] 08/21/2023 1:00 PM EDT Office Visit Palliative Medicine [facility] [address] [place] [phone] Brielle Schmidt MD [address] [place] [address] [place] [address] 08/22/2023 3:30 PM EDT Telemedicine Orthopaedics [address] [phone] Brianna Delcid MD 132 [facility] [place] [address] 02/10/2024 1:00 PM EST Imaging Radiology [address] [facility] [place] [address] 02/25/2024 4:00 PM EST Office Visit Urology, [facility] 132 [facility] [place] [address] Cameron Romeo MD [address] [place] [address] [place] [address] 02/26/2024 1:40 PM EST Office Visit Family Medicine [address] [place] [phone] Jody Arora MD [address] [place] [address] [place] [address] 04/09/2024 2:20 PM EST Office Visit Nephrology [address] [place] [address] Rosy Patel MD [address] [place] [address] Scheduled Orders Name Type Priority Associated Diagnoses [...] Right documented in this encounter Care Teams Supervisor Trust Accounts Relationship Specialty Start Date End Date Jody Arora MD [address] [place] [address] [place] [phone] PCP - General Family Medicine 11/21/21 documented as of this encounter
[2023-08-27 01:19] LABS: ANTI-Xa, UFH(UnfractionatedHep 0.11 IU/ml (0.3-0.7)
--- OUTSIDE RECORDS SUMMARY | 2023-08-27 01:19 | External Medical Summary | Summary of Care ---
Author Name Unknown Organization [facility] Address [address] [facility] [address] Phone [phone] Care Team Providers Care Clutch Rebuilder Name Role Phone Jody Arora MD Primary Care Provide r Reason for Visit * Reason Onset Date Comments Advice 08/07/2023 Encounter Details Date Type Department Care Team (Late st Contact Info) Description 08/07/2023 Telephone Family [address] [place] [address] Jody Arora MD [address] [place] [address] [place] [address] Advice Allergies No known active allergiesdocumented as of this encounter (statuses as of 08/07/2023) Medications Medication Sig Dispensed Refills Start Date [...] Active predniSONE 20 MG Oral Tablet (Deltasone)Indicatio ns:Arthralgia of shoulder, unspecified laterality Take 2 Tablets by mouth in the morning for 5 days. 10 Tablet 08/07/2023 Active LORazepam 0.5 MG Oral Tablet (Ativan)Indications: Phobia, unspecified type Take one tablet 15-20 mins prior to the MRI study 1 Tablet 08/07/2023 Active Hospital, Clinic, or Other Facility Administered Medication Ordered Dose Route Frequency Start Date End Date Status Albuterol Sulfate (Proventil) (5 MG/ML) 0.5% *conc* inhalation solution 2.5 mgIndications:Chronic hypoxemic respiratory failure (HCC),COPD, group C, by GOLD 2017 classification ([facility]),[place]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) 2.5 mg NEBULIZER PRN 04/24/2023 04/23/2024 Active Albuterol Sulfate (Proventil) (2.5 MG/3ML) 0.083% inhalation solution 2.5 mgIndications:Chronic hypoxemic respiratory failure (HCC),COPD, group C, by GOLD 2017 classification ([facility]),[place]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) 2.5 mg NEBULIZER PRN 04/24/2023 04/23/2024 Active documented as of this encounter (statuses as of 08/07/2023) Active Problems Problem Noted Date Diagnosed Date COPD, group D, by GOLD 2017 classification 04/29 Overview: Per COPD GOLD Classification [place] miners' pneumoconiosis 04/24/2023 Papillary renal cell carcinoma [...] 07/11/2017 Overview: 2018 biopsy at [facility] per patient "kidney cancer". States he was advised he was not a surgical candidate. Carotid stenosis, right 07/11/2017 History of stroke 07/11/2017 Overview: TIA vs lacunar stroke diagnosed on head CT in [place] Apr 2017. Follow up MRI [facility] no infarct. Anxiety 07/11/2017 HTN, goal below 140/90 08/02/2015 Coronary artery disease Dyslipidemia, goal LDL below 100 documented as of this encounter (statuses as of 08/07/2023) Resolved Problems Problem Noted Date Diagnosed Date [...] as of this encounter (statuses as of 08/07/2023) Immunizations Name Administration Dates Next Due COVID-19 [...] Telephone Encounter - Jody Arora MD - 08/07/2023 10:53 AM EDT Examined the pt in the clinic L arm: good radial pulse, no sign of distal arm swelling - getting C spine xray today Copied from other encounter: Per pt's daughter - pt is still having L shoulder pain and L arm pain - he is getting anxious prior to MRI Plan: - will get C spine xray - ativan prior to MRI - will check his arm with the graft today when he comes in for the xrays documented in this encounter Plan of Treatment Upcoming Encounters Date Type Department Care Team (Late st Contact Info) Description 08/20/2023 12:30 PM EDT Cardiac Studies Cardiac Studies [facility] [place] [place] [address] 08/21/2023 1:00 PM EDT Office Visit Palliative Medicine [facility] 200 [facility], [place] [address] Brielle Schmidt MD [address] [place] [address] [place] [address] 08/22/2023 3:30 PM EDT Telemedicine Orthopaedics [address] [phone] Ankit Castorena MD [address] [place] [address] 02/10/2024 1:00 PM EST Imaging Radiology [facility] 1st [facility] 132 [facility] [place] [address] 02/25/2024 4:00 PM EST Office Visit Urology, [facility] 132 [facility] [place] [address] Cameron Romeo MD 27 [facility] [address] [place] [address] 02/26/2024 1:40 PM EST Office Visit Family Medicine [address] [phone] Jody Arora MD [address] [place] [address] [place] [address] 04/09/2024 2:20 PM EST Office Visit Nephrology [address] [place] [address] Rosy Patel MD 200 [facility] [place] [address] Health Maintenance Due Date Last Done Comments [...] filedocumented as of this encounter Care Teams Clutch Rebuilder Relationship Specialty Start Date End Date Jody Arora MD [address] [place] [address] [place] [address] PCP - General Family Medicine 11/21/21 documented as of this encounter
--- OUTSIDE RECORDS SUMMARY | 2023-08-27 01:19 | External Medical Summary | Summary of Care ---
Author Name Unknown Organization [facility] Address [address] [place] [address] Phone [phone] Care Team Providers Care Cytometry Technologist Name Role Phone Jody Arora MD Primary Care Provide r Encounter Details Date Type Department Care Team (Late st Contact Info) Description 05/13/2023 Telephone Family Medicine [address] [phone] Jody Arora MD [address] [place] [address] [place] [address] Allergies No known active allergiesdocumented as of this encounter (statuses as of 08/12/2023) Medications Medication Sig Dispensed Refills Start Date [...] FOR INSOMNIA 30 Tablet 3 05/13/2023 Active Hospital, Clinic, or Other Facility Administered Medication Ordered Dose Route Frequency Start Date End Date Status Albuterol Sulfate (Proventil) (5 MG/ML) 0.5% *conc* inhalation solution 2.5 mgIndications:Chronic hypoxemic respiratory failure (HCC),COPD, group C, by GOLD 2017 classification ([facility]),[place] miners' lung ([facility]) 2.5 mg NEBULIZER PRN 04/24/2023 04/23/2024 Active Albuterol Sulfate (Proventil) (2.5 MG/3ML) 0.083% inhalation solution 2.5 mgIndications:Chronic hypoxemic respiratory failure (HCC),COPD, group C, by GOLD 2017 classification ([facility]),[place] miners' lung ([facility]) 2.5 mg NEBULIZER PRN 04/24/2023 04/23/2024 Active documented as of this encounter (statuses as of 08/12/2023) Active Problems Problem Noted Date Diagnosed Date COPD, group D, by GOLD 2017 classification 04/29 Overview: Per COPD GOLD Classification [place] 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 States he was advised he was not a surgical candidate. Carotid stenosis, right 07/11/2017 History of stroke 07/11/2017 Overview: TIA vs lacunar stroke diagnosed on head CT in [place] Apr 2017. Follow up MRI [facility] no infarct. Anxiety 07/11/2017 HTN, goal below 140/90 08/02/2015 Coronary artery disease Dyslipidemia, goal LDL below 100 documented as of this encounter (statuses as of 08/12/2023) Resolved Problems Problem Noted Date Diagnosed Date [...] as of this encounter (statuses as of 08/12/2023) Immunizations Name Administration Dates Next Due COVID-19 [...] Telephone Encounter - Mary Yepez LPN - 05/13/2023 3:33 PM EST Pt calling due to cough up bright red blood for 2 day. He has chills. He is always sob. No n/v No covid test taken. Called office [place], advised by Dr Granger to send pt to ER. Pt verbalized understanding. He indicated he will not go to [facility]. He indicates he will either go to [facility] or [facility]. documented in this encounter Plan of Treatment Upcoming Encounters Date Type Department Care Team (Late st Contact Info) Description 08/20/2023 12:30 PM EDT Cardiac Studies Cardiac Studies [address] [place] [id number] 08/21/2023 1:00 PM EDT Office Visit Palliative Medicine [facility] 200 [place] [address] Brielle Schmidt MD 400 [facility] [place] [address] 08/22/2023 3:30 PM EDT Telemedicine Orthopaedics [address] [phone] Ankit Castorena MD 132 [facility] [address] 08/26/2023 8:45 AM EDT Imaging Radiology [address] [place] [address] 02/10/2024 1:00 PM EST Imaging Radiology [address] 132 [facility] [place] [address] 02/25/2024 4:00 PM EST Office Visit Urology, [facility] 132 [facility] [place] [address] Cameron Romeo MD [address] [place] [address] [place] [address] 02/26/2024 1:40 PM EST Office Visit Family Medicine [address] [phone] Jody Arora MD [address] [place] [address] [place] [address] 04/09/2024 2:20 PM EST Office Visit Nephrology [address] [place] [address] Rosy Patel MD 200 [facility] [place] [address] Health Maintenance Due Date Last Done Comments [...] filedocumented as of this encounter Care Teams Cytometry Technologist Relationship Specialty Start Date End Date Jody Arora MD [address] [place] [address] [place] [address] PCP - General Family Medicine 11/21/21 documented as of this encounter
--- OUTSIDE RECORDS SUMMARY | 2023-08-27 01:19 | External Medical Summary | Summary of Care ---
Author Name Unknown Organization [facility] Address [address] [place] [address] Phone [phone] Care Team Providers Care Process Treater Name Role Phone Jody Arora MD Primary Care Provide r Reason for Visit * Reason Onset Date Comments TRIAGE 06/24/2023 Encounter Details Date Type Department Care Team (Late st Contact Info) Description 06/24/2023 Telephone [facility] 16 [place] [address] Sergio Jung, [address] [place] [phone] TRIAGE Allergies No known active allergiesdocumented as of this encounter (statuses as of 08/08/2023) Medications Medication Sig Dispensed Refills Start Date [...] C, by GOLD 2017 classification ([facility]) INHALE 1 DOSE BY MOUTH IN THE MORNING AND 1 AT BEDTIME 60 Each 05/28/2023 Active Ventolin HFA 108 (90 Base) MCG/ACT Inhalation Aerosol SolutionIndications: COPD, group D, by GOLD 2017 classification ([facility]) Inhale 2 Puffs by mouth every 4 hours as needed for Wheezing. 18 g 2 05/28/2023 Active Albuterol Sulfate (2.5 MG/3ML) 0.083% Inhalation Nebulization Solution (Proventil)Indicatio ns:COPD, group D, by GOLD 2017 classification ([facility]) Inhale 1 Vial via nebulizer every 4 hours as needed for Wheezing. 100 mL 1 05/28/2023 Active Albuterol Sulfate (2.5 MG/3ML) 0.083% Inhalation Nebulization Solution (Proventil)Indicatio ns:Pneumonia due to COVID-19 virus Inhale 1 Vial via nebulizer every 6 hours as needed for Wheezing. 360 mL 06/20/2023 Active Hospital, Clinic, or Other Facility Administered Medication Ordered Dose Route Frequency Start Date End Date Status Albuterol Sulfate (Proventil) (5 MG/ML) 0.5% *conc* inhalation solution 2.5 mgIndications:Chronic hypoxemic respiratory failure (HCC),COPD, group C, by GOLD 2017 classification (HCC),[place]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) 2.5 mg NEBULIZER PRN 04/24/2023 04/23/2024 Active Albuterol Sulfate (Proventil) (2.5 MG/3ML) 0.083% inhalation solution 2.5 mgIndications:Chronic hypoxemic respiratory failure (HCC),COPD, group C, by GOLD 2017 classification ([facility]),[place]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) 2.5 mg NEBULIZER PRN 04/24/2023 04/23/2024 Active documented as of this encounter (statuses as of 08/08/2023) Active Problems Problem Noted Date Diagnosed Date COPD, group D, by GOLD 2017 classification 04/29 Overview: Per COPD GOLD Classification [place] 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 States he was advised he was not a surgical candidate. Carotid stenosis, right 07/11/2017 History of stroke 07/11/2017 Overview: TIA vs lacunar stroke diagnosed on head CT in [place] Apr 2017. Follow up MRI [facility] no infarct. Anxiety 07/11/2017 HTN, goal below 140/90 08/02/2015 Coronary artery disease Dyslipidemia, goal LDL below 100 documented as of this encounter (statuses as of 08/08/2023) Resolved Problems Problem Noted Date Diagnosed Date [...] as of this encounter (statuses as of 08/08/2023) Immunizations Name Administration Dates Next Due COVID-19 [...] encounter Miscellaneous Notes * Telephone Encounter - Daniel Silva OSA - 06/24/2023 10:24 AM EDT Pt was calling in because he thought he had a appt today that was clcx and wanted me to reschedule it because he said he needs to be seen cause his right eye is not acting right. Pt had a po appt that was on 07/14 that was cancelled but nothing for today. He said he needs to be seen cause his righteye is the eye that was more droupie and right up in the corner of that eye it keeps tearing up real bad and its not like the left one he said he is not sure he just knows something is not right and wants to see the doc Thank you daniel documented in this encounter Plan of Treatment Upcoming Encounters Date Type Department Care Team (Late st Contact Info) Description 08/20/2023 12:30 PM EDT Cardiac Studies Cardiac Studies [address] [place] [address] 08/21/2023 1:00 PM EDT Office Visit Palliative Medicine [facility] 200 [place] [phone] Brielle Schmidt MD [address] [place] [address] [place] [address] 08/22/2023 3:30 PM EDT Telemedicine Orthopaedics [address] [address] Ankit Castorena MD 132 [facility] [place] [address] 02/10/2024 1:00 PM EST Imaging Radiology [address] 132 [facility] [place] [address] 02/25/2024 4:00 PM EST Office Visit Urology, [facility] 132 [facility] [place] [address] Cameron Romeo MD [address] [place] [address] [place] [address] 02/26/2024 1:40 PM EST Office Visit Family Medicine [address] [place] [phone] Jody Arora MD [address] [place] [address] [place] [address] 04/09/2024 2:20 PM EST Office Visit Nephrology [address] [place] [address] Rosy Patel MD [address] [place] [address] Health Maintenance Due Date Last Done Comments [...] filedocumented as of this encounter Care Teams Process Treater Relationship Specialty Start Date End Date Jody Arora MD [address] [place] [address] [place] [address] PCP - General Family Medicine 11/21/21 documented as of this encounter
--- OUTSIDE RECORDS SUMMARY | 2023-08-27 01:19 | External Medical Summary | Summary of Care ---
Author Name Unknown Organization [facility] Address [address] [place] [facility] [place] [address] Phone [phone] Care Team Providers Care Concrete Inspector Name Role Phone Jody Arora MD Primary Care Provide r Reason for Visit * Reason Onset Date Comments Advice 08/13/2023 Encounter Details Date Type Department Care Team (Late st Contact Info) Description 08/13/2023 Telephone Family [address] [place] [address] Jody Arora MD [address] [place] [address] [place] [address] Advice Allergies No known active allergiesdocumented as of this encounter (statuses as of 08/13/2023) Medications Medication Sig Dispensed Refills Start Date End Date Status nitroglycerin (NITROSTAT) 0.4 MG SUBL 1 Tablet. 08/19/2018 Active Melatonin 10 MG Oral Capsule Take 1 Capsule by mouth at bedtime. Active Ipratropium-Albutero l 0.5-2.5 (3) MG/3ML Inhalation Solution (Duoneb)Indications: Chronic hypoxemic respiratory failure (HCC),COPD, group C, by GOLD 2017 classification ([facility]) Inhale 3 mL via nebulizer [...] OPD, group C, by GOLD 2017 classification ([facility]) INHALE 1 DOSE BY MOUTH IN THE MORNING AND 1 AT BEDTIME 60 Each 05/28/2023 Active Ventolin HFA 108 (90 Base) MCG/ACT Inhalation Aerosol SolutionIndications: COPD, group D, by GOLD 2017 classification ([facility]) Inhale 2 Puffs by mouth every 4 hours as needed for Wheezing. 18 g 2 05/28/2023 Active Albuterol Sulfate (2.5 MG/3ML) 0.083% Inhalation Nebulization Solution (Proventil)Indicatio ns:COPD, group D, by GOLD 2017 classification ([facility]) Inhale 1 Vial via nebulizer [...] (HCC),COPD, group C, by GOLD 2017 classification ([facility]),[place]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) 2.5 mg NEBULIZER PRN 04/24/2023 04/23/2024 Active Albuterol Sulfate (Proventil) (2.5 MG/3ML) 0.083% inhalation solution 2.5 mgIndications:Chronic hypoxemic respiratory failure (HCC),COPD, group C, by GOLD 2017 classification ([facility]),[place]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) 2.5 mg NEBULIZER PRN 04/24/2023 04/23/2024 Active documented as of this encounter (statuses as of 08/13/2023) Active Problems Problem Noted Date Diagnosed Date COPD, group D, by GOLD 2017 classification 04/29 Overview: Per COPD GOLD Classification [place] 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 Follow up MRI [facility] no infarct. Anxiety 07/11/2017 HTN, goal below 140/90 08/02/2015 Coronary artery disease Dyslipidemia, goal LDL below 100 documented as of this encounter (statuses as of 08/13/2023) Resolved Problems Problem Noted Date Diagnosed Date [...] as of this encounter (statuses as of 08/13/2023) Immunizations Name Administration Dates Next Due COVID-19 [...] Telephone Encounter - Jody Arora MD - 08/13/2023 12:31 PM EDT Pt's daughter stated that pt is still having severe R shoulder pain - getting MRI shoulder today - they inquire abt MRI C spine --- at this time no need for MRI C spine - due to severity of the symptoms will do tramadol 50mg daily prn documented in this encounter Plan of Treatment Upcoming Encounters Date Type Department Care Team (Late st Contact Info) Description 08/13/2023 8:15 PM EDT Appointment Radiology, [address] [place] [address] 08/20/2023 12:30 PM EDT Cardiac Studies Cardiac Studies [facility] [place] [place] [phone] 08/21/2023 1:00 PM EDT Office Visit Palliative Medicine [facility] 200 [facility] [address] Brielle [facility] 400 [facility] [place] [address] 08/22/2023 3:30 PM EDT Telemedicine Orthopaedics [address] [place] [phone] Ankit Castorena MD 132 [facility] [place] [address] 08/26/2023 8:45 AM EDT Imaging Radiology [address] [place] [address] 02/10/2024 1:00 PM EST Imaging Radiology [facility] 132 [facility] [place] [address] 02/25/2024 4:00 PM EST Office Visit Urology, [facility] 132 [facility] [place] [address] Cameron Romeo MD 27 [facility] [address] [place] [address] 02/26/2024 1:40 PM EST Office Visit Family Medicine [address] [place] [phone] Jody Arora MD [address] [place] [address] [place] [address] 04/09/2024 2:20 PM EST Office Visit Nephrology [address] [place] [address] Rosy Patel MD [address] [place] [address] Health Maintenance Due Date Last Done Comments [...] as of this encounter Visit Diagnoses Diagnosis Pain in joint of right shoulder- Primary Pain in joint, shoulder region documented in this encounter Care Teams Concrete Inspector Relationship Specialty Start Date End Date Jody Arora MD [address] [place] [address] [place] [phone] PCP - General Family Medicine 11/21/21 documented as of this encounter
--- OUTSIDE RECORDS SUMMARY | 2023-08-27 01:19 | External Medical Summary | Summary of Care ---
Author Name Unknown Organization [facility] Address [address] [place] [address] Phone [phone] Care Team Providers Care General Sales Manager Name Role Phone Jody Arora MD Primary Care Provide r Reason for Visit * Reason Onset Date Comments Appointment 08/13/2023 Encounter Details Date Type Department Care Team (Late st Contact Info) Description 08/13/2023 Telephone Radiology, [facility] [address] [place] [address] Riki Pineda, RT Appointment Allergies No known active allergiesdocumented as [...] GOLD 2017 classification ([facility]) INHALE 1 DOSE BY MOUTH IN THE MORNING AND 1 AT BEDTIME 60 Each 05/28/2023 Active Ventolin HFA 108 (90 Base) MCG/ACT Inhalation Aerosol SolutionIndications: COPD, group D, by GOLD 2017 classification ([facility]) Inhale 2 Puffs by mouth every 4 hours as needed for Wheezing. 18 g 2 05/28/2023 Active Albuterol Sulfate (2.5 MG/3ML) 0.083% Inhalation Nebulization Solution (Proventil)Indicatio ns:COPD, group D, by GOLD 2017 classification ([facility]) Inhale 1 Vial via nebulizer every [...] by GOLD 2017 classification ([facility]),[place]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) 2.5 mg NEBULIZER PRN 04/24/2023 04/23/2024 Active Albuterol Sulfate (Proventil) (2.5 MG/3ML) 0.083% inhalation solution 2.5 mgIndications:Chronic hypoxemic respiratory failure (HCC),COPD, group C, by GOLD 2017 classification ([facility]),[place] miners' lung ([facility]) 2.5 mg NEBULIZER PRN 04/24/2023 04/23/2024 Active documented as of this encounter (statuses as of 08/13/2023) Active Problems Problem Noted Date Diagnosed Date COPD, group D, by GOLD 2017 classification 04/29 Overview: Per COPD GOLD 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 [facility] [...] encounter Miscellaneous Notes * Telephone Encounter - Riki Pineda RT - 08/13/2023 10:32 AM EDT Ready for mri Heart stent 25 yrs ago documented in this encounter Plan of Treatment Upcoming Encounters Date Type Department Care Team (Late st Contact Info) Description 08/13/2023 8:15 PM EDT Appointment Radiology, [address] [place] [address] 08/20/2023 12:30 PM EDT Cardiac Studies Cardiac Studies [address] [place] [address] 08/21/2023 1:00 PM EDT Office Visit Palliative Medicine [facility] 200 [place] [phone] Brielle Schmidt MD [address] [place] [address] [place] [address] 08/22/2023 3:30 PM EDT Telemedicine Orthopaedics [address] [phone] Ankit Castorena MD 132 [facility] [place] [address] 08/26/2023 8:45 AM EDT Imaging Radiology [address] [place] [address] 02/10/2024 1:00 PM EST Imaging Radiology [facility] 1st [facility] 132 [facility] [place] [address] 02/25/2024 4:00 PM EST Office Visit Urology, [facility] 132 [facility] [place] [address] Cameron Romeo MD [address] [place] [address] [place] [address] 02/26/2024 1:40 PM EST Office Visit Family Medicine [address] [place] [phone] Jody Arora MD [address] [place] [address] [place] [address] 04/09/2024 2:20 PM EST Office Visit Nephrology [address] [place] [address] Rosy Patel MD [address] [place] [address] Health Maintenance Due Date Last Done Comments [...] as of this encounter Care Teams General Sales Manager Relationship Specialty Start Date End Date Jody Arora MD [address] [place] [address] [place] [address] PCP - General Family Medicine 11/21/21 documented as of this encounter
--- OUTSIDE RECORDS SUMMARY | 2023-08-27 01:19 | External Medical Summary | Summary of Care ---
Author Name Unknown Organization [facility] Address [address] [place] [address] Phone [phone] Care Team Providers Care Manager Of Employee Relations Name Role Phone Jody Arora MD Primary Care Provide r Encounter Details Date Type Department Care Team (Late st Contact Info) Description 08/08/2023 Telephone Family Medicine [address] [phone] Jody Arora MD [address] [place] [address] [place] [address] Allergies No known active allergiesdocumented as of this encounter (statuses as of 08/09/2023) Medications Medication Sig Dispensed Refills Start Date [...] by GOLD 2017 classification ([facility]),[place]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) 2.5 mg NEBULIZER PRN 04/24/2023 04/23/2024 Active Albuterol Sulfate (Proventil) (2.5 MG/3ML) 0.083% inhalation solution 2.5 mgIndications:Chronic hypoxemic respiratory failure (HCC),COPD, group C, by GOLD 2017 classification ([facility]),[place]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) 2.5 mg NEBULIZER PRN 04/24/2023 04/23/2024 Active documented as of this encounter (statuses as of 08/09/2023) Active Problems Problem Noted Date Diagnosed Date COPD, group D, by GOLD 2017 classification 04/29 Overview: Per COPD GOLD Classification [place] 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 States he was advised he was not a surgical candidate. Carotid stenosis, right 07/11/2017 History of stroke 07/11/2017 Overview: TIA vs lacunar stroke diagnosed on head CT in [place] Apr 2017. Follow up MRI [facility] no infarct. Anxiety 07/11/2017 HTN, goal below 140/90 08/02/2015 Coronary artery disease Dyslipidemia, goal LDL below 100 documented as of this encounter (statuses as of 08/09/2023) Resolved Problems Problem Noted Date Diagnosed Date [...] as of this encounter (statuses as of 08/09/2023) Immunizations Name Administration Dates Next Due COVID-19 [...] money to buy more. Never true 05/20/19 Within the past 12 months, t he [...] Telephone Encounter - Jody Arora MD - 08/09/2023 8:23 AM EDT Spoke to the pt - pt does get his K+checked at dialysis and session mely -I suspect likely dehydration --- recommended to drink 2L of water - echo showed EF of 60% * Telephone Encounter - Susan Norton LPN - 08/08/2023 3:24 PM EDT Patient is calling. He is having cramps in his arms and legs. It has been off and on for a couple of days. Getting worse. Patient reports, they don't last long, Couple of minutes, but they hurt. He started dialysis last . Goes 3 days a week in with [facility] in [place]. Rates the pain as a 7 or 8 out of 10. Can't call dialysis, they are closed. Asking what he can do? Urine output is low. He has been cutting back on drinking too. Denies any other symptoms. No chest pain, headache, or dizziness. documented in this encounter Plan of Treatment Upcoming Encounters Date Type Department Care Team (Late st Contact Info) Description 08/20/2023 12:30 PM EDT Cardiac Studies Cardiac Studies [address] [place] [address] 08/21/2023 1:00 PM EDT Office Visit Palliative Medicine [facility] [address] [place] [phone] Brielle Schmidt MD [address] [place] [address] [place] [address] 08/22/2023 3:30 PM EDT Telemedicine Orthopaedics [address] [place] [phone] Ankit Castorena MD 132 [facility] [place] [address] 08/26/2023 8:45 AM EDT Imaging Radiology [address] [place] [address] 02/10/2024 1:00 PM EST Imaging Radiology [address] [facility] [address] 02/25/2024 4:00 PM EST Office Visit Urology, [facility] 132 [facility] [address] Cameron Romeo MD [address] [place] [address] [place] [address] 02/26/2024 1:40 PM EST Office Visit Family Medicine [address] [place] [phone] Jody Arora MD [address] [place] [address] [place] [address] 04/09/2024 2:20 PM EST Office Visit Nephrology [address] [place] [address] Rosy Patel MD [address] [place] [address] [place], [place] [address] Health Maintenance Due Date Last Done Comments [...] filedocumented as of this encounter Care Teams Manager Of Employee Relations Relationship Specialty Start Date End Date Jody Arora MD [address] [place] [address] [place] [phone] PCP - General Family Medicine 11/21/21 documented as of this encounter
--- OUTSIDE RECORDS SUMMARY | 2023-08-27 01:20 | External Medical Summary | Summary of Care ---
Author Name Unknown Organization [facility] Address [address] [place] [address] Phone [phone] Care Team Providers Care Sales Representative [employer] Name Role Phone London Perales MD Primary Care Provide r Reason for Visit * Reason Onset Date Comments Advice 08/02/2023 Encounter Details Date Type Department Care Team (Late st Contact Info) Description 08/02/2023 Telephone NephrologyMitzi 200 [facility] [place] [address] PatelRosy fine MD 200 [place] [address] Advice Allergies No known active allergiesdocumented as [...] 2017 classification ([facility]) INHALE 1 DOSE BY MOUTH IN THE MORNING AND 1 AT BEDTIME 60 Each 05/28/2023 Active Ventolin HFA 108 (90 Base) MCG/ACT Inhalation Aerosol SolutionIndications: COPD, group D, by GOLD 2017 classification ([facility]) Inhale 2 Puffs by mouth every 4 hours as needed for Wheezing. 18 g 2 05/28/2023 Active Albuterol Sulfate (2.5 MG/3ML) 0.083% Inhalation Nebulization Solution (Proventil)Indicatio ns:COPD, group D, by GOLD 2017 classification ([facility]) Inhale 1 Vial via nebulizer every [...] for 5 days. 10 Tablet 08/07/2023 Active Hospital, Clinic, or Other Facility Administered Medication Ordered Dose Route Frequency Start Date End Date Status Albuterol Sulfate (Proventil) (5 MG/ML) 0.5% *conc* inhalation solution 2.5 mgIndications:Chronic hypoxemic respiratory failure (HCC),COPD, group C, by GOLD 2017 classification ([facility]),[place]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) 2.5 mg NEBULIZER PRN 04/24/2023 04/23/2024 Active Albuterol Sulfate (Proventil) (2.5 MG/3ML) 0.083% inhalation solution 2.5 mgIndications:Chronic hypoxemic respiratory failure (HCC),COPD, group C, by GOLD 2017 classification ([facility]),[place]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) 2.5 mg NEBULIZER PRN 04/24/2023 04/23/2024 Active documented as of this encounter (statuses as of 08/07/2023) Active Problems Problem Noted Date Diagnosed Date COPD, group D, by GOLD 2017 classification 04/29 Overview: Per COPD GOLD Classification [place]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 States he was advised he was not a surgical candidate. Carotid stenosis, right 07/11/2017 History of stroke 07/11/2017 Overview: TIA vs lacunar stroke diagnosed on head CT in [place] Apr 2017. Follow up MRI [facility] [...] encounter Miscellaneous Notes * Addendum Note - London Perales MD - 08/07/2023 8:15 AM EDTAddended by: LONDON PERALES on: 08/07/2023 08:15 AM Modules accepted: Orders * Telephone Encounter - London Perales MD - 08/07/2023 8:15 AM EDT Ordered * Telephone Encounter - Elisa Mcmahon CMA - 08/06/2023 1:53 PM EDT He is ok with the CXR and the course of prednisone. Please send them . * Telephone Encounter - London Perales MD - 08/06/2023 10:26 AM EDT I recommend getting a CXR to evaluate his cough Regarding his shoulder pain - I recommend trying another course of prednisone if pt willing but shorter course Clinical note: -pt did have a steroid injection to his shoulder recently * Telephone Encounter - Elisa Mcmahon CMA - 08/05/2023 3:37 PM EDT I spoke to him and he is telling me today that he thinks the coughing and difficulty breathing happened because he was too hot. He states he still hacks stuff up. He is more concerned with his shoulder. He was supposed to have the MRI but he "chickened out". He is in pain from his shoulder and wants to know if he can have anything for pain. He is concerned he can't sit through dialysis without something. * Telephone Encounter - London Perales MD - 08/05/2023 9:01 AM EDT Can we call the pt to see how he is doing * Telephone Encounter - Nancy Seals LPN - 08/02/2023 4:06 PM EDT Pt called back Spoke with PCP's office He is to watch cough Take dialysis in AM If s/s worsen to EDWill f/u on Saturday to see how pt is doing and to start process for reschedule of MRI Dr Amanda STEPHENSON Please return encounter to renal nurses for f/u * Telephone Encounter - Melita Frank OSA - 08/02/2023 4:03 PM EDT Pt returning call * Telephone Encounter - Nancy Seals LPN - 08/02/2023 3:43 PM EDT Spoke with Pt states he is coughing up green sputum that is slightly yellow at times feels like he did when he got pnx Pt is advised will deal with MRI rescheduling after we get his cough taken care of first Pt denies fever or chills but states l"ast night felt warm and I had to turn on my air conditioner " Pt is advised to contact PCP/or pulmonology now as it it Saturday Per Dr Patel pt is to keep HD apt tomorrow will be helpful with removing fluid He will do so and contact our office with f/u * Telephone Encounter - Rosy Patel MD - 08/02/2023 3:30 PM EDT Pls call pt >recommend HD in am to keep him breathing as best we can to help w/ fluid on the lungs >recommend contacting PCP and/or pulmonary re worsening productive cough TODAY/NOW >would deal with breathing /cough first and revisit MRI next week >>if he gets both of above dealt with, can approach PCP and/or ordering provider about anxiety w/ MRI >>pls forward to PCP's nurse Dr Mayra STEPHENSON * Telephone Encounter - Galina Gray LPN - 08/02/2023 3:03 PM EDT Patient called asking to speak with Dr. Patel Attempted to transfer patient to Nephrology but unable to contact anyone He states that he is to go to dialysis tomorrow but he is not feeling well He was too anxious to get his MRI done today He is spitting up the stuff like he was when he had pneumonia He is asking for Dr. Patel's advise on this situation He is not sure he should go to dialysis tomorrow Please advise documented in this encounter Plan of Treatment Upcoming Encounters Date Type Department Care Team (Late st Contact Info) Description 08/20/2023 12:30 PM EDT Cardiac Studies Cardiac Studies [address] [place] [id number] 08/21/2023 1:00 PM EDT Office Visit Palliative Medicine [place] [place] 200 [place] [address] Brielle Schmidt MD 400 [facility] [place] [address] 08/22/2023 3:30 PM EDT Telemedicine Orthopaedics [address] [phone] Ankit Castorena MD 132 [facility] [place] [address] 02/10/2024 1:00 PM EST Imaging Radiology [address] 132 [facility] [place] [address] 02/25/2024 4:00 PM EST Office Visit Urology, [facility] 132 [facility] [place] [address] Cameron Romeo MD [address] [place] [address] [place] [address] 02/26/2024 1:40 PM EST Office Visit Family Medicine [address] [phone] London Perales MD [address] [place] [address] [place] [address] 04/09/2024 2:20 PM EST Office Visit Nephrology [address] [place] [address] Rosy Patel MD 200 [facility] [place] [address] Scheduled Orders Name Type Priority Associated Diagnoses Orde r Schedule XR CHEST 2 VIEWS Medical Imaging Routine Acute cough Ordered: 08/07/2023 Health Maintenance Due Date Last Done Comments [...] as of this encounter Visit Diagnoses Diagnosis Arthralgia of shoulder, unspecified laterality- Primary Acute cough documented in this encounter Care Teams Sales Representative [employer] Relationship Specialty Start Date End Date London Perales MD [address] [place] [address] [place] [address] PCP - General Family Medicine 11/21/21 documented as of this encounter
--- OUTSIDE RECORDS SUMMARY | 2023-08-27 01:20 | External Medical Summary | Summary of Care ---
Author Name Unknown Organization [facility] Address [address] [place] [address] Phone [phone] Care Team Providers Care Vice President & General Manager [employer] Name Role Phone Jody Arora MD Primary Care Provide r Reason for Visit * Reason Onset Date Comments Advice 08/02/2023 Encounter Details Date Type Department Care Team (Late st Contact Info) Description 08/02/2023 Telephone NephrologyMitzi 200 [facility] [place] [address] PatelRosy fine MD 200 [place] [address] Advice Allergies No known active allergiesdocumented as of this encounter (statuses as of 08/06/2023) Medications Medication Sig Dispensed Refills Start Date [...] 2017 classification ([facility]) INHALE 1 DOSE BY MOUTH IN THE MORNING AND 1 AT BEDTIME 60 Each 05/28/2023 Active Ventolin HFA 108 (90 Base) MCG/ACT Inhalation Aerosol SolutionIndications: COPD, group D, by GOLD 2017 classification ([facility]) Inhale 2 Puffs by mouth every 4 hours as needed for Wheezing. 18 g 2 05/28/2023 Active Albuterol Sulfate (2.5 MG/3ML) 0.083% Inhalation Nebulization Solution (Proventil)Indicatio ns:COPD, group D, by GOLD 2017 classification ([facility]) Inhale 1 Vial via nebulizer every 4 [...] follow package directions 21 Tablet 07/27/2023 Active Hospital, Clinic, or Other Facility Administered Medication Ordered Dose Route Frequency Start Date End Date Status Albuterol Sulfate (Proventil) (5 MG/ML) 0.5% *conc* inhalation solution 2.5 mgIndications:Chronic hypoxemic respiratory failure (HCC),COPD, group C, by GOLD 2017 classification ([facility]),[place]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) 2.5 mg NEBULIZER PRN 04/24/2023 04/23/2024 Active Albuterol Sulfate (Proventil) (2.5 MG/3ML) 0.083% inhalation solution 2.5 mgIndications:Chronic hypoxemic respiratory failure (HCC),COPD, group C, by GOLD 2017 classification ([facility]),[place]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) 2.5 mg NEBULIZER PRN 04/24/2023 04/23/2024 Active documented as of this encounter (statuses as of 08/06/2023) Active Problems Problem Noted Date Diagnosed Date COPD, group D, by GOLD 2017 classification 04/29 Overview: Per COPD GOLD Classification [place] miners' pneumoconiosis 04/24/2023 Papillary renal cell carcinoma [...] renal mass 07/11/2017 Overview: 2018 biopsy at [facility] per patient "kidney cancer". States he was advised he was not a surgical candidate. Carotid stenosis, right 07/11/2017 History of stroke 07/11/2017 Overview: TIA vs lacunar stroke diagnosed on head CT in [place] Apr 2017. Follow up MRI [facility] no infarct. Anxiety 07/11/2017 HTN, goal below 140/90 08/02/2015 Coronary artery disease Dyslipidemia, goal LDL below 100 documented as of this encounter (statuses as of 08/06/2023) Resolved Problems Problem Noted Date Diagnosed Date [...] as of this encounter (statuses as of 08/06/2023) Immunizations Name Administration Dates Next Due COVID-19 [...] send them . * Telephone Encounter - Jody Arora MD - 08/06/2023 10:26 AM EDT I [...] dialysis without something. * Telephone Encounter - Jody Arora MD - 08/05/2023 9:01 AM EDT Can [...] 12:30 PM EDT Cardiac Studies Cardiac Studies [address] [place] [address] 08/21/2023 1:00 PM EDT Office Visit Palliative Medicine [facility] [address] [place] [phone] Brielle Schmidt MD [address] [place], [place] [address] [address] 08/22/2023 3:30 PM EDT Telemedicine Orthopaedics [address] [phone] Ankit Castorena MD [address] [place] [address] 02/10/2024 1:00 PM EST Imaging Radiology [address] 132 [place] [address] 02/25/2024 4:00 PM EST Office Visit Urology, [facility] [address] [place] [address] Cameron Romeo MD [address] [place] [address] [place] [address] 02/26/2024 1:40 PM EST Office Visit Family Medicine [address] [place] [phone] Jody Arora MD [address] [place] [address] [place] [address] 04/09/2024 2:20 PM EST Office Visit Nephrology [address] [place] [address] Rosy Patel MD [address] [facility] [address] Health Maintenance Due Date Last Done Comments [...] filedocumented as of this encounter Care Teams Vice President & General Manager [employer] Relationship Specialty Start Date End Date Jody Arora MD [address] [place] [address] [place] [address] PCP - General Family Medicine 11/21/21 documented as of this encounter
--- OUTSIDE RECORDS SUMMARY | 2023-08-27 01:20 | External Medical Summary | Summary of Care ---
Author Name Unknown Organization [facility] Address [address] [facility] [address] Phone [phone] Care Team Providers Care Mixed Livestock Farmer Name Role Phone Jody Arora MD Primary Care Provide r Reason for Visit * Reason Onset Date Comments Advice 08/07/2023 Encounter Details Date Type Department Care Team (Late st Contact Info) Description 08/07/2023 Telephone Family [address] [place] [address] Jody Arora MD [address] [place] [address] [place] [address] Advice Allergies No known [...] C, by GOLD 2017 classification ([facility]) Inhale 3 mL via nebulizer every 4 [...] OPD, group C, by GOLD 2017 classification ([facility]) INHALE 1 DOSE BY MOUTH IN THE MORNING AND 1 AT BEDTIME 60 Each 05/28/2023 Active Ventolin HFA 108 (90 Base) MCG/ACT Inhalation Aerosol SolutionIndications: COPD, group D, by GOLD 2017 classification ([facility]) Inhale 2 Puffs by mouth every 4 hours as needed for Wheezing. 18 g 2 05/28/2023 Active Albuterol Sulfate (2.5 MG/3ML) 0.083% Inhalation Nebulization Solution (Proventil)Indicatio ns:COPD, group D, by GOLD 2017 classification ([facility]) Inhale 1 Vial via nebulizer every 4 [...] C, by GOLD 2017 classification ([facility]),[place]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) 2.5 mg NEBULIZER PRN 04/24/2023 04/23/2024 Active Albuterol Sulfate (Proventil) (2.5 MG/3ML) 0.083% inhalation solution 2.5 mgIndications:Chronic hypoxemic respiratory failure (HCC),COPD, group C, by GOLD 2017 classification ([facility]),[place]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) 2.5 mg NEBULIZER PRN 04/24/2023 04/23/2024 Active documented as of this encounter (statuses as of 08/07/2023) Active Problems Problem Noted Date Diagnosed Date COPD, group D, by GOLD 2017 classification 04/29 Overview: Per COPD GOLD Classification [place] miners' pneumoconiosis 04/24/2023 Papillary renal cell carcinoma [...] 07/11/2017 Overview: 2018 biopsy at [facility] per patient "kidney cancer". States he was advised he was not a surgical candidate. Carotid stenosis, right 07/11/2017 History of stroke 07/11/2017 Overview: TIA vs lacunar stroke diagnosed on head CT in [place] Apr 2017. Follow up MRI [facility] no infarct. Anxiety 07/11/2017 HTN, goal below [...] Encounter - Jody Arora MD - 08/07/2023 9:36 AM EDT Per pt's daughter - pt is still [...] 12:30 PM EDT Cardiac Studies Cardiac Studies [address] [place] [phone] 08/21/2023 1:00 PM EDT Office Visit Palliative Medicine [facility] 200 [place] [address] Brielle Schmidt MD [address] [place] [address] [place] [phone] 08/22/2023 3:30 PM EDT Telemedicine Orthopaedics [address] [phone] Ankit Castorena MD [address] [place] [address] 02/10/2024 1:00 PM EST Imaging Radiology [facility] 132 [facility] [place] [address] 02/25/2024 4:00 PM EST Office Visit Urology, [facility] 132 [facility] [place] [address] Cameron Romeo MD 27 [facility] 270 [place] [address] 02/26/2024 1:40 PM EST Office Visit Family Medicine [address] [phone] Jody Arora MD [address] [place] [address] [place] [address] 04/09/2024 2:20 PM EST Office Visit Nephrology [address] [place] [address] Rosy Patel MD 200 [facility] [address] Scheduled Orders Name Type Priority Associated Diagnoses Orde r Schedule XR C SPINE 4-5 VIEWS Medical Imaging Routine Neck pain Ordered: 08/07/2023 Health Maintenance Due Date Last [...] as of this encounter Visit Diagnoses Diagnosis Neck pain- Primary Cervicalgia Phobia, unspecified type documented in this encounter Care Teams Mixed Livestock Farmer Relationship Specialty Start Date End Date Jody Arora MD [address] [place] [address] [place] [address] PCP - General Family Medicine 11/21/21 documented as of this encounter
--- OUTSIDE RECORDS SUMMARY | 2023-08-27 01:20 | External Medical Summary | Summary of Care ---
Author Name Unknown Organization [facility] Address [address] [place] [address] Phone [phone] Care Team Providers Care Window Sash Installer Name Role Phone Jody Arora MD Primary Care Provide r Reason for Visit * Reason Onset Date Comments MyCode Consent 08/07/2023 Encounter Details Date Type Department Care Team (Late st Contact Info) Description 08/07/2023 Orders Only Outcomes Research Department [address] [place] [address] Kathy Bedoya CHRA MyCode Research Other*[id number]* Allergies No known active allergiesdocumented as of [...] group C, by GOLD 2017 classification ([facility]) INHALE 1 DOSE BY MOUTH IN THE MORNING AND 1 AT BEDTIME 60 Each 05/28/2023 Active Ventolin HFA 108 (90 Base) MCG/ACT Inhalation Aerosol SolutionIndications: COPD, group D, by GOLD 2017 classification ([facility]) Inhale 2 Puffs by mouth every 4 hours as needed for Wheezing. 18 g 2 05/28/2023 Active Albuterol Sulfate (2.5 MG/3ML) 0.083% Inhalation Nebulization Solution (Proventil)Indicatio ns:COPD, group D, by GOLD 2017 classification ([facility]) Inhale 1 Vial via nebulizer every 4 [...] group C, by GOLD 2017 classification ([facility]),[place] miners' lung ([facility]) 2.5 mg NEBULIZER PRN 04/24/2023 04/23/2024 Active Albuterol Sulfate (Proventil) (2.5 MG/3ML) 0.083% inhalation solution 2.5 mgIndications:Chronic hypoxemic respiratory failure (HCC),COPD, group C, by GOLD 2017 classification ([facility]),[place] miners' lung ([facility]) 2.5 mg NEBULIZER PRN 04/24/2023 04/23/2024 Active documented as of this encounter (statuses as of 08/07/2023) Active Problems Problem Noted Date Diagnosed Date COPD, group D, by GOLD 2017 classification 04/29 Overview: Per COPD GOLD Classification [place] miners' pneumoconiosis 04/24/2023 Papillary renal cell carcinoma [...] 2018 biopsy at [facility] per patient "kidney cancer". States he was advised he was not a surgical candidate. Carotid stenosis, right 07/11/2017 History of stroke 07/11/2017 Overview: TIA vs lacunar stroke diagnosed on head CT in [place] Apr 2017. [facility] [...] as of this encounter Progress Notes * Kathy Bedoya CHRA - 08/07/2023 8:29 AM EDT [employer] Consent Documentation Justin Pinedo provided consent/authorization to participate in the [employer]. documented in this encounter Plan of Treatment Upcoming Encounters Date Type Department Care Team (Late st Contact Info) Description 08/20/2023 12:30 PM EDT Cardiac Studies Cardiac Studies [address] [place] [address] 08/21/2023 1:00 PM EDT Office Visit Palliative Medicine [facility] [address] [place] [address] Brielle Schmidt MD [address] [place], [place] [address] [address] 08/22/2023 3:30 PM EDT Telemedicine Orthopaedics [address] [phone] Ankit Castorena MD [address] [place] [address] 02/10/2024 1:00 PM EST Imaging Radiology [address] [place] [address] 02/25/2024 4:00 PM EST Office Visit Urology, [facility] [address] [place] [address] Cameron Romeo MD [address] [place] [address] [place] [address] 02/26/2024 1:40 PM EST Office Visit Family Medicine [address] [place] [address] Jody Arora MD [address] [place] [address] [place] [address] 04/09/2024 2:20 PM EST Office Visit Nephrology [address] [place] [address] Rosy Patel MD [address] [place] [address] Scheduled Orders Name Type Priority Associated Diagnoses Orde r Schedule MYCODE INITIAL ADULT Lab Routine MyCode Research Other*[id number] Expected: 08/07/2023 (Approximate), Expires: 08/26/2024 Health Maintenance Due Date Last Done Comments Alpha-1 Antitrypsin 1958 *COPD SEVERITY VERIFIED BY PFT 07/16/2020 Hepatitis B (3 of 3 - 19+ 3-dose series) 03/20/2023 01/23/2023, 01/08/2018 COVID-19 Vaccine ( season) 2023 01/03/2023, 01/10/2021, 05/24/2020, Additional history exists GFR 01/23/2024 07/23/2023, 06/17, 07/04/2023, Additional history exists Depression Screening 05/19/2024 05/20/2023 Hgb 06/19/2024 06/20/2023, 1203/2022, 12/24/2022, Additional history exists Albumin/Creatinine Ratio 07/09/2024 [...] as of this encounter Visit Diagnoses Diagnosis MyCode Research Other*[id number]- Primary documented in this encounter Care Teams Window Sash Installer Relationship Specialty Start Date End Date Jody Arora MD [address] [place] [address] [place] [address] PCP - General Family Medicine 11/21/21 documented as of this encounter
--- OUTSIDE RECORDS SUMMARY | 2023-08-27 01:20 | External Medical Summary | Summary of Care ---
Author Name Unknown Organization [facility] Address [address] [facility] [place] [address] Phone [phone] Care Team Providers Care Key Holder Name Role Phone Jody Arora MD Primary Care Provide r Reason for Visit * Reason Onset Date Comments Med Request 08/05/2023 Encounter Details Date Type Department Care Team (Late st Contact Info) Description 08/05/2023 Telephone Family [address] [place] [address] Jody Arora MD [address] [place] [address] [place] [address] Med Request Allergies No known active [...] classification ([facility]) INHALE 1 DOSE BY MOUTH IN THE MORNING AND 1 AT BEDTIME 60 Each 05/28/2023 Active Ventolin HFA 108 (90 Base) MCG/ACT Inhalation Aerosol SolutionIndications: COPD, group D, by GOLD 2017 classification ([facility]) Inhale 2 Puffs by mouth every 4 hours as needed for Wheezing. 18 g 2 05/28/2023 Active Albuterol Sulfate (2.5 MG/3ML) 0.083% Inhalation Nebulization Solution (Proventil)Indicatio ns:COPD, group D, by GOLD 2017 classification ([facility]) Inhale 1 Vial via nebulizer every [...] 2017 classification ([facility]),[place] miners' lung ([facility]) 2.5 mg NEBULIZER PRN 04/24/2023 04/23/2024 Active Albuterol Sulfate (Proventil) (2.5 MG/3ML) 0.083% inhalation solution 2.5 mgIndications:Chronic hypoxemic respiratory failure (HCC),COPD, group C, by GOLD 2017 classification ([facility]),[place] miners' lung ([facility]) 2.5 mg NEBULIZER PRN 04/24/2023 04/23/2024 Active documented as of this encounter (statuses as of 08/06/2023) Active Problems Problem Noted Date Diagnosed Date COPD, group D, by GOLD 2017 classification 04/29 Overview: Per COPD GOLD Classification 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 States he was advised he was not a surgical candidate. Carotid stenosis, right 07/11/2017 History of stroke 07/11/2017 Overview: TIA vs lacunar stroke diagnosed on head CT in [place] Apr 2017. [facility] [...] Encounter - Jody Arora MD - 08/06/2023 10:25 AM EDT Addressed in the other encounter * Telephone Encounter - Tigist Connor LPN - 08/05/2023 3:24 PM EDT Pt is calling to check on the status of previous message. Please advise. * Telephone Encounter - Tigist Connor LPN - 08/05/2023 1:14 PM EDT Pt is calling. Reports that he is having pain to his right shoulder. States that PCP is aware of the pain he is having. Right shoulder pain is a 9/10. Has not slept for 2 nights. Pain will lessen and become dull to a 7/10. Pt discussed this with Dr. Castorena and was advised to go to the ER or go to the ortho walk in. Pt does not want to do either. Pt is asking if PCP could prescribe something strong for pain to get him through dialysis tomorrow?Dialysis lasts 4 hours. States that he is not driving, Kee takes him back and forth. Does not want prednisone prescribed. States that it will not even touch it. Pharmacy selected. Please advise. documented in this encounter Plan of Treatment Upcoming Encounters Date Type Department Care Team (Alexey st Contact Info) Description 08/20/2023 12:30 PM EDT Cardiac Studies Cardiac Studies [address] [place] [address] 08/21/2023 1:00 PM EDT Office Visit Palliative Medicine [facility] [address] [place] [phone] Brielle Schmidt MD 400 [facility] [address] 08/22/2023 3:30 PM EDT Telemedicine Orthopaedics [address] [phone] Ankit Castorena MD 132 [place] [address] 02/10/2024 1:00 PM EST Imaging Radiology [address] 132 [place] [address] 02/25/2024 4:00 PM EST Office Visit Urology, [facility] 132 [place] [address] Cameron Romeo MD [address] [place] [address] [place] [address] 02/26/2024 1:40 PM EST Office Visit Family Medicine [address] [phone] Jody Arora MD [address] [place] [address] [place] [address] 04/09/2024 2:20 PM EST Office Visit Nephrology [address] [place] [address] Rosy Patel MD [facility] [address] Health Maintenance Due Date Last Done Comments [...] filedocumented as of this encounter Care Teams Key Holder Relationship Specialty Start Date End Date Sellathura, Thiviyanath, MD [address] [place] [address] [place] [address] PCP - General Family Medicine 11/21/21 documented as of this encounter
--- OUTSIDE RECORDS SUMMARY | 2023-08-27 01:21 | External Medical Summary | Summary of Care ---
Author Name Unknown Organization [facility] Address [address] [place] [address] Phone [phone] Care Team Providers Care Marketing Intelligence Manager Name Role Phone Jody Arora MD Primary Care Provide r Reason for Visit * Reason Onset Date Comments Advice 08/02/2023 Encounter Details Date Type Department Care Team (Late st Contact Info) Description 08/02/[address] [place] [address] PatelRosy fine MD [address] [place] [address] Advice Allergies No known active allergiesdocumented as [...] OPD, group C, by GOLD 2017 classification ([facility]) INHALE 1 DOSE BY MOUTH IN THE MORNING AND 1 AT BEDTIME 60 Each 05/28/2023 Active Ventolin HFA 108 (90 Base) MCG/ACT Inhalation Aerosol SolutionIndications: COPD, group D, by GOLD 2017 classification ([facility]) Inhale 2 Puffs by mouth every 4 hours as needed for Wheezing. 18 g 2 05/28/2023 Active Albuterol Sulfate (2.5 MG/3ML) 0.083% Inhalation Nebulization Solution (Proventil)Indicatio ns:COPD, group D, by GOLD 2017 classification ([facility]) Inhale 1 Vial via nebulizer [...] C, by GOLD 2017 classification ([facility]),[place]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) 2.5 mg NEBULIZER PRN 04/24/2023 04/23/2024 Active Albuterol Sulfate (Proventil) (2.5 MG/3ML) 0.083% inhalation solution 2.5 mgIndications:Chronic hypoxemic respiratory failure (HCC),COPD, group C, by GOLD 2017 classification ([facility]),[place]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) 2.5 mg NEBULIZER PRN 04/24/2023 04/23/2024 Active documented as of this encounter (statuses as of 08/06/2023) Active Problems Problem Noted Date Diagnosed Date COPD, group D, by GOLD 2017 classification 04/29 Overview: Per COPD GOLD Classification [place] 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 States he was advised he was not a surgical candidate. Carotid stenosis, right 07/11/2017 History of stroke 07/11/2017 Overview: TIA vs lacunar stroke diagnosed on head CT in [place] Apr 2017. Follow up MRI [facility] no infarct. Anxiety 07/11/2017 HTN, goal below [...] PM EDT Cardiac Studies Cardiac Studies [address] [place] [address] 08/21/2023 1:00 PM EDT Office Visit Palliative Medicine [facility] [address] [place] [address] Brielle Schmidt MD [address] [place] [address] [place] [address] 08/22/2023 3:30 PM EDT Telemedicine Orthopaedics [address] [phone] Ankit Castorena MD [address] [place] [address] 02/10/2024 1:00 PM EST Imaging Radiology [facility] [address] [place] [address] 02/25/2024 4:00 PM EST Office Visit Urology, [facility] [address] [place] [address] Cameron Romeo MD [address] [address] [place] [address] 02/26/2024 1:40 PM EST Office Visit Family Medicine [address] [place] [phone] Jody Arora MD [address] [place] [address] [place] [address] 04/09/2024 2:20 PM EST Office Visit Nephrology [address] [place] [address] Rosy Patel MD 200 [facility] [place], [place] [address] Health Maintenance Due Date Last Done Comments [...] filedocumented as of this encounter Care Teams Marketing Intelligence Manager Relationship Specialty Start Date End Date Jody Arora MD [address] [place] [address] [place] [address] PCP - General Family Medicine 11/21/21 documented as of this encounter
--- OUTSIDE RECORDS SUMMARY | 2023-08-27 01:21 | External Medical Summary | Summary of Care ---
Author Name Unknown Organization [facility] Address [address] [place] [address] Phone [phone] Care Team Providers Care Process Pumper Name Role Phone Jody Arora MD Primary Care Provide r Reason for Visit * Reason Onset Date Comments Med Request 08/05/2023 Right Shoulder P ain - Med request Encounter Details Date Type Department Care Team (Late st Contact Info) Description 08/05/2023 Telephone Orthopaedics [facility] [address] [place] [address] Ankit Castorena MD [address] [place] [address] Med Request (Right Shoulder Pain - Med req... Allergies No known active allergiesdocumented as of this encounter (statuses as of 08/05/2023) Medications Medication Sig Dispensed Refills Start Date [...] 2017 classification ([facility]),[place] miners' lung ([facility]) 2.5 mg NEBULIZER PRN 04/24/2023 04/23/2024 Active Albuterol Sulfate (Proventil) (2.5 MG/3ML) 0.083% inhalation solution 2.5 mgIndications:Chronic hypoxemic respiratory failure (HCC),COPD, group C, by GOLD 2017 classification ([facility]),[place] miners' lung ([facility]) 2.5 mg NEBULIZER PRN 04/24/2023 04/23/2024 Active documented as of this encounter (statuses as of 08/05/2023) Active Problems Problem Noted Date Diagnosed Date COPD, group D, by GOLD 2017 classification 04/29 Overview: Per COPD GOLD Classification [place] 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 States he was advised he was not a surgical candidate. Carotid stenosis, right 07/11/2017 History of stroke 07/11/2017 Overview: TIA vs lacunar stroke diagnosed on head CT in [place] Apr 2017. Follow up MRI [facility] no infarct. Anxiety 07/11/2017 HTN, goal below 140/90 08/02/2015 Coronary artery disease Dyslipidemia, goal LDL below 100 documented as of this encounter (statuses as of 08/05/2023) Resolved Problems Problem Noted Date Diagnosed Date [...] as of this encounter (statuses as of 08/05/2023) Immunizations Name Administration Dates Next Due COVID-19 [...] Encounter - Mary Burch MED ASSIST - 08/05/2023 1:15 PM EDT Called and spoke with patient, Advised patient if he is having severe pain should present to the ERfor evaluation. Patient has declined this and is asking for pain meds to get through dialysis tomorrow. Advised him we do not prescribe pain meds but he may contact his PCP, he states he will contactthem. * Telephone Encounter - Sameera Montoya OSA - 08/05/2023 1:12 PM EDT Adv pt to go to ER for eval. Also adv pt or ortho urgent care walk in clinic for assistance. * Telephone Encounter - Lucita Matt paper cone maker - 08/05/2023 10:04 AM EDT Patient calling again requesting to speak with Dr Castorena nurse regarding his shoulder pain. Pt ph [phone] Thank you, Lucita Matt Aix Administrator [facility] 08/05/2023,10:04 AM * Telephone Encounter - Cayla Swan paper cone maker - 08/05/2023 8:22 AM EDT Pt calling again that his pain is 9.5 and he can't have his dialysis tomorrow because of his shoulder pain. Pt is asking for pain medicine TAMI. Please call pt at [phone] to discuss. * Telephone Encounter - Lucita Harvey OSA - 08/05/2023 8:12 AM EDT Pt calling stating that his pain in his right shoulder is not getting any better. Pt was supposed to have an MRI and pt states he was not able to do so. Pt would like to know if provider can prescribe any medication. Please reach out to pt. documented in this encounter Plan of Treatment Upcoming Encounters Date Type Department Care Team (Late st Contact Info) Description 08/20/2023 12:30 PM EDT Cardiac Studies Cardiac Studies [address] [place] [address] 08/21/2023 1:00 PM EDT Office Visit Palliative Medicine [facility] [address] [place] [address] Brielle Schmidt MD [address] [place] [address] 08/22/2023 3:30 PM EDT Telemedicine Orthopaedics [address] [phone] Ankit Castorena MD 132 [facility] [place] [address] 02/10/2024 1:00 PM EST Imaging Radiology [address] 132 [facility] [place] [address] 02/25/2024 4:00 PM EST Office Visit Urology, [facility] [address] [place] [address] Cameron Romeo MD 27 [facility] [place] [address] [place] [address] 02/26/2024 1:40 PM EST Office Visit Family Medicine [address] [place] [phone] Jody Arora MD [address] [place] [address] [place] [address] 04/09/2024 2:20 PM EST Office Visit Nephrology [address] [place] [address] Rosy Patel MD [address] [facility] [address] Health Maintenance Due Date Last Done Comments [...] as of this encounter Care Teams Process Pumper Relationship Specialty Start Date End Date Jody Arora MD [address] [place] [address] [place] [address] PCP - General Family Medicine 11/21/21 documented as of this encounter
--- OUTSIDE RECORDS SUMMARY | 2023-08-27 01:21 | External Medical Summary | Summary of Care ---
Author Name Unknown Organization [facility] Address [address] [place] [address] Phone [phone] Care Team Providers Care Psychology Technician Name Role Phone Jody Arora MD Primary Care Provide r Reason for Visit * Reason Onset Date Comments Advice 08/02/2023 Encounter Details Date Type Department Care Team (Late st Contact Info) Description 08/02/2023 Telephone NephrologyMitzi 200 [facility] [place] [address] PatelRosy fine MD [address] [place] [address] Advice Allergies No known active allergiesdocumented as [...] OPD, group C, by GOLD 2017 classification ([facility]) INHALE 1 DOSE BY MOUTH IN THE MORNING AND 1 AT BEDTIME 60 Each 05/28/2023 Active Ventolin HFA 108 (90 Base) MCG/ACT Inhalation Aerosol SolutionIndications: COPD, group D, by GOLD 2017 classification ([facility]) Inhale 2 Puffs by mouth every 4 hours as needed for Wheezing. 18 g 2 05/28/2023 Active Albuterol Sulfate (2.5 MG/3ML) 0.083% Inhalation Nebulization Solution (Proventil)Indicatio ns:COPD, group D, by GOLD 2017 classification ([facility]) Inhale 1 Vial via [...] (HCC),COPD, group C, by GOLD 2017 classification ([facility]),[place]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) 2.5 mg NEBULIZER PRN 04/24/2023 04/23/2024 Active Albuterol Sulfate (Proventil) (2.5 MG/3ML) 0.083% inhalation solution 2.5 mgIndications:Chronic hypoxemic respiratory failure (HCC),COPD, group C, by GOLD 2017 classification ([facility]),[place]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) 2.5 mg NEBULIZER PRN 04/24/2023 04/23/2024 Active documented as of this encounter (statuses as of 08/05/2023) Active Problems Problem Noted Date Diagnosed Date COPD, group D, by GOLD 2017 classification 04/29 Overview: Per COPD GOLD Classification [place] 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 States he was advised he was not a surgical candidate. Carotid stenosis, right 07/11/2017 History of stroke 07/11/2017 Overview: TIA vs lacunar stroke diagnosed on head CT in [place] Apr 2017. Follow up MRI [facility] [...] 12:30 PM EDT Cardiac Studies Cardiac Studies [address] [place] [address] 08/21/2023 1:00 PM EDT Office Visit Palliative Medicine [facility] 200 [facility], [place] [address] Brielle Schmidt MD [address] [place] [address] [place] [address] 08/22/2023 3:30 PM EDT Telemedicine Orthopaedics [address] [phone] Ankit Castorena MD 132 [facility] [place] [address] 02/10/2024 1:00 PM EST Imaging Radiology [facility] 132 [facility] [place] [address] 02/25/2024 4:00 PM EST Office Visit Urology, [facility] 132 [facility] [place] [address] Cameron Romeo MD 27 [facility] [address] [place] [address] 02/26/2024 1:40 PM EST Office Visit Family Medicine [address] [phone] Jody Arora MD [address] [place] [address] [place] [address] 04/09/2024 2:20 PM EST Office Visit Nephrology [address] [place] [address] Rosy Patel MD 200 [facility] [place] [address] Health Maintenance Due Date Last Done Comments [...] filedocumented as of this encounter Care Teams Psychology Technician Relationship Specialty Start Date End Date Jody Arora MD [address] [place] [address] [place] [phone] PCP - General Family Medicine 11/21/21 documented as of this encounter
--- OUTSIDE RECORDS SUMMARY | 2023-08-27 01:21 | External Medical Summary | Summary of Care ---
Author Name Unknown Organization [facility] Address [address] [place] [address] Phone [phone] Care Team Providers Care Dumpcart Driver Name Role Phone Jody Arora MD Primary Care Provide r Reason for Visit * Reason Onset Date Comments Advice 08/02/2023 Encounter Details Date Type Department Care Team (Late st Contact Info) Description 08/02/[address] [place] [address] PatelRosy fine MD 200 [place] [address] Advice Allergies No known active allergiesdocumented as of this encounter (statuses as of 08/02/2023) Medications Medication Sig Dispensed Refills Start Date End Date Status nitroglycerin (NITROSTAT) 0.4 MG SUBL 1 Tablet. 0 08/19/2018 Active Melatonin 10 MG Oral Capsule [...] BEFORE BEDTIME 120 Tablet 0 04/15/2023 Active Rosuvastatin Calcium 10 MG Oral Tablet (Crestor) Take 1 Tablet by mouth in the morning. 90 Tablet 1 04/16/2023 Active oxygen IN GAS Use 4 L/min(Oxygen) as directed. Uses "in the evening" 0 Active hydrOXYzine HCl 50 MG Oral TabletIndications:Pr imary insomnia TAKE 1 TABLET BY MOUTH AT BEDTIME NEEDED FOR INSOMNIA 30 Tablet 3 05/13/2023 Active Fluticasone-Salmeter ol 250-50 MCG/ACT Inhalation Aerosol Powder Breath Activated (Advair Diskus)Indications:C OPD, group C, by GOLD 2017 classification ([facility]) INHALE 1 DOSE BY MOUTH IN THE MORNING AND 1 AT BEDTIME 60 Each 0 05/28/2023 Active Ventolin HFA 108 (90 Base) MCG/ACT Inhalation Aerosol SolutionIndications: COPD, group D, by GOLD 2017 classification ([facility]) Inhale 2 Puffs by mouth every 4 hours as needed for Wheezing. 18 g 2 05/28/2023 Active Albuterol Sulfate (2.5 MG/3ML) 0.083% Inhalation Nebulization Solution (Proventil)Indicatio ns:COPD, group D, by GOLD 2017 classification ([facility]) Inhale 1 Vial via nebulizer every 4 hours as needed for Wheezing. 100 mL 1 05/28/2023 Active Albuterol Sulfate (2.5 MG/3ML) 0.083% Inhalation Nebulization Solution (Proventil)Indicatio ns:Pneumonia due to COVID-19 virus Inhale 1 Vial via nebulizer every 6 hours as needed for Wheezing. 360 mL 0 06/20/2023 Active Torsemide 20 MG Oral Tablet [...] (Medrol Dosepack) follow package directions 21 Tablet 0 07/27/2023 Active Hospital, Clinic, or Other Facility Administered Medication Ordered Dose Route Frequency Start Date End Date Status Albuterol Sulfate (Proventil) (5 MG/ML) 0.5% *conc* inhalation solution 2.5 mgIndications:Chronic hypoxemic respiratory failure (HCC),COPD, group C, by GOLD 2017 classification ([facility]),[place] miners' lung ([facility]) 2.5 mg NEBULIZER PRN 04/24/2023 04/23/2024 Active Albuterol Sulfate (Proventil) (2.5 MG/3ML) 0.083% inhalation solution 2.5 mgIndications:Chronic hypoxemic respiratory failure (HCC),COPD, group C, by GOLD 2017 classification ([facility]),[place] miners' lung ([facility]) 2.5 mg NEBULIZER PRN 04/24/2023 04/23/2024 Active documented as of this encounter (statuses as of 08/02/2023) Active Problems Problem Noted Date Diagnosed Date COPD, group D, by GOLD 2017 classification 04/29 Overview: Per COPD GOLD Classification [place] 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 States he was advised he was not a surgical candidate. Carotid stenosis, right 07/11/2017 History of stroke 07/11/2017 Overview: TIA vs lacunar stroke diagnosed on head CT in [place] Apr 2017. Follow up MRI [facility] no infarct. Anxiety 07/11/2017 HTN, goal below 140/90 08/02/2015 Coronary artery disease Dyslipidemia, goal LDL below 100 documented as of this encounter (statuses as of 08/02/2023) Resolved Problems Problem Noted Date Diagnosed Date [...] as of this encounter (statuses as of 08/02/2023) Immunizations Name Administration Dates Next Due COVID-19 [...] 12:30 PM EDT Cardiac Studies Cardiac Studies [address] [place] [address] 08/21/2023 1:00 PM EDT Office Visit Palliative Medicine [facility] 200 [place] [phone] Brielle Schmidt MD [address] [place], [place] [address] [address] 08/22/2023 3:30 PM EDT Telemedicine Orthopaedics [address] [place] [phone] Ankit Castorena MD [address] [place] [address] 02/10/2024 1:00 PM EST Imaging Radiology [facility] 1st [facility] [place] [address] 02/25/2024 4:00 PM EST Office Visit Urology, [facility] 132 [facility] [place] [address] Cameron Romeo MD [address] [place] [address] [place] [address] 02/26/2024 1:40 PM EST Office Visit Family Medicine [address] [place] [phone] Jody Arora MD [address] [place] [address] [place] [address] 04/09/2024 2:20 PM EST Office Visit Nephrology [address] [place] [address] Rosy Patel MD [address] [facility] [address] Health Maintenance Due Date Last Done Comments Alpha-1 Antitrypsin 1958 *COPD SEVERITY VERIFIED BY PFT 07/16/2020 Hepatitis B (3 of 3 - 19+ 3-dose series) 03/20/2023 01/23/2023, 01/08/2018 GFR 01/23/2024 07/23/2023, 06/17, 07/04/2023, Additional history [...] filedocumented as of this encounter Care Teams Dumpcart Driver Relationship Specialty Start Date End Date Jody Arora MD [address] [place] [address] [place] [address] PCP - General Family Medicine 11/21/21 documented as of this encounter
--- OUTSIDE RECORDS SUMMARY | 2023-08-27 01:21 | External Medical Summary | Summary of Care ---
Author Name Unknown Organization [facility] Address [address] [place] [address] Phone [phone] Care Team Providers Care Machine Bookkeeper Name Role Phone Jody Arora MD Primary Care Provide r Reason for Visit * Reason Onset Date Comments Advice 08/02/2023 Encounter Details Date Type Department Care Team (Late st Contact Info) Description 08/02/2023 Telephone NephrologyMitzi 200 [facility] [place] [address] PatelRosy fine MD 200 [place] [address] Advice Allergies No known active allergiesdocumented as [...] OPD, group C, by GOLD 2017 classification ([facility]) INHALE 1 DOSE BY MOUTH IN THE MORNING AND 1 AT BEDTIME 60 Each 05/28/2023 Active Ventolin HFA 108 (90 Base) MCG/ACT Inhalation Aerosol SolutionIndications: COPD, group D, by GOLD 2017 classification ([facility]) Inhale 2 Puffs by mouth every 4 hours as needed for Wheezing. 18 g 2 05/28/2023 Active Albuterol Sulfate (2.5 MG/3ML) 0.083% Inhalation Nebulization Solution (Proventil)Indicatio ns:COPD, group D, by GOLD 2017 classification ([facility]) Inhale 1 Vial via nebulizer every [...] by GOLD 2017 classification ([facility]),[place]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) 2.5 mg NEBULIZER PRN 04/24/2023 04/23/2024 Active Albuterol Sulfate (Proventil) (2.5 MG/3ML) 0.083% inhalation solution 2.5 mgIndications:Chronic hypoxemic respiratory failure (HCC),COPD, group C, by GOLD 2017 classification ([facility]),[place]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) 2.5 mg NEBULIZER PRN 04/24/2023 04/23/2024 Active documented as of this encounter (statuses as of 08/05/2023) Active Problems Problem Noted Date Diagnosed Date COPD, group D, by GOLD 2017 classification 04/29 Overview: Per COPD GOLD Classification [place] 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 States he was advised he was not a surgical candidate. Carotid stenosis, right 07/11/2017 History of stroke 07/11/2017 Overview: TIA vs lacunar stroke diagnosed on head CT in [place] Apr 2017. Follow [facility] [...] process for reschedule of MRI Dr Amanda STEPHENOSN Please return encounter to renal nurses for [...] 12:30 PM EDT Cardiac Studies Cardiac Studies [address] [place] [address] 08/21/2023 1:00 PM EDT Office Visit Palliative Medicine [facility] 200 [place] [address] Brielle Schmidt MD 400 [facility] [place] [address] 08/22/2023 3:30 PM EDT Telemedicine Orthopaedics [address] [phone] Ankit Castorena MD 132 [facility] [place] [address] 02/10/2024 1:00 PM EST Imaging Radiology [address] 132 [facility] [place] [address] 02/25/2024 4:00 PM EST Office Visit Urology, [facility] 132 [facility] [place] [address] Cameron Romeo MD [address] [place] [address] [place] [address] 02/26/2024 1:40 PM EST Office Visit Family Medicine [address] [phone] Jody Arora MD [address] [place] [address] [place] [address] 04/09/2024 2:20 PM EST Office Visit Nephrology [address] [place] [address] Rosy Patel MD 200 [facility] [place], [place] [phone] Health Maintenance Due Date Last Done Comments [...] filedocumented as of this encounter Care Teams Machine Bookkeeper Relationship Specialty Start Date End Date Jody Arora MD [address] [place] [address] [place] [address] PCP - General Family Medicine 11/21/21 documented as of this encounter
--- OUTSIDE RECORDS SUMMARY | 2023-08-27 01:21 | External Medical Summary | Summary of Care ---
Author Name Unknown Organization [facility] Address [address] [place] [address] Phone [phone] Care Team Providers Care Machine Egg Washer Name Role Phone Jody Arora MD Primary Care Provide r Reason for Visit * Reason Onset Date Comments Advice 08/02/2023 Encounter Details Date Type Department Care Team (Late st Contact Info) Description 08/02/2023 Telephone NephrologyMitzi 200 [facility] [place] [address] PatelRosy fine MD 200 [place] [address] Advice Allergies No known active allergiesdocumented as [...] group C, by GOLD 2017 classification ([facility]) INHALE 1 DOSE BY MOUTH IN THE MORNING AND 1 AT BEDTIME 60 Each 0 05/28/2023 Active Ventolin HFA 108 (90 Base) MCG/ACT Inhalation Aerosol SolutionIndications: COPD, group D, by GOLD 2017 classification ([facility]) Inhale 2 Puffs by mouth every 4 hours as needed for Wheezing. 18 g 2 05/28/2023 Active Albuterol Sulfate (2.5 MG/3ML) 0.083% Inhalation Nebulization Solution (Proventil)Indicatio ns:COPD, group D, by GOLD 2017 classification ([facility]) Inhale 1 Vial via nebulizer [...] group C, by GOLD 2017 classification ([facility]),[place] miners' lung ([facility]) 2.5 mg NEBULIZER PRN 04/24/2023 04/23/2024 Active Albuterol Sulfate (Proventil) (2.5 MG/3ML) 0.083% inhalation solution 2.5 mgIndications:Chronic hypoxemic respiratory failure (HCC),COPD, group C, by GOLD 2017 classification ([facility]),[place] miners' lung ([facility]) 2.5 mg NEBULIZER PRN 04/24/2023 04/23/2024 Active documented as of this encounter (statuses as of 08/02/2023) Active Problems Problem Noted Date Diagnosed Date COPD, group D, by GOLD 2017 classification 04/29 Overview: Per COPD GOLD Classification [facility] miners' pneumoconiosis 04/24/2023 Papillary renal cell carcinoma [...] Overview: 2018 biopsy at [facility]/[place] per patient "kidney cancer". States he was advised he was not a surgical candidate. Carotid stenosis, right 07/11/2017 History of stroke 07/11/2017 Overview: TIA vs lacunar stroke diagnosed on head CT in [place] Apr 2017. Follow up MRI [facility] no infarct. Anxiety 07/11/2017 HTN, goal below [...] PM EDT Cardiac Studies Cardiac Studies [address] [place] [address] 08/21/2023 1:00 PM EDT Office Visit Palliative Medicine [facility] 200 [place] [phone] Brielle Schmidt MD [address] [place], [place] [address] [address] 08/22/2023 3:30 PM EDT Telemedicine Orthopaedics [address] [place] [phone] Ankit Castorena MD [address] [place] [address] 02/10/2024 1:00 PM EST Imaging Radiology [facility] 1st [facility] [place] [address] 02/25/2024 4:00 PM EST Office Visit Urology, [facility] 132 [facility] [place] [address] Cameron Romeo MD [address] [place] [address] [place] [address] 02/26/2024 1:40 PM EST Office Visit Family Medicine [address] [place] [phone] Jody Arora MD [address] [place] [address] [place] [address] 04/09/2024 2:20 PM EST Office Visit Nephrology [address] [place] [address] Rosy Patel MD [address] [facility] [address] Health Maintenance Due Date Last Done Comments [...] as of this encounter Care Teams Machine Egg Washer Relationship Specialty Start Date End Date Jody Arora MD [address] [place] [address] [place] [address] PCP - General Family Medicine 11/21/21 documented as of this encounter
--- OUTSIDE RECORDS SUMMARY | 2023-08-27 01:22 | External Medical Summary | Summary of Care ---
Author Name Unknown Organization [facility] Address [address] [place] [address] Phone [phone] Care Team Providers Care Trapeze Performer Name Role Phone Jody Arora MD Primary Care Provide r Reason for Visit * Reason Comments NEW PATIENT Pain R shoulder * Evaluate & Treat - Unlimited Visits (Within 30 days (routine)) - Authorized Specialty Diagnoses / Procedures Referred By Adam robertson Referred To Contact Orthopaedic Surgery / Orthopedics Diagnoses Pain in joint of right shoulder Jody Arora MD [address] [place] [address] [place] [address] Referral ID Status Reason Start Date Expiration Date Visits Requested Visits Authorized [id number] Authorized Specialty Services Required 07/23/2023 [id number] Encounter Details Date Type Department Care Team (Late st Contact Info) Description 07/25/2023 1:30 PM EDT Office Visit Orthopaedics [address] [phone] Ankit Castorena MD [address] [place] [address] Acute pain of right shoulder* Allergies No known active allergiesdocumented as of this encounter (statuses as of 07/25/2023) Medications Medication Sig Dispensed Refills Start Date End Date Status nitroglycerin (NITROSTAT) 0.4 MG SUBL 1 Tablet. 0 08/19/2018 Active Melatonin 10 MG Oral Capsule Take 1 Capsule by mouth at bedtime. 0 Active Ipratropium-Albutero l 0.5-2.5 (3) MG/3ML Inhalation Solution (Duoneb)Indications: Chronic hypoxemic respiratory failure (HCC),COPD, group C, by GOLD 2017 classification ([facility]) Inhale 3 mL via nebulizer [...] OPD, group C, by GOLD 2017 classification ([facility]) INHALE 1 DOSE BY MOUTH IN THE MORNING AND 1 AT BEDTIME 60 Each 0 05/28/2023 Active Ventolin HFA 108 (90 Base) MCG/ACT Inhalation Aerosol SolutionIndications: COPD, group D, by GOLD 2017 classification ([facility]) Inhale 2 Puffs by mouth every 4 hours as needed for Wheezing. 18 g 2 05/28/2023 Active Albuterol Sulfate (2.5 MG/3ML) 0.083% Inhalation Nebulization Solution (Proventil)Indicatio ns:COPD, group D, by GOLD 2017 classification ([facility]) Inhale 1 Vial via nebulizer [...] with food 180 Tablet 1 07/18/2023 Active predniSONE 20 MG Oral Tablet (Deltasone)Indicatio ns:Pain in joint of right shoulder Take 2 Tablets by mouth in the morning for 5 days. 10 Tablet 0 07/23/2023 Active Hospital, Clinic, or Other Facility Administered Medication Ordered Dose Route Frequency Start Date End Date Status Albuterol Sulfate (Proventil) (5 MG/ML) 0.5% *conc* inhalation solution 2.5 mgIndications:Chronic hypoxemic respiratory failure (HCC),COPD, group C, by GOLD 2017 classification ([facility]),[place] miners' lung ([facility]) 2.5 mg NEBULIZER PRN 04/24/2023 04/23/2024 Active Albuterol Sulfate (Proventil) (2.5 MG/3ML) 0.083% inhalation solution 2.5 mgIndications:Chronic hypoxemic respiratory failure (HCC),COPD, group C, by GOLD 2017 classification ([facility]),[place] miners' lung ([facility]) 2.5 mg NEBULIZER PRN 04/24/2023 04/23/2024 Active Triamcinolone Acetonide (Kenalog) 40 MG/ML inj 40 mgIndications:Acute pain of right shoulder 40 mg IM ONCE 07/25/2023 07/25/2023 En ded lidocaine 1 % inj 100 mgIndications:Acute pain of right shoulder 100 mg IX ONCE 07/25/2023 07/25/2023 En ded documented as of this encounter (statuses as of 07/25/2023) Active Problems Problem Noted Date Diagnosed Date COPD, group D, by GOLD 2017 classification 04/29 Overview: Per COPD GOLD Classification [place] 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 States he was advised he was not a surgical candidate. Carotid stenosis, right 07/11/2017 History of stroke 07/11/2017 Overview: TIA vs lacunar stroke diagnosed on head CT in [place] Apr 2017. Follow up MRI [facility] no infarct. Anxiety 07/11/2017 HTN, goal below 140/90 08/02/2015 Coronary artery disease Dyslipidemia, goal LDL below 100 documented as of this encounter (statuses as of 07/25/2023) Resolved Problems Problem Noted Date Diagnosed Date [...] as of this encounter (statuses as of 07/25/2023) Immunizations Name Administration Dates Next Due COVID-19 [...] Progress Notes * Ankit Castorena MD - 07/25/2023 1:45 PM EDT Justin Pinedo [phone] Justin Pinedo is a 83 year old male who presents for consultation to [facility] for right shoulder injury/pain. Consult requested by Jody Arora MD. Justin Pinedo is here with his/her History: Level of [...] Microalbuminuria Myocardial infarct, old 1998 stent in [place]--Dr. 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 Damaris Pinedo DO (pediatrics)) [facility] Telephone or in office follow-up in 3-4 [...] with ice and resolve within 24 hours. Ankit Castorena MD Primary Care Sports Medicine Orthopaedics [address] [phone] documented in this encounter Nursing Notes * Ann-Marie Gonzalez LPN - 07/25/2023 1:27 PM EDT -NEW Pt -R shoulder -Xray 07/23/23 -Pt c/o 10/25 pain today in r shoulder -Pt denies sx or injections to r shoulder -Pt accompanied by his today -Pt starting dialysis next week 07/30/23 Najma Steinberg LPN documented in this encounter Plan of Treatment Upcoming Encounters Date Type Department Care Team (Late st Contact Info) Description 08/05/2023 10:40 AM EDT Office Visit Ophthalmology, [facility] 132 [facility] [place] [address] Sergio Jung T, DO [address] [place] [address] 08/20/2023 12:30 PM EDT Cardiac Studies Cardiac Studies [address] [place] [phone] 08/21/2023 1:00 PM EDT Office Visit Palliative Medicine [facility] 200 [place] [phone] Brielle Schmidt MD [address] [place] [address] [place] [phone] 02/10/2024 1:00 PM EST Imaging Radiology [facility] 1st [facility] [place] 132 [facility] [place] [address] 02/25/2024 4:00 PM EST Office Visit Urology, [facility] 132 [facility] [place] [address] Cameron Romeo MD 27 [facility] [place] [address] [place] [address] 02/26/2024 1:40 PM EST Office Visit Family Medicine [address] [place] [phone] Jody Arora MD [address] [place] [address] [place] [address] 04/09/2024 2:20 PM EST Office Visit Nephrology [address] [place] [address] Rosy Patel MD [address] [place] [address] Scheduled Orders Name Type Priority Associated Diagnoses Orde r Schedule POINT OF CARE US MAJOR JOINT INJECTION, ORTHO Medical Imaging Routine Acute pain of right shoulder Ordered: 07/25/2023 Health Maintenance Due Date Last Done Comments [...] right shoulder- Primary documented in this encounter Administered Medications [...] Right documented in this encounter Care Teams Trapeze Performer Relationship Specialty Start Date End Date Jody Arora MD [address] [place] [address] [place] [phone] PCP - General Family Medicine 11/21/21 documented as of this encounter
--- OUTSIDE RECORDS SUMMARY | 2023-08-27 01:22 | External Medical Summary | Summary of Care ---
Author Name Unknown Organization [facility] Address [address] [place] [address] Phone [phone] Care Team Providers Care Head Stock Operator Name Role Phone Jody Arora MD Primary Care Provide r Reason for Referral * Precert (Within 10 days (routine)) - Authorized Specialty Diagnoses / Procedures Referred By Contjesika t Referred To Contact Radiology Diagnoses Acute pain of right shoulder Procedures MRI SHOULDER RIGHT WO CONTRAST Brianna Delcid MD [address] [facility] [place] [address] Referral ID Status Reason Start Date Expiration Date V isits Requested Visits Authorized [id number] Authorized 07/27/2023 999 999 Reason for Visit * Reason Comments NEW PATIENT Pain R shoulder * Evaluate & Treat - Unlimited Visits (Within 30 days (routine)) - Authorized Specialty Diagnoses / Procedures Referred By Adam robertson Referred To Contact Orthopaedic Surgery / Orthopedics Diagnoses Pain in joint of right shoulder Jody Arora MD [address] [place] [address] [place] [id number] Referral ID Status Reason Start Date Expiration Date Visits Requested Visits Authorized [id number] Authorized Specialty Services Required 07/23/2023 999 999 Encounter Details Date Type Department Care Team (Late st Contact Info) Description 07/25/2023 1:30 PM EDT Office Visit Orthopaedics [address] [place] [phone] Brianna Delcid MD [address] [place] [address] Acute pain of right shoulder* Allergies No known active allergiesdocumented as of this encounter (statuses as of 07/27/2023) Medications Medication Sig Dispensed Refills Start Date End Date Status nitroglycerin (NITROSTAT) 0.4 MG SUBL 1 Tablet. 0 08/19/2018 Active Melatonin 10 MG Oral Capsule Take 1 Capsule by mouth at bedtime. 0 Active Ipratropium-Albutero l 0.5-2.5 (3) MG/3ML Inhalation Solution (Duoneb)Indications: Chronic hypoxemic respiratory failure (HCC),COPD, group C, by GOLD 2017 classification ([facility]) Inhale 3 mL via nebulizer every [...] OPD, group C, by GOLD 2017 classification ([facility]) INHALE 1 DOSE BY MOUTH IN THE MORNING AND 1 AT BEDTIME 60 Each 0 05/28/2023 Active Ventolin HFA 108 (90 Base) MCG/ACT Inhalation Aerosol SolutionIndications: COPD, group D, by GOLD 2017 classification ([facility]) Inhale 2 Puffs by mouth every 4 hours as needed for Wheezing. 18 g 2 05/28/2023 Active Albuterol Sulfate (2.5 MG/3ML) 0.083% Inhalation Nebulization Solution (Proventil)Indicatio ns:COPD, group D, by GOLD 2017 classification ([facility]) Inhale 1 Vial via nebulizer every 4 hours as needed for Wheezing. 100 mL 1 05/28/2023 Active Albuterol Sulfate (2.5 MG/3ML) 0.083% Inhalation Nebulization Solution (Proventil)Indicatio ns:Pneumonia due to COVID-19 virus Inhale 1 Vial via nebulizer every 6 hours as needed for Wheezing. 360 mL 0 06/20/2023 Active Torsemide 20 MG Oral Tablet (Demadex)Indications :ESRD needing dialysis ([facility]) Take 4 Tablets by mouth 2 times [...] 5 days. 10 Tablet 0 07/23/2023 Active methylPREDNISolone 4 MG Oral Tablet Therapy Pack (Medrol Dosepack) follow package directions 21 Tablet 0 07/27/2023 Active Hospital, Clinic, or Other Facility Administered Medication Ordered Dose Route Frequency Start Date End Date Status Albuterol Sulfate (Proventil) (5 MG/ML) 0.5% *conc* inhalation solution 2.5 mgIndications:Chronic hypoxemic respiratory failure (HCC),COPD, group C, by GOLD 2017 classification ([facility]),[place]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) 2.5 mg NEBULIZER PRN 04/24/2023 04/23/2024 Active Albuterol Sulfate (Proventil) (2.5 MG/3ML) 0.083% inhalation solution 2.5 mgIndications:Chronic hypoxemic respiratory failure (HCC),COPD, group C, by GOLD 2017 classification (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 States he was advised he was not a surgical candidate. Carotid stenosis, right 07/11/2017 History of stroke 07/11/2017 Overview: TIA vs lacunar stroke diagnosed on head CT in [place] Apr 2017. Follow up MRI [facility] no infarct. Anxiety 07/11/2017 HTN, goal below 140/90 08/02/2015 Coronary artery disease Dyslipidemia, goal LDL below 100 documented as of this encounter (statuses as of 07/27/2023) Resolved Problems Problem Noted Date Diagnosed Date [...] as of this encounter (statuses as of 07/27/2023) Immunizations Name Administration Dates Next Due COVID-19 [...] - 07/25/2023 1:45 PM EDT Justin Kinney [id number] Justin Kinney is a 83 year old male who presents for consultation to [facility] for right shoulder [...] Microalbuminuria Myocardial infarct, old 1998 stent in [place]--Dr. 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 Damaris Kinney DO (pediatrics)) [facility] Telephone or in office follow-up in [...] with ice and resolve within 24 hours. Brianna Delcid MD Primary Care Sports Medicine Orthopaedics [address] [phone] documented in this encounter Nursing Notes * [...] 08/05/2023 10:40 AM EDT Office Visit Ophthalmology, [facility] [address] [place] [address] Sergio Jung, [address] [place] [address] 08/20/2023 12:30 PM EDT Cardiac Studies Cardiac Studies [address] [place] [address] 08/21/2023 1:00 PM EDT Office Visit Palliative Medicine [facility] [address] [place] [phone] Brielle Schmidt MD [address] [place] [address] [place] [address] 08/22/2023 3:30 PM EDT Telemedicine Orthopaedics [address] [phone] Brianna Delcid MD 132 [place] [address] 02/10/2024 1:00 PM EST Imaging Radiology [address] 132 [facility] [place] [address] 02/25/2024 4:00 PM EST Office Visit Urology, [facility] 132 [place] [address] Cameron Romeo MD [address] [place] [address] [place] [address] 02/26/2024 1:40 PM EST Office Visit Family Medicine [address] [phone] Jody Arora MD [address] [place] [address] [place] [address] 04/09/2024 2:20 PM EST Office Visit Nephrology [address] [place] [address] Rosy Patel MD [address] [place] [address] Scheduled Orders Name Type Priority Associated Diagnoses Orde r Schedule MRI SHOULDER RIGHT WO CONTRAST Medical Imaging Routine Acute pain of right shoulder Expected: 07/27/2023, Expires: 08/26/2024 Health Maintenance Due Date Last [...] shoulder documented in this encounter Results * POINT OF CARE US MAJOR JOINT [...] documented in this encounter Visit Diagnoses Diagnosis Acute pain [...] Right documented in this encounter Care Teams Head Stock Operator Relationship Specialty Start Date End Date Jody Arora MD [address] [place] [address] [place] [address] PCP - General Family Medicine 11/21/21 documented as of this encounter
--- OUTSIDE RECORDS SUMMARY | 2023-08-27 01:22 | External Medical Summary | Summary of Care ---
Author Name Unknown Organization [facility] Address [address] [facility] [place] [address] Phone [phone] Care Team Providers Care Swing Frame Grinder Operator Name Role Phone Jody Arora MD Primary Care Provide r Reason for Visit * Reason Onset Date Comments Advice 07/24/2023 Encounter Details Date Type Department Care Team (Late st Contact Info) Description 07/24/2023 Telephone Family [address] [place] [phone] Jody Arora MD [address] [place] [address] [place] [address] Advice Allergies No known active allergiesdocumented as of this encounter (statuses as of 07/24/2023) Medications Medication Sig Dispensed Refills Start Date [...] OPD, group C, by GOLD 2017 classification ([facility]) INHALE 1 DOSE BY MOUTH IN THE MORNING AND 1 AT BEDTIME 60 Each 0 05/28/2023 Active Ventolin HFA 108 (90 Base) MCG/ACT Inhalation Aerosol SolutionIndications: COPD, group D, by GOLD 2017 classification ([facility]) Inhale 2 Puffs by mouth every 4 hours as needed for Wheezing. 18 g 2 05/28/2023 Active Albuterol Sulfate (2.5 MG/3ML) 0.083% Inhalation Nebulization Solution (Proventil)Indicatio ns:COPD, group D, by GOLD 2017 classification ([facility]) Inhale 1 Vial via nebulizer every 4 [...] by GOLD 2017 classification ([facility]),[place]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) 2.5 mg NEBULIZER PRN 04/24/2023 04/23/2024 Active Albuterol Sulfate (Proventil) (2.5 MG/3ML) 0.083% inhalation solution 2.5 mgIndications:Chronic hypoxemic respiratory failure (HCC),COPD, group C, by GOLD 2017 classification ([facility]),[place]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) 2.5 mg NEBULIZER PRN 04/24/2023 04/23/2024 Active documented as of this encounter (statuses as of 07/24/2023) Active Problems Problem Noted Date Diagnosed Date COPD, group D, by GOLD 2017 classification 04/29 Overview: Per COPD GOLD Classification [place] 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 States he was advised he was not a surgical candidate. Carotid stenosis, right 07/11/2017 History of stroke 07/11/2017 Overview: TIA vs lacunar stroke diagnosed on head CT in [place] Apr 2017. Follow up MRI [facility] no infarct. Anxiety 07/11/2017 HTN, goal below 140/90 08/02/2015 Coronary artery disease Dyslipidemia, goal LDL below 100 documented as of this encounter (statuses as of 07/24/2023) Resolved Problems Problem Noted Date Diagnosed Date [...] as of this encounter (statuses as of 07/24/2023) Immunizations Name Administration Dates Next Due COVID-19 [...] Telephone Encounter - Mary Yepez LPN - 07/24/2023 12:44 PM EDT Pt calling [facility] is not able to get him O2 concentrator for 4 months. He is gong to call [facility] in [place] to inquiring how long it will take them to luisito concentrator for him. He will call back with fax number. documented in this encounter Plan of Treatment Upcoming Encounters Date Type Department Care Team (Late st Contact Info) Description 07/25/2023 1:30 PM EDT Office Visit Orthopaedics [address] [place] [phone] Ankit Castorena MD 132 [facility] [place] [address] 08/05/2023 10:40 AM EDT Office Visit Ophthalmology, [facility] 132 [place] [address] Sergio Jung, [address] [place] [address] [place] [address] 08/20/2023 12:30 PM EDT Cardiac Studies Cardiac Studies [address] [place] [address] 08/21/2023 1:00 PM EDT Office Visit Palliative Medicine [facility] 200 [place] [phone] Brielle Schmidt MD 400 [facility] [place] [address] 02/10/2024 1:00 PM EST Imaging Radiology [facility] 1st Floor, [place] [facility] [address] 02/25/2024 4:00 PM EST Office Visit Urology, [facility] 132 [facility] [address] Cameron Romeo MD [address] [place] [address] [place] [address] 02/26/2024 1:40 PM EST Office Visit Family Medicine [address] [phone] Jody Arora MD [address] [place] [address] [place] [address] 04/09/2024 2:20 PM EST Office Visit Nephrology [address] [place] [address] Rosy Patel MD 200 [facility] [address] Health Maintenance Due Date Last Done Comments [...] filedocumented as of this encounter Care Teams Swing Frame Grinder Operator Relationship Specialty Start Date End Date Jody Arora MD [address] [place] [address] [place] [address] PCP - General Family Medicine 11/21/21 documented as of this encounter
--- OUTSIDE RECORDS SUMMARY | 2023-08-27 01:22 | External Medical Summary | Summary of Care ---
Author Name Unknown Organization [facility] Address [address] [place] [address] Phone [phone] Care Team Providers Care Formula Technician Name Role Phone Jody Arora MD Primary Care Provide r Reason for Visit * Reason Onset Date Comments Outpatient Testing 07/23/2023 Encounter Details Date Type Department Care Team (Late st Contact Info) Description 07/23/2023 Telephone NephrologyMitzi 200 [facility] [place] [address] PatelRosy fine MD [address] [place] [address] Outpatient Testing Allergies No known active allergiesdocumented as of this encounter (statuses as of 07/24/2023) Medications Medication Sig Dispensed Refills Start Date End Date Status nitroglycerin (NITROSTAT) 0.4 MG SUBL 1 Tablet. 0 9 Active Melatonin 10 MG Oral Capsule Take [...] the morning 90 Capsule 1 3 Active Sodium Bicarbonate 650 MG Oral [...] 0 Active hydrOXYzine HCl 50 MG Oral TabletIndications: Primary insomnia TAKE 1 TABLET BY MOUTH AT BEDTIME NEEDED FOR INSOMNIA 30 Tablet 3 4 Active Fluticasone-Salmet aleida 250-50 MCG/ACT Inhalation Aerosol Powder Breath Activated (Advair Diskus)Indications :COPD, group C, by GOLD 2017 classification ([facility]) INHALE 1 DOSE BY MOUTH IN THE MORNING AND 1 AT BEDTIME 60 Each 0 4 Active Ventolin HFA 108 (90 Base) MCG/ACT Inhalation Aerosol SolutionIndication s:COPD, group D, by GOLD 2017 classification ([facility]) Inhale 2 Puffs by mouth every 4 hours as needed for Wheezing. 18 g 2 4 Active Albuterol Sulfate (2.5 MG/3ML) 0.083% Inhalation Nebulization Solution (Proventil)Indicat ions:COPD, group D, by GOLD 2017 classification ([facility]) Inhale 1 Vial via nebulizer every 4 hours as needed for Wheezing. 100 mL 1 4 Active Albuterol Sulfate (2.5 MG/3ML) 0.083% Inhalation Nebulization Solution (Proventil)Indicat ions:Pneumonia due to COVID-19 virus Inhale 1 Vial via nebulizer every 6 hours as needed for Wheezing. 360 mL 0 4 Active Torsemide 20 MG Oral Tablet (Demadex)Indicatio ns:ESRD needing dialysis (HCC) Take 4 Tablets by mouth 2 times a day in the morning and at noon. 120 Tablet 5 4 Active Carvedilol 3.125 MG Oral Tablet (Coreg) Take 1 tablet by mouth twice daily with food 180 Tablet 1 4 Active Ventolin HFA 108 (90 Base) MCG/ACT Inhalation Aerosol SolutionIndication s:COPD exacerbation ([facility]) Inhale by mouth 2 Puffs every 4 hours as needed for Wheezing. 18 g 1 2 024 Discontinued(In dication List Clean Up) Spiriva Respimat 2.5 MCG/ACT Inhalation Aerosol Solution (Tiotropium [place] Monohydrate) Inhale 2 Puffs by mouth in the morning. 4 g 2 4 024 predniSONE 5 MG Oral Tablet (Deltasone) Take 4 tab Daily for 5 Days Then 3 Tab daily for 5 days Then 2 tab daily for 5 days Then 1 tabe daily for 5 days and STOP 50 Tablet 0 4 024 Discontinued Hospital, Clinic, or Other Facility Administered Medication Ordered Dose Route Frequency Start Date End Date Status Albuterol Sulfate (Proventil) (5 MG/ML) 0.5% *conc* inhalation solution 2.5 mgIndications:Chronic hypoxemic respiratory failure (HCC),COPD, group C, by GOLD 2017 classification ([facility]),[place]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) 2.5 mg NEBULIZER PRN 04/24/2023 04/23/2024 Active Albuterol Sulfate (Proventil) (2.5 MG/3ML) 0.083% inhalation solution 2.5 mgIndications:Chronic hypoxemic respiratory failure (HCC),COPD, group C, by GOLD 2017 classification ([facility]),[place]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) 2.5 mg NEBULIZER PRN 04/24/2023 04/23/2024 Active documented as of this encounter (statuses as of 07/24/2023) Active Problems Problem Noted Date Diagnosed Date COPD, group D, by GOLD 2017 classification 04/29 Overview: Per COPD GOLD Classification [place]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 Follow up MRI [facility] [...] Telephone Encounter - Gabby Sosa RN - 07/24/2023 2:49 PM EDT Hepatitis Serology l;ab results received and faxed to [facility] . * Telephone Encounter - Gabby Sosa RN - 07/23/2023 9:13 AM EDT Call received from [facility] nurse Sujata regarding needing repeat of Hepatitis Serologies in order to start Dialysis this week. Spoke with Gege, pt's regarding need to have these tests done. She is aware that I attempted to contact pt. He has an appt at clinic today with PCP and she is aware that he can complete tests at [facility]. She also states that starting Dialysis on Saturday may pose a problem as they are scheduled to attend a graduation at [place] on Saturday. They will discuss options. Mary Jane updated on this as well. Pt is also aware and will complete at [facility] today. documented in this encounter Plan of Treatment Upcoming Encounters Date Type Department Care Team (Late st Contact Info) Description 07/25/2023 1:30 PM EDT Office Visit Orthopaedics [address] [phone] Ankit Castorena MD 132 [facility] [place] [address] 08/05/2023 10:40 AM EDT Office Visit Ophthalmology, [facility] 132 [facility] [place] [address] Sergio Jung, DO [address] [place] [address] 08/20/2023 12:30 PM EDT Cardiac Studies Cardiac Studies [address] [place] [address] 08/21/2023 1:00 PM EDT Office Visit Palliative Medicine [facility] 200 [place] [phone] Brielle Schmidt MD [address] [place] [address] [place] [address] 02/10/2024 1:00 PM EST Imaging Radiology [address] 132 [facility] [place] [address] 02/25/2024 4:00 PM EST Office Visit Urology, [facility] 132 [facility] [place] [address] Cameron Romeo MD [address] [place] [address] [place] [address] 02/26/2024 1:40 PM EST Office Visit Family Medicine [address] [phone] Jody Arora MD [address] [place] [address] [place] [address] 04/09/2024 2:20 PM EST Office Visit Nephrology [address] [place] [address] PatelRosy fine MD 200 [facility], [place] [address] Health Maintenance Due Date Last Done Comments [...] Not on filedocumented as of this encounter Results * HEPATITIS B SURFACE ANTIGEN (07/23/2023 2:30 PM EDT) Hepatitis B Surface Antigen Negative Negative 07/24/2023 1:32 PM EDT [facility] Blood Venous blood specimen / Unknown Venipuncture / Unknown 07/23/2023 2:30 PM EDT 07/23/2023 2:30 PM EDT Rosy Patel MD LAB BLOOD ORDERAB LES Performing Organization Address [facility] de Phone Number LABORATORY [facility] [address] [place] [address] * HEPATITIS B SURFACE ANTIBODY (07/23/2023 2:30 PM EDT) Pathologist [facility] Hepatitis B Surface Antibody, Quantitative <3.5 mIU/mL 07/24/2023 1:32 PM EDT [facility] Hepatitis B Surface Antibody, Qualitative Negative 07/24/2023 1:32 PM EDT [facility] Hepatitis B Surface Antibody, Interpretation NOT immune to Hepatitis B Virus 07/24/2023 1:32 PM EDT [facility] Comment: POSITIVE: >=11.5 mIU/mL INDETERMINATE: 8.5-<11.5 mIU/mL NEGATIVE: <8.5 mIU/mL Blood Venous blood specimen / Unknown Venipuncture / Unknown 07/23/2023 2:30 PM EDT 07/23/2023 2:30 PM EDT Rosy Patel MD LAB BLOOD ORDERAB LES Performing Organization Address [facility] de Phone Number LABORATORY [facility] [address] [place] [address] * HEPATITIS B CORE ANTIBODY IGM (07/23/2023 2:30 PM EDT) Hepatitis B Core Antibody IgM Negative Negative 07/24/2023 1:32 PM EDT [facility] Blood Venous blood specimen / Unknown Venipuncture / Unknown 07/23/2023 2:30 PM EDT 07/23/2023 2:30 PM EDT Rosy Patel MD LAB BLOOD ORDERAB LES Performing Organization Address City/[facility]/ZIP Co de Phone Number LABORATORY [facility] [address] [place] [address] * HEPATITIS B CORE ANTIBODIES IGG AND IGM (07/23/2023 2:30 PM EDT) Hepatitis B Core Antibodies IgG and IgM Negative Negative 07/24/2023 1:32 PM EDT [facility] Blood Venous blood specimen / Unknown Venipuncture / Unknown 07/23/2023 2:30 PM EDT 07/23/2023 2:30 PM EDT Rosy Patel MD LAB BLOOD ORDERAB LES Performing Organization Address City/[facility] Co de Phone Number LABORATORY [facility] [address] [place] [address] documented in this encounter Visit Diagnoses Diagnosis ESRD (end stage renal disease) (HCC)- Primary End stage renal disease documented in this encounter Care Teams Formula Technician Relationship Specialty Start Date End Date Jody Arora MD [address] [place] [address] [place] [address] PCP - General Family Medicine 11/21/21 documented as of this encounter
--- OUTSIDE RECORDS SUMMARY | 2023-08-27 01:23 | External Medical Summary ---
Author Name Unknown Address Unknown Organization K01:LABORATORY [facility] - [address] [place] [address] Laboratory Report Ordering Provider Test Date Status OLEGARIO MALDONADO 07/23/2023 14:30:01 Final Observation Date Value Abnormality Reference (Units ) Status Hepatitis B virus core Ab [Presence] in Serum 07/23/2023 14:30:01 Negative Negative Final Performing Location LABORATORY C - [address] [place] [address]
--- OUTSIDE RECORDS SUMMARY | 2023-08-27 01:23 | External Medical Summary | Summary of Care ---
Author Name Unknown Organization [facility] Address [address] [place] [address] Phone [phone] Care Team Providers Care Director Post Name Role Phone Jody Arora MD Primary Care Provide r Reason for Visit * Reason Onset Date Comments Outpatient Testing 07/23/2023 Encounter Details Date Type Department Care Team (Late st Contact Info) Description 07/23/2023 Telephone NephrologyMitzi 200 [facility] [place] [address] PatelRosy fine MD [address] [place] [address] Outpatient Testing Allergies No known active allergiesdocumented as of this encounter (statuses as of 07/23/2023) Medications Medication Sig Dispensed Refills Start Date [...] Respimat 2.5 MCG/ACT Inhalation Aerosol Solution (Tiotropium [place] Monohydrate) Inhale 2 Puffs by mouth in the morning. 4 g 2 04/24/2023 Active hydrOXYzine HCl 50 MG Oral TabletIndications:Pr imary insomnia TAKE 1 TABLET BY MOUTH AT BEDTIME NEEDED FOR INSOMNIA 30 Tablet 3 05/13/2023 Active Additional Information Patient not taking.Reported on 06/20/2023 Fluticasone-Salmeter ol 250-50 MCG/ACT Inhalation Aerosol Powder Breath Activated (Advair Diskus)Indications:C OPD, group C, by GOLD 2017 classification ([facility]) INHALE 1 DOSE BY MOUTH IN THE MORNING AND 1 AT BEDTIME 60 Each 0 05/28/2023 Active Ventolin HFA 108 (90 Base) MCG/ACT Inhalation Aerosol SolutionIndications: COPD, group D, by GOLD 2017 classification ([facility]) Inhale 2 Puffs by mouth every 4 hours as needed for Wheezing. 18 g 2 05/28/2023 Active Albuterol Sulfate (2.5 MG/3ML) 0.083% Inhalation Nebulization Solution (Proventil)Indicatio ns:COPD, group D, by GOLD 2017 classification ([facility]) Inhale 1 Vial via nebulizer every 4 hours as needed for Wheezing. 100 mL 1 05/28/2023 Active predniSONE 5 MG Oral Tablet (Deltasone) Take 4 tab Daily for 5 Days Then 3 Tab daily for 5 days Then 2 tab daily for 5 days Then 1 tabe daily for 5 days and STOP 50 Tablet 0 05/29/2023 Active Additional Information Patient not taking.Reported on 06/20/2023 Albuterol Sulfate (2.5 MG/3ML) 0.083% Inhalation Nebulization [...] with food 180 Tablet 1 07/18/2023 Active Hospital, Clinic, or Other Facility Administered Medication Ordered Dose Route Frequency Start Date End Date Status Albuterol Sulfate (Proventil) (5 MG/ML) 0.5% *conc* inhalation solution 2.5 mgIndications:Chronic hypoxemic respiratory failure (HCC),COPD, group C, by GOLD 2017 classification ([facility]),[place] miners' lung ([facility]) 2.5 mg NEBULIZER PRN 04/24/2023 04/23/2024 Active Albuterol Sulfate (Proventil) (2.5 MG/3ML) 0.083% inhalation solution 2.5 mgIndications:Chronic hypoxemic respiratory failure (HCC),COPD, group C, by GOLD 2017 classification ([facility]),[place]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) 2.5 mg NEBULIZER PRN 04/24/2023 04/23/2024 Active documented as of this encounter (statuses as of 07/23/2023) Active Problems Problem Noted Date Diagnosed Date COPD, group D, by GOLD 2017 classification 04/29 Overview: Per COPD GOLD Classification [place]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 States he was advised he was not a surgical candidate. Carotid stenosis, right 07/11/2017 History of stroke 07/11/2017 Overview: TIA vs lacunar stroke diagnosed on head CT in [place] Apr 2017. Follow up [facility] no infarct. Anxiety 07/11/2017 HTN, goal below 140/90 08/02/2015 Coronary artery disease Dyslipidemia, goal LDL below 100 documented as of this encounter (statuses as of 07/23/2023) Resolved Problems Problem Noted Date Diagnosed Date [...] as of this encounter (statuses as of 07/23/2023) Immunizations Name Administration Dates Next Due COVID-19 [...] 07/23/2023 9:13 AM EDT Call received from [facility] nurse Sujata regarding needing repeat of Hepatitis Serologies in order to start Dialysis this week. Spoke with Gege, pt's regarding need to have these tests done. She is aware that I attempted to contact pt. He has an appt at clinic today with PCP and she is aware that he can complete tests at Clinic. She also states that starting Dialysis on Saturday may pose a problem as they are scheduled to attend a graduation at [place] on Saturday. They will discuss options. Mary Jane updated on this as well. Pt is also aware and will complete at clinic today. documented in this encounter Plan of Treatment Upcoming Encounters Date Type Department Care Team (Late st Contact Info) Description 07/23/2023 1:40 PM EDT Office Visit Family Medicine [address] [place] [address] Jody Arora MD [address] [place] [address] [place] [id number] 08/05/2023 10:40 AM EDT Office Visit Ophthalmology, [facility] [address] [place] [address] Sergio Jung, [address] [place] [address] 08/21/2023 1:00 PM EDT Office Visit Palliative Medicine [facility] [address] [place] [phone] Brielle Schmidt MD [address] [place] [address] 02/10/2024 1:00 PM EST Imaging Radiology [facility]st [facility] [address] [place] [address] 02/25/2024 4:00 PM EST Office Visit Urology, [facility] [address] [place] [address] Cameron Romeo MD [address] [place] [address] 04/09/2024 2:20 PM EST Office Visit Nephrology [address] [place] [address] Rosy Patel MD 200 [place] [address] Scheduled Orders Name Type Priority Associated Diagnoses Orde r Schedule HEPATITIS B CORE ANTIBODIES IGG AND IGM Lab STAT ESRD (end stage renal disease) (HCC) Expected: 07/23/2023, Expires: 07/22/2024 HEPATITIS B CORE ANTIBODY IGM Lab STAT ESRD (end stage renal disease) ([facility]) Expected: 07/23/2023, Expires: 07/22/2024 HEPATITIS B SURFACE ANTIBODY Lab STAT ESRD (end stage renal disease) (HCC) Expected: 07/23/2023, Expires: 07/22/2024 HEPATITIS B SURFACE ANTIGEN Lab STAT ESRD (end stage renal disease) ([facility]) Expected: 07/23/2023, Expires: 07/22/2024 HEPATITIS C ANTIBODY SCREEN WITH PROGRESSION TO HEPATITIS C RNA QUANTITATIVE Lab STAT ESRD (end stage renal disease) ([facility]) Expected: 07/23/2023, Expires: 07/22/2024 Health Maintenance Due Date Last Done Comments Alpha-1 Antitrypsin 1958 *COPD SEVERITY VERIFIED BY PFT 07/16/2020 Hepatitis B (3 of 3 - 19+ 3-dose series) 03/20/2023 01/23/2023, 01/08/2018 GFR 01/09/2024 07/10/2023, 06/16, 06/20/2023, Additional history exists Depression Screening 05/19/2024 05/20/2023 Hgb 06/19/2024 06/20/2023, 02/15, 12/24/2022, Additional history exists Albumin/Creatinine Ratio 07/09/2024 024, 08/08/2022, 12/07/2021, Additional history exists PTH 07/09/2024 07/10/2023, 11/16, 07/12/2022, Additional history exists Phosphate 07/09/2024 07/10/2023, 03/18, 03/19/2023, Additional history exists Nephrology Referral 07/14/2024 07/15/2023 O2 ASSESSMENT COMPLETED IN PAST YEAR FOR COPD 07/14/2024 07/15/2023 DTaP,Tdap,and Td Vaccines (2 - Td or [...] as of this encounter Visit Diagnoses Diagnosis ESRD (end stage renal disease) (HCC)- Primary End stage renal disease documented in this encounter Care Teams Director Post Relationship Specialty Start Date End Date Jody Arora MD [address] [place] [address] [place] [phone] PCP - General Family Medicine 11/21/21 documented as of this encounter
--- OUTSIDE RECORDS SUMMARY | 2023-08-27 01:23 | External Medical Summary ---
Author Name Unknown Address Unknown Organization K01:[facility] [place] [facility] [address] [place] [address] Laboratory Report Ordering Provider Test Date Status OLEGARIO MALDONADO 07/23/2023 14:30:01 Final Observation Date Value Abnormality Reference (Units ) Status BUN 07/23/2023 14:30:01 111 Above high normal 6-20 (mg/dL) Final Creatinine 07/23/2023 14:30:01 4.8 Above high normal 0.6-1.2 (mg/dL) Final Glomerular filtration rate/1.73 sq M.predicted [Volume Rate/Area] in Serum, Plasma or Blood by Creatinine-based formula (CKD-EPI) 07/23/2023 14:30:01 11 Below low normal >=60 (mL/min) Final eGFR is calculated based on the CKD-EPI 2020 equation Sodium 07/23/2023 14:30:01 142 135-146 (m mol/L) Final Potassium 07/23/2023 14:30:01 4.2 3.5-5.1 (m mol/L) Final Cl 07/23/2023 14:30:01 94 Below low normal 98- 107 (mmol/L) Final CO2 07/23/2023 14:30:01 30 22-32 (mmo l/L) Final Anion gap 07/23/2023 14:30:01 18 Above high normal 7- 15 (mmol/L) Final Glucose 07/23/2023 14:30:01 119 70-120 (mg /dL) Final Calcium 07/23/2023 14:30:01 8.4 8.4-10.2 ( mg/dL) Final Performing Location [facility] [facility] [address] [place] [address]
--- OUTSIDE RECORDS SUMMARY | 2023-08-27 01:23 | External Medical Summary ---
Author Name Unknown Address Unknown Organization [id number]:LABORATORY [place] [address] [place] [address] Laboratory Report Ordering Provider Test Date Status OLEGARIO MALDONADO 07/23/2023 14:30:01 Final Observation Date Value Abnormality Reference (Units) Status Hepatitis B virus surface Ab [Units/volume] in Serum or Plasma by Immunoassay 07/23/2023 14:30:01 <3.5 (mIU/mL) Final Hepatitis B virus surface Ab [Presence] in Serum by Immunoassay 07/23/2023 14:30:01 Negative Final HEPATITIS B SURFACE ANTIBODY, INTERPRETATION 07/23/2023 14:30:01 NOT immune to Hepatitis B Virus Final POSITIVE: >=11.5 mIU/mL
INDETERMINATE: 8.5-<11.5 mIU/mL
NEGATIVE: <8.5 mIU/mL Performing Location [facility] [place] [facility] [address] [place] [address]
--- OUTSIDE RECORDS SUMMARY | 2023-08-27 01:23 | External Medical Summary ---
Author Name Unknown Address Unknown Organization K01:LABORATORY [facility] - [address] [place] [address] Laboratory Report Ordering Provider Test Date Status OLEGARIO MALDONADO 07/23/2023 14:30:01 Final Observation Date Value Abnormality Reference (Units ) Status Hep B Core IgM 07/23/2023 14:30:01 Negative Negat bess Final Performing Location LAB[facility]ORY [facility] - [address] [place] [address]
--- OUTSIDE RECORDS SUMMARY | 2023-08-27 01:23 | External Medical Summary ---
Author Name Unknown Address Unknown Organization [id number]:[facility] [place] - [facility] [address] [facility] [address] Laboratory Report Ordering Provider Test Date Status SUJATHA CALLAHANNelson 07/23/2023 14:30:01 Katelyn l Observation Date Value Abnormality Reference (Units ) Status HbA1C 07/23/2023 14:30:01 6.6 Above high normal 4. 0-5.6 (%) Final The use of HbA1c to monitor glycemic status is based on normal hemoglobin and HbA composition. This test should not be used in patients with abnormal hemoglobin that affects the half life of the red blood cell or the in vivo glycation rates. Glucose, estimated average 07/23/2023 14:30:01 143 Above high normal <126 (mg/dL) Christiano al Performing Location LABORATORY [facility] [place] - [address] [facility] [address]
--- OUTSIDE RECORDS SUMMARY | 2023-08-27 01:23 | External Medical Summary ---
Author Name Unknown Address Unknown Organization K01:[facility] - [address] [place] [address] Laboratory Report Ordering Provider Test Date Status OLEGARIO MALDONADO 07/23/2023 14:30:01 Final Observation Date Value Abnormality Reference (Units ) Status Hep B surface Ag 07/23/2023 14:30:01 Negative Neg ative Final Performing Location LAB[facility] - [address] [place] [address]
--- OUTSIDE RECORDS SUMMARY | 2023-08-27 01:23 | External Medical Summary ---
Author Name Unknown Address Unknown Organization K01:LAB[facility]ATORY [facility] [place] - [address] [place] [address] Laboratory Report Ordering Provider Test Date Status OLEGARIO MALDONADO 07/23/2023 14:30:01 Final Observation Date Value Abnormality Reference (Units ) Status Hep C Ab 07/23/2023 14:30:01 Negative Negative Final Further HCV quantitative debbie ting not performed per protocol. Performing Location LABORATORY [facility] [place] - [address] [place] [address]
--- OUTSIDE RECORDS SUMMARY | 2023-08-27 01:23 | External Medical Summary | Summary of Care ---
Author Name Unknown Organization [facility] Address [address] [place] [address] Phone [phone] Care Team Providers Care Interventionist Name Role Phone Jody Arora MD Primary Care Provide r Reason for Visit * Reason Comments Outpatient Testing Encounter Details Date Type Department Care Team (Late st Contact Info) Description 07/23/2023 2:20 PM EDT Laboratory Laboratory [address] [place] [phone] [place] [address] ESRD needing dialysis ([facility]); ESRD (end stage renal disease) ([facility]) Allergies No known active allergiesdocumented [...] Respimat 2.5 MCG/ACT Inhalation Aerosol Solution (Tiotropium [place] Monohydrate) Inhale 2 Puffs by mouth in the morning. 4 g 2 04/24/2023 Active hydrOXYzine HCl 50 MG Oral TabletIndications:Pr imary insomnia TAKE 1 TABLET BY MOUTH AT BEDTIME NEEDED FOR INSOMNIA 30 Tablet 3 05/13/2023 Active Fluticasone-Salmeter ol 250-50 MCG/ACT Inhalation Aerosol Powder Breath Activated (Advair Diskus)Indications:C OPD, group C, by GOLD 2017 classification ([facility]) INHALE 1 DOSE BY MOUTH IN THE MORNING AND 1 AT BEDTIME 60 Each 0 05/28/2023 Active Ventolin HFA 108 (90 Base) MCG/ACT Inhalation Aerosol SolutionIndications: COPD, group D, by GOLD 2017 classification ([facility]) Inhale 2 Puffs by mouth every 4 hours as needed for Wheezing. 18 g 2 05/28/2023 Active Albuterol Sulfate (2.5 MG/3ML) 0.083% Inhalation Nebulization Solution (Proventil)Indicatio ns:COPD, group D, by GOLD 2017 classification ([facility]) Inhale 1 Vial via nebulizer [...] by GOLD 2017 classification ([facility]),[place]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) 2.5 mg NEBULIZER PRN 04/24/2023 04/23/2024 Active Albuterol Sulfate (Proventil) (2.5 MG/3ML) 0.083% inhalation solution 2.5 mgIndications:Chronic hypoxemic respiratory failure (HCC),COPD, group C, by GOLD 2017 classification ([facility]),[place] miners' lung ([facility]) 2.5 mg NEBULIZER PRN 04/24/2023 04/23/2024 Active documented as of this encounter (statuses as of 07/23/2023) Active Problems Problem Noted Date Diagnosed Date COPD, group D, by GOLD 2017 classification 04/29 Overview: Per COPD GOLD Classification [place] 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 States he was advised he was not a surgical candidate. Carotid stenosis, right 07/11/2017 History of stroke 07/11/2017 Overview: TIA vs lacunar stroke diagnosed on head CT in [place] Apr 2017. Follow up [facility] [...] 07/25/2023 1:30 PM EDT Office Visit Orthopaedics [address] [phone] Ankit Castorena MD [address] [facility] [place] [address] 08/05/2023 10:40 AM EDT Office Visit Ophthalmology, [facility] [address] [facility] [place] [address] Sergio Jung, DO [address] [place] [address] 08/20/2023 12:30 PM EDT Cardiac Studies Cardiac Studies [address] [place] [address] 08/21/2023 1:00 PM EDT Office Visit Palliative Medicine [facility] [address] [place] [address] Brielle Schmidt MD [address] [place] [address] [place] [phone] 02/10/2024 1:00 PM EST Imaging Radiology [facility] 1[address] [facility] [address] [facility] [place] [address] 02/25/2024 4:00 PM EST Office Visit Urology, [facility] [address] [facility] [place] [address] Cameron Romeo MD [address] [facility] [address] [place] [address] 02/26/2024 1:40 PM EST Office Visit Family Medicine [address] [place] [phone] Jody Arora MD [address] [place] [address] [place] [address] 04/09/2024 2:20 PM EST Office Visit Nephrology [address] [place] [address] PatelRosy fine MD [address] [place] [address] Pending Results Name Type Priority Associated Diagnoses Date /Time BASIC METABOLIC PANEL Lab Routine ESRD needing dialysis (HCC) 07/23/2023 2:30 PM EDT HEPATITIS B CORE ANTIBODIES IGG AND IGM Lab STAT ESRD (end stage renal disease) (HCC) 07/23/2023 2:30 PM EDT HEPATITIS B CORE ANTIBODY IGM Lab STAT ESRD (end stage renal disease) (HCC) 07/23/2023 2:30 PM EDT HEPATITIS B SURFACE ANTIBODY Lab STAT ESRD (end stage renal disease) (HCC) 07/23/2023 2:30 PM EDT HEPATITIS B SURFACE ANTIGEN Lab STAT ESRD (end stage renal disease) (HCC) 07/23/2023 2:30 PM EDT HEPATITIS C ANTIBODY SCREEN WITH PROGRESSION TO HEPATITIS C RNA QUANTITATIVE Lab STAT ESRD (end stage renal disease) (HCC) 07/23/2023 2:30 PM EDT HEPATITIS C ANTIBODY Lab STAT ESRD (end stage renal disease) (HCC) 07/23/2023 2:30 PM EDT HEPATITIS C RNA ADD ON Lab STAT ESRD (end stage renal disease) (HCC) 07/23/2023 2:30 PM EDT Health Maintenance Due Date Last [...] of this encounter Visit Diagnoses Diagnosis ESRD needing dialysis (HCC) End stage renal disease ESRD (end stage renal disease) (HCC) End stage renal disease documented in this encounter Care Teams Interventionist Relationship Specialty Start Date End Date Jody Arora MD [address] [place] [address] [place] [address] PCP - General Family Medicine 11/21/21 documented as of this encounter
--- OUTSIDE RECORDS SUMMARY | 2023-08-27 01:23 | External Medical Summary ---
Author Name Unknown Address Unknown Organization K01:[facility] [place] - [address] [place] [address] Laboratory Report Ordering Provider Test Date Status DIAZ CALLAHAN 07/23/2023 14:30:01 Katelyn l Observation Date Value Abnormality Reference (Units ) Status Triglyceride 07/23/2023 14:30:01 117 <=174 ( mg/dL) Final Triglyceride Reference Range s (mg/dL):
<150 Acceptable
150-174 Borderline high
175-499 High
>=500 Very high Cholesterol 07/23/2023 14:30:01 136 <200 (mg /dL) Final Total Cholesterol Reference Ranges (mg/dL):
<200 Desirable
200-239 Borderline high
>=240 High HDL 07/23/2023 14:30:01 48 >39 (mg/dL ) Final HDL Cholesterol Reference Ra nges (mg/dL):
>=60 High (Desirable)
<50 Low (Undesirable) For Females
<40 Low (Undesirable) For Males NON-HDL CHOLESTEROL 07/23/2023 14:30:01 88 <=159 (mg/dL) Final Non-HDL Cholesterol Referenc e Range (mg/dL):
<100 Target level for high risk ASCVD patient
<130 Optimal for general population
130-159 Near optimal for general population
160-189 Borderline High
190-219 High
>=220 Very High LDL, (calculated) 07/23/2023 14:30:01 65 <= 129 (mg/dL) Final LDL Cholesterol Reference Ra nges (mg/dL):
<70 Target level for high risk ASCVD patient
<100 Optimal for general population
100-129 Near optimal for general population
130-159 Borderline high
160-189 High
>=190 Very high Performing Location LABORATORY [facility] [place] - [address] [facility] [address]
--- OUTSIDE RECORDS SUMMARY | 2023-08-27 01:23 | External Medical Summary | Summary of Care ---
Author Name Unknown Organization [facility] Address [address] [place] [address] Phone [phone] Care Team Providers Care Machine I Cutter Name Role Phone Jody Arora MD Primary Care Provide r Reason for Referral * Precert (Within 10 days (routine)) - Authorized Specialty Diagnoses / Procedures Referred By dAam robertson Referred To Contact Cardiac Studies Diagnoses Undiagnosed cardiac murmurs Procedures ECHO, COMPLETE (2D), TRANS-THORACIC Jody Arora MD [address] [place] [address] [place] [address] Referral ID Status Reason Start Date Expiration Date V isits Requested Visits Authorized [id number] Authorized Precert 07/23/2023 999 999 * Evaluate & Treat - Unlimited Visits (Within 30 days (routine)) - Authorized Specialty Diagnoses / Procedures Referred By Adam robertson Referred To Contact Orthopaedic Surgery / Orthopedics Diagnoses Pain in joint of right shoulder Jody Arora MD [address] [place] [address] [place] [id number] Referral ID Status Reason Start Date Expiration Date Visits Requested Visits Authorized [id number] Authorized Specialty Services Required 07/23/2023 999 999 Question Answer Referral Priority Within 30 days (routine) Where should this appointment be scheduled? [facility] What body part is the patient being seen for? Shoulder What condition is the patient being seen for? Arthritis including related infection Reason for Visit * Reason Comments Re-Check Encounter Details Date Type Department Care Team (Late st Contact Info) Description 07/23/2023 1:40 PM EDT [facility] [place] [phone] Jody Arora MD [address] [place] [address] [place] [id number] Pain in joint of right shoulder*; Chronic hypoxemic respiratory failure (HCC); Dyslipidemia, goal LDL below 100; Prediabetes; Undiagnosed cardiac murmurs; Skin abrasion; ESRD (end stage renal disease) ([facility]) Allergies No known active allergiesdocumented as [...] Respimat 2.5 MCG/ACT Inhalation Aerosol Solution (Tiotropium [place] Monohydrate) Inhale 2 Puffs by mouth in the morning. 4 g 2 4 024 Active hydrOXYzine HCl 50 MG Oral TabletIndications: Primary insomnia TAKE 1 TABLET BY MOUTH AT BEDTIME NEEDED FOR INSOMNIA 30 Tablet 3 4 Active Fluticasone-Salmet aleida 250-50 MCG/ACT Inhalation Aerosol Powder Breath Activated (Advair Diskus)Indications :COPD, group C, by GOLD 2017 classification ([facility]) INHALE 1 DOSE BY MOUTH IN THE MORNING AND 1 AT BEDTIME 60 Each 0 4 Active Ventolin HFA 108 (90 Base) MCG/ACT Inhalation Aerosol SolutionIndication s:COPD, group D, by GOLD 2017 classification ([facility]) Inhale 2 Puffs by mouth every 4 hours as needed for Wheezing. 18 g 2 4 Active Albuterol Sulfate (2.5 MG/3ML) 0.083% Inhalation Nebulization Solution (Proventil)Indicat ions:COPD, group D, by GOLD 2017 classification ([facility] [...] with food 180 Tablet 1 4 Active predniSONE 20 MG Oral Tablet (Deltasone)Indicat ions:Pain in joint of right shoulder Take 2 Tablets by mouth in the morning for 5 days. 10 Tablet 0 4 024 Active Ventolin HFA 108 (90 Base) MCG/ACT Inhalation Aerosol SolutionIndication s:COPD exacerbation ([facility]) Inhale by mouth 2 Puffs every 4 hours as needed for Wheezing. 18 g 1 2 024 Discontinued([facility] Up) predniSONE 5 MG Oral Tablet (Deltasone) Take [...] by GOLD 2017 classification ([facility]),Bradley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) 2.5 mg NEBULIZER PRN 04/24/2023 04/23/2024 Active Albuterol Sulfate (Proventil) (2.5 MG/3ML) 0.083% inhalation solution 2.5 mgIndications:Chronic hypoxemic respiratory failure (HCC),COPD, group C, by GOLD 2017 classification ([facility]),Bradley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) 2.5 mg NEBULIZER PRN 04/24/2023 04/23/2024 Active documented as of this encounter (statuses as of 07/23/2023) Active Problems Problem Noted Date Diagnosed Date COPD, group D, by GOLD 2017 classification 04/29 Overview: Per COPD GOLD Classification 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 States he was advised he was not a surgical candidate. Carotid stenosis, right 07/11/2017 History of stroke 07/11/2017 Overview: TIA vs lacunar stroke diagnosed on head CT in [place] Apr 2017. Follow up MRI Cancer Treatment [...] Sign Reading Time Taken Comments Blood Pressure 126/64 07/23/2023 1:48 PM EDT Pulse 87 07/23/2023 1:48 PM EDT Temperature 35.9 C (96.6 F) 07/23/2023 1:48 PM ED T Respiratory Rate - - Oxygen Saturation 81% 07/23/2023 1:48 PM EDT Inhaled Oxygen Concentration - - Weight 89.1 kg (196 lb 6.4 oz) 07/23/2023 1:48 P M EDT Height - - Body Mass Index 33.71 05/29/2023 1:38 PM EDT documented in this encounter Progress Notes * Jody Arora MD - 07/23/2023 1:51 PM EDT Subjective: HPI: Justin Pinedo is a 83 year old male with hx of CAD s/p stent, ESRD, COPD (wears nocturnal oxygen 4L), MOLLY, HTN, carotid stenosis, HTN, DDD, anemia, anxiety, CVA with R sided weakness, COVID infection (02/2021), prediabetes, BPH, hx of RLE DVT and PE (was on coumadin) seen for R shoulder pain: - started 2 weeks ago - no fall - sometimes radiates to the hand and neck - tried voltaren: helps very little ESRD: - starting dialysis Chronic respiratory failure with COPD - pt supposed to wear 4L all the time - per pt it is difficult to carry his tank would like a portable oxygen concentrator Having Gluteal area skin dryness and pain Patient Active Problem List Diagnosis Code HTN, goal below 140/90 I10 Left renal mass N28.89 Coronary artery disease I25.10 Carotid stenosis, right I65.21 Dyslipidemia, goal LDL below 100 E78.5 History of stroke Z86.73 Anxiety F41.9 Anemia of chronic renal failure, stage 4 (severe) ([facility]) N18.4, D63.1 Not immune to hepatitis B virus Z78.9 Adjustment disorder with mixed disturbance of emotions and conduct F43.25 Paroxysmal nocturnal dyspnea R06.00 Obesity, Class I, BMI 30.0-34.9 (see actual BMI) E66.9 Chronic hypoxemic respiratory failure ([facility]) J96.11 Benign hypertension with chronic kidney disease, stage IV ([facility]) I12.9, N18.4 MOLLY and COPD overlap syndrome ([facility]) G47.33, J44.9 History of basal cell carcinoma Z85.828 Old myocardial infarct 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 C7 radiculopathy M54.12 Lumbosacral radiculopathy at L5 M54.17 Renal osteodystrophy N25.0 Hx of nonmelanoma skin cancer Z85.828 AK (actinic keratosis) L57.0 Kidney disease, chronic, stage IV (GFR 15-29 ml/min) ([facility]) N18.4 BPH without obstruction/lower urinary tract symptoms N40.0 Right sided weakness R53.1 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 Melatonin 10 MG Oral Capsule Take 1 Capsule by mouth at bedtime. Venlafaxine HCl ER 37.5 MG Oral Capsule [...] mouth in the morning 90 Capsule 1 Sodium Bicarbonate 650 MG Oral Tablet TAKE 2 TABLETS BY MOUTH IN THE MORNING AND 2 BEFORE BEDTIME 120 Tablet 0 Rosuvastatin Calcium 10 MG Oral Tablet (Crestor) Take 1 Tablet by mouth in the morning. 90 Tablet 1 oxygen IN GAS Use 4 L/min(Oxygen) as directed. Uses "in the evening" Spiriva Respimat 2.5 MCG/ACT Inhalation Aerosol Solution (Tiotropium [place] Monohydrate) Inhale 2 Puffs by mouth in the morning. 4 g 2 hydrOXYzine HCl 50 MG Oral Tablet TAKE 1 TABLET BY MOUTH AT BEDTIME NEEDED FOR INSOMNIA 30 Tablet 3 Fluticasone-Salmeterol 250-50 MCG/ACT Inhalation Aerosol Powder Breath Activated (Advair Diskus) INHALE 1 DOSE BY MOUTH IN THE MORNING AND 1 AT BEDTIME 60 Each 0 Ventolin HFA 108 (90 Base) MCG/ACT Inhalation Aerosol Solution Inhale 2 Puffs by mouth every 4 hours as needed for Wheezing. 18 g 2 Albuterol Sulfate (2.5 MG/3ML) 0.083% Inhalation Nebulization Solution (Proventil) Inhale 1 Vial via nebulizer every 4 hours as needed for Wheezing. 100 mL 1 Albuterol Sulfate (2.5 MG/3ML) 0.083% Inhalation Nebulization Solution (Proventil) Inhale 1 Vial via nebulizer every 6 hours as needed for Wheezing. 360 mL 0 Torsemide 20 MG Oral Tablet (Demadex) Take 4 Tablets by mouth 2 times a day in the morning and at noon. 120 Tablet 5 Carvedilol 3.125 MG Oral Tablet (Coreg) Take 1 tablet by mouth twice daily with food 180 Tablet 1 predniSONE 20 MG Oral Tablet (Deltasone) Take 2 Tablets by mouth in the morning for 5 days. 10 Tablet 0 Ipratropium-Albuterol 0.5-2.5 (3) MG/3ML Inhalation Solution (Duoneb) Inhale 3 mL via nebulizer every 4 hours as needed for Wheezing. (Patient not taking: Reported on 04/24/2023) 120 mL 1 Current Facility-Administered Medications Medication Dose Route Frequency [...] Microalbuminuria Myocardial infarct, old 1998 stent in [place]--Dr. 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 Pneumonia of right middle lobe due to infectious organism 01/16/2018 Pulmonary embolism (HCC) Past Surgical History: Procedure Laterality Date CHOLECYSTOTOMY OR CHOLECYSTOSTOMY, OPEN COLONOSCOPY several--Dr. Robb. normal PATIENT HAS A CORONARY ARTERY STENT 1999 REMOVAL OF APPENDIX remote SUTURE REPAIR OF [...] a day Substance Use Topics Alcohol use: Not Currently Comment: rare Vaping/E-Cigarette Use Vaping/E-Cigarette Use Never User Vaping/E-Cigarette Substances Vaping/E-Cigarette Devices ROS: -Per HPI OBJECTIVE: BP 126/64 | Pulse 87 | Temp 35.9 C (96.6 F) | Wt 89.1 kg (196 lb 6.4 oz) | SpO2 81% | BMI 33.71kg/m | BSA 2.01 m PHYSICAL EXAM: Vitals are reviewed General:. NAD, well developed HEENT:. Normal Conjunctiva, EOMI Cardiac:.systolic murmur Lungs:good air entry b/l, no wheezing Gluteal area: dry skin near the gluteal cleft, no bleeding or ulcers or discharge Psych:. AAOx3, normal affect ASSESSMENT/PLAN: Due to chronic hypoxia pt would benefit from portable oxygen concentrator Pain in joint of right shoulder (Primary) - XR SHOULDER, 2 OR MORE VIEWS - ORTHOPAEDICS REFERRAL OP - predniSONE 20 MG Oral Tablet (Deltasone); Take 2 Tablets by mouth in the morning for 5 days. Chronic hypoxemic respiratory failure (HCC) - DURABLE MEDICAL EQUIPMENT Dyslipidemia, goal LDL below 100 - LIPID PANEL WITHOUT DIRECT LDL Prediabetes - HEMOGLOBIN A1C Undiagnosed cardiac murmurs - ECHO, COMPLETE (2D), TRANS-THORACIC Skin abrasion - recommended vaseline BID ESRD (end stage renal disease) (HCC) - likely starting dialysis soon Follow Up: Return in about 6 months (around 01/23/2024). I spent a total of 40-54 minutes (exact time 42 mins) on the date of service in preparation, delivery, and documentation of the care provided to Justin Pinedo excluding any time spent in the performance of separately billed services. Jody Arora MD Family medicine, [address] [address] documented in this encounter Nursing Notes * Elisa Mcmahon CMA - 07/23/2023 1:45 PM EDT He is here for a recheck today. documented in this encounter Plan of Treatment Upcoming Encounters Date Type Department Care Team (Late st Contact Info) Description 08/05/2023 10:40 AM EDT Office Visit Ophthalmology, [facility] [address] [place] [address] Sergio Jung, DO [address] [place] [address] 08/21/2023 1:00 PM EDT Office Visit Palliative Medicine [facility] [address] [place] [id number] Brielle Schmidt MD [address] [place] [address] [place] [address] 02/10/2024 1:00 PM EST Imaging Radiology [facility] [address] [facility] [address] [place] [address] 02/25/2024 4:00 PM EST Office Visit Urology, [facility] [address] [place] [address] Cameron Romeo MD [address] [place] [address] [place] [address] 04/09/2024 2:20 PM EST Office Visit Nephrology [address] [place] [address] Rosy Patel [facility] [address] [facility] [address] Pending Results Name Type Priority Associated Diagnoses Date /Time HEMOGLOBIN A1C Lab Routine Prediabetes 07/23/2023 2:30 PM EDT LIPID PANEL WITHOUT DIRECT LDL Lab Routine Dyslipidemia, goal LDL below 100 07/23/2023 2:30 PM EDT XR SHOULDER, 2 OR MORE VIEWS Medical Imaging Routine Pain in joint of right shoulder 07/23/2023 2:29 PM EDT Scheduled Orders Name Type Priority Associated Diagnoses Orde r Schedule ECHO, COMPLETE (2D), TRANS-THORACIC Echocardiology Routine Undiagnosed cardiac murmurs Ordered: 07/23/2023 Scheduled Referrals Name Type Priority Associated Diagnoses Order Schedule ORTHOPAEDICS REFERRAL OP Referral Within 30 days (routine) Pain in joint of right shoulder Ordered: 07/23/2023 Health Maintenance Due Date Last Done Comments [...] shoulder- Primary Pain in joint, shoulder region Chronic hypoxemic respiratory failure (HCC) Chronic respiratory failure Dyslipidemia, goal LDL below 100 Other and unspecified hyperlipidemia Prediabetes Other abnormal glucose Undiagnosed cardiac murmurs Skin abrasion Abrasion or friction burn of other, multiple, and unspecified sites, without mention of infection ESRD (end stage renal disease) (HCC) End stage renal disease documented in this encounter Care Teams Machine I Cutter Relationship Specialty Start Date End Date Jody Arora MD [address] [place] [address] [place] [phone] PCP - General Family Medicine 11/21/21 documented as of this encounter
--- OUTSIDE RECORDS SUMMARY | 2023-08-27 01:24 | External Medical Summary | Summary of Care ---
Author Name Unknown Organization [facility] Address [address] [place] [address] Phone [phone] Care Team Providers Care Distillery Miller Helper Name Role Phone Jody Arora MD Primary Care Provide r Reason for Visit * Reason Onset Date Comments Appointment 07/15/2023 Return in about 2 months (around 09/14/2023) for clinic visit w/ . Check-out Comments: WaitlistMD only Encounter Details Date Type Department Care Team (Late st Contact Info) Description 07/15/[address] [place] [address] Rosy Patel MD [address] [facility] [place] [address] Appointment (Return in about 2 months (eduardo... Allergies No known active allergiesdocumented as of this encounter (statuses as of 07/19/2023) Medications Medication Sig Dispensed Refills Start Date [...] (HCC),COPD, group C, by GOLD 2017 classification ([facility]) Inhale 3 mL via nebulizer [...] Respimat 2.5 MCG/ACT Inhalation Aerosol Solution (Tiotropium [place] Monohydrate) Inhale 2 Puffs by mouth in the morning. 4 g 2 4 07/23/19 24 Active hydrOXYzine HCl 50 MG Oral TabletIndications:P rimary insomnia TAKE 1 TABLET BY MOUTH AT BEDTIME NEEDED FOR INSOMNIA 30 Tablet 3 4 Active Additional Information Patient not taking.Reported on 06/20/2023 Fluticasone-Salmete rol 250-50 MCG/ACT Inhalation Aerosol Powder Breath Activated (Advair Diskus)Indications: COPD, group C, by GOLD 2017 classification ([facility]) INHALE 1 DOSE BY MOUTH IN THE MORNING AND 1 AT BEDTIME 60 Each 0 4 Active Ventolin HFA 108 (90 Base) MCG/ACT Inhalation Aerosol SolutionIndications :COPD, group D, by GOLD 2017 classification ([facility]) Inhale 2 Puffs by mouth every 4 hours as needed for Wheezing. 18 g 2 4 Active Albuterol Sulfate (2.5 MG/3ML) 0.083% Inhalation Nebulization Solution (Proventil)Indicati ons:COPD, group D, by GOLD 2017 classification ([facility]) Inhale 1 Vial via nebulizer every 4 hours as needed for Wheezing. 100 mL 1 4 Active predniSONE 5 MG Oral Tablet (Deltasone) Take 4 tab Daily for 5 Days Then 3 Tab daily for 5 days Then 2 tab daily for 5 days Then 1 tabe daily for 5 days and STOP 50 Tablet 0 4 Active Additional Information Patient not taking.Reported on 06/20/2023 Albuterol Sulfate (2.5 MG/3ML) 0.083% Inhalation Nebulization Solution (Proventil)Indicati ons:Pneumonia due to COVID-19 virus Inhale 1 Vial via nebulizer every 6 hours as needed for Wheezing. 360 mL 0 4 Active Torsemide 20 MG Oral Tablet (Demadex)Indication s:ESRD needing dialysis ([facility]) Take 4 Tablets by mouth 2 times a day in the morning and at noon. 120 Tablet 5 4 Active Carvedilol 3.125 MG Oral Tablet (Coreg) Take 1 tablet by mouth twice daily with food 180 Tablet 1 3 07/18/19 24 Discontinued Hospital, Clinic, or Other Facility Administered Medication Ordered Dose Route Frequency Start Date End Date Status Albuterol Sulfate (Proventil) (5 MG/ML) 0.5% *conc* inhalation solution 2.5 mgIndications:Chronic hypoxemic respiratory failure (HCC),COPD, group C, by GOLD 2017 classification ([facility]),Martin miners' lung (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 States he was advised he was not a surgical candidate. Carotid stenosis, right 07/11/2017 History of stroke 07/11/2017 Overview: TIA vs lacunar stroke diagnosed on head CT in [place] Apr 2017. Follow up MRI [facility] no infarct. Anxiety 07/11/2017 HTN, goal below 140/90 08/02/2015 Coronary artery disease Dyslipidemia, goal LDL below 100 documented as of this encounter (statuses as of 07/19/2023) Resolved Problems Problem Noted Date Diagnosed Date [...] as of this encounter (statuses as of 07/19/2023) Immunizations Name Administration Dates Next Due COVID-19 [...] Telephone Encounter - Gabby Sosa RN - 07/18/2023 3:40 PM EDT Attempted tp call [facility] back. Left message. Pt is aware that the information has been sent to get him established for HD in [place] starting next week. * Telephone Encounter - Lita Palacios OSA - 07/18/2023 2:30 PM EDT Good afternoon, Hilario from [facility] on the line, she is asking for a call back. She can be reached at [phone] ext [phone]. Thank you * Telephone Encounter - Gabby Sosa RN - 07/18/2023 9:34 AM EDT Quiana RN at [facility] notified this morning of projected start date for this patient. Attempted to call pt and LMAM with call back number. Admission packet faxed to [facility]. * Telephone Encounter - Rosy Patel MD - 07/17/2023 1:12 PM EDT Pls arrange earlier appt per OV note in case he does not stay on dialysis Pls send paperowrk to [facility] admissions for cyclone admission 3 days weekly; frail patient; will be a trial to see if he tolerates Pls let pt know you did this/next steps; he is not to start before next week (so I can give orders) * Telephone Encounter - Nancy Seals LPN - 07/15/2023 3:26 PM EDT Please arrange earlier apt * Telephone Encounter - Venu Dempsey OSA - 07/15/2023 2:13 PM EDT Nothing avail. Pt is scheduled in 03/2024. Added to wait list. Please schedule pt in an earlier appt. Thank you. documented in this encounter Plan of Treatment Upcoming Encounters Date Type Department Care Team (Late st Contact Info) Description 07/23/2023 1:40 PM EDT Office Visit Family [address] [place] [phone] Jody Arora MD [address] [place] [address] [place] [address] 08/05/2023 10:40 AM EDT Office Visit Ophthalmology, [facility] [address] [place] [address] Sergio Jung, DO [address] [place] [address] 08/21/2023 1:00 PM EDT Office Visit Palliative Medicine [facility] [address] [place] [id number] Brielle Schmidt MD [address] [place] [address] [place] [address] 02/10/2024 1:00 PM EST Imaging Radiology [facility] [address] [place] [address] 02/25/2024 4:00 PM EST Office Visit Urology, [facility] [address] [place] [address] Cameron Romeo MD [address] [place] [address] [place] [address] 04/09/2024 2:20 PM EST Office Visit Nephrology [address] [place] [address] Rosy Patel MD [address] [facility] [place] [address] Health Maintenance Due Date Last Done Comments [...] filedocumented as of this encounter Care Teams Distillery Miller Helper Relationship Specialty Start Date End Date Jody Arora MD [address] [place] [address] [place] [address] PCP - General Family Medicine 11/21/21 documented as of this encounter
--- OUTSIDE RECORDS SUMMARY | 2023-08-27 01:24 | External Medical Summary | Summary of Care ---
Author Name Unknown Organization [facility] Address [address] [place] [address] Phone [phone] Care Team Providers Care Flue Tile Press Operator Name Role Phone Jody Arora MD Primary Care Provide r Reason for Visit * Reason Onset Date Comments Appointment 07/15/2023 Return in about 2 months (around 09/14/2023) for clinic visit w/ . Check-out Comments: WaitlistMD only Encounter Details Date Type Department Care Team (Late st Contact Info) Description 07/15/2023 Telephone [address] [place] [address] Rosy Patel MD 200 [facility] [place] [address] Appointment (Return in about 2 months (eduardo... Allergies No known active allergiesdocumented as of this encounter (statuses as of 07/18/2023) Medications Medication Sig Dispensed Refills Start Date [...] (HCC),COPD, group C, by GOLD 2017 classification ([facility]) Inhale 3 mL via [...] Respimat 2.5 MCG/ACT Inhalation Aerosol Solution (Tiotropium [place] Monohydrate) Inhale 2 Puffs by mouth in [...] COPD, group C, by GOLD 2017 classification ([facility]) INHALE 1 DOSE BY MOUTH IN THE MORNING AND 1 AT BEDTIME 60 Each 0 4 Active Ventolin HFA 108 (90 Base) MCG/ACT Inhalation Aerosol SolutionIndications :COPD, group D, by GOLD 2017 classification ([facility]) Inhale 2 Puffs by mouth every 4 hours as needed for Wheezing. 18 g 2 4 Active Albuterol Sulfate (2.5 MG/3ML) 0.083% Inhalation Nebulization Solution (Proventil)Indicati ons:COPD, group D, by GOLD 2017 classification ([facility]) Inhale 1 Vial via [...] MG Oral Tablet (Demadex)Indication s:ESRD needing dialysis ([facility]) Take 4 Tablets by [...] (HCC),COPD, group C, by GOLD 2017 classification ([facility]),[place] miners' lung ([facility]) 2.5 mg NEBULIZER PRN 04/24/2023 04/23/2024 Active Albuterol Sulfate (Proventil) (2.5 MG/3ML) 0.083% inhalation solution 2.5 mgIndications:Chronic hypoxemic respiratory failure (HCC),COPD, group C, by GOLD 2017 classification (HCC),[place]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) 2.5 mg NEBULIZER PRN 04/24/2023 04/23/2024 Active documented as of this encounter (statuses as of 07/18/2023) Active Problems Problem Noted Date Diagnosed Date COPD, group D, by GOLD 2017 classification 04/29 Overview: Per COPD GOLD Classification [place] 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 Follow up [facility] no infarct. Anxiety 07/11/2017 HTN, goal below 140/90 08/02/2015 Coronary artery disease Dyslipidemia, goal LDL below 100 documented as of this encounter (statuses as of 07/18/2023) Resolved Problems Problem Noted Date Diagnosed Date [...] as of this encounter (statuses as of 07/18/2023) Immunizations Name Administration Dates Next Due COVID-19 [...] encounter Miscellaneous Notes * Telephone Encounter - Lita Palacios OSA - 07/18/2023 2:30 PM EDT Hilario Cisse from [facility] on the line, she is asking for a call back. She can be reached at [phone]. Thank you * Telephone Encounter - Gabby Sosa RN - 07/18/2023 9:34 AM EDT Quiana ROMANO at [facility] notified this morning of projected start date for this patient. Attempted to call pt and LMAM with call back number. Admission packet faxed to [facility]. * Telephone Encounter - Rosy Patel MD - 07/17/2023 1:12 PM EDT Pls arrange earlier appt per OV note in case he does not stay on dialysis Pls send paperowrk to [facility] admissions for [place] admission 3 days weekly; frail patient; will [...] 1:40 PM EDT Office Visit Family Medicine [address] [place] [phone] Jody Arora MD [address] [place] [address] [place] [address] 08/05/2023 10:40 AM EDT Office Visit Ophthalmology, [address] [place] [address] Sergio Jung T, DO [address] [place], [place] [address] [address] 08/21/2023 1:00 PM EDT Office Visit Palliative Medicine [facility] [address] [place] [address] Brielle Schmidt MD 400 [facility] [place] [address] 02/10/2024 1:00 PM EST Imaging Radiology [facility] 1st [facility] 132 [facility] [address] 02/25/2024 4:00 PM EST Office Visit Urology, [facility] 132 [facility] [place] [address] Cameron Romeo MD 27 [facility] 270 [place] [id number] 04/09/2024 2:20 PM EST Office Visit Nephrology [address] [place] [address] Rosy [facility]el MD 200 [facility] [address] Health Maintenance Due Date Last Done Comments Alpha-1 Antitrypsin 1958 *COPD SEVERITY VERIFIED BY PFT 07/16/2020 Hepatitis B (3 of 3 - 19+ 3-dose series) 03/20/2023 01/23/2023, 01/08/2018 GFR 01/09/2024 07/10/2023, 06/16, 06/20/2023, Additional history exists Depression Screening 05/19/2024 05/20/2023 Hgb 06/19/2024 06/20/2023, 02/15, 12/24/2022, Additional history exists Albumin/Creatinine Ratio 07/09/20242 024, 08/08/2022, 12/07/2021, Additional history exists PTH [...] filedocumented as of this encounter Care Teams Flue Tile Press Operator Relationship Specialty Start Date End Date Jody Arora MD [address] [place] [address] [place] [address] PCP - General Family Medicine 11/21/21 documented as of this encounter
--- OUTSIDE RECORDS SUMMARY | 2023-08-27 01:24 | External Medical Summary | Summary of Care ---
Author Name Unknown Organization [facility] Address [address] [place] [address] Phone [phone] Care Team Providers Care Termite Helper Name Role Phone Jody Arora MD Primary Care Provide r Reason for Visit * Reason Onset Date Comments Appointment 07/15/2023 Return in about 2 months (around 09/14/2023) for clinic visit w/ . Check-out Comments: WaitlistMD only Encounter Details Date Type Department Care Team (Late st Contact Info) Description 07/15/2023 Telephone Ne[address]rology [address] [place] [address] Rosy Patel MD 200 [facility] [place] [address] Appointment (Return in about 2 months [...] group C, by GOLD 2017 classification ([facility]) Inhale 3 mL via nebulizer every [...] Respimat 2.5 MCG/ACT Inhalation Aerosol Solution (Tiotropium [place] Monohydrate) Inhale 2 Puffs by mouth in [...] group C, by GOLD 2017 classification ([facility]) INHALE 1 DOSE BY MOUTH IN THE MORNING AND 1 AT BEDTIME 60 Each 0 4 Active Ventolin HFA 108 (90 Base) MCG/ACT Inhalation Aerosol SolutionIndications :COPD, group D, by GOLD 2017 classification ([facility]) Inhale 2 Puffs by mouth every 4 hours as needed for Wheezing. 18 g 2 4 Active Albuterol Sulfate (2.5 MG/3ML) 0.083% Inhalation Nebulization Solution (Proventil)Indicati ons:COPD, group D, by GOLD 2017 classification ([facility]) Inhale 1 Vial via nebulizer every [...] MG Oral Tablet (Demadex)Indication s:ESRD needing dialysis ([facility]) Take 4 Tablets by mouth 2 times [...] group C, by GOLD 2017 classification ([facility]),[place] miners' lung ([facility]) 2.5 mg NEBULIZER PRN 04/24/2023 04/23/2024 Active Albuterol Sulfate (Proventil) (2.5 MG/3ML) 0.083% inhalation solution 2.5 mgIndications:Chronic hypoxemic respiratory failure (HCC),COPD, group C, by GOLD 2017 classification (HCC),[place]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) 2.5 mg NEBULIZER PRN 04/24/2023 04/23/2024 Active documented as of this encounter (statuses as of 07/18/2023) Active Problems Problem Noted Date Diagnosed Date COPD, group D, by GOLD 2017 classification 04/29 Overview: Per COPD GOLD Classification [place] 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 Follow up MRI [facility] [...] 07/18/2023 3:40 PM EDT Attempted tp call [facility] back. Left message. Pt is aware that the information has been sent to get him established for HD in [place] starting next week. * Telephone Encounter - Lita Palacios OSA - 07/18/2023 2:30 PM EDT Good afternoon, Hilario from [facility] on the line, she is asking for a call back. She can be reached at [phone] ext [phone]. Thank you * Telephone Encounter - Gabby Sosa RN - 07/18/2023 9:34 AM EDT Quiana RN at [facility] notified this morning of projected start date for this patient. Attempted to call pt and LMAM with call back number. Admission packet faxed to [facility]. * Telephone Encounter - Rosy Patel MD - 07/17/2023 1:12 PM EDT Pls arrange earlier appt per OV note in case he does not stay on dialysis Pls send paperowrk to [facility] admissions for [place] admission 3 days weekly; frail patient; will [...] 07/23/2023 1:40 PM EDT Office Visit Family [address] [place] [phone] Jody Arora MD [address] [place] [address] [place] [address] 08/05/2023 10:40 AM EDT Office Visit Ophthalmology, [facility] 132 [place] [address] Sergio Jung, DO 16 [place] [address] 08/21/2023 1:00 PM EDT Office Visit Palliative Medicine [facility] 200 [place] [address] Brielle Schmidt MD [address] [place] [address] [place] [address] 02/10/2024 1:00 PM EST Imaging Radiology [facility] 1st [facility] 132 [place] [address] 02/25/2024 4:00 PM EST Office Visit Urology, [facility] 132 [place] [address] Cameron Romeo MD [address] [place] [address] [place] [address] 04/09/2024 2:20 PM EST Office Visit Nephrology [address] [place] [address] Rosy Patel MD 200 [facility] [place] [address] Health Maintenance Due Date Last Done Comments [...] filedocumented as of this encounter Care Teams Termite Helper Relationship Specialty Start Date End Date Jody Arora MD [address] [place] [address] [place] [address] PCP - General Family Medicine 11/21/21 documented as of this encounter
--- OUTSIDE RECORDS SUMMARY | 2023-08-27 01:24 | External Medical Summary | Summary of Care ---
Author Name Unknown Organization [facility] Address [address] [place] [address] Phone [phone] Care Team Providers Care Thermal Molder Name Role Phone Jody Arora MD Primary Care Provide r Reason for Visit * Reason Onset Date Comments Appointment 07/15/2023 Return in about 2 months (around 09/14/2023) for clinic visit w/ . Check-out Comments: WaitlistMD only Encounter Details Date Type Department Care Team (Late st Contact Info) Description 07/15/2023 Telephone Nephrology [address] [place] [address] Rosy Patel MD 200 [facility] [place] [address] Appointment (Return in about 2 months [...] group C, by GOLD 2017 classification ([facility]) Inhale 3 mL via nebulizer every [...] Respimat 2.5 MCG/ACT Inhalation Aerosol Solution (Tiotropium [place] Monohydrate) Inhale 2 Puffs by mouth in [...] COPD, group C, by GOLD 2017 classification ([facility]) INHALE 1 DOSE BY MOUTH IN THE MORNING AND 1 AT BEDTIME 60 Each 0 4 Active Ventolin HFA 108 (90 Base) MCG/ACT Inhalation Aerosol SolutionIndications :COPD, group D, by GOLD 2017 classification ([facility]) Inhale 2 Puffs by mouth every 4 hours as needed for Wheezing. 18 g 2 4 Active Albuterol Sulfate (2.5 MG/3ML) 0.083% Inhalation Nebulization Solution (Proventil)Indicati ons:COPD, group D, by GOLD 2017 classification ([facility]) Inhale 1 Vial via nebulizer every [...] MG Oral Tablet (Demadex)Indication s:ESRD needing dialysis ([facility]) Take 4 Tablets by mouth 2 [...] group C, by GOLD 2017 classification ([facility]),[place] miners' lung ([facility]) 2.5 mg NEBULIZER PRN 04/24/2023 04/23/2024 Active Albuterol Sulfate (Proventil) (2.5 MG/3ML) 0.083% inhalation solution 2.5 mgIndications:Chronic hypoxemic respiratory failure (HCC),COPD, group C, by GOLD 2017 classification (HCC),[place]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) 2.5 mg NEBULIZER PRN 04/24/2023 04/23/2024 Active documented as of this encounter (statuses as of 07/19/2023) Active Problems Problem Noted Date Diagnosed Date COPD, group D, by GOLD 2017 classification 04/29 Overview: Per COPD GOLD Classification [place] 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 [facility] [...] Telephone Encounter - Gabby Sosa RN - 07/19/2023 9:11 AM EDT Spoke with Poppy at [facility]. Information confirmed. * Telephone Encounter - Gabby Sosa RN - 07/18/2023 3:40 PM EDT Attempted tp call [facility] back. Left message. Pt is aware that the information has been sent to get him established for HD in [place] starting next week. * Telephone Encounter - Lita Palacios OSA - 07/18/2023 2:30 PM EDT Good afternoon, Hilario from [facility] on the line, she is asking for a call back. She can be reached at [phone] ext [phone]. Thank you * Telephone Encounter - Gabby Sosa RN - 07/18/2023 9:34 AM EDT Quiana ROMANO at [facility] notified this morning of projected start date for this patient. Attempted to call pt and LMAM with call back number. Admission packet faxed to [facility]. * Telephone Encounter - Rosy Patel MD - 07/17/2023 1:12 PM EDT Pls arrange earlier appt per OV note in case he does not stay on dialysis Pls send paperowrk to [facility] admissions for [place] admission 3 days weekly; frail patient; will [...] 1:40 PM EDT Office Visit Family Medicine [address] [place] [phone] Jody Arora MD [address] [place] [address] [place] [address] 08/05/2023 10:40 AM EDT Office Visit Ophthalmology, [facility] 132 [place] [address] Sergio Jung, DO 16 [place] [address] 08/21/2023 1:00 PM EDT Office Visit Palliative Medicine [facility] 200 [place] [phone] Brielle Schmidt MD [address] [place] [address] [place] [address] 02/10/2024 1:00 PM EST Imaging [facility] 132 [place] [address] 02/25/2024 4:00 PM EST Office Visit Urology, [facility] 132 [place] [address] Cameron Romeo MD [address] [place] [address] [place] [address] 04/09/2024 2:20 PM EST Office Visit Nephrology [address] [place] [address] Rosy Patel MD 200 [place] [address] Health Maintenance Due Date Last Done Comments [...] filedocumented as of this encounter Care Teams Thermal Molder Relationship Specialty Start Date End Date Jody Arora MD [address] [place] [address] [place] [address] PCP - General Family Medicine 11/21/21 documented as of this encounter
--- OUTSIDE RECORDS SUMMARY | 2023-08-27 01:24 | External Medical Summary | Summary of Care ---
Author Name Unknown Organization [facility] Address [address] [place] [address] Phone [phone] Care Team Providers Care At Risk Paraprofessional Name Role Phone Jody Arora MD Primary Care Provide r Reason for Visit * Reason Onset Date Comments Fax 07/15/2023 Encounter Details Date Type Department Care Team (Late st Contact Info) Description 07/15/2023 Telephone NephrologyMitzi 200 [place] [address] PatelRosy fine MD 200 [place] [address] Fax Allergies No known active allergiesdocumented as of [...] Respimat 2.5 MCG/ACT Inhalation Aerosol Solution (Tiotropium [place] Monohydrate) Inhale 2 Puffs by mouth in [...] COPD, group C, by GOLD 2017 classification ([facility]) INHALE 1 DOSE BY MOUTH IN THE MORNING AND 1 AT BEDTIME 60 Each 0 4 Active Ventolin HFA 108 (90 Base) MCG/ACT Inhalation Aerosol SolutionIndications :COPD, group D, by GOLD 2017 classification ([facility]) Inhale 2 Puffs by mouth every 4 hours as needed for Wheezing. 18 g 2 4 Active Albuterol Sulfate (2.5 MG/3ML) 0.083% Inhalation Nebulization Solution (Proventil)Indicati ons:COPD, group D, by GOLD 2017 classification ([facility]) Inhale 1 Vial via nebulizer every 4 [...] MG Oral Tablet (Demadex)Indication s:ESRD needing dialysis (HCC) Take 4 Tablets by [...] group C, by GOLD 2017 classification ([facility]),[place] miners' lung ([facility]) 2.5 mg NEBULIZER PRN 04/24/2023 04/23/2024 Active Albuterol Sulfate (Proventil) (2.5 MG/3ML) 0.083% inhalation solution 2.5 mgIndications:Chronic hypoxemic respiratory failure (HCC),COPD, group C, by GOLD 2017 classification ([facility]),[place]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) 2.5 mg NEBULIZER PRN 04/24/2023 04/23/2024 Active documented as of this encounter (statuses as of 07/23/2023) Active Problems Problem Noted Date Diagnosed Date COPD, group D, by GOLD 2017 classification 04/29 Overview: Per COPD GOLD Classification [place] 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 States he was advised he was not a surgical candidate. Carotid stenosis, right 07/11/2017 History of stroke 07/11/2017 Overview: TIA vs lacunar stroke diagnosed on head CT in [place] Apr 2017. Follow up MRI [facility] no infarct. Anxiety 07/11/2017 HTN, goal [...] Telephone Encounter - Gabby Sosa RN - 07/15/2023 1:00 PM EDT Fax received from office today at request by phone. * Telephone Encounter - Gabby Sosa RN - 07/15/2023 1:00 PM EDT ----- Message from Rosy Patel MD sent at 07/15/2023 12:34 PM EDT ----- Pls ask [facility] for Dr Shankar's last OV note >> secnod requiqest (did nto receive in last 63 pg packet) documented in this encounter Plan of Treatment Upcoming Encounters Date Type Department Care Team (Late st Contact Info) Description 07/23/2023 1:40 PM EDT Office Visit Family Medicine [address] [place] [phone] Jody Arora MD [address] [place] [address] [place] [address] 08/05/2023 10:40 AM EDT Office Visit Ophthalmology, [facility] 132 [place] [address] Sergio Jung, DO 16 [place] [address] 08/21/2023 1:00 PM EDT Office Visit Palliative Medicine [facility] 200 [place] [phone] Brielle Schmidt MD [address] [place] [address] [place] [address] 02/10/2024 1:00 PM EST Imaging Radiology [facility] 1st [facility] 132 [place] [address] 02/25/2024 4:00 PM EST Office Visit Urology, [facility] 132 [facility] [place] [address] Cameron Romeo MD [address] [place] [address] [place] [address] 04/09/2024 2:20 PM EST Office Visit Nephrology [address] [place] [address] Rosy Patel MD 200 [facility] [address] Health Maintenance Due Date Last Done Comments [...] filedocumented as of this encounter Care Teams At Risk Paraprofessional Relationship Specialty Start Date End Date Jody Arora MD [address] [place] [address] [place] [phone] PCP - General Family Medicine 11/21/21 documented as of this encounter
--- OUTSIDE RECORDS SUMMARY | 2023-08-27 01:24 | External Medical Summary | Summary of Care ---
Author Name Unknown Organization [facility] Address [address] [place] [address] Phone [phone] Care Team Providers Care Animal Control Licensing Worker Name Role Phone Jody Arora MD Primary Care Provide r Reason for Visit * Reason Onset Date Comments Advice 07/22/2023 Encounter Details Date Type Department Care Team (Late st Contact Info) Description 07/22/2023 Telephone Family [address] [place] [phone] Jody Arora MD [address] [place] [address] [place] [address] Advice Allergies No known [...] C, by GOLD 2017 classification ([facility]) Inhale 3 mL via nebulizer [...] Respimat 2.5 MCG/ACT Inhalation Aerosol Solution (Tiotropium [place] Monohydrate) Inhale 2 Puffs by mouth in [...] C, by GOLD 2017 classification ([facility]) INHALE 1 DOSE BY MOUTH IN THE MORNING AND 1 AT BEDTIME 60 Each 0 05/28/2023 Active Ventolin HFA 108 (90 Base) MCG/ACT Inhalation Aerosol SolutionIndications: COPD, group D, by GOLD 2017 classification ([facility]) Inhale 2 Puffs by mouth every 4 hours as needed for Wheezing. 18 g 2 05/28/2023 Active Albuterol Sulfate (2.5 MG/3ML) 0.083% Inhalation Nebulization Solution (Proventil)Indicatio ns:COPD, group D, by GOLD 2017 classification ([facility]) Inhale 1 Vial via nebulizer [...] C, by GOLD 2017 classification ([facility]),[place] miners' lung ([facility]) 2.5 mg NEBULIZER PRN 04/24/2023 04/23/2024 Active Albuterol Sulfate (Proventil) (2.5 MG/3ML) 0.083% inhalation solution 2.5 mgIndications:Chronic hypoxemic respiratory failure (HCC),COPD, group C, by GOLD 2017 classification ([facility]),[place]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) 2.5 mg NEBULIZER PRN 04/24/2023 04/23/2024 Active documented as of this encounter (statuses as of 07/23/2023) Active Problems Problem Noted Date Diagnosed Date COPD, group D, by GOLD 2017 classification 04/29 Overview: Per COPD GOLD Classification [place] 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 States he was advised he was not a surgical candidate. Carotid stenosis, right 07/11/2017 History of stroke 07/11/2017 Overview: TIA vs lacunar stroke diagnosed on head CT in [place] Apr 2017. Follow up MRI [facility] [...] Telephone Encounter - Jody Arora MD - 07/23/2023 7:30 AM EDT Will do necessary lab during the clinic visit. No need for labs prior - I'm seeing the pt today * Telephone Encounter - Mary Yepez LPN - 07/22/2023 3:19 PM EDT Pt calling to inquiring if he needs to have blood work done prior to his appt tomorrow. Please advise. documented in this encounter Plan of Treatment Upcoming Encounters Date Type Department Care Team (Late st Contact Info) Description 07/23/2023 1:40 PM EDT Office Visit Family Medicine [address] [place] [address] Jody Arora MD [address] [place] [address] [place] [address] 08/05/2023 10:40 AM EDT Office Visit Ophthalmology, [facility] 132 [place] [address] Sergio Jung, DO 16 [place] [address] 08/21/2023 1:00 PM EDT Office Visit Palliative Medicine [facility] 200 [place] [phone] Brielle Schmidt MD [address] [place] [address] 02/10/2024 1:00 PM EST Imaging Radiology [facility] 1st [facility] 132 [place] [address] 02/25/2024 4:00 PM EST Office Visit Urology, [facility] 132 [place] [address] Cameron Romeo MD [address] [place] [address] 04/09/2024 2:20 PM EST Office Visit Nephrology [address] [place] [address] Rosy Patel MD 200 [place] [address] Health Maintenance Due Date Last Done Comments [...] filedocumented as of this encounter Care Teams Animal Control Licensing Worker Relationship Specialty Start Date End Date Jody Arora MD [address] [place] [address] [place] [address] PCP - General Family Medicine 11/21/21 documented as of this encounter
--- OUTSIDE RECORDS SUMMARY | 2023-08-27 01:25 | External Medical Summary | Summary of Care ---
Author Name Unknown Organization [facility] Address [address] [place] [address] Phone [phone] Care Team Providers Care Switch Adjuster Name Role Phone Jody Arora MD Primary Care Provide r Reason for Visit * Reason Comments eRx-Medication Refill Encounter Details Date Type Department Care Team (Late st Contact Info) Description 07/17/2023 Refill Family Medicine [address] [place] [address] Jody Arora MD [address] [place] [address] [place] [address] Allergies No known active allergiesdocumented as [...] C, by GOLD 2017 classification ([facility]) Inhale 3 mL via nebulizer every [...] Respimat 2.5 MCG/ACT Inhalation Aerosol Solution (Tiotropium [place] Monohydrate) Inhale 2 Puffs by mouth in [...] COPD, group C, by GOLD 2017 classification ([facility]) INHALE 1 DOSE BY MOUTH IN THE MORNING AND 1 AT BEDTIME 60 Each 0 03/12/202 4 Active Ventolin HFA 108 (90 Base) MCG/ACT Inhalation Aerosol SolutionIndications :COPD, group D, by GOLD 2017 classification ([facility]) Inhale 2 Puffs by mouth every 4 hours as needed for Wheezing. 18 g 2 4 Active Albuterol Sulfate (2.5 MG/3ML) 0.083% Inhalation Nebulization Solution (Proventil)Indicati ons:COPD, group D, by GOLD 2017 classification ([facility]) Inhale 1 Vial via nebulizer every [...] MG Oral Tablet (Demadex)Indication s:ESRD needing dialysis ([facility]) Take 4 Tablets by mouth 2 times a day in the morning and at noon. 120 Tablet 5 4 Active Carvedilol 3.125 MG Oral Tablet (Coreg) Take 1 tablet by mouth twice daily with food 180 Tablet 1 4 Active Carvedilol 3.125 MG Oral Tablet (Coreg) Take 1 tablet by mouth twice daily with food 180 Tablet 1 3 07/18/19 24 Discontinued Hospital, Clinic, or Other Facility Administered Medication Ordered Dose Route Frequency Start Date End Date Status Albuterol Sulfate (Proventil) (5 MG/ML) 0.5% *conc* inhalation solution 2.5 mgIndications:Chronic hypoxemic respiratory failure (HCC),COPD, group C, by GOLD 2017 classification ([facility]),[place]ake miners' lung ([facility]) 2.5 mg NEBULIZER PRN 04/24/2023 04/23/2024 Active Albuterol Sulfate (Proventil) (2.5 MG/3ML) 0.083% inhalation solution 2.5 mgIndications:Chronic hypoxemic respiratory failure (HCC),COPD, group C, by GOLD 2017 classification (HCC),[place]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) 2.5 mg NEBULIZER PRN 04/24/2023 04/23/2024 Active documented as of this encounter (statuses as of 07/18/2023) Active Problems Problem Noted Date Diagnosed Date COPD, group D, by GOLD 2017 classification 04/29 Overview: Per COPD GOLD Classification [place] 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 Follow up [facility] [...] Notes * Telephone Encounter - [facility] - 07/18/2023 2:19 PM EDTSigned Prescriptions: Disp Refills Carvedilol 3.125 MG Oral Tablet (Coreg) 180 Ta*1 Sig: Take 1 tablet by mouth twice daily with foodAuthorizing Provider: Brittani ARORA User: [facility]ING [facility]ARD Electronically signed by [facility] at 07/18/2023 2:19 PM EDT documented in this encounter Plan of Treatment Upcoming Encounters Date Type Department Care Team (Late st Contact Info) Description 07/23/2023 1:40 PM EDT Office Visit Family Medicine [address] [place] [address] Jody rAora MD [address] [place] [address] [place] [address] 08/05/2023 10:40 AM EDT Office Visit Ophthalmology, [facility] [address] [place] [address] Sergio Jung, [address] [place] [address] 08/21/2023 1:00 PM EDT Office Visit Palliative Medicine [facility] [address] [place] [phone] Brielle Schmidt MD [address] [place] [address] [place] [address] 02/10/2024 1:00 PM EST Imaging Radiology [facility]st [facility] 132 [place] [address] 02/25/2024 4:00 PM EST Office Visit Urology, [address] [address] Cameron Romeo MD [address] [place] [address] [place] [address] 04/09/2024 2:20 PM EST Office Visit Nephrology [address] [place] [address] Rosy Patel MD [address] [facility] [address] Health Maintenance Due Date Last Done Comments [...] filedocumented as of this encounter Care Teams Switch Adjuster Relationship Specialty Start Date End Date Jody Arora MD [address] [place] [address] [place] [address] PCP - General Family Medicine 11/21/21 documented as of this encounter
--- OUTSIDE RECORDS SUMMARY | 2023-08-27 01:25 | External Medical Summary | Summary of Care ---
Author Name Unknown Organization [facility] Address [address] [place] [address] Phone [phone] Care Team Providers Care Doctor Of Nurse Anesthesia Name Role Phone Jody Arora MD Primary Care Provide r Reason for Visit * Reason Comments Follow Up Encounter Details Date Type Department Care Team (Late st Contact Info) Description 07/15/2023 11:30 AM EDT Office Visit Ophthalmology, [facility] [address] [facility] [place] [address] Sergio Jung, DO [address] [place] [address] Senile ectropion of both lower eyelids*; Tearing eyes Allergies No known active allergiesdocumented as of this encounter (statuses as of 07/15/2023) Medications Medication Sig Dispensed Refills Start Date [...] Respimat 2.5 MCG/ACT Inhalation Aerosol Solution (Tiotropium [place] Monohydrate) Inhale 2 Puffs by mouth in [...] MG Oral Tablet (Demadex)Indications :ESRD needing dialysis ([facility]) Take 4 Tablets by mouth 2 times a day in the morning and at noon. 120 Tablet 5 07/05/2023 Active Hospital, Clinic, or Other Facility Administered Medication Ordered Dose Route Frequency Start Date End Date Status Albuterol Sulfate (Proventil) (5 MG/ML) 0.5% *conc* inhalation solution 2.5 mgIndications:Chronic hypoxemic respiratory failure (HCC),COPD, group C, by GOLD 2017 classification ([facility]),[place] miners' lung ([facility]) 2.5 mg NEBULIZER PRN 04/24/2023 04/23/2024 Active Albuterol Sulfate (Proventil) (2.5 MG/3ML) 0.083% inhalation solution 2.5 mgIndications:Chronic hypoxemic respiratory failure (HCC),COPD, group C, by GOLD 2017 classification ([facility]),[place] miners' lung ([facility]) 2.5 mg NEBULIZER PRN 04/24/2023 04/23/2024 Active Tobramycin-dexAMETHason e (Tobradex) ophthalmic suspension 1 DropIndications:Senile ectropion of both lower eyelids,Tearing eyes 1 Drop OU ONCE 07/15/2023 07/16/2023 Acti ve documented as of this encounter (statuses as of 07/15/2023) Active Problems Problem Noted Date Diagnosed Date COPD, group D, by GOLD 2017 classification 04/29 Overview: Per COPD GOLD Classification [place] 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 States he was advised he was not a surgical candidate. Carotid stenosis, right 07/11/2017 History of stroke 07/11/2017 Overview: TIA vs lacunar stroke diagnosed on head CT in [place] Apr 2017. Follow up MRI [facility] no infarct. Anxiety 07/11/2017 HTN, goal below 140/90 08/02/2015 Coronary artery disease Dyslipidemia, goal LDL below 100 documented as of this encounter (statuses as of 07/15/2023) Resolved Problems Problem Noted Date Diagnosed Date [...] stenosis 01/15/2018 12/07/2021 Overview: Echo 12/2017. Dr Zaraogza. Anemia of chronic renal fail ure, stage 3 (moderate) 07/11/2017 11/02/2017 Overview: Per CKD protocol #1 - Basal cell carcinoma (BCC) of skin of face 07/11/2017 07/14/2018 Hyperkalemia 07/11/2017 12/07/2021 CKD (chronic kidney disease) stage 3, GFR 30-59 ml/min 01/28/2015 08/08/2017 documented as of this encounter (statuses as of 07/15/2023) Immunizations Name Administration Dates Next Due COVID-19 [...] encounter Progress Notes * Sergio Jung, - 07/15/2023 11:43 AM EDT Justin Pinedo is a 83 year old male who presents for recurrent right eye tearing. Pt reports ongoingissue for some time. Hx of LTS OU. Ophthalmology Past History: glasses Ophthalmology Family History: none Ophthalmology ROS: Positive for excessive tearing both eyes and no recent significant change in vision,no eye pain, redness, discharge,no diplopia Current Ophthalmic Medications: None EXAM: Base Eye Exam Visual Acuity (Snellen - Linear) Right Left Dist cc 20/30 20/30 -1 Correction: Glasses Extraocular Movement Right Left Full Full Neuro/Psych Oriented x3: Yes Mood/Affect: Normal Slit Lamp and Fundus Exam Slit Lamp [...] and reactive Lens PC IOL PC IOL Office Procedure Note: Name: Justin Pinedo MRD: [id number] DATE: 07/15/2023 PREOP DX: EPIPHORA both eyes POSTOP DX: SAME Procedure: Punctal dilation with irrigation both eyes both lids TECHNIQUE: After informed consent was obtained from the patient. Alcaine was instilled in the both eyes eye and a punctal dilater was passed into the inferior puncta with initial resistance that was overcome with gentle pressure. The dilator was then directed medially and superiorly. The dilator was removed and a lacrimal cannula was placed and the cannilicular system was irrigated with EYE STREAM. No regurge was identified and the system allowed free flow of irrigation fluid. The procedure wasrepeated on the left with free flow. The patient tolerated the procedure well without complication. Trial of tobradex QID for 7-10 days and if persists to consider 2 snip punctalplasty RLL +/- stent. IMPRESSION: 1. ectropions OU OD>OS recurrent severe floppy eyelids 2. DCL OU PLAN: 1. Photo today 2. R/B/A discussed including but not limited to pain, bleeding, scarring, infection, Loss of vision, loss of eye, need for further surgery, eye drops in the post operative period, the use of regionalor general anesthesia. 3. LTS OU may needs to be repeated 4. Tobradex QID both eyes 5. 3 week return Sergio Jung DO documented in this encounter Nursing Notes * Elizabeth Arvizu TECH - 07/15/2023 11:18 AM EDT Justin Pinedo is a 83 year old male who presents for Follow up. Last Visit: 05/08/2023 (in office), Visit date not found (telemedicine) He currently states that vision is good, but he is dealing with watery eyes. Are you diabetic? No Current Ophthalmic Medications: None [facility], IOP, current eyeglass Rx, and pupil check and dilation if needed can be found in ophth exam. documented in this encounter Plan of Treatment Upcoming Encounters Date Type Department Care Team (Late st Contact Info) Description 07/15/2023 12:20 PM EDT Office Visit Nephrology [address] [place] [address] Rosy Patle MD [address] [place] [address] 07/23/2023 1:40 PM EDT Office Visit Family Medicine [address] [place] [address] Jody Arora MD [address] [place] [address] [place] [address] 02/10/2024 1:00 PM EST Imaging Radiology [facility] [address] [facility] [place] [address] 02/25/2024 4:00 PM EST Office Visit Urology, [facility] [address] [facility] [place] [address] Cameron Romeo MD 27 [facility] [address] [place] [address] 04/09/2024 2:20 PM EST Office Visit Nephrology [address] [place] [address] Rosy Patel MD [address] [place] [address] Health Maintenance Due Date Last Done Comments Alpha-1 Antitrypsin 1958 *COPD SEVERITY VERIFIED BY PFT 07/16/2020 Hepatitis B (3 of 3 - 19+ 3-dose series) 03/20/2023 01/23/2023, 01/08/2018 GFR 01/09/2024 07/10/2023, 06/16, 06/20/2023, Additional history exists Depression Screening 05/19/2024 05/20/2023 Hgb 06/19/2024 06/20/2023, 02/15, 12/24/2022, Additional history exists Nephrology Referral 06/19/2024 06/20/2023 O2 ASSESSMENT COMPLETED IN PAST YEAR FOR COPD 06/19/2024 06/20/2023 Albumin/Creatinine Ratio 07/09/2024 024, 08/08/2022, 12/07/2021, Additional history exists PTH 07/09/2024 07/10/2023, 11/16, 07/12/2022, Additional history exists Phosphate 07/09/2024 07/10/2023, 03/18, 03/19/2023, Additional history exists DTaP,Tdap,and Td Vaccines (2 [...] Senile ectropion of both lower eyelids- Primary Tearing eyes Epiphora, unspecified as to cause documented in this encounter Care Teams Doctor Of Nurse Anesthesia Relationship Specialty Start Date End Date Jody Arora MD [address] [place] [address] [place] [address] PCP - General Family Medicine 11/21/21 documented as of this encounter
--- OUTSIDE RECORDS SUMMARY | 2023-08-27 01:25 | External Medical Summary | Summary of Care ---
Author Name Unknown Organization [facility] Address [address] [place] [address] Phone [phone] Care Team Providers Care Manager Of Construction Name Role Phone Jody Arora MD Primary Care Provide r Reason for Visit * Reason Onset Date Comments Fax 07/15/2023 Encounter Details Date Type Department Care Team (Late st Contact Info) Description 07/15/2023 Telephone NephrologyMitzi 200 [place] [address] PatelRosy fine MD [address] [place] [address] Fax Allergies No known active allergiesdocumented as [...] Respimat 2.5 MCG/ACT Inhalation Aerosol Solution (Tiotropium [place] Monohydrate) Inhale 2 Puffs by mouth in [...] MG Oral Tablet (Demadex)Indications :ESRD needing dialysis ([facility]) Take 4 Tablets by mouth 2 times a day in the morning and at noon. 120 Tablet 5 07/05/2023 Active Hospital, Clinic, or Other Facility Administered Medication Ordered Dose Route Frequency Start Date End Date Status Albuterol Sulfate (Proventil) (5 MG/ML) 0.5% *conc* inhalation solution 2.5 mgIndications:Chronic hypoxemic respiratory failure (HCC),COPD, group C, by GOLD 2017 classification ([facility]),[place] miners' lung ([facility]) 2.5 mg NEBULIZER PRN 04/24/2023 04/23/2024 Active Albuterol Sulfate (Proventil) (2.5 MG/3ML) 0.083% inhalation solution 2.5 mgIndications:Chronic hypoxemic respiratory failure (HCC),COPD, group C, by GOLD 2017 classification ([facility]),[place]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) 2.5 mg NEBULIZER PRN 04/24/2023 04/23/2024 Active documented as of this encounter (statuses as of 07/15/2023) Active Problems Problem Noted Date Diagnosed Date COPD, group D, by GOLD 2017 classification 04/29 Overview: Per COPD GOLD Classification [place] 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 per patient "kidney cancer". States he was advised he was not a surgical candidate. Carotid stenosis, right 07/11/2017 History of stroke 07/11/2017 Overview: TIA vs lacunar stroke diagnosed on head CT in [place] Apr 2017. Follow up MRI [facility] no infarct. Anxiety 07/11/2017 HTN, goal [...] 07/15/2023 12:34 PM EDT ----- Pls ask Jeannette Treece for Dr Shankar's last OV note >> secnod requiqest (did nto receive in last 63 pg packet) documented in this encounter Plan of Treatment Upcoming Encounters Date Type Department Care Team (Late st Contact Info) Description 07/23/2023 1:40 PM EDT Office Visit Family Medicine [address] [place] [address] Jody Arora MD [address] [place] [address] [place] [address] 02/10/2024 1:00 PM EST Imaging Radiology [facility] [address] [facility] [place] [address] [facility] [place] [address] 02/25/2024 4:00 PM EST Office Visit Urology, [facility] [address] [facility] [place] [address] Cameron Romeo MD 27 [facility] [address] [place] [address] 04/09/2024 2:20 PM EST Office Visit Nephrology [address] [place] [address] Rosy Patel MD [address] [place] [address] Health Maintenance Due Date Last Done Comments [...] of this encounter Care Teams Manager Of Construction Relationship Specialty Start Date End Date Jody Arora MD [address] [place] [address] [place] [phone] PCP - General Family Medicine 11/21/21 documented as of this encounter
--- OUTSIDE RECORDS SUMMARY | 2023-08-27 01:25 | External Medical Summary | Summary of Care ---
Author Name Unknown Organization [facility] Address [address] [place] [address] Phone [phone] Care Team Providers Care Neurology Technician Name Role Phone London Perales MD Primary Care Provide r Reason for Visit * Reason Comments Chronic Kidney Disease (CKD) Encounter Details Date Type Department Care Team (Late st Contact Info) Description 07/15/2023 12:20 PM EDT Office Visit Nephrology [address] [place] [id number] Rosy Patel MD [address] [place], [place] [address] [address] ESRD (end stage renal disease) (HCC)*; Left renal mass; Papillary renal cell carcinoma (HCC); Persistent proteinuria, unspecified; HTN, goal below 130/80; Anemia due to stage 5 chronic kidney disease, not on chronic dialysis (HCC); Hypoxia Allergies No known active allergiesdocumented as of this encounter (statuses as of 07/17/2023) Medications Medication Sig Dispensed Refills Start Date End Date Status nitroglycerin (NITROSTAT) 0.4 MG SUBL 1 Tablet. 0 08/19/2018 Active Ventolin HFA 108 (90 Base) MCG/ACT Inhalation Aerosol SolutionIndications: COPD exacerbation ([facility]) Inhale by mouth 2 Puffs [...] Respimat 2.5 MCG/ACT Inhalation Aerosol Solution (Tiotropium [place] Monohydrate) Inhale 2 Puffs by mouth in the morning. 4 g 2 04/24/2023 Active hydrOXYzine HCl 50 MG Oral TabletIndications:Pr imary insomnia TAKE 1 TABLET BY MOUTH AT BEDTIME NEEDED FOR INSOMNIA 30 Tablet 3 05/13/2023 Active Additional Information Patient not taking.Reported on 06/20/2023 Fluticasone-Salmeter ol 250-50 MCG/ACT Inhalation Aerosol Powder Breath Activated (Advair Diskus)Indications:C OPD, group C, by GOLD 2017 classification ([facility]) INHALE 1 DOSE BY MOUTH IN THE MORNING AND 1 AT BEDTIME 60 Each 0 05/28/2023 Active Ventolin HFA 108 (90 Base) MCG/ACT Inhalation Aerosol SolutionIndications: COPD, group D, by GOLD 2017 classification ([facility]) Inhale 2 Puffs by mouth every 4 hours as needed for Wheezing. 18 g 2 05/28/2023 Active Albuterol Sulfate (2.5 MG/3ML) 0.083% Inhalation Nebulization Solution (Proventil)Indicatio ns:COPD, group D, by GOLD 2017 classification ([facility]) Inhale 1 Vial via nebulizer [...] MG Oral Tablet (Demadex)Indications :ESRD needing dialysis ([facility]) Take 4 Tablets by mouth 2 times a day in the morning and at noon. 120 Tablet 5 07/05/2023 Active Hospital, Clinic, or Other Facility Administered Medication Ordered Dose Route Frequency Start Date End Date Status Albuterol Sulfate (Proventil) (5 MG/ML) 0.5% *conc* inhalation solution 2.5 mgIndications:Chronic hypoxemic respiratory failure (HCC),COPD, group C, by GOLD 2017 classification ([facility]),Mora miners' lung ([facility]) 2.5 mg NEBULIZER PRN 04/24/2023 04/23/2024 Active Albuterol Sulfate (Proventil) (2.5 MG/3ML) 0.083% inhalation solution 2.5 mgIndications:Chronic hypoxemic respiratory failure (HCC),COPD, group C, by GOLD 2017 classification (HCC),Mora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) 2.5 mg NEBULIZER PRN 04/24/2023 04/23/2024 Active documented as of this encounter (statuses as of 07/17/2023) Active Problems Problem Noted Date Diagnosed Date COPD, group D, by GOLD 2017 classification 04/29 Overview: Per COPD GOLD Classification 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 States he was advised he was not a surgical candidate. Carotid stenosis, right 07/11/2017 History of stroke 07/11/2017 Overview: TIA vs lacunar stroke diagnosed on head CT in [place] Apr 2017. Follow up MRI [facility] no infarct. Anxiety 07/11/2017 HTN, goal below 140/90 08/02/2015 Coronary artery disease Dyslipidemia, goal LDL below 100 documented as of this encounter (statuses as of 07/17/2023) Resolved Problems Problem Noted Date Diagnosed Date [...] as of this encounter (statuses as of 07/17/2023) Immunizations Name Administration Dates Next Due COVID-19 [...] Smoking Tobacco: Former Cigars Smokeless Tobacco: Never Tobacco Cessation:Counseling Given: Not [...] Sign Reading Time Taken Comments Blood Pressure 135/56 07/15/2023 12:16 PM EDT Pulse 76 07/15/2023 12:16 PM EDT Temperature 36.2 C (97.1 F) 07/15/2023 12:16 PM E DT Respiratory Rate 20 07/15/2023 12:16 PM EDT Oxygen Saturation 80% 07/15/2023 12:16 PM EDT Inhaled Oxygen Concentration - - Weight 89.8 kg (198 lb) 07/15/2023 12:16 PM EDT Height - - Body Mass Index 33.99 05/29/2023 1:38 PM EDT documented in this encounter Patient Instructions * Patient Instructions* Rosy Patel MD - 07/15/2023 12:56 PM EDT -be sure to wear your oxygen EVEN when you walk in to buildings for appointments -will be back in touch about either starting 2 days or 3 days weekly at [place] dialysis -avoid medicines like aleve, advil, ibuprofen, aspirin more than 81 mg daily and other NSAIDS whichare not good for kidney patients. Take only tylenol (acetaminophen) up to 2000 mg daily as needed for pain or as directed by your primary care provider. -no medication changes today -will reach out to Dr Villavicencio about your blastomycosis history -will refer you to oncology in [facility] -recommend you do establish with palliative documented in this encounter Progress Notes * Rosy Patel MD - 07/15/2023 12:11 PM EDT NEPHROLOGY CLINIC NOTE Nephrology [address] [place] [address] 07/15/2023, 12:11 PM Patient Name: Justin Pinedo BACKGROUND: 83 year old malepresents for close in f/u of CKD 5 and 1.5 >> 0.5 grams of proteinuria from tobacco abuse, htn and advanced age; high ESRD risk. PMH includes severe lung dz, stroke w/ residual R leg weakness and R arm pain, renal cell carcinoma, CAD, monoclonal gammopathy follows w/ [facility]. History of late acute/subacute lacunar infarct of the right posterior temporal/occipital white matter -- picked up during 04/2017 HTN urgency admission. Hx HTN since 1998. Sees [facility] urologist in [place] annually >> for 2.6 cm left renal cell CA but not a surgical candidate; also prostatic hypertropy. 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 Hx of dvt and pe in the of unclear etiology. Hx of skin cancer. Hx of hyperkalemia, improved with avoiding high k foods. Covid Feb 2021; got mAb; no residual issues. Follows w/ Dr Olmstead [facility] cardiology. Pt withCAD > MS in 1998 and one stent in 1998 at [facility]. Hx of smoking cigarettes/cigars until the . has marked RLS. Fell down steps 2021 but "saved the turkey." Falls often. Had extensive course of antifungals fall 2017 for mycotic pulmonary infection>>Admission summer 2017 [place] [facility] RML, higher K -- in fall 2017, diagnosed with pulmonary fungal infection and started on itraconazole. Follows w/ [facility] pulm, last seen 02/2019. also follows with local yard brakeman Dr Jain. Since health events 2018 (stroke, PNA, pulmonary fungal infection), much poorer functional status>> prior to summer 2017 illness could do 9 holes golf w/o issue, could haddad/fish - limited by energy; not limited by breathing. 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 Huffs and puffs to walk 50 yards on flat and tired but could still talk; but breathing better than it had been earlier fall when he would have had to sit and rest to walk same distance same surface. May 2020 walks 50 feet before needing to sit/rest. 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 Continues to work with mental health and addiction counseling on week days. Admitted to [facility] May 14 to May 17 2023 with acute on chronic hypoxic respiratory failure and hemoptysis attributed to multifocal pneumonia. He was discharged on continuous O2 4 L. Nephrology followed the patient during his admission and no dialysis was indicated. He did have worsening of his CKD >> w/ presenting and peak creatinine 4.5, discharge creatinine 4.3 (eGFR 13)and d/c hgb 8.7. He was discharged on a prednisone taper. No changes were made to his sodium bicarbonate or Lasix dosing. CT chest at admission was remarkable for bilateral lower lobe airspace opacities which represented infectious/inflammatory processes versus underlying masses which could not be excluded and for whichfollow-up imaging was recommended. He saw [facility] pulmonary in follow-up on June 13; noted at that visit to be noncompliant with inhalers and oxygen. He was instructed to use oxygen at all times. Plan is or late a follow-up with the repeat CT at time Hemoptysis resumed a few days after he got back from hospital. Acc by his to most visits. Local daughters involved as well. TODAY 07/15/2023: presents for close in follow-up of worsening renal failure nearing the need for dialysis. Used w/c to come into clinic today (first time). Also comes in w/ no 02 > states in car; and sats 80% RA, tells RN often seens high 70s at home. Sats to 90s on 4L NC. No acute interval events. At our last office visit earlier this month, he had left with a plan to start outpatient dialysis after that visit; however his labs were improved and his chest x-ray was clear and so we deferred that start. Feels his breathing is slowly worsening even compared to earlier in the month. Trying to slow everything down so he can breathe better; can't sing in latter day anymore. Wearing o2 most of the day he states. He's wearing 02 when he eats now per and doing a lot better. Also using nebulizers. Hemoptysis still occasionally every few days to a week; Saw Dr Villavicencio last week >> chronic pneumonitis RLL, RML for which abtx not indicated; thereis a volume overload component noted w/ diffuse interstitial thickening; also chronic aspiration pneumonitis component >> for this last issue referral placed to speech. Also referred to [facility] palliative to discuss goals of care; declines hospice. Referred also for sleep study. Next Dr. Villavicencio appointment after sleep/pallitaive. I extensively reveiwed 60+ pp notes from pulm clinic in [place] 2019 including bronch results >> no mention of fungal infection/itraconazole in these notes though mycosis on problem list. Pt w/ chronic RML collapse/ RML syndrome; 04/2019 bronch grew Strep gordoni; no mention of fungus. 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 Pt has not seen urology for several years. Pilonidal cyst still an intermittent issue. along today. They voice concerns about local specialty care in [place] and are seeking other provider care. I receive records of dr Shankar's last visit after pt left clinic stating he was d/c from clinic this spring for noncompliance. Per Dr Shankar's 12/24/22 note pt was to see [facility] urology re new 2.2 cm L upper kidney structure. Saw Dr Romeo [facility] urology who recommended f/u in 1 year given pulmonary issues and imaging ff after review of 2022 MRI. REVIEW OF SYSTEMS General: No fatigue, weight gain since last visit and eating a lot > can't sleep til 3-4 AM; about the same since start of year Head: No significant headache Respiratory: hypoxia as above; cough/hemoptysis as above. Cough productive of thick brown bloody mucus, "thick like gristle." No wheezing, + again worsening shortness of breath; chronic orthopnea sleeps in recliner x one year or sometimes in rocking chair Cardiovascular: No chest pain, No palpitations, and No syncope Gastrointestinal: No nausea, vomiting, diarrhea No blood in stools No abdominal pain >> againnoting more abd girth again since last visit Urinary: No dysuira, No hematuria. No flank pain; chronic nocturia > q 1 hr Musculoskeletal: No muscle/joint pains , + chronic edema of LE dependent; no futher leg cramps; L leg weak Skin: No itching No orthostatic or presyncopal sx; no LOC; falls often most recently in bathroom the other day Current Outpatient Medications Medication Sig Dispense Refill nitroglycerin (NITROSTAT) 0.4 MG SUBL 1 Tablet. Carvedilol 3.125 MG Oral Tablet (Coreg) Take [...] Respimat 2.5 MCG/ACT Inhalation Aerosol Solution (Tiotropium [place] Monohydrate) Inhale 2 Puffs by mouth in the morning. 4 g 2 Fluticasone-Salmeterol 250-50 MCG/ACT Inhalation Aerosol Powder Breath Activated (Advair Diskus) INHALE 1 DOSE BY MOUTH IN THE MORNING AND 1 AT BEDTIME 60 Each 0 Albuterol Sulfate (2.5 MG/3ML) 0.083% Inhalation Nebulization [...] morning and at noon. 120 Tablet 5 Ventolin HFA 108 (90 Base) MCG/ACT Inhalation [...] skin twice a day. 71 g 2 hydrOXYzine HCl 50 MG Oral Tablet TAKE 1 TABLET BY MOUTH AT BEDTIME NEEDED FOR INSOMNIA (Patientnot taking: Reported on 06/20/2023) 30 Tablet 3 Ventolin HFA 108 (90 Base) MCG/ACT Inhalation Aerosol Solution Inhale 2 Puffs by mouth every 4 hours as needed for Wheezing. 18 g 2 predniSONE 5 MG Oral Tablet (Deltasone) Take 4 tab Daily for 5 Days Then 3 Tab daily for 5 days Then 2 tab daily for 5 days Then 1 tabe daily for 5 days and STOP (Patient not taking: Reported on 06/20/2023) 50 Tablet 0 Current Facility-Administered Medications Medication Dose Route Frequency Provider Last Rate Last Admin Albuterol Sulfate (Proventil) (5 MG/ML) 0.5% *conc* inhalation solution 2.5 mg 2.5 mg Nebulizer Gilbert Alexander MD Albuterol Sulfate (Proventil) (2.5 MG/3ML) 0.083% inhalation solution 2.5 mg 2.5 mg Nebulizer Gilbert Trinidad MD Review of patient's allergies indicates: No Known Allergies PHYSICAL EXAMINATION: BP Readings from Last 6 Encounters: 07/15/23 135/56 06/20/23 169/80 05/29/23 136/60 05/14/23 116/54 04/24/23 140/64 04/11/23 121/47 Wt Readings from Last 6 Encounters: 07/15/23 89.8 kg (198 lb) 06/20/23 92.1 kg (203 lb) 05/29/23 89.8 kg (198 lb) 05/14/23 88.3 kg (194 lb 9.6 oz) 04/24/23 88.9 kg (196 lb) 04/11/23 86.2 kg (190 lb) Pulse Readings from Last 6 Encounters: 07/15/23 76 06/20/23 83 05/29/23 86 05/14/23 86 04/24/23 90 04/11/23 74 NAD, oriented x 3, acomes in w/c but leaves it out side exam room; sats up to 90s on 4L Normocephalic, atraumatic, eomi nonicteric sclerae MMM Supple neck RRR w/o m/g/r Diminished BL bases w/ crackles and pops/wheezes NT abd, +BS, soft No cyanosis or clubbing; trace BLE edema less than previous; AVF + t/b No rash No tremor, + focal weakness; fluent speech, good historian Tearfeul w/ some of converastaion LABS: Recent Labs Units 07/10/23 1350 07/04/23 1123 06/20/23 1406 04/04/23 1117 SODIUM - [facility] mmol/L 143 143 144 141 POTASSIUM - [facility] mmol/L 3.9 4.8 5.4* 5.3* CHLORIDE - [facility] mmol/L 97* 103 106 105 CO2 - [facility] mmol/L BUN - [facility] mg/dL 77* 72* 69* 69* CREATININE - [facility] mg/dL 4.3* 3.8* 3.1* 3.6* ESTIMATED GLOMERULAR FILTRATION RATE - [facility] mL/min 13* 15* 19* 16* Recent Labs Units 06/20/23 1406 02/25/23 0000 12/24/22 0000 11/30/22 1543 HGB g/dL 9.4* 9.0* 9.0* 9.3* TRANSFERRIN SATURATION PERCENT - [facility] % -- -- -- 25 Recent Labs Units 07/10/23 1350 07/04/23 1123 06/20/23 1406 04/04/23 1117 03/19/23 0000 03/04/23 1618 12/20/22 1227 11/30/22 1543 08/08/22 1236 07/12/22 1350 12/07/21 1115 07/19/21 1601 CALCIUM - [facility] mg/dL 8.2* 8.3* 8.6 8.5 -- 8.7 < > 8.2* < > 8.3* < > 8.7 PHOSPHORUS - [facility] mg/dL 6.2* -- -- 4.8 -- 5.2* -- 5.5* -- 4.8 < > 4.7 PHOSPHORUS-OUTSIDE LAB MG/DL -- -- -- -- 5.7* -- -- -- -- -- -- -- 25-HYDROXY VITAMIN D - [facility] ng/mL 28 -- -- -- -- -- -- 25 -- 23 -- -- PTH - [facility] pg/mL 238* -- -- -- -- -- -- 155* -- 206* -- 76* < > = values in this interval not displayed. Recent Labs Units 12/07/21 1115 HEMOGLOBIN A1C - [facility] % 6.3* Recent Labs Units 07/10/23 1350 08/08/22 1243 12/07/21 1115 07/19/21 1601 ALBUMIN / CREATININE RATIO, URINE - [facility] mg/g Creat 362* 840* 1,232* 1,762* Recent Labs Units 08/08/22 [...] 0-2 0-2 -- 0-2 ASSESSMENT AND PLAN: ESRD (end stage renal disease) (HCC) (Primary) Left renal mass Papillary renal cell carcinoma (HCC) Persistent proteinuria, unspecified HTN, goal below 130/80 Anemia due to stage 5 chronic kidney disease, not on chronic dialysis (HCC) Hypoxia Follow Up: Return in about 2 months (around 09/14/2023) for clinic visit w/ . | For: clinic visit w/ | Check-out note: Waitlist MD only Hypoxia improved w/ 02 therapy > reminded pt of importance of wearing 02 at all times. Did reachout to Dr Villavicencio on TText re blastomycosis hx; not likely to change course here but for completeness. L renal mass no longer followed by [facility] oncology > will refer to Robin Barajas for f/u on this and on anemia; per Dr Shaknar's last note ASHLI contraindicated d/t known/nonresected renal CA/ active renal mass; will also have him continue w/ urology Dr Romeo > has Dec appt. Proteinuria stable -acei /arb, sglt2i contraindicated; cont calcium channel harish dose ok HTN above target but again will not lower given other sx -cont torsemide, nifedipine, coreg current doses ESRD is progressive. We had an extended discussion about goals of care today, about my concerns andhis of QoL as an incenter hemodialysis patient and how recent scans/pulm eval show component of dyspnea may well be vol OL despite aggressive torsemide. -recommend he does c/w palliative -will plan trial if feasible of 2 days weekly HD (may have to start w/ 3 days/ need to investigate)w/ understanding that after a month he either withdraws or goes to 3 days weekly ; alternative is simply to start w/ 3 days weekly but again he is quite frail and worry he won't tolerate this w/ driving to [facility]. -he again voices preference to stay in my care, even though there is an ICHD clinic in [place] he wishes to come to [place] to remain in my care as I don't round on ICHD in [place] -scheduling close in f/u again in case dialysis plan is again deferred Patient Instructions -be sure to wear your oxygen EVEN when you walk in to buildings for appointments -will be back in touch about either starting 2 days or 3 days weekly at [place] dialysis -avoid medicines like aleve, advil, ibuprofen, aspirin more than 81 mg daily and other NSAIDS whichare not good for kidney patients. Take only tylenol (acetaminophen) up to 2000 mg daily as needed for pain or as directed by your primary care provider. -no medication changes today -will reach out to Dr Villavicencio about your blastomycosis history -will refer you to oncology in [facility] -recommend you do establish with palliative I spent a total of Greater than 55 mins (exact time 65 mins) on the date of service in preparation,delivery, and documentation of the care provided to Justin Pinedo excluding any time spent in the performance of separately billed services. Rosy Patel MD Nephrology [address] [place] [address] CC: Ref: SELF[[id number]] NO STREET ADDRESS AVAILABLE None (office) None (fax) PCP: LONDON PERALES [address] [place] [address] [place] [address] [phone] This chart was completed in part utilizing [employer] Speech Voice Recognition Software. Randomword insertions, pronoun errors, and incomplete sentences are an occasional consequence of this system due to software limitations, and ambient noise. Any questions or concerns about the content, text, or information contained within the body of this dictation should be directly addressed to the provider for clarification. documented in this encounter Nursing Notes * Gabby Sosa RN - 07/15/2023 12:17 PM EDT Follow up appointment today. Swelling is improved. Less winded on exertion though did use wheelchair. States his restin pulse ox reading is 76-80%. Does have oxygen in the car. All 3 daughters came to visit this past week. documented in this encounter Plan of Treatment Upcoming Encounters Date Type Department Care Team (Late st Contact Info) Description 07/23/2023 1:40 PM EDT Office Visit [address] Medicine [address] [phone] London Perales MD [address] [place] [address] [place] [address] 08/05/2023 10:40 AM EDT Office Visit Ophthal[facility], [facility] [address] [facility] [address] Sergio Jung, [address] [place] [address] 08/21/2023 1:00 PM EDT Office Visit Palliative Medicine [facility] [address] [place] [id number] Brielle Schmidt MD [address] [place] [address] [place] [address] 02/10/2024 1:00 PM EST Imaging Radiology [facility] [address] [facility] [address] [facility] [place] [address] 02/25/2024 4:00 PM EST Office Visit Urology, [facility] [address] [facility] [place] [place] [address] Cameron Romeo MD [address] [address] [place] [address] 04/09/2024 2:20 PM EST Office Visit Nephrology [address] [place] [address] Rosy Patel MD [address] [place] [address] Health Maintenance Due Date Last Done Comments [...] disease) (HCC)- Primary End stage renal disease Left renal mass Unspecified disorder of kidney and ureter Papillary renal cell carcinoma (HCC) Persistent proteinuria, unspecified HTN, goal below 130/80 Unspecified essential hypertension Anemia due to stage 5 chronic kidney disease, not on chronic dialysis (HCC) Hypoxia Hypoxemia documented in this encounter Care Teams Neurology Technician Relationship Specialty Start Date End Date London Perales MD [address] [place] [address] [place] [address] PCP - General Family Medicine 11/21/21 documented as of this encounter
--- OUTSIDE RECORDS SUMMARY | 2023-08-27 01:25 | External Medical Summary | Summary of Care ---
Author Name Unknown Organization [facility] Address [address] [place] [address] Phone [phone] Care Team Providers Care Research Physicist Name Role Phone Jody Arora MD Primary Care Provide r Reason for Visit * Reason Comments Follow Up Encounter Details Date Type Department Care Team (Late st Contact Info) Description 07/15/2023 11:30 AM EDT Office Visit Ophthalmology, [facility] 132 [facility] [place] [address] Sergio Jung, DO [address] [place] [address] Senile ectropion of both lower [...] Respimat 2.5 MCG/ACT Inhalation Aerosol Solution (Tiotropium [place] Monohydrate) Inhale 2 Puffs by mouth in [...] C, by GOLD 2017 classification ([facility]) INHALE 1 DOSE BY MOUTH IN THE MORNING AND 1 AT BEDTIME 60 Each 0 05/28/2023 Active Ventolin HFA 108 (90 Base) MCG/ACT Inhalation Aerosol SolutionIndications: COPD, group D, by GOLD 2017 classification ([facility]) Inhale 2 Puffs by mouth every 4 hours as needed for Wheezing. 18 g 2 05/28/2023 Active Albuterol Sulfate (2.5 MG/3ML) 0.083% Inhalation Nebulization Solution (Proventil)Indicatio ns:COPD, group D, by GOLD 2017 classification ([facility]) Inhale 1 Vial via nebulizer every 4 [...] MG Oral Tablet (Demadex)Indications :ESRD needing dialysis ([facility]) Take 4 Tablets by mouth 2 times a day in the morning and at noon. 120 Tablet 5 07/05/2023 Active Hospital, Clinic, or Other Facility Administered Medication Ordered Dose Route Frequency Start Date End Date Status Albuterol Sulfate (Proventil) (5 MG/ML) 0.5% *conc* inhalation solution 2.5 mgIndications:Chronic hypoxemic respiratory failure (HCC),COPD, group C, by GOLD 2017 classification ([facility]),[place] miners' lung ([facility]) 2.5 mg NEBULIZER PRN 04/24/2023 04/23/2024 Active Albuterol Sulfate (Proventil) (2.5 MG/3ML) 0.083% inhalation solution 2.5 mgIndications:Chronic hypoxemic respiratory failure (HCC),COPD, group C, by GOLD 2017 classification ([facility]),[place] miners' lung ([facility]) 2.5 mg NEBULIZER PRN 04/24/2023 04/23/2024 Active Tobramycin-dexAMETHason e (Tobradex) ophthalmic suspension 1 DropIndications:Senile ectropion of both lower eyelids,Tearing eyes 1 Drop OU ONCE 07/15/2023 07/15/2023 Ende d documented as of this encounter (statuses as of 07/15/2023) Active Problems Problem Noted Date Diagnosed Date COPD, group D, by GOLD 2017 classification 04/29 Overview: Per COPD GOLD Classification [place]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 States he was advised he was not a surgical candidate. Carotid stenosis, right 07/11/2017 History of stroke 07/11/2017 Overview: TIA vs lacunar stroke diagnosed on head CT in [place] Apr 2017. Follow up MRI [facility] no infarct. Anxiety 07/11/2017 HTN, goal [...] Office Procedure Note: Name: Justin Pinedo MRD: [id number] DATE: 07/15/2023 PREOP DX: EPIPHORA both eyes [...] 07/15/2023 12:20 PM EDT Office Visit Nephrology [address] [place] [address] Rosy Patel MD [address] [place] [address] 07/23/2023 1:40 PM EDT Office Visit Family Medicine [address] [place] [address] Jody Arora MD [address] [place] [address] [place] [address] 02/10/2024 1:00 PM EST Imaging Radiology [facility] 1st [facility] 132 [facility] [place] [address] 02/25/2024 4:00 PM EST Office Visit Urology, [facility] [address] [facility] [place] [address] Cameron Romeo MD 27 [facility] [address] [place] [address] 04/09/2024 2:20 PM EST Office Visit Nephrology [address] [place] [address] Rosy Patel MD [address] [place] [address] Health Maintenance Due Date Last Done Comments [...] as to cause documented in this encounter Administered Medications Inactive Administered Medications - up to 3 most recent administrations Medication Order MAR Action Action Date Dose Rate Site Tobramycin-dexAMETHasone (Tobradex) ophthalmic suspension 1 Drop 1 Drop, Both eyes, ONCE, On Sat07/15/23 at 1230, For 1 dose Given 07/15/2023 12:01 PM EDT 1 Drop Other-Specify documented in this encounter Care Teams Research Physicist Relationship Specialty Start Date End Date Jody Arora MD [address] [place] [address] [place] [address] PCP - General Family Medicine 11/21/21 documented as of this encounter
--- OUTSIDE RECORDS SUMMARY | 2023-08-27 01:26 | External Medical Summary | Summary of Care ---
Author Name Unknown Organization [facility] Address [address] [place] [address] Phone [phone] Care Team Providers Care Supervisor Carding Name Role Phone Jody Arora MD Primary Care Provide r Reason for Visit * Reason Comments Outpatient Testing Encounter Details Date Type Department Care Team (Late st Contact Info) Description 07/10/2023 1:50 PM EDT Laboratory Laboratory [address] [place] [phone] [place] [address] Kidney disease, chronic, stage IV (GFR 15-29 ml/min) ([facility]); Vitamin D deficiency Allergies No known active allergiesdocumented as of this encounter (statuses as of 07/10/2023) Medications Medication Sig Dispensed Refills Start Date [...] Respimat 2.5 MCG/ACT Inhalation Aerosol Solution (Tiotropium [place] Monohydrate) Inhale 2 Puffs by mouth in [...] by GOLD 2017 classification ([facility]) INHALE 1 DOSE BY MOUTH IN THE MORNING AND 1 AT BEDTIME 60 Each 0 05/28/2023 Active Ventolin HFA 108 (90 Base) MCG/ACT Inhalation Aerosol SolutionIndications: COPD, group D, by GOLD 2017 classification ([facility]) Inhale 2 Puffs by mouth every 4 hours as needed for Wheezing. 18 g 2 05/28/2023 Active Albuterol Sulfate (2.5 MG/3ML) 0.083% Inhalation Nebulization Solution (Proventil)Indicatio ns:COPD, group D, by GOLD 2017 classification ([facility]) Inhale 1 Vial via nebulizer every [...] Oral Tablet (Demadex)Indications :ESRD needing dialysis ([facility]) Take 4 Tablets by mouth 2 times a day in the morning and at noon. 120 Tablet 5 07/05/2023 Active Hospital, Clinic, or Other Facility Administered Medication Ordered Dose Route Frequency Start Date End Date Status Albuterol Sulfate (Proventil) (5 MG/ML) 0.5% *conc* inhalation solution 2.5 mgIndications:Chronic hypoxemic respiratory failure (HCC),COPD, group C, by GOLD 2017 classification ([facility]),[place] miners' lung (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 States he was advised he was not a surgical candidate. Carotid stenosis, right 07/11/2017 History of stroke 07/11/2017 Overview: TIA vs lacunar stroke diagnosed on head CT in [place] Apr 2017. Follow [facility] no infarct. Anxiety 07/11/2017 HTN, goal below 140/90 08/02/2015 Coronary artery disease Dyslipidemia, goal LDL below 100 documented as of this encounter (statuses as of 07/10/2023) Resolved Problems Problem Noted Date Diagnosed Date [...] as of this encounter (statuses as of 07/10/2023) Immunizations Name Administration Dates Next Due COVID-19 [...] 07/15/2023 11:30 AM EDT Office Visit Ophthalmology, [facility] 132 [facility] [place] [address] Sergio Jung T, DO [facility] [address] 07/15/2023 12:20 PM EDT Office Visit Nephrology [address] [place] [address] Rosy Patel MD 200 [facility] [place] [address] 07/23/2023 1:40 PM EDT Office Visit Family Medicine [address] [place] [address] Jody Arora MD [address] [place] [address] [place] [address] 02/10/2024 1:00 PM EST Imaging Radiology [facility] [address]st [facility] 132 [place] [address] 02/25/2024 4:00 PM EST Office Visit Urology, [facility] 132 [facility] [place] [address] Cameron Romeo MD 27 [facility] [place] [address] [place] [address] 04/09/2024 2:20 PM EST Office Visit Nephrology [address] [place] [address] Rosy Patel MD 200 [facility] [address] Pending Results Name Type Priority Associated Diagnoses Date /Time 25-HYDROXY VITAMIN D Lab STAT Kidney disease, chronic, stage IV (GFR 15-29 ml/min) ([facility]) Vitamin D deficiency 07/10/2023 1:50 PM EDT ALBUMIN / CREATININE RATIO, URINE Lab STAT Kidney disease, chronic, stage IV (GFR 15-29 ml/min) ([facility]) 07/10/2023 1:50 PM EDT PTH Lab STAT Kidney disease, chronic, stage IV (GFR 15-29 ml/min) ([facility]) 07/10/2023 1:50 PM EDT RENAL FUNCTION PANEL Lab STAT Kidney disease, chronic, stage IV (GFR 15-29 ml/min) ([facility]) 07/10/2023 1:50 PM EDT Health Maintenance Due Date Last Done Comments Alpha-1 Antitrypsin 1958 *COPD SEVERITY VERIFIED BY PFT 07/16/2020 Hepatitis B (3 of 3 - 19+ 3-dose series) 03/20/2023 01/23/2023, 01/08/2018 Albumin/Creatinine Ratio 08/09/2023 023, 12/07/2021, 08/10/2021, Additional history exists PTH 12/01/2023 11/30/2022, 06/17, 07/19/2021, Additional history exists GFR 01/03/2024 07/04/2023, 0 06/2023, 04/04/2023, Additional history exists Phosphate 04/04/2024 04/04/2023, 0 04/2023, 03/04/2023, Additional history exists Depression Screening 05/19/2024 05/20/2023 Hgb 06/19/2024 06/20/2023, 02/15, 12/24/2022, Additional history exists Nephrology Referral 06/19/2024 06/20/2023 O2 ASSESSMENT COMPLETED IN PAST YEAR FOR COPD 06/19/2024 06/20/2023 DTaP,Tdap,and Td Vaccines (2 - Td or [...] deficiency documented in this encounter Care Teams Supervisor Carding Relationship Specialty Start Date End Date Jody Arora MD [address] [place] [address] [place] [address] PCP - General Family Medicine 11/21/21 documented as of this encounter
--- OUTSIDE RECORDS SUMMARY | 2023-08-27 01:26 | External Medical Summary | Summary of Care ---
Author Name Unknown Organization [facility] Address [address] [place] [address] Phone [phone] Care Team Providers Care Machine Cutter Name Role Phone Jody Arora MD Primary Care Provide r Reason for Visit * Reason Onset Date Comments Outpatient Testing 07/10/2023 Encounter Details Date Type Department Care Team (Late st Contact Info) Description 07/10/2023 Telephone NephrologyMitzi 200 [facility] [place] [address] PatelRosy fine MD 200 [place] [address] Outpatient Testing Allergies No known active allergiesdocumented [...] Respimat 2.5 MCG/ACT Inhalation Aerosol Solution (Tiotropium [place] Monohydrate) Inhale 2 Puffs by mouth in the morning. 4 g 2 04/24/2023 Active hydrOXYzine HCl 50 MG Oral TabletIndications:Pr imary insomnia TAKE 1 TABLET BY MOUTH AT BEDTIME NEEDED FOR INSOMNIA 30 Tablet 3 05/13/2023 Active Additional Information Patient not taking.Reported on 06/20/2023 Fluticasone-Salmeter ol 250-50 MCG/ACT Inhalation Aerosol Powder Breath Activated (Advair Diskus)Indications:C OPD, group C, by GOLD 2017 classification ([facility]) INHALE 1 DOSE BY MOUTH IN THE MORNING AND 1 AT BEDTIME 60 Each 0 05/28/2023 Active Ventolin HFA 108 (90 Base) MCG/ACT Inhalation Aerosol SolutionIndications: COPD, group D, by GOLD 2017 classification ([facility]) Inhale 2 Puffs by mouth every 4 hours as needed for Wheezing. 18 g 2 05/28/2023 Active Albuterol Sulfate (2.5 MG/3ML) 0.083% Inhalation Nebulization Solution (Proventil)Indicatio ns:COPD, group D, by GOLD 2017 classification ([facility] [...] MG Oral Tablet (Demadex)Indications :ESRD needing dialysis ([facility]) Take 4 Tablets by mouth 2 times a day in the morning and at noon. 120 Tablet 5 07/05/2023 Active Hospital, Clinic, or Other Facility Administered Medication Ordered Dose Route Frequency Start Date End Date Status Albuterol Sulfate (Proventil) (5 MG/ML) 0.5% *conc* inhalation solution 2.5 mgIndications:Chronic hypoxemic respiratory failure (HCC),COPD, group C, by GOLD 2017 classification ([facility]),[place] miners' lung ([facility]) 2.5 mg NEBULIZER PRN 04/24/2023 04/23/2024 Active Albuterol Sulfate (Proventil) (2.5 MG/3ML) 0.083% inhalation solution 2.5 mgIndications:Chronic hypoxemic respiratory failure (HCC),COPD, group C, by GOLD 2017 classification ([facility]),[place]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) 2.5 mg NEBULIZER PRN 04/24/2023 04/23/2024 Active documented as of this encounter (statuses as of 07/10/2023) Active Problems Problem Noted Date Diagnosed Date COPD, group D, by GOLD 2017 classification 04/29 Overview: Per COPD GOLD Classification [place] 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 States he was advised he was not a surgical candidate. Carotid stenosis, right 07/11/2017 History of stroke 07/11/2017 Overview: TIA vs lacunar stroke diagnosed on head CT in [place] Apr 2017. Follow up MRI [facility] no infarct. Anxiety 07/11/2017 HTN, goal [...] Telephone Encounter - Gabby Sosa RN - 07/10/2023 10:33 AM EDT Ckd labs ordered per protocol. TE with pt. States edema is slightly improved. Having labs done today. documented in this encounter Plan of Treatment Upcoming Encounters Date Type Department Care Team (Late st Contact Info) Description 07/15/2023 11:30 AM EDT Office Visit Ophthalmology, [facility] 132 [facility] [place] [address] Sergio Jung, DO [address] [place] [address] [place] [address] 07/15/2023 12:20 PM EDT Office Visit Nephrology [place] [address] [place] [id number] Rosy Patel MD [address] [place], [place] [address] 07/23/2023 1:40 PM EDT Office Visit Family Medicine [address] [place] [address] Jody Arora MD [address] [place] [address] [place] [address] 02/10/2024 1:00 PM EST Imaging [facility] [address] 02/25/2024 4:00 PM EST Office Visit Urology, [facility] 132 [facility] [place] [address] Cameron Romeo MD [address] [place] [address] [place] [address] 04/09/2024 2:20 PM EST Office Visit Nephrology [address] [place] [address] Rosy Patel MD [address] [place] [address] Scheduled Orders Name Type Priority Associated Diagnoses Orde r Schedule 25-HYDROXY VITAMIN D Lab STAT Kidney disease, chronic, stage IV (GFR 15-29 ml/min) ([facility]) Vitamin D deficiency Expected: 07/10/2023, Expires: 07/09/2024 ALBUMIN / CREATININE RATIO, URINE Lab STAT Kidney disease, chronic, stage IV (GFR 15-29 ml/min) ([facility]) Expected: 07/10/2023, Expires: 07/09/2024 PTH Lab STAT Kidney disease, chronic, stage IV (GFR 15-29 ml/min) ([facility]) Expected: 07/10/2023, Expires: 07/09/2024 RENAL FUNCTION PANEL Lab STAT Kidney disease, chronic, stage IV (GFR 15-29 ml/min) ([facility]) Expected: 07/10/2023, Expires: 07/09/2024 Health Maintenance Due Date Last Done Comments Alpha-1 Antitrypsin 1958 *COPD SEVERITY VERIFIED BY PFT 07/16/2020 Hepatitis B (3 of 3 - 19+ 3-dose series) 03/20/2023 01/23/2023, 01/08/2018 Albumin/Creatinine Ratio 08/09/2023 023, 12/07/2021, 08/10/2021, Additional history exists PTH 12/01/2023 11/30/2022, 06/17, 07/19/2021, Additional history exists GFR 01/03/2024 07/04/2023, 06/2023, 04/04/2023, Additional history exists Phosphate 04/04/2024 04/04/2023, 04/2023, 03/04/2023, Additional history exists Depression Screening [...] Primary Chronic kidney disease, Stage IV (severe) Vitamin D deficiency Unspecified vitamin D deficiency documented in this encounter Care Teams Machine Cutter Relationship Specialty Start Date End Date Jody Arora MD [address] [place] [address] [place] [address] PCP - General Family Medicine 11/21/21 documented as of this encounter
--- OUTSIDE RECORDS SUMMARY | 2023-08-27 01:26 | External Medical Summary | Summary of Care ---
Author Name Unknown Organization [facility] Address [address] [place] [address] Phone [phone] Care Team Providers Care Manager Respiratory Name Role Phone Jody Arora MD Primary Care Provide r Reason for Referral * Evaluate & Treat - Unlimited Visits (Within 30 days (routine)) - Authorized Specialty Diagnoses / Procedures Referred By Contac t Referred To Contact Hospice and Palliative Medicine / Palliative Medicine Diagnoses Chronic respiratory failure with hypoxia (HCC) Rogelio Villavicencio MD [address] [place] [address] Referral ID Status Reason Start Date Expiration Date Visits Requested Visits Authorized [id number] Authorized Specialty Services Required 07/10/2023 999 999 Question Answer Referral Priority Within 30 days (routine) Where should this appointment be scheduled? [facility] Reason for Referral: Other - Specify in Comments - Chronic Respitory Failure with Hypoxia Palliative Medicine To Address: Pain & Symptom Management Referral Location Office Comments J96.11 Chronic Respitory Failure with Hypoxia Referral w Office note scanned in. Encounter Details Date Type Department Care Team (Late st Contact Info) Description 07/10/2023 Orders Only Palliative Medicine [facility] [address] [place] [address] Rogelio Villavicencio MD [address] [place] [address] Chronic respiratory failure with hypoxia (HCC)* Allergies No known active allergiesdocumented as of this encounter (statuses as of 07/10/2023) Medications Medication Sig Dispensed Refills Start Date End Date Status nitroglycerin (NITROSTAT) 0.4 MG SUBL 1 Tablet. 0 08/19/2018 Active Ventolin HFA 108 (90 Base) MCG/ACT Inhalation Aerosol SolutionIndications: COPD exacerbation ([facility]) Inhale by mouth 2 Puffs every 4 [...] Respimat 2.5 MCG/ACT Inhalation Aerosol Solution (Tiotropium [place] Monohydrate) Inhale 2 Puffs by mouth in [...] C, by GOLD 2017 classification ([facility]),[place]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) 2.5 mg NEBULIZER PRN 04/24/2023 04/23/2024 Active Albuterol Sulfate (Proventil) (2.5 MG/3ML) 0.083% inhalation solution 2.5 mgIndications:Chronic hypoxemic respiratory failure (HCC),COPD, group C, by GOLD 2017 classification ([facility]),[place] miners' lung ([facility]) 2.5 mg NEBULIZER PRN 04/24/2023 04/23/2024 Active documented as of this encounter (statuses as of 07/10/2023) Active Problems Problem Noted Date Diagnosed Date COPD, group D, by GOLD 2017 classification 04/29 Overview: Per COPD GOLD Classification [place] 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 States he was advised he was not a surgical candidate. Carotid stenosis, right 07/11/2017 History of stroke 07/11/2017 Overview: TIA vs lacunar stroke diagnosed on head CT in [place] Apr 2017. Follow up MRI [facility] no infarct. Anxiety 07/11/2017 HTN, goal [...] Encounters Date Type Department Care Team (Alexey thomas Contact Info) Description 07/15/2023 11:30 AM EDT Office Visit Ophthalmology, [facility] 132 [facility] [place] [address] Sergio Jung, DO 16 [place] [address] 07/15/2023 12:20 PM EDT Office Visit Nephrology [address] [place] [address] Rosy Patel MD [address] [place] [address] 07/23/2023 1:40 PM EDT Office Visit Family Medicine [address] [place] [address] Jody Arora MD [address] [place] [address] [place] [address] 02/10/2024 1:00 PM EST Imaging Radiology [facility] 1st [facility] 132 [facility] [place] [address] 02/25/2024 4:00 PM EST Office Visit Urology, [facility] 132 [facility] [place] [address] Cameron Romeo MD [address] [address] [place] [address] 04/09/2024 2:20 PM EST Office Visit Nephrology [address] [place] [address] Rosy Patel MD [address] [place] [address] Scheduled Referrals Name Type Priority Associated Diagnoses Orde r Schedule PALLIATIVE CARE REFERRAL OP Referral Within 30 days (routine) Chronic respiratory failure with hypoxia (HCC) Ordered: 07/10/2023 Health Maintenance Due Date Last Done Comments Alpha-1 Antitrypsin 1958 *COPD SEVERITY VERIFIED BY PFT 07/16/2020 Hepatitis B (3 of 3 - 19+ 3-dose series) 03/20/2023 01/23/2023, 01/08/2018 Albumin/Creatinine Ratio 08/09/2023 023, 12/07/2021, 08/10/2021, Additional history exists PTH 12/01/2023 11/30/2022, 06/17, 07/19/2021, Additional history exists GFR 01/03/2024 07/04/2023, 040 06/2023, 04/04/2023, Additional history exists Phosphate 04/04/2024 [...] of this encounter Visit Diagnoses Diagnosis Chronic respiratory failure with hypoxia (HCC)- Primary Chronic respiratory failure documented in this encounter Care Teams Manager Respiratory Relationship Specialty Start Date End Date Jody Arora MD [address] [place] [address] [place] [id number] PCP - General Family Medicine 11/21/21 documented as of this encounter
--- OUTSIDE RECORDS SUMMARY | 2023-08-27 01:26 | External Medical Summary | Summary of Care ---
Author Name Unknown Organization [facility] Address [address] [place] [address] Phone [phone] Care Team Providers Care Sharemilker Name Role Phone Jody Arora MD Primary Care Provide r Reason for Visit * Reason Onset Date Comments Appointment 04/12/2023 Encounter Details Date Type Department Care Team (Late st Contact Info) Description 04/12/2023 Telephone Ophthalmology, [facility] [address] [place] [phone] Services, Scheduling [address] [place] [address] Appointment Allergies No known active allergiesdocumented as of this encounter (statuses as of 07/12/2023) Medications Medication Sig Dispensed Refills Start Date [...] as of this encounter (statuses as of 07/12/2023) Active Problems Problem Noted Date Diagnosed Date COPD, group D, by GOLD 2017 classification 04/29 Overview: Per COPD GOLD Classification [employer]' pneumoconiosis 04/24/2023 Papillary renal cell carcinoma [...] 07/11/2017 Overview: 2018 biopsy at [facility]/[place] per patient "kidney cancer". States he was advised he was not a surgical candidate. Carotid stenosis, right 07/11/2017 History of stroke 07/11/2017 Overview: TIA vs lacunar stroke diagnosed on head CT in [place] Apr 2017. Follow up MRI [facility] no infarct. Anxiety 07/11/2017 HTN, goal below 140/90 08/02/2015 Coronary artery disease Dyslipidemia, goal LDL below 100 documented as of this encounter (statuses as of 07/12/2023) Resolved Problems Problem Noted Date Diagnosed Date [...] as of this encounter (statuses as of 07/12/2023) Immunizations Name Administration Dates Next Due COVID-19 [...] Encounter - Debi Roberto OSA - 04/15/2023 8:20 AM EST This prior auth needs to be submitted to pts insurance before anything can be scheduled. I am working on Dr Jung's pts as his PAR left [facility] and has not been replaced yet. MOLLY Magaan 04/15/2023 8:21 AM * Telephone Encounter - Kristen Gill OSA - 04/12/2023 5:08 PM EST Patient calling to schedule a procedure with Dr. Jung Thank you, Kristen documented in this encounter Plan of Treatment Upcoming Encounters Date Type Department Care Team (Late st Contact Info) Description 07/15/2023 11:30 AM EDT Office Visit Ophthalmology, [address] [place] [address] Sergio Jung T, DO [address] [place] [id number] 07/15/2023 12:20 PM EDT Office Visit Nephrology [address] [place] [address] Rosy Patel MD [address] [facility] [place] [address] 07/23/2023 1:40 PM EDT Office Visit Family Medicine [address] [place] [phone] Jody Arora MD [address] [place] [address] [place] [id number] 02/10/2024 1:00 PM EST Imaging Radiology [facility] 1st [facility] [address] [facility] [place] [address] 02/25/2024 4:00 PM EST Office Visit Urology, [facility] [address] [facility] [place] [address] Cameron Romeo MD [address] [place] [address] [place] [address] 04/09/2024 2:20 PM EST Office Visit Nephrology [address] [place] [address] Rosy Patel MD [address] [place] [address] Health Maintenance Due Date Last Done Comments [...] YEAR FOR COPD 06/19/2024 06/20/2023 Albumin/Creatinine Ratio 07/09/20242 024, 08/08/2022, 12/07/2021, Additional [...] filedocumented as of this encounter Care Teams Sharemilker Relationship Specialty Start Date End Date Jody Arora MD [address] [place] [address] [place] [id number] PCP - General Family Medicine 11/21/21 documented as of this encounter
--- OUTSIDE RECORDS SUMMARY | 2023-08-27 01:27 | External Medical Summary ---
Author Name Unknown Address Unknown Organization [id number]:LABORATORY [facility] [place] - [facility] [address] [place] [address] Laboratory Report Ordering Provider Test Date Status JOELMELVIN 07/10/2023 13:50:18 Final Normal: <30 mg/g creatinine< br/>High: 30-300 mg/g creatinine
Very High: >300 mg/g creatinine
Nephrotic: >2200 mg/g creatinine Observation Date Value Abnormality Reference (Units ) Status Albumin, Urine 07/10/2023 13:50:18 19.57 (mg/dL) Final Creatinine, Urine 07/10/2023 13:50:18 54 (mg/dL) Final Albumin/Creatinine [Mass Ratio] in Urine 07/10/2023 13:50:18 362 Above high normal <30 (mg/g Creat) Final Performing Location LABORATORY [facility] - [facility] [address] [place] [address]
--- OUTSIDE RECORDS SUMMARY | 2023-08-27 01:27 | External Medical Summary ---
Author Name Unknown Address Unknown Organization [id number]:LABORATORY [facility] - [address] [place] [address] Laboratory Report Ordering Provider Test Date Status OLEGARIO MALDONADO 07/10/2023 13:50:18 Final Observation Date Value Abnormality Reference (Units ) Status Parathyrin.intact [Mass/volume] in Serum or Plasma 07/10/2023 13:50:18 238 Above high normal 15-65 (pg/mL) Final Performing Location LAB[facility]ATORY [facility] - [address] [place] [address]
--- OUTSIDE RECORDS SUMMARY | 2023-08-27 01:27 | External Medical Summary ---
Author Name Unknown Address Unknown Organization [id number]:LABORATORY [facility] [place] - [address] [place] [address] Laboratory Report Ordering Provider Test Date Status OLEGARIO MALDONADO 07/10/2023 13:50:18 Final Deficient: <20 ng/mL
Ins ufficient: 20-29 ng/mL
Recommended/Optimum:30-50 ng/mL

Vitamin D intoxication is rare. If suspicious of Vitamin D toxicity, evaluation of serum Calcium and PTH is recommended. Observation Date Value Abnormality Reference (Units ) Status 25-OH Vitamin D total 07/10/2023 13:50:18 28 >19 (ng/mL) Final Performing Location LABORATORY C - [address] [place] [address]
--- OUTSIDE RECORDS SUMMARY | 2023-08-27 01:27 | External Medical Summary ---
Author Name Unknown Address Unknown Organization K01:LABORATORY [address] [place] [address] Laboratory Report Ordering Provider Test Date Status OLEGARIO MALDONADO 07/10/2023 13:50:18 Final Observation Date Value Abnormality Reference (Units ) Status BUN 07/10/2023 13:50:18 77 Above high normal 6-20 (mg/dL) Final Creatinine 07/10/2023 13:50:18 4.3 Above high normal 0.6-1.2 (mg/dL) Final Glomerular filtration rate/1.73 sq M.predicted [Volume Rate/Area] in Serum, Plasma or Blood by Creatinine-based formula (CKD-EPI) 07/10/2023 13:50:18 13 Below low normal >=60 (mL/min) Final eGFR is calculated based on the CKD-EPI 2020 equation Sodium 07/10/2023 13:50:18 143 135-146 (m mol/L) Final Potassium 07/10/2023 13:50:18 3.9 3.5-5.1 (m mol/L) Final Cl 07/10/2023 13:50:18 97 Below low normal 98- 107 (mmol/L) Final CO2 07/10/2023 13:50:18 28 22-32 (mmo l/L) Final Anion gap 07/10/2023 13:50:18 18 Above high normal 7- 15 (mmol/L) Final Glucose 07/10/2023 13:50:18 172 Above high normal 70 -120 (mg/dL) Final Calcium 07/10/2023 13:50:18 8.2 Below low normal 8.4 -10.2 (mg/dL) Final Albumin 07/10/2023 13:50:18 3.8 3.8-5.0 (g /dL) Final Phosphate 07/10/2023 13:50:18 6.2 Above high normal 2. 5-4.8 (mg/dL) Final Performing Location LABORATORY [facility] [place] - [address] [facility] [address]
[2023-08-27] MEDS: HEPARIN SOD (PORCINE) 1000 UNIT/ML ONE ×2 (01:29→08:14)
[2023-08-27] MEDS: HEPARIN SOD (PORCINE) 1000 UNIT/ML IV ONE (01:41)
[2023-08-27] MEDS: guaiFENesin/CODEINE 100MG/10MG 5ML UDC PO PRN (01:56)
[2023-08-27 07:40] LABS: Hemoglobin 8.5 g/dl (14.0-18.0); Mean Corpuscular Hemoglobin 26.3 pg (25.0-34.0); Mean Corpuscular Hgb Conc 30.4 g/dL (32.0-36.0); Mean Corpuscular Volume 86.7 fL (80.0-100.0); Mean Platelet Volume 10.3 fL (9.4-12.4); Platelet Count 113 K/uL (130-400); RDW Standard Deviation 49.9 fL (36.4-46.3); Red Blood Count 3.23 M/uL (4.70-6.10); White Blood Count 8.62 K/ul (4.8-10.8)
[2023-08-27 08:07] LABS: BUN Creatinine Ratio 18.7 (10-20); Calcium 8.1 mg/dl (8.6-10.3); Creatinine Clr Calc Pharmacy 14.5 ml/min; Est GFR (African American) 15.5 ml/min; Est GFR (Non-African American) 13.4 ml/min; Magnesium 2.2 mg/dl (1.7-2.4); Phosphorus 4.5 mg/dl (2.5-4.9); Potassium 4.9 mmol/L (3.5-5.1)
[2023-08-27 08:10] LABS: ANTI-Xa, UFH(UnfractionatedHep 0.17 IU/ml (0.3-0.7)
[2023-08-27] MEDS: ROSUVASTATIN CALCIUM 10 MG TAB PO SCH (09:12)
[2023-08-27] MEDS: VENLAFAXINE HCL XR 37.5 MG CAPXR PO SCH (09:12)
[2023-08-27] MEDS: CALCIUM ACETATE 667 MG CAP/TAB PO SCH (09:12)
[2023-08-27] MEDS: TAMSULOSIN HCL 0.4 MG CAP PO SCH (09:12)
--- NOTE | 2023-08-27 09:30 | Cardiology Consultation ---
Date of Consultation August 27, 2023 Assessment & Plan (1) Acute on chronic respiratory failure with hypoxia and hypercapnia: (2) Atrial fibrillation with RVR: (3) End-stage renal disease (ESRD): (4) Volume overload: Plan Patient admitted for worsening respiratory status, multifactorial with worsening hypoxia, cough, and volume status. Has not been tolerating full HD sessions. Awaiting for dialysis today. He did receive several doses of IV lasix in the ER. Urine outputs not measured. During nebulizer treatments, patient developed afib with RVR. Treated with IV metoprolol and oral carvedilol transitioned to oral metoprolol. Started on IV heparin. [id number] score is 7. joint terminal attack controller anticoagulation recommended. 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 DOAC not recommended given ESRD. Will transition to oral Coumadin during hospitalization. Continue IV heparin for now. Hbg 8.5 which is relatively table over the last few years. Echo was attempted but patient was not able to tolerate positioning. Remote history of CAD. Continue ASA and statin Labile hypertension Continue nifedipine 60 mg BID. Low threshold to reduce dose if persistent hypotension noted during dialysis. Appreciate nephrology recommendations in regards dialysis and fluid removal. Patient was also started on antibiotics as patient has long history of aspiration pneumonia, likely contributing to his pulm status. Case discussed with Dr. Gooden I spent a total of 60 minutes on the date of service in preparation, delivery, and documentation of the care provided to this patient, excluding any time spent in the performance of separately billed services. Sylvia Zurita PA-C Department of Cardiology, [facility] This chart was completed in part utilizing Speech Voice Recognition Software. Grammatical errors, random word insertions, pronoun errors, and incomplete sentences are an occasional consequence of this system due to software limitations, ambient noise, and hardware issues. Any formal questions or concerns about the content, text, or information contained within the body of this dictation should be directly addressed to the provider for clarification. Supervising Physician Co-Signing Physician Notes I have personally performed a history and physical examination on the patient. I have reviewed the advance practitioner's documentation, and I agree with, and take responsibility for the plan of care. 83-year-old male admitted with acute on chronic respiratory insufficiency due to volume overload, CHF, and probable community-acquired pneumonia. Treated with I V diuretic therapy, however, minimal urine output noted due to renal status. Hemodialysis treatment today. Consider reducing/discontinue nifedipine pending ongoing blood pressure assessment during hospitalization. Continue low-dose metoprolol and rosuvastatin as ordered. Antibiotics as per internal medicine. I spent a total of 35 minutes on the date of service in preparation, delivery, and documentation of the care provided to this patient, excluding any time spent in the performance of separately billed services. History of Present Illness Reason for Consultation: Afib RVR; CHF Requesting Physician: Dr. Matthew Attending Physician: Jj Oliveira MD History of Present Illness Patient is a 83 year old male admitted to [facility] with worsening SOB, fluid retention, abdominal bloating over the last few weeks. Patient previously followed with Dr. Zaragoza, then [facility] (Dr. Ledesma) with last cardio visit in 05/2021. Notes reviewed. History includes: 1. Remote ID with stent to the left circumflex in 1998. Last cath in 2019 with patent stent and mild luminal irregularities. 2. ESRD with recent start of HD in the last few weeks 3. Moderate LVH 4. Hypertension 5. Dyslipidemia 6. COPD with chronic respiratory failure, hypoxia on supplemental O24 24/7 - 4 L at baseline. 7. History of prior CVA with right sided weakness 8. history of prior DVT/PE (previously on warfarin) Patient reports worsening/progressive SOB and cough for the last few weeks with thick yellow sputum. He started dialysis several weeks ago but feels he is not tolerating sessions, often stopping prematurely. He continues to take diuretics as outpatient and does make some urine. He reports increased abdominal bloating with the SOB. No chest pain. He came to the ER for evaluation/treatment. Chest xray with mild pulm edema. Started on IV diuretics and received 2 doses since admission. He is to wear supplemental O2, 4 L 24/7, but has not been compliant with use. He received duoneb treatment in the ER and then developed afib with elevated rates. Treated with IV metoprolol. Started on IV heparin. Overnight he converted to NSR. At time of consult, patient resting in bed. Ongoing cough, congestion and SOB reported by patient. No chest pain. No palpitations. No significant edema. Echo was attempted at time of my evaluation but patient was not tolerating positioning for echocardiogram. Allergies Allergy/AdvReac Type Severity Reaction Status Date / Time No Known Allergies Allergy Verified 08/26/23 17:37 Home Medications Medication Instructions Recorded Confirmed Type carvedilol 3.125 mg tablet (Coreg) 3.125 mg PO BID 02/01/22 08/26/23 History nifedipine 60 mg tablet,extended 60 mg PO BID 02/01/22 08/26/23 History release 24 hr (Procardia XL) venlafaxine 37.5 mg 37.5 mg PO DAILY 02/01/22 08/26/23 History capsule,extended release 24 hr (Effexor XR) sodium bicarbonate 650 mg tablet 1,300 mg PO AMHS 06/19/22 08/26/23 History tamsulosin 0.4 mg capsule (Flomax) 0.4 mg PO QAM 06/19/22 08/26/23 History albuterol sulfate 2.5 mg/3 mL 2.5 mg inhalation UD 05/14/23 08/26/23 History (0.083 %) solution for nebulization albuterol sulfate 5 mg/mL(0.5 %) 2.5 mg inhalation UD 05/14/23 08/26/23 History solution for nebulization hydroxyzine HCl 50 mg tablet 50 mg PO HS PRN Insomnia 05/14/23 08/26/23 History nitroglycerin 0.4 mg sublingual 0.4 mg sublingual UD PRN Chest Pain 05/14/23 08/26/23 History tablet (Nitrostat) rosuvastatin 10 mg tablet 10 mg PO QAM 05/14/23 08/26/23 History buspirone 5 mg tablet 5 mg PO AMHS 08/26/23 08/26/23 History calcium acetate(phosphat bind) 667 1,334 mg PO UD 08/26/23 08/26/23 History mg capsule glycopyrrolate 9 mcg-formoterol 2 puff inhalation BID 08/26/23 08/26/23 History 4.8 mcg HFA aerosol inhaler (Bevespi Aerosphere) hydralazine 25 mg tablet 25 mg PO 3XWK 08/26/23 08/26/23 History midodrine 5 mg tablet 5 mg PO 3XWK 08/26/23 08/26/23 History torsemide 20 mg tablet 80 mg PO BID 08/26/23 08/26/23 History vitamin B complex-vitamin C-folic 1 tab PO 3XWK 08/26/23 08/26/23 History acid 0.8 mg tablet (Izzy-Vianney) Patient History Medical History Multifocal pneumonia History of DVT (deep vein thrombosis) Left renal mass Pneumonia due to COVID-19 virus Urinary frequency Hx of blood clots "IN MY LEGS AND 1 IN MY LUNGS A LONG TIME AGO">WAS ON BLOOD THINNERS, CAUSED BY PHLEBITIS History of COVID-19 02/02/22>STILL HAS FATIGUE Adjustment disorder with mixed disturbance of emotions and conduct History of basal cell carcinoma Carotid stenosis, right 50-69% stenosis to right ICA; <50% stenosis to left ICA per 06/22/21 carotid duplex History of stroke 2017 OR 2017 >NO RESIDUAL History of ID (myocardial infarction) 1998 MOLLY and COPD overlap syndrome WEARS 4L O2 AT HS Prediabetes PT DENIES Renal osteodystrophy Papillary renal cell carcinoma WITH MALIGNANCY>NO TREATMENT YET (CURRENT DX) Surgical History History of anesthesia reaction SLOW TO WAKE UP History of arthroscopy LEFT KNEE History of colonoscopy History of tooth extraction History of tonsillectomy History of cataract surgery RT/LEFT History of cholecystectomy History of appendectomy History of heart artery stent 1998>? # STENTS PLACED [facility] [facility]FOLLWED BY DR[facility]) Family History Other Colorectal cancer No family history of adverse response to anesthesia Social History Smoking Status: Former smoker Second Hand Exposure: No; Do You Dip or Chew Tobacco: No; Hx Alcohol Use: No Hx Substance Use: No Preferred Language: Micronesian Communication Ability: Effective Travel Accommodations Rater Required: No Beliefs That Will Affect Care: None Current Living Situation: Spouse Feels Safe at Home: Yes Safety Concerns: Feels Safe At This Time Assistive Devices: Cane, Denture - Upper and Oxygen - Continuous Review of Systems Review of Systems: All systems reviewed & are unremarkable except as noted in HPI & below Physical Exam Constitutional: WD/WN, vitals as above + ill appearing and + obese Neck: + thick neck Respiratory: + labored breathing and + cough Auscu ltation: + rales and + rhonchi Cardiovascular: Rate/Rhythm: regular rate and regular rhythm Heart Sounds: + murmur (II/ systolic murmur) Vessels: no JVD Extremities: no edema Gastrointestinal (Abdomen): normal bowel sounds, soft, nontender, no hepatosplenomegaly Skin: no rashes, warm and dry Neurologic: PERRL, EOMI, accommodation nl, no face palsy, no dysarthria Results & Data Vital Signs (Past 12 Hours) Vital Signs Pulse Pulse Resp BP Pulse Ox O2 Del Method O2 Flow Rate 08/27/23 07:44 Nasal Cannula 4 08/27/23 04:00 85 18 146/64 H 92 Nasal Cannula 4 08/27/23 02:00 82 20 131/71 95 Nasal Cannula 4 08/26/23 23:56 90 22 135/71 95 Nasal Cannula 08/26/23 23:08 83 Laboratory Results Cardiac Enzymes 08/26/23 08/26/23 Range/Units 14:35 20:22 AST 13 (13-39) U/L Troponin I High Sens 36.1 H 42.0 H (0-20) pg/ml B-Natriuretic Peptide 448 H (0-100) pg/ml Coagulation 08/26/23 Range/Units 14:35 PT 10.9 (9.0-12.0) Seconds APTT 27 (21-31) Seconds B-Natriuretic Peptide 448 H (0-100) pg/ml CBC 08/26/23 08/27/23 Range/Units 14:35 07:20 WBC 7.94 8.62 (4.8-10.8) K/ul RBC 3.55 L 3.23 L (4.70-6.10) M/uL Hgb 9.2 L 8.5 L (14.0-18.0) g/dl Hct 30.6 L 28.0 L (42.0-52.0) % Plt Count 109 L 113 L (130-400) K/uL Neut # (Auto) 6.76 H (1.40-6.50) K/uL Lymph # (Auto) 0.25 L (1.20-3.40) K/uL [place] # (Auto) 0.81 H (0.11-0.59) K/uL Eos # (Auto) 0.08 (0.00-0.50) K/uL Baso # (Auto) 0.02 (0.00-0.20) K/uL Comprehensive Metabolic Panel 08/26/23 08/27/23 Range/Units 14:35 07:20 Sodium 137 136 (136-145) mmol/L Potassium 4.1 4.9 (3.5-5.1) mmol/L Chloride 97 L 98 (98-107) mmol/L Carbon Dioxide 32 28 (21-32) mmol/L BUN 60 H 73 H (6-23) mg/dl Creatinine 3.76 H 3.90 H (0.6-1.4) mg/dl Glucose 179 H 171 H (70-99(Fasting)) mg/dl Calcium 8.5 L 8.1 L (8.6-10.3) mg/dl Direct Bilirubin 0.1 (0-0.2) mg/dl AST 13 (13-39) U/L ALT 11 (7-52) U/L Alkaline Phosphatase 55 (34-104) U/L Total Protein 6.8 (6.0-8.3) gm/dl Albumin 3.7 (3.4-5.0) gm/dl Intake and Output 08/26/23 08/27/23 08/27/23 22:59 06:59 14:59 Intake Total 121.55 / 121.55 134.667 / 134.667 Output Total 100 / 100 Balance -100 / 21.55 121.55 / 21.55 134.667 / 134.667 Intake: IV 121.55 / 121.55 134.667 / 134.667 Heparin Sodium/Dextrose 25,000 121.55 / 121.55 134.667 / 134.667 units In 500 ml @ 850 UNITS/HR 17 mls/hr IV .Q24H [facility] Rx#: [id number] Output: Urine 100 / 100 Diagnostic Findings Telemetry reviewed: Currently NSR in the 80's. Converted from afib last evening around 11:30 PM. EKG reviewed dated 08/26/23: Atrial fib with RVR LAD, LAFB chest xray reviewed: Mild pulm edema Prior echo from Apr 2023: LVEF 60-65% Moderate LVH Grade I diastolic dysfunction RV is normal in size Mild aortic stenosis Mild TR Estimated pulm pressure is 38 mmHg Medications Administered Current Inpatient Medications Acetaminophen (Acetaminophen 325 Mg Tab) 650 mg PO Q4H PRN PRN Reason: Pain or Fever Stop: 09/25/23 19:51 Albuterol (Albut/Ipratrop 3mg/0.5mg Neb 3 Ml Vial) 3 ml NEB QIDR [facility]; Protocol Stop: 09/26/23 12:39 Last Admin: 08/27/23 13:52 Dose: 3 ml Buspirone HCl (Buspirone 5 Mg Tab) 5 mg PO AMHS [facility] Stop: 09/25/23 20:59 Last Admin: 08/27/23 09:12 Dose: 5 mg Calcium Acetate (Calcium Acetate 667 Mg Cap/Tab) 1,334 mg PO TIDM [facility] Stop: 09/26/23 07:59 Last Admin: 08/27/23 13:33 Dose: 1,334 mg Guaifenesin (Guaifenesin 600 Mg Tabcr) 600 mg PO Q12 [facility] Stop: 09/25/23 20:59 Last Admin: 08/27/23 09:12 Dose: 600 mg Hydralazine HCl (Hydralazine Hcl 25 Mg Tab) 25 mg PO DAILY PRN PRN Reason: With Dialysis Stop: 09/25/23 19:51 Hydroxyzine HCl (Hydroxyzine Hcl 25 Mg Tab) 50 mg PO HS PRN PRN Reason: Insomnia Stop: 09/25/23 19:51 Heparin Sodium/Dextrose (Heparin Sodium/Dextrose) 25,000 units in 500 mls @ 23 mls/hr IV .[id number] [facility]; Protocol Stop: 09/25/23 17:44 Last Titration: 08/27/23 08:14 Dose: 1,150 units/hr, 23 mls/hr Ceftriaxone Sodium (Rocephin) 2,000 mg in 50 mls @ 100 mls/hr IV Q24H [facility] Stop: 08/29/23 12:29 Vancomycin HCl 1,750 mg/ (Sodium Chloride) 535 mls @ 200 mls/hr IV NOW ONE Stop: 08/27/23 14:55 Last Admin: 08/27/23 13:42 Dose: 200 mls/hr Metoprolol Tartrate (Metoprolol Tartrate 25 Mg Tab) 12.5 mg PO Q6H [facility] Stop: 09/25/23 17:54 Last Admin: 08/27/23 13:33 Dose: 12.5 mg Midodrine (Midodrine Hcl 2.5 Mg Tab) 5 mg PO DAILY PRN PRN Reason: PRIOR TO DIALYSIS Stop: 09/25/23 19:51 Miscellaneous Information (Vancomycin Consult Active) 1 each N/A UD PRN PRN Reason: Consult Stop: 09/26/23 12:04 Nifedipine (Nifedipine Extended Rel 30 Mg Tabcr) 60 mg PO BID [facility] Stop: 09/25/23 20:59 Last Admin: 08/27/23 09:12 Dose: 60 mg Polyethylene Glycol (Polyethylene (Miralax) 17 Gm Pack) 17 gm PO DAILY PRN PRN Reason: Constipation Stop: 09/25/23 19:51 Rosuvastatin Calcium (Rosuvastatin Calcium 10 Mg Tab) 10 mg PO QAM [facility] Stop: 09/26/23 08:59 Last Admin: 08/27/23 09:12 Dose: 10 mg Sodium Bicarbonate (Sodium Bicarbonate 650 Mg Tab) 1,300 mg PO AMHS [facility] Stop: 09/25/23 20:59 Last Admin: 08/27/23 09:12 Dose: 1,300 mg Tamsulosin HCl (Tamsulosin Hcl 0.4 Mg Cap) 0.4 mg PO QAM [facility] Stop: 09/26/23 08:59 Last Admin: 08/27/23 09:12 Dose: 0.4 mg Umeclidinium/Vilanterol (Umeclidinium/Vilanterol 62.5/25mcg 7 Puffs/Inhaler) 1 puffs INH DAILY [facility]; Protocol Stop: 09/25/23 20:44 Last Admin: 08/27/23 09:16 Dose: 1 puffs Venlafaxine HCl (Venlafaxine Hcl Xr 37.5 Mg Capxr) 37.5 mg PO DAILY [facility] Stop: 09/26/23 08:59 Last Admin: 08/27/23 09:12 Dose: 37.5 mg Vitamin B Complex/Folic Acid (Nephrocaps) 1 cap PO DAILY PRN PRN Reason: AFTER DIALYSIS Stop: 09/25/23 20:41
[2023-08-27 10:15] LABS: A calco-baum cmplx NotReported Not Detected (NotDetected); Bact fragilis Not Reported Not Detected (NotDetected); Blood Culture Id Panel See PCR Comment (NotDetected); C auris Not Reported Not Detected (NotDetected); Calbicans Not Reported Not Detected (NotDetected); Candida glabrata Not Reported Not Detected (NotDetected); Candida krusei Not Reported Not Detected (NotDetected); Cneoformans/gatti Not Reported Not Detected (NotDetected); Cparapsilosis Not Reported Not Detected (NotDetected); E cloacae compx Not Reported Not Detected (NotDetected); Efaecalis Not Reported Not Detected (NotDetected); Efaecium Not Reported Not Detected (NotDetected); Enterobacterales Not Reported Not Detected (NotDetected); Escherichia coli Not Reported Not Detected (NotDetected); H influenzae Not Reported Not Detected (NotDetected); K aerogenes Not Reported Not Detected (NotDetected); Koxytoca Not Reported Not Detected (NotDetected); Kpneumoniae grp Not Reported Not Detected (NotDetected); Lmonocyt Not Reported Not Detected (NotDetected); N meningitidis Not Reported Not Detected (NotDetected); P aeruginosa Not Reported Not Detected (NotDetected); Proteus spp Not Reported Not Detected (NotDetected); Salmonella spp Not Reported Not Detected (NotDetected); Smarcescens Not Reported Not Detected (NotDetected); Staph lugdunensis Not Reported Not Detected (NotDetected); Staph spp. Not Reported Not Detected (NotDetected); Staphaureus Not Reported Not Detected (NotDetected); Staphepi Not Reported Not Detected (NotDetected); Stenmaltophilia Not Reported Not Detected (NotDetected); Strep agal(GrpB) Not Reported Not Detected (NotDetected); Strep pneum Not Reported Not Detected (NotDetected); Strep pyog (GrpA) Not Reported Not Detected (NotDetected); Strep spp Not Reported DETECTED (NotDetected)
[2023-08-27 11:48] LABS: A calco-baum cmplx NotReported Not Detected (NotDetected); Bact fragilis Not Reported Not Detected (NotDetected); Blood Culture Id Panel See PCR Comment (NotDetected); C auris Not Reported Not Detected (NotDetected); Calbicans Not Reported Not Detected (NotDetected); Candida glabrata Not Reported Not Detected (NotDetected); Candida krusei Not Reported Not Detected (NotDetected); Cneoformans/gatti Not Reported Not Detected (NotDetected); Cparapsilosis Not Reported Not Detected (NotDetected); E cloacae compx Not Reported Not Detected (NotDetected); Efaecalis Not Reported Not Detected (NotDetected); Efaecium Not Reported Not Detected (NotDetected); Enterobacterales Not Reported Not Detected (NotDetected); Escherichia coli Not Reported Not Detected (NotDetected); H influenzae Not Reported Not Detected (NotDetected); K aerogenes Not Reported Not Detected (NotDetected); Koxytoca Not Reported Not Detected (NotDetected); Kpneumoniae grp Not Reported Not Detected (NotDetected); Lmonocyt Not Reported Not Detected (NotDetected); N meningitidis Not Reported Not Detected (NotDetected); P aeruginosa Not Reported Not Detected (NotDetected); Proteus spp Not Reported Not Detected (NotDetected); Salmonella spp Not Reported Not Detected (NotDetected); Smarcescens Not Reported Not Detected (NotDetected); Staph lugdunensis Not Reported Not Detected (NotDetected); Staph spp. Not Reported DETECTED (NotDetected); Staphaureus Not Reported Not Detected (NotDetected); Staphepi Not Reported DETECTED (NotDetected); Stenmaltophilia Not Reported Not Detected (NotDetected); Strep agal(GrpB) Not Reported Not Detected (NotDetected); Strep pneum Not Reported Not Detected (NotDetected); Strep pyog (GrpA) Not Reported Not Detected (NotDetected); Strep spp Not Reported Not Detected (NotDetected); mecAC Resistant Gene Not Detected (NotDetected)
[2023-08-27 11:59] LABS: Staphylococcus epidermidis DETECTED (NotDetected); Staphylococcus spp. DETECTED (NotDetected)
[2023-08-27 11:59] LABS: Streptococcus spp DETECTED (NotDetected)
[2023-08-27] MEDS ORDERED: VANCOMYCIN CONSULT ACTIVE PRN (12:05)
--- NOTE | 2023-08-27 12:40 | Electrocardiogram Report ---
Test Reason : Blood Pressure : / mmHG Vent. Rate : 145 BPM Atrial Rate : 000 BPM P-R Int : 000 ms QRS Dur : 134 ms QT Int : 342 ms P-R-T Axes : 000 -73 079 degrees QTc Int : 531 ms Atrial fibrillation with rapid ventricular response with premature ventricular or aberrantly conducte d complexes Left axis deviation Right bundle branch block Abnormal ECG When compared with ECG of 26-AUG-2023 14:27, No significant change was found Confirmed by Eliseo Bennett ([id number]) on 08/27/2023 12:39:50 PM Referred By: REFERRED SELF Confirmed By:Shiv Bennett
--- NOTE | 2023-08-27 13:25 | Pharmacy Report ---
Pharmacy PK ABX Note - Date of Service August 27, 2023 - Assessment and Plan Assessment 83 year old M receiving vancomycin and ceftriaxone empirically. Blood cultures preliminarily (+) GPC in clusters in 03/21 and GPC in chains in 03/21. Blood biofire indicates Strep spp and Staph epidermidis which may represent contamination. Pt is ESRD on HD (recently initiated). Day #1 of antimicrobial therapy. Plan Vancomycin * Loading dose: 1750 mg IV x 1 * Will dose by levels given HD * Random level tomorrow AM to guide further dosing Pharmacy will continue to follow and will adjust dose/frequency as necessary. Thank you.
[2023-08-27] MEDS: VANCOMYCIN HCL 1,750 MG in SODIUM CHLORIDE 0.9% 500 ML IV ONE (13:42)
[2023-08-27] MEDS: ALBUT/IPRATROP 3MG/0.5MG NEB 3 ML VIAL NEB SCH (13:44)
[2023-08-27] MEDS ORDERED: Nursing to Pharmacy Communication SCH (14:30)
--- NOTE | 2023-08-27 15:21 | Nephrology Consultation ---
Date of Consultation August 27, 2023 Assessment & Plan (1) End-stage renal disease (ESRD): Dialysis days are TTS. Will do him tomorrow. He is having hard time in dialysis--Unable to tolerate even 3 hrs of dialysis--BP, Discomfort etc. His last treatment was Saturday and he had it for 3 hrs ( says the first time for him) . However, he has felt progressively worse since this treatment. He has not noted any significant improvement in his breathing since starting the HD. He does still make urine although reports this has been decreasing in amount. Also he is seriously questioning whether to continue Dialysis or not. his creat and lytes are fine for ESRD. dialysis mainly done for help with fluid and breathing. will do dialysis tomorrow--3.5 hrs and take 2.5 kilo off. Will do on 3 k bath. this will be lot more UF and time than as outpt. I do feel we have to try being more aggressive while inpt. Will give midodrine 5mg before dialysis and also 25% alb. to allow for more aggressive fluid removal Stop Nifedipine. (2) Acute on chronic respiratory failure with hypoxia and hypercapnia: many factors--Advanced Lung Dz, Untreated MOLLY are main feature and acute Pneumonia on top. Fluid overload is not the main cause here but will try more aggressive UF than usual. (3) Atrial fibrillation with RVR: Plan time spent 48 min. Spoke with Daughter who is a medical doctor. History of Present Illness Attending Physician: Jj Oliveira MD History of Present Illness 83/M with ESRD on TTS in [facility] with Dr Patel Started recently within last few weeks mainly to help his Chronic SOB. 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 Pt was last admitted to 05/14-05/17/23 for acute on chronic respiratory failure and hemoptysis found likely secondary to pneumonia with possible aspiration component. Treated with IV Unasyn transitioned to Augmentin at discharge. Since discharge, he reports that the hemoptysis had improved until he noted scant bright blood in the his sputum last night and today. He has continued to struggle with fluid overload despite increasing doses of diuretics. he is having hard time in dialysis--Unable to tolerate even 3 hrs of dialysis--BP, Discomfort etc. His last treatment was Saturday and he had it for 3 hrs ( says the first time for him) . However, he has felt progressively worse since this treatment. The dyspnea on exertion has been worsening slightly each day for the last 2-3 weeks. He is supposed to be wearing 4L of O2 at all times. cough has become increasingly productive of thick yellow to green sputum. He has also noted issues with shoulder pain for which he has been seeing orthopedics. He has not noted any significant improvement in his breathing since starting the HD. He does still make urine although reports this has been decreasing in amount. Also he is seriously questioning whether to continue Dialysis or not. He denies fevers or chills. His abdominal distention has also worsened. Since admission Blood C/s and infection panel done. Now on Iv vanco and Ceftriaxone. has GPC clusters in blood and Possible pneumonia. Was in Afibb and now on heparin also. ROS--see HPI. otherwise 12 Systems reviewed and negative Physical Exam Constitutional: WD/WN, vitals as above + ill appearing and + obese Neck: Supple. No JVD noted but has short neck Respiratory: + labored breathing and + cough Auscult ation: + rales and + rhonchi Cardiovascular: Rate/Rhythm: regular rate and regular rhythm Heart Sounds: + murmur (II/ systolic murmur) Extremities: Trace edema Gastrointestinal (Abdomen): normal bowel sounds, soft, nontender, no hepatosplenomegaly Skin: no rashes, warm and dry Neurologic: PERRL, EOMI, accommodation nl, no face palsy, no dysarthria Allergies Allergy/AdvReac Type Severity Reaction Status Date / Time No Known Allergies Allergy Verified 08/26/23 17:37 Home Medications Medication Instructions Recorded Confirmed Type carvedilol 3.125 mg tablet (Coreg) 3.125 mg PO BID 02/01/22 08/26/23 History nifedipine 60 mg tablet,extended 60 mg PO BID 02/01/22 08/26/23 History release 24 hr (Procardia XL) venlafaxine 37.5 mg 37.5 mg PO DAILY 02/01/22 08/26/23 History capsule,extended release 24 hr (Effexor XR) sodium bicarbonate 650 mg tablet 1,300 mg PO AMHS 06/19/22 08/26/23 History tamsulosin 0.4 mg capsule (Flomax) 0.4 mg PO QAM 06/19/22 08/26/23 History albuterol sulfate 2.5 mg/3 mL 2.5 mg inhalation UD 05/14/23 08/26/23 History (0.083 %) solution for nebulization albuterol sulfate 5 mg/mL(0.5 %) 2.5 mg inhalation UD 05/14/23 08/26/23 History solution for nebulization hydroxyzine HCl 50 mg tablet 50 mg PO HS PRN Insomnia 05/14/23 08/26/23 History nitroglycerin 0.4 mg sublingual 0.4 mg sublingual UD PRN Chest Pain 05/14/23 08/26/23 History tablet (Nitrostat) rosuvastatin 10 mg tablet 10 mg PO QAM 05/14/23 08/26/23 History buspirone 5 mg tablet 5 mg PO AMHS 08/26/23 08/26/23 History calcium acetate(phosphat bind) 667 1,334 mg PO UD 08/26/23 08/26/23 History mg capsule glycopyrrolate 9 mcg-formoterol 2 puff inhalation BID 08/26/23 08/26/23 History 4.8 mcg HFA aerosol inhaler (Bevespi Aerosphere) hydralazine 25 mg tablet 25 mg PO 3XWK 08/26/23 08/26/23 History midodrine 5 mg tablet 5 mg PO 3XWK 08/26/23 08/26/23 History torsemide 20 mg tablet 80 mg PO BID 08/26/23 08/26/23 History vitamin B complex-vitamin C-folic 1 tab PO 3XWK 08/26/23 08/26/23 History acid 0.8 mg tablet (Izzy-Vianney) Patient History Medical History Multifocal pneumonia History of DVT (deep vein thrombosis) Left renal mass Pneumonia due to COVID-19 virus Urinary frequency Hx of blood clots "IN MY LEGS AND 1 IN MY LUNGS A LONG TIME AGO">WAS ON BLOOD THINNERS, CAUSED BY PHLEBITIS History of COVID-19 02/02/22>STILL HAS FATIGUE Adjustment disorder with mixed disturbance of emotions and conduct History of basal cell carcinoma Carotid stenosis, right 50-69% stenosis to right ICA; <50% stenosis to left ICA per 06/22/21 carotid duplex History of stroke 2017 OR 2018 >NO RESIDUAL History of AL (myocardial infarction) 1998 MOLLY and COPD overlap syndrome WEARS 4L O2 AT HS Prediabetes PT DENIES Renal osteodystrophy Papillary renal cell carcinoma WITH MALIGNANCY>NO TREATMENT YET (CURRENT DX) Surgical History History of anesthesia reaction SLOW TO WAKE UP History of arthroscopy LEFT KNEE History of colonoscopy History of tooth extraction History of tonsillectomy History of cataract surgery RT/LEFT History of cholecystectomy History of appendectomy History of heart artery stent 1998>? # STENTS PLACED IN [facility] (FOLLWED BY DR. JACK SOUSA [facility]) Family History Other Colorectal cancer No family history of adverse response to anesthesia Social History Smoking Status: Former smoker Second Hand Exposure: No; Do You Dip or Chew Tobacco: No; Hx Alcohol Use: No Hx Substance Use: No Preferred Language: Swedish Communication Ability: Effective Health Care Recruiter Required: No Beliefs That Will Affect Care: None Current Living Situation: Spouse Feels Safe at Home: Yes Safety Concerns: Feels Safe At This Time Assistive Devices: Cane, Denture - Upper and Oxygen - Continuous Results & Data Vital Signs (Past 12 Hours) Vital Signs Pulse Pulse Resp BP BP Pulse Ox Pulse Ox 08/27/23 14:42 95 08/27/23 14:22 91 08/27/23 13:53 68 22 93 08/27/23 13:32 70 24 113/56 L 94 08/27/23 10:03 85 17 164/75 H 96 08/27/23 09:24 85 24 93 08/27/23 08:09 90 16 08/27/23 07:44 08/27/23 07:00 94 08/27/23 04:00 85 18 146/64 H 92 Pulse Ox Pulse Ox O2 Del Method O2 Flow Rate O2 Flow Rate O2 Flow Rate O2 Flow Rate 08/27/23 14:42 08/27/23 14:22 90 89 L 4 4 4 08/27/23 13:53 Nasal Cannula 4 08/27/23 13:32 Nasal Cannula 4 08/27/23 10:03 4 08/27/23 09:24 4 08/27/23 08:09 08/27/23 07:44 Nasal Cannula 4 08/27/23 07:00 4 08/27/23 04:00 Nasal Cannula 4 Laboratory Results reviewed Diagnostic Findings reviewed
[2023-08-27 15:40] LABS: ANTI-Xa, UFH(UnfractionatedHep 0.24 IU/ml (0.3-0.7)
[2023-08-27] MEDS ORDERED: hydrOXYzine HCl 25 MG TAB PO PRN (16:23)
--- NOTE | 2023-08-27 16:23 | Hospitalist Progress Note ---
Date of Service August 27, 2023 Assessment & Plan (1) Volume overload: Plan: This is an 83 y/o male with a complex medical history including CAD s/p stent, ESRD with recent HD start, O2 dependent COPD, MOLLY, HTN, prior CVA with right weakness, prediabetes, prior DVT/PE (was on warfarin), and other history as outlined below who presents to the ED today with chest pain, worsening productive cough, and increased dyspnea on e Acute on chronic Hypoxic respiratory failure Acute on chronic diastolic heart failure in setting of ESRD Possible pneumonia COPD excerebration Multiple cause for acute on chronic hypoxic respiratory failure including pulmonary edema, COPD exacerbation and possible pneumonia For volume overload -nephrology planning for dialysis tomorrow For COPD [id number] DuoNeb, budesonide and formoterol nebs and prednisone for 5 days For possible pneumoniacontinue on ceftriaxone and doxycycline, hypertonic saline nebs for airway clearence. Gram-positive cocci in blood culture, possible contamination Blood culture 1 of 4 shows gram-positive cocci in chains Blood culture 1 out of 4 showing gram-positive cocci in clusters Started on empiric vancomycin; plan to stop if confirmed contamination. Repeat blood culture tomorrow a.m. (2) Atrial fibrillation with RVR: Plan: New-onset atrial fibrillation with RVR. Given Lopressor 5 mg IV x 1 dose in the ED with improvement in rate. - Started metoprolol tartrate 12.5 mg Q6 hours - Starting heparin gtt due to elevated [id number] 7 Cardiology on board; recommend metoprolol and heparin. Plan to start Coumadin during the hospitalization. Echo pending (3) HTN (hypertension): Plan: Was previously on nifedipine; to be discontinued as per nephro Coreg changed to metoprolol Stop hydralazine given new onset A-fib (4) End-stage renal disease (ESRD): Plan: Dialysis as per nephrology Continue on sodium bicarb, calcium acetate (5) Dyslipidemia: Plan: Continue on statin (6) BPH (benign prostatic hyperplasia): Plan: Continue home meds Plan Full code DVT prophylaxis heparin Time spent evaluating patient, direct bedside care, chart review, placing orders, interpretation of diagnostic studies, discussion with consultants, patient, and family members, as well as other required patient management activities is 50 minutes Please note the above document was generated using voice recognition software. It may contain grammatical, syntax or spelling errors. Any formal questions or concerns about the content, text or information contained within the body of this dictation should be directly addressed to the provider for clarification Admission and Anticipated Discharge Date Admission Date: August 26, 2023 Subjective Patient seen and examined at bedside. He is sitting on the chair at the side of the bed; not in distress. He reports shortness shortness of breath on minimal exertion. Denies any chest pain. No significant events overnight Review of Systems Review of Systems: All systems reviewed & are unremarkable except as noted in Subjective Physical Exam Physical Exam: Constitutional: WD/WN, vitals as above, NAD, sitting up in bed, pleasant, conversing easily Respiratory: Bilateral wheeze present; crackles at bases. Cardiovascular: irregular, no murmur, no edema Vessels: no JVD or carotid bruit Chest: normal inspection of chest Abdomen: normal bowel sounds, soft, nontender, no hepatosplenomegaly Musculoskeletal: no cyanosis or clubbing, extremities motor strength 5/5 Skin: 1 + pitting edema Neurologic: PERRL, EOMI, accommodation nl, no face palsy, no dysarthria CN's II- XI intact bilaterally and moves all extremities Psychiatric: A+Ox3, euthymic affect Results & Data Results & Data Vital Signs (Past 12 Hours) Vital Signs Pulse Pulse Resp BP BP Pulse Ox Pulse Ox 08/27/23 14:42 95 08/27/23 14:22 91 08/27/23 13:53 68 22 93 08/27/23 13:32 70 24 113/56 L 94 08/27/23 10:03 85 17 164/75 H 96 08/27/23 09:24 85 24 93 08/27/23 08:09 90 16 08/27/23 07:44 08/27/23 07:00 94 Pulse Ox Pulse Ox O2 Del Method O2 Flow Rate O2 Flow Rate O2 Flow Rate O2 Flow Rate 08/27/23 14:42 08/27/23 14:22 90 89 L 4 4 4 08/27/23 13:53 Nasal Cannula 4 08/27/23 13:32 Nasal Cannula 4 08/27/23 10:03 4 08/27/23 09:24 4 08/27/23 08:09 08/27/23 07:44 Nasal Cannula 4 08/27/23 07:00 4 (3) HTN (hypertension) Hypertension type: unspecified Qualified Code(s): I10 - Essential (primary) hypertension
[2023-08-27] MEDS: predniSONE 20 MG TAB PO SCH (17:11)
[2023-08-27] MEDS: cefTRIAXone SODIUM 2,000 MG/50 ML BAG IV SCH (17:14)
--- NOTE | 2023-08-27 17:17 | Electrocardiogram Report ---
Test Reason : Blood Pressure : / mmHG Vent. Rate : 092 BPM Atrial Rate : 340 BPM P-R Int : 000 ms QRS Dur : 140 ms QT Int : 406 ms P-R-T Axes : 088 -73 047 degrees QTc Int : 502 ms Atrial flutter with variable A-V block Right bundle branch block Left anterior fascicular block Bifascicular block Abnormal ECG When compared with ECG of 26-AUG-2023 15:34, Atrial flutter has replaced Atrial fibrillation Vent. rate has decreased BY 53 BPM Confirmed by Eliseo Bennett ([id number]) on 08/27/2023 5:16:25 PM Referred By: REFERRED SELF Confirmed By:Shiv Bennett
[2023-08-27] MEDS: SODIUM CHLOR 7% 4 ML NEB NEB SCH (19:33)
[2023-08-27] MEDS: FORMOTEROL 20 MCG/2 ML VIAL NEB SCH (19:34)
[2023-08-27] MEDS: BUDESONIDE 0.5 MG/2 ML VIAL (PULMICORT) NEB SCH (19:34)
[2023-08-27] MEDS: DOXYCYCLINE HYCLATE 100 MG CAP PO SCH (20:17)
[2023-08-27 23:42] LABS: ANTI-Xa, UFH(UnfractionatedHep 0.25 IU/ml (0.3-0.7)
[2023-08-28 06:38] LABS: Hemoglobin 8.3 g/dl (14.0-18.0); Mean Corpuscular Hemoglobin 26.4 pg (25.0-34.0); Mean Corpuscular Hgb Conc 30.7 g/dL (32.0-36.0); Mean Platelet Volume 10.7 fL (9.4-12.4); Platelet Count 122 K/uL (130-400); RDW Coefficient of Variation 15.9 % (11.5-14.5); RDW Standard Deviation 49.1 fL (36.4-46.3); Red Blood Count 3.14 M/uL (4.70-6.10); White Blood Count 9.38 K/ul (4.8-10.8)
[2023-08-28 06:49] LABS: BUN Creatinine Ratio 22.1 (10-20); Calcium 8.5 mg/dl (8.6-10.3); Creatinine Clr Calc Pharmacy 13.8 ml/min; Est GFR (African American) 14.7 ml/min; Est GFR (Non-African American) 12.7 ml/min; Potassium 5.7 mmol/L (3.5-5.1)
[2023-08-28] MEDS ORDERED: SODIUM CHLORIDE 0.9% 1,000 ML IV PRN (07:00)
[2023-08-28] MEDS ORDERED: ALBUMIN 25% 12.5 GM/50 ML VIAL IV ONE (07:00)
[2023-08-28 07:09] LABS: Basophils # (auto) 0.01 K/uL (0.00-0.20); Basophils % (auto) 0.1 %; Immature Granulocytes # (auto) 0.03 K/uL (0.01-0.20); Immature Granulocytes % (auto) 0.3 %; Lymphocytes # (auto) 0.24 K/uL (1.20-3.40); Lymphocytes % (auto) 2.6 %; Monocytes # (auto) 0.46 K/uL (0.11-0.59); Monocytes % (auto) 4.9 %; Neutrophils # (auto) 8.64 K/uL (1.40-6.50); Neutrophils % (auto) 92.1 %
[2023-08-28] MEDS: PERFLUTREN LIPID MICROSPHERE (DEFINITY) IV ONE (08:02)
--- NOTE | 2023-08-28 08:26 | Pharmacy Report ---
Pharmacy PK ABX Note - Date of Service August 28, 2023 - Assessment and Plan Microbiology 08/26/23 14:40 Blood Aerobic Blood Culture - Preliminary 08/26/23 14:40 Blood Anaerobic Blood Culture - Preliminary Gram positive cocci clusters Coag neg staph not lugdunensis 08/26/23 14:35 Blood Aerobic Blood Culture - Preliminary 08/26/23 14:35 Blood Anaerobic Blood Culture - Preliminary Alpha strep not S.pne/enteroco No growth in Anaerobic bottle after 24 hours. Assessment 83 year old M receiving vancomycin and ceftriaxone empirically. Blood cultures preliminarily (+) GPC in clusters, Coag neg staph not lugdunensis in 1/4 and Alpha strep not S.pne/enteroco in 1/4, which may represent contamination. Repeat BCs drawn today to guide possible discontinuation. Pt is ESRD on HD (recently initiated). Day #2 of antimicrobial therapy. Plan Vancomycin * Loading dose: 1750 mg IV x 1 given yesterday at 1215 * Random level today = 15.6mcg/mL, therapeutic, requires re-dosing after HD today * Vancomycin 750mg IV x1 today after HD * Random level tomorrow AM to guide further dosing Ceftriaxone 2g IV q24h Pharmacy will continue to follow and will adjust dose/frequency as necessary. Thank you.
[2023-08-28] MEDS: LORazepam 0.5 MG TAB PO PRN (08:27)
[2023-08-28] MEDS: MIDODRINE HCL 2.5 MG TAB PO PRN (08:27)
--- NOTE | 2023-08-28 10:01 | Dialysis Progress Note ---
Date of Service August 28, 2023 Assessment & Plan Admission and Anticipated Discharge Date Admission Date: August 26, 2023 Subjective Assessment & Plan (1) End-stage renal disease (ESRD): Dialysis days are TTS. Will do him tomorrow. He is having hard time in dialysis--Unable to tolerate even 3 hrs of dialysis--BP, Discomfort etc. His last treatment was Saturday and he had it for 3 hrs ( says the first time for him) . However, he has felt progressively worse since this treatment. He has not noted any significant improvement in his breathing since starting the HD. He does still make urine although reports this has been decreasing in amount. Also he is seriously questioning whether to continue Dialysis or not. his creat and lytes are fine for ESRD. dialysis was mainly started to help with fluid and breathing. will do dialysis --3.5 hrs and take 2.5 kilo off. Already saying cannot do more than 3 hrs ??. Will do on 2 k bath. this will be lot more UF and time than as outpt. I do feel we have to try being more aggressive while inpt. Will give midodrine 5mg before dialysis and also 25% alb. To allow for more aggressive fluid removal Stop Nifedipine. his Bicarb is 29 even after no dialysis for 4 days. Can stop Sodium bicarb to minimize pill burden. (2) Acute on chronic respiratory failure with hypoxia and hypercapnia: many factors--Advanced Lung Dz, Untreated MOLLY are main feature and acute Pneumonia on top. Fluid overload is not the main cause here but will try more aggressive UF than usual. (3) Atrial fibrillation with RVR: S----Seen during Dialysis. AVF worked fine. has Some pain in shoulder. Physical Exam Constitutional: WD/WN, vitals as above + ill appearing and + obese Neck: Supple. No JVD noted but has short neck Respiratory: + labored breathing and + cough Auscult ation: + rales and + rhonchi Cardiovascular: Rate/Rhythm: regular rate and regular rhythm Heart Sounds: + murmur (II/ systolic murmur) Extremities: Trace edema Gastrointestinal (Abdomen): normal bowel sounds, soft, nontender, no hepatosplenomegaly Skin: no rashes, warm and dry Neurologic: PERRL, EOMI, accommodation nl, no face palsy, no dysarthria Results & Data Vital Signs (Past 12 Hours) Vital Signs Temp Pulse Pulse Resp BP Pulse Ox O2 Del Method 08/28/23 08:00 Nasal Cannula 08/28/23 08:00 62 08/28/23 07:07 65 20 145/73 H 98 Nebulizer 08/28/23 06:54 87 20 94 Nasal Cannula 08/28/23 03:19 36.5 C 71 18 157/81 H 93 Nasal Cannula 08/27/23 22:50 72 08/27/23 22:39 36.6 C 63 18 144/71 H 93 Nasal Cannula O2 Flow Rate 08/28/23 08:00 4 08/28/23 08:00 08/28/23 07:07 08/28/23 06:54 5 08/28/23 03:19 3 08/27/23 22:50 08/27/23 22:39 3
[2023-08-28] MEDS: ALBUMIN 25% 12.5 GM/50 ML VIAL IV ONE (12:25)
[2023-08-28] MEDS: EPOETIN ALFA 10,000 UNITS/ML VIAL IV ONE (12:25)
--- NOTE | 2023-08-28 13:13 | Hospitalist Progress Note ---
Date of Service August 28, 2023 Assessment & Plan (1) Acute on chronic respiratory failure with hypoxia and hypercapnia: (2) Restrictive lung disease: (3) End-stage renal disease (ESRD): (4) COPD with exacerbation: (5) Chronic hypoxemic respiratory failure: (6) Anemia of chronic renal failure: (7) New onset atrial fibrillation: (8) Volume overload: Plan Patient with acute exacerbation of COPD in the setting of possible pneumonia. Blood cultures appear to be contaminant Narrow antibiotics to doxycycline Communication with nephrology and cardiology, can start DOAC for his atrial fibrillation. Discontinue IV heparin and start Eliquis. He will be bided with 1 month [employer] to investigate ongoing cost Patient at his baseline 4 L of oxygen support, continue Continue steroids for exacerbation of COPD Continue dialysis for decompensated heart failure Increase activity Anticipate home tomorrow with home health Admission and Anticipated Discharge Date Admission Date: August 26, 2023 Subjective Seen while in hemodialysis states breathing at baseline. No chest pain Physical Exam Physical Exam: Constitutional: Alert HEENT: Mucous membranes moist. Lungs: Clear to auscultation, decreased, few scattered rhonchi, few scattered wheezes CV: S1-S2, irregular, controlled rate Abdomen: Soft, nontender, nondistended Extremities: Pretibial edema Neuro: No focal deficits Psych: Cooperative, normal mood Results & Data Results & Data Vital Signs (Past 12 Hours) Vital Signs Temp Pulse Pulse Pulse Resp BP BP 08/28/23 12:30 86 148/77 H 08/28/23 12:00 82 119/73 08/28/23 11:30 85 162/63 H 08/28/23 11:00 81 146/77 H 08/28/23 10:30 82 154/84 H 08/28/23 10:02 78 134/71 08/28/23 09:54 36.4 C L 80 08/28/23 08:00 08/28/23 08:00 62 08/28/23 07:07 65 20 145/73 H 08/28/23 06:54 87 20 08/28/23 03:19 36.5 C 71 18 157/81 H Pulse Ox O2 Del Method O2 Flow Rate 08/28/23 12:30 08/28/23 12:00 08/28/23 11:30 08/28/23 11:00 08/28/23 10:30 08/28/23 10:02 08/28/23 09:54 08/28/23 08:00 Nasal Cannula 4 08/28/23 08:00 08/28/23 07:07 98 Nebulizer 08/28/23 06:54 94 Nasal Cannula 5 08/28/23 03:19 93 Nasal Cannula 3 Diagnostic Findings Reviewed imaging, laboratory and diagnostic studies. Pertinent findings as below. Hemoglobin 8.3, baseline
--- NOTE | 2023-08-28 14:35 | Cardiology Progress Note ---
Date of Service August 28, 2023 Assessment & Plan (1) Acute on chronic respiratory failure with hypoxia and hypercapnia: (2) Atrial fibrillation with RVR: (3) End-stage renal disease (ESRD): (4) Volume overload: Plan Patient admitted for worsening respiratory status, multifactorial with worsening hypoxia, cough, and volume status. Has not been tolerating full HD sessions. Awaiting for dialysis today. He did receive several doses of IV lasix in the ER. Urine outputs not measured. During nebulizer treatments, patient developed afib with RVR. Treated with IV metoprolol and oral carvedilol transitioned to oral metoprolol. Started on IV heparin. [id number] score is 7. terminal manager anticoagulation recommended. 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 DOAC not recommended given ESRD. Will transition to oral Coumadin during hospitalization. Continue IV heparin for now. Hbg 8.5 which is relatively table over the last few years. Remote history of CAD. Continue ASA and statin Labile hypertension Continue nifedipine 60 mg BID. Low threshold to reduce dose if persistent hypotension noted during dialysis. Appreciate nephrology recommendations in regards dialysis and fluid removal. Patient was also started on antibiotics as patient has long history of aspiration pneumonia, likely contributing to his pulm status. 08/28/23: Patient with improving respiratory status/cough/congestion since admission. Continue antibiotics per hospitalist for likely underlying pneumonia. Fluid status to be managed with HD. Appreciate npehrology assistance. Patient has issues with hypotension during dialysis. Treated with midodrine. Nifedipine dose held/reduced. Patient developed PAF earlier this admission, converting to nsr. Carvedilol transitioned to metoprolol. Continue 25 mg BID on discharge. CHADSVASC score of 7 and terminal manager anticoagulation recommended. Discussed coumadin vs DOAC with hospitalist and nephrology. Ok to proceed with renal dosed Eliquis. Case management to assist with cost. Case discussed with Dr. Gooden I spent a total of 30 minutes on the date of service in preparation, delivery, and documentation of the care provided to this patient, excluding any time spent in the performance of separately billed services. Sylvia Zurita PA-C Department of Cardiology, [facility] This chart was completed in part utilizing Speech Voice Recognition Software. Grammatical errors, random word insertions, pronoun errors, and incomplete sentences are an occasional consequence of this system due to software limitations, ambient noise, and hardware issues. Any formal questions or concerns about the content, text, or information contained within the body of this dictation should be directly addressed to the provider for clarification. Admission and Anticipated Discharge Date Admission Date: August 26, 2023 Supervising Physician Co-Signing Physician Notes I have personally performed a history and physical examination on the patient. I have reviewed the advance practitioner's documentation, and I agree with, and take responsibility for the plan of care. 83-year-old male admitted with acute on chronic respiratory insufficiency due to volume overload, CHF, and probable community-acquired pneumonia. Management of volume status per hemodialysis. Appreciate nephrology input. Carvedilol transition to metoprolol due to paroxysmal atrial fibrillation. Remains in sinus rhythm on telemetry. Agree with renal dose Eliquis, 2.5 mg twice daily. Antibiotics as per internal medicine. I spent a total of 30 minutes on the date of service in preparation, delivery, and documentation of the care provided to this patient, excluding any time spent in the performance of separately billed services. Subjective Patient seen/examined during dialysis. Ongoing SOB and cough reported but improved from yesterday. Dialysis nurses are having issues with his fistula. calling Vascular and nephrology. No chest pain. No dizziness. No palpitations. Review of Systems 2 Review of Systems: All systems reviewed & are unremarkable except as noted in HPI & below Physical Exam Constitutional: WD/WN, vitals as above + ill appearing and + obese Neck: + thick neck Respiratory: no labored breathing and no cough Auscultation: + rales Cardiovascular: Rate/Rhythm: regular rate and regular rhythm Heart Sounds: + murmur (II/ systolic murmur) Vessels: no JVD Extremities: no edema Gastrointestinal (Abdomen): normal bowel sounds, soft, nontender, no hepatosplenomegaly Skin: no rashes, warm and dry Neurologic: PERRL, EOMI, accommodation nl, no face palsy, no dysarthria Results & Data Vital Signs (Past 12 Hours) Vital Signs Temp Pulse Pulse Pulse Resp BP BP 08/28/23 14:16 84 18 08/28/23 14:05 91 H 20 143/71 H 08/28/23 13:25 36.4 C L 96 H 167/83 H 08/28/23 13:00 84 137/87 08/28/23 12:30 86 148/77 H 08/28/23 12:00 82 119/73 08/28/23 11:30 85 162/63 H 08/28/23 11:00 81 146/77 H 08/28/23 10:30 82 154/84 H 08/28/23 10:02 78 134/71 08/28/23 09:54 36.4 C L 80 08/28/23 08:00 08/28/23 08:00 62 08/28/23 07:07 65 20 145/73 H 08/28/23 06:54 87 20 08/28/23 03:19 36.5 C 71 18 157/81 H Pulse Ox O2 Del Method O2 Flow Rate 08/28/23 14:16 94 Nasal Cannula 5 08/28/23 14:05 95 Nasal Cannula 08/28/23 13:25 08/28/23 13:00 08/28/23 12:30 08/28/23 12:00 08/28/23 11:30 08/28/23 11:00 08/28/23 10:30 08/28/23 10:02 08/28/23 09:54 08/28/23 08:00 Nasal Cannula 4 08/28/23 08:00 08/28/23 07:07 98 Nebulizer 08/28/23 06:54 94 Nasal Cannula 5 08/28/23 03:19 93 Nasal Cannula 3 Laboratory Results CBC 08/28/23 Range/Units 05:59 WBC 9.38 (4.8-10.8) K/ul RBC 3.14 L (4.70-6.10) M/uL Hgb 8.3 L (14.0-18.0) g/dl Hct 27.0 L (42.0-52.0) % Plt Count 122 L (130-400) K/uL Neut # (Auto) 8.64 H (1.40-6.50) K/uL Lymph # (Auto) 0.24 L (1.20-3.40) K/uL Island # (Auto) 0.46 (0.11-0.59) K/uL Eos # (Auto) 0.00 (0.00-0.50) K/uL Baso # (Auto) 0.01 (0.00-0.20) K/uL Comprehensive Metabolic Panel 08/28/23 Range/Units 05:59 Sodium 133 L (136-145) mmol/L Potassium 5.7 H (3.5-5.1) mmol/L Chloride 95 L (98-107) mmol/L Carbon Dioxide 29 (21-32) mmol/L BUN 90 H (6-23) mg/dl Creatinine 4.08 H (0.6-1.4) mg/dl Glucose 168 H (70-99(Fasting)) mg/dl Calcium 8.5 L (8.6-10.3) mg/dl Intake and Output 08/27/23 08/28/23 08/28/23 22:59 06:59 14:59 Intake Total 1293.267 / 2125.567 516.8 / 2125.567 630.416 / 630.416 Output Total 150 / 600 450 / 600 350 / 350 Balance 1143.267 / 1525.567 66.8 / 1525.567 280.416 / 280.416 Intake: IV 793.267 / 1265.567 156.8 / 1265.567 390.416 / 390.416 Albumin 25% 12.5 gm In 50 ml @ 50 / 50 50 mls/hr IV ONE ONE Rx#: [id number] Heparin Sodium/Dextrose 25,000 208.267 / 680.567 156.8 / 680.567 340.416 / 340.416 units In 500 ml @ 1,250 UNITS/ HR 25 mls/hr IV .Q20H [facility] Rx#: [id number] Vancomycin HCl 1,750 mg In 535 / 535 Sodium Chloride 0.9% 500 ml @ 200 mls/hr IV NOW ONE Rx#: [id number] cefTRIAXone SODIUM 2,000 mg In 50 / 50 50 ml @ 100 mls/hr IV Q24H [facility] Rx#:[id number] Oral 500 / 860 360 / 860 240 / 240 Output: Urine 150 / 600 450 / 600 350 / 350 Other: Hemodialysis Ultrafiltration 2,500 Amount Weight 89.6 kg Weight Measurement Method Built in [facility] Patient Weight 08/29/23 06:59 Weight 89.6 kg Diagnostic Findings Telemetry reviewed: NSR 60-70's. No recurrent atrial fibrillation Medications Administered Current Inpatient Medications Acetaminophen (Acetaminophen 325 Mg Tab) 650 mg PO Q4H PRN PRN Reason: Pain or Fever Stop: 09/25/23 19:51 Albuterol (Albut/Ipratrop 3mg/0.5mg Neb 3 Ml Vial) 3 ml NEB QIDR [facility]; Protocol Stop: 09/26/23 12:39 Last Admin: 08/28/23 14:16 Dose: 3 ml Apixaban (Apixaban 5 Mg Tablet) 5 mg PO BID [facility] Stop: 09/27/23 20:59 Budesonide (Budesonide 0.5 Mg/2 Ml Vial (Pulmicort)) 0.5 mg NEB BIDR [facility] Stop: 09/26/23 18:59 Last Admin: 08/28/23 06:55 Dose: 0.5 mg Buspirone HCl (Buspirone 5 Mg Tab) 5 mg PO AMHS [facility] Stop: 09/25/23 20:59 Last Admin: 08/28/23 07:23 Dose: 5 mg Calcium Acetate (Calcium Acetate 667 Mg Cap/Tab) 1,334 mg PO TIDM [facility] Stop: 09/26/23 07:59 Last Admin: 08/28/23 13:35 Dose: 1,334 mg Doxycycline Hyclate (Doxycycline Hyclate 100 Mg Cap) 100 mg PO BID [facility] Stop: 09/03/23 20:59 Last Admin: 08/28/23 07:24 Dose: 100 mg Formoterol Fumarate (Formoterol 20 Mcg/2 Ml Vial) 20 mcg NEB BIDR [facility] Stop: 09/26/23 20:59 Last Admin: 08/28/23 06:55 Dose: 20 mcg Guaifenesin (Guaifenesin 600 Mg Tabcr) 600 mg PO Q12 [facility] Stop: 09/25/23 20:59 Last Admin: 08/28/23 07:24 Dose: 600 mg Hydroxyzine HCl (Hydroxyzine Hcl 25 Mg Tab) 25 mg PO HS PRN PRN Reason: Insomnia Stop: 09/25/23 19:51 Sodium Chloride (Nss) 1,000 mls @ 0 mls/hr IV .Q0M PRN PRN Reason: For Hemodialysis Use ONLY Stop: 08/29/23 12:59 Lorazepam (Lorazepam 0.5 Mg Tab) 0.25 mg PO ONE PRN PRN Reason: Prior to diaylsis Stop: 09/27/23 06:19 Last Admin: 08/28/23 08:27 Dose: 0.25 mg Metoprolol Tartrate (Metoprolol Tartrate 25 Mg Tab) 25 mg PO BID [facility] Stop: 09/27/23 20:59 Midodrine (Midodrine Hcl 2.5 Mg Tab) 5 mg PO DAILY PRN PRN Reason: PRIOR TO DIALYSIS Stop: 09/25/23 19:51 Last Admin: 08/28/23 08:27 Dose: 5 mg Nifedipine (Nifedipine Extended Rel 30 Mg Tabcr) 30 mg PO QAM [facility] Stop: 09/28/23 08:59 Polyethylene Glycol (Polyethylene (Miralax) 17 Gm Pack) 17 gm PO DAILY PRN PRN Reason: Constipation Stop: 09/25/23 19:51 Prednisone (Prednisone 20 Mg Tab) 40 mg PO DAILY [facility] Stop: 09/01/23 16:29 Last Admin: 08/28/23 07:24 Dose: 40 mg Rosuvastatin Calcium (Rosuvastatin Calcium 10 Mg Tab) 10 mg PO QAM [facility] Stop: 09/26/23 08:59 Last Admin: 08/28/23 07:23 Dose: 10 mg Sodium Chloride (Sodium Chlor 7% 4 Ml Neb) 4 ml NEB BIDR [facility] Stop: 09/26/23 18:59 Last Admin: 08/28/23 06:55 Dose: 4 ml Tamsulosin HCl (Tamsulosin Hcl 0.4 Mg Cap) 0.4 mg PO QAM [facility] Stop: 09/26/23 08:59 Last Admin: 08/28/23 07:23 Dose: 0.4 mg Venlafaxine HCl (Venlafaxine Hcl Xr 37.5 Mg Capxr) 37.5 mg PO DAILY [facility] Stop: 09/26/23 08:59 Last Admin: 08/28/23 07:23 Dose: 37.5 mg Vitamin B Complex/Folic Acid (Nephrocaps) 1 cap PO DAILY PRN PRN Reason: AFTER DIALYSIS Stop: 09/25/23 20:41
[2023-08-28] MEDS ORDERED: VANCOMYCIN HCL 750 MG in SODIUM CHLORIDE 0.9% 250 ML IV ONE (16:00)
[2023-08-28] MEDS: METOPROLOL TARTRATE 25 MG TAB PO SCH (19:24)
[2023-08-28] MEDS ORDERED: APIXABAN 5 MG TABLET PO SCH (21:00)
[2023-08-28] MEDS ORDERED: APIXABAN 2.5 MG TAB PO SCH (21:00)
[2023-08-28] MEDS: APIXABAN 2.5 MG TAB PO SCH (21:52)
[2023-08-29] MEDS ORDERED: SODIUM CHLORIDE 0.9% 1,000 ML IV PRN (07:00)
[2023-08-29] MEDS: NIFEdipine EXTENDED REL 30 MG TABCR PO SCH (07:24)
--- NOTE | 2023-08-29 10:42 | Discharge Summary ---
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 Pt was last admitted to this facility 05/14-05/17/23 for acute on chronic respiratory failure and hemoptysis found likely secondary to pneumonia with possible aspiration component. Treated with IV Unasyn before being transitioned to Augmentin at discharge. Since discharge, he reports that the hemoptysis had improved until he noted scant bright blood in the his sputum last night and today. He has continued to struggle with fluid overload despite increasing doses of diuretics. He reports recently starting dialysis but notes difficulty tolerating the treatments due to multiple symptoms. His last treatment was two days ago, and he reports tolerating it for three hours. However, he has felt progressively worse since this treatment. The dyspnea on exertion has been worsening slightly each day for the last 2-3 weeks. He reports being unable to walk further than from the bed to the door of the room without needing to stop and rest. He is supposed to be wearing 4L of O2 at all times, but review of outpatient records demonstrates some difficulty with patient complying with this recommendation. Over the last few days, his cough has become increasingly productive of thick yellow to green sputum. Cough may be forceful at times. He has also noted issues with shoulder pain for which he has been seeing orthopedics. He has not noted any significant improvement in his breathing since starting the HD. He does still make urine although reports this has been decreasing in amount. He denies fevers or chills. His abdominal distention has also worsened. Admission Exam Per Admitting Provider See H&P Principal Diagnosis Acute exacerbation of COPD New onset atrial fibrillation rapid ventricular response Discharge Exam Constitutional: Alert, seen at hemodialysis HEENT: Mucous membranes moist. Lungs: Decreased breath sounds, some diffuse rhonchi and wheezing at baseline CV: S1-S2, regular Abdomen: Soft, nontender, nondistended Extremities: Chronic 1+ lower extremity edema Neuro: No focal deficits Psych: Cooperative, normal mood Discharge Data Allergies Allergy/AdvReac Type Severity Reaction Status Date / Time No Known Allergies Allergy Verified 08/26/23 17:37 Consultations 08/26/23 16:58 ED Decision to Admit Stat 08/26/23 19:52 Consult Cardiology Routine Consult Nephrology Routine Ordered Studies Reviewed imaging, laboratory and diagnostic studies. Pertinent findings as below. Hemoglobin stable at 8.5 Chemistries consistent with his end-stage renal disease Echocardiogram ejection fraction 60 to 65%. Moderate LVH no wall motion abnormality. Moderate aortic valve sclerosis EKG atrial flutter Hospital Course (1) Acute on chronic respiratory failure with hypoxia and hypercapnia: (2) Restrictive lung disease: (3) End-stage renal disease (ESRD): (4) COPD with exacerbation: (5) Chronic hypoxemic respiratory failure: (6) Anemia of chronic renal failure: (7) New onset atrial fibrillation: (8) Volume overload: Plan Patient was admitted to the hospital. He was treated for exacerbation of COPD with steroids and antibiotics. He required higher flow of oxygen due to acute on chronic respiratory failure due to his exacerbation of COPD. Patient started responding to this treatment. Nephrology consultation was obtained for ongoing hemodialysis needs. He did have also have a component of volume overload. During his hospitalization the patient converted into atrial fibrillation with rapid ventricular response. Cardiology consultation was obtained. He was treated with metoprolol. Converted to sinus rhythm. He was initially started on IV heparin for anticoagulation with a high Weston score of 7. After discussion with cardiology nephrology he was converted to renally dosed Eliquis. Patient's respiratory failure steadily improved and his oxygen flow was titrated down to his baseline requirements. His heart rhythm was controlled. Echocardiogram showed normal ejection fraction. He was tolerating his diuresis. He his beta- harish was changed from Coreg to metoprolol for rate and rhythm control. He will be discharged home with outpatient care and follow-up with his specialist including nephrology and cardiology. He will continue his usual hemodialysis schedule and home services as coordinated. Home Health Attestation I certify that this patient is under my care and that I, or a physicians assistant professor of forestry working with me, had a face to-face encounter that meets the home health [id number] encounter requirements with this patient. The encounter with the patient was in whole, or in part, for the following medical condition, which is the primary reason for home health care (list medical condition): I certify that, based on my findings, the following services are medically n [facility] home health services: My clinical findings support the need for the above services because: Further, I certify that my clinical findings support that this patient is homebound (i.e. absences from home require considerable and taxing effort and are for medical reasons or temple services or infrequently or of short duration when for other reasons) because: Certification for Home Health Services: Based on the above findings, I certify that this patient is confined to the home and needs intermittent chcf care, physical therapy and/or speech therapy or continues to need occupational therapy. The patient is under my care, and I have initiated the establishment of the plan of care. This patient will be followed by a physician who will periodically review the plan of care. Total Time Total Time Spent Total Time Spent (In Minutes): 35 Discharge Plan Discharge Items Patient Disposition: Home - Home Health Services Reason For Visit: HF Discharge Diagnosis: Acute exacerbation of COPD New onset of paroxysmal atrial fibrillation Activity: Resume your previous activity Non-emergency contact: Primary Care Provider and Cartoon Designer Call non-emergency contact if: you have any medication questions, your symptoms worsen and you have a fever Follow-up/Referrals: Mike Gooden DO [Ophthalmic Pathologist] - Wai Gerardo MD [Surgeon] - Jody Arora MD [Primary Care Provider] - Diet: Dialysis Renal Addtl Attending Provider Instructions: Resume your usual hemodialysis schedule Continue with your usual home oxygen Pending Studies at Discharge: No Stand-Alone Forms: My [facility] Adstrix, Smoking Cessation Medications and DC Order Prescriptions: New doxycycline hyclate 100 mg Capsule 100 mg PO BID 3 Days Qty: 6 0RF ipratropium-albuterol 0.5 mg-3 mg(2.5 mg base)/3 mL Solution For Nebulization 3 ml NEB QIDR Qty: 180 1RF Rx Instructions: J44.9 prednisone 20 mg Tablet 40 mg PO DAILY 3 Days Qty: 6 0RF metoprolol tartrate 25 mg Tablet 25 mg PO BID Qty: 60 0RF Eliquis 2.5 mg Tablet 2.5 mg PO BID Qty: 60 0RF guaifenesin [Mucus Relief ER] 600 mg tablet extended release 12hr 600 mg PO BID PRN (Reason: cough) Qty: 30 0RF Continued venlafaxine [Effexor XR] 37.5 mg Capsule,Extended Release 24hr 37.5 mg PO DAILY tamsulosin [Flomax] 0.4 mg Capsule 0.4 mg PO QAM midodrine 5 mg tablet 5 mg PO 3XWK buspirone 5 mg tablet 5 mg PO AMHS calcium acetate(phosphat bind) 667 mg capsule 1,334 mg PO UD Rx Instructions: 2 cap with meals, 1 cap with snacks torsemide 20 mg tablet 80 mg PO BID Izzy-Vianney 0.8 mg tablet 1 tab PO 3XWK Bevespi Aerosphere 9-4.8 mcg HFA aerosol inhaler 2 puff INHALATION BID rosuvastatin 10 mg Tablet 10 mg PO QAM hydroxyzine HCl 50 mg Tablet 50 mg PO HS PRN (Reason: Insomnia) nitroglycerin [Nitrostat] 0.4 mg Tablet, Sublingual 0.4 mg sublingual UD PRN (Reason: Chest Pain) Discontinued carvedilol [Coreg] 3.125 mg Tablet 3.125 mg PO BID Rx Instructions: must administer with a meal/food nifedipine [Procardia XL] 60 mg Tablet Extended Release 24hr 60 mg PO BID sodium bicarbonate 650 mg Tablet 1,300 mg PO AMHS hydralazine 25 mg tablet 25 mg PO 3XWK albuterol sulfate 2.5 mg /3 mL (0.083 %) Solution For Nebulization 2.5 mg INHALATION UD albuterol sulfate 5 mg/mL Solution For Nebulization 2.5 mg INHALATION UD Discharge Orders: Discharge Order (Routine); Ordered 08/29/23 Ordered By: Desmond Reveles/Other Patient Handouts: AFib Admission Data Admit Date/Time: 08/26/23 17:17 Attending Provider: Desmond Wells Admit Provider: Fabiana Matthew Primary Care Provider: Jody Arora Other Providers: Fabiana Matthew; Mike Gooden Roshan
[2023-08-29] MEDS: NEPHROCAPS PO PRN (11:29)
--- NOTE | 2023-08-29 12:36 | Cardiology Progress Note ---
Date of Service August 29, 2023 Assessment & Plan (1) Acute on chronic respiratory failure with hypoxia and hypercapnia: (2) Atrial fibrillation with RVR: (3) End-stage renal disease (ESRD): (4) Volume overload: Plan Patient admitted for worsening respiratory status, multifactorial with worsening hypoxia, cough, and volume status. Has not been tolerating full HD sessions. Awaiting for dialysis today. He did receive several doses of IV lasix in the ER. Urine outputs not measured. During nebulizer treatments, patient developed afib with RVR. Treated with IV metoprolol and oral carvedilol transitioned to oral metoprolol. Started on IV heparin. [id number] score is 7. intermediate frame tender anticoagulation recommended. 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 DOAC not recommended given ESRD. Will transition to oral Coumadin during hospitalization. Continue IV heparin for now. Hbg 8.5 which is relatively table over the last few years. Remote history of CAD. Continue ASA and statin Labile hypertension Continue nifedipine 60 mg BID. Low threshold to reduce dose if persistent hypotension noted during dialysis. Appreciate nephrology recommendations in regards dialysis and fluid removal. Patient was also started on antibiotics as patient has long history of aspiration pneumonia, likely contributing to his pulm status. 08/28/23: Patient with improving respiratory status/cough/congestion since admission. Continue antibiotics per hospitalist for likely underlying pneumonia. Fluid status to be managed with HD. Appreciate nephrology assistance. Patient has issues with hypotension during dialysis. Treated with midodrine. Nifedipine dose held/reduced. Patient developed PAF earlier this admission, converting to nsr. Carvedilol transitioned to metoprolol. Continue 25 mg BID on discharge. CHADSVASC score of 7 and intermediate frame tender anticoagulation recommended. Discussed coumadin vs DOAC with hospitalist and nephrology. Ok to proceed with renal dosed Eliquis. Case management to assist with cost. 08/29/23: Patient seen during dialysis session. Additional fluid to be removed. Ongoing wheeze noted. Patient confused with recent Ativan administration Started on low dose Eliquis 2.5 mg BID (ok with nephrology) Volume status managed with dialysis. Nifedipine discontinued. No recurrent afib. Continue metoprolol on discharge. Case discussed with Dr. Gooden I spent a total of 30 minutes on the date of service in preparation, delivery, and documentation of the care provided to this patient, excluding any time spent in the performance of separately billed services. Sylvia Zurita PA-C Department of Cardiology, [facility] This chart was completed in part utilizing Speech Voice Recognition Software. Grammatical errors, random word insertions, pronoun errors, and incomplete sentences are an occasional consequence of this system due to software limitations, ambient noise, and hardware issues. Any formal questions or concerns about the content, text, or information contained within the body of this dictation should be directly addressed to the provider for clarification. Admission and Anticipated Discharge Date Admission Date: August 26, 2023 Supervising Physician Co-Signing Physician Notes I have personally performed a history and physical examination on the patient. I have reviewed the advance practitioner's documentation, and I agree with, and take responsibility for the plan of care. 83-year-old male admitted with acute on chronic respiratory insufficiency due to volume overload, CHF, and probable community-acquired pneumonia. Management of volume status per hemodialysis. Appreciate nephrology input. Carvedilol transition to metoprolol due to paroxysmal atrial fibrillation. Remains in sinus rhythm on telemetry. Agree with renal dose Eliquis, 2.5 mg twice daily. Antibiotics as per internal medicine. I spent a total of 30 minutes on the date of service in preparation, delivery, and documentation of the care provided to this patient, excluding any time spent in the performance of separately billed services. Subjective Patient seen during dialysis. Received ativan and mild confused. Ongoing wheezing noted. Mild LE edema. Review of Systems 2 Review of Systems: All systems reviewed & are unremarkable except as noted in HPI & below Physical Exam Constitutional: WD/WN, vitals as above + ill appearing and + obese Neck: + thick neck Respiratory: no labored breathing and no cough Auscultation: + wheezes Cardiovascular: Rate/Rhythm: regular rate and regular rhythm Heart Sounds: + murmur (II/ systolic murmur) Vessels: no JVD Extremities: + edema (trace b/l edema) Gastrointestinal (Abdomen): normal bowel sounds, soft, nontender, no hepatosplenomegaly Skin: no rashes, warm and dry Neurologic: PERRL, EOMI, accommodation nl, no face palsy, no dysarthria Results & Data Vital Signs (Past 12 Hours) Vital Signs Temp Pulse Pulse Pulse Resp BP BP 08/29/23 12:02 36.4 C L 72 22 148/72 H 08/29/23 11:59 36.5 C 65 81 22 157/68 H 08/29/23 11:10 36.5 C 81 157/68 H 08/29/23 11:00 91 H 161/65 H 08/29/23 10:30 81 126/61 08/29/23 10:00 76 151/74 H 08/29/23 09:30 77 117/95 08/29/23 09:09 36.5 C 77 08/29/23 08:00 08/29/23 08:00 71 08/29/23 07:09 74 22 08/29/23 03:00 36.5 C 69 18 144/71 H Pulse Ox O2 Del Method O2 Flow Rate 08/29/23 12:02 96 Nasal Cannula 4 08/29/23 11:59 93 08/29/23 11:10 08/29/23 11:00 08/29/23 10:30 08/29/23 10:00 08/29/23 09:30 08/29/23 09:09 08/29/23 08:00 Nasal Cannula 4 08/29/23 08:00 08/29/23 07:09 93 Nasal Cannula 4 08/29/23 03:00 97 Nasal Cannula 3 Laboratory Results Intake and Output 08/28/23 08/29/23 08/29/23 22:59 06:59 14:59 Intake Total 550 / 1180.416 Balance 550 / 830.416 Intake: Oral 550 / 790 Other: Hemodialysis Ultrafiltration 1,000 Amount # Unmeasured Voids 1 Weight 89.6 kg Weight Measurement Method Built in [facility] Patient Weight 08/30/23 06:59 Weight 89.6 kg Diagnostic Findings Telemetry reviewed: NSR with occ PVC Medications Administered Current Inpatient Medications Acetaminophen (Acetaminophen 325 Mg Tab) 650 mg PO Q4H PRN PRN Reason: Pain or Fever Stop: 09/25/23 19:51 Albuterol (Albut/Ipratrop 3mg/0.5mg Neb 3 Ml Vial) 3 ml NEB QIDR [facility]; Protocol Stop: 09/26/23 12:39 Last Admin: 08/29/23 07:08 Dose: Not Given Apixaban (Apixaban 2.5 Mg Tab) 2.5 mg PO BID [facility] Stop: 09/27/23 21:44 Last Admin: 08/29/23 07:24 Dose: 2.5 mg Budesonide (Budesonide 0.5 Mg/2 Ml Vial (Pulmicort)) 0.5 mg NEB BIDR [facility] Stop: 09/26/23 18:59 Last Admin: 08/29/23 07:08 Dose: 0.5 mg Buspirone HCl (Buspirone 5 Mg Tab) 5 mg PO AMHS [facility] Stop: 09/25/23 20:59 Last Admin: 08/29/23 07:25 Dose: 5 mg Calcium Acetate (Calcium Acetate 667 Mg Cap/Tab) 1,334 mg PO TIDM [facility] Stop: 09/26/23 07:59 Last Admin: 08/29/23 11:30 Dose: 1,334 mg Doxycycline Hyclate (Doxycycline Hyclate 100 Mg Cap) 100 mg PO BID [facility] Stop: 09/03/23 20:59 Last Admin: 08/29/23 07:25 Dose: 100 mg Formoterol Fumarate (Formoterol 20 Mcg/2 Ml Vial) 20 mcg NEB BIDR [facility] Stop: 09/26/23 20:59 Last Admin: 08/29/23 07:08 Dose: 20 mcg Guaifenesin (Guaifenesin 600 Mg Tabcr) 600 mg PO Q12 [facility] Stop: 09/25/23 20:59 Last Admin: 08/29/23 07:25 Dose: 600 mg Hydroxyzine HCl (Hydroxyzine Hcl 25 Mg Tab) 25 mg PO HS PRN PRN Reason: Insomnia Stop: 09/25/23 19:51 Sodium Chloride (Nss) 1,000 mls @ 0 mls/hr IV .Q0M PRN PRN Reason: For Hemodialysis Use ONLY Stop: 08/29/23 12:59 Lorazepam (Lorazepam 0.5 Mg Tab) 0.25 mg PO ONE PRN PRN Reason: Prior to diaylsis Stop: 09/27/23 06:19 Last Admin: 08/29/23 08:33 Dose: 0.25 mg Metoprolol Tartrate (Metoprolol Tartrate 25 Mg Tab) 25 mg PO BID [facility] Stop: 09/27/23 20:59 Last Admin: 08/29/23 11:30 Dose: 25 mg Midodrine (Midodrine Hcl 2.5 Mg Tab) 5 mg PO DAILY PRN PRN Reason: PRIOR TO DIALYSIS Stop: 09/25/23 19:51 Last Admin: 08/29/23 08:33 Dose: 5 mg Polyethylene Glycol (Polyethylene (Miralax) 17 Gm Pack) 17 gm PO DAILY PRN PRN Reason: Constipation Stop: 09/25/23 19:51 Prednisone (Prednisone 20 Mg Tab) 40 mg PO DAILY [facility] Stop: 09/01/23 16:29 Last Admin: 08/29/23 07:24 Dose: 40 mg Rosuvastatin Calcium (Rosuvastatin Calcium 10 Mg Tab) 10 mg PO QAM [facility] Stop: 09/26/23 08:59 Last Admin: 08/29/23 11:29 Dose: 10 mg Sodium Chloride (Sodium Chlor 7% 4 Ml Neb) 4 ml NEB BIDR [facility] Stop: 09/26/23 18:59 Last Admin: 08/29/23 07:08 Dose: 4 ml Tamsulosin HCl (Tamsulosin Hcl 0.4 Mg Cap) 0.4 mg PO QAM [facility] Stop: 09/26/23 08:59 Last Admin: 08/29/23 07:25 Dose: 0.4 mg Venlafaxine HCl (Venlafaxine Hcl Xr 37.5 Mg Capxr) 37.5 mg PO DAILY [facility] Stop: 09/26/23 08:59 Last Admin: 08/29/23 07:25 Dose: 37.5 mg Vitamin B Complex/Folic Acid (Nephrocaps) 1 cap PO DAILY PRN PRN Reason: AFTER DIALYSIS Stop: 09/25/23 20:41 Last Admin: 08/29/23 11:29 Dose: 1 cap
== END 2023-08-29 14:48 | disposition home health service (06) | DRG 640 ==
LOC: ED 14:10 → EDINP 17:17 → SUATTDRO 17:17 → 4W 19:41

== ENCOUNTER 2023-10-31 11:34 | Inpatient (IN) ==
--- NOTE | 2023-10-31 12:22 | Emergency Department Note ---
Impression & Plan Shortness of breath, Edema, Acute hyponatremia, Hypercarbia ED Provider Note NAME: TANISHA KINNEY AGE: 83 SEX: M : 1940 ARRIVES VIA: Walk-In INFORMANT: Patient ED PROVIDER(S): Gonzales Flor DO CHIEF COMPLAINT: weak HPI: Patient is an 83-year-old male who presents the ER from dialysis who only received 2 hours of dialysis had 1.7 L removed. He was a little hypotensive. Chronically on 4 L nasal cannula. He mitts to cramping intermittently. Receives dialysis Saturday. Shortness of breath and swelling in the lower extremities and belly has been present for the past 3 weeks. He denies any headache or change in vision. No dysuria urgency or frequency. No other exacerbating or remitting factors. ADDITIONAL HISTORY OBTAINED: Per HPI Chronic Medical/Social Conditions Affecting Care: Per HPI PAST MEDICAL HISTORY:See Below PAST SURGICAL HISTORY:See Below FAMILY HISTORY:See Below SOCIAL HISTORY:See Below HOME MEDICATIONS:See Below ALLERGIES:See Below VITALS:See Below PHYSICAL EXAMINATION: GENERAL: Sitting up in bed, alert, ill-appearing on 4 L nasal cannula EYE EXAM: normal conjunctiva. PERRL and EOM's grossly intact. OROPHARYNX: mucous membranes are moist NECK: supple, no nuchal rigidity, no adenopathy, non-tender LUNGS: Clear to auscultation. Normal chest wall mechanics HEART: no murmurs, S1 normal and S2 normal ABDOMEN: abdomen soft, non-tender, normo-active bowel sounds, no masses, no rebound or guarding. BACK: Back is symmetrical on inspection and there is no deformity, no midline tenderness, no CVA tenderness. SKIN: no rashes and no bruising UPPER EXTREMITIES: upper extremities are grossly normal. LOWER EXTREMITIES: No pitting edema. NEURO EXAM: Normal sensorium, cranial nerves II-XII grossly intact, normal speech, no gross weakness of arms, no gross weakness of legs. MEDICAL DECISION MAKING: Patient is an 83-year-old male who presents to the ER for the above-stated complaint. IV was established medicals obtained. Labs show no significant leukocytosis. Mild anemia at 8.8 which is consistent with previous. VBG with a pH of 7.36 and a CO2 of 65. BMP with a creatinine of 4.6. LFTs bilirubin is unremarkable. proBNP is slightly up at 114. Lipase was normal. Chronically on 4 L nasal cannula. Chest x-ray was fairly unremarkable. Patient does not make any urine consequently Lasix was not given. He was discussed with the hospitalist for further evaluation management treatment. Consults/Care Managements Discussions: Per MDM Triage Nursing notes reviewed. Limited review of prior medical records performed Vital Signs: reviewed and remarkable for no significant abnormalities Differential diagnosis: Differential diagnoses includes but is not limited to pneumonia, bronchitis, COPD/Asthma exacerbation, pneumothorax, pulmonary embolism, congestive heart failure, acute coronary syndrome ER treatment provided: See below Diagnostics interpreted by me include EKG and cardiac monitoring as listed below: -Cardiac Monitoring: An order was placed for continuous cardiac monitoring. The monitor shows a rate of 82 with sinus rhythm. -ECG: Sinus rhythm rate 85 Left axis Right bundle branch block QTc 499 -Laboratory studies:Interpreted by me as stated above in MDM and shown below. Imaging studies: Xrays: As interpreted by me: Portable AP upright 1 view of the chest shows no focal Lutrate CTs show: none Procedures:none Critical Care: None Past Med/Surg History Problem List (Updated 10/31/23 @ 15:45 by Gonzales Flor DO) Hypercarbia (Acute) Acute hyponatremia (Acute) Edema (Acute) Shortness of breath (Acute) New onset atrial fibrillation Acute on chronic respiratory failure with hypoxia and hypercapnia Atrial fibrillation with RVR (Acute) Hypersomnolent Restrictive lung disease Chronic pulmonary aspiration Volume overload (Acute) End-stage renal disease (ESRD) (Acute) COPD with exacerbation (Acute) Dyslipidemia BPH (benign prostatic hyperplasia) Coronary artery disease S/p stent 1998 HTN (hypertension) Chronic hypoxemic respiratory failure Anemia of chronic renal failure Hgb 8-9's per record review COPD (chronic obstructive pulmonary disease) Medical History Multifocal pneumonia History of DVT (deep vein thrombosis) Left renal mass Pneumonia due to COVID-19 virus Urinary frequency Hx of blood clots "IN MY LEGS AND 1 IN MY LUNGS A LONG TIME AGO">WAS ON BLOOD THINNERS, CAUSED BY PHLEBITIS History of COVID-19 02/02/22>STILL HAS FATIGUE Adjustment disorder with mixed disturbance of emotions and conduct History of basal cell carcinoma Carotid stenosis, right 50-69% stenosis to right ICA; <50% stenosis to left ICA per 06/22/21 carotid duplex History of stroke 2017 OR 2018 >NO RESIDUAL History of [place] (myocardial infarction) 1998 MOLLY and COPD overlap syndrome WEARS 4L O2 AT HS Prediabetes PT DENIES Renal osteodystrophy Papillary renal cell carcinoma WITH MALIGNANCY>NO TREATMENT YET (CURRENT DX) Surgical History History of anesthesia reaction SLOW TO WAKE UP History of arthroscopy LEFT KNEE History of colonoscopy History of tooth extraction History of tonsillectomy History of cataract surgery RT/LEFT History of cholecystectomy History of appendectomy History of heart artery stent 1998>? # STENTS PLACED IN [facility] (FOLLWED BY DR. [facility]) Family History Other Colorectal cancer No family history of adverse response to anesthesia Social History Smoking Status: Former smoker Second Hand Exposure: No; Do You Dip or Chew Tobacco: No; Hx Alcohol Use: No Hx Substance Use: No Preferred Language: Occitan Communication Ability: Effective Bond Underwriter Required: No Beliefs That Will Affect Care: None Current Living Situation: Spouse Feels Safe at Home: Yes Assistive Devices: Cane, Denture - Upper and Oxygen - Continuous Allergies Allergies Allergy/AdvReac Type Severity Reaction Status Date / Time lorazepam AdvReac Intermediate Hallucinati Verified 09/16/23 08:39 ng/Confusio n Home Meds Home Medications Medication Instructions Recorded Confirmed venlafaxine 37.5 mg 37.5 mg PO DAILY 02/01/22 10/31/23 capsule,extended release 24 hr (Effexor XR) tamsulosin 0.4 mg capsule (Flomax) 0.4 mg PO QAM 06/19/22 10/31/23 hydroxyzine HCl 50 mg tablet 50 mg PO HS PRN Insomnia 05/14/23 10/31/23 nitroglycerin 0.4 mg sublingual 0.4 mg sublingual UD PRN Chest Pain 05/14/23 10/31/23 tablet (Nitrostat) rosuvastatin 10 mg tablet 10 mg PO QAM 05/14/23 10/31/23 buspirone 5 mg tablet 5 mg PO AMHS 08/26/23 10/31/23 glycopyrrolate 9 mcg-formoterol 1 puff inhalation BID 08/26/23 10/31/23 4.8 mcg HFA aerosol inhaler (Bevespi Aerosphere) midodrine 5 mg tablet 5 mg PO 3XWK 08/26/23 10/31/23 torsemide 20 mg tablet 100 mg PO BID 08/26/23 10/31/23 vitamin B complex-vitamin C-folic 1 tab PO 3XWK 08/26/23 10/31/23 acid 0.8 mg tablet (Izzy-Vianney) ipratropium 0.5 mg-albuterol 3 mg 3 ml NEB QIDR PRN Other 10/31/23 10/31/23 (2.5 mg base)/3 mL nebulization soln metolazone 5 mg tablet 5 mg PO UD 10/31/23 10/31/23 oxycodone 5 mg tablet 5 mg PO DIRECTED PRN Pain 10/31/23 10/31/23 Previous Rx's Medication Instructions Recorded apixaban 2.5 mg tablet (Eliquis) 2.5 mg PO BID #60 tabs 08/29/23 metoprolol tartrate 25 mg tablet 25 mg PO BID #60 tabs 08/29/23 Results & Data (ED) Vital Signs Vital Signs - 24 hr 10/31/23 11:48 10/31/23 12:13 10/31/23 12:25 Temperature 36.3 C L Temperature Source Temporal Artery Scan Pulse Rate 86 81 81 Pulse Rate [Apical] Pulse Rhythm [Apical] Pulse Strength [Apical] Respiratory Rate 16 24 Respiratory Effort / Characteristics Non-Labored Spontaneous Respiratory Depth Normal Respiratory Pattern Blood Pressure 113/63 Blood Pressure [Left Arm] Blood Pressure Mean 79 Blood Pressure Mean [Left Arm] Blood Pressure Position Sitting Blood Pressure Position [Left Arm] Pulse Oximetry 96 95 Oxygen Delivery Method Room Air Nasal Cannula Oxygen Flow Rate 4 Sepsis Recent Fever Within 48 Hours No Sepsis New/Unexplained Change in Mental Status N/A Sepsis Action Taken by Nursing No Action Required 10/31/23 12:32 10/31/23 14:00 Temperature Temperature Source Pulse Rate Pulse Rate [Apical] 84 92 H Pulse Rhythm [Apical] Regular Regular Pulse Strength [Apical] Normal Normal Respiratory Rate 24 22 Respiratory Effort / Characteristics Spontaneous Labored Non-Labored Spontaneous Respiratory Depth Normal Normal Respiratory Pattern Regular Blood Pressure Blood Pressure [Left Arm] 136/63 118/83 Blood Pressure Mean Blood Pressure Mean [Left Arm] 87 94 Blood Pressure Position Blood Pressure Position [Left Arm] Lying Sitting Pulse Oximetry 97 96 Oxygen Delivery Method Nasal Cannula Nasal Cannula Oxygen Flow Rate 4 4 Sepsis Recent Fever Within 48 Hours Sepsis New/Unexplained Change in Mental Status Sepsis Action Taken by Nursing Laboratory Data 10/31/23 12:17 10/31/23 12:17 Lab Results 10/31/23 10/31/23 10/31/23 Range/Units 12:17 12:20 12:27 WBC 9.50 (4.8-10.8) K/ul RBC 3.17 L (4.70-6.10) M/uL Hgb 8.8 L (14.0-18.0) g/dl POC Hgb 9.2 L (14.0-18.0) g/dl Hct 28.0 L (42.0-52.0) % POC Hct 27 L (42-52) % MCV 88.3 (80.0-100.0) fL MCH 27.8 (25.0-34.0) pg MCHC 31.4 L (32.0-36.0) g/dL RDW Std Deviation 53.1 H (36.4-46.3) fL RDW Coeff of John 16.5 H (11.5-14.5) % Plt Count 131 (130-400) K/uL MPV 10.2 (9.4-12.4) fL Immature Gran % (Auto) 0.5 % Neut % (Auto) 80.3 % Lymph % (Auto) 5.5 % [place] % (Auto) 12.4 % Eos % (Auto) 1.1 % Baso % (Auto) 0.2 % Neut # (Auto) 7.63 H (1.40-6.50) K/uL Lymph # (Auto) 0.52 L (1.20-3.40) K/uL [place] # (Auto) 1.18 H (0.11-0.59) K/uL Eos # (Auto) 0.10 (0.00-0.50) K/uL Baso # (Auto) 0.02 (0.00-0.20) K/uL Immature Gran # (Auto) 0.05 (0.01-0.20) K/uL VBG pH 7.36 (7.36-7.41) VBG pCO2 65 H (38-50) mmHg VBG pO2 26 mmHg VBG HCO3 37 mmol/L VBG O2 Saturation < 60.0 % VBG Base Excess 8.8 mEq/L POC Sodium 133 L (135-144) mmol/L Sodium 137 (136-145) mmol/L POC Potassium 4.5 (3.3-5.0) mmol/L Potassium 4.2 (3.5-5.1) mmol/L POC Chloride 93 L (101-112) mmol/L Chloride 93 L (98-107) mmol/L Carbon Dioxide 33 H (21-32) mmol/L POC Total CO2 31 (24-31) mmol/L Anion Gap 11 (3-11) POC Anion Gap 15.0 L (16-25) mmol/L POC BUN 53 H (7-18) mg/dl BUN 40 H (6-23) mg/dl Creatinine 4.65 H* (0.6-1.4) mg/dl POC Creatinine 5.5 H* (0.6-1.3) mg/dl Est Cr Clr Drug Dosing 12.3 ml/min Est GFR ( Amer) 12.5 ml/min Est GFR (Non-Af Amer) 10.8 ml/min BUN/Creatinine Ratio 8.6 L (10-20) Glucose 158 H (70-99(Fasting)) mg/dl POC Glucose (other) 158 H (70-99) mg/dl Calcium 8.5 L (8.6-10.3) mg/dl POC Ioniz Calcium Nan 0.91 L (1.12-1.32) mmol/l Total Bilirubin 0.6 (0.2-1.0) mg/dl AST 20 (13-39) U/L ALT 16 (7-52) U/L Alkaline Phosphatase 54 (34-104) U/L Troponin I High Sens 18.1 (0-20) pg/ml B-Natriuretic Peptide 114 H (0-100) pg/ml Total Protein 7.2 (6.0-8.3) gm/dl Albumin 4.2 (3.4-5.0) gm/dl Globulin 3.0 (2.5-4.0) gm/dl Albumin/Globulin Ratio 1.4 (0.9-2) Lipase 54 (11-82) U/L Imaging Data Radiologist's Impression: Chest X-Ray 10/31/23 12:15 XR chest 1V portable CLINICAL HISTORY: Chest pain, nonspecific COMPARISON STUDY: Chest CT July 02, 2023. Chest radiograph August 26, 2023. FINDINGS: Moderate elevation of the right hemidiaphragm is unchanged. There is no pneumothorax or pleural effusion. There is no consolidation to suggest pneumonia. Cardiomegaly is unchanged. Mediastinal contours are stable. IMPRESSION: No acute cardiopulmonary findings. ACT 112: Negative or not required by law. Electronically signed by: Jhonatan Restrepo M.D. 10/31/2023 12:58 PM Discharge Plan Visit Data Chief Complaint: Swelling/Edema to Extremity Stated Complaint: FLUID OVERLOAD, IN DIALYSIS ED Provider: Gonzales Flor Discharge Problem: Shortness of breath, Edema, Acute hyponatremia, Hypercarbia Forms Stand Alone Forms: [facility] Prescriptions Prescriptions: No Action venlafaxine [Effexor XR] 37.5 mg Capsule,Extended Release 24hr 37.5 mg PO DAILY tamsulosin [Flomax] 0.4 mg Capsule 0.4 mg PO QAM midodrine 5 mg tablet 5 mg PO 3XWK buspirone 5 mg tablet 5 mg PO AMHS torsemide 20 mg tablet 100 mg PO BID Izzy-Vianney 0.8 mg tablet 1 tab PO 3XWK Bevespi Aerosphere 9-4.8 mcg HFA aerosol inhaler 1 puff INHALATION BID metoprolol tartrate 25 mg Tablet 25 mg PO BID Qty: 60 0RF Eliquis 2.5 mg Tablet 2.5 mg PO BID Qty: 60 0RF metolazone 5 mg tablet 5 mg PO UD Rx Instructions: TAKE 1 TABLET BY MOUTH ONCE DAILY ON NON DIALYSIS DAYS (SATURDAY, SATURDAY, SATURDAY AND SATURDAY) oxycodone 5 mg tablet 5 mg PO DIRECTED PRN (Reason: Pain) ipratropium-albuterol 0.5 mg-3 mg(2.5 mg base)/3 mL solution for nebulization 3 ml NEB QIDR PRN (Reason: Other) Rx Instructions: J44.9 rosuvastatin 10 mg Tablet 10 mg PO QAM hydroxyzine HCl 50 mg Tablet 50 mg PO HS PRN (Reason: Insomnia) nitroglycerin [Nitrostat] 0.4 mg Tablet, Sublingual 0.4 mg sublingual UD PRN (Reason: Chest Pain) Referrals Referrals: Jody Arora MD [Primary Care Provider] - Discharge Problem: Edema Qualifiers: Edema type: unspecified Qualified Code(s): R60.9 - Edema, unspecified
[2023-10-31 12:31] LABS: Basophils # (auto) 0.02 K/uL (0.00-0.20); Basophils % (auto) 0.2 %; Eosinophils % (auto) 1.1 %; Hemoglobin 8.8 g/dl (14.0-18.0); Immature Granulocytes # (auto) 0.05 K/uL (0.01-0.20); Immature Granulocytes % (auto) 0.5 %; Lymphocytes # (auto) 0.52 K/uL (1.20-3.40); Lymphocytes % (auto) 5.5 %; Mean Corpuscular Hemoglobin 27.8 pg (25.0-34.0); Mean Corpuscular Hgb Conc 31.4 g/dL (32.0-36.0); Mean Corpuscular Volume 88.3 fL (80.0-100.0); Mean Platelet Volume 10.2 fL (9.4-12.4); Monocytes # (auto) 1.18 K/uL (0.11-0.59); Monocytes % (auto) 12.4 %; Neutrophils # (auto) 7.63 K/uL (1.40-6.50); Neutrophils % (auto) 80.3 %; Platelet Count 131 K/uL (130-400); RDW Coefficient of Variation 16.5 % (11.5-14.5); RDW Standard Deviation 53.1 fL (36.4-46.3); Red Blood Count 3.17 M/uL (4.70-6.10)
[2023-10-31 12:33] LABS: iSTAT Creatinine 5.5 mg/dl (0.6-1.3); iSTAT Hemoglobin 9.2 g/dl (14.0-18.0); iSTAT Ionized Calcium 0.91 mmol/l (1.12-1.32); iSTAT Potassium 4.5 mmol/L (3.3-5.0)
[2023-10-31 12:44] LABS: Base Excess VBG 8.8 mEq/L; HCO3 VBG 37 mmol/L; Oxygen Saturation VBG < 60.0 %; PCO2 VBG 65 mmHg (38-50); PO2 VBG 26 mmHg; pH VBG 7.36 (7.36-7.41)
[2023-10-31 12:54] LABS: Albumin Globulin Ratio 1.4 (0.9-2); Albumin Level 4.2 gm/dl (3.4-5.0); BUN Creatinine Ratio 8.6 (10-20); Bilirubin,Total 0.6 mg/dl (0.2-1.0); Calcium 8.5 mg/dl (8.6-10.3); Creatinine Clr Calc Pharmacy 12.3 ml/min; Est GFR (African American) 12.5 ml/min; Est GFR (Non-African American) 10.8 ml/min; Potassium 4.2 mmol/L (3.5-5.1); Total Protein 7.2 gm/dl (6.0-8.3)
[2023-10-31 12:56] LABS: Troponin I High Sensitivity 18.1 pg/ml (0-20)
--- NOTE | 2023-10-31 12:59 | XRay Report ---
XR chest 1V portable CLINICAL HISTORY: Chest pain, nonspecific COMPARISON STUDY: Chest CT July 02, 2023. Chest radiograph August 26, 2023. FINDINGS: Moderate elevation of the right hemidiaphragm is unchanged. There is no pneumothorax or ple ural effusion. There is no consolidation to suggest pneumonia. Cardiomegaly is unchanged. Mediastinal contours are stable. IMPRESSION: No acute cardiopulmonary findings. ACT 112: Negative or not required by law. Electronically signed by: Jhonatan Restrepo M.D. 10/31/2023 12:58 PM
--- NOTE | 2023-10-31 14:01 | History & Physical Report ---
Date of Service October 31, 2023 Assessment & Plan (1) Volume overload: (2) Restrictive lung disease: (3) COPD (chronic obstructive pulmonary disease): (4) Chronic hypoxemic respiratory failure: (5) End-stage renal disease (ESRD): (6) Coronary artery disease: (7) HTN (hypertension): (8) Dyslipidemia: (9) Atrial fibrillation with RVR: Plan Volume overload ESRD on HD Chronic Hypoxic Resp Failure - Admit to PCU - Diuretics at home: torsemide 100 mg BID, metolazone 5 mg on nondialysis days - pt reports making only " a thimble full" amount of urine once daily. - Consult nephrology to assist with management of volume status - will need HD, additional diuresis, last HD was today, 1.5 L removed and pt became borderline hypotensive at the facility. No further fluid was readministered since presenting to the ER due to significant edema in BLE. - Daily weights. Strict Is and Os. Dry weight = 92 kg, up to 95.7 kg on admission - Continue Spiriva 2 puffs daily, will also add on nebs, no steroids at this time due to worsening fluid retention. CAD s/p cardiac stent Afib HTN HLD Hx of DVT/PE - [id number] of 7 : pt was on coumadin during last admission, and appears he was transitioned to eliquis 2.5 BID as outpatient in mid September. - Metoprolol 25 mg BID (taking after dialysis sessions), cont rosuvastatin 10 mg , also using midodrine 5 mg prior to HD sessions- can increase this to 10 mg prior to sessions as pt has been using total of 10 mg as outpatient - see hpi. - Torsemide 100 mg BID in morning and at noon - does not sound like the patient is responding to diuretic therapy at this point, and that instead fluid balance will need to be through HD instead. Can dc flomax. Appreciate nephrology input regarding volume status. Discussion held with Dr. Salinas, nephrology, via tiger text and he would like the pt to be continued on torsemide at this time. R posterior thigh wound - S/p I & D on Saturday 10/28 at wound clinic in [place], unknown culture results. Suture in place. Was scheduled for removal next week. - Pt was given oxycodone, may continue this for pain control - monitor. 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 This is the 3rd admission this year. Patient reports that he has been having fluid accumulation in his lower extremities for approximately 1 week. He also complains that abdomen is also distended, feels slightly more short of breath with exertional activities despite being on 4 L O2 at all times. He denies any chest pain/palpitation/flutter. Patient states that his dry weight is 92 kg, today weighing 95.7 kg on admission. This morning he presented to outpatient dialysis and completed 1.5 hours, normally requires 4-hour session. He has been using midodrine prior to session for prevention of hypotension, and for the past few weeks he has also been taking a second dose of midodrine in the middle of dialysis. Today he did not take midodrine in the middle of the dialysis session and went hypotensive with BP of 60s/30 per his report. Without intervention his BP is back up to 120s/80s at this time. He is previously noncompliant with CPAP. Patient denies worsening wheezing however this is heard on exam and family are present at bedside states that they think that he is worse in the past week as well. He denies any productive cough or hemoptysis. Pt has been using spiriva inh at home. Patient notes having no bowel movement x 2 days, and is requesting something for such. Previously: Admitted 05/14-05/17/23 for acute on chronic respiratory failure and hemoptysis found likely secondary to pneumonia with possible aspiration component. Treated with IV Unasyn before being transitioned to Augmentin at discharge. Admitted 08/25-08/28. At that time pt reports that the hemoptysis was improving. Pt was treated for COPD exacerbation with antibiotics, steroids and higher flow of O2 due to acute on chronic respiratory failure due to exacerbation of COPD. He also developed new onset Afib RVR during his most recent admission. Echocar diogram showed normal ejection fraction during that time. He was tolerating his diuresis. He his beta-harish was changed from Coreg to metoprolol for rate and rhythm control. Allergies Allergy/AdvReac Type Severity Reaction Status Date / Time lorazepam AdvReac Intermediate Hallucinati Verified 09/16/23 08:39 ng/Confusio n Home Medications Medication Instructions Recorded Confirmed Type venlafaxine 37.5 mg 37.5 mg PO DAILY 02/01/22 10/31/23 History capsule,extended release 24 hr (Effexor XR) tamsulosin 0.4 mg capsule (Flomax) 0.4 mg PO QAM 06/19/22 10/31/23 History hydroxyzine HCl 50 mg tablet 50 mg PO HS PRN Insomnia 05/14/23 10/31/23 History nitroglycerin 0.4 mg sublingual 0.4 mg sublingual UD PRN Chest Pain 05/14/23 10/31/23 History tablet (Nitrostat) rosuvastatin 10 mg tablet 10 mg PO QAM 05/14/23 10/31/23 History buspirone 5 mg tablet 5 mg PO AMHS 08/26/23 10/31/23 History glycopyrrolate 9 mcg-formoterol 1 puff inhalation BID 08/26/23 10/31/23 History 4.8 mcg HFA aerosol inhaler (Bevespi Aerosphere) midodrine 5 mg tablet 5 mg PO 3XWK 08/26/23 10/31/23 History torsemide 20 mg tablet 100 mg PO BID 08/26/23 10/31/23 History vitamin B complex-vitamin C-folic 1 tab PO 3XWK 08/26/23 10/31/23 History acid 0.8 mg tablet (Izzy-Vianney) apixaban 2.5 mg tablet (Eliquis) 2.5 mg PO BID #60 tabs 08/29/23 10/31/23 Rx metoprolol tartrate 25 mg tablet 25 mg PO BID #60 tabs 08/29/23 10/31/23 Rx ipratropium 0.5 mg-albuterol 3 mg 3 ml NEB QIDR PRN Other 10/31/23 10/31/23 History (2.5 mg base)/3 mL nebulization soln metolazone 5 mg tablet 5 mg PO UD 10/31/23 10/31/23 History oxycodone 5 mg tablet 5 mg PO DIRECTED PRN Pain 10/31/23 10/31/23 History Past Med/Surg History Problem List (Updated 10/31/23 @ 15:45 by Gonzales Flor DO) Hypercarbia (Acute) Acute hyponatremia (Acute) Edema (Acute) Shortness of breath (Acute) New onset atrial fibrillation Acute on chronic respiratory failure with hypoxia and hypercapnia Atrial fibrillation with RVR (Acute) Hypersomnolent Restrictive lung disease Chronic pulmonary aspiration Volume overload (Acute) End-stage renal disease (ESRD) (Acute) COPD with exacerbation (Acute) Dyslipidemia BPH (benign prostatic hyperplasia) Coronary artery disease S/p stent 1998 HTN (hypertension) Chronic hypoxemic respiratory failure Anemia of chronic renal failure Hgb 8-9's per record review COPD (chronic obstructive pulmonary disease) Medical History Multifocal pneumonia History of DVT (deep vein thrombosis) Left renal mass Pneumonia due to COVID-19 virus Urinary frequency Hx of blood clots "IN MY LEGS AND 1 IN MY LUNGS A LONG TIME AGO">WAS ON BLOOD THINNERS, CAUSED BY PHLEBITIS History of COVID-19 02/02/22>STILL HAS FATIGUE Adjustment disorder with mixed disturbance of emotions and conduct History of basal cell carcinoma Carotid stenosis, right 50-69% stenosis to right ICA; <50% stenosis to left ICA per 06/22/21 carotid duplex History of stroke 2017 OR 2018 >NO RESIDUAL History of IA (myocardial infarction) 1998 MOLLY and COPD overlap syndrome WEARS 4L O2 AT HS Prediabetes PT DENIES Renal osteodystrophy Papillary renal cell carcinoma WITH MALIGNANCY>NO TREATMENT YET (CURRENT DX) Surgical History History of anesthesia reaction SLOW TO WAKE UP History of arthroscopy LEFT KNEE History of colonoscopy History of tooth extraction History of tonsillectomy History of cataract surgery RT/LEFT History of cholecystectomy History of appendectomy History of heart artery stent 1998>? # STENTS PLACED IN [facility] (FOLLWED BY DR. 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 Beliefs That Will Affect Care: None Current Living Situation: Spouse Feels Safe at Home: Yes Assistive Devices: Cane, Denture - Upper and Oxygen - Continuous Review of Systems Review of Systems: Constitutional: No fever, sweats or chills Eyes: No diplopia, no worsening or blurred vision ENT: normal hearing, no trouble swallowing Respiratory: No cough, sputum, dyspnea at rest, + dyspnea on exertion, on 4L via NC O2 chronically Cardiovascular: No chest pain, tightness or palpitations Abdomen: No pain, nausea, vomiting, diarrhea, + distention, + constipation Musculoskeletal: No joint pain, calf pain, + significant lower extremity swelling bilaterally, left worse than the right Neurologic: No weakness, numbness/tingling, or balance problems Psychiatric: No anxiety or depression on medication Skin: No rash or itch Physical Exam Physical Exam: General: awake, alert, no apparent distress, white male, elderly Head: Normocephalic, atraumatic ENT: PERRL, EOMI, no pharyngeal exudate, mucous membranes moist Chest: On 4L via NC, diffuse wheezing heard throughout, no crackles or rhonchi Cardiac: Regular rate and rhythm, no murmur, no JVD, normal peripheral pulses, good capillary refill Abdominal: NABS x 4 quadrants, soft, + distended, no fluid wave, nontender to palpation, no rebound or guarding Extremities: Normal inspection upper extremities, +3 pitting edema in BLE, left > right, trace erythema due to edema, calfs nontender to palpation. R posterior thigh incision site with suture in place, + surrounding edema, no purulence from wound. Psych: Normal mood and affect Neuro: AAO x 3, strength intact bilaterally and rated 5/5, no motor deficits, speech is clear, no peripheral sensory deficits Results & Data Results & Data Vital Signs (Past 12 Hours) Vital Signs Temp Pulse Pulse Resp BP BP Pulse Ox 10/31/23 12:32 84 24 136/63 97 10/31/23 12:25 81 24 95 10/31/23 12:13 81 10/31/23 11:48 36.3 C L 86 16 113/63 96 O2 Del Method O2 Flow Rate 10/31/23 12:32 Nasal Cannula 4 10/31/23 12:25 Nasal Cannula 4 10/31/23 12:13 10/31/23 11:48 Room Air Laboratory Results 10/31/23 10/31/23 10/31/23 12:27 12:20 12:17 WBC 9.50 RBC 3.17 L Hgb 8.8 L POC Hgb 9.2 L Hct 28.0 L POC Hct 27 L MCV 88.3 MCH 27.8 MCHC 31.4 L RDW Std Deviation 53.1 H RDW Coeff of John 16.5 H Plt Count 131 MPV 10.2 Immature Gran % (Auto) 0.5 Neut % (Auto) 80.3 Lymph % (Auto) 5.5 [place] % (Auto) 12.4 Eos % (Auto) 1.1 Baso % (Auto) 0.2 Neut # (Auto) 7.63 H Lymph # (Auto) 0.52 L [place] # (Auto) 1.18 H Eos # (Auto) 0.10 Baso # (Auto) 0.02 Immature Gran # (Auto) 0.05 VBG pH 7.36 VBG pCO2 65 H VBG pO2 26 VBG HCO3 37 VBG O2 Saturation < 60.0 VBG Base Excess 8.8 POC Sodium 133 L Sodium 137 POC Potassium 4.5 Potassium 4.2 POC Chloride 93 L Chloride 93 L Carbon Dioxide 33 H POC Total CO2 31 Anion Gap 11 POC Anion Gap 15.0 L POC BUN 53 H BUN 40 H Creatinine 4.65 H* POC Creatinine 5.5 H* Est Cr Clr Drug Dosing 12.3 Est GFR ( Amer) 12.5 Est GFR (Non-Af Amer) 10.8 BUN/Creatinine Ratio 8.6 L Glucose 158 H POC Glucose (other) 158 H Calcium 8.5 L POC Ioniz Calcium Nan 0.91 L Total Bilirubin 0.6 AST 20 ALT 16 Alkaline Phosphatase 54 Troponin I High Sens 18.1 B-Natriuretic Peptide 114 H Total Protein 7.2 Albumin 4.2 Globulin 3.0 Albumin/Globulin Ratio 1.4 Lipase 54 Diagnostic Findings Chest X-Ray 10/31/23 12:15 XR chest 1V portable CLINICAL HISTORY: Chest pain, nonspecific COMPARISON STUDY: Chest CT July 02, 2023. Chest radiograph August 26, 2023. FINDINGS: Moderate elevation of the right hemidiaphragm is unchanged. There is no pneumothorax or pleural effusion. There is no consolidation to suggest pneumonia. Cardiomegaly is unchanged. Mediastinal contours are stable. IMPRESSION: No acute cardiopulmonary findings. ACT 112: Negative or not required by law. Electronically signed by: Jhonatan Restrepo M.D. 10/31/2023 12:58 PM Code Status & VTE Plan Code Status DNR/DNI - discussed with the patient at bedside with family present Supervising Physician Co-Signing Physician Notes Patient was seen and examined independently at bedside. Chart reviewed. Case discussed with Deborah CUENCA and agree with the documentation above. In summary, this is a 83 year old male with ESRD on HD, hypotension during HD and on midodrine, COPD with chronic hypoxic respiratory failure on 4 L oxygen, H/o DVT and PAF on eliquis who presented to the ED from HD center for hypotension during HD today and could not complete HD session. States worsening volume overload and worsening shortness of breath. Had received only 1.5 hrs of HD today. Does not make urine but still on torsemide 100 bid along with metolazone, which is likely counterproductive and consider discontinuing- Will defer to nephrology. Sent message to nephrology for possible HD today as well meds adjustment. No fever, chills, CP, cough/phlegm. Family at bedside including her daughter Damaris who is a fishing tool technician oil well. Patient and family all attribute the symptoms to the volume. Rest as per the note above. (3) COPD (chronic obstructive pulmonary disease) COPD type: chronic bronchitis Chronic bronchitis type: simple Qualified Code(s): J41.0 - Simple chronic bronchitis (7) HTN (hypertension) Hypertension type: unspecified Qualified Code(s): I10 - Essential (primary) hypertension
[2023-10-31] MEDS ORDERED: ACETAMINOPHEN 325 MG TAB PO PRN (16:20)
[2023-10-31] MEDS ORDERED: bisacodyL 10 MG SUPP PR PRN (16:20)
[2023-10-31] MEDS: ALBUT/IPRATROP 3MG/0.5MG NEB 3 ML VIAL NEB SCH (16:40)
[2023-10-31] MEDS: bisacodyL 5 MG TABEC PO SCH (17:07)
[2023-10-31] MEDS: TORSEMIDE 100 MG TAB PO SCH (17:07)
--- OUTSIDE RECORDS SUMMARY | 2023-10-31 19:34 | External Medical Summary | Summary of Care ---
Author Name Unknown Organization [facility] Address [address] [place] [address] Phone [phone] Care Team Providers Care Employee Relations Administrator Name Role Phone Jody Arora MD Primary Care Provide r Reason for Visit * Reason Onset Date Comments Medication Question 10/14/2023 Encounter Details Date Type Department Care Team (Late st Contact Info) Description 10/14/2023 Telephone [facility]phrology, [facility] [address] [place] [address] Services, Scheduling [address] [place] [address] Medication Question Allergies No known active allergiesdocumented as of this encounter (statuses as of 10/16/2023) Medications Medication Sig Dispensed Refills Start Date [...] a day. 71 g 2 01/24/2023 Active Tamsulosin HCl 0.4 MG Oral Capsule (Flomax)Indications: BPH without obstruction/lower urinary tract symptoms Take 1 capsule by mouth in the morning 90 Capsule 1 02/28/2023 Active oxygen IN GAS Use 4 L/min(Oxygen) as directed. Uses "in the evening" Active Fluticasone-Salmeter ol 250-50 MCG/ACT Inhalation Aerosol Powder Breath Activated (Advair Diskus)Indications:C OPD, group C, by GOLD 2017 classification ([facility]) INHALE 1 DOSE BY MOUTH IN THE MORNING AND 1 AT BEDTIME 60 Each 05/28/2023 Active Additional Information Patient not taking.Reported on 10/10/2023 Ventolin HFA 108 (90 Base) MCG/ACT Inhalation Aerosol SolutionIndications: COPD, group D, by GOLD 2017 classification ([facility]) Inhale 2 Puffs by mouth every 4 hours as needed for Wheezing. 18 g 2 05/28/2023 Active Torsemide 20 MG Oral Tablet (Demadex)Indications :ESRD needing dialysis ([facility]) Take 4 Tablets by mouth 2 times a day in the morning and at noon. 120 Tablet 5 07/05/2023 Active Additional Information Patient taking differently: 100 mgOral BID (0800, NOON),Takes one tab in am and one tab in pm, Reported on 10/10/2023 Renal Vitamin 0.8 MG Oral Tablet Take [...] meals. Take 1 with snack. 08/15/2023 Active LORazepam 0.5 MG Oral Tablet (Ativan)Indications: Anxiety 1 tablet 15-20 minutes before dialysis sessions 30 Tablet 09/03/2023 Active Metoprolol Tartrate 25 MG Oral Tablet (Lopressor) Take 1 Tablet by mouth in the morning and 1 Tablet before bedtime. 60 Tablet 5 09/17/2023 Active Eliquis 2.5 MG Oral Tablet Take 1 Tablet by mouth in the morning and 1 Tablet before bedtime. 60 Tablet 5 10/03/2023 Active Rosuvastatin Calcium 10 MG Oral Tablet (Crestor) TAKE 1 TABLET BY MOUTH IN THE MORNING 90 Tablet 1 10/14/2023 Active Hospital, Clinic, or Other Facility Administered Medication Ordered Dose Route Frequency Start Date End Date Status Albuterol Sulfate (Proventil) (5 MG/ML) 0.5% *conc* inhalation solution 2.5 mgIndications:Chronic hypoxemic respiratory failure (HCC),COPD, group C, by GOLD 2017 classification (HCC),[place]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) 2.5 mg NEBULIZER PRN 04/24/2023 04/23/2024 Active Albuterol Sulfate (Proventil) (2.5 MG/3ML) 0.083% inhalation solution 2.5 mgIndications:Chronic hypoxemic respiratory failure (HCC),COPD, group C, by GOLD 2017 classification (HCC),[place]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) 2.5 mg NEBULIZER PRN 04/24/2023 04/23/2024 Active documented as of this encounter (statuses as of 10/16/2023) Active Problems Problem Noted Date Diagnosed Date COPD, group D, by GOLD 2017 classification 04/29 Overview: Per COPD GOLD 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 States he was advised he was not a surgical candidate. Carotid stenosis, right 07/11/2017 History of stroke 07/11/2017 Overview: TIA vs lacunar stroke diagnosed on head CT in [place] Apr 2017. Follow up MRI [facility] no infarct. Anxiety 07/11/2017 HTN, goal below 140/90 08/02/2015 Coronary artery disease Dyslipidemia, goal LDL below 100 documented as of this encounter (statuses as of 10/16/2023) Resolved Problems Problem Noted Date Diagnosed Date [...] as of this encounter (statuses as of 10/16/2023) Immunizations Name Administration Dates Next Due COVID-19 [...] money to get more. Never true 05/20/2023 Childcare Answer Date Recorded Do you feel overwhelmed with taking care of a child, family member or friend? No 05/20/2023 Does your family need help f inding childcare? (Household - for ages 0-17 years) Not on file 05/20/2023 Clothing Answer Date Recorded Have you been unable to get clothing when it was really needed? No 05/20/2023 Is your family able to get c lothes or diapers when needed? (Household - for ages 0-17 years) Not on file 05/20/2023 Personal Safety Answer Date Recorded Do you feel unsafe or have concerns for your saf ety? No 05/20/2023 Do you have concerns for you r family's safety? (Household - for ages 0-17 years) Not on file 05/20/2023 Utilities Answer Date Recorded Do you have trouble paying y our heating, water, or electric bill? No 05/20/2023 Is your family able to pay t he heat, water, or electric bill? (Household - for ages 0-17 years) Not on file 05/20/2023 Does your family have access to good internet? (Household - for ages 0-17 years) Not on file 05/20/2023 Employment Status Answer Date Recorded Are you unemployed or without regular income? No 05/20/2023 Does the household have a re lar source of income? (Household - for ages 0-17 years) Not on file 05/20/2023 Social Connections Answer Date Recorded How often do you feel lonely or isolated from th ose around you? Never 05/20/2023 Financial Resource Strain Answer Date R ecorded Do you have any trouble payi ng for your medications, or do you think you might in the future? No 05/20/2023 Does your family have troubl e paying for medicine? (Household - for ages 0-17 years) Not on file 05/20/2023 Transportation Needs Answer Date Record ed READ ONLY Do you have troubl e getting a ride to medical visits or work? Never True 05/20/2023 Does your family have a hard time getting a ride to doctors visits? (Household - for ages 0-17 years) Not on file 05/20/2023 Has lack of transportation k ept you from medical appointments, meetings, work, or from getting things needed for daily living? Check all that apply. (Adult - for ages 18 years and over) Not on file 05/20/2023 Do you (or your family) have trouble finding or paying for a ride (transportation)? (Household - for ages 0-17 years) Not on file 05/20/2023 Housing Stability Answer Date Recorded Do you currently live in a s helter or have no steady place to sleep at night? No 05/20/2023 READ ONLY Do you think you a re at risk of becoming homeless? No 05/20/2023 Does your family worry about paying for your home or becoming homeless? (Household - for ages 0-17 years) Not on file 0 05/20/2023 Are you homeless or worried that you might be in the future? (Adult - for ages 18 years and over) Not on file Are you (or your family) maurizio eless or worried that you might be in the future? (Household - for ages 0-17 years) Not on file Food Insecurity Answer Date Recorded Do you need food for this week? No 05/20/2023 Are you able to get enough f ood for your family? (Household - for ages 0-17 years) Not on file 05/20/2023 Does your family need food t his week? (Household - for ages 0-17 years) Not on file 05/20/2023 Do you always have enough fo od for your family? (Household - for ages 0-17 years) Not on file 05/20/2023 Sex and Gender Information Value Date Recorded Sex Assigned at Not on file Gender Identity Not on file Sexual Orientation Not on file Job Start Date Occupation Industry Not on file Not on file Not on file documented as of this encounter Miscellaneous Notes * Telephone Encounter - Susan Norton LPN - 10/16/2023 2:15 PM EDT Patient calling. He has dialysis tomorrow. He wants to know what he should do about feeling so tired and having low blood pressure. Should he go when he is this exhausted? * Telephone Encounter - Susan Norton LPN - 10/16/2023 12:24 PM EDT Patient is calling. Undergoing dialysis. Blood pressure goes way down and he feels extremely weak. Last night it was 87/54. Said he is too tired. Wants something done about this. Can't get hold of nephrology and Dr. Nunez didn't return his call either. * Telephone Encounter - Susan Norton LPN - 10/15/2023 3:54 PM EDT Patient is calling. He has not been able to call and get through to nephrology. When he is taking dialysis, his blood pressure is dropping to 80/50. Since he can't get through, he would like a call back from Dr. Arora * Telephone Encounter - Nancy Seals LPN - 10/15/2023 8:31 AM EDT MyG sent Pt should contact dialysis nurse * Telephone Encounter - Lauren Fritz OSA - 10/14/2023 4:05 PM EDT Pt calling asking to speak to someone in Dr. Patle's office concerning medication. Thank you [facility] documented in this encounter Plan of Treatment Upcoming Encounters Date Type Department Care Team (Late st Contact Info) Description 02/10/2024 1:00 PM EST Imaging Radiology [facility] [address] [place] [address] 02/25/2024 4:00 PM EST Office Visit Urology, [address] [place] [address] Cameron Romeo MD [address] [place] [address] 02/26/2024 1:40 PM EST Office Visit [address] [place] [phone] Jody Arora MD [address] [place] [address] [place] [id number] 05/11/2024 10:30 AM EST Office Visit Cardiology, [facility] [address] [place] [address] Augustin Mathis DO [address] [place] [address] Health Maintenance Due Date Last Done Comments Alpha-1 Antitrypsin 1958 *COPD SEVERITY VERIFIED BY PFT 07/16/2020 COVID-19 Vaccine ( season) 2023 01/03/2023, 01/10/2021, 05/24/2020, Additional history exists Influenza Vaccine (FLU shot) (#1) 2023 01/23/2023, 12/07/2021, 12/05/2020, Additional history exists GFR 02/27/2024 08/28/2023, 05/0 09/2023, 07/10/2023, Additional history exists Depression Screening 05/19/2024 05/20/2023 Albumin/Creatinine Ratio 07/09/20242 024, 08/08/2022, 12/07/2021, Additional history exists PTH 07/09/2024 07/10/2023, 11/16, 07/12/2022, Additional history exists Phosphate 07/09/2024 07/10/2023, 03/18, 03/19/2023, Additional history exists Nephrology Referral 07/14/2024 07/15/2023 Hgb 08/27/2024 08/28/2023, 04/0 06/2023, 02/25/2023, Additional history exists O2 ASSESSMENT COMPLETED IN PAST YEAR FOR COPD 10/09/2024 10/10/2023 DTaP,Tdap,and Td Vaccines (2 - Td or Tdap) 10/24/2028 10/24/2018 Pneumococcal Vaccine: 65+ Years Completed 01/16/2018, 01/16/2018, 02/09/2015 Zoster Vaccines Completed 12/11/2019, 10/09/2019 Hepatitis B Vaccine Completed 09/24/2023, 01/23/2023, 01/08/2018 HPV (Gardasil) Vaccine Aged Out No lo nger eligible based on patient's age to complete this topic MENINGOCOCCAL (MENACTRA/MENVEO) Aged Out No longer eligible based on patient's age to complete this topic documented as of this encounter Medical Devices Not on filedocumented as of this encounter Care Teams Employee Relations Administrator Relationship Specialty Start Date End Date Jody Arora MD [address] [place] [address] [place] [address] PCP - General Family Medicine 11/21/21 documented as of this encounter
--- OUTSIDE RECORDS SUMMARY | 2023-10-31 19:34 | External Medical Summary | Summary of Care ---
Author Name Unknown Organization [facility] Address [address] [place] [address] Phone [phone] Care Team Providers Care Neurology Specialist Name Role Phone London Perales MD Primary Care Provide r Reason for Visit * Reason Onset Date Comments Medication Question 10/14/2023 Encounter Details Date Type Department Care Team (Late st Contact Info) Description 10/14/2023 Telephone Nephrology, [facility] [address] [place] [address] Services, Scheduling [address] [place] [address] Medication Question Allergies No known active allergiesdocumented as of this encounter (statuses as of 10/16/2023) Medications Medication Sig Dispensed Refills Start Date End Date Status nitroglycerin (NITROSTAT) 0.4 MG SUBL 1 Tablet. 08/19/2018 Active Melatonin 10 MG Oral Capsule Take 1 Capsule by mouth at bedtime. Active Ipratropium-Albuter ol 0.5-2.5 (3) MG/3ML Inhalation [...] as directed. Uses "in the evening" Active Fluticasone-Salmete rol 250-50 MCG/ACT Inhalation Aerosol Powder Breath Activated (Advair Diskus)Indications: COPD, group C, by GOLD 2017 classification ([facility]) INHALE 1 DOSE BY MOUTH IN THE MORNING AND 1 AT BEDTIME 60 Each 05/28/2023 Active Additional Information Patient not taking.Reported on 10/10/2023 Ventolin HFA 108 (90 Base) MCG/ACT Inhalation Aerosol SolutionIndications :COPD, group D, by GOLD 2017 classification ([facility]) Inhale 2 Puffs by mouth every 4 hours as needed for Wheezing. 18 g 2 05/28/2023 Active Torsemide 20 MG Oral Tablet (Demadex)Indication s:ESRD needing dialysis ([facility]) Take 4 Tablets by mouth 2 [...] meals. Take 1 with snack. 08/15/2023 Active Metoprolol Tartrate 25 MG Oral Tablet [...] THE MORNING 90 Tablet 1 10/14/2023 Active LORazepam 0.5 MG Oral Tablet (Ativan)Indications :Anxiety 1 tablet 15-20 minutes before dialysis sessions 30 Tablet 10/16/2023 Active LORazepam 0.5 MG Oral Tablet (Ativan)Indications :Anxiety 1 tablet 15-20 minutes before dialysis sessions 30 Tablet 09/03/2023 Discontinu ed(Refill) Hospital, Clinic, or Other Facility Administered Medication Ordered Dose Route Frequency Start Date End Date Status Albuterol Sulfate (Proventil) (5 MG/ML) 0.5% *conc* inhalation solution 2.5 mgIndications:Chronic hypoxemic respiratory failure (HCC),COPD, group C, by GOLD 2017 classification (HCC),[place]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) 2.5 mg NEBULIZER PRN 04/24/2023 04/23/2024 Active Albuterol Sulfate (Proventil) (2.5 MG/3ML) 0.083% inhalation solution 2.5 mgIndications:Chronic hypoxemic respiratory failure (HCC),COPD, group C, by GOLD 2017 classification (HCC),[place]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) 2.5 mg NEBULIZER PRN 04/24/2023 04/23/2024 Active documented as of this encounter (statuses as of 10/16/2023) Active Problems Problem Noted Date Diagnosed Date COPD, group D, by GOLD 2017 classification 04/29 Overview: Per COPD GOLD 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 States he was advised he was not a surgical candidate. Carotid stenosis, right 07/11/2017 History of stroke 07/11/2017 Overview: TIA vs lacunar stroke diagnosed on head CT in [place] Apr 2017. Follow up MRI [facility] [...] stenosis 01/15/2018 12/07/2021 Overview: Echo 12/2017. Dr Zaragzoa. Anemia of chronic renal fail ure, stage [...] No 05/20/2023 Does the household have a [facility] source of income? (Household - for ages [...] Addendum Note - London Perales MD - 10/16/2023 5:29 PM EDTAddended by: LONDON PERALES on: 10/16/2023 05:29 PM Modules accepted: Orders * Telephone Encounter - London Perales MD - 10/16/2023 5:28 PM EDT Spoke to pt and daughter He is going to take the midodrine closer to HD Metoprolol after dialysis Ativan refill sent * Telephone Encounter - Gabby Sosa RN - 10/16/2023 2:52 PM EDT TE with pt. HE is voicing concerns that he is so tired after his dialysis treatments. HE feels thatthey are not doing him any good- He states that his legs and feet remain swollen and his blood pressure is low. He reports that he does take Midodrine prior to treatment. He is aware that Dr Jones address his concerns on her next dialysis rounds. * Telephone Encounter - Susan Norton LPN [...] would like a call back from Dr. Perales * Telephone Encounter - Nancy Seals LPN - 10/15/2023 8:31 AM EDT MyG sent Pt should contact dialysis nurse * Telephone Encounter - Lauren Fritz OSA - 10/14/2023 4:05 PM EDT Pt calling asking to speak to someone in Dr. Patel's office concerning medication. Thank you [facility] documented in this encounter Plan of Treatment Upcoming Encounters Date Type Department Care Team (Late st Contact Info) Description 02/10/2024 1:00 PM EST [address] [address] 02/25/2024 4:00 PM EST Office Visit Urology, [address] [place] [address] Cameron Romeo MD [address] [place] [address] 02/26/2024 1:40 PM EST Office Visit Family Medicine [address] [place] [phone] London Perales MD [address] [place] [address] [place] [address] 05/11/2024 10:30 AM EST Office Visit Cardiology, [facility] [address] [place] [address] Augustin Mathis, [address] [place] [address] Health Maintenance Due Date Last Done Comments [...] as of this encounter Visit Diagnoses Diagnosis Anxiety Anxiety state, unspecified documented in this encounter Care Teams Neurology Specialist Relationship Specialty Start Date End Date London Perales MD [address] [place] [address] [place] [id number] PCP - General Family Medicine 11/21/21 documented as of this encounter
--- OUTSIDE RECORDS SUMMARY | 2023-10-31 19:34 | External Medical Summary | Summary of Care ---
Author Name Unknown Organization [facility] Address [address] [place] [address] Phone [phone] Care Team Providers Care Hammer Adjuster Name Role Phone Jody Arora MD Primary Care Provide r Reason for Visit * Reason Onset Date Comments Medication Question 10/14/2023 Encounter Details Date Type Department Care Team (Late st Contact Info) Description 10/14/2023 Telephone Nephrology, [facility] [address] [place] [address] Services, Scheduling [address] [place] [address] Medication Question Allergies No known active allergiesdocumented [...] C, by GOLD 2017 classification ([facility]) INHALE 1 DOSE BY MOUTH IN THE MORNING AND 1 AT BEDTIME 60 Each 05/28/2023 Active Additional Information Patient not taking.Reported on 10/10/2023 Ventolin HFA 108 (90 Base) MCG/ACT Inhalation Aerosol SolutionIndications: COPD, group D, by GOLD 2017 classification ([facility]) Inhale 2 Puffs by mouth every 4 hours as needed for Wheezing. 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 States he was advised he was not a surgical candidate. Carotid stenosis, right 07/11/2017 History of stroke 07/11/2017 Overview: TIA vs lacunar stroke diagnosed on head CT in [place] Apr 2017. Follow up [facility] [...] Description 02/10/2024 1:00 PM EST [facility] [address] [facility] [place] [address] 02/25/2024 4:00 PM EST Office Visit Urology, [address] [place] [address] Cameron Romeo MD [address] [place] [address] 02/26/2024 1:40 PM EST Office Visit Family Medicine [address] [place] [phone] Jody Arora MD [address] [place] [address] [place] [address] 05/11/2024 10:30 AM EST Office Visit Cardiology, [facility] [address] [facility] [place] [address] Augustin Mathis DO [address] [place] [address] Health Maintenance Due Date Last Done Comments Alpha-1 Antitrypsin 1958 *COPD SEVERITY VERIFIED BY PFT 07/16/2020 COVID-19 Vaccine ( season) 2023 01/03/2023, 01/10/2021, 05/24/2020, Additional history exists Influenza Vaccine (FLU shot) (#1) 2023 01/23/2023, 12/07/2021, 12/05/2020, Additional history exists GFR 02/27/2024 08/28/2023, 050 09/2023, 07/10/2023, Additional history exists Depression Screening 05/19/2024 05/20/2023 Albumin/Creatinine Ratio 07/09/2024 024, 08/08/2022, 12/07/2021, Additional [...] filedocumented as of this encounter Care Teams Hammer Adjuster Relationship Specialty Start Date End Date Jody Arora MD [address] [place] [address] [place] [address] PCP - General Family Medicine 11/21/21 documented as of this encounter
--- OUTSIDE RECORDS SUMMARY | 2023-10-31 19:36 | External Medical Summary | Summary of Care ---
Author Name Unknown Organization [facility] Address [address] [place] [address] Phone [phone] Care Team Providers Care Sugarcane Research Technician Name Role Phone Jody Arora MD Primary Care Provide r Reason for Visit * Reason Onset Date Comments Medication Question 10/14/2023 Encounter Details Date Type Department Care Team (Late st Contact Info) Description 10/14/2023 Telephone Nephrology, [facility] [address] [place] [address] Services, Scheduling [address] [place] [address] Medication Question Allergies No known active allergiesdocumented as of this encounter (statuses as of 10/15/2023) Medications Medication Sig Dispensed Refills Start Date [...] GOLD 2017 classification ([facility]) INHALE 1 DOSE BY MOUTH IN THE MORNING AND 1 AT BEDTIME 60 Each 05/28/2023 Active Additional Information Patient not taking.Reported on 10/10/2023 Ventolin HFA 108 (90 Base) MCG/ACT Inhalation Aerosol SolutionIndications: COPD, group D, by GOLD 2017 classification ([facility]) Inhale 2 Puffs by mouth every 4 hours as needed for Wheezing. 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 States he was advised he was not a surgical candidate. Carotid stenosis, right 07/11/2017 History of stroke 07/11/2017 Overview: TIA vs lacunar stroke diagnosed on head CT in [place] Apr 2017. Follow up MRI [facility] no infarct. Anxiety 07/11/2017 HTN, goal below 140/90 08/02/2015 Coronary artery disease Dyslipidemia, goal LDL below 100 documented as of this encounter (statuses as of 10/15/2023) Resolved Problems Problem Noted Date Diagnosed Date [...] as of this encounter (statuses as of 10/15/2023) Immunizations Name Administration Dates Next Due COVID-19 [...] Description 02/10/2024 1:00 PM EST Imaging Radiology [facility] 1st Floor, [place] [address] [facility] [place] [address] 02/25/2024 4:00 PM EST Office Visit Urology, [facility] [address] [facility] [place] [address] Cameron Romeo MD [address] [place] [address] 02/26/2024 1:40 PM EST Office Visit Family Medicine [address] [place] [address] Jody Arora MD [address] [place] [address] [place] [address] 05/11/2024 10:30 AM EST Office Visit Cardiology, [facility] [address] [facility] [place] [address] Augustin Mathis, [address] [place] [address] Health Maintenance Due Date Last Done Comments [...] Nephrology Referral 07/14/2024 07/15/2023 Hgb 08/27/2024 08/28/2023, 06/2023, 02/25/2023, Additional history exists O2 ASSESSMENT [...] filedocumented as of this encounter Care Teams Sugarcane Research Technician Relationship Specialty Start Date End Date Jody Arora MD [address] [place] [address] [place] [address] PCP - General Family Medicine 11/21/21 documented as of this encounter
--- OUTSIDE RECORDS SUMMARY | 2023-10-31 19:36 | External Medical Summary | Summary of Care ---
Author Name Unknown Organization [facility] Address [address] [place] [address] Phone [phone] Care Team Providers Care Rn Interventional Name Role Phone Jody Arora MD Primary Care Provide r Reason for Visit * Reason Comments Follow Up * Evaluate & Treat - Unlimited Visits (Within 30 days (routine)) - Authorized Specialty Diagnoses / Procedures Referred By Contac t Referred To Contact Cardiovascular Medicine / Cardiology Diagnoses Atrial fibrillation, unspecified type (HCC) Jody Arora MD [address] [place] [address] [place] [id number] Referral ID Status Reason Start Date Expiration Date Visits Requested Visits Authorized [id number] Authorized Specialty Services Required 09/03/[phone] Encounter Details Date Type Department Care Team (Late st Contact Info) Description 10/10/2023 11:00 AM EDT Office Visit Cardiology, [facility] [address] [place] [address] Augustin Mathis, [address] [place] [address] Paroxysmal atrial fibrillation (HCC)*; Bifascicular bundle branch block; Coronary artery disease involving deering coronary artery of deering heart without angina pectoris; History of stroke Allergies No known active allergiesdocumented as of this encounter (statuses as of 10/10/2023) Medications Medication Sig Dispensed Refills Start Date [...] the morning 90 Capsule 1 02/28/2023 Active Rosuvastatin Calcium 10 MG Oral Tablet [...] 08/15/2023 Active LORazepam 0.5 MG Oral Tablet (Ativan)Indications [...] before bedtime. 60 Tablet 5 10/03/2023 Active NIFEdipine ER 60 MG Oral Tablet Extended Release 24 Hour (Adalat CC) TAKE 1 TABLET BY MOUTH TWICE DAILY (MORNING AND BEFORE BEDTIME) 60 Tablet 11 02/01/2023 Discontinu ed(Patient preference /discontin uation) Hospital, Clinic, or Other Facility Administered Medication Ordered Dose Route Frequency Start Date End Date Status Albuterol Sulfate (Proventil) (5 MG/ML) 0.5% *conc* inhalation solution 2.5 mgIndications:Chronic hypoxemic respiratory failure (HCC),COPD, group C, by GOLD 2017 classification ([facility]),[place] miners' lung (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 Follow up MRI [facility] no infarct. Anxiety 07/11/2017 HTN, goal below 140/90 08/02/2015 Coronary artery disease Dyslipidemia, goal LDL below 100 documented as of this encounter (statuses as of 10/10/2023) Resolved Problems Problem Noted Date Diagnosed Date [...] as of this encounter (statuses as of 10/10/2023) Immunizations Name Administration Dates Next Due COVID-19 [...] 05/20/2023 Does the household have a re gular source of income? (Household - for ages [...] Sign Reading Time Taken Comments Blood Pressure 108/54 10/10/2023 11:14 AM EDT Pulse 60 10/10/2023 11:14 AM EDT Temperature - - Respiratory Rate 16 10/10/2023 11:14 AM EDT Oxygen Saturation 87% 10/10/2023 11:14 AM EDT Inhaled Oxygen Concentration - - Weight 92.1 kg (203 lb) 10/10/2023 11:14 AM EDT Height - - Body Mass Index 34.84 05/29/2023 1:38 PM EDT documented in this encounter Patient Instructions * Patient Instructions* Augustin Mathis DO - 10/10/2023 11:42 AM EDT Continue to hold nifedipine documented in this encounter Progress Notes * Augustin Mathis DO - 10/10/2023 1:04 PM EDT 10/10/2023 Cardiology Follow Up CHIEF COMPLAINT: Post hospital follow up, newly recognized atrial fibrillation, history of coronaryheart disease SUBJECTIVE: Justin Pinedo is a 83 year old year old male who presents today to establish outpatient care. Patient previously followed with Dr. Zaragoza, [facility] (Dr. Ledesma) with most recent outpatient cardiology visit in 05/2021. He had been admitted to [facility] in April, and again in August, with multifactorial respiratory insufficiency. During that most recent August admission he had been found to have atrial fibrillation and spontaneously converted to sinus rhythm. Carvedilol was discontinued in favor of metoprolol.He was discharged on Eliquis 2.5 milligrams twice daily. Prior to hospital treatment with nifedipine was also discontinued due to low blood pressure with dialysis and midodrine was initiated on dialysis days for blood pressure support. He had recently started dialysis in Jul, 2023 and receives his treatments in [place] under thecare of Dr. Rosy Patel on Tuesdays, , and Saturdays. Today the patient presents accompanied by his spouse, Gege, as well as their grandson. The grandson is looking forward to starting [employer] next month and is majoring in chemistry with hopes to go into medicine. 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 He states that overall he feels improved. He notes that he previously had significant lower extremity edema that print vented him from wearing his regular shoes but this has improved since initiatingdialysis and stopping the nifedipine. He denies any subjective palpitations, syncope or near-syncope. He typically walks with the assistance of a cane, and came in a wheelchair today due to the distance needed to travel in the clinic. History includes: 1. 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 Last cath in 2019 with patent stent and mild luminal irregularities. 2. ESRD initiated Jul, 2023. 3. Moderate LVH, bifascicular block (right bundle branch block, left anterior fascicular block) 4. Hypertension 5. Dyslipidemia 6. COPD with chronic respiratory failure, hypoxia on supplemental O24 24/7 - 4 L at baseline. 7. History of prior CVA with right sided weakness 8. history of prior DVT/PE (previously on warfarin) 9. Post strenuous cell carcinoma 10. Stroke with residual right leg weakness, right arm pain 11. Most recent available carotid duplex report 2017 with less than 50% stenosis bilaterally Extensive ROS: All systems reviewed & are unremarkable except as noted in HPI & below Cardiovascular (chest pain/palpitations/fluttering/diaphoresis/dyspnea on exertion/paroxysmally nocturnal dyspnea):Negative Review of patient's allergies indicates: No Known Allergies Current Outpatient Medications Medication Sig Dispense Refill Venlafaxine HCl ER 37.5 MG Oral Capsule Extended Release 24 Hour (Effexor XR) TAKE 1 CAPSULE BY MOUTH ONCE DAILY . DO NOT CHEW,CRUSH OR CUT 90 Capsule 3 Tamsulosin HCl 0.4 MG Oral Capsule (Flomax) Take 1 capsule by mouth in the morning 90 Capsule 1 Rosuvastatin Calcium 10 MG Oral Tablet (Crestor) Take 1 Tablet by mouth in the morning. 90 Tablet 1 oxygen IN GAS Use 4 L/min(Oxygen) as directed. Uses "in the evening" Torsemide 20 MG Oral Tablet (Demadex) Take 4 Tablets by mouth 2 times a day in the morning and at noon. (Patient taking differently: Take 5 Tablets by mouth 2 times a day in the morning and at noon. Takes one tab in am and one tab in pm) 120 Tablet 5 Midodrine HCl 5 MG Oral Tablet (Proamatine) Take 1 Tablet by mouth daily. Prior to dialysis LORazepam 0.5 MG Oral Tablet (Ativan) 1 tablet 15-20 minutes before dialysis sessions 30 Tablet 0 Metoprolol Tartrate 25 MG Oral Tablet (Lopressor) Take 1 Tablet by mouth in the morning and 1 Tablet before bedtime. 60 Tablet 5 Eliquis 2.5 MG Oral Tablet Take 1 Tablet by mouth in the morning and 1 Tablet before bedtime. 60 Tablet 5 nitroglycerin (NITROSTAT) 0.4 MG SUBL 1 Tablet. Melatonin 10 MG Oral Capsule Take 1 Capsule by mouth at bedtime. (Patient not taking: Reported on 09/13/2023) Ipratropium-Albuterol 0.5-2.5 (3) MG/3ML Inhalation Solution (Duoneb) Inhale 3 mL via nebulizer every 4 hours as needed for Wheezing. (Patient not taking: Reported on 04/24/2023) 120 mL 1 Menthol-Zinc Oxide 0.44-20.6 % External Ointment (Calmoseptine) Apply to sore skin twice a day. 71 g 2 Fluticasone-Salmeterol 250-50 MCG/ACT Inhalation Aerosol Powder Breath Activated (Advair Diskus) INHALE 1 DOSE BY MOUTH IN THE MORNING AND 1 AT BEDTIME (Patient not taking: Reported on 10/10/2023) 60 Each 0 Ventolin HFA 108 (90 Base) MCG/ACT Inhalation Aerosol Solution Inhale 2 Puffs by mouth every 4 hours as needed for Wheezing. 18 g 2 Renal Vitamin 0.8 MG Oral Tablet Take 1 Tablet by mouth daily. With midday meal post dialysis (Patient not taking: Reported on 09/13/2023) Calcium Acetate (Phos Binder) 667 MG Oral Capsule (Phoslo) Take 2 Capsules by mouth in the morning and 2 Capsules at noon and 2 Capsules in the evening. Take with meals. Take 1 with snack. (Patient not taking: Reported on 10/10/2023) Current Facility-Administered Medications Medication Dose Route Frequency Provider Last Rate Last Admin Albuterol Sulfate (Proventil) (5 MG/ML) 0.5% *conc* inhalation solution 2.5 mg 2.5 mg Nebulizer Gilbert Alexander MD Albuterol Sulfate (Proventil) (2.5 MG/3ML) 0.083% inhalation solution 2.5 mg 2.5 mg Nebulizer Gilbert Trinidad MD OBJECTIVE/PHYSICAL EXAMINATION: BP 108/54 | Pulse 60 | Resp 16 | Wt 92.1 kg (203 lb) | SpO2 87% | BMI 34.84 kg/m | BSA 2.04 m General: no acute distress and stated age Eyes: conjunctiva are pink and non-injected, sclera clear Neck: normal jugular venous pulse, no hepatojugular reflux Chest: normal shape and normal respiratory effort Lungs: clear to auscultation , no rales rhonchi or wheezing Cardiac Exam: - regular rhythm, 1/6 systolic murmur, trace bilateral lower extremity edema Abdomen: abdomen soft, non-tender, no abnormal masses and no hepatosplenomegaly Musculoskeletal: no gait disturbance, no weakness Extremities: no edema and no cyanosis Neuro: grossly normal exam Psych: appropriate affect and insight. Data: EKG performed today 10/10/2023 and interpreted independently: Sinus bradycardia 57 beats per minute, right bundle branch block, left anterior fascicular block (bifascicular block pattern) minimal voltage criteria for left ventricular hypertrophy, QRS duration 142 milliseconds, compared to previous tracings dating back to 2019, the bifascicular block pattern is chronic. Recent echocardiogram performed on 08/28/2023 while hospitalized at [facility]: Moderate concentric left ventricular hypertrophy No left ventricular wall motion abnormalities Moderate left atrial dilatation Moderate aortic valve sclerosis without stenosis LVEF in the range of 60-65% (normal). Lipid Panel Results: Results for orders placed or performed in visit on 07/23/23 LIPID PANEL WITHOUT DIRECT LDL Result Value Ref Range Triglycerides 117 <=174 mg/dL Cholesterol 136 <200 mg/dL HDL Cholesterol 48 >39 mg/dL Non-HDL Cholesterol 88 <=159 mg/dL LDL Cholesterol 65 <=129 mg/dL ASSESSMENT / PLAN: 83 year old year old male Paroxysmal atrial fibrillation (HCC) (Primary) - [id number] score of 7 - patient without subjective symptoms of palpitations. EKG revealed sinus rhythm today. Continue metoprolol tartrate 25 milligrams twice daily and Eliquis 2.5 milligrams twice daily with dose appropriately adjusted for age and history of dialysis. Bifascicular bundle branch block -chronic right bundle branch block/left anterior fascicular block pattern (bifascicular block pattern) dating back to at least 2019 per review of historical EKG tracings. Discussed natural history ofconduction system disease. We will need to be cautious with regards to beta-harish therapy. Coronary artery disease involving deering coronary artery of deering heart without angina pectoris Remote circumflex coronary intervention. Patient was currently not on aspirin and states he has notbeen on aspirin for years he recalls that he believes Dr. Wilson counseled him that he may discontinue taking it. We will continue to follow without aspirin for now. Continue metoprolol, atorvastatin. History of stroke Continue Eliquis, atorvastatin Follow Up: Return in about 6 months (around 04/11/2024) for Clinic Visit. | For: Clinic Visit Patient was seen in follow-up of the above chronic conditions with assessment and plan as described. Augustin Mathis DO Cardiology, [address] [address] This chart was completed in part utilizing [employer] Speech Voice Recognition Software. Grammatical errors, random word insertions, prounoun errors, and incomplete sentences are an occasional consequence of this system due to software limitations, ambient noise, and hardware issues. Any formal questions or concerns about the content, text, or information contained within the body of this dictation should be directly addressed to the provider for clarification. documented in this encounter Procedure Notes * Augustin Mathis DO - 10/10/2023 11:07 AM EDTAssociated Order(s): EKG COMPLETE (TRACING AND INTERP) REASON FOR STUDY: CAD; S/P stent; End stage renal disease; CO CONCLUSIONS: Sinus bradycardia Right bundle branch block Left anterior fascicular block Bifascicular block High QRS voltage may be normal variant or due to lve Abnormal ECG No previous ECGs available Ventricular Rate: 57 Atrial Rate: 57 MI Interval: 180 QRS Duration: 142 QT/QTc: 482/469 ms P-R-T Elcho: 22 : -66 : 8 degrees documented in this encounter Nursing Notes * Uziel Cool RN - 10/10/2023 11:13 AM EDT Examination Room: room 10 Name: Justin Pinedo Date of : (1940). Reason for Visit: for follow up Interim Hospitalization(s): denies Problems/Concerns: denies Chest Pain/SOB: denies [facility] Discussed: Not applicable [facility] is a way you can talk to your provider online through e-mail. Would you like to sign up? I can activate it for you? ALREADY ACTIVE Patient was instructed to not get up on the exam table until directed and assisted by their provider; patient is to remain seated in the chair/ wheelchair/ exam table for fall prevention and safety reasons. Patient is aware to have assistance to step down off exam table with personnel. Patient voiced full comprehension of instructions. documented in this encounter Plan of Treatment Upcoming Encounters Date Type Department Care Team (Late st Contact Info) Description 02/10/2024 1:00 PM EST Imaging Radiology [facility]st [facility] [address] [facility] [place] [address] 02/25/2024 4:00 PM EST Office Visit Urology, [facility] [address] [facility] [place] [address] Cameron Romeo MD [address] [place] [address] 02/26/2024 1:40 PM EST Office Visit Family Medicine [address] [place] [phone] Jody Arora MD [address] [place] [address] [place] [address] 05/11/2024 10:30 AM EST Office Visit Cardiology, [facility] [address] [place] [address] Augustin Mathis, [address] [place] [address] Health Maintenance Due Date Last Done Comments [...] Procedure Name Priority Date/Time Associated Diagnosis Comments MI ECG ROUTINE ECG W/LEAST 12 LDS W/I&R Routine 10/10/2023 11:07 AM EDT Paroxysmal atrial fibrillation (HCC) documented in this encounter Results * EKG COMPLETE (TRACING AND INTERP) (10/10/2023 11:07 AM EDT) 10/10/2023 11:0 7 AM EDT Narrative Procedure Note Augustin Mathis DO - 10/10/2023 11:07 AM EDT REASON FOR STUDY: CAD; S/P stent; End stage renal disease; CO CONCLUSIONS: Sinus bradycardia Right bundle branch block Left anterior fascicular block Bifascicular block High QRS voltage may be normal variant or due to lve Abnormal ECG No previous ECGs available Ventricular Rate: 57 Atrial Rate: 57 MI Interval: 180 QRS Duration: 142 QT/QTc: 482/469 ms P-R-T [place]: 22 : -66 : 8 degrees Augustin Mathis DO EKG [facility] documented in this encounter Visit Diagnoses Diagnosis Paroxysmal atrial fibrillation (HCC)- Primary Atrial fibrillation Bifascicular bundle branch block Other bilateral bundle branch block Coronary artery disease involving deering coronary artery of deering heart without angina pectoris History of stroke Transient ischemic attack (TIA), and cerebral infarction without residual deficits documented in this encounter Care Teams Rn Interventional Relationship Specialty Start Date End Date Sellathurai, Thiviyanath, MD [address] [place] [address] [place] [address] PCP - General Family Medicine 11/21/21 documented as of this encounter
--- OUTSIDE RECORDS SUMMARY | 2023-10-31 19:36 | External Medical Summary | Summary of Care ---
Author Name Unknown Organization [facility] Address [address] [place] [address] Phone [phone] Care Team Providers Care Title One Reading Teacher Name Role Phone Jody Arora MD Primary Care Provide r Reason for Visit * Reason Onset Date Comments Medication Question 10/14/2023 Encounter Details Date Type Department Care Team (Late st Contact Info) Description 10/14/2023 Telephone Nephrology, [facility] [address] [place] [address] Services, Scheduling [address] [place] [address] Medication Question Allergies No known active allergiesdocumented [...] by GOLD 2017 classification ([facility]) INHALE 1 DOSE BY MOUTH IN THE MORNING AND 1 AT BEDTIME 60 Each 05/28/2023 Active Additional Information Patient not taking.Reported on 10/10/2023 Ventolin HFA 108 (90 Base) MCG/ACT Inhalation Aerosol SolutionIndications: COPD, group D, by GOLD 2017 classification ([facility]) Inhale 2 Puffs by mouth every 4 hours as needed for Wheezing. 18 g 2 05/28/2023 Active Torsemide 20 MG Oral Tablet (Demadex)Indications :ESRD needing dialysis ([facility]) Take 4 Tablets by mouth 2 [...] (HCC),COPD, group C, by GOLD 2017 classification (HCC),[place]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) 2.5 mg NEBULIZER PRN 04/24/2023 04/23/2024 Active Albuterol Sulfate (Proventil) (2.5 MG/3ML) 0.083% inhalation solution 2.5 mgIndications:Chronic hypoxemic respiratory failure (HCC),COPD, group C, by GOLD 2017 classification (HCC),[place]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) 2.5 mg NEBULIZER PRN 04/24/2023 04/23/2024 Active documented as of this encounter (statuses as of 10/16/2023) Active Problems Problem Noted Date Diagnosed Date COPD, group D, by GOLD 2017 classification 04/29 Overview: Per COPD GOLD Classification [place] 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 States he was advised he was not a surgical candidate. Carotid stenosis, right 07/11/2017 History of stroke 07/11/2017 Overview: TIA vs lacunar stroke diagnosed on head CT in [place] Apr 2017. Follow up MRI [facility] no infarct. Anxiety 07/11/2017 HTN, goal below [...] Description 02/10/2024 1:00 PM EST Imaging Radiology [facility] [address] [place] [address] 02/25/2024 4:00 PM EST Office Visit Urology, [address] [place] [address] Cameron Romeo MD [address] [place] [address] 02/26/2024 1:40 PM EST Office Visit Family Medicine [address] [phone] Jody Arora MD [address] [place] [address] [place] [address] 05/11/2024 10:30 AM EST Office Visit Cardiology, [facility] [address] [place] [address] Augustin Mathis, [address] [place] [address] Health Maintenance Due Date Last Done Comments [...] filedocumented as of this encounter Care Teams Title One Reading Teacher Relationship Specialty Start Date End Date Jody Arora MD [address] [place] [address] [place] [address] PCP - General Family Medicine 11/21/21 documented as of this encounter
--- OUTSIDE RECORDS SUMMARY | 2023-10-31 19:36 | External Medical Summary | Summary of Care ---
Author Name Unknown Organization [facility] Address [address] [place] [address] Phone [phone] Care Team Providers Care Tire Adjuster Name Role Phone Jody Arora MD Primary Care Provide r Encounter Details Date Type Department Care Team (Late st Contact Info) Description 10/02/2023 Refill Family Medicine [address] [phone] Jody Arora MD [address] [place] [address] [place] [id number] Allergies No known active allergiesdocumented as of this encounter (statuses as of 10/03/2023) Medications Medication Sig Dispensed Refills Start Date End Date Status nitroglycerin (NITROSTAT) 0.4 MG SUBL 1 Tablet. 08/19/2018 Active Melatonin 10 MG Oral Capsule Take 1 Capsule by mouth at bedtime. Active Ipratropium-Albutero l 0.5-2.5 (3) MG/3ML Inhalation Solution (Duoneb)Indications: Chronic hypoxemic respiratory failure (HCC),COPD, group C, by GOLD 2017 classification ([facility]) Inhale 3 mL via nebulizer every 4 [...] 2017 classification ([facility]) INHALE 1 DOSE BY MOUTH IN THE MORNING AND 1 AT BEDTIME 60 Each 05/28/2023 Active Ventolin HFA 108 (90 Base) MCG/ACT Inhalation Aerosol SolutionIndications: COPD, group D, by GOLD 2017 classification ([facility]) Inhale 2 Puffs by mouth every 4 hours as needed for Wheezing. 18 g 2 05/28/2023 Active Torsemide 20 MG Oral Tablet (Demadex)Indications :ESRD needing dialysis ([facility]) Take 4 Tablets by mouth 2 times a day in the morning and at noon. 120 Tablet 5 07/05/2023 Active Renal Vitamin 0.8 MG Oral Tablet [...] meals. Take 1 with snack. 08/15/2023 Active Eliquis 2.5 MG Oral Tablet Take 1 Tablet by mouth in the morning and 1 Tablet before bedtime. 08/29/2023 Active LORazepam 0.5 MG Oral Tablet (Ativan)Indications: Anxiety 1 tablet 15-20 minutes before dialysis sessions 30 Tablet 09/03/2023 Active Metoprolol Tartrate 25 MG Oral Tablet (Lopressor) Take 1 Tablet by mouth in the morning and 1 Tablet before bedtime. 60 Tablet 5 09/17/2023 Active Hospital, Clinic, or Other Facility Administered Medication Ordered Dose Route Frequency Start Date End Date Status Albuterol Sulfate (Proventil) (5 MG/ML) 0.5% *conc* inhalation solution 2.5 mgIndications:Chronic hypoxemic respiratory failure (HCC),COPD, group C, by GOLD 2017 classification (HCC),[place]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) 2.5 mg NEBULIZER PRN 04/24/2023 04/23/2024 Active Albuterol Sulfate (Proventil) (2.5 MG/3ML) 0.083% inhalation solution 2.5 mgIndications:Chronic hypoxemic respiratory failure (HCC),COPD, group C, by GOLD 2017 classification (HCC),[place]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) 2.5 mg NEBULIZER PRN 04/24/2023 04/23/2024 Active documented as of this encounter (statuses as of 10/03/2023) Active Problems Problem Noted Date Diagnosed Date COPD, group D, by GOLD 2017 classification 04/29 Overview: Per COPD GOLD Classification [place]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 per patient "kidney cancer". States he was advised he was not a surgical candidate. Carotid stenosis, right 07/11/2017 History of stroke 07/11/2017 Overview: TIA vs lacunar stroke diagnosed on head CT in [place] Apr 2017. Follow up MRI [facility] no infarct. Anxiety 07/11/2017 HTN, goal below 140/90 08/02/2015 Coronary artery disease Dyslipidemia, goal LDL below 100 documented as of this encounter (statuses as of 10/03/2023) Resolved Problems Problem Noted Date Diagnosed Date [...] as of this encounter (statuses as of 10/03/2023) Immunizations Name Administration Dates Next Due COVID-19 [...] encounter Miscellaneous Notes * Addendum Note - Mary Yepez LPN - 10/03/2023 1:46 PM EDTAddended by: MARY YEPEZ on: 10/03/2023 01:46 PM Modules accepted: Orders * Telephone Encounter - Mary Yepez LPN - 10/03/2023 1:42 PM EDT Patient aware and verbalized understanding, will comply Scheduled NV for 10/08 at noon for BP check He is out of Eliquis requesting refill Order pending. * Telephone Encounter - Jody Arora MD - 10/02/2023 10:47 AM EDT Please call the pt - ask him to restart the metoprolol - refill was sent on 09/16 - nurse visit in 1 week for BP and HR check * Telephone Encounter - Jody Arora MD - 10/02/2023 10:47 AM EDT ----- Message from Brielle Schmidt MD sent at 10/02/2023 10:29 AM EDT ----- Hi all, I saw Justin today in clinic as a palliative consultation, this time he is doing okay and doesnot want to go onto hospice care as recommended by Pulmonary at [facility]. However we were reviewing his medications and he said that he is not taking his Lopressor twice daily as prescribed, he was told he had to stop it but he is unsure why. He says that his heart rate isgoing up to 205 at times. He is compliant with his Eliquis. I told him I would pass this message along as we are in clinic leaving follow-up as needed. Thank you! Brielle documented in this encounter Plan of Treatment Upcoming Encounters Date Type Department Care Team (Late st Contact Info) Description 10/09/2023 12:00 PM EDT Nurse Only Ancillary [address] [place] [address] [place], Nurse [address] [place] [address] 10/10/2023 11:00 AM EDT Office Visit Cardiology, [facility] [address] [place] [address] Augustin Mathis DO [address] [place] [address] 02/10/2024 1:00 PM EST Imaging Radiology [facility] 1st Floor, [place] [facility] [place] [address] 02/25/2024 4:00 PM EST Office Visit Urology, [facility] [address] [facility] [place] [address] Cameron Romeo MD [address] [place] [address] 02/26/2024 1:40 PM EST Office Visit Family Medicine [address] [place] [phone] Jody Arora MD [address] [place] [address] [place] [address] Health Maintenance Due Date Last Done Comments Alpha-1 Antitrypsin 1958 *COPD SEVERITY VERIFIED BY PFT 07/16/2020 COVID-19 Vaccine ( season) 2023 01/03/2023, 01/10/2021, 05/24/2020, Additional history exists Influenza Vaccine (FLU shot) (#1) 2023 01/23/2023, 12/07/2021, 12/05/2020, Additional history exists GFR 02/27/2024 08/28/2023, 0509/2023, 07/10/2023, Additional history exists Depression Screening 05/19/2024 05/20/2023 Albumin/Creatinine Ratio 07/09/202407/09/2 024, 08/08/2022, 12/07/2021, Additional history exists PTH 07/09/2024 07/10/2023, 11/16, 07/12/2022, Additional history exists Phosphate 07/09/2024 07/10/2023, 03/18, 03/19/2023, Additional history exists Nephrology Referral 07/14/2024 07/15/2023 Hgb 08/27/2024 08/28/2023, 04/0 06/2023, 02/25/2023, Additional history exists O2 ASSESSMENT COMPLETED IN PAST YEAR FOR COPD 10/01/2024 10/02/2023 DTaP,Tdap,and Td Vaccines (2 - Td or [...] filedocumented as of this encounter Care Teams Tire Adjuster Relationship Specialty Start Date End Date Jody Arora MD [address] [place] [address] [place] [phone] PCP - General Family Medicine 11/21/21 documented as of this encounter
--- OUTSIDE RECORDS SUMMARY | 2023-10-31 19:36 | External Medical Summary | Summary of Care ---
Author Name Unknown Organization [facility] Address [address] [place] [address] Phone [phone] Care Team Providers Care Food Beverage Supervisor Name Role Phone Jody Arora MD Primary Care Provide r Reason for Visit * Reason Comments eRx-Medication Refill Encounter Details Date Type Department Care Team (Late st Contact Info) Description 10/13/2023 Refill Family Medicine [address] [place] [address] Jody Arora MD [address] [place] [address] [place] [address] Allergies No known active allergiesdocumented as of this encounter (statuses as of 10/14/2023) Medications Medication Sig Dispensed Refills Start Date End Date Status nitroglycerin (NITROSTAT) 0.4 MG SUBL 1 Tablet. 9 Active Melatonin 10 MG Oral Capsule [...] a day. 71 g 2 3 Active Tamsulosin HCl 0.4 MG Oral Capsule (Flomax)Indications :BPH without obstruction/lower urinary tract symptoms Take 1 capsule by mouth in the morning 90 Capsule 1 3 Active oxygen IN GAS Use 4 L/min(Oxygen) as directed. Uses "in the evening" Active Fluticasone-Salmete rol 250-50 MCG/ACT Inhalation Aerosol Powder Breath Activated (Advair Diskus)Indications: COPD, group C, by GOLD 2017 classification ([facility]) INHALE 1 DOSE BY MOUTH IN THE MORNING AND 1 AT BEDTIME 60 Each 4 Active Additional Information Patient not taking.Reported on 10/10/2023 Ventolin HFA 108 (90 Base) MCG/ACT Inhalation Aerosol SolutionIndications :COPD, group D, by GOLD 2017 classification ([facility]) Inhale 2 Puffs by mouth every 4 hours as needed for Wheezing. 18 g 2 4 Active Torsemide 20 MG Oral Tablet (Demadex)Indication s:ESRD needing dialysis ([facility]) Take 4 Tablets by mouth 2 times a day in the morning and at noon. 120 Tablet 5 4 Active Additional Information Patient taking differently: 100 mgOral BID (0800, NOON),Takes one tab in am and one tab in pm, Reported on 10/10/2023 Renal Vitamin 0.8 MG Oral Tablet Take 1 Tablet by mouth daily. With midday meal post dialysis 4 Active Midodrine HCl 5 MG Oral Tablet (Proamatine) Take 1 Tablet by mouth daily. Prior to dialysis 4 Active Calcium Acetate (Phos Binder) 667 MG Oral Capsule (Phoslo) Take 2 Capsules by mouth in the morning and 2 Capsules at noon and 2 Capsules in the evening. Take with meals. Take 1 with snack. 4 Active LORazepam 0.5 MG Oral Tablet (Ativan)Indications :Anxiety 1 tablet 15-20 minutes before dialysis sessions 30 Tablet 4 Active Metoprolol Tartrate 25 MG Oral Tablet (Lopressor) Take 1 Tablet by mouth in the morning and 1 Tablet before bedtime. 60 Tablet 5 4 Active Eliquis 2.5 MG Oral Tablet Take 1 Tablet by mouth in the morning and 1 Tablet before bedtime. 60 Tablet 5 4 Active Rosuvastatin Calcium 10 MG Oral Tablet (Crestor) TAKE 1 TABLET BY MOUTH IN THE MORNING 90 Tablet 1 4 Active Rosuvastatin Calcium 10 MG Oral Tablet (Crestor) Take 1 Tablet by mouth in the morning. 90 Tablet 1 4 10/14/19 24 Discontinued Hospital, Clinic, or Other Facility Administered Medication Ordered Dose Route Frequency Start Date End Date Status Albuterol Sulfate (Proventil) (5 MG/ML) 0.5% *conc* inhalation solution 2.5 mgIndications:Chronic hypoxemic respiratory failure (HCC),COPD, group C, by GOLD 2017 classification (HCC),[place]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) 2.5 mg NEBULIZER PRN 04/24/2023 04/23/2024 Active Albuterol Sulfate (Proventil) (2.5 MG/3ML) 0.083% inhalation solution 2.5 mgIndications:Chronic hypoxemic respiratory failure (HCC),COPD, group C, by GOLD 2017 classification (HCC),[place]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) 2.5 mg NEBULIZER PRN 04/24/2023 04/23/2024 Active documented as of this encounter (statuses as of 10/14/2023) Active Problems Problem Noted Date Diagnosed Date COPD, group D, by GOLD 2017 classification 04/29 Overview: Per COPD GOLD Classification [place] 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 Follow up MRI [facility] no infarct. Anxiety 07/11/2017 HTN, goal below 140/90 08/02/2015 Coronary artery disease Dyslipidemia, goal LDL below 100 documented as of this encounter (statuses as of 10/14/2023) Resolved Problems Problem Noted Date Diagnosed Date [...] as of this encounter (statuses as of 10/14/2023) Immunizations Name Administration Dates Next Due COVID-19 [...] No 05/20/2023 Does the household have a memorial medical centerlar source of income? (Household - for ages [...] encounter Miscellaneous Notes * Telephone Encounter - Francisco Jean [facility] - 10/14/2023 11:49 AM EDT Signed Prescriptions: Disp Refills Rosuvastatin Calcium 10 MG Oral Tablet (Cr*90 Tab*1 Sig: TAKE 1 TABLET BY MOUTH IN THE MORNINGAuthorizing Provider: Brittani ARORA User: FRANCISCO JEAN documented in this encounter Plan of Treatment Upcoming Encounters Date Type Department Care Team (Late st Contact Info) Description 02/10/2024 1:00 PM EST Imaging Radiology [facility] 1st [facility] [address] [place] [address] 02/25/2024 4:00 PM EST Office Visit Urology, [facility] [address] [place] [address] Cameron Romeo MD [address] [place] [address] 02/26/2024 1:40 PM EST Office Visit Family Medicine [address] [phone] Jody Arora MD [address] [place] [address] [place] [address] 05/11/2024 10:30 AM EST Office Visit Cardiology, [facility] [address] [place] [address] Augustin Mathis DO [address] [place] [address] Health Maintenance Due Date Last Done Comments [...] filedocumented as of this encounter Care Teams Food Beverage Supervisor Relationship Specialty Start Date End Date Jody Arora MD [address] [place] [address] [place] [address] PCP - General Family Medicine 11/21/21 documented as of this encounter
--- OUTSIDE RECORDS SUMMARY | 2023-10-31 19:36 | External Medical Summary | Summary of Care ---
Author Name Unknown Organization [facility] Address [address] [place] [address] Phone [phone] Care Team Providers Care Ironmolder Name Role Phone Jody Arora MD Primary Care Provide r Reason for Visit * Reason Onset Date Comments Medication Question 10/14/2023 Encounter Details Date Type Department Care Team (Late st Contact Info) Description 10/14/2023 Telephone Nephrology, [facility] [address] [place] [address] Services, Scheduling [address] [place] [address] Medication Question Allergies No known active allergiesdocumented [...] (HCC),COPD, group C, by GOLD 2017 classification (HCC),[place]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) 2.5 mg NEBULIZER PRN 04/24/2023 04/23/2024 Active Albuterol Sulfate (Proventil) (2.5 MG/3ML) 0.083% inhalation solution 2.5 mgIndications:Chronic hypoxemic respiratory failure (HCC),COPD, group C, by GOLD 2017 classification (HCC),[place]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 States he was advised he was not a surgical candidate. Carotid stenosis, right 07/11/2017 History of stroke 07/11/2017 Overview: TIA vs lacunar stroke diagnosed on head CT in [place] Apr 2017. Follow up MRI [facility] no infarct. Anxiety 07/11/2017 HTN, goal [...] Description 02/10/2024 1:00 PM EST Imaging Radiology [facility] 1st [facility] 132 [facility] [place] [address] 02/25/2024 4:00 PM EST Office Visit Urology, [facility] [address] [place] [address] Cameron Romeo MD [address] [place] [address] 02/26/2024 1:40 PM EST Office Visit Family Medicine [address] [place] [phone] Jody Arora MD [address] [place] [address] [place] [address] 05/11/2024 10:30 AM EST Office Visit Cardiology, [facility] [address] [place] [address] Augustin Mathis DO [address] [place] [address] Health Maintenance Due Date Last Done Comments [...] filedocumented as of this encounter Care Teams Ironmolder Relationship Specialty Start Date End Date Jody Arora MD [address] [place] [address] [place] [address] PCP - General Family Medicine 11/21/21 documented as of this encounter
--- OUTSIDE RECORDS SUMMARY | 2023-10-31 19:36 | External Medical Summary | Summary of Care ---
Author Name Unknown Organization [facility] Address [address] [place] [address] Phone [phone] Care Team Providers Care Consumer Educator Name Role Phone Jody Arora MD Primary Care Provide r Reason for Visit * Reason Onset Date Comments Medication Question 10/14/2023 Encounter Details Date Type Department Care Team (Late st Contact Info) Description 10/14/2023 Telephone Nephrology, [facility] [address] [place] [address] Services, Scheduling [address] [place] [address] Medication Question Allergies No known active allergiesdocumented [...] OPD, group C, by GOLD 2017 classification ([facility]) INHALE 1 DOSE BY MOUTH IN THE MORNING AND 1 AT BEDTIME 60 Each 05/28/2023 Active Additional Information Patient not taking.Reported on 10/10/2023 Ventolin HFA 108 (90 Base) MCG/ACT Inhalation Aerosol SolutionIndications: COPD, group D, by GOLD 2017 classification ([facility]) Inhale 2 Puffs by mouth every 4 hours as needed for Wheezing. 18 g 2 05/28/2023 Active Torsemide 20 MG Oral Tablet (Demadex)Indications :ESRD needing dialysis ([facility]) Take 4 Tablets by mouth [...] biopsy at [facility] per patient "kidney cancer". States he was advised he was not a surgical candidate. Carotid stenosis, right 07/11/2017 History of stroke 07/11/2017 Overview: TIA vs lacunar stroke diagnosed on head CT in [place] Apr 2017. [facility] [...] encounter Miscellaneous Notes * Telephone Encounter - Lauren Fritz OSA - 10/14/2023 4:05 PM EDT Pt calling asking to speak to someone in Dr. Patel's office concerning medication. Thank you [facility] Scheduling Services documented in this encounter Plan of Treatment Upcoming Encounters Date Type Department Care Team (Late st Contact Info) Description 02/10/2024 1:00 PM EST Imaging Radiology [facility] 1st Floor, [place] [address] [place] [address] 02/25/2024 4:00 PM EST Office Visit Urology, [facility] [address] [place] [address] Cameron Romeo MD [address] [place] [address] 02/26/2024 1:40 PM EST Office Visit Family Medicine [address] [place] [phone] Jody Arora MD [address] [place] [address] [place] [address] 05/11/2024 10:30 AM EST Office Visit Cardiology, [facility] [address] [place] [address] Augustin Mathis, [address] [place] [address] Health Maintenance Due Date Last Done Comments [...] filedocumented as of this encounter Care Teams Consumer Educator Relationship Specialty Start Date End Date Jody Arora MD [address] [place] [address] [place] [address] PCP - General Family Medicine 11/21/21 documented as of this encounter
--- OUTSIDE RECORDS SUMMARY | 2023-10-31 19:37 | External Medical Summary | Summary of Care ---
Author Name Unknown Organization [facility] Address [address] [place] [address] Phone [phone] Care Team Providers Care Manager Of Patient Name Role Phone Jody Arora MD Primary Care Provide r Reason for Visit * Reason Onset Date Comments Advice 09/10/2023 Encounter Details Date Type Department Care Team (Late st Contact Info) Description 09/10/2023 Telephone Nephrology, [facility] [address] [place] [address] Services, Scheduling [address] [place] [address] Advice Allergies No known active allergiesdocumented as of this encounter (statuses as of 09/25/2023) Medications Medication Sig Dispensed Refills Start Date [...] COPD, group C, by GOLD 2017 classification ([facility]) INHALE 1 DOSE BY MOUTH IN THE MORNING AND 1 AT BEDTIME 60 Each 05/28/2023 Active Ventolin HFA 108 (90 Base) MCG/ACT Inhalation Aerosol SolutionIndications :COPD, group D, by GOLD 2017 classification ([facility]) Inhale 2 Puffs by mouth every 4 hours as needed for Wheezing. 18 g 2 05/28/2023 Active Torsemide 20 MG Oral Tablet (Demadex)Indication s:ESRD needing dialysis ([facility]) Take 4 Tablets by mouth 2 times a day in the morning and at noon. 120 Tablet 5 07/05/2023 Active methylPREDNISolone 4 MG Oral Tablet Therapy Pack (Medrol Dosepack) follow package directions 21 Tablet 07/27/2023 Active traMADol HCl 50 MG Oral Tablet (Ultram)Indications :Pain in joint of right shoulder Take 1 [...] mouth daily. Prior to dialysis 08/15/2023 Active Eliquis 2.5 MG Oral Tablet Take 1 Tablet by mouth in the morning and 1 Tablet before bedtime. 08/29/2023 Active LORazepam 0.5 MG Oral Tablet (Ativan)Indications :Anxiety 1 tablet 15-20 minutes before dialysis sessions 30 Tablet 09/03/2023 Active Sodium Bicarbonate 650 MG Oral Tablet TAKE 2 TABLETS BY MOUTH IN THE MORNING AND 2 BEFORE BEDTIME 120 Tablet 04/15/2023 4 Discontinu ed(Medicat ion List Clean Up) hydrOXYzine HCl 50 MG Oral TabletIndications:P rimary insomnia TAKE 1 TABLET BY MOUTH AT BEDTIME NEEDED FOR INSOMNIA 30 Tablet 3 05/13/2023 4 Discontinu ed(Refill) busPIRone HCl 5 MG Oral Tablet (Buspar)Indications :Anxiety Take 1 Tablet by mouth in the morning and 1 Tablet before bedtime. 60 Tablet 08/16/2023 4 Discontinu ed(Refill) Metoprolol Tartrate 25 MG Oral Tablet (Lopressor) Take 1 Tablet by mouth in the morning and 1 Tablet before bedtime. 08/29/2023 4 Discontinu ed(Refill) Hospital, Clinic, or Other Facility Administered Medication Ordered Dose Route Frequency Start Date End Date Status Albuterol Sulfate (Proventil) (5 MG/ML) 0.5% *conc* inhalation solution 2.5 mgIndications:Chronic hypoxemic respiratory failure (HCC),COPD, group C, by GOLD 2017 classification ([facility]),[place] miners' lung ([facility]) 2.5 mg NEBULIZER PRN 04/24/2023 04/23/2024 Active Albuterol Sulfate (Proventil) (2.5 MG/3ML) 0.083% inhalation solution 2.5 mgIndications:Chronic hypoxemic respiratory failure (HCC),COPD, group C, by GOLD 2017 classification ([facility]),[place]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) 2.5 mg NEBULIZER PRN 04/24/2023 04/23/2024 Active documented as of this encounter (statuses as of 09/25/2023) Active Problems Problem Noted Date Diagnosed Date [...] renal mass 07/11/2017 Overview: 2018 biopsy at [facility] per patient "kidney cancer". States he was advised he was not a surgical candidate. Carotid stenosis, right 07/11/2017 History of stroke 07/11/2017 Overview: TIA vs lacunar stroke diagnosed on head CT in [place] Apr 2017. Follow up MRI [facility] no infarct. Anxiety 07/11/2017 HTN, goal below 140/90 08/02/2015 Coronary artery disease Dyslipidemia, goal LDL below 100 documented as of this encounter (statuses as of 09/25/2023) Resolved Problems Problem Noted Date Diagnosed Date [...] as of this encounter (statuses as of 09/25/2023) Immunizations Name Administration Dates Next Due COVID-19 [...] Telephone Encounter - Nancy Seals LPN - 09/25/2023 3:21 PM EDT Spoke with patient notes continued edema to feet and ankles States "I can not even get my shoes on"Denies SOB Pt had dialysis yesterday and will go tomorrow again I ask pt is he made dialysis aware He states yes they have been aware He wishes to speak with Dr Patel regarding * Telephone Encounter - Lita Palacios OSA - 09/25/2023 1:13 PM EDT Good afternoon, Patient on the line, he states he still has swelling in his feet. Please call the patient back. Thank you * Telephone Encounter - Gabby Sosa RN - 09/10/2023 10:28 AM EDT TT from Dr Patel regarding pt's swelling. She is going to contact the dialysis unit for possibleshort treatment tomorrow. He was advised to keep feet elevated. He is also aware to bring all pill bottles to next dialysis session for reconciliation. * Telephone Encounter - Gabby Sosa RN - 09/10/2023 10:14 AM EDT Te with pt this AM. States that he has increased edema in lower legs and feet and unable to put shoes on. Denies worsening shortness of breath. States he does not know what to do about this. * Telephone Encounter - Savita Portillo OSA - 09/10/2023 9:58 AM EDT Good morning, Pt on the line stating he has severe swelling in his feet and legs. Pt states he can no longer put his shoes on. Please contact pt to advise. Thank you! documented in this encounter Plan of Treatment Upcoming Encounters Date Type Department Care Team (Late st Contact Info) Description 10/02/2023 9:30 AM EDT Office Visit Palliative Medicine [facility] [address] [facility] [place] [phone] Brielle Schmidt MD [address] [place] [address] [place] [address] 10/10/2023 11:00 AM EDT Office Visit Cardiology, [facility] 132 [facility] [place] [address] Augustin Mathis DO 132 [facility] [place] [address] 02/10/2024 1:00 PM EST Imaging Radiology [facility] 1st [facility] 132 [facility] [place] [address] 02/25/2024 4:00 PM EST Office Visit Urology, [facility] 132 [facility] [place] [address] Cameron Romeo MD [address] [place] [address] 02/26/2024 1:40 PM EST Office Visit Family Medicine [address] [place] [phone] Jody Arora MD [address] [place] [address] [place] [address] Health Maintenance Due Date Last Done Comments Alpha-1 Antitrypsin 1958 *COPD SEVERITY VERIFIED BY PFT 07/16/2020 Hepatitis B Vaccine (3 of 3 - 19+ 3-dose series) [...] ASSESSMENT COMPLETED IN PAST YEAR FOR COPD 09/02/2024 09/03/2023 DTaP,Tdap,and Td Vaccines (2 - Td or Tdap) 10/24/2028 10/24/2018 Pneumococcal Vaccine: 65+ Years Completed 01/16/2018, 01/16/2018, 02/09/2015 Zoster Vaccines Completed 12/11/2019, 10/09/2019 HPV (Gardasil) Vaccine Aged Out No lo nger eligible based on patient's age to complete this topic MENINGOCOCCAL (MENACTRA/MENVEO) Aged Out No longer eligible based on patient's age to complete this topic documented as of this encounter Medical Devices Not on filedocumented as of this encounter Care Teams Manager Of Patient Relationship Specialty Start Date End Date Jody Arora MD [address] [place] [address] [place] [address] PCP - General Family Medicine 11/21/21 documented as of this encounter
--- OUTSIDE RECORDS SUMMARY | 2023-10-31 19:37 | External Medical Summary | Summary of Care ---
Author Name Unknown Organization [facility] Address [address] [place] [address] Phone [phone] Care Team Providers Care Ware Cleaner Name Role Phone Jody Arora MD Primary Care Provide r Encounter Details Date Type Department Care Team (Late st Contact Info) Description 09/16/2023 Result Scan Unspecified Department <No scans attached> Allergies No known active allergiesdocumented as of this encounter (statuses as of 09/18/2023) Medications Medication Sig Dispensed Refills Start Date [...] OPD, group C, by GOLD 2017 classification ([facility]) INHALE 1 DOSE BY MOUTH IN THE MORNING AND 1 AT BEDTIME 60 Each 05/28/2023 Active Ventolin HFA 108 (90 Base) MCG/ACT Inhalation Aerosol SolutionIndications: COPD, group D, by GOLD 2017 classification ([facility]) Inhale 2 Puffs by mouth every 4 hours as needed for Wheezing. 18 g 2 05/28/2023 Active Torsemide 20 MG Oral Tablet (Demadex)Indications :ESRD needing dialysis ([facility]) Take 4 Tablets by mouth [...] before dialysis sessions 30 Tablet 09/03/2023 Active Hospital, Clinic, or Other Facility Administered Medication Ordered Dose Route Frequency Start Date End Date Status Albuterol Sulfate (Proventil) (5 MG/ML) 0.5% *conc* inhalation solution 2.5 mgIndications:Chronic hypoxemic respiratory failure (HCC),COPD, group C, by GOLD 2017 classification (HCC),[place]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) 2.5 mg NEBULIZER PRN 04/24/2023 04/23/2024 Active Albuterol Sulfate (Proventil) (2.5 MG/3ML) 0.083% inhalation solution 2.5 mgIndications:Chronic hypoxemic respiratory failure (HCC),COPD, group C, by GOLD 2017 classification (HCC),[place]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) 2.5 mg NEBULIZER PRN 04/24/2023 04/23/2024 Active documented as of this encounter (statuses as of 09/18/2023) Active Problems Problem Noted Date Diagnosed Date COPD, group D, by GOLD 2017 classification 04/29 Overview: 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 States he was advised he was not a surgical candidate. Carotid stenosis, right 07/11/2017 History of stroke 07/11/2017 Overview: TIA vs lacunar stroke diagnosed on head CT in [place] Apr 2017. Follow up MRI [facility] no infarct. Anxiety 07/11/2017 HTN, goal below 140/90 08/02/2015 Coronary artery disease Dyslipidemia, goal LDL below 100 documented as of this encounter (statuses as of 09/18/2023) Resolved Problems Problem Noted Date Diagnosed Date [...] as of this encounter (statuses as of 09/18/2023) Immunizations Name Administration Dates Next Due COVID-19 [...] 9:30 AM EDT Office Visit Palliative Medicine [facility] 200 [place] [address] Brielle Schmidt MD [address] [place] [address] [place] [address] 10/10/2023 11:00 AM EDT Office Visit Cardiology, [facility] [address] [place] [address] Augustin Mathis, 132 [facility] [place] [address] 02/10/2024 1:00 PM EST Imaging Radiology [facility] 1st Floor, [place] 132 [facility] [place] [address] 02/25/2024 4:00 PM EST Office Visit Urology, [facility] 132 [facility] [place] [address] Cameron Romeo MD [address] [place] [address] 02/26/2024 1:40 PM EST Office Visit Family Medicine [address] [place] [phone] Jody Arora MD [address] [place] [address] [place] [address] Health Maintenance Due Date Last Done Comments Alpha-1 Antitrypsin 1958 *COPD SEVERITY VERIFIED BY PFT 07/16/2020 Hepatitis B Vaccine (3 of 3 - 19+ 3-dose series) 03/20/2023 01/23/2023, 01/08/2018 COVID-19 Vaccine (2022- season) 2023 01/03/2023, 01/10/2021, 05/24/2020, Additional history exists Influenza Vaccine (FLU shot) (#1) 2023 01/23/2023, 12/07/2021, 12/05/2020, Additional history exists GFR 02/27/2024 08/28/2023, 05/09/2023, 07/10/2023, Additional history exists Depression Screening 05/19/2024 [...] Procedure Name Priority Date/Time Associated Diagnosis Comments OUTSIDE LAB RESULTS 09/16/2023 documented in this encounter Results * OUTSIDE LAB RESULTS (09/16/2023) 09/16/2023 No Physician Data Unknown LABORATORY documented in this encounter Care Teams Ware Cleaner Relationship Specialty Start Date End Date Jody Arora MD [address] [place] [address] [place] [address] PCP - General Family Medicine 11/21/21 documented as of this encounter
--- OUTSIDE RECORDS SUMMARY | 2023-10-31 19:37 | External Medical Summary | Summary of Care ---
Author Name Unknown Organization [facility] Address [address] [place] [address] Phone [phone] Care Team Providers Care Malted Milk Mixer Name Role Phone Jody Arora MD Primary Care Provide r Reason for Visit * Reason Onset Date Comments Advice 09/10/2023 Encounter Details Date Type Department Care Team (Late st Contact Info) Description 09/10/2023 Telephone Nephrology, [facility] [address] [place] [address] Services, Scheduling [address] [place] [address] Advice Allergies No known active allergiesdocumented as of this encounter (statuses as of 09/27/2023) Medications Medication Sig Dispensed Refills Start Date [...] :COPD, group D, by GOLD 2017 classification ([facility]) Inhale 2 Puffs by mouth every 4 hours as needed for Wheezing. 18 g 2 05/28/2023 Active Torsemide 20 MG Oral Tablet (Demadex)Indication s:ESRD needing dialysis ([facility]) Take [...] by GOLD 2017 classification ([facility]),[place] miners' lung ([facility]) 2.5 mg NEBULIZER PRN 04/24/2023 04/23/2024 Active Albuterol Sulfate (Proventil) (2.5 MG/3ML) 0.083% inhalation solution 2.5 mgIndications:Chronic hypoxemic respiratory failure (HCC),COPD, group C, by GOLD 2017 classification ([facility]),[place]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) 2.5 mg NEBULIZER PRN 04/24/2023 04/23/2024 Active documented as of this encounter (statuses as of 09/27/2023) Active Problems Problem Noted Date Diagnosed Date COPD, group D, by GOLD 2017 classification 04/29 Overview: 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 Follow up MRI [facility] no infarct. Anxiety 07/11/2017 HTN, goal below 140/90 08/02/2015 Coronary artery disease Dyslipidemia, goal LDL below 100 documented as of this encounter (statuses as of 09/27/2023) Resolved Problems Problem Noted Date Diagnosed Date [...] as of this encounter (statuses as of 09/27/2023) Immunizations Name Administration Dates Next Due COVID-19 [...] Telephone Encounter - Rosy Patel MD - 09/27/2023 11:09 AM EDT Addressed at dialysis on 09/25 * Telephone Encounter - Nancy Seals LPN [...] 9:30 AM EDT Office Visit Palliative Medicine [facility] [address] [place] [phone] Brielle Schmidt MD [address] [place] [address] [place] [address] 10/10/2023 11:00 AM EDT Office Visit Cardiology, [facility] 132 [facility] [place] [address] Augustin Mathis DO 132 [facility] [place] [address] 02/10/2024 1:00 PM EST Imaging Radiology [facility] 1st [facility] 132 [facility] [place] [address] 02/25/2024 4:00 PM EST Office Visit Urology, [facility] 132 [facility] [place] [address] Cameron Romeo MD 27 [place] [address] 02/26/2024 1:40 PM EST Office Visit Family Medicine [address] [place] [phone] Jody Arora MD [address] [place] [address] [place] [address] Health Maintenance Due Date Last Done Comments [...] Nephrology Referral 07/14/2024 07/15/2023 Hgb 08/27/2024 08/28/2023, 040 06/2023, 02/25/2023, Additional history exists O2 ASSESSMENT [...] filedocumented as of this encounter Care Teams Malted Milk Mixer Relationship Specialty Start Date End Date Jody Arora MD [address] [place] [address] [place] [phone] PCP - General Family Medicine 11/21/21 documented as of this encounter
--- OUTSIDE RECORDS SUMMARY | 2023-10-31 19:37 | External Medical Summary | Summary of Care ---
Author Name Unknown Organization [facility] Address [address] [place] [address] Phone [phone] Care Team Providers Care Rehabilitation Clerk Name Role Phone Jody Arora MD Primary Care Provide r Encounter Details Date Type Department Care Team (Late st Contact Info) Description 10/02/2023 Telephone Family Medicine [address] [phone] Jody Arora MD [address] [place] [address] [place] [id number] Allergies No known active allergiesdocumented as of this encounter (statuses as of 10/02/2023) Medications Medication Sig Dispensed Refills Start Date End Date Status nitroglycerin (NITROSTAT) 0.4 MG SUBL 1 Tablet. 08/19/2018 Active Melatonin 10 MG Oral Capsule Take 1 Capsule by mouth at bedtime. Active Ipratropium-Albutero l 0.5-2.5 (3) MG/3ML Inhalation Solution (Duoneb)Indications: Chronic hypoxemic respiratory failure (HCC),COPD, group C, by GOLD 2017 classification ([facility]) Inhale 3 mL via nebulizer [...] Tablet (Demadex)Indications :ESRD needing dialysis ([facility]) Take 4 Tablets by mouth [...] (HCC),COPD, group C, by GOLD 2017 classification (HCC),[place]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) 2.5 mg NEBULIZER PRN 04/24/2023 04/23/2024 Active Albuterol Sulfate (Proventil) (2.5 MG/3ML) 0.083% inhalation solution 2.5 mgIndications:Chronic hypoxemic respiratory failure (HCC),COPD, group C, by GOLD 2017 classification (HCC),[place]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) 2.5 mg NEBULIZER PRN 04/24/2023 04/23/2024 Active documented as of this encounter (statuses as of 10/02/2023) Active Problems Problem Noted Date Diagnosed Date COPD, group D, by GOLD 2017 classification 04/29 Overview: 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 States he was advised he was not a surgical candidate. Carotid stenosis, right 07/11/2017 History of stroke 07/11/2017 Overview: TIA vs lacunar stroke diagnosed on head CT in [place] Apr 2017. Follow up MRI [facility] no infarct. Anxiety 07/11/2017 HTN, goal below 140/90 08/02/2015 Coronary artery disease Dyslipidemia, goal LDL below 100 documented as of this encounter (statuses as of 10/02/2023) Resolved Problems Problem Noted Date Diagnosed Date [...] as of this encounter (statuses as of 10/02/2023) Immunizations Name Administration Dates Next Due COVID-19 [...] hospice care as recommended by Pulmonary at [facility]. However we were reviewing his medications [...] 10/10/2023 11:00 AM EDT Office Visit Cardiology, [facility] 132 [place] [address] Augustin Mathis, 132 [place] [address] 02/10/2024 1:00 PM EST Imaging Radiology [address] [place] [address] 02/25/2024 4:00 PM EST Office Visit Urology, [facility] [address] [place] [address] Cameron Romeo MD 27 [place] [address] 02/26/2024 1:40 PM EST Office Visit Family [address] [phone] oJdy Arora MD [address] [place] [address] [place] [address] Health Maintenance Due Date Last Done Comments Alpha-1 Antitrypsin 1958 *COPD SEVERITY VERIFIED BY PFT 07/16/2020 COVID-19 Vaccine ( season) 2023 01/03/2023, 01/10/2021, 05/24/2020, Additional history exists Influenza Vaccine (FLU shot) (#1) 2023 01/23/2023, 12/07/2021, 12/05/2020, Additional history exists GFR 02/27/2024 08/28/2023, 09/2023, 07/10/2023, Additional history exists Depression Screening [...] filedocumented as of this encounter Care Teams Rehabilitation Clerk Relationship Specialty Start Date End Date Jody Arora MD [address] [place] [address] [place] [phone] PCP - General Family Medicine 11/21/21 documented as of this encounter
--- OUTSIDE RECORDS SUMMARY | 2023-10-31 19:37 | External Medical Summary | Summary of Care ---
Author Name Unknown Organization [facility] Address [address] [place] [address] Phone [phone] Care Team Providers Care Water Trainer Name Role Phone Jody Arora MD Primary Care Provide r Reason for Visit * Reason Onset Date Comments Advice 09/10/2023 Encounter Details Date Type Department Care Team (Late st Contact Info) Description 09/10/2023 Telephone Nephrology, [facility] [address] [place] [address] Services, Scheduling [address] [place] [address] Advice Allergies No known active allergiesdocumented as [...] COPD, group C, by GOLD 2017 classification ([facility]) INHALE 1 DOSE BY MOUTH IN THE MORNING AND 1 AT BEDTIME 60 Each 05/28/2023 Active Ventolin HFA 108 (90 Base) MCG/ACT Inhalation Aerosol SolutionIndications :COPD, group D, by GOLD 2017 classification ([facility]) Inhale 2 Puffs by mouth every 4 hours as needed for Wheezing. 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 States he was advised he was not a surgical candidate. Carotid stenosis, right 07/11/2017 History of stroke 07/11/2017 Overview: TIA vs lacunar stroke diagnosed on head CT in [place] Apr 2017. Follow up MRI [facility] [...] 9:30 AM EDT Office Visit Palliative Medicine [facility] [address] [place] [phone] Brielle Schmidt [facility] [address] 10/10/2023 11:00 AM EDT Office Visit Cardiology, [facility] 132 [facility] [place] [address] Augustin Mathis DO 132 [facility] [place] [address] 02/10/2024 1:00 PM EST Imaging Radiology [facility] [address] [facility] 132 [facility] [place] [address] 02/25/2024 4:00 PM EST Office Visit Urology, [facility] 132 [facility] [place] [address] Cameron Romeo MD [address] [place] [address] [place] [address] 02/26/2024 1:40 PM EST Office Visit Family Medicine [address] [place] [phone] Jody Arora MD [address] [place] [address] [place] [address] Health Maintenance Due Date Last Done Comments [...] filedocumented as of this encounter Care Teams Water Trainer Relationship Specialty Start Date End Date Jody Arora MD [address] [place] [address] [place] [phone] PCP - General Family Medicine 11/21/21 documented as of this encounter
--- OUTSIDE RECORDS SUMMARY | 2023-10-31 19:37 | External Medical Summary | Summary of Care ---
Author Name Unknown Organization [facility] Address [address] [place] [address] Phone [phone] Care Team Providers Care Ditch Inspector Name Role Phone Jody Arora MD Primary Care Provide r Encounter Details Date Type Department Care Team (Late st Contact Info) Description 06/20/2023 Telephone Nephrology [address] [place] [address] Rosy Patel MD [address] [place] [address] [place] [id number] Allergies No known active allergiesdocumented as of this encounter (statuses as of 09/19/2023) Medications Medication Sig Dispensed Refills Start Date End Date Status nitroglycerin (NITROSTAT) 0.4 MG SUBL 1 Tablet. 9 Active Melatonin 10 MG Oral Capsule Take 1 Capsule by mouth at bedtime. Active Ipratropium-Albute rol 0.5-2.5 (3) MG/3ML Inhalation [...] the morning 90 Capsule 1 3 Active Rosuvastatin Calcium 10 MG Oral Tablet (Crestor) Take 1 Tablet by mouth in the morning. 90 Tablet 1 4 Active oxygen IN GAS Use 4 L/min(Oxygen) as directed. Uses "in the evening" Active Fluticasone-Salmet aleida 250-50 MCG/ACT Inhalation Aerosol Powder Breath Activated (Advair Diskus)Indications :COPD, group C, by GOLD 2017 classification ([facility]) INHALE 1 DOSE BY MOUTH IN THE MORNING AND 1 AT BEDTIME 60 Each 4 Active Ventolin HFA 108 (90 Base) MCG/ACT Inhalation Aerosol SolutionIndication s:COPD, group D, by GOLD 2017 classification ([facility]) Inhale 2 Puffs by mouth every 4 hours as needed for Wheezing. 18 g 2 4 Active Ventolin HFA 108 (90 Base) MCG/ACT Inhalation Aerosol SolutionIndication s:COPD exacerbation ([facility]) Inhale by mouth 2 Puffs every 4 hours as needed for Wheezing. 18 g 1 2 024 Discontinued(Ok dication List Clean Up) Carvedilol 3.125 MG Oral Tablet (Coreg) Take 1 tablet by mouth twice daily with food 180 Tablet 1 3 024 Discontinued Furosemide 20 MG Oral Tablet (Lasix) Take 1 Tablet by mouth in the morning. Along with one 40mg tablet to equal 60mg total daily.. 90 Tablet 3 3 024 Discontinued(Pa tient preference/disc ontinuation) Furosemide 20 MG Oral Tablet (Lasix) Take 1 Tablet by mouth in the morning. Along with one 40 mg tablet. 30 Tablet 5 3 024 Discontinued(Pa tient preference/disc ontinuation) hydrALAZINE HCl 10 MG Oral Tablet (Apresoline) Take 1 Tablet by mouth in the morning and 1 Tablet before bedtime. 60 Tablet 11 4 024 Discontinued(Pa tient preference/disc ontinuation) Furosemide 40 MG Oral Tablet (Lasix) Take 1 Tablet by mouth in the morning and 1 Tablet before bedtime. Take doses at least 4 hours apart or more.. 180 Tablet 3 4 024 Discontinued(Me dication/Dose Changed) Sodium Bicarbonate 650 MG Oral Tablet TAKE 2 TABLETS BY MOUTH IN THE MORNING AND 2 BEFORE BEDTIME 120 Tablet 4 024 Discontinued(Me dication List Clean Up) Spiriva Respimat 2.5 MCG/ACT Inhalation Aerosol Solution (Tiotropium [place] Monohydrate) Inhale 2 Puffs by mouth in the morning. 4 g 2 4 hydrOXYzine HCl 50 MG Oral TabletIndications: Primary insomnia TAKE 1 TABLET BY MOUTH AT BEDTIME NEEDED FOR INSOMNIA 30 Tablet 3 4 024 Discontinued(Re fill) Albuterol Sulfate (2.5 MG/3ML) 0.083% Inhalation Nebulization Solution (Proventil)Indicat ions:COPD, group D, by GOLD 2017 classification ([facility]) Inhale 1 Vial via nebulizer every 4 hours as needed for Wheezing. 100 mL 1 4 024 Discontinued(Me dication/Dose Changed) predniSONE 5 MG Oral Tablet (Deltasone) Take 4 tab Daily for 5 Days Then 3 Tab daily for 5 days Then 2 tab daily for 5 days Then 1 tabe daily for 5 days and STOP 50 Tablet 4 024 Discontinued Albuterol Sulfate (2.5 MG/3ML) 0.083% Inhalation Nebulization Solution (Proventil)Indicat ions:Pneumonia due to COVID-19 virus Inhale 1 Vial via nebulizer every 6 hours as needed for Wheezing. 360 mL 4 024 Discontinued(Me dication/Dose Changed) Hospital, Clinic, or Other Facility Administered Medication Ordered Dose Route Frequency Start Date End Date Status Albuterol Sulfate (Proventil) (5 MG/ML) 0.5% *conc* inhalation solution 2.5 mgIndications:Chronic hypoxemic respiratory failure (HCC),COPD, group C, by GOLD 2017 classification (HCC),[place]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) 2.5 mg NEBULIZER PRN 04/24/2023 04/23/2024 Active Albuterol Sulfate (Proventil) (2.5 MG/3ML) 0.083% inhalation solution 2.5 mgIndications:Chronic hypoxemic respiratory failure (HCC),COPD, group C, by GOLD 2017 classification (HCC),[place]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) 2.5 mg NEBULIZER PRN 04/24/2023 04/23/2024 Active documented as of this encounter (statuses as of 09/19/2023) Active Problems Problem Noted Date Diagnosed Date COPD, group D, by GOLD 2017 classification 04/29 Overview: Per COPD GOLD Classification [place] 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 Follow up MRI [facility] no infarct. Anxiety 07/11/2017 HTN, goal below 140/90 08/02/2015 Coronary artery disease Dyslipidemia, goal LDL below 100 documented as of this encounter (statuses as of 09/19/2023) Resolved Problems Problem Noted Date Diagnosed Date [...] as of this encounter (statuses as of 09/19/2023) Immunizations Name Administration Dates Next Due COVID-19 [...] No 05/20/2023 Does the household have a [facility] source of income? (Household - for ages [...] Telephone Encounter - Rosy Patel MD - 06/20/2023 1:38 PM EDT Pls call [facility] to get records: from Dr Jain/pulmonary -bronchoscopy report if any -culture results from sputum, bronch, BAL -last clinic note (could be as far back as 2017, 2018) From Dr Shankar -last office visit note ALSO pls send over admission paperwork to [facility] documented in this encounter Plan of Treatment Upcoming Encounters Date Type Department Care Team (Late st Contact Info) Description 10/02/2023 9:30 AM EDT Office Visit Palliative Medicine [address] [phone] Brielle Schmidt [facility] [address] [facility] [address] 10/10/2023 11:00 AM EDT Office Visit Cardiology, [facility] 132 [facility] [place] [address] Augustin Mathis, 132 [facility] [place] [address] 02/10/2024 1:00 PM EST Imaging Radiology [facility] 132 [facility] [place] [address] 02/25/2024 4:00 PM EST Office Visit Urology, [address] [place] [address] Cameron Romeo MD [address] [place] [address] [place] [address] 02/26/2024 1:40 PM EST Office Visit Family Medicine [address] [place] [phone] Jody Arora MD [address] [place] [address] [place] [address] Health Maintenance Due Date Last Done Comments [...] filedocumented as of this encounter Care Teams Ditch Inspector Relationship Specialty Start Date End Date Jody Arora MD [address] [place] [address] [place] [address] PCP - General Family Medicine 11/21/21 documented as of this encounter
--- OUTSIDE RECORDS SUMMARY | 2023-10-31 19:37 | External Medical Summary | Summary of Care ---
Author Name Unknown Organization [facility] Address [address] [place] [address] Phone [phone] Care Team Providers Care Safety Representative Name Role Phone Jody Arora MD Primary Care Provide r Reason for Visit * Reason Onset Date Comments Advice 09/10/2023 Encounter Details Date Type Department Care Team (Late st Contact Info) Description 09/10/2023 Telephone Nephrology, [facility] [address] [place] [address] Services, Scheduling [address] [place] [address] Advice Allergies No known active allergiesdocumented as [...] Oral Tablet (Demadex)Indication s:ESRD needing dialysis ([facility]) Take 4 Tablets by mouth [...] classification ([facility]),[place] miners' lung ([facility]) 2.5 mg NEBULIZER PRN 04/24/2023 04/23/2024 Active Albuterol Sulfate (Proventil) (2.5 MG/3ML) 0.083% inhalation solution 2.5 mgIndications:Chronic hypoxemic respiratory failure (HCC),COPD, group C, by GOLD 2017 classification ([facility]),[place]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) 2.5 mg NEBULIZER PRN 04/24/2023 04/23/2024 Active documented as of this encounter (statuses as of 09/25/2023) Active Problems Problem Noted Date Diagnosed Date COPD, group D, by GOLD 2017 classification 04/29 Overview: Per COPD GOLD Classification [place] 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 Follow up [facility] [...] 9:30 AM EDT Office Visit Palliative Medicine [facility] [address] [facility] [place] [phone] Brielle Schmidt MD [address] [place] [address] [place] [address] 10/10/2023 11:00 AM EDT Office Visit Cardiology, [facility] 132 [facility] [place] [address] Augustin Mathis DO [address] [facility] [place] [address] 02/10/2024 1:00 PM EST Imaging Radiology [facility] 1st [facility] 132 [facility] [place] [address] 02/25/2024 4:00 PM EST Office Visit Urology, [facility] 132 [facility] [place] [address] Cameron Romeo MD [address] [place] [address] 02/26/2024 1:40 PM EST Office Visit Family Medicine [address] [place] [phone] Jody Arora MD [address] [place] [address] [place] [address] Health Maintenance Due Date Last Done Comments [...] filedocumented as of this encounter Care Teams Safety Representative Relationship Specialty Start Date End Date Jody Arora MD [address] [place] [address] [place] [address] PCP - General Family Medicine 11/21/21 documented as of this encounter
--- OUTSIDE RECORDS SUMMARY | 2023-10-31 19:37 | External Medical Summary | Summary of Care ---
Author Name Unknown Organization [facility] Address [address] [place] [address] Phone [phone] Care Team Providers Care Medical Radiation Therapist Name Role Phone Jody Arora MD Primary Care Provide r Encounter Details Date Type Department Care Team (Late st Contact Info) Description 10/02/2023 Refill Family Medicine [address] [phone] Jody Arora MD [address] [place] [address] [place] [address] Allergies No known active allergiesdocumented as [...] 2017 classification ([facility]) Inhale 3 mL via nebulizer every [...] (Demadex)Indications :ESRD needing dialysis ([facility]) Take 4 Tablets by mouth 2 [...] (HCC),COPD, group C, by GOLD 2017 classification (HCC),[place]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) 2.5 mg NEBULIZER PRN 04/24/2023 04/23/2024 Active Albuterol Sulfate (Proventil) (2.5 MG/3ML) 0.083% inhalation solution 2.5 mgIndications:Chronic hypoxemic respiratory failure (HCC),COPD, group C, by GOLD 2017 classification (HCC),[place]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) 2.5 mg NEBULIZER PRN 04/24/2023 04/23/2024 Active documented as of this encounter (statuses as of 10/03/2023) Active Problems Problem Noted Date Diagnosed Date COPD, group D, by GOLD 2017 classification 04/29 Overview: Per COPD GOLD Classification [place]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 States he was advised he was not a surgical candidate. Carotid stenosis, right 07/11/2017 History of stroke 07/11/2017 Overview: TIA vs lacunar stroke diagnosed on head CT in [place] Apr 2017. Follow up MRI [facility] no infarct. Anxiety 07/11/2017 HTN, [...] hospice care as recommended by Pulmonary at [facility]. However we were reviewing his medications and [...] 10/09/2023 12:00 PM EDT Nurse Only Ancillary [address] [place] [address] [place], Nurse [address] [place] [address] 10/10/2023 11:00 AM EDT Office Visit Cardiology, [facility] [address] [place] [address] Augustin Mathis DO [address] [place] [address] 02/10/2024 1:00 PM EST Imaging Radiology [facility] 1st Floor, [place] [facility] [place] [address] 02/25/2024 4:00 PM EST Office Visit Urology, [facility] 132 [facility] [place] [address] Cameron Romeo MD [address] [place] [address] 02/26/2024 1:40 PM EST Office Visit Family Medicine [address] [place] [phone] Jody Arora MD [address] [place] [address] [place] [address] Health Maintenance Due Date Last Done Comments [...] filedocumented as of this encounter Care Teams Medical Radiation Therapist Relationship Specialty Start Date End Date Jody Arora MD [address] [place] [address] [place] [address] PCP - General Family Medicine 11/21/21 documented as of this encounter
--- OUTSIDE RECORDS SUMMARY | 2023-10-31 19:37 | External Medical Summary | Summary of Care ---
Author Name Unknown Organization [facility] Address [address] [place] [address] Phone [phone] Care Team Providers Care Motel Front Desk Attendant Name Role Phone Jody Arora MD Primary Care Provide r Reason for Visit * Reason Comments eRx-Medication Refill Encounter Details Date Type Department Care Team (Late st Contact Info) Description 09/16/2023 Refill Family Medicine [address] [place] [phone] Jody Arora MD [address] [place] [address] [place] [address] Primary insomnia; Anxiety Allergies No known active allergiesdocumented as of this encounter (statuses as of 09/17/2023) Medications Medication Sig Dispensed Refills Start Date [...] GOLD 2017 classification ([facility]) INHALE 1 DOSE BY MOUTH IN THE MORNING AND 1 AT BEDTIME 60 Each 05/28/2023 Active Ventolin HFA 108 (90 Base) MCG/ACT Inhalation Aerosol SolutionIndications: COPD, group D, by GOLD 2017 classification ([facility]) Inhale 2 Puffs by mouth every 4 hours as needed for Wheezing. 18 g 2 05/28/2023 Active Torsemide 20 MG Oral Tablet (Demadex)Indications :ESRD needing dialysis ([facility]) Take 4 Tablets by mouth 2 [...] (HCC),COPD, group C, by GOLD 2017 classification (HCC),[place]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) 2.5 mg NEBULIZER PRN 04/24/2023 04/23/2024 Active Albuterol Sulfate (Proventil) (2.5 MG/3ML) 0.083% inhalation solution 2.5 mgIndications:Chronic hypoxemic respiratory failure (HCC),COPD, group C, by GOLD 2017 classification (HCC),[place]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) 2.5 mg NEBULIZER PRN 04/24/2023 04/23/2024 Active documented as of this encounter (statuses as of 09/17/2023) Active Problems Problem Noted Date Diagnosed Date COPD, group D, by GOLD 2017 classification 04/29 Overview: Per COPD GOLD Classification [place] 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 States he was advised he was not a surgical candidate. Carotid stenosis, right 07/11/2017 History of stroke 07/11/2017 Overview: TIA vs lacunar stroke diagnosed on head CT in [place] Apr 2017. Follow up MRI [facility] no infarct. Anxiety 07/11/2017 HTN, goal below 140/90 08/02/2015 Coronary artery disease Dyslipidemia, goal LDL below 100 documented as of this encounter (statuses as of 09/17/2023) Resolved Problems Problem Noted Date Diagnosed Date [...] as of this encounter (statuses as of 09/17/2023) Immunizations Name Administration Dates Next Due COVID-19 [...] encounter Miscellaneous Notes * Telephone Encounter - Leonidas Gallego [facility] - 09/17/2023 2:56 PM EDT Refused Prescriptions: Disp Refills hydrOXYzine HCl 50 MG Oral Tablet 30 Tab*0 Sig: TAKE 1 TABLET BY MOUTH AT BEDTIME NEEDED FOR INSOMNIARefused By: LEONIDAS GALLEGO for Refusal: Duplicate Request busPIRone HCl 5 MG Oral Tablet 60 Tab*0 Sig: TAKE 1 TABLET BY MOUTH IN THE MORNING AND 1AT BEDTIMERefused By: SAMI LOPEZ for Refusal: RefillNot Appropriate documented in this encounter Plan of Treatment Upcoming Encounters Date Type Department Care Team (Late st Contact Info) Description 10/02/2023 9:30 AM EDT Office Visit Palliative Medicine [facility] [address] [place] [address] Brielle Schmidt MD 400 [facility] [place] [phone] 10/10/2023 11:00 AM EDT Office Visit Cardiology, [facility] 132 [facility] [place] [address] Augustin Mathis, 132 [facility] [place] [address] 02/10/2024 1:00 PM EST Imaging Radiology [facility]st [facility] 132 [facility] [place] [address] 02/25/2024 4:00 PM EST Office Visit Urology, [facility] 132 [facility] [place] [address] Cameron Romeo MD [address] [place] [address] 02/26/2024 1:40 PM EST Office Visit Family Medicine [address] [place] [phone] Jody Arora MD [address] [place] [address] [place] [address] Health Maintenance Due Date Last Done Comments [...] Persistent disorder of initiating or maintaining sleep Anxiety Anxiety state, unspecified documented in this encounter Care Teams Motel Front Desk Attendant Relationship Specialty Start Date End Date Jody Arora MD [address] [place] [address] [place] [address] PCP - General Family Medicine 11/21/21 documented as of this encounter
--- OUTSIDE RECORDS SUMMARY | 2023-10-31 19:37 | External Medical Summary | Summary of Care ---
Author Name Unknown Organization [facility] Address [address] [place] [address] Phone [phone] Care Team Providers Care Cashier And Waiter/Waitress Name Role Phone Jody Arroa MD Primary Care Provide r Reason for Visit * Reason Comments NEW PATIENT * Evaluate & Treat - Unlimited Visits (Within 30 days (routine)) - Authorized Specialty Diagnoses / Procedures Referred By Contac t Referred To Contact Hospice and Palliative Medicine / Palliative Medicine Diagnoses Chronic respiratory failure with hypoxia (HCC) Rogelio Villavicencio MD [address] [place] [address] Referral ID Status Reason Start Date Expiration Date Visits Requested Visits Authorized [id number] Authorized Specialty Services Required 07/10/2023 [id number] Encounter Details Date Type Department Care Team (Late st Contact Info) Description 10/02/2023 9:30 AM EDT Office Visit Palliative Medicine [facility] [address] [place] [address] Brielle Schmidt MD [address] [facility] [place] [address] Palliative care encounter*; ESRD on dialysis (HCC); MOLLY and COPD overlap syndrome (HCC); Chronic hypoxemic respiratory failure (HCC) Allergies No known active allergiesdocumented as [...] at noon. 120 Tablet 5 4 Active Renal Vitamin 0.8 MG Oral Tablet [...] meals. Take 1 with snack. 4 Active Eliquis 2.5 MG Oral Tablet Take 1 Tablet by mouth in the morning and 1 Tablet before bedtime. 4 Active LORazepam 0.5 MG Oral Tablet (Ativan)Indications :Anxiety 1 tablet 15-20 minutes before dialysis sessions 30 Tablet 4 Active Metoprolol Tartrate 25 MG Oral Tablet (Lopressor) Take 1 Tablet by mouth in the morning and 1 Tablet before bedtime. 60 Tablet 5 4 Active methylPREDNISolone 4 MG Oral Tablet Therapy Pack (Medrol Dosepack) follow package directions 21 Tablet 4 10/02/19 24 Discontinued traMADol HCl 50 MG Oral Tablet (Ultram)Indications :Pain in joint of right shoulder Take 1 Tablet by mouth at bedtime as needed for Pain, Severe. 30 Tablet 4 10/02/19 24 Discontinued hydrOXYzine HCl 25 MG Oral Tablet Take 1 Tablet by mouth daily. Prior to dialysis 4 10/02/19 24 Discontinued busPIRone HCl 5 MG Oral Tablet (Buspar)Indications :Anxiety Take 1 Tablet by mouth in the morning and 1 Tablet before bedtime. 60 Tablet 5 4 10/02/19 24 Discontinued hydrOXYzine HCl 50 MG Oral TabletIndications:P rimary insomnia TAKE 1 TABLET BY MOUTH AT BEDTIME NEEDED FOR INSOMNIA 30 Tablet 3 4 10/02/19 24 Discontinued Hospital, Clinic, or Other Facility Administered Medication Ordered Dose Route Frequency Start Date End Date Status Albuterol Sulfate (Proventil) (5 MG/ML) 0.5% *conc* inhalation solution 2.5 mgIndications:Chronic hypoxemic respiratory failure (HCC),COPD, group C, by GOLD 2017 classification (HCC),[place]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) 2.5 mg NEBULIZER PRN 04/24/2023 04/23/2024 Active Albuterol Sulfate (Proventil) (2.5 MG/3ML) 0.083% inhalation solution 2.5 mgIndications:Chronic hypoxemic respiratory failure (HCC),COPD, group C, by GOLD 2017 classification (HCC),[place]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) 2.5 mg NEBULIZER PRN 04/24/2023 04/23/2024 Active documented as of this encounter (statuses as of 10/02/2023) Active Problems Problem Noted Date Diagnosed Date COPD, group D, by GOLD 2017 classification 04/29 Overview: Per COPD GOLD Classification 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 States he was advised he was not a surgical candidate. Carotid stenosis, right 07/11/2017 History of stroke 07/11/2017 Overview: TIA vs lacunar stroke diagnosed on head CT in [place] [facility] 2017[facility] No 05/20/2023 Does the household have a [facility] healthcare facility[facility] source of income? (Household - for ages [...] Sign Reading Time Taken Comments Blood Pressure 105/49 10/02/2023 9:31 AM EDT Pulse 112 10/02/2023 9:31 AM EDT Temperature 36.1 C (97 F) 10/02/2023 9:31 AM EDT Respiratory Rate 18 10/02/2023 9:31 AM EDT Oxygen Saturation 83% 10/02/2023 9:31 AM EDT Inhaled Oxygen Concentration - - Weight 91.6 kg (202 lb) 10/02/2023 9:31 AM EDT Height - - Body Mass Index 34.67 05/29/2023 1:38 PM EDT documented in this encounter Patient Instructions * Patient Instructions* Cherise Pascual LPN - 10/02/2023 9:34 AM EDT Our Palliative Medicine Clinic is available Saturday through Saturday during business hours, so we are unavailable on weekends and holidays. Please ensure that you request refills early in the week as itmay take 1-2 days for them to be addressed and filled, for authorizations to be approved, or for the pharmacy to order them if needed. You can contact our office at [phone], which is our clinic in [place], or you can message us on [facility]. If you have an emergency outside of these hours, we recommend calling your primary care clinic, Oncology office, or going to the ER if you have a medical emergency. documented in this encounter Progress Notes * Brielle Schmidt MD - 10/02/2023 9:25 AM EDT Images from the original note were not included. Palliative Medicine Outpatient Consult Note [facility] Palliative Medicine Outreach [address] [place] [address] Name: Justin Pinedo Date: 10/02/2023 Referring Provider: Rogelio Villavicencio MD Reason for Consult: Goals of care; Pain and symptom management Patient accompanied by [facility], history obtained from patient and HPI: Justin Pinedo is a 83 year old male with a primary diagnosis of chronic hypoxic respiratory failure, as well as ESRD, on dialysis, COPD, and others. Feels he is doing pretty well. Understands he has bad lungs, a kidney that is not working, on dialysis. Now has atrial fibrillation, as well as had a recent shoulder issue and had an injection, pain resolved but can't move arm as much. 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 Did that for 2 years and it is going well. Has a lot of good days, can do whatever he wants to do, enjoys working. Used to golf and fly fish but can't anymore since he would fall. Dialysis is going OK, this week went M///Sat since legs are very swollen. Has a R arm fistula. Was in the hospital recently, legs were improved, but lately have been swollen. HR goes very high as well, was upto 205. Reports he was told to hold his Metoprolol, does not remember why Wears oxygen at 4L constantly, denies dyspnea, wears it 24/. (Of note, not wearing it in the office) Cardiology: Dr Mathis Nephro: Dr Bonner Pulmonary: Dr Villavicencio, [facility] PCP: Dr Arora Palliative symptoms: Pain: none Nausea/Vomiting: no Appetite: no Constipation: no Confusion: no Sleep issues: no Dyspnea: no, despite o2 sats being 83% in office Mood issues: no Falls: no Other: Functional Status: - Palliative Performance Scale: 80% - Activities of Daily Living: (bolded items indicate areas of independence) 08/21 BADL (transfer, toilet, continence, bathe, dress self, feed self) 09/21 IADL (meds, transport, telephone, shop, housekeeping, meal prep, money management) - Ambulates: with cane SHx: Family Support: 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 Had 4 kids, 1 son passed, has 3 girls, daughter Damaris, 2 other daughters Luz and Yolette live out of town. Has a puppy named Estrella. 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 Very functional. Favorite activities: Working PHYSICAL EXAMINATION: Constitutional: BP 105/49 (BP Site: Left Arm, BP Position: Sitting, BP Cuff Size: Regular) | Pulse 112 | Temp 36.1 C (97 F) (Tympanic) | Resp 18 | Wt 91.6 kg (202 lb) | SpO2 83% | BMI 34.67 kg/m | BSA 2.03 m , no acute distress HENT: normocephalic, atraumatic. Eyes: anicteric, sclera and conjunctiva normal. Neck: no stridor Chest: normal respiratory effort Abdominal: nondistended Extremities: no edema Neuro: alert, oriented to person, place, and time Psych: normal mood and affect Data Review: External notes reviewed: - Reviewed notes from Dr Villavicencio, Pulmonary at [facility], he has patchy infiltrates int he RLL and RML that are not resolving, and possibly a chronic aspiration pneumonitis, as wel as chronic hypoxic respiratory failure but [facility] very [facility] He has volume overload and was considering dialysis. - Reviewed notes from Dr Castorena, 08/22, pt had an injection which helped Lab / Imaging Results: ECHO AT [facility] 08/27/23 Ef 60-65% LV Hypertrophy L atrium is moderately dilated Aortic valve sclerosis moderate, w/o significant aortic valvular stenosis Information obtained from pts daughter Dr. Vargasfer Khris (Pediatrics at [facility]) for collateral history Discussion with other team members: I discussed patient with PCP, Cardiology about pts elevated HR Decision-making Capacity: Does Patient have Decisional Capacity? y Does Patient have a Healthcare Agent? Y, Discussion with Patient & Family: Met with patient and Introduced role of Outpatient Palliative Medicine team and reviewed symptoms as above. Reviewed patient's/family's understanding of current medical situation. He has a good understanding of his care, we did reviewed the basic to the atrial fibrillation as well as dialysis, he is okay with continuing dialysis at this time as he has only been on it for 6 weeks. Advanced Care Planning: AD: He does not have any paperwork at this time, he says that his knows what he would want At this time he is okay with a trial of CPR if it would bring him back, and if he declined to then be kept comfortable. POLST: Not applicable ASSESSMENT/PLAN: Justin Pinedo is a/an 83 year old male referred for consultation to Palliative Medicine with the primary diagnosis of: Chronic hypoxic respiratory failure, on 4 L oxygen ESRD, on in-center hemodialysis Recently diagnosed atrial fibrillation with RVR, has not been taking his metoprolol but is unsure why it was stopped. He is taking renal dose Eliquis. Retained functional status Peripheral edema Goals of care - wants to continue life prolonging tx, is ok with attempts at life support if thingsworsened Recommendations: Reviewed ACP as above - he does not want hospice at this time. To go onto hospice he would need to stop dialysis as well. No symptom management changes at this time Will inform his team about his elevated HR Will leave follow up as needed. Did discuss his case with his daughter Dr Pinedo as well. Thank you for this consult. We appreciate the opportunity to take part in the care of your patient. Note routed back to referring provider Rogelio Villavicencio MD and PCP Jody Arora MD I spent a total of 61 minutes on the date of service in preparation, delivery, and documentation ofthe care provided to Justin Pinedo excluding any time spent in the performance of separately billed services. Brielle Schmidt MD [facility] Palliative Medicine [phone] documented in this encounter Nursing Notes * Madison Nino MED ASSIST - 10/02/2023 9:33 AM EDT Patient identifed by name and birthdate Do you have any concerns about pain management for today's visit? Yes. Patient instructed to discuss pain concerns with provider during the visit today Living Will or Advance Directive for Health Care as noted on the problem list. [facility] is a way you can talk to your provider on line through e-mail. Would you like to sign up? I can activate it for you? ALREADY ACTIVE Filed Vitals: 10/02/23 0931 BP: 105/49 Pulse: 112 Resp: 18 Temp: 36.1 C (97 F) TempSrc: Tympanic SpO2: 83% Weight: 91.6 kg (202 lb) Patient was instructed to not get up on the exam table/exam chair until directed and assisted by their provider; patient is to remain seated in the chair/ wheelchair/ exam table/ exam chair for fall prevention and safety reasons. Patient is aware to have assistance to step down off exam table/exam chair with personnel. Patient voiced full comprehension of instructions. documented in this encounter Plan of Treatment Upcoming Encounters Date Type Department Care Team (Late st Contact Info) Description 10/10/2023 11:00 AM EDT Office Visit Cardiology, [facility] [address] [place] [address] Augustin Mathis, [address] [place] [address] 02/10/2024 1:00 PM EST Imaging Radiology [facility] 1st [facility] [place] [address] [place] [address] 02/25/2024 4:00 PM EST Office Visit Urology, [facility] [address] [place] [address] Cameron Romeo MD [address] [place] [address] 02/26/2024 1:40 PM EST Office Visit Family Medicine [address] [place] [address] Jody Arora MD [address] [place] [address] [place] [address] Scheduled Referrals Name Type Priority Associated Diagnoses [...] as of this encounter Visit Diagnoses Diagnosis Palliative care encounter- Primary Encounter for palliative care ESRD on dialysis (HCC) End stage renal disease MOLLY and COPD overlap syndrome (HCC) Chronic hypoxemic respiratory failure (HCC) Chronic respiratory failure documented in this encounter Care Teams Cashier And Waiter/Waitress Relationship Specialty Start Date End Date Jody Arora MD [address] [place] [address] [place] [phone] PCP - General Family Medicine 11/21/21 documented as of this encounter
--- OUTSIDE RECORDS SUMMARY | 2023-10-31 19:38 | External Medical Summary | Summary of Care ---
Author Name Unknown Organization [facility] Address [address] [place] [address] Phone [phone] Care Team Providers Care Prepress Specialist Name Role Phone Jody Arora MD Primary Care Provide r Encounter Details Date Type Department Care Team (Late st Contact Info) Description 09/17/2023 Orders Only PATIENT PORTAL DO NOT DELETE THIS DEPT USED BY [place] WOOD [id number] Allergies No known active allergiesdocumented as of [...] Tablet before bedtime. 60 Tablet 08/16/2023 Active Metoprolol Tartrate 25 MG Oral Tablet (Lopressor) Take 1 Tablet by mouth in the morning and 1 Tablet before bedtime. 08/29/2023 Active Eliquis 2.5 MG Oral Tablet Take [...] (HCC),COPD, group C, by GOLD 2017 classification (HCC),[place]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) 2.5 mg NEBULIZER PRN 04/24/2023 04/23/2024 Active Albuterol Sulfate (Proventil) (2.5 MG/3ML) 0.083% inhalation solution 2.5 mgIndications:Chronic hypoxemic respiratory failure (HCC),COPD, group C, by GOLD 2017 classification (HCC),[place]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) 2.5 mg NEBULIZER PRN 04/24/2023 04/23/2024 Active documented as of this encounter (statuses as of 09/17/2023) Active Problems Problem Noted Date Diagnosed Date COPD, group D, by GOLD 2017 classification 04/29 Overview: Per COPD GOLD Classification [place] miners' pneumoconiosis 04/24/2023 Papillary renal cell carcinoma [...] lacunar stroke diagnosed on head CT in [place] Apr 2017. Follow up MRI [facility] [...] 9:30 AM EDT Office Visit Palliative Medicine [facility] [address] [place] [address] Brielle Schmidt MD [address] [facility] [place] [address] 10/10/2023 11:00 AM EDT Office Visit Cardiology, [facility] [address] [facility] [place] [address] Augustin Mathis DO 132 [facility] [place] [address] 02/10/2024 1:00 PM EST Imaging Radiology [facility] 1st [facility] [address] [facility] [place] [address] 02/25/2024 4:00 PM EST Office Visit Urology, [facility] [address] [place] [address] Cameron Romeo MD [address] [place] [address] [place] [address] 02/26/2024 1:40 PM EST Office Visit Family Medicine [address] [place] [phone] Jody Arora MD [address] [place] [address] [place] [address] Health Maintenance Due Date Last Done Comments Alpha-1 Antitrypsin 1958 *COPD SEVERITY VERIFIED BY PFT 07/16/2020 Hepatitis B (3 of 3 - 19+ 3-dose series) 03/20/2023 01/23/2023, 01/08/2018 COVID-19 Vaccine ( season) 2023 01/03/2023, 01/10/2021, 05/24/2020, Additional history exists GFR 02/27/2024 08/28/2023, 05/0 [...] filedocumented as of this encounter Care Teams Prepress Specialist Relationship Specialty Start Date End Date Jody Arora MD [address] [place] [address] [place] [phone] PCP - General Family Medicine 11/21/21 documented as of this encounter
--- OUTSIDE RECORDS SUMMARY | 2023-10-31 19:38 | External Medical Summary | Summary of Care ---
Author Name Unknown Organization [facility] Address [address] [place] [address] Phone [phone] Care Team Providers Care Pipe Coverer Name Role Phone Jody Perales MD Primary Care Provide r Reason for Visit * Reason Onset Date Comments Medication Refill 09/17/2023 Encounter Details Date Type Department Care Team (Late st Contact Info) Description 09/17/2023 Refill Family Medicine [address] [place] [address] Jody Perales MD [address] [place] [address] [place] [address] Anxiety; Primary insomnia Allergies No known active allergiesdocumented [...] Oral Tablet (Demadex)Indication s:ESRD needing dialysis ([facility]) Take 4 Tablets by mouth 2 [...] before dialysis sessions 30 Tablet 09/03/2023 Active busPIRone HCl 5 MG Oral Tablet (Buspar)Indications :Anxiety Take 1 Tablet by mouth in the morning and 1 Tablet before bedtime. 60 Tablet 5 09/17/2023 Active Metoprolol Tartrate 25 MG Oral Tablet (Lopressor) Take 1 Tablet by mouth in the morning and 1 Tablet before bedtime. 60 Tablet 5 09/17/2023 Active hydrOXYzine HCl 50 MG Oral TabletIndications:P rimary insomnia TAKE 1 TABLET BY MOUTH AT BEDTIME NEEDED FOR INSOMNIA 30 Tablet 3 09/17/2023 Active hydrOXYzine HCl 50 MG Oral TabletIndications:P [...] (HCC),COPD, group C, by GOLD 2017 classification (HCC),[place]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) 2.5 mg NEBULIZER PRN 04/24/2023 04/23/2024 Active Albuterol Sulfate (Proventil) (2.5 MG/3ML) 0.083% inhalation solution 2.5 mgIndications:Chronic hypoxemic respiratory failure (HCC),COPD, group C, by GOLD 2017 classification (HCC),[place]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) 2.5 mg NEBULIZER PRN 04/24/2023 04/23/2024 Active documented as of this encounter (statuses as of 09/17/2023) Active Problems Problem Noted Date Diagnosed Date COPD, group D, by GOLD 2017 classification 04/29 Overview: Per COPD GOLD Classification [place] miners' pneumoconiosis 04/24/2023 Papillary renal cell carcinoma [...] at [facility] per patient "kidney cancer". States he was advised he was not a surgical candidate. Carotid stenosis, right 07/11/2017 History of stroke 07/11/2017 Overview: TIA vs lacunar stroke diagnosed on head CT in [place] Apr 2017. Follow up MRI [facility] no infarct. Anxiety 07/11/2017 HTN, [...] Telephone Encounter - Jody Perales MD - 09/17/2023 11:44 AM EDT Signed Prescriptions: Disp Refills busPIRone HCl 5 MG Oral Tablet (Buspar) 60 Tab*5 Sig: Take 1 Tablet by mouth in the morning and 1 Tablet before bedtime. Authorizing Provider: JODY PERALES Metoprolol Tartrate 25 MG Oral Tablet (Lop*60 Tab*5 Sig: Take 1 Tablet by mouth in the morning and 1 Tablet before bedtime. Authorizing Provider: JODY COREY hydrOXYzine HCl 50 MG Oral Tablet 30 Tab*3 Sig: TAKE 1 TABLET BY MOUTH AT BEDTIME NEEDED FOR INSOMNIA Authorizing Provider: JODY PERALES * Telephone Encounter - Christelle Shirley RN - 09/17/2023 11:39 AM EDTPending Prescriptions: Disp Refills busPIRone HCl 5 MG Oral Tablet (Buspar) 60 Tab*5 Sig: Take 1 Tablet by mouth in the morning and 1 Tablet before bedtime. Metoprolol Tartrate 25 MG Oral Tablet (Lop*60 Tab*5 Sig: Take 1 Tablet by mouth in the morning and 1 Tablet before bedtime. hydrOXYzine HCl 50 MG Oral Tablet 30 Tab*3 Sig: TAKE 1 TA BLET BY MOUTH AT BEDTIME NEEDED FOR INSOMNIA * Telephone Encounter - Sandra Escalante OSA - 09/17/2023 11:34 AM EDT Did you pend patient's preferred pharmacy and medication before forwarding?yes Pharmacy: [facility] [address] [place] [address] Pending Prescriptions: Disp Refills busPIRone HCl 5 MG Oral Tablet (Buspar) 60 Tab*0 Sig: Take 1 Tablet by mouth in the morning and 1 Tablet before bedtime. Metoprolol Tartrate 25 MG Oral Tablet (Lo* Sig: Take 1 Tablet by mouth in the morning and 1 Tablet before bedtime. hydrOXYzine HCl 50 MG Oral Tablet 30 Tab*3 Last Visit: 09/03/2023 (in office), 03/09/2022 (telemedicine) Next Visit: 02/26/2024 If no future appointments scheduled, and last appointment is greater than a year ago, please schedule patient for a follow-up appointment Last date the medication was ordered: 2 Is this request for a controlled substance?No Urine Drug Screen:No results found for this or any previous visit. Patient Phone Numbers Labs: Lab Results Component Value Date/Time CREAT 4.08 (A) 08/28/2023 12:00 AM CREAT 2.5 (H) 03/24/2020 12:33 PM POTASSIUM 5.7 (A) 08/28/2023 12:00 AM POTASSIUM 4.8 03/24/2020 12:33 PM TSH 1.900 09/07/2020 12:00 AM TSH 1.49 01/08/2019 10:32 AM LDLCALC 65 07/23/2023 02:30 PM LDLCALC 19.60 09/07/2020 12:00 AM LDLDIRECT 38 09/07/2020 12:00 AM ALT 22 12/07/2021 11:15 AM ALT 26 03/24/2020 12:33 PM HGBA1C 6.6 (H) 07/23/2023 02:30 PM HGBA1C 6.2 (A) 09/07/2020 12:37 PM documented in this encounter Plan of Treatment Upcoming Encounters Date Type Department Care Team (Late st Contact Info) Description 10/02/2023 9:30 AM EDT Office Visit Palliative Medicine [facility] [address] [place] [id number] Brielle Schmidt MD [address] [place] [address] [place] [address] 10/10/2023 11:00 AM EDT Office Visit Cardiology, [facility] 132 [facility] [place] [address] Augustin Mathis, 132 [facility] [place] [address] 02/10/2024 1:00 PM EST Imaging Radiology [facility] 1st [facility] 132 [facility] [place] [address] 02/25/2024 4:00 PM EST Office Visit Urology, [address] [place] [address] Cameron Romeo MD [address] [place] [address] 02/26/2024 1:40 PM EST Office Visit Family [address] [place] [phone] Jody Perales MD [address] [place] [address] [place] [address] Health Maintenance Due Date Last Done Comments [...] Visit Diagnoses Diagnosis Anxiety Anxiety state, unspecified Primary insomnia Persistent disorder of initiating or maintaining sleep documented in this encounter Care Teams Pipe Coverer Relationship Specialty Start Date End Date Jody Perales MD [address] [place] [address] [place] [address] PCP - General Family Medicine 11/21/21 documented as of this encounter
--- OUTSIDE RECORDS SUMMARY | 2023-10-31 19:40 | External Medical Summary | Summary of Care ---
Author Name Unknown Organization [facility] [address] [facility] [address] Phone [phone] Care Team Providers Care Gate Supervisor Name Role Phone Jody Arora MD Primary Care Provide r Encounter Details Date Type Department Care Team (Late st Contact Info) Description 09/12/2023 Orders Only Nephrology [address] [place] [address] ZeClarice munoz PA-C [address] [place] [address] Anemia of chronic renal failure, stage 4 (severe) ([facility])* Allergies No known active allergiesdocumented as of this encounter (statuses as of 09/12/2023) Medications Medication Sig Dispensed Refills Start Date End Date Status nitroglycerin (NITROSTAT) 0.4 MG SUBL 1 Tablet. 08/19/2018 Active Melatonin 10 MG Oral Capsule Take 1 Capsule by mouth at bedtime. Active Ipratropium-Albutero l 0.5-2.5 (3) MG/3ML Inhalation Solution (Duoneb)Indications: Chronic hypoxemic respiratory failure (HCC),COPD, group C, by GOLD 2017 classification ([facility]) Inhale 3 mL via nebulizer every [...] GOLD 2017 classification ([facility]),Stonewall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) 2.5 mg NEBULIZER PRN 04/24/2023 04/23/2024 Active Albuterol Sulfate (Proventil) (2.5 MG/3ML) 0.083% inhalation solution 2.5 mgIndications:Chronic hypoxemic respiratory failure (HCC),COPD, group C, by GOLD 2017 classification (HCC),Stonewall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) 2.5 mg NEBULIZER PRN 04/24/2023 04/23/2024 Active documented as of this encounter (statuses as of 09/12/2023) Active Problems Problem Noted Date Diagnosed Date COPD, group D, by GOLD 2017 classification 04/29 Overview: Per COPD GOLD Classification 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 States he was advised he was not a surgical candidate. Carotid stenosis, right 07/11/2017 History of stroke 07/11/2017 Overview: TIA vs lacunar stroke diagnosed on head CT in [place] Apr 2017. Follow up [facility] no infarct. Anxiety 07/11/2017 HTN, goal below 140/90 08/02/2015 Coronary artery disease Dyslipidemia, goal LDL below 100 documented as of this encounter (statuses as of 09/12/2023) Resolved Problems Problem Noted Date Diagnosed Date [...] as of this encounter (statuses as of 09/12/2023) Immunizations Name Administration Dates Next Due COVID-19 [...] 09/16/2023 1:25 PM EDT NeuroDiagnostic Study Neurophysiology [facility] 200 [facility] [address] Miguel Dan MD 200 [place] [address] 10/02/2023 9:30 AM EDT Office Visit Palliative Medicine [facility] [address] [place] [phone] Brielle Schmidt MD [address] [facility] [place] [address] 10/10/2023 11:00 AM EDT Office Visit Cardiology, [facility] 132 [facility] [place] [address] Augustin Mathis DO 132 [facility] [place] [address] 02/10/2024 1:00 PM EST Imaging Radiology [facility] 1st [facility] [address] [facility] [place] [address] 02/25/2024 4:00 PM EST Office Visit Urology, [facility] 132 [facility] [place] [address] Cameron Romeo MD [address] [place] [address] 02/26/2024 1:40 PM EST Office Visit Family Medicine [address] [place] [phone] Jody Arora MD [address] [place] [address] [place] [address] Scheduled Orders Name Type Priority Associated Diagnoses Orde r Schedule CBC WITH WBC DIFFERENTIAL Lab STAT Anemia of chronic renal failure, stage 4 (severe) (HCC) Expected: 09/12/2023, Expires: 09/11/2024 IRON SCREEN, INCLUDING TIBC Lab STAT Anemia of chronic renal failure, stage 4 (severe) (HCC) Expected: 09/12/2023, Expires: 09/11/2024 Health Maintenance Due Date Last Done Comments Alpha-1 Antitrypsin 1958 *COPD SEVERITY VERIFIED BY PFT 07/16/2020 Hepatitis B (3 of 3 - 19+ 3-dose series) 03/20/2023 01/23/2023, 01/08/2018 COVID-19 Vaccine ( season) 2023 01/03/2023, 01/10/2021, 05/24/2020, Additional history exists GFR 02/27/2024 08/28/2023, 050 [...] as of this encounter Visit Diagnoses Diagnosis Anemia of chronic renal failure, stage 4 (severe) (HCC)- Primary documented in this encounter Care Teams Gate Supervisor Relationship Specialty Start Date End Date Jody Arora MD [address] [place] [address] [place] [phone] PCP - General Family Medicine 11/21/21 documented as of this encounter
--- OUTSIDE RECORDS SUMMARY | 2023-10-31 19:40 | External Medical Summary | Summary of Care ---
Author Name Unknown Organization [facility] Address [address] [place] [address] Phone [phone] Care Team Providers Care Stave Bolt Equalizer Name Role Phone Jody Arora MD Primary Care Provide r Reason for Visit * Reason Onset Date Comments Advice 09/10/2023 Encounter Details Date Type Department Care Team (Late st Contact Info) Description 09/10/2023 Telephone Nephrology, [facility] 200 [place] [address] Services, Scheduling [address] [place] [address] Advice Allergies No known active allergiesdocumented as of this encounter (statuses as of 09/10/2023) Medications Medication Sig Dispensed Refills Start Date [...] C, by GOLD 2017 classification ([facility]) INHALE 1 DOSE BY MOUTH IN THE MORNING AND 1 AT BEDTIME 60 Each 05/28/2023 Active Ventolin HFA 108 (90 Base) MCG/ACT Inhalation Aerosol SolutionIndications: COPD, group D, by GOLD 2017 classification ([facility]) Inhale 2 Puffs by mouth every 4 hours as needed for Wheezing. 18 g 2 05/28/2023 Active Torsemide 20 MG Oral Tablet (Demadex)Indications :ESRD needing dialysis ([facility]) Take 4 Tablets by mouth [...] C, by GOLD 2017 classification ([facility]),Major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) 2.5 mg NEBULIZER PRN 04/24/2023 04/23/2024 Active Albuterol Sulfate (Proventil) (2.5 MG/3ML) 0.083% inhalation solution 2.5 mgIndications:Chronic hypoxemic respiratory failure (HCC),COPD, group C, by GOLD 2017 classification ([facility]),Major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) 2.5 mg NEBULIZER PRN 04/24/2023 04/23/2024 Active documented as of this encounter (statuses as of 09/10/2023) Active Problems Problem Noted Date Diagnosed Date COPD, group D, by GOLD 2017 classification 04/29 Overview: Per COPD GOLD Classification 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 States he was advised he was not a surgical candidate. Carotid stenosis, right 07/11/2017 History of stroke 07/11/2017 Overview: TIA vs lacunar stroke diagnosed on head CT in [place] Apr 2017. Follow [facility] no infarct. Anxiety 07/11/2017 HTN, goal below 140/90 08/02/2015 Coronary artery disease Dyslipidemia, goal LDL below 100 documented as of this encounter (statuses as of 09/10/2023) Resolved Problems Problem Noted Date Diagnosed Date [...] as of this encounter (statuses as of 09/10/2023) Immunizations Name Administration Dates Next Due COVID-19 [...] 09/16/2023 1:25 PM EDT NeuroDiagnostic Study Neurophysiology [facility] [place] 200 [facility] [place] [address] Miguel Dan MD [address] [place] [address] 10/02/2023 9:30 AM EDT Office Visit Palliative Medicine [facility] 200 [place] [phone] Brielle Schmidt MD 400 [facility] [place] [address] 10/10/2023 11:00 AM EDT Office Visit Cardiology, [facility] 132 [facility] [place] [address] Augustin Mathis, 132 [facility] [place] [address] 02/10/2024 1:00 PM EST Imaging Radiology [facility] 1st [facility] 132 [facility] [place] [address] 02/25/2024 4:00 PM EST Office Visit Urology, [facility] 132 [facility] [place] [address] Cameron Romeo MD [address] [address] [place] [address] 02/26/2024 1:40 PM EST Office Visit Family Medicine [address] [phone] Jody Arora MD [address] [place] [address] [place] [address] 04/09/2024 2:20 PM EST Office Visit Nephrology [address] [place] [address] Rosy Patel MD [facility] [address] Health Maintenance Due Date Last Done Comments [...] filedocumented as of this encounter Care Teams Stave Bolt Equalizer Relationship Specialty Start Date End Date Jody Arora MD [address] [place] [address] [place] [phone] PCP - General Family Medicine 11/21/21 documented as of this encounter
--- OUTSIDE RECORDS SUMMARY | 2023-10-31 19:40 | External Medical Summary | Summary of Care ---
Author Name Unknown Organization [facility] Address [address] [place] [address] Phone [phone] Care Team Providers Care Edge Burnisher Name Role Phone Jody Arora MD Primary Care Provide r Reason for Visit * Reason Onset Date Comments Appointment 07/15/2023 Return in about 2 months (around 09/14/2023) for clinic visit w/ . Check-out Comments: WaitlistMD only Encounter Details Date Type Department Care Team (Late st Contact Info) Description 07/15/2023 Telephone Nephrology [address] [place] [address] Rosy Patel MD 200 [facility] [place] [address] Appointment (Return in about 2 months [...] classification ([facility]) Inhale 3 mL via nebulizer [...] AND 2 BEFORE BEDTIME 120 Tablet 4 Active Rosuvastatin Calcium 10 MG Oral Tablet (Crestor) Take 1 Tablet by mouth in the morning. 90 Tablet 1 4 Active oxygen IN GAS Use 4 L/min(Oxygen) as directed. Uses "in the evening" Active hydrOXYzine HCl 50 MG Oral TabletIndications: [...] MG Oral Tablet (Demadex)Indicatio ns:ESRD needing dialysis ([facility]) Take 4 Tablets by mouth 2 times a day in the morning and at noon. 120 Tablet 5 4 Active Ventolin HFA 108 (90 Base) MCG/ACT Inhalation Aerosol SolutionIndication s:COPD exacerbation (HCC) Inhale by mouth 2 Puffs every 4 hours as needed for Wheezing. 18 g 1 2 024 Discontinued(Me dication List Clean Up) Carvedilol 3.125 MG Oral Tablet (Coreg) Take 1 tablet by mouth twice daily with food 180 Tablet 1 3 024 Discontinued Spiriva Respimat 2.5 MCG/ACT Inhalation Aerosol Solution (Tiotropium [place] Monohydrate) Inhale 2 Puffs by mouth in the morning. 4 g 2 4 024 Albuterol Sulfate (2.5 MG/3ML) 0.083% Inhalation Nebulization [...] GOLD 2017 classification ([facility]),Major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) 2.5 mg NEBULIZER PRN 04/24/2023 04/23/2024 Active Albuterol Sulfate (Proventil) (2.5 MG/3ML) 0.083% inhalation solution 2.5 mgIndications:Chronic hypoxemic respiratory failure (HCC),COPD, group C, by GOLD 2017 classification (HCC),Major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) 2.5 mg NEBULIZER PRN [...] renal mass 07/11/2017 Overview: 2018 biopsy at [facility] per patient "kidney cancer". States he was advised he was not a surgical candidate. Carotid stenosis, right 07/11/2017 History of stroke 07/11/2017 Overview: TIA vs lacunar stroke diagnosed on head CT in [place] Apr 2017. Follow up MRI [facility] [...] encounter Miscellaneous Notes * Telephone Encounter - Venu Dempsey OSA - 09/10/2023 11:34 AM EDT Per Gabby Mayfield, I cx'd the Mar 2024 appt for Gabby stated he is now on dialysis and is no longer being seen in clinic. * Telephone Encounter - Gabby Sosa RN - 07/19/2023 9:11 AM EDT Spoke with Poppy at [facility]. Information confirmed. * Telephone Encounter - Gabby Sosa RN - 07/18/2023 3:40 PM EDT Attempted tp call [facility] back. Left message. Pt is aware that the information has been sent to get him established for HD in [place] starting next week. * Telephone Encounter - Lita Palacios OSA - 07/18/2023 2:30 PM EDT Good afternoon, Hilario from [facility] on the line, she is asking for a call back. She can be reached at [phone] ext [phone]. Thank you * Telephone Encounter - Gabby Sosa RN - 07/18/2023 9:34 AM EDT Quiana RN at [facility] notified this morning of projected start date for this patient. Attempted to call pt and LMAM with call back number. Admission packet faxed to [facility]. * Telephone Encounter - Rosy Patel MD - 07/17/2023 1:12 PM EDT Pls arrange earlier appt per OV note in case he does not stay on dialysis Pls send paperowrk to [facility] [place] 3 days weekly; frail patient; will [...] PM EDT NeuroDiagnostic Study Neurophysiology [facility] [place] [address] [place], [place] [address] Miguel Dan MD [address] [place] [address] 10/02/2023 9:30 AM EDT Office Visit Palliative Medicine [facility] 200 [facility] [place] [phone] Brielle Schmidt MD 400 [facility] [place] [address] 10/10/2023 11:00 AM EDT Office Visit Cardiology, [facility] 132 [place] [address] Augustin Mathis, 132 [facility] [place] [address] 02/10/2024 1:00 PM EST Imaging Radiology [facility] 1st [facility] 132 [facility] [place] [address] 02/25/2024 4:00 PM EST Office Visit Urology, [facility] 132 [place] [address] Cameron Romeo MD [address] [place] [address] [place] [address] 02/26/2024 1:40 PM EST Office Visit Family Medicine [address] [place] [phone] Jody Arora MD [address] [place] [address] [place] [address] Health Maintenance Due Date Last Done Comments [...] Nephrology Referral 07/14/2024 07/15/2023 Hgb 08/27/2024 08/28/2023, 0 06/2023, 02/25/2023, Additional history exists O2 ASSESSMENT [...] filedocumented as of this encounter Care Teams Edge Burnisher Relationship Specialty Start Date End Date Jody Arora MD [address] [place] [address] [place] [address] PCP - General Family Medicine 11/21/21 documented as of this encounter
--- OUTSIDE RECORDS SUMMARY | 2023-10-31 19:41 | External Medical Summary | Summary of Care ---
Author Name Unknown Organization [facility] Address [address] [place] [address] Phone [phone] Care Team Providers Care Project Coordinator Name Role Phone Jody Arora MD Primary Care Provide r Reason for Referral * Evaluate & Treat - Unlimited Visits (Within 30 days (routine)) - Authorized Specialty Diagnoses / Procedures Referred By Contjesika t Referred To Contact Cardiovascular Medicine / Cardiology Diagnoses Atrial fibrillation, unspecified type (HCC) Jody Arora MD [address] [place] [address] [place] [id number] Referral ID Status Reason Start Date Expiration Date Visits Requested Visits Authorized [id number] Authorized Specialty Services Required 09/03/[phone] Question Answer Referral Priority Within 30 days (routine) Where should this appointment be scheduled? [facility] To which of the following clinics are you referring your patient? General Cardiology Clinic Reason for Visit * Reason Onset Date Comments Hospital Follow-Up Hospital Follow-Up 09/03/2023 Encounter Details Date Type Department Care Team (Late st Contact Info) Description 09/03/2023 1:40 PM EDT Office Visit Family Medicine [address] [place] [phone] Jody Arora MD [address] [place] [address] [place] [phone] Hospital discharge follow-up*; Atrial fibrillation, unspecified type ([facility]); Anxiety; Chronic hypoxemic respiratory failure ([facility]); ESRD (end stage renal disease) ([facility]) Allergies No known active allergiesdocumented as of this encounter (statuses as of 09/03/2023) Medications Medication Sig Dispensed Refills Start Date [...] :COPD, group C, by GOLD 2017 classification ([facility]) INHALE 1 DOSE BY MOUTH IN THE MORNING AND 1 AT BEDTIME 60 Each 4 Active Ventolin HFA 108 (90 Base) MCG/ACT Inhalation Aerosol SolutionIndication s:COPD, group D, by GOLD 2017 classification ([facility]) Inhale 2 Puffs by mouth every 4 hours as needed for Wheezing. 18 g 2 4 Active Torsemide 20 MG Oral Tablet (Demadex)Indicatio ns:ESRD needing dialysis ([facility]) Take 4 Tablets by mouth 2 times a day in the morning and at noon. 120 Tablet 5 4 Active methylPREDNISolone 4 MG Oral Tablet Therapy Pack (Medrol Dosepack) follow package directions 21 Tablet 4 Active traMADol HCl 50 MG Oral Tablet (Ultram)Indication s:Pain in joint of right shoulder Take 1 Tablet by mouth at bedtime as needed for Pain, Severe. 30 Tablet 4 Active Renal Vitamin 0.8 MG Oral [...] meals. Take 1 with snack. 4 Active hydrOXYzine HCl 25 MG Oral Tablet Take 1 Tablet by mouth daily. Prior to dialysis 4 Active busPIRone HCl 5 MG Oral Tablet (Buspar)Indication s:Anxiety Take 1 Tablet by mouth in the morning and 1 Tablet before bedtime. 60 Tablet 4 Active Metoprolol Tartrate 25 MG Oral Tablet (Lopressor) Take 1 Tablet by mouth in the morning and 1 Tablet before bedtime. 4 Active Eliquis 2.5 MG Oral Tablet Take 1 Tablet by mouth in the morning and 1 Tablet before bedtime. 4 Active LORazepam 0.5 MG Oral Tablet (Ativan)Indication s:Anxiety 1 tablet 15-20 minutes before dialysis sessions 30 Tablet 4 Active Albuterol Sulfate (2.5 MG/3ML) 0.083% Inhalation Nebulization Solution (Proventil)Indicat ions:COPD, group D, by GOLD 2017 classification ([facility]) Inhale 1 Vial via nebulizer every 4 hours as needed for Wheezing. 100 mL 1 4 024 Discontinued(Me dication/Dose Changed) Albuterol Sulfate (2.5 MG/3ML) 0.083% Inhalation Nebulization Solution (Proventil)Indicat ions:Pneumonia due to COVID-19 virus Inhale 1 Vial via nebulizer every 6 hours as needed for Wheezing. 360 mL 4 024 Discontinued(Me dication/Dose Changed) Carvedilol 3.125 MG Oral Tablet (Coreg) Take 1 tablet by mouth twice daily with food 180 Tablet 1 4 024 Discontinued LORazepam 0.5 MG Oral Tablet (Ativan)Indication s:Phobia, unspecified type Take one tablet 15-20 mins prior to the MRI study 1 Tablet 4 024 Discontinued Hospital, Clinic, or Other Facility Administered Medication Ordered Dose Route Frequency Start Date End Date Status Albuterol Sulfate (Proventil) (5 MG/ML) 0.5% *conc* inhalation solution 2.5 mgIndications:Chronic hypoxemic respiratory failure (HCC),COPD, group C, by GOLD 2017 classification ([facility]),[place]' lung ([facility]) 2.5 mg NEBULIZER PRN 04/24/2023 04/23/2024 Active Albuterol Sulfate (Proventil) (2.5 MG/3ML) 0.083% inhalation solution 2.5 mgIndications:Chronic hypoxemic respiratory failure (HCC),COPD, group C, by GOLD 2017 classification ([facility]),[place] lung ([facility]) 2.5 mg NEBULIZER PRN 04/24/2023 04/23/2024 Active documented as of this encounter (statuses as of 09/03/2023) Active Problems Problem Noted Date Diagnosed Date COPD, group D, by GOLD 2017 classification 04/29 Overview: Per COPD GOLD Classification [place] pneumoconiosis 04/24/2023 Papillary renal cell carcinoma [...] lacunar stroke diagnosed on head CT in [place] Apr 2017. Follow up MRI [facility] no infarct. Anxiety 07/11/2017 HTN, goal below 140/90 08/02/2015 Coronary artery disease Dyslipidemia, goal LDL below 100 documented as of this encounter (statuses as of 09/03/2023) Resolved Problems Problem Noted Date Diagnosed Date [...] as of this encounter (statuses as of 09/03/2023) Immunizations Name Administration Dates Next Due COVID-19 [...] Sign Reading Time Taken Comments Blood Pressure 126/60 09/03/2023 8:55 AM EDT Pulse 62 09/03/2023 8:55 AM EDT Temperature 35.9 C (96.6 F) 09/03/2023 8:55 AM ED T Respiratory Rate - - Oxygen Saturation 82% 09/03/2023 8:55 AM EDT Inhaled Oxygen Concentration - - Weight 93.2 kg (205 lb 6.4 oz) 09/03/2023 8:55 A M EDT Height - - Body Mass Index 35.26 05/29/2023 1:38 PM EDT documented in this encounter Progress Notes * Jody Arora MD - 09/03/2023 9:16 AM EDT Subjective: HPI: Justin Pinedo is a 83 year old male with hx of CAD s/p stent, ESRD, COPD (wears nocturnal oxygen 4L), MOLLY, HTN, carotid stenosis, HTN, DDD, anemia, anxiety, CVA with R sided weakness, COVID infection (02/2021), prediabetes, BPH, hx of RLE DVT and PE (was on coumadin) seen for Pt was admitted to the hospital from 08/25-08/28 Dx: Acute on Chronic respiratory failure 2/2 COPD exacerbation, new onset afib, and volume overload -Echo: EF of 60-65%, moderate LVH 1. acute respiratory failure+ COPD exacerbatiobn: - tx with prednisone and abx -pt required HFNC 2.AFib with RVR: -tx with metoprolol - pt converted to sinus -discharged on renal dose of eliquis Today: - pt was feeling much better but has been having leg swelling, fatigue for the last 2 days due to not being able to complete the HD sessions - per pt he starts shaking during the session - he did receive ativan in the hospital - it helped - denied any palpitation - has been tolerating eliquis well --- denied any gum bleeding Patient Active Problem List Diagnosis HTN, goal below 140/90 Left renal mass Coronary artery disease Carotid stenosis, right Dyslipidemia, goal LDL below 100 History of stroke Anxiety Anemia of chronic renal failure, stage 4 (severe) ([facility]) Not immune to hepatitis B virus Adjustment disorder with mixed disturbance of emotions and conduct Paroxysmal nocturnal dyspnea Obesity, Class I, BMI 30.0-34.9 (see actual BMI) Chronic hypoxemic respiratory failure (HCC) Benign hypertension with chronic kidney disease, stage IV ([facility]) MOLLY and COPD overlap syndrome ([facility]) History of basal cell carcinoma Old myocardial infarct C7 radiculopathy Lumbosacral radiculopathy at L5 Renal osteodystrophy Hx of nonmelanoma skin cancer AK (actinic keratosis) Kidney disease, chronic, stage IV (GFR 15-29 ml/min) ([facility]) BPH without obstruction/lower urinary tract symptoms Right sided weakness Papillary renal cell carcinoma ([facility]) [place]' pneumoconiosis ([facility]) COPD, group D, by GOLD 2017 classification ([facility]) Current Outpatient Medications Medication Sig Dispense Refill nitroglycerin (NITROSTAT) 0.4 MG SUBL 1 Tablet. Venlafaxine HCl ER 37.5 MG Oral Capsule [...] L/min(Oxygen) as directed. Uses "in the evening" hydrOXYzine HCl 50 MG Oral Tablet TAKE 1 TABLET BY MOUTH AT BEDTIME NEEDED FOR INSOMNIA 30 Tablet 3 Torsemide 20 MG Oral Tablet (Demadex) Take 4 Tablets by mouth 2 times a day in the morning and at noon. 120 Tablet 5 traMADol HCl 50 MG Oral Tablet (Ultram) Take 1 Tablet by mouth at bedtime as needed for Pain, Severe. 30 Tablet 0 Renal Vitamin 0.8 MG Oral Tablet Take 1 Tablet by mouth daily. With midday meal post dialysis Midodrine HCl 5 MG Oral Tablet (Proamatine) Take 1 Tablet by mouth daily. Prior to dialysis Calcium Acetate (Phos Binder) 667 MG Oral Capsule (Phoslo) Take 2 Capsules by mouth in the morning and 2 Capsules at noon and 2 Capsules in the evening. Take with meals. Take 1 with snack. busPIRone HCl 5 MG Oral Tablet (Buspar) Take 1 Tablet by mouth in the morning and 1 Tablet before bedtime. 60 Tablet 0 Metoprolol Tartrate 25 MG Oral Tablet (Lopressor) Take 1 Tablet by mouth in the morning and 1 Tablet before bedtime. Eliquis 2.5 MG Oral Tablet Take 1 Tablet by mouth in the morning and 1 Tablet before bedtime. LORazepam 0.5 MG Oral Tablet (Ativan) 1 tablet 15-20 minutes before dialysis sessions 30 Tablet 0 Melatonin 10 MG Oral Capsule Take 1 [...] (MORNING AND BEFORE BEDTIME) 60 Tablet 11 Sodium Bicarbonate 650 MG Oral Tablet TAKE 2 TABLETS BY MOUTH IN THE MORNING AND 2 BEFORE BEDTIME 120 Tablet 0 Fluticasone-Salmeterol 250-50 MCG/ACT Inhalation Aerosol Powder Breath Activated (Advair Diskus) INHALE 1 DOSE BY MOUTH IN THE MORNING AND 1 AT BEDTIME 60 Each 0 Ventolin HFA 108 (90 Base) MCG/ACT Inhalation Aerosol Solution Inhale 2 Puffs by mouth every 4 hours as needed for Wheezing. 18 g 2 methylPREDNISolone 4 MG Oral Tablet Therapy Pack (Medrol Dosepack) follow package directions 21 Tablet 0 hydrOXYzine HCl 25 MG Oral Tablet Take 1 Tablet by mouth daily. Prior to dialysis Current Facility-Administered Medications Medication Dose Route Frequency Provider Last Rate Last Admin Albuterol Sulfate (Proventil) (5 MG/ML) 0.5% *conc* inhalation solution 2.5 mg 2.5 mg Nebulizer Gilbert Alexander MD Albuterol Sulfate (Proventil) (2.5 MG/3ML) 0.083% inhalation solution 2.5 mg 2.5 mg Nebulizer Gilbert Trinidad MD Past Medical History: Diagnosis Date Basal cell carcinoma (BCC) of skin of face 07/11/2017 CKD (chronic kidney disease), stage IV (HCC) COPD (chronic obstructive pulmonary disease) (HCC) Coronary artery disease Dyslipidemia, goal LDL below 100 Microalbuminuria Myocardial infarct, old 1998 stent in [place]--Dr. 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 Pneumonia of right middle lobe due to infectious organism 01/16/2018 Pulmonary embolism (HCC) Past Surgical History: Procedure Laterality Date CHOLECYSTOTOMY OR CHOLECYSTOSTOMY, OPEN COLONOSCOPY several--Dr. Robb. normal PATIENT HAS A CORONARY ARTERY STENT 1998 REMOVAL OF APPENDIX remote SUTURE REPAIR OF ECTROPION Bilateral 11/09/2020 SUTURE REPAIR OF ECTROPION Bilateral 05/08/2023 Dr. Reinheimer-Lateral tarsal strip OU Review of patient's allergies indicates: No Known Allergies Family History Problem Relation Name Age of [...] Vaping/E-Cigarette Devices ROS: -Per HPI OBJECTIVE: BP 126/60 | Pulse 57 | Temp 35.9 C (96.6 F) | Wt 93.2 kg (205 lb 6.4 oz) | SpO2 82% | BMI 35.26kg/m | BSA 2.05 m PHYSICAL EXAM: Vitals are reviewed General:. NAD, well developed HEENT:. Normal Conjunctiva, EOMI Cardiac:.systolic murmur, Normal S1, S2 Lungs:.b/l lower lobe crackles MSK:moderate b/l LE pitting edema Psych:. AAOx3, normal affect ASSESSMENT/PLAN: Pt did appear fluid overloaded - but pt did not complete his HD sessions - I do suspect pt does not complete the session due to feeling anxious ---- since he tolerated the ativan in the past will try ativan prior to HD session VSS with the metoprolol - cardiology referral for recent hx of Afib -[facility] discharge follow-up (Primary) - DISCH MED RECON CUR MED LIS Atrial fibrillation, unspecified type (HCC) - CARDIOLOGY REFERRAL OP Anxiety - LORazepam 0.5 MG Oral Tablet (Ativan); 1 tablet 15-20 minutes before dialysis sessions Chronic hypoxemic respiratory failure (HCC) ESRD (end stage renal disease) (HCC) I spent a total of 40-54 minutes (exact time 46 mins) on the date of service in preparation, delivery, and documentation of the care provided to Justin Pinedo excluding any time spent in the performance of separately billed services. Jody Arora MD Family medicine, [address] [address] documented in this encounter Nursing Notes * Elisa Mcmahon CMA - 09/03/2023 8:53 AM EDT He is here for follow up from admission to [facility] for respiratory failure. His breathing is much better. He states his legs are jumpy today and he has gained about 10lbs of fluid. He cannot put his shoes on. documented in this encounter Plan of Treatment Upcoming Encounters Date Type Department Care Team (Late st Contact Info) Description 09/16/2023 1:25 PM EDT NeuroDiagnostic Study Neurophysiology [facility] [address] [place] [address] Miguel Dan MD [address] [place] [address] 10/02/2023 9:30 AM EDT Office Visit Palliative Medicine [facility] [address] [place] [phone] Brielle Schmidt MD [address] [place] [address] [place] [address] 12/10/2023 10:00 AM EDT Office Visit Cardiology, [facility] [address] [facility] [place] [address] Sarath Bruce MD 132 [facility] [place] [address] 02/10/2024 1:00 PM EST Imaging Radiology [facility] [address] [facility] [place] [address] 02/25/2024 4:00 PM EST Office Visit Urology, [facility] [address] [facility] [place] [address] Cameron Romeo MD [address] [place] [address] [place] [address] 02/26/2024 1:40 PM EST Office Visit Family Medicine [address] [place] [phone] Jody Arora MD [address] [place] [address] [place] [address] 04/09/2024 2:20 PM EST Office Visit Nephrology [address] [place] [address] Rosy Patel MD 200 [facility] [place] [address] Scheduled Referrals Name Type Priority Associated Diagnoses Orde r Schedule CARDIOLOGY REFERRAL OP Referral Within 30 days (routine) Atrial fibrillation, unspecified type (HCC) Ordered: 09/03/2023 Health Maintenance Due Date Last Done Comments [...] as of this encounter Visit Diagnoses Diagnosis Hospital discharge follow-up- Primary Other follow-up examination Atrial fibrillation, unspecified type (HCC) Anxiety Anxiety state, unspecified Chronic hypoxemic respiratory failure (HCC) Chronic respiratory failure ESRD (end stage renal disease) (HCC) End stage renal disease documented in this encounter Care Teams Project Coordinator Relationship Specialty Start Date End Date Jody Arora MD [address] [place] [address] [place] [phone] PCP - General Family Medicine 11/21/21 documented as of this encounter
--- OUTSIDE RECORDS SUMMARY | 2023-10-31 19:41 | External Medical Summary | Summary of Care ---
Author Name Unknown Organization [facility] Address [address] [place] [address] Phone [phone] Care Team Providers Care Trail Maintenance Worker Name Role Phone Jody Arora MD Primary Care Provide r Encounter Details Date Type Department Care Team (Late st Contact Info) Description 08/27/2023 Result Scan Unspecified Department <No scans attached> Allergies No known active allergiesdocumented as of this encounter (statuses as of 09/04/2023) Medications Medication Sig Dispensed Refills Start Date [...] (HCC),COPD, group C, by GOLD 2017 classification (HCC),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) 2.5 mg NEBULIZER PRN 04/24/2023 04/23/2024 Active Albuterol Sulfate (Proventil) (2.5 MG/3ML) 0.083% inhalation solution 2.5 mgIndications:Chronic hypoxemic respiratory failure (HCC),COPD, group C, by GOLD 2017 classification (HCC),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) 2.5 mg NEBULIZER PRN 04/24/2023 04/23/2024 Active documented as of this encounter (statuses as of 09/04/2023) Active Problems Problem Noted Date Diagnosed Date COPD, group D, by GOLD 2017 classification 04/29 Overview: Per COPD GOLD Classification [place] pneumoconiosis 04/24/2023 Papillary renal cell carcinoma [...] Overview: [address] [facility] per patient "kidney cancer". States he was advised he was not a surgical candidate. Carotid stenosis, right 07/11/2017 History of stroke 07/11/2017 Overview: TIA vs lacunar stroke diagnosed on head CT in [place] Apr 2017. Follow up MRI [facility] no infarct. Anxiety 07/11/2017 HTN, goal below 140/90 08/02/2015 Coronary artery disease Dyslipidemia, goal LDL below 100 documented as of this encounter (statuses as of 09/04/2023) Resolved Problems Problem Noted Date Diagnosed Date [...] as of this encounter (statuses as of 09/04/2023) Immunizations Name Administration Dates Next Due COVID-19 [...] 09/16/2023 1:25 PM EDT NeuroDiagnostic Study Neurophysiology [facility] [address] [place] [address] Miguel Dan MD [address] [place] [address] [address] 10/02/2023 9:30 AM EDT Office Visit [facility] [phone] Brielle Schmidt MD [address] [facility] [place] [address] 12/10/2023 10:00 AM EDT Office Visit Cardiology, [facility] [address] [facility] [place] [address] Sarath Bruce MD [address] [facility] [place] [address] 02/10/2024 1:00 PM EST Imaging Radiology [address] [facility] [place] [address] 02/25/2024 4:00 PM EST Office Visit Urology, [facility] 132 [place] [address] Cameron Romeo MD [address] [place] [address] [place] [address] 02/26/2024 1:40 PM EST Office Visit Family Medicine [address] [place] [phone] Jody Arora MD [address] [place] [address] [place] [address] 04/09/2024 2:20 PM EST Office Visit Nephrology [address] [place] [address] Rosy Patel MD 200 [facility] [place] [address] Health Maintenance Due Date Last Done Comments Alpha-1 Antitrypsin 1958 *COPD SEVERITY VERIFIED BY PFT 07/16/2020 Hepatitis B (3 of 3 - 19+ 3-dose series) 03/20/2023 01/23/2023, 01/08/2018 COVID-19 Vaccine ( - 2022- season) 2023 01/03/2023, 01/10/2021, 05/24/2020, Additional history exists GFR 01/23/2024 08/28/2023, 05/0 09/2023, 07/10/2023, Additional history exists Depression Screening 05/19/2024 05/20/2023 Hgb 06/19/2024 08/28/2023, 04/0 06/2023, 02/25/2023, Additional history exists Albumin/Creatinine Ratio 07/09/2024 024, [...] Procedure Name Priority Date/Time Associated Diagnosis Comments ECHOCARDIOLOGY SCANNED RESULT 08/27/2023 documented in this encounter Results * ECHOCARDIOLOGY SCANNED RESULT (08/27/2023) 08/27/2023 No Physician Data Unknown ECHOCARDIOLOGY documented in this encounter Care Teams Trail Maintenance Worker Relationship Specialty Start Date End Date Jody Arora MD [address] [place] [address] [place] [address] PCP - General Family Medicine 11/21/21 documented as of this encounter
--- OUTSIDE RECORDS SUMMARY | 2023-10-31 19:41 | External Medical Summary | Summary of Care ---
Author Name Unknown Organization [facility] Address [address] [place] [address] Phone [phone] Care Team Providers Care Middleware Engineer Name Role Phone Jody Arora MD Primary Care Provide r Reason for Referral * Evaluate & Treat - Unlimited Visits (Within 30 days (routine)) - Authorized Specialty Diagnoses / Procedures Referred By Contjesika t Referred To Contact Cardiovascular Medicine / Cardiology Diagnoses Atrial fibrillation, unspecified type (HCC) Jody Arora MD [address] [place] [address] [place] [id number] Referral ID Status Reason Start Date Expiration Date Visits Requested Visits Authorized [id number] Authorized Specialty Services Required 09/03/2023 999 999 [...] 1:40 PM EDT Office Visit Family Medicine [address] [place] [phone] Jody Arora MD [address] [place] [address] [place] [phone] Hospital discharge follow-up*; Atrial fibrillation, unspecified type ([facility]); Anxiety; Chronic hypoxemic respiratory failure ([facility]); ESRD (end stage renal disease) ([facility]) Allergies No known active allergiesdocumented [...] :COPD, group C, by GOLD 2017 classification ([facility]) INHALE 1 DOSE BY MOUTH IN THE MORNING AND 1 AT BEDTIME 60 Each 4 Active Ventolin HFA 108 (90 Base) MCG/ACT Inhalation Aerosol SolutionIndication s:COPD, group D, by GOLD 2017 classification ([facility]) Inhale 2 Puffs by mouth every 4 hours as needed for Wheezing. 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 ([facility]) 2.5 mg NEBULIZER PRN 04/24/2023 04/23/2024 Active Albuterol Sulfate (Proventil) (2.5 MG/3ML) 0.083% inhalation solution 2.5 mgIndications:Chronic hypoxemic respiratory failure (HCC),COPD, group C, by GOLD 2017 classification ([facility]),[place] miners' lung ([facility]) 2.5 mg NEBULIZER PRN 04/24/2023 04/23/2024 Active documented as of this encounter (statuses as of 09/03/2023) Active Problems Problem Noted Date Diagnosed Date COPD, group D, by GOLD 2017 classification 04/29 Overview: Per COPD GOLD Classification [place] 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 Follow up MRI [facility] no infarct. Anxiety 07/11/2017 HTN, goal below [...] of chronic renal failure, stage 4 (severe) ([facility]) Not immune to hepatitis B virus Adjustment disorder with mixed disturbance of emotions and conduct Paroxysmal nocturnal dyspnea Obesity, Class I, BMI 30.0-34.9 (see actual BMI) Chronic hypoxemic respiratory failure (HCC) Benign hypertension with chronic kidney disease, stage IV ([facility]) MOLLY and COPD overlap syndrome ([facility]) History of basal cell carcinoma Old myocardial infarct C7 radiculopathy Lumbosacral radiculopathy at L5 Renal osteodystrophy Hx of nonmelanoma skin cancer [place] (actinic keratosis) Kidney disease, chronic, stage IV (GFR 15-29 ml/min) ([facility]) BPH without obstruction/lower urinary tract symptoms Right sided weakness Papillary renal cell carcinoma ([facility]) [place] miners' pneumoconiosis ([facility]) COPD, group D, by GOLD 2017 classification ([facility]) Current Outpatient Medications Medication Sig Dispense Refill [...] Microalbuminuria Myocardial infarct, old 1998 stent in [place]--Dr. Marques Non-Q wave myocardial infarction of anterolateral [...] cardiology referral for recent hx of Afib -LTAC, located within [facility] discharge follow-up (Primary) - DISCH MED RECON [...] billed services. Jody Arora MD Family medicine, [address] [address] documented in this encounter Nursing Notes * Elisa Mcmahon CMA - 09/03/2023 8:53 AM EDT He is here for follow up from admission to [facility] for respiratory failure. His breathing is much better. He states his legs are jumpy today and he has gained about 10lbs of fluid. He cannot put his shoes on. documented in this encounter Plan of Treatment Upcoming Encounters Date Type Department Care Team (Late st Contact Info) Description 09/16/2023 1:25 PM EDT NeuroDiagnostic Study Neurophysiology [facility] 200 [place] [address] Miguel Dan MD 200 [place] [address] 10/02/2023 9:30 AM EDT Office Visit Palliative Medicine [facility] 200 [facility] [phone] Brielle Schmidt MD [address] [place] [address] [place] [address] 12/10/2023 10:00 AM EDT Office Visit Cardiology, [facility] 132 [facility] [place] [address] Sarath Bruce MD 132 [facility] [place] [address] 02/10/2024 1:00 PM EST Imaging Radiology [facility] [address] [facility] 132 [facility] [place] [address] 02/25/2024 4:00 PM EST Office Visit Urology, [facility] 132 [facility] [place] [address] Cameron Romeo MD [address] [place] [address] [place] [address] 02/26/2024 1:40 PM EST Office Visit Family Medicine [address] [place] [phone] Jody Arora MD [address] [place] [address] [place] [address] 04/09/2024 2:20 PM EST Office Visit Nephrology [address] [place] [address] Rosy Patel MD 200 [facility] [place] [address] Scheduled Referrals Name Type Priority Associated Diagnoses [...] disease documented in this encounter Care Teams Middleware Engineer Relationship Specialty Start Date End Date Jody Arora MD [address] [place] [address] [place] [phone] PCP - General Family Medicine 11/21/21 documented as of this encounter
--- OUTSIDE RECORDS SUMMARY | 2023-10-31 19:41 | External Medical Summary | Summary of Care ---
Author Name Unknown Organization [facility] Address [address] [place] [address] Phone [phone] Care Team Providers Care Feeder Catcher Name Role Phone Jody Arora MD Primary Care Provide r Reason for Visit * Reason Onset Date Comments Appointment 09/03/2023 CARDIOLOGY APPT Encounter Details Date Type Department Care Team (Late st Contact Info) Description 09/03/2023 Telephone Family [address] [phone] Jody Arora MD [address] [place] [address] [place] [phone] Appointment (CARDIOLOGY APPT) Allergies No known active allergiesdocumented as of [...] 2017 classification ([facility]) INHALE 1 DOSE BY MOUTH IN THE MORNING AND 1 AT BEDTIME 60 Each 05/28/2023 Active Ventolin HFA 108 (90 Base) MCG/ACT Inhalation Aerosol SolutionIndications: COPD, group D, by GOLD 2017 classification ([facility]) Inhale 2 Puffs by mouth every 4 hours as needed for Wheezing. 18 g 2 05/28/2023 Active Torsemide 20 MG Oral Tablet (Demadex)Indications :ESRD needing dialysis ([facility]) Take 4 Tablets by mouth [...] GOLD 2017 classification ([facility]),[place]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) 2.5 mg NEBULIZER PRN 04/24/2023 04/23/2024 Active Albuterol Sulfate (Proventil) (2.5 MG/3ML) 0.083% inhalation solution 2.5 mgIndications:Chronic hypoxemic respiratory failure (HCC),COPD, group C, by GOLD 2017 classification (HCC),[place]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) 2.5 mg NEBULIZER PRN 04/24/2023 04/23/2024 Active documented as of this encounter (statuses as of 09/04/2023) Active Problems Problem Noted Date Diagnosed Date COPD, group D, by GOLD 2017 classification 04/29 Overview: Per COPD GOLD Classification [place] 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 States he was advised he was not a surgical candidate. Carotid stenosis, right 07/11/2017 History of stroke 07/11/2017 Overview: TIA vs lacunar stroke diagnosed on head CT in [place] Apr 2017. Follow up MRI [facility] no infarct. Anxiety 07/11/2017 HTN, goal below [...] encounter Miscellaneous Notes * Telephone Encounter - Joselo Flores OSA - 09/04/2023 2:22 PM EDT Appt has been changed to: NEW CARDIOLOGY at 11:00 AM (30 min)Arrive by 10:45 AM September Appointment Provider:Augustin Mathis DO in CARDIOLOGY [facility] * Telephone Encounter - Venu Dempsey OSA - 09/03/2023 9:51 AM EDT I did find an appt for [facility] for November. Not sure if pt should be seen sooner. Please advise. * Telephone Encounter - Venu Dempsey OSA - 09/03/2023 9:45 AM EDT Per check out notes for Dr. Arora, pt needs cardio appt. Nothing avail. Please contact pt andassist in scheduling. Thank you. documented in this encounter Plan of Treatment Upcoming Encounters Date Type Department Care Team (Late st Contact Info) Description 09/16/2023 1:25 PM EDT NeuroDiagnostic Study Neurophysiology [facility] [address] [place] [address] Miguel Dan MD [address] [place] [address] 10/02/2023 9:30 AM EDT Office Visit Palliative Medicine [facility] 200 [place] [phone] Brielle Schmidt MD 400 [facility] [place] [address] 10/10/2023 11:00 AM EDT Office Visit Cardiology, [facility] 132 [facility] [place] [address] Augustin Mathis, 132 [facility] [place] [address] 02/10/2024 1:00 PM EST Imaging Radiology [address] 132 [facility] [place] [address] 02/25/2024 4:00 PM EST Office Visit Urology, [facility] 132 [place] [address] Cameron Romeo MD [address] [place] [address] [place] [address] 02/26/2024 1:40 PM EST Office Visit Family Medicine [address] [phone] Jody Arora MD [address] [place] [address] [place] [address] 04/09/2024 2:20 PM EST Office Visit Nephrology [address] [place] [address] Rosy Patel MD 200 [facility] [address] Health Maintenance Due Date Last Done Comments [...] filedocumented as of this encounter Care Teams Feeder Catcher Relationship Specialty Start Date End Date Jody Arora MD [address] [place] [address] [place] [phone] PCP - General Family Medicine 9/6/22 documented as of this encounter
--- OUTSIDE RECORDS SUMMARY | 2023-10-31 19:41 | External Medical Summary | Summary of Care ---
Author Name Unknown Organization [facility] Address [address] [place] [address] Phone [phone] Care Team Providers Care Stationary Engineer Refrigeration Name Role Phone Jody Arora MD Primary Care Provide r Reason for Visit * Reason Onset Date Comments Advice 09/10/2023 Encounter Details Date Type Department Care Team (Late st Contact Info) Description 09/10/2023 Telephone Nephrology, [facility] 200 [place] [address] Services, Scheduling [address] [place] [address] Advice Allergies No known active allergiesdocumented as [...] GOLD 2017 classification ([facility]),[place]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) 2.5 mg NEBULIZER PRN 04/24/2023 04/23/2024 Active Albuterol Sulfate (Proventil) (2.5 MG/3ML) 0.083% inhalation solution 2.5 mgIndications:Chronic hypoxemic respiratory failure (HCC),COPD, group C, by GOLD 2017 classification ([facility]),[place]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) 2.5 mg NEBULIZER PRN 04/24/2023 04/23/2024 Active documented as of this encounter (statuses as of 09/10/2023) Active Problems Problem Noted Date Diagnosed Date COPD, group D, by GOLD 2017 classification 04/29 Overview: Per COPD GOLD Classification [place] 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 States he was advised he was not a surgical candidate. Carotid stenosis, right 07/11/2017 History of stroke 07/11/2017 Overview: TIA vs lacunar stroke diagnosed on head CT in [place] Apr 2017. Follow up MRI [facility] no infarct. Anxiety 07/11/2017 HTN, goal below [...] 09/16/2023 1:25 PM EDT NeuroDiagnostic Study Neurophysiology [facility] 200 [facility] [place] [address] Miguel Dan MD 200 [facility] [address] 10/02/2023 9:30 AM EDT Office Visit Palliative Medicine [facility] 200 [facility] [phone] Brielle Schmidt MD [address] [place], [place] [address] [address] 10/10/2023 11:00 AM EDT Office Visit Cardiology, [facility] 132 [facility] [place] [address] Augustin Mathis, [address] [place] [address] 02/10/2024 1:00 PM EST Imaging Radiology [facility] 1st [facility] [place] [address] 02/25/2024 4:00 PM EST Office Visit Urology, [facility] 132 [facility] [place] [address] Cameron Romeo MD 27 [facility] [address] [place] [address] 02/26/2024 1:40 PM EST Office Visit Family Medicine [address] [place] [phone] Jody Arora MD [address] [place] [address] [place] [address] 04/09/2024 2:20 PM EST Office Visit Nephrology [address] [place] [address] Rosy Patel MD 200 [facility] [place] [address] Health Maintenance Due Date Last Done Comments [...] filedocumented as of this encounter Care Teams Stationary Engineer Refrigeration Relationship Specialty Start Date End Date Jody Arora MD [address] [place] [address] [place] [phone] PCP - General Family Medicine 11/21/21 documented as of this encounter
--- OUTSIDE RECORDS SUMMARY | 2023-10-31 19:41 | External Medical Summary | Summary of Care ---
Author Name Unknown Organization [facility] Address [address] [place] [address] Phone [phone] Care Team Providers Care Community Chest Officer Name Role Phone Jody Arora MD Primary Care Provide r Reason for Visit * Reason Onset Date Comments Advice 09/10/2023 Encounter Details Date Type Department Care Team (Late st Contact Info) Description 09/10/2023 Telephone Nephrology, [facility] 200 [place] [address] Services, Scheduling [address] [place] [address] Advice Allergies No known active allergiesdocumented as [...] OPD, group C, by GOLD 2017 classification ([facility]) INHALE 1 DOSE BY MOUTH IN THE MORNING AND 1 AT BEDTIME 60 Each 05/28/2023 Active Ventolin HFA 108 (90 Base) MCG/ACT Inhalation Aerosol SolutionIndications: COPD, group D, by GOLD 2017 classification ([facility]) Inhale 2 Puffs by mouth every 4 hours as needed for Wheezing. 18 g 2 05/28/2023 Active Torsemide 20 MG Oral Tablet (Demadex)Indications :ESRD needing dialysis ([facility]) [...] GOLD 2017 classification ([facility]),[place]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) 2.5 mg NEBULIZER PRN 04/24/2023 04/23/2024 Active Albuterol Sulfate (Proventil) (2.5 MG/3ML) 0.083% inhalation solution 2.5 mgIndications:Chronic hypoxemic respiratory failure (HCC),COPD, group C, by GOLD 2017 classification ([facility]),[place]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) 2.5 mg NEBULIZER PRN 04/24/2023 04/23/2024 Active documented as of this encounter (statuses as of 09/10/2023) Active Problems Problem Noted Date Diagnosed Date COPD, group D, by GOLD 2017 classification 04/29 Overview: Per COPD GOLD Classification [place] 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 Follow up MRI [facility] no infarct. Anxiety 07/11/2017 HTN, goal [...] 09/16/2023 1:25 PM EDT NeuroDiagnostic Study Neurophysiology [facility] 200 [facility] [place] [address] Miguel Dan MD 200 [facility] [address] 10/02/2023 9:30 AM EDT Office Visit Palliative Medicine [facility] 200 [facility] [phone] Brielle Schmidt MD [address] [place], [place] [address] [address] 10/10/2023 11:00 AM EDT Office Visit Cardiology, [facility] 132 [facility] [place] [address] Augustin Mathis, [address] [place] [address] 02/10/2024 1:00 PM EST Imaging Radiology [facility] 1st [facility] [place] [address] 02/25/2024 4:00 PM EST Office Visit Urology, [facility] 132 [facility] [place] [address] Cameron Romeo MD 27 [facility] [place] [address] [place] [address] 02/26/2024 1:40 PM EST Office Visit Family Medicine [address] [place] [phone] Jody Arora MD [address] [place] [address] [place] [address] 04/09/2024 2:20 PM EST Office Visit Nephrology [address] [place] [address] Rosy Patel MD 200 [facility] [place] [address] Health Maintenance Due Date Last Done Comments [...] filedocumented as of this encounter Care Teams Community Chest Officer Relationship Specialty Start Date End Date Jody Arora MD [address] [place] [address] [place] [phone] PCP - General Family Medicine 11/21/21 documented as of this encounter
--- OUTSIDE RECORDS SUMMARY | 2023-10-31 19:41 | External Medical Summary | Summary of Care ---
Author Name Unknown Organization [facility] Address [address] [place] [address] Phone [phone] Care Team Providers Care Surg Physician Asst Name Role Phone Jody Arora MD Primary Care Provide r Encounter Details Date Type Department Care Team (Late st Contact Info) Description 09/04/2023 Orders Only Family Medicine [address] [phone] Jody Arora MD [address] [place] [address] [place] [address] Allergies No known active allergiesdocumented as [...] by GOLD 2017 classification ([facility]) INHALE 1 DOSE BY MOUTH IN THE MORNING AND 1 AT BEDTIME 60 Each 05/28/2023 Active Ventolin HFA 108 (90 Base) MCG/ACT Inhalation Aerosol SolutionIndications: COPD, group D, by GOLD 2017 classification ([facility]) Inhale 2 Puffs by mouth every 4 hours as needed for Wheezing. 18 g 2 05/28/2023 Active Torsemide 20 MG Oral Tablet (Demadex)Indications :ESRD needing dialysis ([facility]) Take 4 Tablets by mouth 2 times [...] C, by GOLD 2017 classification ([facility]),[place]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) 2.5 mg NEBULIZER PRN 04/24/2023 04/23/2024 Active Albuterol Sulfate (Proventil) (2.5 MG/3ML) 0.083% inhalation solution 2.5 mgIndications:Chronic hypoxemic respiratory failure (HCC),COPD, group C, by GOLD 2017 classification ([facility]),[place]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) 2.5 mg NEBULIZER PRN 04/24/2023 04/23/2024 Active documented as of this encounter (statuses as of 09/04/2023) Active Problems Problem Noted Date Diagnosed Date COPD, group D, by GOLD 2017 classification 04/29 Overview: Per COPD GOLD Classification [place] 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 Follow [facility] [...] 09/16/2023 1:25 PM EDT NeuroDiagnostic Study Neurophysiology [facility] 200 [facility] [place] [address] Miguel Dan MD 200 [facility] [place] [address] 10/02/2023 9:30 AM EDT Office Visit Palliative Medicine [facility] [address] [place] [phone] Brielle Schmidt MD [address] [place] [address] [place] [address] 12/10/2023 10:00 AM EDT Office Visit Cardiology, [facility] 132 [facility] [place] [address] Sarath Bruce MD 132 [facility] [place] [address] 02/10/2024 1:00 PM EST Imaging Radiology [facility] [address] [facility] 132 [facility] [place] [address] 02/25/2024 4:00 PM EST Office Visit Urology, [facility] 132 [facility] [place] [address] Cameron Romeo MD [address] [place] [address] [place] [address] 02/26/2024 1:40 PM EST Office Visit Family Medicine [address] [place] [phone] Jody Arora MD [address] [place] [address] [place] [address] 04/09/2024 2:20 PM EST Office Visit Nephrology [address] [place] [address] Rosy Patel MD 200 [facility] [place] [address] Health Maintenance Due Date Last Done Comments [...] Priority Date/Time Associated Diagnosis Comments CHEMISTRY-OUTSIDE Routine 08/28/2023 documented in this encounter Results * (ABNORMAL) CHEMISTRY-OUTSIDE (08/28/2023) Not all results display below - see scan for full detail OUTSIDE LAB (SEE SCANNED REPORT) Comment:SEE SCAN: CBCD, BMP CREATININE-OUTSID E LAB 4.08(A) 0.6 - 1.4 MG/DL OUTSIDE LAB (SEE SCANNED REPORT) EGFR-OUTSIDE LAB 12.7 ML/MIN/1.7 3M2 OUTSIDE LAB (SEE SCANNED REPORT) POTASSIUM-OUTSIDE LAB 5.7(A) 3.5 - 5.1 MMOL/L OUTSIDE LAB (SEE SCANNED REPORT) GLUCOSE-OUTSIDE LAB 168(A) 70 - 99 MG/DL OUTSIDE LAB (SEE SCANNED REPORT) HOURS [...] LAB OUTSIDE LAB (SEE SCANNED REPORT) HEMOGLOBIN, L0M-QCUMMUM LAB OUTSIDE LAB (SEE SCANNED REPORT) PHOSPHORUS-OUTSID E LAB OUTSIDE LAB (SEE SCANNED REPORT) PTH-OUTSIDE LAB OUTS JULIA LAB (SEE SCANNED REPORT) MICROALBUMIN RATIO-OUTSIDE LAB OUTSIDE LA B (SEE SCANNED REPORT) PROTEIN, UA-OUTSIDE LAB OUTSIDE LAB (SEE SCANNED REPORT) HGB 8.3(A) 14.0 - 18.0 G/DL OUTSIDE LAB (SEE SCANNED REPORT) 08/28/2023 Jj Oliveira MD LABORATORY OUTSIDE LAB (SEE SCANNED REPORT) documented in this encounter Care Teams Surg Physician Asst Relationship Specialty Start Date End Date Jody Arora MD [address] [place] [address] [place] [address] PCP - General Family Medicine 11/21/21 documented as of this encounter
[2023-10-31] MEDS: APIXABAN 2.5 MG TAB PO SCH (21:07)
[2023-10-31] MEDS: METOPROLOL TARTRATE 25 MG TAB PO SCH (21:07)
[2023-10-31] MEDS: oxyCODONE HCL IR 5 MG TAB (IMMEDIATE RELEASE) PO PRN (21:09)
[2023-10-31] MEDS: BACLOFEN 10 MG TAB PO ONE (21:47)
[2023-11-01 07:23] LABS: Hematocrit (blood only) 26.9 % (42.0-52.0); Hemoglobin 8.4 g/dl (14.0-18.0); Mean Corpuscular Hgb Conc 31.2 g/dL (32.0-36.0); Mean Corpuscular Volume 89.7 fL (80.0-100.0); Mean Platelet Volume 10.3 fL (9.4-12.4); Platelet Count 101 K/uL (130-400); RDW Coefficient of Variation 16.5 % (11.5-14.5); RDW Standard Deviation 54.2 fL (36.4-46.3); White Blood Count 8.51 K/ul (4.8-10.8)
[2023-11-01 07:45] LABS: BUN Creatinine Ratio 8.3 (10-20); Calcium 8.4 mg/dl (8.6-10.3); Creatinine Clr Calc Pharmacy 8.8 ml/min; Est GFR (African American) 8.5 ml/min; Est GFR (Non-African American) 7.3 ml/min; Potassium 4.3 mmol/L (3.5-5.1)
[2023-11-01] MEDS: MIDODRINE HCL 2.5 MG TAB PO SCH (08:35)
[2023-11-01] MEDS: ROSUVASTATIN CALCIUM 10 MG TAB PO SCH (08:35)
[2023-11-01] MEDS: VENLAFAXINE HCL XR 37.5 MG CAPXR PO SCH (08:36)
[2023-11-01] MEDS: NEPHROCAPS PO SCH (08:36)
[2023-11-01] MEDS ORDERED: SODIUM CHLORIDE 0.9% 1,000 ML IV PRN (09:29)
--- NOTE | 2023-11-01 10:43 | Nephrology Consultation ---
Date of Consultation November 01, 2023 Assessment & Plan (1) End-stage renal disease (ESRD): Patient with ESRD on dialysis Saturday using right upper arm AV fistula. Electrolytes are stable but patient is hypoxic and likely volume overload. Will dialyze him for 4 hours -3 L. (2) Acute on chronic respiratory failure with hypoxia and hypercapnia: Likely due to COPD exacerbation and volume overload. Patient is on bronchodilators. Will optimize fluid status with dialysis. (3) Anemia of chronic renal failure: Hemoglobin of 8.4. Will give Epogen 10,000 units with dialysis today. History of Present Illness Reason for Consultation: ESRD Requesting Physician: Fabiana Matthew MD Attending Physician: Fabiana Matthew MD History of Present Illness This is an 83 y/o male With ESRD on dialysis Saturday at [facility] who was admitted with shortness of breath and hypotension at dialysis on 10/31/2023. Other past medical history include CAD s/p stent, O2 dependent COPD, MOLLY, HTN, prior CVA with right weakness, prediabetes, prior DVT/PE (was on warfarin). Patient remained only 1-1/2 hours and became more short of breath. Systolic blood pressure was in the 60s. In the emergency room patient was placed on oxygen nasal cannula. Blood pressure is now stable in the 120s and he is saturating well on 4 L nasal cannula. Chest x-ray showed no acute cardiopulmonary process.This morning patient complaining of shortness of breath and leg swelling. No nausea or vomiting. Allergies Allergy/AdvReac Type Severity Reaction Status Date / Time lorazepam AdvReac Intermediate Hallucinati Verified 09/16/23 08:39 ng/Confusio n Home Medications Medication Instructions Recorded Confirmed Type venlafaxine 37.5 mg 37.5 mg PO DAILY 02/01/22 10/31/23 History capsule,extended release 24 hr (Effexor XR) tamsulosin 0.4 mg capsule (Flomax) 0.4 mg PO QAM 06/19/22 10/31/23 History hydroxyzine HCl 50 mg tablet 50 mg PO HS PRN Insomnia 05/14/23 10/31/23 History nitroglycerin 0.4 mg sublingual 0.4 mg sublingual UD PRN Chest Pain 05/14/23 10/31/23 History tablet (Nitrostat) rosuvastatin 10 mg tablet 10 mg PO QAM 05/14/23 10/31/23 History buspirone 5 mg tablet 5 mg PO AMHS 08/26/23 10/31/23 History glycopyrrolate 9 mcg-formoterol 1 puff inhalation BID 08/26/23 10/31/23 History 4.8 mcg HFA aerosol inhaler (Bevespi Aerosphere) midodrine 5 mg tablet 5 mg PO 3XWK 08/26/23 10/31/23 History torsemide 20 mg tablet 100 mg PO BID 08/26/23 10/31/23 History vitamin B complex-vitamin C-folic 1 tab PO 3XWK 08/26/23 10/31/23 History acid 0.8 mg tablet (Izzy-Vianney) apixaban 2.5 mg tablet (Eliquis) 2.5 mg PO BID #60 tabs 08/29/23 10/31/23 Rx metoprolol tartrate 25 mg tablet 25 mg PO BID #60 tabs 08/29/23 10/31/23 Rx ipratropium 0.5 mg-albuterol 3 mg 3 ml NEB QIDR PRN Other 10/31/23 10/31/23 History (2.5 mg base)/3 mL nebulization soln metolazone 5 mg tablet 5 mg PO UD 10/31/23 10/31/23 History oxycodone 5 mg tablet 5 mg PO DIRECTED PRN Pain 10/31/23 10/31/23 History Patient History Medical History Multifocal pneumonia History of DVT (deep vein thrombosis) Left renal mass Pneumonia due to COVID-19 virus Urinary frequency Hx of blood clots "IN MY LEGS AND 1 IN MY LUNGS A LONG TIME AGO">WAS ON BLOOD THINNERS, CAUSED BY PHLEBITIS History of COVID-19 02/02/22>STILL HAS FATIGUE Adjustment disorder with mixed disturbance of emotions and conduct History of basal cell carcinoma Carotid stenosis, right 50-69% stenosis to right ICA; <50% stenosis to left ICA per 06/22/21 carotid duplex History of stroke 2017 OR 2018 >NO RESIDUAL History of MA (myocardial infarction) 1998 MOLLY and COPD overlap syndrome WEARS 4L O2 AT HS Prediabetes PT DENIES Renal osteodystrophy Papillary renal cell carcinoma WITH MALIGNANCY>NO TREATMENT YET (CURRENT DX) Surgical History History of anesthesia reaction SLOW TO WAKE UP History of arthroscopy LEFT KNEE History of colonoscopy History of tooth extraction History of tonsillectomy History of cataract surgery RT/LEFT History of cholecystectomy History of appendectomy History of heart artery stent 1998>? # STENTS PLACED IN [facility] (FOLLWED BY DR. [facility]) Family History Other Colorectal cancer No family history of adverse response to anesthesia Social History Smoking Status: Former smoker Second Hand Exposure: No; Do You Dip or Chew Tobacco: No; Hx Alcohol Use: No Hx Substance Use: No Preferred Language: Swiss Communication Ability: Effective Communication Tools: Other Customer Care Agent Required: Yes Beliefs That Will Affect Care: None Current Living Situation: Spouse Other Information That Helps Us Care for You: No Feels Safe at Home: Yes Safety Concerns: Feels Safe At This Time Assistive Devices: Cane, Denture - Upper and Oxygen - Continuous Review of Systems 2 Review of Systems: All other systems were reviewed and negative except as noted in HPI Physical Exam 2 Physical Exam: General exam: Appears comfortable, no acute distress HEENT: Pupils are equal and reactive to light Neck: No JVD, neck is supple trachea is midline Respiratory system: Clear breath sounds bilaterally. Gastrointestinal: Abdomen is soft, non distended, non tender, bowel sounds are present CVS: Regular rate and rhythm. No murmurs, rubs or gallops Musculoskeletal: No joint or muscle tenderness Extremities: Non tender, no edema, peripheral pulses are present Neuro: Oriented, no tremors, no focal neurological deficits Skin: No rashes Results & Data Vital Signs (Past 12 Hours) Vital Signs Temp Pulse Pulse Resp BP Pulse Ox O2 Del Method 11/01/23 07:41 Nasal Cannula 11/01/23 07:41 36.5 C 67 18 123/48 L 94 Nasal Cannula 11/01/23 07:13 83 11/01/23 07:05 84 22 93 Nasal Cannula 11/01/23 04:11 36.6 C 73 24 147/80 H 93 Nasal Cannula 11/01/23 03:30 81 18 91 Nasal Cannula 10/31/23 23:30 36.5 C 81 20 106/59 L 93 Nasal Cannula O2 Flow Rate 11/01/23 07:41 4 11/01/23 07:41 5 11/01/23 07:13 11/01/23 07:05 5 11/01/23 04:11 4 11/01/23 03:30 4 10/31/23 23:30 4 Laboratory Results 11/01/23 06:56 10/31/23 11/01/23 12:17 06:56 WBC 9.50 8.51 RBC 3.17 L 3.00 L MCV 88.3 89.7 MCH 27.8 28.0 MCHC 31.4 L 31.2 L RDW Std Deviation 53.1 H 54.2 H RDW Coeff of John 16.5 H 16.5 H Plt Count 131 101 L MPV 10.2 10.3 Albumin 4.2
[2023-11-01] MEDS: EPOETIN ALFA 10,000 UNITS/ML VIAL IV ONE (11:49)
[2023-11-01] MEDS: HEPARIN SOD (PORCINE) 1000 UNIT/ML IV ONE (11:49)
--- NOTE | 2023-11-01 13:11 | Hospitalist Progress Note ---
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 PAtient with acute on chronic hypoxic resp failure and acute on chronic HFpEF 2/2 volume overload requiring HD. #Acute on chronic hypoxi resp failure #Acute on chronic heart failure with preserved EF #Volume Overload #ESRD on HD - Diuretics at home: torsemide 100 mg BID, metolazone 5 mg on nondialysis days - pt reports making only " a thimble full" amount of urine once daily. - Consult nephrology to assist with management of volume status - -Plan for HD per nephrology: goal 4 hours for -3L - Daily weights. Strict Is and Os #COPD suspect fluid related rather than exacerbation - Continue Spiriva 2 puffs daily, will also add on nebs, no steroids warranted at this time #CAD s/p cardiac stent #Afib #HTN #HLD #Hx of DVT/PE - [id number] of 7 : pt was on coumadin during last admission, and appears he was transitioned to eliquis 2.5 BID as outpatient in mid September. - Metoprolol 25 mg BID (taking after dialysis sessions), cont rosuvastatin 10 mg , also using midodrine 5 mg prior to HD sessions - Torsemide 100 mg BID in morning and at noon - does not sound like the patient is responding to diuretic therapy at this point, and that instead fluid balance will need to be through HD instead. Appreciate nephrology input regarding volume status. Diuretics per Nephrology #R posterior thigh wound - S/p I & D on Saturday 10/28 at wound clinic in [place], unknown culture results. Suture in place. Was scheduled for removal next week. - Pt was given oxycodone, may continue this for pain control - monitor. give after dialysis #Depression - Venlafaxine 27.5 mg daily DVT ppx: teds, scds, eliquis Lines: PIV x 2 FEN/GI: Renal Diet CODE: FULL Dispo: From home, likely to remain in the hospital x 2 days Admission and Anticipated Discharge Date Admission Date: October 31, 2023 Subjective Admitted yesterday Lethargic this am, reports feeling like his legs are swollen and SOB, but denies any new symptoms States that he is ready for HD today and without other acute concerns Physical Exam Constitutional: sleepy/lethargic Respiratory: diminished bibasilar breath sounds Cardiovascular: RRR, trace edema Results & Data Results & Data Vital Signs (Past 12 Hours) Vital Signs Temp Pulse Pulse Resp BP BP Pulse Ox 11/01/23 12:30 63 123/57 L 11/01/23 12:00 61 108/52 L 11/01/23 11:45 58 L 128/63 11/01/23 11:30 62 103/62 11/01/23 11:00 67 147/68 H 11/01/23 10:53 54 L 133/71 11/01/23 07:41 11/01/23 07:41 36.5 C 67 18 123/48 L 94 11/01/23 07:13 83 11/01/23 07:05 84 22 93 11/01/23 04:11 36.6 C 73 24 147/80 H 93 11/01/23 03:30 81 18 91 O2 Del Method O2 Flow Rate 11/01/23 12:30 11/01/23 12:00 11/01/23 11:45 11/01/23 11:30 11/01/23 11:00 11/01/23 10:53 11/01/23 07:41 Nasal Cannula 4 11/01/23 07:41 Nasal Cannula 5 11/01/23 07:13 11/01/23 07:05 Nasal Cannula 5 11/01/23 04:11 Nasal Cannula 4 11/01/23 03:30 Nasal Cannula 4 Laboratory Results Short CBC 11/01/23 Range/Units 06:56 WBC 8.51 (4.8-10.8) K/ul Hgb 8.4 L (14.0-18.0) g/dl Hct 26.9 L (42.0-52.0) % Plt Count 101 L (130-400) K/uL BMP 11/01/23 06:56 Sodium 137 Potassium 4.3 Chloride 93 L Carbon Dioxide 33 H BUN 53 H Creatinine 6.42 H* D Glucose 131 H Calcium 8.4 L Medications Administered Home Medications Medication Instructions Recorded Confirmed Last Taken venlafaxine 37.5 mg 37.5 mg PO DAILY 02/01/22 10/31/23 10/31/23 capsule,extended release 24 hr (Effexor XR) tamsulosin 0.4 mg capsule (Flomax) 0.4 mg PO QAM 06/19/22 10/31/23 10/31/23 hydroxyzine HCl 50 mg tablet 50 mg PO HS PRN Insomnia 05/14/23 10/31/23 Unknown nitroglycerin 0.4 mg sublingual 0.4 mg sublingual UD PRN Chest Pain 05/14/23 10/31/23 Unknown tablet (Nitrostat) rosuvastatin 10 mg tablet 10 mg PO QAM 05/14/23 10/31/23 10/31/23 buspirone 5 mg tablet 5 mg PO AMHS 08/26/23 10/31/23 10/31/23 glycopyrrolate 9 mcg-formoterol 1 puff inhalation BID 08/26/23 10/31/23 10/31/23 4.8 mcg HFA aerosol inhaler (Bevespi Aerosphere) midodrine 5 mg tablet 5 mg PO 3XWK 08/26/23 10/31/23 Unknown torsemide 20 mg tablet 100 mg PO BID 08/26/23 10/31/23 10/31/23 vitamin B complex-vitamin C-folic 1 tab PO 3XWK 08/26/23 10/31/23 Unknown acid 0.8 mg tablet (Izzy-Vianney) apixaban 2.5 mg tablet (Eliquis) 2.5 mg PO BID #60 tabs 08/29/23 10/31/23 10/31/23 metoprolol tartrate 25 mg tablet 25 mg PO BID #60 tabs 08/29/23 10/31/23 Unknown ipratropium 0.5 mg-albuterol 3 mg 3 ml NEB QIDR PRN Other 10/31/23 10/31/23 Unknown (2.5 mg base)/3 mL nebulization soln metolazone 5 mg tablet 5 mg PO UD 10/31/23 10/31/23 Unknown oxycodone 5 mg tablet 5 mg PO DIRECTED PRN Pain 10/31/23 10/31/23 10/30/23 Active Medications Generic Name Dose Route Start Last Admin Trade Name Freq PRN Reason Stop Dose Admin Albuterol 3 ml 10/31/23 16:20 11/01/23 11:41 Albut/Ipratrop 3mg/0.5mg Neb 3 Ml Vial NEB 11/30/23 16:19 Not Given Q4R MARCOS Protocol Apixaban 2.5 mg 10/31/23 21:00 11/01/23 08:36 Apixaban 2.5 Mg Tab PO 11/30/23 20:59 2.5 mg BID MARCOS Administration Bisacodyl 10 mg 10/31/23 16:20 11/01/23 08:36 Bisacodyl 5 Mg Tabec PO 11/30/23 16:19 10 mg DAILY MARCOS Administration Metoprolol Tartrate 25 mg 10/31/23 21:00 11/01/23 08:35 Metoprolol Tartrate 25 Mg Tab PO 11/30/23 20:59 25 mg BID MARCOS Administration Midodrine 5 mg 11/01/23 09:00 11/01/23 08:35 Midodrine Hcl 2.5 Mg Tab PO 12/01/23 08:59 5 mg MoWeFr MARCOS Administration Oxycodone HCl 5 mg 10/31/23 16:20 11/01/23 10:11 Oxycodone Hcl Ir 5 Mg Tab (Immediate Release) PO 11/14/23 16:19 5 mg Q4H PRN Administration Severe Pain (Scale 7, 8, 9,10) Rosuvastatin Calcium 10 mg 11/01/23 09:00 11/01/23 08:35 Rosuvastatin Calcium 10 Mg Tab PO 12/01/23 08:59 10 mg QAM MARCOS Administration Torsemide 100 mg 10/31/23 17:00 11/01/23 08:36 Torsemide 100 Mg Tab PO 11/30/23 16:59 100 mg [id number] MARCOS Administration Venlafaxine HCl 37.5 mg 11/01/23 09:00 11/01/23 08:36 Venlafaxine Hcl Xr 37.5 Mg Capxr PO 12/01/23 08:59 37.5 mg DAILY MARCOS Administration Vitamin B Complex/Folic Acid 1 cap 11/01/23 09:00 11/01/23 08:36 Nephrocaps PO 12/01/23 08:59 1 cap MoWeFr MARCOS Administration (3) COPD (chronic obstructive pulmonary disease) COPD type: chronic bronchitis Chronic bronchitis type: simple Qualified Code(s): J41.0 - Simple chronic bronchitis (7) HTN (hypertension) Hypertension type: unspecified Qualified Code(s): I10 - Essential (primary) hypertension
[2023-11-01] MEDS: HEPARIN SOD (PORCINE) 1000 UNIT/ML IV SCH (14:50)
--- NOTE | 2023-11-01 15:21 | Electrocardiogram Report ---
Test Reason : Blood Pressure : */* mmHG Vent. Rate : 85 BPM Atrial Rate : 85 BPM P-R Int : 190 ms QRS Dur : 142 ms QT Int : 420 ms P-R-T Axes : 38 -71 45 degrees QTcB Int : 499 ms Normal sinus rhythm Left axis deviation Right bundle branch block Septal infarct (cited on or before 26-Aug-2023) Abnormal ECG When compared with ECG of 26-Aug-2023 15:46, Sinus rhythm has replaced Atrial flutter Questionable change in initial forces of Septal leads Confirmed by Aureliano Carpio ([id number]) on 11/01/2023 3:21:04 PM Referred By: REFERRED SELF Confirmed By: Aureliano Carpio
[2023-11-01] MEDS: ONDANSETRON INJ 2 MG/ML 2 ML VIAL IV PRN (19:52)
--- NOTE | 2023-11-01 20:13 | Communication Note ---
Date of Service: November 01, 2023
[2023-11-01] MEDS: ALBUMIN 25% 12.5 GM/50 ML VIAL IV ONE (20:57)
[2023-11-01] MEDS: MIDODRINE HCL 2.5 MG TAB PO STA (20:58)
[2023-11-01] MEDS: METOPROLOL TARTRATE 25 MG TAB PO SCH (23:48)
[2023-11-02] MEDS: DIGOXIN 125 MCG in SYRINGE 9.5 ML IV STA (00:20)
[2023-11-02 00:34] LABS: Magnesium 2.2 mg/dl (1.7-2.4)
[2023-11-02] MEDS: ACETAMINOPHEN 1,000 MG/100 ML VIAL IV STA (00:54)
--- NOTE | 2023-11-02 03:40 | CT Scan Report ---
Exam(s): CT HEAD Without Contrast EXAM: CT Head Without Intravenous Contrast CLINICAL HISTORY: Reason for exam: alex, claudettequis. TECHNIQUE: Axial computed tomography images of the head/brain without intravenous contrast. CTDI is 36.55 mGy and DLP is 625.8 mGy-cm. Automated exposure control was utilized for the study. A dose lowering technique was utilized adhering to the principles of ALARA. COMPARISON: No relevant prior studies available. FINDINGS: Brain: Unremarkable. No hemorrhage. No significant white matter disease. No edema. There is a small meningioma along the anterior falx measuring 7.8 x 7.8 x 5.6 mm. Ventricles: Unremarkable. No ventriculomegaly. Bones/joints: Unremarkable. No acute fracture. Soft tissues: Unremarkable. Sinuses: Unremarkable as visualized. No acute sinusitis. Mastoid air cells: Unremarkable as visualized. No mastoid effusion. IMPRESSION: No evidence of acute intracranial pathology. Electronically signed by: Nasrin Pascal MD 11/02/23 03:39 AM
[2023-11-02 04:28] LABS: Hematocrit (blood only) 27.3 % (42.0-52.0); Hemoglobin 8.2 g/dl (14.0-18.0); Mean Corpuscular Hemoglobin 27.6 pg (25.0-34.0); Mean Corpuscular Volume 91.9 fL (80.0-100.0); Mean Platelet Volume 10.3 fL (9.4-12.4); Platelet Count 121 K/uL (130-400); RDW Coefficient of Variation 16.6 % (11.5-14.5); RDW Standard Deviation 54.8 fL (36.4-46.3); Red Blood Count 2.97 M/uL (4.70-6.10); White Blood Count 10.57 K/ul (4.8-10.8)
[2023-11-02 04:59] LABS: BUN Creatinine Ratio 7.1 (10-20); Calcium 8.3 mg/dl (8.6-10.3); Creatinine Clr Calc Pharmacy 11.8 ml/min; Est GFR (Non-African American) 10.4 ml/min; Magnesium 2.1 mg/dl (1.7-2.4); Phosphorus 6.4 mg/dl (2.5-4.9); Potassium 4.4 mmol/L (3.5-5.1); Troponin I High Sensitivity 33.8 pg/ml (0-20)
[2023-11-02 06:17] LABS: Partial Thromboplastin Ratio 1.2; Partial Thromboplastin Time 33 Seconds (21-31)
--- NOTE | 2023-11-02 08:29 | XRay Report ---
SINGLE VIEW CHEST CLINICAL HISTORY: Dyspnea FINDINGS: An AP, portable, semierect chest radiograph is compared to study dated 10/31/2023. Correlati on is made with chest CT dated 07/02/2023. The heart is enlarged noting atherosclerotic calcification of the thoracic aorta. There is mild pulmonary vascular congestion. Chronic interstitial thickening a nd elevation of the right hemidiaphragm is similar to previous. There is bibasilar scarring/atelectas is. Trace pleural effusions are suspected. No pneumothorax is seen. The bony thorax is grossly intact . Cholecystectomy clips are noted in the right upper quadrant. IMPRESSION: 1. Cardiomegaly with mild pulmonary vascular congestion. 2. Suspect trace pleural effusion. ACT 112: Negative or not required by law. Electronically signed by: Trace Rizzo M.D. 11/02/2023 8:27 AM
--- NOTE | 2023-11-02 08:33 | Electrocardiogram Report ---
Test Reason : Blood Pressure : */* mmHG Vent. Rate : 120 BPM Atrial Rate : 45 BPM P-R Int : * ms QRS Dur : 136 ms QT Int : 378 ms P-R-T Axes : * -68 76 degrees QTcB Int : 534 ms Atrial fibrillation with rapid ventricular response Right bundle branch block Left anterior fascicular block Abnormal ECG When compared with ECG of 31-Oct-2023 12:07, Atrial fibrillation has replaced Sinus rhythm HR has increased by 35 bpm Criteria for Septal infarct are no longer Present Confirmed by Shon Caraballo ([id number]) on 11/02/2023 8:33:03 AM Referred By: REFERRED SELF Confirmed By: Shon Caraballo
--- NOTE | 2023-11-02 09:38 | Hospitalist Progress Note ---
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 Patient with acute on chronic hypoxic resp failure and acute on chronic HFpEF 2/2 volume overload requiring HD. Patient with ongoing a-fib with RVR episodes and hypotension risk requiring midodrine. Unable to tolerate dialysis prior to admission. Issues with post-HD chest tightness and discomfort. 10/31 evening marked by event of nausea, vomiting and RVR requiring digoxin 11/01 with plans for further dialysis and Cards to aid in better rate/rhythm control iso RVR and hypotension during/post HD #Elevated troponin likely demand iso RVR, hypoxia, ESRD trop to 33.8 Manage as follows #Acute on chronic hypoxi resp failure #Acute on chronic heart failure with preserved EF #Volume Overload #ESRD on HD - Diuretics at home: torsemide 100 mg BID, metolazone 5 mg on nondialysis days - pt reports making only " a thimble full" amount of urine once daily. - Consult nephrology to assist with management of volume status - -Plan for HD per nephrology: plan for additional HD today -down 2.6kg since admission - Daily weights. Strict Is and Os #COPD suspect fluid related rather than exacerbation - Continue Spiriva 2 puffs daily, will also add on nebs, no steroids warranted at this time #CAD s/p cardiac stent #Afib #HTN #HLD #Hx of DVT/PE - [id number] of 7 : pt was on coumadin during last admission, and appears he was transitioned to eliquis 2.5 BID as outpatient in mid September. - Metoprolol 25 mg BID (taking after dialysis sessions), cont rosuvastatin 10 mg , also using midodrine 5 mg prior to HD sessions - Torsemide 100 mg BID in morning and at noon - does not sound like the patient is responding to diuretic therapy at this point, and that instead fluid balance will need to be through HD instead. Appreciate nephrology input regarding volume status. Diuretics per Nephrology Cardiology consult placed -Continued runs of a fib rvr, symptomatic during dialysis marked by issues with hypotension, discussion for better control as able #R posterior thigh wound - S/p I & D on Saturday 10/28 at wound clinic in [place], unknown culture results. Suture in place. Was scheduled for removal next week. - Pt was given oxycodone, may continue this for pain control - monitor. give after dialysis #Depression - Venlafaxine 27.5 mg daily DVT ppx: teds, scds, eliquis Lines: PIV x 2 FEN/GI: Renal Diet CODE: FULL Dispo: From home, likely to remain in the hospital x 2 days Admission and Anticipated Discharge Date Admission Date: October 31, 2023 Subjective In the evening 10/31, patient reports sob, dizziness, and nausea/vomiting after diaylsis--shortly there after patient with episode of RVR requiring digoxin Patient irregular this am, but rates better controlled Reports marginal improvement in sob, endorses good appetite this am plan for further HD Physical Exam Constitutional: WD/WN, vitals as above Respiratory: noted minimal conversational dyspnea, rhochi+ Cardiovascular: irregularly irregular, improved BLE edema Results & Data Results & Data Vital Signs (Past 12 Hours) Vital Signs Temp Pulse Pulse Pulse Resp BP Pulse Ox 11/02/23 08:00 11/02/23 07:32 36.7 C 75 18 145/76 H 95 11/02/23 07:30 83 18 97 11/02/23 07:00 76 11/02/23 03:35 36.6 C 92 H 18 128/63 95 11/02/23 03:33 94 H 22 92 11/02/23 00:30 98 H 20 128/63 11/02/23 00:20 110 H 11/02/23 00:15 117 H 11/02/23 00:07 142 H 11/02/23 00:00 150 H 107/65 11/01/23 23:53 154 H 11/01/23 23:25 112 H 11/01/23 23:20 36.6 C 102 H 18 124/51 L 92 11/01/23 23:00 95 H 22 93 11/01/23 22:14 103 H 128/49 L O2 Del Method O2 Flow Rate 11/02/23 08:00 Nasal Cannula 3 11/02/23 07:32 Nasal Cannula 3 11/02/23 07:30 Nasal Cannula 3 11/02/23 07:00 11/02/23 03:35 Nasal Cannula 4 11/02/23 03:33 Nasal Cannula 4 11/02/23 00:30 Room Air 4 11/02/23 00:20 11/02/23 00:15 11/02/23 00:07 11/02/23 00:00 11/01/23 23:53 11/01/23 23:25 11/01/23 23:20 Nasal Cannula 4 11/01/23 23:00 Nasal Cannula 4 11/01/23 22:14 (3) COPD (chronic obstructive pulmonary disease) COPD type: chronic bronchitis Chronic bronchitis type: simple Qualified Code(s): J41.0 - Simple chronic bronchitis (7) HTN (hypertension) Hypertension type: unspecified Qualified Code(s): I10 - Essential (primary) hypertension
[2023-11-02] MEDS: MICONAZOLE NITRATE POWDER 85 GM EXT PRN (09:40)
[2023-11-02] MEDS: MIDODRINE HCL 2.5 MG TAB PO STA (14:00)
--- NOTE | 2023-11-02 14:01 | Nephrology Progress Note ---
Date of Service November 02, 2023 Assessment & Plan (1) End-stage renal disease (ESRD): Plan: Patient with ESRD on dialysis Saturday using right upper arm AV fistula. Electrolytes are stable but patient is still having SOB , this is better after HD yesterday. Will dialyze him for 3.5 hours -3 L. (2) Acute on chronic respiratory failure with hypoxia and hypercapnia: Plan: Likely due to COPD exacerbation and volume overload. Patient is on bronchodilators. Will optimize fluid status with dialysis. (3) Anemia of chronic renal failure: Plan: Hemoglobin of 8.4. Received Epogen 10,000 yesterday. Admission and Anticipated Discharge Date Admission Date: October 31, 2023 Subjective More alert, but in mild respiratory distress Review of Systems 2 Review of Systems: All other systems were reviewed and negative except as noted in HPI Results & Data Vital Signs (Past 12 Hours) Vital Signs Temp Pulse Pulse Pulse Resp BP Pulse Ox 11/02/23 11:22 36.7 C 80 18 150/62 H 90 11/02/23 08:00 11/02/23 07:32 36.7 C 75 18 145/76 H 95 11/02/23 07:30 83 18 97 11/02/23 07:00 76 11/02/23 03:35 36.6 C 92 H 18 128/63 95 11/02/23 03:33 94 H 22 92 O2 Del Method O2 Flow Rate 11/02/23 11:22 Nasal Cannula 4 11/02/23 08:00 Nasal Cannula 3 11/02/23 07:32 Nasal Cannula 3 11/02/23 07:30 Nasal Cannula 3 11/02/23 07:00 11/02/23 03:35 Nasal Cannula 4 11/02/23 03:33 Nasal Cannula 4 Laboratory Results 11/02/23 03:57 11/02/23 03:57
[2023-11-02] MEDS: cephALEXin 250 MG CAP PO SCH (16:48)
[2023-11-02 17:26] LABS: Hematocrit (blood only) 28.3 % (42.0-52.0); Hemoglobin 8.5 g/dl (14.0-18.0)
[2023-11-03 06:35] LABS: Hematocrit (blood only) 24.8 % (42.0-52.0); Hemoglobin 7.7 g/dl (14.0-18.0); Mean Corpuscular Hemoglobin 28.1 pg (25.0-34.0); Mean Corpuscular Volume 90.5 fL (80.0-100.0); Mean Platelet Volume 9.7 fL (9.4-12.4); Platelet Count 121 K/uL (130-400); RDW Coefficient of Variation 16.3 % (11.5-14.5); RDW Standard Deviation 53.1 fL (36.4-46.3); Red Blood Count 2.74 M/uL (4.70-6.10); White Blood Count 8.02 K/ul (4.8-10.8)
[2023-11-03 07:19] LABS: BUN Creatinine Ratio 6.7 (10-20); Calcium 8.4 mg/dl (8.6-10.3); Creatinine Clr Calc Pharmacy 9.8 ml/min; Est GFR (African American) 9.6 ml/min; Est GFR (Non-African American) 8.3 ml/min; Magnesium 2.1 mg/dl (1.7-2.4); Phosphorus 6.7 mg/dl (2.5-4.9); Potassium 4.4 mmol/L (3.5-5.1)
--- NOTE | 2023-11-03 09:14 | Cardiology Consultation ---
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 Not sustained -Secondary to volume overload and CHF exacerbation, likely will improve with diuresis Case discussed with Dr Morse. I spent a total of 34 minutes on the date of service in preparation, delivery, and documentation of the care provided to this patient, excluding any time spent in the performance of separately billed services. Terri Morales PA-C Department of Cardiology, [facility] This chart was completed in part utilizing Speech Voice Recognition Software. Grammatical errors, random word insertions, pronoun errors, and incomplete sentences are an occasional consequence of this system due to software limitations, ambient noise, and hardware issues. Any formal questions or concerns about the content, text, or information contained within the body of this dictation should be directly addressed to the provider for clarification. Supervising Physician Co-Signing Physician Notes I have reviewed the advance practitioner's documentation, and I agree with, and take responsibility for the plan of care. I have personally performed a history and physical examination on the patient. I spent a total of 40 minutes on the date of service in preparation, delivery, and documentation of the care provided to this patient, excluding any time spent in the performance of separately billed service 83-year-old male with a past medical history of CAD, paroxysmal atrial fibrillation, end-stage renal disease presented to hospital with worsening shortness of breath with exertion. He has been having difficulty tolerating full dialysis sessions due to low blood pressure. He continues to make urine. He otherwise denies chest pain, dyspnea at rest, palpitations, or syncope. On admission he was also noted to be in atrial fibrillation rapid ventricular response. He underwent hemodialysis yesterday and feeling better today but still feels volume overloaded. His atrial fibrillation rates are much better controlled in the 80s. Continue with hemodialysis per nephrology recommendations. Continue monitor on telemetry. History of Present Illness Reason for Consultation: CHF Requesting Physician: Dr. Matthew Attending Physician: Fabiana Matthew MD History of Present Illness Justin Pinedo is an 83 year old male with PMHx ESRD on HD, CHF, AFIB, Hx DVT/PE (previously on warfarin), remote hx CAD with stent, HTN, 02 dependent COPD (4L), MOLLY, hx CVA that presented to [facility] ED with BLE edema, abdominal distention and RAMSEY x1 week. Reports dry weight 92kg, 95.7kg on admission. Patient admitted to [facility] 08/25-08/28 with COPD exacerbation and new onset AFIB RVR treated with IV and coreg changed to metoprolol for rate control. Eliquis started. Echocardiogram with normal LVEF. Patient reports being dialyzed yesterday with improvement in LE edema and abdominal distention. Continues with mild abdominal distention and poor appetite. Denies chest pain, palpitations Feels breathing is around baseline. Allergies Allergy/AdvReac Type Severity Reaction Status Date / Time lorazepam AdvReac Intermediate Hallucinati Verified 09/16/23 08:39 ng/Confusio n Home Medications Medication Instructions Recorded Confirmed Type venlafaxine 37.5 mg 37.5 mg PO DAILY 02/01/22 10/31/23 History capsule,extended release 24 hr (Effexor XR) tamsulosin 0.4 mg capsule (Flomax) 0.4 mg PO QAM 06/19/22 10/31/23 History hydroxyzine HCl 50 mg tablet 50 mg PO HS PRN Insomnia 05/14/23 10/31/23 History nitroglycerin 0.4 mg sublingual 0.4 mg sublingual UD PRN Chest Pain 05/14/23 10/31/23 History tablet (Nitrostat) rosuvastatin 10 mg tablet 10 mg PO QAM 05/14/23 10/31/23 History buspirone 5 mg tablet 5 mg PO AMHS 08/26/23 10/31/23 History glycopyrrolate 9 mcg-formoterol 1 puff inhalation BID 08/26/23 10/31/23 History 4.8 mcg HFA aerosol inhaler (Bevespi Aerosphere) midodrine 5 mg tablet 5 mg PO 3XWK 08/26/23 10/31/23 History torsemide 20 mg tablet 100 mg PO BID 08/26/23 10/31/23 History vitamin B complex-vitamin C-folic 1 tab PO 3XWK 08/26/23 10/31/23 History acid 0.8 mg tablet (Izzy-Vianney) apixaban 2.5 mg tablet (Eliquis) 2.5 mg PO BID #60 tabs 08/29/23 10/31/23 Rx metoprolol tartrate 25 mg tablet 25 mg PO BID #60 tabs 08/29/23 10/31/23 Rx ipratropium 0.5 mg-albuterol 3 mg 3 ml NEB QIDR PRN Other 10/31/23 10/31/23 History (2.5 mg base)/3 mL nebulization soln metolazone 5 mg tablet 5 mg PO UD 10/31/23 10/31/23 History oxycodone 5 mg tablet 5 mg PO DIRECTED PRN Pain 10/31/23 10/31/23 History Patient History Medical History Multifocal pneumonia History of DVT (deep vein thrombosis) Left renal mass Pneumonia due to COVID-19 virus Urinary frequency Hx of blood clots "IN MY LEGS AND 1 IN MY LUNGS A LONG TIME AGO">WAS ON BLOOD THINNERS, CAUSED BY PHLEBITIS History of COVID-19 02/02/22>STILL HAS FATIGUE Adjustment disorder with mixed disturbance of emotions and conduct History of basal cell carcinoma Carotid stenosis, right 50-69% stenosis to right ICA; <50% stenosis to left ICA per 06/22/21 carotid duplex History of stroke 2017 OR 2018 >NO RESIDUAL History of NM (myocardial infarction) 1998 MOLLY and COPD overlap syndrome WEARS 4L O2 AT HS Prediabetes PT DENIES Renal osteodystrophy Papillary renal cell carcinoma WITH MALIGNANCY>NO TREATMENT YET (CURRENT DX) Surgical History History of anesthesia reaction SLOW TO WAKE UP History of arthroscopy LEFT KNEE History of colonoscopy History of tooth extraction History of tonsillectomy History of cataract surgery RT/LEFT History of cholecystectomy History of appendectomy History of heart artery stent 1998>? # STENTS PLACED IN [facility] (FOLLWED BY DR. [facility]) Family History Other Colorectal cancer No family history of adverse response to anesthesia Social History Smoking Status: Former smoker Second Hand Exposure: No; Do You Dip or Chew Tobacco: No; Hx Alcohol Use: No Hx Substance Use: No Preferred Language: [place] Communication Ability: Effective Communication Tools: Other Utility Spray Operator Required: Yes Beliefs That Will Affect Care: None Current Living Situation: Spouse Other Information That Helps Us Care for You: No Feels Safe at Home: Yes Safety Concerns: Feels Safe At This Time Assistive Devices: Cane, Oxygen - Continuous and Walker Review of Systems Review of Systems: All systems reviewed & are unremarkable except as noted in HPI & below Physical Exam Constitutional: WD/WN, vitals as above + obese Eyes: PERRL, conjunctivae normal, anicteric sclerae Respiratory: + labored breathing, + tachypneic and + audible wheezes; no respiratory distress Auscultation: + wheezes; no crackles and no rales Cardiovascular: Rate/Rhythm: regular rate and + irregularly irregular Heart Sounds: normal S1 and normal S2; no murmur Vessels: no JVD Extremities: no edema Skin: no rashes, warm and dry Neurologic: Somnolent, but arousable Psychiatric: A+Ox3, euthymic affect Results & Data Vital Signs (Past 12 Hours) Vital Signs Temp Pulse Pulse Pulse Resp BP Pulse Ox 11/03/23 08:00 36.6 C 78 20 134/68 92 11/03/23 07:00 85 11/03/23 06:03 88 11/03/23 05:53 69 20 93 11/03/23 03:31 37.1 C 72 18 116/63 92 11/03/23 02:47 92 H 11/03/23 02:35 36.9 C 94 H 20 106/59 L 94 11/02/23 23:19 36.9 C 72 18 105/47 L 90 11/02/23 22:57 77 19 94 11/02/23 22:42 80 132/64 94 11/02/23 21:54 71 O2 Del Method O2 Flow Rate 11/03/23 08:00 Nasal Cannula 4 11/03/23 07:00 11/03/23 06:03 11/03/23 05:53 Nasal Cannula 4 11/03/23 03:31 Nasal Cannula 4 11/03/23 02:47 11/03/23 02:35 Nasal Cannula 4 11/02/23 23:19 Nasal Cannula 4 11/02/23 22:57 Nasal Cannula 4 11/02/23 22:42 Nasal Cannula 4 11/02/23 21:54 Laboratory Results CBC 11/02/23 11/03/23 Range/Units 16:56 06:06 WBC 8.02 (4.8-10.8) K/ul RBC 2.74 L (4.70-6.10) M/uL Hgb 8.5 L 7.7 L (14.0-18.0) g/dl Hct 28.3 L 24.8 L (42.0-52.0) % Plt Count 121 L (130-400) K/uL Comprehensive Metabolic Panel 11/03/23 Range/Units 06:06 Sodium 134 L (136-145) mmol/L Potassium 4.4 (3.5-5.1) mmol/L Chloride 95 L (98-107) mmol/L Carbon Dioxide 30 (21-32) mmol/L BUN 39 H (6-23) mg/dl Creatinine 5.78 H* D (0.6-1.4) mg/dl Glucose 156 H (70-99(Fasting)) mg/dl Calcium 8.4 L (8.6-10.3) mg/dl Intake and Output 11/02/23 11/03/23 11/03/23 22:59 06:59 14:59 Intake Total 320 / 800 Balance 320 / 799 Intake: Oral 320 / 800 Other: Hemodialysis Ultrafiltration 2,000 Amount # Unmeasured Voids 1 Weight 93.3 kg Weight Measurement Method Built in [facility] Diagnostic Findings EKG 11/02/2023 AFIB RVR 120bpm RBBB LAFB CXR 10/31/2023 no acute cardiopulmonary findings ECHO 08/28/2023 LVEF 60-64% moderate concentric LVH no regional WMA Left atrium moderately dilated Aortic valve sclerosis, moderate without aortic stenosis
--- NOTE | 2023-11-03 10:39 | Hospitalist Progress Note ---
Date of Service November 03, 2023 Assessment & Plan (1) Volume overload: (2) Restrictive lung disease: (3) COPD (chronic obstructive pulmonary disease): (4) Chronic hypoxemic respiratory failure: (5) End-stage renal disease (ESRD): (6) Coronary artery disease: (7) HTN (hypertension): (8) Dyslipidemia: (9) Atrial fibrillation with RVR: Plan Mr Pinedo is an 83 y/o male with a complex medical history including CAD s/p stent, ESRD with recent HD start, O2 dependent COPD, MOLLY, HTN, prior CVA with right weakness, prediabetes, prior DVT/PE (was on warfarin), and other history as outlined below who presents to the ED 10/31/2023 with progressive swelling of the lower extremities and increased dyspnea on exertion. Patient with acute on chronic hypoxic resp failure and acute on chronic HFpEF 2/2 volume overload requiring HD. Patient with ongoing a-fib with RVR episodes and hypotension risk requiring midodrine. Unable to tolerate dialysis prior to admission. Issues with post-HD chest tightness and discomfort. 10/31 evening marked by event of nausea, vomiting and RVR requiring digoxin 11/01 with plans for further dialysis and Cards to aid in better rate/rhythm control iso RVR and hypotension during/post HD Patient accidentally pulled cannuala from arm with noted blood loss in HD. No transfusion required, however, hgb 8.8-7.7 am 11/02 Cardiology plans to continue current regimen. No Hd today, likely in am. Concern that area of I&D on LLE is with superficial cellulitis given progressive pain and erythema/drainage. Will request wound care to revisit. Plan to escalate abx to cefepime from keflex given progression Sat at bedside with patient and family members. Family reports noted concern with diet and unclear directions on nutrition. Agreed to have lead applier stop by to aid and clarify diet restrictions and how to get protein in properly without issues with HD diet. #Elevated troponin likely demand iso RVR, hypoxia, ESRD trop to 33.8 Manage as follows #Acute on chronic hypoxic resp failure #Acute on chronic heart failure with preserved EF #Volume Overload #ESRD on HD Baseline 3-4L continuous - Diuretics at home: torsemide 100 mg BID, metolazone 5 mg on nondialysis days - pt reports making only " a thimble full" amount of urine once daily. - Consult nephrology to assist with management of volume status - -Plan for HD per nephrology: no HD today, requested info on proper fluid re striction for patient -down 2.6kg since admission - Daily weights. Strict Is and Os #COPD suspect fluid related rather than exacerbation - Continue Spiriva 2 puffs daily, will also add on nebs, no steroids warranted at this time #CAD s/p cardiac stent #Afib #HTN #HLD #Hx of DVT/PE - [id number] of 7 : pt was on coumadin during last admission, and appears he was transitioned to eliquis 2.5 BID as outpatient in mid September. - Metoprolol 25 mg BID (taking after dialysis sessions), cont rosuvastatin 10 mg , also using midodrine 5 mg prior to HD sessions - Torsemide 100 mg BID in morning and at noon - does not sound like the patient is responding to diuretic therapy at this point, and that instead fluid balance will need to be through HD instead. Appreciate nephrology input regarding volume status. Diuretics per Nephrology Cardiology consult placed -Continued runs of a fib rvr, symptomatic during dialysis marked by issues with hypotension, discussion for better control as able -Cardiology recommends continuing current regimen with no planned changes at this time #L posterior thigh wound - S/p I & D on Saturday 10/28 at wound clinic in [place], unknown culture results. Suture in place. Was scheduled for removal next week. - Pt was given oxycodone, may continue this for pain control - monitor. give after dialysis -Started on keflex day prior given signs of surround erythema and drainage, however, more indurated today--therefore will start IV cefepime,, MRSA nare negative -Wound care to reevaluate #Depression - Venlafaxine 27.5 mg daily DVT ppx: teds, scds, eliquis Lines: PIV x 2 FEN/GI: Renal Diet CODE: FULL Admission and Anticipated Discharge Date Admission Date: October 31, 2023 Subjective Reports worsening pain on back of leg--seems more irritated and with more drainage States otherwise he feels better from a respiratory standpoint Denies any chest pain, nausea, vomiting, reports resp status at bedside Physical Exam Constitutional: WD/WN, vitals as above Respiratory: diminished bibasilar, on 4L Cardiovascular: irregularly irregular Skin: induration up inner thigh progressed from day prior Results & Data Results & Data Vital Signs (Past 12 Hours) Vital Signs Temp Pulse Pulse Pulse Resp BP Pulse Ox 11/03/23 10:27 81 8 L 93 11/03/23 10:23 87 L 11/03/23 08:00 11/03/23 08:00 36.6 C 78 20 134/68 92 11/03/23 07:00 85 11/03/23 06:03 88 11/03/23 05:53 69 20 93 11/03/23 03:31 37.1 C 72 18 116/63 92 11/03/23 02:47 92 H 11/03/23 02:35 36.9 C 94 H 20 106/59 L 94 11/02/23 23:19 36.9 C 72 18 105/47 L 90 11/02/23 22:57 77 19 94 11/02/23 22:42 80 132/64 94 O2 Del Method O2 Flow Rate 11/03/23 10:27 Nasal Cannula 4 11/03/23 10:23 11/03/23 08:00 Nasal Cannula 4 11/03/23 08:00 Nasal Cannula 4 11/03/23 07:00 11/03/23 06:03 11/03/23 05:53 Nasal Cannula 4 11/03/23 03:31 Nasal Cannula 4 11/03/23 02:47 11/03/23 02:35 Nasal Cannula 4 11/02/23 23:19 Nasal Cannula 4 11/02/23 22:57 Nasal Cannula 4 11/02/23 22:42 Nasal Cannula 4 Laboratory Results Short CBC 11/02/23 11/03/23 Range/Units 16:56 06:06 WBC 8.02 (4.8-10.8) K/ul Hgb 8.5 L 7.7 L (14.0-18.0) g/dl Hct 28.3 L 24.8 L (42.0-52.0) % Plt Count 121 L (130-400) K/uL BMP 11/03/23 06:06 Sodium 134 L Potassium 4.4 Chloride 95 L Carbon Dioxide 30 BUN 39 H Creatinine 5.78 H* D Glucose 156 H Calcium 8.4 L Medications Administered Home Medications Medication Instructions Recorded Confirmed Last Taken venlafaxine 37.5 mg 37.5 mg PO DAILY 02/01/22 10/31/2324 capsule,extended release 24 hr (Effexor XR) tamsulosin 0.4 mg capsule (Flomax) 0.4 mg PO QAM 06/19/22 10/31/23 10/31/23 hydroxyzine HCl 50 mg tablet 50 mg PO HS PRN Insomnia 05/14/23 10/31/23 Unknown nitroglycerin 0.4 mg sublingual 0.4 mg sublingual UD PRN Chest Pain 05/14/23 10/31/23 Unknown tablet (Nitrostat) rosuvastatin 10 mg tablet 10 mg PO QAM 05/14/23 10/31/23 10/31/23 buspirone 5 mg tablet 5 mg PO AMHS 08/26/23 10/31/23 10/31/23 glycopyrrolate 9 mcg-formoterol 1 puff inhalation BID 08/26/23 10/31/23 10/31/23 4.8 mcg HFA aerosol inhaler (Bevespi Aerosphere) midodrine 5 mg tablet 5 mg PO 3XWK 08/26/23 10/31/23 Unknown torsemide 20 mg tablet 100 mg PO BID 08/26/23 10/31/23 10/31/23 vitamin B complex-vitamin C-folic 1 tab PO 3XWK 08/26/23 10/31/23 Unknown acid 0.8 mg tablet (Izzy-Vianney) apixaban 2.5 mg tablet (Eliquis) 2.5 mg PO BID #60 tabs 08/29/23 10/31/23 10/31/23 metoprolol tartrate 25 mg tablet 25 mg PO BID #60 tabs 08/29/23 10/31/23 Unknown ipratropium 0.5 mg-albuterol 3 mg 3 ml NEB QIDR PRN Other 10/31/23 10/31/23 Unknown (2.5 mg base)/3 mL nebulization soln metolazone 5 mg tablet 5 mg PO UD 10/31/23 10/31/23 Unknown oxycodone 5 mg tablet 5 mg PO DIRECTED PRN Pain 10/31/23 10/31/23 10/30/23 Active Medications Generic Name Dose Route Start Last Admin Trade Name Freq PRN Reason Stop Dose Admin Albuterol 3 ml 10/31/23 16:20 11/03/23 10:27 Albut/Ipratrop 3mg/0.5mg Neb 3 Ml Vial NEB 11/30/23 16:19 3 ml Q4R MARCOS Administration Protocol Apixaban 2.5 mg 10/31/23 21:00 11/03/23 08:21 Apixaban 2.5 Mg Tab PO 11/30/23 20:59 2.5 mg BID MARCOS Administration Bisacodyl 10 mg 10/31/23 16:20 11/03/23 08:21 Bisacodyl 5 Mg Tabec PO 11/30/23 16:19 10 mg DAILY MARCOS Administration Cephalexin HCl 250 mg 11/02/23 17:00 11/03/23 04:52 Cephalexin 250 Mg Cap PO 11/09/23 16:59 250 mg Q12H MARCOS Administration Protocol Metoprolol Tartrate 25 mg 11/01/23 23:35 11/03/23 08:22 Metoprolol Tartrate 25 Mg Tab PO 12/01/23 23:34 25 mg BID MARCOS Administration Miconazole Nitrate 1 appln 11/02/23 09:01 11/02/23 09:40 Miconazole Nitrate Powder 85 Gm EXT 12/02/23 09:00 1 appln BID PRN Administration Affected Skin Folds Midodrine 5 mg 11/01/23 09:00 11/01/23 08:35 Midodrine Hcl 2.5 Mg Tab PO 12/01/23 08:59 5 mg MoWeFr MARCOS Administration Ondansetron HCl 4 mg 10/31/23 16:20 11/01/23 19:52 Ondansetron Inj 2 Mg/Ml 2 Ml Vial IV 11/30/23 16:19 4 mg Q4H PRN Administration Nausea And Vomiting Oxycodone HCl 5 mg 10/31/23 16:20 11/03/23 08:24 Oxycodone Hcl Ir 5 Mg Tab (Immediate Release) PO 11/14/23 16:19 5 mg Q4H PRN Administration Severe Pain (Scale 7, 8, 9,10) Rosuvastatin Calcium 10 mg 11/01/23 09:00 11/03/23 08:21 Rosuvastatin Calcium 10 Mg Tab PO 12/01/23 08:59 10 mg QAM MARCOS Administration Torsemide 100 mg 10/31/23 17:00 11/03/23 08:21 Torsemide 100 Mg Tab PO 11/30/23 16:59 100 mg BID17 MARCOS Administration Venlafaxine HCl 37.5 mg 11/01/23 09:00 11/03/23 08:22 Venlafaxine Hcl Xr 37.5 Mg Capxr PO 12/01/23 08:59 37.5 mg DAILY MARCOS Administration Vitamin B Complex/Folic Acid 1 cap 11/01/23 09:00 11/01/23 08:36 Nephrocaps PO 12/01/23 08:59 1 cap MoWeFr MARCOS Administration (3) COPD (chronic obstructive pulmonary disease) COPD type: chronic bronchitis Chronic bronchitis type: simple Qualified Code(s): J41.0 - Simple chronic bronchitis (7) HTN (hypertension) Hypertension type: unspecified Qualified Code(s): I10 - Essential (primary) hypertension
[2023-11-03] MEDS: CEFEPIME 1,000 MG in SYRINGE 0 ML IV STA (15:12)
[2023-11-04] MEDS ORDERED: SODIUM CHLORIDE 0.9% 1,000 ML IV PRN (07:07)
[2023-11-04 07:17] LABS: Hemoglobin 7.2 g/dl (14.0-18.0); Mean Corpuscular Volume 89.9 fL (80.0-100.0); Mean Platelet Volume 9.9 fL (9.4-12.4); Platelet Count 107 K/uL (130-400); RDW Standard Deviation 52.5 fL (36.4-46.3); Red Blood Count 2.67 M/uL (4.70-6.10); White Blood Count 6.76 K/ul (4.8-10.8)
[2023-11-04 07:28] LABS: Est GFR (African American) 6.1 ml/min; Potassium 4.4 mmol/L (3.5-5.1)
[2023-11-04 07:29] LABS: BUN Creatinine Ratio 6.7 (10-20); Calcium 8.2 mg/dl (8.6-10.3); Creatinine Clr Calc Pharmacy 6.7 ml/min; Est GFR (Non-African American) 5.3 ml/min; Magnesium 2.3 mg/dl (1.7-2.4); Phosphorus 8.3 mg/dl (2.5-4.9)
[2023-11-04] MEDS: HEPARIN SOD (PORCINE) 1000 UNIT/ML IV ONE (09:36)
--- NOTE | 2023-11-04 10:22 | Cardiology Progress Note ---
Date of Service November 04, 2023 Assessment & Plan (1) Atrial fibrillation with RVR: (2) Chronic hypoxemic respiratory failure: (3) Acute on chronic diastolic HF (heart failure): Plan Volume overload. Patient with end stage renal disease, on hemodialysis. Volume management as per Nephrology. Prior to arrival torsemide and metolazone as per Nephrology. Symptomatic paroxysmal atrial fibrillation with a rapid ventricular response. Metoprolol tartrate held this AM. Resume metoprolol tartrate at 25 mg twice a day, continuing without interruption. Maintain telemetry, RE: conduction system disease - chronic right bundle branch block, left anterior fascicular block. ? candidate for antiarrhythmic therapy with amiodarone given underlying pulmonary disease. Check TSH and LFT's. [id number] Score 7 points. Continue reduced dose apixaban (Eliquis) anticoagulation given age greater than 80 and the end-stage kidney disease. ASCVD. Remote history of DE. Status post PCI of the LCX in 1998. Last coronary angiography was in 2019, revealing a patent stent and mild luminal i rregularities. Continue beta-harish and statin. Patient is chronically not prescribed ASA 81 mg/day. Oxygen dependent COPD, chronic respiratory failure. Patient maintaining SP02, on chronic oxygen supplementation, 4 L/min via NC Hypertension, with moderate LVH Dyslipidemia. Continue rosuvastatin, maximum dose of 10 mg/day History of prior CVA with right sided weakness History of prior DVT/PE Admission and Anticipated Discharge Date Admission Date: October 31, 2023 Supervising Physician Co-Signing Physician Notes I have personally performed a history and physical examination on the patient. I have reviewed the advance practitioner's documentation, and I agree with, and take responsibility for the plan of care. 83-year-old male with acute on chronic heart failure, and atrial fibrillation with rapid ventricular response. Recommend continue volume management via hemodialysis. Metolazone and torsemide per direction of nephrology. Resume beta-harish therapy. Continue reduced dose apixaban for anticoagulation. I spent a total of 35 minutes on the date of service in preparation, delivery, and documentation of the care provided to this patient, excluding any time spent in the performance of separately billed services. Mike Gooden DO, [facility] Subjective Patient seen and examined while undergoing hemodialysis. Chart, medications, and telemetry reviewed. Lapsed back into atrial fibrillation this AM around 08:20 AM + chest tightness, currently in atrial fibrillation with a rapid ventricular response + Expiratory wheezing observed with patient reporting improvement in dyspnea and fluid retention since admission. Urine output was less than a keira cup per day prior to arrival, none since yesterday. Review of Systems Review of Systems: Complete Review of Systems is as stated above, negative, or noncontributory. Physical Exam Physical Exam: General: A&Ox3. NAD. HENT: Normocephalic. Atraumatic. Eyes: PER. Conjunctiva pink, sclera clear. Neck: No overt JVD. Heart: Irregularly irregular at 130 bpm. Lungs: Diffuse expiratory wheezing anteriorly. Abdomen: +BS. Soft. Nontender. No masses or organomegaly. Extremities: No edema. Limited neurological examination is without focal deficits. Pulses: Posterior tibial=1/4. Results & Data Vital Signs (Past 12 Hours) Vital Signs Temp Pulse Pulse Pulse Pulse Resp BP 11/04/23 08:04 36.6 C 81 19 148/75 H 11/04/23 08:00 11/04/23 07:00 75 11/04/23 06:53 77 18 11/04/23 03:40 74 20 11/04/23 03:16 36.9 C 70 18 122/67 11/03/23 23:49 82 19 11/03/23 23:34 86 Pulse Ox O2 Del Method O2 Flow Rate 11/04/23 08:04 95 Nasal Cannula 4 11/04/23 08:00 Nasal Cannula 4 11/04/23 07:00 11/04/23 06:53 95 Nasal Cannula 4 11/04/23 03:40 93 Nasal Cannula 4 11/04/23 03:16 96 Nasal Cannula 4 11/03/23 23:49 92 Nasal Cannula 4 11/03/23 23:34 Laboratory Results CBC 11/04/23 Range/Units 06:40 WBC 6.76 (4.8-10.8) K/ul RBC 2.67 L (4.70-6.10) M/uL Hgb 7.2 L (14.0-18.0) g/dl Hct 24.0 L (42.0-52.0) % Plt Count 107 L (130-400) K/uL Comprehensive Metabolic Panel 11/04/23 Range/Units 06:40 Sodium 133 L (136-145) mmol/L Potassium 4.4 (3.5-5.1) mmol/L Chloride 94 L (98-107) mmol/L Carbon Dioxide 27 (21-32) mmol/L BUN 56 H (6-23) mg/dl Creatinine 8.39 H* D (0.6-1.4) mg/dl Glucose 138 H (70-99(Fasting)) mg/dl Calcium 8.2 L (8.6-10.3) mg/dl Intake and Output 11/03/23 11/04/23 11/04/23 22:59 06:59 14:59 Intake Total 120 / 600 240 / 600 Output Total 400 / 400 Balance 120 / 200 -160 / 200 Intake: Oral 120 / 600 240 / 600 Output: Urine 400 / 400 Other: # Unmeasured Voids 0 Weight 91.3 kg Weight Measurement Method Standing Scale Diagnostic Findings Telemetry: Sinus rhtythm initially this AM, lapsing in to atrial fibrillation around 08:20 AM, currently in atrial fibrillation with a RVR (up to 160 bpm). August 27, 2023 TTE Interpretation Summary ([facility], Dr. Gooden): Technically limited. LVEF 60 to 65%. Moderate concentric LVH. No regional wall motion abnormalities. Moderately dilated left atrium. Moderate aortic valve sclerosis, without significant stenosis.
--- NOTE | 2023-11-04 10:37 | Nephrology Progress Note ---
Date of Service November 04, 2023 Assessment & Plan (1) End-stage renal disease (ESRD): Plan: Patient with ESRD on dialysis Saturday using right upper arm AV fistula. Electrolytes are stable but patient is still having SOB/wheezing w/ his current PNA though he does feel better >> at baseline 02. -trial extra dialysis for today 3 hrs (last HD cut short by AVF infiltration and had 2.5L UF that tx; 3L on 10/31) >>plan was for 3 hr tx; however given AF w/ RVR that settles/improves w/ stopping UF, will stop treatment/reevaluate in AM Care coordianted with hospitalist. High risk pt w/ complex medical needs today as above. (2) Acute on chronic respiratory failure with hypoxia and hypercapnia: Plan: Likely due to COPD exacerbation and volume overload. Patient is on bronchodilators. Will optimize fluid status with dialysis. (3) Anemia of chronic renal failure: Plan: Hemoglobin of 8.4. Received Epogen 10,000 earlier this admission; will avoid standing [facility] d/t know RCC moving forward. Admission and Anticipated Discharge Date Admission Date: October 31, 2023 Subjective seen on early AM rounds; feels better overall than he did; still sob, still coughing/wheezing. agrees to extra HD to optimize vol status >> called by HD nurse after about 60 min on tx >> pt with chest tightness, AF w/ RVR to 150s and SBP to 70s; w/ stopping UF, SBP to 107/47 and HR to mid 90s. Review of Systems 2 Review of Systems: All systems reviewed & are unremarkable except as noted in Subjective Physical Exam 2 Constitutional: well developed (sitting in bed on 4L 02nc) and well nourished; no acute distress Eyes: EOM intact bilaterally ENMT: Ears: no external ear abnormality Nose: no external nose abnormality Mouth: + dry oral mucous membranes Neck: no nuchal rigidity Respiratory: normal respiratory effort and able to speak in complete sentences; no respiratory distress and no labored breathing Auscultation: + diminished lung sounds and + wheezes (exp) Cardiovascular: Rate/Rhythm: + tachycardic (in 90s when I evaluated at 0730) Gastrointestinal (Abdomen): Inspection/Auscultation: normal bowel sounds P ercussion/Palpation: abdomen soft; abdomen nontender Musculoskeletal: Extremities: strength 5/5 throughout Skin: no rashes, warm and dry Neurologic: iglesias, fluent speech, no tremor Psychiatric: Orientation: alert and oriented x 3 Results & Data Vital Signs (Past 12 Hours) Vital Signs Temp Pulse Pulse Pulse Pulse Resp BP 11/04/23 08:04 36.6 C 81 19 148/75 H 11/04/23 08:00 11/04/23 07:00 75 11/04/23 06:53 77 18 11/04/23 03:40 74 20 11/04/23 03:16 36.9 C 70 18 122/67 11/03/23 23:49 82 19 11/03/23 23:34 86 Pulse Ox O2 Del Method O2 Flow Rate 11/04/23 08:04 95 Nasal Cannula 4 11/04/23 08:00 Nasal Cannula 4 11/04/23 07:00 11/04/23 06:53 95 Nasal Cannula 4 11/04/23 03:40 93 Nasal Cannula 4 11/04/23 03:16 96 Nasal Cannula 4 11/03/23 23:49 92 Nasal Cannula 4 11/03/23 23:34 Laboratory Results 11/04/23 06:40 11/04/23 06:40
[2023-11-04] MEDS: HEPARIN SOD (PORCINE) 1000 UNIT/ML IV SCH (10:58)
[2023-11-04 12:00] LABS: Albumin Level 3.7 gm/dl (3.4-5.0); Bilirubin,Total 0.4 mg/dl (0.2-1.0); Total Protein 6.4 gm/dl (6.0-8.3)
[2023-11-04 12:15] LABS: Thyroid Stimulating Hormone 0.752 uIu/ml (0.300-4.500)
--- NOTE | 2023-11-04 12:17 | Hospitalist Progress Note ---
Date of Service November 04, 2023 Assessment & Plan (1) Atrial fibrillation with RVR: (2) Volume overload: (3) Open thigh wound: (4) Chronic hypoxemic respiratory failure: (5) Restrictive lung disease: (6) COPD (chronic obstructive pulmonary disease): (7) End-stage renal disease (ESRD): (8) Coronary artery disease: (9) HTN (hypertension): (10) Anemia of chronic renal failure: Plan Patient remains critically ill requiring hospital level care due to uncontrolled heart rates and fluctuating blood pressures. Extensive communication with cardiology and nephrology services. Will reattempt hemodialysis again tomorrow. Rate control to be managed by cardiology Discussed possible transfusion of PRBC, patient's hemoglobin is slightly lower than his baseline. Will anticipate transfusing tomorrow while on hemodialysis Continue his oxygen support, he is on his baseline oxygen requirement Continue laboratory monitoring for hemodialysis Continue IV antibiotics when in hospital. Wound care evaluation ongoing Admission and Anticipated Discharge Date Admission Date: October 31, 2023 Subjective Patient reports an uneventful night. Sitting up eating breakfast and anticipating hemodialysis a little bit later this morning. Physical Exam Physical Exam: Constitutional: Alert, nontoxic in appearance HEENT: Mucous membranes moist. Lungs: Clear to auscultation, decreased, few crackles at bases CV: S1-S2, irregular Abdomen: Soft, nontender, nondistended Extremities: Trace pretibial edema Neuro: No focal deficits Psych: Cooperative, normal mood Results & Data Results & Data Vital Signs (Past 12 Hours) Vital Signs Temp Pulse Pulse Pulse Pulse Resp BP 11/04/23 12:03 105 H 11/04/23 11:27 90 20 11/04/23 11:00 37.0 C 92 H 11/04/23 10:40 36.5 C 88 11/04/23 10:24 147 H 94/58 L 11/04/23 10:23 151 H 73/60 L 11/04/23 10:00 85 98/46 L 11/04/23 09:30 91 H 109/52 L 11/04/23 09:18 36.5 C 71 11/04/23 08:04 36.6 C 81 19 11/04/23 08:00 11/04/23 07:00 75 11/04/23 06:53 77 18 11/04/23 03:40 74 20 08/19/24 03:16 36.9 C 70 18 BP Pulse Ox O2 Del Method O2 Flow Rate 11/04/23 12:03 104/64 94 Room Air 11/04/23 11:27 94 Nasal Cannula 4 11/04/23 11:00 109/63 94 Nasal Cannula 4 11/04/23 10:40 94/52 L 11/04/23 10:24 11/04/23 10:23 11/04/23 10:00 11/04/23 09:30 11/04/23 09:18 11/04/23 08:04 148/75 H 95 Nasal Cannula 4 11/04/23 08:00 Nasal Cannula 4 11/04/23 07:00 11/04/23 06:53 95 Nasal Cannula 4 11/04/23 03:40 93 Nasal Cannula 4 11/04/23 03:16 122/67 96 Nasal Cannula 4 Diagnostic Findings Reviewed imaging, laboratory and diagnostic studies. Pertinent findings as below. Reviewed images in EMR of wound on buttocks Hemoglobin 7.2 Creatinine 8.3 phosphorus 8.3 Reviewed events that occurred at hemodialysis, patient with rapid ventricular response while on hemodialysis and mild hypotension. Had to shorten ultrafiltration session (6) COPD (chronic obstructive pulmonary disease) COPD type: chronic bronchitis Chronic bronchitis type: simple Qualified Code(s): J41.0 - Simple chronic bronchitis (9) HTN (hypertension) Hypertension type: unspecified Qualified Code(s): I10 - Essential (primary) hypertension
[2023-11-04] MEDS ORDERED: SODIUM CHLORIDE 0.9% 250 ML IV PRN (12:18)
--- NOTE | 2023-11-04 13:21 | Communication Note ---
Date of Service: November 04, 2023 [place] Text message received from nurse. Hemodialysis cut short earlier today due to atrial fibrillation with rapid ventricular response, symptomatic hypo tension. Patient evaluated at bedside at 13:15 PM. Mild chest tightness noted on questioning, improved from earlier today. Breathing OK. Telemetry with atrial fibrillation, variable heart rates ranging from the 70s to 150s Recommendations: 1. Check EKG 2. Refer for resting echocardiography 3. Stop torsemide 4. Increase metoprolol to 25 mg 4 times per day for now 5. Maintain telemetry noting above, underlying conduction system disease 6. Continue reduced dose Eliquis anticoagulation 7. Poor candidate for antiarrhythmic therapy (amiodarone)
[2023-11-04] MEDS: METOPROLOL TARTRATE 25 MG TAB PO SCH (14:44)
[2023-11-04] MEDS: CEFEPIME 500 MG in SYRINGE 0 ML IV SCH (14:54)
[2023-11-04] MEDS: LEVALBUTEROL 1.25 MG/3 ML NEB NEB SCH (20:11)
[2023-11-04] MEDS: MELATONIN 3 MG TAB PO PRN (21:03)
[2023-11-05] MEDS ORDERED: SODIUM CHLORIDE 0.9% 1,000 ML IV PRN (09:13)
[2023-11-05] MEDS ORDERED: SODIUM CHLORIDE 0.9% 250 ML IV PRN (09:28)
[2023-11-05 10:29] LABS: Hematocrit (blood only) 25.6 % (42.0-52.0); Hemoglobin 7.8 g/dl (14.0-18.0); Mean Corpuscular Hemoglobin 27.9 pg (25.0-34.0); Mean Corpuscular Hgb Conc 30.5 g/dL (32.0-36.0); Mean Corpuscular Volume 91.4 fL (80.0-100.0); Mean Platelet Volume 9.9 fL (9.4-12.4); Platelet Count 125 K/uL (130-400); RDW Coefficient of Variation 16.2 % (11.5-14.5); RDW Standard Deviation 53.1 fL (36.4-46.3); White Blood Count 6.85 K/ul (4.8-10.8)
[2023-11-05 10:50] LABS: BUN Creatinine Ratio 6.7 (10-20); Calcium 8.4 mg/dl (8.6-10.3); Creatinine Clr Calc Pharmacy 9.2 ml/min; Est GFR (Non-African American) 7.8 ml/min; Magnesium 2.2 mg/dl (1.7-2.4); Phosphorus 6.7 mg/dl (2.5-4.9); Potassium 4.2 mmol/L (3.5-5.1)
--- NOTE | 2023-11-05 11:03 | Cardiology Progress Note ---
Date of Service November 05, 2023 Assessment & Plan (1) Acute on chronic diastolic HF (heart failure): (2) Atrial fibrillation with RVR: (3) Chronic hypoxemic respiratory failure: Plan 83-year-old male with acute on chronic heart failure, and atrial fibrillation with rapid ventricular response. Continue volume management via hemodialysis. Metolazone and torsemide per direction of nephrology. Metoprolol titrated to 25 mg 4 times daily yesterday 11/04/2023 due to recurrent atrial flutter with rapid ventricular response. Transition to 50 mg twice daily at discharge. Continue reduced dose apixaban for anticoagulation. Patient is not a candidate for amiodarone due to underlying pulmonary disease (oxygen dependent COPD). ASCVD with remote history of [place]. Status post PCI of the LCX in 1998. Last coronary angiography 2019, revealing a patent stent and mild luminal irre gularities. Continue beta-harish and statin. Patient is chronically not prescribed ASA 81 mg/day. Dyslipidemia. 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 Primarily sinus rhythm in the 70s overnight on telemetry. Metoprolol titrated to 25 mg 4 times daily yesterday. Patient denies chest pain or shortness of breath. Receiving 1 unit of packed red blood cells on hemodialysis. Review of Systems Review of Systems: All systems reviewed & are unremarkable except as noted in Subjective Physical Exam Constitutional: well nourished and + ill appearing; no acute distress Cardiovascular: Rate/Rhythm: regular rate and regular rhythm Heart Sounds: normal S1, normal S2 and + murmur (1/6 systolic ejection murmur heard best at the right second intercostal spa) Vessels: no JVD Extremities: no edema Gastrointestinal (Abdomen): Inspection/Auscultation: abdomen normal to inspection; abdomen not distended Percussion/Palpation: abdomen nontender Neurologic: CN's II-XI intact bilaterally and moves all extremities Results & Data Vital Signs (Past 12 Hours) Vital Signs Temp Pulse Pulse Resp BP BP Pulse Ox 11/05/23 10:30 36.5 C 62 18 111/46 L 92 11/05/23 09:00 11/05/23 07:27 36.4 C L 73 19 120/62 92 11/05/23 07:13 90 20 92 11/05/23 06:44 75 11/05/23 01:38 36.5 C 83 18 111/64 94 O2 Del Method O2 Flow Rate 11/05/23 10:30 4 11/05/23 09:00 Nasal Cannula 4 11/05/23 07:27 Nasal Cannula 5 11/05/23 07:13 Nasal Cannula 5 11/05/23 06:44 11/05/23 01:38 Nasal Cannula 5 Laboratory Results Cardiac Enzymes 11/04/23 Range/Units 11:15 AST 14 (13-39) U/L CBC 11/05/23 Range/Units 10:15 WBC 6.85 (4.8-10.8) K/ul RBC 2.80 L (4.70-6.10) M/uL Hgb 7.8 L (14.0-18.0) g/dl Hct 25.6 L (42.0-52.0) % Plt Count 125 L (130-400) K/uL Comprehensive Metabolic Panel 11/04/23 11/05/23 Range/Units 11:15 10:15 Sodium 135 L (136-145) mmol/L Potassium 4.2 (3.5-5.1) mmol/L Chloride 99 (98-107) mmol/L Carbon Dioxide 28 (21-32) mmol/L BUN 41 H (6-23) mg/dl Creatinine 6.12 H* D (0.6-1.4) mg/dl Glucose 139 H (70-99(Fasting)) mg/dl Calcium 8.4 L (8.6-10.3) mg/dl Direct Bilirubin 0.0 (0-0.2) mg/dl AST 14 (13-39) U/L ALT 10 (7-52) U/L Alkaline Phosphatase 45 (34-104) U/L Total Protein 6.4 (6.0-8.3) gm/dl Albumin 3.7 (3.4-5.0) gm/dl Intake and Output 11/04/23 11/05/23 11/05/23 22:59 06:59 14:59 Intake Total 420 / 540 0 / 0 Output Total Balance 418 / 235 - 0 / 0 Intake: Oral 420 / 540 Intake (Blood Product) Amt 0 / 0 Packed Cells, Leukoreduced 0 / 0 Unit [id number] Output: # Bowel Movements 2 / 5 3 / 5 Other: Other Intake Source sips # Unmeasured Voids 2 Weight 91.7 kg
[2023-11-05] MEDS: HEPARIN SOD (PORCINE) 1000 UNIT/ML IV ONE (11:13)
--- NOTE | 2023-11-05 13:44 | Dialysis Progress Note ---
Date of Service November 05, 2023 Assessment & Plan (1) End-stage renal disease (ESRD): Plan: Patient with ESRD on dialysis Saturday using right upper arm AV fistula. Electrolytes are stable. minimal UF yesterday after AF w/ RVR on treatment >> better controlled today and appreciate cardiology's help with med changes. ultimately for today's treatment tolerated 2.5 L UF (even accounting for pRBC) >so far SBP, HR maintained and tolerated treatment and transfusion >> at baseline 02. next tx planned tentatively for 11/06 from a renal standpoint he could be d/c if stable Care coordinated with Dr Wells (2) Acute on chronic respiratory failure with hypoxia and hypercapnia: Plan: improved/ resolved. Likely due to COPD exacerbation and volume overload and c/b AF w/ RVR. Patient is on bronchodilators. Will optimize fluid status with dialysis. (3) Anemia of chronic renal failure: Plan: Hemoglobin down to 7.2 yesterday, . Received Epogen 10,000 earlier this admission; will avoid standing [facility] d/t know RCC moving forward. Admission and Anticipated Discharge Date Admission Date: October 31, 2023 Subjective some loose BM ON. no chest pain or palpitations. for pRBC on tx today. got some good sleep this am. no sob or further palpitations or symptomatic hypotension; HR in 70s ON/this aM. seen on dialysis Review of Systems 2 Review of Systems: All systems reviewed & are unremarkable except as noted in Subjective Physical Exam 2 Constitutional: well developed (sitting in bed on 4L 02nc) and well nourished; no acute distress Eyes: EOM intact bilaterally ENMT: Ears: no external ear abnormality Nose: no external nose abnormality Mouth: + dry oral mucous membranes Neck: no nuchal rigidity Respiratory: normal respiratory effort and able to speak in complete sentences; no respiratory distress and no labored breathing Auscultation: + diminished lung sounds and + wheezes (exp) Cardiovascular: Rate/Rhythm: regular rate and regular rhythm Extremities: + edema (trace BLE) and + AV fistula Gastrointestinal (Abdomen): Inspection/Auscultation: normal bowel sounds P ercussion/Palpation: abdomen soft; abdomen nontender Musculoskeletal: Extremities: strength 5/5 throughout Skin: no rashes, warm and dry Psychiatric: Orientation: alert and oriented x 3 Results & Data Vital Signs (Past 12 Hours) Vital Signs Temp Pulse Pulse Pulse Resp BP BP 11/05/23 13:00 58 L 89/52 L 11/05/23 12:30 77 118/59 L 11/05/23 12:00 77 109/52 L 11/05/23 11:30 77 123/50 L 11/05/23 11:08 36.5 C 74 18 109/46 L 11/05/23 11:05 36.5 C 75 18 118/50 L 11/05/23 11:00 75 112/46 L 11/05/23 10:50 36.5 C 76 18 123/55 L 11/05/23 10:30 62 111/46 L 11/05/23 10:30 36.5 C 62 18 111/46 L 11/05/23 10:01 72 134/52 L 11/05/23 09:52 36.5 C 82 11/05/23 09:00 11/05/23 07:27 36.4 C L 73 19 120/62 11/05/23 07:13 90 20 11/05/23 06:44 75 11/05/23 01:38 36.5 C 83 18 111/64 Pulse Ox O2 Del Method O2 Flow Rate 11/05/23 13:00 11/05/23 12:30 11/05/23 12:00 11/05/23 11:30 11/05/23 11:08 93 4 11/05/23 11:05 93 4 11/05/23 11:00 11/05/23 10:50 93 4 11/05/23 10:30 11/05/23 10:30 92 4 11/05/23 10:01 11/05/23 09:52 11/05/23 09:00 Nasal Cannula 4 11/05/23 07:27 92 Nasal Cannula 5 11/05/23 07:13 92 Nasal Cannula 5 11/05/23 06:44 11/05/23 01:38 94 Nasal Cannula 5 Laboratory Results 11/05/23 10:15 11/05/23 10:15
--- NOTE | 2023-11-05 13:48 | Hospitalist Progress Note ---
Date of Service November 05, 2023 Assessment & Plan (1) Atrial fibrillation with RVR: (2) Volume overload: (3) Open thigh wound: (4) Chronic hypoxemic respiratory failure: (5) Restrictive lung disease: (6) COPD (chronic obstructive pulmonary disease): (7) End-stage renal disease (ESRD): (8) Coronary artery disease: (9) HTN (hypertension): (10) Anemia of chronic renal failure: Plan Patient with atrial fibrillation with rapid ventricular response, thigh wound and evidence of volume overload has significantly improved over the last 24 hours. His heart rates have been controlled. Reviewed pictures of thigh wound, significantly improved Reviewed wound care dressing recommendations Patient tolerated hemodialysis full session today with heart rates being controlled Reviewed cardiology recommendations to transition to metoprolol twice daily Patient transfuse 1 unit of PRBC on hemodialysis today Patient continues on his chronic oxygen and nebulizer treatments Will transition to anticipated home medication plan this evening Transition to oral antibiotics Continue wound care, care management team updated to anticipate discharge tomorrow 52 minutes spent in coordinating care, review of record, interpretation of data communication with specialist Admission and Anticipated Discharge Date Admission Date: October 31, 2023 Subjective Patient seen earlier this morning eating breakfast. Tolerated hemodialysis Physical Exam Physical Exam: Constitutional: Alert HEENT: Mucous membranes moist. Lungs: Decreased breath sounds, few crackles at bases CV: S1-S2, irregular, controlled rate Abdomen: Soft, nontender, nondistended Extremities: No significant edema Neuro: No focal deficits Psych: Cooperative, normal mood Results & Data Results & Data Vital Signs (Past 12 Hours) Vital Signs Temp Pulse Pulse Pulse Resp BP BP 11/05/23 13:00 58 L 89/52 L 11/05/23 12:30 77 118/59 L 11/05/23 12:00 77 109/52 L 11/05/23 11:30 77 123/50 L 11/05/23 11:08 36.5 C 74 18 109/46 L 11/05/23 11:05 36.5 C 75 18 118/50 L 11/05/23 11:00 75 112/46 L 11/05/23 10:50 36.5 C 76 18 123/55 L 11/05/23 10:30 62 111/46 L 11/05/23 10:30 36.5 C 62 18 111/46 L 11/05/23 10:01 72 134/52 L 11/05/23 09:52 36.5 C 82 11/05/23 09:00 11/05/23 07:27 36.4 C L 73 19 120/62 11/05/23 07:13 90 20 11/05/23 06:44 75 Pulse Ox O2 Del Method O2 Flow Rate 11/05/23 13:00 11/05/23 12:30 11/05/23 12:00 11/05/23 11:30 11/05/23 11:08 93 4 11/05/23 11:05 93 4 11/05/23 11:00 11/05/23 10:50 93 4 11/05/23 10:30 11/05/23 10:30 92 4 11/05/23 10:01 11/05/23 09:52 11/05/23 09:00 Nasal Cannula 4 11/05/23 07:27 92 Nasal Cannula 5 11/05/23 07:13 92 Nasal Cannula 5 11/05/23 06:44 Diagnostic Findings Reviewed imaging, laboratory and diagnostic studies. Pertinent findings as below. Hemoglobin 7.8 (6) COPD (chronic obstructive pulmonary disease) COPD type: chronic bronchitis Chronic bronchitis type: simple Qualified Code(s): J41.0 - Simple chronic bronchitis (9) HTN (hypertension) Hypertension type: unspecified Qualified Code(s): I10 - Essential (primary) hypertension
--- NOTE | 2023-11-05 14:20 | XRay Report ---
XR chest 1V portable HISTORY: dialysis pt, eval volume status COMPARISON: Chest 11/01/2023. FINDINGS: No pneumothorax. The heart remains enlarged. Mild elevation of the right hemidiaphragm and a small right pleural effusion. Bibasilar linear densities favor subsegmental atelectasis. There is m ild central pulmonary vascular congestion without overt edema. This has improved in the interval. Delfin cifications within the aortic knob. No acute fractures. Prior cholecystectomy. IMPRESSION: 1. Cardiomegaly with mild improvement in the pulmonary vascular congestion. 2. Small right pleural effusion. ACT 112: Negative or not required by law. Electronically signed by: Joselo Garcia M.D. 11/05/2023 2:19 PM
[2023-11-05] MEDS: AMOXICILLIN/CLAVULANATE 250 MG TAB PO SCH (15:31)
[2023-11-05] MEDS: METOPROLOL TARTRATE 50 MG TAB PO SCH (21:35)
[2023-11-05] MEDS: CALCIUM CARBONATE 500 MG CHEWABLE TAB PO STA (23:30)
[2023-11-06] MEDS: LORazepam 0.5 MG TAB PO STA (02:16)
[2023-11-06] MEDS: diphenhydrAMINE HCL 25 MG/10 ML UDC PO ONE (02:39)
[2023-11-06 08:06] VITALS: RESP 20; O2SAT 99
--- NOTE | 2023-11-06 10:40 | Cardiology Progress Note ---
Date of Service November 06, 2023 Assessment & Plan (1) Acute on chronic diastolic HF (heart failure): (2) Atrial fibrillation with RVR: (3) Chronic hypoxemic respiratory failure: Plan 83-year-old male with acute on chronic heart failure, and atrial fibrillation with rapid ventricular response. Continue volume management via hemodialysis. Metolazone and torsemide per direction of nephrology. Metoprolol titrated to 25 mg 4 times daily yesterday 11/04/2023 due to recurrent atrial flutter with rapid ventricular response. Transition to 50 mg twice daily today. Continue reduced dose apixaban for anticoagulation. Patient is not a candidate for amiodarone due to underlying pulmonary disease (oxygen dependent COPD). ASCVD with remote history of [place]. Status post PCI of the LCX in 1998. Last coronary angiography 2019, revealing a patent stent and mild luminal irregularit ies. Continue beta-harish and statin. Patient is chronically not prescribed ASA. Dyslipidemia. Continue rosuvastatin, maximum dose of 10 mg/day. 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 Feeling better today. Edema improved. Denies shortness of breath. Chronic cough and wheeze unchanged. No orthopnea or PND. Telemetry reveals sinus rhythm with intermittent paroxysmal atrial flutter. Review of Systems Review of Systems: All systems reviewed & are unremarkable except as noted in Subjective Physical Exam Constitutional: well nourished and + ill appearing; no acute distress Cardiovascular: Rate/Rhythm: regular rate and regular rhythm Heart Sounds: normal S1, normal S2 and + murmur (1/6 systolic ejection murmur heard best at the right second intercostal spa) Vessels: no JVD Extremities: no edema Gastrointestinal (Abdomen): Inspection/Auscultation: abdomen normal to inspection; abdomen not distended Percussion/Palpation: abdomen nontender Neurologic: CN's II-XI intact bilaterally and moves all extremities Results & Data Vital Signs (Past 12 Hours) Vital Signs Temp Pulse Pulse Pulse Resp BP Pulse Ox 11/06/23 08:05 36.3 C L 86 20 106/66 99 11/06/23 07:39 104/60 11/06/23 07:32 78/59 L 11/06/23 07:23 11/06/23 07:00 87 08/21/24 06:51 89 18 96 11/06/23 03:00 36.6 C 83 18 124/71 97 11/05/23 23:26 36.9 C 72 20 113/64 96 O2 Del Method O2 Flow Rate 11/06/23 08:05 Nasal Cannula 4 11/06/23 07:39 11/06/23 07:32 11/06/23 07:23 Nasal Cannula 4 11/06/23 07:00 11/06/23 06:51 Nasal Cannula 4 11/06/23 03:00 Nasal Cannula 4 11/05/23 23:26 Nasal Cannula 4 Laboratory Results Comprehensive Metabolic Panel 11/05/23 Range/Units 10:15 Sodium 135 L (136-145) mmol/L Potassium 4.2 (3.5-5.1) mmol/L Chloride 99 (98-107) mmol/L Carbon Dioxide 28 (21-32) mmol/L BUN 41 H (6-23) mg/dl Creatinine 6.12 H* D (0.6-1.4) mg/dl Glucose 139 H (70-99(Fasting)) mg/dl Calcium 8.4 L (8.6-10.3) mg/dl Intake and Output 11/05/23 11/06/23 11/06/23 22:59 06:59 14:59 Intake Total 120 / 550 Output Total Balance 120 / 549 -1 Intake: Oral 120 / 240 Output: # Bowel Movements Other: Weight 88.1 kg 88.1 kg Weight Measurement Method Standing Scale Standing Scale Patient Weight 11/07/23 06:59 Weight 88.1 kg
[2023-11-06 12:11] VITALS: BP 129/66; PULSE 88; TEMP 97.5
--- NOTE | 2023-11-06 12:41 | Discharge Summary ---
Discharge Summary Date of Service November 06, 2023 Principal Dx & Hospital Course #1 = Principal Diagnosis (1) Atrial fibrillation with RVR: (2) Volume overload: (3) Open thigh wound: (4) Chronic hypoxemic respiratory failure: (5) Restrictive lung disease: (6) COPD (chronic obstructive pulmonary disease): (7) End-stage renal disease (ESRD): (8) Coronary artery disease: (9) HTN (hypertension): (10) Anemia of chronic renal failure: Plan Patient presented to the emergency room with increasing shortness of breath and swelling. Noted to be in volume overload. Patient was admitted to the hospital. Patient also is experiencing some A-fib/a flutter with rapid ventricular response. Nephrology consultation cardiology consultations were obtained. Patient underwent hemodialysis treatments for removal of excess volume. Medications were adjusted to manage his rates. Patient not a candidate for amiodarone due to his chronic lung disease and weights were managed with metoprolol. Patient also had a wound on his posterior thigh initially started on oral antibiotics, converted to IV cefepime when the wound started look more red. Patient significantly responded to the cefepime. Wound care was consulted. They made recommendations on wound care and dressings. The wound significantly improved and he was transition back to oral medications. His atrial fibrillation was overall fairly well-controlled ventricular response with the increase of his metoprolol dosing. He returned to his baseline oxygen requirements. He was tolerating his hemodialysis. Patient did receive 1 dose of Epogen while here in the hospital for his chronic anemia due to his renal failure. He also received 1 unit of packed red blood cells to help with his symptoms and heart rate. Nephrology is recommending minimal to no future use of Epogen due to his history of renal cell carcinoma. case management was involved in his care. They coordinated home health services. He will be discharged home with the services continue his usual hemodialysis schedule and follow-up with his outpatient providers. 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 This is the 3rd admission this year. Patient reports that he has been having fluid accumulation in his lower extremities for approximately 1 week. He also complains that abdomen is also distended, feels slightly more short of breath with exertional activities despite being on 4 L O2 at all times. He denies any chest pain/palpitation/flutter. Patient states that his dry weight is 92 kg, today we ighing 95.7 kg on admission. This morning he presented to outpatient dialysis and completed 1.5 hours, normally requires 4-hour session. He has been using midodrine prior to session for prevention of hypotension, and for the past few weeks he has also been taking a second dose of midodrine in the middle of dialysis. Today he did not take midodrine in the middle of the dialysis session and went hypotensive with BP of 60s/30 per his report. Without intervention his BP is back up to 120s/80s at this time. He is previously noncompliant with CPAP. Patient denies worsening wheezing however this is heard on exam and family are present at bedside states that they think that he is worse in the past week as well. He denies any productive cough or hemoptysis. Pt has been using spiriva inh at home. Patient notes having no bowel movement x 2 days, and is requesting something for such. Previously: Admitted 05/14-05/17/23 for acute on chronic respiratory failure and hemoptysis found likely secondary to pneumonia with possible aspiration component. Treated with IV Unasyn before being transitioned to Augmentin at discharge. Admitted 08/25-08/28. At that time pt reports that the hemoptysis was improving. Pt was treated for COPD exacerbation with antibiotics, steroids and higher flow of O2 due to acute on chronic respiratory failure due to exacerbation of COPD. He also developed new onset Afib RVR during his most recent admission. Echocardiogram showed normal ejection fraction during that time. He was tolerating his diuresis. He his beta-harish was changed from Coreg to metoprolol for rate and rhythm control. Admission Exam Per Admitting Provider I refer you to the H&P Discharge Exam Constitutional: Alert HEENT: Mucous membranes moist. Lungs: Decreased breath sounds, few crackles at bases CV: S1-S2, irregular, controlled ventricular response Abdomen: Soft, nontender, nondistended Extremities: No significant edema Neuro: No focal deficits Psych: Cooperative, normal mood Updated Medication List Medication Instructions Recorded Confirmed Type venlafaxine 37.5 mg 37.5 mg PO DAILY 02/01/22 10/31/23 History capsule,extended release 24 hr (Effexor XR) tamsulosin 0.4 mg capsule (Flomax) 0.4 mg PO QAM 06/19/22 10/31/23 History hydroxyzine HCl 50 mg tablet 50 mg PO HS PRN Insomnia 05/14/23 10/31/23 History nitroglycerin 0.4 mg sublingual 0.4 mg sublingual UD PRN Chest Pain 05/14/23 10/31/23 History tablet (Nitrostat) rosuvastatin 10 mg tablet 10 mg PO QAM 05/14/23 10/31/23 History buspirone 5 mg tablet 5 mg PO AMHS 08/26/23 10/31/23 History glycopyrrolate 9 mcg-formoterol 1 puff inhalation BID 08/26/23 10/31/23 History 4.8 mcg HFA aerosol inhaler (Bevespi Aerosphere) midodrine 5 mg tablet 5 mg PO 3XWK 08/26/23 10/31/23 History torsemide 20 mg tablet 100 mg PO BID 08/26/23 10/31/23 History vitamin B complex-vitamin C-folic 1 tab PO 3XWK 08/26/23 10/31/23 History acid 0.8 mg tablet (Izzy-Vianney) apixaban 2.5 mg tablet (Eliquis) 2.5 mg PO BID #60 tabs 08/29/23 10/31/23 Rx metoprolol tartrate 25 mg tablet 25 mg PO BID #60 tabs 08/29/23 10/31/23 Rx ipratropium 0.5 mg-albuterol 3 mg 3 ml NEB QIDR PRN Other 10/31/23 10/31/23 History (2.5 mg base)/3 mL nebulization soln metolazone 5 mg tablet 5 mg PO UD 10/31/23 10/31/23 History oxycodone 5 mg tablet 5 mg PO DIRECTED PRN Pain 10/31/23 10/31/23 History amoxicillin 250 mg-potassium 1 tab PO BID #5 tabs 08/21/24 Rx clavulanate 125 mg tablet metoprolol tartrate 50 mg tablet 50 mg PO BID 30 days #60 tabs 11/06/23 Rx miconazole nitrate 2 % topical 1 applic EXT BID #85 grams 11/06/23 Rx powder (Desenex) Hospital Stay Data Consultations 10/31/23 13:25 ED Decision to Admit Stat 10/31/23 14:02 Consult Nephrology Routine 11/02/23 14:45 Consult Cardiology Routine Diagnostic Imagining Performed Reviewed imaging, laboratory and diagnostic studies. Pertinent findings as below. Echocardiogram showed ejection fraction 60-65% with pulmonary pressures of 43 mmHg. I refer to the full report for details. Hemoglobin 7.8 after transfusion of 1 unit of PRBCs Basic metabolic profile stable for end-stage renal disease TSH 0.75 11/02/23 00:02 CT head/brain wo con Stat Pending Results Patient Have Any Pending Studies at Discharge: No Discharge Instructions Given to Patient (Per Discharging Provider) Continue your usual hemodialysis schedule Home health care for wound senior living Health Attestation I certify that this patient is under my care and that I, or a physicians commercial lines assistant working with me, had a face to-face encounter that meets the home health [id number] encounter requirements with this patient. The encounter with the patient was in whole, or in part, for the following medical condition, which is the primary reason for home health care (list medical condition): I certify that, based on my findings, the following services are medically necessary home health services: My clinical findings support the need for the above services because: Further, I certify that my clinical findings support that this patient is homebound (i.e. absences from home require considerable and taxing effort and are for medical reasons or tenriism services or infrequently or of short duration when for other reasons) because: Certification for Home Health Services: Based on the above findings, I certify that this patient is confined to the home and needs intermittent senior living care, physical therapy and/or speech therapy or continues to need occupational therapy. The patient is under my care, and I have initiated the establishment of the plan of care. This patient will be followed by a physician who will periodically review the plan of care. Total Time Total Time Spent Total Time Spent (In Minutes): 40
== END 2023-11-06 15:17 | disposition home health service (06) | DRG 291 ==
LOC: ED 11:34 → SUATTDRO 14:02 → EDINP 14:02 → 2N 18:15

== ENCOUNTER 2023-12-25 16:32 | Inpatient (IN) ==
[2023-12-25] MEDS ORDERED: methylPREDNISolone 1000 MG/16 ML IV STA (16:55)
[2023-12-25] MEDS: ALBUT/IPRATROP 3MG/0.5MG NEB 3 ML VIAL NEB STA (17:13)
[2023-12-25] MEDS: methylPREDNISolone 125 MG/2 ML VIAL IV STA (17:16)
--- NOTE | 2023-12-25 17:38 | XRay Report ---
XR chest 1V portable CLINICAL HISTORY: Dyspnea TECHNIQUE: Single frontal radiograph of the chest was obtained. Comparison: Comparison is made to chest radiograph 12/17/2023 FINDINGS: No lines and tubes are seen. Cardiomegaly is noted. The lungs are clear. No evidence of pleural effus ion or pneumothorax. IMPRESSION: No acute chest disease. ACT 112: Negative or not required by law. Electronically signed by: Elio Pacheco M.D. 12/25/2023 5:37 PM
--- NOTE | 2023-12-25 17:47 | Cardiology Consultation ---
Date of Consultation December 25, 2023 Assessment & Plan (1) Atrial fibrillation with RVR: (2) COPD with exacerbation: (3) End-stage renal disease (ESRD): * Anticipate admission to telemetry unit as long * as laboratory studies are stable, continue renally dosed Eliquis 2.5 mg twice daily * Agree with inhaled bronchodilators and IV corticosteroids. * Agree with bolus of IV diltiazem, however likely not a long-term option given recent issues with low blood pressure and lower extremity edema * If blood pressure allows, it may be reasonable to initiate low-dose diltiazem infusion 2.5-5 mg/h overnight * Resume metoprolol, start tartrate 12.5 mg PO QID with holds. * Plan for HD as per his usual schedule on 12/26/23. History of Present Illness History of Present Illness Justin Pinedo is an 83-year-old male seen in cardiology consultation per the request of Dr. Renner for the evaluation of shortness of breath and atrial flutter with rapid ventricular response. The patient presented to the outpatient cardiology clinic at [facility] this afternoon to see Dr. Gooedn and was found to have an elevated heart rate when his vital signs were taken. EKG consistent with atrial flutter at 150 bpm, right bundle branch block morphology. He has a history of COPD and is on chronic supplementary oxygen at 4 L/min. He also has end-stage renal disease and is due to have dialysis tomorrow. He had been hospitalized with similar concerns in both August and October of this year. At the time of discharge in October, metoprolol had been titrated to 50 mg twice daily and an EKG performed on 11/10/2023 revealed sinus rhythm at 72 bpm with right bundle branch block and age undetermined inferior infarct pattern. He has since had issues with low blood pressure during dialysis sessions and his metoprolol was reduced to 25 mg 2 times per day. During my assessment, he had just finished a nebulizer therapy. Ongoing tachycardia with rate of 150 bpm noted, but the patient did not have any subjective palpitations. Coarse breath sounds noted bilaterally with diffuse wheezing noted. Patient mentating well. Denies symptoms suggestive of angina. He notes that he has had swollen legs, but they are little bit better today than what they had been a few days ago. Patient notes recent worsening cough productive of green/yellow sputum. History includes: 1. Remote WI with stent to the left circumflex in 1998. Last cath in 2019 with patent stent and mild luminal irregularities. 2. ESRD with recent start of HD in the last few weeks 3. Moderate LVH 4. Hypertension 5. Dyslipidemia 6. COPD with chronic respiratory failure, hypoxia on supplemental O24 24/7 - 4 L at baseline. 7. History of prior CVA with right sided weakness 8. history of prior DVT/PE (previously on warfarin) Allergies Allergy/AdvReac Type Severity Reaction Status Date / Time lorazepam AdvReac Intermediate Hallucinati Verified 11/10/23 19:09 ng/Confusio n Home Medications Medication Instructions Recorded Confirmed Type venlafaxine 37.5 mg 37.5 mg PO DAILY 02/01/22 11/10/23 History capsule,extended release 24 hr (Effexor XR) nitroglycerin 0.4 mg sublingual 0.4 mg sublingual UD PRN Chest Pain 05/14/23 11/10/23 History tablet (Nitrostat) rosuvastatin 10 mg tablet 10 mg PO QAM 05/14/23 11/10/23 History buspirone 5 mg tablet 5 mg PO AMHS 08/26/23 11/10/23 History glycopyrrolate 9 mcg-formoterol 1 puff inhalation BID 08/26/23 11/10/23 History 4.8 mcg HFA aerosol inhaler (Bevespi Aerosphere) midodrine 5 mg tablet 5 mg PO 3XWK 08/26/23 11/10/23 History vitamin B complex-vitamin C-folic 1 tab PO 3XWK 08/26/23 11/10/23 History acid 0.8 mg tablet (Izzy-Vianney) apixaban 2.5 mg tablet (Eliquis) 2.5 mg PO BID #60 tabs 08/29/23 11/10/23 Rx ipratropium 0.5 mg-albuterol 3 mg 3 ml NEB QIDR PRN Other 10/31/23 11/10/23 History (2.5 mg base)/3 mL nebulization soln oxycodone 5 mg tablet 5 mg PO DIRECTED PRN Pain 10/31/23 11/10/23 History amoxicillin 500 mg-potassium 1 tab PO Q12H #20 tabs 11/10/23 Rx clavulanate 125 mg tablet azithromycin 250 mg tablet See Rx Instructions PO .COMPLEX #6 11/10/23 Rx tabs calcium acetate(phosphat bind) 667 1,334 mg PO TIDWMEAL 11/10/23 11/10/23 History mg capsule lorazepam 0.5 mg tablet 0.5 mg PO DIRECTED 11/10/23 11/10/23 History miconazole nitrate 2 % topical 1 applic EXT BID PRN .. 11/10/23 11/10/23 History powder (Desenex) Patient History Medical History Multifocal pneumonia History of DVT (deep vein thrombosis) Left renal mass Pneumonia due to COVID-19 virus Urinary frequency Hx of blood clots "IN MY LEGS AND 1 IN MY LUNGS A LONG TIME AGO">WAS ON BLOOD THINNERS, CAUSED BY PHLEBITIS History of COVID-19 02/02/22>STILL HAS FATIGUE Adjustment disorder with mixed disturbance of emotions and conduct History of basal cell carcinoma Carotid stenosis, right 50-69% stenosis to right ICA; <50% stenosis to left ICA per 06/22/21 carotid duplex History of stroke 2017 OR 2018 >NO RESIDUAL History of WI (myocardial infarction) 1998 MOLLY and COPD overlap syndrome WEARS 4L O2 AT HS Prediabetes PT DENIES Renal osteodystrophy Papillary renal cell carcinoma WITH MALIGNANCY>NO TREATMENT YET (CURRENT DX) Surgical History History of anesthesia reaction SLOW TO WAKE UP History of arthroscopy LEFT KNEE History of colonoscopy History of tooth extraction History of tonsillectomy History of cataract surgery RT/LEFT History of cholecystectomy History of appendectomy History of heart artery stent 1998>? # STENTS PLACED IN [facility] (FOLLWED BY DR. JACK SOUSA [facility]) Family History Other Colorectal cancer No family history of adverse response to anesthesia Social History Smoking Status: Never smoker Second Hand Exposure: No; Do You Dip or Chew Tobacco: No; Hx Alcohol Use: No Hx Substance Use: No Preferred Language: Nepali Communication Ability: Effective Communication Tools: Other Gas Fitter Required: Yes Beliefs That Will Affect Care: None Current Living Situation: Spouse Feels Safe at Home: Yes Assistive Devices: Cane, Oxygen - Continuous and Walker Review of Systems Review of Systems: All systems reviewed & are unremarkable except as noted in HPI & below Physical Exam Physical Exam: General: Chronically ill in appearance without acute distress Eyes: conjunctiva are pink and non-injected, sclera clear Neck: normal jugular venous pulse, no hepatojugular reflux Chest: normal shape and normal respiratory effort Lungs: Coarse bilateral breath sounds with inspiratory and expiratory wheezing throughout Cardiac Exam: - Tachycardic, no murmurs, 1+ bilateral lower extremity edema Abdomen: abdomen soft, non-tender, no abnormal masses and no hepatosplenomegaly Neuro:awake, conversant, follows commands, no focal motor deficits Results & Data Vital Signs (Past 12 Hours) Vital Signs Temp Pulse Pulse Resp BP BP O2 Del Method 12/25/23 17:11 150 H 12/25/23 16:56 152 H 23 Nasal Cannula 12/25/23 16:56 Nasal Cannula 12/25/23 16:55 Nasal Cannula 12/25/23 16:51 36.6 C 152 H 17 113/70 Nasal Cannula 12/25/23 16:51 Nasal Cannula 12/25/23 16:37 36.6 C 152 H 15 113/70 O2 Flow Rate 12/25/23 17:11 12/25/23 16:56 4 12/25/23 16:56 4 12/25/23 16:55 4 12/25/23 16:51 4 12/25/23 16:51 4 12/25/23 16:37 Laboratory Results Laboratory studies currently pending EKG performed on arrival to the emergency department 12/25/2023 at 1650 and interpret independently: Atrial fibrillation/flutter with right bundle branch block, left anterior fascicular block, QRS duration prolonged at 132 ms. QRS duration. Compared to the previous tracing dated 12/17/2023, atrial fibrillation/flutter again noted, however the rate was 103 bpm at that time Chest x-ray: Summary of radiology report, with image also reviewed/interpreted independently: Enlargement of the heart silhouette, no pleural effusion or interstitial edema noted. No infiltrate.
[2023-12-25 17:53] LABS: Basophils # (auto) 0.03 K/uL (0.00-0.20); Basophils % (auto) 0.4 %; Eosinophils # (auto) 0.08 K/uL (0.00-0.50); Hematocrit (blood only) 30.6 % (42.0-52.0); Hemoglobin 9.7 g/dl (14.0-18.0); Immature Granulocytes # (auto) 0.02 K/uL (0.01-0.20); Immature Granulocytes % (auto) 0.3 %; Lymphocytes # (auto) 0.51 K/uL (1.20-3.40); Lymphocytes % (auto) 6.6 %; Mean Corpuscular Hemoglobin 28.4 pg (25.0-34.0); Mean Corpuscular Hgb Conc 31.7 g/dL (32.0-36.0); Mean Corpuscular Volume 89.7 fL (80.0-100.0); Monocytes # (auto) 0.77 K/uL (0.11-0.59); Monocytes % (auto) 9.9 %; Neutrophils # (auto) 6.36 K/uL (1.40-6.50); Neutrophils % (auto) 81.8 %; Platelet Count 122 K/uL (130-400); RDW Standard Deviation 55.8 fL (36.4-46.3); Red Blood Count 3.41 M/uL (4.70-6.10); White Blood Count 7.77 K/ul (4.8-10.8)
[2023-12-25] MEDS: dilTIAZem HCl 5 MG/ML 5 ML VIAL IV STA ×2 (17:59→18:02)
[2023-12-25 18:07] LABS: INR 1.1 (0.9-1.1); Partial Thromboplastin Ratio 1.2; Partial Thromboplastin Time 32 Seconds (21-31); Prothrombin Time 11.7 Seconds (9.0-12.0)
[2023-12-25 18:11] LABS: Albumin Globulin Ratio 1.3 (0.9-2); Albumin Level 4.2 gm/dl (3.4-5.0); BUN Creatinine Ratio 7.4 (10-20); Bilirubin,Total 0.5 mg/dl (0.2-1.0); Calcium 8.9 mg/dl (8.6-10.3); Globulin 3.3 gm/dl (2.5-4.0); Magnesium 2.2 mg/dl (1.7-2.4); Total Protein 7.5 gm/dl (6.0-8.3); Troponin I High Sensitivity 31.6 pg/ml (0-20)
--- NOTE | 2023-12-25 18:45 | History & Physical Report ---
Date of Service December 25, 2023 Assessment & Plan (1) Atrial flutter with rapid ventricular response: Plan: Patient is 83-year-old male with PMH CAD s/p stent, ESRD on HD, chronic hypoxemic respiratory failure on 4 L oxygen, COPD, HLD, depression and others listed below presented to ER with c/o atrial flutter RVR found at outpatient cardiology office today after ambulating without chronic oxygen. In ER Afebrile B: 52, R: 15, BP 113/70, 96% on 4 L via nasal cannula. EKG atrial flutter RVR In ER given diltiazem 10 mg with heart rate down to 78. During ER course heart rate up to 150 again and was given 5 mg Lopressor IV with heart rate down into high 90s and BPs stable. Patient denies any sensation of palpitations, chest pain, shortness of breath or dizziness. Troponin: 31 Trend troponin EKG in am Continue Eliquis Cardiology saw patient in ER and recommended metoprolol to tartrate 12.5 mg 4 times daily with holding parameters. Recommended may be needed to initiate diltiazem drip at 2.5-5 mg/hour overnight if patient's blood pressure allows (2) Chronic hypoxemic respiratory failure: (3) COPD with exacerbation: Plan: Reported increased cough since yesterday with some yellow sputum [employer] respiratory panel negative CXR without infiltrate On chronic 4 L via nasal cannula with sats mid 90s, at pt's baseline Possible COPD exacerbation we will start doxycycline, Solu-Medrol 40 mg daily, nebs as needed procalicitonin pending (4) Pressure injury of buttock, stage 1: Plan: Wound nurse consult (5) End-stage renal disease (ESRD): (6) Anemia of chronic renal failure: Plan: On HD on , Sat Nephrology consult for assistance in HD and volume status Continue home renal vitamins Continue midodrine prior to HD H&H stable (7) Dyslipidemia: Plan: Continue atorvastatin (8) Coronary artery disease: Plan: S/P Stent Denies CP Trending troponins as above Continue atorvastatin (9) History of DVT (deep vein thrombosis): Plan: Now on Eliquis Continue Eliquis DVT Prophylaxis On Eliquis Admit PCU DNR/DNI as per discussion with pt Follows with Dr Arora for routine care Pt was seen and care coordinated with Dr Merino. See addendum I spent a total of 76 minutes reviewing notes, outpatient records, labs, medica tion, coordinating, documenting and providing care for this patient excluding time spent in the performance of separately billed services. History of Present Illness Chief Complaint: tachycardia Primary Care Provider: Jody Arora MD Patient is 83-year-old male with PMH CAD s/p stent, ESRD on HD, chronic hypoxemic respiratory failure on 4 L oxygen, COPD, HLD, depression and others listed below presented to ER with c/o tachycardia. Recent hospitalization 10/31/2023-11/06/2023 for A-fib RVR, volume overload and volume status controlled with HTN torsemide by nephrology. His metoprolol was increased to 50 mg twice daily however after discharge patient was having low BP with dialysis so it was then changed to 25mg BID per patient. Patient states was feeling well today. He had scheduled cardiology outpatient appointment. He is on 4 L oxygen chronically. He states he walked into office without his oxygen. Upon intake he was found patient's pulse ox was 86% on room air and found to have pulse of 140 and EKG consistent with atrial flutter with rapid ventricular response. Patient states during the walk in to the office he was having some chest tightness but didn't notice palpitations, SOB, dizziness. He was referred to ER. Patient reports chronic cough but states yesterday coughing more and some yellow phlegm. Makes very little urine. He is due for HD tomorrow and states his BLE edema always increased prior to dialysis. He states has redness to buttocks from sitting and doesn't think has open wound at this time. Denies fever/chills, diaphoresis, N/V/D/C, [place], dizziness, syncope, sore throat, rhinorrhea, abdominal pain, paresthesias, extremity weakness, hematuria. Allergies Allergy/AdvReac Type Severity Reaction Status Date / Time lorazepam AdvReac Intermediate Hallucinati Verified 11/10/23 19:09 ng/Confusio n Home Medications Medication Instructions Recorded Confirmed Type venlafaxine 37.5 mg 37.5 mg PO DAILY 02/01/22 12/25/23 History capsule,extended release 24 hr (Effexor XR) nitroglycerin 0.4 mg sublingual 0.4 mg sublingual UD PRN Chest Pain 05/14/23 12/25/23 History tablet (Nitrostat) rosuvastatin 10 mg tablet 10 mg PO QAM 05/14/23 12/25/23 History buspirone 5 mg tablet 5 mg PO AMHS 08/26/23 12/25/23 History glycopyrrolate 9 mcg-formoterol 1 puff inhalation BID 08/26/23 12/25/23 History 4.8 mcg HFA aerosol inhaler (Bevespi Aerosphere) midodrine 5 mg tablet 10 mg PO 3XWK 08/26/23 12/25/23 History vitamin B complex-vitamin C-folic 1 tab PO 3XWK 08/26/23 12/25/23 History acid 0.8 mg tablet (Izzy-Vianney) apixaban 2.5 mg tablet (Eliquis) 2.5 mg PO BID #60 tabs 08/29/23 12/25/23 Rx ipratropium 0.5 mg-albuterol 3 mg 3 ml NEB Q4 PRN Wheezing 10/31/23 12/25/23 History (2.5 mg base)/3 mL nebulization soln calcium acetate(phosphat bind) 667 1,334 mg PO TIDWMEAL 11/10/23 12/25/23 History mg capsule lorazepam 0.5 mg tablet 0.5 mg PO DIRECTED 11/10/23 12/25/23 History albuterol sulfate 2.5 mg/3 mL 2.5 mg continuous nebulization Q6 12/25/23 12/25/23 History (0.083 %) solution for nebulization PRN Wheezing albuterol sulfate 90 mcg/actuation 2 puff inhalation Q4 PRN Wheezing 12/25/23 12/25/23 History aerosol inhaler metoprolol tartrate 25 mg tablet 25 mg PO BID 12/25/23 12/25/23 History Past Med/Surg History Problem List (Updated 12/25/23 @ 19:51 by Shelby Briscoe PA-C) Pressure injury of buttock, stage 1 Atrial flutter with rapid ventricular response Acute alteration in mental status (Acute) Open thigh wound Acute on chronic diastolic HF (heart failure) Hypercarbia (Acute) Acute hyponatremia (Acute) Edema (Acute) Shortness of breath (Acute) New onset atrial fibrillation Acute on chronic respiratory failure with hypoxia and hypercapnia Atrial fibrillation with RVR (Acute) Hypersomnolent Restrictive lung disease Chronic pulmonary aspiration Volume overload (Acute) End-stage renal disease (ESRD) (Acute) COPD with exacerbation (Acute) Dyslipidemia BPH (benign prostatic hyperplasia) Coronary artery disease S/p stent 1998 HTN (hypertension) Chronic hypoxemic respiratory failure (Acute) Anemia of chronic renal failure Hgb 8-9's per record review COPD (chronic obstructive pulmonary disease) Medical History Multifocal pneumonia History of DVT (deep vein thrombosis) Left renal mass Pneumonia due to COVID-19 virus Urinary frequency Hx of blood clots "IN MY LEGS AND 1 IN MY LUNGS A LONG TIME AGO">WAS ON BLOOD THINNERS, CAUSED BY PHLEBITIS History of COVID-19 02/02/22>STILL HAS FATIGUE Adjustment disorder with mixed disturbance of emotions and conduct History of basal cell carcinoma Carotid stenosis, right 50-69% stenosis to right ICA; <50% stenosis to left ICA per 06/22/21 carotid duplex History of stroke 2017 OR 2018 >NO RESIDUAL History of PR (myocardial infarction) 1998 MOLLY and COPD overlap syndrome WEARS 4L O2 AT HS Prediabetes PT DENIES Renal osteodystrophy Papillary renal cell carcinoma WITH MALIGNANCY>NO TREATMENT YET (CURRENT DX) Surgical History History of anesthesia reaction SLOW TO WAKE UP History of arthroscopy LEFT KNEE History of colonoscopy History of tooth extraction History of tonsillectomy History of cataract surgery RT/LEFT History of cholecystectomy History of appendectomy History of heart artery stent 1998>? # STENTS PLACED IN [facility] (FOLLWED BY DR. JACK SOUSA [facility]) Family History Other Colorectal cancer No family history of adverse response to anesthesia Social History Smoking Status: Never smoker Second Hand Exposure: No; Do You Dip or Chew Tobacco: No; Hx Alcohol Use: No Hx Substance Use: No Preferred Language: Cameroonian Communication Ability: Effective Communication Tools: Other Vegetable Cook Required: Yes Beliefs That Will Affect Care: None Current Living Situation: Spouse Feels Safe at Home: Yes Assistive Devices: Cane, Oxygen - Continuous and Walker Review of Systems Review of Systems: All systems reviewed & are unremarkable except as noted in HPI & below Physical Exam Physical Exam: General: no acute distress, chronic ill appearing elderly male, obese Head: normocephalic, atraumatic Eyes: conjunctiva non-injected, anicteric ENT: normal inspection external ears, nose, mucous membranes moist Neck: supple, trachea midline Lungs: no respiratory distress on current 4L via NC with O2 sat 95%, +wheezing/rhonchi CV: irregularly irregular, rate 98, 2+ pretibial edema Abd: normal BS, soft, non-tender Ext: no cyanosis, no calf tenderness Neuro: A&O x 3, no focal deficits noted, normal affect Skin: warm, dry, buttocks with nonblanching redness Results & Data Results & Data Vital Signs (Past 12 Hours) Vital Signs Temp Pulse Pulse Resp BP BP Pulse Ox 12/25/23 18:03 78 12/25/23 18:00 151 H 24 114/67 96 12/25/23 17:11 150 H 12/25/23 16:56 152 H 23 12/25/23 16:56 12/25/23 16:55 12/25/23 16:51 36.6 C 152 H 17 113/70 12/25/23 16:51 12/25/23 16:37 36.6 C 152 H 15 113/70 O2 Del Method O2 Flow Rate 12/25/23 18:03 12/25/23 18:00 Nasal Cannula 4 12/25/23 17:11 12/25/23 16:56 Nasal Cannula 4 12/25/23 16:56 Nasal Cannula 4 12/25/23 16:55 Nasal Cannula 4 12/25/23 16:51 Nasal Cannula 4 12/25/23 16:51 Nasal Cannula 4 12/25/23 16:37 Laboratory Results Short CBC 12/25/23 Range/Units 17:17 WBC 7.77 (4.8-10.8) K/ul Hgb 9.7 L (14.0-18.0) g/dl Hct 30.6 L (42.0-52.0) % Plt Count 122 L (130-400) K/uL BMP 12/25/23 17:17 Sodium 136 Potassium 5.0 Chloride 94 L Carbon Dioxide 28 BUN 54 H Creatinine 7.28 H* Glucose 122 H Calcium 8.9 Liver Function 12/25/23 Range/Units 17:17 Total Bilirubin 0.5 (0.2-1.0) mg/dl AST 20 (13-39) U/L ALT 13 (7-52) U/L Alkaline Phosphatase 62 (34-104) U/L Albumin 4.2 (3.4-5.0) gm/dl Diagnostic Findings Chest X-Ray 12/25/23 16:47 XR chest 1V portable CLINICAL HISTORY: Dyspnea TECHNIQUE: Single frontal radiograph of the chest was obtained. Comparison: Comparison is made to chest radiograph 12/17/2023 FINDINGS: No lines and tubes are seen. Cardiomegaly is noted. The lungs are clear. No evidence of pleural effusion or pneumothorax. IMPRESSION: No acute chest disease. ACT 112: Negative or not required by law. Electronically signed by: Elio Pacheco M.D. 12/25/2023 5:37 PM Code Status & VTE Plan VTE Prophylaxis Plan VTE Prophylaxis will be ordered: Yes Supervising Physician Co-Signing Physician Notes Patient is an 83-year-old male with history of coronary artery disease, end- stage renal disease on dialysis, chronic respiratory failure with hypoxia, COPD and other medical problems presents for evaluation of tachycardia. Patient was evaluated by his biztalk developer today and was found to be in A-fib RVR and so was sent to ED for further evaluation. Patient denies any chest pain, palpitations but admits to have some chest tightness. He also states having chronic cough which is slightly worse with expectoration. He denies any fever, chills. Please review HPI for complete details of presentation. I personally reviewed blood work and imaging studies. He was found to be in A-fib RVR while in ED. Blood work suggestive of chronic anemia, thrombocytopenia, creatinine 7.28, BUN 54, glucose 122, mildly elevated troponins, procalcitonin 0.74, normal TSH on 12/17/2023. Chest x-ray showed no acute process. EKG she has history of A-fib RVR. On exam patient is moderately built and nourished, no apparent distress, chronic ill-appearing, normocephalic atraumatic, he EOMI, decreased breath sounds, scattered wheezes, rhonchi, irregularly irregular, 1+ edema, no murmur, abdomen soft, nontender, normal bowel sounds, alert, awake, oriented, grossly no focal deficits. Patient is admitted for management of A-fib RVR, mild COPD exacerbation. Plan to start on metoprolol tartrate 12.5 mg 4 times daily as recommended by cardiology. Continue Eliquis for anticoagulation. Monitor and replete electrolytes as needed. If uncontrolled, plan to start on diltiazem drip. Continue Solu-Medrol, nebs, started on doxycycline. Continue supplemental oxygen to maintain saturations 88 to 92%. Appreciate cardiology input. Consulted nephrology to help with dialysis. I personally interviewed and examined at bedside. Patient's care is coordinated with Shelby Vieira. I have reviewed the advanced practitioner's documentation, and I agree with plan of care. Please refer to the documentation above for details of patient's presentation and for discussion of other issues. I spent a total [id number] coordinating, documenting, and providing care for this patient excluding time spent in the performance of separately billed services.
[2023-12-25] MEDS: METOPROLOL TARTRATE 1 MG/ML VIAL IV ONE (18:55)
[2023-12-25] MEDS: METOPROLOL TARTRATE 1 MG/ML VIAL IV STA (18:55)
[2023-12-25 19:48] LABS: Adenovirus PCR Not Detected (NotDetected); Bordetella parapertussis PCR Not Detected (NotDetected); Bordetella pertussis PCR Not Detected (NotDetected); Chlamydia pneumoniae PCR Not Detected (NotDetected); Coronavirus 229E PCR Not Detected (NotDetected); Coronavirus CoV-2 (COVID19)PCR Not Detected (NotDetected); Coronavirus HKU1 PCR Not Detected (NotDetected); Coronavirus NL63 PCR Not Detected (NotDetected); Coronavirus OC43PCR Not Detected (NotDetected); Human Metapneumovirus PCR Not Detected (NotDetected); Influenza A PCR Not Detected (NotDetected); Influenza B PCR Not Detected (NotDetected); Mycoplasma pneumoniae PCR Not Detected (NotDetected); Parainfluenza Virus 1 PCR Not Detected (NotDetected); Parainfluenza Virus 2 PCR Not Detected (NotDetected); Parainfluenza Virus 3 PCR Not Detected (NotDetected); Parainfluenza Virus 4 PCR Not Detected (NotDetected); Respiratory Syncytial VirusPCR Not Detected (NotDetected); Rhinovirus/Enterovirus PCR Not Detected (NotDetected)
[2023-12-25] MEDS ORDERED: ONDANSETRON INJ 2 MG/ML 2 ML VIAL IV PRN (20:40)
[2023-12-25] MEDS ORDERED: POLYETHYLENE (MIRALAX) 17 GM PACK PO PRN (20:40)
[2023-12-25] MEDS: METOPROLOL TARTRATE 25 MG TAB PO SCH (21:26)
[2023-12-25] MEDS: APIXABAN 2.5 MG TAB PO SCH (21:46)
[2023-12-25] MEDS: CALCIUM ACETATE 667 MG CAP/TAB PO SCH (21:46)
[2023-12-25] MEDS: DOXYCYCLINE HYCLATE 100 MG CAP PO SCH (21:46)
[2023-12-25] MEDS: busPIRone 5 MG TAB PO SCH (21:46)
--- NOTE | 2023-12-26 00:20 | Emergency Department Note ---
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 The patient was evaluated in the office today for a "regular checkup and was noted to be tachycardic. EKG was performed and the patient was noted to be in atrial flutter and referred to the emergency department. Patient states he is due for dialysis tomorrow REVIEW OF SYSTEMS: A review of systems was performed with positives and pertinent negatives listed in the history of present illness. 10 systems were reviewed and are otherwise negative. ALLERGIES: see below MEDICATIONS: see below PMH: see below SOCIAL HISTORY: see below DDx:. Electrolyte abnormality, acute coronary syndrome, atrial flutter with RVR, medication effect, medication omission, atrial fibrillation, fluid overload, among others. PHYSICAL EXAM: Vital signs reviewed. General: Chronically ill-appearing 83-year-old male, in no significant distress. HEENT: No scleral icterus, PERRLA, neck supple. Moist mucous membranes Cardiovascular: regular but tachycardic, no extra sounds Pulmonary: coarse breath sounds bilaterally, slightly increased work of breathing, on nasal cannula oxygen. Abdomen: Soft, nontender, nondistended, positive bowel sounds. Musculoskeletal: Atraumatic, no peripheral edema. Neurologic: Patient awake alert and oriented x 3, speech is clear Skin: Warm, dry, no rash EMERGENCY DEPARTMENT COURSE/MDM: this patient was evaluated and appeared to be in no significant distress. IV access was obtained and laboratory work was drawn. The patient was placed on the media monitor noted to be in a rapid atrial flutter. Patient was seen in cardiology's office by Dr. Gooden prior to arrival. Dr. Mathis evaluated the patient in the emergency department. 10 mg of IV Cardizem was administered a significant improvement in the patient's heart rate. Patient remained in atrial flutter, but better rate controlled. This was short-lived and the patient required an additional 5 mg of IV Cardizem however Dr. Vangala of the hospitalist service was at the bedside. Patient's laboratory work reveals an elevated high-sensitivity troponin at 31.6, likely demand mediated. patient's chest x-ray reveals no focal lung consolidation or failure. Patient does have end-stage renal disease on hemodialysis and is due for his dialysis treatment in the morning. Case was discussed with the hospitalist service who will evaluate the patient for admission and further management. Patient and at the bedside were made aware of the findings and plan, they agreed. MONITORING: An order for cardiac monitoring was placed and the patient is noted to be in a atrial flutter at 117 beats per minute. RADIOLOGY: chest x-ray to my interpretation reveals no evidence of focal lung consolidation or failure. EKG: To my interpretation reveals a wide-complex tachycardia at 151 bpm, likely atrial flutter with a right bundle branch block, left anterior fascicular block. QTc of 526. DISPOSITION: admission I have personally spent greater than 40 minutes of critical care time in the direct management of this patient. This includes bedside care, interpretation of diagnostic studies, and testing, discussion with consultants, patient, and family members, and other required patient management activities. This 40 minutes is in excess of all separately billable procedures. Past Med/Surg History Problem List (Updated 12/28/23 @ 22:06 by Ana Renner MD) End-stage renal disease on hemodialysis (Acute) Atrial flutter with rapid ventricular response (Acute) Bifascicular bundle branch block AV fistula Hyperkalemia Pressure injury of buttock, stage 1 Atrial flutter with rapid ventricular response Acute alteration in mental status (Acute) Open thigh wound Acute on chronic diastolic HF (heart failure) Hypercarbia (Acute) Acute hyponatremia (Acute) Edema (Acute) Shortness of breath (Acute) New onset atrial fibrillation Acute on chronic respiratory failure with hypoxia and hypercapnia Atrial fibrillation with RVR (Acute) Hypersomnolent Restrictive lung disease Chronic pulmonary aspiration Volume overload (Acute) End-stage renal disease (ESRD) (Acute) COPD with exacerbation (Acute) Dyslipidemia BPH (benign prostatic hyperplasia) Coronary artery disease S/p stent 1998 HTN (hypertension) Chronic hypoxemic respiratory failure (Acute) Anemia of chronic renal failure Hgb 8-9's per record review COPD (chronic obstructive pulmonary disease) Medical History Multifocal pneumonia History of DVT (deep vein thrombosis) Left renal mass Pneumonia due to COVID-19 virus Urinary frequency Hx of blood clots "IN MY LEGS AND 1 IN MY LUNGS A LONG TIME AGO">WAS ON BLOOD THINNERS, CAUSED BY PHLEBITIS History of COVID-19 02/02/22>STILL HAS FATIGUE Adjustment disorder with mixed disturbance of emotions and conduct History of basal cell carcinoma Carotid stenosis, right 50-69% stenosis to right ICA; <50% stenosis to left ICA per 06/22/21 carotid duplex History of stroke 2017 OR 2018 >NO RESIDUAL History of NV (myocardial infarction) 1998 MOLLY and COPD overlap syndrome WEARS 4L O2 AT HS Prediabetes PT DENIES Renal osteodystrophy Papillary renal cell carcinoma WITH MALIGNANCY>NO TREATMENT YET (CURRENT DX) Surgical History History of anesthesia reaction SLOW TO WAKE UP History of arthroscopy LEFT KNEE History of colonoscopy History of tooth extraction History of tonsillectomy History of cataract surgery RT/LEFT History of cholecystectomy History of appendectomy History of heart artery stent 1998>? # STENTS PLACED [facility] (FOLLWED BY DR. 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 Surgical Appliances Required: No Beliefs That Will Affect Care: None Current Living Situation: Spouse Feels Safe at Home: Yes Safety Concerns: Feels Safe At This Time Assistive Devices: Cane, Oxygen - Continuous and Walker Allergies Allergies Allergy/AdvReac Type Severity Reaction Status Date / Time lorazepam AdvReac Intermediate Hallucinati Verified 11/10/23 19:09 ng/Confusio n Home Meds Home Medications Medication Instructions Recorded Confirmed venlafaxine 37.5 mg 37.5 mg PO DAILY 02/01/22 12/25/23 capsule,extended release 24 hr (Effexor XR) nitroglycerin 0.4 mg sublingual 0.4 mg sublingual UD PRN Chest Pain 05/14/23 12/25/23 tablet (Nitrostat) rosuvastatin 10 mg tablet 10 mg PO QAM 05/14/23 12/25/23 buspirone 5 mg tablet 5 mg PO AMHS 08/26/23 12/25/23 glycopyrrolate 9 mcg-formoterol 1 puff inhalation BID 08/26/23 12/25/23 4.8 mcg HFA aerosol inhaler (Bevespi Aerosphere) midodrine 5 mg tablet 10 mg PO 3XWK 08/26/23 12/25/23 vitamin B complex-vitamin C-folic 1 tab PO 3XWK 08/26/23 12/25/23 acid 0.8 mg tablet (Izzy-Vianney) ipratropium 0.5 mg-albuterol 3 mg 3 ml NEB Q4 PRN Wheezing 10/31/23 12/25/23 (2.5 mg base)/3 mL nebulization soln calcium acetate(phosphat bind) 667 1,334 mg PO TIDWMEAL 11/10/23 12/25/23 mg capsule lorazepam 0.5 mg tablet 0.5 mg PO DIRECTED 11/10/23 12/25/23 albuterol sulfate 2.5 mg/3 mL 2.5 mg continuous nebulization Q6 12/25/23 12/25/23 (0.083 %) solution for nebulization PRN Wheezing albuterol sulfate 90 mcg/actuation 2 puff inhalation Q4 PRN Wheezing 12/25/23 12/25/23 aerosol inhaler metoprolol tartrate 25 mg tablet 25 mg PO BID 12/25/23 12/25/23 Previous Rx's Medication Instructions Recorded apixaban 2.5 mg tablet (Eliquis) 2.5 mg PO BID #60 tabs 08/29/23 Results & Data (ED) Vital Signs Vital Signs - 24 hr 12/25/23 16:37 12/25/23 16:51 12/25/23 16:51 Temperature 36.6 C 36.6 C Temperature Source Oral Oral Pulse Rate 152 H Pulse Rate [Apical] 152 H Respiratory Rate 15 17 Blood Pressure 113/70 Blood Pressure [Left Arm] 113/70 Blood Pressure Mean 84 Blood Pressure Mean [Left Arm] 84 Pulse Oximetry Oxygen Delivery Method Nasal Cannula Nasal Cannula Oxygen Flow Rate 4 4 Sepsis Recent Fever Within 48 Hours No Sepsis New/Unexplained Change in Mental Status N/A Sepsis Action Taken by Nursing No Action Required 12/25/23 16:55 12/25/23 16:56 12/25/23 16:56 Temperature Temperature Source Pulse Rate 152 H Pulse Rate [Apical] Respiratory Rate 23 Blood Pressure Blood Pressure [Left Arm] Blood Pressure Mean Blood Pressure Mean [Left Arm] Pulse Oximetry Oxygen Delivery Method Nasal Cannula Nasal Cannula Nasal Cannula Oxygen Flow Rate 4 4 4 Sepsis Recent Fever Within 48 Hours Sepsis New/Unexplained Change in Mental Status Sepsis Action Taken by Nursing 12/25/23 17:11 12/25/23 18:00 12/25/23 18:03 Temperature Temperature Source Pulse Rate 150 H Pulse Rate [Apical] 151 H 78 Respiratory Rate 24 Blood Pressure Blood Pressure [Left Arm] 114/67 Blood Pressure Mean Blood Pressure Mean [Left Arm] 82 Pulse Oximetry 96 Oxygen Delivery Method Nasal Cannula Oxygen Flow Rate 4 Sepsis Recent Fever Within 48 Hours Sepsis New/Unexplained Change in Mental Status Sepsis Action Taken by Halfway Medications Current Medication List: was personally reviewed by me Laboratory Data Attestation: I reviewed the patient's lab results. 12/28/23 07:02 12/28/23 07:02 Lab Results 12/25/23 12/25/23 Range/Units 17:03 17:17 WBC 7.77 (4.8-10.8) K/ul RBC 3.41 L (4.70-6.10) M/uL Hgb 9.7 L (14.0-18.0) g/dl Hct 30.6 L (42.0-52.0) % MCV 89.7 (80.0-100.0) fL MCH 28.4 (25.0-34.0) pg MCHC 31.7 L (32.0-36.0) g/dL RDW Std Deviation 55.8 H (36.4-46.3) fL RDW Coeff of John 17.0 H (11.5-14.5) % Plt Count 122 L (130-400) K/uL MPV 10.0 (9.4-12.4) fL Immature Gran % (Auto) 0.3 % Neut % (Auto) 81.8 % Lymph % (Auto) 6.6 % [place] % (Auto) 9.9 % Eos % (Auto) 1.0 % Baso % (Auto) 0.4 % Neut # (Auto) 6.36 (1.40-6.50) K/uL Lymph # (Auto) 0.51 L (1.20-3.40) K/uL [place] # (Auto) 0.77 H (0.11-0.59) K/uL Eos # (Auto) 0.08 (0.00-0.50) K/uL Baso # (Auto) 0.03 (0.00-0.20) K/uL Immature Gran # (Auto) 0.02 (0.01-0.20) K/uL PT 11.7 (9.0-12.0) Seconds INR 1.1 (0.9-1.1) APTT 32 H (21-31) Seconds PTT Ratio 1.2 Sodium 136 (136-145) mmol/L Potassium 5.0 (3.5-5.1) mmol/L Chloride 94 L (98-107) mmol/L Carbon Dioxide 28 (21-32) mmol/L Anion Gap 14 H (3-11) BUN 54 H (6-23) mg/dl Creatinine 7.28 H* (0.6-1.4) mg/dl Est Cr Clr Drug Dosing 8.0 ml/min eGFR 6.90 BUN/Creatinine Ratio 7.4 L (10-20) Glucose 122 H (70-99(Fasting)) mg/dl Calcium 8.9 (8.6-10.3) mg/dl Magnesium 2.2 (1.7-2.4) mg/dl Total Bilirubin 0.5 (0.2-1.0) mg/dl AST 20 (13-39) U/L ALT 13 (7-52) U/L Alkaline Phosphatase 62 (34-104) U/L Troponin I High Sens 31.6 H (0-20) pg/ml Total Protein 7.5 (6.0-8.3) gm/dl Albumin 4.2 (3.4-5.0) gm/dl Globulin 3.3 (2.5-4.0) gm/dl Albumin/Globulin Ratio 1.3 (0.9-2) Adenovirus (PCR) Not Detected (NotDetected) B. pertussis DNA (PCR) Not Detected (NotDetected) B.parapertussis DNA PCR Not Detected (NotDetected) C. pneumoniae DNA (PCR) Not Detected (NotDetected) Coronavirus OC43 (PCR) Not Detected (NotDetected) Coronavirus HKU1 (PCR) Not Detected (NotDetected) Coronavirus 229E (PCR) Not Detected (NotDetected) SARS-CoV-2 (PCR) Not Detected (NotDetected) Coronavirus NL63 (PCR) Not Detected (NotDetected) Human Metapneumovir PCR Not Detected (NotDetected) Influenza Type A (PCR) Not Detected (NotDetected) Influenza Type B (PCR) Not Detected (NotDetected) M. pneumoniae (PCR) Not Detected (NotDetected) Parainfluenza 1 (PCR) Not Detected (NotDetected) Parainfluenza 2 (PCR) Not Detected (NotDetected) Parainfluenza 3 (PCR) Not Detected (NotDetected) Parainfluenza 4 (PCR) Not Detected (NotDetected) RSV (PCR) Not Detected (NotDetected) Entero/Rhino (PCR) Not Detected (NotDetected) Administered Medications Acetaminophen (Acetaminophen 325 Mg Tab) 650 mg PO Q4H PRN PRN Reason: Pain or Fever Stop: 01/24/24 20:39 Last Admin: 12/28/23 08:51 Dose: 650 mg Documented By: Admin: 12/27/23 17:13 Dose: 650 mg Documented By: Admin: 12/27/23 11:14 Dose: 650 mg Documented By: KERRY Amoxicillin/Clavulanate Potassium (Amoxicillin/Clavulanate 500 Mg Tab) [address] [facility] Stop: 01/02/24 16:29 Last Admin: 12/28/23 16:13 Dose: 1 tab Documented By: Admin: 12/27/23 16:46 Dose: 1 tab Documented By: KERRY Apixaban (Apixaban 2.5 Mg Tab) 2.[address] [facility] Stop: 01/24/24 20:59 Last Admin: 12/28/23 21:08 Dose: 2.5 mg Documented By: Admin: 12/28/23 08:48 Dose: 2.5 mg Documented By: Admin: 12/27/23 21:05 Dose: 2.5 mg Documented By: Admin: 12/27/23 11:20 Dose: 2.5 mg Documented By: Admin: 12/26/23 21:14 Dose: 2.5 mg Documented By: Admin: 12/26/23 08:36 Dose: 2.5 mg Documented By: Admin: 12/25/23 21:46 Dose: 2.5 mg Documented By: HIRA Budesonide (Budesonide 0.5 Mg/2 Ml Vial (Pulmicort)) 0.5 mg NEB BIDR [facility] Stop: 01/25/24 18:59 Last Admin: 12/28/23 20:37 Dose: 0.5 mg Documented By: Admin: 12/28/23 07:21 Dose: 0.5 mg Documented By: Admin: 12/27/23 21:14 Dose: 0.5 mg Documented By: Admin: 12/27/23 07:21 Dose: 0.5 mg Documented By: [id number] Admin: 12/26/23 19:19 Dose: 0.5 mg Documented By: ROSI Buspirone HCl (Buspirone 5 Mg Tab) 5 mg PO AMHS [facility] Stop: 01/24/24 20:59 Last Admin: 12/28/23 21:08 Dose: 5 mg Documented By: Admin: 12/28/23 09:58 Dose: Not Given Documented By: Admin: 12/27/23 21:03 Dose: 5 mg Documented By: Admin: 12/27/23 11:19 Dose: 5 mg Documented By: Admin: 12/26/23 21:14 Dose: 5 mg Documented By: Admin: 12/26/23 08:37 Dose: 5 mg Documented By: Admin: 12/25/23 21:46 Dose: 5 mg Documented By: HIRA Calcium Acetate (Calcium Acetate 667 Mg Cap/Tab) 1,334 mg PO TIDM [facility] Stop: 01/24/24 20:39 Last Admin: 12/28/23 16:14 Dose: 1,334 mg Documented By: Admin: 12/28/23 12:31 Dose: Not Given Documented By: Admin: 12/28/23 08:50 Dose: 1,334 mg Documented By: Admin: 12/27/23 17:13 Dose: 1,334 mg Documented By: Admin: 12/27/23 12:22 Dose: 1,334 mg Documented By: Admin: 12/27/23 08:29 Dose: 1,334 mg Documented By: Admin: 12/26/23 17:36 Dose: 1,334 mg Documented By: Admin: 12/26/23 14:44 Dose: 1,334 mg Documented By: Admin: 12/26/23 08:37 Dose: 1,334 mg Documented By: Admin: 12/25/23 21:46 Dose: 1,334 mg Documented By: HIRA Diltiazem HCl (Diltiazem Hcl 30 Mg Tab) 30 mg PO DAILY [facility] Stop: 01/27/24 08:59 Last Admin: 12/28/23 08:51 Dose: 30 mg Documented By: LEI Formoterol Fumarate (Formoterol 20 Mcg/2 Ml Vial) 20 mcg NEB BIDR [facility] Stop: 01/25/24 16:54 Last Admin: 12/28/23 20:37 Dose: 20 mcg Documented By: Admin: 12/28/23 07:21 Dose: 20 mcg Documented By: Admin: 12/27/23 21:13 Dose: 20 mcg Documented By: Admin: 12/27/23 07:21 Dose: 20 mcg Documented By: [id number] Admin: 12/26/23 19:19 Dose: 20 mcg Documented By: ROSI Guaifenesin (Guaifenesin 600 Mg Tabcr) 600 mg PO Q12 [facility] Stop: 01/25/24 20:59 Last Admin: 12/28/23 21:09 Dose: 600 mg Documented By: Admin: 12/28/23 08:51 Dose: 600 mg Documented By: Admin: 12/27/23 21:03 Dose: 600 mg Documented By: Admin: 12/27/23 11:22 Dose: 600 mg Documented By: Admin: 12/26/23 21:16 Dose: 600 mg Documented By: ANAMARIA Methylprednisolone 40 mg/ (Syringe) 0.64 mls @ 1.5 mls/min IV DAILY [facility] Stop: 01/02/24 08:59 Last Admin: 12/28/23 08:53 Dose: 1.5 mls/min Documented By: LEI Levalbuterol HCl (Levalbuterol Hcl 0.63 Mg/3 Ml Neb) 0.63 mg NEB Q6R PRN; Protocol PRN Reason: Shortness Of Breath Or Wheezing Stop: 01/24/24 20:39 Last Admin: 12/27/23 00:45 Dose: 0.63 mg Documented By: Admin: 12/26/23 16:09 Dose: 0.63 mg Documented By: [id number] Admin: 12/26/23 07:34 Dose: 0.63 mg Documented By: KAYLA Lorazepam (Lorazepam 0.5 Mg Tab) 0.5 mg PO DAILY PRN PRN Reason: 15-20 mins Before Dialysis Stop: 01/24/24 20:39 Last Admin: 12/27/23 08:33 Dose: 0.5 mg Documented By: Admin: 12/26/23 10:33 Dose: 0.5 mg Documented By: COLBY Metoprolol Tartrate (Metoprolol Tartrate 50 Mg Tab) [address] [facility] Stop: 01/27/24 20:59 Last Admin: 12/28/23 21:10 Dose: 50 mg Documented By: VICTORINA Midodrine (Midodrine Hcl 10 Mg Tab) 10 mg PO DAILY PRN PRN Reason: Take before dialysis Stop: 01/24/24 20:39 Last Admin: 12/27/23 08:36 Dose: 10 mg Documented By: Admin: 12/26/23 11:25 Dose: 10 mg Documented By: MICHAEL Midodrine (Midodrine Hcl 2.5 Mg Tab) 2.5 mg PO TID@0800,1200,1700 [facility] Stop: 01/26/24 16:59 Last Admin: 12/28/23 16:14 Dose: 2.5 mg Documented By: Admin: 12/28/23 12:31 Dose: Not Given Documented By: Admin: 12/28/23 08:49 Dose: 2.5 mg Documented By: Admin: 12/27/23 17:10 Dose: 2.5 mg Documented By: KERRY Patiromer (Patiromer Calcium Sorbitex 8.4 Gm Pack) 16.8 gm PO DAILY@1200 [facility] Stop: 01/26/24 20:29 Last Admin: 12/28/23 12:31 Dose: Not Given Documented By: Admin: 12/27/23 21:16 Dose: 16.8 gm Documented By: SARAHI Rosuvastatin Calcium (Rosuvastatin Calcium 10 Mg Tab) [address] [facility] Stop: 01/25/24 08:59 Last Admin: 12/28/23 08:51 Dose: 10 mg Documented By: Admin: 12/27/23 11:19 Dose: 10 mg Documented By: Admin: 12/26/23 08:36 Dose: 10 mg Documented By: COLBY Umeclidinium/Vilanterol (Umeclidinium/Vilanterol 62.5/25mcg 7 Puffs/Inhaler) [address] [facility]; Protocol Stop: 01/25/24 06:59 Last Admin: 12/28/23 21:07 Dose: 1 puffs Documented By: Admin: 12/28/23 09:02 Dose: 1 puffs Documented By: Admin: 12/27/23 21:32 Dose: Not Given Documented By: Admin: 12/27/23 08:27 Dose: 1 puffs Documented By: Admin: 12/26/23 22:08 Dose: Not Given Documented By: RNDariel Admin: 12/26/23 08:35 Dose: 1 puffs Documented By: COLBY Venlafaxine HCl (Venlafaxine Hcl Xr 37.5 Mg Capxr) 37.[address] [facility] Stop: 01/25/24 08:59 Last Admin: 12/28/23 08:51 Dose: 37.5 mg Documented By: Admin: 12/27/23 11:21 Dose: 37.5 mg Documented By: Admin: 12/26/23 08:36 Dose: 37.5 mg Documented By: COLBY Discontinued Medications Albuterol (Albut/Ipratrop 3mg/0.5mg Neb 3 Ml Vial) 3 ml NEB NOW STA; Protocol Stop: 12/25/23 16:56 Last Admin: 12/25/23 17:13 Dose: 3 ml Documented By: RICHARD Diltiazem HCl (Diltiazem Hcl 5 Mg/Ml 5 Ml Vial) 20 mg IV NOW STA Stop: 12/25/23 17:44 Last Admin: 12/25/23 18:02 Dose: Not Given Documented By: RICHARD Diltiazem HCl (Diltiazem Hcl 5 Mg/Ml 5 Ml Vial) 10 mg IV NOW STA Stop: 12/25/23 17:50 Last Admin: 12/25/23 17:59 Dose: 10 mg Documented By: RICHARD Co-signed By: Diltiazem HCl (Diltiazem Hcl 30 Mg Tab) 30 mg PO NOW ONE Stop: 12/27/23 13:59 Last Admin: 12/27/23 16:44 Dose: 30 mg Documented By: EP Doxycycline Hyclate (Doxycycline Hyclate 100 Mg Cap) 100 mg PO BID [facility] Stop: 01/01/24 20:59 Last Admin: 12/26/23 08:34 Dose: 100 mg Documented By: Admin: 12/25/23 21:46 Dose: 100 mg Documented By: HIRA Heparin Sodium (Porcine) (Heparin Sod (Porcine) 1000 Unit/Ml) 1,000 units IV ONE ONE Stop: 12/26/23 08:52 Last Admin: 12/26/23 11:35 Dose: Not Given Documented By: CC Heparin Sodium (Porcine) (Heparin Sod (Porcine) 1000 Unit/Ml) [address] [facility] Stop: 12/26/23 11:01 Last Admin: 12/26/23 12:31 Dose: Not Given Documented By: Admin: 12/26/23 12:31 Dose: Not Given Documented By: Admin: 12/26/23 11:36 Dose: Not Given Documented By: CC Heparin Sodium (Porcine) (Heparin Sod (Porcine) 1000 Unit/Ml) 1,000 units IV ONE ONE Stop: 12/27/23 08:14 Last Admin: 12/27/23 09:49 Dose: Not Given Documented By: LM Heparin Sodium (Porcine) (Heparin Sod (Porcine) 1000 Unit/Ml) [address] [facility] Stop: 12/27/23 10:16 Last Admin: 12/27/23 11:24 Dose: Not Given Documented By: Admin: 12/27/23 09:49 Dose: Not Given Documented By: Admin: 12/27/23 09:49 Dose: Not Given Documented By: LM Heparin Sodium (Porcine) (Heparin Sod (Porcine) 1000 Unit/Ml) 1,000 units IV ONE ONE Stop: 12/28/23 07:01 Last Admin: 12/28/23 11:27 Dose: Not Given Documented By: CC Heparin Sodium (Porcine) (Heparin Sod (Porcine) 1000 Unit/Ml) 400 units IV Q1H [facility] Stop: 12/28/23 09:01 Last Admin: 12/28/23 11:28 Dose: Not Given Documented By: Admin: 12/28/23 11:27 Dose: Not Given Documented By: Admin: 12/28/23 11:27 Dose: Not Given Documented By: CC Methylprednisolone 40 mg/ (Syringe) 0.64 mls @ 1.5 mls/min IV DAILY [facility] Stop: 01/25/24 08:59 Last Admin: 12/26/23 08:35 Dose: 1.5 mls/min Documented By: AM Ampicillin Sodium/Sulbactam Sodium (Unasyn) 3,000 mg in 100 mls @ 200 mls/hr IV Q6H [facility] Stop: 01/02/24 17:59 Last Infusion: 12/27/23 06:06 Dose: Infused Documented By: Admin: 12/27/23 05:36 Dose: 200 mls/hr Documented By: Infusion: 12/27/23 01:09 Dose: Infused Documented By: Admin: 12/27/23 00:39 Dose: 200 mls/hr Documented By: Infusion: 12/26/23 18:01 Dose: Infused Documented By: Admin: 12/26/23 17:29 Dose: 200 mls/hr Documented By: AM Methylprednisolone 40 mg/ (Syringe) 0.64 mls @ 1.5 mls/min IV Q8 [facility]OS Stop: 01/25/24 16:59 Last Admin: 12/27/23 15:59 Dose: Not Given Documented By: Admin: 12/27/23 05:37 Dose: 1.5 mls/min Documented By: Admin: 12/27/23 00:39 Dose: 1.5 mls/min Documented By: Admin: 12/26/23 18:01 Dose: 1.5 mls/min Documented By: AM Methylprednisolone (Methylprednisolone 125 Mg/2 Ml Vial) 60 mg IV NOW STA Stop: 12/25/23 16:59 Last Admin: 12/25/23 17:16 Dose: 60 mg Documented By: SKM Metoprolol Tartrate (Metoprolol Tartrate 25 Mg Tab) 12.5 mg PO QID [facility] Stop: 01/24/24 20:59 Last Admin: 12/27/23 08:33 Dose: 12.5 mg Documented By: Admin: 12/26/23 21:15 Dose: 12.5 mg Documented By: Admin: 12/26/23 17:06 Dose: 12.5 mg Documented By: Admin: 12/26/23 14:46 Dose: Not Given Documented By: Admin: 12/26/23 14:44 Dose: 12.5 mg Documented By: Admin: 12/25/23 21:26 Dose: 12.5 mg Documented By: HIRA Metoprolol Tartrate (Metoprolol Tartrate 1 Mg/Ml Vial) Confirm Administered Dose 5 mg IV .STK-MED ONE Stop: 12/25/23 18:50 Last Admin: 12/25/23 18:55 Dose: Not Given Documented By: RICHARD Metoprolol Tartrate (Metoprolol Tartrate 1 Mg/Ml Vial) 5 mg IV NOW STA Stop: 12/25/23 18:52 Last Admin: 12/25/23 18:55 Dose: 5 mg Documented By: RICHARD Metoprolol Tartrate (Metoprolol Tartrate 25 Mg Tab) [address] [facility] Stop: 01/26/24 12:59 Last Admin: 12/28/23 08:48 Dose: 25 mg Documented By: Admin: 12/27/23 21:04 Dose: 25 mg Documented By: Admin: 12/27/23 17:11 Dose: 25 mg Documented By: Admin: 12/27/23 12:23 Dose: 25 mg Documented By: KERRY Sodium Zirconium Cyclosilicate (Sodium Zirconium Cyclosilicate 10 Gm Packet) 10 gm PO DAILY@1100 [facility] Stop: 01/26/24 15:49 Last Admin: 12/27/23 17:08 Dose: 10 gm Documented By: EP Imaging Data Radiologist's Impression: Chest X-Ray 12/25/23 16:47 XR chest 1V portable CLINICAL HISTORY: Dyspnea TECHNIQUE: Single frontal radiograph of the chest was obtained. Comparison: Comparison is made to chest radiograph 12/17/2023 FINDINGS: No lines and tubes are seen. Cardiomegaly is noted. The lungs are clear. No evidence of pleural effusion or pneumothorax. IMPRESSION: No acute chest disease. ACT 112: Negative or not required by law. Electronically signed by: Elio Pacheco M.D. 12/25/2023 5:37 PM Discharge Plan Visit Data Chief Complaint: Cardiac Assessment Stated Complaint: CARDIAC ASSESMENT ED Provider: Ana Renner Discharge Problem: Atrial flutter with rapid ventricular response, End-stage renal disease on hemodialysis Patient Disposition: Admitted As Inpatient Discharge Instructions Interventions: ED Discharge Assessment Last Done: 12/25/23 20:05
[2023-12-26 07:08] LABS: Hematocrit (blood only) 29.4 % (42.0-52.0); Mean Corpuscular Hgb Conc 30.6 g/dL (32.0-36.0); Mean Corpuscular Volume 91.6 fL (80.0-100.0); Mean Platelet Volume 10.3 fL (9.4-12.4); Platelet Count 137 K/uL (130-400); RDW Coefficient of Variation 16.9 % (11.5-14.5); RDW Standard Deviation 55.9 fL (36.4-46.3); Red Blood Count 3.21 M/uL (4.70-6.10); White Blood Count 8.52 K/ul (4.8-10.8)
--- NOTE | 2023-12-26 07:21 | Hospitalist Progress Note ---
Date of Service December 26, 2023 Assessment & Plan (1) Atrial flutter with rapid ventricular response: (2) Chronic hypoxemic respiratory failure: (3) COPD with exacerbation: (4) Pressure injury of buttock, stage 1: (5) End-stage renal disease (ESRD): (6) Anemia of chronic renal failure: (7) Dyslipidemia: (8) Coronary artery disease: (9) History of DVT (deep vein thrombosis): Plan Mr Pinedo is an 83 year old male with a complex medical history including CAD s/p stent, ESRD with recent HD start, O2 dependent COPD, MOLLY, HTN, prior CVA with right weakness, prediabetes, 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 Per daughter, patient went to Cardiology appointment without his oxygen therapy, likely precipitated a fib/flutter RVR and exacerbation as he was last well known that morning #Positive blood culture 03/21 positive at this time with staph epi. likely contaminate, will continue follow #Atrial fibrillation/flutter with RVR suspect likely in relation to noncompliance with Oxygen (daughter reports patient presented to cardiology appointment with out O2) Cardiology consulted, reviewed recommendations Started on metoprolol 12.5mg qid, continue -issues with hypotension during HD -Plan for 50mg XL metoprolol BID on non-HD days and 25mg qhs after HD (TThSa) -Continue low does eliquis -Will start XL depending on rates on tele overnight in am #Acute COPD exacerbation #Acute on chronic hypoxemic resp failure, on 4L baseline Reported increased cough since yesterday with some yellow sputum, noncompliant with o2 for commuting purposes [employer] respiratory panel negative/ CXR without infiltrate Now at baseline, procal 0.74, mrsa neg continue doxycycline at this time Continue IV solumedrol, mucinex, flutter valve continue bronchodilator, nebs prn #Pressure injury of buttock, stage 1: Wound nurse consult # End-stage renal disease (ESRD): #Anemia of chronic renal failure: On HD on , Sat Nephrology consult for assistance in HD and volume status Continue home renal vitamins Continue midodrine prior to HD H&H stable #Dyslipidemia: Continue atorvastatin #Coronary artery disease: S/P Stent Denies CP Continue atorvastatin #History of DVT (deep vein thrombosis): Continue Eliquis DVT eliquis Dispo 1-2 days contingent on rate control and medication optimization Admission and Anticipated Discharge Date Admission Date: December 25, 2023 Subjective NAEO Eager to discharge home, states he "feels fine" States his breathing feels the "same it always does" Evaluated once more after HD, states he wishes to go home--informed patient he would need to stay to ensure stable resp status and heart rates Patient wished to continue napping s/p HD spoke to daughter on phone at bedside, who agreed with staying the evening Physical Exam Constitutional: alert and oriented this morning; napping this afternoon after HD Respiratory: rhonchi bilaterally Cardiovascular: irregular rate Results & Data Results & Data Vital Signs (Past 12 Hours) Vital Signs Temp Pulse Pulse Pulse Resp BP BP 12/26/23 03:01 36.5 C 70 20 150/83 H 12/25/23 22:44 36.4 C L 99 H 18 116/75 12/25/23 22:41 139 H 12/25/23 21:03 36.6 C 88 20 118/87 12/25/23 21:00 36.6 C 88 19 118/87 12/25/23 20:40 154 H 12/25/23 20:40 12/25/23 20:05 98 H 19 103/62 12/25/23 19:34 117 H 19 140/85 Pulse Ox O2 Del Method O2 Flow Rate 12/26/23 03:01 98 Nasal Cannula 4 12/25/23 22:44 92 Nasal Cannula 4 12/25/23 22:41 12/25/23 21:03 97 Nasal Cannula 4 12/25/23 21:00 95 Nasal Cannula 4 12/25/23 20:40 12/25/23 20:40 Nasal Cannula 4 12/25/23 20:05 98 Nasal Cannula 4 12/25/23 19:34 95 Nasal Cannula 4 Laboratory Results Short CBC 12/25/23 12/26/23 Range/Units 17:17 06:23 WBC 7.77 8.52 (4.8-10.8) K/ul Hgb 9.7 L 9.0 L (14.0-18.0) g/dl Hct 30.6 L 29.4 L (42.0-52.0) % Plt Count 122 L 137 (130-400) K/uL BMP 12/25/23 12/26/23 17:17 06:23 Sodium 136 133 L Potassium 5.0 6.6 H* D Chloride 94 L 95 L Carbon Dioxide 28 24 BUN 54 H 75 H D Creatinine 7.28 H* 8.00 H* D Glucose 122 H 138 H Calcium 8.9 8.5 L Liver Function 12/25/23 Range/Units 17:17 Total Bilirubin 0.5 (0.2-1.0) mg/dl AST 20 (13-39) U/L ALT 13 (7-52) U/L Alkaline Phosphatase 62 (34-104) U/L Albumin 4.2 (3.4-5.0) gm/dl Medications Administered Home Medications Medication Instructions Recorded Confirmed Last Taken venlafaxine 37.5 mg 37.5 mg PO DAILY 02/01/22 12/25/23 10/31/23 capsule,extended release 24 hr (Effexor XR) nitroglycerin 0.4 mg sublingual 0.4 mg sublingual UD PRN Chest Pain 05/14/23 12/25/23 Unknown tablet (Nitrostat) rosuvastatin 10 mg tablet 10 mg PO QAM 05/14/23 12/25/23 10/31/23 buspirone 5 mg tablet 5 mg PO AMHS 08/26/23 12/25/23 10/31/23 glycopyrrolate 9 mcg-formoterol 1 puff inhalation BID 08/26/23 12/25/23 10/31/23 4.8 mcg HFA aerosol inhaler (Bevespi Aerosphere) midodrine 5 mg tablet 10 mg PO 3XWK 08/26/23 12/25/23 Unknown vitamin B complex-vitamin C-folic 1 tab PO 3XWK 08/26/23 12/25/23 Unknown acid 0.8 mg tablet (Izzy-Vianney) apixaban 2.5 mg tablet (Eliquis) 2.5 mg PO BID #60 tabs 08/29/23 12/25/23 11/10/23 09:00 ipratropium 0.5 mg-albuterol 3 mg 3 ml NEB Q4 PRN Wheezing 10/31/23 12/25/23 Unknown (2.5 mg base)/3 mL nebulization soln calcium acetate(phosphat bind) 667 1,334 mg PO TIDWMEAL 11/10/23 12/25/23 Unknown mg capsule lorazepam 0.5 mg tablet 0.5 mg PO DIRECTED 11/10/23 12/25/23 Unknown albuterol sulfate 2.5 mg/3 mL 2.5 mg continuous nebulization Q6 12/25/23 12/25/23 Unknown (0.083 %) solution for nebulization PRN Wheezing albuterol sulfate 90 mcg/actuation 2 puff inhalation Q4 PRN Wheezing 12/25/23 12/25/23 Unknown aerosol inhaler metoprolol tartrate 25 mg tablet 25 mg PO BID 12/25/23 12/25/23 12/25/23 Active Medications Generic Name Dose Route Start Last Admin Trade Name Freq PRN Reason Stop Dose Admin Apixaban 2.5 mg 12/25/23 21:00 12/26/23 08:36 Apixaban 2.5 Mg Tab PO 01/24/24 20:59 2.5 mg BID MARCOS Administration Buspirone HCl 5 mg 12/25/23 21:00 12/26/23 08:37 Buspirone 5 Mg Tab PO 01/24/24 20:59 5 mg AMHS MARCOS Administration Calcium Acetate 1,334 mg 12/25/23 20:40 12/26/23 14:44 Calcium Acetate 667 Mg Cap/Tab PO 01/24/24 20:39 1,334 mg TIDM MARCOS Administration Doxycycline Hyclate 100 mg 12/25/23 21:00 12/26/23 08:34 Doxycycline Hyclate 100 Mg Cap PO 01/01/24 20:59 100 mg BID MARCOS Administration Methylprednisolone 40 mg/ 0.64 mls @ 1.5 mls/min 12/26/23 09:00 12/26/23 08:35 Syringe IV 01/25/24 08:59 1.5 mls/min DAILY MARCOS Administration Levalbuterol HCl 0.63 mg 12/25/23 20:40 12/26/23 16:09 Levalbuterol Hcl 0.63 Mg/3 Ml Neb NEB 01/24/24 20:39 0.63 mg Q6R PRN Administration Shortness Of Breath Or Wheezing Protocol Lorazepam 0.5 mg 12/25/23 20:40 12/26/23 10:33 Lorazepam 0.5 Mg Tab PO 01/24/24 20:39 0.5 mg DAILY PRN Administration 15-20 mins Before Dialysis Metoprolol Tartrate 12.5 mg 12/25/23 21:00 12/26/23 14:46 Metoprolol Tartrate 25 Mg Tab PO 01/24/24 20:59 Not Given QID MARCOS Midodrine 10 mg 12/25/23 20:40 12/26/23 11:25 Midodrine Hcl 10 Mg Tab PO 01/24/24 20:39 10 mg DAILY PRN Administration Take before dialysis Rosuvastatin Calcium 10 mg 12/26/23 09:00 12/26/23 08:36 Rosuvastatin Calcium 10 Mg Tab PO 01/25/24 08:59 10 mg QAM MARCOS Administration Umeclidinium/Vilanterol 1 puffs 12/26/23 07:00 12/26/23 08:35 Umeclidinium/Vilanterol 62.5/25mcg 7 Puffs/Inhaler INH 01/25/24 06:59 1 puffs BIDR MARCOS Administration Protocol Venlafaxine HCl 37.5 mg 12/26/23 09:00 12/26/23 08:36 Venlafaxine Hcl Xr 37.5 Mg Capxr PO 01/25/24 08:59 37.5 mg DAILY MARCOS Administration
[2023-12-26] MEDS: LEVALBUTEROL HCL 0.63 MG/3 ML NEB NEB PRN (07:34)
[2023-12-26 07:42] LABS: BUN Creatinine Ratio 9.4 (10-20); Calcium 8.5 mg/dl (8.6-10.3); Creatinine Clr Calc Pharmacy 7.2 ml/min; Magnesium 2.2 mg/dl (1.7-2.4); Phosphorus 8.4 mg/dl (2.5-4.9); Potassium 6.6 mmol/L (3.5-5.1)
[2023-12-26] MEDS: UMECLIDINIUM/VILANTEROL 62.5/25MCG 7 PUFFS/INHALER INH SCH (08:35)
[2023-12-26] MEDS: methylPREDNISolone 40 MG in SYRINGE 0 ML IV SCH ×2 (08:35→18:01)
[2023-12-26] MEDS: ROSUVASTATIN CALCIUM 10 MG TAB PO SCH (08:36)
[2023-12-26] MEDS: VENLAFAXINE HCL XR 37.5 MG CAPXR PO SCH (08:36)
[2023-12-26] MEDS ORDERED: SODIUM CHLORIDE 0.9% 1,000 ML IV PRN (08:48)
[2023-12-26] MEDS ORDERED: methylPREDNISolone 125 MG/2 ML VIAL IV SCH (09:00)
--- NOTE | 2023-12-26 09:00 | Nephrology Consultation ---
Date of Consultation December 26, 2023 Assessment & Plan (1) Hyperkalemia: for treatment by 11 AM on 2K bath for K 5.7 this am -daily bmp -dialysis diet (2) End-stage renal disease (ESRD): chronic volume overload in setting of progressive restrictive lung disease, chronic hypoxic resp failure and now atrial fibrillation -as aggressive UF as tolerated -monitor for need for extra treatment; routine treatment today -continue low dose midodrine w/ HD Care coordinated w/ Dr Matthew regarding dialysis plans/timing as well as management of potassium and hemoglobin via [place] [facility]; we are in agreement. (3) Anemia of chronic renal failure: transfusion dependent; no ASHLI d/t active renal cell CA; hgb 9.0; no indication for transfusion today (4) Atrial fibrillation with RVR: per cardiology/ primary service; appreciate beta harish recommendations History of Present Illness Reason for Consultation: ESRD on HD Requesting Physician: Dr Merino Attending Physician: Fabiana Matthew MD History of Present Illness 83 y/o M whom I'm asked to see for ESRD on HD was admitted last evening for a fib w/ RVR. PMH includes ESRD on HD, long hx of HTN, CAD, stroke w/ residual RLE wkness, R arm pain; chronic hypoxic respiratory failure on 4L 02NC 08/10 and restrictive lung dz (follows w/ [facility] pulm) attributed to volume overload and chronic pulmonary aspiration, renal cell carcinoma L 2.6 cm under observation, monoclonal gammopathy, anxiety/depression. Hemodialysis has been complicated by significant anxiety requiring medication and intradialytic hypotension, both of which limit our ability to manage volume overload appropriately. he was seen at [facility] cardiology yesterday and came w/o his 02 per report > found to be in A Fib w/ RVR and referred here. His HR has been variable including up to 140s since arrival and he has been getting intermittent lopressor doses. Cardiology evaluated the patient and has proposed metoprolol dosing modifications. The patient had HD today and tolerated it for 3 hours (4 hour treatment ordered) with 2 L fluid removed. he takes midodrine before HD. During the dialysis treatment when I saw him today, he denied worsenign respiratory status, chest pain, palpitations, or change in his chronic cough. he was frustrated about the hospitalization and was threatening to sign out AMA. he is anuric. no recent missed treatments. no n/v/d. ongoing edema BLE R>L. Allergies Allergy/AdvReac Type Severity Reaction Status Date / Time lorazepam AdvReac Intermediate Hallucinati Verified 11/10/23 19:09 ng/Confusio n Home Medications Medication Instructions Recorded Confirmed Type venlafaxine 37.5 mg 37.5 mg PO DAILY 02/01/22 12/25/23 History capsule,extended release 24 hr (Effexor XR) nitroglycerin 0.4 mg sublingual 0.4 mg sublingual UD PRN Chest Pain 05/14/23 12/25/23 History tablet (Nitrostat) rosuvastatin 10 mg tablet 10 mg PO QAM 05/14/23 12/25/23 History buspirone 5 mg tablet 5 mg PO AMHS 08/26/23 12/25/23 History glycopyrrolate 9 mcg-formoterol 1 puff inhalation BID 08/26/23 12/25/23 History 4.8 mcg HFA aerosol inhaler (Bevespi Aerosphere) midodrine 5 mg tablet 10 mg PO 3XWK 08/26/23 12/25/23 History vitamin B complex-vitamin C-folic 1 tab PO 3XWK 08/26/23 12/25/23 History acid 0.8 mg tablet (Izzy-Vianney) apixaban 2.5 mg tablet (Eliquis) 2.5 mg PO BID #60 tabs 08/29/23 12/25/23 Rx ipratropium 0.5 mg-albuterol 3 mg 3 ml NEB Q4 PRN Wheezing 10/31/23 12/25/23 History (2.5 mg base)/3 mL nebulization soln calcium acetate(phosphat bind) 667 1,334 mg PO TIDWMEAL 11/10/23 12/25/23 History mg capsule lorazepam 0.5 mg tablet 0.5 mg PO DIRECTED 11/10/23 12/25/23 History albuterol sulfate 2.5 mg/3 mL 2.5 mg continuous nebulization Q6 12/25/23 12/25/23 History (0.083 %) solution for nebulization PRN Wheezing albuterol sulfate 90 mcg/actuation 2 puff inhalation Q4 PRN Wheezing 12/25/23 12/25/23 History aerosol inhaler metoprolol tartrate 25 mg tablet 25 mg PO BID 10/09/24 10/09/24 History Patient History Medical History Multifocal pneumonia History of DVT (deep vein thrombosis) Left renal mass Pneumonia due to COVID-19 virus Urinary frequency Hx of blood clots "IN MY LEGS AND 1 IN MY LUNGS A LONG TIME AGO">WAS ON BLOOD THINNERS, CAUSED BY PHLEBITIS History of COVID-19 02/02/22>STILL HAS FATIGUE Adjustment disorder with mixed disturbance of emotions and conduct History of basal cell carcinoma Carotid stenosis, right 50-69% stenosis to right ICA; <50% stenosis to left ICA per 06/22/21 carotid duplex History of stroke 2017 OR 2018 >NO RESIDUAL History of IL (myocardial infarction) 1998 MOLLY and COPD overlap syndrome WEARS 4L O2 AT HS Prediabetes PT DENIES Renal osteodystrophy Papillary renal cell carcinoma WITH MALIGNANCY>NO TREATMENT YET (CURRENT DX) Surgical History History of anesthesia reaction SLOW TO WAKE UP History of arthroscopy LEFT KNEE History of colonoscopy History of tooth extraction History of tonsillectomy History of cataract surgery RT/LEFT History of cholecystectomy History of appendectomy History of heart artery stent 1998>? # STENTS PLACED IN [facility] (FOLLWED BY DR[facility]) Family History Other Colorectal cancer No family history of adverse response to anesthesia Social History Smoking Status: Former smoker Second Hand Exposure: No; Do You Dip or Chew Tobacco: No; Hx Alcohol Use: No Hx Substance Use: No Preferred Language: Occitan Communication Ability: Effective Communication Tools: Other Die Presser Required: No Beliefs That Will Affect Care: None Current Living Situation: Spouse Feels Safe at Home: Yes Safety Concerns: Feels Safe At This Time Assistive Devices: Cane, Oxygen - Continuous and Walker Review of Systems 2 Review of Systems: All systems reviewed & are unremarkable except as noted in HPI & below Physical Exam 2 Constitutional: well developed and well nourished Eyes: EOM intact bilaterally ENMT: Mouth: + dry oral mucous membranes Respiratory: normal respiratory effort (on 02nc) and + cough (intermittent, thick, nonproductive) Auscultation: + wheezes Cardiovascular: Heart Sounds: normal S1 and normal S2 Extremities: + edema (1+ R>L) and + AV fistula Musculoskeletal: Extremities: strength 5/5 throughout Skin: no rashes, warm and dry Neurologic: iglesias, fluent speech, no tremor Results & Data Vital Signs (Past 12 Hours) Vital Signs Temp Pulse Pulse Pulse Resp BP Pulse Ox 12/26/23 07:40 36.2 C L 77 20 158/65 H 97 12/26/23 07:39 16 97 12/26/23 03:01 36.5 C 70 20 150/83 H 98 12/25/23 22:44 36.4 C L 99 H 18 116/75 92 12/25/23 22:41 139 H 12/25/23 21:03 36.6 C 88 20 118/87 97 12/25/23 21:00 36.6 C 88 19 118/87 95 O2 Del Method O2 Flow Rate 12/26/23 07:40 Nasal Cannula 3.5 12/26/23 07:39 Nasal Cannula 3.5 12/26/23 03:01 Nasal Cannula 4 12/25/23 22:44 Nasal Cannula 4 12/25/23 22:41 12/25/23 21:03 Nasal Cannula 4 12/25/23 21:00 Nasal Cannula 4 Laboratory Results 12/26/23 06:23 12/26/23 06:23 Diagnostic Findings cxr images reviewed personally by me > no e/o florid volume overload but mild vascular congestion
[2023-12-26] MEDS: LORazepam 0.5 MG TAB PO PRN (10:33)
--- NOTE | 2023-12-26 11:17 | Electrocardiogram Report ---
Test Reason : Blood Pressure : */* mmHG Vent. Rate : 151 BPM Atrial Rate : * BPM P-R Int : * ms QRS Dur : 132 ms QT Int : 332 ms P-R-T Axes : * -75 79 degrees QTcB Int : 526 ms Wide QRS tachycardia Right bundle branch block Left anterior fascicular block Bifascicular block Abnormal ECG When compared with ECG of 17-Dec-2023 12:18, Wide QRS tachycardia has replaced Atrial fibrillation Confirmed by Aureliano Carpio ([id number]) on 12/26/2023 11:17:40 AM Referred By: Mike Gooden Confirmed By: Aureliano Carpio
[2023-12-26] MEDS: MIDODRINE HCL 10 MG TAB PO PRN (11:25)
--- NOTE | 2023-12-26 11:28 | Electrocardiogram Report ---
Test Reason : Blood Pressure : */* mmHG Vent. Rate : 84 BPM Atrial Rate : 84 BPM P-R Int : * ms QRS Dur : 148 ms QT Int : 416 ms P-R-T Axes : * -68 38 degrees QTcB Int : 491 ms Probable Atrial flutter with variable A-V block Left axis deviation Right bundle branch block Abnormal ECG When compared with ECG of 25-Dec-2023 18:16, (unconfirmed) No significant change Confirmed by Aureliano Carpio ([id number]) on 12/26/2023 11:27:33 AM Referred By: Mike Gooden Confirmed By: Aureliano Carpio
[2023-12-26] MEDS: HEPARIN SOD (PORCINE) 1000 UNIT/ML IV ONE (11:35)
[2023-12-26] MEDS: HEPARIN SOD (PORCINE) 1000 UNIT/ML IV SCH (11:36)
--- OUTSIDE RECORDS SUMMARY | 2023-12-26 12:14 | External Medical Summary | Summary of Care ---
Author Name Unknown Organization [facility] Address [address] [place] [address] Phone [phone] Care Team Providers Care Neurosurgical Nurse Name Role Phone Jody Arora MD Primary Care Provide r Encounter Details Date Type Department Care Team (Late st Contact Info) Description 12/24/2023 Orders Only Family Medicine [address] [phone] Jody Arora MD [address] [place] [address] [place] [address] Allergies No known active allergiesdocumented as of this encounter (statuses as of 12/24/2023) Medications Medication Sig Dispensed Refills Start Date [...] Oral Tablet (Demadex)Indications :ESRD needing dialysis ([facility]) Take 4 Tablets by mouth [...] THE MORNING 90 Tablet 1 10/14/2023 Active busPIRone HCl 5 MG Oral Tablet (Buspar)Indications: Anxiety Take 1 Tablet by mouth in the morning and 1 Tablet before bedtime. 60 Tablet 5 11/11/2023 Active LORazepam 0.5 MG Oral Tablet (Ativan)Indications: Anxiety,ESRD on dialysis (HCC) 1 tablet 15-20 minutes before dialysis sessions 30 Tablet 12/11/2023 Active Hospital, Clinic, or Other Facility Administered Medication Ordered Dose Route Frequency Start Date End Date Status Albuterol Sulfate (Proventil) (5 MG/ML) 0.5% *conc* inhalation solution 2.5 mgIndications:Chronic hypoxemic respiratory failure (HCC),COPD, group C, by GOLD 2017 classification ([facility]),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) 2.5 mg NEBULIZER PRN 04/24/2023 04/23/2024 Active Albuterol Sulfate (Proventil) (2.5 MG/3ML) 0.083% inhalation solution 2.5 mgIndications:Chronic hypoxemic respiratory failure (HCC),COPD, group C, by GOLD 2017 classification ([facility]),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) 2.5 mg NEBULIZER PRN 04/24/2023 04/23/2024 Active documented as of this encounter (statuses as of 12/24/2023) Active Problems Problem Noted Date Diagnosed Date COPD, group D, by GOLD 2017 classification 04/29 Overview: Per COPD GOLD Classification [place]' pneumoconiosis 04/24/2023 Papillary renal cell carcinoma [...] lacunar stroke diagnosed on head CT in [place] Apr 2017. Follow up MRI [facility] no infarct. Anxiety 07/11/2017 HTN, goal below 140/90 08/02/2015 Coronary artery disease Dyslipidemia, goal LDL below 100 documented as of this encounter (statuses as of 12/24/2023) Resolved Problems Problem Noted Date Diagnosed Date [...] as of this encounter (statuses as of 12/24/2023) Immunizations Name Administration Dates Next Due COVID-19 [...] 65+ Yrs, IM (FLUAD) 12/02/2020 Seasonal Influenza Vac., MDV , IM, 0.5 mL (Fluzone) 12/16/2017 Seasonal Influenza Virus Vac cine, Unspecified Formulation 12/16/2018 Seasonal Influenza, PF, 6 M & above, IM , (FluLaval or Fluzone) 12/05/2020,12/22/2018,12/16/2016 Seasonal Influenza, Quadriva lent Hd (Fluzone Hd) 01/23/2023,12/07/2021 Seasonal Influenza, Quadriva lent Hd, 65+ Yrs 12/18/2019 Seasonal Influenza, Quadriva lent, No Preserve, IM 12/15/2014 Seasonal Influenza, Recombin ant, RIV4, PF, (Flublock) 12/22/2018 TDAP (age 10 and older)(Boostrix) 10/24/2018 Zoster [...] Care Team (Late st Contact Info) Description 12/25/2023 3:00 PM EDT Office Visit Cardiology, [facility] [address] [facility] [place] [address] Mike Gooden, DO [address] [facility] [place] [address] 12/30/2023 10:30 AM EDT Imaging Radiology [address] [place] [address] 02/10/2024 1:00 PM EST Imaging Radiology [facility] 1st Floor, [place] [facility] [place] [address] 02/25/2024 4:00 PM EST Office Visit Urology, [facility] [address] [facility] [place] [address] Cameron Romeo MD [address] [facility] [place] [address] 02/26/2024 1:40 PM EST Office Visit Family Medicine [address] [place] [phone] Jody Arora MD [address] [place] [address] [place] [id number] 05/11/2024 10:30 AM EST Office Visit Cardiology, [facility] [address] [facility] [place] [address] Augustin Mathis, DO [address] [facility] [place] [address] Health Maintenance Due Date Last Done Comments Alpha-1 Antitrypsin 1958 Adult Wellness Visit 2006 *COPD SEVERITY VERIFIED BY PFT 07/16/2020 COVID-19 Vaccine ( season) 2023 01/03/2023, 01/03/2023, 01/10/2021, Additional history exists Influenza Vaccine (FLU shot) [...] IN PAST YEAR FOR COPD 10/09/2024 10/10/2023 DTap/Tdap Vaccines (2 - Td or Tdap) 10/24/2028 [...] Priority Date/Time Associated Diagnosis Comments XR CHEST 1 VIEW Routine 11/10/2023 documented in this encounter Results * XR CHEST 1 VIEW (11/10/2023) Anatomical Region Laterality Modality Chest Other 11/10/2023 History Per Patient RADIOLOGY (RAD GENER AL) documented in this encounter Care Teams Neurosurgical Nurse Relationship Specialty Start Date End Date Sellathurai, Thiviyanath, MD [address] [place] [address] [place] [address] PCP - General Family Medicine 11/21/21 documented as of this encounter
--- OUTSIDE RECORDS SUMMARY | 2023-12-26 12:14 | External Medical Summary | Summary of Care ---
Author Name Unknown Organization [facility] Address [address] [place] [facility] [place] [address] Phone [phone] Care Team Providers Care Furniture Technician Name Role Phone Jody Arora MD Primary Care Provide r Reason for Visit * Reason Onset Date Comments Advice 12/25/2023 Encounter Details Date Type Department Care Team (Late st Contact Info) Description 12/25/2023 Telephone Family [address] [place] [address] Jody Arora MD [address] [place] [address] [place] [address] Advice Allergies No known active allergiesdocumented as of this encounter (statuses as of 12/25/2023) Medications Medication Sig Dispensed Refills Start Date [...] (HCC),COPD, group C, by GOLD 2017 classification (HCC),[place]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) 2.5 mg NEBULIZER PRN 04/24/2023 04/23/2024 Active Albuterol Sulfate (Proventil) (2.5 MG/3ML) 0.083% inhalation solution 2.5 mgIndications:Chronic hypoxemic respiratory failure (HCC),COPD, group C, by GOLD 2017 classification (HCC),[place]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) 2.5 mg NEBULIZER PRN 04/24/2023 04/23/2024 Active documented as of this encounter (statuses as of 12/25/2023) Active Problems Problem Noted Date Diagnosed Date COPD, group D, by GOLD 2017 classification 04/29 Overview: Per COPD GOLD Classification [place] miners' pneumoconiosis 04/24/2023 Papillary renal cell carcinoma [...] lacunar stroke diagnosed on head CT in [place] Apr 2017. Follow up MRI [facility] no infarct. Anxiety 07/11/2017 HTN, goal below 140/90 08/02/2015 Coronary artery disease Dyslipidemia, goal LDL below 100 documented as of this encounter (statuses as of 12/25/2023) Resolved Problems Problem Noted Date Diagnosed Date [...] as of this encounter (statuses as of 12/25/2023) Immunizations Name Administration Dates Next Due COVID-19 [...] Telephone Encounter - Tigist Connor LPN - 12/25/2023 9:27 AM EDT Laila from Dr. Gonzalez's [facility] Podiatry office is calling. Is requesting that a med list is faxed to their office at [phone]. Med list was faxed and confirmation was received. * Telephone Encounter - Janice Mejia OSA - 12/25/2023 9:24 AM EDT Reason for patient's call: medication list Caller was transferred to [facility] at the nurse line. documented in this encounter Plan of Treatment Upcoming Encounters Date Type Department Care Team (Late st Contact Info) Description 12/25/2023 3:00 PM EDT Office Visit Cardiology, [facility] [address] [place] [address] [address] Mike Gooden, [address] [place] [address] 12/30/2023 10:30 AM EDT Imaging Radiology [address] [place] [address] 02/10/2024 1:00 PM EST Imaging Radiology [address] [place] [address] 02/25/2024 4:00 PM EST Office Visit Urology, [facility] [address] [place] [address] Cameron Romeo MD [address] [place] [address] 02/26/2024 1:40 PM EST Office Visit Family Medicine [address] [place] [phone] Jody Arora MD [address] [place] [address] [place] [address] 05/11/2024 10:30 AM EST Office Visit Cardiology, [facility] [address] [place] [address] Augustin Mathis, [address] [place] [address] Health Maintenance Due Date Last Done Comments [...] filedocumented as of this encounter Care Teams Furniture Technician Relationship Specialty Start Date End Date Jody Arora MD [address] [place] [address] [place] [address] PCP - General Family Medicine 11/21/21 documented as of this encounter
--- OUTSIDE RECORDS SUMMARY | 2023-12-26 12:14 | External Medical Summary | Summary of Care ---
Author Name Unknown Organization [facility] Address [address] [place] [address] Phone [phone] Care Team Providers Care Operator Assistant I Cementing Name Role Phone Jody Arora MD Primary Care Provide r Encounter Details Date Type Department Care Team (Late st Contact Info) Description 12/24/2023 Orders Only Family Medicine [address] [phone] Jody Arora MD [address] [place] [address] [place] [address] Allergies No known active allergiesdocumented as [...] 2017 classification ([facility]) INHALE 1 DOSE BY MOUTH IN THE MORNING AND 1 AT BEDTIME 60 Each 05/28/2023 Active Additional Information Patient not taking.Reported on 10/10/2023 Ventolin HFA 108 (90 Base) MCG/ACT Inhalation Aerosol SolutionIndications: COPD, group D, by GOLD 2017 classification ([facility]) Inhale 2 Puffs by mouth every 4 hours as needed for Wheezing. 18 g 2 05/28/2023 Active Torsemide 20 MG Oral Tablet (Demadex)Indications :ESRD needing dialysis ([facility]) Take 4 Tablets by mouth 2 [...] GOLD 2017 classification ([facility]),[place]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) 2.5 mg NEBULIZER PRN 04/24/2023 04/23/2024 Active Albuterol Sulfate (Proventil) (2.5 MG/3ML) 0.083% inhalation solution 2.5 mgIndications:Chronic hypoxemic respiratory failure (HCC),COPD, group C, by GOLD 2017 classification ([facility]),[place]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) 2.5 mg NEBULIZER PRN 04/24/2023 04/23/2024 Active documented as of this encounter (statuses as of 12/24/2023) Active Problems Problem Noted Date Diagnosed Date COPD, group D, by GOLD 2017 classification 04/29 Overview: Per COPD GOLD Classification [place] 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 Follow up MRI [facility] [address] no infarct. Anxiety 07/11/2017 HTN, goal below [...] 12/25/2023 3:00 PM EDT Office Visit Cardiology, [facility] [address] [facility] [place] [address] Mike Gooden, DO [address] [facility] [place] [address] 12/30/2023 10:30 AM EDT Imaging Radiology [address] [place] [address] 02/10/2024 1:00 PM EST Imaging Radiology [facility] 1st Floor, [place] [address] [facility] [place] [address] 02/25/2024 4:00 PM EST Office Visit Urology, [facility] [address] [facility] [place] [address] Cameron Romeo MD [address] [facility] [place] [address] 02/26/2024 1:40 PM EST Office Visit Family Medicine [address] [place] [phone] Jody Arora MD [address] [place] [address] [place] [address] 05/11/2024 10:30 AM EST Office Visit Cardiology, [facility] 132 [facility] [place] [address] Augustin Mathis, DO [address] [facility] [place] [address] Health Maintenance Due Date Last Done Comments [...] Diagnosis Comments XR CHEST 1 VIEW Routine 12/17/2023 documented in this encounter Results * XR CHEST 1 VIEW (12/17/2023) Anatomical Region Laterality Modality Chest Other 12/17/2023 History Per Patient RADIOLOGY (RAD GENER AL) documented in this encounter Care Teams Operator Assistant I Cementing Relationship Specialty Start Date End Date Sellathurai, Thiviyanath, MD [address] [place] [address] [place] [address] PCP - General Family Medicine 11/21/21 documented as of this encounter
--- OUTSIDE RECORDS SUMMARY | 2023-12-26 12:14 | External Medical Summary | Summary of Care ---
Author Name Unknown Organization [facility] Address [address] [place] [address] Phone [phone] Care Team Providers Care Horticulture/Floriculture Teacher Name Role Phone Jody Arora MD Primary Care Provide r Encounter Details Date Type Department Care Team (Late st Contact Info) Description 11/10/2023 Result Scan Unspecified Department <No scans attached> [...] Tablet (Demadex)Indications :ESRD needing dialysis ([facility]) Take 4 Tablets by mouth 2 [...] (HCC),COPD, group C, by GOLD 2017 classification (HCC),[place]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) 2.5 mg NEBULIZER PRN 04/24/2023 04/23/2024 Active Albuterol Sulfate (Proventil) (2.5 MG/3ML) 0.083% inhalation solution 2.5 mgIndications:Chronic hypoxemic respiratory failure (HCC),COPD, group C, by GOLD 2017 classification (HCC),[place]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) 2.5 mg NEBULIZER PRN 04/24/2023 04/23/2024 Active documented as of this encounter (statuses as of 12/24/2023) Active Problems Problem Noted Date Diagnosed Date COPD, group D, by GOLD 2017 classification 04/29 Overview: Per COPD GOLD Classification [place] 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 States he was advised he was not a surgical candidate. Carotid stenosis, right 07/11/2017 History of stroke 07/11/2017 Overview: TIA vs lacunar stroke diagnosed on head CT in [place] Apr 2017. Follow [facility] [...] No 05/20/2023 Does the household have a [facility] source of income? (Household - for ages [...] 12/25/2023 3:00 PM EDT Office Visit Cardiology, [facility] [address] [place] [address] Mike Gooden O, DO [address] [place] [address] 12/30/2023 10:30 AM EDT Imaging Radiology [address] [place] [address] 02/10/2024 1:00 PM EST Imaging Radiology [address] [place] [address] 02/25/2024 4:00 PM EST Office Visit Urology, [facility] [address] [place] [address] Cameron Romeo MD [address] [place] [address] 02/26/2024 1:40 PM EST Office Visit Family [address] [place] [address] Jody Arora MD [address] [place] [address] [place] [address] 05/11/2024 10:30 AM EST Office Visit Cardiology, [facility] [address] [place] [address] Augustin Mathis, [address] [place] [address] Health Maintenance Due Date Last Done Comments [...] Nephrology Referral 07/14/2024 07/15/2023 Hgb 08/27/2024 08/28/2023, 0406/2023, 02/25/2023, Additional history exists O2 ASSESSMENT COMPLETED [...] Date/Time Associated Diagnosis Comments RADIOLOGY SCANNED RESULT 11/10/2023 documented in this encounter Results * RADIOLOGY SCANNED RESULT (11/10/2023) 11/10/2023 No Physician Data Unknown DIAGNOSTIC RAD IOLOGY SERVICES documented in this encounter Care Teams Horticulture/Floriculture Teacher Relationship Specialty Start Date End Date Jody Arora MD [address] [place] [address] [place] [address] PCP - General Family Medicine 11/21/21 documented as of this encounter
--- NOTE | 2023-12-26 13:58 | Cardiology Progress Note ---
Date of Service December 26, 2023 Assessment & Plan (1) Atrial fibrillation with RVR: (2) COPD with exacerbation: (3) End-stage renal disease (ESRD): Plan: * Patient improved with treatment for acute exacerbation for COPD and I would endorse ongoing treatment with IV corticosteroids, inhaled bronchodilators, and doxycycline for now as I do not think it was the low-dose metoprolol alone that helped improved his rate. Less wheezing definitely noted today but not has not resolved, normal to expect complete resolve given his history of COPD, on 4 L nasal cannula oxygen supplementation on a chronic basis at home. * Continue Eliquis 2.5 mg twice daily * Agree with inhaled bronchodilators and IV corticosteroids. * Resume metoprolol, start tartrate 12.5 mg PO QID with holds. Patient received a dose last night at 2100, but did not actually received his dose this morning in advance of dialysis and his heart rate was still well-controlled. * At last discharge he was sent home on 50 mg of metoprolol succinate twice daily which was subsequently titrated down to 25 mg twice daily due to hypotension at time of dialysis * Perhaps it would be prudent to consider reinitiating 50 mg of metoprolol succinate twice daily with plans to hold the dose on the mornings of his dialysis sessions and just take 25 mg 1 time per day in the evening on dialysis days. * He would therefore been on metoprolol succinate 50 mg twice daily on nondialysis days. He receives dialysis at [facility]. * Patient needs to contact his daughter for transportation home, anticipate need to stay in the hospital until at least 12/27/2023. Admission and Anticipated Discharge Date Admission Date: December 25, 2023 Subjective Patient seen in cardiology follow-up. He was in the inpatient dialysis unit during my assessment, and dialysis was just about to begin. His systolic blood pressure was 154 bpm and heart rate was in the 70s, rate controlled atrial flutter on review of telemetry. Subjectively, patient states he feels much improved. Physical Exam Physical Exam: General: Chronically ill in appearance without acute distress Eyes: conjunctiva are pink and non-injected, sclera clear Neck: normal jugular venous pulse, no hepatojugular reflux Chest: normal shape and normal respiratory effort Lungs: Ongoing inspiratory wheezing noted bilaterally apices, but improved compared to 12/25/2023 Cardiac Exam: - Tachycardic, no murmurs, 1+ bilateral lower extremity edema Abdomen: abdomen soft, non-tender, no abnormal masses and no hepatosplenomegaly Neuro:awake, conversant, follows commands, no focal motor deficits Results & Data Vital Signs (Past 12 Hours) Vital Signs Temp Pulse Pulse Pulse Resp BP BP 12/26/23 13:30 80 127/67 12/26/23 13:00 76 131/61 12/26/23 12:30 77 140/61 12/26/23 12:05 71 12/26/23 12:00 75 136/67 12/26/23 11:30 73 127/64 12/26/23 11:15 70 134/68 12/26/23 10:52 36.5 C 70 12/26/23 07:40 36.2 C L 77 20 158/65 H 12/26/23 07:39 16 12/26/23 03:01 36.5 C 70 20 150/83 H Pulse Ox O2 Del Method O2 Flow Rate 12/26/23 13:30 12/26/23 13:00 12/26/23 12:30 12/26/23 12:05 12/26/23 12:00 12/26/23 11:30 12/26/23 11:15 12/26/23 10:52 12/26/23 07:40 97 Nasal Cannula 3.5 12/26/23 07:39 97 Nasal Cannula 3.5 12/26/23 03:01 98 Nasal Cannula 4 Diagnostic Findings EKG performed 12/26/2023 at 5:07 AM and interpret independently: Atrial flutter at 84 bpm with right bundle branch block, left anterior fascicular block.
[2023-12-26 15:14] LABS: A calco-baum cmplx NotReported Not Detected (NotDetected); Bact fragilis Not Reported Not Detected (NotDetected); Blood Culture Id Panel See PCR Comment (NotDetected); C auris Not Reported Not Detected (NotDetected); Calbicans Not Reported Not Detected (NotDetected); Candida glabrata Not Reported Not Detected (NotDetected); Candida krusei Not Reported Not Detected (NotDetected); Cneoformans/gatti Not Reported Not Detected (NotDetected); Cparapsilosis Not Reported Not Detected (NotDetected); E cloacae compx Not Reported Not Detected (NotDetected); Efaecalis Not Reported Not Detected (NotDetected); Efaecium Not Reported Not Detected (NotDetected); Enterobacterales Not Reported Not Detected (NotDetected); Escherichia coli Not Reported Not Detected (NotDetected); H influenzae Not Reported Not Detected (NotDetected); K aerogenes Not Reported Not Detected (NotDetected); Koxytoca Not Reported Not Detected (NotDetected); Kpneumoniae grp Not Reported Not Detected (NotDetected); Lmonocyt Not Reported Not Detected (NotDetected); N meningitidis Not Reported Not Detected (NotDetected); P aeruginosa Not Reported Not Detected (NotDetected); Proteus spp Not Reported Not Detected (NotDetected); Salmonella spp Not Reported Not Detected (NotDetected); Staph lugdunensis Not Reported Not Detected (NotDetected); Staph spp. Not Reported DETECTED (NotDetected); Staphaureus Not Reported Not Detected (NotDetected); Staphepi Not Reported DETECTED (NotDetected); Staphylococcus spp. DETECTED (NotDetected); Stenmaltophilia Not Reported Not Detected (NotDetected); Strep agal(GrpB) Not Reported Not Detected (NotDetected); Strep pneum Not Reported Not Detected (NotDetected); Strep pyog (GrpA) Not Reported Not Detected (NotDetected); Strep spp Not Reported Not Detected (NotDetected); mecAC Resistant Gene Not Detected (NotDetected)
[2023-12-26 15:17] LABS: Staphylococcus epidermidis DETECTED (NotDetected)
--- NOTE | 2023-12-26 17:24 | Dialysis Progress Note ---
Date of Service December 26, 2023 Assessment & Plan (1) Hyperkalemia: Plan: for treatment by 11 AM on 2K bath for K 6.6 this am -daily bmp -dialysis diet >>? role for recirculation or other suboptimal dialysis w/ AVF issues -may well need at least 2 hr tx on 12/27 (2) AV fistula: Plan: some issues w/ AV fistula cannulation last week as OP >> stuck x 5 last weekend; venous pressures quite elevated on tx today and needles quite close to one another >> neph nurse to try more distal/lower AVF limb next tx (3) End-stage renal disease (ESRD): Plan: chronic volume overload in setting of progressive restrictive lung disease, chronic hypoxic resp failure and now atrial fibrillation -as aggressive UF as tolerated -routine treatment today (as much as he will allow) > plan for extra tx tomorrow to optimize volume status -continue low dose midodrine w/ HD (4) Anemia of chronic renal failure: Plan: transfusion dependent; no ASHLI d/t active renal cell CA; hgb 9.0; no indication for transfusion today (5) Atrial fibrillation with RVR: Plan: per cardiology/ primary service; appreciate beta harish recommendations Admission and Anticipated Discharge Date Admission Date: December 25, 2023 Subjective seen during dialysis treatment at noon. tolerating reasonably well but announcing already he won't stay full tx. no worsening sob or cough Review of Systems 2 Review of Systems: All systems reviewed & are unremarkable except as noted in Subjective Physical Exam 2 Constitutional: well developed, well nourished and + ill appearing (ashen complected, tired); no acute distress Eyes: EOM intact bilaterally ENMT: Mouth: + dry oral mucous membranes Respiratory: normal respiratory effort (on 02nc) and + cough (intermittent, thick, nonproductive) Auscultation: + wheezes Cardiovascular: Heart Sounds: normal S1 and normal S2 Extremities: + edema (1+ R>L) and + AV fistula Musculoskeletal: Extremities: strength 5/5 throughout Skin: no rashes, warm and dry Results & Data Vital Signs (Past 12 Hours) Vital Signs Temp Pulse Pulse Pulse Resp BP BP 12/26/23 16:13 36.4 C L 74 20 130/61 12/26/23 16:09 68 21 12/26/23 14:13 36.5 C 75 20 135/61 12/26/23 14:10 36.4 C L 78 131/69 12/26/23 13:30 80 127/67 12/26/23 13:00 76 131/61 12/26/23 12:30 77 140/61 12/26/23 12:05 71 12/26/23 12:00 75 136/67 12/26/23 11:30 73 127/64 12/26/23 11:15 70 134/68 12/26/23 10:58 12/26/23 10:52 36.5 C 70 12/26/23 07:40 36.2 C L 77 20 158/65 H 12/26/23 07:39 16 Pulse Ox O2 Del Method O2 Flow Rate 12/26/23 16:13 95 Nasal Cannula 4.0 12/26/23 16:09 94 Nasal Cannula 5 12/26/23 14:13 96 Nasal Cannula 4.0 12/26/23 14:10 12/26/23 13:30 12/26/23 13:00 12/26/23 12:30 12/26/23 12:05 12/26/23 12:00 12/26/23 11:30 12/26/23 11:15 12/26/23 10:58 Nasal Cannula 3 12/26/23 10:52 12/26/23 07:40 97 Nasal Cannula 3.5 12/26/23 07:39 97 Nasal Cannula 3.5 Laboratory Results 12/26/23 06:23 12/26/23 06:23
[2023-12-26] MEDS: AMPICILLIN/SULBACTAM SOD 3,000 MG/100 ML BAG IV SCH (17:29)
[2023-12-26] MEDS: BUDESONIDE 0.5 MG/2 ML VIAL (PULMICORT) NEB SCH (19:19)
[2023-12-26] MEDS: FORMOTEROL 20 MCG/2 ML VIAL NEB SCH (19:19)
[2023-12-26] MEDS: guaiFENesin 600 MG TABCR PO SCH (21:16)
[2023-12-27 07:20] LABS: Mean Corpuscular Hemoglobin 27.8 pg (25.0-34.0); Mean Corpuscular Volume 92.6 fL (80.0-100.0); Mean Platelet Volume 10.9 fL (9.4-12.4); Platelet Count 139 K/uL (130-400); RDW Coefficient of Variation 16.8 % (11.5-14.5); RDW Standard Deviation 56.1 fL (36.4-46.3); Red Blood Count 3.24 M/uL (4.70-6.10); White Blood Count 12.58 K/ul (4.8-10.8)
[2023-12-27 07:32] LABS: BUN Creatinine Ratio 10.6 (10-20); Calcium 8.5 mg/dl (8.6-10.3); Creatinine Clr Calc Pharmacy 7.9 ml/min; Magnesium 2.2 mg/dl (1.7-2.4); Phosphorus 7.4 mg/dl (2.5-4.9); Potassium 6.3 mmol/L (3.5-5.1)
[2023-12-27] MEDS ORDERED: SODIUM CHLORIDE 0.9% 1,000 ML IV PRN ×2 (08:13→19:48)
[2023-12-27] MEDS: HEPARIN SOD (PORCINE) 1000 UNIT/ML IV SCH (09:49)
[2023-12-27] MEDS: HEPARIN SOD (PORCINE) 1000 UNIT/ML IV ONE (09:49)
[2023-12-27] MEDS: ACETAMINOPHEN 325 MG TAB PO PRN (11:14)
[2023-12-27] MEDS: METOPROLOL TARTRATE 25 MG TAB PO SCH (12:23)
--- NOTE | 2023-12-27 14:01 | Cardiology Progress Note ---
Date of Service December 27, 2023 Assessment & Plan (1) Atrial fibrillation with RVR: Plan: Atrial fibrillation / atrial flutter (2) Bifascicular bundle branch block: (3) COPD with exacerbation: (4) End-stage renal disease (ESRD): Plan: * Dialysis had to be stopped today due to onset of tachycardia in 130-150s and low BP . * Received metoprolol tartrate 12.5 mg and midodrine 10 mg before HD * Will increase metoprolol tartrate to 25 mg QID * Proceed with trial of short acting diltiazem 30 mg one daily to start. * Start midodrine 2.5 mg TID. * Eliquis 2.5 mg BID for stroke prevention. * Need to come up with a treatment plan that allows for adequate HR and BP for dialysis. * Case reviewed with Dr Patel and Dr Matthew for the purpose of coordination of care. Admission and Anticipated Discharge Date Admission Date: December 25, 2023 Subjective Mr Pinedo is seen in cardiology followup. Denies chest pain, resting SOB, or subjective palpitations. He is frustrated. Telemetry reveals atrial flutter with rate of 130 bpm with RBBB morphology Physical Exam Physical Exam: General: Chronically ill in appearance without acute distress Eyes: conjunctiva are pink and non-injected, sclera clear Neck: normal jugular venous pulse, no hepatojugular reflux Chest: normal shape and normal respiratory effort Lungs: Ongoing inspiratory wheezing noted bilaterally apices, but improved compared to 12/25/2023 Cardiac Exam: - Tachycardic, no murmurs, 1+ bilateral lower extremity edema Abdomen: abdomen soft, non-tender, no abnormal masses and no hepatosplenomegaly Neuro:awake, conversant, follows commands, no focal motor deficits Results & Data Vital Signs (Past 12 Hours) Vital Signs Temp Pulse Pulse Pulse Pulse Resp BP 12/27/23 12:00 12/27/23 10:40 36.3 C L 135 H 12/27/23 10:15 130 H 85/66 L 12/27/23 10:06 142 H 102/64 12/27/23 10:00 142 H 85/50 L 12/27/23 09:39 76 132/73 12/27/23 09:17 36.5 C 72 12/27/23 08:00 71 12/27/23 07:52 36.3 C L 72 19 12/27/23 07:24 72 12/27/23 02:40 36.4 C L 88 18 BP Pulse Ox O2 Del Method O2 Flow Rate 12/27/23 12:00 Nasal Cannula 4 12/27/23 10:40 108/74 12/27/23 10:15 12/27/23 10:06 12/27/23 10:00 12/27/23 09:39 12/27/23 09:17 12/27/23 08:00 12/27/23 07:52 131/63 95 Nasal Cannula 4 12/27/23 07:24 97 Nasal Cannula 4 12/27/23 02:40 131/101 H 96 Nasal Cannula 4 Laboratory Results CBC 12/27/23 Range/Units 06:25 WBC 12.58 H (4.8-10.8) K/ul RBC 3.24 L (4.70-6.10) M/uL Hgb 9.0 L (14.0-18.0) g/dl Hct 30.0 L (42.0-52.0) % Plt Count 139 (130-400) K/uL Comprehensive Metabolic Panel 12/27/23 Range/Units 06:25 Sodium 134 L (136-145) mmol/L Potassium 6.3 H* (3.5-5.1) mmol/L Chloride 96 L (98-107) mmol/L Carbon Dioxide 24 (21-32) mmol/L BUN 77 H (6-23) mg/dl Creatinine 7.24 H* D (0.6-1.4) mg/dl Glucose 169 H (70-99(Fasting)) mg/dl Calcium 8.5 L (8.6-10.3) mg/dl Intake and Output 12/26/23 12/27/23 12/27/23 22:59 06:59 14:59 Intake Total 100 / 780 320 / 780 Balance 100 / 780 320 / 780 Intake: IV 100 / 300 200 / 300 Ampicillin/Sulbactam Sod 3,000 100 / 300 200 / 300 mg In 100 ml @ 200 mls/hr IV Q6H [facility] Rx#:[id number] Oral 120 / 480 Other: Hemodialysis Ultrafiltration 0 Amount Weight 92.1 kg 91.8 kg 91.8 kg Weight Measurement Method Standing Scale Patient Weight 12/28/23 06:59 Weight 91.8 kg
--- NOTE | 2023-12-27 14:14 | Electrocardiogram Report ---
Test Reason : Blood Pressure : */* mmHG Vent. Rate : 85 BPM Atrial Rate : 312 BPM P-R Int : * ms QRS Dur : 132 ms QT Int : 400 ms P-R-T Axes : 267 -70 56 degrees QTcB Int : 476 ms Atrial flutter with variable A-V block Right bundle branch block Left anterior fascicular block Bifascicular block Abnormal ECG When compared with ECG of 25-Dec-2023 16:50, Atrial flutter has replaced Wide QRS tachycardia Vent. rate has decreased by 66 bpm Confirmed by Aureliano Carpio ([id number]) on 12/27/2023 2:14:02 PM Referred By: Mike Gooden Confirmed By: Aureliano Carpio
--- NOTE | 2023-12-27 15:11 | Hospitalist Progress Note ---
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 Per daughter, patient went to Cardiology appointment without his oxygen therapy, likely precipitated a fib/flutter RVR and exacerbation as he was last well known that morning Patient initially improved with 12.5mg metoprolol qid however, complicated by intradialytic hemodynamic instability. On 12/26, patient back into rates of 130- 150s. Cardiology following closely with implementation of regimen to aid in holding bp stable while addressing hr. Patient poor candidate for antiarrhythmic (amiodarone) therapies given multiple complex comordbities. #Positive blood culture / positive at this time with staph epi. likely contaminate CTM #Atrial fibrillation/flutter with RVR #Liable blood pressure suspect likely in relation to noncompliance with Oxygen (daughter reports patient presented to cardiology appointment with out O2) rapid rates s/p HD on 12/26 Cardiology consulted, reviewed recommendations Started on metoprolol 12.5mg qid--increased to 25mg qid Started on midodrine 2.5mg TID Started on diltiazem 30mg daily -Continue low does eliquis Continue to monitor on tele #Acute COPD exacerbation #Acute on chronic hypoxemic resp failure, on 4L baseline Reported increased cough since yesterday with some yellow sputum, noncompliant with o2 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 commuting 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 [employer] respiratory panel negative/ CXR without infiltrate Now at baseline, procal 0.74, mrsa neg continue doxycycline at this time Continue IV solumedrol, mucinex, flutter valve continue bronchodilator, nebs prn #Pressure injury of buttock, stage 1: Wound nurse consult: resolved # End-stage renal disease (ESRD): #Anemia of chronic renal failure: On HD on [facility] Sat Nephrology consult for assistance in HD and volume status Continue home renal vitamins Continue midodrine prior to HD H&H stable #Dyslipidemia: Continue atorvastatin #Coronary artery disease: S/P Stent Denies CP Continue atorvastatin #History of DVT (deep vein thrombosis): Continue Eliquis DVT eliquis dispo contingent on HR control Admission and Anticipated Discharge Date Admission Date: December 25, 2023 Subjective Patient with planned HD today, however, terminated early 2/2 hemodynamic instability marked by hypotension and tachycardia into 150s Patient states he feels "rough," mostly due to headache. Physical Exam Constitutional: WD/WN, vitals as above Respiratory: diffuse rhonchi, though better than prior exam Cardiovascular: tachycardic Results & Data Results & Data Vital Signs (Past 12 Hours) Vital Signs Temp Pulse Pulse Pulse Resp BP BP 12/27/23 12:00 12/27/23 10:40 36.3 C L 135 H 108/74 12/27/23 10:15 130 H 85/66 L 12/27/23 10:06 142 H 102/64 12/27/23 10:00 142 H 85/50 L 12/27/23 09:39 76 132/73 12/27/23 09:17 36.5 C 72 12/27/23 08:00 71 12/27/23 07:52 36.3 C L 72 19 131/63 12/27/23 07:24 72 Pulse Ox O2 Del Method O2 Flow Rate 12/27/23 12:00 Nasal Cannula 4 12/27/23 10:40 12/27/23 10:15 12/27/23 10:06 12/27/23 10:00 12/27/23 09:39 12/27/23 09:17 12/27/23 08:00 12/27/23 07:52 95 Nasal Cannula 4 12/27/23 07:24 97 Nasal Cannula 4 Laboratory Results Short CBC 12/27/23 Range/Units 06:25 WBC 12.58 H (4.8-10.8) K/ul Hgb 9.0 L (14.0-18.0) g/dl Hct 30.0 L (42.0-52.0) % Plt Count 139 (130-400) K/uL BMP 12/27/23 06:25 Sodium 134 L Potassium 6.3 H* Chloride 96 L Carbon Dioxide 24 BUN 77 H Creatinine 7.24 H* D Glucose 169 H Calcium 8.5 L Medications Administered Home Medications Medication Instructions Recorded Confirmed Last Taken venlafaxine 37.5 mg 37.5 mg PO DAILY 02/01/22 12/25/23 10/31/23 capsule,extended release 24 hr (Effexor XR) nitroglycerin 0.4 mg sublingual 0.4 mg sublingual UD PRN Chest Pain 05/14/23 12/25/23 Unknown tablet (Nitrostat) rosuvastatin 10 mg tablet 10 mg PO QAM 05/14/23 12/25/23 10/31/23 buspirone 5 mg tablet 5 mg PO AMHS 08/26/23 12/25/23 10/31/23 glycopyrrolate 9 mcg-formoterol 1 puff inhalation BID 08/26/23 12/25/23 10/31/23 4.8 mcg HFA aerosol inhaler (Bevespi Aerosphere) midodrine 5 mg tablet 10 mg PO 3XWK 08/26/23 12/25/23 Unknown vitamin B complex-vitamin C-folic 1 tab PO 3XWK 08/26/23 12/25/23 Unknown acid 0.8 mg tablet (Izzy-Vianney) apixaban 2.5 mg tablet (Eliquis) 2.5 mg PO BID #60 tabs 08/29/23 12/25/23 11/10/23 09:00 ipratropium 0.5 mg-albuterol 3 mg 3 ml NEB Q4 PRN Wheezing 10/31/23 12/25/23 Unknown (2.5 mg base)/3 mL nebulization soln calcium acetate(phosphat bind) 667 1,334 mg PO TIDWMEAL 11/10/23 12/25/23 Unknown mg capsule lorazepam 0.5 mg tablet 0.5 mg PO DIRECTED 11/10/23 12/25/23 Unknown albuterol sulfate 2.5 mg/3 mL 2.5 mg continuous nebulization Q6 12/25/23 12/25/23 Unknown (0.083 %) solution for nebulization PRN Wheezing albuterol sulfate 90 mcg/actuation 2 puff inhalation Q4 PRN Wheezing 12/25/23 12/25/23 Unknown aerosol inhaler metoprolol tartrate 25 mg tablet 25 mg PO BID 12/25/23 12/25/23 12/25/23 Active Medications Generic Name Dose Route Start Last Admin Trade Name Freq PRN Reason Stop Dose Admin Acetaminophen 650 mg 12/25/23 20:40 12/27/23 11:14 Acetaminophen 325 Mg Tab PO 01/24/24 20:39 650 mg Q4H PRN Administration Pain or Fever Apixaban 2.5 mg 12/25/23 21:00 12/27/23 11:20 Apixaban 2.5 Mg Tab PO 01/24/24 20:59 2.5 mg BID MARCOS Administration Budesonide 0.5 mg 12/26/23 19:00 12/27/23 07:21 Budesonide 0.5 Mg/2 Ml Vial (Pulmicort) NEB 01/25/24 18:59 0.5 mg BIDR MARCOS Administration Buspirone HCl 5 mg 12/25/23 21:00 12/27/23 11:19 Buspirone 5 Mg Tab PO 01/24/24 20:59 5 mg AMHS MARCOS Administration Calcium Acetate 1,334 mg 12/25/23 20:40 12/27/23 12:22 Calcium Acetate 667 Mg Cap/Tab PO 01/24/24 20:39 1,334 mg TIDM MARCOS Administration Formoterol Fumarate 20 mcg 12/26/23 16:55 12/27/23 07:21 Formoterol 20 Mcg/2 Ml Vial NEB 01/25/24 16:54 20 mcg BIDR MARCOS Administration Guaifenesin 600 mg 12/26/23 21:00 12/27/23 11:22 Guaifenesin 600 Mg Tabcr PO 01/25/24 20:59 600 mg Q12 MARCOS Administration Methylprednisolone 40 mg/ 0.64 mls @ 1.5 mls/min 12/26/23 17:00 12/27/23 05:37 Syringe IV 01/25/24 16:59 1.5 mls/min Q8 MARCOS Administration Levalbuterol HCl 0.63 mg 12/25/23 20:40 12/27/23 00:45 Levalbuterol Hcl 0.63 Mg/3 Ml Neb NEB 01/24/24 20:39 0.63 mg Q6R PRN Administration Shortness Of Breath Or Wheezing Protocol Lorazepam 0.5 mg 12/25/23 20:40 12/27/23 08:33 Lorazepam 0.5 Mg Tab PO 01/24/24 20:39 0.5 mg DAILY PRN Administration 15-20 mins Before Dialysis Metoprolol Tartrate 25 mg 12/27/23 13:00 12/27/23 12:23 Metoprolol Tartrate 25 Mg Tab PO 01/26/24 12:59 25 mg QID MARCOS Administration Midodrine 10 mg 12/25/23 20:40 12/27/23 08:36 Midodrine Hcl 10 Mg Tab PO 01/24/24 20:39 10 mg DAILY PRN Administration Take before dialysis Rosuvastatin Calcium 10 mg 12/26/23 09:00 12/27/23 11:19 Rosuvastatin Calcium 10 Mg Tab PO 01/25/24 08:59 10 mg QAM MARCOS Administration Umeclidinium/Vilanterol 1 puffs 12/26/23 07:00 12/27/23 08:27 Umeclidinium/Vilanterol 62.5/25mcg 7 Puffs/Inhaler INH 01/25/24 06:59 1 puffs BIDR MARCOS Administration Protocol Venlafaxine HCl 37.5 mg 12/26/23 09:00 12/27/23 11:21 Venlafaxine Hcl Xr 37.5 Mg Capxr PO 01/25/24 08:59 37.5 mg DAILY MARCOS Administration
[2023-12-27] MEDS: dilTIAZem HCL 30 MG TAB PO ONE (16:44)
[2023-12-27] MEDS: AMOXICILLIN/CLAVULANATE 500 MG TAB PO SCH (16:46)
[2023-12-27] MEDS: SODIUM ZIRCONIUM CYCLOSILICATE 10 GM PACKET PO SCH (17:08)
[2023-12-27] MEDS: MIDODRINE HCL 2.5 MG TAB PO SCH (17:10)
--- NOTE | 2023-12-27 20:04 | Dialysis Progress Note ---
Date of Service December 27, 2023 Assessment & Plan (1) Hyperkalemia: Plan: K 6.6 on admission and ran but w/ needles close together and high venous pressures > concern for AVF issue including stenosis or/and recirculation. K 6.3 this am. -daily bmp -dialysis diet >>? role for recirculation or other suboptimal dialysis w/ AVF issues >>written for HD tomorrow >>>>may need to involve vascular if still unable to run for eval on Saturday; may need to get critical care to place temp cath if we cannot get AVF to run (2) AV fistula: Plan: some issues w/ AV fistula cannulation last week as OP >> stuck x 5 last ; issues on both treatments here in house >> venous pressures quite elevated on tx yesterday and today and needles quite close to one another >> neph nurse tried more distal/lower AVF limb w/o success >>vascular eval on Saturday suggested; team is NOT aware and will need to be updated/have order placed (3) Atrial fibrillation with RVR: Plan: per cardiology/ primary service; appreciate beta harish recommendations and adjustments; challenging situation clinically >>> may need to further in crease standing midodrine dose so that he can tolerate (4) End-stage renal disease (ESRD): Plan: chronic volume overload in setting of progressive restrictive lung disease, chronic hypoxic resp failure and now atrial fibrillation w/ RVR -as aggressive UF as tolerated -routine treatment tomorrow (as much as he will allow) > plan for extra tx tomorrow to optimize volume status -continue low dose midodrine w/ HD (5) Anemia of chronic renal failure: Plan: transfusion dependent; no ASHLI d/t active renal cell CA; hgb 9.0; no indication for transfusion today Admission and Anticipated Discharge Date Admission Date: December 25, 2023 Subjective late entry note after pt seen on dialysis today at about 10 AM. 20 minutes into tx he developed hypotension, AF w/ RVR to 130-150s, [place]. did not respond to fluids; stopped tx after 40 minutes and he was net 200 mL positive. did d/w cardiology. ALSO ongoing issues w/ AVF >> challenging to get needles far enough apart to run well and venous pressures have been markedly elevated Review of Systems 2 Review of Systems: All systems reviewed & are unremarkable except as noted in Subjective Physical Exam 2 Constitutional: well developed, well nourished and + ill appearing (ashen complected, tired); no acute distress Eyes: EOM intact bilaterally ENMT: Mouth: + dry oral mucous membranes Respiratory: normal respiratory effort (on 02nc); no cough Auscultation: + wheezes Cardiovascular: Heart Sounds: normal S1 and normal S2 Extremities: + edema (1+ R>L) and + AV fistula Musculoskeletal: Extremities: strength 5/5 throughout Skin: no rashes, warm and dry Results & Data Vital Signs (Past 12 Hours) Vital Signs Temp Pulse Pulse Resp BP BP Pulse Ox 12/27/23 17:00 135 H 12/27/23 16:04 36.4 C L 130 H 18 110/73 95 12/27/23 12:00 12/27/23 10:40 36.3 C L 135 H 108/74 12/27/23 10:15 130 H 85/66 L 12/27/23 10:06 142 H 102/64 12/27/23 10:00 142 H 85/50 L 12/27/23 09:39 76 132/73 12/27/23 09:17 36.5 C 72 12/27/23 08:00 71 O2 Del Method O2 Flow Rate 12/27/23 17:00 12/27/23 16:04 Nasal Cannula 3 12/27/23 12:00 Nasal Cannula 4 12/27/23 10:40 12/27/23 10:15 12/27/23 10:06 12/27/23 10:00 12/27/23 09:39 12/27/23 09:17 12/27/23 08:00 Laboratory Results 12/27/23 06:25 12/27/23 06:25
[2023-12-27] MEDS: PATIROMER CALCIUM SORBITEX 8.4 GM PACK PO SCH (21:16)
[2023-12-28] MEDS ORDERED: SODIUM CHLORIDE 0.9% 1,000 ML IV PRN (07:00)
[2023-12-28 07:40] LABS: Hematocrit (blood only) 31.4 % (42.0-52.0); Hemoglobin 9.6 g/dl (14.0-18.0); Mean Corpuscular Hemoglobin 28.2 pg (25.0-34.0); Mean Corpuscular Hgb Conc 30.6 g/dL (32.0-36.0); Mean Corpuscular Volume 92.4 fL (80.0-100.0); Mean Platelet Volume 10.3 fL (9.4-12.4); Platelet Count 172 K/uL (130-400); RDW Coefficient of Variation 16.9 % (11.5-14.5); RDW Standard Deviation 56.6 fL (36.4-46.3); White Blood Count 13.88 K/ul (4.8-10.8)
[2023-12-28 08:00] LABS: BUN Creatinine Ratio 12.5 (10-20); Calcium 9.1 mg/dl (8.6-10.3); Creatinine Clr Calc Pharmacy 7.5 ml/min; Magnesium 2.3 mg/dl (1.7-2.4); Phosphorus 8.2 mg/dl (2.5-4.9); Potassium 5.5 mmol/L (3.5-5.1)
[2023-12-28] MEDS: dilTIAZem HCL 30 MG TAB PO SCH (08:51)
[2023-12-28] MEDS: methylPREDNISolone 40 MG in SYRINGE 0 ML IV SCH (08:53)
[2023-12-28] MEDS ORDERED: methylPREDNISolone 40 MG in SYRINGE 0 ML IV SCH (09:00)
--- NOTE | 2023-12-28 10:04 | Cardiology Progress Note ---
Date of Service December 28, 2023 Assessment & Plan (1) Atrial fibrillation with RVR: Plan: Atrial fibrillation / atrial flutter (2) Bifascicular bundle branch block: (3) COPD with exacerbation: (4) End-stage renal disease (ESRD): Plan: * Ongoing issues of tachycardia and hypotension at prevented hemodialysis sessions. Typical outpatient dialysis schedule is Saturday, , Saturday. Tolerated dialysis well on , 12/26/2023. Additional treatment attempted 12/27/2023, but aborted due to tachycardia with heart rate back up into the 130s to 150s, and symptomatic hypotension. Heart rates improved with noted addition of short acting diltiazem on 12/27/2023. Recommendations: Change standing dose of metoprolol to tartrate to 50 mg twice daily Continue diltiazem 30 mg daily in the morning. Continue midodrine 2.5 mg 3 times daily daily On days of hemodialysis, replaced the 2.5 mg midodrine dose with 10 mg before dialysis session On days of dialysis, take diltiazem 30 mg in the morning. Hold a.m. dose of metoprolol. Take metoprolol tartrate 50 mg in the evening on dialysis days. -Note, utilizing short acting formulations of diltiazem and metoprolol given episodic low blood pressure. Admission and Anticipated Discharge Date Admission Date: December 25, 2023 Subjective Patient seen in cardiology follow-up. Sitting in bedside chair. Feeling well. Subjectively states that his breathing is much improved. Telemetry reveals rate controlled atrial flutter in the 70s. Heart rate had been persistently in the 130s yesterday and trended toward improvement after 9 to 10 PM Physical Exam 2 Physical Exam: General: Chronically ill in appearance without acute distress Eyes: conjunctiva are pink and non-injected, sclera clear Neck: normal jugular venous pulse, no hepatojugular reflux Chest: normal shape and normal respiratory effort Lungs: Wheezing much improved 12/28/2023 Cardiac Exam: -Regular rhythm, no murmurs, trace bilateral lower extremity edema Abdomen: abdomen soft, non-tender, no abnormal masses and no hepatosplenomegaly Neuro:awake, conversant, follows commands, no focal motor deficits Results & Data Vital Signs (Past 12 Hours) Vital Signs Temp Pulse Pulse Pulse Resp BP Pulse Ox 12/28/23 07:33 36.4 C L 73 18 132/74 98 10/12/24 07:21 72 18 93 12/28/23 02:54 36.5 C 72 18 131/74 98 12/27/23 23:46 74 12/27/23 23:00 36.4 C L 72 18 126/71 98 O2 Del Method O2 Flow Rate 12/28/23 07:33 Nasal Cannula 4.5 12/28/23 07:21 Nasal Cannula 4 12/28/23 02:54 Nasal Cannula 3 12/27/23 23:46 12/27/23 23:00 Nasal Cannula 3
[2023-12-28] MEDS: HEPARIN SOD (PORCINE) 1000 UNIT/ML IV SCH (11:27)
[2023-12-28] MEDS: HEPARIN SOD (PORCINE) 1000 UNIT/ML IV ONE (11:27)
--- NOTE | 2023-12-28 12:09 | Nephrology Progress Note ---
Date of Service December 28, 2023 Assessment & Plan (1) Hyperkalemia: Plan: K 6.6 on admission and ran but w/ needles close together and high venous pressures > concern for AVF issue including stenosis or/and recirculation.Could not be dialysed because of increased heart rate yesterday, potassium was 6.3 which has improved to 5.5 today. he is on Veltassa - to be dialyzed today as per prescription. - continue on Veltassa after dialysis also. >>? role for recirculation or other suboptimal dialysis w/ AVF issues >>>>may need to involve vascular if still unable to run for eval on Saturday; may need to get critical care to place temp cath if we cannot get AVF to run (2) AV fistula: Plan: some issues w/ AV fistula cannulation last week as OP >> stuck x 5 last ; issues on both treatments here in house >> venous pressures quite elevated on tx yesterday and today and needles quite close to one another >> neph nurse tried more distal/lower AVF limb w/o success >>vascular eval on Saturday suggested; team needs to be updated/have order placed (3) Atrial fibrillation with RVR: Plan: per cardiology/ primary service; - RATE controlled now. (4) End-stage renal disease (ESRD): Plan: chronic volume overload in setting of progressive restrictive lung disease, chronic hypoxic resp failure and now atrial fibrillation w/ RVR -as aggressive UF as tolerated -routine treatment today (as much as he will allow) > plan for next Tx on Saturday -continue low dose midodrine w/ HD (5) Anemia of chronic renal failure: Plan: transfusion dependent; no ASHLI d/t active renal cell CA; Admission and Anticipated Discharge Date Admission Date: December 25, 2023 Subjective Comfortable,Sitting in bedside chair. Feeling well. Heart rate controlled in the 70s. Review of Systems 2 Review of Systems: All systems reviewed & are unremarkable except as noted in HPI & below Results & Data Vital Signs (Past 12 Hours) Vital Signs Temp Pulse Pulse Pulse Resp BP BP 12/28/23 11:30 78 120/67 12/28/23 11:00 77 127/67 12/28/23 10:30 75 125/65 12/28/23 10:06 36.5 C 73 12/28/23 09:00 73 12/28/23 07:33 36.4 C L 73 18 132/74 12/28/23 07:21 72 18 12/28/23 02:54 36.5 C 72 18 131/74 Pulse Ox O2 Del Method O2 Flow Rate 12/28/23 11:30 12/28/23 11:00 12/28/23 10:30 12/28/23 10:06 12/28/23 09:00 12/28/23 07:33 98 Nasal Cannula 4.5 12/28/23 07:21 93 Nasal Cannula 4 12/28/23 02:54 98 Nasal Cannula 3 Laboratory Results 12/28/23 07:02 12/28/23 07:02
--- NOTE | 2023-12-28 14:11 | Hospitalist Progress Note ---
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 Per daughter, patient went to Cardiology appointment without his oxygen therapy, likely precipitated a fib/flutter RVR and exacerbation as he was last well known that morning Patient initially improved with 12.5mg metoprolol qid however, complicated by intradialytic hemodynamic instability. On 12/26, patient back into rates of 130- 150s. Cardiology following closely with implementation of regimen to aid in holding bp stable while addressing hr. Patient poor candidate for antiarrhythmic (amiodarone) therapies given multiple complex comorbidities. Patient tolerated session 12/27 with HD and stable HR; however, patient with continued issues with AVF pressures as OP therefore plan for vascular consult #AVF malfunction Per nephrology : "AV fistula cannulation last week as OP >> stuck x 5 last weekend; issues on both treatments here in house >> venous pressures quite elevated on tx yesterday and today and needles quite close to one another" Consult for vascular placed 2/2 malfunctioning AVF -Will discuss if need for temp cath must be placed with nephrology #Hyperkalemia iso suboptimal HD sessions continue valtessa per nephrology #Positive blood culture 1/4 positive at this time with kathy epi. likely contaminate CTM #Atrial fibrillation/flutter with RVR #Liable blood pressure suspect likely in relation to noncompliance with Oxygen (daughter reports patient presented to cardiology appointment with out O2) rapid rates s/p HD on 12/26 Cardiology consulted, reviewed recommendations Transitioned to Metoprolol tartrate 50mg BID Continue newly started midodrine 2.5mg TID Continue newly started diltiazem 30mg daily -Continue low does eliquis Continue to monitor on tele Dispo plab: On days of hemodialysis, replaced the 2.5 mg midodrine dose with 10 mg before dialysis session On days of dialysis, take diltiazem 30 mg in the morning. Hold a.m. dose of metoprolol. Take metoprolol tartrate 50 mg in the evening on dialysis days. 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 [employer] respiratory panel negative/ CXR without infiltrate Now at baseline, procal 0.74, mrsa neg continue po augmentin (recommended given low volume and good po bioavailability) Continue IV [id number], mucinex, flutter valve continue bronchodilator, nebs prn #Pressure injury of buttock, stage 1: Wound nurse consult: resolved # End-stage renal disease (ESRD): #Anemia of chronic renal failure: On HD on , [facility] consult for assistance in HD and volume status Continue home renal vitamins Continue midodrine prior to HD H&H stable #Dyslipidemia: Continue atorvastatin #Coronary artery disease: S/P Stent Denies CP Continue atorvastatin #History of DVT (deep vein thrombosis): Continue Eliquis DVT eliquis dispo contingent on HR control Admission and Anticipated Discharge Date Admission Date: December 25, 2023 Subjective NAEO Patient evaluated prior to HD and reports feeling "ok" without any acute concerns Able to tolerate session today; however, noted to have elevated pressures c onsistently in AVF Physical Exam Constitutional: WD/WN, vitals as above Respiratory: improved rhonchi, diminished peripheral breath sounds, no wheezing on exam Cardiovascular: irregularly irregular Gastrointestinal (Abdomen): normal bowel sounds, soft, nontender, no hepatosplenomegaly Results & Data Results & Data Vital Signs (Past 12 Hours) Vital Signs Temp Pulse Pulse Pulse Resp BP BP 12/28/23 13:30 81 91/41 L 12/28/23 13:00 78 96/74 L 12/28/23 12:30 80 89/48 L 12/28/23 12:00 79 121/51 L 12/28/23 11:30 78 120/67 12/28/23 11:00 77 127/67 12/28/23 10:30 75 125/65 12/28/23 10:06 36.5 C 73 12/28/23 09:00 73 12/28/23 07:33 36.4 C L 73 18 132/74 12/28/23 07:21 72 18 12/28/23 02:54 36.5 C 72 18 131/74 Pulse Ox O2 Del Method O2 Flow Rate 12/28/23 13:30 12/28/23 13:00 12/28/23 12:30 12/28/23 12:00 12/28/23 11:30 12/28/23 11:00 12/28/23 10:30 12/28/23 10:06 12/28/23 09:00 12/28/23 07:33 98 Nasal Cannula 4.5 12/28/23 07:21 93 Nasal Cannula 4 12/28/23 02:54 98 Nasal Cannula 3 Laboratory Results Short CBC 12/28/23 Range/Units 07:02 WBC 13.88 H (4.8-10.8) K/ul Hgb 9.6 L (14.0-18.0) g/dl Hct 31.4 L (42.0-52.0) % Plt Count 172 (130-400) K/uL BMP 12/28/23 07:02 Sodium 134 L Potassium 5.5 H Chloride 95 L Carbon Dioxide 26 BUN 96 H Creatinine 7.65 H* D Glucose 90 Calcium 9.1 Medications Administered Home Medications Medication Instructions Recorded Confirmed Last Taken venlafaxine 37.5 mg 37.5 mg PO DAILY 02/01/22 12/25/23 10/31/23 capsule,extended release 24 hr (Effexor XR) nitroglycerin 0.4 mg sublingual 0.4 mg sublingual UD PRN Chest Pain 05/14/23 12/25/23 Unknown tablet (Nitrostat) rosuvastatin 10 mg tablet 10 mg PO QAM 05/14/23 12/25/23 10/31/23 buspirone 5 mg tablet 5 mg PO AMHS 08/26/23 12/25/23 10/31/23 glycopyrrolate 9 mcg-formoterol 1 puff inhalation BID 08/26/23 12/25/23 10/31/23 4.8 mcg HFA aerosol inhaler (Bevespi Aerosphere) midodrine 5 mg tablet 10 mg PO 3XWK 08/26/23 12/25/23 Unknown vitamin B complex-vitamin C-folic 1 tab PO 3XWK 08/26/23 12/25/23 Unknown acid 0.8 mg tablet (Izzy-Vianney) apixaban 2.5 mg tablet (Eliquis) 2.5 mg PO BID #60 tabs 08/29/23 12/25/23 11/10/23 09:00 ipratropium 0.5 mg-albuterol 3 mg 3 ml NEB Q4 PRN Wheezing 10/31/23 12/25/23 Unknown (2.5 mg base)/3 mL nebulization soln calcium acetate(phosphat bind) 667 1,334 mg PO TIDWMEAL 11/10/23 12/25/23 Unknown mg capsule lorazepam 0.5 mg tablet 0.5 mg PO DIRECTED 11/10/23 12/25/23 Unknown albuterol sulfate 2.5 mg/3 mL 2.5 mg continuous nebulization Q6 12/25/23 12/25/23 Unknown (0.083 %) solution for nebulization PRN Wheezing albuterol sulfate 90 mcg/actuation 2 puff inhalation Q4 PRN Wheezing 12/25/23 12/25/23 Unknown aerosol inhaler metoprolol tartrate 25 mg tablet 25 mg PO BID 12/25/23 12/25/23 12/25/23 Active Medications Generic Name Dose Route Start Last Admin Trade Name Freq PRN Reason Stop Dose Admin Acetaminophen 650 mg 12/25/23 20:40 12/28/23 08:51 Acetaminophen 325 Mg Tab PO 01/24/24 20:39 650 mg Q4H PRN Administration Pain or Fever Amoxicillin/Clavulanate Potassium 1 tab 12/27/23 16:30 12/27/23 16:46 Amoxicillin/Clavulanate 500 Mg Tab PO 01/02/24 16:29 1 tab QDD MARCOS Administration Apixaban 2.5 mg 12/25/23 21:00 12/28/23 08:48 Apixaban 2.5 Mg Tab PO 01/24/24 20:59 2.5 mg BID MARCOS Administration Budesonide 0.5 mg 12/26/23 19:00 12/28/23 07:21 Budesonide 0.5 Mg/2 Ml Vial (Pulmicort) NEB 01/25/24 18:59 0.5 mg BIDR MARCOS Administration Buspirone HCl 5 mg 12/25/23 21:00 12/28/23 09:58 Buspirone 5 Mg Tab PO 01/24/24 20:59 Not Given AMHS MARCOS Calcium Acetate 1,334 mg 12/25/23 20:40 12/28/23 12:31 Calcium Acetate 667 Mg Cap/Tab PO 01/24/24 20:39 Not Given TIDM MARCOS Diltiazem HCl 30 mg 12/28/23 09:00 12/28/23 08:51 Diltiazem Hcl 30 Mg Tab PO 01/27/24 08:59 30 mg DAILY MARCOS Administration Formoterol Fumarate 20 mcg 12/26/23 16:55 12/28/23 07:21 Formoterol 20 Mcg/2 Ml Vial NEB 01/25/24 16:54 20 mcg BIDR MARCOS Administration Guaifenesin 600 mg 12/26/23 21:00 12/28/23 08:51 Guaifenesin 600 Mg Tabcr PO 01/25/24 20:59 600 mg Q12 MARCOS Administration Methylprednisolone 40 mg/ 0.64 mls @ 1.5 mls/min 12/28/23 09:00 12/28/23 08:53 Syringe IV 01/02/24 08:59 1.5 mls/min DAILY MARCOS Administration Levalbuterol HCl 0.63 mg 12/25/23 20:40 12/27/23 00:45 Levalbuterol Hcl 0.63 Mg/3 Ml Neb [facility] 01/24/24 20:39 0.63 mg Q6R PRN Administration Shortness Of Breath Or Wheezing Protocol Lorazepam 0.5 mg 12/25/23 20:40 12/27/23 08:33 Lorazepam 0.5 Mg Tab PO 01/24/24 20:39 0.5 mg DAILY PRN Administration 15-20 mins Before Dialysis Midodrine 10 mg 12/25/23 20:40 12/27/23 08:36 Midodrine Hcl 10 Mg Tab PO 01/24/24 20:39 10 mg DAILY PRN Administration Take before dialysis Midodrine 2.5 mg 12/27/23 17:00 12/28/23 12:31 Midodrine Hcl 2.5 Mg Tab PO 01/26/24 16:59 Not Given TID@0800,1200,1700 MARCOS Patiromer 16.8 gm 12/27/23 20:30 12/28/23 12:31 Patiromer Calcium Sorbitex 8.4 Gm Pack PO 01/26/24 20:29 Not Given DAILY@1200 [facility] Rosuvastatin Calcium 10 mg 12/26/23 09:00 12/28/23 08:51 Rosuvastatin Calcium 10 Mg Tab PO 01/25/24 08:59 10 mg QAM MARCOS Administration Umeclidinium/Vilanterol 1 puffs 12/26/23 07:00 12/28/23 09:02 Umeclidinium/Vilanterol 62.5/25mcg 7 Puffs/Inhaler INH 01/25/24 06:59 1 puffs BIDR MARCOS Administration Protocol Venlafaxine HCl 37.5 mg 12/26/23 09:00 12/28/23 08:51 Venlafaxine Hcl Xr 37.5 Mg Capxr PO 01/25/24 08:59 37.5 mg DAILY MARCOS Administration
[2023-12-28] MEDS: METOPROLOL TARTRATE 50 MG TAB PO SCH (21:10)
[2023-12-29 07:02] LABS: Hematocrit (blood only) 28.1 % (42.0-52.0); Hemoglobin 8.7 g/dl (14.0-18.0); Mean Corpuscular Hemoglobin 28.2 pg (25.0-34.0); Mean Corpuscular Volume 91.2 fL (80.0-100.0); Mean Platelet Volume 10.4 fL (9.4-12.4); Platelet Count 143 K/uL (130-400); RDW Coefficient of Variation 16.6 % (11.5-14.5); RDW Standard Deviation 55.4 fL (36.4-46.3); Red Blood Count 3.08 M/uL (4.70-6.10)
[2023-12-29 07:37] LABS: BUN Creatinine Ratio 10.1 (10-20); Calcium 8.4 mg/dl (8.6-10.3); Creatinine Clr Calc Pharmacy 10.5 ml/min; Magnesium 2.1 mg/dl (1.7-2.4); Phosphorus 6.9 mg/dl (2.5-4.9); Potassium 5.4 mmol/L (3.5-5.1)
--- NOTE | 2023-12-29 11:00 | Cardiology Progress Note ---
Date of Service December 29, 2023 Assessment & Plan (1) Atrial fibrillation with RVR: Plan: Atrial fibrillation / atrial flutter (2) Bifascicular bundle branch block: (3) COPD with exacerbation: (4) End-stage renal disease (ESRD): Plan: * Ongoing issues of tachycardia and hypotension which has caused interruption/prevented hemodialysis sessions. * Patient admitted on 12/25/2023 for COPD exacerbation, atrial flutter with rapid ventricular rate, rate in the range of 130s to 150s. Typical outpatient dialysis schedule is Saturday, , Saturday. Tolerated dialysis well on , 12/26/2023. Additional treatment attempted 12/27/2023, but aborted due to tachycardia with heart rate back up into the 130s to 150s, and symptomatic hypotension. Heart rates improved with noted addition of short acting diltiazem on 12/27/2023. Recommendations: Standing dose of metoprolol tartrate to 50 mg twice daily Continue diltiazem 30 mg daily in the morning. Continue midodrine 2.5 mg 3 times daily daily On days of hemodialysis, replace the 2.5 mg midodrine dose with 10 mg before dialysis session On days of dialysis, take diltiazem 30 mg in the morning. Hold a.m. dose of metoprolol. Take metoprolol tartrate 50 mg in the evening on dialysis days. -Note, utilizing short acting formulations of diltiazem and metoprolol given episodic low blood pressure. Admission and Anticipated Discharge Date Admission Date: December 25, 2023 Subjective Patient feeling improved. Heart and blood pressure have trended toward improvement, with telemetry revealing atrial flutter in the 80s today. Physical Exam Physical Exam: General: Chronically ill in appearance without acute distress Eyes: conjunctiva are pink and non-injected, sclera clear Neck: normal jugular venous pulse, no hepatojugular reflux Chest: normal shape and normal respiratory effort Lungs: Wheezing much improved Cardiac Exam: -Regular rhythm, no murmurs, trace bilateral lower extremity edema Abdomen: abdomen soft, non-tender, no abnormal masses and no hepatosplenomegaly Neuro:awake, conversant, follows commands, no focal motor deficits Results & Data Vital Signs (Past 12 Hours) Vital Signs Temp Pulse Pulse Pulse Resp BP Pulse Ox 12/29/23 08:50 79 12/29/23 08:00 12/29/23 07:28 36.6 C 81 18 133/74 95 12/29/23 07:23 81 18 95 12/29/23 03:07 36.5 C 78 18 124/68 96 O2 Del Method O2 Flow Rate 12/29/23 08:50 12/29/23 08:00 Nasal Cannula 4 12/29/23 07:28 Nasal Cannula 4 12/29/23 07:23 Nasal Cannula 4 12/29/23 03:07 Nasal Cannula
--- NOTE | 2023-12-29 13:01 | Hospitalist Progress Note ---
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 Per daughter, patient went to Cardiology appointment without his oxygen therapy, likely precipitated a fib/flutter RVR and exacerbation as he was last well known that morning Patient initially improved with 12.5mg metoprolol qid however, complicated by intradialytic hemodynamic instability. On 12/26, patient back into rates of 130- 150s. Cardiology following closely with implementation of regimen to aid in holding bp stable while addressing hr. Patient poor candidate for antiarrhythmic (amiodarone) therapies given multiple complex comorbidities. Patient tolerated session 12/27 with HD and stable HR; however, patient with continued issues with AVF pressures as OP therefore plan for vascular consult come 12/29 #AVF malfunction Per nephrology : "AV fistula cannulation last week as OP >> stuck x 5 last weekend; issues on both treatments here in house >> venous pressures quite elevated on tx yesterday and today and needles quite close to one another" Consult for vascular placed 2/2 malfunctioning AVF -Will discuss if need for temp cath must be placed with nephrology Will make NPO at midnight #Hyperkalemia iso suboptimal HD sessions continue valtessa per nephrology #Positive blood culture /4 positive at this time with kathy epi. likely contaminate CTM #Atrial fibrillation/flutter with RVR #Liable blood pressure suspect likely in relation to noncompliance with Oxygen (daughter reports patient presented to cardiology appointment with out O2) rapid rates s/p HD on 12/26 Cardiology consulted, reviewed recommendations Transitioned to Metoprolol tartrate 50mg BID Continue newly started midodrine 2.5mg TID Continue newly started diltiazem 30mg daily -Continue low does eliquis Continue to monitor on tele Dispo plan: On days of hemodialysis, replaced the 2.5 mg midodrine dose with 10 mg before dialysis session On days of dialysis, take diltiazem 30 mg in the morning. Hold a.m. dose of metoprolol. Take metoprolol tartrate 50 mg in the evening on dialysis days. 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 [employer] respiratory panel negative/ CXR without infiltrate Now at baseline, procal 0.74, mrsa neg continue po augmentin (recommended given low volume and good po bioavailability) completed IV [id number], continue mucinex, flutter valve continue bronchodilator, nebs prn #Pressure injury of buttock, stage 1: Wound nurse consult: resolved # End-stage renal disease (ESRD): #Anemia of chronic renal failure: On HD on , Sat Nephrology consult for assistance in HD and volume status Continue home renal vitamins Continue midodrine prior to HD H&H stable #Dyslipidemia: Continue atorvastatin #Coronary artery disease: S/P Stent Denies CP Continue atorvastatin #History of DVT (deep vein thrombosis): Continue Eliquis DVT eliquis dispo contingent on vascular eval Admission and Anticipated Discharge Date Admission Date: December 25, 2023 Subjective evaluated patient in bedside chair Reports feeling much improved today and eager to leave Denies any chest pain or palpitations Understands needing to stay for fistula evaluation but states he will "leave no matter what tomorrow" Physical Exam Respiratory: diminished breath sounds, however more clear today with less rhochi Cardiovascular: irregular Gastrointestinal (Abdomen): normal bowel sounds, soft, nontender, no hepatosplenomegaly Results & Data Results & Data Vital Signs (Past 12 Hours) Vital Signs Temp Pulse Pulse Pulse Resp BP Pulse Ox 12/29/23 11:13 36.6 C 95 H 18 135/67 95 12/29/23 08:50 79 12/29/23 08:00 12/29/23 07:28 36.6 C 81 18 133/74 95 12/29/23 07:23 81 18 95 12/29/23 03:07 36.5 C 78 18 124/68 96 O2 Del Method O2 Flow Rate 12/29/23 11:13 Nasal Cannula 4 12/29/23 08:50 12/29/23 08:00 Nasal Cannula 4 12/29/23 07:28 Nasal Cannula 4 12/29/23 07:23 Nasal Cannula 4 12/29/23 03:07 Nasal Cannula Laboratory Results Short CBC 12/29/23 Range/Units 06:37 WBC 9.80 (4.8-10.8) K/ul Hgb 8.7 L (14.0-18.0) g/dl Hct 28.1 L (42.0-52.0) % Plt Count 143 (130-400) K/uL BMP 12/29/23 06:37 Sodium 136 Potassium 5.4 H Chloride 97 L Carbon Dioxide 29 BUN 55 H D Creatinine 5.46 H* D Glucose 84 Calcium 8.4 L Medications Administered Home Medications Medication Instructions Recorded Confirmed Last Taken venlafaxine 37.5 mg 37.5 mg PO DAILY 02/01/22 12/25/23 10/31/23 capsule,extended release 24 hr (Effexor XR) nitroglycerin 0.4 mg sublingual 0.4 mg sublingual UD PRN Chest Pain 05/14/23 12/25/23 Unknown tablet (Nitrostat) rosuvastatin 10 mg tablet 10 mg PO QAM 05/14/23 12/25/23 10/31/23 buspirone 5 mg tablet 5 mg PO AMHS 08/26/23 12/25/23 10/31/23 glycopyrrolate 9 mcg-formoterol 1 puff inhalation BID 08/26/23 12/25/23 10/31/23 4.8 mcg HFA aerosol inhaler (Bevespi Aerosphere) midodrine 5 mg tablet 10 mg PO 3XWK 08/26/23 12/25/23 Unknown vitamin B complex-vitamin C-folic 1 tab PO 3XWK 08/26/23 12/25/23 Unknown acid 0.8 mg tablet (Izzy-Vianney) apixaban 2.5 mg tablet (Eliquis) 2.5 mg PO BID #60 tabs 08/29/23 12/25/23 11/10/23 09:00 ipratropium 0.5 mg-albuterol 3 mg 3 ml NEB Q4 PRN Wheezing 10/31/23 12/25/23 Unknown (2.5 mg base)/3 mL nebulization soln calcium acetate(phosphat bind) 667 1,334 mg PO TIDWMEAL 11/10/23 12/25/23 Unknown mg capsule lorazepam 0.5 mg tablet 0.5 mg PO DIRECTED 11/10/23 12/25/23 Unknown albuterol sulfate 2.5 mg/3 mL 2.5 mg continuous nebulization Q6 12/25/23 12/25/23 Unknown (0.083 %) solution for nebulization PRN Wheezing albuterol sulfate 90 mcg/actuation 2 puff inhalation Q4 PRN Wheezing 12/25/23 12/25/23 Unknown aerosol inhaler metoprolol tartrate 25 mg tablet 25 mg PO BID 12/25/23 12/25/23 12/25/23 Active Medications Generic Name Dose Route Start Last Admin Trade Name Freq PRN Reason Stop Dose Admin Acetaminophen 650 mg 12/25/23 20:40 12/28/23 08:51 Acetaminophen 325 Mg Tab PO 01/24/24 20:39 650 mg Q4H PRN Administration Pain or Fever Amoxicillin/Clavulanate Potassium 1 tab 12/27/23 16:30 12/28/23 16:13 Amoxicillin/Clavulanate 500 Mg Tab PO 01/02/24 16:29 1 tab QDD MARCOS Administration Apixaban 2.5 mg 12/25/23 21:00 12/29/23 08:35 Apixaban 2.5 Mg Tab PO 01/24/24 20:59 2.5 mg BID MARCOS Administration Budesonide 0.5 mg 12/26/23 19:00 12/29/23 07:22 Budesonide 0.5 Mg/2 Ml Vial (Pulmicort) NEB 01/25/24 18:59 0.5 mg BIDR MARCOS Administration Buspirone HCl 5 mg 12/25/23 21:00 12/29/23 08:36 Buspirone 5 Mg Tab PO 01/24/24 20:59 5 mg AMHS MARCOS Administration Calcium Acetate 1,334 mg 12/25/23 20:40 12/29/23 12:06 Calcium Acetate 667 Mg Cap/Tab PO 01/24/24 20:39 1,334 mg TIDM MARCOS Administration Diltiazem HCl 30 mg 12/28/23 09:00 12/29/23 08:36 Diltiazem Hcl 30 Mg Tab PO 01/27/24 08:59 30 mg DAILY MARCOS Administration Formoterol Fumarate 20 mcg 12/26/23 16:55 12/29/23 07:22 Formoterol 20 Mcg/2 Ml Vial NEB 01/25/24 16:54 20 mcg BIDR MARCOS Administration Guaifenesin 600 mg 12/26/23 21:00 12/29/23 08:36 Guaifenesin 600 Mg Tabcr PO 01/25/24 20:59 600 mg Q12 MARCOS Administration Methylprednisolone 40 mg/ 0.64 mls @ 1.5 mls/min 12/28/23 09:00 12/29/23 08:36 Syringe IV 01/02/24 08:59 1.5 mls/min DAILY MARCOS Administration Levalbuterol HCl 0.63 mg 12/25/23 20:40 12/27/23 00:45 Levalbuterol Hcl 0.63 Mg/3 Ml Neb [facility] 01/24/24 20:39 0.63 mg Q6R PRN Administration Shortness Of Breath Or Wheezing Protocol Lorazepam 0.5 mg 12/25/23 20:40 12/27/23 08:33 Lorazepam 0.5 Mg Tab PO 01/24/24 20:39 0.5 mg DAILY PRN Administration 15-20 mins Before Dialysis Metoprolol Tartrate 50 mg 12/28/23 21:00 12/29/23 08:35 Metoprolol Tartrate 50 Mg Tab PO 01/27/24 20:59 50 mg BID MARCOS Administration Midodrine 10 mg 12/25/23 20:40 12/27/23 08:36 Midodrine Hcl 10 Mg Tab PO 01/24/24 20:39 10 mg DAILY PRN Administration Take before dialysis Midodrine 2.5 mg 12/27/23 17:00 12/29/23 12:06 Midodrine Hcl 2.5 Mg Tab PO 01/26/24 16:59 2.5 mg TID@0800,1200,1700 MARCSO Administration Patiromer 16.8 gm 12/27/23 20:30 12/29/23 12:15 Patiromer Calcium Sorbitex 8.4 Gm Pack PO 01/26/24 20:29 16.8 gm DAILY@1200 MARCOS Administration Rosuvastatin Calcium 10 mg 12/26/23 09:00 12/29/23 08:36 Rosuvastatin Calcium 10 Mg Tab PO 01/25/24 08:59 10 mg QAM MARCOS Administration Umeclidinium/Vilanterol 1 puffs 12/26/23 07:00 12/29/23 06:01 Umeclidinium/Vilanterol 62.5/25mcg 7 Puffs/Inhaler INH 01/25/24 06:59 1 puffs BIDR MARCOS Administration Protocol Venlafaxine HCl 37.5 mg 12/26/23 09:00 12/29/23 08:35 Venlafaxine Hcl Xr 37.5 Mg Capxr PO 01/25/24 08:59 37.5 mg DAILY MARCOS Administration
[2023-12-30] MEDS ORDERED: SODIUM CHLORIDE 0.9% 1,000 ML IV PRN (07:00)
[2023-12-30 07:52] VITALS: RESP 18
--- NOTE | 2023-12-30 08:11 | Cardiology Progress Note ---
Date of Service December 30, 2023 Assessment & Plan (1) Atrial flutter with rapid ventricular response: (2) End-stage renal disease on hemodialysis: Plan (1) Atrial fibrillation with RVR: Plan: Atrial fibrillation / atrial flutter (2) Bifascicular bundle branch block: (3) COPD with exacerbation: (4) End-stage renal disease (ESRD): Plan: * Ongoing issues of tachycardia and hypotension which has caused interruption/prevented hemodialysis sessions. * Patient admitted on 12/25/2023 for COPD exacerbation, atrial flutter with rapid ventricular rate, rate in the range of 130s to 150s. Typical outpatient dialysis schedule is Saturday, , Saturday. Tolerated dialysis well on , 12/26/2023. Additional treatment attempted 12/27/2023, but aborted due to tachycardia with heart rate back up into the 130s to 150s, and symptomatic hypotension. Heart rates improved with noted addition of short acting diltiazem on 12/27/2023. LVEF 60-65% in Plans: * Ventricular rate is well controlled * Continue Lopressor - increase dose to 75 mg po BID * ON HD Days, may hold beta blockers are use Diltiazem 30 mg po x 1 prior to session instead of Lopressor * On days of hemodialysis, replace the 2.5 mg midodrine dose with 10 mg before dialysis session * SBP was 140's during HR run today - Does he need the midodrine? Defer to your historical perspective, but may consider weaning the dose to lowest possible * Patient appear to have significant neck vein elevation * Suspect that elevated RA pressures/Volume overload is a major paratransit driver of the atrial arrhythmia * Outpatient EP evaluation to see if the Aflutter/fib can be ablated * TSH is WNL - 2 * Continue DOAC * SBP elevated - not being treated given labile nature of BP * Please call back with any additional questions Jones Melendez Admission and Anticipated Discharge Date Admission Date: December 25, 2023 Subjective Events Overnight: * HR improved * HRs in the 70-low 100's - aflutter * Patient is asymptomatic with aflutter Subjective: * No complaints Review of Systems Review of Systems: All systems reviewed & are unremarkable except as noted in HPI & below Physical Exam Physical Exam: Obese JVP to Jaw S1S2 2/6 Systolic Murmur at apex + Diffuse bilateral wheezing Trace LE edema Warm and perfusing Results & Data Vital Signs (Past 12 Hours) Vital Signs Temp Pulse Pulse Resp BP Pulse Ox O2 Del Method 12/30/23 07:55 Nasal Cannula 12/30/23 07:52 36.4 C L 77 18 154/81 H 99 Nasal Cannula 12/30/23 07:08 78 16 99 Nasal Cannula 12/30/23 03:01 36.3 C L 77 20 148/74 H 97 Nasal Cannula 12/30/23 00:22 78 12/29/23 22:50 36.3 C L 78 16 135/73 95 Nasal Cannula O2 Flow Rate 12/30/23 07:55 4 12/30/23 07:52 3 12/30/23 07:08 4 12/30/23 03:01 4 12/30/23 00:22 12/29/23 22:50 4 Laboratory Results 12/30/23 Range/Units 07:56 Sodium 135 L (136-145) mmol/L Potassium 5.2 H (3.5-5.1) mmol/L Chloride 97 L (98-107) mmol/L Carbon Dioxide 22 (21-32) mmol/L Anion Gap 16 H (3-11) BUN 85 H D (6-23) mg/dl Creatinine 7.83 H* D (0.6-1.4) mg/dl Est Cr Clr Drug Dosing 7.3 ml/min eGFR 6.32 BUN/Creatinine Ratio 10.9 (10-20) Glucose 109 H (70-99(Fasting)) mg/dl Calcium 8.2 L (8.6-10.3) mg/dl Comprehensive Metabolic Panel 12/30/23 Range/Units 07:56 Sodium 135 L (136-145) mmol/L Potassium 5.2 H (3.5-5.1) mmol/L Chloride 97 L (98-107) mmol/L Carbon Dioxide 22 (21-32) mmol/L BUN 85 H D (6-23) mg/dl Creatinine 7.83 H* D (0.6-1.4) mg/dl Glucose 109 H (70-99(Fasting)) mg/dl Calcium 8.2 L (8.6-10.3) mg/dl Medications Administered Current Inpatient Medications Acetaminophen (Acetaminophen 325 Mg Tab) 650 mg PO Q4H PRN PRN Reason: Pain or Fever Stop: 01/24/24 20:39 Last Admin: 12/29/23 19:58 Dose: 650 mg Amoxicillin/Clavulanate Potassium (Amoxicillin/Clavulanate 500 Mg Tab) 1 tab PO QDD [facility] Stop: 01/02/24 16:29 Last Admin: 12/29/23 17:11 Dose: 1 tab Apixaban (Apixaban 2.5 Mg Tab) 2.5 mg PO BID [facility] Stop: 01/24/24 20:59 Last Admin: 12/30/23 07:51 Dose: 2.5 mg Budesonide (Budesonide 0.5 Mg/2 Ml Vial (Pulmicort)) 0.5 mg NEB BIDR [facility] Stop: 01/25/24 18:59 Last Admin: 12/30/23 07:07 Dose: 0.5 mg Buspirone HCl (Buspirone 5 Mg Tab) 5 mg PO AMHS [facility] Stop: 01/24/24 20:59 Last Admin: 12/30/23 07:51 Dose: 5 mg Calcium Acetate (Calcium Acetate 667 Mg Cap/Tab) 1,334 mg PO TIDM [facility] Stop: 01/24/24 20:39 Last Admin: 12/30/23 07:50 Dose: 1,334 mg Diltiazem HCl (Diltiazem Hcl 30 Mg Tab) 30 mg PO DAILY [facility] Stop: 01/27/24 08:59 Last Admin: 12/30/23 07:50 Dose: 30 mg Formoterol Fumarate (Formoterol 20 Mcg/2 Ml Vial) 20 mcg NEB BIDR [facility] Stop: 01/25/24 16:54 Last Admin: 12/30/23 07:07 Dose: 20 mcg Guaifenesin (Guaifenesin 600 Mg Tabcr) 600 mg PO Q12 [facility] Stop: 01/25/24 20:59 Last Admin: 12/30/23 07:50 Dose: 600 mg Sodium Chloride (Nss) 1,000 mls @ 0 mls/hr IV .Q0M PRN PRN Reason: For Hemodialysis Use ONLY Stop: 12/30/23 12:59 Levalbuterol HCl (Levalbuterol Hcl 0.63 Mg/3 Ml Neb) 0.63 mg NEB Q6R PRN; Protocol PRN Reason: Shortness Of Breath Or Wheezing Stop: 01/24/24 20:39 Last Admin: 12/27/23 00:45 Dose: 0.63 mg Lorazepam (Lorazepam 0.5 Mg Tab) 0.5 mg PO DAILY PRN PRN Reason: 15-20 mins Before Dialysis Stop: 01/24/24 20:39 Last Admin: 12/27/23 08:33 Dose: 0.5 mg Metoprolol Tartrate (Metoprolol Tartrate 50 Mg Tab) 50 mg PO BID [facility] Stop: 01/27/24 20:59 Last Admin: 12/30/23 07:49 Dose: 50 mg Midodrine (Midodrine Hcl 10 Mg Tab) 10 mg PO DAILY PRN PRN Reason: Take before dialysis Stop: 01/24/24 20:39 Last Admin: 12/27/23 08:36 Dose: 10 mg Midodrine (Midodrine Hcl 2.5 Mg Tab) 2.5 mg PO TID@0800,1200,1700 [facility] Stop: 01/26/24 16:59 Last Admin: 12/30/23 07:50 Dose: 2.5 mg Ondansetron HCl (Ondansetron Inj 2 Mg/Ml 2 Ml Vial) 4 mg IV Q6H PRN PRN Reason: Nausea Stop: 01/24/24 20:39 Patiromer (Patiromer Calcium Sorbitex 8.4 Gm Pack) 16.8 gm PO DAILY@1200 [facility] Stop: 01/26/24 20:29 Last Admin: 12/29/23 12:15 Dose: 16.8 gm Polyethylene Glycol (Polyethylene (Miralax) 17 Gm Pack) 17 gm PO DAILY PRN PRN Reason: Constipation Stop: 01/24/24 20:39 Rosuvastatin Calcium (Rosuvastatin Calcium 10 Mg Tab) 10 mg PO QAM [facility] Stop: 01/25/24 08:59 Last Admin: 12/30/23 07:50 Dose: 10 mg Umeclidinium/Vilanterol (Umeclidinium/Vilanterol 62.5/25mcg 7 Puffs/Inhaler) 1 puffs INH BIDR [facility]; Protocol Stop: 01/25/24 06:59 Last Admin: 12/30/23 06:23 Dose: 1 puffs Venlafaxine HCl (Venlafaxine Hcl Xr 37.5 Mg Capxr) 37.5 mg PO DAILY [facility] Stop: 01/25/24 08:59 Last Admin: 12/30/23 07:50 Dose: 37.5 mg
--- NOTE | 2023-12-30 08:57 | Consultation ---
Date of Consultation December 30, 2023 Assessment & Plan (1) End-stage renal disease on hemodialysis: Pt with RUE AVF; it appears that the median cubital vein was utilized, therefore pt has both a cephalic V and basilic V AVF. Both with good thrill/bruit throughout. Cephalic V is somewhat redundant/tortuous in midportion, careful cannulation recommended to avoid infiltration. Discussed with inpt HD unit, they state pt has elevated venous pressures with a distal venous cannulation, but not with a more proximal venous cannulation. Regardless, would keep needles adequate distance to avoid recirculation. Will obtain HD access US to eval, especially for more distal maturation. Will discuss US results with Dr Díaz and make further recommendations. History of Present Illness Reason for Consultation: malfunctioning RUE AVF Attending Physician: Fabiana Matthew MD History of Present Illness 83 yo m with hx of HTN, ESRD on HD, a fib/flutter ,CHF, COPD, dyslipidemia, anemia, BPH, admitted with hyperkalemia and tachycardia, seen in consultation today for malfunctioning RUE AVF. Pt underwent RUE AC AVF creation in 06/2022, b ut states they only started using for HD approx 2-3 months ago. Pt is a very poor historian. States the outpt HD unit has had "blowouts" of his AVF and there is bleeding. Per nephrology notes, they have had some trouble with cannulation, but are now noticing increased venous pressures and possible recirculation. Pt denies [place], fever, chest pain, SOB, abd pain,N/V, rest pain, claudication, other complaints. No imaging performed. Allergies Allergy/AdvReac Type Severity Reaction Status Date / Time lorazepam AdvReac Intermediate Hallucinati Verified 11/10/23 19:09 ng/Confusio n Home Medications Medication Instructions Recorded Confirmed Type venlafaxine 37.5 mg 37.5 mg PO DAILY 02/01/22 12/25/23 History capsule,extended release 24 hr (Effexor XR) nitroglycerin 0.4 mg sublingual 0.4 mg sublingual UD PRN Chest Pain 05/14/23 12/25/23 History tablet (Nitrostat) rosuvastatin 10 mg tablet 10 mg PO QAM 05/14/23 12/25/23 History buspirone 5 mg tablet 5 mg PO AMHS 08/26/23 12/25/23 History glycopyrrolate 9 mcg-formoterol 1 puff inhalation BID 08/26/23 12/25/23 History 4.8 mcg HFA aerosol inhaler (Bevespi Aerosphere) midodrine 5 mg tablet 10 mg PO 3XWK 08/26/23 12/25/23 History vitamin B complex-vitamin C-folic 1 tab PO 3XWK 08/26/23 12/25/23 History acid 0.8 mg tablet (Izzy-Vianney) apixaban 2.5 mg tablet (Eliquis) 2.5 mg PO BID #60 tabs 08/29/23 12/25/23 Rx ipratropium 0.5 mg-albuterol 3 mg 3 ml NEB Q4 PRN Wheezing 10/31/23 12/25/23 History (2.5 mg base)/3 mL nebulization soln calcium acetate(phosphat bind) 667 1,334 mg PO TIDWMEAL 11/10/23 12/25/23 History mg capsule lorazepam 0.5 mg tablet 0.5 mg PO DIRECTED 11/10/23 12/25/23 History albuterol sulfate 2.5 mg/3 mL 2.5 mg continuous nebulization Q6 12/25/23 12/25/23 History (0.083 %) solution for nebulization PRN Wheezing albuterol sulfate 90 mcg/actuation 2 puff inhalation Q4 PRN Wheezing 12/25/23 12/25/23 History aerosol inhaler metoprolol tartrate 25 mg tablet 25 mg PO BID 12/25/23 12/25/23 History Patient History Medical History Multifocal pneumonia History of DVT (deep vein thrombosis) Left renal mass Pneumonia due to COVID-19 virus Urinary frequency Hx of blood clots "IN MY LEGS AND 1 IN MY LUNGS A LONG TIME AGO">WAS ON BLOOD THINNERS, CAUSED BY PHLEBITIS History of COVID-19 02/02/22>STILL HAS FATIGUE Adjustment disorder with mixed disturbance of emotions and conduct History of basal cell carcinoma Carotid stenosis, right 50-69% stenosis to right ICA; <50% stenosis to left ICA per 06/22/21 carotid duplex History of stroke 2017 OR 2018 >NO RESIDUAL History of NV (myocardial infarction) 1998 MOLLY and COPD overlap syndrome WEARS 4L O2 AT HS Prediabetes PT DENIES Renal osteodystrophy Papillary renal cell carcinoma WITH MALIGNANCY>NO TREATMENT YET (CURRENT DX) Surgical History History of anesthesia reaction SLOW TO WAKE UP History of arthroscopy LEFT KNEE History of colonoscopy History of tooth extraction History of tonsillectomy History of cataract surgery RT/LEFT History of cholecystectomy History of appendectomy History of heart artery stent 1998>? # STENTS PLACED IN [facility] (FOLLWED BY DR. JACK SOUSA [facility]) Family History Other Colorectal cancer No family history of adverse response to anesthesia Social History Smoking Status: Former smoker Second Hand Exposure: No; Do You Dip or Chew Tobacco: No; Hx Alcohol Use: No Hx Substance Use: No Preferred Language: [place] Communication Ability: Effective Communication Tools: Other Radiation Officer Required: No Beliefs That Will Affect Care: None Current Living Situation: Spouse Feels Safe at Home: Yes Safety Concerns: Feels Safe At This Time Assistive Devices: Cane, Oxygen - Continuous and Walker Review of Systems Review of Systems: All systems reviewed & are unremarkable except as noted in HPI & below Physical Exam Constitutional: WD/WN, vitals as above + ill appearing (chronically), + morbidly obese, cooperative and comfortable; not in distress Respiratory: normal respiratory effort Auscultation: + diminished lung sounds and + crackles Cardiovascular: Rate/Rhythm: + irregularly irregular Vessels: radial pulses present Extremities: + edema and + AV fistula (RUE AVF + thrill/bruit) RUE cephalic V is tortuous, but strong thrill throughout. Basilic V strong thrill. Gastrointestinal (Abdomen): Inspection/Auscultation: abdomen normal to inspection Percussion/Palpation: abdomen nontender Musculoskeletal: no cyanosis or clubbing, extremities motor strength 5/5 Skin: no rashes, warm and dry (RUE soft ecchymosis) Neurologic: moves all extremities and awake; no focal motor deficits and not confused Psychiatric: A+Ox3, euthymic affect Results & Data Vital Signs (Past 12 Hours) Vital Signs Temp Pulse Pulse Resp BP Pulse Ox O2 Del Method 12/30/23 07:55 Nasal Cannula 12/30/23 07:52 36.4 C L 77 18 154/81 H 99 Nasal Cannula 12/30/23 07:08 78 16 99 Nasal Cannula 12/30/23 03:01 36.3 C L 77 20 148/74 H 97 Nasal Cannula 12/30/23 00:22 78 12/29/23 22:50 36.3 C L 78 16 135/73 95 Nasal Cannula O2 Flow Rate 12/30/23 07:55 4 12/30/23 07:52 3 12/30/23 07:08 4 12/30/23 03:01 4 12/30/23 00:22 12/29/23 22:50 4
[2023-12-30 09:10] LABS: BUN Creatinine Ratio 10.9 (10-20); Calcium 8.2 mg/dl (8.6-10.3); Creatinine Clr Calc Pharmacy 7.3 ml/min; Potassium 5.2 mmol/L (3.5-5.1)
--- NOTE | 2023-12-30 10:13 | Nephrology Progress Note ---
Date of Service December 30, 2023 Assessment & Plan (1) Hyperkalemia: Plan: K is 5.2 today down from 6.6 on admission. - to be dialyzed today for 4hrs and increased dialysate flow to 700. - stop Veltassa for now. (2) AV fistula: Plan: some issues w/ AV fistula cannulation last week as OP. Patient was seen by vascular and planned for ultrasound (3) Atrial fibrillation with RVR: Plan: - RATE controlled now. Cardiology on board (4) End-stage renal disease (ESRD): Plan: chronic volume overload in setting of progressive restrictive lung disease, chronic hypoxic resp failure and now atrial fibrillation w/ RVR -3litre UF today as tolerated -continue low dose midodrine w/ HD (5) Anemia of chronic renal failure: Plan: transfusion dependent; no ASHLI d/t active renal cell CA; Admission and Anticipated Discharge Date Admission Date: December 25, 2023 Subjective Patient seen and examined while on dialysis. No SOB. he is on chronic oxygen. Review of Systems Review of Systems: All other systems were reviewed and negative except as noted in HPI Physical Exam Physical Exam: General exam: Appears comfortable, no acute distress. on oxygen NC HEENT: Pupils are equal and reactive to light Neck: No JVD, neck is supple trachea is midline Respiratory system: Clear breath sounds bilaterally. Gastrointestinal: Abdomen is soft, non distended, non tender, bowel sounds are present CVS: Regular rate and rhythm. No murmurs, rubs or gallops Musculoskeletal: No joint or muscle tenderness Extremities: Non tender, no edema, peripheral pulses are present Neuro: Oriented, no tremors, no focal neurological deficits Skin: No rashes Results & Data Vital Signs (Past 12 Hours) Vital Signs Temp Pulse Pulse Resp BP Pulse Ox O2 Del Method 12/30/23 09:05 36.4 C L 79 12/30/23 07:55 Nasal Cannula 12/30/23 07:52 36.4 C L 77 18 154/81 H 99 Nasal Cannula 12/30/23 07:08 78 16 99 Nasal Cannula 12/30/23 03:01 36.3 C L 77 20 148/74 H 97 Nasal Cannula 12/30/23 00:22 78 12/29/23 22:50 36.3 C L 78 16 135/73 95 Nasal Cannula O2 Flow Rate 12/30/23 09:05 12/30/23 07:55 4 10/14/24 07:52 3 12/30/23 07:08 4 12/30/23 03:01 4 12/30/23 00:22 12/29/23 22:50 4 Laboratory Results Laboratory Results - last 24 hr 12/30/23 12/30/23 12/30/23 07:56 09:50 09:52 Sodium 135 L Potassium 5.2 H Chloride 97 L Carbon Dioxide 22 Anion Gap 16 H BUN 85 H D Pending Pending Creatinine 7.83 H* D Est Cr Clr Drug Dosing 7.3 eGFR 6.32 BUN/Creatinine Ratio 10.9 Glucose 109 H Calcium 8.2 L 12/30/23 09:54 Sodium Potassium Chloride Carbon Dioxide Anion Gap BUN Pending Creatinine Est Cr Clr Drug Dosing eGFR BUN/Creatinine Ratio Glucose Calcium
--- NOTE | 2023-12-30 14:41 | Discharge Summary ---
Discharge Summary Date of Service December 30, 2023 Principal Dx & Hospital Course #1 = Principal Diagnosis (1) Atrial flutter with rapid ventricular response: (2) Chronic hypoxemic respiratory failure: (3) COPD with exacerbation: (4) Pressure injury of buttock, stage 1: (5) End-stage renal disease (ESRD): (6) Anemia of chronic renal failure: (7) Dyslipidemia: (8) Coronary artery disease: (9) History of DVT (deep vein thrombosis): Plan Mr Pinedo is an 83 year old male with a complex medical history including CAD s/p stent, ESRD with recent HD start, O2 dependent COPD, MOLLY, HTN, prior CVA with right weakness, prediabetes, 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 Per daughter, patient went to Cardiology appointment without his oxygen therapy, likely precipitated a fib/flutter RVR and exacerbation as he was last well known that morning Patient initially improved with 12.5mg metoprolol qid however, complicated by intradialytic hemodynamic instability. On 12/26, patient back into rates of 130- 150s. Cardiology following closely with implementation of regimen to aid in holding bp stable while addressing hr. Patient poor candidate for antiarrhythmic (amiodarone) therapies given multiple complex comorbidities. Patient tolerated session 12/27 with HD and stable HR; however, patient with continued issues with AVF pressures as OP therefore plan for vascular consult come 12/29 Vascular evaluated on 12/29 and recommended US. Patient agitated and stopped HD short this morning and states he will leave no matter what today. Patient agreed to home health being coordinated and to presenting to his regularly scheduled HD. HH will show up on Saturday. Medications sent to pharmacy. Discussions had with daughter, , grandson, and son in law extensively. Patient declines any further time in hospital. On day of discharge, patient states that he is stable from a respiratory status and at his baseline, denies any new concerns, and reports he misses his and "hates being here." Plan for medication changes explained thoroughly to patient. #AVF malfunction Per nephrology : "AV fistula cannulation last week as OP >> stuck x 5 last weekend; issues on both treatments here in house >> venous pressures quite elevated on tx yesterday and today and needles quite close to one another" Consult for vascular placed 2/2 malfunctioning AVF -Will discuss if need for temp cath must be placed with nephrology Vascular evaluated: US to be ordered of fistula, will need to follow up Nephrology " Cephalic V is somewhat redundant/tortuous in midportion, careful cannulation recommended to avoid infiltration. Discussed with inpt HD unit, they state pt has elevated venous pressures with a distal venous cannulation, but not with a more proximal venous cannulation. Regardless, would keep needles adequate distance to avoid recirculation. " #Hyperkalemia iso suboptimal HD sessions stop valtessa per nephrology #Positive blood culture 03/21 positive at this time with staph epi. likely contaminate CTM #Atrial fibrillation/flutter with RVR #Liable blood pressure suspect likely in relation to noncompliance with Oxygen (daughter reports patient presented to cardiology appointment with out O2) rapid rates s/p HD on 12/26 Cardiology consulted, reviewed recommendations Transitioned to Metoprolol tartrate 50mg BID Continue newly started midodrine 2.5mg TID Continue newly started diltiazem 30mg daily -Continue low dose eliquis Continue to monitor on tele Dispo plan: On days of hemodialysis, replaced the 2.5 mg midodrine dose with 10 mg before dialysis session On days of dialysis, take diltiazem 30 mg in the morning. Hold a.m. dose of metoprolol. Take metoprolol tartrate 50 mg in the evening on dialysis days. 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 [employer] respiratory panel negative/ CXR without infiltrate Now at baseline, procal 0.74, mrsa neg completed course abx completed IV [id number], continue mucinex, flutter valve at home to keep secretions thin continue home inhalers #Pressure injury of buttock, stage 1: Wound nurse consult: resolved # End-stage renal disease (ESRD): #Anemia of chronic renal failure: On HD on , Sat Nephrology consult for assistance in HD and volume status Continue home renal vitamins Continue midodrine prior to HD H&H stable #Dyslipidemia: Continue atorvastatin #Coronary artery disease: S/P Stent Denies CP Continue atorvastatin #History of DVT (deep vein thrombosis): Continue Daksha Notes For Next Care Provider Evaluated by Vascular Cephalic V is somewhat redundant/tortuous in midportion, careful cannulation recommended to avoid infiltration. Discussed with inpt HD unit, they state pt has elevated venous pressures with a distal venous cannulation, but not with a more proximal venous cannulation. Regardless, would keep needles adequate distance to avoid recirculation. Needs follow up regarding US of fistula Medication Changes From Visit Increased metoprolol tartrate to 50 mg twice daily Continue diltiazem 30 mg daily in the morning. Continue midodrine 2.5 mg 3 times daily daily On days of hemodialysis, replace the dose of 2.5 mg midodrine dose before dialysis with 10 mg midodrine On days of hemodialysis, take diltiazem 30 mg in the morning. Hold morning dose of metoprolol. Take metoprolol tartrate 50 mg in the evening on dialysis days. Please take Mucinex two times a day to help keep secretions thin and aid in clearance with cough. Please continue all other home medications as prescribed. You MUST wear oxygen at all times, even a "short walk" without your oxygen can be very stressful on your heart, which can set off a cascade of fast rates leading to readmission. Admission HPI Per Admitting Provider Patient is 83-year-old male with PMH CAD s/p stent, ESRD on HD, chronic hypoxemic respiratory failure on 4 L oxygen, COPD, HLD, depression and others listed below presented to ER with c/o tachycardia. Recent hospitalization 10/31/2023-11/06/2023 for A-fib RVR, volume overload and volume status controlled with HTN torsemide by nephrology. His metoprolol was increased to 50 mg twice daily however after discharge patient was having low BP with dialysis so it was then changed to 25mg BID per patient. Patient states was feeling well today. He had scheduled cardiology outpatient appointment. He is on 4 L oxygen chronically. He states he walked into office without his oxygen. Upon intake he was found patient's pulse ox was 86% on room air and found to have pulse of 140 and EKG consistent with atrial flutter with rapid ventricular response. Patient states during the walk in to the office he was having some chest tightness but didn't notice palpitations, SOB, dizziness. He was referred to ER. Patient reports chronic cough but states yesterday coughing more and some yellow phlegm. Makes very little urine. He is due for HD tomorrow and states his BLE edema always increased prior to dialysis. He states has redness to buttocks from sitting and doesn't think has open wound at this time. Denies fever/chills, diaphoresis, N/V/D/C, [place], dizziness, syncope, sore throat, rhinorrhea, abdominal pain, paresthesias, extremity weakness, hematuria. Admission Exam Per Admitting Provider General: no acute distress, chronic ill appearing elderly male, obese Head: normocephalic, atraumatic Eyes: conjunctiva non-injected, anicteric ENT: normal inspection external ears, nose, mucous membranes moist Neck: supple, trachea midline Lungs: no respiratory distress on current 4L via NC with O2 sat 95%, +whe ezing/rhonchi CV: irregularly irregular, rate 98, 2+ pretibial edema Abd: normal BS, soft, non-tender Ext: no cyanosis, no calf tenderness Neuro: A&O x 3, no focal deficits noted, normal affect Skin: warm, dry, buttocks with nonblanching redness Discharge Exam Constitutional WD/WN, vitals as above Respiratory diminished bibasilar,, however no wheezing noted Cardiovascular irrregular Musculoskeletal no cyanosis or clubbing, extremities motor strength 5/5 Updated Medication List Medication Instructions Recorded Confirmed Type venlafaxine 37.5 mg 37.5 mg PO DAILY 02/01/22 12/25/23 History capsule,extended release 24 hr (Effexor XR) nitroglycerin 0.4 mg sublingual 0.4 mg sublingual UD PRN Chest Pain 05/14/23 12/25/23 History tablet (Nitrostat) rosuvastatin 10 mg tablet 10 mg PO QAM 05/14/23 12/25/23 History buspirone 5 mg tablet 5 mg PO AMHS 08/26/23 12/25/23 History glycopyrrolate 9 mcg-formoterol 1 puff inhalation BID 08/26/23 12/25/23 History 4.8 mcg HFA aerosol inhaler (Bevespi Aerosphere) midodrine 5 mg tablet 10 mg PO 3XWK 08/26/23 12/25/23 History vitamin B complex-vitamin C-folic 1 tab PO 3XWK 08/26/23 12/25/23 History acid 0.8 mg tablet (Izzy-Vianney) apixaban 2.5 mg tablet (Eliquis) 2.5 mg PO BID #60 tabs 08/29/23 12/25/23 Rx ipratropium 0.5 mg-albuterol 3 mg 3 ml NEB Q4 PRN Wheezing 10/31/23 12/25/23 History (2.5 mg base)/3 mL nebulization soln calcium acetate(phosphat bind) 667 1,334 mg PO TIDWMEAL 11/10/23 12/25/23 History mg capsule lorazepam 0.5 mg tablet 0.5 mg PO DIRECTED 11/10/23 12/25/23 History albuterol sulfate 2.5 mg/3 mL 2.5 mg continuous nebulization Q6 12/25/23 12/25/23 History (0.083 %) solution for nebulization PRN Wheezing albuterol sulfate 90 mcg/actuation 2 puff inhalation Q4 PRN Wheezing 12/25/23 12/25/23 History aerosol inhaler diltiazem HCl 30 mg tablet 30 mg PO DAILY 30 days #30 tabs 12/30/23 Rx guaifenesin 600 mg tablet, 600 mg PO Q12 #60 tabs 12/30/23 Rx extended release 12 hr (Mucinex) metoprolol tartrate 50 mg tablet 50 mg PO BID 30 days #60 tabs 12/30/23 Rx midodrine 2.5 mg tablet 2.5 mg PO TID@0800,1200,1700 30 12/30/23 Rx days #90 tabs Hospital Stay Data Consultations 12/25/23 18:17 ED Decision to Admit Stat 12/25/23 20:56 Consult Cardiology Routine 12/26/23 07:00 Consult Nephrology Routine 12/28/23 14:07 Consult Vascular Surgery Routine Diagnostic Imagining Performed 12/30/23 08:39 US hemodialysis fistula Routine Pending Results Patient Have Any Pending Studies at Discharge: No Discharge Instructions Given to Patient (Per Discharging Provider) You were sent to the hospital due to abnormal heart rhythm with rapid rates, also called atrial flutter with rapid ventricular rates. You course was complicated due to low blood pressures in dialysis. You were also noted to have a COPD exacerbation and completed a course of steroids and antibiotics while admitted. The following regimen has been set for you for your heart rates and to help keep your pressure up: Increased metoprolol tartrate to 50 mg twice daily Start diltiazem 30 mg daily in the morning. Start midodrine 2.5 mg 3 times daily daily Continue midodrine 10mg before dialysis (hold 2.5mg prior to HD) On days of hemodialysis, replace the dose of 2.5 mg midodrine dose before dialysis with 10 mg midodrine On days of hemodialysis, take diltiazem 30 mg in the morning. Hold morning dose of metoprolol. Take metoprolol tartrate 50 mg in the evening on dialysis days. Please take Mucinex two times a day to help keep secretions thin and aid in clearance with cough. Please continue all other home medications as prescribed. You MUST wear oxygen at all times, even a "short walk" without your oxygen can be very stressful on your heart, which can set off a cascade of fast rates leading to readmission. You will be set up with Home Health who will assist in medication management and pill box filling. Total Time Total Time Spent Total Time Spent (In Minutes): 65
[2023-12-30 15:34] VITALS: BP 146/76; TEMP 97.3; O2SAT 98
--- NOTE | 2023-12-30 15:55 | Ultrasound Report ---
US hemodialysis fistula CLINICAL HISTORY: malfunctioning avf TECHNIQUE: Right fistula real-time vascular ultrasound with Color Doppler imaging. COMPARISON: None available at the time of this dictation. FINDINGS: Satisfactory appearance of the fistula with normal anterograde flow. maximum velocity is 194 cm/s. Fi stula measures 8 mm in length and the wall measures 5 mm in thickness. Impression: Patent flow in the fistula. Minimal thickening of the fistula wall. ACT 112: Negative or not required by law. Electronically signed by: Elio Pacheco M.D. 12/30/2023 3:54 PM
[2023-12-30 15:59] VITALS: PULSE 88
== END 2023-12-30 18:00 | disposition home health service (06) | DRG 308 ==
LOC: ED 16:32 → 2S 18:41 → SUATTDRO 18:41 → 2S 20:05

== ENCOUNTER 2024-01-10 09:28 | Inpatient (IN) ==
--- NOTE | 2024-01-10 09:47 | Emergency Department Note ---
Impression & Plan Acute on chronic respiratory failure with hypoxia and hypercapnia, End-stage renal disease (ESRD), Hyperkalemia, GIB (gastrointestinal bleeding), Pneumonia, Volume overload ED Provider Note NAME: TANISHA KINNEY AGE: 83 SEX: M : 1940 ARRIVES VIA: Ambulance INFORMANT: Patient, EMS report/nursing report ED PROVIDER(S): Don Snell MD CHIEF COMPLAINT: Fall, weakness, headache MEDICAL DECISION MAKING: Patient presents due to concern for fall that is noted to be short of breath with associated wheezing. IV was established and blood work was obtained. Patient was and also with upper abdominal pain. CT head cervical spine obtained due to concern for fall and head strike yesterday. CT abdomen pelvis performed due to concern for abdominal pain on exam. Hemoccult positive. Patient was ordered type and screen and PPI bolus and drip. Patient was started on BiPAP and DuoNeb treatment given and the patient did receive IV methylprednisolone. I did inform family when they arrived that he did have some likely bloody stool. They report that he has not had a colonoscopy in some time. Family reports that he has been straining to have bowel movements. Patient also has a very limited diet given the concerns for his medical comorbidities. Also on fluid restriction. Patient's blood work shows a white count of 19. The patient was ordered empiric antibiotics along with blood cultures and a lactate. Patient with white count of 17. Patient's hemoglobin of 8. Current potassium is 6.4. Plan of care BSG was in the 120s. The patient was ordered 2 A of D50 10 of insulin IV, albuterol 10 mg DuoNeb treatments as well as calcium chloride 1 g. BioFire negative. Patient's VBG with a pCO2 of 66 and a VBG pH is 7.2. Initial troponin of 33. Pro-Delfin 1.8. Given the patient's ESRD lack of HD yesterday and hyperkalemia I did speak with the on-call museum registrar Dr. Patel stated that they would dialyze him as soon as he got an inpatient room. Patient's CT of the head is negative. CT cervical spine negative. Patient CT abdomen pelvis since partial visualization of atelectasis although cannot rule out pneumonia. No evidence of acute fracture or intraperitoneal injury. Chest x-ray with noted cardiomegaly. I subsequently did speak with the on-call hospitalist DAVID Rodney with her Dr. Angulo. Patient was reassessed and the patient's mentation was appropriate. GCS of 14 opens eyes to voice and does follow commands. Does not appear to be acutely confused at this time. Answers questions appropriately. They. Patient was admitted to the medicine service. Critical Care: I have personally spent 95 minutes of critical care time in direct management of this patient. This includes bedside care, interpretation of diagnostic studies, and testing, discussion with consultants, patient, and family members, and other require inpatient management activities. This 95 minutes is in excess of all separately billable procedures. Discussion w/ other healthcare providers: Dr. Patel with nephrology DAVID Gipson with Dr. Kev Hdez medicine service Prior /Outside records reviewed: None Differential diagnosis: Reactive airway disease, pneumonia, pneumothorax, COPD, CHF, ACS, pulmonary embolism, musculoskeletal, GERD as well as other pathologies were considered. Diagnostics, as interpreted by me: ECG: Likely A-fib, rate of 115 wide QRS, left axis deviation no ST elevations significant motion artifact in V5. Patient's EKG appears grossly unchanged from comparison other than the rate being elevated compared to prior from January 03, 2024 Cardiac monitoring: An order was placed for continuous cardiac monitoring. The monitor shows a rate of 89 with irregular irregular rhythm. Patient was placed on pulse oximetry Medical decision rules: None Imaging studies: I informally interpreted the patient's Chest x-ray shows elevation of right hemidiaphragm with congestion noted also associated left-sided pleural effusion with formal report to follow. HPI: Patient presents due to concern for fall. The patient reports that he was try to get his glasses and fell to his buttocks. Patient presented here as he typically gets his dialysis here. No dialysis this morning. Patient denies any head strike or LOC this morning but states that he did hit his glasses on a door yesterday and has had headaches since. Patient did have a bowel movement upon arrival and nursing/staff was concerned that it was dark in nature. Heme positive. Patient does wear 4 L at all times. Former smoker known history of COPD. The patient has had mild cough. Patient states that he does not have significant shortness of breath at this time. Patient does have some associated abdominal pain but only with palpation. Patient does have a known history of atrial fibs/flutter and is anticoagulated on Eliquis. PAST MEDICAL HISTORY: See Below PAST SURGICAL HISTORY: See Below SOCIAL HISTORY: See Below HOME MEDICATIONS: See Below ALLERGIES: See Below VITALS: See Below PHYSICAL EXAMINATION: GENERAL: Mildly ill in appearance, mild distress. Mild tachypnea. EYE EXAM: Normal conjunctiva. PERRL, no anisocoria and EOM's grossly intact w/o pain. Head: Small abrasion of the nasal bridge, no obvious deformity, no pain to the posterior scalp. OROPHARYNX: Moist mucus membranes, grossly normal dentition. NECK: Trachea midline, no stridor. No midline C-spine TTP. LUNGS: Diffuse wheezes throughout. Mild tachypnea noted. Shallow breathing. HEART: Irregular irregular, no MRG. ABDOMEN: Abdomen soft, non-tender, no masses, no rebound or guarding. BACK: No CVA TTP. SKIN: No rashes and no bruising. UPPER EXTREMITIES: Right upper extremity AV fistula with bandage in place with palpable thrill. LOWER EXTREMITIES: Grossly normal, no edema. No TTP or deformity able to raise both legs off the bed. NEURO EXAM: GCS 14, opens eyes to voice follows basic commands, cranial nerves II-XII grossly intact, normal speech, moves all 4 extremities. Past Med/Surg History Problem List (Updated 01/10/24 @ 16:44 by Don Snell MD) Volume overload (Acute) Pneumonia (Acute) GIB (gastrointestinal bleeding) (Acute) Hyperkalemia (Acute) End-stage renal disease (ESRD) (Acute) Acute on chronic respiratory failure with hypoxia and hypercapnia (Acute) History of DVT (deep vein thrombosis) MOLLY (obstructive sleep apnea) Atrial fibrillation/flutter Hypotension GI bleed Acute respiratory acidosis COPD (chronic obstructive pulmonary disease) (Acute) Chest pain (Acute) End-stage renal disease on hemodialysis (Acute) Atrial flutter with rapid ventricular response (Acute) Bifascicular bundle branch block AV fistula Hyperkalemia Pressure injury of buttock, stage 1 Atrial flutter with rapid ventricular response Open thigh wound Acute on chronic diastolic HF (heart failure) Hypercarbia (Acute) Acute hyponatremia (Acute) Edema (Acute) Shortness of breath (Acute) New onset atrial fibrillation Acute on chronic respiratory failure with hypoxia and hypercapnia Atrial fibrillation with RVR (Acute) Hypersomnolent Restrictive lung disease Chronic pulmonary aspiration Volume overload (Acute) End-stage renal disease (ESRD) (Acute) COPD with exacerbation (Acute) Dyslipidemia BPH (benign prostatic hyperplasia) Coronary artery disease S/p stent 1998 HTN (hypertension) Chronic hypoxemic respiratory failure (Acute) Anemia of chronic renal failure Hgb 8-9's per record review COPD (chronic obstructive pulmonary disease) Medical History Multifocal pneumonia Left renal mass Pneumonia due to COVID-19 virus Urinary frequency Hx of blood clots "IN MY LEGS AND 1 IN MY LUNGS A LONG TIME AGO">WAS ON BLOOD THINNERS, CAUSED BY PHLEBITIS History of COVID-19 02/02/22>STILL HAS FATIGUE Adjustment disorder with mixed disturbance of emotions and conduct History of basal cell carcinoma Carotid stenosis, right 50-69% stenosis to right ICA; <50% stenosis to left ICA per 06/22/21 carotid duplex History of stroke 2017 OR 2017 >NO RESIDUAL History of DC (myocardial infarction) 1998 MOLLY and COPD overlap syndrome WEARS 4L O2 AT HS Prediabetes PT DENIES Renal osteodystrophy Papillary renal cell carcinoma WITH MALIGNANCY>NO TREATMENT YET (CURRENT DX) Surgical History History of anesthesia reaction SLOW TO WAKE UP History of arthroscopy LEFT KNEE History of colonoscopy History of tooth extraction History of tonsillectomy History of cataract surgery RT/LEFT History of cholecystectomy History of appendectomy History of heart artery stent 1998>? # STENTS PLACED IN [facility] (FOLLWED BY DR. 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 Required: No Beliefs That Will Affect Care: None Current Living Situation: Spouse Other Information That Helps Us Care for You: No Feels Safe at Home: Yes Safety Concerns: Feels Safe At This Time Assistive Devices: Cane, Oxygen - Continuous and Walker Allergies Allergies Allergy/AdvReac Type Severity Reaction Status Date / Time lorazepam AdvReac Intermediate Hallucinati Verified 11/10/23 19:09 ng/Confusio n Home Meds Home Medications Medication Instructions Recorded Confirmed venlafaxine 37.5 mg 37.5 mg PO DAILY 02/01/22 01/10/24 capsule,extended release 24 hr (Effexor XR) nitroglycerin 0.4 mg sublingual 0.4 mg sublingual UD PRN Chest Pain 05/14/23 01/10/24 tablet (Nitrostat) rosuvastatin 10 mg tablet 10 mg PO QAM 05/14/23 01/10/24 buspirone 5 mg tablet 5 mg PO AMHS 08/26/23 01/10/24 glycopyrrolate 9 mcg-formoterol 1 puff inhalation BID 08/26/23 01/10/24 4.8 mcg HFA aerosol inhaler (Bevespi Aerosphere) vitamin B complex-vitamin C-folic 1 tab PO 3XWK 08/26/23 01/10/24 acid 0.8 mg tablet (Izzy-Vianney) ipratropium 0.5 mg-albuterol 3 mg 3 ml NEB Q4 PRN Wheezing 10/31/23 01/10/24 (2.5 mg base)/3 mL nebulization soln calcium acetate(phosphat bind) 667 1,334 mg PO TIDWMEAL 11/10/23 01/10/24 mg capsule lorazepam 0.5 mg tablet 0.5 mg PO DIRECTED 11/10/23 01/10/24 albuterol sulfate 2.5 mg/3 mL 2.5 mg continuous nebulization Q6 12/25/23 01/10/24 (0.083 %) solution for nebulization PRN Wheezing albuterol sulfate 90 mcg/actuation 2 puff inhalation Q4 PRN Wheezing 12/25/23 01/10/24 aerosol inhaler diltiazem HCl 30 mg tablet 30 mg PO UD 01/10/24 01/10/24 metoprolol tartrate 50 mg tablet 50 mg PO UD 01/10/24 01/10/24 Previous Rx's Medication Instructions Recorded apixaban 2.5 mg tablet (Eliquis) 2.5 mg PO BID #60 tabs 08/29/23 guaifenesin 600 mg tablet, 600 mg PO Q12 #60 tabs 12/30/23 extended release 12 hr (Mucinex) midodrine 2.5 mg tablet 2.5 mg PO TID@0800,1200,1700 30 12/30/23 days #90 tabs midodrine 10 mg tablet 10 mg PO 3XWK PRN before dialysis 01/01/24 #30 tabs Results & Data (ED) Vital Signs Vital Signs - 24 hr 01/10/24 09:36 01/10/24 09:39 01/10/24 09:50 Temperature 37.0 C Temperature Source Oral Pulse Rate 90 94 H Pulse Rate [Apical] Pulse Rate from SpO2 Sensor 101 H Respiratory Rate 20 24 Respiratory Effort / Characteristics Spontaneous Labored Short of Breath Respiratory Depth Normal Respiratory Pattern Regular Blood Pressure 104/64 104/64 Blood Pressure [Left Arm] Blood Pressure Mean 68 77 Blood Pressure Mean [Left Arm] Blood Pressure Position Lying Blood Pressure Position [Left Arm] Pulse Oximetry 91 98 Oxygen Delivery Method Nasal Cannula Oxygen Flow Rate 4 Fraction of Inspired Oxygen Sepsis New/Unexplained Change in Mental Status N/A Sepsis Action Taken by Nursing No Action Required 01/10/24 10:05 01/10/24 10:07 01/10/24 10:07 Temperature Temperature Source Pulse Rate 102 H 87 Pulse Rate [Apical] 86 Pulse Rate from SpO2 Sensor 92 H Respiratory Rate 25 H 22 28 H Respiratory Effort / Characteristics Spontaneous Spontaneous Accessory Muscle Use Respiratory Depth Normal Respiratory Pattern Blood Pressure Blood Pressure [Left Arm] Blood Pressure Mean Blood Pressure Mean [Left Arm] Blood Pressure Position Blood Pressure Position [Left Arm] Pulse Oximetry 100 93 93 Oxygen Delivery Method BiPAP Oxygen Flow Rate Fraction of Inspired Oxygen 50 50 Sepsis New/Unexplained Change in Mental Status Sepsis Action Taken by Nursing 01/10/24 10:44 01/10/24 10:46 01/10/24 10:46 Temperature Temperature Source Pulse Rate 87 Pulse Rate [Apical] 99 H Pulse Rate from SpO2 Sensor Respiratory Rate 25 H 25 H Respiratory Effort / Characteristics Respiratory Depth Normal Respiratory Pattern Blood Pressure 114/76 Blood Pressure [Left Arm] 114/76 Blood Pressure Mean 88 Blood Pressure Mean [Left Arm] 88 Blood Pressure Position Blood Pressure Position [Left Arm] Lying Pulse Oximetry 98 Oxygen Delivery Method BiPAP Oxygen Flow Rate Fraction of Inspired Oxygen Sepsis New/Unexplained Change in Mental Status Sepsis Action Taken by Nursing 01/10/24 11:08 01/10/24 11:44 01/10/24 11:51 Temperature Temperature Source Pulse Rate 89 97 H Pulse Rate [Apical] 91 H Pulse Rate from SpO2 Sensor 87 84 Respiratory Rate 25 H 22 21 Respiratory Effort / Characteristics Spontaneous Respiratory Depth Respiratory Pattern Blood Pressure Blood Pressure [Left Arm] Blood Pressure Mean Blood Pressure Mean [Left Arm] Blood Pressure Position Blood Pressure Position [Left Arm] Pulse Oximetry 100 97 96 Oxygen Delivery Method BiPAP Oxygen Flow Rate Fraction of Inspired Oxygen 50 Sepsis New/Unexplained Change in Mental Status Sepsis Action Taken by Nursing 01/10/24 11:51 01/10/24 11:57 01/10/24 12:00 Temperature Temperature Source Pulse Rate 83 Pulse Rate [Apical] Pulse Rate from SpO2 Sensor 80 Respiratory Rate 24 Respiratory Effort / Characteristics Respiratory Depth Respiratory Pattern Blood Pressure 113/71 133/94 Blood Pressure [Left Arm] Blood Pressure Mean 82 111 Blood Pressure Mean [Left Arm] Blood Pressure Position Blood Pressure Position [Left Arm] Pulse Oximetry 98 Oxygen Delivery Method BiPAP Oxygen Flow Rate Fraction of Inspired Oxygen Sepsis New/Unexplained Change in Mental Status Sepsis Action Taken by Nursing 01/10/24 12:06 01/10/24 12:11 01/10/24 12:26 Temperature Temperature Source Pulse Rate 84 90 91 H Pulse Rate [Apical] Pulse Rate from SpO2 Sensor 84 Respiratory Rate 22 Respiratory Effort / Characteristics Respiratory Depth Respiratory Pattern Blood Pressure Blood Pressure [Left Arm] Blood Pressure Mean Blood Pressure Mean [Left Arm] Blood Pressure Position Blood Pressure Position [Left Arm] Pulse Oximetry 99 99 Oxygen Delivery Method BiPAP BiPAP Oxygen Flow Rate Fraction of Inspired Oxygen Sepsis New/Unexplained Change in Mental Status Sepsis Action Taken by Nursing 01/10/24 12:30 01/10/24 12:57 01/10/24 13:00 Temperature Temperature Source Pulse Rate 89 98 H Pulse Rate [Apical] Pulse Rate from SpO2 Sensor 88 Respiratory Rate 21 27 H Respiratory Effort / Characteristics Respiratory Depth Respiratory Pattern Blood Pressure 149/84 H Blood Pressure [Left Arm] Blood Pressure Mean 103 Blood Pressure Mean [Left Arm] Blood Pressure Position Blood Pressure Position [Left Arm] Pulse Oximetry 98 Oxygen Delivery Method Oxygen Flow Rate Fraction of Inspired Oxygen Sepsis New/Unexplained Change in Mental Status Sepsis Action Taken by Nursing 01/10/24 13:06 01/10/24 13:30 01/10/24 13:31 Temperature Temperature Source Pulse Rate 91 H 82 Pulse Rate [Apical] Pulse Rate from SpO2 Sensor 88 83 Respiratory Rate 24 20 Respiratory Effort / Characteristics Respiratory Depth Respiratory Pattern Blood Pressure 107/68 Blood Pressure [Left Arm] Blood Pressure Mean 78 Blood Pressure Mean [Left Arm] Blood Pressure Position Blood Pressure Position [Left Arm] Pulse Oximetry 99 96 Oxygen Delivery Method Nasal Cannula Oxygen Flow Rate 6 Fraction of Inspired Oxygen Sepsis New/Unexplained Change in Mental Status Sepsis Action Taken by [facility] Medications Current Medication List: was personally reviewed by me Laboratory Data Attestation: I reviewed the patient's lab results. 01/10/24 15:52 01/10/24 10:05 Lab Results 01/10/24 01/10/24 01/10/24 Range/Units 09:58 09:59 10:04 WBC (4.8-10.8) K/ul RBC (4.70-6.10) M/uL Hgb (14.0-18.0) g/dl Hct (42.0-52.0) % MCV (80.0-100.0) fL MCH (25.0-34.0) pg MCHC (32.0-36.0) g/dL RDW Std Deviation (36.4-46.3) fL RDW Coeff of John (11.5-14.5) % Plt Count (130-400) K/uL MPV (9.4-12.4) fL Immature Gran % (Auto) % Neut % (Auto) % Lymph % (Auto) % Bradley % (Auto) % Eos % (Auto) % Baso % (Auto) % Neut # (Auto) (1.40-6.50) K/uL Lymph # (Auto) (1.20-3.40) K/uL Bradley # (Auto) (0.11-0.59) K/uL Eos # (Auto) (0.00-0.50) K/uL Baso # (Auto) (0.00-0.20) K/uL Immature Gran # (Auto) (0.01-0.20) K/uL PT (9.0-12.0) Seconds INR (0.9-1.1) APTT (21-31) Seconds PTT Ratio VBG pH (7.36-7.41) VBG pCO2 (38-50) mmHg VBG pO2 mmHg VBG HCO3 mmol/L VBG O2 Saturation % VBG Base Excess mEq/L Sodium (136-145) mmol/L Potassium (3.5-5.1) mmol/L Chloride (98-107) mmol/L Carbon Dioxide (21-32) mmol/L Anion Gap (3-11) BUN (6-23) mg/dl Creatinine (0.6-1.4) mg/dl Est Cr Clr Drug Dosing ml/min eGFR BUN/Creatinine Ratio (10-20) Glucose (70-99(Fasting)) mg/dl POC Glucose (70-99) mg/dl Lactate 2.0 (0.4-2.0) mmol/L Calcium (8.6-10.3) mg/dl Magnesium (1.7-2.4) mg/dl Total Bilirubin (0.2-1.0) mg/dl AST (13-39) U/L ALT (7-52) U/L Alkaline Phosphatase (34-104) U/L Troponin I High Sens (0-20) pg/ml Total Protein (6.0-8.3) gm/dl Albumin (3.4-5.0) gm/dl Globulin (2.5-4.0) gm/dl Albumin/Globulin Ratio (0.9-2) Procalcitonin (0-0.5) ng/ml Adenovirus (PCR) Not Detected (NotDetected) B. pertussis DNA (PCR) Not Detected (NotDetected) B.parapertussis DNA PCR Not Detected (NotDetected) C. pneumoniae DNA (PCR) Not Detected (NotDetected) Coronavirus OC43 (PCR) Not Detected (NotDetected) Coronavirus HKU1 (PCR) Not Detected (NotDetected) Coronavirus 229E (PCR) Not Detected (NotDetected) SARS-CoV-2 (PCR) Not Detected (NotDetected) Coronavirus NL63 (PCR) Not Detected (NotDetected) Human Metapneumovir PCR Not Detected (NotDetected) Influenza Type A (PCR) Not Detected (NotDetected) Influenza Type B (PCR) Not Detected (NotDetected) M. pneumoniae (PCR) Not Detected (NotDetected) Parainfluenza 1 (PCR) Not Detected (NotDetected) Parainfluenza 2 (PCR) Not Detected (NotDetected) Parainfluenza 3 (PCR) Not Detected (NotDetected) Parainfluenza 4 (PCR) Not Detected (NotDetected) RSV (PCR) Not Detected (NotDetected) Entero/Rhino (PCR) Not Detected (NotDetected) Blood Type O Negative Antibody Screen NEGATIVE 01/10/24 01/10/24 01/10/24 Range/Units 10:05 10:10 12:52 WBC 19.21 H (4.8-10.8) K/ul RBC 2.79 L (4.70-6.10) M/uL Hgb 8.0 L (14.0-18.0) g/dl Hct 26.6 L (42.0-52.0) % MCV 95.3 (80.0-100.0) fL MCH 28.7 (25.0-34.0) pg MCHC 30.1 L (32.0-36.0) g/dL RDW Std Deviation 59.3 H (36.4-46.3) fL RDW Coeff of John 17.2 H (11.5-14.5) % Plt Count 170 (130-400) K/uL MPV 10.6 (9.4-12.4) fL Immature Gran % (Auto) 0.7 % Neut % (Auto) 88.9 % Lymph % (Auto) 1.5 % Bradley % (Auto) 8.7 % Eos % (Auto) 0.1 % Baso % (Auto) 0.1 % Neut # (Auto) 17.08 H (1.40-6.50) K/uL Lymph # (Auto) 0.29 L (1.20-3.40) K/uL Bradley # (Auto) 1.67 H (0.11-0.59) K/uL Eos # (Auto) 0.01 (0.00-0.50) K/uL Baso # (Auto) 0.02 (0.00-0.20) K/uL Immature Gran # (Auto) 0.14 (0.01-0.20) K/uL PT 13.0 H (9.0-12.0) Seconds INR 1.2 H (0.9-1.1) APTT 33 H (21-31) Seconds PTT Ratio 1.2 VBG pH 7.20 L (7.36-7.41) VBG pCO2 66 H (38-50) mmHg VBG pO2 38 mmHg VBG HCO3 26 mmol/L VBG O2 Saturation < 60.0 % VBG Base Excess -2.6 mEq/L Sodium 134 L (136-145) mmol/L Potassium 6.4 H* (3.5-5.1) mmol/L Chloride 92 L (98-107) mmol/L Carbon Dioxide 27 (21-32) mmol/L Anion Gap 15 H (3-11) BUN 97 H (6-23) mg/dl Creatinine 8.84 H* (0.6-1.4) mg/dl Est Cr Clr Drug Dosing 6.7 ml/min eGFR 5.46 BUN/Creatinine Ratio 11.0 (10-20) Glucose 125 H (70-99(Fasting)) mg/dl POC Glucose (70-99) mg/dl Lactate (0.4-2.0) mmol/L Calcium 8.3 L (8.6-10.3) mg/dl Magnesium 2.4 (1.7-2.4) mg/dl Total Bilirubin 0.7 (0.2-1.0) mg/dl AST 25 (13-39) U/L ALT 19 (7-52) U/L Alkaline Phosphatase 48 (34-104) U/L Troponin I High Sens 33.0 H 28.6 H (0-20) pg/ml Total Protein 6.8 (6.0-8.3) gm/dl Albumin 3.7 (3.4-5.0) gm/dl Globulin 3.1 (2.5-4.0) gm/dl Albumin/Globulin Ratio 1.2 (0.9-2) Procalcitonin 1.86 H (0-0.5) ng/ml Adenovirus (PCR) (NotDetected) B. pertussis DNA (PCR) (NotDetected) B.parapertussis DNA PCR (NotDetected) C. pneumoniae DNA (PCR) (NotDetected) Coronavirus OC43 (PCR) (NotDetected) Coronavirus HKU1 (PCR) (NotDetected) Coronavirus 229E (PCR) (NotDetected) SARS-CoV-2 (PCR) (NotDetected) Coronavirus NL63 (PCR) (NotDetected) Human Metapneumovir PCR (NotDetected) Influenza Type A (PCR) (NotDetected) Influenza Type B (PCR) (NotDetected) M. pneumoniae (PCR) (NotDetected) Parainfluenza 1 (PCR) (NotDetected) Parainfluenza 2 (PCR) (NotDetected) Parainfluenza 3 (PCR) (NotDetected) Parainfluenza 4 (PCR) (NotDetected) RSV (PCR) (NotDetected) Entero/Rhino (PCR) (NotDetected) Blood Type Antibody Screen 01/10/24 Range/Units 13:19 WBC (4.8-10.8) K/ul RBC (4.70-6.10) M/uL Hgb (14.0-18.0) g/dl Hct (42.0-52.0) % MCV (80.0-100.0) fL MCH (25.0-34.0) pg MCHC (32.0-36.0) g/dL RDW Std Deviation (36.4-46.3) fL RDW Coeff of John (11.5-14.5) % Plt Count (130-400) K/uL MPV (9.4-12.4) fL Immature Gran % (Auto) % Neut % (Auto) % Lymph % (Auto) % Bradley % (Auto) % Eos % (Auto) % Baso % (Auto) % Neut # (Auto) (1.40-6.50) K/uL Lymph # (Auto) (1.20-3.40) K/uL Bradley # (Auto) (0.11-0.59) K/uL Eos # (Auto) (0.00-0.50) K/uL Baso # (Auto) (0.00-0.20) K/uL Immature Gran # (Auto) (0.01-0.20) K/uL PT (9.0-12.0) Seconds INR (0.9-1.1) APTT (21-31) Seconds PTT Ratio VBG pH (7.36-7.41) VBG pCO2 (38-50) mmHg VBG pO2 mmHg VBG HCO3 mmol/L VBG O2 Saturation % VBG Base Excess mEq/L Sodium (136-145) mmol/L Potassium (3.5-5.1) mmol/L Chloride (98-107) mmol/L Carbon Dioxide (21-32) mmol/L Anion Gap (3-11) BUN (6-23) mg/dl Creatinine (0.6-1.4) mg/dl Est Cr Clr Drug Dosing ml/min eGFR BUN/Creatinine Ratio (10-20) Glucose (70-99(Fasting)) mg/dl POC Glucose 212 H (70-99) mg/dl Lactate (0.4-2.0) mmol/L Calcium (8.6-10.3) mg/dl Magnesium (1.7-2.4) mg/dl Total Bilirubin (0.2-1.0) mg/dl AST (13-39) U/L ALT (7-52) U/L Alkaline Phosphatase (34-104) U/L Troponin I High Sens (0-20) pg/ml Total Protein (6.0-8.3) gm/dl Albumin (3.4-5.0) gm/dl Globulin (2.5-4.0) gm/dl Albumin/Globulin Ratio (0.9-2) Procalcitonin (0-0.5) ng/ml Adenovirus (PCR) (NotDetected) B. pertussis DNA (PCR) (NotDetected) B.parapertussis DNA PCR (NotDetected) C. pneumoniae DNA (PCR) (NotDetected) Coronavirus OC43 (PCR) (NotDetected) Coronavirus HKU1 (PCR) (NotDetected) Coronavirus 229E (PCR) (NotDetected) SARS-CoV-2 (PCR) (NotDetected) Coronavirus NL63 (PCR) (NotDetected) Human Metapneumovir PCR (NotDetected) Influenza Type A (PCR) (NotDetected) Influenza Type B (PCR) (NotDetected) M. pneumoniae (PCR) (NotDetected) Parainfluenza 1 (PCR) (NotDetected) Parainfluenza 2 (PCR) (NotDetected) Parainfluenza 3 (PCR) (NotDetected) Parainfluenza 4 (PCR) (NotDetected) RSV (PCR) (NotDetected) Entero/Rhino (PCR) (NotDetected) Blood Type Antibody Screen Administered Medications Pantoprazole Sodium 40 mg/ (Dextrose) 100 mls @ 20 mls/hr IV Q5H MARCSO Stop: 02/09/24 10:14 Last Admin: 01/10/24 16:30 Dose: 8 mg/hr, 20 mls/hr Documented By: Infusion: 01/10/24 16:30 Dose: Infused Documented By: Admin: 01/10/24 12:04 Dose: 8 mg/hr, 20 mls/hr Documented By: SMITAK Norepinephrine Bitartrate (Levophed/D5w) 4 mg in 250 mls @ 0 mls/hr IV .Q0M MARCOS; Protocol Stop: 02/09/24 14:59 Last Titration: 01/10/24 15:56 Dose: 0 mcg/kg/min, 0 mls/hr Documented By: Admin: 01/10/24 15:03 Dose: 0.05 mcg/kg/min, 18.2 mls/hr Documented By: GPRegina Co-signed By: SRIKANTH Miscellaneous ([facility] Protocol For Hyperglycemia) 1 each N/A ACHS MARCOS Stop: 01/12/24 16:29 Last Admin: 01/10/24 16:30 Dose: 1 each Documented By: GPF Discontinued Medications Albuterol (Albuterol 0.5% Neb Soln 2.5 Mg/0.5 Ml Vial) 10 mg NEB NOW STA Stop: 01/10/24 10:41 Last Admin: 01/10/24 11:44 Dose: 10 mg Documented By: ASHOK Dextrose (Dextrose 50% 50 Ml Syringe) 50 ml IV NOW STA Stop: 01/10/24 10:41 Last Admin: 01/10/24 11:38 Dose: 50 ml Documented By: SMITAK Dextrose (Dextrose 50% 50 Ml Syringe) 50 ml IV NOW STA Stop: 01/10/24 11:03 Last Admin: 01/10/24 11:39 Dose: 50 ml Documented By: SMITAK Diltiazem HCl (Diltiazem Hcl 30 Mg Tab) 30 mg PO NOW ONE Stop: 01/10/24 12:47 Last Admin: 01/10/24 13:06 Dose: 30 mg Documented By: SMITAK Pantoprazole Sodium 80 mg/ (Dextrose) 120 mls @ 480 mls/hr IV NOW ONE Stop: 01/10/24 10:05 Last Infusion: 01/10/24 11:11 Dose: Infused Documented By: Admin: 01/10/24 10:49 Dose: 480 mls/hr Documented By: TNK Calcium Gluconate () 1,000 mg in 60 mls @ 240 mls/hr IV NOW STA Stop: 01/10/24 10:54 Last Infusion: 01/10/24 12:37 Dose: Infused Documented By: Admin: 01/10/24 11:39 Dose: 240 mls/hr Documented By: VALERIE Insulin Human Regular 10 units (/ Syringe) 9.9 mls @ 3 mls/sec IV ONE STA Stop: 01/10/24 10:41 Last Admin: 01/10/24 11:39 Dose: 3 mls/sec Documented By: VALERIE Co-signed By: CESILIA Piperacillin Sod/Tazobactam Sod (Zosyn) 4.5 gm in 100 mls @ 200 mls/hr IV NOW ONE; Protocol Stop: 01/10/24 11:31 Last Infusion: 01/10/24 14:21 Dose: Infused Documented By: Admin: 01/10/24 13:07 Dose: 200 mls/hr Documented By: VALERIE Levalbuterol HCl (Levalbuterol 1.25 Mg/3 Ml Neb) 1.25 mg NEB NOW STA Stop: 01/10/24 09:52 Last Admin: 01/10/24 10:07 Dose: 1.25 mg Documented By: ASHOK Methylprednisolone (Methylprednisolone 125 Mg/2 Ml Vial) 125 mg IV NOW STA Stop: 01/10/24 09:52 Last Admin: 01/10/24 10:49 Dose: 125 mg Documented By: TNK Midodrine (Midodrine Hcl 10 Mg Tab) 10 mg PO NOW STA Stop: 01/10/24 12:29 Last Admin: 01/10/24 13:06 Dose: 10 mg Documented By: VALERIE Miscellaneous (No Heparin In Dialysis) 1 each N/A ONE ONE Stop: 01/10/24 12:41 Last Admin: 01/10/24 15:03 Dose: 1 each Documented By: GPF Pantoprazole Sodium (Pantoprazole Bolus/Drip) 1 each IV NOW STA Stop: 01/10/24 09:52 Last Admin: 01/10/24 15:03 Dose: 1 each Documented By: GPF Imaging Data Radiologist's Impression: Abdomen/Pelvis CT 01/10/24 09:51 CT abd pelvis wo con CLINICAL HISTORY: ab pain TECHNIQUE: Helical axial images of the abdomen and pelvis were obtained. Automated dose lowering techniques and/or adjustment according to patient size were utilized for this exam. This exam was performed without intravenous contrast. COMPARISON: Comparison is made to CT abdomen pelvis 11/10/2023 FINDINGS: Lower chest: Consolidative changes are seen in the bilateral lower lobes likely reflecting atelectasis. Cardiomegaly is seen. Liver: Unremarkable. No focal lesions are seen. Gallbladder and biliary tree: Patient is status post cholecystectomy. No intra- or extrahepatic biliary ductal dilation. Pancreas: Unremarkable, no focal lesions. Spleen: Unremarkable. Adrenals: Unremarkable. Kidneys and ureters: Multiple lesions are seen, some of which are cystic, some of which are greater than simple fluid density. Bladder: Limited evaluation due to underdistention. Reproductive organs: Unremarkable. Bowel: Diverticulosis is seen without evidence of diverticulitis. Lymph nodes Retroperitoneal: Subcentimeter lymph nodes are noted. Pelvic: Unremarkable. Mesenteric: Unremarkable. Peritoneum: Normal. Vessels: Atherosclerotic calcifications are seen. Small infrarenal aortic aneurysms measure up to 26 mm in diameter. Abdominal wall: Unremarkable. Bones: Degenerative changes in the visualized spine. IMPRESSION: 1. No acute abnormality in particular no evidence of acute fracture or intraperitoneal injury. 2. Partial visualization of atelectasis. Superimposed aspiration/pneumonia cannot be excluded. ACT 112: Negative or not required by law. Electronically signed by: Elio Pacheco M.D. 01/10/2024 11:[address] 01/10/24 09:51 CT SCAN OF THE CERVICAL SPINE CLINICAL HISTORY: Trauma. Fall. COMPARISON STUDY: No priors. TECHNIQUE: CT scan of the cervical spine is performed from the skull base to the upper thoracic spine. Images are reviewed in the axial, sagittal, and coronal planes. IV contrast was not administered for this examination. A dose lowering technique was utilized adhering to the principles of ALARA. CT DOSE: 4054.67 mGy.cm FINDINGS: Skeletal structures: The skeletal structures are osteopenic. There is no evidence of fracture or subluxation involving the cervical spine. Vertebral body height is maintained. There is minimal anterolisthesis at C7-T1. Alignment is otherwise preserved. There is straightening of cervical lordosis. Anterior osteophytes are seen throughout. The odontoid process and lateral masses are intact. The atlantoaxial articulation is preserved noting advanced productive degenerative change. The spinous processes appear intact. There is moderate to advanced multilevel cervical spondylosis. Uncovertebral and facet arthropathy contribute to neural foraminal narrowing at most levels. Intervertebral discs: There is moderate to severe disc space narrowing at C3-C4, C4-C5, and C6-C7. Central canal: Posterior disc osteophyte complexes at C4-C5, C5-C6, and C6-C7 may contribute to mild acquired compromise the central canal. Soft tissues: The prevertebral and paraspinous soft tissues are within normal limits. There is atherosclerotic calcification of the carotid bulbs. Calvarium: The visualized calvarium at the skull base appears intact. There is atherosclerotic calcification of the cavernous carotid arteries. Brain parenchyma: Partially visualized brain parenchyma at the skull base is within normal limits. Sinuses and mastoids: The visualized paranasal sinuses are clear. The mastoid air cells are well pneumatized. Lung apices: Clear as visualized. IMPRESSION: 1. There is no evidence of fracture or subluxation involving the cervical spine. 2. Osteopenia and spondylotic change as above. ACT 112: Negative or not required by law. Electronically signed by: Trace Rizzo M.D. 01/10/2024 11:00 AM Chest X-Ray 01/10/24 09:51 XR chest 1V portable CLINICAL HISTORY: Dyspnea TECHNIQUE: Single frontal radiograph of the chest was obtained. Comparison: Comparison is made to chest radiographs 01/03/2024 FINDINGS: No lines and tubes are seen. Cardiomegaly is noted. The aortic arch is calcified. Lungs are underinflated but clear. No evidence of pleural effusion or pneumothorax. IMPRESSION: Cardiomegaly with mild underinflation of the lungs. ACT 112: Negative or not required by law. Electronically signed by: Elio Pacheco M.D. 01/10/2024 11:[address] 01/10/24 09:51 CT head/brain wo con CLINICAL HISTORY: fall, head strike to nasal bridge yesterday on deliq Technique: Contiguous axial CT images of the head were acquired from the base of the skull to the vertex without intravenous contrast administration. Images were viewed in brain, subdural and bone windows. Automated dose lowering techniques and/or adjustment according to patient size were utilized for this exam. Comparison: Comparison is made to CT head 12/17/2023 Findings: The ventricles, basal cisterns, and cerebral sulci are normal. There is no acute intracranial hemorrhage or evidence of acute territorial infarction. Neither mass effect, shift of the midline structures, nor abnormal extra-axial fluid collections are shown. Imaged portions of the paranasal sinuses and mastoid air cells are clear. The orbits appear normal. There are no acute fractures of the calvaria or scalp swelling. Impression: No acute intracranial hemorrhage, no evidence of acute territorial infarction or other acute intracranial disease process. ACT 112: Negative or not required by law. Electronically signed by: Elio Pacheco M.D. 01/10/2024 10:59 AM Discharge Plan Visit Data Chief Complaint: Fall Stated Complaint: FALL, ED Provider: Don Snell Discharge Problem: Acute on chronic respiratory failure with hypoxia and hypercapnia, End-stage renal disease (ESRD), Hyperkalemia, GIB (gastrointestinal bleeding), Pneumonia, Volume overload Patient Disposition: Admitted As Inpatient Discharge Instructions Interventions: ED Discharge Assessment Last Done: 01/10/24 15:06 Discharge Problem: GIB (gastrointestinal bleeding) Qualifiers: GI bleed type/associated pathology: unspecified gastrointestinal hemorrhage type Qualified Code(s): K92.2 - Gastrointestinal hemorrhage, unspecified Pneumonia Qualifiers: Pneumonia type: due to unspecified organism Laterality: right Lung location: l ower lobe of lung Qualified Code(s): J18.9 - Pneumonia, unspecified organism Volume overload Qualifiers: Hypervolemia type: other Qualified Code(s): E87.79 - Other fluid overload
[2024-01-10] MEDS: LEVALBUTEROL 1.25 MG/3 ML NEB NEB STA (10:07)
[2024-01-10 10:17] LABS: Base Excess VBG -2.6 mEq/L; HCO3 VBG 26 mmol/L; Oxygen Saturation VBG < 60.0 %; PCO2 VBG 66 mmHg (38-50); PO2 VBG 38 mmHg
[2024-01-10 10:21] LABS: Basophils # (auto) 0.02 K/uL (0.00-0.20); Basophils % (auto) 0.1 %; Eosinophils # (auto) 0.01 K/uL (0.00-0.50); Eosinophils % (auto) 0.1 %; Hematocrit (blood only) 26.6 % (42.0-52.0); Immature Granulocytes # (auto) 0.14 K/uL (0.01-0.20); Immature Granulocytes % (auto) 0.7 %; Lymphocytes # (auto) 0.29 K/uL (1.20-3.40); Lymphocytes % (auto) 1.5 %; Mean Corpuscular Hemoglobin 28.7 pg (25.0-34.0); Mean Corpuscular Hgb Conc 30.1 g/dL (32.0-36.0); Mean Corpuscular Volume 95.3 fL (80.0-100.0); Mean Platelet Volume 10.6 fL (9.4-12.4); Monocytes # (auto) 1.67 K/uL (0.11-0.59); Monocytes % (auto) 8.7 %; Neutrophils # (auto) 17.08 K/uL (1.40-6.50); Neutrophils % (auto) 88.9 %; Platelet Count 170 K/uL (130-400); RDW Coefficient of Variation 17.2 % (11.5-14.5); RDW Standard Deviation 59.3 fL (36.4-46.3); Red Blood Count 2.79 M/uL (4.70-6.10); White Blood Count 19.21 K/ul (4.8-10.8)
[2024-01-10 10:40] LABS: Albumin Globulin Ratio 1.2 (0.9-2); Albumin Level 3.7 gm/dl (3.4-5.0); Bilirubin,Total 0.7 mg/dl (0.2-1.0); Calcium 8.3 mg/dl (8.6-10.3); Creatinine Clr Calc Pharmacy 6.7 ml/min; Globulin 3.1 gm/dl (2.5-4.0); Magnesium 2.4 mg/dl (1.7-2.4); Potassium 6.4 mmol/L (3.5-5.1); Total Protein 6.8 gm/dl (6.0-8.3)
[2024-01-10 10:47] LABS: INR 1.2 (0.9-1.1); Partial Thromboplastin Ratio 1.2; Partial Thromboplastin Time 33 Seconds (21-31)
[2024-01-10] MEDS: PANTOprazole 80 MG in DEXTROSE 5% 100 ML IV ONE (10:49)
[2024-01-10] MEDS: methylPREDNISolone 125 MG/2 ML VIAL IV STA (10:49)
[2024-01-10 10:56] LABS: Adenovirus PCR Not Detected (NotDetected); Bordetella parapertussis PCR Not Detected (NotDetected); Bordetella pertussis PCR Not Detected (NotDetected); Chlamydia pneumoniae PCR Not Detected (NotDetected); Coronavirus 229E PCR Not Detected (NotDetected); Coronavirus CoV-2 (COVID19)PCR Not Detected (NotDetected); Coronavirus HKU1 PCR Not Detected (NotDetected); Coronavirus NL63 PCR Not Detected (NotDetected); Coronavirus OC43PCR Not Detected (NotDetected); Human Metapneumovirus PCR Not Detected (NotDetected); Influenza A PCR Not Detected (NotDetected); Influenza B PCR Not Detected (NotDetected); Mycoplasma pneumoniae PCR Not Detected (NotDetected); Parainfluenza Virus 1 PCR Not Detected (NotDetected); Parainfluenza Virus 2 PCR Not Detected (NotDetected); Parainfluenza Virus 3 PCR Not Detected (NotDetected); Parainfluenza Virus 4 PCR Not Detected (NotDetected); Respiratory Syncytial VirusPCR Not Detected (NotDetected); Rhinovirus/Enterovirus PCR Not Detected (NotDetected)
--- NOTE | 2024-01-10 11:00 | CT Scan Report ---
CT head/brain wo con CLINICAL HISTORY: fall, head strike to nasal bridge yesterday on deliq Technique: Contiguous axial CT images of the head were acquired from the base of the skull to the chen toyin without intravenous contrast administration. Images were viewed in brain, subdural and bone windo ws. Automated dose lowering techniques and/or adjustment according to patient size were utilized for this exam. Comparison: Comparison is made to CT head 12/17/2023 Findings: The ventricles, basal cisterns, and cerebral sulci are normal. There is no acute intracranial hemorrh age or evidence of acute territorial infarction. Neither mass effect, shift of the midline structures , nor abnormal extra-axial fluid collections are shown. Imaged portions of the paranasal sinuses and mastoid air cells are clear. The orbits appear normal. There are no acute fractures of the calvaria or scalp swelling. Impression: No acute intracranial hemorrhage, no evidence of acute territorial infarction or other acute intracra nial disease process. ACT 112: Negative or not required by law. Electronically signed by: Elio Pacheco M.D. 01/10/2024 10:59 AM
--- NOTE | 2024-01-10 11:02 | CT Scan Report ---
CT SCAN OF THE CERVICAL SPINE CLINICAL HISTORY: Trauma. Fall. COMPARISON STUDY: No priors. TECHNIQUE: CT scan of the cervical spine is performed from the skull base to the upper thoracic spine . Images are reviewed in the axial, sagittal, and coronal planes. IV contrast was not administered fo r this examination. A dose lowering technique was utilized adhering to the principles of ALARA. CT DOSE: 4054.67 mGy.cm FINDINGS: Skeletal structures: The skeletal structures are osteopenic. There is no evidence of fracture or subl uxation involving the cervical spine. Vertebral body height is maintained. There is minimal anterolis thesis at C7-T1. Alignment is otherwise preserved. There is straightening of cervical lordosis. Ante rior osteophytes are seen throughout. The odontoid process and lateral masses are intact. The atlanto axial articulation is preserved noting advanced productive degenerative change. The spinous processes appear intact. There is moderate to advanced multilevel cervical spondylosis. Uncovertebral and face t arthropathy contribute to neural foraminal narrowing at most levels. Intervertebral discs: There is moderate to severe disc space narrowing at C3-C4, C4-C5, and C6-C7. Central canal: Posterior disc osteophyte complexes at C4-C5, C5-C6, and C6-C7 may contribute to mild acquired compromise the central canal. Soft tissues: The prevertebral and paraspinous soft tissues are within normal limits. There is athero sclerotic calcification of the carotid bulbs. Calvarium: The visualized calvarium at the skull base appears intact. There is atherosclerotic calcif ication of the cavernous carotid arteries. Brain parenchyma: Partially visualized brain parenchyma at the skull base is within normal limits. Sinuses and mastoids: The visualized paranasal sinuses are clear. The mastoid air cells are well pneu matized. Lung apices: Clear as visualized. IMPRESSION: 1. There is no evidence of fracture or subluxation involving the cervical spine. 2. Osteopenia and spondylotic change as above. ACT 112: Negative or not required by law. Electronically signed by: Trace Rizzo M.D. 01/10/2024 11:00 AM
--- NOTE | 2024-01-10 11:04 | CT Scan Report ---
CT abd pelvis wo con CLINICAL HISTORY: ab pain TECHNIQUE: Helical axial images of the abdomen and pelvis were obtained. Automated dose lowering tech niques and/or adjustment according to patient size were utilized for this exam. This exam was perfor med without intravenous contrast. COMPARISON: Comparison is made to CT abdomen pelvis 11/10/2023 FINDINGS: Lower chest: Consolidative changes are seen in the bilateral lower lobes likely reflecting atelectas is. Cardiomegaly is seen. Liver: Unremarkable. No focal lesions are seen. Gallbladder and biliary tree: Patient is status post cholecystectomy. No intra- or extrahepatic bilia ry ductal dilation. Pancreas: Unremarkable, no focal lesions. Spleen: Unremarkable. Adrenals: Unremarkable. Kidneys and ureters: Multiple lesions are seen, some of which are cystic, some of which are greater t keane simple fluid density. Bladder: Limited evaluation due to underdistention. Reproductive organs: Unremarkable. Bowel: Diverticulosis is seen without evidence of diverticulitis. Lymph nodes Retroperitoneal: Subcentimeter lymph nodes are noted. Pelvic: Unremarkable. Mesenteric: Unremarkable. Peritoneum: Normal. Vessels: Atherosclerotic calcifications are seen. Small infrarenal aortic aneurysms measure up to 26 mm in diameter. Abdominal wall: Unremarkable. Bones: Degenerative changes in the visualized spine. IMPRESSION: 1. No acute abnormality in particular no evidence of acute fracture or intraperitoneal injury. 2. Partial visualization of atelectasis. Superimposed aspiration/pneumonia cannot be excluded. ACT 112: Negative or not required by law. Electronically signed by: Elio Pacheco M.D. 01/10/2024 11:02 AM
--- NOTE | 2024-01-10 11:24 | XRay Report ---
XR chest 1V portable CLINICAL HISTORY: Dyspnea TECHNIQUE: Single frontal radiograph of the chest was obtained. Comparison: Comparison is made to chest radiographs 01/03/2024 FINDINGS: No lines and tubes are seen. Cardiomegaly is noted. The aortic arch is calcified. Lungs are underinfl ated but clear. No evidence of pleural effusion or pneumothorax. IMPRESSION: Cardiomegaly with mild underinflation of the lungs. ACT 112: Negative or not required by law. Electronically signed by: Elio Pacheco M.D. 01/10/2024 11:23 AM
[2024-01-10] MEDS: DEXTROSE 50% 50 ML SYRINGE IV STA ×2 (11:38→11:39)
[2024-01-10] MEDS: CALCIUM GLUCONATE 1,000 MG/60 ML BAG IV STA (11:39)
[2024-01-10] MEDS: INSULIN HUMAN REGULAR PER UNIT 10 UNITS in SYRINGE 9.9 ML IV STA (11:39)
--- NOTE | 2024-01-10 11:41 | Nephrology Consultation ---
Date of Consultation January 10, 2024 Assessment & Plan (1) Acute respiratory acidosis: in the setting of chronic respiratory failure >> 4L 02NC at baseline; pC02 on VBG 66 on bipap currently also needs urgent dialysis > K 6.4; he did have insulin 10 units IV, calcium gluconate; orders in for urgent dialysis in dialysis unit versus ICU (2) End-stage renal disease on hemodialysis: tends to have hypotension on HD >> give midodrine 10 mg prior to treatement; else continue home midodrine comes in markedly volume overloaded >> 10.6 lb over target weight > needs urgent treatment >>>high risk for complications today with rectal bleeding, hx of atrial flutter, acute on chronic respiratory failure >> suggest evaluation by ICU so that dialysis not delayed if there are complications in the dialysis unit such as hypotension, tachycardia Care coordinated with Dr Snell, admitting hospitalist service; reached out to ICU as well >> regarding level of care; medical and dialytic therapy for potassium; need for urgent dialysis for volume overload, respiratory failure, high risk of complications related to hemodynamics, heart rhythm, and rectal bleeding. (3) Atrial flutter with rapid ventricular response: -need to keep hgb > 8 >>needs to have his OP rate control meds on board for HD and has n't had today >> primary service aware/ordering; dialysis often limited by hypotension related at times to RVR (4) GI bleed: bright red blood per rectum; pt recently constipated; on PPI gtt > per primary service (5) Goals of care, counseling/discussion: pt is DNR/DNI > family aware/realistic; they are trying to get through the holidays if able >> they are open to pressors and to pRBC as needed; would not want intubation or defibrillation, no "dire intervention" per daughter History of Present Illness Reason for Consultation: hyperkalemia, ESRD, acute on chronic respiratory failure Requesting Physician: Dr Snell Attending Physician: Dr Angulo History of Present Illness 83 y/o M whom I'm asked to see for hyperkalemia and acute on chronic respiratory failure was brought to ED after a fall at home; noted to have K 6.4 and needing bipap to maintain his 02 sats. PMH includes ESRD on HD, long hx of HTN, CAD, recent diagnosis of atrial flutter w/ RVR earlier this month needing inpatient management; remote stroke w/ residual RLE wkness, R arm pain; chronic hypoxic respiratory failure on 4L 02NC 08/10 and restrictive lung dz (follows w/ [facility] pulm) attributed to volume overload and chronic pulmonary aspiration, renal cell carcinoma L 2.6 cm under observation, monoclonal gammopathy, anxiety/depression, chronic sacral pain. His dialysis has been very challenging to manage d/t chronic hypotension, chronic volume overload, and shortened treatments whether due to sacral pain or anxiety. He takes 10 mg midodrine prior to dialysis; also takes lorazepam prior to treatment and still struggles to complete a 3.5 hour treatment. He missed his HD yesterday d/t feeling poorly though he did actually go to the center and was noted to be 4.8 kg (10.6 lb) over target weight; he was constipated and had nausea not responsive to zofran; after 15 min of tx he got off to use bathroom and was rescheduled to go today but fell and came to ED. He did have miralax and did have a large BM last evening after some miralax. no comment on bleeding or tarry /dark stools. on 01/06, he shortened his treatment by 45 minutes and left 2.3 kg (5.1 lb) over target; AVF also infiltrated that day but was cannulated successfully yesterday. he had slid to the floor on 01/07 in the evening but looked ok; yesterday on coming home from treatment he fell forward and hit the screendoor w/ his face; this morning he slid out of the recliner where he sleeps and his son in law was unable to get him up off the floor d/t pt weakness and abdominal bloating. In the ER he was noted to have bright red blood per rectum and started on protonix gtt. Also hypoxic and on bipap. pt is confused and very difficult to understand through the bipap. states repeatedly he needs to get up and go home. Daughter Devorah (a [employer] financial analyst accountant) and son in law and . Allergies Allergy/AdvReac Type Severity Reaction Status Date / Time lorazepam AdvReac Intermediate Hallucinati Verified 11/10/23 19:09 ng/Confusio n Home Medications Medication Instructions Recorded Confirmed Type venlafaxine 37.5 mg 37.5 mg PO DAILY 02/01/22 01/10/24 History capsule,extended release 24 hr (Effexor XR) nitroglycerin 0.4 mg sublingual 0.4 mg sublingual UD PRN Chest Pain 05/14/23 01/10/24 History tablet (Nitrostat) rosuvastatin 10 mg tablet 10 mg PO QAM 05/14/23 01/10/24 History buspirone 5 mg tablet 5 mg PO AMHS 08/26/23 01/10/24 History glycopyrrolate 9 mcg-formoterol 1 puff inhalation BID 08/26/23 01/10/24 History 4.8 mcg HFA aerosol inhaler (Bevespi Aerosphere) vitamin B complex-vitamin C-folic 1 tab PO 3XWK 08/26/23 01/10/24 History acid 0.8 mg tablet (Izzy-Vianney) apixaban 2.5 mg tablet (Eliquis) 2.5 mg PO BID #60 tabs 08/29/23 01/10/24 Rx ipratropium 0.5 mg-albuterol 3 mg 3 ml NEB Q4 PRN Wheezing 10/31/23 01/10/24 History (2.5 mg base)/3 mL nebulization soln calcium acetate(phosphat bind) 667 1,334 mg PO TIDWMEAL 11/10/23 01/10/24 History mg capsule lorazepam 0.5 mg tablet 0.5 mg PO DIRECTED 11/10/23 01/10/24 History albuterol sulfate 2.5 mg/3 mL 2.5 mg continuous nebulization Q6 12/25/23 01/10/24 History (0.083 %) solution for nebulization PRN Wheezing albuterol sulfate 90 mcg/actuation 2 puff inhalation Q4 PRN Wheezing 12/25/23 01/10/24 History aerosol inhaler diltiazem HCl 30 mg tablet 30 mg PO DAILY 30 days #30 tabs 12/30/23 01/10/24 Rx guaifenesin 600 mg tablet, 600 mg PO Q12 #60 tabs 12/30/23 01/10/24 Rx extended release 12 hr (Mucinex) metoprolol tartrate 50 mg tablet 50 mg PO BID 30 days #60 tabs 12/30/23 01/10/24 Rx midodrine 2.5 mg tablet 2.5 mg PO TID@0800,1200,1700 30 12/30/23 01/10/24 Rx days #90 tabs midodrine 10 mg tablet 10 mg PO 3XWK PRN before dialysis 01/01/24 01/10/24 Rx #30 tabs Patient History Medical History Multifocal pneumonia History of DVT (deep vein thrombosis) Left renal mass Pneumonia due to COVID-19 virus Urinary frequency Hx of blood clots "IN MY LEGS AND 1 IN MY LUNGS A LONG TIME AGO">WAS ON BLOOD THINNERS, CAUSED BY PHLEBITIS History of COVID-19 02/02/22>STILL HAS FATIGUE Adjustment disorder with mixed disturbance of emotions and conduct History of basal cell carcinoma Carotid stenosis, right 50-69% stenosis to right ICA; <50% stenosis to left ICA per 06/22/21 carotid duplex History of stroke 2017 OR 2017 >NO RESIDUAL History of [place] (myocardial infarction) 1998 MOLLY and COPD overlap syndrome WEARS 4L O2 AT HS Prediabetes PT DENIES Renal osteodystrophy Papillary renal cell carcinoma WITH MALIGNANCY>NO TREATMENT YET (CURRENT DX) Surgical History History of anesthesia reaction SLOW TO WAKE UP History of arthroscopy LEFT KNEE History of colonoscopy History of tooth extraction History of tonsillectomy History of cataract surgery RT/LEFT History of cholecystectomy History of appendectomy History of heart artery stent 1998>? # STENTS PLACED IN [facility] (FOLLWED BY DR. [facility]) Family History Other Colorectal cancer No family history of adverse response to anesthesia Social History Smoking Status: Never smoker Second Hand Exposure: No; Do You Dip or Chew Tobacco: No; Hx Alcohol Use: No Hx Substance Use: No Preferred Language: Occitan Communication Ability: Effective Communication Tools: Other Tufter Hand Required: No Beliefs That Will Affect Care: None Current Living Situation: Spouse Feels Safe at Home: Yes Assistive Devices: Cane, Oxygen - Continuous and Walker Review of Systems 2 Review of Systems: Other (ROS limited by confusion, bipap) Physical Exam 2 Constitutional: well developed, well nourished, + acute distress (mild agitation when he wakes up), + ill appearing and + altered mental status Eyes: EOM intact bilaterally ENMT: Mouth: + dry oral mucous membranes on bipap Respiratory: normal respiratory effort Auscultation: + diminished lung sounds, + rhonchi and + wheezes Cardiovascular: Rate/Rhythm: regular rate (HS distant) and regular rhythm E xtremities: + edema (1-2+) and + AV fistula (LUE + t/b) Gastrointestinal (Abdomen): Inspection/Auscultation: + abdomen distended and normal bowel sounds Percussion/Palpation: abdomen soft; abdomen nontender, no guarding and no ascites Musculoskeletal: Extremities: strength 5/5 throughout Skin: no rashes, warm and dry Neurologic: iglesias, fluent limited speech, dosing/ wakens intermittently/briefly; no tremor Psychiatric: Orientation: oriented to person; + uncooperative Results & Data Vital Signs (Past 12 Hours) Vital Signs Temp Pulse Pulse Resp BP BP Pulse Ox 01/10/24 10:46 99 H 25 H 114/76 98 01/10/24 10:07 87 28 H 93 01/10/24 10:07 86 22 93 01/10/24 09:39 37.0 C 90 20 104/64 91 O2 Del Method O2 Flow Rate FiO2 01/10/24 10:46 BiPAP 01/10/24 10:07 50 01/10/24 10:07 BiPAP 50 01/10/24 09:39 Nasal Cannula 4 Laboratory Results 01/10/24 10:05 01/10/24 10:05 Diagnostic Findings cxr > images personally reviewed > pulm vasc congestion (my reading) CT head, a/p no acute process
[2024-01-10] MEDS: ALBUTEROL 0.5% NEB SOLN 2.5 MG/0.5 ML VIAL NEB STA (11:44)
[2024-01-10] MEDS: PANTOprazole 40 MG in DEXTROSE 5% MINI-B 100 ML IV SCH (12:04)
--- NOTE | 2024-01-10 12:44 | History & Physical Report ---
Date of Service January 10, 2024 Assessment & Plan (1) Acute and chronic respiratory failure: (2) Volume overload: (3) COPD (chronic obstructive pulmonary disease): (4) MOLLY (obstructive sleep apnea): Plan: Patient is 83-year-old male with PMH CAD s/p stent, ESRD on HD, chronic hypoxemic respiratory failure on 4 L oxygen, COPD, HLD, atrial flutter/atrial fibrillation, history DVT, anticoagulated on Eliquis, MOLLY, CVA, prediabetes, presented to ER with c/o weakness and fall today. Recent admission for COPD exacerbation treated with doxycycline, steroids. In ER patient afebrile, P: 94, R: 24, BP 104/64, 91% on 4 L nasal cannula. Was placed on BiPAP WBC: 19. Procalcitonin: 1.86, Lactate: 2.0. Negative BioFire respiratory panel. VBG pH: 7.2, pCO2: 66. A. Initial troponin: 33 which is approximately patient's baseline CXR: Cardiomegaly with mild underinflation of the lungs. CT abd/pelvis: Partial visualization of atelectasis. Superimposed aspiration/pneumonia cannot be excluded. In ER given neb treatment, Solu-Medrol 125 mg IV, Zosyn Possible underlying pneumonia MRSA swab pending. Had negative MRSA swab on 12/25/23 Blood culture pending Continue bipap, wean when able back to pt's home O2 4L Will continue Zosyn for now May need obtaining CT chest to further evaluate once patient receives HD and condition allows CBC, BMP in am (5) End-stage renal disease on hemodialysis: (6) Hyperkalemia: Plan: ESRD on HD on , sat schedule Missed HD yesterday and hasn't been finishing full dialysis sessions recently K: 6.4 In ER given calcium gluconate, insulin R, dextrose and albuterol neb treatment ER physician spoke to nephrology, Dr Patel who plans to dialyze him now. Dental Office Assistant, Dr Patel requested patients home midodrine 10mg be given prior to HD today as patient with known hypotension with HD With patient's known issues with hypotension with HD, Dr Patel anticipates pt may require pressors to complete HD today. ICU pediatric orthodontist aware Admit to ICU (7) Anemia of chronic renal failure: (8) GI bleed: Plan: Reported constipation recently Reported heme positive BM in ER Possible GI bleed CT Abd/pelvis: No acute abnormality in particular no evidence of acute fracture or intraperitoneal injury. Hgb: 8. Was 7.8 on 01/03/2024. Appears patient's baseline around 8-9 In ER PPI bolus and drip started Monitor H&H Would plan to hold Eliquis currently (9) Metabolic encephalopathy: Plan: patient currently encephalopathic CT head: no acute intracranial findings Planned HD now and continue bipap and wean as able Will hold home lorazepam NPO while on bipap (10) Atrial fibrillation/flutter: Plan: Anticoagulated on Eliquis Recent history atrial flutter/fib RVR with recent medication adjustments of dialysis days with diltiazem 30 mg in the morning and 10 mg midodrine before dialysis session with 50 metoprolol tartrate in the evening. Nondialysis days is to take metoprolol tartrate 50mg BID and midodrine 2.5mg TID. Would plan to restart diltiazem, metoprolol tartrate as vitals allow per pediatric orthodontist (11) Coronary artery disease: Plan: S/P Stent Today Troponin 33, 28 On home atorvastatin, metoprolol tartrate (12) History of DVT (deep vein thrombosis): Plan: On chronic Eliquis Holding Eliquis for now (13) Dyslipidemia: Plan: On home atorvastatin DVT Prophylaxis SCDs for now Admit ICU DNR/DNI as per discussion with pt's daughter and Follows with Dr Arora for routine care Pt was seen and care coordinated with Dr De León. See addendum I spent a total of 79 minutes reviewing notes, outpatient records, labs, medication, coordinating, documenting and providing care for this patient excluding time spent in the performance of separately billed services. History of Present Illness Chief Complaint: Fall Primary Care Provider: Jody Arora MD Patient is 83-year-old male with PMH CAD s/p stent, ESRD on HD, chronic hypoxemic respiratory failure on 4 L oxygen, COPD, HLD, atrial flutter/atrial fibrillation, history DVT, anticoagulated on Eliquis, MOLLY, CVA, prediabetes, presented to ER with c/o weakness and fall. History obtained from patient's and daughter at bedside as well as inpatient chart review. Patient with history recurrent hospitalizations. Most recent [facility] hospital admission 12/25/2023- 12/30/2023 for atrial flutter/atrial fibrillation with RVR that was noted after patient ambulated without his oxygen. Patient with known difficult control heart rates and BP's as has issues with intradialytic hemodynamic instability. Medications were adjusted and upon discharge with plan for dialysis days with diltiazem 30 mg in the morning and 10 mg midodrine before dialysis session and midodrine 2.5mg noon and supper and 50mg metoprolol tartrate in the evening. Nondialysis days is to take metoprolol tartrate 50mg BID and midodrine 2.5mg TID. Was also treated for COPD exacerbation with negative BioFire respiratory panel and chest x-ray was without infiltrate. He was treated with doxycycline, IV Solu-Medrol, Mucinex, nebs with improvement. States patient has been having difficulty finishing his dialysis sessions and missed HD yesterday. It is reported patient is up 10 pounds. States patient wasn't feeling well yesterday. Report patient slid and fell onto his buttocks this morning and denied hitting his head today. But reports hit head on door yesterday and had intermittent [place] since. Reported patient has been having constipation. States took Miralax and had BM last night. Was having some reported abdominal discomfort. Reported had bowel movement in ER that was heme positive and was started on Protonix drip. In ER patient placed on bipap as O2 sats 91% on his normal 4L via nasal cannula. Reported some coughing. Currently is difficult to obtain a thorough history secondary to bipap being on place and patient appears confused and just asking to get up and go home. Allergies Allergy/AdvReac Type Severity Reaction Status Date / Time lorazepam AdvReac Intermediate Hallucinati Verified 11/10/23 19:09 ng/Confusio n Home Medications Medication Instructions Recorded Confirmed Type venlafaxine 37.5 mg 37.5 mg PO DAILY 02/01/22 01/10/24 History capsule,extended release 24 hr (Effexor XR) nitroglycerin 0.4 mg sublingual 0.4 mg sublingual UD PRN Chest Pain 05/14/23 01/10/24 History tablet (Nitrostat) rosuvastatin 10 mg tablet 10 mg PO QAM 05/14/23 01/10/24 History buspirone 5 mg tablet 5 mg PO AMHS 08/26/23 01/10/24 History glycopyrrolate 9 mcg-formoterol 1 puff inhalation BID 08/26/23 01/10/24 History 4.8 mcg HFA aerosol inhaler (Bevespi Aerosphere) vitamin B complex-vitamin C-folic 1 tab PO 3XWK 08/26/23 01/10/24 History acid 0.8 mg tablet (Izzy-Vianney) apixaban 2.5 mg tablet (Eliquis) 2.5 mg PO BID #60 tabs 08/29/23 01/10/24 Rx ipratropium 0.5 mg-albuterol 3 mg 3 ml NEB Q4 PRN Wheezing 10/31/23 01/10/24 History (2.5 mg base)/3 mL nebulization soln calcium acetate(phosphat bind) 667 1,334 mg PO TIDWMEAL 11/10/23 01/10/24 History mg capsule lorazepam 0.5 mg tablet 0.5 mg PO DIRECTED 11/10/23 01/10/24 History albuterol sulfate 2.5 mg/3 mL 2.5 mg continuous nebulization Q6 12/25/23 01/10/24 History (0.083 %) solution for nebulization PRN Wheezing albuterol sulfate 90 mcg/actuation 2 puff inhalation Q4 PRN Wheezing 12/25/23 01/10/24 History aerosol inhaler guaifenesin 600 mg tablet, 600 mg PO Q12 #60 tabs 12/30/23 01/10/24 Rx extended release 12 hr (Mucinex) midodrine 2.5 mg tablet 2.5 mg PO TID@0800,1200,1700 30 12/30/23 01/10/24 Rx days #90 tabs midodrine 10 mg tablet 10 mg PO 3XWK PRN before dialysis 01/01/24 01/10/24 Rx #30 tabs diltiazem HCl 30 mg tablet 30 mg PO UD 01/10/24 01/10/24 History metoprolol tartrate 50 mg tablet 50 mg PO UD 01/10/24 01/10/24 History Past Med/Surg History Problem List (Updated 10/25/24 @ 19:04 by Shelby Briscoe PA-C) Metabolic encephalopathy Acute on chronic respiratory failure with hypoxemia Uremia Volume overload (Acute) Pneumonia (Acute) GIB (gastrointestinal bleeding) (Acute) Hyperkalemia (Acute) End-stage renal disease (ESRD) (Acute) Acute on chronic respiratory failure with hypoxia and hypercapnia (Acute) History of DVT (deep vein thrombosis) MOLLY (obstructive sleep apnea) Atrial fibrillation/flutter Hypotension GI bleed Acute respiratory acidosis COPD (chronic obstructive pulmonary disease) (Acute) Chest pain (Acute) End-stage renal disease on hemodialysis (Acute) Atrial flutter with rapid ventricular response (Acute) Bifascicular bundle branch block AV fistula Hyperkalemia Pressure injury of buttock, stage 1 Atrial flutter with rapid ventricular response Open thigh wound Acute on chronic diastolic HF (heart failure) Hypercarbia (Acute) Acute hyponatremia (Acute) Edema (Acute) Shortness of breath (Acute) New onset atrial fibrillation Acute on chronic respiratory failure with hypoxia and hypercapnia Atrial fibrillation with RVR (Acute) Hypersomnolent Restrictive lung disease Chronic pulmonary aspiration Volume overload (Acute) End-stage renal disease (ESRD) (Acute) COPD with exacerbation (Acute) Dyslipidemia BPH (benign prostatic hyperplasia) Coronary artery disease S/p stent 1998 HTN (hypertension) Chronic hypoxemic respiratory failure (Acute) Anemia of chronic renal failure Hgb 8-9's per record review COPD (chronic obstructive pulmonary disease) Medical History Multifocal pneumonia Left renal mass Pneumonia due to COVID-19 virus Urinary frequency Hx of blood clots "IN MY LEGS AND 1 IN MY LUNGS A LONG TIME AGO">WAS ON BLOOD THINNERS, CAUSED BY PHLEBITIS History of COVID-19 02/02/22>STILL HAS FATIGUE Adjustment disorder with mixed disturbance of emotions and conduct History of basal cell carcinoma Carotid stenosis, right 50-69% stenosis to right ICA; <50% stenosis to left ICA per 06/22/21 carotid duplex History of stroke 2017 OR 2018 >NO RESIDUAL History of SC (myocardial infarction) 1998 MOLLY and COPD overlap syndrome WEARS 4L O2 AT HS Prediabetes PT DENIES Renal osteodystrophy Papillary renal cell carcinoma WITH MALIGNANCY>NO TREATMENT YET (CURRENT DX) Surgical History History of anesthesia reaction SLOW TO WAKE UP History of arthroscopy LEFT KNEE History of colonoscopy History of tooth extraction History of tonsillectomy History of cataract surgery RT/LEFT History of cholecystectomy History of appendectomy History of heart artery stent 1998>? # STENTS PLACED IN [facility] (FOLLWED BY DR. JACK SOUSA [facility]) Family History Other Colorectal cancer No family history of adverse response to anesthesia Social History Smoking Status: Never smoker Second Hand Exposure: No; Do You Dip or Chew Tobacco: No; Hx Alcohol Use: No Hx Substance Use: No Preferred Language: Yoruba Communication Ability: Effective Communication Tools: Other Flue Tile Press Operator Required: No Beliefs That Will Affect Care: None Current Living Situation: Spouse Other Information That Helps Us Care for You: No Feels Safe at Home: Yes Safety Concerns: Feels Safe At This Time Assistive Devices: Cane, Oxygen - Continuous and Walker Review of Systems Review of Systems: All systems reviewed & are unremarkable except as noted in HPI & below Physical Exam Physical Exam: PE per Dr De León Results & Data Results & Data Vital Signs (Past 12 Hours) Vital Signs Temp Pulse Pulse Resp BP BP Pulse Ox 01/10/24 12:26 91 H 99 01/10/24 12:11 90 01/10/24 12:06 84 22 99 01/10/24 12:00 133/94 01/10/24 11:57 83 24 98 01/10/24 11:51 113/71 01/10/24 11:51 97 H 21 96 01/10/24 11:44 91 H 22 97 01/10/24 11:08 89 25 H 100 01/10/24 10:46 114/76 01/10/24 10:46 99 H 25 H 114/76 98 01/10/24 10:44 87 25 H 01/10/24 10:07 87 28 H 93 01/10/24 10:07 86 22 93 01/10/24 10:05 102 H 25 H 100 01/10/24 09:50 94 H 24 98 01/10/24 09:39 37.0 C 90 20 104/64 91 01/10/24 09:36 104/64 O2 Del Method O2 Flow Rate FiO2 01/10/24 12:26 BiPAP 01/10/24 12:11 01/10/24 12:06 BiPAP 01/10/24 12:00 01/10/24 11:57 BiPAP 01/10/24 11:51 01/10/24 11:51 01/10/24 11:44 BiPAP 50 01/10/24 11:08 01/10/24 10:46 01/10/24 10:46 BiPAP 01/10/24 10:44 01/10/24 10:07 50 01/10/24 10:07 BiPAP 50 01/10/24 10:05 01/10/24 09:50 01/10/24 09:39 Nasal Cannula 4 01/10/24 09:36 Laboratory Results Short CBC 01/10/24 Range/Units 10:05 WBC 19.21 H (4.8-10.8) K/ul Hgb 8.0 L (14.0-18.0) g/dl Hct 26.6 L (42.0-52.0) % Plt Count 170 (130-400) K/uL BMP 01/10/24 10:05 Sodium 134 L Potassium 6.4 H* Chloride 92 L Carbon Dioxide 27 BUN 97 H Creatinine 8.84 H* Glucose 125 H Calcium 8.3 L Liver Function 01/10/24 Range/Units 10:05 Total Bilirubin 0.7 (0.2-1.0) mg/dl AST 25 (13-39) U/L ALT 19 (7-52) U/L Alkaline Phosphatase 48 (34-104) U/L Albumin 3.7 (3.4-5.0) gm/dl Diagnostic Findings Abdomen/Pelvis CT 01/10/24 09:51 CT abd pelvis wo con CLINICAL HISTORY: ab pain TECHNIQUE: Helical axial images of the abdomen and pelvis were obtained. Automated dose lowering techniques and/or adjustment according to patient size were utilized for this exam. This exam was performed without intravenous contrast. COMPARISON: Comparison is made to CT abdomen pelvis 11/10/2023 FINDINGS: Lower chest: Consolidative changes are seen in the bilateral lower lobes likely reflecting atelectasis. Cardiomegaly is seen. Liver: Unremarkable. No focal lesions are seen. Gallbladder and biliary tree: Patient is status post cholecystectomy. No intra- or extrahepatic biliary ductal dilation. Pancreas: Unremarkable, no focal lesions. Spleen: Unremarkable. Adrenals: Unremarkable. Kidneys and ureters: Multiple lesions are seen, some of which are cystic, some of which are greater than simple fluid density. Bladder: Limited evaluation due to underdistention. Reproductive organs: Unremarkable. Bowel: Diverticulosis is seen without evidence of diverticulitis. Lymph nodes Retroperitoneal: Subcentimeter lymph nodes are noted. Pelvic: Unremarkable. Mesenteric: Unremarkable. Peritoneum: Normal. Vessels: Atherosclerotic calcifications are seen. Small infrarenal aortic aneury sms measure up to 26 mm in diameter. Abdominal wall: Unremarkable. Bones: Degenerative changes in the visualized spine. IMPRESSION: 1. No acute abnormality in particular no evidence of acute fracture or intraperitoneal injury. 2. Partial visualization of atelectasis. Superimposed aspiration/pneumonia cannot be excluded. ACT 112: Negative or not required by law. Electronically signed by: Elio Pacheco M.D. 01/10/2024 11:[address] 01/10/24 09:51 CT SCAN OF THE CERVICAL SPINE CLINICAL HISTORY: Trauma. Fall. COMPARISON STUDY: No priors. TECHNIQUE: CT scan of the cervical spine is performed from the skull base to the upper thoracic spine. Images are reviewed in the axial, sagittal, and coronal planes. IV contrast was not administered for this examination. A dose lowering technique was utilized adhering to the principles of ALARA. CT DOSE: 4054.67 mGy.cm FINDINGS: Skeletal structures: The skeletal structures are osteopenic. There is no evidence of fracture or subluxation involving the cervical spine. Vertebral body height is maintained. There is minimal anterolisthesis at C7-T1. Alignment is otherwise preserved. There is straightening of cervical lordosis. Anterior osteophytes are seen throughout. The odontoid process and lateral masses are intact. The atlantoaxial articulation is preserved noting advanced productive degenerative change. The spinous processes appear intact. There is moderate to advanced multilevel cervical spondylosis. Uncovertebral and facet arthropathy contribute to neural foraminal narrowing at most levels. Intervertebral discs: There is moderate to severe disc space narrowing at C3-C4, C4-C5, and C6-C7. Central canal: Posterior disc osteophyte complexes at C4-C5, C5-C6, and C6-C7 may contribute to mild acquired compromise the central canal. Soft tissues: The prevertebral and paraspinous soft tissues are within normal limits. There is atherosclerotic calcification of the carotid bulbs. Calvarium: The visualized calvarium at the skull base appears intact. There is atherosclerotic calcification of the cavernous carotid arteries. Brain parenchyma: Partially visualized brain parenchyma at the skull base is within normal limits. Sinuses and mastoids: The visualized paranasal sinuses are clear. The mastoid air cells are well pneumatized. Lung apices: Clear as visualized. IMPRESSION: 1. There is no evidence of fracture or subluxation involving the cervical spine. 2. Osteopenia and spondylotic change as above. ACT 112: Negative or not required by law. Electronically signed by: Trace Rizzo M.D. 01/10/2024 11:00 AM Chest X-Ray 01/10/24 09:51 XR chest 1V portable CLINICAL HISTORY: Dyspnea TECHNIQUE: Single frontal radiograph of the chest was obtained. Comparison: Comparison is made to chest radiographs 01/03/2024 FINDINGS: No lines and tubes are seen. Cardiomegaly is noted. The aortic arch is ca lcified. Lungs are underinflated but clear. No evidence of pleural effusion or pneumothorax. IMPRESSION: Cardiomegaly with mild underinflation of the lungs. ACT 112: Negative or not required by law. Electronically signed by: Elio Pacheco M.D. 01/10/2024 11:[address] 01/10/24 09:51 CT head/brain wo con CLINICAL HISTORY: fall, head strike to nasal bridge yesterday on deliq Technique: Contiguous axial CT images of the head were acquired from the base of the skull to the vertex without intravenous contrast administration. Images were viewed in brain, subdural and bone windows. Automated dose lowering techniques and/or adjustment according to patient size were utilized for this exam. Comparison: Comparison is made to CT head 12/17/2023 Findings: The ventricles, basal cisterns, and cerebral sulci are normal. There is no acute intracranial hemorrhage or evidence of acute territorial infarction. Neither mass effect, shift of the midline structures, nor abnormal extra-axial fluid collections are shown. Imaged portions of the paranasal sinuses and mastoid air cells are clear. The orbits appear normal. There are no acute fractures of the calvaria or scalp swelling. Impression: No acute intracranial hemorrhage, no evidence of acute territorial infarction or other acute intracranial disease process. ACT 112: Negative or not required by law. Electronically signed by: Elio Pacheco M.D. 01/10/2024 10:59 AM Supervising Physician Co-Signing Physician Notes attending addendum: The patient was seen and examined in emergency room in presence of the family members He was brought into the ER following generalized weakness and a fall while his he was on commode He slid down and was not able to get up He has not had full dialysis yesterday and is scheduled for a dialysis today He denies any chest pain, palpitation or any increasing shortness of breath, no fever and or chills, no abdominal pain nausea no vomiting and no cough or phlegm He has been requiring BiPAP to maintain saturation in the emergency room He was seen by the farm crops teacher and will have dialysis today On examination lying in bed with shortness of breath and with BiPAP in situ Remains hemodynamically stable with blood pressure at 133/94 and afebrile Chestdecreased breath sound bilaterally with occasional rhonchi and crackles at the bases HeartS1-S2, regular Abdomendistended, bowel sound present and benign Extremities- 1+ edema bilaterally his admission labs, EKG and imaging studies reviewed Has elevated white count and also procalcitonin but doubt any significant infection at this time could be secondary to overall distress Uses 4 L of oxygen at home all the time and now has been requiring BiPAP to maintain saturation Noncompliance with CPAP/BiPAP and does not want to use it Will get CT of the chest to evaluate the lung condition further Appreciate nephrology input and recommendation for dialysis today May need pressors to maintain blood pressure while at dialysis and thereafter and the patient may need to go to ICU to continue with that pressors if needed Other significant medical conditions are mentioned as above and agree with the management and take the full responsibility of Caree by Shelby de león (1) Acute and chronic respiratory failure Respiratory failure complication: hypoxia Qualified Code(s): J96.21 - Acute and chronic respiratory failure with hypoxia
[2024-01-10] MEDS: dilTIAZem HCL 30 MG TAB PO ONE (13:06)
[2024-01-10] MEDS: MIDODRINE HCL 10 MG TAB PO STA (13:06)
[2024-01-10] MEDS: PIPERACILLIN/TAZOBACTAM 4.5 GM/100 ML BAG IV ONE (13:07)
[2024-01-10] MEDS ORDERED: STAT IV Infusion **Titration per Protocol STA (14:55)
[2024-01-10] MEDS: NOREPINEPHRINE/D5W 4 MG/250 ML PLCT IV SCH (15:03)
[2024-01-10] MEDS: PANTOPRAZOLE BOLUS/DRIP IV STA (15:03)
[2024-01-10 16:06] LABS: Hematocrit (blood only) 26.3 % (42.0-52.0); Mean Corpuscular Hemoglobin 28.6 pg (25.0-34.0); Mean Corpuscular Hgb Conc 30.4 g/dL (32.0-36.0); Mean Corpuscular Volume 93.9 fL (80.0-100.0); Mean Platelet Volume 10.2 fL (9.4-12.4); Platelet Count 180 K/uL (130-400); RDW Coefficient of Variation 17.2 % (11.5-14.5); RDW Standard Deviation 57.9 fL (36.4-46.3); White Blood Count 17.26 K/ul (4.8-10.8)
[2024-01-10 16:26] LABS: Basophils # (auto) 0.01 K/uL (0.00-0.20); Basophils % (auto) 0.1 %; Immature Granulocytes # (auto) 0.09 K/uL (0.01-0.20); Immature Granulocytes % (auto) 0.5 %; Lymphocytes # (auto) 0.16 K/uL (1.20-3.40); Lymphocytes % (auto) 0.9 %; Monocytes # (auto) 0.32 K/uL (0.11-0.59); Monocytes % (auto) 1.9 %; Neutrophils # (auto) 16.68 K/uL (1.40-6.50); Neutrophils % (auto) 96.6 %; Polychromasia 1+
[2024-01-10] MEDS: ICU Protocol for HYPERglycemia SCH (16:30)
--- NOTE | 2024-01-10 17:01 | Critical Care Consultation ---
Date of Consultation January 10, 2024 Assessment & Plan (1) Volume overload: (2) GIB (gastrointestinal bleeding): (3) End-stage renal disease (ESRD): (4) Hyperkalemia: (5) Uremia: (6) Acute on chronic respiratory failure with hypoxemia: Plan 83-year-old male with a history of restrictive lung disease, chronic aspiration, end-stage renal disease on hemodialysis every Saturday, and Saturday. Neurologic: Patient with acute delirium secondary to uremia. CT head without acute pathology. Pulmonary: Patient with acute hypoxemia secondary to volume overload. This should hopefully improve with volume removal from dialysis. Difficult to rule out aspiration pneumonitis as a factor as well. Agree with empiric Zosyn for the time being. Discussed with patient and family and the patient is currently a DNI. Continue to wean oxygen as able. Linda nebs as needed. Chest x-ray with low lung volumes and cardiomegaly. Cardiovascular: Patient with chronic hypotension on hemodialysis days. Continue midodrine and use Levophed as needed to maintain maps greater than 65 mmHg. Patient with a known history of CAD and atrial flutter followed by outpatient cardiology at [facility]. Hold beta-blockade for the time being. Will also hold Eliquis for today. Troponin minimally elevated likely due to demand ischemia in the setting of acute hypoxemia secondary to volume overload. Gastrointestinal: Patient with signs concerning for GI bleed. Continue Protonix drip. Repeat hemoglobin stable. Trend hemoglobin. GI consulted. Renal: Nephrology on board. Patient's status post hemodialysis treatment. Repeat BMP to evaluate hyperkalemia. No significant changes noted on telemetry. Monitor telemetry closely given hyperkalemia. Infectious disease: Blood cultures pending. Continue empiric Zosyn for 48 hours and follow fever curve and white count. Possible aspiration pneumonitis/pneumonia. Hematologic: Patient with a history of anemia of chronic disease. Holding Eliquis in the setting of acute illness. Patient also with a history of DVT. Will restart Eliquis likely tomorrow. Endocrine: Maintain euglycemia VTE prophylaxis: SCDs CODE STATUS: DNR/DNI Family at bedside: and daughter at bedside. Daughter is a client services associate for [facility]. Disposition: ICU I have personally spent 44 minutes of critical care time in the direct management of this patient. This is a life/limb threatening event. This includes time spent evaluating patient, direct bedside care, chart review, placing orders, interpretation of diagnostic studies, discussion with consultants, patient, and family members, as well as other required patient management activities. This time is exclusive of all separately billable procedures, and teaching time and separate from and in addition to any other critical care service time. Thank you for allowing us to participate in the care of this patient. History of Present Illness Reason for Consultation: Hypoxemic respiratory failure and hyperkalemia Attending Physician: Nate Angulo MD History of Present Illness 83-year-old male with a history of chronic aspiration, coronary artery disease, ESRD on hemodialysis every Saturday, and Saturday. He has been having trouble tolerating dialysis sessions as of late and has been on midodrine due to hypotension. He has been feeling unwell lately and missed his dialysis session yesterday. I spoke with the venereal disease control head who is requesting ICU admission due to patient's history of hypotension related to dialysis. Patient also reportedly had bright red blood per rectum in the ER and is currently on a Protonix drip. Allergies Allergy/AdvReac Type Severity Reaction Status Date / Time lorazepam AdvReac Intermediate Hallucinati Verified 11/10/23 19:09 ng/Confusio n Home Medications Medication Instructions Recorded Confirmed Type venlafaxine 37.5 mg 37.5 mg PO DAILY 02/01/22 01/10/24 History capsule,extended release 24 hr (Effexor XR) nitroglycerin 0.4 mg sublingual 0.4 mg sublingual UD PRN Chest Pain 05/14/23 01/10/24 History tablet (Nitrostat) rosuvastatin 10 mg tablet 10 mg PO QAM 05/14/23 01/10/24 History buspirone 5 mg tablet 5 mg PO AMHS 08/26/23 01/10/24 History glycopyrrolate 9 mcg-formoterol 1 puff inhalation BID 08/26/23 01/10/24 History 4.8 mcg HFA aerosol inhaler (Bevespi Aerosphere) vitamin B complex-vitamin C-folic 1 tab PO 3XWK 08/26/23 01/10/24 History acid 0.8 mg tablet (Izzy-Vianney) apixaban 2.5 mg tablet (Eliquis) 2.5 mg PO BID #60 tabs 08/29/23 01/10/24 Rx ipratropium 0.5 mg-albuterol 3 mg 3 ml NEB Q4 PRN Wheezing 10/31/23 01/10/24 History (2.5 mg base)/3 mL nebulization soln calcium acetate(phosphat bind) 667 1,334 mg PO TIDWMEAL 11/10/23 01/10/24 History mg capsule lorazepam 0.5 mg tablet 0.5 mg PO DIRECTED 11/10/23 01/10/24 History albuterol sulfate 2.5 mg/3 mL 2.5 mg continuous nebulization Q6 12/25/23 01/10/24 History (0.083 %) solution for nebulization PRN Wheezing albuterol sulfate 90 mcg/actuation 2 puff inhalation Q4 PRN Wheezing 12/25/23 01/10/24 History aerosol inhaler guaifenesin 600 mg tablet, 600 mg PO Q12 #60 tabs 12/30/23 01/10/24 Rx extended release 12 hr (Mucinex) midodrine 2.5 mg tablet 2.5 mg PO TID@0800,1200,1700 30 12/30/23 01/10/24 Rx days #90 tabs midodrine 10 mg tablet 10 mg PO 3XWK PRN before dialysis 01/01/24 01/10/24 Rx #30 tabs diltiazem HCl 30 mg tablet 30 mg PO UD 01/10/24 01/10/24 History metoprolol tartrate 50 mg tablet 50 mg PO UD 01/10/24 01/10/24 History Patient History Medical History Multifocal pneumonia Left renal mass Pneumonia due to COVID-19 virus Urinary frequency Hx of blood clots "IN MY LEGS AND 1 IN MY LUNGS A LONG TIME AGO">WAS ON BLOOD THINNERS, CAUSED BY PHLEBITIS History of COVID-19 02/02/22>STILL HAS FATIGUE Adjustment disorder with mixed disturbance of emotions and conduct History of basal cell carcinoma Carotid stenosis, right 50-69% stenosis to right ICA; <50% stenosis to left ICA per 06/22/21 carotid duplex History of stroke 2017 OR 2018 >NO RESIDUAL History of IL (myocardial infarction) 1998 MOLLY and COPD overlap syndrome WEARS 4L O2 AT HS Prediabetes PT DENIES Renal osteodystrophy Papillary renal cell carcinoma WITH MALIGNANCY>NO TREATMENT YET (CURRENT DX) Surgical History History of anesthesia reaction SLOW TO WAKE UP History of arthroscopy LEFT KNEE History of colonoscopy History of tooth extraction History of tonsillectomy History of cataract surgery RT/LEFT History of cholecystectomy History of appendectomy History of heart artery stent 1998>? # STENTS PLACED IN [facility] (FOLLWED BY DR. JACK SOUSA [facility]) Family History Other Colorectal cancer No family history of adverse response to anesthesia Social History Smoking Status: Never smoker Second Hand Exposure: No; Do You Dip or Chew Tobacco: No; Hx Alcohol Use: No Hx Substance Use: No Preferred Language: Maltese Communication Ability: Effective Communication Tools: Other Transport Medic Required: No Beliefs That Will Affect Care: None Current Living Situation: Spouse Other Information That Helps Us Care for You: No Feels Safe at Home: Yes Safety Concerns: Feels Safe At This Time Assistive Devices: Cane, Oxygen - Continuous and Walker Review of Systems Review of Systems: Unobtainable due to cognitive status Physical Exam Physical Exam: Constitutional: Patient appears to be of their stated age. Patient appearing moderately ill. Eyes: Pupils are equal round and reactive to light. Conjunctivae are normal. Anicteric sclera. Ears nose, mouth and throat: Mallampati class 2. Normal posterior oropharynx. Uvula is midline. Neck: Trachea is midline. Visual inspection is normal. Respiratory: Tachypneic and rhonchorous sounding. Cardiovascular: Regular rate and rhythm. No murmurs. No edema. Gastrointestinal: Normal bowel sounds, soft, nontender and nondistended. No hepatosplenomegaly noted. Musculoskeletal: No cyanosis. Patient is able to move all extremities. Strength is 5 out of 5 in the upper and lower extremities. Skin: No rashes, warm dry and intact. Neurologic: Patient with frequent myoclonic jerks. Delirious. Psychiatric: Alert and oriented x1. Results & Data Results & Data Vital Signs (Past 12 Hours) Vital Signs Temp Pulse Pulse Resp BP BP Pulse Ox 01/10/24 15:31 131/79 01/10/24 15:30 73 25 H 94 01/10/24 15:21 70 25 H 94 01/10/24 15:16 139/50 L 01/10/24 15:12 83 29 H 94 01/10/24 15:06 71 27 H 97 01/10/24 15:06 128/60 01/10/24 15:06 128/60 01/10/24 15:06 01/10/24 15:03 76 32 H 97 01/10/24 14:52 01/10/24 14:52 01/10/24 14:52 36.5 C 87 32 H 98/73 L 98 01/10/24 14:52 77 01/10/24 14:48 80 30 H 96 01/10/24 14:47 89/73 L 01/10/24 14:47 89/73 L 01/10/24 14:47 89/73 L 01/10/24 14:08 130/75 01/10/24 14:08 77 26 H 96 01/10/24 14:06 130/75 01/10/24 14:06 90 21 91 01/10/24 13:31 107/68 01/10/24 13:30 82 20 96 01/10/24 13:06 91 H 24 99 01/10/24 13:00 149/84 H 01/10/24 12:57 98 H 27 H 01/10/24 12:30 89 21 98 01/10/24 12:26 91 H 99 01/10/24 12:11 90 01/10/24 12:06 84 22 99 01/10/24 12:00 133/94 01/10/24 11:57 83 24 98 01/10/24 11:51 113/71 01/10/24 11:51 97 H 21 96 01/10/24 11:44 91 H 22 97 01/10/24 11:08 89 25 H 100 01/10/24 10:46 114/76 01/10/24 10:46 99 H 25 H 114/76 98 01/10/24 10:44 87 25 H 01/10/24 10:07 87 28 H 93 01/10/24 10:07 86 22 93 01/10/24 10:05 102 H 25 H 100 01/10/24 09:50 94 H 24 98 10/25/24 09:39 37.0 C 90 20 104/64 91 01/10/24 09:36 104/64 Pulse Ox O2 Del Method O2 Del Method O2 Flow Rate O2 Flow Rate FiO2 01/10/24 15:31 01/10/24 15:30 01/10/24 15:21 01/10/24 15:16 01/10/24 15:12 01/10/24 15:06 01/10/24 15:06 01/10/24 15:06 01/10/24 15:06 Nasal Cannula 7 01/10/24 15:03 01/10/24 14:52 98 Oxymask 12 01/10/24 14:52 Oxymask 12 01/10/24 14:52 Oxymask 12 01/10/24 14:52 01/10/24 14:48 01/10/24 14:47 01/10/24 14:47 01/10/24 14:47 01/10/24 14:08 01/10/24 14:08 Nasal Cannula 7 01/10/24 14:06 01/10/24 14:06 Nasal Cannula 7 01/10/24 13:31 01/10/24 13:30 01/10/24 13:06 Nasal Cannula 6 01/10/24 13:00 01/10/24 12:57 01/10/24 12:30 01/10/24 12:26 BiPAP 01/10/24 12:11 01/10/24 12:06 BiPAP 01/10/24 12:00 01/10/24 11:57 BiPAP 01/10/24 11:51 01/10/24 11:51 01/10/24 11:44 BiPAP 50 01/10/24 11:08 01/10/24 10:46 01/10/24 10:46 BiPAP 01/10/24 10:44 01/10/24 10:07 50 01/10/24 10:07 BiPAP 50 01/10/24 10:05 01/10/24 09:50 01/10/24 09:39 Nasal Cannula 4 01/10/24 09:36 Coding Level of Care Code 88155 CRITICAL CARE 1ST 30-74M Diagnoses Volume overload E87.79 Hypervolemia type: other GIB (gastrointestinal bleeding) K92.2 GI bleed type/associated pathology: unspecified gastrointestinal hemorrhage type End-stage renal disease (ESRD) N18.6 Hyperkalemia E87.5 Uremia N19 Acute on chronic respiratory failure with hypoxemia J96.21 (1) Volume overload Hypervolemia type: other Qualified Code(s): E87.79 - Other fluid overload (2) GIB (gastrointestinal bleeding) GI bleed type/associated pathology: unspecified gastrointestinal hemorrhage type Qualified Code(s): K92.2 - Gastrointestinal hemorrhage, unspecified
--- NOTE | 2024-01-10 17:20 | Dialysis Progress Note ---
Date of Service January 10, 2024 Assessment & Plan (1) Acute respiratory acidosis: Plan: in the setting of chronic respiratory failure >> 4L 02NC at baseline; pC02 on VBG 66 on 12L face mask currently undergoing urgent dialysis for acute respiratory failure, volume overload, hyperkalemia (2) End-stage renal disease on hemodialysis: Plan: tends to have hypotension on HD >> give midodrine 10 mg about 30 min prior to treatement; else continue home midodrine comes in markedly volume overloaded >> 10.6 lb over target weight > needs urgent treatment and has 4kg target >>will plan for another treatment still in ICU with another 4-5 L UF target tomorrow >>>high risk for complications with rectal bleeding, hx of atrial flutter and hypotension, acute on chronic respiratory failure (3) Atrial flutter with rapid ventricular response: Plan: -need to keep hgb > 8 >> transfuse as needed >>continue rate control medications (4) GI bleed: Plan: bright red blood per rectum; pt recently constipated; on PPI gtt; none since arrival to unit > per primary service (5) Goals of care, counseling/discussion: Plan: pt is DNR/DNI > family aware/realistic; they are trying to get through the holidays if able >> they are open to pressors and to pRBC as needed; would not want intubation or defibrillation, no "dire intervention" per daughter Admission and Anticipated Discharge Date Admission Date: January 10, 2024 Subjective seen on dialysis. pressor requirement briefly at start of treatment and on 12L 02 face mask when I saw him w/ 02 sats low 90s. no pain, had been more restless earlier but settled. ongoing fecal urgency but no rectal bleeding so far. ROS limited by still diminished MS. Physical Exam Constitutional: well developed, well nourished, + acute distress (mild ag itation as previously when he wakes up), + ill appearing and + altered mental status Eyes: EOM intact bilaterally ENMT: Mouth: + dry oral mucous membranes Respiratory: + labored breathing and + tachypneic; no respiratory distress Auscultation: + diminished lung sounds, + rhonchi and + wheezes Cardiovascular: Rate/Rhythm: regular rate (HS distant) and regular rhythm Extremities: + edema (1-2+) and + AV fistula (LUE + t/b) Musculoskeletal: Extremities: strength 5/5 throughout Skin: no rashes, warm and dry Psychiatric: Orientation: oriented to person and oriented to place; + uncooperative (needs redirection) Results & Data Vital Signs (Past 12 Hours) Vital Signs Temp Pulse Pulse Resp BP BP Pulse Ox 01/10/24 16:30 78 105/61 01/10/24 16:00 77 116/80 01/10/24 16:00 73 01/10/24 15:45 73 132/65 01/10/24 15:31 36.5 C 78 01/10/24 15:31 131/79 01/10/24 15:30 73 25 H 94 01/10/24 15:21 70 25 H 94 01/10/24 15:16 139/50 L 01/10/24 15:12 83 29 H 94 01/10/24 15:06 71 27 H 97 01/10/24 15:06 128/60 01/10/24 15:06 128/60 01/10/24 15:06 01/10/24 15:03 76 32 H 97 01/10/24 14:52 01/10/24 14:52 01/10/24 14:52 36.5 C 87 32 H 98/73 L 98 01/10/24 14:52 77 01/10/24 14:48 80 30 H 96 01/10/24 14:47 89/73 L 01/10/24 14:47 89/73 L 01/10/24 14:47 89/73 L 01/10/24 14:08 130/75 01/10/24 14:08 77 26 H 96 01/10/24 14:06 130/75 01/10/24 14:06 90 21 91 01/10/24 13:31 107/68 01/10/24 13:30 82 20 96 01/10/24 13:06 91 H 24 99 01/10/24 13:00 149/84 H 01/10/24 12:57 98 H 27 H 01/10/24 12:30 89 21 98 01/10/24 12:26 91 H 99 01/10/24 12:11 90 01/10/24 12:06 84 22 99 01/10/24 12:00 133/94 01/10/24 11:57 83 24 98 01/10/24 11:51 113/71 01/10/24 11:51 97 H 21 96 01/10/24 11:44 91 H 22 97 01/10/24 11:08 89 25 H 100 01/10/24 10:46 114/76 01/10/24 10:46 99 H 25 H 114/76 98 01/10/24 10:44 87 25 H 01/10/24 10:07 87 28 H 93 01/10/24 10:07 86 22 93 01/10/24 10:05 102 H 25 H 100 01/10/24 09:50 94 H 24 98 01/10/24 09:39 37.0 C 90 20 104/64 91 01/10/24 09:36 104/64 Pulse Ox O2 Del Method O2 Del Method O2 Flow Rate O2 Flow Rate FiO2 01/10/24 16:30 01/10/24 16:00 01/10/24 16:00 01/10/24 15:45 01/10/24 15:31 01/10/24 15:31 01/10/24 15:30 01/10/24 15:21 01/10/24 15:16 01/10/24 15:12 01/10/24 15:06 01/10/24 15:06 01/10/24 15:06 01/10/24 15:06 Nasal Cannula 7 01/10/24 15:03 01/10/24 14:52 98 Oxymask 12 01/10/24 14:52 Oxymask 12 01/10/24 14:52 Oxymask 12 01/10/24 14:52 01/10/24 14:48 01/10/24 14:47 01/10/24 14:47 01/10/24 14:47 01/10/24 14:08 01/10/24 14:08 Nasal Cannula 7 01/10/24 14:06 01/10/24 14:06 Nasal Cannula 7 01/10/24 13:31 01/10/24 13:30 01/10/24 13:06 Nasal Cannula 6 01/10/24 13:00 01/10/24 12:57 01/10/24 12:30 01/10/24 12:26 BiPAP 01/10/24 12:11 01/10/24 12:06 BiPAP 01/10/24 12:00 01/10/24 11:57 BiPAP 01/10/24 11:51 01/10/24 11:51 01/10/24 11:44 BiPAP 50 01/10/24 11:08 01/10/24 10:46 01/10/24 10:46 BiPAP 01/10/24 10:44 01/10/24 10:07 50 01/10/24 10:07 BiPAP 50 01/10/24 10:05 01/10/24 09:50 01/10/24 09:39 Nasal Cannula 4 01/10/24 09:36 Laboratory Results none new
--- OUTSIDE RECORDS SUMMARY | 2024-01-10 17:24 | External Medical Summary | Summary of Care ---
Author Name Unknown Organization [facility] Address [address] [place] [address] Phone [phone] Care Team Providers Care Robotics Engineer Name Role Phone Jody Arora MD Primary Care Provide r Reason for Visit * Reason Onset Date Comments Advice 01/03/2024 Encounter Details Date Type Department Care Team (Late st Contact Info) Description 01/03/2024 Telephone NephrologyMitzi [address] [facility] [place] [address] PatelRosy fine MD [address] [place] [address] Advice Allergies No known active allergiesdocumented as of this encounter (statuses as of 01/03/2024) Medications Medication Sig Dispensed Refills Start Date End Date Status nitroglycerin (NITROSTAT) 0.[address] 1 Tablet under the tongue every 5 minutes as needed for Pain, Chest. 08/19/2018 Active Ipratropium-Albutero l 0.5-2.5 (3) MG/3ML Inhalation Solution (Duoneb)Indications: Chronic hypoxemic respiratory failure (HCC),COPD, group C, by GOLD 2017 classification (HCC) Inhale 3 mL via nebulizer every 4 hours as needed for Wheezing. 120 mL 1 10/17/2022 Active Venlafaxine HCl ER 37.5 MG Oral [...] C, by GOLD 2017 classification ([facility]) INHALE 1 DOSE BY MOUTH IN THE MORNING AND 1 AT BEDTIME 60 Each 05/28/2023 Active Ventolin HFA 108 (90 Base) MCG/ACT Inhalation Aerosol SolutionIndications: COPD, group D, by GOLD 2017 classification ([facility]) Inhale 2 Puffs by mouth every [...] C, by GOLD 2017 classification ([facility]),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) 2.5 mg NEBULIZER PRN 04/24/2023 04/23/2024 Active Albuterol Sulfate (Proventil) (2.5 MG/3ML) 0.083% inhalation solution 2.5 mgIndications:Chronic hypoxemic respiratory failure (HCC),COPD, group C, by GOLD 2017 classification ([facility]),[place]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) 2.5 mg NEBULIZER PRN 04/24/2023 04/23/2024 Active documented as of this encounter (statuses as of 01/03/2024) Active Problems Problem Noted Date Diagnosed Date [...] at [facility] per patient "kidney cancer". States he was advised he was not a surgical candidate. Carotid stenosis, right 07/11/2017 History of stroke 07/11/2017 Overview: TIA vs lacunar stroke diagnosed on head CT in [place] Apr 2017. Follow up MRI [facility] no infarct. Anxiety 07/11/2017 HTN, goal below 140/90 08/02/2015 Coronary artery disease Dyslipidemia, goal LDL below 100 documented as of this encounter (statuses as of 01/03/2024) Resolved Problems Problem Noted Date Diagnosed Date [...] as of this encounter (statuses as of 01/03/2024) Immunizations Name Administration Dates Next Due COVID-19 [...] No 05/20/2023 Does the household have a [facility] source [facility] income? (Household - [...] Telephone Encounter - Gabby Sosa RN - 01/03/2024 12:43 PM EDT Report called to [facility] [place] at Dr Patel request. * Telephone Encounter - Gabby Sosa RN - 01/03/2024 10:00 AM EDT TE with pt regarding call in to clinic with c/o upper chest pain with radiation in to back. Dr Patel was notified at pt request and she advises ER for symptoms. Daughter Damaris Garcia notified per request of Dr Patel and she is aware that 911 will be dispatched. [facility] 911 activated and is aware that he is a dialysis pt,O2 dependent and chest pain since middle of the night. Also aware that he will need transported to [facility] due to previous hx. * Telephone Encounter - Karis Hay OSA - 01/03/2024 9:56 AM EDT Patient calling on 01/03/24. States he is having chest pains. Wants to speak with Dr. Patel. documented in this encounter Plan of Treatment Upcoming Encounters Date Type Department Care Team (Late st Contact Info) Description 01/09/2024 11:15 AM EDT Imaging Radiology [address] [place] [id number] 02/10/2024 1:00 PM EST Imaging Radiology [facility] [address] [place] [address] 02/25/2024 4:00 PM EST Office Visit Urology, [address] [place] [id number] Cameron Romeo MD [address] [place] [id number] 02/26/2024 1:40 PM EST Office Visit Family Medicine [address] [place] [phone] Jody Arora MD [address] [place] [address] [place] [id number] 05/11/2024 10:30 AM EST Office Visit Cardiology, [facility] [address] [place] [address] Augustin Mathis, [address] [place] [id number] Health Maintenance Due Date Last Done Comments [...] ASSESSMENT COMPLETED IN PAST YEAR FOR COPD 12/24/2024 12/25/2023 DTap/Tdap Vaccines (2 - Td or Tdap) 10/24/2028 10/24/2018 Pneumococcal Vaccine: 65+ Years Completed 01/16/2018, 01/16/2018, 02/09/2015 Zoster Vaccines Completed 12/11/2019, 10/09/2019 Hepatitis B Vaccine Completed 11/26/2023, 10/29/2023, 09/24/2023, Additional history exists HPV (Gardasil) Vaccine Aged Out No lo nger eligible based on patient's age to complete this topic MENINGOCOCCAL (MENACTRA/MENVEO) Aged Out No longer eligible based on patient's age to complete this topic documented as of this encounter Medical Devices Not on filedocumented as of this encounter Care Teams Robotics Engineer Relationship Specialty Start Date End Date Jody Arora MD [address] [place] [address] [place] [id number] PCP - General Family Medicine 11/21/21 documented as of this encounter
--- OUTSIDE RECORDS SUMMARY | 2024-01-10 17:24 | External Medical Summary | Summary of Care ---
Author Name Unknown Organization [facility] Address [address] [facility] [place] [address] Phone [phone] Care Team Providers Care Shank Cementer Hand Name Role Phone Jody Arora MD Primary Care Provide r Reason for Visit * Reason Onset Date Comments FYI 10/04/2023 Encounter Details Date Type Department Care Team (Late st Contact Info) Description 10/04/2023 Telephone Family [address] [place] [address] Jody Arora MD [address] [place] [address] [place] [address] FYI Allergies No known active allergiesdocumented as of [...] by GOLD 2017 classification ([facility]) INHALE 1 DOSE BY MOUTH IN THE MORNING AND 1 AT BEDTIME 60 Each 05/28/2023 Active Ventolin HFA 108 (90 Base) MCG/ACT Inhalation Aerosol SolutionIndications: COPD, group D, by GOLD 2017 classification ([facility]) Inhale 2 Puffs by mouth every 4 [...] before bedtime. 60 Tablet 5 10/03/2023 Active Hospital, Clinic, or Other Facility Administered Medication Ordered Dose Route Frequency Start Date End Date Status Albuterol Sulfate (Proventil) (5 MG/ML) 0.5% *conc* inhalation solution 2.5 mgIndications:Chronic hypoxemic respiratory failure (HCC),COPD, group C, by GOLD 2017 classification (HCC),Steele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) 2.5 mg NEBULIZER PRN 04/24/2023 04/23/2024 Active Albuterol Sulfate (Proventil) (2.5 MG/3ML) 0.083% inhalation solution 2.5 mgIndications:Chronic hypoxemic respiratory failure (HCC),COPD, group C, by GOLD 2017 classification (HCC),[place]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) 2.5 mg NEBULIZER PRN 04/24/2023 04/23/2024 Active documented as of this encounter (statuses as of 01/03/2024) Active Problems Problem Noted Date Diagnosed Date COPD, group D, by GOLD 2017 classification 04/29 Overview: Per COPD GOLD Classification [place] miners' pneumoconiosis 04/24/2023 Papillary renal cell carcinoma [...] mass 07/11/2017 Overview: 2018 biopsy at [facility]/[place] per patient "kidney cancer". States he was advised he was not a surgical candidate. Carotid stenosis, right 07/11/2017 History of stroke 07/11/2017 Overview: TIA vs lacunar stroke diagnosed on head CT in [place] Apr 2017. Follow up MRI [facility] no infarct. Anxiety 07/11/2017 HTN, goal [...] No 05/20/2023 Does the household have a [facility] source of income? (Household - for ages [...] Telephone Encounter - Susan Norton LPN - 10/04/2023 10:15 AM EDT Patient is calling. He was to have a blood pressure check on 10/08 with a nurse. He has a cardiology appointment on 10/10/23 Cancelled his nurse visit since he will be seeing the heart doctor and it will be in his chart. SACHIN documented in this encounter Plan of Treatment Upcoming Encounters Date Type Department Care Team (Late st Contact Info) Description 01/09/2024 11:15 AM EDT Imaging Radiology [address] [place] [address] 02/10/2024 1:00 PM EST Imaging Radiology [facility] [address] [place] [address] 02/25/2024 4:00 PM EST Office Visit Urology, [facility] [address] [facility] [place] [address] Cameron Romeo MD [address] [place] [address] 02/26/2024 1:40 PM EST Office Visit Family Medicine [address] [place] [address] Jody Arora MD [address] [place] [address] [place] [address] 05/11/2024 10:30 AM EST Office Visit Cardiology, [facility] [address] [place] [address] Augustin Mathis, [address] [place] [address] Health Maintenance Due Date Last Done Comments [...] filedocumented as of this encounter Care Teams Shank Cementer Hand Relationship Specialty Start Date End Date Jody Arora MD [address] [place] [address] [place] [phone] PCP - General Family Medicine 11/21/21 documented as of this encounter
--- OUTSIDE RECORDS SUMMARY | 2024-01-10 17:24 | External Medical Summary | Summary of Care ---
Author Name Unknown Organization [facility] Address [address] [place] [address] Phone [phone] Care Team Providers Care Care Management Specialist Name Role Phone Jody Arora MD Primary Care Provide r Reason for Visit * Reason Onset Date Comments Advice 01/03/2024 Encounter Details Date Type Department Care Team (Late st Contact Info) Description 01/03/2024 Telephone NephrologyMitzi [address] [facility] [place] [address] PatelRosy fine MD [address] [place] [address] Advice Allergies No known active allergiesdocumented as [...] C, by GOLD 2017 classification ([facility]),[place]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) 2.5 mg NEBULIZER PRN 04/24/2023 04/23/2024 Active Albuterol Sulfate (Proventil) (2.5 MG/3ML) 0.083% inhalation solution 2.5 mgIndications:Chronic hypoxemic respiratory failure (HCC),COPD, group C, by GOLD 2017 classification ([facility]),[place]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) 2.5 mg NEBULIZER PRN 04/24/2023 04/23/2024 Active documented as of this encounter (statuses as of 01/03/2024) Active Problems Problem Noted Date Diagnosed Date COPD, group D, by GOLD 2017 classification 04/29 Overview: Per COPD GOLD Classification [place] 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 States he was advised he was not a surgical candidate. Carotid stenosis, right 07/11/2017 History of stroke 07/11/2017 Overview: TIA vs lacunar stroke diagnosed on head CT in [place] Apr 2017. Follow up MRI [facility] no infarct. Anxiety 07/11/2017 HTN, goal [...] No 05/20/2023 Does the household have a [facility] source [facility] income? (Household - for ages [...] Damaris Garcia notified per request of Dr aPtel and she is aware that 911 will be dispatched. [facility] 911 activated and is aware that he is a dialysis pt,O2 dependent and chest pain since middle of the night. Also aware that he will need transported to [facility] due to previous hx. * Telephone Encounter - Karis Hay OSA - 01/03/2024 9:56 AM EDT Patient calling on 01/03/24. States he is having chest pains. Wants to speak with Dr. Patel. documented in this encounter Plan of Treatment Upcoming Encounters Date Type Department Care Team (Late st Contact Info) Description 01/09/2024 11:15 AM EDT Imaging Radiology [address] [place] [address] 02/10/2024 1:00 PM EST Imaging Radiology [facility] [address] [place] [address] 02/25/2024 4:00 PM EST Office Visit Urology, [address] [place] [address] Cameron Romeo MD [address] [place] [address] [place] [address] 02/26/2024 1:40 PM EST Office Visit Family Medicine [address] [place] [address] Jody Arora MD [address] [place] [address] [place] [address] 05/11/2024 10:30 AM EST Office Visit Cardiology, [address] [place] [address] Augustin Mathis, DO [address] [place] [address] Health Maintenance Due Date Last Done Comments [...] filedocumented as of this encounter Care Teams Care Management Specialist Relationship Specialty Start Date End Date Jody Arora MD [address] [place] [address] [place] [phone] PCP - General Family Medicine 11/21/21 documented as of this encounter
--- OUTSIDE RECORDS SUMMARY | 2024-01-10 17:24 | External Medical Summary | Summary of Care ---
Author Name Unknown Organization [facility] Address [address] [place] [address] Phone [phone] Care Team Providers Care Bilingual Administrative Assistant Name Role Phone Jody Arora MD Primary Care Provide r Reason for Visit * Reason Comments Hospital Follow-Up Encounter Details Date Type Department Care Team (Late st Contact Info) Description 12/25/2023 3:00 PM EDT Office Visit Cardiology, [facility] [address] [place] [address] Mike Gooden, [address] [place] [address] Paroxysmal atrial fibrillation (HCC)*; Bifascicular bundle branch block; Coronary artery disease involving nenana coronary artery of nenana heart without angina pectoris Allergies No known active allergiesdocumented as of this encounter (statuses as of 01/07/2024) Medications Medication Sig Dispensed Refills Start Date End Date Status nitroglycerin (NITROSTAT) 0.[address] 1 Tablet under the tongue every 5 minutes as needed for Pain, Chest. 08/19/2018 Active Ipratropium-Albuter ol 0.5-2.5 (3) MG/3ML Inhalation [...] 11/11/2023 Active LORazepam 0.5 MG Oral Tablet (Ativan)Indications :Anxiety,ESRD on dialysis (HCC) 1 tablet 15-20 minutes before dialysis sessions 30 Tablet 12/11/2023 Active Melatonin 10 MG Oral Capsule Take 1 Capsule by mouth at bedtime. Discontinu ed(Patient preference /discontin uation) Hospital, Clinic, or Other Facility Administered Medication Ordered Dose Route Frequency Start Date End Date Status Albuterol Sulfate (Proventil) (5 MG/ML) 0.5% *conc* inhalation solution 2.5 mgIndications:Chronic hypoxemic respiratory failure (HCC),COPD, group C, by GOLD 2017 classification (HCC),[place]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) 2.5 mg NEBULIZER PRN 04/24/2023 04/23/2024 Active Albuterol Sulfate (Proventil) (2.5 MG/3ML) 0.083% inhalation solution 2.5 mgIndications:Chronic hypoxemic respiratory failure (HCC),COPD, group C, by GOLD 2017 classification (HCC),[place]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) 2.5 mg NEBULIZER PRN 04/24/2023 04/23/2024 Active documented as of this encounter (statuses as of 01/07/2024) Active Problems Problem Noted Date Diagnosed Date COPD, group D, by GOLD 2017 classification 04/29 Overview: Per COPD GOLD Classification [place] miners' pneumoconiosis 04/24/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 States he was advised he was not a surgical candidate. Carotid stenosis, right 07/11/2017 History of stroke 07/11/2017 Overview: TIA vs lacunar stroke diagnosed on head CT in [place] Apr 2017. Follow up MRI [facility] no infarct. Anxiety 07/11/2017 HTN, goal below 140/90 08/02/2015 Coronary artery disease Dyslipidemia, goal LDL below 100 documented as of this encounter (statuses as of 01/07/2024) Resolved Problems Problem Noted Date Diagnosed Date [...] as of this encounter (statuses as of 01/07/2024) Immunizations Name Administration Dates Next Due COVID-19 [...] Sign Reading Time Taken Comments Blood Pressure 96/54 12/25/2023 3:15 PM EDT Pulse 150 12/25/2023 3:15 PM EDT Temperature - - Respiratory Rate 22 12/25/2023 3:15 PM EDT Oxygen Saturation 87% 12/25/2023 3:15 PM EDT Inhaled Oxygen Concentration - - Weight 92.4 kg (203 lb 12.8 oz) 12/25/2023 3:15 PM EDT Height - - Body Mass Index 34.98 05/29/2023 1:38 PM EDT documented in this encounter Progress Notes * Mike Gooden, DO - 12/25/2023 3:23 PM EDT SUBJECTIVE: Patient returns today for hospital follow-up. Admitted to [facility] 11/03/2023 secondary to atrial fibrillation with rapid ventricular response, acute on chronic diastolic heart failure, and chronic hypoxemic respiratory failure. Volume status managedby Nephrology with torsemide and hemodialysis. Metoprolol titrated to 50 mg twice daily. Reduced dose Eliquis continued during hospitalization. Cardiac history includes PCI of the circumflex 1998, CVA with right-sided weakness, DVT/PE, most recent coronary angiography 2019 revealing a patent stent and mild luminal irregularities otherwise. Since most recent hospital discharge, it appears metoprolol was reduced from 50 mg twice daily downto 25 mg twice daily. Today, patient presents with chest tightness, tachycardia, shortness of breath, and cough with yellow sputum production. Room air oxygen saturation 86% on presentation. ECG with rapid atrial flutter.Patient noting mild 2/10 chest tightness. ECG: Probable atrial flutter with two-to-one conduction, ventricular rate 151 beats per minute, right bundle branch block. Occasional PVC or aberrantly conducted complexes. 2D echocardiogram report [facility] 11/04/2023: LVEF 60-65% Moderate concentric left ventricular hypertrophy. Mild tricuspid regurgitation. Estimated systolic pulmonary pressure 43 mm Hg. ROS: All others negative other than those noted in the HPI. 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 ([facility]) History of basal cell carcinoma Old myocardial infarct C7 radiculopathy Lumbosacral radiculopathy at L5 Renal osteodystrophy Hx of nonmelanoma skin cancer AK (actinic keratosis) Kidney disease, chronic, stage IV (GFR 15-29 ml/min) ([facility]) BPH without obstruction/lower urinary tract symptoms Right sided weakness Papillary renal cell carcinoma (HCC) [place]son miners' pneumoconiosis ([facility]) COPD, group D, by GOLD 2017 classification ([facility]) Social History Tobacco Use Smoking status: Former Types: Cigars Smokeless tobacco: Never Tobacco comments: one cigar a day Vaping Use Vaping status: Never Used Substance Use Topics Alcohol use: Not Currently Comment: rare Drug use: No Review of patient's allergies indicates: No Known Allergies Current Outpatient Medications Medication Sig Dispense Refill nitroglycerin (NITROSTAT) 0.[address] 1 Tablet under the tongue every 5 minutes as needed forPain, Chest. Ipratropium-Albuterol 0.5-2.5 (3) MG/3ML Inhalation Solution (Duoneb) Inhale 3 mL via nebulizer every 4 hours as needed for Wheezing. 120 mL 1 Venlafaxine HCl ER 37.5 MG Oral Capsule Extended Release 24 Hour (Effexor XR) TAKE 1 CAPSULE BY MOUTH ONCE DAILY . DO NOT CHEW,CRUSH OR CUT 90 Capsule 3 Tamsulosin HCl 0.4 MG Oral Capsule (Flomax) Take 1 capsule by mouth in the morning 90 Capsule 1 oxygen IN GAS Use 4 L/min(Oxygen) as directed. Uses "in the evening" Fluticasone-Salmeterol 250-50 MCG/ACT Inhalation Aerosol Powder Breath Activated (Advair Diskus) INHALE 1 DOSE BY MOUTH IN THE MORNING AND 1 AT BEDTIME 60 Each 0 Ventolin HFA 108 (90 Base) MCG/ACT Inhalation Aerosol Solution Inhale 2 Puffs by mouth every 4 hours as needed for Wheezing. 18 g 2 Torsemide 20 MG Oral Tablet (Demadex) Take 4 Tablets by mouth 2 times a day in the morning and at noon. (Patient taking differently: Take 5 Tablets by mouth 2 times a day in the morning and at noon. Takes one tab in am and one tab in pm) 120 Tablet 5 Renal Vitamin 0.8 MG Oral Tablet Take [...] Take with meals. Take 1 with snack. Metoprolol Tartrate 25 MG Oral Tablet (Lopressor) Take 1 Tablet by mouth in the morning and 1 Tablet before bedtime. 60 Tablet 5 Eliquis 2.5 MG Oral Tablet Take 1 Tablet by mouth in the morning and 1 Tablet before bedtime. 60 Tablet 5 Rosuvastatin Calcium 10 MG Oral Tablet (Crestor) TAKE 1 TABLET BY MOUTH IN THE MORNING 90 Tablet 1 busPIRone HCl 5 MG Oral Tablet (Buspar) Take 1 Tablet by mouth in the morning and 1 Tablet before bedtime. 60 Tablet 5 LORazepam 0.5 MG Oral Tablet (Ativan) 1 tablet 15-20 minutes before dialysis sessions 30 Tablet 0 Menthol-Zinc Oxide 0.44-20.6 % External Ointment (Calmoseptine) Apply to sore skin twice a day. 71 g 2 Current Facility-Administered Medications Medication Dose Route Frequency Provider Last Rate Last Admin Albuterol Sulfate (Proventil) (5 MG/ML) 0.5% *conc* inhalation solution 2.5 mg 2.5 mg Nebulizer Gilbert Alexander MD Albuterol Sulfate (Proventil) (2.5 MG/3ML) 0.083% inhalation solution 2.5 mg 2.5 mg Nebulizer JOSE ALBERTON Gilbert Thomas MD Lipid Panel Results: Results for orders placed or performed in visit on 07/23/23 LIPID PANEL WITHOUT DIRECT LDL Result Value Ref Range Triglycerides 117 <=174 mg/dL Cholesterol 136 <200 mg/dL HDL Cholesterol 48 >39 mg/dL Non-HDL Cholesterol 88 <=159 mg/dL LDL Cholesterol 65 <=129 mg/dL Lab Results Component Value Date/Time TSH - [facility] 1.49 01/08/2019 10:32 AM TSH - OUTSIDE LAB 1.900 09/07/2020 12:00 AM TSH - OUTSIDE LAB 1.950 03/23/2020 12:00 AM TSH - OUTSIDE LAB 1.790 09/29/2019 12:00 AM CBC Results: Results for orders placed or performed in visit on 06/20/22 CBC Result Value Ref Range WBC 6.04 4.00 - 10.80 K/uL RBC 3.62 4.50 - 5.25 M/uL HGB 9.5 (L) 14.0 - 16.8 g/dL HCT 32.1 (L) 40.0 - 48.4 % MCV 88.7 82.0 - 99.5 fL MCH 26.2 27.0 - 34.0 pg MCHC 29.6 32.0 - 36.0 g/dL RDW 15.1 11.5 - 15.5 % PLT 136 (L) 140 - 400 K/uL MPV 11.4 6.6 - 11.1 fL nRBCs 0 <=0 /100 WBCs OBJECTIVE/PHYSICAL EXAMINATION: BP 96/54 (BP Site: Left Arm, BP Position: Sitting, BP Cuff Size: Large) | Pulse 140 | Resp 22 | Wt 92.4 kg (203 lb 12.8 oz) | BMI 34.98 kg/m | BSA 2.04 m General: NAD, AAO x3, overweight. HEENT: Normocephalic. Atraumatic. Conjunctiva pink, no scleral icterus. No carotid bruits, the carotid upstrokes are brisk. No JVD. No HJR Heart: Regular tachycardia, normal S-1 and S-2. No murmurs or rubs appreciated. PMI is not displaced. No RV heave. Lungs: Diminished breath sounds at the bases. + bilateral rhonchi, inspiratory and expiratory wheezing. Abdomen: Normal bowel sounds. Soft. Nontender. No masses or organomegaly. No abdominal bruits. Extremities:Mild bilateral ankle edema. Pulses: radial=2/4, Dorsalis pedis =2/4, posterior tibial=2/4. Neuro: No focal deficits. ASSESSMENT: 1. Atrial flutter with 2:1 conduction and rapid ventricular response. 2. Acute on chronic heart failure with preserved ejection fraction 3. COPD with acute exacerbation and suspected pneumonia -chronic hypoxia requiring 4 L nasal cannula 4. Chronic hypotension managed with midodrine 5. ESRD on HD PLAN: Supplemental oxygen, 4 L nasal cannula applied. Recommend ER evaluation. Patient agreeable to transfer via EMS. Initiate treatment with IV, low-dose metoprolol upon arrival to the ER. Titrate oral metoprolol, as blood pressure tolerates, to improve rate control. Scheduled dialysis treatment December 26, 2023. Case discussed with ER physician and inpatient Cardiology service. I also contacted patient's daughter, Dr. Damaris Pinedo who is in agreement with transfer to [facility]. I spent a total of 40-54 minutes (exact time 41 mins) on the date of service in preparation, delivery, and documentation of the care provided to Justin Pinedo excluding any time spent in the performance of separately billed services or time spent by another provider/QHP. Mike Gooden DO, [facility] Associate Cardiology - Kassidy [place] documented in this encounter Procedure Notes * Sarath Bruce MD - 12/25/2023 3:30 PM EDTAssociated Order(s): EKG REASON FOR STUDY: Hospital f/u;;Hospital f/u; CONCLUSIONS: Atrial flutter with 2 to 1 block with Premature ventricular complexes or Fusion complexes Right bundle branch block Left anterior fascicular block Bifascicular block Abnormal ECG When compared with ECG of 10-Oct-2023 11:07, Atrial flutter has replaced Sinus rhythm Vent. rate has increased by 94 bpm Ventricular Rate: 151 Atrial Rate: 0 QRS Duration: 128 QT/QTc: 328/519 ms P-R-T [place]: 0 : -79 : 85 degrees documented in this encounter Nursing Notes * Leyla Ruiz CMA - 12/25/2023 3:41 PM EDT Examination Room: 11 Name: Justin Pinedo Date of : (1940). Reason for Visit: Hospital f/u Interim Hospitalization(s): [facility] Problems/Concerns: Occasional lightheadedness. LE edema improved. Chest Pain/SOB: Currently having chest tightness. Increased respiratory effort. Productive cough beginning 2 days ago. [facility] Discussed: Not applicable [...] Description 01/09/2024 11:15 AM EDT Imaging Radiology [address] [place] [address] 02/10/2024 1:00 PM EST Imaging Radiology [address] [facility] [place] [address] 02/25/2024 4:00 PM EST Office Visit Urology, [address] [place] [address] Cameron Romeo MD [address] [place] [address] 02/26/2024 1:40 PM EST Office Visit Family Medicine [address] [place] [address] Jody Arora MD [address] [place] [address] [place] [address] 05/11/2024 10:30 AM EST Office Visit Cardiology, [facility] [address] [facility] [place] [address] Augustin Mathis DO [address] [place] [address] Health Maintenance Due Date Last Done Comments [...] ROUTINE ECG W/LEAST 12 LDS W/I&R Routine 12/25/2023 3:30 PM EDT Paroxysmal atrial fibrillation (HCC) Bifascicular bundle branch block Coronary artery disease involving nenana coronary artery of nenana heart without angina pectoris documented in this encounter Results * EKG (12/25/2023 3:30 PM EDT) 12/25/2023 3:30 PM EDT Narrative Procedure Note Sarath Bruce MD - 12/25/2023 3:30 PM EDT REASON FOR STUDY: Hospital f/u;;Hospital f/u; CONCLUSIONS: Atrial flutter with 2 to 1 block with Premature ventricular complexes orFusion complexes Right bundle branch block Left anterior fascicular block Bifascicular block Abnormal ECG When compared with ECG of 10-Oct-2023 11:07, Atrial flutter has replaced Sinus rhythm Vent. rate has increased by 94 bpm Ventricular Rate: 151 Atrial Rate: 0 QRS Duration: 128 QT/QTc: 328/519 ms P-R-T [place]: 0 : -79 : 85 degrees Mike Gooden DO EKG Performing Organization Address City/State/[facility] Co de Phone Number [facility] documented in this encounter Visit Diagnoses Diagnosis Paroxysmal atrial fibrillation (HCC)- Primary Atrial fibrillation Bifascicular bundle branch block Other bilateral bundle branch block Coronary artery disease involving nenana coronary artery of nenana heart without angina pectoris documented in this encounter Care Teams Bilingual Administrative Assistant Relationship Specialty Start Date End Date Jody Arora MD [address] [place] [address] [place] [address] PCP - General Family Medicine 11/21/21 documented as of this encounter
--- OUTSIDE RECORDS SUMMARY | 2024-01-10 17:25 | External Medical Summary | Summary of Care ---
Author Name Unknown Organization [facility] Address [address] [place] [address] Phone [phone] Care Team Providers Care Head Of Human Resources Name Role Phone Jody Arora MD Primary Care Provide r Reason for Referral * Evaluate & Treat - Unlimited Visits (Within 10 days (routine)) - Authorized Specialty Diagnoses / Procedures Referred By Contact Referred To Contact Cardiac Electrophysiology / Cardiology Diagnoses Atrial fibrillation, unspecified type (HCC) Jody Arora MD [address] [place] [address] [place] [address] Referral ID Status Reason Start Date Expiration Date Visits Requested Visits Authorized [id number] Authorized Specialty Services Required 4 [phone] Question Answer Referral Priority Within 10 days (routine) Where should this appointment be scheduled? [facility] Encounter Details Date Type Department Care Team (Late st Contact Info) Description 01/03/2024 Orders Only Family Medicine [address] [place] [phone] Jody Arora MD [address] [place] [address] [place] [id number] Atrial fibrillation, unspecified type (HCC)* Allergies No known active allergiesdocumented as [...] MG Oral Tablet (Demadex)Indications :ESRD needing dialysis ([facility]) Take 4 Tablets by mouth 2 [...] by GOLD 2017 classification ([facility]),[place]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) 2.5 mg NEBULIZER PRN 04/24/2023 04/23/2024 Active Albuterol Sulfate (Proventil) (2.5 MG/3ML) 0.083% inhalation solution 2.5 mgIndications:Chronic hypoxemic respiratory failure (HCC),COPD, group C, by GOLD 2017 classification ([facility]),[place]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) 2.5 mg NEBULIZER PRN 04/24/2023 04/23/2024 Active documented as of this encounter (statuses as of 01/03/2024) Active Problems Problem Noted Date Diagnosed Date COPD, group D, by GOLD 2017 classification 04/29 Overview: Per COPD GOLD Classification [place] miners' pneumoconiosis 04/24/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 States he was advised he was not a surgical candidate. Carotid stenosis, right 07/11/2017 History of stroke 07/11/2017 Overview: TIA vs lacunar stroke diagnosed on head CT in [place] Apr 2017. Follow up MRI [facility] no infarct. Anxiety 07/11/2017 HTN, goal [...] Description 01/09/2024 11:15 AM EDT Imaging Radiology [address] [place] [address] 02/10/2024 1:00 PM EST Imaging Radiology [address] [place] [address] 02/25/2024 4:00 PM EST Office Visit Urology, [place] [address] [address] [place] [address] Cameron Romeo MD [address] [place] [address] 02/26/2024 1:40 PM EST Office Visit Family Medicine [address] [place] [phone] Jody Arora MD [address] [place] [address] [place] [address] 05/11/2024 10:30 AM EST Office Visit Cardiology, [facility] [address] [place] [address] Augustin Mathis DO [address] [place] [address] Scheduled Referrals Name Type Priority Associated Diagnoses Order Schedule ELECTROPHYSIOLOGY REFERRAL OP Referral Within 10 days (routine) Atrial fibrillation, unspecified type (HCC) Ordered: 01/03/2024 Health Maintenance Due Date Last Done Comments [...] as of this encounter Visit Diagnoses Diagnosis Atrial fibrillation, unspecified type (HCC)- Primary documented in this encounter Care Teams Head Of Human Resources Relationship Specialty Start Date End Date Jody Arora MD [address] [place] [address] [place] [phone] PCP - General Family Medicine 11/21/21 documented as of this encounter
[2024-01-10] MEDS: MIDODRINE HCL 10 MG TAB PO ONE (18:07)
[2024-01-10 19:25] LABS: Hematocrit (blood only) 29.4 % (42.0-52.0); Hemoglobin 9.2 g/dl (14.0-18.0); Mean Corpuscular Hemoglobin 28.5 pg (25.0-34.0); Mean Corpuscular Hgb Conc 31.3 g/dL (32.0-36.0); Mean Platelet Volume 10.3 fL (9.4-12.4); Platelet Count 202 K/uL (130-400); RDW Coefficient of Variation 17.2 % (11.5-14.5); RDW Standard Deviation 57.1 fL (36.4-46.3); Red Blood Count 3.23 M/uL (4.70-6.10); White Blood Count 26.64 K/ul (4.8-10.8)
[2024-01-10 19:40] LABS: Basophils # (auto) 0.04 K/uL (0.00-0.20); Basophils % (auto) 0.2 %; Eosinophils # (auto) 0.08 K/uL (0.00-0.50); Eosinophils % (auto) 0.3 %; Immature Granulocytes # (auto) 0.22 K/uL (0.01-0.20); Immature Granulocytes % (auto) 0.8 %; Lymphocytes # (auto) 0.13 K/uL (1.20-3.40); Lymphocytes % (auto) 0.5 %; Monocytes # (auto) 0.62 K/uL (0.11-0.59); Monocytes % (auto) 2.3 %; Neutrophils # (auto) 25.55 K/uL (1.40-6.50); Neutrophils % (auto) 95.9 %; Polychromasia 1+
[2024-01-10] MEDS: PIPERACILLIN/TAZOBACTAM 4.5 GM/100 ML BAG IV SCH (20:27)
--- NOTE | 2024-01-10 20:29 | Electrocardiogram Report ---
Test Reason : Blood Pressure : */* mmHG Vent. Rate : 84 BPM Atrial Rate : * BPM P-R Int : * ms QRS Dur : 146 ms QT Int : 374 ms P-R-T Axes : * -66 55 degrees QTcB Int : 443 ms Poor data quality, interpretation may be adversely affected Atrial fibrillation Right bundle branch block Left anterior fascicular block Bifascicular block Abnormal ECG When compared with ECG of 03-Jan-2024 11:36, No significant change Confirmed by Lauro Camacho ([id number]) on 01/10/2024 8:28:48 PM Referred By: Confirmed By: Lauro Camacho
[2024-01-10 23:47] LABS: Anion Gap 15 (3-11); BUN Creatinine Ratio 8.4 (10-20); Blood Urea Nitrogen 43 mg/dl (6-23); Calcium 8.3 mg/dl (8.6-10.3); Carbon Dioxide 24 mmol/L (21-32); Chloride 94 mmol/L (98-107); Creatinine Clr Calc Pharmacy 11.5 ml/min; Glucose 235 mg/dl (70-99(Fasting)); Sodium 133 mmol/L (136-145)
[2024-01-11] MEDS: LEVALBUTEROL 1.25 MG/3 ML NEB NEB PRN (04:22)
--- OUTSIDE RECORDS SUMMARY | 2024-01-11 05:05 | External Medical Summary | Summary of Care ---
Author Name Unknown Organization [facility] Address [address] [place] [address] Phone [phone] Care Team Providers Care Chef Broiler Or Fry Name Role Phone Jody Arora MD Primary Care Provide r Reason for Visit * Reason Onset Date Comments STAIR 02/21/2022 AAA Encounter Details Date Type Department Care Team (Late st Contact Info) Description 02/21/2022 Telephone Vascular Surg [facility], [place] [address] [place] [address] Program, [facility] [address] [place] [address] STAIR (AAA) Allergies No known active allergiesdocumented as of this encounter (statuses as of 01/10/2024) Medications Medication Sig Dispensed Refills Start Date End Date Status nitroglycerin (NITROSTAT) 0.[address] 1 Tablet under the tongue every 5 minutes as needed for Pain, Chest. 9 Active rosuvastatin (CRESTOR) 40 MG Tablet Take 1 Tablet by mouth in the morning. 8 04/24/19 23 Discontinued(Ref ill) Losartan Potassium 25 MG Oral Tablet (Cozaar) Take 1 Tab by mouth daily. 90 Tab 3 1 04/10/19 23 Discontinued hydrALAZINE HCl 25 MG Oral Tablet (Apresoline) Take 1 Tablet by mouth 2 times a day. 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 DO NOT CHEW,CRUSH ORCUT. 90 Capsule 1 2 07/18/19 23 Discontinued Ventolin HFA 108 (90 Base) MCG/ACT Inhalation Aerosol SolutionIndication s:COPD exacerbation (HCC) Inhale by mouth 2 Puffs every 4 hours as needed for Wheezing. 18 g 1 2 07/23/19 24 Discontinued(Med ication List Clean Up) NIFEdipine ER Osmotic Release 60 MG Oral Tablet Extended Release 24 Hour Take by mouth 1 Tablet in the morning AND 1 Tablet before bedtime. 180 Tablet 3 2 12/22/19 23 Discontinued(Ref ill) Fluticasone Propionate (Inhal) 50 MCG/BLIST Inhalation Aerosol Powder Breath Activated Inhale 1 Puff by mouth in the morning and 1 Puff before bedtime. 04/03/19 24 Discontinued(Med ication/Dose Changed) Albuterol Sulfate (2.5 MG/3ML) 0.083% Inhalation Nebulization Solution (Proventil)Indicat ions:Pneumonia due to COVID-19 virus Inhale 1 Vial (2.5 mg) via nebulizer every 6 hours as needed for Wheezing. 360 mL 2 06/20/19 24 Discontinued(Ref ill) guaiFENesin ER 600 MG Oral Tablet Extended Release 12 Hour (Mucinex)Indicatio ns:Pneumonia due to COVID-19 virus Take 1 Tablet (600 mg) by mouth in the morning and 1 Tablet (600 mg) in the evening. Take with plenty of water. Do not cut, crush or chew. 60 Tablet 2 05/03/19 23 Discontinued Ipratropium-Albute rol 0.5-2.5 (3) MG/3ML Inhalation Solution (Duoneb)Indication s:Chronic hypoxemic respiratory failure (HCC),COPD, group C, by GOLD 2017 classification (HCC) Inhale 3 mL via nebulizer in the morning and 3 mL at noon and 3 mL in the evening and 3 mL before bedtime. 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 Follow up MRI [facility] no infarct. Anxiety 07/11/2017 HTN, goal below 140/90 08/02/2015 Coronary artery disease Dyslipidemia, goal LDL below 100 documented as of this encounter (statuses as of 01/10/2024) Resolved Problems Problem Noted Date Diagnosed Date [...] as of this encounter (statuses as of 01/10/2024) Immunizations Name Administration Dates Next Due COVID-19 [...] encounter Miscellaneous Notes * Telephone Encounter - Destiny Enrique LPN - 01/10/2024 10:23 AM EDT Patient cancelled testing for AAA. Left message for patient to return call. * Addendum Note - Destiny Enrique LPN - 11/20/2023 12:02 PM EDTAddended by: DESTINY ENRIQUE on: 11/20/2023 12:02 PM Modules accepted: Orders * Telephone Encounter - Destiny Enrique LPN - 11/20/2023 12:01 PM EDT Patient returned call. Scheduled imaging for next month. Will continue to track. * Telephone Encounter - Destiny Enrique LPN - 11/20/2023 9:02 AM EDT AAA - Communication to Patient Patient is due for imaging of AAA next month. Left message for patient to return call. Destiny Enrique LPN Coordinator JUAN ANTONIO (System to Track Abnormalities of Importance Reliably) [phone] * Telephone Encounter - Destiny Enrique LPN - 05/18/2022 8:57 AM EST Patient managed in STAIR Program for Abdominal Aortic Aneurysm - banner added * Telephone Encounter - Destiny Enrique LPN - 02/21/2022 2:43 PM EST AAA - Clinical Summary Name: Justin Pinedo Age: [id number] year old Patient Identified by: NLP Report Imaging Interpretation: Ultrasound Type of Result: AAA 3.0 to 3.9 cm AAA Care Plan Recommendation: Duplex ultrasound in 2 years Next steps: No action needed at this time Destiny Enrique LPN Coordinator JUAN ANTONIO (System to Track Abnormalities of Importance Reliably) US RENAL 12/27/2021 Narrative EXAM RENAL ULTRASOUND - 12/27/2021 12:34 pm HISTORY left renal mass COMPARISON RENAL ULTRASOUND 03/05/2018 TECHNIQUE Sonogram of both kidneys was performed. FINDINGS The right kidney measures 11.1 x 5.8 x 6.2 cm . Renal size is normal. Renal echogenicity is increased. Small scattered cysts. No hydronephrosis or shadowing calculi are seen. The left kidney measures 11.7 x 5.2 x 5.7 cm . Renal size is normal. Renal echogenicity is increased. There is a hypoechoic mass at the upper-mid pole medially measuring 2.2 x 1.6 x 1.7 cm. There is a cyst at the lower pole of the left kidney with a septation measuring 4.7 x 2.8 x 3.6 cm. This is unchanged. No hydronephrosis or shadowing calculi are seen. The urinary bladder is partially distended. The visualized aorta demonstrates a distal abdominal aortic aneurysm measuring 3.3 cm in greatest dimension. Impression IMPRESSION Increased echogenicity of the kidneys suggesting medical renal disease. Persistent left upper pole mass suspicious for neoplasm. Mild 3.3 cm distal abdominal aortic aneurysm. AAA - Communication to Patient Patient contacted, recommendations reviewed, patient agrees, follow-up letter sent. Enrolled in [facility] PCP - SACHIN Enriuqe LPN Coordinator ST[facility] (System to Track Abnormalities of Importance Reliably) [phone] documented in this encounter Plan of Treatment Upcoming Encounters Date Type Department Care Team (Late st Contact Info) Description 02/10/2024 1:00 PM EST Imaging Radiology [facility] [address] [place] [address] 02/25/2024 4:00 PM EST Office Visit Urology, [address] [place] [address] Cameron Romeo MD [address] [place] [address] 02/26/2024 1:40 PM EST Office Visit Family Medicine [address] [phone] Jody Arora MD [address] [place] [address] [place] [address] 05/11/2024 10:30 AM EST Office Visit Cardiology, [address] [place] [address] Augustin Mathis, [address] [place] [address] Scheduled Orders Name Type Priority Associated Diagnoses Orde r Schedule VASC AORTIC DUPLEX EVAL-COMPLETE Medical Imaging Routine AAA (abdominal aortic aneurysm) (HCC) Ordered: 11/20/2023 Health Maintenance Due Date Last Done Comments [...] as of this encounter Visit Diagnoses Diagnosis AAA (abdominal aortic aneurysm) (HCC)- Primary Abdominal aneurysm without mention of rupture documented in this encounter Care Teams Chef Broiler Or Fry Relationship Specialty Start Date End Date Jody Arora MD [address] [place] [address] [place] [phone] PCP - General Family Medicine 11/21/21 documented as of this encounter
[2024-01-11 05:11] LABS: Hematocrit (blood only) 23.8 % (42.0-52.0); Hemoglobin 7.4 g/dl (14.0-18.0); Mean Corpuscular Hgb Conc 31.1 g/dL (32.0-36.0); Mean Corpuscular Volume 93.3 fL (80.0-100.0); Mean Platelet Volume 11.4 fL (9.4-12.4); Platelet Count 135 K/uL (130-400); RDW Coefficient of Variation 17.5 % (11.5-14.5); RDW Standard Deviation 58.4 fL (36.4-46.3); Red Blood Count 2.55 M/uL (4.70-6.10)
[2024-01-11 05:12] LABS: Basophils # (auto) 0.01 K/uL (0.00-0.20); Basophils % (auto) 0.1 %; Immature Granulocytes # (auto) 0.09 K/uL (0.01-0.20); Immature Granulocytes % (auto) 0.6 %; Lymphocytes # (auto) 0.09 K/uL (1.20-3.40); Lymphocytes % (auto) 0.6 %; Monocytes # (auto) 0.88 K/uL (0.11-0.59); Monocytes % (auto) 5.9 %; Neutrophils # (auto) 13.73 K/uL (1.40-6.50); Neutrophils % (auto) 92.8 %; RBC Morphology Unremarkable
[2024-01-11 05:15] LABS: Anion Gap 14 (3-11); BUN Creatinine Ratio 9.1 (10-20); Blood Urea Nitrogen 51 mg/dl (6-23); Calcium 8.2 mg/dl (8.6-10.3); Carbon Dioxide 27 mmol/L (21-32); Chloride 94 mmol/L (98-107); Creatinine Clr Calc Pharmacy 10.4 ml/min; Glucose 232 mg/dl (70-99(Fasting)); Magnesium 2.2 mg/dl (1.7-2.4); Phosphorus 6.4 mg/dl (2.5-4.9); Sodium 135 mmol/L (136-145)
[2024-01-11] MEDS ORDERED: MIDODRINE HCL 10 MG TAB PO SCH (08:00)
[2024-01-11] MEDS ORDERED: GLUCAGON FOR INJ 1 MG VIAL SQ PRN (08:32)
[2024-01-11] MEDS ORDERED: GLUCOSE 10 TAB/TUBE PO PRN (08:32)
[2024-01-11] MEDS ORDERED: CARBOHYDRATES FOR HYPOGLYCEMIA PO PRN (08:32)
[2024-01-11] MEDS ORDERED: GLUCOSE 40% GEL 15 GM TUBE PO PRN (08:32)
[2024-01-11] MEDS ORDERED: DEXTROSE 50% 50 ML SYRINGE IV PRN (08:32)
[2024-01-11] MEDS: CALCIUM ACETATE 667 MG CAP/TAB PO SCH (08:36)
[2024-01-11] MEDS: MIDODRINE HCL 10 MG TAB PO PRN (08:36)
[2024-01-11] MEDS: INSULIN ASPART PER UNIT CHARGE SC SCH (08:53)
[2024-01-11] MEDS: INSULIN ASPART PER UNIT CHARGE ONE (09:03)
[2024-01-11] MEDS ORDERED: SODIUM CHLORIDE 0.9% 100 ML IV PRN (09:32)
--- NOTE | 2024-01-11 11:01 | Gastrointestinal Consultation ---
Date of Consultation January 11, 2024 Assessment & Plan (1) GI bleed: Several episodes of melena without hemodynamic compromise. No significant change in H&H. Eliquis was stopped. Continue Protonix. Monitor H&H. Due to patient's respiratory and neurological status will defer endoscopic evaluation. History of Present Illness Reason for Consultation: Melena, anemia. Attending Physician: Leonila Hatch MD History of Present Illness Patient is 83-year-old male with PMH CAD s/p stent, ESRD on HD, chronic hypoxemic respiratory failure on 4 L oxygen, COPD, atrial flutter/atrial fibrillation, history DVT, anticoagulated on Eliquis, MOLLY, CVA presented to ER with c/o weakness and fall . Gastroenterology consultation was requested because of several episodes of melena. According to nurses patient passed several dark stools yesterday. No vomiting was reported. No abdominal pain. Patient's baseline hemoglobin is around 9. No significant decrease in H&H. Hemodynamically the patient's blood pressure is around 100 systolic however he has had problems with hypotension on dialysis. The patient is somnolent and not responding. He is unable to provide history. No recent endoscopic procedures. Allergies Allergy/AdvReac Type Severity Reaction Status Date / Time lorazepam AdvReac Intermediate Hallucinati Verified 11/10/23 19:09 ng/Confusio n Home Medications Medication Instructions Recorded Confirmed Type venlafaxine 37.5 mg 37.5 mg PO DAILY 02/01/22 01/10/24 History capsule,extended release 24 hr (Effexor XR) nitroglycerin 0.4 mg sublingual 0.4 mg sublingual UD PRN Chest Pain 05/14/23 01/10/24 History tablet (Nitrostat) rosuvastatin 10 mg tablet 10 mg PO QAM 05/14/23 01/10/24 History buspirone 5 mg tablet 5 mg PO AMHS 08/26/23 01/10/24 History glycopyrrolate 9 mcg-formoterol 1 puff inhalation BID 08/26/23 01/10/24 History 4.8 mcg HFA aerosol inhaler (Bevespi Aerosphere) vitamin B complex-vitamin C-folic 1 tab PO 3XWK 08/26/23 01/10/24 History acid 0.8 mg tablet (Izzy-Vianney) apixaban 2.5 mg tablet (Eliquis) 2.5 mg PO BID #60 tabs 08/29/23 01/10/24 Rx ipratropium 0.5 mg-albuterol 3 mg 3 ml NEB Q4 PRN Wheezing 10/31/23 01/10/24 History (2.5 mg base)/3 mL nebulization soln calcium acetate(phosphat bind) 667 1,334 mg PO TIDWMEAL 11/10/23 01/10/24 History mg capsule lorazepam 0.5 mg tablet 0.5 mg PO DIRECTED 11/10/23 01/10/24 History albuterol sulfate 2.5 mg/3 mL 2.5 mg continuous nebulization Q6 12/25/23 01/10/24 History (0.083 %) solution for nebulization PRN Wheezing albuterol sulfate 90 mcg/actuation 2 puff inhalation Q4 PRN Wheezing 12/25/23 01/10/24 History aerosol inhaler guaifenesin 600 mg tablet, 600 mg PO Q12 #60 tabs 12/30/23 01/10/24 Rx extended release 12 hr (Mucinex) midodrine 2.5 mg tablet 2.5 mg PO TID@0800,1200,1700 30 12/30/23 01/10/24 Rx days #90 tabs midodrine 10 mg tablet 10 mg PO 3XWK PRN before dialysis 01/01/24 01/10/24 Rx #30 tabs diltiazem HCl 30 mg tablet 30 mg PO UD 01/10/24 01/10/24 History metoprolol tartrate 50 mg tablet 50 mg PO UD 01/10/24 01/10/24 History Patient History Medical History Multifocal pneumonia Left renal mass Pneumonia due to COVID-19 virus Urinary frequency Hx of blood clots "IN MY LEGS AND 1 IN MY LUNGS A LONG TIME AGO">WAS ON BLOOD THINNERS, CAUSED BY PHLEBITIS History of COVID-19 02/02/22>STILL HAS FATIGUE Adjustment disorder with mixed disturbance of emotions and conduct History of basal cell carcinoma Carotid stenosis, right 50-69% stenosis to right ICA; <50% stenosis to left ICA per 06/22/21 carotid duplex History of stroke 2017 OR 2018 >NO RESIDUAL History of OK (myocardial infarction) 1998 MOLLY and COPD overlap syndrome WEARS 4L O2 AT HS Prediabetes PT DENIES Renal osteodystrophy Papillary renal cell carcinoma WITH MALIGNANCY>NO TREATMENT YET (CURRENT DX) Surgical History History of anesthesia reaction SLOW TO WAKE UP History of arthroscopy LEFT KNEE History of colonoscopy History of tooth extraction History of tonsillectomy History of cataract surgery RT/LEFT History of cholecystectomy History of appendectomy History of heart artery stent 1998>? # STENTS PLACED IN [facility] (FOLLWED BY DR. JACK SOUSA [facility]IOLOG[facility]) Family History Other Colorectal cancer No family history of adverse response to anesthesia Social History Smoking Status: Never smoker Second Hand Exposure: No; Do You Dip or Chew Tobacco: No; Hx Alcohol Use: No Hx Substance Use: No Preferred Language: Sinhala Communication Ability: Effective Communication Tools: Other Admissions Manager Rn Required: No Beliefs That Will Affect Care: None Current Living Situation: Spouse Other Information That Helps Us Care for You: No Feels Safe at Home: Yes Safety Concerns: Feels Safe At This Time Assistive Devices: Cane, Oxygen - Continuous and Walker Review of Systems Review of Systems: Unobtainable due to reduced consciousness Physical Exam Physical Exam: Constitutional: The patient appears chronically ill. Respiratory: Wheezing bilaterally. Cardiovascular: Irregular. Gastrointestinal (Abdomen): normal bowel sounds, soft, nontender, no hepatosplenomegaly. Neurological: Unresponsive to voice, opens eyes on command. Moves all extremities. Results & Data Vital Signs (Past 12 Hours) Vital Signs Temp Pulse Pulse Resp BP Pulse Ox O2 Del Method 01/11/24 10:53 36.5 C 91 H 24 100/74 97 01/11/24 10:30 36.5 C 96 H 24 114/64 96 01/11/24 09:30 90 121/80 01/11/24 09:01 36.5 C 01/11/24 08:36 95/51 L 01/11/24 08:00 108 H 24 95 01/11/24 08:00 Nasal Cannula 01/11/24 08:00 86 01/11/24 07:12 36.4 C L 01/11/24 07:02 141/83 H 01/11/24 06:57 102 H 30 H 94 Nasal Cannula 01/11/24 06:09 93 H 24 144/75 H 97 01/11/24 05:57 98 H 26 H 95 01/11/24 05:09 93 H 25 H 100 01/11/24 04:36 87 31 H 01/11/24 04:24 92 H 20 99 Nasal Cannula 01/11/24 04:07 36.6 C 01/11/24 04:05 113/59 L 01/11/24 03:57 85 37 H 93 01/11/24 03:00 88 34 H 121/93 95 01/11/24 02:30 106/58 L 01/11/24 02:24 117 H 27 H 01/11/24 02:03 94 H 28 H 01/11/24 01:00 97 H 18 93 01/11/24 00:31 36.3 C L 01/11/24 00:29 116/56 L 01/11/24 00:21 86 23 97 01/11/24 00:03 93 H 28 H 98 01/10/24 23:12 90 23 87 L O2 Flow Rate 01/11/24 10:53 4 01/11/24 10:30 4 01/11/24 09:30 01/11/24 09:01 01/11/24 08:36 01/11/24 08:00 01/11/24 08:00 4 01/11/24 08:00 01/11/24 07:12 01/11/24 07:02 01/11/24 06:57 4 01/11/24 06:09 01/11/24 05:57 01/11/24 05:09 01/11/24 04:36 01/11/24 04:24 4 01/11/24 04:07 01/11/24 04:05 01/11/24 03:57 01/11/24 03:00 01/11/24 02:30 01/11/24 02:24 01/11/24 02:03 01/11/24 01:00 01/11/24 00:31 01/11/24 00:29 01/11/24 00:21 01/11/24 00:03 01/10/24 23:12 PG Care Time/CCT Total # of Minutes Spent Total Time Spent with Patient: Total time spent is greater than 50% in coordination of care (as documented) at patient's floor/unit and/or counseling patient: Coding Level of Care Code 69865 IN/OBS CONSULT LVL 3,45M Diagnoses Gastrointestinal hemorrhage with melena K92.1 GI bleed type/associated pathology: melena (1) GI bleed GI bleed type/associated pathology: melena Qualified Code(s): K92.1 - Melena
--- NOTE | 2024-01-11 11:20 | Critical Care Progress Note ---
Date of Service January 11, 2024 Assessment & Plan (1) Volume overload: (2) GIB (gastrointestinal bleeding): (3) End-stage renal disease (ESRD): (4) Hyperkalemia: (5) Uremia: (6) Acute on chronic respiratory failure with hypoxemia: (7) Acute blood loss anemia: Plan 83-year-old male with a history of restrictive lung disease, chronic aspiration, end-stage renal disease on hemodialysis every Saturday, and Saturday. Neurologic: Patient with acute delirium secondary to uremia. CT head without acute pathology. Pulmonary: Patient with acute hypoxemia secondary to volume overload. This should hopefully improve with volume removal from dialysis. Difficult to rule out aspiration pneumonitis as a factor as well. Agree with empiric Zosyn for the time being. Discussed with patient and family and the patient is currently a DNI. Continue to wean oxygen as able. Linda nebs as needed. Chest x-ray with low lung volumes and cardiomegaly. Cardiovascular: Patient with chronic hypotension on hemodialysis days. Continue midodrine and use Levophed as needed to maintain maps greater than 65 mmHg. Patient with a known history of CAD and atrial flutter followed by outpatient cardiology at [facility]. Hold beta-blockade for the time being. Will also hold Eliquis given concerns of worsening anemia and possible GI bleed. Troponin minimally elevated likely due to demand ischemia in the setting of acute hypoxemia secondary to volume overload. Gastrointestinal: Patient with signs concerning for GI bleed. Continue Protonix drip. Hemoglobin has trended down. Patient will be transfused 1 unit of packed RBCs. Follow-up for active signs of bleeding and trend CBC. GI input noted. Too unstable for he endoscopy evaluation. Renal: Nephrology on board. Patient's status post hemodialysis treatment 01/10/2024. Will undergo additional dialysis today due to hypervolemia. Hyperkalemia has improved. Infectious disease: Blood cultures pending. Continue empiric Zosyn for 48 hours and follow fever curve and white count. Fortunately, white count is decreasing and fever curve has been favorable. Possible aspiration pneumonitis/pneumonia. Hematologic: Patient with a history of anemia of chronic disease. Holding Eliquis in the setting of acute illness and possible GI bleed. Patient also with a history of DVT. Repeat H&H status post blood transfusion. Endocrine: Maintain euglycemia with hyperglycemia protocol. VTE prophylaxis: SCDs. Holding chemoprophylaxis due to drop in hemoglobin. CODE STATUS: DNR/DNI Family at bedside: Patient's updated over the phone. Disposition: ICU with possible downgrade later today after hemodialysis off vasopressors. I have personally spent 38 minutes of critical care time in the direct management of this patient. This is a life/limb threatening event. This includes time spent evaluating patient, direct bedside care, chart review, placing orders, interpretation of diagnostic studies, discussion with consultants, patient, and family members, as well as other required patient management activities. This time is exclusive of all separately billable procedures, and teaching time and separate from and in addition to any other critical care service time. Thank you for allowing us to participate in the care of this patient. Admission and Anticipated Discharge Date Admission Date: January 10, 2024 Subjective Patient seen and examined. Alert and oriented to self and time. Per nursing he has been confused at times. He is currently on Levophed as hemodialysis has been restarted today. Discussed with commissioner of relocation services. Will give a unit of packed RBCs given his low hemoglobin. Consent obtained from the patient's over the phone. Review of Systems Review of Systems: 10 point ROS difficult to obtain given t he patient's altered mental status. He denies any overt chest pain or abdominal pain. He does endorse some mild shortness of breath. Physical Exam Physical Exam: Constitutional: Patient appears to be of their stated age. Patient appearing moderately ill. Eyes: Pupils are equal round and reactive to light. Conjunctivae are normal. Anicteric sclera. Ears nose, mouth and throat: Mallampati class 2. Normal posterior oropharynx. Uvula is midline. Neck: Trachea is midline. Visual inspection is normal. Respiratory: Tachypneic and rhonchorous sounding. Cardiovascular: Regular rate and rhythm. No murmurs. No edema. Gastrointestinal: Normal bowel sounds, soft, nontender and nondistended. No hepatosplenomegaly noted. Musculoskeletal: No cyanosis. Patient is able to move all extremities. Strength is 5 out of 5 in the upper and lower extremities. Skin: No rashes, warm dry and intact. Neurologic: Patient with frequent myoclonic jerks. Delirious. Psychiatric: Alert and oriented x2. Results & Data Results & Data Vital Signs (Past 12 Hours) Vital Signs Temp Pulse Pulse Resp BP Pulse Ox O2 Del Method 01/11/24 11:10 36.5 C 104 H 24 145/62 H 98 01/11/24 11:08 36.5 C 108 H 24 154/55 H 97 01/11/24 11:00 99 H 155/50 H 01/11/24 10:53 36.5 C 91 H 24 100/74 97 01/11/24 10:30 96 H 114/64 01/11/24 10:30 36.5 C 96 H 24 114/64 96 01/11/24 10:00 102 H 110/73 01/11/24 09:30 90 121/80 01/11/24 09:01 36.5 C 01/11/24 08:36 95/51 L 01/11/24 08:00 108 H 24 95 01/11/24 08:00 Nasal Cannula 01/11/24 08:00 86 01/11/24 07:12 36.4 C L 01/11/24 07:02 141/83 H 01/11/24 06:57 102 H 30 H 94 Nasal Cannula 01/11/24 06:09 93 H 24 144/75 H 97 01/11/24 05:57 98 H 26 H 95 01/11/24 05:09 93 H 25 H 100 01/11/24 04:36 87 31 H 01/11/24 04:24 92 H 20 99 Nasal Cannula 01/11/24 04:07 36.6 C 01/11/24 04:05 113/59 L 01/11/24 03:57 85 37 H 93 01/11/24 03:00 88 34 H 121/93 95 01/11/24 02:30 106/58 L 01/11/24 02:24 117 H 27 H 01/11/24 02:03 94 H 28 H 01/11/24 01:00 97 H 18 93 01/11/24 00:31 36.3 C L 01/11/24 00:29 116/56 L 01/11/24 00:21 86 23 97 01/11/24 00:03 93 H 28 H 98 O2 Flow Rate 01/11/24 11:10 4 01/11/24 11:08 4 01/11/24 11:00 01/11/24 10:53 4 01/11/24 10:30 01/11/24 10:30 4 01/11/24 10:00 01/11/24 09:30 01/11/24 09:01 01/11/24 08:36 01/11/24 08:00 01/11/24 08:00 4 01/11/24 08:00 01/11/24 07:12 01/11/24 07:02 01/11/24 06:57 4 01/11/24 06:09 01/11/24 05:57 01/11/24 05:09 01/11/24 04:36 01/11/24 04:24 4 01/11/24 04:07 01/11/24 04:05 01/11/24 03:57 01/11/24 03:00 01/11/24 02:30 01/11/24 02:24 01/11/24 02:03 01/11/24 01:00 01/11/24 00:31 01/11/24 00:29 01/11/24 00:21 01/11/24 00:03 Coding Level of Care Code 60634 CRITICAL CARE 1ST 30-74M Diagnoses Volume overload E87.79 Hypervolemia type: other GIB (gastrointestinal bleeding) K92.2 GI bleed type/associated pathology: unspecified gastrointestinal hemorrhage type End-stage renal disease (ESRD) N18.6 Hyperkalemia E87.5 Uremia N19 Acute on chronic respiratory failure with hypoxemia J96.21 Acute blood loss anemia D62 (1) Volume overload Hypervolemia type: other Qualified Code(s): E87.79 - Other fluid overload (2) GIB (gastrointestinal bleeding) GI bleed type/associated pathology: unspecified gastrointestinal hemorrhage type Qualified Code(s): K92.2 - Gastrointestinal hemorrhage, unspecified
[2024-01-11] MEDS ORDERED: ICU Protocol for HYPERglycemia SCH (11:30)
--- NOTE | 2024-01-11 12:09 | Nephrology Progress Note ---
Date of Service January 11, 2024 Assessment & Plan (1) Acute respiratory acidosis: Plan: a/W chronic respiratory failure >> 4L 02NC at baseline; pC02 on VBG 66 underwent urgent dialysis yesterday w/ 4.3 lit UF, Plan for another 4.3 lit today w/ 1 u PRBC . respiratory status has improved - Next HD on Saturday unless clinical situation changes (2) End-stage renal disease on hemodialysis: Plan: tends to have hypotension on HD >> give midodrine 10 mg about 30 min prior to treatement; else continue home midodrine comes in markedly volume overloaded >> 10.6 lb over target weight on admission - HD as above for Volume management. >>>high risk for complications with rectal bleeding, hx of atrial flutter and hypotension, acute on chronic respiratory failure (3) Atrial flutter with rapid ventricular response: Plan: -need to keep hgb > 8 >> transfuse as needed, 1 unir PRBC Today >>continue rate control medications (4) GI bleed: Plan: bright red blood per rectum > per primary service (5) Goals of care, counseling/discussion: Plan: pt is DNR/DNI > family aware/realistic; they are trying to get through the holidays if able >> they are open to pressors and to pRBC as needed; would not want intubation or defibrillation, no "dire intervention" per daughter Admission and Anticipated Discharge Date Admission Date: January 10, 2024 Subjective Patient seen and examined on dialysis, Intermittently confused, He is currently on Levophed as hemodialysis has been restarted today. For 1 unit of packed RBCs given his low hemoglobin. Review of Systems 2 Review of Systems: All systems reviewed & are unremarkable except as noted in HPI & below Results & Data Vital Signs (Past 12 Hours) Vital Signs Temp Pulse Pulse Resp BP Pulse Ox O2 Del Method 01/11/24 11:30 99 H 134/71 01/11/24 11:10 36.5 C 104 H 24 145/62 H 98 01/11/24 11:08 36.5 C 108 H 24 154/55 H 97 01/11/24 11:00 99 H 155/50 H 01/11/24 10:53 36.5 C 91 H 24 100/74 97 01/11/24 10:30 96 H 114/64 01/11/24 10:30 36.5 C 96 H 24 114/64 96 01/11/24 10:00 102 H 110/73 01/11/24 09:30 90 121/80 01/11/24 09:01 36.5 C 01/11/24 08:36 95/51 L 01/11/24 08:00 108 H 24 95 01/11/24 08:00 Nasal Cannula 01/11/24 08:00 86 01/11/24 07:12 36.4 C L 01/11/24 07:02 141/83 H 01/11/24 06:57 102 H 30 H 94 Nasal Cannula 01/11/24 06:09 93 H 24 144/75 H 97 01/11/24 05:57 98 H 26 H 95 01/11/24 05:09 93 H 25 H 100 01/11/24 04:36 87 31 H 01/11/24 04:24 92 H 20 99 Nasal Cannula 01/11/24 04:07 36.6 C 01/11/24 04:05 113/59 L 01/11/24 03:57 85 37 H 93 01/11/24 03:00 88 34 H 121/93 95 01/11/24 02:30 106/58 L 01/11/24 02:24 117 H 27 H 01/11/24 02:03 94 H 28 H 01/11/24 01:00 97 H 18 93 01/11/24 00:31 36.3 C L 01/11/24 00:29 116/56 L 01/11/24 00:21 86 23 97 O2 Flow Rate 01/11/24 11:30 01/11/24 11:10 4 01/11/24 11:08 4 01/11/24 11:00 01/11/24 10:53 4 01/11/24 10:30 01/11/24 10:30 4 01/11/24 10:00 01/11/24 09:30 01/11/24 09:01 01/11/24 08:36 01/11/24 08:00 01/11/24 08:00 4 01/11/24 08:00 01/11/24 07:12 01/11/24 07:02 01/11/24 06:57 4 01/11/24 06:09 01/11/24 05:57 01/11/24 05:09 01/11/24 04:36 01/11/24 04:24 4 01/11/24 04:07 01/11/24 04:05 01/11/24 03:57 01/11/24 03:00 01/11/24 02:30 01/11/24 02:24 01/11/24 02:03 01/11/24 01:00 01/11/24 00:31 01/11/24 00:29 01/11/24 00:21 Laboratory Results 01/11/24 04:40 01/11/24 05:41 (4) GI bleed GI bleed type/associated pathology: melena Qualified Code(s): K92.1 - Melena
--- NOTE | 2024-01-11 12:57 | Hospitalist Progress Note ---
Date of Service January 11, 2024 Assessment & Plan (1) Acute and chronic respiratory failure: (2) Volume overload: (3) COPD (chronic obstructive pulmonary disease): (4) MOLLY (obstructive sleep apnea): Plan: 83-year-old male with PMH CAD s/p stent, ESRD on HD, chronic hypoxemic respiratory failure on 4 L oxygen, COPD, HLD, atrial flutter/atrial fibrillation, history DVT, anticoagulated on Eliquis, MOLLY, CVA, prediabetes, presented to ER with c/o weakness and fall today. Recent admission for COPD exacerbation treated with doxycycline, steroids. In ER patient afebrile, P: 94, R: 24, BP 104/64, 91% on 4 L nasal cannula. Was placed on BiPAP WBC: 19. Procalcitonin: 1.86, Lactate: 2.0. Negative Bio[employer] respiratory panel. VBG pH: 7.2, pCO2: 66. A. Initial troponin: 33 which is approximately patient's baseline CXR: Cardiomegaly with mild underinflation of the lungs. CT abd/pelvis: Partial visualization of atelectasis. Superimposed aspiration/pneumonia cannot be excluded. In ER given neb treatment, Solu-Medrol 125 mg IV, Zosyn Cannot rule out aspiration pneumonia/pneumonitis Continue IV zosyn Blood culture in lab Director Of Exhibit [employer] nancy noted (5) End-stage renal disease on hemodialysis: (6) Hyperkalemia: Plan: ESRD on HD on , sat schedule Per daughter, has been having some issues at HD recently that had sometimes affected getting full treatment On admission, K: 6.4 In ER given calcium gluconate, insulin R, dextrose and albuterol neb treatment Patient got HD yesterday with 4.5L fluid removed per HD RN and getting 4L removed today Currently on levophed to support BP while being dialyzed (7) GI bleed: Plan: Reported constipation recently which resolved with miralax Reported heme positive BM in ER CT Abd/pelvis: No acute abnormality in particular no evidence of acute fracture or intraperitoneal injury. Hgb: 8. Was 7.8 on 01/03/2024. Appears patient's baseline around 8-9 Dark stools per RN overnight Hb trended down Got 1 PRBC today GI eval noted. Endoscopy deferred for now until more stable Continue PPI drip (8) Metabolic encephalopathy: Plan: CT head: no acute intracranial findings Continue to hold home lorazepam Continue to monitor (9) Atrial fibrillation/flutter: Plan: Anticoagulated on Eliquis Recent history atrial flutter/fib RVR with recent medication adjustments of dialysis days with diltiazem 30 mg in the morning and 10 mg midodrine before dialysis session with 50 metoprolol tartrate in the evening. Nondialysis days is to take metoprolol tartrate 50mg BID and midodrine 2.5mg TID. Diltiazem and metoprolol on hold for now (10) Coronary artery disease: Plan: S/P Stent Troponin 33-> 28 (11) History of DVT (deep vein thrombosis): Plan: On chronic Eliquis Holding Eliquis as above (12) Dyslipidemia: Plan: Was on atorvastatin at home DVT Prophylaxis SCDs for now DNR/DNI I spent a total of 60 minutes coordinating, documenting and providing care for this patient excluding time spent in performance of separately billed services Admission and Anticipated Discharge Date Admission Date: January 10, 2024 Subjective Patient seen and examined Currently undergoing HD in ICU Currently on levophed Daughter who is a [employer] at bedside He was sleeping but arousable and able to answer questions Patient is oriented to person, place, month and year Reports left forearm pain around IV site Reports cough. No SOB at rest Denied chest pain, nausea, vomiting, abd pain RN reported patient had multiple dark stools yesterday Physical Exam Constitutional: + ill appearing and + well hydrated; no acute distress Eyes: PERRL, conjunctivae normal, anicteric sclerae ENMT: external ear and nose normal, oropharynx normal Respiratory: On nasal cannula, diminished breath sounds Cardiovascular: Rate/Rhythm: + irregularly irregular Gastrointestinal (Abdomen): normal bowel sounds, soft, nontender, no hepatosplenomegaly Musculoskeletal: No pedal edema Neurologic: Was sleepy but arousable. Able to answer simple questions Oriented to person, place, month and year Results & Data Results & Data Vital Signs (Past 12 Hours) Vital Signs Temp Pulse Pulse Resp BP Pulse Ox O2 Del Method 01/11/24 12:30 102 H 138/94 01/11/24 12:00 89 126/54 L 01/11/24 11:30 99 H 134/71 01/11/24 11:10 36.5 C 104 H 24 145/62 H 98 01/11/24 11:08 36.5 C 108 H 24 154/55 H 97 01/11/24 11:00 99 H 155/50 H 01/11/24 10:53 36.5 C 91 H 24 100/74 97 01/11/24 10:30 96 H 114/64 01/11/24 10:30 36.5 C 96 H 24 114/64 96 01/11/24 10:00 102 H 110/73 01/11/24 09:30 90 121/80 01/11/24 09:01 36.5 C 01/11/24 08:36 95/51 L 01/11/24 08:00 108 H 24 95 01/11/24 08:00 Nasal Cannula 01/11/24 08:00 86 01/11/24 07:12 36.4 C L 01/11/24 07:02 141/83 H 01/11/24 06:57 102 H 30 H 94 Nasal Cannula 01/11/24 06:09 93 H 24 144/75 H 97 01/11/24 05:57 98 H 26 H 95 01/11/24 05:09 93 H 25 H 100 01/11/24 04:36 87 31 H 01/11/24 04:24 92 H 20 99 Nasal Cannula 01/11/24 04:07 36.6 C 01/11/24 04:05 113/59 L 01/11/24 03:57 85 37 H 93 01/11/24 03:00 88 34 H 121/93 95 01/11/24 02:30 106/58 L 01/11/24 02:24 117 H 27 H 01/11/24 02:03 94 H 28 H 01/11/24 01:00 97 H 18 93 O2 Flow Rate 01/11/24 12:30 01/11/24 12:00 01/11/24 11:30 01/11/24 11:10 4 01/11/24 11:08 4 01/11/24 11:00 01/11/24 10:53 4 01/11/24 10:30 01/11/24 10:30 4 01/11/24 10:00 01/11/24 09:30 01/11/24 09:01 01/11/24 08:36 01/11/24 08:00 01/11/24 08:00 4 01/11/24 08:00 01/11/24 07:12 01/11/24 07:02 01/11/24 06:57 4 01/11/24 06:09 01/11/24 05:57 01/11/24 05:09 01/11/24 04:36 01/11/24 04:24 4 01/11/24 04:07 01/11/24 04:05 01/11/24 03:57 01/11/24 03:00 01/11/24 02:30 01/11/24 02:24 01/11/24 02:03 01/11/24 01:00 Laboratory Results Abnormal lab results 01/10/24 01/10/24 01/10/24 Range/Units 09:58 15:51 15:52 WBC 17.26 H (4.8-10.8) K/ul RBC 2.80 L (4.70-6.10) M/uL Hgb 8.0 L (14.0-18.0) g/dl Hct 26.3 L (42.0-52.0) % MCHC 30.4 L (32.0-36.0) g/dL RDW Std Deviation 57.9 H (36.4-46.3) fL RDW Coeff of John 17.2 H (11.5-14.5) % Neut # (Auto) 16.68 H (1.40-6.50) K/uL Lymph # (Auto) 0.16 L (1.20-3.40) K/uL [place] # (Auto) (0.11-0.59) K/uL Immature Gran # (Auto) (0.01-0.20) K/uL Sodium (136-145) mmol/L Chloride (98-107) mmol/L Anion Gap (3-11) BUN (6-23) mg/dl Creatinine (0.6-1.4) mg/dl BUN/Creatinine Ratio (10-20) Glucose (70-99(Fasting)) mg/dl POC Glucose 180 H (70-99) mg/dl Calcium (8.6-10.3) mg/dl Phosphorus (2.5-4.9) mg/dl Crossmatch See Detail 1001/10/24 01/10/24 Range/Units 19:10 20:35 22:56 WBC 26.64 H D (4.8-10.8) K/ul RBC 3.23 L (4.70-6.10) M/uL Hgb 9.2 L (14.0-18.0) g/dl Hct 29.4 L (42.0-52.0) % MCHC 31.3 L (32.0-36.0) g/dL RDW Std Deviation 57.1 H (36.4-46.3) fL RDW Coeff of John 17.2 H (11.5-14.5) % Neut # (Auto) 25.55 H (1.40-6.50) K/uL Lymph # (Auto) 0.13 L (1.20-3.40) K/uL [place] # (Auto) 0.62 H (0.11-0.59) K/uL Immature Gran # (Auto) 0.22 H (0.01-0.20) K/uL Sodium 133 L (136-145) mmol/L Chloride 94 L (98-107) mmol/L Anion Gap 15 H (3-11) BUN 43 H D (6-23) mg/dl Creatinine 5.09 H* D (0.6-1.4) mg/dl BUN/Creatinine Ratio 8.4 L (10-20) Glucose 235 H (70-99(Fasting)) mg/dl POC Glucose 145 H (70-99) mg/dl Calcium 8.3 L (8.6-10.3) mg/dl Phosphorus (2.5-4.9) mg/dl Crossmatch 01/11/24 01/11/24 01/11/24 Range/Units 04:40 07:02 12:14 WBC 14.80 H D 23.10 H D (4.8-10.8) K/ul RBC 2.55 L 3.22 L (4.70-6.10) M/uL Hgb 7.4 L 9.4 L (14.0-18.0) g/dl Hct 23.8 L 29.9 L (42.0-52.0) % MCHC 31.1 L 31.4 L (32.0-36.0) g/dL RDW Std Deviation 58.4 H 55.1 H (36.4-46.3) fL RDW Coeff of John 17.5 H 16.7 H (11.5-14.5) % Neut # (Auto) 13.73 H 21.10 H (1.40-6.50) K/uL Lymph # (Auto) 0.09 L 0.15 L (1.20-3.40) K/uL [place] # (Auto) 0.88 H 1.62 H (0.11-0.59) K/uL Immature Gran # (Auto) 0.21 H (0.01-0.20) K/uL Sodium 135 L (136-145) mmol/L Chloride 94 L (98-107) mmol/L Anion Gap 14 H (3-11) BUN 51 H (6-23) mg/dl Creatinine 5.62 H* D (0.6-1.4) mg/dl BUN/Creatinine Ratio 9.1 L (10-20) Glucose 232 H (70-99(Fasting)) mg/dl POC Glucose 212 H (70-99) mg/dl Calcium 8.2 L (8.6-10.3) mg/dl Phosphorus 6.4 H (2.5-4.9) mg/dl Crossmatch 01/11/24 Range/Units 13:18 WBC (4.8-10.8) K/ul RBC (4.70-6.10) M/uL Hgb (14.0-18.0) g/dl Hct (42.0-52.0) % MCHC (32.0-36.0) g/dL RDW Std Deviation (36.4-46.3) fL RDW Coeff of John (11.5-14.5) % Neut # (Auto) (1.40-6.50) K/uL Lymph # (Auto) (1.20-3.40) K/uL [place] # (Auto) (0.11-0.59) K/uL Immature Gran # (Auto) (0.01-0.20) K/uL Sodium (136-145) mmol/L Chloride (98-107) mmol/L Anion Gap (3-11) BUN (6-23) mg/dl Creatinine (0.6-1.4) mg/dl BUN/Creatinine Ratio (10-20) Glucose (70-99(Fasting)) mg/dl POC Glucose 137 H (70-99) mg/dl Calcium (8.6-10.3) mg/dl Phosphorus (2.5-4.9) mg/dl Crossmatch (1) Acute and chronic respiratory failure Respiratory failure complication: hypoxia Qualified Code(s): J96.21 - Acute and chronic respiratory failure with hypoxia (7) GI bleed GI bleed type/associated pathology: melena Qualified Code(s): K92.1 - Melena
[2024-01-11 13:05] LABS: Hematocrit (blood only) 29.9 % (42.0-52.0); Hemoglobin 9.4 g/dl (14.0-18.0); Mean Corpuscular Hemoglobin 29.2 pg (25.0-34.0); Mean Corpuscular Hgb Conc 31.4 g/dL (32.0-36.0); Mean Corpuscular Volume 92.9 fL (80.0-100.0); Mean Platelet Volume 9.8 fL (9.4-12.4); Platelet Count 163 K/uL (130-400); RDW Coefficient of Variation 16.7 % (11.5-14.5); RDW Standard Deviation 55.1 fL (36.4-46.3); Red Blood Count 3.22 M/uL (4.70-6.10)
[2024-01-11 13:08] LABS: Basophils # (auto) 0.02 K/uL (0.00-0.20); Basophils % (auto) 0.1 %; Hypersegmented Neutrophils 1+; Immature Granulocytes # (auto) 0.21 K/uL (0.01-0.20); Immature Granulocytes % (auto) 0.9 %; Lymphocytes # (auto) 0.15 K/uL (1.20-3.40); Lymphocytes % (auto) 0.6 %; Monocytes # (auto) 1.62 K/uL (0.11-0.59); Neutrophils % (auto) 91.4 %; Polychromasia 1+
[2024-01-12 05:05] LABS: Hematocrit (blood only) 26.5 % (42.0-52.0); Hemoglobin 8.1 g/dl (14.0-18.0); Mean Corpuscular Hgb Conc 30.6 g/dL (32.0-36.0); Mean Platelet Volume 10.1 fL (9.4-12.4); Platelet Count 107 K/uL (130-400); RDW Coefficient of Variation 17.4 % (11.5-14.5); RDW Standard Deviation 59.1 fL (36.4-46.3); Red Blood Count 2.79 M/uL (4.70-6.10); White Blood Count 9.87 K/ul (4.8-10.8)
[2024-01-12 05:13] LABS: Calcium 8.1 mg/dl (8.6-10.3); Creatinine Clr Calc Pharmacy 13.3 ml/min; Potassium 4.1 mmol/L (3.5-5.1)
--- NOTE | 2024-01-12 10:34 | Hospitalist Progress Note ---
Date of Service January 12, 2024 Assessment & Plan (1) Acute and chronic respiratory failure: (2) Volume overload: (3) COPD (chronic obstructive pulmonary disease): (4) MOLLY (obstructive sleep apnea): Plan: 83-year-old male with PMH CAD s/p stent, ESRD on HD, chronic hypoxemic respiratory failure on 4 L oxygen, COPD, HLD, atrial flutter/atrial fibrillation, history DVT, anticoagulated on Eliquis, MOLLY, CVA, prediabetes, presented to ER with c/o weakness and fall today. Recent admission for COPD exacerbation treated with doxycycline, steroids. In ER patient afebrile, P: 94, R: 24, BP 104/64, 91% on 4 L nasal cannula. Was placed on BiPAP WBC: 19. Procalcitonin: 1.86, Lactate: 2.0. Negative [employer] respiratory panel. VBG pH: 7.2, pCO2: 66. A. Initial troponin: 33 which is approximately patient's baseline CXR: Cardiomegaly with mild underinflation of the lungs. CT abd/pelvis: Partial visualization of atelectasis. Superimposed aspiration/pneumonia cannot be excluded. In ER given neb treatment, Solu-Medrol 125 mg IV, Zosyn Discussed with ICU physician, infectious workup negative Zosyn stopped Poor prognosis Volume overload being managed via HD (5) End-stage renal disease on hemodialysis: (6) Hyperkalemia: Plan: ESRD on HD on , sat schedule Per daughter, has been having some issues at HD recently that had sometimes affected getting full treatment On admission, K: 6.4 In ER given calcium gluconate, insulin R, dextrose and albuterol neb treatment Required levophed to maintain BP while being dialyzed on 01/09 and 01/10 Off levophed now [employer] on board (7) GI bleed: Plan: Reported constipation recently which resolved with miralax Reported heme positive BM in ER CT Abd/pelvis: No acute abnormality in particular no evidence of acute fracture or intraperitoneal injury. Hgb: 8. Was 7.8 on 01/03/2024. Appears patient's baseline around 8-9 Dark stools per RN overnight Hb trended down Got 1 PRBC on 01/10, Hb is 8.1 today Continue PPI drip and monitor GI on board (8) Metabolic encephalopathy: Plan: CT head: no acute intracranial findings Continue to hold home lorazepam Continue to monitor (9) Atrial fibrillation/flutter: Plan: Anticoagulated on Eliquis Recent history atrial flutter/fib RVR with recent medication adjustments of dialysis days with diltiazem 30 mg in the morning and 10 mg midodrine before dialysis session with 50 metoprolol tartrate in the evening. Nondialysis days is to take metoprolol tartrate 50mg BID and midodrine 2.5mg TID. Diltiazem and metoprolol were initially held due to hypotension Resume metoprolol tartarate today Cardiology consult (10) Coronary artery disease: Plan: S/P Stent Troponin 33-> 28 (11) History of DVT (deep vein thrombosis): Plan: On chronic Eliquis Holding Eliquis as above (12) Dyslipidemia: Plan: Was on atorvastatin at home DVT Prophylaxis SCDs for now DNR/DNI I spent a total of 50 minutes coordinating, documenting and providing care for this patient excluding time spent in performance of separately billed services Admission and Anticipated Discharge Date Admission Date: January 10, 2024 Subjective Patient seen and examined Patient is drowsy but arousable, oriented to person, place, month and year Have no complaints ROS limited as patient quickly falls back to sleep RN reported small bloody BM earlier Physical Exam Constitutional: + ill appearing and + well hydrated; no acute distress Eyes: PERRL, conjunctivae normal, anicteric sclerae ENMT: external ear and nose normal, oropharynx normal Respiratory: On nasal cannula, dimi Cardiovascular: Rate/Rhythm: + tachycardic and + irregularly irregular Gastrointestinal (Abdomen): normal bowel sounds, soft, nontender, no hepatosplenomegaly Musculoskeletal: No pedal edema Neurologic: Drowsy but arousable Oriented to person, place, month and year Results & Data Results & Data Vital Signs (Past 12 Hours) Vital Signs Temp Pulse Resp BP Pulse Ox O2 Del Method O2 Flow Rate 01/12/24 08:04 145/71 H 01/12/24 08:03 120 H 24 100 01/12/24 07:48 36.4 C L 01/12/24 07:40 Nasal Cannula 4 01/12/24 07:12 91 H 18 91 01/12/24 07:01 136/61 01/12/24 06:57 103 H 22 92 10/27/24 06:47 97 H 01/12/24 06:15 94 H 22 94 01/12/24 05:12 126 H 21 01/12/24 04:45 120 H 19 99 01/12/24 04:00 107/59 L 01/12/24 03:51 93 H 21 96 01/12/24 03:03 104 H 17 122/59 L 97 01/12/24 02:51 104 H 31 H 99 01/12/24 02:12 100 H 25 H 80 L 01/12/24 02:00 137/77 01/12/24 01:36 111 H 25 H 99 01/12/24 01:15 101 H 26 H 100 01/12/24 00:30 36.6 C Nasal Cannula 4 01/12/24 00:00 103 H 22 100 01/11/24 23:09 122 H 25 H Laboratory Results Abnormal lab results 01/11/24 01/11/24 01/11/24 Range/Units 12:14 13:18 16:56 WBC 23.10 H D (4.8-10.8) K/ul RBC 3.22 L (4.70-6.10) M/uL Hgb 9.4 L (14.0-18.0) g/dl Hct 29.9 L (42.0-52.0) % MCHC 31.4 L (32.0-36.0) g/dL RDW Std Deviation 55.1 H (36.4-46.3) fL RDW Coeff of John 16.7 H (11.5-14.5) % Plt Count (130-400) K/uL Neut # (Auto) 21.10 H (1.40-6.50) K/uL Lymph # (Auto) 0.15 L (1.20-3.40) K/uL Meriwether # (Auto) 1.62 H (0.11-0.59) K/uL Immature Gran # (Auto) 0.21 H (0.01-0.20) K/uL Chloride (98-107) mmol/L BUN (6-23) mg/dl Creatinine (0.6-1.4) mg/dl BUN/Creatinine Ratio (10-20) Glucose (70-99(Fasting)) mg/dl POC Glucose 137 H 221 H (70-99) mg/dl Calcium (8.6-10.3) mg/dl 01/11/24 01/12/24 01/12/24 Range/Units 20:08 04:30 07:21 WBC (4.8-10.8) K/ul RBC 2.79 L (4.70-6.10) M/uL Hgb 8.1 L (14.0-18.0) g/dl Hct 26.5 L (42.0-52.0) % MCHC 30.6 L (32.0-36.0) g/dL RDW Std Deviation 59.1 H (36.4-46.3) fL RDW Coeff of John 17.4 H (11.5-14.5) % Plt Count 107 L (130-400) K/uL Neut # (Auto) (1.40-6.50) K/uL Lymph # (Auto) (1.20-3.40) K/uL Meriwether # (Auto) (0.11-0.59) K/uL Immature Gran # (Auto) (0.01-0.20) K/uL Chloride 96 L (98-107) mmol/L BUN 39 H (6-23) mg/dl Creatinine 4.33 H D (0.6-1.4) mg/dl BUN/Creatinine Ratio 9.0 L (10-20) Glucose 148 H (70-99(Fasting)) mg/dl POC Glucose 111 H 172 H (70-99) mg/dl Calcium 8.1 L (8.6-10.3) mg/dl 01/12/24 01/12/24 Range/Units 11:15 11:55 WBC (4.8-10.8) K/ul RBC 2.81 L (4.70-6.10) M/uL Hgb 8.1 L (14.0-18.0) g/dl Hct 27.0 L (42.0-52.0) % MCHC 30.0 L (32.0-36.0) g/dL RDW Std Deviation 61.0 H (36.4-46.3) fL RDW Coeff of John 17.6 H (11.5-14.5) % Plt Count 108 L (130-400) K/uL Neut # (Auto) 7.50 H (1.40-6.50) K/uL Lymph # (Auto) 0.31 L (1.20-3.40) K/uL Meriwether # (Auto) 0.80 H (0.11-0.59) K/uL Immature Gran # (Auto) (0.01-0.20) K/uL Chloride (98-107) mmol/L BUN (6-23) mg/dl Creatinine (0.6-1.4) mg/dl BUN/Creatinine Ratio (10-20) Glucose (70-99(Fasting)) mg/dl POC Glucose 125 H (70-99) mg/dl Calcium (8.6-10.3) mg/dl (1) Acute and chronic respiratory failure Respiratory failure complication: hypoxia Qualified Code(s): J96.21 - Acute and chronic respiratory failure with hypoxia (7) GI bleed GI bleed type/associated pathology: melena Qualified Code(s): K92.1 - Melena
[2024-01-12] MEDS: METOPROLOL TARTRATE 50 MG TAB PO SCH (11:53)
[2024-01-12 12:17] LABS: Eosinophils # (auto) 0.01 K/uL (0.00-0.50); Eosinophils % (auto) 0.1 %; Hemoglobin 8.1 g/dl (14.0-18.0); Immature Granulocytes # (auto) 0.03 K/uL (0.01-0.20); Immature Granulocytes % (auto) 0.3 %; Lymphocytes # (auto) 0.31 K/uL (1.20-3.40); Lymphocytes % (auto) 3.6 %; Mean Corpuscular Hemoglobin 28.8 pg (25.0-34.0); Mean Corpuscular Volume 96.1 fL (80.0-100.0); Monocytes % (auto) 9.2 %; Neutrophils % (auto) 86.8 %; Platelet Count 108 K/uL (130-400); RDW Coefficient of Variation 17.6 % (11.5-14.5); Red Blood Count 2.81 M/uL (4.70-6.10); White Blood Count 8.65 K/ul (4.8-10.8)
--- NOTE | 2024-01-12 12:35 | Gastroenterology Progress Note ---
Date of Service January 12, 2024 Assessment & Plan (1) Acute blood loss anemia: (2) GIB (gastrointestinal bleeding): Plan: Melena is clearing but still has small amount of blood tinted stool. Hemoglobin slightly decreased. Continue Protonix. Okay to change to p.o. Observe without anticoagulation. Encephalopathy has improved. Due to multiple medical issues and severe respiratory compromise would defer endoscopic evaluation unless major bleeding occurs. Admission and Anticipated Discharge Date Admission Date: January 10, 2024 Subjective The patient is much more awake. Had a bowel movement which appeared brown with small amount. Tolerates oral feeding. Denies abdominal pain. Hemoglobin 8.1, platelet count 101,000. Review of Systems Review of Systems: Constitutional: , chills, fever, fatigue. Respiratory: Denies cough, denies shortness of breath Cardiovascular: Denies chest pain and palpitations. Gastrointestinal: Denies nausea, vomiting, diarrhea, constipation, abdominal pain. Physical Exam Physical Exam: Constitutional: Appears chronically ill, vitals as above Respiratory: Bilateral wheezing Cardiovascular: no murmur, no edema Gastrointestinal (Abdomen): normal bowel sounds, soft, nontender, no hepatosplenomegaly. Neurological: Awake and alert, grossly no focal abnormalities, speech is intact. Results & Data Results & Data Vital Signs (Past 12 Hours) Vital Signs Temp Pulse Resp BP Pulse Ox O2 Del Method O2 Flow Rate 01/12/24 08:04 145/71 H 01/12/24 08:03 120 H 24 100 01/12/24 07:48 36.4 C L 01/12/24 07:40 Nasal Cannula 4 01/12/24 07:12 91 H 18 91 01/12/24 07:01 136/61 01/12/24 06:57 103 H 22 92 01/12/24 06:47 97 H 01/12/24 06:15 94 H 22 94 01/12/24 05:12 126 H 21 01/12/24 04:45 120 H 19 99 01/12/24 04:00 107/59 L 01/12/24 03:51 93 H 21 96 01/12/24 03:03 104 H 17 122/59 L 97 01/12/24 02:51 104 H 31 H 99 01/12/24 02:12 100 H 25 H 80 L 01/12/24 02:00 137/77 01/12/24 01:36 111 H 25 H 99 01/12/24 01:15 101 H 26 H 100 PG Care Time/CCT Total # of Minutes Spent Total Time Spent with Patient: Total time spent is greater than 50% in coordination of care (as documented) at patient's floor/unit and/or counseling patient: Coding Level of Care Code 46620 SUB INP/OBS CARE 2/35MIN Diagnoses Acute blood loss anemia D62 GIB (gastrointestinal bleeding) K92.2 GI bleed type/associated pathology: unspecified gastrointestinal hemorrhage type (2) GIB (gastrointestinal bleeding) GI bleed type/associated pathology: unspecified gastrointestinal hemorrhage type Qualified Code(s): K92.2 - Gastrointestinal hemorrhage, unspecified
--- NOTE | 2024-01-12 12:42 | Critical Care Progress Note ---
Date of Service January 12, 2024 Assessment & Plan (1) Volume overload: (2) GIB (gastrointestinal bleeding): (3) End-stage renal disease (ESRD): (4) Hyperkalemia: (5) Uremia: (6) Acute on chronic respiratory failure with hypoxemia: (7) Acute blood loss anemia: Plan 83-year-old male with a history of restrictive lung disease, chronic aspiration, end-stage renal disease on hemodialysis every Saturday, and Saturday. Neurologic: Patient with acute delirium secondary to uremia. CT head without acute pathology. Restart home venlafaxine starting tomorrow. Pulmonary: Hypoxemia improving with volume removal with hemodialysis. Patient with a history of chronic aspiration. Maintain aspiration precautions. Cardiovascular: Patient with chronic hypotension on hemodialysis days. Continue midodrine. Off intravenous vasopressors. Patient with a known history of CAD and atrial flutter followed by outpatient cardiology at [facility]. Restart metoprolol 50 mg twice daily and hold diltiazem. Agree with cardiology consultation ordered by the hospitalist service. Will also hold Eliquis given concerns of worsening anemia and possible GI bleed. Troponin minimally elevated likely due to demand ischemia in the setting of acute hypoxemia secondary to volume overload. Gastrointestinal: Patient with signs concerning for GI bleed. Continue Protonix drip. Status post 1 unit of packed RBCs 01/11/2024. Recheck hemoglobin this afternoon stable. Will hold off on additional blood products. GI following the patient and appreciate their input. Renal: Nephrology on board. Patient's status post hemodialysis treatment 01/10/2024 and 01/10/2027 with improvement of hypoxemia. Hyperkalemia resolved. Infectious disease: Blood cultures negative to date. Leukocytosis has resolved and there has been no significant fever. Will discontinue Zosyn. Possible aspiration pneumonitis. Follow fever curve and white count closely and if patient spikes fever, reculture and restart Zosyn. Hematologic: Patient with a history of anemia of chronic disease. Holding Eliquis in the setting of acute illness and possible GI bleed. Patient also with a history of DVT. Endocrine: Maintain euglycemia with hyperglycemia protocol. VTE prophylaxis: SCDs. Holding chemoprophylaxis due to drop in hemoglobin. CODE STATUS: DNR/DNI. Clinical status is poor. Recommend palliative care consultation. Disposition: Downgrade to PCU status. Discussed with hospitalist service. Admission and Anticipated Discharge Date Admission Date: January 10, 2024 Subjective Patient somewhat more alert and awake today. Still delirious at times. Requiring low-flow oxygen and saturating well. Denies any chest pain or shortness of breath. Review of Systems Review of Systems: All systems reviewed & are unremarkable except as noted in HPI & below Physical Exam Physical Exam: Constitutional: Patient appears to be of their stated age. Patient appearing moderately ill. Eyes: Pupils are equal round and reactive to light. Conjunctivae are normal. Anicteric sclera. Ears nose, mouth and throat: Mallampati class 2. Normal posterior oropharynx. Uvula is midline. Neck: Trachea is midline. Visual inspection is normal. Respiratory: Tachypneic and rhonchorous sounding. Cardiovascular: Regular rate and rhythm. No murmurs. No edema. Gastrointestinal: Normal bowel sounds, soft, nontender and nondistended. No hepatosplenomegaly noted. Musculoskeletal: No cyanosis. Patient is able to move all extremities. Strength is 5 out of 5 in the upper and lower extremities. Skin: No rashes, warm dry and intact. Neurologic: Delirious. No obvious focal deficits. Psychiatric: Alert and oriented x2. Results & Data Results & Data Vital Signs (Past 12 Hours) Vital Signs Temp Pulse Resp BP Pulse Ox O2 Del Method O2 Flow Rate 01/12/24 08:04 145/71 H 01/12/24 08:03 120 H 24 100 01/12/24 07:48 36.4 C L 01/12/24 07:40 Nasal Cannula 4 01/12/24 07:12 91 H 18 91 01/12/24 07:01 136/61 01/12/24 06:57 103 H 22 92 01/12/24 06:47 97 H 01/12/24 06:15 94 H 22 94 01/12/24 05:12 126 H 21 01/12/24 04:45 120 H 19 99 01/12/24 04:00 107/59 L 01/12/24 03:51 93 H 21 96 01/12/24 03:03 104 H 17 122/59 L 97 01/12/24 02:51 104 H 31 H 99 01/12/24 02:12 100 H 25 H 80 L 01/12/24 02:00 137/77 10/27/24 01:36 111 H 25 H 99 01/12/24 01:15 101 H 26 H 100 Coding Level of Care Code 41624 SUB INP/OBS CARE 2/35MIN Diagnoses Volume overload E87.79 Hypervolemia type: other GIB (gastrointestinal bleeding) K92.2 GI bleed type/associated pathology: unspecified gastrointestinal hemorrhage type End-stage renal disease (ESRD) N18.6 Hyperkalemia E87.5 Uremia N19 Acute on chronic respiratory failure with hypoxemia J96.21 Acute blood loss anemia D62 (1) Volume overload Hypervolemia type: other Qualified Code(s): E87.79 - Other fluid overload (2) GIB (gastrointestinal bleeding) GI bleed type/associated pathology: unspecified gastrointestinal hemorrhage type Qualified Code(s): K92.2 - Gastrointestinal hemorrhage, unspecified
--- NOTE | 2024-01-12 14:02 | Nephrology Progress Note ---
Date of Service January 12, 2024 Assessment & Plan (1) End-stage renal disease (ESRD): Plan: a/W chronic respiratory failure 2/ volume overload underwent urgent dialysis on 12/30 w/ 4.5 lit UF, and again on 01/10 w 4.5 lit today w/ 1 u PRBC . respiratory status has improved - his normal days are Saturday - will reassess him again in the morning for UF need, if his respiratory status continues to be stable he will be dialyzed on Saturday. tends to have hypotension on HD >> give midodrine 10 mg about 30 min prior to treatement; else continue home midodrine (2) Acute on chronic respiratory failure with hypoxemia: Plan: much improved after 2 dialysis sessions, he is back on 4 L of oxygen. (3) GIB (gastrointestinal bleeding): Plan: continues to have bright red blood per rectum, received 1 unit of PRBC yesterday, hemoglobin stable > per primary service Admission and Anticipated Discharge Date Admission Date: January 10, 2024 Subjective More settled today , ON 4l Oxygen Appears to be intermittently confused. Review of Systems 2 Review of Systems: All systems reviewed & are unremarkable except as noted in HPI & below Physical Exam 2 Physical Exam: Remains hemodynamically stable with blood pressure at 135/95 Chestdecreased breath sound bilaterally with occasional rhonchi and crackles at the bases HeartS1-S2, regular Abdomendistended, bowel sound present and benign Extremities- 1+ edema bilaterally Results & Data Vital Signs (Past 12 Hours) Vital Signs Temp Pulse Resp BP Pulse Ox O2 Del Method O2 Flow Rate 01/12/24 12:03 101 H 23 95 01/12/24 12:01 135/75 01/12/24 11:57 108 H 28 H 98 01/12/24 11:15 36.4 C L 01/12/24 11:00 95 H 29 H 98 01/12/24 11:00 137/78 01/12/24 10:00 135/66 01/12/24 10:00 107 H 24 99 01/12/24 09:06 111 H 21 100 01/12/24 08:06 103 H 28 H 99 01/12/24 08:04 145/71 H 01/12/24 08:03 120 H 24 100 01/12/24 07:48 36.4 C L 01/12/24 07:40 Nasal Cannula 4 01/12/24 07:12 91 H 18 91 01/12/24 07:01 136/61 01/12/24 06:57 103 H 22 92 01/12/24 06:47 97 H 01/12/24 06:15 94 H 22 94 01/12/24 05:12 126 H 21 01/12/24 04:45 120 H 19 99 01/12/24 04:00 107/59 L 01/12/24 03:51 93 H 21 96 01/12/24 03:03 104 H 17 122/59 L 97 01/12/24 02:51 104 H 31 H 99 01/12/24 02:12 100 H 25 H 80 L 01/12/24 02:00 137/77 Laboratory Results 01/12/24 11:55 01/12/24 04:30 (3) GIB (gastrointestinal bleeding) GI bleed type/associated pathology: unspecified gastrointestinal hemorrhage type Qualified Code(s): K92.2 - Gastrointestinal hemorrhage, unspecified
--- NOTE | 2024-01-12 16:40 | Cardiology Consultation ---
Date of Consultation January 12, 2024 Assessment & Plan (1) Atrial fibrillation/flutter: (2) Acute blood loss anemia: (3) Acute on chronic respiratory failure with hypoxemia: (4) End-stage renal disease (ESRD): Plan 83-year-old male with complex history including persistent atrial fibrillation, coronary artery disease, chronic obstructive lung disease O2 requiring with end- stage renal disease on chronic hemo-dialysis replacement. Hospitalized with acute volume overload and respiratory distress multifactorial. Acute on chronic anemia noted possible GI bleeding Patient not tolerating dialysis initially due to hypotension, elevated heart rates. Patient required low-dose pressor support for dialysis initially but now improved after 9 L volume removal Metoprolol to tartrate single dose given this morning with patient tolerating blood pressure, heart rate improved Plan: 1. Atrial fibrillation with elevated ventricular response rate: Multifactorial with worsening exacerbation on holding medications volume overload and acute illness. No overt infection discerned Will change metoprolol to tartrate to metoprolol succinate 25 mg twice per day for heart rate control and less blood pressure effect. May need dose adjustment Continue midodrine Would not restart diltiazem Baseline conduction abnormalities with bifascicular heart block present. Could consider digoxin though would likely aggravate underlying conduction issues. If hemodynamically stabilizes could consider AV junction ablation if atrial fibrillation rates become persistently elevated. Suspect rates being driven by underlying metabolic disorder, volume overload 2. Hypotension possible GI bleeding. Would correct anemia 3. Elevated white cell count on presentation: No acute infection. Past history of sacral wound would recheck History of Present Illness Reason for Consultation: Atrial fibrillation with elevated ventricular response rate Requesting Physician: [facility] Attending Physician: Leonila Hatch MD History of Present Illness Patient is a complex 83-year-old male with underlying concerns which include 1. Remote IL with stent to the left circumflex in 1998. Last cath in 2019 with patent stent and mild luminal irregularities. 2. ESRD initiated Jul, 2023. 3. Moderate LVH, 4. Hypertension 5. Dyslipidemia 6. COPD with chronic respiratory failure, hypoxia on supplemental O24 24/7 - 4 L at baseline. 7. History of CVA with right sided weakness 8. Prior DVT/PE 9. Persistent atrial fibrillation 10. Conduction system disease, bifascicular block (right bundle branch block, left anterior fascicular block) Patient referred for evaluation due to elevated atrial fibrillation rates. Complex recent history with hospitalizations twice this month. End-stage renal disease on dialysis with difficulties with hypotension during dialysis. Atrial fibrillation with elevated ventricular response rates during episodes Medications with multiple adjustment Difficulties completing dialysis prior to hospitalization with increasing volume overload Presented with worsening lethargy fatigue, volume overload as well as possible acute on chronic anemia Required pressor support for dialysis. Rate control medications held (metoprolol, diltiazem) midodrine added for pressure support Underwent dialysis on 01/09 and 01/10 Metoprolol to tartrate resumed this morning Patient seen and examined. At the time patient sitting out of bed in chair talking with family. Heart rate 85, blood pressure 135/75 No chest pains, worsening shortness of breath, dizziness or lightheadedness Abdominal girth distention and lower extremity edema markedly improved per patient and family Still requiring chronic oxygen supplementation as per prior No fevers or chills Did receive Zosyn on presentation due to elevated white cell count. Blood cultures negative Allergies Allergy/AdvReac Type Severity Reaction Status Date / Time lorazepam AdvReac Intermediate Hallucinati Verified 11/10/23 19:09 ng/Confusio n Home Medications Medication Instructions Recorded Confirmed Type venlafaxine 37.5 mg 37.5 mg PO DAILY 02/01/22 01/10/24 History capsule,extended release 24 hr (Effexor XR) nitroglycerin 0.4 mg sublingual 0.4 mg sublingual UD PRN Chest Pain 05/14/23 01/10/24 History tablet (Nitrostat) rosuvastatin 10 mg tablet 10 mg PO QAM 05/14/23 01/10/24 History buspirone 5 mg tablet 5 mg PO AMHS 08/26/23 01/10/24 History glycopyrrolate 9 mcg-formoterol 1 puff inhalation BID 08/26/23 01/10/24 History 4.8 mcg HFA aerosol inhaler (Bevespi Aerosphere) vitamin B complex-vitamin C-folic 1 tab PO 3XWK 08/26/23 01/10/24 History acid 0.8 mg tablet (Izzy-Vianney) apixaban 2.5 mg tablet (Eliquis) 2.5 mg PO BID #60 tabs 08/29/23 01/10/24 Rx ipratropium 0.5 mg-albuterol 3 mg 3 ml NEB Q4 PRN Wheezing 10/31/23 01/10/24 History (2.5 mg base)/3 mL nebulization soln calcium acetate(phosphat bind) 667 1,334 mg PO TIDWMEAL 11/10/23 01/10/24 History mg capsule lorazepam 0.5 mg tablet 0.5 mg PO DIRECTED 11/10/23 01/10/24 History albuterol sulfate 2.5 mg/3 mL 2.5 mg continuous nebulization Q6 12/25/23 01/10/24 History (0.083 %) solution for nebulization PRN Wheezing albuterol sulfate 90 mcg/actuation 2 puff inhalation Q4 PRN Wheezing 12/25/23 01/10/24 History aerosol inhaler guaifenesin 600 mg tablet, 600 mg PO Q12 #60 tabs 12/30/23 01/10/24 Rx extended release 12 hr (Mucinex) midodrine 2.5 mg tablet 2.5 mg PO TID@0800,1200,1700 30 12/30/23 01/10/24 Rx days #90 tabs midodrine 10 mg tablet 10 mg PO 3XWK PRN before dialysis 01/01/24 01/10/24 Rx #30 tabs diltiazem HCl 30 mg tablet 30 mg PO UD 01/10/24 01/10/24 History metoprolol tartrate 50 mg tablet 50 mg PO UD 01/10/24 01/10/24 History Patient History Medical History Multifocal pneumonia Left renal mass Pneumonia due to COVID-19 virus Urinary frequency Hx of blood clots "IN MY LEGS AND 1 IN MY LUNGS A LONG TIME AGO">WAS ON BLOOD THINNERS, CAUSED BY PHLEBITIS History of COVID-19 02/02/22>STILL HAS FATIGUE Adjustment disorder with mixed disturbance of emotions and conduct History of basal cell carcinoma Carotid stenosis, right 50-69% stenosis to right ICA; <50% stenosis to left ICA per 06/22/21 carotid duplex History of stroke 2017 OR 2018 >NO RESIDUAL History of IL (myocardial infarction) 1998 MOLLY and COPD overlap syndrome WEARS 4L O2 AT HS Prediabetes PT DENIES Renal osteodystrophy Papillary renal cell carcinoma WITH MALIGNANCY>NO TREATMENT YET (CURRENT DX) Surgical History History of anesthesia reaction SLOW TO WAKE UP History of arthroscopy LEFT KNEE History of colonoscopy History of tooth extraction History of tonsillectomy History of cataract surgery RT/LEFT History of cholecystectomy History of appendectomy History of heart artery stent 1998>? # STENTS PLACED IN [facility] (FOLLWED BY DR. JACK SOUSA [facility]) Family History Other Colorectal cancer No family history of adverse response to anesthesia Social History Smoking Status: Never smoker Second Hand Exposure: No; Do You Dip or Chew Tobacco: No; Hx Alcohol Use: No Hx Substance Use: No Preferred Language: Divehi Communication Ability: Effective Communication Tools: Other Assistant Center Director Required: No Beliefs That Will Affect Care: None Current Living Situation: Spouse Other Information That Helps Us Care for You: No Feels Safe at Home: Yes Safety Concerns: Feels Safe At This Time Assistive Devices: Cane, Oxygen - Continuous and Walker Review of Systems Review of Systems: All systems reviewed & are unremarkable except as noted in HPI & below Physical Exam Constitutional: no acute distress Eyes: PERRL, conjunctivae normal, anicteric sclerae ENMT: external ear and nose normal, oropharynx normal Neck: trachea midline, no thyromegaly Respiratory: Auscultation: + diminished lung sounds and + crackles (Bibasilar) Cardiovascular: Rate/Rhythm: + irregularly irregular Heart Sounds: + murmur (Grade 1/6 systolic) Vessels: no JVD Extremities: no edema Gastrointestinal (Abdomen): normal bowel sounds, soft, nontender, no hepatosplenomegaly Musculoskeletal: AV fistula right brachial fossa with mild tenderness Neurologic: PERRL, EOMI, accommodation nl, no face palsy, no dysarthria Results & Data Vital Signs (Past 12 Hours) Vital Signs Temp Pulse Resp BP Pulse Ox O2 Del Method O2 Flow Rate 01/12/24 12:03 101 H 23 95 01/12/24 12:01 135/75 01/12/24 11:57 108 H 28 H 98 01/12/24 11:15 36.4 C L 01/12/24 11:00 95 H 29 H 98 01/12/24 11:00 137/78 01/12/24 10:00 135/66 01/12/24 10:00 107 H 24 99 01/12/24 09:06 111 H 21 100 01/12/24 08:06 103 H 28 H 99 01/12/24 08:04 145/71 H 01/12/24 08:03 120 H 24 100 01/12/24 07:48 36.4 C L 01/12/24 07:40 Nasal Cannula 4 01/12/24 07:12 91 H 18 91 01/12/24 07:01 136/61 01/12/24 06:57 103 H 22 92 01/12/24 06:47 97 H 01/12/24 06:15 94 H 22 94 01/12/24 05:12 126 H 21 01/12/24 04:45 120 H 19 99 Laboratory Results Laboratory Results - last 24 hr 01/11/24 01/11/24 01/12/24 16:56 20:08 04:30 WBC 9.87 D RBC 2.79 L Hgb 8.1 L Hct 26.5 L MCV 95.0 MCH 29.0 MCHC 30.6 L RDW Std Deviation 59.1 H RDW Coeff of John 17.4 H Plt Count 107 L MPV 10.1 Immature Gran % (Auto) Neut % (Auto) Lymph % (Auto) [place] % (Auto) Eos % (Auto) Baso % (Auto) Neut # (Auto) Lymph # (Auto) [place] # (Auto) Eos # (Auto) Baso # (Auto) Immature Gran # (Auto) Sodium 137 Potassium 4.1 Chloride 96 L Carbon Dioxide 30 Anion Gap 11 BUN 39 H Creatinine 4.33 H D Est Cr Clr Drug Dosing 13.3 eGFR 12.86 BUN/Creatinine Ratio 9.0 L Glucose 148 H POC Glucose 221 H 111 H Calcium 8.1 L 01/12/24 01/12/24 01/12/24 07:21 11:15 11:55 WBC 8.65 RBC 2.81 L Hgb 8.1 L Hct 27.0 L MCV 96.1 MCH 28.8 MCHC 30.0 L RDW Std Deviation 61.0 H RDW Coeff of John 17.6 H Plt Count 108 L MPV 10.0 Immature Gran % (Auto) 0.3 Neut % (Auto) 86.8 Lymph % (Auto) 3.6 [place] % (Auto) 9.2 Eos % (Auto) 0.1 Baso % (Auto) 0.0 Neut # (Auto) 7.50 H Lymph # (Auto) 0.31 L [place] # (Auto) 0.80 H Eos # (Auto) 0.01 Baso # (Auto) 0.00 Immature Gran # (Auto) 0.03 Sodium Potassium Chloride Carbon Dioxide Anion Gap BUN Creatinine Est Cr Clr Drug Dosing eGFR BUN/Creatinine Ratio Glucose POC Glucose 172 H 125 H Calcium 01/12/24 16:22 WBC RBC Hgb Hct MCV MCH MCHC RDW Std Deviation RDW Coeff of John Plt Count MPV Immature Gran % (Auto) Neut % (Auto) Lymph % (Auto) [place] % (Auto) Eos % (Auto) Baso % (Auto) Neut # (Auto) Lymph # (Auto) [place] # (Auto) Eos # (Auto) Baso # (Auto) Immature Gran # (Auto) Sodium Potassium Chloride Carbon Dioxide Anion Gap BUN Creatinine Est Cr Clr Drug Dosing eGFR BUN/Creatinine Ratio Glucose POC Glucose 101 H Calcium Diagnostic Findings Echocardiogram on serial testing in the last 6 months demonstrates moderate left ventricular prophy with preserved LV systolic function and wall motion. EF 60-65% Moderate aortic sclerosis without stenosis Moderate left atrial enlargement
[2024-01-12] MEDS: MIDODRINE HCL 2.5 MG TAB PO SCH (17:17)
[2024-01-12] MEDS: METOPROLOL SUCC 25MG EXT REL TAB PO SCH (20:03)
[2024-01-12] MEDS: MELATONIN 3 MG TAB PO PRN (22:35)
[2024-01-13 04:56] LABS: Hematocrit (blood only) 26.9 % (42.0-52.0); Hemoglobin 8.4 g/dl (14.0-18.0); Mean Corpuscular Hemoglobin 29.3 pg (25.0-34.0); Mean Corpuscular Hgb Conc 31.2 g/dL (32.0-36.0); Mean Corpuscular Volume 93.7 fL (80.0-100.0); Mean Platelet Volume 10.2 fL (9.4-12.4); Platelet Count 104 K/uL (130-400); RDW Coefficient of Variation 17.2 % (11.5-14.5); RDW Standard Deviation 58.2 fL (36.4-46.3); Red Blood Count 2.87 M/uL (4.70-6.10); White Blood Count 8.42 K/ul (4.8-10.8)
[2024-01-13 04:59] LABS: Calcium 8.2 mg/dl (8.6-10.3); Potassium 4.2 mmol/L (3.5-5.1)
[2024-01-13 05:37] LABS: BUN Creatinine Ratio 10.5 (10-20); Creatinine Clr Calc Pharmacy 9.1 ml/min
[2024-01-13] MEDS: VENLAFAXINE HCL XR 37.5 MG CAPXR PO SCH (07:55)
[2024-01-13] MEDS: ROSUVASTATIN CALCIUM 10 MG TAB PO SCH (07:55)
[2024-01-13] MEDS: PANTOprazole 40 MG TAB PO SCH (09:11)
--- NOTE | 2024-01-13 09:12 | Hospitalist Progress Note ---
Date of Service January 13, 2024 Assessment & Plan (1) Acute and chronic respiratory failure: (2) Volume overload: (3) COPD (chronic obstructive pulmonary disease): (4) MOLLY (obstructive sleep apnea): Plan: 83-year-old male with PMH CAD s/p stent, ESRD on HD, chronic hypoxemic respiratory failure on 4 L oxygen, COPD, HLD, atrial flutter/atrial fibrillation, history DVT, anticoagulated on Eliquis, MOLLY, CVA, prediabetes, presented to ER with c/o weakness and fall today. Recent admission for COPD exacerbation treated with doxycycline, steroids. In ER patient afebrile, P: 94, R: 24, BP 104/64, 91% on 4 L nasal cannula. Was placed on BiPAP WBC: 19. Procalcitonin: 1.86, Lactate: 2.0. Negative BioFire respiratory panel. VBG pH: 7.2, pCO2: 66. A. Initial troponin: 33 which is approximately patient's baseline CXR: Cardiomegaly with mild underinflation of the lungs. CT abd/pelvis: Partial visualization of atelectasis. Superimposed aspiration/pneumonia cannot be excluded. In ER given neb treatment, Solu-Medrol 125 mg IV, Zosyn Infectious workup negative Empirical zosyn was discontinued Volume overload being managed via HD (5) End-stage renal disease on hemodialysis: (6) Hyperkalemia: Plan: ESRD on HD on , sat schedule Per daughter, has been having some issues at HD recently that had sometimes affected getting full treatment On admission, K: 6.4 In ER given calcium gluconate, insulin R, dextrose and albuterol neb treatment Required levophed to maintain BP while being dialyzed on 01/09 and 01/10 Off levophed now Senior Research Executive on board Discussed with Nephro. Plan to dialyze tomorrow (7) GI bleed: Plan: Reported constipation recently which resolved with miralax Reported heme positive BM in ER CT Abd/pelvis: No acute abnormality in particular no evidence of acute fracture or intraperitoneal injury. Hgb: 8. Was 7.8 on 01/03/2024. Appears patient's baseline around 8-9 Dark stools per RN overnight Hb trended down Got 1 PRBC on 01/10, Hb has been stable in 8s. 8.4 this AM GI evaluation noted. Endoscopy deferred unless major bleeding occurs PPI drip stopped. Started on po PPI (8) Metabolic encephalopathy: Plan: CT head: no acute intracranial findings Continue to hold home lorazepam Encephalopathy seem resolved at this time (9) Atrial fibrillation/flutter: Plan: Anticoagulated on Eliquis Recent history atrial flutter/fib RVR with recent medication adjustments of dialysis days with diltiazem 30 mg in the morning and 10 mg midodrine before dialysis session with 50 metoprolol tartrate in the evening. Nondialysis days is to take metoprolol tartrate 50mg BID and midodrine 2.5mg TID. Diltiazem and metoprolol were initially held due to hypotension Cardiology eval and recs noted Home metoprolol tartarate changed to metoprolol succinate 25mg BID. Rate controlled Eliquis still on hold for now. Will continue to monitor (10) Coronary artery disease: Plan: S/P Stent Troponin 33-> 28 (11) History of DVT (deep vein thrombosis): Plan: On chronic Eliquis Holding Eliquis as above (12) Dyslipidemia: Plan: Was on atorvastatin at home DVT Prophylaxis SCDs for now DNR/DNI I spent a total of 50 minutes coordinating, documenting and providing care for this patient excluding time spent in performance of separately billed services Admission and Anticipated Discharge Date Admission Date: January 10, 2024 Subjective Patient seen and examined Patient is AOx3 today, sitting in chair Denied any chest pain, cough, palpitations Currently on nasal oxygen RN reported BM this AM was loose and brown Physical Exam Constitutional: + ill appearing and + well hydrated; no acute distress Eyes: PERRL, conjunctivae normal, anicteric sclerae ENMT: external ear and nose normal, oropharynx normal Respiratory: On nasal cannula, diminished breath sounds Cardiovascular: Rate/Rhythm: + irregularly irregular S1 S2 Gastrointestinal (Abdomen): normal bowel sounds, soft, nontender, no hepato splenomegaly Musculoskeletal: Trace pedal edema Neurologic: PERRL, EOMI, accommodation nl, no face palsy, no dysarthria Psychiatric: A+Ox3, euthymic affect Results & Data Results & Data Vital Signs (Past 12 Hours) Vital Signs Temp Pulse Pulse Resp BP Pulse Ox O2 Del Method 01/13/24 08:00 Room Air 01/13/24 08:00 36.5 C 102 H 16 99/66 L 95 Room Air 01/13/24 02:46 36.5 C 85 18 97/67 L 96 Nasal Cannula 01/13/24 00:00 95 H 01/12/24 22:43 36.4 C L 95 H 21 123/58 L 97 Nasal Cannula O2 Flow Rate 01/13/24 08:00 01/13/24 08:00 01/13/24 02:46 4 01/13/24 00:00 01/12/24 22:43 4 Laboratory Results Abnormal lab results 01/12/24 01/12/24 01/12/24 Range/Units 11:15 11:55 16:22 RBC 2.81 L (4.70-6.10) M/uL Hgb 8.1 L (14.0-18.0) g/dl Hct 27.0 L (42.0-52.0) % MCHC 30.0 L (32.0-36.0) g/dL RDW Std Deviation 61.0 H (36.4-46.3) fL RDW Coeff of John 17.6 H (11.5-14.5) % Plt Count 108 L (130-400) K/uL Neut # (Auto) 7.50 H (1.40-6.50) K/uL Lymph # (Auto) 0.31 L (1.20-3.40) K/uL [place] # (Auto) 0.80 H (0.11-0.59) K/uL Sodium (136-145) mmol/L Chloride (98-107) mmol/L BUN (6-23) mg/dl Creatinine (0.6-1.4) mg/dl Glucose (70-99(Fasting)) mg/dl POC Glucose 125 H 101 H (70-99) mg/dl Calcium (8.6-10.3) mg/dl 01/12/24 01/13/24 01/13/24 Range/Units 19:40 04:08 07:18 RBC 2.87 L (4.70-6.10) M/uL Hgb 8.4 L (14.0-18.0) g/dl Hct 26.9 L (42.0-52.0) % MCHC 31.2 L (32.0-36.0) g/dL RDW Std Deviation 58.2 H (36.4-46.3) fL RDW Coeff of John 17.2 H (11.5-14.5) % Plt Count 104 L (130-400) K/uL Neut # (Auto) (1.40-6.50) K/uL Lymph # (Auto) (1.20-3.40) K/uL [place] # (Auto) (0.11-0.59) K/uL Sodium 134 L (136-145) mmol/L Chloride 96 L (98-107) mmol/L BUN 64 H D (6-23) mg/dl Creatinine 6.12 H* D (0.6-1.4) mg/dl Glucose 117 H (70-99(Fasting)) mg/dl POC Glucose 128 H 122 H (70-99) mg/dl Calcium 8.2 L (8.6-10.3) mg/dl (1) Acute and chronic respiratory failure Respiratory failure complication: hypoxia Qualified Code(s): J96.21 - Acute and chronic respiratory failure with hypoxia (7) GI bleed GI bleed type/associated pathology: melena Qualified Code(s): K92.1 - Melena
--- NOTE | 2024-01-13 11:53 | Cardiology Progress Note ---
Date of Service January 13, 2024 Assessment & Plan (1) Atrial fibrillation/flutter: (2) Acute blood loss anemia: (3) Acute on chronic respiratory failure with hypoxemia: (4) End-stage renal disease (ESRD): Plan 83-year-old male with complex history including persistent atrial fibrillation, coronary artery disease, chronic obstructive lung disease O2 requiring with end- stage renal disease on chronic hemo-dialysis replacement. Hospitalized with acute volume overload and respiratory distress multifactorial. Acute on chronic anemia noted possible GI bleeding Patient not tolerating dialysis initially due to hypotension, elevated heart rates. Plan: 1. Atrial fibrillation with elevated ventricular response rate: -resume metoprolol succinate 25 mg BID -MANAGER CHINESE diltiazem has been discontinued. 2. Hypotension possible GI bleeding with melena -Hbg improved -Daksha remains on hold Admission and Anticipated Discharge Date Admission Date: January 10, 2024 Subjective Patient seen in cardiology follow-up. At present, denies subjective complaint. Remains in the emergency department, atrial fibrillation with rates in the 90s present during my evaluation. Blood pressure was 99/66. Physical Exam Physical Exam: General: No acute distress, chronically ill in appearance Eyes: conjunctiva are pink and non-injected, sclera clear Neck: normal jugular venous pulse, no hepatojugular reflux Chest: normal shape and normal respiratory effort Lungs: clear to auscultation and percussion Cardiac Exam: - irregular rhythm, no murmurs Abdomen: abdomen soft, non-tender, no abnormal masses and no hepatosplenomegaly Musculoskeletal: no gait disturbance, no weakness Extremities: no edema and no cyanosis Neuro:awake, conversant, follows commands, no focal motor deficits Results & Data Vital Signs (Past 12 Hours) Vital Signs Temp Pulse Pulse Resp BP Pulse Ox O2 Del Method 01/13/24 09:11 93 H 126/60 01/13/24 08:00 Room Air 01/13/24 08:00 36.5 C 102 H 16 99/66 L 95 Room Air 01/13/24 02:46 36.5 C 85 18 97/67 L 96 Nasal Cannula 01/13/24 00:00 95 H O2 Flow Rate 01/13/24 09:11 01/13/24 08:00 01/13/24 08:00 01/13/24 02:46 4 01/13/24 00:00 Laboratory Results CBC 01/12/24 01/13/24 Range/Units 11:55 04:08 WBC 8.65 8.42 (4.8-10.8) K/ul RBC 2.81 L 2.87 L (4.70-6.10) M/uL Hgb 8.1 L 8.4 L (14.0-18.0) g/dl Hct 27.0 L 26.9 L (42.0-52.0) % Plt Count 108 L 104 L (130-400) K/uL Neut # (Auto) 7.50 H (1.40-6.50) K/uL Lymph # (Auto) 0.31 L (1.20-3.40) K/uL [place] # (Auto) 0.80 H (0.11-0.59) K/uL Eos # (Auto) 0.01 (0.00-0.50) K/uL Baso # (Auto) 0.00 (0.00-0.20) K/uL Comprehensive Metabolic Panel 01/13/24 Range/Units 04:08 Sodium 134 L (136-145) mmol/L Potassium 4.2 (3.5-5.1) mmol/L Chloride 96 L (98-107) mmol/L Carbon Dioxide 27 (21-32) mmol/L BUN 64 H D (6-23) mg/dl Creatinine 6.12 H* D (0.6-1.4) mg/dl Glucose 117 H (70-99(Fasting)) mg/dl Calcium 8.2 L (8.6-10.3) mg/dl Intake and Output 01/12/24 01/13/24 01/13/24 22:59 06:59 14:59 Intake Total 240 / 1026.667 300 / 1026.667 200 / 200 Output Total 1 / 2 1 / 2 Balance 239 / 1024.667 299 / 1024.667 200 / 200 Intake: Oral 240 / 780 300 / 780 200 / 200 Output: Urine 0 / 0 # Bowel Movements 1 / 2 1 / 2 Other: # Unmeasured Voids 0 0 Weight 89.1 kg Weight Measurement Method Standing Scale Patient Weight 01/14/24 06:59 Weight 89.1 kg
--- NOTE | 2024-01-13 13:24 | Nephrology Progress Note ---
Date of Service January 13, 2024 Assessment & Plan (1) End-stage renal disease (ESRD): Plan: a/W chronic respiratory failure 2/ volume overload underwent urgent dialysis on 12/30 w/ 4.5 lit UF, and again on 01/10 w 4.5 lit today w/ 1 u PRBC . respiratory status has improved - his normal days are Saturday - no need for any dialysis today, he is comfortable with no shortness of breath. - Will dialyze him again tomorrow with a 2 to 2.5 L UF. -from renal standpoint he can be discharged home after dialysis tomorrow. tends to have hypotension on HD >> give midodrine 10 mg about 30 min prior to treatement; else continue home midodrine (2) Acute on chronic respiratory failure with hypoxemia: Plan: much improved after 2 dialysis sessions (3) GIB (gastrointestinal bleeding): Plan: continues to have bright red blood per rectum, received 1 unit of PRBC, hemoglobin stable > per primary service Admission and Anticipated Discharge Date Admission Date: January 10, 2024 Subjective Sitting comfortably on bed.No shortness of breath, Normal hemodynamic Review of Systems 2 Review of Systems: All systems reviewed & are unremarkable except as noted in HPI & below Physical Exam 2 Physical Exam: Remains hemodynamically stable with blood pressure at 135/95 Chestdecreased breath sound bilaterally with occasional rhonchi and crackles at the bases HeartS1-S2, regular Abdomendistended, bowel sound present and benign Extremities- 1+ edema bilaterally Results & Data Vital Signs (Past 12 Hours) Vital Signs Temp Pulse Resp BP Pulse Ox O2 Del Method O2 Flow Rate 01/13/24 09:11 93 H 126/60 01/13/24 08:00 Room Air 01/13/24 08:00 36.5 C 102 H 16 99/66 L 95 Room Air 01/13/24 02:46 36.5 C 85 18 97/67 L 96 Nasal Cannula 4 Laboratory Results 01/13/24 04:08 01/13/24 04:08 (3) GIB (gastrointestinal bleeding) GI bleed type/associated pathology: unspecified gastrointestinal hemorrhage type Qualified Code(s): K92.2 - Gastrointestinal hemorrhage, unspecified
--- NOTE | 2024-01-13 14:09 | Communication Note ---
Date of Service: January 13, 2024 GI following for anemia. H/H remains stable at 8.4/26.9. Endoscopic evaluation has been deferred given overall clinical status. Patient having brown stool without bleeding this AM. Continue PPI. Continue to monitor H/H. Would continue to defer endoscopic evaluation unless major bleeding occurs. Please re-consult GI if clinical situation changes.
[2024-01-14 08:25] LABS: Hematocrit (blood only) 30.9 % (42.0-52.0); Hemoglobin 9.2 g/dl (14.0-18.0); Mean Corpuscular Hemoglobin 28.5 pg (25.0-34.0); Mean Corpuscular Hgb Conc 29.8 g/dL (32.0-36.0); Mean Corpuscular Volume 95.7 fL (80.0-100.0); Mean Platelet Volume 9.9 fL (9.4-12.4); Platelet Count 138 K/uL (130-400); RDW Coefficient of Variation 16.8 % (11.5-14.5); RDW Standard Deviation 57.3 fL (36.4-46.3); Red Blood Count 3.23 M/uL (4.70-6.10); White Blood Count 10.68 K/ul (4.8-10.8)
[2024-01-14] MEDS: LORazepam 0.5 MG TAB PO PRN (09:22)
--- NOTE | 2024-01-14 09:27 | Cardiology Progress Note ---
Date of Service January 14, 2024 Assessment & Plan (1) Atrial fibrillation/flutter: (2) Acute blood loss anemia: (3) Acute on chronic respiratory failure with hypoxemia: (4) End-stage renal disease (ESRD): Plan 83-year-old male with complex history including persistent atrial fibrillation, coronary artery disease, chronic obstructive lung disease O2 requiring with end- stage renal disease on chronic hemo-dialysis replacement. Hospitalized with acute volume overload and respiratory distress multifactorial. Acute on chronic anemia noted possible GI bleeding Patient not tolerating dialysis initially due to hypotension, elevated heart rates. Plan: 1. Atrial fibrillation with elevated ventricular response rate: -resume metoprolol succinate 25 mg BID -MANAGER MOBILE diltiazem has been discontinued. -If tachycardia continues to be an issue, future considerations include single- chamber pacemaker placement and AV junction ablation, However minimizing/Avoiding invasive procedures likely best option if at all possible. 2. Hypotension possible GI bleeding with melena -Hbg improved -Resume Eliquis 2.5 mg twice daily at discharge if tolerated dialysis today Hypotension with dialysis: Continue midodrine 2.5 mg 3 times daily, and 10 mg before dialysis sessions (instead of the 2.5 mg dose that morning). Patient due for dialysis today. Admission and Anticipated Discharge Date Admission Date: January 10, 2024 Subjective Patient seen in cardiology follow up. Patient lying supine. In good spirits. Denies respiratory distress. Denies subjective palpitations. Telemetry reveals atrial fibrillation/flutter with resting rate in the 70s to 90s. Most recent blood pressure 110/73 Physical Exam Physical Exam: General: No acute distress, chronically ill in appearance Eyes: conjunctiva are pink and non-injected, sclera clear Neck: normal jugular venous pulse, no hepatojugular reflux Chest: normal shape and normal respiratory effort Lungs: clear to auscultation and percussion Cardiac Exam: - irregular rhythm, no murmurs Abdomen: abdomen soft, non-tender, no abnormal masses and no hepatosplenomegaly Musculoskeletal: no gait disturbance, no weakness Extremities: no edema and no cyanosis Neuro:awake, conversant, follows commands, no focal motor deficits Results & Data Vital Signs (Past 12 Hours) Vital Signs Temp Pulse Pulse Resp BP Pulse Ox O2 Del Method 01/14/24 07:34 36.5 C 80 19 117/73 98 Nasal Cannula 01/14/24 07:30 Nasal Cannula 01/14/24 07:30 97 H 01/14/24 03:25 36.5 C 94 H 18 135/82 91 Nasal Cannula 01/13/24 23:17 36.4 C L 87 19 98/61 L 95 Nasal Cannula 01/13/24 21:58 96 H O2 Flow Rate 01/14/24 07:34 3 01/14/24 07:30 4 01/14/24 07:30 01/14/24 03:25 3 01/13/24 23:17 3 01/13/24 21:58
[2024-01-14 09:28] LABS: BUN Creatinine Ratio 11.3 (10-20); Calcium 8.6 mg/dl (8.6-10.3); Potassium 4.7 mmol/L (3.5-5.1)
--- NOTE | 2024-01-14 14:32 | Nephrology Progress Note ---
Date of Service January 14, 2024 Assessment & Plan (1) End-stage renal disease (ESRD): Plan: a/W chronic respiratory failure 2/ volume overload underwent urgent dialysis on 12/30 w/ 4.5 lit UF, and again on 01/10 w 4.5 lit today w/ 1 u PRBC . respiratory status has improved - his normal days are Saturday, diltiazem has been stopped by cardiology, on metoprolol 25 BID - Dialyses today w/ 2 to 2.5 L UF. -from renal standpoint he can be discharged home after dialysis tomorrow. Tends to have hypotension on HD >> give midodrine 10 mg about 30 min prior to treatement; else continue home midodrine (2) Acute on chronic respiratory failure with hypoxemia: Plan: much improved (3) GIB (gastrointestinal bleeding): Plan: continues to have bright red blood per rectum, received 1 unit of PRBC, hemoglobin stable > per primary service Admission and Anticipated Discharge Date Admission Date: January 10, 2024 Subjective Comfortable,no SOB,No Palpitations Review of Systems Review of Systems: All systems reviewed & are unremarkable except as noted in HPI & below Physical Exam Physical Exam: Remains hemodynamically stable with blood pressure at 135/95 Chestdecreased breath sound bilaterally with occasional rhonchi and crackles at the bases HeartS1-S2, regular Abdomendistended, bowel sound present and benign Extremities- 1+ edema bilaterally Results & Data Vital Signs (Past 12 Hours) Vital Signs Temp Pulse Pulse Pulse Resp BP BP 01/14/24 14:17 97 H 01/14/24 13:22 36.5 C 72 18 106/48 L 01/14/24 12:00 95 H 120/68 01/14/24 11:30 79 113/71 01/14/24 11:00 79 121/66 01/14/24 10:30 67 129/96 01/14/24 10:00 72 127/79 01/14/24 09:30 74 106/69 01/14/24 09:10 36.5 C 82 01/14/24 07:34 36.5 C 80 19 117/73 01/14/24 07:30 01/14/24 07:30 97 H 01/14/24 03:25 36.5 C 94 H 18 135/82 Pulse Ox O2 Del Method O2 Flow Rate 01/14/24 14:17 01/14/24 13:22 90 Nasal Cannula 3 01/14/24 12:00 01/14/24 11:30 01/14/24 11:00 01/14/24 10:30 01/14/24 10:00 01/14/24 09:30 01/14/24 09:10 01/14/24 07:34 98 Nasal Cannula 3 01/14/24 07:30 Nasal Cannula 4 01/14/24 07:30 01/14/24 03:25 91 Nasal Cannula 3 (3) GIB (gastrointestinal bleeding) GI bleed type/associated pathology: unspecified gastrointestinal hemorrhage type Qualified Code(s): K92.2 - Gastrointestinal hemorrhage, unspecified
--- NOTE | 2024-01-14 15:17 | Discharge Summary ---
Date of Service January 14, 2024 Admission HPI Per Admitting Provider Patient is 83-year-old male with PMH CAD s/p stent, ESRD on HD, chronic hypoxemic respiratory failure on 4 L oxygen, COPD, HLD, atrial flutter/atrial fibrillation, history DVT, anticoagulated on Eliquis, MOLLY, CVA, prediabetes, presented to ER with c/o weakness and fall. History obtained from patient's and daughter at bedside as well as inpatient chart review. Patient with history recurrent hospitalizations. Most recent [facility] hospital admission 12/25/2023- 12/30/2023 for atrial flutter/atrial fibrillation with RVR that was noted after patient ambulated without his oxygen. Patient with known difficult control heart rates and BP's as has issues with intradialytic hemodynamic instability. Medications were adjusted and upon discharge with plan for dialysis days with diltiazem 30 mg in the morning and 10 mg midodrine before dialysis session and midodrine 2.5mg noon and supper and 50mg metoprolol tartrate in the evening. Nondialysis days is to take metoprolol tartrate 50mg BID and midodrine 2.5mg TID. Was also treated for COPD exacerbation with negative BioFire respiratory panel and chest x-ray was without infiltrate. He was treated with doxycycline, IV Solu-Medrol, Mucinex, nebs with improvement. States patient has been having difficulty finishing his dialysis sessions and missed HD yesterday. It is reported patient is up 10 pounds. States patient wasn't feeling well yesterday. Report patient slid and fell onto his buttocks this morning and denied hitting his head today. But reports hit head on door yesterday and had intermittent [place] since. Reported patient has been having constipation. States took Miralax and had BM last night. Was having some reported abdominal discomfort. Reported had bowel movement in ER that was heme positive and was started on Protonix drip. In ER patient placed on bipap as O2 sats 91% on his normal 4L via nasal cannula. Reported some coughing. Currently is difficult to obtain a thorough history secondary to bipap being on place and patient appears confused and just asking to get up and go home. Admission Exam Per Admitting Provider On examination lying in bed with shortness of breath and with BiPAP in situ Remains hemodynamically stable with blood pressure at 133/94 and afebrile Chestdecreased breath sound bilaterally with occasional rhonchi and crackles at the bases HeartS1-S2, regular Abdomendistended, bowel sound present and benign Extremities- 1+ edema bilaterally Principal Diagnosis Acute on chronic respiratory failure Volume overload Atrial fibrillation ESRD on Hemodialysis Acute on chronic anemia Discharge Exam Constitutional + well hydrated; no acute distress Eyes PERRL, conjunctivae normal, anicteric sclerae ENMT external ear and nose normal, oropharynx normal Respiratory On nasal cannula, diminished breath sounds Cardiovascular Rate/Rhythm: + irregularly irregular Gastrointestinal (Abdomen) normal bowel sounds, soft, nontender, no hepatosplenomegaly Musculoskeletal +pedal edema Neurologic PERRL, EOMI, accommodation nl, no face palsy, no dysarthria Psychiatric A+Ox3, euthymic affect Discharge Data Allergies Allergy/AdvReac Type Severity Reaction Status Date / Time lorazepam AdvReac Intermediate Hallucinati Verified 11/10/23 19:09 ng/Confusio n Consultations 01/10/24 10:53 ED Decision to Admit Stat 01/10/24 11:50 Consult Nephrology Stat 01/10/24 13:42 Consult Veterinary Milk Specialist Routine 01/10/24 14:52 Consult Nephrology Routine 01/10/24 18:52 Consult Gastroenterology Routine 01/12/24 10:35 Consult Cardiology Routine Ordered Studies 01/10/24 09:51 CT abd pelvis wo con Stat CT cervical spine wo con Stat CT head/brain wo con Stat Hospital Course (1) Acute and chronic respiratory failure: (2) Volume overload: (3) COPD (chronic obstructive pulmonary disease): (4) MOLLY (obstructive sleep apnea): 83-year-old male with PMH CAD s/p stent, ESRD on HD, chronic hypoxemic respiratory failure on 4 L oxygen, COPD, HLD, atrial flutter/atrial fibrillation, history DVT, anticoagulated on Eliquis, MOLLY, CVA, prediabetes, presented to ER with c/o weakness and fall today. Recent admission for COPD exacerbation treated with doxycycline, steroids. In ER patient afebrile, P: 94, R: 24, BP 104/64, 91% on 4 L nasal cannula. Was placed on BiPAP WBC: 19. Procalcitonin: 1.86, Lactate: 2.0. Negative BioFire respiratory panel. VBG pH: 7.2, pCO2: 66. A. Initial troponin: 33 which is approximately patient's baseline CXR: Cardiomegaly with mild underinflation of the lungs. CT abd/pelvis: Partial visualization of atelectasis. Superimposed aspiration/pneumonia cannot be excluded. In ER, he was given neb treatment, Solu-Medrol 125 mg IV, Zosyn Patient was initially admitted to ICU Infectious workup negative Empirical zosyn that was started on admission was discontinued once infection was ruled out Volume overload was managed with HD Required low dose levophed to maintain adequate MAP for HD during the first 2 days in the hospital (5) End-stage renal disease on hemodialysis: (6) Hyperkalemia: ESRD on HD on , sat schedule Per daughter, has been having some issues at HD recently that had sometimes affected getting full treatment On admission, K: 6.4 In ER, he was given calcium gluconate, insulin R, dextrose and albuterol neb treatment Required levophed to maintain BP while being dialyzed on 01/09 and 01/10 K is 4.7 today Got HD today. Continue normal HD schedule on discharge (7) GI bleed: Reported constipation recently which resolved with miralax Reported heme positive BM in ER CT Abd/pelvis: No acute abnormality in particular no evidence of acute fracture or intraperitoneal injury. Hb was 8 on admission Was 7.8 on 01/03/2024. Appears patient's baseline around 8-9 Had dark bloody stool on presentation Got 1 PRBC on 01/10 and home eliquis was held Hb has been stable since 9.2 this AM He was initially on PPI drip GI evaluated but deferred endoscopy due to comorbidities and bloody stool resolved GI recommends PPI PO If bleeding recurs, patient needs to follow up with GI (8) Metabolic encephalopathy: CT head: no acute intracranial findings Encephalopathy completely resolved Patient back to his baseline (9) Atrial fibrillation/flutter: Anticoagulated on Eliquis at home Recent history atrial flutter/fib RVR with recent medication adjustments of dialysis days with diltiazem 30 mg in the morning and 10 mg midodrine before dialysis session with 50 metoprolol tartrate in the evening. Nondialysis days is to take metoprolol tartrate 50mg BID and midodrine 2.5mg TID. Diltiazem and metoprolol were initially held due to hypotension Cardiology evaluated while inpatient Home metoprolol tartarate changed to metoprolol succinate 25mg BID. Rate controlled Diltiazem discontinued Eliquis was initially held as above Discussed with Policy Service Coordinator Dr Mathis today; Ok to resume home eliquis 2.5mg bid (10) Coronary artery disease: S/P Stent Troponin 33-> 28 (11) History of DVT (deep vein thrombosis): On chronic Eliquis (12) Dyslipidemia: On atorvastatin at home I called Daughter Dr Pinedo and updated her Total Time Total Time Spent Total Time Spent (In Minutes): 45 Total Time Includes: Examination of the Patient, Discharge Planning, Medication Reconciliation, Communication With Other Providers and Other Discharge Plan Discharge Items Patient Disposition: Home - Self-Care Reason For Visit: HYPERKALEMIA Discharge Diagnosis: Acute on chronic respiratory failure Volume overload Atrial fibrillation ESRD on Hemodialysis Acute on chronic anemia Activity: Resume your previous activity Non-emergency contact: Primary Care Provider, Policy Service Coordinator and Nail Kegger Call non-emergency contact if: you have any medication questions and your symptoms worsen Follow-up/Referrals: Augustin Mathis DO [Policy Service Coordinator] - Jody Arora MD [Primary Care Provider] - (Date & Time 01/22/2024 12:00 PM Provider Jody Arora MD Department Family Medicine [facility] ) Diet: Dialysis Renal Addtl Attending Provider Instructions: Mr Pinedo You were hospitalized and managed for the above listed diagnoses. Please stop taking diltiazem Your metoprolol tartrate was changed to metoprolol succinate. If you have any more bloody stool, please ensure follow up with Gastroenterology. Please ensure follow up with your Primary Doctor and Policy Service Coordinator It was a pleasure taking care of you. Pending Studies at Discharge: No Stand-Alone Forms: My View[employer], Smoking Cessation Medications and DC Order Prescriptions: New pantoprazole 40 mg Tablet,Delayed Release (Dr/Ec) 40 mg PO QAM 30 Days Qty: 30 0RF metoprolol succinate 25 mg Tablet Extended Release 24 Hr 25 mg PO BID 30 Days Qty: 60 0RF Continued venlafaxine [Effexor XR] 37.5 mg Capsule,Extended Release 24hr 37.5 mg PO DAILY buspirone 5 mg tablet [address] [facility] Izzy-Vianney 0.8 mg tablet 1 tab PO 3XWK Rx Instructions: take after dialysis Bevespi Aerosphere 9-4.8 mcg HFA aerosol inhaler 1 puff INHALATION BID Eliquis 2.5 mg Tablet 2.5 mg PO BID Qty: 60 0RF ipratropium-albuterol 0.5 mg-3 mg(2.5 mg base)/3 mL solution for nebulization 3 ml NEB Q4 PRN (Reason: Wheezing) Rx Instructions: J44.9 albuterol sulfate 2.5 mg /3 mL (0.083 %) solution for nebulization 2.5 mg continuous nebulization Q6 PRN (Reason: Wheezing) albuterol sulfate 90 mcg/actuation HFA aerosol inhaler 2 puff INHALATION Q4 PRN (Reason: Wheezing) midodrine 2.5 mg Tablet 2.5 mg PO TID@0800,1200,1700 30 Days Qty: 90 0RF Rx Instructions: On non-dialysis days TID. On dialysis days 10mg midodrine before dialysis with 2.5mg midodrine 1200, 1700 guaifenesin [Mucinex] 600 mg Tablet Extended Release 12hr 600 mg PO Q12 Qty: 60 0RF midodrine 10 mg tablet 10 mg PO 3XWK PRN (Reason: before dialysis) Qty: 30 0RF Rx Instructions: please take 10mg prior to dialysis instead of scheduled 2.5mg midodrine of HD days. rosuvastatin 10 mg Tablet 10 mg PO QAM nitroglycerin [Nitrostat] 0.4 mg Tablet, Sublingual 0.4 mg sublingual UD PRN (Reason: Chest Pain) lorazepam 0.5 mg tablet 0.5 mg PO DIRECTED Rx Instructions: Take 15 -20 min before dialysis. calcium acetate(phosphat bind) 667 mg capsule 1,334 mg PO TIDWMEAL Rx Instructions: Take 1 tab with snack Discontinued metoprolol tartrate 50 mg tablet 50 mg PO UD Rx Instructions: On days of dialysis, hold morning dose of metoprolol and metoprolol tartrate 50 mg in the evening on dialysis days. Nondialysis days is to take metoprolol tartrate 50mg BID diltiazem HCl 30 mg tablet 30 mg PO UD Rx Instructions: On days of dialysis, take diltiazem 30 mg in the morning. Hold morning dose of metoprolol. Take metoprolol tartrate 50 mg in the evening on dialysis days. Discharge Orders: Discharge Order (Routine); Ordered 01/14/24 Ordered By: Leonila Hatch Admission Data Admit Date/Time: 01/10/24 13:42 Attending Provider: Leonila Hatch I. Admit Provider: Nate Angulo Primary Care Provider: Jody Arora Other Providers: Rosy Patel; Nate Angulo; Rogelio Villavicencio; Laith Mckeon; Hetcor Garrett; Tameka Fernandez; Madison Mark; Tanja Arias; Beth Angulo; Evelia Brandt; Jermain Knutson; Maria Elena Benites; Cheng Urbano; Saad Banda; Yanet Chávez; Cairssa Mason; Jenny Pritchett; Ngozi Wood; Uri Arnold; Arthur Guillen; Cayla Gomez; Stephanie Clemons Jr; Homer Castillo.; Mohsen Murcia; Rolo Hooker; Pepe Lockhart; Rochelle Ramirez; Marc Edwards I; Zuleyka Lopez; Sarath Bruce Other Interventions: Discharge Summary Assessment (RN) Last Done: 01/14/24 15:56
[2024-01-14 16:02] VITALS: BP 131/69; PULSE 91; RESP 19; TEMP 98.1; O2SAT 95
[2024-01-14] MEDS: ACETAMINOPHEN 325 MG TAB PO PRN (16:59)
== END 2024-01-14 18:55 | disposition home or self-care (01) | DRG 640 ==
LOC: ED 09:28 → 1E 13:42 → SUATTDRO 13:42 → 1E 15:06 → 4W 01-13 17:03
DX: D47.2 Monoclonal gammopathy; Z79.01 Long term (current) use of anticoagulants; I12.0 Hypertensive chronic kidney disease with 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; Z99.2 Dependence on renal dialysis; F41.9 Anxiety disorder, unspecified; E87.5 Hyperkalemia; J98.11 Atelectasis; R29.6 Repeated falls; J96.21 Acute and chronic respiratory failure with hypoxia; Z87.891 Personal history of nicotine dependence; I48.92 Unspecified atrial flutter; G93.41 Metabolic encephalopathy; N18.6 End stage renal disease; I95.3 Hypotension of hemodialysis; J96.22 Acute and chronic respiratory failure with hypercapnia; K92.2 Gastrointestinal hemorrhage, unspecified; E87.70 Fluid overload, unspecified; I48.91 Unspecified atrial fibrillation; D63.1 Anemia in chronic kidney disease; Z86.718 Personal history of other venous thrombosis and embolism; Z88.8 Allergy status to other drugs, medicaments and biological substances; Z66 Do not resuscitate; Z95.5 Presence of coronary angioplasty implant and graft; I25.10 Atherosclerotic heart disease of native coronary artery without angina pectoris; C64.2 Malignant neoplasm of left kidney, except renal pelvis; I69.341 Monoplegia of lower limb following cerebral infarction affecting right dominant side; Z99.81 Dependence on supplemental oxygen; J69.0 Pneumonitis due to inhalation of food and vomit; D62 Acute posthemorrhagic anemia; Z79.899 Other long term (current) drug therapy; F32.A Depression, unspecified; J44.9 Chronic obstructive pulmonary disease, unspecified

== ENCOUNTER 2024-01-28 09:16 | Inpatient (IN) ==
--- NOTE | 2024-01-28 09:40 | Emergency Department Note ---
Impression & Plan COPD exacerbation, Hypoxia, ESRD on dialysis ED Provider Note Diagnosis: COPD exacerbation, hypoxia, end-stage renal disease, fluid overload Disposition: Admit CHIEF COMPLAINT: Shortness of breath HPI: Patient is a 83-year-old male presenting with complaint of shortness of breath. Patient's has end-stage renal disease and receives dialysis and was currently out of treatment today only got 1 hour into a before becoming acutely hypoxic. Patient reportedly wears 4 L nasal cannula support at baseline and he was 80% for the dialysis nurse. Patient not able to provide much history of present illness. Patient does answer questions briefly with yes or no answers. Patient was given DuoNeb treatment en route to the hospital. PAST MEDICAL HISTORY: See Below PAST SURGICAL HISTORY: See Below SOCIAL HISTORY: See Below HOME MEDICATIONS: See Below ALLERGIES: See Below VITALS: See Below PHYSICAL EXAMINATION: GENERAL: Well appearing, well nourished, NAD, non-toxic. EYE EXAM: Normal conjunctiva. OROPHARYNX: Moist mucus membranes. Grossly normal dentition. NECK: Supple, LUNGS: Diminished breath sounds bilaterally with wheezing, increased work of breathing respiratory rate HEART: NSR, bilateral 2+ pitting edema ABDOMEN: Abdomen soft, non-tender, normo-active bowel sounds, no masses, no rebound or guarding BACK: No CVA TTP. SKIN: No rashes and no bruising. UPPER EXTREMITIES: Upper extremities are grossly normal LOWER EXTREMITIES: Grossly normal, no edema. NEURO EXAM: A&O x3,, normal speech, moves all 4 extremities PSYCH: Cooperative MEDICAL DECISION MAKING: History obtained from: Patient ER Course: Patient is an 83-year-old male with end-stage renal disease presenting from dialysis with shortness of breath and hypoxia. Patient is on baseline oxygen of 4 L nasal cannula support. Patient was found to be 80% on his 4 L during treatment and they stopped it abruptly 1 hour in. Patient upon arrival emergency room continues to be hypoxic and tachypneic. Patient given steroids and DuoNeb treatments due to wheezing and diminished breath sounds bilaterally. Patient had an ABG performed which showed a CO2 of 53. Decision for BiPAP was held until after DuoNeb treatments were given. Patient now on reevaluation had resolution of his tachypnea he was breathing closer to 20 to 20 breaths/min instead of 40-45 upon initial presentation. Patient's mental status cleared up significantly much more awake and alert. Patient has no focal deficits. Patient denies any chest pain. Patient's has no fever and no leukocytosis. Patient's chest x-ray read by radiology as potential atelectasis versus pneumonia. Patient was given Zithromax as prophylaxis for COPD exacerbation. Will order procalcitonin. Patient admitted to hospital service for further treatment and evaluation. Labs (independently interpreted) are significant for: BNP elevated Imaging results (independently interpreted): Chest x-ray atelectasis lower bases EKG interpretation (independently interpreted): Normal sinus rhythm no ST segment elevation or depression Medications given: Solu-Medrol, DuoNeb x 3, Lasix Consultants: Hospitalist Chronic conditions affecting care: End-stage renal disease Triage Nursing notes reviewed and agree them. Vital Signs: reviewed and remarkable for: Hypoxia Past Med/Surg History Problem List (Updated 01/28/24 @ 14:04 by Amilcar Mims DO) ESRD on dialysis (Acute) Hypoxia (Acute) COPD exacerbation (Acute) Acute blood loss anemia Metabolic encephalopathy Acute on chronic respiratory failure with hypoxemia Uremia Volume overload (Acute) Pneumonia (Acute) GIB (gastrointestinal bleeding) (Acute) Hyperkalemia (Acute) End-stage renal disease (ESRD) (Acute) Acute on chronic respiratory failure with hypoxia and hypercapnia (Acute) History of DVT (deep vein thrombosis) MOLLY (obstructive sleep apnea) Atrial fibrillation/flutter Hypotension GI bleed Acute respiratory acidosis End-stage renal disease on hemodialysis (Acute) Atrial flutter with rapid ventricular response (Acute) Bifascicular bundle branch block AV fistula Hyperkalemia Pressure injury of buttock, stage 1 Atrial flutter with rapid ventricular response Open thigh wound Acute on chronic diastolic HF (heart failure) Hypercarbia (Acute) Acute hyponatremia (Acute) Edema (Acute) Shortness of breath (Acute) New onset atrial fibrillation Acute on chronic respiratory failure with hypoxia and hypercapnia Atrial fibrillation with RVR (Acute) Hypersomnolent Restrictive lung disease Chronic pulmonary aspiration Volume overload (Acute) End-stage renal disease (ESRD) (Acute) COPD with exacerbation (Acute) Dyslipidemia BPH (benign prostatic hyperplasia) Coronary artery disease S/p stent 1998 HTN (hypertension) Chronic hypoxemic respiratory failure (Acute) Anemia of chronic renal failure Hgb 8-9's per record review COPD (chronic obstructive pulmonary disease) Medical History Multifocal pneumonia Left renal mass Pneumonia due to COVID-19 virus Urinary frequency Hx of blood clots "IN MY LEGS AND 1 IN MY LUNGS A LONG TIME AGO">WAS ON BLOOD THINNERS, CAUSED BY PHLEBITIS History of COVID-19 02/02/22>STILL HAS FATIGUE Adjustment disorder with mixed disturbance of emotions and conduct History of basal cell carcinoma Carotid stenosis, right 50-69% stenosis to right ICA; <50% stenosis to left ICA per 06/22/21 carotid duplex History of stroke 2016 OR 2018 >NO RESIDUAL History of ME (myocardial infarction) 1998 MOLLY and COPD overlap syndrome WEARS 4L O2 AT HS Prediabetes PT DENIES Renal osteodystrophy Papillary renal cell carcinoma WITH MALIGNANCY>NO TREATMENT YET (CURRENT DX) Surgical History History of anesthesia reaction SLOW TO WAKE UP History of arthroscopy LEFT KNEE History of colonoscopy History of tooth extraction History of tonsillectomy History of cataract surgery RT/LEFT History of cholecystectomy History of appendectomy History of heart artery stent 1998>? # STENTS PLACED IN [facility] (FOLLWED BY DR. 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: No Beliefs That Will Affect Care: None Current Living Situation: Spouse Feels Safe at Home: Yes Assistive Devices: Cane, Oxygen - Continuous and Walker Allergies Allergies Allergy/AdvReac Type Severity Reaction Status Date / Time lorazepam AdvReac Intermediate Hallucinati Verified 11/10/23 19:09 ng/Confusio n Home Meds Home Medications Medication Instructions Recorded Confirmed venlafaxine 37.5 mg 37.5 mg PO DAILY 02/01/22 01/28/24 capsule,extended release 24 hr (Effexor XR) nitroglycerin 0.4 mg sublingual 0.4 mg sublingual UD PRN Chest Pain 05/14/23 01/28/24 tablet (Nitrostat) rosuvastatin 10 mg tablet 10 mg PO QAM 05/14/23 01/28/24 buspirone 5 mg tablet 5 mg PO AMHS 08/26/23 01/28/24 glycopyrrolate 9 mcg-formoterol 1 puff inhalation BID 08/26/23 01/28/24 4.8 mcg HFA aerosol inhaler (Bevespi Aerosphere) vitamin B complex-vitamin C-folic 1 tab PO 3XWK 08/26/23 01/28/24 acid 0.8 mg tablet (Izzy-Vianney) ipratropium 0.5 mg-albuterol 3 mg 3 ml NEB Q4 PRN Wheezing 10/31/23 01/28/24 (2.5 mg base)/3 mL nebulization soln calcium acetate(phosphat bind) 667 1,334 mg PO TIDWMEAL 11/10/23 01/28/24 mg capsule lorazepam 0.5 mg tablet 0.5 mg PO DIRECTED 11/10/23 01/28/24 albuterol sulfate 2.5 mg/3 mL 2.5 mg continuous nebulization Q6 12/25/23 01/28/24 (0.083 %) solution for nebulization PRN Wheezing albuterol sulfate 90 mcg/actuation 2 puff inhalation Q4 PRN Wheezing 12/25/23 01/28/24 aerosol inhaler Previous Rx's Medication Instructions Recorded apixaban 2.5 mg tablet (Eliquis) 2.5 mg PO BID #60 tabs 08/29/23 guaifenesin 600 mg tablet, 600 mg PO Q12 #60 tabs 12/30/23 extended release 12 hr (Mucinex) midodrine 2.5 mg tablet 2.5 mg PO TID@0800,1200,1700 30 12/30/23 days #90 tabs midodrine 10 mg tablet 10 mg PO 3XWK PRN before dialysis 01/01/24 #30 tabs metoprolol succinate 25 mg 25 mg PO BID 30 days #60 tabs 01/14/24 tablet,extended release 24 hr pantoprazole 40 mg tablet,delayed 40 mg PO QAM 30 days #30 tabs 01/14/24 release Results & Data (ED) Vital Signs Vital Signs - 24 hr 01/28/24 09:30 11/12/24 09:30 01/28/24 09:36 Temperature 36.8 C Temperature Source Oral Pulse Rate 76 70 Pulse Rate [Apical] Pulse Rate [Left Brachial] Pulse Rhythm Irregular Pulse Rhythm [Left Brachial] Pulse Strength [Left Brachial] Respiratory Rate 30 H Respiratory Effort / Characteristics Short of Breath Short of Breath Respiratory Pattern Rapid/Shallow Blood Pressure - Lying Blood Pressure 133/70 Blood Pressure [Left Arm] Blood Pressure Mean 91 Blood Pressure Mean [Left Arm] Blood Pressure Position Pulse Oximetry 95 Oxygen Delivery Method Nasal Cannula Nasal Cannula Oxygen Flow Rate 4 6 Sepsis Recent Fever Within 48 Hours No Sepsis New/Unexplained Change in Mental Status No Sepsis Action Taken by Nursing No Action Required 01/28/24 10:48 01/28/24 11:39 01/28/24 11:56 Temperature 36.5 C Temperature Source Oral Pulse Rate Pulse Rate [Apical] 85 86 Pulse Rate [Left Brachial] 78 Pulse Rhythm Pulse Rhythm [Left Brachial] Irregular Pulse Strength [Left Brachial] Normal Respiratory Rate 26 H 24 Respiratory Effort / Characteristics Short of Breath Spontaneous Respiratory Pattern Regular Blood Pressure - Lying 123/57 L Blood Pressure Blood Pressure [Left Arm] 135/82 113/66 Blood Pressure Mean Blood Pressure Mean [Left Arm] 99 81 Blood Pressure Position Pulse Oximetry 96 96 Oxygen Delivery Method Nasal Cannula Nasal Cannula Oxygen Flow Rate 6 6 Sepsis Recent Fever Within 48 Hours Sepsis New/Unexplained Change in Mental Status Sepsis Action Taken by Nursing 01/28/24 12:20 01/28/24 12:30 Temperature Temperature Source Pulse Rate 74 70 Pulse Rate [Apical] Pulse Rate [Left Brachial] Pulse Rhythm Pulse Rhythm [Left Brachial] Pulse Strength [Left Brachial] Respiratory Rate Respiratory Effort / Characteristics Respiratory Pattern Blood Pressure - Lying Blood Pressure 109/59 L 104/74 Blood Pressure [Left Arm] Blood Pressure Mean Blood Pressure Mean [Left Arm] Blood Pressure Position Semi-fowlers Semi-fowlers Pulse Oximetry Oxygen Delivery Method Oxygen Flow Rate Sepsis Recent Fever Within 48 Hours Sepsis New/Unexplained Change in Mental Status Sepsis Action Taken by Nursing Laboratory Data 01/28/24 09:57 01/28/24 09:57 Lab Results 01/28/24 01/28/24 01/28/24 Range/Units 09:44 09:53 09:57 WBC 9.09 (4.8-10.8) K/ul RBC 2.65 L (4.70-6.10) M/uL Hgb 7.7 L (14.0-18.0) g/dl POC Hgb 8.8 L (14.0-18.0) g/dl Hct 25.8 L (42.0-52.0) % POC Hct 26 L (42-52) % MCV 97.4 (80.0-100.0) fL MCH 29.1 (25.0-34.0) pg MCHC 29.8 L (32.0-36.0) g/dL RDW Std Deviation 59.4 H (36.4-46.3) fL RDW Coeff of John 17.1 H (11.5-14.5) % Plt Count 140 (130-400) K/uL MPV 10.3 (9.4-12.4) fL Immature Gran % (Auto) 0.7 % Neut % (Auto) 83.2 % Lymph % (Auto) 5.4 % Buchanan % (Auto) 9.6 % Eos % (Auto) 0.9 % Baso % (Auto) 0.2 % Neut # (Auto) 7.57 H (1.40-6.50) K/uL Lymph # (Auto) 0.49 L (1.20-3.40) K/uL Buchanan # (Auto) 0.87 H (0.11-0.59) K/uL Eos # (Auto) 0.08 (0.00-0.50) K/uL Baso # (Auto) 0.02 (0.00-0.20) K/uL Immature Gran # (Auto) 0.06 (0.01-0.20) K/uL Polychromasia 1+ Tear Drop Cells 1+ Ovalocytes 1+ Specimen Type Arterial POC pH 7.33 L (7.35-7.45) POC pCO2 59 H (35-46) mmHg POC pO2 141 H (80-95) mmHg POC HCO3 31 H (19-24) kelly/L POC Total CO2 32 H (24-31) mmol/L POC Base Excess 5.0 H (-9-1.8) kelly/L POC ABG O2 Sat 99.0 H (90-95) % POC Sodium 134 L (135-144) mmol/L Sodium 136 (136-145) mmol/L POC Potassium 3.6 (3.3-5.0) mmol/L Potassium 3.7 (3.5-5.1) mmol/L Chloride 95 L (98-107) mmol/L Carbon Dioxide 31 (21-32) mmol/L Anion Gap 10 (3-11) BUN 43 H (6-23) mg/dl Creatinine 5.77 H* (0.6-1.4) mg/dl Est Cr Clr Drug Dosing Not Reportable eGFR 9.12 BUN/Creatinine Ratio 7.5 L (10-20) Glucose 133 H (70-99(Fasting)) mg/dl Calcium 8.3 L (8.6-10.3) mg/dl Total Bilirubin 0.4 (0.2-1.0) mg/dl AST 15 (13-39) U/L ALT 11 (7-52) U/L Alkaline Phosphatase 51 (34-104) U/L Troponin I High Sens 21.1 H (0-20) pg/ml B-Natriuretic Peptide 1304 H (0-100) pg/ml Total Protein 6.0 (6.0-8.3) gm/dl Albumin 3.5 (3.4-5.0) gm/dl Globulin 2.5 (2.5-4.0) gm/dl Albumin/Globulin Ratio 1.4 (0.9-2) Procalcitonin (0-0.5) ng/ml Adenovirus (PCR) Not Detected (NotDetected) B. pertussis DNA (PCR) Not Detected (NotDetected) B.parapertussis DNA PCR Not Detected (NotDetected) C. pneumoniae DNA (PCR) Not Detected (NotDetected) Coronavirus OC43 (PCR) Not Detected (NotDetected) Coronavirus HKU1 (PCR) Not Detected (NotDetected) Coronavirus 229E (PCR) Not Detected (NotDetected) SARS-CoV-2 (PCR) Not Detected (NotDetected) Coronavirus NL63 (PCR) Not Detected (NotDetected) Human Metapneumovir PCR Not Detected (NotDetected) Influenza Type A (PCR) Not Detected (NotDetected) Influenza Type B (PCR) Not Detected (NotDetected) M. pneumoniae (PCR) Not Detected (NotDetected) Parainfluenza 1 (PCR) Not Detected (NotDetected) Parainfluenza 2 (PCR) Not Detected (NotDetected) Parainfluenza 3 (PCR) Not Detected (NotDetected) Parainfluenza 4 (PCR) Not Detected (NotDetected) RSV (PCR) Not Detected (NotDetected) Entero/Rhino (PCR) Not Detected (NotDetected) 01/28/24 Range/Units 10:04 WBC (4.8-10.8) K/ul RBC (4.70-6.10) M/uL Hgb (14.0-18.0) g/dl POC Hgb (14.0-18.0) g/dl Hct (42.0-52.0) % POC Hct (42-52) % MCV (80.0-100.0) fL MCH (25.0-34.0) pg MCHC (32.0-36.0) g/dL RDW Std Deviation (36.4-46.3) fL RDW Coeff of John (11.5-14.5) % Plt Count (130-400) K/uL MPV (9.4-12.4) fL Immature Gran % (Auto) % Neut % (Auto) % Lymph % (Auto) % Buchanan % (Auto) % Eos % (Auto) % Baso % (Auto) % Neut # (Auto) (1.40-6.50) K/uL Lymph # (Auto) (1.20-3.40) K/uL Buchanan # (Auto) (0.11-0.59) K/uL Eos # (Auto) (0.00-0.50) K/uL Baso # (Auto) (0.00-0.20) K/uL Immature Gran # (Auto) (0.01-0.20) K/uL Polychromasia Tear Drop Cells Ovalocytes Specimen Type POC pH (7.35-7.45) POC pCO2 (35-46) mmHg POC pO2 (80-95) mmHg POC HCO3 (19-24) kelly/L POC Total CO2 (24-31) mmol/L POC Base Excess (-9-1.8) kelly/L POC ABG O2 Sat (90-95) % POC Sodium (135-144) mmol/L Sodium (136-145) mmol/L POC Potassium (3.3-5.0) mmol/L Potassium (3.5-5.1) mmol/L Chloride (98-107) mmol/L Carbon Dioxide (21-32) mmol/L Anion Gap (3-11) BUN (6-23) mg/dl Creatinine (0.6-1.4) mg/dl Est Cr Clr Drug Dosing eGFR BUN/Creatinine Ratio (10-20) Glucose (70-99(Fasting)) mg/dl Calcium (8.6-10.3) mg/dl Total Bilirubin (0.2-1.0) mg/dl AST (13-39) U/L ALT (7-52) U/L Alkaline Phosphatase (34-104) U/L Troponin I High Sens (0-20) pg/ml B-Natriuretic Peptide (0-100) pg/ml Total Protein (6.0-8.3) gm/dl Albumin (3.4-5.0) gm/dl Globulin (2.5-4.0) gm/dl Albumin/Globulin Ratio (0.9-2) Procalcitonin 0.70 H (0-0.5) ng/ml Adenovirus (PCR) (NotDetected) B. pertussis DNA (PCR) (NotDetected) B.parapertussis DNA PCR (NotDetected) C. pneumoniae DNA (PCR) (NotDetected) Coronavirus OC43 (PCR) (NotDetected) Coronavirus HKU1 (PCR) (NotDetected) Coronavirus 229E (PCR) (NotDetected) SARS-CoV-2 (PCR) (NotDetected) Coronavirus NL63 (PCR) (NotDetected) Human Metapneumovir PCR (NotDetected) Influenza Type A (PCR) (NotDetected) Influenza Type B (PCR) (NotDetected) M. pneumoniae (PCR) (NotDetected) Parainfluenza 1 (PCR) (NotDetected) Parainfluenza 2 (PCR) (NotDetected) Parainfluenza 3 (PCR) (NotDetected) Parainfluenza 4 (PCR) (NotDetected) RSV (PCR) (NotDetected) Entero/Rhino (PCR) (NotDetected) Administered Medications Discontinued Medications Albuterol (Albut/Ipratrop 3mg/0.5mg Neb 3 Ml Vial) 12 ml INH ONE STA Stop: 01/28/24 09:38 Last Admin: 01/28/24 09:43 Dose: 12 ml Documented By: HS Azithromycin (Azithromycin 250 Mg Tab) 500 mg PO NOW ONE Stop: 01/28/24 11:29 Last Admin: 01/28/24 11:33 Dose: 500 mg Documented By: NA Furosemide (Furosemide 40 Mg/4 Ml Vial) 40 mg IV ONE ONE Stop: 01/28/24 11:29 Last Admin: 01/28/24 11:33 Dose: 40 mg Documented By: NA Albumin Human (Albumin 25%) 12.5 gm in 50 mls @ 50 mls/hr IV NOW STA Stop: 01/28/24 13:03 Last Admin: 01/28/24 13:23 Dose: 50 mls/hr Documented By: CC Lorazepam (Lorazepam 0.5 Mg Tab) 0.5 mg PO NOW STA Stop: 01/28/24 12:04 Last Admin: 01/28/24 12:17 Dose: 0.5 mg Documented By: JLT Methylprednisolone (Methylprednisolone 125 Mg/2 Ml Vial) 125 mg IV NOW STA Stop: 01/28/24 09:38 Last Admin: 01/28/24 09:43 Dose: 125 mg Documented By: HS Midodrine (Midodrine Hcl 2.5 Mg Tab) 5 mg PO NOW STA Stop: 01/28/24 12:04 Last Admin: 01/28/24 13:23 Dose: 5 mg Documented By: CC Imaging Data Radiologist's Impression: Chest X-Ray 01/28/24 09:37 XR chest 1V portable CLINICAL HISTORY: Dyspnea COMPARISON STUDY: Chest CT November 10, 2023. Chest radiograph January 10, 2024. FINDINGS: There is no pneumothorax or definite pleural effusion. Elevation of the right hemidiaphragm is unchanged. Cardiomegaly is unchanged. There is pulmonary vascular congestion. Left mid and lower lung opacity is present. There is persistent right basilar opacity. IMPRESSION: 1. Cardiomegaly with pulmonary vascular congestion, similar to prior exam. 2. Stable elevation of the right hemidiaphragm. 3. Bilateral lower lung opacities which could reflect pneumonia or atelectasis. ACT 112: Negative or not required by law. Electronically signed by: Jhonatan Restrepo M.D. 01/28/2024 10:54 AM Discharge Plan Visit Data Chief Complaint: Shortness of Breath/Dyspnea Stated Complaint: SHORTNESS OF BREATH ED Provider: Amilcar Mims Discharge Problem: COPD exacerbation, Hypoxia, ESRD on dialysis Discharge Instructions Interventions: ED Discharge Assessment Last Done: 01/28/24 13:42
[2024-01-28] MEDS: methylPREDNISolone 125 MG/2 ML VIAL IV STA (09:43)
[2024-01-28] MEDS: ALBUT/IPRATROP 3MG/0.5MG NEB 3 ML VIAL INH STA (09:43)
[2024-01-28 10:11] LABS: iSTAT Arterial Blood Gas HCO3 31 meg/L (19-24); iSTAT Arterial Blood Gas pCO2 59 mmHg (35-46); iSTAT Arterial Blood Gas pH 7.33 (7.35-7.45); iSTAT Arterial Blood Gas pO2 141 mmHg (80-95); iSTAT Carbon Dioxide 32 mmol/L (24-31); iSTAT Hematocrit 26 % (42-52); iSTAT Hemoglobin 8.8 g/dl (14.0-18.0); iSTAT Potassium 3.6 mmol/L (3.3-5.0); iSTAT Sample Type Arterial; iSTAT Sodium 134 mmol/L (135-144)
[2024-01-28 10:23] LABS: Basophils # (auto) 0.02 K/uL (0.00-0.20); Basophils % (auto) 0.2 %; Eosinophils # (auto) 0.08 K/uL (0.00-0.50); Eosinophils % (auto) 0.9 %; Hematocrit (blood only) 25.8 % (42.0-52.0); Hemoglobin 7.7 g/dl (14.0-18.0); Immature Granulocytes # (auto) 0.06 K/uL (0.01-0.20); Immature Granulocytes % (auto) 0.7 %; Lymphocytes # (auto) 0.49 K/uL (1.20-3.40); Lymphocytes % (auto) 5.4 %; Mean Corpuscular Hemoglobin 29.1 pg (25.0-34.0); Mean Corpuscular Hgb Conc 29.8 g/dL (32.0-36.0); Mean Corpuscular Volume 97.4 fL (80.0-100.0); Mean Platelet Volume 10.3 fL (9.4-12.4); Monocytes # (auto) 0.87 K/uL (0.11-0.59); Monocytes % (auto) 9.6 %; Neutrophils # (auto) 7.57 K/uL (1.40-6.50); Neutrophils % (auto) 83.2 %; Platelet Count 140 K/uL (130-400); RDW Coefficient of Variation 17.1 % (11.5-14.5); RDW Standard Deviation 59.4 fL (36.4-46.3); Red Blood Count 2.65 M/uL (4.70-6.10); White Blood Count 9.09 K/ul (4.8-10.8)
[2024-01-28 10:51] LABS: Alanine Aminotransferase 11 U/L (7-52); Albumin Globulin Ratio 1.4 (0.9-2); Albumin Level 3.5 gm/dl (3.4-5.0); Alkaline Phosphatase 51 U/L (34-104); Anion Gap 10 (3-11); Aspartate Aminotransferase 15 U/L (13-39); BUN Creatinine Ratio 7.5 (10-20); Bilirubin,Total 0.4 mg/dl (0.2-1.0); Blood Urea Nitrogen 43 mg/dl (6-23); Calcium 8.3 mg/dl (8.6-10.3); Carbon Dioxide 31 mmol/L (21-32); Chloride 95 mmol/L (98-107); Globulin 2.5 gm/dl (2.5-4.0); Glucose 133 mg/dl (70-99(Fasting)); Potassium 3.7 mmol/L (3.5-5.1); Sodium 136 mmol/L (136-145); Troponin I High Sensitivity 21.1 pg/ml (0-20)
[2024-01-28 10:56] LABS: Adenovirus PCR Not Detected (NotDetected); Bordetella parapertussis PCR Not Detected (NotDetected); Bordetella pertussis PCR Not Detected (NotDetected); Chlamydia pneumoniae PCR Not Detected (NotDetected); Coronavirus 229E PCR Not Detected (NotDetected); Coronavirus CoV-2 (COVID19)PCR Not Detected (NotDetected); Coronavirus HKU1 PCR Not Detected (NotDetected); Coronavirus NL63 PCR Not Detected (NotDetected); Coronavirus OC43PCR Not Detected (NotDetected); Human Metapneumovirus PCR Not Detected (NotDetected); Influenza A PCR Not Detected (NotDetected); Influenza B PCR Not Detected (NotDetected); Mycoplasma pneumoniae PCR Not Detected (NotDetected); Parainfluenza Virus 1 PCR Not Detected (NotDetected); Parainfluenza Virus 2 PCR Not Detected (NotDetected); Parainfluenza Virus 3 PCR Not Detected (NotDetected); Parainfluenza Virus 4 PCR Not Detected (NotDetected); Respiratory Syncytial VirusPCR Not Detected (NotDetected); Rhinovirus/Enterovirus PCR Not Detected (NotDetected)
--- NOTE | 2024-01-28 10:56 | XRay Report ---
XR chest 1V portable CLINICAL HISTORY: Dyspnea COMPARISON STUDY: Chest CT November 10, 2023. Chest radiograph January 10, 2024. FINDINGS: There is no pneumothorax or definite pleural effusion. Elevation of the right hemidiaphragm is unchanged. Cardiomegaly is unchanged. There is pulmonary vascular congestion. Left mid and lower lung opacity is present. There is persistent right basilar opacity. IMPRESSION: 1. Cardiomegaly with pulmonary vascular congestion, similar to prior exam. 2. Stable elevation of the right hemidiaphragm. 3. Bilateral lower lung opacities which could reflect pneumonia or atelectasis. ACT 112: Negative or not required by law. Electronically signed by: Jhonatan Restrepo M.D. 01/28/2024 10:54 AM
[2024-01-28 11:01] LABS: Ovalocytes 1+; Polychromasia 1+; Tear Drop Cells 1+
[2024-01-28] MEDS: AZITHROMYCIN 250 MG TAB PO ONE (11:33)
[2024-01-28] MEDS: FUROSEMIDE 40 MG/4 ML VIAL IV ONE (11:33)
[2024-01-28] MEDS: LORazepam 0.5 MG TAB PO STA (12:17)
--- NOTE | 2024-01-28 12:52 | History & Physical Report ---
Date of Service January 28, 2024 Assessment & Plan (1) Volume overload: Plan Acute and chronic respiratory failure: Volume overload: Acute exacerbation of COPD Patient presented with hypoxic event noted at 1 hour into hemodialysis. Patient noted to be wheezy and tired per patient's for several days. Admitting CXR with pulmonary vascular congestion And bilateral lower lung opacities pneumonia versus atelectasis. Patient and his denies any increase in cough or sputum production or fever in the last 1 week, hence no concern of pneumonia for now. continue to monitor. Patient received azithromycin in the ED along with Solu-Medrol and DuoNebs. Will continue with Solu-Medrol 40 Mg 3 times daily, DuoNebs, Perforomist and budesonide nebs, doxycycline twice daily for 5 days. Avoid QT prolonging drugs as patient has prolonged QTc. Wean down oxygen as tolerated. patient getting hemodialysis. End-stage renal disease on hemodialysis: ESRD on HD on sat schedule. Getting hemodialysis today. Nephrology on board. H/o Atrial fibrillation/flutter: c/w home eliquis and metoprolol and diltiazem. Coronary artery disease: S/P Stent, stable History of DVT (deep vein thrombosis): On chronic Eliquis Dyslipidemia: On atorvastatin at home Full Code as per my discussion w/ the patient. History of Present Illness Chief Complaint: Hypoxia during HD Primary Care Provider: Jody Arora MD 83-year-old male with PMH of CAD status post stent, ESRD on HD, chronic hypoxemic respiratory failure [4 L oxygen], COPD, HLD, atrial flutter/atrial fibrillation, DVT, on Eliquis, MOLLY, CVA, prediabetes presented to the ED after hypoxic event at dialysis today. Per discussion with ED physician, patient was hypoxic into 80s on 4 L oxygen which is his baseline during dialysis, he got about 1 hour of dialysis and was sent to the ED for further evaluation. In the ED patient needed 6 L oxygen and received multiple DuoNeb treatments and azithromycin, respiratory rate and saturation improved. Patient was seen and examined at bedside, patient was getting hemodialysis, patient had received Ativan and he was lethargic. Patient did answer orientation questions appropriately, reports feeling better, was on 6 L oxygen, reports being in his usual state of health until before dialysis today, denies any recent fever/ sore throat/nausea/vomiting/diarrhea/chest pain/palpitation/belly pain. Reports cough at his baseline. Pt states he doesn't make urine. Called patient's over the phone, she states that patient was feeling tired and wheezy for last several days but no fever or increased cough/sputum or sore throat. Patient's appetite at baseline is poor in general. Full code as per my discussion with the patient. Home Medications Medication Instructions Recorded Confirmed Type venlafaxine 37.5 mg 37.5 mg PO DAILY 02/01/22 01/28/24 History capsule,extended release 24 hr (Effexor XR) nitroglycerin 0.4 mg sublingual 0.4 mg sublingual UD PRN Chest Pain 05/14/23 01/28/24 History tablet (Nitrostat) rosuvastatin 10 mg tablet 10 mg PO QAM 05/14/23 01/28/24 History buspirone 5 mg tablet 5 mg PO AMHS 08/26/23 01/28/24 History glycopyrrolate 9 mcg-formoterol 1 puff inhalation BID 08/26/23 01/28/24 History 4.8 mcg HFA aerosol inhaler (Bevespi Aerosphere) vitamin B complex-vitamin C-folic 1 tab PO 3XWK 08/26/23 01/28/24 History acid 0.8 mg tablet (Izzy-Vianney) apixaban 2.5 mg tablet (Eliquis) 2.5 mg PO BID #60 tabs 08/29/23 01/28/24 Rx ipratropium 0.5 mg-albuterol 3 mg 3 ml NEB Q4 PRN Wheezing 10/31/23 01/28/24 History (2.5 mg base)/3 mL nebulization soln calcium acetate(phosphat bind) 667 1,334 mg PO TIDWMEAL 11/10/23 01/28/24 History mg capsule lorazepam 0.5 mg tablet 0.5 mg PO DIRECTED 11/10/23 01/28/24 History albuterol sulfate 2.5 mg/3 mL 2.5 mg continuous nebulization Q6 12/25/23 01/28/24 History (0.083 %) solution for nebulization PRN Wheezing albuterol sulfate 90 mcg/actuation 2 puff inhalation Q4 PRN Wheezing 12/25/23 01/28/24 History aerosol inhaler guaifenesin 600 mg tablet, 600 mg PO Q12 #60 tabs 12/30/23 01/28/24 Rx extended release 12 hr (Mucinex) midodrine 2.5 mg tablet 2.5 mg PO TID@0800,1200,1700 30 12/30/23 01/28/24 Rx days #90 tabs midodrine 10 mg tablet 10 mg PO 3XWK PRN before dialysis 01/01/24 01/28/24 Rx #30 tabs metoprolol succinate 25 mg 25 mg PO BID 30 days #60 tabs 01/14/24 01/28/24 Rx tablet,extended release 24 hr pantoprazole 40 mg tablet,delayed 40 mg PO QAM 30 days #30 tabs 01/14/24 01/28/24 Rx release Past Med/Surg History Problem List (Updated 01/18/24 @ 00:07 by Delroy Waldrop) Acute blood loss anemia Metabolic encephalopathy Acute on chronic respiratory failure with hypoxemia Uremia Volume overload (Acute) Pneumonia (Acute) GIB (gastrointestinal bleeding) (Acute) Hyperkalemia (Acute) End-stage renal disease (ESRD) (Acute) Acute on chronic respiratory failure with hypoxia and hypercapnia (Acute) History of DVT (deep vein thrombosis) MOLLY (obstructive sleep apnea) Atrial fibrillation/flutter Hypotension GI bleed Acute respiratory acidosis End-stage renal disease on hemodialysis (Acute) Atrial flutter with rapid ventricular response (Acute) Bifascicular bundle branch block AV fistula Hyperkalemia Pressure injury of buttock, stage 1 Atrial flutter with rapid ventricular response Open thigh wound Acute on chronic diastolic HF (heart failure) Hypercarbia (Acute) Acute hyponatremia (Acute) Edema (Acute) Shortness of breath (Acute) New onset atrial fibrillation Acute on chronic respiratory failure with hypoxia and hypercapnia Atrial fibrillation with RVR (Acute) Hypersomnolent Restrictive lung disease Chronic pulmonary aspiration Volume overload (Acute) End-stage renal disease (ESRD) (Acute) COPD with exacerbation (Acute) Dyslipidemia BPH (benign prostatic hyperplasia) Coronary artery disease S/p stent 1998 HTN (hypertension) Chronic hypoxemic respiratory failure (Acute) Anemia of chronic renal failure Hgb 8-9's per record review COPD (chronic obstructive pulmonary disease) Medical History Multifocal pneumonia Left renal mass Pneumonia due to COVID-19 virus Urinary frequency Hx of blood clots "IN MY LEGS AND 1 IN MY LUNGS A LONG TIME AGO">WAS ON BLOOD THINNERS, CAUSED BY PHLEBITIS History of COVID-19 02/02/22>STILL HAS FATIGUE Adjustment disorder with mixed disturbance of emotions and conduct History of basal cell carcinoma Carotid stenosis, right 50-69% stenosis to right ICA; <50% stenosis to left ICA per 06/22/21 carotid duplex History of stroke 2017 OR 2018 >NO RESIDUAL History of [place] (myocardial infarction) 1998 MOLLY and COPD overlap syndrome WEARS 4L O2 AT HS Prediabetes PT DENIES Renal osteodystrophy Papillary renal cell carcinoma WITH MALIGNANCY>NO TREATMENT YET (CURRENT DX) Surgical History History of anesthesia reaction SLOW TO WAKE UP History of arthroscopy LEFT KNEE History of colonoscopy History of tooth extraction History of tonsillectomy History of cataract surgery RT/LEFT History of cholecystectomy History of appendectomy History of heart artery stent 1998>? # STENTS PLACED IN [facility] (FOLLWED BY DR. JACK SOUSA CARDIOLOGY) Family History Other Colorectal cancer No family history of adverse response to anesthesia Social History Smoking Status: Unknown if ever smoked Second Hand Exposure: No; Do You Dip or Chew Tobacco: No; Hx Alcohol Use: No Hx Substance Use: No Preferred Language: Turkmen Communication Ability: Effective Communication Tools: Other Supervisor Remelt Required: No Beliefs That Will Affect Care: None Current Living Situation: Spouse Feels Safe at Home: Yes Assistive Devices: Cane, Oxygen - Continuous and Walker Review of Systems Review of Systems: Negative otherwise mentioned in HPI. Physical Exam Physical Exam: GENERAL: lethargic, on 6L NC O2, getting HD HEENT: No pallor, no icterus. Pupils equal, round and reactive to light. Oral mucosa moist. NECK: No JVD, no neck masses. HEART: S1 and S2 heard. Regular rate and rhythm. No murmur, no gallop. RESPIRATORY SYSTEM: Normal AP diameter. No accessory muscle use. b/l rhonchi and bb crackles. ABDOMEN: Soft, bowel sounds present, nontender, no distention. CENTRAL NERVOUS SYSTEM: No facial droop. Speech is clear. Obeys simple commands. Moves extremities. EXTREMITIES: 1-2+ ble edema, no erythema seen. Results & Data Results & Data Vital Signs (Past 12 Hours) Vital Signs Temp Pulse Pulse Resp BP BP Pulse Ox 01/28/24 11:39 86 24 113/66 96 01/28/24 10:48 85 26 H 135/82 96 01/28/24 09:36 70 01/28/24 09:30 36.8 C 76 30 H 133/70 95 01/28/24 09:30 O2 Del Method O2 Flow Rate 01/28/24 11:39 Nasal Cannula 6 01/28/24 10:48 Nasal Cannula 6 01/28/24 09:36 01/28/24 09:30 Nasal Cannula 6 01/28/24 09:30 Nasal Cannula 4 Code Status & VTE Plan VTE Prophylaxis Plan VTE Prophylaxis will be ordered: Yes (1) Volume overload Hypervolemia type: other Qualified Code(s): E87.79 - Other fluid overload
[2024-01-28] MEDS ORDERED: MIDODRINE HCL 10 MG TAB PO PRN (13:08)
[2024-01-28] MEDS: MIDODRINE HCL 2.5 MG TAB PO STA (13:23)
[2024-01-28] MEDS: ALBUMIN 25% 12.5 GM/50 ML VIAL IV STA (13:23)
[2024-01-28] MEDS ORDERED: POLYETHYLENE (MIRALAX) 17 GM PACK PO PRN (13:41)
[2024-01-28] MEDS ORDERED: ONDANSETRON INJ 2 MG/ML 2 ML VIAL IV PRN (13:41)
[2024-01-28] MEDS ORDERED: methylPREDNISolone 125 MG/2 ML VIAL IV SCH (14:00)
--- NOTE | 2024-01-28 14:24 | Nephrology Consultation ---
Date of Consultation January 28, 2024 Assessment & Plan (1) ESRD on dialysis: Complicated Dialysis patient with Severe Life threatening vol overload with resp failure and hypoxia and hypercapnia. . High danger of needing mechanical ventilation. he gets low BP which makes it very difficult to taske fluid off with dialysis without causing Hypotensive Crisis. will give midodrine and also 25% albumin to help with fluid removal.Planning for 4 kilo in 4 hrs today. electrolytes are acceptable but volume overload is dangerous. he is also very confused and trying to remove needle from his avf. Had to give him Ativan to calm him down a bit. also doing physical restraint to avoid needle pulling Will do dialysis tomorrow again and take more fluid off as allowed by his BP. prognosis is very poor as this is second admission with Same issues. (2) Acute on chronic respiratory failure with hypoxemia: Sec to Severe Fluid overload. with his extensive cardiac and pulm problems very Dangerous and high risk for fatal complications. Will try aggressive fluid removal next few days. may have to revisit issue about level of care/Code status and even Palliative consult. (3) Volume overload: See above Plan Case complexity high. time spent 61 mins both before admission/ care coordination with outpt as well as ED and Dialysis nurse and Hospitalist. emergent dialysis arranged History of Present Illness Reason for Consultation: ESRD with vol Overload/CHF and Hypotension Attending Physician: Deysi Casey MD History of Present Illness 83/M with ESRD on HD --TTS in [facility] through [facility]. has issues with Vol overload but not able to get enough fluid because of Low BP and not tolerating. Also has CAD status post stent, chronic hypoxemic respiratory failure [4 L oxygen], COPD, HLD, atrial flutter/atrial fibrillation, DVT, on Eliquis, MOLLY, CVA presented to the ED after Hypotensive and hypoxic event at dialysis earlier today. He got about 1 hour of dialysis and was sent to the ED for further evaluation because of low BP/Low o2 and looking very sick. In the ED patient needed 6 L oxygen and received multiple DuoNeb treatments and azithromycin, respiratory rate and saturation improved. patient is restless and unable to give any history to me. eyes closed. CXR and exam shows vol overload. he was recently admitted for same issues with massive fluid overload and needed aggressive Dialysis many days in a row. Was also on mechanical ventillator. Called patient's over the phone, she states that patient was feeling tired and wheezy for last several days but no fever or increased cough/sputum or sore throat. Patient's appetite at baseline is poor in general. ROS---Unable to obtain sec to Confusion and eyes closed. did not answer questions. Physical Exam Physical Exam: GENERAL: restless and confused. eyes closed. did not answer. on 6L NC O2, getting HD NECK: No JVD, no neck masses. HEART: S1 and S2 heard. Regular rate and rhythm. No murmur, no gallop. RESPIRATORY SYSTEM: b/l rhonchi and basal crackles. ABDOMEN: Soft, bowel sounds present, nontender, no distention. EXTREMITIES: 2+ ble edema with some erythema seen. Home Medications Medication Instructions Recorded Confirmed Type venlafaxine 37.5 mg 37.5 mg PO DAILY 02/01/22 01/28/24 History capsule,extended release 24 hr (Effexor XR) nitroglycerin 0.4 mg sublingual 0.4 mg sublingual UD PRN Chest Pain 05/14/23 01/28/24 History tablet (Nitrostat) rosuvastatin 10 mg tablet 10 mg PO QAM 05/14/23 01/28/24 History buspirone 5 mg tablet 5 mg PO AMHS 08/26/23 01/28/24 History glycopyrrolate 9 mcg-formoterol 1 puff inhalation BID 08/26/23 01/28/24 History 4.8 mcg HFA aerosol inhaler (Bevespi Aerosphere) vitamin B complex-vitamin C-folic 1 tab PO 3XWK 08/26/23 01/28/24 History acid 0.8 mg tablet (Izzy-Vianney) apixaban 2.5 mg tablet (Eliquis) 2.5 mg PO BID #60 tabs 08/29/23 01/28/24 Rx ipratropium 0.5 mg-albuterol 3 mg 3 ml NEB Q4 PRN Wheezing 10/31/23 01/28/24 History (2.5 mg base)/3 mL nebulization soln calcium acetate(phosphat bind) 667 1,334 mg PO TIDWMEAL 11/10/23 01/28/24 History mg capsule lorazepam 0.5 mg tablet 0.5 mg PO DIRECTED 11/10/23 01/28/24 History albuterol sulfate 2.5 mg/3 mL 2.5 mg continuous nebulization Q6 12/25/23 01/28/24 History (0.083 %) solution for nebulization PRN Wheezing albuterol sulfate 90 mcg/actuation 2 puff inhalation Q4 PRN Wheezing 12/25/23 01/28/24 History aerosol inhaler guaifenesin 600 mg tablet, 600 mg PO Q12 #60 tabs 12/30/23 01/28/24 Rx extended release 12 hr (Mucinex) midodrine 2.5 mg tablet 2.5 mg PO TID@0800,1200,1700 30 12/30/23 01/28/24 Rx days #90 tabs midodrine 10 mg tablet 10 mg PO 3XWK PRN before dialysis 01/01/24 01/28/24 Rx #30 tabs metoprolol succinate 25 mg 25 mg PO BID 30 days #60 tabs 01/14/24 01/28/24 Rx tablet,extended release 24 hr pantoprazole 40 mg tablet,delayed 40 mg PO QAM 30 days #30 tabs 01/14/24 01/28/24 Rx release Patient History Medical History Multifocal pneumonia Left renal mass Pneumonia due to COVID-19 virus Urinary frequency Hx of blood clots "IN MY LEGS AND 1 IN MY LUNGS A LONG TIME AGO">WAS ON BLOOD THINNERS, CAUSED BY PHLEBITIS History of COVID-19 02/02/22>STILL HAS FATIGUE Adjustment disorder with mixed disturbance of emotions and conduct History of basal cell carcinoma Carotid stenosis, right 50-69% stenosis to right ICA; <50% stenosis to left ICA per 06/22/21 carotid duplex History of stroke 2017 OR 2018 >NO RESIDUAL History of [place] (myocardial infarction) 1998 MOLLY and COPD overlap syndrome WEARS 4L O2 AT HS Prediabetes PT DENIES Renal osteodystrophy Papillary renal cell carcinoma WITH MALIGNANCY>NO TREATMENT YET (CURRENT DX) Surgical History History of anesthesia reaction SLOW TO WAKE UP History of arthroscopy LEFT KNEE History of colonoscopy History of tooth extraction History of tonsillectomy History of cataract surgery RT/LEFT History of cholecystectomy History of appendectomy History of heart artery stent 1998>? # STENTS PLACED IN [facility] (FOLLWED BY DR. JACK SOUSA C[facility]IOLOGY) Family History Other Colorectal cancer No family history of adverse response to anesthesia Social History Smoking Status: Unknown if ever smoked Second Hand Exposure: No; Do You Dip or Chew Tobacco: No; Hx Alcohol Use: No Hx Substance Use: No Preferred Language: Spanish Communication Ability: Effective Communication Tools: Other Deck Mechanic Required: No Beliefs That Will Affect Care: None Current Living Situation: Spouse Feels Safe at Home: Yes Assistive Devices: Cane, Oxygen - Continuous and Walker Results & Data Vital Signs (Past 12 Hours) Vital Signs Temp Pulse Pulse Pulse Resp BP BP 01/28/24 13:30 85 113/70 01/28/24 13:00 77 163/82 H 01/28/24 12:30 70 104/74 01/28/24 12:20 74 109/59 L 01/28/24 11:56 36.5 C 78 01/28/24 11:39 86 24 113/66 01/28/24 10:48 85 26 H 135/82 01/28/24 09:36 70 01/28/24 09:30 36.8 C 76 30 H 133/70 01/28/24 09:30 Pulse Ox O2 Del Method O2 Flow Rate 01/28/24 13:30 01/28/24 13:00 01/28/24 12:30 01/28/24 12:20 01/28/24 11:56 01/28/24 11:39 96 Nasal Cannula 6 01/28/24 10:48 96 Nasal Cannula 6 01/28/24 09:36 01/28/24 09:30 95 Nasal Cannula 6 01/28/24 09:30 Nasal Cannula 4 Laboratory Results hgb 7.7 na 134 K normal. renal panel reviewed. Diagnostic Findings CXR--CHF (3) Volume overload Hypervolemia type: other Qualified Code(s): E87.79 - Other fluid overload
[2024-01-28] MEDS ORDERED: LORazepam 0.5 MG TAB PO PRN (14:54)
[2024-01-28] MEDS: FORMOTEROL 20 MCG/2 ML VIAL NEB SCH ×2 (15:23→20:00)
[2024-01-28] MEDS: BUDESONIDE 0.5 MG/2 ML VIAL (PULMICORT) NEB SCH (15:24)
[2024-01-28] MEDS: Patient's ALLERGY Info needs ENTERED SCH (15:42)
--- OUTSIDE RECORDS SUMMARY | 2024-01-28 16:48 | External Medical Summary | Summary of Care ---
Author Name Unknown Organization [facility] Address [address] [place] [address] Phone [phone] Care Team Providers Care Examination Proctor Name Role Phone Jody Arora MD Primary Care Provide r Reason for Visit * Reason Onset Date Comments Other 01/23/2024 Homecare order Encounter Details Date Type Department Care Team (Late st Contact Info) Description 01/23/2024 Telephone Hematology/Oncology, [address] [address] Brielle Schmidt MD [address] [place] [address] Other (Homecare order) Allergies No known active allergiesdocumented as of this encounter (statuses as of 01/27/2024) Medications nitroglycerin (NITROSTAT) 0.[address] 1 Tablet under the tongue every 5 minutes as needed for Pain, Chest. 9 Active Ipratropium-Albute rol 0.5-2.5 (3) MG/3ML Inhalation Solution (Duoneb)Indication s:Chronic hypoxemic respiratory failure (HCC),COPD, group C, by GOLD 2017 classification ([facility]) Inhale 3 mL via nebulizer every 4 hours as needed for Wheezing. 120 mL 1 3 Active Menthol-Zinc Oxide 0.44-20.6 % External Ointment (Calmoseptine)Grace cations:Tinea cruris Apply to sore skin twice a day. 71 g 2 3 Active oxygen IN GAS Use 4 [...] for Wheezing. 18 g 2 4 Active Renal Vitamin 0.8 MG Oral [...] meals. Take 1 with snack. 4 Active Metoprolol Tartrate 25 MG Oral [...] THE MORNING 90 Tablet 1 4 Active busPIRone HCl 5 MG Oral Tablet (Buspar)Indication s:Anxiety Take 1 Tablet by mouth in the morning and 1 Tablet before bedtime. 60 Tablet 5 4 Active LORazepam 0.5 MG Oral Tablet (Ativan)Indication s:Anxiety,ESRD on dialysis (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 TAKE 1 CAPSULE BY MOUTH ONCE DAILY DO NOT CHEW, CRUSH, OR CUT 90 Capsule 3 4 Active Hospital, Clinic, or Other Facility Administered Medication Ordered Dose Route Frequency Start Date End Date Status Albuterol Sulfate (Proventil) (5 MG/ML) 0.5% *conc* inhalation solution 2.5 mgIndications:Chronic hypoxemic respiratory failure (HCC),COPD, group C, by GOLD 2017 classification (HCC),Citrus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) 2.5 mg NEBULIZER PRN 04/24/2023 04/23/2024 Active Albuterol Sulfate (Proventil) (2.5 MG/3ML) 0.083% inhalation solution 2.5 mgIndications:Chronic hypoxemic respiratory failure (HCC),COPD, group C, by GOLD 2017 classification (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 Overview (01/01/2022): Of the L kidney BPH without obstruction/lower urinary tract symp toms 12/07/2021 Right sided weakness 12/07/2021 Kidney disease, chronic, stage IV (GFR 15-29 ml/ min) 07/26/2020 Overview: Per CKD protocol Hx of nonmelanoma skin cancer 04/06/2019 Overview (04/06/2019): squamous cell carcinoma (L mandible 05/2013), Tess (L malar cheek 03/2014), basal cell carcinoma (R cheek, R anterior neck 02/27, R medial lower cheek 06/2017), multiple nonmelanoma skin cancers, actinic keratoses (Efudex 05/26, 11/2013, 03/2019) AK (actinic keratosis) 04/06/2019 Overview (04/06/2019): Actinic keratoses (Efudex 05/26, 11/2013, 03/2019) Renal osteodystrophy 03/31/2019 C7 radiculopathy 12/22/2018 Overview (12/22/2018): Right Lumbosacral radiculopathy at L5 12/22/2018 Overview (12/22/2018): 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 Benign hypertension with chronic kidney disease, stage IV 02/12/2018 Chronic hypoxemic respiratory failure 01/17/2018 Adjustment disorder with mix ed disturbance of emotions and conduct 01/16/2018 Paroxysmal nocturnal dyspnea 01/16/2018 Obesity, Class I, BMI 30.0-34.9 (see actual BMI) 01/16/2018 Not immune to hepatitis B virus 01/08/2018 Anemia of chronic renal failure, stage 4 (severe ) 10/29/2017 Overview (07/14/2018): Per CKD protocol #[address] Shankar Left renal mass 07/11/2017 Overview (01/12/2021): 2018 biopsy at [facility]/[place] per patient "kidney cancer". States he was advised he was not a surgical candidate. Carotid stenosis, right 07/11/2017 History of stroke 07/11/2017 Overview (02/12/2018): TIA vs lacunar stroke diagnosed on head CT in [place] Apr 2017. Follow up MRI [facility] no infarct. Anxiety 07/11/2017 HTN, goal below 140/90 08/02/2015 Coronary artery disease Dyslipidemia, goal LDL below 100 documented as of this encounter (statuses as of 01/27/2024) Resolved Problems Problem Noted Date Diagnosed Date Resolved Date COPD, group C, by GOLD 2017 classification 11/27/2021 05/02/2023 Overview: Per COPD GOLD Classification Prediabetes 09/26/2020 03/01/2022 Overview: Per Prediabetes protocol Meningioma 03/31/2019 12/07/2021 Severe obesity with body mas s index (BMI) of 35.0 to 39.9 with serious comorbidity 12/29/2018 Aneurysm of aorta 12/02/2018 11/01/2022 Overview (02/21/2022): 3.3 cm AAA noted on renal us 12/27/21 Right hemiplegia 11/26/2018 12/07/2021 Senile calcific aortic valve sclerosis 11/26/2018 12/07/2021 COPD, severe 08/05/2018 11/30/2021 Overview: Per COPD GOLD Classification Benign hypertension with chr onic kidney disease, stage IV 07/23/2018 08/27/2018 Pneumonia of right middle lo be due to infectious organism 01/16/2018 04/14/2018 Nonrheumatic aortic valve stenosis 01/15/2018 12/07/2021 Overview (01/15/2018): Echo 01/02. Dr Zaragoza. Non-rheumatic mitral valve stenosis 01/15/2018 12/07/2021 Overview (01/15/2018): Echo 12/2017. Dr Zaragoza. Anemia of chronic renal fail ure, stage 3 (moderate) 07/11/2017 11/02/2017 Overview: Per CKD protocol #1 - Basal cell carcinoma (BCC) of skin of face 07/11/2017 07/14/2018 Hyperkalemia 07/11/2017 12/07/2021 CKD (chronic kidney disease) stage 3, GFR 30-59 ml/min 01/28/2015 08/08/2017 documented as of this encounter (statuses as of 01/27/2024) Immunizations Name Administration Dates Next Due COVID-19 mRNA, LNP-s, No Pre serve, 2-Dose Series (Moderna) 01/10/2021,05/24/2020,04/26/2020 COVID-19, MRNA-LNP, PF, 50 M CG/0.5 mL, 12 YRS AND ABOVE, IM (MODERNA-Spikevax) [...] Recorded Sex Assigned at Not on file Legal Sex Male 7:25 AM EST Gender Identity Not on file Sexual Orientation Not on file documented as of this encounter Miscellaneous Notes * Telephone Encounter - Jody Arora MD - 01/27/2024 8:02 AM EST Noted and thank you * Telephone Encounter - Mary Londono RN - 01/24/2024 4:09 PM EST We did receive a fax from [facility] at home They are notifying us that patient will be seen for SOC on 01/27/24. Form placed on Jody Arora MD for review. Per other telephone encounter patient had called and spoke to Nephrology and patient was counseled to go to the ER of symptoms are worsening. * Telephone Encounter - Lady Reddy LPN - 01/23/2024 3:35 PM EST He is in the service area for [facility] -- faxed all info there * Telephone Encounter - Jeri Reyes PA-C - 01/23/2024 3:20 PM EST Maybe [facility]? * Telephone Encounter - Bella Oliva OSA - 01/23/2024 3:02 PM EST Chantel from [facility] Home Health is calling about the referral, they do not service the area where he resides FYI * Telephone Encounter - Lady Reddy LPN - 01/23/2024 2:44 PM EST Faxed last OV, referral, snapshot, insurance cards to [facility]. documented in this encounter Plan of Treatment Upcoming Encounters Date Type Department Care Team (Late st Contact Info) Description 02/03/2024 10:30 AM EST Imaging Radiology [address] [place] [address] 02/10/2024 1:00 PM EST Imaging Radiology [facility] 1st [facility] 132 [facility] [place] [address] 02/19/2024 3:30 PM EST Telemedicine Palliative Medicine [facility] [address] [place] [address] Brielle Schmidt MD 400 [facility] [place] [address] 02/25/2024 4:00 PM EST Office Visit Urology, [facility] [address] [facility] [place] [address] [place] Romeo MD [address] [place] [address] [place] [address] 02/26/2024 1:40 PM EST Office Visit [address] [address] Jody Arora MD [address] [place] [address] [place] [address] 05/11/2024 10:30 AM EST Office Visit Cardiology, [facility] 132 [facility] [place] [address] Augustin Mathis, 132 [facility] [place] [address] Health Maintenance Due Date Last Done Comments [...] Completed 11/26/2023, 10/29/2023, 09/24/2023, Additional history exists Influenza Vaccine (FLU shot) Completed , 01/23/2023, 12/07/2021, Additional history exists HPV (Gardasil) Vaccine Aged Out No lo nger eligible based on patient's age to complete this topic MENINGOCOCCAL (MENACTRA/MENVEO) Aged Out No longer eligible based on patient's age to complete this topic documented as of this encounter Medical Devices Not on filedocumented as of this encounter Care Teams Examination Proctor Relationship Specialty Start Date End Date Jody Arora MD [address] [place] [address] [place] [id number] PCP - General Family Medicine 11/21/21 documented as of this encounter
--- OUTSIDE RECORDS SUMMARY | 2024-01-28 16:48 | External Medical Summary | Summary of Care ---
Author Name Unknown Organization [facility] Address [address] [place] [address] Phone [phone] Care Team Providers Care Legal Office Administrator Name Role Phone Jody Arora MD Primary Care Provide r Reason for Visit * Reason Onset Date Comments Other 01/24/2024 Encounter Details Date Type Department Care Team (Late st Contact Info) Description 01/24/[address] [place] [phone] Services, Scheduling [address] [place] [address] Other Allergies No known active allergiesdocumented as of this encounter (statuses as of 01/24/2024) Medications nitroglycerin (NITROSTAT) 0.[address] [...] :COPD, group C, by GOLD 2017 classification ([facility]) INHALE 1 DOSE BY MOUTH IN THE MORNING AND 1 AT BEDTIME 60 Each 4 Active Ventolin HFA 108 (90 Base) MCG/ACT Inhalation Aerosol SolutionIndication s:COPD, group D, by GOLD 2017 classification ([facility] [...] MG Oral Tablet (Ativan)Indication s:Anxiety,ESRD on dialysis ([facility]) 1 tablet 15-20 minutes before dialysis sessions 30 Tablet 4 Active Venlafaxine HCl ER 37.5 MG Oral Capsule Extended Release 24 Hour (Effexor XR)Indications: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 TAKE 1 CAPSULE BY MOUTH ONCE DAILY DO NOT CHEW, CRUSH, OR CUT 90 Capsule 3 Active Hospital, Clinic, or Other Facility Administered Medication Ordered Dose Route Frequency Start Date End Date Status Albuterol Sulfate (Proventil) (5 MG/ML) 0.5% *conc* inhalation solution 2.5 mgIndications:Chronic hypoxemic respiratory failure (HCC),COPD, group C, by GOLD 2017 classification (HCC),Barn[place]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) 2.5 mg NEBULIZER PRN 04/24/2023 04/23/2024 Active Albuterol Sulfate (Proventil) (2.5 MG/3ML) 0.083% inhalation solution 2.5 mgIndications:Chronic hypoxemic respiratory failure (HCC),COPD, group C, by GOLD 2017 classification (HCC),[place]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) 2.5 mg NEBULIZER PRN 04/24/2023 04/23/2024 Active documented as of this encounter (statuses as of 01/24/2024) Active Problems Problem Noted Date Diagnosed Date COPD, group D, by GOLD 2017 classification 04/29 Overview: Per COPD GOLD Classification Barn[place] miners' pneumoconiosis 04/24/2023 Papillary renal cell carcinoma [...] mass 07/11/2017 Overview (01/12/2021): 2018 biopsy at [facility]/[place] per patient "kidney cancer". States he was advised he was not a surgical candidate. Carotid stenosis, right 07/11/2017 History of stroke 07/11/2017 Overview (02/12/2018): TIA vs lacunar stroke diagnosed on head CT in [place] Apr 2017. Follow up MRI [facility] no infarct. Anxiety 07/11/2017 HTN, goal below 140/90 08/02/2015 Coronary artery disease Dyslipidemia, goal LDL below 100 documented as of this encounter (statuses as of 01/24/2024) Resolved Problems Problem Noted Date Diagnosed Date [...] as of this encounter (statuses as of 01/24/2024) Immunizations Name Administration Dates Next Due COVID-19 [...] No 05/20/2023 Does the household have a [facility] source of income? (Household - [...] Telephone Encounter - Gabby Sosa RN - 01/24/2024 4:03 PM EST TE with pt. HE verbalizes that he feels that he needs more fluid removed at the dialysis center because his legs are swollen. I advised pt to go to ER if symptoms are worsening and he can't wait until treatment tomorrow. He states,I dont want to do that. * Telephone Encounter - Sujata Arce OSA - 01/24/2024 3:44 PM EST Good afternoon, Pt on the line, with a question about his lungs. Please give him a call at [phone] Thank you documented in this encounter Plan of Treatment Upcoming Encounters Date Type Department Care Team (Late st Contact Info) Description 02/03/2024 10:30 AM EST Imaging Radiology [address] [place] [address] 02/10/2024 1:00 PM EST Imaging Radiology [facility] 1st [facility] 132 [facility] [place] [address] 02/19/2024 3:00 PM EST Telemedicine Palliative Medicine [facility] [address] [place] [phone] Brielle Schmidt MD 400 [facility] [place] [address] 02/25/2024 4:00 PM EST Office Visit Urology, [facility] 132 [facility] [place] [address] [place] Romeo MD [address] [place] [address] [place] [address] 02/26/2024 1:40 PM EST Office Visit Family Medicine [address] [phone] Jody Arora MD [address] [place] [address] [place] [address] 05/11/2024 10:30 AM EST Office Visit Cardiology, [facility] 132 [facility] [place] [address] Augustin Mathis, DO [address] [place] [address] Health Maintenance Due Date Last Done Comments Alpha-1 Antitrypsin 1958 Adult Wellness Visit 2006 *COPD SEVERITY VERIFIED BY PFT 07/16/2020 COVID-19 Vaccine ( season) 2023 01/03/2023, 01/10/2021, 05/24/2020, Additional history exists GFR 02/27/2024 08/28/2023, 09/2023, [...] filedocumented as of this encounter Care Teams Legal Office Administrator Relationship Specialty Start Date End Date Jody Arora MD [address] [place] [address] [place] [phone] PCP - General Family Medicine 11/21/21 documented as of this encounter
--- OUTSIDE RECORDS SUMMARY | 2024-01-28 16:48 | External Medical Summary | Summary of Care ---
Author Name Unknown Organization [facility] Address [address] [place] [address] Phone [phone] Care Team Providers Care [employer] Name Role Phone Jody Arora MD Primary Care Provide r Reason for Visit * Reason Onset Date Comments Other 01/23/2024 Homecare order Encounter Details Date Type Department Care Team (Late st Contact Info) Description 01/23/2024 Telephone Hematology/Oncology, [address] [address] Brielle Schmidt MD [address] [place] [address] Other (Homecare order) Allergies No known active allergiesdocumented as of this encounter (statuses as of 01/24/2024) Medications nitroglycerin (NITROSTAT) 0.[address] 1 Tablet under the tongue every 5 minutes as needed for Pain, Chest. 9 Active Ipratropium-Albute rol 0.5-2.5 (3) MG/3ML Inhalation Solution (Duoneb)Indication s:Chronic hypoxemic respiratory failure (HCC),COPD, group C, by GOLD 2017 classification ([facility]) Inhale 3 mL via nebulizer every [...] :COPD, group C, by GOLD 2017 classification ([facility]) INHALE 1 DOSE BY MOUTH IN THE MORNING AND 1 AT BEDTIME 60 Each 4 Active Ventolin HFA 108 (90 Base) MCG/ACT Inhalation Aerosol SolutionIndication s:COPD, group D, by GOLD 2017 classification ([facility]) Inhale 2 Puffs by mouth every [...] MG Oral Tablet (Ativan)Indication s:Anxiety,ESRD on dialysis ([facility]) 1 tablet 15-20 minutes before dialysis [...] (HCC),COPD, group C, by GOLD 2017 classification (HCC),Stevens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) 2.5 mg NEBULIZER PRN 04/24/2023 04/23/2024 Active Albuterol Sulfate (Proventil) (2.5 MG/3ML) 0.083% inhalation solution 2.5 mgIndications:Chronic hypoxemic respiratory failure (HCC),COPD, group C, by GOLD 2017 classification (HCC),Stevens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) 2.5 mg NEBULIZER PRN 04/24/2023 04/23/2024 Active documented as of this encounter (statuses as of 01/24/2024) Active Problems Problem Noted Date Diagnosed Date COPD, group D, by GOLD 2017 classification 04/29 Overview: Per COPD GOLD Classification Stevens miners' pneumoconiosis 04/24/2023 Papillary renal cell carcinoma [...] mass 07/11/2017 Overview (01/12/2021): 2018 biopsy at [facility]/[place] per patient "kidney cancer". States he was advised he was not a surgical candidate. Carotid stenosis, right 07/11/2017 History of stroke 07/11/2017 Overview (02/12/2018): TIA vs lacunar stroke diagnosed on head CT in [place] Apr 2017. Follow [facility] MRI [facility] [...] Miscellaneous Notes * Telephone Encounter - Mary Londono RN - 01/24/2024 4:09 PM EST We did receive a fax from [facility] at home They are notifying us that [...] He is in the service area for [facility] -- faxed all info there * Telephone Encounter - Jeri Reyes PA-C - 01/23/2024 3:20 PM EST Maybe [facility]? * Telephone Encounter - Bella Oliva OSA - 01/23/2024 3:02 PM EST Chantel from [facility] Home Health is calling about the referral, they do not service the area where he resides FYI * Telephone Encounter - Lady Reddy LPN - 01/23/2024 2:44 PM EST Faxed last OV, referral, snapshot, insurance cards to [facility]. documented in this encounter Plan of Treatment Upcoming Encounters Date Type Department Care Team (Late st Contact Info) Description 02/03/2024 10:30 AM EST Imaging Radiology [address] [place] [address] 02/10/2024 1:00 PM EST Imaging Radiology [facility] 1st [facility] [address] [place] [address] 02/19/2024 3:00 PM EST Telemedicine Palliative Medicine [facility] [address] [place] [address] Brielle Schmidt MD 400 [facility] [place] [address] 02/25/2024 4:00 PM EST Office Visit Urology, [facility] 132 [facility] [place] [address] [place] Romeo MD 27 [facility] [place] [address] 02/26/2024 1:40 PM EST Office Visit Family Medicine [address] [phone] Jody Arora MD [address] [place], [place] [address] [address] 05/11/2024 10:30 AM EST Office Visit Cardiology, [facility] 132 [facility] [place] [address] Augustin Mathis, 132 [facility] [place] [address] Health Maintenance Due Date Last Done Comments [...] filedocumented as of this encounter Care Teams [employer] Relationship Specialty Start Date End Date Jody Arora MD [address] [place] [address] [place] [phone] PCP - General Family Medicine 11/21/21 documented as of this encounter
--- OUTSIDE RECORDS SUMMARY | 2024-01-28 16:48 | External Medical Summary | Summary of Care ---
Author Name Unknown Organization [facility] Address [address] [place] [address] Phone [phone] Care Team Providers Care Signing Agent Name Role Phone Jody Arora MD Primary Care Provide r Reason for Visit * Reason Onset Date Comments Other 01/24/2024 Encounter Details Date Type Department Care Team (Late st Contact Info) Description 01/24/20[address] [place] [phone] Services, Scheduling [address] [place] [address] Other Allergies No known active allergiesdocumented as [...] Active Menthol-Zinc Oxide 0.44-20.6 % External Ointment (Calmoseptine)Graec cations:Tinea cruris Apply to sore skin twice a day. 71 g 2 3 Active oxygen IN GAS Use 4 L/min(Oxygen) as directed. Uses "in the evening" Active Fluticasone-Salmet aleida 250-50 MCG/ACT Inhalation Aerosol Powder Breath Activated (Advair Diskus)Indications :COPD, group C, by GOLD 2017 classification ([facility]) INHALE 1 DOSE BY MOUTH IN THE MORNING AND 1 AT BEDTIME 60 Each 4 Active Ventolin HFA 108 (90 Base) MCG/ACT Inhalation Aerosol SolutionIndication s:COPD, group D, by GOLD 2017 classification ([facility]) Inhale 2 Puffs by [...] MG Oral Tablet (Ativan)Indication s:Anxiety,ESRD on dialysis ([facility]) 1 tablet 15-20 minutes before dialysis sessions [...] (HCC),COPD, group C, by GOLD 2017 classification (HCC),[place]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) 2.5 mg NEBULIZER PRN 04/24/2023 04/23/2024 Active Albuterol Sulfate (Proventil) (2.5 MG/3ML) 0.083% inhalation solution 2.5 mgIndications:Chronic hypoxemic respiratory failure (HCC),COPD, group C, by GOLD 2017 classification (HCC),[place]iberty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) 2.5 mg NEBULIZER PRN 04/24/2023 04/23/2024 Active documented as of this encounter (statuses as of 01/24/2024) Active Problems Problem Noted Date Diagnosed Date COPD, group D, by GOLD 2017 classification 04/29 Overview: Per COPD GOLD Classification [place] miners' pneumoconiosis 04/24/2023 Papillary renal cell carcinoma [...] mass 07/11/2017 Overview (01/12/2021): 2018 biopsy at [facility]/[place] per patient "kidney cancer". States he was advised he was not a surgical candidate. Carotid stenosis, right 07/11/2017 History of stroke 07/11/2017 Overview (02/12/2018): TIA vs lacunar stroke diagnosed on head CT in [place] Apr 2017. Follow up MRI [place] [...] No 05/20/2023 Does the household have a [facility] source [facility] income? (Household - for [...] encounter Miscellaneous Notes * Telephone Encounter - Sujata Arce OSA - 01/24/2024 3:44 PM EST Good afternoon, Pt on the line, with a question about his lungs. Please give him a call at [phone] Thank you documented in this encounter Plan of Treatment Upcoming Encounters Date Type Department Care Team (Late st Contact Info) Description 02/03/2024 10:30 AM EST Imaging Radiology [address] [place] [address] 02/10/2024 1:00 PM EST Imaging Radiology [facility]st [facility] 132 [facility] [place] [address] 02/19/2024 3:00 PM EST Telemedicine Palliative Medicine [facility] 200 [place] [phone] Brielle Schmidt MD 400 [facility] [place] [address] 02/25/2024 4:00 PM EST Office Visit Urology, [facility] 132 [facility] [place] [address] [place] Romeo MD [address] [place] [address] [place] [address] 02/26/2024 1:40 PM EST Office Visit Family Medicine [address] [place] [address] Jody Arora MD [address] [place] [address] [place] [address] 05/11/2024 10:30 AM EST Office Visit Cardiology, [facility] 132 [facility] [place] [address] Augustin Mathis DO [address] [place] [address] Health Maintenance Due Date Last Done Comments [...] filedocumented as of this encounter Care Teams Signing Agent Relationship Specialty Start Date End Date Jody Arora MD [address] [place] [address] [place] [phone] PCP - General Family Medicine 11/21/21 documented as of this encounter
--- OUTSIDE RECORDS SUMMARY | 2024-01-28 16:49 | External Medical Summary | Summary of Care ---
Author Name Unknown Organization [facility] Address [address] [place] [address] Phone [phone] Care Team Providers Care Home Hospice Aide Name Role Phone Jody Arora MD Primary Care Provide r Reason for Visit * Reason Onset Date Comments Advice 01/22/2024 Encounter Details Date Type Department Care Team (Late st Contact Info) Description 01/22/2024 Telephone Family [address] [place] [address] Jody Arora MD [address] [place] [address] [place] [address] Advice Allergies No known active allergiesdocumented as of this encounter (statuses as of 01/23/2024) Medications Medication Sig Dispensed Refills Start Date [...] for Wheezing. 120 mL 1 10/17/2022 Active Menthol-Zinc Oxide 0.44-20.6 % External Ointment (Calmoseptine)Indic ations:Tinea cruris Apply to sore skin twice a day. 71 g 2 01/24/2023 Active oxygen IN GAS Use 4 L/min(Oxygen) [...] :COPD, group D, by GOLD 2017 classification ([facility]) Inhale 2 Puffs by mouth every 4 hours as needed for Wheezing. 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 120 Tablet 5 07/05/2023 01/22/20 24 Discontinued Hospital, Clinic, or Other Facility Administered Medication Ordered Dose Route Frequency Start Date End Date Status Albuterol Sulfate (Proventil) (5 MG/ML) 0.5% *conc* inhalation solution 2.5 mgIndications:Chronic hypoxemic respiratory failure (HCC),COPD, group C, by GOLD 2017 classification ([facility]),[place]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) 2.5 mg NEBULIZER PRN 04/24/2023 04/23/2024 Active Albuterol Sulfate (Proventil) (2.5 MG/3ML) 0.083% inhalation solution 2.5 mgIndications:Chronic hypoxemic respiratory failure (HCC),COPD, group C, by GOLD 2017 classification ([facility]),[place]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) 2.5 mg NEBULIZER PRN 04/24/2023 04/23/2024 Active documented as of this encounter (statuses as of 01/23/2024) Active Problems Problem Noted Date Diagnosed Date COPD, group D, by GOLD 2017 classification 04/29 Overview: Per COPD GOLD Classification [place] 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/[place] per patient "kidney cancer". States he was advised he was not a surgical candidate. Carotid stenosis, right 07/11/2017 History of stroke 07/11/2017 Overview: TIA vs lacunar stroke diagnosed on head CT in [place] Apr 2017. Follow up MRI [facility] no infarct. Anxiety 07/11/2017 HTN, goal below 140/90 08/02/2015 Coronary artery disease Dyslipidemia, goal LDL below 100 documented as of this encounter (statuses as of 01/23/2024) Resolved Problems Problem Noted Date Diagnosed Date [...] as of this encounter (statuses as of 01/23/2024) Immunizations Name Administration Dates Next Due COVID-19 [...] Telephone Encounter - Elisa Mcmahon CMA - 01/23/2024 2:46 PM EST Faxed note from TE. * Telephone Encounter - Jody Arora MD - 01/23/2024 2:37 PM EST I agree Due to COPD and CHF pt would benefit from head elevation (at least 30 degree) * Telephone Encounter - Ana Resendiz OSA - 01/23/2024 9:49 AM EST Caller requesting the following information to be faxed: Name/Company of caller: [facility] Information requested to be faxed: office notes Fax number: [phone] Attention to Name/Company: [employer] Any additional information?: needs to state that pt needs head elevated due to COPD * Telephone Encounter - Elisa Mcmahon CMA - 01/22/2024 5:04 PM EST Faxed. * Telephone Encounter - Elisa Mcmahon CMA - 01/22/2024 4:55 PM EST Patient wants the order sent to [facility]. Will send once note from palliative is done. He hasn't been seen here for a while and it will help with insurance coverage. * Telephone Encounter - Jody Arora MD - 01/22/2024 2:35 PM EST Pt has been having worsening ambulatory dysfunction - therefore would benefit from hospital bed - order palced documented in this encounter Plan of Treatment Upcoming Encounters Date Type Department Care Team (Late st Contact Info) Description 02/03/2024 10:30 AM EST Imaging Radiology [address] [place] [address] 02/10/2024 1:00 PM EST Imaging Radiology [facility] [address] [facility] [place] [address] 02/25/2024 4:00 PM EST Office Visit Urology, [facility] [address] [facility] [place] [address] Cameron Romeo MD [address] [place] [address] 02/26/2024 1:40 PM EST Office Visit Family [address] [place] [phone] Jody Arora MD [address] [place] [address] [place] [address] 05/11/2024 10:30 AM EST Office Visit Cardiology, [facility] [address] [facility] [place] [address] Augustin Mathis, [address] [place] [address] Health Maintenance Due Date Last Done Comments [...] as of this encounter Visit Diagnoses Diagnosis Ambulatory dysfunction- Primary ESRD on dialysis (HCC) End stage renal disease ESRD (end stage renal disease) (HCC) End stage renal disease documented in this encounter Care Teams Home Hospice Aide Relationship Specialty Start Date End Date Jody Arora MD [address] [place] [address] [place] [phone] PCP - General Family Medicine 11/21/21 documented as of this encounter
--- OUTSIDE RECORDS SUMMARY | 2024-01-28 16:49 | External Medical Summary | Summary of Care ---
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 Ketty Comments Documentation of [id number] Encounter Addendum Patient Name: Justin Pinedo I certify that this patient is under my care and that I, or a nurse practitioner or physician's geriatric nurse assistant working with me, had a [id number] encounter that meets the physician wfod-fs-zshu encounter requirements with this patient on: 01/22/2024 The encounter with the patient was in whole, or in part, for the following medical condition, which is the primary reason for home health care (List medical condition): Cardiorenal syndrome, CKD 5 Medication management Nursing, Physical Therapy, and OT, AND bath aide I certify that, based on my findings, the following services are medically necessary home health services: Nursing, Physical Therapy, and OT, AND bath aide To provide the following care/treatments: (All hospitalists not following the patient after discharge should complete this section): Gait assessment/ ADL assessment/ med management, monitor BP, bath aide Primary Care Physician to follow home care plan of care after discharge: Jody Arora MD My clinical findings support the need for the above services because: pt has significantly declined in last few months, multiple hospital stays, wants to eventually go on hospcie Further, I certify that my clinical findings support that this patient is homebound (i.e. Absences from home require considerable and taxing effort and are for medical reasons or sabianist services or infrequently or of short duration when for other reason) because: He cannot walk without assistance, is not leaving house, is on 4L constantly Physician Signature: Date of Signature: Physician Printed Name: Brielle Schmidt MD Encounter Details Date Type Department Care Team (Late st Contact Info) Description 01/22/2024 4:00 PM EST Telemedicine Palliative Medicine [facility] [address] [place] [address] Brielle Schmidt MD [address] [place] [address] [place] [address] Frailty*; Palliative care encounter; Cardiorenal syndrome with renal failure, 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, with heart failure (HCC); Chronic hypoxic respiratory failure (HCC) Allergies No known active [...] C, by GOLD 2017 classification ([facility]) Inhale 3 mL via nebulizer every 4 [...] C, by GOLD 2017 classification ([facility]) INHALE 1 DOSE BY MOUTH IN THE MORNING AND 1 AT BEDTIME 60 Each 05/28/2023 Active Ventolin HFA 108 (90 Base) MCG/ACT Inhalation Aerosol SolutionIndications :COPD, group D, by GOLD 2017 classification ([facility]) Inhale 2 Puffs by mouth every 4 [...] Tablet (Demadex)Indication s:ESRD needing dialysis ([facility]) Take 4 Tablets by mouth 2 times a day in the morning and at noon. 120 Tablet 5 07/05/2023 01/22/20 24 Discontinued Hospital, Clinic, or Other Facility Administered Medication Ordered Dose Route Frequency Start Date End Date Status Albuterol Sulfate (Proventil) (5 MG/ML) 0.5% *conc* inhalation solution 2.5 mgIndications:Chronic hypoxemic respiratory failure (HCC),COPD, group C, by GOLD 2017 classification ([facility]),[place]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) 2.5 mg NEBULIZER PRN 04/24/2023 04/23/2024 Active Albuterol Sulfate (Proventil) (2.5 MG/3ML) 0.083% inhalation solution 2.5 mgIndications:Chronic hypoxemic respiratory failure (HCC),COPD, group C, by GOLD 2017 classification ([facility]),[place]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) 2.5 mg NEBULIZER PRN 04/24/2023 04/23/2024 Active documented as of this encounter (statuses as of 01/23/2024) Active Problems Problem Noted Date Diagnosed Date COPD, group D, by GOLD 2017 classification 04/29 Overview: Per COPD GOLD Classification [place] miners' pneumoconiosis 04/24/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 Follow up MRI [facility] [...] as of this encounter Progress Notes * Eli Ambrose OSA - 01/23/2024 4:54 PM EST I was able to schedule it @ 3 but sent a message to Sasha to change the time to 330 on this date since I was unable to sched him at 330. * Brielle Schmidt MD - 01/22/2024 4:00 PM EST Palliative Medicine Outpatient Progress Note IN HOME TELEMEDICINE VISIT [facility], Pending Sale To [facility] [address] [place] [address] Name: Justin Pinedo Date: 01/22/2024 I was in a hospital or clinic location. After connecting through televideo, patient was verified with two unique identifiers. 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 Methods to assure confidentiality were taken. Patient acknowledged consent and understanding of privacy and security of the Telemedicine visit. The patient agreed to participate. HPI: Justin Pinedo is a 83 year old male with chronic hypoxic respiratory failure, as well as ESRD, on dialysis, COPD seen in follow-up for goals of care and symptom management. At last visit, we talked about his goals, he did not feel ready for hospice at the time, particularly because he was stillon dialysis. His daughter recently reached out and explained he has been doing a bit worse so f/u visit was arranged. Saw pt and daughter, he overall is doing OK. Hoping to make it through the holidays. Is essentiallydealing with cardiorenal syndrome, his BP is so low but and drops even more during dialysis so thencannot be adequately dialyzed. Is still open to going to the hospital for treatment, but is a DNR/DNI. care home, would like to behome, not go to a facility. Palliative symptoms: Pain: none Nausea/Vomiting: no Appetite: poor overall but likes candy, chocolate, ice cream Constipation: no Confusion: no Sleep issues: not sleeping well, then has to also stay up to watch him Dyspnea: yes, wearing 4L constantly Mood issues: depressed/anxious at times, not sure if Buspar helps Falls: YES - multiple falls - at dialysis and when home. 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 Examination: No vital signs as this is a telemedicine encounter Constitutional: no acute distress, chronically ill HENT: normocephalic, atraumatic. Eyes: anicteric, sclera and conjunctiva normal. Neck: no stridor Chest: normal respiratory effort Abdominal: nondistended Extremities: no edema Data Review: External notes reviewed: - Reviewed notes from Dr Gooden, Cardiology on 12/24, pt was admitted for a fib with RVR, heart failure exacerbation. His o2 sats then were 86% in the office and he was transferred to [facility] again Information obtained from daughter Damaris for collateral history Discussion with other team members: I discussed patient with Dr Bonner Decision-making Capacity: Does Patient have Decisional Capacity? y Does Patient have a Healthcare Agent? Y, family Advanced Care Planning (see ACP Tab): AD in EMR: no POLST in EMR: no ASSESSMENT/PLAN: Justin Pinedo is a 83 year old male seen in follow-up for goals of care and pain and symptom management. Cardiorenal syndrome with ESRD, on dialysis Wants to continue dialysis for now. Wishes he could get it at [facility] since they are able to give pressors and take more fluid off, sometimes upto 9L, while he gets 1L at dialysis Not a candidate for home hemodialysis Frailty Significant functional decline since our last visit. Will get PT/OT/Nursing/Bath aide to come assess and help him in the home. Hopefully this can be with [facility] HH/Palliative to transition to hospice easily in thef uture. Pt is definitely homebound, struggles to leave the house without any aid, has stopped driving PCP put in hospital bed order Depression / high pill burden Recommend stopping Buspar (and Crestor as I am not sure if its that valuable at this time) [facility] Nephrology about adding mirtazapine 7.5mg qHS Goals of care Wants to be home and be comfortable but is willing to go into the hospital for tx if it would help Code status if admitted: DNR but ok for dialysis, pressors, etc Follow up in 4 weeks. They are able to do video visits. Next visit with me. I spent a total of 45 minutes on the date of service in preparation, delivery, and documentation ofthe care provided to Justin Pinedo excluding any time spent in the performance of separately billed services. MD [facility] [place] [facility] [phone] documented in this encounter Plan of Treatment Upcoming Encounters Date Type Department Care Team (Late st Contact Info) Description 02/03/2024 10:30 AM EST Imaging Radiology [address] [place] [address] 02/10/2024 1:00 PM EST Imaging Radiology [address] [facility] [place] [address] 02/19/2024 3:00 PM EST Telemedicine Palliative Medicine [facility] [address] [place] [address] Brielle Shcmidt MD [address] [place] [address] [place] [address] 02/25/2024 4:00 PM EST Office Visit Urology, [facility] [address] [facility] [place] [address] Cameron Romeo MD [address] [place] [address] [place] [address] 02/26/2024 1:40 PM EST Office Visit Family Medicine [address] [place] [phone] Jody Arora MD [address] [place] [address] [place] [address] 05/11/2024 10:30 AM EST Office Visit Cardiology, [facility] [address] [place] [address] Augustin Mathis DO [address] [place] [address] Scheduled Referrals Name Type Priority Associated Diagnoses Orde r Schedule HOME HEALTH REFERRAL OP Referral Within 10 days (routine) Frailty Cardiorenal syndrome with renal failure, 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, with heart failure (HCC) Ordered: 01/22/2024 Health Maintenance Due Date Last Done Comments [...] as of this encounter Visit Diagnoses Diagnosis Frailty- Primary Senility without mention of psychosis Palliative care encounter Encounter for palliative care Cardiorenal syndrome with renal failure, 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
--- OUTSIDE RECORDS SUMMARY | 2024-01-28 16:49 | External Medical Summary | Summary of Care ---
Author Name Unknown Organization [facility] Address [address] [place] [address] Phone [phone] Care Team Providers Care Hygiene Coordinator Name Role Phone Jody Arora MD Primary Care Provide r Reason for Visit * Reason Onset Date Comments Other 01/23/2024 Homecare order Encounter Details Date Type Department Care Team (Late st Contact Info) Description 01/23/2024 Telephone Hematology/Oncology, [address] [address] Brielle Schmidt MD [address] [place] [address] Other (Homecare order) Allergies No known active allergiesdocumented as of this encounter (statuses as of 01/23/2024) Medications Medication Sig Dispensed Refills Start Date End Date Status nitroglycerin (NITROSTAT) 0.[address] 1 Tablet under the tongue every 5 minutes as needed for Pain, Chest. 08/19/2018 Active Ipratropium-Albuterol 0.5-2.5 (3) MG/3ML Inhalation Solution (Duoneb)Indications:C hronic hypoxemic respiratory failure (HCC),COPD, group C, by GOLD 2017 classification ([facility]) Inhale 3 mL via nebulizer every 4 hours as needed for Wheezing. 120 mL 1 10/17/2022 Active Menthol-Zinc Oxide 0.44-20.6 % External Ointment (Calmoseptine)Indicat ions:Tinea cruris Apply to sore skin twice a day. 71 g 2 01/24/2023 Active oxygen IN GAS Use 4 L/min(Oxygen) as directed. Uses "in the evening" Active Fluticasone-Salmetero l 250-50 MCG/ACT Inhalation Aerosol Powder Breath Activated (Advair Diskus)Indications:CO PD, group C, by GOLD 2017 classification ([facility]) INHALE 1 DOSE BY MOUTH IN THE MORNING AND 1 AT BEDTIME 60 Each 05/28/2023 Active Ventolin HFA 108 (90 Base) MCG/ACT Inhalation Aerosol SolutionIndications:C OPD, group D, by GOLD 2017 classification ([facility], [...] and 1 Tablet before bedtime. 60 Tablet 10/03/2023 Active Rosuvastatin Calcium 10 MG Oral Tablet (Crestor) TAKE 1 TABLET BY MOUTH IN THE MORNING 90 Tablet 1 10/14/2023 Active busPIRone HCl 5 MG Oral Tablet (Buspar)Indications:A nxiety Take 1 Tablet by mouth in the morning and 1 Tablet before bedtime. 60 Tablet 5 11/11/2023 Active LORazepam 0.5 MG Oral Tablet (Ativan)Indications:A nxiety,ESRD on dialysis (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 TAKE 1 CAPSULE BY MOUTH ONCE DAILY DO NOT CHEW, CRUSH, OR CUT 90 Capsule 3 01/21/2024 Active Hospital, Clinic, or Other Facility Administered Medication Ordered Dose Route Frequency Start Date End Date Status Albuterol Sulfate (Proventil) (5 MG/ML) 0.5% *conc* inhalation solution 2.5 mgIndications:Chronic hypoxemic respiratory failure (HCC),COPD, group C, by GOLD 2017 classification (HCC),[place]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) 2.5 mg NEBULIZER PRN 04/24/2023 04/23/2024 Active Albuterol Sulfate (Proventil) (2.5 MG/3ML) 0.083% inhalation solution 2.5 mgIndications:Chronic hypoxemic respiratory failure (HCC),COPD, group C, by GOLD 2017 classification (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 States he was advised he was not a surgical candidate. Carotid stenosis, right 07/11/2017 History of stroke 07/11/2017 Overview: TIA vs lacunar stroke diagnosed on head CT in [place] Apr 2017. Follow up MRI [facility] [...] No 05/20/2023 Does the household have a [facility] source of income? (Household - for ages [...] encounter Miscellaneous Notes * Telephone Encounter - Bella Oliva OSA - 01/23/2024 3:02 PM EST Chantel from [facility] Home Health is calling about the referral, they do not service the area where he resides FYI * Telephone Encounter - Lady Reddy LPN - 01/23/2024 2:44 PM EST Faxed last OV, referral, snapshot, insurance cards to [facility]. documented in this encounter Plan of Treatment Upcoming Encounters Date Type Department Care Team (Late st Contact Info) Description 02/03/2024 10:30 AM EST Imaging Radiology [address] [place] [address] 02/10/2024 1:00 PM EST [facility] [address] [facility] [place] [address] 02/25/2024 4:00 PM EST Office Visit Urology, [facility] [address] [facility] [place] [address] Cameron Romeo MD [address] [place] [address] 02/26/2024 1:40 PM EST Office Visit Family Medicine [address] [place] [address] Jody Arora MD [address] [place] [address] [place] [address] 05/11/2024 10:30 AM EST Office Visit Cardiology, [facility] [address] [facility] [place] [address] Augustin Mathis, [address] [place] [address] Health Maintenance Due Date Last Done Comments [...] filedocumented as of this encounter Care Teams Hygiene Coordinator Relationship Specialty Start Date End Date Jody Arora MD [address] [place] [address] [place] [address] PCP - General Family Medicine 11/21/21 documented as of this encounter
--- OUTSIDE RECORDS SUMMARY | 2024-01-28 16:49 | External Medical Summary | Summary of Care ---
Author Name Unknown Organization [facility] Address [address] [place] [address] Phone [phone] Care Team Providers Care Special Crimes Investigator Name Role Phone Jody Arora MD Primary Care Provide r Reason for Visit * Reason Onset Date Comments Other 01/23/2024 Homecare order Encounter Details Date Type Department Care Team (Late st Contact Info) Description 01/23/2024 Telephone Hematology/Oncology, [address] [address] Brielle Schmidt MD [address] [place] [address] Other (Homecare order) Allergies No [...] PD, group C, by GOLD 2017 classification ([facility]) INHALE 1 DOSE BY MOUTH IN THE MORNING AND 1 AT BEDTIME 60 Each 05/28/2023 Active Ventolin HFA 108 (90 Base) MCG/ACT Inhalation Aerosol SolutionIndications:C OPD, group D, by GOLD 2017 classification ([facility] [...] MG Oral Tablet (Ativan)Indications:A nxiety,ESRD on dialysis ([facility]) 1 tablet 15-20 minutes before dialysis sessions [...] (HCC),COPD, group C, by GOLD 2017 classification (HCC),[place]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) 2.5 mg NEBULIZER PRN 04/24/2023 04/23/2024 Active Albuterol Sulfate (Proventil) (2.5 MG/3ML) 0.083% inhalation solution 2.5 mgIndications:Chronic hypoxemic respiratory failure (HCC),COPD, group C, by GOLD 2017 classification ([facility]),[place]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) 2.5 mg NEBULIZER PRN 04/24/2023 04/23/2024 Active documented as of this encounter (statuses as of 01/23/2024) Active Problems Problem Noted Date Diagnosed Date COPD, group D, by GOLD 2017 classification 04/29 Overview: Per COPD GOLD Classification [place]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 States he was advised he was not a surgical candidate. Carotid stenosis, right 07/11/2017 History of stroke 07/11/2017 Overview: TIA vs lacunar stroke diagnosed on head CT in [place] Apr 2017. Follow up MRI [facility] no infarct. Anxiety 07/11/2017 HTN, goal [...] No 05/20/2023 Does the household have a [facility] source of income? (Household - for [...] encounter Miscellaneous Notes * Telephone Encounter - Lady Reddy LPN - 01/23/2024 2:44 PM EST Faxed last OV, referral, snapshot, insurance cards to [facility]. documented in this encounter Plan of Treatment Upcoming Encounters Date Type Department Care Team (Late st Contact Info) Description 02/03/2024 10:30 AM EST Imaging Radiology [address] [place] [id number] 02/10/2024 1:00 PM EST Imaging Radiology [place] [address] [address] [place] [address] 02/25/2024 4:00 PM EST Office Visit Urology, [facility] [address] [place] [address] Cameron Romeo MD [address] [place] [address] 02/26/2024 1:40 PM EST Office Visit Family Medicine [address] [place] [phone] Jody Arora MD [address] [place] [address] [place] [address] 05/11/2024 10:30 AM EST Office Visit Cardiology, [facility] [address] [place] [address] Augustin Mathis, [address] [place] [address] Health Maintenance Due Date Last Done Comments [...] filedocumented as of this encounter Care Teams Special Crimes Investigator Relationship Specialty Start Date End Date Jody Arora MD [address] [place] [address] [place] [phone] PCP - General Family Medicine 11/21/21 documented as of this encounter
--- OUTSIDE RECORDS SUMMARY | 2024-01-28 16:49 | External Medical Summary | Summary of Care ---
Author Name Unknown Organization [facility] Address [address] [place] [address] Phone [phone] Care Team Providers Care Regional Director Name Role Phone Jody Arora MD Primary Care Provide r Reason for Visit * Reason Onset Date Comments Other 01/23/2024 Homecare order Encounter Details Date Type Department Care Team (Late st Contact Info) Description 01/23/2024 Telephone Hematology/Oncology, [address] [address] Brielle Schmidt MD [address] [place] [address] Other (Homecare order) Allergies No [...] PD, group C, by GOLD 2017 classification ([facility]) INHALE 1 DOSE BY MOUTH IN THE MORNING AND 1 AT BEDTIME 60 Each 05/28/2023 Active Ventolin HFA 108 (90 Base) MCG/ACT Inhalation Aerosol SolutionIndications:C OPD, group D, by GOLD 2017 classification ([facility] [...] MG Oral Tablet (Ativan)Indications:A nxiety,ESRD on dialysis ([facility]) 1 tablet 15-20 minutes [...] (HCC),COPD, group C, by GOLD 2017 classification (HCC),[place]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) 2.5 mg NEBULIZER PRN 04/24/2023 04/23/2024 Active Albuterol Sulfate (Proventil) (2.5 MG/3ML) 0.083% inhalation solution 2.5 mgIndications:Chronic hypoxemic respiratory failure (HCC),COPD, group C, by GOLD 2017 classification ([facility]),[place]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) 2.5 mg NEBULIZER PRN 04/24/2023 04/23/2024 Active documented as of this encounter (statuses as of 01/23/2024) Active Problems Problem Noted Date Diagnosed Date COPD, group D, by GOLD 2017 classification 04/29 Overview: Per COPD GOLD Classification [place] 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 States he was advised he was not a surgical candidate. Carotid stenosis, right 07/11/2017 History of stroke 07/11/2017 Overview: TIA vs lacunar stroke diagnosed on head CT in [place] Apr 2017. Follow up MRI [facility] [...] No 05/20/2023 Does the household have a [facility] source of income? (Household - for [...] He is in the service area for [facility] -- faxed all info there * Telephone Encounter - Jeri Reyes PA-C - 01/23/2024 3:20 PM EST Maybe [facility]? * Telephone Encounter - Bella Oliva OSA - 01/23/2024 3:02 PM EST Chantel from [facility] Home Health is calling about [...] Description 02/03/2024 10:30 AM EST Imaging Radiology [address] [place] [address] 02/10/2024 1:00 PM EST Imaging Radiology [facility] 132 [facility] [place] [address] 02/25/2024 4:00 PM EST Office Visit Urology, [address] [place] [address] Cameron Romeo MD [address] [facility] [place] [address] 02/26/2024 1:40 PM EST Office Visit Family Medicine [address] [place] [address] Jody Arora MD [address] [place] [address] [place] [address] 05/11/2024 10:30 AM EST Office Visit Cardiology, [facility] 132 [facility] [place] [address] Augustin Mathis, [address] [place] [address] Health Maintenance Due Date Last Done Comments [...] filedocumented as of this encounter Care Teams Regional Director Relationship Specialty Start Date End Date Sellathurai, Thiviyanath, MD [address] [place] [address] [place] [address] PCP - General Family Medicine 11/21/21 documented as of this encounter
--- OUTSIDE RECORDS SUMMARY | 2024-01-28 16:49 | External Medical Summary | Summary of Care ---
Author Name Unknown Organization [facility] Address [address] [place] [address] Phone [phone] Care Team Providers Care Winch Operator Name Role Phone Jody Arora MD Primary Care Provide r Reason for Visit * Reason Onset Date Comments Other 01/23/2024 Homecare order Encounter Details Date Type Department Care Team (Late st Contact Info) Description 01/23/2024 Telephone Hematology/Oncology, [address] [address] Brielle Schmidt MD [address] [place] [address] Other (Homecare order) Allergies No [...] PD, group C, by GOLD 2017 classification ([facility]) INHALE 1 DOSE BY MOUTH IN THE MORNING AND 1 AT BEDTIME 60 Each 05/28/2023 Active Ventolin HFA 108 (90 Base) MCG/ACT Inhalation Aerosol SolutionIndications:C OPD, group D, by GOLD 2017 classification ([facility] [...] MG Oral Tablet (Ativan)Indications:A nxiety,ESRD on dialysis ([facility]) 1 tablet 15-20 minutes before [...] (HCC),COPD, group C, by GOLD 2017 classification (HCC),[place]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) 2.5 mg NEBULIZER PRN 04/24/2023 04/23/2024 Active Albuterol Sulfate (Proventil) (2.5 MG/3ML) 0.083% inhalation solution 2.5 mgIndications:Chronic hypoxemic respiratory failure (HCC),COPD, group C, by GOLD 2017 classification (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/[place] per patient "kidney cancer". States he was advised he was not a surgical candidate. Carotid stenosis, right 07/11/2017 History of stroke 07/11/2017 Overview: TIA vs lacunar stroke diagnosed on head CT in [place] Apr 2017. Follow up MRI [facility] no infarct. Anxiety 07/11/2017 HTN, [...] No 05/20/2023 Does the household have a [facility] source of income? (Household - for ages [...] encounter Miscellaneous Notes * Telephone Encounter - Jeri Reyes PA-C - 01/23/2024 3:20 PM EST Maybe [facility]? * Telephone Encounter - Bella Oliva OSA - 01/23/2024 3:02 PM EST Chantel from [facility] Home Health is calling about the referral, they do not service the area where he resides FYI * Telephone Encounter - Lady Reddy LPN - 01/23/2024 2:44 PM EST Faxed last OV, referral, snapshot, insurance cards to [facility]. documented in this encounter Plan of Treatment Upcoming Encounters Date Type Department Care Team (Late st Contact Info) Description 02/03/2024 10:30 AM EST Imaging Radiology [address] [place] [address] 02/10/2024 1:00 PM EST Imaging Radiology [facility] 132 [facility] [place] [address] 02/25/2024 4:00 PM EST Office Visit Urology, [facility] 132 [facility] [place] [address] Cameron Romeo MD [address] [place] [address] 02/26/2024 1:40 PM EST Office Visit Family Medicine [address] [place] [phone] Jody Arora MD [address] [place] [address] [place] [address] 05/11/2024 10:30 AM EST Office Visit Cardiology, [facility] 132 [facility] [place] [address] Augustin Mathis DO [address] [place] [address] Health Maintenance Due Date Last Done Comments [...] filedocumented as of this encounter Care Teams Winch Operator Relationship Specialty Start Date End Date Jody Arora MD [address] [place] [address] [place] [address] PCP - General Family Medicine 11/21/21 documented as of this encounter
--- OUTSIDE RECORDS SUMMARY | 2024-01-28 16:50 | External Medical Summary | Summary of Care ---
Author Name Unknown Organization [facility] Address [address] [facility] [place] [address] Phone [phone] Care Team Providers Care Managing Consultant Clinical Professor Name Role Phone Jody Arora MD Primary Care Provide r Reason for Visit * Reason Onset Date Comments Advice 01/22/2024 Encounter Details Date Type Department Care Team (Late st Contact Info) Description 01/22/2024 Telephone Family [address] [place] [address] Jody Arora MD [address] [place] [address] [place] [address] Advice Allergies No known [...] COPD, group C, by GOLD 2017 classification ([facility]) INHALE 1 DOSE BY MOUTH IN THE MORNING AND 1 AT BEDTIME 60 Each 05/28/2023 Active Ventolin HFA 108 (90 Base) MCG/ACT Inhalation Aerosol SolutionIndications :COPD, group D, by GOLD 2017 classification ([facility]) Inhale 2 Puffs by mouth every 4 [...] MG Oral Tablet (Ativan)Indications :Anxiety,ESRD on dialysis ([facility]) 1 tablet 15-20 minutes before dialysis sessions [...] by GOLD 2017 classification ([facility]),[place]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) 2.5 mg NEBULIZER PRN 04/24/2023 04/23/2024 Active Albuterol Sulfate (Proventil) (2.5 MG/3ML) 0.083% inhalation solution 2.5 mgIndications:Chronic hypoxemic respiratory failure (HCC),COPD, group C, by GOLD 2017 classification ([facility]),[place]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) 2.5 mg NEBULIZER PRN 04/24/2023 04/23/2024 Active documented as of this encounter (statuses as of 01/23/2024) Active Problems Problem Noted Date Diagnosed Date COPD, group D, by GOLD 2017 classification 04/29 Overview: Per COPD GOLD Classification [place] 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 States he was advised he was not a surgical candidate. Carotid stenosis, right 07/11/2017 History of stroke 07/11/2017 Overview: TIA vs lacunar stroke diagnosed on head CT in [place] Apr 2017. Follow up MRI [facility] [...] encounter Miscellaneous Notes * Telephone Encounter - Ana Resendiz OSA - 01/23/2024 9:49 AM EST Caller requesting the following information to be faxed: Name/Company of caller: [facility] Information requested to be faxed: office notes Fax number: [phone] Attention to Name/Company: [employer] Any additional information?: needs to state that pt needs head elevated due to COPD * Telephone Encounter - Elisa Mcmahon CMA - 01/22/2024 5:04 PM EST Faxed. * Telephone Encounter - Elisa Mcmahon CMA - 01/22/2024 4:55 PM EST Patient wants the order sent to [facility]. Will send once note from palliative is [...] Description 02/03/2024 10:30 AM EST Imaging Radiology [address] [place] [address] 02/10/2024 1:00 PM EST Imaging Radiology [facility] 1st [facility] [address] [facility] [place] [address] 02/25/2024 4:00 PM EST Office Visit Urology, [facility] [address] [facility] [place] [address] Cameron Romeo MD [address] [place] [address] 02/26/2024 1:40 PM EST Office Visit Family Medicine [address] [place] [phone] Jody Arora MD [address] [place] [address] [place] [address] 05/11/2024 10:30 AM EST Office Visit Cardiology, [facility] [address] [place] [address] Augustin Mathis, [address] [place] [address] Health Maintenance Due Date Last Done Comments [...] disease documented in this encounter Care Teams Managing Consultant Clinical Professor Relationship Specialty Start Date End Date Jody Arora MD [address] [place] [address] [place] [address] PCP - General Family Medicine 11/21/21 documented as of this encounter
--- OUTSIDE RECORDS SUMMARY | 2024-01-28 16:50 | External Medical Summary | Summary of Care ---
Author Name Unknown Organization [facility] Address [address] [place] [facility] [place] [place] [place] [address] Phone [phone] Care Team Providers Care Food Service Representative Name Role Phone Jody Arora MD Primary Care Provide r Reason for Visit * Reason Onset Date Comments Advice 01/22/2024 Encounter Details Date Type Department Care Team (Late st Contact Info) Description 01/22/2024 Telephone Family [address] [place] [address] Jody Arora MD [address] [place] [address] [place] [address] Advice Allergies No known active allergiesdocumented as of this encounter (statuses as of 01/22/2024) Medications Medication Sig Dispensed Refills Start Date [...] COPD, group C, by GOLD 2017 classification ([facility]) INHALE 1 DOSE BY MOUTH IN THE MORNING AND 1 AT BEDTIME 60 Each 05/28/2023 Active Ventolin HFA 108 (90 Base) MCG/ACT Inhalation Aerosol SolutionIndications :COPD, group D, by GOLD 2017 classification ([facility] [...] MG Oral Tablet (Ativan)Indications :Anxiety,ESRD on dialysis ([facility]) 1 tablet 15-20 minutes before [...] C, by GOLD 2017 classification ([facility]),[place]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) 2.5 mg NEBULIZER PRN 04/24/2023 04/23/2024 Active Albuterol Sulfate (Proventil) (2.5 MG/3ML) 0.083% inhalation solution 2.5 mgIndications:Chronic hypoxemic respiratory failure (HCC),COPD, group C, by GOLD 2017 classification ([facility]),[place]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) 2.5 mg NEBULIZER PRN 04/24/2023 04/23/2024 Active documented as of this encounter (statuses as of 01/22/2024) Active Problems Problem Noted Date Diagnosed Date COPD, group D, by GOLD 2017 classification 04/29 Overview: Per COPD GOLD Classification Miner 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 States he was advised he was not a surgical candidate. Carotid stenosis, right 07/11/2017 History of stroke 07/11/2017 Overview: TIA vs lacunar stroke diagnosed on head CT in [place] Apr 2017. Follow up MRI [facility] no infarct. Anxiety 07/11/2017 HTN, goal below 140/90 08/02/2015 Coronary artery disease Dyslipidemia, goal LDL below 100 documented as of this encounter (statuses as of 01/22/2024) Resolved Problems Problem Noted Date Diagnosed Date [...] as of this encounter (statuses as of 01/22/2024) Immunizations Name Administration Dates Next Due COVID-19 [...] EST Patient wants the order sent to [facility] Home care. Will send once note from [...] Description 02/03/2024 10:30 AM EST Imaging Radiology [address] [place] [address] 02/10/2024 1:00 PM EST Imaging Radiology [facility] 1st Floor, [place] 132 [facility] [place] [address] 02/25/2024 4:00 PM EST Office Visit Urology, [facility] 132 [facility] [place] [address] Cameron Romeo MD 27 [facility] [place] [address] 02/26/2024 1:40 PM EST Office Visit Family Medicine [address] [place] [phone] Jody Arora MD [address] [place] [address] [place] [address] 05/11/2024 10:30 AM EST Office Visit Cardiology, [facility] 132 [facility] [place] [address] Augustin Mathis, 132 [facility] [place] [address] Health Maintenance Due Date Last Done Comments [...] disease documented in this encounter Care Teams Food Service Representative Relationship Specialty Start Date End Date Jody Arora MD [address] [place] [address] [place] [address] PCP - General Family Medicine 11/21/21 documented as of this encounter
--- OUTSIDE RECORDS SUMMARY | 2024-01-28 16:50 | External Medical Summary | Summary of Care ---
Author Name Unknown Organization [facility] Address [address] [place] [facility] [place] [address] Phone [phone] Care Team Providers Care Auto Roller Name Role Phone Jody Arora MD Primary Care Provide r Reason for Visit * Reason Onset Date Comments Advice 01/22/2024 Encounter Details Date Type Department Care Team (Late st Contact Info) Description 01/22/2024 Telephone Family [address] [place] [address] Jody Arora MD [address] [place] [address] [place] [address] Advice Allergies No known [...] COPD, group C, by GOLD 2017 classification ([facility]) INHALE 1 DOSE BY MOUTH IN THE MORNING AND 1 AT BEDTIME 60 Each 05/28/2023 Active Ventolin HFA 108 (90 Base) MCG/ACT Inhalation Aerosol SolutionIndications :COPD, group D, by GOLD 2017 classification ([facility]) Inhale 2 Puffs by mouth [...] MG Oral Tablet (Ativan)Indications :Anxiety,ESRD on dialysis ([facility]) 1 tablet 15-20 minutes before dialysis [...] C, by GOLD 2017 classification ([facility]),[place]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) 2.5 mg NEBULIZER PRN 04/24/2023 04/23/2024 Active Albuterol Sulfate (Proventil) (2.5 MG/3ML) 0.083% inhalation solution 2.5 mgIndications:Chronic hypoxemic respiratory failure (HCC),COPD, group C, by GOLD 2017 classification ([facility]),[place]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) 2.5 mg NEBULIZER PRN 04/24/2023 04/23/2024 Active documented as of this encounter (statuses as of 01/23/2024) Active Problems Problem Noted Date Diagnosed Date COPD, group D, by GOLD 2017 classification 04/29 Overview: Per COPD GOLD Classification [place] miners' pneumoconiosis 04/24/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 States he was advised he was not a surgical candidate. Carotid stenosis, right 07/11/2017 History of stroke 07/11/2017 Overview: TIA vs lacunar stroke diagnosed on head CT in [place] Apr 2017. [facility] [...] to be faxed: office notes Fax number: [phone] Attention to Name/Company: [employer] Any additional information?: needs to state that pt needs head elevated due to COPD * Telephone Encounter - Elisa Mcmahon CMA - 01/22/2024 5:04 PM EST Faxed. * Telephone Encounter - Elisa Mcmahon CMA - 01/22/2024 4:55 PM EST Patient [facility]. Will send once note from palliative is [...] Description 02/03/2024 10:30 AM EST Imaging Radiology [address] [place] [address] 02/10/2024 1:00 PM EST Imaging Radiology [facility]st [facility] 132 [facility] [place] [address] 02/25/2024 4:00 PM EST Office Visit Urology, [facility] 132 [facility] [place] [address] Cameron Romeo MD 27 [place] [address] 02/26/2024 1:40 PM EST Office Visit Family Medicine [address] [place] [phone] Jody Arora MD [address] [place] [address] [place] [address] 05/11/2024 10:30 AM EST Office Visit Cardiology, [facility] [address] [place] [address] Augustin Mathis, [address] [place] [address] Health Maintenance Due Date Last Done Comments [...] disease documented in this encounter Care Teams Auto Roller Relationship Specialty Start Date End Date Jody Arora MD [address] [place] [address] [place] [address] PCP - General Family Medicine 11/21/21 documented as of this encounter
--- OUTSIDE RECORDS SUMMARY | 2024-01-28 16:50 | External Medical Summary | Summary of Care ---
Author Name Unknown Organization [facility] Address [address] [place] [address] Phone [phone] Care Team Providers Care Floral Manager Name Role Phone Jody Arora MD Primary Care Provide r Reason for Visit * Reason Onset Date Comments Advice 01/22/2024 Encounter Details Date Type Department Care Team (Late st Contact Info) Description 01/22/2024 Telephone Family [address] [place] [address] Jody Arora MD [address] [place] [address] [place] [address] Advice Allergies No known [...] MG Oral Tablet (Ativan)Indications :Anxiety,ESRD on dialysis ([facility] ([facility]),[place]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) 2.5 mg NEBULIZER PRN 04/24/2023 04/23/2024 Active Albuterol Sulfate (Proventil) (2.5 MG/3ML) 0.083% inhalation solution 2.5 mgIndications:Chronic hypoxemic respiratory failure (HCC),COPD, group C, by GOLD 2017 classification (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 States he was advised he was not a surgical candidate. Carotid stenosis, right 07/11/2017 History of stroke 07/11/2017 Overview: TIA vs lacunar stroke diagnosed on head CT in [place] Apr 2017. Follow up [facility] no infarct. Anxiety 07/11/2017 HTN, [...] to be faxed: office notes Fax number: [phone] Attention to Name/Company: [employer] Any additional information?: needs to state that pt needs head elevated due to COPD * Telephone Encounter - Elisa Mcmahon CMA - 01/22/2024 5:04 PM EST Faxed. * Telephone Encounter - Elisa Mcmahon CMA - 01/22/2024 4:55 PM EST Patient wants the order sent to [facility]. Will send once note from palliative [...] Description 02/03/2024 10:30 AM EST Imaging Radiology [address] [place] [address] 02/10/2024 1:00 PM EST Imaging Radiology [facility] 1st Floor, [address] [place] [address] 02/25/2024 4:00 PM EST Office Visit Urology, [facility] [place] [address] Cameron Romeo MD [address] [place] [address] 02/26/2024 1:40 PM EST Office Visit Family Medicine [address] [place] [address] Jody Arora MD [address] [place] [address] [place] [address] 05/11/2024 10:30 AM EST Office Visit Cardiology, [facility] [address] [place] [address] Augustin Mathis, [address] [place] [address] Health Maintenance Due Date Last Done Comments Alpha-1 Antitrypsin 1958 Adult Wellness Visit 2006 *COPD SEVERITY VERIFIED BY PFT 07/16/2020 COVID-19 Vaccine ( season) 2023 01/03/2023, 01/10/2021, 05/24/2020, Additional history exists GFR 02/27/2024 08/28/2023, 0 09/2023, 07/10/2023, Additional history exists Depression Screening [...] disease documented in this encounter Care Teams Floral Manager Relationship Specialty Start Date End Date Jody Arora MD [address] [place] [address] [place] [phone] PCP - General Family Medicine 11/21/21 documented as of this encounter
--- OUTSIDE RECORDS SUMMARY | 2024-01-28 16:50 | External Medical Summary | Summary of Care ---
Author Name Unknown Organization [facility] Address [address] [place] [address] Phone [phone] Care Team Providers Care Engineering Surveyor Name Role Phone Jody Arora MD Primary [...] with heart failure (HCC) Brielle Schmidt MD [address] [place] [id number] Referral ID Status Reason Start Date Expiration Date Visits Requested Visits Authorized [id number] Authorized Specialty Services Required 01/22/2024 999 999 Question Answer Referral Priority Within 10 days (routine) Where should this appointment be scheduled? Ketty Comments Documentation of [id number] Encounter Addendum Patient Name: Justin Pinedo I certify that this patient is under my care and that I, or a nurse practitioner or physician's life enrichment assistant working with me, had a [id number] encounter that meets the physician xitd-qi-flkf encounter requirements with this patient on: 01/22/2024 [...] effort and are for medical reasons or yarsani services or infrequently or of short duration when for other reason) because: He cannot walk without assistance, is not leaving house, is on 4L constantly Physician Signature: Date of Signature: Physician Printed Name: Brielle Schmidt MD Encounter Details Date Type Department Care Team (Late st Contact Info) Description 01/22/2024 4:00 PM EST Telemedicine Palliative Medicine [facility] [address] [place] [address] Brielle Schmidt MD [address] [place] [address] [place] [address] Frailty*; Palliative care encounter; Cardiorenal [...] by GOLD 2017 classification ([facility]) Inhale 3 mL via nebulizer every 4 [...] by GOLD 2017 classification ([facility]) INHALE 1 DOSE BY MOUTH IN THE MORNING AND 1 AT BEDTIME 60 Each 05/28/2023 Active Ventolin HFA 108 (90 Base) MCG/ACT Inhalation Aerosol SolutionIndications :COPD, group D, by GOLD 2017 classification ([facility]) Inhale 2 Puffs by mouth every 4 [...] Oral Tablet (Demadex)Indication s:ESRD needing dialysis ([facility]) Take 4 Tablets by mouth 2 times a day in the morning and at noon. 120 Tablet 5 07/05/2023 01/22/20 24 Discontinued Hospital, Clinic, or Other Facility Administered Medication Ordered Dose Route Frequency Start Date End Date Status Albuterol Sulfate (Proventil) (5 MG/ML) 0.5% *conc* inhalation solution 2.5 mgIndications:Chronic hypoxemic respiratory failure (HCC),COPD, group C, by GOLD 2017 classification ([facility]),[place]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) 2.5 mg NEBULIZER PRN 04/24/2023 04/23/2024 Active Albuterol Sulfate (Proventil) (2.5 MG/3ML) 0.083% inhalation solution 2.5 mgIndications:Chronic hypoxemic respiratory failure (HCC),COPD, group C, by GOLD 2017 classification ([facility]),[place]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) 2.5 mg NEBULIZER PRN 04/24/2023 04/23/2024 Active documented as of this encounter (statuses as of 01/22/2024) Active Problems Problem Noted Date Diagnosed Date COPD, group D, by GOLD 2017 classification 04/29 Overview: Per COPD GOLD Classification [place] 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 States he was advised he was not a surgical candidate. Carotid stenosis, right 07/11/2017 History of stroke 07/11/2017 Overview: TIA vs lacunar stroke diagnosed on head CT in [place] Apr 2017. Follow up [facility] [...] as of this encounter Progress Notes * Brielle Schmidt MD - 01/22/2024 4:00 PM EST Palliative Medicine Outpatient Progress Note IN HOME TELEMEDICINE VISIT [facility], [facility] [address] [place] [id number] Name: Justin Pinedo Date: 01/22/2024 I was in a hospital or clinic location. After connecting through televideo, patient was verified with two unique identifiers. Patient (or authorized legal inventory representative) was then informed that this was [...] hospital for treatment, but is a DNR/DNI. 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 Examination: No vital signs as this [...] the office and he was transferred to [facility] again Information obtained from daughter Damaris for [...] now. Wishes he could get it at [facility] since they are able to give pressors and take more fluid off, sometimes upto 9L, while he gets 1L at dialysis Not a candidate for home hemodialysis Frailty Significant functional decline since our last visit. Will get PT/OT/Nursing/Bath aide to come assess and help him in the home. Hopefully this can be with [facility] HH/Palliative to transition to hospice easily in the uture. Pt is definitely homebound, struggles to leave the house without any aid, has stopped driving PCP put in hospital bed order Depression / high pill burden Recommend stopping Buspar (and Crestor as I am not sure if its that valuable at this time) Will [facility] Neph[facility] about adding mirtazapine 7.5mg qHS Goals [...] of separately billed services. Brielle Schmidt MD [facility] Palliative Medicine [phone] documented in this encounter Plan of Treatment Upcoming Encounters Date Type Department Care Team (Late st Contact Info) Description 02/03/2024 10:30 AM EST Imaging Radiology [address] [place] [address] 02/10/2024 1:00 PM EST Imaging Radiology [facility] 132 [facility] [place] [address] 02/25/2024 4:00 PM EST Office Visit Urology, [address] [place] [address] Cameron Romeo MD [address] [place] [address] 02/26/2024 1:40 PM EST Office Visit Family Medicine [address] [place] [address] Jody Arora MD [address] [place] [address] [place] [address] 05/11/2024 10:30 AM EST Office Visit Cardiology, [facility] 132 [facility] [place] [address] Augustin Mathis DO [address] [place] [address] Scheduled Referrals Name Type Priority Associated Diagnoses [...] (HCC) documented in this encounter Care Teams Engineering Surveyor Relationship Specialty Start Date End Date Jody Arora MD [address] [place] [address] [place] [address] PCP - General Family Medicine 11/21/21 documented as of this encounter
--- OUTSIDE RECORDS SUMMARY | 2024-01-28 16:51 | External Medical Summary | Summary of Care ---
Author Name Unknown Organization [facility] Address [address] [facility] [place] [place] [address] Phone [phone] Care Team Providers Care Pipe Line Repairer Name Role Phone Jody Arora MD Primary Care Provide r Reason for Visit * Reason Onset Date Comments Advice 01/22/2024 Encounter Details Date Type Department Care Team (Late st Contact Info) Description 01/22/2024 Telephone Family [address] [place] [address] Jody Arora MD [address] [place] [address] [place] [address] Advice Allergies No known [...] COPD, group C, by GOLD 2017 classification ([facility]) INHALE 1 DOSE BY MOUTH IN THE MORNING AND 1 AT BEDTIME 60 Each 05/28/2023 Active Ventolin HFA 108 (90 Base) MCG/ACT Inhalation Aerosol SolutionIndications :COPD, group D, by GOLD 2017 classification ([facility]) Inhale 2 Puffs by mouth [...] MG Oral Tablet (Ativan)Indications :Anxiety,ESRD on dialysis ([facility]) 1 tablet 15-20 minutes before [...] (HCC),COPD, group C, by GOLD 2017 classification ([facility]),[place]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) 2.5 mg NEBULIZER PRN 04/24/2023 04/23/2024 Active Albuterol Sulfate (Proventil) (2.5 MG/3ML) 0.083% inhalation solution 2.5 mgIndications:Chronic hypoxemic respiratory failure (HCC),COPD, group C, by GOLD 2017 classification ([facility]),[place]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) 2.5 mg NEBULIZER PRN 04/24/2023 04/23/2024 Active documented as of this encounter (statuses as of 01/22/2024) Active Problems Problem Noted Date Diagnosed Date COPD, group D, by GOLD 2017 classification 04/29 Overview: Per COPD GOLD Classification [place] miners' pneumoconiosis 04/24/2023 Papillary renal cell [...] Overview: 2018 biopsy at [facility] per patient "kidney cancer". States he was advised he was not a surgical candidate. Carotid stenosis, right 07/11/2017 History of stroke 07/11/2017 Overview: TIA vs lacunar stroke diagnosed on head CT in [place] Apr 2017. Follow up MRI [facility] no infarct. Anxiety 07/11/2017 HTN, goal [...] EST Patient wants the order sent to [facility]. Will send once note from palliative is [...] Description 02/03/2024 10:30 AM EST Imaging Radiology [address] [place] [address] 02/10/2024 1:00 PM EST Imaging Radiology [facility] [address] [place] [address] 02/25/2024 4:00 PM EST Office Visit Urology, [facility] 132 [facility] [place] [address] Cameron Romeo MD 27 [place] [address] 02/26/2024 1:40 PM EST Office Visit Family Medicine [address] [place] [address] Jody Arora MD [address] [place] [address] [place] [address] 05/11/2024 10:30 AM EST Office Visit Cardiology, [facility] [address] [place] [address] Augustin Matihs DO [address] [place] [address] Health Maintenance Due Date Last Done Comments [...] disease documented in this encounter Care Teams Pipe Line Repairer Relationship Specialty Start Date End Date Jody Arora MD [address] [place] [address] [place] [address] PCP - General Family Medicine 11/21/21 documented as of this encounter
--- OUTSIDE RECORDS SUMMARY | 2024-01-28 16:51 | External Medical Summary | Summary of Care ---
Author Name Unknown Organization [facility] Address [address] [place] [address] Phone [phone] Care Team Providers Care Chain Splitter Name Role Phone Jody Perales MD Primary Care Provide r Reason for Visit * Reason Comments eRx-Medication Refill Encounter Details Date Type Department Care Team (Late st Contact Info) Description 01/19/2024 Refill Family Medicine [address] [place] [address] Jody Perales MD [address] [place] [address] [place] [address] Adjustment disorder with mixed disturbance of emotions and conduct Allergies No known active allergiesdocumented as of this encounter (statuses as of 01/21/2024) Medications Medication Sig Dispensed Refills Start Date End Date Status nitroglycerin (NITROSTAT) 0.[address] 1 Tablet under the tongue every 5 minutes as needed for Pain, Chest. 9 Active Ipratropium-Albuter ol 0.5-2.5 (3) MG/3ML Inhalation [...] COPD, group C, by GOLD 2017 classification ([facility]) INHALE 1 DOSE BY MOUTH IN THE MORNING AND 1 AT BEDTIME 60 Each 4 Active Ventolin HFA 108 (90 Base) MCG/ACT Inhalation Aerosol SolutionIndications :COPD, group D, by GOLD 2017 classification ([facility]) Inhale 2 Puffs by mouth every 4 hours as needed for Wheezing. 18 g 2 4 Active Torsemide 20 MG Oral Tablet (Demadex)Indication s:ESRD needing dialysis ([facility]) Take 4 Tablets by mouth 2 [...] OR CUT 90 Capsule 3 4 Active Venlafaxine HCl ER 37.5 MG Oral Capsule Extended Release 24 Hour (Effexor XR)Indications:Adju stment disorder with mixed disturbance of emotions and conduct TAKE 1 CAPSULE BY MOUTH ONCE DAILY . DO NOT CHEW,CRUSH OR CUT 90 Capsule 3 3 01/21/20 24 Discontinued Hospital, Clinic, or Other Facility Administered Medication Ordered Dose Route Frequency Start Date End Date Status Albuterol Sulfate (Proventil) (5 MG/ML) 0.5% *conc* inhalation solution 2.5 mgIndications:Chronic hypoxemic respiratory failure (HCC),COPD, group C, by GOLD 2017 classification ([facility]),[place]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) 2.5 mg NEBULIZER PRN 04/24/2023 04/23/2024 Active Albuterol Sulfate (Proventil) (2.5 MG/3ML) 0.083% inhalation solution 2.5 mgIndications:Chronic hypoxemic respiratory failure (HCC),COPD, group C, by GOLD 2017 classification ([facility]),[place]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) 2.5 mg NEBULIZER PRN 04/24/2023 04/23/2024 Active documented as of this encounter (statuses as of 01/21/2024) Active Problems Problem Noted Date Diagnosed Date COPD, group D, by GOLD 2017 classification 04/29 Overview: Per COPD GOLD Classification [place] 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 Follow up MRI [facility] no infarct. Anxiety 07/11/2017 HTN, goal below 140/90 08/02/2015 Coronary artery disease Dyslipidemia, goal LDL below 100 documented as of this encounter (statuses as of 01/21/2024) Resolved Problems Problem Noted Date Diagnosed Date [...] as of this encounter (statuses as of 01/21/2024) Immunizations Name Administration Dates Next Due COVID-19 [...] Telephone Encounter - Jody Perales MD - 01/21/2024 8:19 AM EST Signed Prescriptions: Disp Refills Venlafaxine HCl ER 37.5 MG Oral Capsule Ex*90 Cap*3 Sig: TAKE 1 CAPSULE BY MOUTH ONCE DAILY DO NOT CHEW, CRUSH, OR CUT Authorizing Provider: JODY PERALES * Telephone Encounter - Marii Barron RP - 01/21/2024 7:48 AM ESTPending Prescriptions: Disp Refills Venlafaxine HCl ER 37.5 MG Oral Capsule Ex*90 Cap*3 Sig: TAKE 1 CAPSULE BY MOUTH ONCE DAILY DO NOT CHEW, CRUSH, OR CUT * Telephone Encounter - Marii Braron RPh - 01/21/2024 7:48 AM EST Unable to authorize medication refills for pended medication(s) at this time. Part of the protocol criteria used for refill authorization was not satisfied. Patient needs a BMP WNL. Please approve ifappropriate. Tong, Marii Barron Clinical Pharmacist [facility] ([facility] [phone] 01/21/2024, 7:48 AM * Telephone Encounter - Marii Barron RPh - 01/21/2024 7:48 AM EST Did you pend patient's preferred pharmacy and medication before forwarding?yes Pharmacy: [facility] [address] [place] [address] Pending Prescriptions: Disp Refills Venlafaxine HCl ER 37.5 MG Oral Capsule E*90 Cap*3 Sig: TAKE 1 CAPSULE BY MOUTH ONCE DAILY DO NOT CHEW, CRUSH, OR CUT Last Visit: 09/03/2023 (in office), 03/09/2022 (telemedicine) Next Visit: 02/26/2024 If no future appointments scheduled, and last appointment is greater than a year ago, please schedule patient for a follow-up appointment Last date the medication was ordered: 01/22/23 Is this request for a controlled substance?No Urine Drug Screen:No results found. However, due to the size of the patient record, not all encounters were searched. Please check Results Review for a complete set of results. Patient Phone Numbers Labs: Lab Results Component Value Date/Time CREAT 4.08 (A) 08/28/2023 12:00 AM CREAT 2.5 (H) 03/24/2020 12:33 PM POTASSIUM 5.7 (A) 08/28/2023 12:00 AM POTASSIUM 4.8 03/24/2020 12:33 PM TSH 1.900 09/07/2020 12:00 AM TSH 1.49 01/08/2019 10:32 AM LDL 65 07/23/2023 02:30 PM LDL 38 09/07/2020 12:00 AM LDLCALC 19.60 09/07/2020 12:00 AM ALT 22 12/07/2021 11:15 AM ALT 26 03/24/2020 12:33 PM HGBA1C 6.6 (H) 07/23/2023 02:30 PM HGBA1C 6.2 (A) 09/07/2020 12:37 PM documented in this encounter Plan of Treatment Upcoming Encounters Date Type Department Care Team ([facility] Contact Info) Description 01/22/2024 4:00 PM EST Telemedicine Palliative Medicine [facility] [address] [place] [phone] Brielle Schmidt [facility] [address] 02/03/2024 10:30 AM EST Imaging Radiology [address] [place] [address] 02/10/2024 1:00 PM EST Imaging Rad[facility] 132 [facility] [place] [address] 02/25/2024 4:00 PM EST Office Visit Urology, [facility] 132 [facility] [place] [address] Cameron Romeo MD [address] [place] [address] [place] [address] 02/26/2024 1:40 PM EST Office Visit Family Medicine [address] [place] [address] Jody Perales MD [address] [place] [address] [place] [address] 05/11/2024 10:30 AM EST Office Visit Cardiology, [facility] 132 [facility] [place] [address] Augustin Mathis DO 132 [facility] [place] [address] Health Maintenance Due Date Last Done Comments [...] conduct documented in this encounter Care Teams Chain Splitter Relationship Specialty Start Date End Date Jody Perales MD [address] [place] [address] [place] [address] PCP - General Family Medicine 11/21/21 documented as of this encounter
--- OUTSIDE RECORDS SUMMARY | 2024-01-28 16:51 | External Medical Summary | Summary of Care ---
Author Name Unknown Organization [facility] Address [address] [facility] [place] [place] [address] Phone [phone] Care Team Providers Care Jailer Name Role Phone Jody Arora MD Primary Care Provide r Reason for Visit * Reason Onset Date Comments Advice 01/22/2024 Encounter Details Date Type Department Care Team (Late st Contact Info) Description 01/22/2024 Telephone Family [address] [place] [address] Jody Arora MD [address] [place] [address] [place] [address] Advice Allergies No known [...] GOLD 2017 classification ([facility]),[place]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) 2.5 mg NEBULIZER PRN 04/24/2023 04/23/2024 Active Albuterol Sulfate (Proventil) (2.5 MG/3ML) 0.083% inhalation solution 2.5 mgIndications:Chronic hypoxemic respiratory failure (HCC),COPD, group C, by GOLD 2017 classification (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 States he was advised he was not a surgical candidate. Carotid stenosis, right 07/11/2017 History of stroke 07/11/2017 Overview: TIA vs lacunar stroke diagnosed on head CT in [place] Apr 2017. Follow up MRI [facility] [...] No 05/20/2023 Does the household have a zuni hospitallar source of income? (Household - for [...] 01/22/2024 4:00 PM EST Telemedicine Palliative Medicine [facility] [address] [place] [address] Brielle Schmidt MD [address] [place] [address] [place] [address] 02/03/2024 10:30 AM EST Imaging Radiology [address] [place] [address] 02/10/2024 1:00 PM EST Imaging Radiology [address] [facility] [place] [address] 02/25/2024 4:00 PM EST Office Visit Urology, [facility] 132 [facility] [place] [address] Cameron Romeo MD [address] [place] [address] [place] [address] 02/26/2024 1:40 PM EST Office Visit Family Medicine [address] [place] [address] Jody Arora MD [address] [place] [address] [place] [address] 05/11/2024 10:30 AM EST Office Visit Cardiology, [facility] 132 [facility] [place] [address] Augustin Mathis DO [address] [place] [address] Health Maintenance Due Date Last Done Comments [...] disease documented in this encounter Care Teams Jailer Relationship Specialty Start Date End Date Sellathurai, Thiviyanath, MD [address] [place] [address] [place] [address] PCP - General Family Medicine 11/21/21 documented as of this encounter
--- OUTSIDE RECORDS SUMMARY | 2024-01-28 16:51 | External Medical Summary | Summary of Care ---
Author Name Unknown Organization [facility] Address [address] [place] [facility] [place] [address] Phone [phone] Care Team Providers Care Manager Route Name Role Phone Jody Arora MD Primary Care Provide r Reason for Visit * Reason Onset Date Comments Advice 01/22/2024 Encounter Details Date Type Department Care Team (Late st Contact Info) Description 01/22/2024 Telephone Family [address] [place] [address] Jody Arora MD [address] [place] [address] [place] [id number] Advice Allergies No known [...] :COPD, group D, by GOLD 2017 classification ([place] [...] MG Oral Tablet (Ativan)Indications :Anxiety,ESRD on dialysis ([facility]) [...] GOLD 2017 classification ([facility]),Rice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) 2.5 mg NEBULIZER PRN 04/24/2023 04/23/2024 Active Albuterol Sulfate (Proventil) (2.5 MG/3ML) 0.083% inhalation solution 2.5 mgIndications:Chronic hypoxemic respiratory failure (HCC),COPD, group C, by GOLD 2017 classification ([facility]),Rice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) 2.5 mg NEBULIZER PRN 04/24/2023 04/23/2024 Active documented as of this encounter (statuses as of 01/22/2024) Active Problems Problem Noted Date Diagnosed Date COPD, group D, by GOLD 2017 classification 04/29 Overview: Per COPD GOLD Classification 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 States he was advised he was not a surgical candidate. Carotid stenosis, right 07/11/2017 History of stroke 07/11/2017 Overview: TIA vs lacunar stroke diagnosed on head CT in [place] Apr 2017. Follow up MRI [facility] no infarct. Anxiety 07/11/2017 HTN, [...] Description 02/03/2024 10:30 AM EST Imaging Radiology [address] [place] [address] 02/10/2024 1:00 PM EST [facility] [address] [facility] [place] [address] 02/25/2024 4:00 PM EST Office Visit Urology, [facility] [address] [facility] [place] [address] Cameron Romeo MD [address] [place] [address] 02/26/2024 1:40 PM EST Office Visit Family Medicine [address] [place] [address] Jody Arora MD [address] [place] [address] [place] [address] 05/11/2024 10:30 AM EST Office Visit Cardiology, [facility] [address] [facility] [place] [address] Augustin Mathis, [address] [place] [address] Health Maintenance Due Date Last Done Comments [...] disease documented in this encounter Care Teams Manager Route Relationship Specialty Start Date End Date Jody Arora MD [address] [place] [address] [place] [address] PCP - General Family Medicine 11/21/21 documented as of this encounter
--- OUTSIDE RECORDS SUMMARY | 2024-01-28 16:51 | External Medical Summary | Summary of Care ---
Author Name Unknown Organization [facility] Address [address] [place] [address] Phone [phone] Care Team Providers Care Sports Management Professor Name Role Phone Jody Arora MD Primary Care Provide r Reason for Visit * Reason Onset Date Comments STAIR 02/21/2022 AAA Encounter Details Date Type Department Care Team (Late st Contact Info) Description 02/21/2022 Telephone Vascular Surg [facility] [place] [address] [place] [address] Program, [facility] [address] [place] [address] STAIR (AAA) Allergies No known active allergiesdocumented as of this encounter (statuses as of 01/13/2024) Medications Medication Sig Dispensed Refills Start Date [...] as of this encounter (statuses as of 01/13/2024) Active Problems Problem Noted Date Diagnosed Date COPD, group D, by GOLD 2017 classification 04/29 Overview: Per COPD GOLD Classification [place] 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 Follow up MRI [facility] no infarct. Anxiety 07/11/2017 HTN, goal below 140/90 08/02/2015 Coronary artery disease Dyslipidemia, goal LDL below 100 documented as of this encounter (statuses as of 01/13/2024) Resolved Problems Problem Noted Date Diagnosed Date [...] as of this encounter (statuses as of 01/13/2024) Immunizations Name Administration Dates Next Due COVID-19 [...] Telephone Encounter - Destiny Enrique LPN - 01/13/2024 9:54 AM EDT Called and spoke to patient. States he is in [facility] and had to cancel. Rescheduled for next month. * Telephone Encounter - Destiny Enrique LPN [...] (System to Track Abnormalities of Importance Reliably) [phone] * Telephone Encounter - Destiny Enrique LPN [...] patient agrees, follow-up letter sent. Enrolled in STAIR PCP - SACHIN Enrique LPN Coordinator STAIR (System to Track Abnormalities of Importance Reliably) [phone] documented in this encounter Plan of Treatment Upcoming Encounters Date Type Department Care Team (Late st Contact Info) Description 02/03/2024 10:30 AM EST Imaging Radiology [address] [place] [address] 02/10/2024 1:00 PM EST Imaging Radiology [facility] [address] [place] [address] 02/25/2024 4:00 PM EST Office Visit Urology, [address] [place] [address] Cameron Romeo MD [address] [place] [address] 02/26/2024 1:40 PM EST Office Visit Family Medicine [address] [place] [address] Jody Arora MD [address] [place] [address] [place] [address] 05/11/2024 10:30 AM EST Office Visit Cardiology, [facility] [address] [place] [address] Augustin Mathis, [address] [place] [address] Scheduled Orders Name Type Priority Associated Diagnoses [...] rupture documented in this encounter Care Teams Sports Management Professor Relationship Specialty Start Date End Date Jody Arora MD [address] [place] [address] [place] [id number] PCP - General Family Medicine 11/21/21 documented as of this encounter
[2024-01-28] MEDS: ACETAMINOPHEN 325 MG TAB PO PRN (17:12)
[2024-01-28] MEDS: CALCIUM ACETATE 667 MG CAP/TAB PO SCH (17:13)
[2024-01-28] MEDS: MIDODRINE HCL 2.5 MG TAB PO SCH (17:13)
[2024-01-28] MEDS: ALBUTEROL 0.083% NEBU SOLN 3 ML VIAL NEB PRN (17:17)
[2024-01-28 17:18] LABS: Hep B Surface Ag with confirm Negative (Negative)
[2024-01-28 17:27] LABS: Hepatitis B Surface Ab Quant 3.38 mIU/mL (>or=10mIU/mL Immune); Hepatitis B Surface Antibody Non-Immune
[2024-01-28] MEDS: methylPREDNISolone 40 MG in SYRINGE 0 ML IV SCH (19:51)
[2024-01-28] MEDS: ALBUT/IPRATROP 3MG/0.5MG NEB 3 ML VIAL NEB SCH (20:14)
[2024-01-28] MEDS: guaiFENesin 600 MG TABCR PO SCH (20:57)
[2024-01-28] MEDS: busPIRone 5 MG TAB PO SCH (20:58)
[2024-01-28] MEDS: NEPHROCAPS PO SCH (20:58)
[2024-01-28] MEDS: DOXYCYCLINE HYCLATE 100 MG CAP PO SCH (20:59)
[2024-01-28] MEDS: APIXABAN 2.5 MG TAB PO SCH (20:59)
[2024-01-28] MEDS: METOPROLOL SUCC 25MG EXT REL TAB PO SCH (20:59)
[2024-01-29 06:07] LABS: Hematocrit (blood only) 26.1 % (42.0-52.0); Hemoglobin 7.6 g/dl (14.0-18.0); Mean Corpuscular Hemoglobin 28.7 pg (25.0-34.0); Mean Corpuscular Hgb Conc 29.1 g/dL (32.0-36.0); Mean Corpuscular Volume 98.5 fL (80.0-100.0); Mean Platelet Volume 10.7 fL (9.4-12.4); Platelet Count 133 K/uL (130-400); RDW Coefficient of Variation 17.3 % (11.5-14.5); RDW Standard Deviation 61.5 fL (36.4-46.3); Red Blood Count 2.65 M/uL (4.70-6.10); White Blood Count 8.73 K/ul (4.8-10.8)
[2024-01-29 06:26] LABS: Alanine Aminotransferase 13 U/L (7-52); Albumin Globulin Ratio 1.5 (0.9-2); Albumin Level 3.7 gm/dl (3.4-5.0); Alkaline Phosphatase 50 U/L (34-104); Anion Gap 10 (3-11); Aspartate Aminotransferase 18 U/L (13-39); BUN Creatinine Ratio 7.9 (10-20); Bilirubin,Total 0.4 mg/dl (0.2-1.0); Blood Urea Nitrogen 42 mg/dl (6-23); Calcium 8.5 mg/dl (8.6-10.3); Carbon Dioxide 30 mmol/L (21-32); Chloride 96 mmol/L (98-107); Globulin 2.4 gm/dl (2.5-4.0); Glucose 204 mg/dl (70-99(Fasting)); Magnesium 1.9 mg/dl (1.7-2.4); Phosphorus 4.3 mg/dl (2.5-4.9); Potassium 4.6 mmol/L (3.5-5.1); Sodium 136 mmol/L (136-145); Total Protein 6.1 gm/dl (6.0-8.3)
[2024-01-29 06:35] LABS: Hypochromasia Present; Immature Granulocytes # (auto) 0.06 K/uL (0.01-0.20); Immature Granulocytes % (auto) 0.7 %; Lymphocytes # (auto) 0.17 K/uL (1.20-3.40); Lymphocytes % (auto) 1.9 %; Monocytes # (auto) 0.25 K/uL (0.11-0.59); Monocytes % (auto) 2.9 %; Neutrophils # (auto) 8.25 K/uL (1.40-6.50); Neutrophils % (auto) 94.5 %; Tear Drop Cells 1+
[2024-01-29] MEDS: ALBUMIN 25% 12.5 GM/50 ML VIAL IV SCH (07:40)
[2024-01-29] MEDS: VENLAFAXINE HCL XR 37.5 MG CAPXR PO SCH (07:41)
[2024-01-29] MEDS: PANTOprazole 40 MG TAB PO SCH (07:42)
[2024-01-29] MEDS: ROSUVASTATIN CALCIUM 10 MG TAB PO SCH (07:44)
--- NOTE | 2024-01-29 09:33 | Critical Care Consultation ---
Date of Consultation January 29, 2024 Assessment & Plan (1) ESRD on dialysis: Reason Critically Ill: [] PLAN: Neuro: Anxiety surrounding medical condition -Will start with 1 mg morphine and slowly titrate to effect -I am concerned that benzodiazepines may induce disinhibit ion which likely occurred yesterday. 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 not in exacerbation -Maintain supplemental oxygen with CO2 monitoring CV: History of permanent A-fib with history of rapid ventricular response on systemic anticoagulation Coronary artery disease with PCI in 1998 -Reviewed echocardiogram: Left ventricular ejection fraction 60 to 65%, no noted aortic abnormalities however visualization was difficult Mild tricuspid regurgitation -No obvious contraindication to using phenylephrine for pressure support should this be required also would consider Levophed Fluids/Renal: End-stage renal disease on hemodialysis -Reviewed nephrology notes goal to remove 4 kg in 4 hours ID: No indications for anti-infectives at this time GI/Nutrition: Patient is not in an n.p.o. status -Will consider oral anxiolysis should this be required however attempting to achieve anxiolysis with low-dose intravenous narcotic Heme: Anemia Endocrine: ICU hyperglycemia protocol Vascular access: Peripheral IVs Code Status: Full code Disposition: ICU for hemodialysis. If unable to complete course of hemodialysis secondary to patient not being able to comply with directions while needles and fistula may need to consider temporary hemodialysis catheter placement. Patient not in n.p.o. status will not proceed with procedural sedation, also attempting to avoid hyperadrenergic state as this may cause the patient to flip into heart failure. 1500 update, patient has received 1 mg IV morphine and is tolerating dialysis at this time. (2) Uremia: (3) Volume overload: (4) End-stage renal disease (ESRD): (5) Acute on chronic respiratory failure with hypoxia and hypercapnia: History of Present Illness Reason for Consultation: Inability to tolerate hemodialysis x 2 Requesting Physician: Dayana Attending Physician: Analilia Galvez MD History of Present Illness Patient is an 83-year-old male with end-stage renal disease who receives dialysis. He was slated to undergo his normal dialysis treatment Saturday in [place], he takes a sedative (it appears to be half a milligram of Ativan orally, patient is unsure of medication) prior to his dialysis treatments. Patient reports he needs to be sedated to the point of almost sleeping to complete dialysis. In his outpatient dialysis the patient's blood pressure was too low and unable to finish dialysis, he was sent to the emergency room for further evaluation. Per patient's report he attempted to undergo dialysis in the hospital, he was given additional sedatives and became combative and not dir ectable. He does not really remember the events of yesterday. I discussed the case with the dialysis nurses and they reported the patient was mildly combative however more importantly he was moving his arm that contains the fistula with the dialysis needles in it and there were concern for the patient compromising his fistula. Additionally there was a report that the patient was not on adequate oxygenation and looked rather hypoxic during one of the attempts of dialysis. Today the patient is without specific complaint nor shortness of breath. He wears 4 L of oxygen at baseline. We discussed the events, he felt that he was over medicated yesterday. I advised we we will err on the side of being slightly under sedated versus oversedated in an effort to optimize the patient to undergo dialysis. I have reviewed the patient's vital sign his blood pressure was 157/72, they have increased his midodrine. His respiratory rate is mildly elevated. He is saturating 96% on 4 L. He had lunch approximately 90 minutes prior. Allergies Allergy/AdvReac Type Severity Reaction Status Date / Time No Known Allergies Allergy Unverified 01/28/24 15:36 Home Medications Medication Instructions Recorded Confirmed Type venlafaxine 37.5 mg 37.5 mg PO DAILY 02/01/22 01/28/24 History capsule,extended release 24 hr (Effexor XR) nitroglycerin 0.4 mg sublingual 0.4 mg sublingual UD PRN Chest Pain 05/14/23 01/28/24 History tablet (Nitrostat) rosuvastatin 10 mg tablet 10 mg PO QAM 05/14/23 01/28/24 History buspirone 5 mg tablet 5 mg PO AMHS 08/26/23 01/28/24 History glycopyrrolate 9 mcg-formoterol 1 puff inhalation BID 08/26/23 01/28/24 History 4.8 mcg HFA aerosol inhaler (Bevespi Aerosphere) vitamin B complex-vitamin C-folic 1 tab PO 3XWK 08/26/23 01/28/24 History acid 0.8 mg tablet (Izzy-Vianney) apixaban 2.5 mg tablet (Eliquis) 2.5 mg PO BID #60 tabs 08/29/23 01/28/24 Rx ipratropium 0.5 mg-albuterol 3 mg 3 ml NEB Q4 PRN Wheezing 10/31/23 01/28/24 History (2.5 mg base)/3 mL nebulization soln calcium acetate(phosphat bind) 667 1,334 mg PO TIDWMEAL 11/10/23 01/28/24 History mg capsule lorazepam 0.5 mg tablet 0.5 mg PO DIRECTED 11/10/23 01/28/24 History albuterol sulfate 2.5 mg/3 mL 2.5 mg continuous nebulization Q6 12/25/23 01/28/24 History (0.083 %) solution for nebulization PRN Wheezing albuterol sulfate 90 mcg/actuation 2 puff inhalation Q4 PRN Wheezing 12/25/23 01/28/24 History aerosol inhaler guaifenesin 600 mg tablet, 600 mg PO Q12 #60 tabs 12/30/23 01/28/24 Rx extended release 12 hr (Mucinex) midodrine 2.5 mg tablet 2.5 mg PO TID@0800,1200,1700 30 12/30/23 01/28/24 Rx days #90 tabs midodrine 10 mg tablet 10 mg PO 3XWK PRN before dialysis 01/01/24 01/28/24 Rx #30 tabs metoprolol succinate 25 mg 25 mg PO BID 30 days #60 tabs 01/14/24 01/28/24 Rx tablet,extended release 24 hr pantoprazole 40 mg tablet,delayed 40 mg PO QAM 30 days #30 tabs 01/14/24 01/28/24 Rx release Patient History Medical History Multifocal pneumonia Left renal mass Pneumonia due to COVID-19 virus Urinary frequency Hx of blood clots "IN MY LEGS AND 1 IN MY LUNGS A LONG TIME AGO">WAS ON BLOOD THINNERS, CAUSED BY PHLEBITIS History of COVID-19 02/02/22>STILL HAS FATIGUE Adjustment disorder with mixed disturbance of emotions and conduct History of basal cell carcinoma Carotid stenosis, right 50-69% stenosis to right ICA; <50% stenosis to left ICA per 06/22/21 carotid duplex History of stroke 2017 OR 2018 >NO RESIDUAL History of [place] (myocardial infarction) 1998 MOLLY and COPD overlap syndrome WEARS 4L O2 AT HS Prediabetes PT DENIES Renal osteodystrophy Papillary renal cell carcinoma WITH MALIGNANCY>NO TREATMENT YET (CURRENT DX) Surgical History History of anesthesia reaction SLOW TO WAKE UP History of arthroscopy LEFT KNEE History of colonoscopy History of tooth extraction History of tonsillectomy History of cataract surgery RT/LEFT History of cholecystectomy History of appendectomy History of heart artery stent 1998>? # STENTS PLACED IN [facility] (FOLLWED BY DR. JACK SOUSA [facility]) Family History Other Colorectal cancer No family history of adverse response to anesthesia Social History Smoking Status: Never smoker Second Hand Exposure: No; Do You Dip or Chew Tobacco: No; Hx Alcohol Use: Yes Alcohol type: beer Hx Substance Use: No Preferred Language: Bhutanese Communication Ability: Effective Communication Tools: Other Oracle R12 Developer Required: No Beliefs That Will Affect Care: None Current Living Situation: Spouse Feels Safe at Home: Yes Safety Concerns: Feels Safe At This Time Assistive Devices: Cane, Oxygen - Continuous and Walker Physical Exam Physical Exam: General: Alert. nontoxic. Skin: Warm, dry, Head: Atraumatic Ears, nose, mouth and throat: airway patent, nasal cannula present Cardiovascular: Normal peripheral perfusion Respiratory: no respiratory distress, no salvador Rales Gastrointestinal: Non distended Musculoskeletal: No deformity, 2+ pitting edema Results & Data Results & Data Vital Signs (Past 12 Hours) Vital Signs Temp Pulse Pulse Resp BP Pulse Ox O2 Del Method 01/29/24 08:20 36.3 C L 95 H 18 119/71 97 Room Air 01/29/24 07:21 101 H 20 95 Nasal Cannula 01/29/24 02:51 36.8 C 88 20 118/78 94 Nasal Cannula 01/29/24 00:45 71 18 97 Nasal Cannula 01/28/24 22:56 36.4 C L 88 18 120/88 98 Nasal Cannula O2 Flow Rate 01/29/24 08:20 01/29/24 07:21 4 01/29/24 02:51 01/29/24 00:45 4 01/28/24 22:56 4 Critical Care Results & Data Vital Signs (Past 12 Hours) Vital Signs Temp Pulse Pulse Resp BP Pulse Ox O2 Del Method 01/29/24 08:20 36.3 C L 95 H 18 119/71 97 Room Air 01/29/24 07:21 101 H 20 95 Nasal Cannula 01/29/24 02:51 36.8 C 88 20 118/78 94 Nasal Cannula 01/29/24 00:45 71 18 97 Nasal Cannula 01/28/24 22:56 36.4 C L 88 18 120/88 98 Nasal Cannula O2 Flow Rate 01/29/24 08:20 01/29/24 07:21 4 01/29/24 02:51 01/29/24 00:45 4 01/28/24 22:56 4 Lab & Micro Results (Past 24 Hours) RBC 2.65 M/uL (4.70-6.10) L 01/29/24 WBC 8.73 K/ul (4.8-10.8) 01/29/24 Hgb 7.6 g/dl (14.0-18.0) L 01/29/24 Hct 26.1 % (42.0-52.0) L 01/29/24 MCV 98.5 fL (80.0-100.0) 01/29/24 MCH 28.7 pg (25.0-34.0) 01/29/24 MCHC 29.1 g/dL (32.0-36.0) L 01/29/24 RDW Standard Deviation 61.5 fL (36.4-46.3) H 01/29/24 RDW Coefficient of Variation 17.3 % (11.5-14.5) H 01/29/24 Plt Count 133 K/uL (130-400) 01/29/24 MPV 10.7 fL (9.4-12.4) 01/29/24 Neutrophils (%) (Auto) 94.5 % 01/29/24 Lymphocytes (%) (Auto) 1.9 % 01/29/24 Monocytes # (Auto) 0.25 K/uL (0.11-0.59) 01/29/24 Eosinophils # (Auto) 0.00 K/uL (0.00-0.50) 01/29/24 Immature Granulocyte % (Auto) 0.7 % 01/29/24 Neutrophils # (Auto) 8.25 K/uL (1.40-6.50) H 01/29/24 Lymphocytes # (Auto) 0.17 K/uL (1.20-3.40) L 01/29/24 Monocytes # (Auto) 0.25 K/uL (0.11-0.59) 01/29/24 Eosinophils # (Auto) 0.00 K/uL (0.00-0.50) 01/29/24 Basophils # (Auto) 0.00 K/uL (0.00-0.20) 01/29/24 Immature Granulocyte # (Auto) 0.06 K/uL (0.01-0.20) 4 Hypochromasia Present 01/29/24 Tear Drop Cells 1+ 01/29/24 Na 136 mmol/L (136-145) 01/29/24 K 4.6 mmol/L (3.5-5.1) 01/29/24 Cl 96 mmol/L (98-107) L 01/29/24 CO2 30 mmol/L (21-32) 01/29/24 Anion Gap 10 (3-11) 01/29/24 BUN 42 mg/dl (6-23) H 01/29/24 Creatinine 5.34 mg/dl (0.6-1.4) H* 01/29/24 BUN/Creatinine Ratio 7.9 (10-20) L 01/29/24 Glu 204 mg/dl (70-99(Fasting)) H 01/29/24 Ca 8.5 mg/dl (8.6-10.3) L 01/29/24 Phosphorus Level 4.3 mg/dl (2.5-4.9) 01/29/24 Total Bilirubin 0.4 mg/dl (0.2-1.0) 01/29/24 AST 18 U/L (13-39) 01/29/24 ALT 13 U/L (7-52) 01/29/24 Alkaline Phosphatase 50 U/L (34-104) 01/29/24 TP 6.1 gm/dl (6.0-8.3) 01/29/24 Albumin 3.7 gm/dl (3.4-5.0) 01/29/24 Globulin 2.4 gm/dl (2.5-4.0) L 01/29/24 Albumin/Globulin Ratio 1.5 (0.9-2) 01/29/24 Mg 1.9 mg/dl (1.7-2.4) 01/29/24 05:29 Calcium Level 8.5 mg/dl (8.6-10.3) L 01/29/24 05:29 Diagnostic Findings (Past 24 Hours) Chest X-Ray 01/28/24 09:37 XR chest 1V portable CLINICAL HISTORY: Dyspnea COMPARISON STUDY: Chest CT November 10, 2023. Chest radiograph January 10, 2024. FINDINGS: There is no pneumothorax or definite pleural effusion. Elevation of the right hemidiaphragm is unchanged. Cardiomegaly is unchanged. There is pulmonary vascular congestion. Left mid and lower lung opacity is present. There is persistent right basilar opacity. IMPRESSION: 1. Cardiomegaly with pulmonary vascular congestion, similar to prior exam. 2. Stable elevation of the right hemidiaphragm. 3. Bilateral lower lung opacities which could reflect pneumonia or atelectasis. ACT 112: Negative or not required by law. Electronically signed by: Jhonatna Restrepo M.D. 01/28/2024 10:54 AM I & O Totals 24 Hours 01/28/24 01/29/24 01/30/24 06:59 06:59 06:59 Intake Total 250 / 250 50 / 50 Balance 250 / 250 50 / 50 Cumulative 01/28/24 09:08 thru 01/29/24 08:52 Intake Total 300 Balance 300 RT Ventilator Mngmt (Last Documented) Ventilator Ordered Settings Respiratory Rate 18 01/29/24 08:20 Ventilator - PT Measurements Respiratory Rate 18 Coding Level of Care Code 49446 IN/OBS CONSULT LVL 5,80M Diagnoses ESRD on dialysis N18.6; Z99.2 Uremia N19 Volume overload E87.79 Hypervolemia type: other End-stage renal disease (ESRD) N18.6 Acute on chronic respiratory failure with hypoxia and hypercapnia J96.21; J96.22 (3) Volume overload Hypervolemia type: other Qualified Code(s): E87.79 - Other fluid overload
[2024-01-29] MEDS ORDERED: DEXTROSE 50% 50 ML SYRINGE IV PRN (10:15)
[2024-01-29] MEDS ORDERED: GLUCOSE 40% GEL 15 GM TUBE PO PRN (10:15)
[2024-01-29] MEDS ORDERED: CARBOHYDRATES FOR HYPOGLYCEMIA PO PRN (10:15)
[2024-01-29] MEDS ORDERED: GLUCOSE 10 TAB/TUBE PO PRN (10:15)
[2024-01-29] MEDS ORDERED: GLUCAGON FOR INJ 1 MG VIAL SQ PRN (10:15)
[2024-01-29] MEDS: LANTUS PER UNIT CHARGE SC SCH (10:49)
--- NOTE | 2024-01-29 10:56 | Nephrology Progress Note ---
Date of Service January 29, 2024 Assessment & Plan Admission and Anticipated Discharge Date Admission Date: January 28, 2024 Subjective Assessment & Plan (1) ESRD on dialysis: Complicated Dialysis patient with Severe Life threatening vol overload with resp failure and hypoxia and hypercapnia. . High danger of needing mechanical ventilation. he gets low BP which makes it very difficult to take fluid off with dialysis without causing Hypotensive Crisis. will give midodrine and also 25% albumin to help with fluid removal. Planning for 3.5 kilo in 3.5 hrs today. he will need both Physical restraint to prevent him from removing needle as well as some Ativan ( het gets it normally) as tolerated by his BP. If his BP drops too low will need some levophed also. Plan discussed with ICU and RN. electrolytes are acceptable but volume overload is dangerous. prognosis is poor as this is second admission with Same issues. (2) Acute on chronic respiratory failure with hypoxemia: Sec to Severe Fluid overload. with his extensive cardiac and pulm problems very Dangerous and high risk for fatal complications. Will try aggressive fluid removal next few days. may have to revisit issue about level of care/Code status and even Palliative consult. (3) Volume overload: See above S--Now appears calm and comfortable. But Could only do about 1.5 hrs of dialysis yesterday. Patient got very agitated and confused trying to take the needle out. Bp also drops with dialysis. has lot of edema and is SOB. Physical Exam Physical Exam: GENERAL: restless and confused. eyes closed. did not answer. on 6L NC O2, getting HD NECK: No JVD, no neck masses. HEART: S1 and S2 heard. Regular rate and rhythm. No murmur, no gallop. RESPIRATORY SYSTEM: b/l rhonchi and basal crackles. ABDOMEN: Soft, bowel sounds present, nontender, no distention. EXTREMITIES: 2+ ble edema with some erythema seen. Results & Data Vital Signs (Past 12 Hours) Vital Signs Temp Pulse Pulse Resp BP Pulse Ox O2 Del Method 01/29/24 09:40 36.5 C 90 20 126/86 98 Nasal Cannula 01/29/24 08:20 36.3 C L 95 H 18 119/71 97 Room Air 01/29/24 08:00 Nasal Cannula 01/29/24 07:21 101 H 20 95 Nasal Cannula 01/29/24 02:51 36.8 C 88 20 118/78 94 Nasal Cannula 01/29/24 00:45 71 18 97 Nasal Cannula 01/28/24 22:56 36.4 C L 88 18 120/88 98 Nasal Cannula O2 Flow Rate 01/29/24 09:40 4 01/29/24 08:20 01/29/24 08:00 4 01/29/24 07:21 4 01/29/24 02:51 01/29/24 00:45 4 01/28/24 22:56 4
[2024-01-29] MEDS: MIDODRINE HCL 2.5 MG TAB PO PRN (12:05)
[2024-01-29] MEDS: INSULIN ASPART PER UNIT CHARGE SC SCH (12:07)
[2024-01-29] MEDS: MoRPHine SULFATE 2 MG/ML CARP IV STA ×2 (14:17→16:23)
--- NOTE | 2024-01-29 14:49 | Hospitalist Progress Note ---
Date of Service January 29, 2024 Assessment & Plan (1) Volume overload: Plan Pt is an 83-year-old male with PMHx significant for CAD status post stent, ESRD on HD, chronic hypoxemic respiratory failure [4 L oxygen], COPD, HLD, atrial flutter/atrial fibrillation, DVT, on Eliquis, MOLLY, CVA, prediabetes who presented to the ED after a hypoxic event at dialysis. Acute and chronic respiratory failure Volume overload Acute exacerbation of COPD Patient presented with a hypoxic event noted at 1 hour into hemodialysis. Patient noted to be wheezy and tired per patient's for several days. Admitting CXR with pulmonary vascular congestion And bilateral lower lung opacities pneumonia versus atelectasis. Patient and his denies any increase in cough or sputum production or fever in the last 1 week, hence no concern of pneumonia for now. continue to monitor. Patient received azithromycin in the ED along with Solu-Medrol and DuoNebs. Will continue with Solu-Medrol 40 Mg 3 times daily, DuoNebs, Perforomist and budesonide nebs, doxycycline twice daily for 5 days. Avoid QT prolonging drugs as patient has prolonged QTc. Wean down oxygen as tolerated. patient getting hemodialysis. End-stage renal disease on hemodialysis: ESRD on HD on sat schedule. Pt was acutely combative during hemodialysis attempt in the hospital on 01/28/24 transferred to the ICU for dialysis on 01/29/24- completed successfully H/o Atrial fibrillation/flutter: continue with home eliquis and metoprolol and diltiazem Coronary artery disease: S/P Stent, stable History of DVT (deep vein thrombosis): On chronic Eliquis Dyslipidemia: On atorvastatin at home Diet: dialysis renal DVT prophylaxis: On Eliquis Dispo: home once medically stable Admission and Anticipated Discharge Date Admission Date: January 28, 2024 Subjective patient was seen down in the ICU right when he had started dialysis. Was alert and oriented x 3. Was resting comfortably No acute distress Asking about the medication he had received to help him Review of Systems Review of Systems: All systems reviewed & are unremarkable except as noted in Subjective Physical Exam Physical Exam: General: Alert, orientedx3. No acute distress Neuro: No gross deficits HEENT: NC/AT CV: RRR Resp: Breath sounds clear bilaterally, no increased effort of breathing Abdomen: Soft, nontender, nondistended Extremities: No edema in lower extremities bilaterally. Results & Data Results & Data Vital Signs (Past 12 Hours) Vital Signs Temp Pulse Pulse Pulse Resp BP BP 01/29/24 13:28 81 19 01/29/24 13:01 157/72 H 01/29/24 13:00 96 H 24 01/29/24 12:12 01/29/24 12:00 84 20 123/80 01/29/24 11:06 95 H 18 144/78 H 01/29/24 09:40 36.5 C 90 20 126/86 01/29/24 08:20 36.3 C L 95 H 18 119/71 01/29/24 08:00 01/29/24 07:21 101 H 20 01/29/24 02:51 36.8 C 88 20 118/78 Pulse Ox O2 Del Method O2 Flow Rate 01/29/24 13:28 96 Nasal Cannula 4 01/29/24 13:01 01/29/24 13:00 96 4 01/29/24 12:12 Nasal Cannula 4 01/29/24 12:00 98 4 01/29/24 11:06 97 Nasal Cannula 4 01/29/24 09:40 98 Nasal Cannula 4 01/29/24 08:20 97 Room Air 01/29/24 08:00 Nasal Cannula 4 01/29/24 07:21 95 Nasal Cannula 4 01/29/24 02:51 94 Nasal Cannula Diagnostic Findings Chest X-Ray 01/28/24 09:37 XR chest 1V portable CLINICAL HISTORY: Dyspnea COMPARISON STUDY: Chest CT November 10, 2023. Chest radiograph January 10, 2024. FINDINGS: There is no pneumothorax or definite pleural effusion. Elevation of the right hemidiaphragm is unchanged. Cardiomegaly is unchanged. There is pulmonary vascular congestion. Left mid and lower lung opacity is present. There is persistent right basilar opacity. IMPRESSION: 1. Cardiomegaly with pulmonary vascular congestion, similar to prior exam. 2. Stable elevation of the right hemidiaphragm. 3. Bilateral lower lung opacities which could reflect pneumonia or atelectasis. ACT 112: Negative or not required by law. Electronically signed by: Jhonatan Restrepo M.D. 01/28/2024 10:54 AM (1) Volume overload Hypervolemia type: other Qualified Code(s): E87.79 - Other fluid overload
[2024-01-30] MEDS: MoRPHine SULFATE 2 MG/ML CARP IV PRN (09:00)
[2024-01-30 09:45] LABS: Hematocrit (blood only) 27.1 % (42.0-52.0); Mean Corpuscular Hemoglobin 28.9 pg (25.0-34.0); Mean Corpuscular Hgb Conc 29.5 g/dL (32.0-36.0); Mean Corpuscular Volume 97.8 fL (80.0-100.0); Mean Platelet Volume 10.3 fL (9.4-12.4); Nucleated RBC # (auto) 0.02 K/uL (0.00-0.12); Nucleated RBC % (auto) 0.1 %; Platelet Count 178 K/uL (130-400); RDW Coefficient of Variation 17.4 % (11.5-14.5); RDW Standard Deviation 62.4 fL (36.4-46.3); Red Blood Count 2.77 M/uL (4.70-6.10); White Blood Count 14.82 K/ul (4.8-10.8)
--- NOTE | 2024-01-30 10:05 | Dialysis Progress Note ---
Date of Service January 30, 2024 Assessment & Plan Admission and Anticipated Discharge Date Admission Date: January 28, 2024 Subjective Assessment & Plan (1) ESRD on dialysis: Complicated Dialysis patient with Severe Life threatening vol overload with resp failure and hypoxia and hypercapnia. . High danger of needing mechanical ventilation. he gets low BP which makes it very difficult to take fluid off with dialysis without causing Hypotensive Crisis. will give midodrine and also 25% albumin to help with fluid removal. Planning for 3.5 kilo in 3.5 hrs today. He seems to be doing good so far with dialysis. No agitation and no issues electrolytes are acceptable but volume overload is Significant. Contiue aggressive UF as outpt. next HD Sat as per his reg schedule Can be discharged after dialysis today (2) Acute on chronic respiratory failure with hypoxemia: Sec to Severe Fluid overload. with his extensive cardiac and pulm problems very Dangerous and high risk for fatal complications. Much better now (3) Volume overload: See above S--Seen During Dialysis. Now appears calm and comfortable. doig 3.5 hrs today. less edema now. Physical Exam Physical Exam: GENERAL: restless and confused. eyes closed. did not answer. on 6L NC O2, getting HD NECK: No JVD, no neck masses. HEART: S1 and S2 heard. Regular rate and rhythm. No murmur, no gallop. RESPIRATORY SYSTEM: b/l rhonchi and basal crackles. ABDOMEN: Soft, bowel sounds present, nontender, no distention. EXTREMITIES: 1+ ble edema with some erythema seen. Results & Data Vital Signs (Past 12 Hours) Vital Signs Pulse Pulse Resp BP Pulse Ox O2 Del Method O2 Flow Rate 01/30/24 07:17 87 16 95 Nasal Cannula 4 01/30/24 05:00 87 21 95 Nasal Cannula 4 01/30/24 04:00 92 H 21 129/72 92 Nasal Cannula 4 01/30/24 03:30 92 H 20 120/71 92 Nasal Cannula 4 01/30/24 03:00 91 H 22 127/66 95 Nasal Cannula 4 01/30/24 01:35 83 20 100 Nasal Cannula 4 01/30/24 00:00 88 20 127/68 98 Nasal Cannula 4 01/30/24 00:00 77
[2024-01-30 10:10] LABS: Alanine Aminotransferase 12 U/L (7-52); Albumin Globulin Ratio 1.6 (0.9-2); Albumin Level 3.8 gm/dl (3.4-5.0); Alkaline Phosphatase 55 U/L (34-104); Anion Gap 10 (3-11); Aspartate Aminotransferase 15 U/L (13-39); BUN Creatinine Ratio 9.3 (10-20); Bilirubin,Total 0.4 mg/dl (0.2-1.0); Blood Urea Nitrogen 42 mg/dl (6-23); Calcium 8.4 mg/dl (8.6-10.3); Carbon Dioxide 27 mmol/L (21-32); Chloride 98 mmol/L (98-107); Globulin 2.4 gm/dl (2.5-4.0); Glucose 242 mg/dl (70-99(Fasting)); Magnesium 1.8 mg/dl (1.7-2.4); Phosphorus 3.4 mg/dl (2.5-4.9); Potassium 4.5 mmol/L (3.5-5.1); Sodium 135 mmol/L (136-145); Total Protein 6.2 gm/dl (6.0-8.3)
--- NOTE | 2024-01-30 13:03 | Discharge Summary ---
Discharge Summary Date of Service January 30, 2024 Principal Dx & Hospital Course #1 = Principal Diagnosis (1) Volume overload: Plan Pt is an 83-year-old male with PMHx significant for CAD status post stent, ESRD on HD following with Nephrology, chronic hypoxemic respiratory failure [4 L oxygen], COPD, HLD, atrial flutter/atrial fibrillation, Hx of DVT, on Eliquis, MOLLY, CVA, prediabetes who presented to the ED after a hypoxic event at dialysis. Acute and chronic respiratory failure Volume overload Acute exacerbation of COPD Patient presented with a hypoxic event noted at 1 hour into outpatient hem odialysis. Patient noted to be wheezy and tired per patient's for several days. Admitting CXR with pulmonary vascular congestion and bilateral lower lung opacities pneumonia versus atelectasis. Patient and his deny any increase in cough or sputum production or fever in the past week. Patient received azithromycin in the ED along with Solu-Medrol and DuoNebs. Further treated with IV Solu-Medrol 40 Mg 3 times daily, DuoNebs, Perforomist and budesonide nebs, doxycycline twice daily for 5 days. -discharged with 3 more days of po doxycycline and medrol dose roni taper Avoid QT prolonging drugs as patient has prolonged QTc. Weaned down oxygen as tolerated Pt was stable on day of discharge and was back to baseline at 4L of oxygen. End-stage renal disease on hemodialysis: ESRD on HD on , sat schedule. Pt was acutely combative during hemodialysis attempt in the hospital on 01/28/24. Appears that he had received his as needed dose of Ativan that he takes before dialysis as an outpatient for anxiety related to the procedure, and received another dose of Ativan before hemodialysis was attempted once more in the hospital resulting in confusion and combativeness. Pt was transferred to the ICU for dialysis the next day on 01/29/24- completed successfully by using 1 mg of IV morphine before dialysis. Per daughter, patient was not as sedated after dialysis and would like consideration of transition to p.o. morphine instead of Ativan before dialysis. Discussion of palliative care. Daughter indicated that pt does currently follow with [facility] palliative care provider Dr. Divya Schmidt. Dr. Schmidt was contacted via [employer] text and advised of daughter's request. She stated that her office would be in touch to schedule a telehealth visit the day after discharge. Patient advised to continue with his regular dose of 0.5 mg of Ativan as needed before dialysis until he gets further recommendations from his palliative care provider. Please ensure close follow-up with palliative care as discussed above. H/o Atrial fibrillation/flutter: continue with home eliquis and metoprolol and diltiazem Coronary artery disease: S/P Stent, stable History of DVT (deep vein thrombosis): On chronic Eliquis Dyslipidemia: On atorvastatin at home Notes For Next Care Provider Please ensure follow-up with palliative care to discuss possible transition from p.o. Ativan to p.o. morphine as needed before his dialysis sessions Please ensure nephrology follow-up Medication Changes From Visit doxycycline 100mg BID x 3 more days Medrol dose roni Admission HPI Per Admitting Provider 83-year-old male with PMH of CAD status post stent, ESRD on HD, chronic hypoxemic respiratory failure [4 L oxygen], COPD, HLD, atrial flutter/atrial fibrillation, DVT, on Eliquis, MOLLY, CVA, prediabetes presented to the ED after hypoxic event at dialysis today. Per discussion with ED physician, patient was hypoxic into 80s on 4 L oxygen which is his baseline during dialysis, he got about 1 hour of dialysis and was sent to the ED for further evaluation. In the ED patient needed 6 L oxygen and received multiple DuoNeb treatments and azithromycin, respiratory rate and saturation improved. Patient was seen and examined at bedside, patient was getting hemodialysis, patient had received Ativan and he was lethargic. Patient did answer orientation questions appropriately, reports feeling better, was on 6 L oxygen, reports being in his usual state of health until before dialysis today, denies any recent fever/ sore throat/nausea/vomiting/diarrhea/chest pain/palpitation/belly pain. Reports cough at his baseline. Pt states he doesn't make urine. Called patient's over the phone, she states that patient was feeling tired and wheezy for last several days but no fever or increased cough/sputum or sore throat. Patient's appetite at baseline is poor in general. Full code as per my discussion with the patient. Admission Exam Per Admitting Provider GENERAL: lethargic, on 6L NC O2, getting HD HEENT: No pallor, no icterus. Pupils equal, round and reactive to light. Oral mucosa moist. NECK: No JVD, no neck masses. HEART: S1 and S2 heard. Regular rate and rhythm. No murmur, no gallop. RESPIRATORY SYSTEM: Normal AP diameter. No accessory muscle use. b/l rhonchi and bb crackles. ABDOMEN: Soft, bowel sounds present, nontender, no distention. CENTRAL NERVOUS SYSTEM: No facial droop. Speech is clear. Obeys simple commands. Moves extremities. EXTREMITIES: 1-2+ ble edema, no erythema seen. Discharge Exam General: Alert, orientedx3. No acute distress Neuro: No gross deficits HEENT: NC/AT CV: RRR Resp: Breath sounds clear bilaterally, no increased effort of breathing Abdomen: Soft, nontender, nondistended Extremities: No edema in lower extremities bilaterally. Updated Medication List Medication Instructions Recorded Confirmed Type venlafaxine 37.5 mg 37.5 mg PO DAILY 02/01/22 01/28/24 History capsule,extended release 24 hr (Effexor XR) nitroglycerin 0.4 mg sublingual 0.4 mg sublingual UD PRN Chest Pain 05/14/23 01/28/24 History tablet (Nitrostat) rosuvastatin 10 mg tablet 10 mg PO QAM 05/14/23 01/28/24 History buspirone 5 mg tablet 5 mg PO AMHS 08/26/23 01/28/24 History glycopyrrolate 9 mcg-formoterol 1 puff inhalation BID 08/26/23 01/28/24 History 4.8 mcg HFA aerosol inhaler (Bevespi Aerosphere) vitamin B complex-vitamin C-folic 1 tab PO 3XWK 08/26/23 01/28/24 History acid 0.8 mg tablet (Izzy-Vianney) apixaban 2.5 mg tablet (Eliquis) 2.5 mg PO BID #60 tabs 08/29/23 01/28/24 Rx ipratropium 0.5 mg-albuterol 3 mg 3 ml NEB Q4 PRN Wheezing 10/31/23 01/28/24 History (2.5 mg base)/3 mL nebulization soln calcium acetate(phosphat bind) 667 1,334 mg PO TIDWMEAL 11/10/23 01/28/24 History mg capsule lorazepam 0.5 mg tablet 0.5 mg PO DIRECTED 11/10/23 01/28/24 History albuterol sulfate 2.5 mg/3 mL 2.5 mg continuous nebulization Q6 12/25/23 01/28/24 History (0.083 %) solution for nebulization PRN Wheezing albuterol sulfate 90 mcg/actuation 2 puff inhalation Q4 PRN Wheezing 12/25/23 01/28/24 History aerosol inhaler guaifenesin 600 mg tablet, 600 mg PO Q12 #60 tabs 12/30/23 01/28/24 Rx extended release 12 hr (Mucinex) midodrine 2.5 mg tablet 2.5 mg PO TID@0800,1200,1700 30 12/30/23 01/28/24 Rx days #90 tabs midodrine 10 mg tablet 10 mg PO 3XWK PRN before dialysis 01/01/24 01/28/24 Rx #30 tabs metoprolol succinate 25 mg 25 mg PO BID 30 days #60 tabs 01/14/24 01/28/24 Rx tablet,extended release 24 hr pantoprazole 40 mg tablet,delayed 40 mg PO QAM 30 days #30 tabs 01/14/24 01/28/24 Rx release doxycycline hyclate 100 mg capsule 100 mg PO BID #6 caps 01/30/24 Rx methylprednisolone 4 mg tablets in See Rx Instructions .Route 01/30/24 Rx a dose pack (Medrol (Roni)) .COMPLEX #21 ea Hospital Stay Data Consultations 01/28/24 11:58 ED Decision to Admit Stat 01/28/24 11:59 Consult Nephrology Routine 01/29/24 07:11 Consult Laminating Machine Feeder Routine Diagnostic Imagining Performed Chest X-Ray 01/28/24 09:37 XR chest 1V portable CLINICAL HISTORY: Dyspnea COMPARISON STUDY: Chest CT November 10, 2023. Chest radiograph January 10, 2024. FINDINGS: There is no pneumothorax or definite pleural effusion. Elevation of the right hemidiaphragm is unchanged. Cardiomegaly is unchanged. There is pulmonary vascular congestion. Left mid and lower lung opacity is present. There is persistent right basilar opacity. IMPRESSION: 1. Cardiomegaly with pulmonary vascular congestion, similar to prior exam. 2. Stable elevation of the right hemidiaphragm. 3. Bilateral lower lung opacities which could reflect pneumonia or atelectasis. ACT 112: Negative or not required by law. Electronically signed by: Jhonatan Restrepo M.D. 01/28/2024 10:54 AM Discharge Instructions Given to Patient (Per Discharging Provider) Mr. Pinedo, You are admitted and treated for a brief episode of trouble breathing. We were concerned that you might have a slight infection in your lungs as well as a COPD exacerbation. We treated you with some antibiotics and steroids. Please continue with the prescribed doxycycline for 3 more days with your first dose tonight. Please also take the Medrol Dosepak per instructions. We suspect that your acute symptoms before dialysis in the hospital was related to you taking more than your usual dose of Ativan. After discussion with your electronic gluer as well as your palliative care provider Dr. Divya Schmidt, it was recommended that you continue with your home Ativan at the current prescribed dose until you follow-up with your palliative care provider Dr. Schmidt. Her office is trying to set up an appointment for you to be seen tomorrow to discuss a possible transition to oral morphine to be given before your dialysis sessions instead of Ativan. Please continue with your dialysis sessions as scheduled. Please keep close follow-up with your electronic gluer after discharge. Please also keep close follow-up with palliative care as indicated above. Please also keep close follow up with your primary care provider after discharge. Please do not hesitate to come back to the emergency room if your symptoms worsen or return. It was a pleasure taking care of you while you were here. Total Time Total Time Spent Total Time Spent (In Minutes): 65
[2024-01-30 13:57] VITALS: BP 134/69; PULSE 84; RESP 18; TEMP 98.1; O2SAT 98
--- NOTE | 2024-01-30 16:21 | Electrocardiogram Report ---
Test Reason : Blood Pressure : */* mmHG Vent. Rate : 89 BPM Atrial Rate : * BPM P-R Int : * ms QRS Dur : 142 ms QT Int : 454 ms P-R-T Axes : * -52 106 degrees QTcB Int : 552 ms Atrial fibrillation with premature ventricular or aberrantly conducted complexes Right bundle branch block Left anterior fascicular block Old Septal infarct Possible Lateral infarct , age undetermined Abnormal ECG When compared with ECG of 10-Jan-2024 09:58, No significant change Confirmed by Shon Caraballo ([id number]) on 01/30/2024 4:21:52 PM Referred By: REFERRED SELF Confirmed By: Shon Caraballo
== END 2024-01-30 14:46 | disposition home or self-care (01) | DRG 640 ==
LOC: ED 09:16 → SUATTDRO 12:39 → EDINP 12:39 → 4W 13:42 → 1E 01-29 09:19 → 2S 01-30 08:00

== ENCOUNTER 2024-03-15 11:49 | Inpatient (IN) ==
--- OUTSIDE RECORDS SUMMARY | 2024-03-15 11:56 | External Medical Summary | Summary of Care ---
Author Name Unknown Organization [facility] Address [address] [facility] [place] [address] Phone [phone] Care Team Providers Care Dry Wall Plasterer Name Role Phone Jody Arora MD Primary Care Provide r Reason for Visit * Reason Onset Date Comments Advice 03/06/2024 Encounter Details Date Type Department Care Team (Late st Contact Info) Description 03/06/2024 Telephone Family [address] [place] [address] Jody Arora MD [address] [place] [address] [place] [address] Advice Allergies No known active allergiesdocumented as of this encounter (statuses as of 03/07/2024) Medications nitroglycerin (NITROSTAT) 0.[address] [...] With midday meal post dialysis 4 Active Calcium Acetate (Phos Binder) [...] OR CUT 90 Capsule 3 4 Active Naloxone HCl 4 MG/0.1ML Nasal Liquid (Narcan Nasal) Administer 1 spray into 1 nostril for suspected opioid overdose. Seek immediate medical attention. [email or web address] I 1 Each 3 4 Active Morphine Sulfate (Concentrate) 100 MG/5ML Oral Solution Take 0.2 mL by mouth every 4 hours as needed (Pain, Anxiety before dialysis, or Shortness of breath). 30 mL 4 Active Midodrine HCl 10 MG Oral Tablet (Proamatine)Indica tions:ESRD on dialysis (HCC),Hypotension, unspecified hypotension type Take 1 tablet prior to dialysis three times a week 90 Tablet 4 Active Metoprolol Succinate ER 25 MG Oral Tablet Extended Release 24 Hour (toPROL XL)Indications:Atr ial fibrillation, unspecified type (HCC) Take 1 Tablet by mouth in the morning and 1 Tablet before bedtime. 180 Tablet 1 4 Active Midodrine HCl 2.5 MG Oral Tablet (Proamatine)Indica tions:Hypotension, unspecified hypotension type Take 1 Tablet by mouth in the morning and 1 Tablet at noon and 1 Tablet in the evening. Add additional 5mg during dialysis if SBP < 90.. 90 Tablet 1 4 Active Hospital, Clinic, or Other Facility Administered Medication Ordered Dose Route Frequency Start Date End Date Status Albuterol Sulfate (Proventil) (5 MG/ML) 0.5% *conc* inhalation solution 2.5 mgIndications:Chronic hypoxemic respiratory failure (HCC),COPD, group C, by GOLD 2017 classification (HCC),[place]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) 2.5 mg NEBULIZER PRN 04/24/2023 04/23/2024 Active Albuterol Sulfate (Proventil) (2.5 MG/3ML) 0.083% inhalation solution 2.5 mgIndications:Chronic hypoxemic respiratory failure (HCC),COPD, group C, by GOLD 2017 classification (HCC),[place]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) 2.5 mg NEBULIZER PRN 04/24/2023 04/23/2024 Active documented as of this encounter (statuses as of 03/07/2024) Active Problems Problem Noted Date Diagnosed Date COPD, group D, by GOLD 2017 classification 04/29 Overview: Per COPD GOLD Classification [place]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 States he was advised he was not a surgical candidate. Carotid stenosis, right 07/11/2017 History of stroke 07/11/2017 Overview (02/12/2018): TIA vs lacunar stroke diagnosed on head CT in [place] Apr 2017. Follow up MRI [facility] no infarct. Anxiety 07/11/2017 HTN, goal below 140/90 08/02/2015 Coronary artery disease Dyslipidemia, goal LDL below 100 documented as of this encounter (statuses as of 03/07/2024) Resolved Problems Problem Noted Date Diagnosed Date [...] as of this encounter (statuses as of 03/07/2024) Immunizations Name Administration Dates Next Due COVID-19 mRNA, LNP-s, No Pre serve, 2-Dose Series (Moderna) 01/10/2021,05/24/2020,04/26/2020 COVID-19, MRNA-LNP, 24-25, P F, 50 MCG/0.5ML, IM, 12 YRS & ABOVE (Moderna - Spikevax) 01/03/2023 COVID-19, MRNA-LNP, PF, 50 M CG/0.5 mL, 12 YRS AND ABOVE, IM (MODERNA-Spikevax) 01/03/2023 HEPATITIS B VACCINE, RECOMB, 20 MCG/ML, ADULT (HEPLISAV-B) 01/28/2024,11/26/2023,10/29/2023,09/23 Hepatitis B, 20+ yrs 01/23/2023,01/08/2018 Pneumococcal Conjugate [...] ant, RIV4, PF, (Flublock) 12/22/2018 Seasonal Influenza, Recombin ant, Trivalent, PF (Flublock) 01/07/2024 TDAP (age 10 and older)(Boostrix) 10/24/2018 Zoster [...] Date Recorded PHQ Adult Total Score 0 02/10/2024 Hunger Vital Sign Answer Date Recorded Within the past 12 months, y ou worried that your food would run out before you got the money to buy more. Never true 02/10/20 24 Within the past 12 months, t he food you bought just didn't last and you didn't have money to get more. Never true 02/10/2024 Childcare Answer Date Recorded Do you feel overwhelmed with taking care of a child, family member or friend? No 02/10/2024 Does your family need help f inding childcare? (Household - for ages 0-17 years) Not on file 02/10/2024 Clothing Answer Date Recorded Have you been unable to get clothing when it was really needed? No 02/10/2024 Is your family able to get c lothes or diapers when needed? (Household - for ages 0-17 years) Not on file 02/10/2024 Personal Safety Answer Date Recorded Do you feel unsafe or have concerns for your saf ety? No 02/10/2024 Do you have concerns for you r family's safety? (Household - for ages 0-17 years) Not on file 02/10/2024 Utilities Answer Date Recorded Do you have trouble paying y our heating, water, or electric bill? No 02/10/2024 Is your family able to pay t he heat, water, or electric bill? (Household - for ages 0-17 years) Not on file 02/10/2024 Does your family have access to good internet? (Household - for ages 0-17 years) Not on file 02/10/2024 Employment Status Answer Date Recorded Are you unemployed or without regular income? No 02/10/2024 Does the household have a re gular source of income? (Household - for ages 0-17 years) Not on file 02/10/2024 Social Connections Answer Date Recorded How often do you feel lonely or isolated from th ose around you? Never 02/10/2024 Financial Resource Strain Answer Date R ecorded Do you have any trouble payi ng for your medications, or do you think you might in the future? No 02/10/2024 Does your family have troubl e paying for medicine? (Household - for ages 0-17 years) Not on file 02/10/2024 Transportation Needs Answer Date Record ed READ ONLY Do you have troubl e getting a ride to medical visits or work? Never True 02/10/2024 Does your family have a hard time getting a ride to doctors visits? (Household - for ages 0-17 years) Not on file 02/10/2024 Has lack of transportation k ept you from medical appointments, meetings, work, or from getting things needed for daily living? Check all that apply. No 02/10/2024 Do you (or your family) have trouble finding or paying for a ride (transportation)? (Household - for ages 0-17 years) Not on file 02/10/2024 Housing Stability Answer Date Recorded Do you currently live in a s helter or have no steady place to sleep at night? No 02/10/2024 READ ONLY Do you think you a re at risk of becoming homeless? No 02/10/2024 Does your family worry about paying for your home or becoming homeless? (Household - for ages 0-17 years) Not on file 1 04/11/2023 Are you homeless or worried that you might be in the future? No 02/10/2024 Are you (or your family) maurizio eless or worried that you might be in the future? (Household - for ages 0-17 years) Not on file Food Insecurity Answer Date Recorded Do you need food for this week? No 02/10/2024 Are you able to get enough f ood for your family? (Household - for ages 0-17 years) Not on file 02/10/2024 Does your family need food t his week? (Household - for ages 0-17 years) Not on file 02/10/2024 Do you always have enough fo od for your family? (Household - for ages 0-17 years) Not on file 02/10/2024 Sex and Gender Information Value Date Recorded Sex Assigned at Not on file Legal Sex Male 7:25 AM EST Gender Identity Not on file Sexual Orientation Not on file documented as of this encounter Miscellaneous Notes * Telephone Encounter - Jody Arora MD - 03/07/2024 12:53 PM EST Can we call the pt - for the sacral soreness I referred the pt to wound care at home Can we get infor about the SOB - any fever - any cough - any wheezing What medication is he taking before bedtime? * Telephone Encounter - Mary Yepez LPN - 03/06/2024 2:52 PM EST Pt calling requesting to speak to Dr Arora. He has sore on butt that are not improving, he would like to know what is going to be done about it. He is concern about his breathing, what will be done to help him? He wants to know if any of his meds would cause weird dreams in the middle of the night? I offered to schedule an appt he declined stating he doesn't drive and doesn't want to come in for an appt. documented in this encounter Plan of Treatment Upcoming Encounters Date Type Department Care Team (Late st Contact Info) Description 05/11/2024 10:30 AM EST Office Visit Cardiology, [facility] [address] [place] [address] Augustin Mathis, [address] [place] [address] 08/03/2024 10:00 AM EDT Office Visit Urology, [facility] [address] [place] [address] Cameron Romeo MD [address] [place] [phone] Health Maintenance Due Date Last Done Comments Alpha-1 Antitrypsin 1958 Adult Wellness Visit 2006 *COPD SEVERITY VERIFIED BY PFT 07/16/2020 COVID-19 Vaccine ( season) 2023 01/03/2023, 01/03/2023, 01/26/2022, Additional history exists Albumin/Creatinine Ratio 07/09/2024 024, 08/08/2022, 12/07/2021, Additional history exists PTH 07/09/2024 07/10/2023, 11/16, 07/12/2022, Additional history exists Nephrology Referral 07/14/2024 07/15/2023 GFR 07/29/2024 01/30/2024, 08/16, 07/23/2023, Additional history exists Hgb 01/29/2025 01/30/2024, 01/16, 08/28/2023, Additional history exists Phosphate 01/29/2025 01/30/2024, 06/17, 04/04/2023, Additional history exists Depression Screening 02/09/2025 02/10/2024 O2 ASSESSMENT COMPLETED IN PAST YEAR FOR COPD 02/18/2025 02/19/2024 DTap/Tdap Vaccines (2 - Td or Tdap) 10/24/2028 10/24/2018 Pneumococcal Vaccine: 65+ Years Completed 01/16/2018, 01/16/2018, 02/09/2015 Zoster Vaccines Completed 12/11/2019, 10/09/2019 Influenza Vaccine (FLU shot) Completed , 01/23/2023, 01/23/2023, Additional history exists Hepatitis B Vaccine Completed 01/28/2024, 11/26/2023, 10/29/2023, Additional history exists HPV (Gardasil) Vaccine Aged Out No lo nger eligible based on patient's age to complete this topic MENINGOCOCCAL (MENACTRA/MENVEO) Aged Out No longer eligible based on patient's age to complete this topic documented as of this encounter Medical Devices Not on filedocumented as of this encounter Care Teams Dry Wall Plasterer Relationship Specialty Start Date End Date Jody Arora MD [address] [place] [address] [place] [phone] PCP - General Family Medicine 11/21/21 documented as of this encounter
--- OUTSIDE RECORDS SUMMARY | 2024-03-15 11:56 | External Medical Summary | Summary of Care ---
Author Name Unknown Organization [facility] Address [address] [place] [facility] [place] [place] [address] Phone [phone] Care Team Providers Care Trade Promotion Analyst Name Role Phone Jody Arora MD Primary Care Provide r Reason for Visit * Reason Onset Date Comments Order Request 03/03/2024 Encounter Details Date Type Department Care Team (Late st Contact Info) Description 03/03/[address] [address] Joey Gonzalez [address] [place] [address] Order Request Allergies No known active allergiesdocumented as of this encounter (statuses as of 03/03/2024) Medications nitroglycerin (NITROSTAT) 0.[address] 1 Tablet under the tongue every 5 minutes as needed for Pain, Chest. 9 Active Ipratropium-Albute rol 0.5-2.5 (3) MG/3ML Inhalation Solution (Duoneb)Indication s:Chronic hypoxemic respiratory failure (HCC),COPD, group C, by GOLD 2017 classification ([facility]) Inhale 3 mL via nebulizer [...] Oral Tablet (Ativan)Indication s:Anxiety,ESRD on dialysis ([facility]) 1 tablet 15-20 minutes before dialysis [...] suspected opioid overdose. Seek immediate medical attention. [email or web address] I 1 Each 3 4 Active Morphine [...] (HCC),COPD, group C, by GOLD 2017 classification (HCC),[place]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) 2.5 mg NEBULIZER PRN 04/24/2023 04/23/2024 Active Albuterol Sulfate (Proventil) (2.5 MG/3ML) 0.083% inhalation solution 2.5 mgIndications:Chronic hypoxemic respiratory failure (HCC),COPD, group C, by GOLD 2017 classification (HCC),[place]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) 2.5 mg NEBULIZER PRN 04/24/2023 04/23/2024 Active documented as of this encounter (statuses as of 03/03/2024) Active Problems Problem Noted Date Diagnosed Date COPD, group D, by GOLD 2017 classification 04/29 Overview: Per COPD GOLD Classification [place] 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 States he was advised he was not a surgical candidate. Carotid stenosis, right 07/11/2017 History of stroke 07/11/2017 Overview (02/12/2018): TIA vs lacunar stroke diagnosed on head CT in [place] Apr 2017. Follow up MRI [facility] no infarct. Anxiety 07/11/2017 HTN, goal below 140/90 08/02/2015 Coronary artery disease Dyslipidemia, goal LDL below 100 documented as of this encounter (statuses as of 03/03/2024) Resolved Problems Problem Noted Date Diagnosed Date [...] as of this encounter (statuses as of 03/03/2024) Immunizations Name Administration Dates Next Due COVID-19 [...] encounter Miscellaneous Notes * Telephone Encounter - Joey Gonzalez CRNP - 03/03/2024 2:36 PM EST DME ordered signed for alternating pressure pad. Can you please fax this to [facility]? Thanks! documented in this encounter Plan of Treatment Upcoming Encounters Date Type Department Care Team (Late st Contact Info) Description 05/11/2024 10:30 AM EST Office Visit Cardiology, [facility] [address] [place] [address] Augustin Mathis, [address] [place] [address] 08/03/2024 10:00 AM EDT Office Visit Urology, [facility] [address] [facility] [place] [address] Cameron Romeo MD [address] [place] [address] Health Maintenance Due Date Last Done Comments Alpha-1 Antitrypsin 1958 Adult Wellness Visit 2006 *COPD SEVERITY VERIFIED BY PFT 07/16/2020 COVID-19 Vaccine ( season) 2023 01/03/2023, 01/10/2021, 05/24/2020, Additional history exists Albumin/Creatinine Ratio 07/09/20242 024, [...] Completed , 01/23/2023, 12/07/2021, Additional history exists Hepatitis B Vaccine Completed 01/28/2024, 11/26/2023, 10/29/2023, Additional history exists HPV (Gardasil) Vaccine Aged Out No lo nger eligible based on patient's age to complete this topic MENINGOCOCCAL (MENACTRA/MENVEO) Aged Out No longer eligible based on patient's age to complete this topic documented as of this encounter Medical Devices Not on filedocumented as of this encounter Care Teams Trade Promotion Analyst Relationship Specialty Start Date End Date Jody Arora MD [address] [place] [address] [place] [phone] PCP - General Family Medicine 11/21/21 documented as of this encounter
--- OUTSIDE RECORDS SUMMARY | 2024-03-15 11:56 | External Medical Summary | Summary of Care ---
Author Name Unknown Organization [facility] Address [address] [facility] [place] [address] Phone [phone] Care Team Providers Care Practice Clinician Name Role Phone Jody Arora MD Primary Care Provide r Reason for Visit * Reason Onset Date Comments Advice 03/06/2024 Encounter Details Date Type Department Care Team (Late st Contact Info) Description 03/06/2024 Telephone Family [address] [place] [address] Jody Arora MD [address] [place] [address] [place] [address] Advice Allergies No known active allergiesdocumented as of this encounter (statuses as of 03/10/2024) Medications nitroglycerin (NITROSTAT) 0.[address] [...] :COPD, group C, by GOLD 2017 classification ([facility]) INHALE 1 DOSE BY MOUTH IN THE MORNING AND 1 AT BEDTIME 60 Each 4 Active Ventolin HFA 108 (90 Base) MCG/ACT Inhalation Aerosol SolutionIndication s:COPD, group D, by GOLD 2017 classification ([facility]) Inhale 2 Puffs by mouth every 4 [...] MG Oral Tablet (Ativan)Indication s:Anxiety,ESRD on dialysis ([facility]) 1 tablet 15-20 minutes before dialysis sessions [...] suspected opioid overdose. Seek immediate medical attention. [email or web address] I 1 Each 3 4 Active Morphine [...] (HCC),COPD, group C, by GOLD 2017 classification (HCC),[place]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) 2.5 mg NEBULIZER PRN 04/24/2023 04/23/2024 Active Albuterol Sulfate (Proventil) (2.5 MG/3ML) 0.083% inhalation solution 2.5 mgIndications:Chronic hypoxemic respiratory failure (HCC),COPD, group C, by GOLD 2017 classification (HCC),[place]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) 2.5 mg NEBULIZER PRN 04/24/2023 04/23/2024 Active documented as of this encounter (statuses as of 03/10/2024) Active Problems Problem Noted Date Diagnosed Date [...] mass 07/11/2017 Overview (01/12/2021): 2018 biopsy at [facility] per patient "kidney cancer". States he was advised he was not a surgical candidate. Carotid stenosis, right 07/11/2017 History of stroke 07/11/2017 Overview (02/12/2018): TIA vs lacunar stroke diagnosed on head CT in [place] Apr 2017. Follow up MRI [facility] no infarct. Anxiety 07/11/2017 HTN, goal below 140/90 08/02/2015 Coronary artery disease Dyslipidemia, goal LDL below 100 documented as of this encounter (statuses as of 03/10/2024) Resolved Problems Problem Noted Date Diagnosed Date [...] as of this encounter (statuses as of 03/10/2024) Immunizations Name Administration Dates Next Due COVID-19 [...] Telephone Encounter - Jody Arora MD - 03/10/2024 10:08 AM EST Pt is currently prescribed morphine by palliative which he can use prior to dialysis Buspar is likely causing the dreams - pt can try without the evening dose and see how his anxiety and the SE is * Telephone Encounter - Elisa Mcmahon CMA - 03/09/2024 3:04 PM EST He wants pain meds for the sores. He has to sit for hours during dialysis and that is bad. No fever, no cough, he does have some wheezing. He also has trouble swallowing. Bedtime meds: metoprolol, mucinex, buspar, eliquis, phos-lo @ 9PM B[place]esti 2 puffs @9 PM Patient and said HH has not been doing wound care. I refaxed the order from 02/19/24 to . * Telephone Encounter - Jody Arora [...] 05/11/2024 10:30 AM EST Office Visit Cardiology, [facility] [address] [place] [address] Augustin Mathis DO [address] [place] [address] 08/03/2024 10:00 AM EDT Office Visit Urology, [facility] [address] [place] [address] Cameron Romeo MD [address] [place] [address] Health Maintenance Due Date Last Done Comments [...] filedocumented as of this encounter Care Teams Practice Clinician Relationship Specialty Start Date End Date Jody Arora MD [address] [place] [address] [place] [phone] PCP - General Family Medicine 11/21/21 documented as of this encounter
--- OUTSIDE RECORDS SUMMARY | 2024-03-15 11:56 | External Medical Summary | Summary of Care ---
Author Name Unknown Organization [facility] Address [address] [place] [facility] [facility] [place] [address] Phone [phone] Care Team Providers Care Electrical Troubleshooter Name Role Phone Jody Arora MD Primary Care Provide r Reason for Visit * Reason Onset Date Comments Advice 03/06/2024 Encounter Details Date Type Department Care Team (Late st Contact Info) Description 03/06/2024 Telephone Family [address] [place] [address] Jody Arora MD [address] [place] [address] [place] [address] Advice Allergies No known active allergiesdocumented as of this encounter (statuses as of 03/09/2024) Medications nitroglycerin (NITROSTAT) 0.[address] [...] :COPD, group C, by GOLD 2017 classification ([facility]) INHALE 1 DOSE BY MOUTH IN THE MORNING AND 1 AT BEDTIME 60 Each 4 Active Ventolin HFA 108 (90 Base) MCG/ACT Inhalation Aerosol SolutionIndication s:COPD, group D, by GOLD 2017 classification ([facility] [...] MG Oral Tablet (Ativan)Indication s:Anxiety,ESRD on dialysis ([facility]) 1 [...] suspected opioid overdose. Seek immediate medical attention. [email or web address] I 1 Each 3 4 Active Morphine [...] (HCC),COPD, group C, by GOLD 2017 classification (HCC),[place]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) 2.5 mg NEBULIZER PRN 04/24/2023 04/23/2024 Active Albuterol Sulfate (Proventil) (2.5 MG/3ML) 0.083% inhalation solution 2.5 mgIndications:Chronic hypoxemic respiratory failure (HCC),COPD, group C, by GOLD 2017 classification (HCC),[place]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) 2.5 mg NEBULIZER PRN 04/24/2023 04/23/2024 Active documented as of this encounter (statuses as of 03/09/2024) Active Problems Problem Noted Date Diagnosed Date COPD, group D, by GOLD 2017 classification 04/29 Overview: Per COPD GOLD Classification [place] 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 States he was advised he was not a surgical candidate. Carotid stenosis, right 07/11/2017 History of stroke 07/11/2017 Overview (02/12/2018): TIA vs lacunar stroke diagnosed on head CT in [place] Apr 2017. Follow up MRI [facility] no infarct. Anxiety 07/11/2017 HTN, goal below 140/90 08/02/2015 Coronary artery disease Dyslipidemia, goal LDL below 100 documented as of this encounter (statuses as of 03/09/2024) Resolved Problems Problem Noted Date Diagnosed Date [...] as of this encounter (statuses as of 03/09/2024) Immunizations Name Administration Dates Next Due COVID-19 [...] 05/11/2024 10:30 AM EST Office Visit Cardiology, [facility] [address] [place] [address] Augustin Mathis, [address] [place] [address] 08/03/2024 10:00 AM EDT Office Visit Urology, [facility] [address] [place] [address] Cameron Romeo MD [address] [place] [address] Health Maintenance Due Date Last Done Comments [...] filedocumented as of this encounter Care Teams Electrical Troubleshooter Relationship Specialty Start Date End Date Jody Arora MD [address] [place] [address] [place] [address] PCP - General Family Medicine 11/21/21 documented as of this encounter
--- OUTSIDE RECORDS SUMMARY | 2024-03-15 11:56 | External Medical Summary | Summary of Care ---
Author Name Unknown Organization [facility] Address [address] [place] [facility] [place] [facility] [place] [address] Phone [phone] Care Team Providers Care Truck Driver Helper Name Role Phone Jody Arora MD Primary Care Provide r Reason for Visit * Reason Onset Date Comments Advice 03/06/2024 Encounter Details Date Type Department Care Team (Late st Contact Info) Description 03/06/2024 Telephone Family [address] [place] [address] Jody Arora MD [address] [place] [address] [place] [address] Advice Allergies No known [...] Oral Tablet (Ativan)Indication s:Anxiety,ESRD on dialysis ([facility]) 1 tablet 15-20 minutes before dialysis [...] suspected opioid overdose. Seek immediate medical attention. [email or web address] I 1 Each 3 4 Active Morphine [...] (HCC),COPD, group C, by GOLD 2017 classification (HCC),[place]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) 2.5 mg NEBULIZER PRN 04/24/2023 04/23/2024 Active Albuterol Sulfate (Proventil) (2.5 MG/3ML) 0.083% inhalation solution 2.5 mgIndications:Chronic hypoxemic respiratory failure (HCC),COPD, group C, by GOLD 2017 classification (HCC),[place]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) 2.5 mg NEBULIZER PRN 04/24/2023 04/23/2024 Active documented as of this encounter (statuses as of 03/10/2024) Active Problems Problem Noted Date Diagnosed Date COPD, group D, by GOLD 2017 classification 04/29 Overview: Per COPD GOLD Classification [place] 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 States he was advised he was not a surgical candidate. Carotid stenosis, right 07/11/2017 History of stroke 07/11/2017 Overview (02/12/2018): TIA vs lacunar stroke diagnosed on head CT in [place] Apr 2017. Follow up MRI [facility] no infarct. Anxiety 07/11/2017 HTN, [...] Telephone Encounter - Elisa Mcmahon CMA - 03/10/2024 1:46 PM EST I called and spoke to [facility]. They will try this. Recommended if the pain is still nor manageable contacting palliative. * Telephone Encounter - Jody Arora MD [...] 05/11/2024 10:30 AM EST Office Visit Card[facility], [facility] [address] [facility] [place] [address] Augustin Mathis, [address] [place] [address] 08/03/2024 10:00 AM EDT Office Visit Urology, [facility] [address] [place] [address] Cameron Romeo MD [address] [place] [address] Health Maintenance Due Date Last Done [...] filedocumented as of this encounter Care Teams Truck Driver Helper Relationship Specialty Start Date End Date Jody Arora MD [address] [place] [address] [place] [address] PCP - General Family Medicine 11/21/21 documented as of this encounter
--- OUTSIDE RECORDS SUMMARY | 2024-03-15 11:56 | External Medical Summary | Summary of Care ---
Author Name Unknown Organization [facility] Address [address] [place] [facility] [place] [place] [address] Phone [phone] Care Team Providers Care Pickle Pumper Name Role Phone Jody Arora MD Primary Care Provide r Reason for Visit * Reason Onset Date Comments Order Request 03/03/2024 Encounter Details Date Type Department Care Team (Late st Contact Info) Description 03/03/[address] [address] Joey Gonzalez [address] [place] [address] Order Request Allergies [...] suspected opioid overdose. Seek immediate medical attention. [email or web address] I 1 Each 3 4 Active Morphine [...] (HCC),COPD, group C, by GOLD 2017 classification (HCC),[place]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) 2.5 mg NEBULIZER PRN 04/24/2023 04/23/2024 Active Albuterol Sulfate (Proventil) (2.5 MG/3ML) 0.083% inhalation solution 2.5 mgIndications:Chronic hypoxemic respiratory failure (HCC),COPD, group C, by GOLD 2017 classification (HCC),[place] miners' lung (HCC) 2.5 mg NEBULIZER PRN 04/24/2023 04/23/2024 Active documented as of this encounter (statuses as of 03/03/2024) Active Problems Problem Noted Date Diagnosed Date COPD, group D, by GOLD 2017 classification 04/29 Overview: Per COPD GOLD Classification [place] 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 per patient "kidney cancer". States he was advised he was not a surgical candidate. Carotid stenosis, right 07/11/2017 History of stroke 07/11/2017 Overview (02/12/2018): TIA vs lacunar stroke diagnosed on head CT in [place] Apr 2017. Follow up MRI [facility] [...] No 02/10/2024 Are you (or your family) maurizoi eless or worried that you might be [...] AM EST Office Visit Cardiology, [facility] [address] [place] [address] Augustin Mathis, [address] [place] [address] 08/03/2024 10:00 AM EDT Office Visit Urology, [facility] [address] [facility] [place] [address] Cameron Romeo MD [address] [place] [address] Health Maintenance Due Date Last Done Comments [...] filedocumented as of this encounter Care Teams Pickle Pumper Relationship Specialty Start Date End Date Jody Arora MD [address] [place] [address] [place] [phone] PCP - General Family Medicine 11/21/21 documented as of this encounter
--- OUTSIDE RECORDS SUMMARY | 2024-03-15 11:56 | External Medical Summary | Summary of Care ---
Author Name Unknown Organization [facility] Address [address] [place] [facility] [place] [address] Phone [phone] Care Team Providers Care Student Services Director Name Role Phone Jody Arora MD Primary Care Provide r Reason for Visit * Reason Onset Date Comments Order Request 03/03/2024 Encounter Details Date Type Department Care Team (Late st Contact Info) Description 03/03/[address] [phone] Joey Gonzalez [address] [place] [address] Order Request Allergies [...] 2017 classification ([facility]) Inhale 3 mL via nebulizer every [...] Tablet (Ativan)Indication s:Anxiety,ESRD on dialysis ([facility]) 1 tablet 15-20 minutes before dialysis [...] suspected opioid overdose. Seek immediate medical attention. [email or web address] I 1 Each 3 4 Active Morphine [...] (HCC),COPD, group C, by GOLD 2017 classification (HCC),[place] miners' lung (HCC) 2.5 mg NEBULIZER PRN 04/24/2023 04/23/2024 Active Albuterol Sulfate (Proventil) (2.5 MG/3ML) 0.083% inhalation solution 2.5 mgIndications:Chronic hypoxemic respiratory failure (HCC),COPD, group C, by GOLD 2017 classification (HCC),[place] miners' lung (HCC) 2.5 mg NEBULIZER PRN 04/24/2023 04/23/2024 Active documented as of this encounter (statuses as of 03/03/2024) Active Problems Problem Noted Date Diagnosed Date COPD, group D, by GOLD 2017 classification 04/29 Overview: Per COPD GOLD Classification [place] 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 States he was advised he was not a surgical candidate. Carotid stenosis, right 07/11/2017 History of stroke 07/11/2017 Overview (02/12/2018): TIA vs lacunar stroke diagnosed on head CT in [place] Apr 2017. Follow up MRI [facility] [...] Office Visit Cardiology, [facility] [address] [place] [address] Augustin Mathis, [address] [place] [address] 08/03/2024 10:00 AM EDT Office Visit Urology, [facility] [address] [facility] [place] [address] Cameron Romeo MD [address] [place] [address] Health Maintenance Due Date Last Done Comments [...] filedocumented as of this encounter Care Teams Student Services Director Relationship Specialty Start Date End Date Jody Arora MD [address] [place] [address] [place] [phone] PCP - General Family Medicine 11/21/21 documented as of this encounter
--- OUTSIDE RECORDS SUMMARY | 2024-03-15 11:56 | External Medical Summary | Summary of Care ---
Author Name Unknown Organization [facility] Address [address] [facility] [address] Phone [phone] Care Team Providers Care Rubber Printing Machine Operator Name Role Phone Jody Arora MD Primary Care Provide r Reason for Visit * Reason Onset Date Comments Order Request 03/03/2024 Encounter Details Date Type Department Care Team (Late st Contact Info) Description 03/03/[address] [address] Joey Gonzalez [address] [place] [address] Order Request Allergies [...] by GOLD 2017 classification ([facility]) INHALE 1 DOSE BY MOUTH IN THE MORNING AND 1 AT BEDTIME 60 Each 4 Active Ventolin HFA 108 (90 Base) MCG/ACT Inhalation Aerosol SolutionIndication s:COPD, group D, by GOLD 2017 classification ([facility]) Inhale 2 Puffs by mouth every 4 [...] MG Oral Tablet (Ativan)Indication s:Anxiety,ESRD on dialysis ([facility]) 1 tablet 15-20 minutes before dialysis sessions [...] suspected opioid overdose. Seek immediate medical attention. [email or web address] I 1 Each 3 4 Active Morphine [...] (HCC),COPD, group C, by GOLD 2017 classification (HCC),[place] miners' lung (HCC) 2.5 mg NEBULIZER PRN 04/24/2023 04/23/2024 Active Albuterol Sulfate (Proventil) (2.5 MG/3ML) 0.083% inhalation solution 2.5 mgIndications:Chronic hypoxemic respiratory failure (HCC),COPD, group C, by GOLD 2017 classification (HCC),[place] miners' lung (HCC) 2.5 mg NEBULIZER PRN 04/24/2023 04/23/2024 Active documented as of this encounter (statuses as of 03/03/2024) Active Problems Problem Noted Date Diagnosed Date COPD, group D, by GOLD 2017 classification 04/29 Overview: Per COPD GOLD Classification [place] 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 States he was advised he was not a surgical candidate. Carotid stenosis, right 07/11/2017 History of stroke 07/11/2017 Overview (02/12/2018): TIA vs lacunar stroke diagnosed on head CT in [place] Apr 2017. Follow [place] [...] 01/15/2018 12/07/2021 Overview (01/15/2018): Echo 12/2017. Dr Zaragoaz. Anemia of chronic renal fail ure, stage [...] Miscellaneous Notes * Telephone Encounter - Mary Smith LPN - 03/03/2024 2:56 PM EST Order faxed to [facility]. * Telephone Encounter - Joey Gonzalez CRNP - 03/03/2024 2:36 PM EST DME ordered signed for alternating pressure pad. Can you please fax this to [facility]? Thanks! documented in this encounter Plan of Treatment Upcoming Encounters Date Type Department Care Team (Late st Contact Info) Description 05/11/2024 10:30 AM EST Office Visit Cardiology, [facility] [address] [place] [address] Augustin Mathis, [address] [place] [address] 08/03/2024 10:00 AM EDT Office Visit Urology, [facility] [address] [place] [address] Cameron Romeo MD [address] [place] [address] Health Maintenance Due Date Last Done Comments Alpha-1 Antitrypsin 1958 Adult Wellness Visit 2006 *COPD SEVERITY VERIFIED BY PFT 07/16/2020 COVID-19 Vaccine ( season) 2023 01/03/2023, 01/10/2021, 05/24/2020, Additional history exists Albumin/Creatinine Ratio 07/09/2024 024, [...] filedocumented as of this encounter Care Teams Rubber Printing Machine Operator Relationship Specialty Start Date End Date Jody Arora MD [address] [place] [address] [place] [address] PCP - General Family Medicine 11/21/21 documented as of this encounter
--- OUTSIDE RECORDS SUMMARY | 2024-03-15 11:56 | External Medical Summary | Summary of Care ---
Author Name Unknown Organization [facility] Address [address] [place] [address] Phone [phone] Care Team Providers Care Digital Sales Manager Name Role Phone Jody Arora MD Primary Care Provide r Encounter Details Date Type Department Care Team (Late st Contact Info) Description 03/03/2024 Orders Only Family Medicine [address] [address] [place] [address] Skin ulcer of sacrum, limited to breakdown of skin ([facility])*; Ambulatory dysfunction Allergies No known active allergiesdocumented as of [...] Oral Tablet (Ativan)Indication s:Anxiety,ESRD on dialysis ([facility]) [...] suspected opioid overdose. Seek immediate medical attention. [email or web address] I 1 Each 3 4 Active Morphine [...] (HCC),COPD, group C, by GOLD 2017 classification (HCC),[place] miners' lung (HCC) 2.5 mg NEBULIZER PRN 04/24/2023 04/23/2024 Active Albuterol Sulfate (Proventil) (2.5 MG/3ML) 0.083% inhalation solution 2.5 mgIndications:Chronic hypoxemic respiratory failure (HCC),COPD, group C, by GOLD 2017 classification (HCC),[place] miners' lung (HCC) 2.5 mg NEBULIZER PRN 04/24/2023 04/23/2024 Active documented as of this encounter (statuses as of 03/03/2024) Active Problems Problem Noted Date Diagnosed Date COPD, group D, by GOLD 2017 classification 04/29 Overview: Per COPD GOLD Classification [place]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 States he was advised he was not a surgical candidate. Carotid stenosis, right 07/11/2017 History of stroke 07/11/2017 Overview (02/12/2018): TIA vs lacunar stroke diagnosed on head CT in [place] Apr 2017. Follow [facility] [...] 05/11/2024 10:30 AM EST Office Visit Cardiology, [facility] [address] [place] [address] Augustin Mathis, [address] [place] [address] 08/03/2024 10:00 AM EDT Office Visit Urology, [facility] [address] [place] [address] Cameron Romeo MD [address] [place] [phone] Health Maintenance Due Date Last Done Comments [...] of this encounter Visit Diagnoses Diagnosis Skin ulcer of sacrum, limited to breakdown of skin (HCC)- Primary Ambulatory dysfunction documented in this encounter Care Teams Digital Sales Manager Relationship Specialty Start Date End Date Jody Arora MD [address] [place] [address] [place] [phone] PCP - General Family Medicine 11/21/21 documented as of this encounter
--- OUTSIDE RECORDS SUMMARY | 2024-03-15 11:56 | External Medical Summary | Summary of Care ---
Author Name Unknown Organization [facility] Address [address] [place] [facility] [place] [address] Phone [phone] Care Team Providers Care Broker Associate Name Role Phone Jody Arora MD Primary Care Provide r Reason for Visit * Reason Onset Date Comments FYI 03/13/2024 Encounter Details Date Type Department Care Team (Late st Contact Info) Description 03/13/[address] [place] [place] [address] Jody Arora MD [address] [place] [address] [place] [address] FYI Allergies No known active allergiesdocumented as of this encounter (statuses as of 03/13/2024) Medications nitroglycerin (NITROSTAT) 0.[address] [...] :COPD, group C, by GOLD 2017 classification ([facility]) INHALE 1 DOSE BY MOUTH IN THE MORNING AND 1 AT BEDTIME 60 Each 4 Active Ventolin HFA 108 (90 Base) MCG/ACT Inhalation Aerosol SolutionIndication s:COPD, group D, by GOLD 2017 classification ([facility]) Inhale 2 Puffs by mouth [...] MG Oral Tablet (Ativan)Indication s:Anxiety,ESRD on dialysis ([facility]) 1 tablet 15-20 minutes before [...] suspected opioid overdose. Seek immediate medical attention. [email or web address] I 1 Each 3 4 Active Morphine [...] (HCC),COPD, group C, by GOLD 2017 classification (HCC),[place] miners' lung (HCC) 2.5 mg NEBULIZER PRN 04/24/2023 04/23/2024 Active Albuterol Sulfate (Proventil) (2.5 MG/3ML) 0.083% inhalation solution 2.5 mgIndications:Chronic hypoxemic respiratory failure (HCC),COPD, group C, by GOLD 2017 classification (HCC),[place] miners' lung (HCC) 2.5 mg NEBULIZER PRN 04/24/2023 04/23/2024 Active documented as of this encounter (statuses as of 03/13/2024) Active Problems Problem Noted Date Diagnosed Date COPD, group D, by GOLD 2017 classification 04/29 Overview: Per COPD GOLD Classification [place]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 States he was advised he was not a surgical candidate. Carotid stenosis, right 07/11/2017 History of stroke 07/11/2017 Overview (02/12/2018): TIA vs lacunar stroke diagnosed on head CT in [place] Apr 2017. Follow up MRI [facility] no infarct. Anxiety 07/11/2017 HTN, goal below 140/90 08/02/2015 Coronary artery disease Dyslipidemia, goal LDL below 100 documented as of this encounter (statuses as of 03/13/2024) Resolved Problems Problem Noted Date Diagnosed Date [...] as of this encounter (statuses as of 03/13/2024) Immunizations Name Administration Dates Next Due COVID-19 [...] 02/10/2024 Does the household have a re lar [...] encounter Miscellaneous Notes * Telephone Encounter - Ashli Schwartz OSA - 03/13/2024 10:55 AM EST Reason for patient's call: Chandu Broussard [phone] Caller was transferred to No Answer at the nurse line Please call Aarti for Pt report documented in this encounter Plan of Treatment Upcoming Encounters Date Type Department Care Team (Late st Contact Info) Description 05/11/2024 10:30 AM EST Office Visit Cardiology, [facility] [address] [place] [address] Augustin Mathis, [address] [place] [address] 08/03/2024 10:00 AM EDT Office Visit Urology, [facility] [address] [place] [address] Cameron Romeo MD [address] [place] [address] Health Maintenance Due Date Last Done Comments [...] Td or Tdap) 10/24/2028 10/24/2018 Pneumococcal Vaccine: 50+ Years Completed 01/16/2018, 01/16/2018, 02/09/2015 Zoster Vaccines [...] filedocumented as of this encounter Care Teams Broker Associate Relationship Specialty Start Date End Date Jody Arora MD [address] [place] [address] [place] [phone] PCP - General Family Medicine 11/21/21 documented as of this encounter
--- OUTSIDE RECORDS SUMMARY | 2024-03-15 11:56 | External Medical Summary | Summary of Care ---
Author Name Unknown Organization [facility] Address [address] [place] [facility] [place] [place] [address] Phone [phone] Care Team Providers Care Combination Welder Apprentice Name Role Phone Jody Arora MD Primary Care Provide r Reason for Visit * Reason Onset Date Comments Order Request 03/03/2024 Encounter Details Date Type Department Care Team (Late st Contact Info) Description 03/03/[address] [address] Joey Gonzalez [address] [place] [address] Order Request Allergies [...] ([facility]) Inhale 3 mL via nebulizer every [...] Tablet (Ativan)Indication s:Anxiety,ESRD on dialysis ([facility]) 1 tablet 15-20 minutes before dialysis [...] suspected opioid overdose. Seek immediate medical attention. 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 States he was advised he was not a surgical candidate. Carotid stenosis, right 07/11/2017 History of stroke 07/11/2017 Overview (02/12/2018): TIA vs lacunar stroke diagnosed on head CT in [place] Apr 2017. Follow up MRI [facility] [...] 05/11/2024 10:30 AM EST Office Visit Cardiology, [facility] [address] [place] [address] Augustin Mathis, [address] [place] [address] 08/03/2024 10:00 AM EDT Office Visit Urology, [facility] 132 [facility] [place] [address] Cameron Romeo MD [address] [place] [address] Health Maintenance Due Date Last Done Comments [...] filedocumented as of this encounter Care Teams Combination Welder Apprentice Relationship Specialty Start Date End Date Jody Arora MD [address] [place] [address] [place] [phone] PCP - General Family Medicine 11/21/21 documented as of this encounter
--- OUTSIDE RECORDS SUMMARY | 2024-03-15 11:57 | External Medical Summary | Summary of Care ---
Author Name Unknown Organization [facility] Address [address] [facility] [place] [address] Phone [phone] Care Team Providers Care Vehicle Service Agent Name Role Phone Jody Arora MD Primary Care Provide r Reason for Visit * Reason Onset Date Comments Home Health 02/28/2024 Encounter Details Date Type Department Care Team (Late st Contact Info) Description 02/28/2024 Telephone Family [address] [place] [address] Jody Arora MD [address] [place] [address] [place] [address] Home Health Allergies No known active allergiesdocumented as of this encounter (statuses as of 02/28/2024) Medications nitroglycerin (NITROSTAT) 0.[address] [...] :COPD, group C, by GOLD 2017 classification ([facility]) INHALE 1 DOSE BY MOUTH IN THE MORNING AND 1 AT BEDTIME 60 Each 4 Active Ventolin HFA 108 (90 Base) MCG/ACT Inhalation Aerosol SolutionIndication s:COPD, group D, by GOLD 2017 classification ([facility]) Inhale 2 Puffs by mouth every [...] MG Oral Tablet (Ativan)Indication s:Anxiety,ESRD on dialysis ([facility]) 1 tablet 15-20 minutes before dialysis sessions [...] suspected opioid overdose. Seek immediate medical attention. 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 States he was advised he was not a surgical candidate. Carotid stenosis, right 07/11/2017 History of stroke 07/11/2017 Overview (02/12/2018): TIA vs lacunar stroke diagnosed on head CT in [place] Apr 2017. Follow up MRI [facility] no infarct. Anxiety 07/11/2017 HTN, goal below 140/90 08/02/2015 Coronary artery disease Dyslipidemia, goal LDL below 100 documented as of this encounter (statuses as of 02/28/2024) Resolved Problems Problem Noted Date Diagnosed Date [...] as of this encounter (statuses as of 02/28/2024) Immunizations Name Administration Dates Next Due COVID-19 [...] Telephone Encounter - Jody Arora MD - 02/28/2024 2:35 PM EST Yes okay with the plan for the wound care * Telephone Encounter - Tigist Connor LPN - 02/28/2024 1:22 PM EST HH Concerns JUAN ANTONIO Gutierrez, Calling from: [facility] Report/Concerns of: Open area to right buttocks. Symptoms: pain and redness Vitals: T 97.8 P 64 RR 18 BP 98/60 SP O2 96% RA Lung sounds wheezes bilaterally. States this is typical for pt. Weight 196 lbs. Narrative: Reports that the pt has an open area to right buttocks 1 x 1.5 cm. Pt reports that the are is painful when sitting on the area and has redness around the area. Does not appear infected, just red from pressure. Brenda did educate the pt on the use of a cushion. Did apply barrier cream that the pt had in his home and a silicon border dressing. Asks if PCP is agreeable with barrier cream and silicon border dressing, change every 3-4 days and PRN soilage? Reports that the the physical therapist documented 02/20 that the pt was having hallucinations. Pointing to the TV and asking what the lady said even though the TV was off and seeing a little girl in the room that was not there. Did not observe pt hallucinating today. Please advise. Call back JUAN ANTONIO Gutierrez with any advice or orders at [phone] Please fax new orders to [facility] [phone] * Telephone Encounter - Tanja Tadeo OSA - 02/28/2024 1:18 PM EST Reason for patient's call: [facility] Brenda Caller was transferred to [facility] at the nurse line. documented in this encounter Plan of Treatment Upcoming Encounters Date Type Department Care Team (Late st Contact Info) Description 03/04/2024 3:30 PM EST Telemedicine Palliative Medicine [facility] [address] [place] [address] Brielle Schmidt MD [address] [place] [address] 05/11/2024 10:30 AM EST Office Visit Cardiology, [facility] [address] [facility] [place] [address] Augustin Mathis, 132 [facility] [place] [address] 08/03/2024 10:00 AM EDT Office Visit Urology, [facility] [address] [facility] [place] [address] Cameron Romeo MD [address] [place] [address] Health Maintenance Due Date Last Done Comments Alpha-1 Antitrypsin 1958 Adult Wellness Visit 2006 *COPD SEVERITY VERIFIED BY PFT 07/16/2020 COVID-19 Vaccine ( season) 2023 01/03/2023, 01/10/2021, 05/24/2020, Additional history exists Albumin/Creatinine Ratio 07/09/202407/09/2 024, 08/08/2022, 12/07/2021, Additional [...] filedocumented as of this encounter Care Teams Vehicle Service Agent Relationship Specialty Start Date End Date Jody Arora MD [address] [place] [address] [place] [phone] PCP - General Family Medicine 11/21/21 documented as of this encounter
--- OUTSIDE RECORDS SUMMARY | 2024-03-15 11:57 | External Medical Summary | Summary of Care ---
Author Name Unknown Organization [facility] Address [address] [facility] [place] [address] Phone [phone] Care Team Providers Care Television Repairer Name Role Phone Jody Arora MD Primary Care Provide r Reason for Visit * Reason Onset Date Comments Home Health 02/28/2024 Encounter Details Date Type Department Care Team (Late st Contact Info) Description 02/28/2024 Telephone Family [address] [place] [address] Jody Arora MD [address] [place] [address] [place] [address] Home Health Allergies No known active allergiesdocumented as of this encounter (statuses as of 03/02/2024) Medications nitroglycerin (NITROSTAT) 0.[address] [...] 2017 classification ([facility]) INHALE 1 DOSE BY MOUTH IN THE MORNING AND 1 AT BEDTIME 60 Each 4 Active Ventolin HFA 108 (90 Base) MCG/ACT Inhalation Aerosol SolutionIndication s:COPD, group D, by GOLD 2017 classification ([facility]) Inhale 2 Puffs by mouth every [...] Tablet (Ativan)Indication s:Anxiety,ESRD on dialysis ([facility]) 1 tablet 15-20 minutes before dialysis [...] suspected opioid overdose. Seek immediate medical attention. 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 States he was advised he was not a surgical candidate. Carotid stenosis, right 07/11/2017 History of stroke 07/11/2017 Overview (02/12/2018): TIA vs lacunar stroke diagnosed on head CT in [place] Apr 2017. Follow up MRI [facility] no infarct. Anxiety 07/11/2017 HTN, goal below 140/90 08/02/2015 Coronary artery disease Dyslipidemia, goal LDL below 100 documented as of this encounter (statuses as of 03/02/2024) Resolved Problems Problem Noted Date Diagnosed Date [...] as of this encounter (statuses as of 03/02/2024) Immunizations Name Administration Dates Next Due COVID-19 [...] Telephone Encounter - Elisa Mcmahon CMA - 03/02/2024 2:37 PM EST I tried to call Brenda but lost her. Faxed Dr. Soares note to [facility] * Telephone Encounter - Jody Arora MD - 02/28/2024 2:35 PM EST Yes okay with the plan for the wound care * Telephone Encounter - Tigist Connor LPN - 02/28/2024 1:22 PM EST HH Concerns JUAN ANTONIO Gutierrez, Calling from: [facility] Report/Concerns of: Open area to right buttocks. [...] Gutierrez with any advice or orders at [phone] Please fax new orders to [facility] [phone] * Telephone Encounter - Tanja Tadeo OSA - 02/28/2024 1:18 PM EST Reason for patient's call: [facility] Brenda Caller was transferred to [facility] at the nurse line. documented in this encounter Plan of Treatment Upcoming Encounters Date Type Department Care Team (Late st Contact Info) Description 03/04/2024 3:30 PM EST Telemedicine Palliative Medicine [facility] [address] [place] [address] Brielle Schmidt MD [address] [place] [address] [place] [address] 05/11/2024 10:30 AM EST Office Visit Cardiology, [facility] [address] [facility] [place] [address] Augustin Mahtis, 132 [facility] [place] [address] 08/03/2024 10:00 AM EDT Office Visit Urology, [facility] 132 [facility] [place] [address] Cameron Romeo MD [address] [place] [address] Health Maintenance Due Date Last Done Comments [...] filedocumented as of this encounter Care Teams Television Repairer Relationship Specialty Start Date End Date Jody Arora MD [address] [place] [address] [place] [address] PCP - General Family Medicine 11/21/21 documented as of this encounter
--- OUTSIDE RECORDS SUMMARY | 2024-03-15 11:57 | External Medical Summary | Summary of Care ---
Author Name Unknown Organization [facility] Address [address] [place] [address] Phone [phone] Care Team Providers Care Ceramic Engineering Professor Name Role Phone Jody Arora MD Primary Care Provide r Encounter Details Date Type Department Care Team (Late st Contact Info) Description 02/19/2024 Telephone Palliative Medicine [facility] [address] [place] [address] Brielle Schmidt MD [address] [place] [address] Allergies No known active allergiesdocumented as of this encounter (statuses as of 02/19/2024) Medications nitroglycerin (NITROSTAT) 0.[address] [...] :COPD, group C, by GOLD 2017 classification ([facility]) INHALE 1 DOSE BY MOUTH IN THE MORNING AND 1 AT BEDTIME 60 Each 4 Active Ventolin HFA 108 (90 Base) MCG/ACT Inhalation Aerosol SolutionIndication s:COPD, group D, by GOLD 2017 classification ([facility] [...] MG Oral Tablet (Ativan)Indication s:Anxiety,ESRD on dialysis ([facility]) 1 tablet 15-20 minutes [...] suspected opioid overdose. Seek immediate medical attention. [email or web address] I 1 Each 3 4 Active Morphine [...] noon and 1 Tablet in the evening. 90 Tablet 1 4 Active Doxycycline Hyclate 100 MG Oral CapsuleIndications :Leg swelling,Leg erythema Take 1 Capsule by mouth in the morning and 1 Capsule before bedtime. Do all this for 7 days. Take for 7 days. 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) 2.5 mg NEBULIZER PRN 04/24/2023 04/23/2024 Active Albuterol Sulfate (Proventil) (2.5 MG/3ML) 0.083% inhalation solution 2.5 mgIndications:Chronic hypoxemic respiratory failure (HCC),COPD, group C, by GOLD 2017 classification ([facility]),[place]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 States he was advised he was not a surgical candidate. Carotid stenosis, right 07/11/2017 History of stroke 07/11/2017 Overview (02/12/2018): TIA vs lacunar stroke diagnosed on head CT in [place] Apr 2017. Follow up MRI [facility] no infarct. Anxiety 07/11/2017 HTN, goal below 140/90 08/02/2015 Coronary artery disease Dyslipidemia, goal LDL below 100 documented as of this encounter (statuses as of 02/19/2024) Resolved Problems Problem Noted Date Diagnosed Date [...] as of this encounter (statuses as of 02/19/2024) Immunizations Name Administration Dates Next Due COVID-19 [...] encounter Miscellaneous Notes * Telephone Encounter - Brielle Schmidt MD - 02/19/2024 3:16 PM EST Pts daughter cancelled video today but sent me a TT that he was late at dialysis. He has been falling. They are still not ready for hospice. Morphine has been helpful. Will continue to follow along until they are ready. documented in this encounter Plan of Treatment Upcoming Encounters Date Type Department Care Team (Late st Contact Info) Description 02/26/2024 1:40 PM EST Office Visit Family Medicine [address] [place] [address] Jody Arora MD [address] [place] [address] [place] [address] 05/11/2024 10:30 AM EST Office Visit Cardiology, [facility] [address] [place] [address] Augustin Mathis, 132 [place] [address] 08/03/2024 10:00 AM EDT Office Visit Urology, [facility] [address] [place] [address] Cameron Romeo MD [address] [place] [address] Health Maintenance Due Date Last Done Comments [...] filedocumented as of this encounter Care Teams Ceramic Engineering Professor Relationship Specialty Start Date End Date Jody Arora MD [address] [place] [address] [place] [phone] PCP - General Family Medicine 11/21/21 documented as of this encounter
--- OUTSIDE RECORDS SUMMARY | 2024-03-15 11:57 | External Medical Summary | Summary of Care ---
Author Name Unknown Organization [facility] Address [address] [place] [address] Phone [phone] Care Team Providers Care Ethics Officer Name Role Phone Jody Arora MD Primary Care Provide r Reason for Visit * Reason Onset Date Comments Palliative Care Follow-up 02/19/2024 Encounter Details Date Type Department Care Team (Late st Contact Info) Description 02/19/2024 Telephone Palliative Medicine [facility] [address] [place] [address] Brielle Schmidt MD [address] [place] [id number] Palliative Care Follow-up Allergies No known active allergiesdocumented as of this encounter (statuses as of 02/20/2024) Medications nitroglycerin (NITROSTAT) 0.[address] 1 Tablet under the tongue every 5 minutes as needed for Pain, Chest. 9 Active Ipratropium-Albute rol 0.5-2.5 (3) MG/3ML Inhalation Solution (Duoneb)Indication s:Chronic hypoxemic respiratory failure (HCC),COPD, group C, by GOLD 2017 classification ([facility]) Inhale 3 mL via nebulizer every 4 [...] :COPD, group C, by GOLD 2017 classification ([facility]) INHALE 1 DOSE BY MOUTH IN THE MORNING AND 1 AT BEDTIME 60 Each 4 Active Ventolin HFA 108 (90 Base) MCG/ACT Inhalation Aerosol SolutionIndication s:COPD, group D, by GOLD 2017 classification ([facility]) [...] MG Oral Tablet (Ativan)Indication s:Anxiety,ESRD on dialysis ([facility]) 1 tablet 15-20 minutes before dialysis sessions [...] suspected opioid overdose. Seek immediate medical attention. [email or web address] I 1 Each 3 4 Active Morphine [...] (HCC),COPD, group C, by GOLD 2017 classification (HCC),[place] miners' lung (HCC) 2.5 mg NEBULIZER PRN 04/24/2023 04/23/2024 Active Albuterol Sulfate (Proventil) (2.5 MG/3ML) 0.083% inhalation solution 2.5 mgIndications:Chronic hypoxemic respiratory failure (HCC),COPD, group C, by GOLD 2017 classification (HCC),[place] miners' lung (HCC) 2.5 mg NEBULIZER PRN 04/24/2023 04/23/2024 Active documented as of this encounter (statuses as of 02/20/2024) Active Problems Problem Noted Date Diagnosed Date COPD, group D, by GOLD 2017 classification 04/29 Overview: Per COPD GOLD Classification [place] 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 States he was advised he was not a surgical candidate. Carotid stenosis, right 07/11/2017 History of stroke 07/11/2017 Overview (02/12/2018): TIA vs lacunar stroke diagnosed on head CT in [place] Apr 2017. Follow up MRI [facility] no infarct. Anxiety 07/11/2017 HTN, goal below 140/90 08/02/2015 Coronary artery disease Dyslipidemia, goal LDL below 100 documented as of this encounter (statuses as of 02/20/2024) Resolved Problems Problem Noted Date Diagnosed Date [...] as of this encounter (statuses as of 02/20/2024) Immunizations Name Administration Dates Next Due COVID-19 [...] encounter Miscellaneous Notes * Telephone Encounter - Cherise Pascual LPN - 02/20/2024 11:23 AM EST Spoke with daughter Scheduled 03/04 at 330pm * Telephone Encounter - Brielle Schmidt MD [...] PM EST Office Visit Family Medicine [address] [place] [address] Jody Arora MD [address] [place] [address] [place] [address] 03/04/2024 3:30 PM EST Telemedicine Palliative Medicine [facility] 200 [place] [id number] Brielle [facility] [address] [facility] [address] 05/11/2024 10:30 AM EST Office Visit Cardiology, [facility] [address] [place] [address] Augustin Mathis, [address] [place] [address] 08/03/2024 10:00 AM EDT Office Visit Urology, [facility] [address] [place] [address] Cameron Romeo MD [address] [place] [address] Health Maintenance Due Date Last Done Comments [...] filedocumented as of this encounter Care Teams Ethics Officer Relationship Specialty Start Date End Date Jody Arora MD [address] [place] [address] [place] [phone] PCP - General Family Medicine 11/21/21 documented as of this encounter
--- OUTSIDE RECORDS SUMMARY | 2024-03-15 11:57 | External Medical Summary | Summary of Care ---
Author Name Unknown Organization [facility] Address [address] [place] [place] [place] [address] Phone [phone] Care Team Providers Care Collar Turner Operator Name Role Phone Jody Arora MD Primary Care Provide r Reason for Visit * Reason Onset Date Comments Home Health 02/24/2024 Encounter Details Date Type Department Care Team (Late st Contact Info) Description 02/24/2024 Telephone Family [address] [place] [address] Jody Arora MD [address] [place] [address] [place] [address] Home Health Allergies No known active allergiesdocumented as of this encounter (statuses as of 02/24/2024) Medications nitroglycerin (NITROSTAT) 0.[address] [...] suspected opioid overdose. Seek immediate medical attention. [email or web address] I 1 Each 3 4 Active Morphine [...] before bedtime. 180 Tablet 1 4 Active Doxycycline Hyclate 100 MG Oral CapsuleIndications :Leg swelling,Leg erythema Take 1 Capsule by mouth in the morning and 1 Capsule before bedtime. Do all this for 7 days. Take for 7 days. 14 Capsule 4 024 Active Midodrine HCl 2.5 MG Oral Tablet [...] (HCC),COPD, group C, by GOLD 2017 classification (HCC),[place] [facility]' lung (HCC) 2.5 mg NEBULIZER PRN 04/24/2023 04/23/2024 Active Albuterol Sulfate (Proventil) (2.5 MG/3ML) 0.083% inhalation solution 2.5 mgIndications:Chronic hypoxemic respiratory failure (HCC),COPD, group C, by GOLD 2017 classification (HCC),[place] miners' lung (HCC) 2.5 mg NEBULIZER PRN 04/24/2023 04/23/2024 Active documented as of this encounter (statuses as of 02/24/2024) Active Problems Problem Noted Date Diagnosed Date COPD, group D, by GOLD 2017 classification 04/29 Overview: Per COPD GOLD Classification [place] 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 per patient "kidney cancer". States he was advised he was not a surgical candidate. Carotid stenosis, right 07/11/2017 History of stroke 07/11/2017 Overview (02/12/2018): TIA vs lacunar stroke diagnosed on head CT in [place] Apr 2017. Follow up MRI [facility] no infarct. Anxiety 07/11/2017 HTN, goal below 140/90 08/02/2015 Coronary artery disease Dyslipidemia, goal LDL below 100 documented as of this encounter (statuses as of 02/24/2024) Resolved Problems Problem Noted Date Diagnosed Date [...] as of this encounter (statuses as of 02/24/2024) Immunizations Name Administration Dates Next Due COVID-19 [...] No 02/10/2024 Does the household have a [facility] source of income? (Household - for [...] Telephone Encounter - Jody Arora MD - 02/24/2024 1:52 PM EST Considering pt does not want to go to the ER - Rib xray placed * Telephone Encounter - Madison Lubin LPN - 02/24/2024 1:22 PM EST HH Concerns Mallorie, Calling from: [facility] Report/Concerns of: Fall Symptoms: Pain left Rib area Vitals: T 97.5 P 89 RR BP 90/58, left arm SP O2 84% 4LPM, Not having any difficult breathing, no SOB-- having difficulty getting the reading,does not feel it's accurate. Resting in chest does not appear to be in distress. Narrative: Mallorie is with patient at the time of call. Mallorie reporting that patient fell this morning around 3am. stated that she believes that he was carrying a blanket and he tripped over it in the kitchen. EMS was called, patient declined to go to the ER for evaluation. He is now complaining of left rib pain rated at a 6-7/10. Did not do a whole lot today for HH visit, not feeling up to it due to the pain. She stated that his speech seemed a little garbled but did not think so. Mallorie educated him on having his walker with him at all times. He sleeps in a different room than his and tends wanders around at night. Patient is scheduled for an appointment on 02/25 with PCP. Spoke with Elisa in office, she spoke to Dr. Arora, she ask for me to [facility] Call back with any advice * Telephone Encounter - Yuli Rodriguez OSA - 02/24/2024 1:20 PM EST Calling to inform the nurse that the pt had a fall this morning. Transferred to nurse line documented in this encounter Plan of Treatment Upcoming Encounters Date Type Department Care Team (Late st Contact Info) Description 02/26/2024 1:40 PM EST Office Visit Family Medicine [address] [phone] Jody Arora MD [address] [place] [address] [place] [phone] 03/04/2024 3:30 PM EST Telemedicine Palliative Medicine [facility] [address] [place] [phone] Brielle Schmidt MD [address] [place] [address] 05/11/2024 10:30 AM EST Office Visit Cardiology, [facility] [address] [place] [address] Augustin Mathis DO [address] [place] [address] 08/03/2024 10:00 AM EDT Office Visit Urology, [facility] [address] [place] [address] Cameron Romeo MD [address] [place] [address] Scheduled Orders Name Type Priority Associated Diagnoses Orde r Schedule XR RIBS BILATERAL 3 VIEWS Medical Imaging Routine Rib pain Expected: 02/24/2024, Expires: 03/26/2025 Health Maintenance Due Date Last Done Comments [...] as of this encounter Visit Diagnoses Diagnosis Rib pain- Primary Chest pain, unspecified documented in this encounter Care Teams Collar Turner Operator Relationship Specialty Start Date End Date Jody Arora MD [address] [place] [address] [place] [address] PCP - General Family Medicine 11/21/21 documented as of this encounter
--- OUTSIDE RECORDS SUMMARY | 2024-03-15 11:57 | External Medical Summary | Summary of Care ---
Author Name Unknown Organization [facility] Address [address] [facility] [place] [address] Phone [phone] Care Team Providers Care Marketing Effectiveness Manager Name Role Phone Jody Arora MD Primary Care Provide r Reason for Visit * Reason Onset Date Comments Home Health 02/24/2024 Encounter Details Date Type Department Care Team (Late st Contact Info) Description 02/24/2024 Telephone Family [address] [place] [address] Jody Arora MD [address] [place] [address] [place] [address] Home Health Allergies No [...] 2017 classification ([facility]) Inhale 3 mL via [...] GOLD 2017 classification ([facility]) INHALE 1 DOSE BY MOUTH IN THE MORNING AND 1 AT BEDTIME 60 Each 4 Active Ventolin HFA 108 (90 Base) MCG/ACT Inhalation Aerosol SolutionIndication s:COPD, group D, by GOLD 2017 classification ([facility]) Inhale 2 Puffs by [...] Oral Tablet (Ativan)Indication s:Anxiety,ESRD on dialysis ([facility]) 1 tablet 15-20 minutes [...] suspected opioid overdose. Seek immediate medical attention. [email or web address] I 1 Each 3 4 Active Morphine [...] (HCC),COPD, group C, by GOLD 2017 classification (HCC),[place] miners' lung (HCC) 2.5 mg NEBULIZER PRN 04/24/2023 04/23/2024 Active Albuterol Sulfate (Proventil) (2.5 MG/3ML) 0.083% inhalation solution 2.5 mgIndications:Chronic hypoxemic respiratory failure (HCC),COPD, group C, by GOLD 2017 classification (HCC),[place] miners' lung (HCC) 2.5 mg NEBULIZER PRN 04/24/2023 04/23/2024 Active documented as of this encounter (statuses as of 02/24/2024) Active Problems Problem Noted Date Diagnosed Date COPD, group D, by GOLD 2017 classification 04/29 Overview: Per COPD GOLD Classification [place] 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 States he was advised he was not a surgical candidate. Carotid stenosis, right 07/11/2017 History of stroke 07/11/2017 Overview (02/12/2018): TIA vs lacunar stroke diagnosed on head CT in [place] Apr 2017. Follow [facility] [...] 02/10/2024 Does the household have a [facility] source of income? (Household - for ages [...] PM EST HH Concerns Mallorie, Calling from: [facility] Report/Concerns of: Fall Symptoms: Pain left Rib [...] for me to [facility] Call back with any advice * Telephone Encounter - Yuli Rodriguez OSA - 02/24/2024 1:20 PM EST Calling to inform the nurse that the pt had a fall this morning. Transferred to nurse line documented in this encounter Plan of Treatment Upcoming Encounters Date Type Department Care Team (Late st Contact Info) Description 02/26/2024 1:40 PM EST Office Visit Family Medicine [address] [phone] Jody Arora MD [address] [place] [address] [place] Ch[place] [phone] 03/04/2024 3:30 PM EST Telemedicine Palliative Medicine [facility] [address] [place] [address] Brielle Schmidt MD [address] [place] [address] 05/11/2024 10:30 AM EST Office Visit Cardiology, [facility] [address] [place] [address] Augustin Mathis DO [address] [place] [address] 08/03/2024 10:00 AM EDT Office Visit Urology, [facility] [address] [place] [address] Cameron Romeo MD [address] [place] [address] Scheduled Orders Name Type Priority Associated Diagnoses [...] unspecified documented in this encounter Care Teams Marketing Effectiveness Manager Relationship Specialty Start Date End Date Jody Arora MD [address] [place] [address] [place] [address] PCP - General Family Medicine 11/21/21 documented as of this encounter
--- OUTSIDE RECORDS SUMMARY | 2024-03-15 11:57 | External Medical Summary | Summary of Care ---
Author Name Unknown Organization [facility] Address [address] [place] [address] Phone [phone] Care Team Providers Care Program Eligibility Specialist Name Role Phone Jody Arora MD Primary Care Provide r Encounter Details Date Type Department Care Team (Late st Contact Info) Description 02/19/2024 Telephone Palliative Medicine [facility] [address] [place] [address] Brielle Schmidt MD [address] [place] [address] Allergies No known active allergiesdocumented as [...] :COPD, group C, by GOLD 2017 classification ([facility]) INHALE 1 DOSE BY MOUTH IN THE MORNING AND 1 AT BEDTIME 60 Each 4 Active Ventolin HFA 108 (90 Base) MCG/ACT Inhalation Aerosol SolutionIndication s:COPD, group D, by GOLD 2017 classification ([facility] [...] MG Oral Tablet (Ativan)Indication s:Anxiety,ESRD on dialysis ([facility]) 1 tablet 15-20 minutes before [...] suspected opioid overdose. Seek immediate medical attention. [email or web address] I 1 Each 3 4 Active Morphine [...] C, by GOLD 2017 classification ([facility]),[place] miners' lung (HCC) 2.5 mg NEBULIZER PRN 04/24/2023 04/23/2024 Active Albuterol Sulfate (Proventil) (2.5 MG/3ML) 0.083% inhalation solution 2.5 mgIndications:Chronic hypoxemic respiratory failure (HCC),COPD, group C, by GOLD 2017 classification (HCC),[place] miners' lung (HCC) 2.5 mg NEBULIZER PRN 04/24/2023 04/23/2024 Active documented as of this encounter (statuses as of 02/20/2024) Active Problems Problem Noted Date Diagnosed Date COPD, group D, by GOLD 2017 classification 04/29 Overview: Per COPD GOLD Classification [place] 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 States he was advised he was not a surgical candidate. Carotid stenosis, right 07/11/2017 History of stroke 07/11/2017 Overview (02/12/2018): TIA vs lacunar stroke diagnosed on head CT in [place] Apr 2017. Follow up MRI [facility] [...] 1:40 PM EST Office Visit Family Medicine [address] [place] [address] Jody Arora MD [address] [place] [address] [place] [address] 05/11/2024 10:30 AM EST Office Visit Cardiology, [facility] [address] [place] [address] Augustin Mathis, [address] [place] [address] 08/03/2024 10:00 AM EDT Office Visit Urology, [facility] [address] [place] [address] Cameron Romeo MD [address] [place] [address] Health Maintenance Due Date Last Done Comments [...] filedocumented as of this encounter Care Teams Program Eligibility Specialist Relationship Specialty Start Date End Date Jody Arora MD [address] [place] [address] [place] Ch[place] [phone] PCP - General Family Medicine 11/21/21 documented as of this encounter
--- OUTSIDE RECORDS SUMMARY | 2024-03-15 11:57 | External Medical Summary | Summary of Care ---
Author Name Unknown Organization [facility] Address [address] [facility] [place] [address] Phone [phone] Care Team Providers Care Director Of Dietary Name Role Phone Jody Arora MD Primary Care Provide r Reason for Visit * Reason Onset Date Comments Home Health 02/24/2024 Encounter Details Date Type Department Care Team (Late st Contact Info) Description 02/24/2024 Telephone Family [address] [place] [address] Jody Arora MD [address] [place] [address] [place] [address] Home Health Allergies No [...] Tablet (Ativan)Indication s:Anxiety,ESRD on dialysis ([facility]) 1 tablet 15-20 minutes before [...] suspected opioid overdose. Seek immediate medical attention. [email or web address] I 1 Each 3 4 Active Morphine [...] (HCC),COPD, group C, by GOLD 2017 classification (HCC),[place] miners' lung (HCC) 2.5 mg NEBULIZER PRN 04/24/2023 04/23/2024 Active Albuterol Sulfate (Proventil) (2.5 MG/3ML) 0.083% inhalation solution 2.5 mgIndications:Chronic hypoxemic respiratory failure (HCC),COPD, group C, by GOLD 2017 classification (HCC),[place] miners' lung (HCC) 2.5 mg NEBULIZER PRN 04/24/2023 04/23/2024 Active documented as of this encounter (statuses as of 02/24/2024) Active Problems Problem Noted Date Diagnosed Date COPD, group D, by GOLD 2017 classification 04/29 Overview: Per COPD GOLD Classification [place] 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 States he was advised he was not a surgical candidate. Carotid stenosis, right 07/11/2017 History of stroke 07/11/2017 Overview (02/12/2018): TIA vs lacunar stroke diagnosed on head CT in [place] Apr 2017. Follow up MRI [facility] no infarct. Anxiety 07/11/2017 HTN, goal [...] No 02/10/2024 Does the household have a [facility] source [facility] income? (Household - for ages [...] PM EST HH Concerns Mallorie, Calling from: [facility] Report/Concerns of: Fall Symptoms: Pain left Rib [...] for me to [facility] Call back with any advice * Telephone Encounter - Yuli Rodriguez OSA - 02/24/2024 1:20 PM EST Calling to inform the nurse that the pt had a fall this morning. Transferred to nurse line documented in this encounter Plan of Treatment Upcoming Encounters Date Type Department Care Team (Late st Contact Info) Description 02/26/2024 1:40 PM EST Office Visit Family Medicine [address] [address] Jody Arora MD [address] [place] [address] [place] [address] 03/04/2024 3:30 PM EST Telemedicine Palliative Medicine [facility] [address] [place] [address] Brielle Schmidt MD [address] [place] [address] 05/11/2024 10:30 AM EST Office Visit Cardiology, [facility] [address] [place] [address] Augustin Mathis DO [address] [place] [address] 08/03/2024 10:00 AM EDT Office Visit Urology, [facility] [address] [place] [address] Cameron Romeo MD [address] [place] [address] Scheduled Orders Name Type Priority Associated Diagnoses [...] unspecified documented in this encounter Care Teams Director Of Dietary Relationship Specialty Start Date End Date Jody Arora MD [address] [place] [address] [place] [address] PCP - General Family Medicine 11/21/21 documented as of this encounter
--- OUTSIDE RECORDS SUMMARY | 2024-03-15 11:57 | External Medical Summary | Summary of Care ---
Author Name Unknown Organization [facility] Address [address] [place] [address] Phone [phone] Care Team Providers Care Welt Beater Name Role Phone Jody Arora MD Primary Care Provide r Encounter Details Date Type Department Care Team (Late st Contact Info) Description 02/26/2024 Telephone Family Medicine [address] [address] Jody Arora MD [address] [place] [address] [place] [address] Allergies No known active allergiesdocumented as of this encounter (statuses as of 02/26/2024) Medications nitroglycerin (NITROSTAT) 0.[address] [...] Tablet (Ativan)Indication s:Anxiety,ESRD on dialysis ([facility]) 1 [...] suspected opioid overdose. Seek immediate medical attention. [email or web address] I 1 Each 3 4 Active Morphine [...] (HCC),COPD, group C, by GOLD 2017 classification (HCC),[place] miners' lung (HCC) 2.5 mg NEBULIZER PRN 04/24/2023 04/23/2024 Active Albuterol Sulfate (Proventil) (2.5 MG/3ML) 0.083% inhalation solution 2.5 mgIndications:Chronic hypoxemic respiratory failure (HCC),COPD, group C, by GOLD 2017 classification (HCC),[place] miners' lung (HCC) 2.5 mg NEBULIZER PRN 04/24/2023 04/23/2024 Active documented as of this encounter (statuses as of 02/26/2024) Active Problems Problem Noted Date Diagnosed Date COPD, group D, by GOLD 2017 classification 04/29 Overview: Per COPD GOLD Classification [place] 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 States he was advised he was not a surgical candidate. Carotid stenosis, right 07/11/2017 History of stroke 07/11/2017 Overview (02/12/2018): TIA vs lacunar stroke diagnosed on head CT in [place] Apr 2017. Follow up MRI [facility] no infarct. Anxiety 07/11/2017 HTN, goal below 140/90 08/02/2015 Coronary artery disease Dyslipidemia, goal LDL below 100 documented as of this encounter (statuses as of 02/26/2024) Resolved Problems Problem Noted Date Diagnosed Date [...] as of this encounter (statuses as of 02/26/2024) Immunizations Name Administration Dates Next Due COVID-19 [...] for ages 0-17 years) Not on file 11 / Food Insecurity Answer Date Recorded Do you [...] Telephone Encounter - Jody Arora MD - 02/26/2024 2:22 PM EST Pt was on bactrim and likely completing his doxy today - for now continue the [facility] treatment - call the clinic if the symptoms worsens * Telephone Encounter - Ethel Barnes RN - 02/26/2024 10:18 AM EST Daniella. Spoke with patient. He states that he has a productive cough and sputum is green/yellow and very thick. He does his nebulizer throughout the day. Denies any SOB or fever. Any recommendations? FYI- patient also disclosed that he will not be coming in for his xray on his ribs as he doesn't feel he needs it. Highly encouraged patient to complete xray but he declines. Thank you! documented in this encounter Plan of Treatment Upcoming Encounters Date Type Department Care Team (Late st Contact Info) Description 03/04/2024 3:30 PM EST Telemedicine Palliative Medicine [facility] [address] [facility] [place] [address] Brielle Schmidt MD [address] [place] [address] [place] [address] 05/11/2024 10:30 AM EST Office Visit Cardiology, [facility] [address] [place] [address] Augustin Mathis, [address] [place] [address] 08/03/2024 10:00 AM EDT Office Visit Urology, [facility] [address] [place] [address] Cameron Romeo MD [address] [place] [place] [address] Health Maintenance Due Date Last Done Comments [...] filedocumented as of this encounter Care Teams Welt Beater Relationship Specialty Start Date End Date Jody Arora MD [address] [place] [address] [place] [address] PCP - General Family Medicine 11/21/21 documented as of this encounter
--- OUTSIDE RECORDS SUMMARY | 2024-03-15 11:57 | External Medical Summary | Summary of Care ---
Author Name Unknown Organization [facility] Address [address] [address] Phone [phone] Care Team Providers Care Television Equipment Operator Name Role Phone Jody Arora MD Primary Care Provide r Reason for Visit * Reason Onset Date Comments Home Health 02/24/2024 Encounter Details Date Type Department Care Team (Late st Contact Info) Description 02/24/2024 Telephone Family [address] [place] [address] Jody Arora MD [address] [place] [address] [place] [address] Home Health Allergies No known active allergiesdocumented as of this encounter (statuses as of 02/24/2024) Medications nitroglycerin (NITROSTAT) 0.[address] 1 Tablet under the tongue every 5 minutes as needed for Pain, Chest. 9 Active Ipratropium-Albute rol 0.5-2.5 (3) MG/3ML Inhalation Solution (Duoneb)Indication s:Chronic hypoxemic respiratory failure (HCC),COPD, group C, by GOLD 2017 classification ([facility]) Inhale 3 mL via nebulizer [...] :COPD, group C, by GOLD 2017 classification ([facility]) INHALE 1 DOSE BY MOUTH IN THE MORNING AND 1 AT BEDTIME 60 Each 4 Active Ventolin HFA 108 (90 Base) MCG/ACT Inhalation Aerosol SolutionIndication s:COPD, group D, by GOLD 2017 classification ([facility]) Inhale 2 Puffs by mouth [...] MG Oral Tablet (Ativan)Indication s:Anxiety,ESRD on dialysis ([facility]) 1 tablet 15-20 minutes before [...] suspected opioid overdose. Seek immediate medical attention. [email or web address] I 1 Each 3 4 Active Morphine [...] (HCC),COPD, group C, by GOLD 2017 classification (HCC),[place] miners' lung (HCC) 2.5 mg NEBULIZER PRN 04/24/2023 04/23/2024 Active Albuterol Sulfate (Proventil) (2.5 MG/3ML) 0.083% inhalation solution 2.5 mgIndications:Chronic hypoxemic respiratory failure (HCC),COPD, group C, by GOLD 2017 classification (HCC),[place] miners' lung (HCC) 2.5 mg NEBULIZER PRN 04/24/2023 04/23/2024 Active documented as of this encounter (statuses as of 02/24/2024) Active Problems Problem Noted Date Diagnosed Date COPD, group D, by GOLD 2017 classification 04/29 Overview: Per COPD GOLD Classification [place]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 States he was advised he was not a surgical candidate. Carotid stenosis, right 07/11/2017 History of stroke 07/11/2017 Overview (02/12/2018): TIA vs lacunar stroke diagnosed on head CT in [place] Apr 2017. [facility] [...] No 02/10/2024 Does the household have a [facility] source of income? (Household - for [...] Telephone Encounter - Elisa Mcmahon CMA - 02/24/2024 2:51 PM EST I called Mallorie and let her know the order was place for the x-ray. Faxed order to . His is aware of the orders for the x-ray. * Telephone Encounter - Jody Arora MD - 02/24/2024 1:52 PM EST Considering pt does not want to go to the ER - Rib xray placed * Telephone Encounter - Madison Lubin LPN - 02/24/2024 1:22 PM EST Concerns Mallorie, Calling from: [facility] [address] Report/Concerns of: Fall Symptoms: Pain left Rib [...] for me to route call to PCP toaddress. Call back with any advice * Telephone Encounter - Yuli Rodriguez OSA - 02/24/2024 1:20 PM EST Calling to inform the nurse that the pt had a fall this morning. Transferred to nurse line documented in this encounter Plan of Treatment Upcoming Encounters Date Type Department Care Team (Late st Contact Info) Description 02/26/2024 1:40 PM EST Office Visit Family Medicine [address] [phone] Jody Arora MD [address] [place] [address] [place] [address] 03/04/2024 3:30 PM EST Telemedicine Palliative Medicine [facility] [address] [place] [address] Brielle Schmidt MD [address] [place] [address] [place] [address] 05/11/2024 10:30 AM EST Office Visit Cardiology, [address] [place] [address] Augustin Mathis, DO [address] [place] [address] 08/03/2024 10:00 AM EDT Office Visit Urology, [facility] [address] [place] [address] Cameron Romeo MD [address] [place] [phone] Scheduled Orders Name Type Priority Associated Diagnoses [...] unspecified documented in this encounter Care Teams Television Equipment Operator Relationship Specialty Start Date End Date Jody Arora MD [address] [place] [address] [place] [phone] PCP - General Family Medicine 11/21/21 documented as of this encounter
--- OUTSIDE RECORDS SUMMARY | 2024-03-15 11:57 | External Medical Summary | Summary of Care ---
Author Name Unknown Organization [facility] Address [address] [place] [address] Phone [phone] Care Team Providers Care Trauma Program Manager Name Role Phone Jody Arora MD Primary Care Provide r Reason for Visit * Reason Onset Date Comments Home Health 02/24/2024 Encounter Details Date Type Department Care Team (Late st Contact Info) Description 02/24/2024 Telephone Family [address] [place] [address] Jody Arora MD [address] [place] [address] [place] [address] Home Health Allergies No [...] MG Oral Tablet (Ativan)Indication s:Anxiety,ESRD on dialysis ([facility]) 1 tablet 15-20 minutes before dialysis [...] suspected opioid overdose. Seek immediate medical attention. [email or web address] I 1 Each 3 4 Active Morphine [...] (HCC),COPD, group C, by GOLD 2017 classification (HCC),[place] miners' lung (HCC) 2.5 mg NEBULIZER PRN 04/24/2023 04/23/2024 Active Albuterol Sulfate (Proventil) (2.5 MG/3ML) 0.083% inhalation solution 2.5 mgIndications:Chronic hypoxemic respiratory failure (HCC),COPD, group C, by GOLD 2017 classification (HCC),[place] miners' lung (HCC) 2.5 mg NEBULIZER PRN 04/24/2023 04/23/2024 Active documented as of this encounter (statuses as of 02/24/2024) Active Problems Problem Noted Date Diagnosed Date COPD, group D, by GOLD 2017 classification 04/29 Overview: Per COPD GOLD Classification [place] 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 States he was advised he was not a surgical candidate. Carotid stenosis, right 07/11/2017 History of stroke 07/11/2017 Overview (02/12/2018): TIA vs lacunar stroke diagnosed on head CT in [place] Apr 2017. Follow [facility] [...] No 02/10/2024 Does the household have [facility] source [facility]? (Household - [...] PM EST HH Concerns Mallorie, Calling from: [facility] Report/Concerns of: Fall Symptoms: Pain left [...] [facility] Call back with any advice * Telephone Encounter - Yuli Rodriguez OSA - 02/24/2024 1:20 PM EST Calling to inform the nurse that the pt had a fall this morning. Transferred to nurse line documented in this encounter Plan of Treatment Upcoming Encounters Date Type Department Care Team (Late st Contact Info) Description 02/26/2024 1:40 PM EST Office Visit Family Medicine [address] [phone] Jody Arora MD [address] [place] [address] [place] [address] 03/04/2024 3:30 PM EST Telemedicine Palliative Medicine [facility] [address] [place] [address] Brielle Schmidt MD [address] [place] [address] 05/11/2024 10:30 AM EST Office Visit Cardiology, [facility] [address] [place] [address] Augustin Mathis DO [address] [place] [address] 08/03/2024 10:00 AM EDT Office Visit Urology, [facility] [address] [place] [address] Cameron Romeo MD [address] [place] [address] Scheduled Orders Name Type Priority Associated Diagnoses [...] unspecified documented in this encounter Care Teams Trauma Program Manager Relationship Specialty Start Date End Date Jody Arora MD [address] [place] [address] [place] [address] PCP - General Family Medicine 11/21/21 documented as of this encounter
--- OUTSIDE RECORDS SUMMARY | 2024-03-15 11:58 | External Medical Summary | Summary of Care ---
Author Name Unknown Organization [facility] Address [address] [place] [facility] [place] [place] [address] Phone [phone] Care Team Providers Care Case Reviewer Name Role Phone Jody Arora MD Primary Care Provide r Reason for Visit * Reason Onset Date Comments Test Results 02/10/2024 Encounter Details Date Type Department Care Team (Late st Contact Info) Description 02/10/[address] [place] [address] Jody Arora MD [address] [place] [address] [place] [address] Test Results Allergies No known active allergiesdocumented as of this encounter (statuses as of 02/10/2024) Medications nitroglycerin (NITROSTAT) 0.[address] 1 Tablet under the tongue every 5 minutes as needed for Pain, Chest. 08/20/19 19 Active Ipratropium-Albute rol 0.5-2.5 (3) MG/3ML Inhalation Solution (Duoneb)Indication s:Chronic hypoxemic respiratory failure (HCC),COPD, group C, by GOLD 2017 classification ([facility]) Inhale 3 mL via nebulizer every 4 hours as needed for Wheezing. 120 mL 1 10/18/19 23 Active Menthol-Zinc Oxide 0.44-20.6 % External Ointment (Calmoseptine)Grace cations:Tinea cruris Apply to sore skin twice a day. 71 g 2 01/25/20 23 Active oxygen IN GAS Use 4 L/min(Oxygen) as directed. Uses "in the evening" Active Fluticasone-Salmet aleida 250-50 MCG/ACT Inhalation Aerosol Powder Breath Activated (Advair Diskus)Indications :COPD, group C, by GOLD 2017 classification ([facility]) INHALE 1 DOSE BY MOUTH IN THE MORNING AND 1 AT BEDTIME 60 Each 05/28/19 24 Active Ventolin HFA 108 (90 Base) MCG/ACT Inhalation Aerosol SolutionIndication s:COPD, group D, by GOLD 2017 classification ([facility]) Inhale 2 Puffs by mouth every 4 hours as needed for Wheezing. 18 g 2 05/28/19 24 Active Renal Vitamin 0.8 MG Oral Tablet Take 1 Tablet by mouth daily. With midday meal post dialysis 08/15/19 24 Active Calcium Acetate (Phos Binder) 667 MG Oral Capsule (Phoslo) Take 2 Capsules by mouth in the morning and 2 Capsules at noon and 2 Capsules in the evening. Take with meals. Take 1 with snack. 08/15/19 24 Active Eliquis 2.5 MG Oral Tablet Take 1 Tablet by mouth in the morning and 1 Tablet before bedtime. 60 Tablet 5 10/03/19 24 Active Rosuvastatin Calcium 10 MG Oral Tablet (Crestor) TAKE 1 TABLET BY MOUTH IN THE MORNING 90 Tablet 1 10/14/19 24 Active busPIRone HCl 5 MG Oral Tablet (Buspar)Indication s:Anxiety Take 1 Tablet by mouth in the morning and 1 Tablet before bedtime. 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 Seek immediate medical attention. [email or web address]://[email or web address]/watc [email or web address] I 1 Each 3 01/31/20 24 Active Morphine Sulfate (Concentrate) 100 MG/5ML Oral Solution Take 0.2 mL by mouth every 4 hours as needed (Pain, Anxiety before dialysis, or Shortness of breath). 30 mL 01/31/20 24 Active Sulfamethoxazole-T rimethoprim 800-160 MG Oral Tablet (Bactrim DS)Indications:Xochilt lulitis of finger of left hand Take 1 Tablet by mouth in the morning and 1 Tablet before bedtime. Do all this for 10 days. Until gone.. 20 Tablet 02/10/20 24 024 Active Midodrine HCl 10 MG Oral Tablet (Proamatine)Indica tions:ESRD on dialysis (HCC),Hypotension, unspecified hypotension type Take 1 tablet prior to dialysis three times a week 90 Tablet 02/10/20 24 Active Metoprolol Succinate ER 25 MG Oral Tablet Extended Release 24 Hour (toPROL XL)Indications:Atr ial fibrillation, unspecified type (HCC) Take 1 Tablet by mouth in the morning and 1 Tablet before bedtime. 180 Tablet 1 02/10/20 24 Active Midodrine HCl 2.5 MG Oral Tablet (Proamatine)Indica tions:Hypotension, unspecified hypotension type Take 1 Tablet by mouth in the morning and 1 Tablet at noon and 1 Tablet in the evening. 90 Tablet 1 02/10/20 24 Active Midodrine HCl 5 MG Oral Tablet (Proamatine)Indica tions:ESRD on dialysis (HCC),Hypotension, unspecified hypotension type Take 2 tablets Prior to dialysis 72 Tablet 1 02/03/20 24 024 Discontin ued(Refil l) Metoprolol Tartrate 25 MG Oral Tablet (Lopressor) Take 1 Tablet by mouth in the morning and 1 Tablet before bedtime. 60 Tablet 5 02/04/20 24 024 Discontin ued(Medic ation List Clean Up) Hospital, Clinic, or Other Facility Administered Medication Ordered Dose Route Frequency Start Date End Date Status Albuterol Sulfate (Proventil) (5 MG/ML) 0.5% *conc* inhalation solution 2.5 mgIndications:Chronic hypoxemic respiratory failure (HCC),COPD, group C, by GOLD 2017 classification (HCC),[place] miners' lung (HCC) 2.5 mg NEBULIZER PRN 04/24/2023 04/23/2024 Active Albuterol Sulfate (Proventil) (2.5 MG/3ML) 0.083% inhalation solution 2.5 mgIndications:Chronic hypoxemic respiratory failure (HCC),COPD, group C, by GOLD 2017 classification ([facility]),[place] miners' lung (HCC) 2.5 mg NEBULIZER PRN 04/24/2023 04/23/2024 Active documented as of this encounter (statuses as of 02/10/2024) Active Problems Problem Noted Date Diagnosed Date COPD, group D, by GOLD 2017 classification 04/29 Overview: Per COPD GOLD Classification [place] 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 States he was advised he was not a surgical candidate. Carotid stenosis, right 07/11/2017 History of stroke 07/11/2017 Overview (02/12/2018): TIA vs lacunar stroke diagnosed on head CT in [place] Apr 2017. Follow up MRI [facility] no infarct. Anxiety 07/11/2017 HTN, goal below 140/90 08/02/2015 Coronary artery disease Dyslipidemia, goal LDL below 100 documented as of this encounter (statuses as of 02/10/2024) Resolved Problems Problem Noted Date Diagnosed Date [...] as of this encounter (statuses as of 02/10/2024) Immunizations Name Administration Dates Next Due COVID-19 [...] No 02/10/2024 Does the household have a [place] [...] Telephone Encounter - Jody Arora MD - 02/10/2024 12:01 PM EST Pt's daughter messaged about metoprolol dose Pt's metoprolol was changed to Metoprolol succinate 25mg BID - midodrine 10mg 3x/week before dialysis - midodrine 2.5mg TID All the meds sent documented in this encounter Plan of Treatment Upcoming Encounters Date Type Department Care Team (Late st Contact Info) Description 02/19/2024 3:30 PM EST Telemedicine Palliative Medicine [facility] [address] [facility] [address] Brielle Schmidt MD [address] [place], [place] [address] [address] 02/26/2024 1:40 PM EST Office Visit Family Medicine [address] [place] [phone] Jody Arora MD [address] [place] [address] [place] [address] 05/11/2024 10:30 AM EST Office Visit Cardiology, [facility] [place] [address] Augustin Mathis, [address] [place] [address] 08/03/2024 10:00 AM EDT Office Visit Urology, [facility] [address] [place] [address] Cameron Romeo MD [address] [place] [address] Health Maintenance Due Date Last Done Comments Alpha-1 Antitrypsin 1958 Adult Wellness Visit 2006 *COPD SEVERITY VERIFIED BY PFT 07/16/2020 COVID-19 Vaccine ( season) 2023 01/03/2023, 01/10/2021, 05/24/2020, Additional history exists GFR 02/27/2024 08/28/2023, 0509/2023, [...] Diagnosis Atrial fibrillation, unspecified type (HCC)- Primary ESRD on dialysis (HCC) End stage renal disease Hypotension, unspecified hypotension type documented in this encounter Care Teams Case Reviewer Relationship Specialty Start Date End Date Jody Arora MD [address] [place] [address] [place] [address] PCP - General Family Medicine 11/21/21 documented as of this encounter
--- OUTSIDE RECORDS SUMMARY | 2024-03-15 11:58 | External Medical Summary | Summary of Care ---
Author Name Unknown Organization [facility] Address [address] [place] [address] Phone [phone] Care Team Providers Care Field Inspector Name Role Phone Jody Arora MD Primary Care Provide r Encounter Details Date Type Department Care Team (Late st Contact Info) Description 02/11/2024 Orders Only Family Medicine [address] [address] [place] [address] Hypotension, unspecified hypotension type Allergies No known active allergiesdocumented as of this encounter (statuses as of 02/11/2024) Medications nitroglycerin (NITROSTAT) 0.[address] 1 Tablet under the tongue every 5 minutes as needed for Pain, Chest. 08/20/19 19 Active Ipratropium-Albute rol 0.5-2.5 (3) MG/3ML Inhalation Solution (Duoneb)Indication s:Chronic hypoxemic respiratory failure (HCC),COPD, group C, by GOLD 2017 classification ([facility]) Inhale 3 mL via nebulizer every 4 [...] :COPD, group C, by GOLD 2017 classification ([facility]) INHALE 1 DOSE BY MOUTH IN THE MORNING AND 1 AT BEDTIME 60 Each 05/28/19 24 Active Ventolin HFA 108 (90 Base) MCG/ACT Inhalation Aerosol SolutionIndication s:COPD, group D, by GOLD 2017 classification ([facility]) Inhale 2 Puffs by mouth every 4 [...] MG Oral Tablet (Ativan)Indication s:Anxiety,ESRD on dialysis ([facility]) 1 tablet 15-20 minutes before dialysis sessions [...] suspected opioid overdose. Seek immediate medical attention. https://www.[email or web address] [email or web address]/watch? [email or web address] 1 Each 3 01/31/20 Active Additional Information Patient not taking.Reported on 02/10/2024 Morphine Sulfate (Concentrate) 100 MG/5ML Oral Solution Take 0.2 mL by mouth every 4 hours as needed (Pain, Anxiety before dialysis, or Shortness of breath). 30 mL 01/31/20 Active Sulfamethoxazole-T rimethoprim 800-160 MG Oral Tablet [...] three times a week 90 Tablet 02/10/20 Active Metoprolol Succinate ER 25 MG Oral [...] Tablet in the evening. 90 Tablet 1 02/11/20 24 Active Midodrine HCl 2.5 MG Oral Tablet (Proamatine)Indica tions:Hypotension, unspecified hypotension type Take 1 Tablet by mouth in the morning and 1 Tablet at noon and 1 Tablet in the evening. 90 Tablet 1 02/10/20 24 024 Discontin ued(Refil l) Hospital, Clinic, or Other Facility Administered Medication Ordered Dose Route Frequency Start Date End Date Status Albuterol Sulfate (Proventil) (5 MG/ML) 0.5% *conc* inhalation solution 2.5 mgIndications:Chronic hypoxemic respiratory failure (HCC),COPD, group C, by GOLD 2017 classification (HCC),[place] miners' lung (HCC) 2.5 mg NEBULIZER PRN 04/24/2023 04/23/2024 Active Albuterol Sulfate (Proventil) (2.5 MG/3ML) 0.083% inhalation solution 2.5 mgIndications:Chronic hypoxemic respiratory failure (HCC),COPD, group C, by GOLD 2017 classification (HCC),[place] miners' lung (HCC) 2.5 mg NEBULIZER PRN 04/24/2023 04/23/2024 Active documented as of this encounter (statuses as of 02/11/2024) Active Problems Problem Noted Date Diagnosed Date COPD, group D, by GOLD 2017 classification 04/29 Overview: Per COPD GOLD Classification [place] 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 States he was advised he was not a surgical candidate. Carotid stenosis, right 07/11/2017 History of stroke 07/11/2017 Overview (02/12/2018): TIA vs lacunar stroke diagnosed on head CT in [place] Apr 2017. Follow up MRI [facility] no infarct. Anxiety 07/11/2017 HTN, goal below 140/90 08/02/2015 Coronary artery disease Dyslipidemia, goal LDL below 100 documented as of this encounter (statuses as of 02/11/2024) Resolved Problems Problem Noted Date Diagnosed Date [...] as of this encounter (statuses as of 02/11/2024) Immunizations Name Administration Dates Next Due COVID-19 [...] 02/19/2024 3:30 PM EST Telemedicine Palliative Medicine [facility] [address] [place] [phone] Brielle Schmidt MD [address] [place] [address] [place] [address] 02/26/2024 1:40 PM EST Office Visit Family Medicine [address] [place] [address] Jody Arora MD [address] [place] [address] [place] [address] 05/11/2024 10:30 AM EST Office Visit Cardiology, [facility] [address] [place] [address] Augustin Mathis DO [address] [place] [address] 08/03/2024 10:00 AM EDT Office Visit Urology, [facility] [address] [place] [address] Cameron Romeo MD [address] [place] [address] Health Maintenance Due Date Last Done Comments [...] ASSESSMENT COMPLETED IN PAST YEAR FOR COPD 02/09/2025 02/10/2024 DTap/Tdap Vaccines (2 - Td or Tdap) [...] as of this encounter Visit Diagnoses Diagnosis Hypotension, unspecified hypotension type documented in this encounter Care Teams Field Inspector Relationship Specialty Start Date End Date Jody Arora MD [address] [place] [address] [place] [address] PCP - General Family Medicine 11/21/21 documented as of this encounter
--- OUTSIDE RECORDS SUMMARY | 2024-03-15 11:58 | External Medical Summary | Summary of Care ---
Author Name Unknown Organization [facility] Address [address] [facility] [place] [address] Phone [phone] Care Team Providers Care Heating And Ventilating Tender Name Role Phone Jody Arora MD Primary Care Provide r Reason for Visit * Reason Onset Date Comments Med Request 02/17/2024 Encounter Details Date Type Department Care Team (Late st Contact Info) Description 02/17/[address] [place] [address] Jody Arora MD [address] [place] [address] [place] [address] Med Request Allergies No known active allergiesdocumented as of this encounter (statuses as of 02/18/2024) Medications nitroglycerin (NITROSTAT) 0.[address] [...] :COPD, group C, by GOLD 2017 classification ([facility]) INHALE 1 DOSE BY MOUTH IN THE MORNING AND 1 AT BEDTIME 60 Each 05/28/19 24 Active Ventolin HFA 108 (90 Base) MCG/ACT Inhalation Aerosol SolutionIndication s:COPD, group D, by GOLD 2017 classification ([facility] [...] MG Oral Tablet (Ativan)Indication s:Anxiety,ESRD on dialysis ([facility]) 1 tablet [...] suspected opioid overdose. Seek immediate medical attention. [email or web address] [email or web address]/watch? [email or web address] 1 Each 3 01/31/20 Active Additional Information [...] 10 days. Until gone.. 20 Tablet 02/10/20 024 Active Midodrine HCl 10 MG Oral [...] evening. 90 Tablet 1 02/11/20 24 Active Hospital, Clinic, or Other Facility Administered Medication Ordered Dose Route Frequency Start Date End Date Status Albuterol Sulfate (Proventil) (5 MG/ML) 0.5% *conc* inhalation solution 2.5 mgIndications:Chronic hypoxemic respiratory failure (HCC),COPD, group C, by GOLD 2017 classification (HCC),[place] miners' lung (HCC) 2.5 mg NEBULIZER PRN 04/24/2023 04/23/2024 Active Albuterol Sulfate (Proventil) (2.5 MG/3ML) 0.083% inhalation solution 2.5 mgIndications:Chronic hypoxemic respiratory failure (HCC),COPD, group C, by GOLD 2017 classification (HCC),[place] miners' lung (HCC) 2.5 mg NEBULIZER PRN 04/24/2023 04/23/2024 Active documented as of this encounter (statuses as of 02/18/2024) Active Problems Problem Noted Date Diagnosed Date COPD, group D, by GOLD 2017 classification 04/29 Overview: Per COPD GOLD Classification [place] miners' pneumoconiosis 04/24/2023 Papillary renal cell carcinoma [...] mass 07/11/2017 Overview (01/12/2021): 2018 biopsy at [facility] per patient "kidney cancer". States he was advised he was not a surgical candidate. Carotid stenosis, right 07/11/2017 History of stroke 07/11/2017 Overview (02/12/2018): TIA vs lacunar stroke diagnosed on head CT in [place] Apr 2017. Follow up MRI [facility] no infarct. Anxiety 07/11/2017 HTN, goal below 140/90 08/02/2015 Coronary artery disease Dyslipidemia, goal LDL below 100 documented as of this encounter (statuses as of 02/18/2024) Resolved Problems Problem Noted Date Diagnosed Date [...] as of this encounter (statuses as of 02/18/2024) Immunizations Name Administration Dates Next Due COVID-19 [...] Telephone Encounter - Jody Arora MD - 02/18/2024 1:33 PM EST Please call the pt and see whether any change in his symptoms * Telephone Encounter - Elisa Mcmahon CMA - 02/18/2024 1:11 PM EST Patient never called back to get the appointment information. I called him again and left a message. Dr. Nunez wanted an update on his leg. He may just order a venous doppler if he is still having symptoms. * Telephone Encounter - Elisa Mcmahon CMA - 02/17/2024 2:29 PM EST Attempted to call patient, there was no answer, left voicemail. When patient returns call, ok for MOLLY to relay message, please refer to below documentation. If needed, can transfer to dedicated nurse line. I made him an appointment for tomorrow 02/18/[address] Nunez at 10:00 AM. If he develops chest pain or shortness of breath he needs to go to the ER> per Joey. * Telephone Encounter - Xiomy Hernandez PHARM Tech - 02/17/2024 10:56 AM EST Pt is experiencing redness and pain in left lower leg. Warm to touch, red from mid calf down. Pt also has edema. Pt fell on this past , bruising and abrasions on lower back. Pt currently on Bactrim for wound on hand. Pt can be reached at:[phone] [facility] [address] [place] [address] documented in this encounter Plan of Treatment Upcoming Encounters Date Type Department Care Team (Late st Contact Info) Description 02/19/2024 3:30 PM EST Telemedicine Palliative Medicine [facility] [address] [place] [phone] Brielle Schmidt MD [address] [place] [address] [place] [phone] 02/26/2024 1:40 PM EST Office Visit Family Medicine [address] [phone] Jody Arora MD [address] [place] [address] [place] [address] 05/11/2024 10:30 AM EST Office Visit Cardiology, [facility] [address] [facility] [place] [address] Augustin Mathis DO 132 [facility] [place] [address] 08/03/2024 10:00 AM EDT Office Visit Urology, [facility] 132 [facility] [place] [address] Cameron Romeo MD Sarita [place] [phone] Health Maintenance Due Date Last Done Comments [...] filedocumented as of this encounter Care Teams Heating And Ventilating Tender Relationship Specialty Start Date End Date Jody Arora MD [address] [place] [address] [place] [phone] PCP - General Family Medicine 11/21/21 documented as of this encounter
--- OUTSIDE RECORDS SUMMARY | 2024-03-15 11:58 | External Medical Summary | Summary of Care ---
Author Name Unknown Organization [facility] Address [address] [place] [address] Phone [phone] Care Team Providers Care Rivet Hole Machine Operator Name Role Phone Jody Arora MD Primary Care Provide r Reason for Referral * Evaluate & Treat - Unlimited Visits (Within 10 days (routine)) - Authorized Specialty Diagnoses / Procedures Referred By Adam robertson Referred To Contact HOME CARE / Home Care Diagnoses Skin ulcer of sacrum, limited to breakdown of skin (HCC) Jody Arora MD [address] [place] [address] [place] [address] Phone: tel: fax: Referral ID Status Reason Start Date Expiration Date Visits Requested Visits Authorized [id number] Authorized Specialty Services Required 02/19/[phone] Question Answer Referral Priority Within 10 days (routine) Where should this appointment be scheduled? External Comments Documentation of Rygg-mm-[id number] Encounter Addendum Patient Name: Justin Pinedo I certify that this patient is under my care and that I, or a nurse practitioner or physician's physiotherapy assistant working with me, had a [id number] encounter that meets the physician [id number] encounter requirements with this patient on: 02/19/24 The encounter with the patient was in whole, or in part, for the following medical condition, which is the primary reason for home health care (List medical condition): Wound care I certify that, based on my findings, the following services are medically necessary home health services: Nursing To provide the following care/treatments: (All hospitalists not following the patient after discharge should complete this section): sacral superfical ulcer Primary Care Physician to follow home care plan of care after discharge: My clinical findings support the need for the above services because: stage 2 sacral ulcer Further, I certify that my clinical findings support that this patient is homebound (i.e. Absences from home require considerable and taxing effort and are for medical reasons or sikhism services or infrequently or of short duration when for other reason) because: Physician Signature: Date of Signature: Physician Printed Name: Jody Arora MD Reason for Visit * Reason Comments Acute Encounter Details Date Type Department Care Team (Late st Contact Info) Description 02/19/2024 10:40 AM EST Office Visit Family Medicine [address] [place] [address] Jody Arora MD [address] [place] [address] [place] [address] Chronic heart failure with preserved ejection fraction (HCC)*; Leg swelling; Other hypervolemia; Leg erythema; Skin ulcer of sacrum, limited to breakdown of skin (HCC) Allergies No known active allergiesdocumented as [...] :COPD, group C, by GOLD 2017 classification ([facility]) INHALE 1 DOSE BY MOUTH IN THE MORNING AND 1 AT BEDTIME 60 Each 05/28/19 24 Active Ventolin HFA 108 (90 Base) MCG/ACT Inhalation Aerosol SolutionIndication s:COPD, group D, by GOLD 2017 classification ([facility], [...] MG Oral Tablet (Ativan)Indication s:Anxiety,ESRD on dialysis ([facility] [...] suspected opioid overdose. Seek immediate medical attention. [email or web address] [email or web address] I 1 Each 3 01/31/20 24 Active Morphine Sulfate (Concentrate) 100 MG/5ML Oral Solution Take 0.2 mL by mouth every 4 hours as needed (Pain, Anxiety before dialysis, or Shortness of breath). 30 mL 01/31/20 24 Active Midodrine HCl 10 MG Oral Tablet [...] evening. 90 Tablet 1 02/11/20 24 Active Doxycycline Hyclate 100 MG Oral CapsuleIndications :Leg swelling,Leg erythema Take 1 Capsule by mouth in the morning and 1 Capsule before bedtime. Do all this for 7 days. Take for 7 days. 14 Capsule 02/19/20 24 024 Active Sulfamethoxazole-T rimethoprim 800-160 MG Oral Tablet (Bactrim DS)Indications:Xochilt lulitis of finger of left hand Take 1 Tablet by mouth in the morning and 1 Tablet before bedtime. Do all this for 10 days. Until gone.. 20 Tablet 02/10/20 24 024 Discontin ued(Medic ation List Clean Up) Hospital, Clinic, or Other Facility Administered Medication Ordered Dose Route Frequency Start Date End Date Status Albuterol Sulfate (Proventil) (5 MG/ML) 0.5% *conc* inhalation solution 2.5 mgIndications:Chronic hypoxemic respiratory failure (HCC),COPD, group C, by GOLD 2017 classification (HCC),[place] miners' lung (HCC) 2.5 mg NEBULIZER PRN 04/24/2023 04/23/2024 Active Albuterol Sulfate (Proventil) (2.5 MG/3ML) 0.083% inhalation solution 2.5 mgIndications:Chronic hypoxemic respiratory failure (HCC),COPD, group C, by GOLD 2017 classification (HCC),[place] miners' lung (HCC) 2.5 mg NEBULIZER PRN 04/24/2023 04/23/2024 Active documented as of this encounter (statuses as of 02/19/2024) Active Problems Problem Noted Date Diagnosed Date COPD, group D, by GOLD 2017 classification 04/29 Overview: Per COPD GOLD Classification [place] miners' pneumoconiosis 04/24/2023 Papillary renal cell carcinoma [...] mass 07/11/2017 Overview (01/12/2021): 2018 biopsy at [facility] per patient "kidney cancer". States he was advised he was not a surgical candidate. Carotid stenosis, right 07/11/2017 History of stroke 07/11/2017 Overview (02/12/2018): TIA vs lacunar stroke diagnosed on head CT in [place] Apr 2017. Follow up MRI [facility] [...] No 02/10/2024 Does the household have a [facility] [place] [facility]? (Household - for [...] Sign Reading Time Taken Comments Blood Pressure 82/40 02/19/2024 10:49 AM EST Pulse 80 02/19/2024 10:49 AM EST Temperature 36.1 C (96.9 F) 02/19/2024 10:[address] Respiratory Rate - - Oxygen Saturation 80% 02/19/2024 10:49 AM EST on room air Inhaled Oxygen Concentration - - Weight - - Height - - Body Mass Index - - documented in this encounter Progress Notes * Jody Arora MD - 02/19/2024 11:04 AM EST Subjective: HPI: Justin Pinedo is a 83 year old male with hx of CAD s/p stent, ESRD, COPD (on 4L), MOLLY, HTN, carotid stenosis, DDD, anemia, anxiety, CVA with R sided weakness, COVID infection (02/2021), prediabetes, BPH, hx of RLE DVT and PE, recent onset of Afib/Aflutter and HFpEF, Hypotension seen for Pt is here with son in law Pt has been noticing leg swelling - started on the L and now on the R side - denied any fever - per pt he had dialysis yesterday and leg swelling is slightly better - pt does take midodrine for low BP - pt uses oxygen supplement daily - currently taking bactrim for hand skin infection Pt is still having soreness of the sacral area - pt mostly chair bound - denied any drainage Patient Active Problem List Diagnosis HTN, goal below 140/90 Left renal mass Coronary artery disease Carotid stenosis, right Dyslipidemia, goal LDL below 100 History of stroke Anxiety Anemia of chronic renal failure, stage 4 (severe) (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) BPH without obstruction/lower urinary tract symptoms Right sided weakness Papillary renal cell carcinoma ([facility]) [place] miners' pneumoconiosis ([facility]) COPD, group D, by GOLD 2017 classification ([facility]) Current Outpatient Medications Medication Sig Dispense Refill nitroglycerin (NITROSTAT) 0.[address] 1 Tablet under the tongue every 5 minutes as needed forPain, Chest. Ipratropium-Albuterol 0.5-2.5 (3) MG/3ML Inhalation Solution (Duoneb) Inhale 3 mL via nebulizer every 4 hours as needed for Wheezing. 120 mL 1 Menthol-Zinc Oxide 0.44-20.6 % External Ointment (Calmoseptine) Apply to sore skin twice a day. 71 g 2 oxygen IN GAS Use 4 L/min(Oxygen) as [...] mouth daily. With midday meal post dialysis Calcium Acetate (Phos Binder) 667 MG Oral Capsule (Phoslo) Take 2 Capsules by mouth in the morning and 2 Capsules at noon and 2 Capsules in the evening. Take with meals. Take 1 with snack. Eliquis 2.5 MG Oral Tablet Take 1 [...] minutes before dialysis sessions 30 Tablet 0 Venlafaxine HCl ER 37.5 MG Oral Capsule Extended Release 24 Hour (Effexor XR) TAKE 1 CAPSULE BY MOUTH ONCE DAILY DO NOT CHEW, CRUSH, OR CUT 90 Capsule 3 Naloxone HCl 4 MG/0.1ML Nasal Liquid (Narcan Nasal) Administer 1 spray into 1 nostril for suspectedopioid overdose. Seek immediate medical attention. https://www.youtube.com/[email or web address]?v=[email or web address] 1 Each 3 Morphine Sulfate (Concentrate) 100 MG/5ML Oral Solution Take 0.2 mL by mouth every 4 hours as needed (Pain, Anxiety before dialysis, or Shortness of breath). 30 mL 0 Midodrine HCl 10 MG Oral Tablet (Proamatine) Take 1 tablet prior to dialysis three times a week 90 Tablet 0 Metoprolol Succinate ER 25 MG Oral Tablet Extended Release 24 Hour (toPROL XL) Take 1 Tablet by mouth in the morning and 1 Tablet before bedtime. 180 Tablet 1 Midodrine HCl 2.5 MG Oral Tablet (Proamatine) Take 1 Tablet by mouth in the morning and 1 Tablet atnoon and 1 Tablet in the evening. 90 Tablet 1 Doxycycline Hyclate 100 MG Oral Capsule Take 1 Capsule by mouth in the morning and 1 Capsule beforebedtime. Do all this for 7 days. Take for 7 days. 14 Capsule 0 Current Facility-Administered Medications Medication Dose Route [...] Microalbuminuria Myocardial infarct, old 1998 stent in [place]--Dr. Marques Non-Q wave myocardial infarction of anterolateral [...] Vaping/E-Cigarette Devices ROS: -Per HPI OBJECTIVE: BP 82/40 | Pulse 80 | Temp 96.9 F (36.1 C) | SpO2 80% Comment: on room air PHYSICAL EXAM: Vitals are reviewed Cardiac:. Normal S1, S2, no murmur Lungs:. Good air entry b/l with lower lobe rakes MSK:. Severe b/l LE pitting edema, b/l feet erythema but L>R Psych:. AAOx3, normal affect ASSESSMENT/PLAN: I suspect pt's leg swelling is likely 2/2 fluid overload - due to hypotension can not put pt on diuretics - dialysis today and pt is going to take midodrine right now Will do jim Home nurse for wound care - recommended cushion for his chair Chronic heart failure with preserved ejection fraction (HCC) (Primary) Leg swelling - Doxycycline Hyclate 100 MG Oral Capsule; Take 1 Capsule by mouth in the morning and 1 Capsule before bedtime. Do all this for 7 days. Take for 7 days. Other hypervolemia Leg erythema - Doxycycline Hyclate 100 MG Oral Capsule; Take 1 Capsule by mouth in the morning and 1 Capsule before bedtime. Do all this for 7 days. Take for 7 days. Skin ulcer of sacrum, limited to breakdown of skin ([facility]) - HOME HEALTH REFERRAL OP I spent a total of 40-54 minutes (exact time 43 mins) on the date of service in preparation, delivery, and documentation of the care provided to Justin Pinedo excluding any time spent in the performance of separately billed services or time spent by another provider/QHP. Jody Arora MD Family medicine, [address] [address] documented in this encounter Nursing Notes * Elisa Mcmahon CMA - 02/19/2024 10:42 AM EST He is his for left lower leg swelling redness and warmth. The right leg is starting now too. He fell on (). He backside is all bruised from the fall. He doesn't think he hit his head at all. documented in this encounter Plan of Treatment Upcoming Encounters Date Type Department Care Team (Late st Contact Info) Description 02/19/2024 3:30 PM EST Telemedicine Palliative Medicine [facility] [address] [place] [phone] Brielle Schmidt MD [address] [place] [phone] 02/26/2024 1:40 PM EST Office Visit Family Medicine [address] [phone] Jody Arora MD [address] [place] [address] [place] [id number] 05/11/2024 10:30 AM EST Office Visit Cardiology, [facility] 132 [facility] [place] [address] Augustin Mathis DO 132 [facility] [place] [address] 08/03/2024 10:00 AM EDT Office Visit Urology, [facility] 132 [place] [address] Cameron Romeo MD [address] [place] [address] Scheduled Referrals Name Type Priority Associated Diagnoses Orde r Schedule HOME HEALTH REFERRAL OP Referral Within 10 days (routine) Skin ulcer of sacrum, limited to breakdown of skin (HCC) Ordered: 02/19/2024 Health Maintenance Due Date Last Done Comments [...] of this encounter Visit Diagnoses Diagnosis Chronic heart failure with preserved ejection fraction (HCC)- Primary Leg swelling Swelling of limb Other hypervolemia Leg erythema Unspecified erythematous condition Skin ulcer of sacrum, limited to breakdown of skin (HCC) documented in this encounter Care Teams Rivet Hole Machine Operator Relationship Specialty Start Date End Date Jody Arora MD [address] [place] [address] [place] [phone] PCP - General Family Medicine 11/21/21 documented as of this encounter
--- OUTSIDE RECORDS SUMMARY | 2024-03-15 11:58 | External Medical Summary | Summary of Care ---
Author Name Unknown Organization [facility] Address [address] [place] [address] Phone [phone] Care Team Providers Care Seismic Survey Assistant Name Role Phone Jody Arora MD Primary Care Provide r Reason for Visit * Reason Onset Date Comments STAIR 02/21/2022 AAA Encounter Details Date Type Department Care Team (Late st Contact Info) Description 02/21/2022 Telephone Vascular Surg [facility], [place] [address] [place] [address] Program, [facility] [address] [place] [address] STAIR (AAA) Allergies No known active allergiesdocumented as of this encounter (statuses as of 02/11/2024) Medications nitroglycerin (NITROSTAT) 0.[address] 1 Tablet under the tongue every 5 minutes as needed for Pain, Chest. 08/20/19 19 Active rosuvastatin (CRESTOR) 40 MG Tablet Take 1 Tablet by mouth in the morning. 04/10/19 18 2022 Discontinued(R efill) Losartan Potassium 25 MG Oral Tablet (Cozaar) Take 1 Tab by mouth daily. 90 Tab 3 11/24/19 21 2022 Discontinued hydrALAZINE HCl 25 MG Oral Tablet (Apresoline) Take 1 Tablet by mouth 2 times a day. 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 DO NOT CHEW,CRUSH ORCUT. 90 Capsule 1 10/18/19 22 2022 Discontinued Ventolin HFA 108 (90 Base) MCG/ACT Inhalation Aerosol SolutionIndicatio ns:COPD exacerbation (HCC) Inhale by mouth 2 Puffs every 4 hours as needed for Wheezing. 18 g 1 11/23/19 22 2023 Discontinued(M edication List Clean Up) NIFEdipine ER Osmotic Release 60 MG Oral Tablet Extended Release 24 Hour Take by mouth 1 Tablet in the morning AND 1 Tablet before bedtime. 180 Tablet 3 01/20/20 22 2022 Discontinued(R efill) Fluticasone Propionate (Inhal) 50 MCG/BLIST Inhalation Aerosol Powder Breath Activated Inhale 1 Puff by mouth in the morning and 1 Puff before bedtime. 2023 Discontinued(M edication/Dose Changed) Albuterol Sulfate (2.5 MG/3ML) 0.083% Inhalation Nebulization Solution (Proventil)Indica tions:Pneumonia due to COVID-19 virus Inhale 1 Vial (2.5 mg) via nebulizer every 6 hours as needed for Wheezing. 360 mL 02/10/20 22 2023 Discontinued(R efill) guaiFENesin ER 600 MG Oral Tablet Extended Release 12 Hour (Mucinex)Indicati ons:Pneumonia due to COVID-19 virus Take 1 Tablet (600 mg) by mouth in the morning and 1 Tablet (600 mg) in the evening. Take with plenty of water. Do not cut, crush or chew. 60 Tablet 02/10/20 22 2022 Discontinued Ipratropium-Albut aleida 0.5-2.5 (3) MG/3ML Inhalation Solution (Duoneb)Indicatio ns:Chronic hypoxemic respiratory failure (HCC),COPD, group C, by GOLD 2017 classification (HCC) Inhale 3 mL via nebulizer in the morning and 3 mL at noon and 3 mL in the evening and 3 mL before bedtime. 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 per patient "kidney cancer". States he was advised he was not a surgical candidate. Carotid stenosis, right 07/11/2017 History of stroke 07/11/2017 Overview (02/12/2018): TIA vs lacunar stroke diagnosed on head CT in [place] Apr 2017. Follow up [facility] [...] Telephone Encounter - Destiny Enrique LPN - 02/11/2024 3:27 PM EST AAA - Communication to Patient Patient refused follow-up, letter sent. Patient declines any further follow up of AAA. PCP FYI Patient disenrolled from [facility] Program for Abdominal Aortic Aneurysm - banner removed Destiny Enrique LPN Coordinator JUAN ANTONIO (System to Track Abnormalities of Importance Reliably) [phone] * Telephone Encounter - Destiny Enrique LPN - 02/09/2024 1:16 PM EST AAA - Communication to Patient Patient returned call and left message . Attempted to call back. Left another message. eDstiny Enrique LPN Coordinator JUAN ANTONIO (System to Track Abnormalities of Importance Reliably) [phone] * Telephone Encounter - Destiny Enrique LPN - 02/09/2024 9:45 AM EST AAA - Communication to Patient Patient no showed for imaging of AAA. Left Message for patient to return call to reschedule. Destiny Enrique LPN Coordinator STAIR (System to Track Abnormalities of Importance [employer]iably) [phone] * Telephone Encounter - Destiny Enrique LPN - 01/13/2024 9:54 AM EDT Called and spoke to patient. States he is in [facility] and had to cancel. Rescheduled for [...] (System to Track Abnormalities of Importance Reliably) [phone] * Telephone Encounter - Destiny Enrique LPN [...] sent. Enrolled in [facility] PCP - SACHIN Enrique LPN Coordinator STAIR (System to Track Abnormalities of Importance [employer]iably) [phone] documented in this encounter Plan of Treatment Upcoming Encounters Date Type Department Care Team (Late st Contact Info) Description 02/19/2024 3:30 PM EST Telemedicine Palliative Medicine [facility] [address] [place] [phone] Brielle Schmidt MD [address] [place] [address] [place] [address] 02/26/2024 1:40 PM EST Office Visit Family Medicine [address] [phone] Jody Arora MD [address] [place] [address] [place] [address] 05/11/2024 10:30 AM EST Office Visit Cardiology, [facility] [address] [facility] [place] [address] Augustin Mathis DO 132 [facility] [place] [address] 08/03/2024 10:00 AM EDT Office Visit Urology, [facility] 132 [facility] [place] [address] Cameron Romeo MD [address] [place] [address] [place] [address] Scheduled Orders Name Type Priority Associated Diagnoses [...] rupture documented in this encounter Care Teams Seismic Survey Assistant Relationship Specialty Start Date End Date Jody Arora MD [address] [place] [address] [place] [address] PCP - General Family Medicine 11/21/21 documented as of this encounter
--- OUTSIDE RECORDS SUMMARY | 2024-03-15 11:58 | External Medical Summary | Summary of Care ---
Author Name Unknown Organization [facility] Address [address] [facility] [place] [address] Phone [phone] Care Team Providers Care Orange Peel Operator Name Role Phone Jody Arora MD Primary Care Provide r Reason for Visit * Reason Onset Date Comments Med Request 02/17/2024 Encounter Details Date Type Department Care Team (Late st Contact Info) Description 02/17/[address] [place] [address] Jody Arora MD [address] [place] [address] [place] [address] Med Request Allergies No [...] GOLD 2017 classification ([facility]) Inhale 3 mL via nebulizer every [...] :COPD, group C, by GOLD 2017 classification ([facility]) INHALE 1 DOSE BY MOUTH IN THE MORNING AND 1 AT BEDTIME 60 Each 05/28/19 24 Active Ventolin HFA 108 (90 Base) MCG/ACT Inhalation Aerosol SolutionIndication s:COPD, group D, by GOLD 2017 classification ([facility] [...] MG Oral Tablet (Ativan)Indication s:Anxiety,ESRD on dialysis ([facility]) 1 tablet 15-20 minutes before dialysis [...] suspected opioid overdose. Seek immediate medical attention. [email or web address]/watc [email or web address] I 1 Each 3 01/31/20 24 Active [...] evening. 90 Tablet 1 02/11/20 24 Active Sulfamethoxazole-T rimethoprim 800-160 MG Oral Tablet (Bactrim DS)Indications:Xochilt lulitis of finger of left hand Take 1 Tablet by mouth in the morning and 1 Tablet before bedtime. Do all this for 10 days. Until gone.. 20 Tablet 02/10/20 24 024 [facility]contin u[facility] Hospital, Clinic, or Other Facility Administered Medication Ordered Dose Route Frequency Start Date End Date Status Albuterol Sulfate (Proventil) (5 MG/ML) 0.5% *conc* inhalation solution 2.5 mgIndications:Chronic hypoxemic respiratory failure (HCC),COPD, group C, by GOLD 2017 classification (HCC),[place] miners' lung (HCC) 2.5 mg NEBULIZER PRN 04/24/2023 04/23/2024 Active Albuterol Sulfate (Proventil) (2.5 MG/3ML) 0.083% inhalation solution 2.5 mgIndications:Chronic hypoxemic respiratory failure (HCC),COPD, group C, by GOLD 2017 classification (HCC),[place] miners' lung (HCC) 2.5 mg NEBULIZER PRN 04/24/2023 04/23/2024 Active documented as of this encounter (statuses as of 02/19/2024) Active Problems Problem Noted Date Diagnosed Date COPD, group D, by GOLD 2017 classification 04/29 Overview: Per COPD GOLD Classification [place] 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 States he was advised he was not a surgical candidate. Carotid stenosis, right 07/11/2017 History of stroke 07/11/2017 Overview (02/12/2018): TIA vs lacunar stroke diagnosed on head CT in [place] Apr 2017. Follow up MRI [facility] no infarct. Anxiety 07/11/2017 HTN, goal below [...] Miscellaneous Notes * Telephone Encounter - Jessica Rivera CMA - 02/19/2024 11:11 AM EST Seen today in office * Telephone Encounter - Jody Arora MD [...] wound on hand. Pt can be reached at:[phone] E [facility] [address] [place] [address] documented in this encounter Plan of Treatment Upcoming Encounters Date Type Department Care Team (Late st Contact Info) Description 02/19/2024 3:30 PM EST Telemedicine Palliative Medicine [facility] [address] [place] [phone] Brielle Schmidt MD [address] [place] [address] 02/26/2024 1:40 PM EST Office Visit Family Medicine [address] [place] [address] Jody Arora MD [address] [place] [address] [place] [address] 05/11/2024 10:30 AM EST Office Visit Cardiology, [facility] 132 [facility] [place] [address] Augustin Mathis DO 132 [facility] [place] [address] 08/03/2024 10:00 AM EDT Office Visit Urology, [facility] [address] [place] [address] Cameron Romeo MD 27 [place] [address] Health Maintenance Due Date Last Done Comments [...] filedocumented as of this encounter Care Teams Orange Peel Operator Relationship Specialty Start Date End Date Jody Arora MD [address] [place] [address] [place] [address] PCP - General Family Medicine 11/21/21 documented as of this encounter
--- OUTSIDE RECORDS SUMMARY | 2024-03-15 11:58 | External Medical Summary | Summary of Care ---
Author Name Unknown Organization [facility] Address [address] [place] [address] Phone [phone] Care Team Providers Care Mohel Name Role Phone Jody Arora MD Primary Care Provide r Encounter Details Date Type Department Care Team (Late st Contact Info) Description 01/28/2024 Result Scan Unspecified Department Wai Gerardo [facility] [address] [facility] [address] <No scans attached> Allergies No known active [...] :COPD, group C, by GOLD 2017 classification ([facility]) INHALE 1 DOSE BY MOUTH IN THE MORNING AND 1 AT BEDTIME 60 Each 4 Active Ventolin HFA 108 (90 Base) MCG/ACT Inhalation Aerosol SolutionIndication s:COPD, group D, by GOLD 2017 classification ([facility] [...] MG Oral Tablet (Ativan)Indication s:Anxiety,ESRD on dialysis ([facility]) 1 tablet 15-20 minutes before [...] (HCC),COPD, group C, by GOLD 2017 classification (HCC),[place] miners' lung (HCC) 2.5 mg NEBULIZER PRN 04/24/2023 04/23/2024 Active Albuterol Sulfate (Proventil) (2.5 MG/3ML) 0.083% inhalation solution 2.5 mgIndications:Chronic hypoxemic respiratory failure (HCC),COPD, group C, by GOLD 2017 classification ([facility]),[place] miners' lung (HCC) 2.5 mg NEBULIZER PRN 04/24/2023 04/23/2024 Active documented as of this encounter (statuses as of 02/11/2024) Active Problems Problem Noted Date Diagnosed Date COPD, group D, by GOLD 2017 classification 04/29 Overview: Per COPD GOLD Classification [place] 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 States he was advised he was not a surgical candidate. Carotid stenosis, right 07/11/2017 History of stroke 07/11/2017 Overview (02/12/2018): TIA vs lacunar stroke diagnosed on head CT in [place] Apr 2017. Follow up MRI [facility] [...] 02/19/2024 3:30 PM EST Telemedicine Palliative Medicine [facility] [address] [place] [address] Brilele Schmidt MD [address] [place] [address] [place] [address] 02/26/2024 1:40 PM EST Office Visit Family Medicine [address] [place] [phone] Jody Arora MD [address] [place] [address] [place] [address] 05/11/2024 10:30 AM EST Office Visit Cardiology, [address] [place] [address] Augustin Mathis, DO [address] [place] [address] 08/03/2024 10:00 AM EDT Office Visit Urology, [facility] [address] [place] [address] Cameron Romeo MD [address] [place] [phone] Health Maintenance Due Date Last Done Comments [...] Date/Time Associated Diagnosis Comments OUTSIDE LAB RESULTS 01/28/2024 documented in this encounter Results * OUTSIDE LAB RESULTS (01/28/2024) 01/28/2024 Wai Gerardo MD LABORATORY Final Result documented in this encounter Care Teams Mohel Relationship Specialty Start Date End Date Jody Arora MD [address] [place] [address] [place] [address] PCP - General Family Medicine 11/21/21 documented as of this encounter
--- OUTSIDE RECORDS SUMMARY | 2024-03-15 11:58 | External Medical Summary | Summary of Care ---
Author Name Unknown Organization [facility] Address [address] [place] [place] [address] Phone [phone] Care Team Providers Care Whizzer Hand Name Role Phone Jody Arora MD Primary Care Provide r Reason for Visit * Reason Onset Date Comments Med Request 02/17/2024 Encounter Details Date Type Department Care Team (Late st Contact Info) Description 02/17/[address] [place] [address] Jody Arora MD [address] [place] [address] [place] [address] Med Request Allergies No known active allergiesdocumented as of this encounter (statuses as of 02/17/2024) Medications nitroglycerin (NITROSTAT) 0.[address] [...] s:COPD, group D, by GOLD 2017 classification ([facility] [...] MG Oral Tablet (Ativan)Indication s:Anxiety,ESRD on dialysis ([facility]) 1 tablet 15-20 minutes before dialysis [...] opioid overdose. Seek immediate medical attention. https://www.you Evolver.com/watch? [email or web address] 1 Each 3 01/31/20 Active Additional Information [...] (HCC),COPD, group C, by GOLD 2017 classification (HCC),[place] miners' lung (HCC) 2.5 mg NEBULIZER PRN 04/24/2023 04/23/2024 Active Albuterol Sulfate (Proventil) (2.5 MG/3ML) 0.083% inhalation solution 2.5 mgIndications:Chronic hypoxemic respiratory failure (HCC),COPD, group C, by GOLD 2017 classification (HCC),[place] miners' lung (HCC) 2.5 mg NEBULIZER PRN 04/24/2023 04/23/2024 Active documented as of this encounter (statuses as of 02/17/2024) Active Problems Problem Noted Date Diagnosed Date COPD, group D, by GOLD 2017 classification 04/29 Overview: Per COPD GOLD Classification [place] 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 States he was advised he was not a surgical candidate. Carotid stenosis, right 07/11/2017 History of stroke 07/11/2017 Overview (02/12/2018): TIA vs lacunar stroke diagnosed on head CT in [place] Apr 2017. Follow up MRI [facility] no infarct. Anxiety 07/11/2017 HTN, goal below 140/90 08/02/2015 Coronary artery disease Dyslipidemia, goal LDL below 100 documented as of this encounter (statuses as of 02/17/2024) Resolved Problems Problem Noted Date Diagnosed Date [...] as of this encounter (statuses as of 02/17/2024) Immunizations Name Administration Dates Next Due COVID-19 [...] wound on hand. Pt can be reached at:[phone] E [facility] [address] [place] [address] documented in this encounter Plan of Treatment Upcoming Encounters Date Type Department Care Team (Late st Contact Info) Description 02/18/2024 10:00 AM EST Office Visit Family [address] [phone] Jody Arora MD [address] [place] [address] [place] [address] 02/19/2024 3:30 PM EST Telemedicine Palliative Medicine [facility] [address] [place] [phone] Brielle Schmidt MD [address] [place] [address] [place] [address] 02/26/2024 1:40 PM EST Office Visit Family [address] [phone] Jody Arora MD [address] [place] [address] [place] [address] 05/11/2024 10:30 AM EST Office Visit Cardiology, [facility] [address] [place] [address] Augustin Mathis, 132 [facility] [place] [address] 08/03/2024 10:00 AM EDT Office Visit Urology, [facility] [address] [place] [address] Cameron Romeo MD [address] [place] [address] Health Maintenance Due Date Last Done Comments [...] filedocumented as of this encounter Care Teams Whizzer Hand Relationship Specialty Start Date End Date Jody Arora MD [address] [place] [address] [place] [phone] PCP - General Family Medicine 11/21/21 documented as of this encounter
--- OUTSIDE RECORDS SUMMARY | 2024-03-15 11:58 | External Medical Summary | Summary of Care ---
Author Name Unknown Organization [facility] Address [address] [facility] [place] [address] Phone [phone] Care Team Providers Care Washer And Capper Machine Operator Name Role Phone Jody Arora MD Primary Care Provide r Reason for Visit * Reason Onset Date Comments Med Request 02/17/2024 Encounter Details Date Type Department Care Team (Late st Contact Info) Description 02/17/[address] [place] [address] Jody Arora MD [address] [place] [place] [address] [place] [address] Med Request Allergies No known active allergiesdocumented as of this encounter (statuses as of 02/18/2024) Medications nitroglycerin (NITROSTAT) 0.[address] 1 Tablet under the tongue every 5 minutes as needed for Pain, Chest. 08/20/19 19 Active Ipratropium-[place] rol 0.5-2.5 (3) MG/3ML Inhalation Solution (Duoneb)Indication s:Chronic hypoxemic respiratory failure (HCC),COPD, group C, by GOLD 2017 classification ([facility]) Inhale 3 mL via nebulizer every [...] :COPD, group C, by GOLD 2017 classification ([facility]) INHALE 1 DOSE BY MOUTH IN THE MORNING AND 1 AT BEDTIME 60 Each 05/28/19 24 Active Ventolin HFA 108 (90 Base) MCG/ACT Inhalation Aerosol SolutionIndication s:COPD, group D, by GOLD 2017 classification ([facility]) Inhale 2 Puffs by mouth every [...] MG Oral Tablet (Ativan)Indication s:Anxiety,ESRD on dialysis ([facility]) 1 tablet 15-20 minutes before dialysis [...] opioid overdose. Seek immediate medical attention. https://www.you Casabu.com/watch? v=v98aHtb7DrF 1 Each 3 01/31/20 Active Additional Information [...] (HCC),COPD, group C, by GOLD 2017 classification (HCC),[place] miners' lung (HCC) 2.5 mg NEBULIZER PRN 04/24/2023 04/23/2024 Active Albuterol Sulfate (Proventil) (2.5 MG/3ML) 0.083% inhalation solution 2.5 mgIndications:Chronic hypoxemic respiratory failure (HCC),COPD, group C, by GOLD 2017 classification (HCC),[place] miners' lung (HCC) 2.5 mg NEBULIZER PRN 04/24/2023 04/23/2024 Active documented as of this encounter (statuses as of 02/18/2024) Active Problems Problem Noted Date Diagnosed Date COPD, group D, by GOLD 2017 classification 04/29 Overview: Per COPD GOLD Classification [place] 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 Benign hypertension with chronic kidney disease, stage [...] mass 07/11/2017 Overview (01/12/2021): 2018 biopsy at [facility] per patient "kidney cancer". States he was advised he was not a surgical candidate. Carotid stenosis, right 07/11/2017 History of stroke 07/11/2017 Overview (02/12/2018): TIA vs lacunar stroke diagnosed on head CT in [place] Apr 2017. Follow up MRI [facility] [...] wound on hand. Pt can be reached at:[phone] [facility] [address] [place] [address] documented in this encounter Plan of Treatment Upcoming Encounters Date Type Department Care Team (Late st Contact Info) Description 02/19/2024 3:30 PM EST Telemedicine Palliative Medicine [facility] [address] [place] [phone] Bri[facility] [address] 02/26/2024 1:40 PM EST Office Visit Family Medicine [address] [place] [phone] Jody Arora MD [address] [place] [place] [address] [place] [address] 05/11/2024 10:30 AM EST Office Visit Cardiology, [facility] 132 [facility] [place] [address] Augustin Mathis, 132 [facility] [place] [address] 08/03/2024 10:00 AM EDT Office Visit Urology, [facility] 132 [facility] [place] [address] Cameron Romeo MD 27 [facility] [place] [address] Health Maintenance Due Date Last Done Comments [...] filedocumented as of this encounter Care Teams Washer And Capper Machine Operator Relationship Specialty Start Date End Date Jody Arora MD [address] [place] [address] [place] [phone] PCP - General Family Medicine 11/21/21 documented as of this encounter
--- OUTSIDE RECORDS SUMMARY | 2024-03-15 11:58 | External Medical Summary | Summary of Care ---
Author Name Unknown Organization [facility] Address [address] [place] [address] Phone [phone] Care Team Providers Care Hybrid Technologist Name Role Phone Jody Arora MD Primary Care Provide r Encounter Details Date Type Department Care Team (Late st Contact Info) Description 02/11/2024 Orders Only Family Medicine [address] [address] Jody Arora MD [address] [place] [address] [place] [address] Allergies No known active allergiesdocumented [...] Tablet (Ativan)Indication s:Anxiety,ESRD on dialysis ([facility]) 1 tablet 15-20 minutes before [...] suspected opioid overdose. Seek immediate medical attention. https:// /watch? [email or web address] 1 Each 3 01/31/20 Active Additional Information [...] Tablet before bedtime. 180 Tablet 1 02/10/20 Active Midodrine HCl 2.5 MG Oral Tablet (Proamatine)Indica tions:Hypotension, unspecified hypotension type Take 1 Tablet by mouth in the morning and 1 Tablet at noon and 1 Tablet in the evening. 90 Tablet 1 02/10/20 24 Active Hospital, Clinic, or Other Facility Administered Medication Ordered Dose Route Frequency Start Date End Date Status Albuterol Sulfate (Proventil) (5 MG/ML) 0.5% *conc* inhalation solution 2.5 mgIndications:Chronic hypoxemic respiratory failure (HCC),COPD, group C, by GOLD 2017 classification (HCC),Placer miners' lung (HCC) 2.5 mg NEBULIZER PRN 04/24/2023 04/23/2024 Active Albuterol Sulfate (Proventil) (2.5 MG/3ML) 0.083% inhalation solution 2.5 mgIndications:Chronic hypoxemic respiratory failure (HCC),COPD, group C, by GOLD 2017 classification (HCC),Placer miners' lung (HCC) 2.5 mg NEBULIZER PRN 04/24/2023 04/23/2024 Active documented as of this encounter (statuses as of 02/11/2024) Active Problems Problem Noted Date Diagnosed Date COPD, group D, by GOLD 2017 classification 04/29 Overview: Per COPD GOLD Classification 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 States he was advised he was not a surgical candidate. Carotid stenosis, right 07/11/2017 History of stroke 07/11/2017 Overview (02/12/2018): TIA vs lacunar stroke diagnosed on head CT in [place] Apr 2017. Follow up MRI [facility] [...] 02/19/2024 3:30 PM EST Telemedicine Palliative Medicine [facility] [address] [place] [address] Brielle Schmidt MD [address] [place], [place] [address] [address] 02/26/2024 1:40 PM EST Office Visit Family Medicine [address] [address] Jody Arora MD [address] [place] [address] [place] [address] 05/11/2024 10:30 AM EST Office Visit Cardiology, [facility] [address] [facility] [place] [address] Augustin Mathis DO [address] [place] [address] 08/03/2024 10:00 AM EDT Office Visit Urology, [facility] [address] [place] [address] Cameron Romeo MD [address] [place] [address] Health Maintenance Due Date Last Done Comments [...] Priority Date/Time Associated Diagnosis Comments CHEMISTRY-OUTSIDE Routine 01/30/2024 OUTSIDE LAB-CORONAVIRUS (COVID-19) Routine 01/28/2024 CHEMISTRY-OUTSIDE Routine 01/28/2024 documented in this encounter Results * (ABNORMAL) CHEMISTRY-OUTSIDE (01/30/2024) Not all results display below - see scan for full detail OUTSIDE LAB (SEE SCANNED REPORT) Comment:SCAN INCLUDES - CBC, CMP, PHOS, MG CREATININE 4.53(A) 0.6 - 1.4 MG/DL OUTSIDE LAB (SEE SCANNED REPORT) EGFR 12.19 ML/MIN OUTSIDE LA B (SEE SCANNED REPORT) POTASSIUM 4.5 3.5 - 5.1 MMOL/L OUTSIDE LAB (SEE SCANNED REPORT) GLUCOSE 242(A) 70 - 99 MG/DL OUTSIDE LAB (SEE [...] LAB OUTSIDE LAB (SEE SCANNED REPORT) HEMOGLOBIN, [id number] LAB OUTSIDE LAB (SEE SCANNED REPORT) PHOSPHORUS-OUTSID E LAB 3.4 2.5 - 4.9 MG/DL OUTSIDE LAB (SEE SCANNED REPORT) PTH-OUTSIDE LAB OUTS JULIA LAB (SEE SCANNED REPORT) MICROALBUMIN RATIO-OUTSIDE LAB OUTSIDE LA B (SEE SCANNED REPORT) PROTEIN, UA-OUTSIDE LAB OUTSIDE LAB (SEE SCANNED REPORT) HGB 8.0(A) 14.0 - 18.0 G/DL OUTSIDE LAB (SEE SCANNED REPORT) 01/30/2024 us Analilia Galvez MD LABORATORY Final Res ult OUTSIDE LAB (SEE SCANNED REPORT) * (ABNORMAL) CHEMISTRY-OUTSIDE (01/28/2024) Not all results display below - see scan for full detail OUTSIDE LAB (SEE SCANNED REPORT) Comment:SCAN INCLUDES - ISTA T 6 PANEL, RESPIRATORY PANEL CREATININE OUTSIDE L AB (SEE SCANNED REPORT) EGFR OUTSIDE LA B (SEE SCANNED REPORT) POTASSIUM 3.6 3.3 - 5.0 MMOL/L OUTSIDE LAB (SEE SCANNED REPORT) GLUCOSE OUTSIDE LA B (SEE SCANNED REPORT) HOURS FASTING OUTSID E LAB (SEE SCANNED REPORT) TRIGLYCERIDES-OUT SIDE LAB OUTSIDE LAB (SEE SCANNED REPORT) CHOLESTEROL-OUTSI DE LAB OUTSIDE LAB (SEE SCANNED REPORT) HDL-OUTSIDE LAB OUTS JULIA LAB (SEE SCANNED REPORT) CHOL/HDL RATIO-OUTSIDE LAB OUTSIDE LA B (SEE SCANNED REPORT) LDL (CALCULATED)-OUTS JULIA LAB OUTSIDE LAB (SEE SCANNED REPORT) LDL (DIRECT MEASURE)-OUTSIDE LAB OUTSIDE LAB (SEE SCANNED REPORT) HEMOGLOBIN, [id number] LAB OUTSIDE LAB (SEE SCANNED REPORT) PHOSPHORUS-OUTSID E LAB OUTSIDE LAB (SEE SCANNED REPORT) PTH-OUTSIDE LAB OUTS JULIA LAB (SEE SCANNED REPORT) MICROALBUMIN RATIO-OUTSIDE LAB OUTSIDE LA B (SEE SCANNED REPORT) PROTEIN, UA-OUTSIDE LAB OUTSIDE LAB (SEE SCANNED REPORT) HGB 8.8(A) 14.0 - 18.0 G/DL OUTSIDE LAB (SEE SCANNED REPORT) 01/28/2024 us History Per Patient LABORATORY Final Result OUTSIDE LAB (SEE SCANNED REPORT) * OUTSIDE LAB-CORONAVIRUS (COVID-19) (01/28/2024) [id number] DE LAB NOT DETECTED NOT DETECTED OUTSIDE LAB (SEE SCANNED REPORT) 01/28/2024 us Amilcar Mims DO LABORATORY Final R esult OUTSIDE LAB (SEE SCANNED REPORT) documented in this encounter Care Teams Hybrid Technologist Relationship Specialty Start Date End Date Jody Arora MD [address] [place] [address] [place] [address] PCP - General Family Medicine 11/21/21 documented as of this encounter
--- OUTSIDE RECORDS SUMMARY | 2024-03-15 11:58 | External Medical Summary | Summary of Care ---
Author Name Unknown Organization [facility] Address [address] [place] [facility] [place] [address] Phone [phone] Care Team Providers Care Asset Availability Leader Name Role Phone Jody Arora MD Primary Care Provide r Reason for Visit * Reason Onset Date Comments FYI 02/10/2024 Encounter Details Date Type Department Care Team (Late st Contact Info) Description 02/10/[address] [place] [address] Jody Arora MD [address] [place] [address] [place] [address] FYI Allergies No known [...] suspected opioid overdose. Seek immediate medical attention. [email or web address] 1 Each 3 01/31/20 Active Additional Information [...] (HCC),COPD, group C, by GOLD 2017 classification (HCC),[place] miners' lung (HCC) 2.5 mg NEBULIZER PRN 04/24/2023 04/23/2024 Active Albuterol Sulfate (Proventil) (2.5 MG/3ML) 0.083% inhalation solution 2.5 mgIndications:Chronic hypoxemic respiratory failure (HCC),COPD, group C, by GOLD 2017 classification (HCC),[place] miners' lung (HCC) 2.5 mg NEBULIZER PRN 04/24/2023 04/23/2024 Active documented as of this encounter (statuses as of 02/11/2024) Active Problems Problem Noted Date Diagnosed Date COPD, group D, by GOLD 2017 classification 04/29 Overview: Per COPD GOLD Classification [place] miners' pneumoconiosis 04/24/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 States he was advised he was not a surgical candidate. Carotid stenosis, right 07/11/2017 History of stroke 07/11/2017 Overview (02/12/2018): TIA vs lacunar stroke diagnosed on head CT in [place] Apr 2017. [facility] [...] Telephone Encounter - Jody Arora MD - 02/11/2024 9:34 AM EST Noted and thanks * Telephone Encounter - Christelle Shirley RN - 02/10/2024 3:33 PM EST FYI ONLY I spoke with HH nurse. She said he missed his chair and fell, on his buttocks , but does not have any injury or pain They will let us know if he has further concerns * Telephone Encounter - Dorcas Benz OSA - 02/10/2024 2:14 PM EST Reason for patient's call: Aarti from [facility] called to report a fall today. Please call Aarti back to follow up. Thank you. documented in this encounter Plan of Treatment Upcoming Encounters Date Type Department Care Team (Late st Contact Info) Description 02/19/2024 3:30 PM EST Telemedicine Palliative Medicine [address] [phone] Brielle Schmidt MD [address] [place] [address] 02/26/2024 1:40 PM EST Office Visit Family Medicine [address] [place] [address] Jody Arora MD [address] [place] [address] [place] [address] 05/11/2024 10:30 AM EST Office Visit Cardiology, [facility] 132 [facility] [place] [address] Augustin Mathis DO [address] [place] [address] 08/03/2024 10:00 AM EDT Office Visit Urology, [facility] [address] [place] [address] Cameron Romeo MD [address] [place] [address] Health Maintenance Due Date Last Done Comments Alpha-1 Antitrypsin 1958 Adult Wellness Visit 2006 *COPD SEVERITY VERIFIED BY PFT 07/16/2020 COVID-19 Vaccine ( season) 2023 01/03/2023, 01/10/2021, 05/24/2020, Additional history exists GFR 02/27/2024 08/28/2023, 05/0 09/2023, 07/10/2023, Additional history exists Albumin/Creatinine Ratio 07/09/20242 024, 08/08/2022, 12/07/2021, Additional history exists PTH 07/09/2024 07/10/2023, 11/16, 07/12/2022, Additional history exists Phosphate 07/09/2024 07/10/2023, 03/18, 03/19/2023, Additional history exists Nephrology Referral 07/14/2024 07/15/2023 Hgb 08/27/2024 08/28/2023, 06/2023, 02/25/2023, Additional history exists Depression Screening 02/09/2025 02/10/2024 [...] as of this encounter Care Teams Asset Availability Leader Relationship Specialty Start Date End Date Jody Arora MD [address] [place] [address] [place] [phone] PCP - General Family Medicine 11/21/21 documented as of this encounter
--- OUTSIDE RECORDS SUMMARY | 2024-03-15 11:58 | External Medical Summary | Summary of Care ---
Author Name Unknown Organization [facility] Address [address] [place] [facility] [place] [address] Phone [phone] Care Team Providers Care Financial Services Officer Name Role Phone Jody Arora MD Primary Care Provide r Reason for Visit * Reason Onset Date Comments Med Request 02/17/2024 Encounter Details Date Type Department Care Team (Late st Contact Info) Description 02/17/[address] [place] [address] Jody Arora MD [address] [place] [address] [place] [address] Med Request Allergies No [...] :COPD, group C, by GOLD 2017 classification ([facility]) INHALE 1 DOSE BY MOUTH IN THE MORNING AND 1 AT BEDTIME 60 Each 05/28/19 24 Active Ventolin HFA 108 (90 Base) MCG/ACT Inhalation Aerosol SolutionIndication s:COPD, group D, by GOLD 2017 classification ([facility]) Inhale 2 Puffs by mouth [...] MG Oral Tablet (Ativan)Indication s:Anxiety,ESRD on dialysis ([facility]) 1 tablet 15-20 minutes before [...] opioid overdose. Seek immediate medical attention. [email or web address]? [email or web address] 1 Each 3 01/31/20 Active Additional Information [...] (HCC),COPD, group C, by GOLD 2017 classification (HCC),[place]orth miners' lung (HCC) 2.5 mg NEBULIZER PRN 04/24/2023 04/23/2024 Active Albuterol Sulfate (Proventil) (2.5 MG/3ML) 0.083% inhalation solution 2.5 mgIndications:Chronic hypoxemic respiratory failure (HCC),COPD, group C, by GOLD 2017 classification (HCC),[place]orth miners' lung (HCC) 2.5 mg NEBULIZER PRN 04/24/2023 04/23/2024 Active documented as of this encounter (statuses as of 02/18/2024) Active Problems Problem Noted Date Diagnosed Date COPD, group D, by GOLD 2017 classification 04/29 Overview: Per COPD GOLD Classification Worth miners' pneumoconiosis 04/24/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 States he was advised he was not a surgical candidate. Carotid stenosis, right 07/11/2017 History of stroke 07/11/2017 Overview (02/12/2018): TIA vs lacunar stroke diagnosed on head CT in [place] Apr 2017. [facility] [...] wound on hand. Pt can be reached at:[phone] [facility] [address] [place] [address] documented in this encounter Plan of Treatment Upcoming Encounters Date Type Department Care Team (Late st Contact Info) Description 02/19/2024 3:30 PM EST Telemedicine Palliative Medicine [facility] [address] [place] [address] Brielle Schmidt MD [address] [place] [address] [place] [address] 02/26/2024 1:40 PM EST Office Visit Family Medicine [address] [address] Jody Arora MD [address] [place] [address] [place] [address] 05/11/2024 10:30 AM EST Office Visit Cardiology, [facility] 132 [facility] [place] [address] Augustin Mathis DO 132 [facility] [place] [address] 08/03/2024 10:00 AM EDT Office Visit Urology, [facility] 132 [facility] [place] [address] Cameron Romeo MD [address] [place] [address] Health Maintenance Due Date Last Done Comments [...] filedocumented as of this encounter Care Teams Financial Services Officer Relationship Specialty Start Date End Date Jody Arora MD [address] [place] [address] [place] [address] PCP - General Family Medicine 11/21/21 documented as of this encounter
--- OUTSIDE RECORDS SUMMARY | 2024-03-15 11:59 | External Medical Summary | Summary of Care ---
Author Name Unknown Organization [facility] Address [address] [place] [address] Phone [phone] Care Team Providers Care Control Valve Mechanic Name Role Phone London Arora MD Primary Care Provide r Reason for Visit * Reason Onset Date Comments Medication Refill 02/04/2024 Encounter Details Date Type Department Care Team (Late st Contact Info) Description 02/04/2024 Refill Family [address] [place] [address] London Arora MD [address] [place] [address] [place] [address] Allergies No known active allergiesdocumented as of this encounter (statuses as of 02/04/2024) Medications nitroglycerin (NITROSTAT) 0.[address] [...] suspected opioid overdose. Seek immediate medical attention. [email or web address] I 1 Each 3 01/31/20 24 Active Morphine Sulfate (Concentrate) 100 MG/5ML Oral Solution Take 0.2 mL by mouth every 4 hours as needed (Pain, Anxiety before dialysis, or Shortness of breath). 30 mL 01/31/20 24 Active Midodrine HCl 5 MG Oral Tablet (Proamatine)Indica tions:ESRD on dialysis (HCC),Hypotension, unspecified hypotension type Take 2 tablets Prior to dialysis 72 Tablet 1 02/03/20 24 Active Metoprolol Tartrate 25 MG Oral Tablet (Lopressor) Take 1 Tablet by mouth in the morning and 1 Tablet before bedtime. 60 Tablet 5 02/04/20 24 Active Metoprolol Tartrate 25 MG Oral Tablet (Lopressor) Take 1 Tablet by mouth in the morning and 1 Tablet before bedtime. 60 Tablet 5 09/17/19 24 024 Discontin ued(Refil l) Hospital, Clinic, or Other Facility Administered Medication Ordered Dose Route Frequency Start Date End Date Status Albuterol Sulfate (Proventil) (5 MG/ML) 0.5% *conc* inhalation solution 2.5 mgIndications:Chronic hypoxemic respiratory failure (HCC),COPD, group C, by GOLD 2017 classification ([facility]),Saline miners' lung (HCC) 2.5 mg NEBULIZER PRN 04/24/2023 04/23/2024 Active Albuterol Sulfate (Proventil) (2.5 MG/3ML) 0.083% inhalation solution 2.5 mgIndications:Chronic hypoxemic respiratory failure (HCC),COPD, group C, by GOLD 2017 classification ([facility]),Saline miners' lung (HCC) 2.5 mg NEBULIZER PRN 04/24/2023 04/23/2024 Active documented as of this encounter (statuses as of 02/04/2024) Active Problems Problem Noted Date Diagnosed Date COPD, group D, by GOLD 2017 classification 04/29 Overview: Per COPD GOLD Classification 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 States he was advised he was not a surgical candidate. Carotid stenosis, right 07/11/2017 History of stroke 07/11/2017 Overview (02/12/2018): TIA vs lacunar stroke diagnosed on head CT in [place] Apr 2017. Follow up MRI [facility] no infarct. Anxiety 07/11/2017 HTN, goal below 140/90 08/02/2015 Coronary artery disease Dyslipidemia, goal LDL below 100 documented as of this encounter (statuses as of 02/04/2024) Resolved Problems Problem Noted Date Diagnosed Date [...] as of this encounter (statuses as of 02/04/2024) Immunizations Name Administration Dates Next Due COVID-19 [...] Telephone Encounter - London Arora MD - 02/04/2024 9:44 AM EST Signed Prescriptions: Disp Refills Metoprolol Tartrate 25 MG Oral Tablet (Lop*60 Tab*5 Sig: Take 1 Tablet by mouth in the morning and 1 Tablet before bedtime. Authorizing Provider: LONDON ARORA * Telephone Encounter - Mary Yepez LPN - 02/04/2024 9:39 AM EST Pending Prescriptions: Disp Refills Metoprolol Tartrate 25 MG Oral Tablet (Lo*60 Tab*5 Sig: Take 1 Tablet by mouth in the morning and 1 Tablet before bedtime. 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, group D, by GOLD 2017 classification ([facility]) Labs: Lab Results Component Value Date/Time CREATININE - [facility] 4.08 (A) 08/28/2023 12:00 AM CREATININE - [facility] 2.5 (H) 03/24/2020 12:33 PM CREATININE, RANDOM URINE - [facility] 54 07/10/2023 01:50 PM CREATININE, RANDOM URINE - [facility] 123 03/24/2020 12:43 PM Lab Results Component Value Date/Time POTASSIUM - [facility] 5.7 (A) 08/28/2023 12:00 AM POTASSIUM - [facility] 4.8 03/24/2020 12:33 PM Lab Results Component Value Date/Time TSH - [facility] 1.49 01/08/2019 10:32 AM TSH - OUTSIDE LAB 1.900 09/07/2020 12:00 AM Lab Results Component Value Date/Time LDL (CALCULATED)-OUTSIDE LAB 19.60 09/07/2020 12:00 AM LDL (CALCULATED)-OUTSIDE LAB 31.60 03/23/2020 12:00 AM LDL (DIRECT MEASURE)-OUTSIDE LAB 38 09/07/2020 12:00 AM LDL (DIRECT MEASURE)-OUTSIDE LAB 42 03/23/2020 12:00 AM LDL CHOLESTEROL (CALCULATED) - [facility] 65 07/23/2023 02:30 PM LDL CHOLESTEROL (CALCULATED) - [facility] 47 12/07/2021 11:15 AM Lab Results Component Value Date/Time ALT - [facility] 22 12/07/2021 11:15 AM ALT - [facility] 26 03/24/2020 12:33 PM ALT-OUTSIDE LAB 23 07/25/2017 12:00 AM Hemoglobin AIC Results: Lab Results Component Value Date/Time HEMOGLOBIN A1C - [facility] 6.6 (H) 07/23/2023 02:30 PM HEMOGLOBIN A1C - [facility] 6.3 (H) 12/07/2021 11:15 AM documented in this encounter Plan of Treatment Upcoming Encounters Date Type Department Care Team (Late st Contact Info) Description 02/05/2024 11:20 AM EST Office Visit Family [address] [place] [phone] London Arora MD [address] [place] [address] [place] [address] 02/07/2024 12:30 PM EST Imaging Radiology [address] [place] [address] 02/10/2024 1:00 PM EST Imaging Radiology [address] [place] [address] 02/19/2024 3:30 PM EST Telemedicine Palliative Medicine [facility] [address] [place] [address] Brielle Schmidt MD [address] [facility] [place] [address] 02/25/2024 4:00 PM EST Office Visit Urology, [address] [place] [address] Cameron Romeo MD [address] [place] [address] [place] [address] 02/26/2024 1:40 PM EST Office Visit Family [address] [place] [phone] London Arora MD [address] [place] [address] [place] [address] 05/11/2024 10:30 AM EST Office Visit Cardiology, [facility] [address] [facility] [place] [address] Augustin Mathis, DO [address] [place] [address] Health Maintenance Due Date Last Done Comments [...] filedocumented as of this encounter Care Teams Control Valve Mechanic Relationship Specialty Start Date End Date London Arora MD [address] [place] [address] [place] [phone] PCP - General Family Medicine 11/21/21 documented as of this encounter
--- OUTSIDE RECORDS SUMMARY | 2024-03-15 11:59 | External Medical Summary | Summary of Care ---
Author Name Unknown Organization [facility] Address [address] [place] [address] Phone [phone] Care Team Providers Care Theater Technician Name Role Phone London Perales MD Primary Care Provide r Reason for Visit * Reason Onset Date Comments Medication Refill 02/04/2024 Encounter Details Date Type Department Care Team (Late st Contact Info) Description 02/04/2024 Refill Family [address] [place] [address] London Perales MD [address] [place] [address] [place] [address] Allergies No known active [...] :COPD, group C, by GOLD 2017 classification ([facility]) INHALE 1 DOSE BY MOUTH IN THE MORNING AND 1 AT BEDTIME 60 Each 05/28/19 24 Active Ventolin HFA 108 (90 Base) MCG/ACT Inhalation Aerosol SolutionIndication s:COPD, group D, by GOLD 2017 classification ([facility] [...] MG Oral Tablet (Ativan)Indication s:Anxiety,ESRD on dialysis ([facility] [...] suspected opioid overdose. Seek immediate medical attention. [email or web address] I 1 Each 3 01/31/20 24 Active [...] 2017 classification ([facility]),[place] miners' lung (HCC) 2.5 mg NEBULIZER PRN 04/24/2023 04/23/2024 Active Albuterol Sulfate (Proventil) (2.5 MG/3ML) 0.083% inhalation solution 2.5 mgIndications:Chronic hypoxemic respiratory failure (HCC),COPD, group C, by GOLD 2017 classification ([facility]),[place] miners' lung (HCC) 2.5 mg NEBULIZER PRN 04/24/2023 04/23/2024 Active documented as of this encounter (statuses as of 02/04/2024) Active Problems Problem Noted Date Diagnosed Date COPD, group D, by GOLD 2017 classification 04/29 Overview: Per COPD GOLD Classification [place] miners' pneumoconiosis 04/24/2023 Papillary renal cell carcinoma [...] lacunar stroke diagnosed on head CT in [place] Apr 2017. Follow up MRI [facility] no infarct. Anxiety 07/11/2017 HTN, goal [...] Miscellaneous Notes * Telephone Encounter - London Perales MD - 02/04/2024 2:41 PM EST Metoprolol tartrate 25mg BID * Telephone Encounter - Rea Bosch LPN - 02/04/2024 2:28 PM EST [facility] Pharmacist calling to get clarification on Medication refill. Metoprolol was changed 01/14/24 at [facility] to Succinate. Pharmacy received a refill of Metoprolol Tartrate 02/03. Do you want him to take Metoprolol Succinate 25 MG 1 tab BID or Metoprolol Tartrate 25 MG 1 Tab BID? Please advice. Pharmacy is holding on refill until Clarified. * Telephone Encounter - London Perales MD - 02/04/2024 9:44 AM EST Signed Prescriptions: Disp Refills Metoprolol Tartrate 25 MG Oral Tablet (Lop*60 Tab*5 Sig: Take 1 Tablet by mouth in the morning and 1 Tablet before bedtime. Authorizing Provider: LONDON PERALES * Telephone Encounter - Mary Yepez Nic, [employer] FOUNDER AND PRESIDENT - 02/04/2024 9:39 AM EST Pending Prescriptions: [...] sided weakness Papillary renal cell carcinoma (HCC) [place] miners' pneumoconiosis (HCC) COPD, group D, by GOLD 2017 classification ([facility]) Labs: Lab Results Component Value Date/Time CREATININE [...] 02/05/2024 11:20 AM EST Office Visit Family Medicine [address] [place] [phone] London Perales MD [address] [place] [address] [place] [address] 02/07/2024 12:30 PM EST Imaging Radiology [address] [place] [address] 02/10/2024 1:00 PM EST Imaging Radiology [address] 132 [facility] [place] [address] 02/19/2024 3:30 PM EST Telemedicine Palliative Medicine [facility] [address] Brielle Schmidt [facility] 400 [facility] [address] 02/25/2024 4:00 PM EST Office Visit Urology, [facility] [place] [address] Cameron Romeo MD [address] [place] [address] 02/26/2024 1:40 PM EST Office Visit Family [address] [place] [phone] London Perales MD [address] [place] [address] [place] [address] 05/11/2024 10:30 AM EST Office Visit Cardiology, [facility] [place] [address] Augustin Mathis, [address] [place] [address] Health Maintenance Due Date Last Done Comments [...] filedocumented as of this encounter Care Teams Theater Technician Relationship Specialty Start Date End Date London Perales MD [address] [place] [address] [place] [address] PCP - General Family Medicine 11/21/21 documented as of this encounter
--- OUTSIDE RECORDS SUMMARY | 2024-03-15 11:59 | External Medical Summary | Summary of Care ---
Author Name Unknown Organization [facility] Address [address] [place] [address] Phone [phone] Care Team Providers Care Steaming Cabinet Tender Name Role Phone Jdoy Arora MD Primary Care Provide r Reason for Visit * Reason Onset Date Comments STAIR 02/21/2022 AAA Encounter Details Date Type Department Care Team (Late st Contact Info) Description 02/21/2022 Telephone Vascular Surg [facility] [place] [address] [place] [address] Program, [facility] [address] [place] [address] STAIR (AAA) Allergies No known active allergiesdocumented as of this encounter (statuses as of 02/09/2024) Medications nitroglycerin (NITROSTAT) 0.[address] [...] as of this encounter (statuses as of 02/09/2024) Active Problems Problem Noted Date Diagnosed Date COPD, group D, by GOLD 2017 classification 04/29 Overview: Per COPD GOLD Classification [place] 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 States he was advised he was not a surgical candidate. Carotid stenosis, right 07/11/2017 History of stroke 07/11/2017 Overview (02/12/2018): TIA vs lacunar stroke diagnosed on head CT in [place] Apr 2017. Follow up MRI [facility] no infarct. Anxiety 07/11/2017 HTN, goal below 140/90 08/02/2015 Coronary artery disease Dyslipidemia, goal LDL below 100 documented as of this encounter (statuses as of 02/09/2024) Resolved Problems Problem Noted Date Diagnosed Date [...] as of this encounter (statuses as of 02/09/2024) Immunizations Name Administration Dates Next Due COVID-19 [...] Attempted to call back. Left another message. Destiny Enrique LPN Coordinator JUAN ANTONIO (System to Track Abnormalities of Importance [employer]iably) [phone] * Telephone Encounter - Destiny Enrique LPN - 02/09/2024 9:45 AM EST AAA - Communication to Patient Patient no showed for imaging of AAA. Left Message for patient to return call to reschedule. Destiny Enrique LPN Coordinator JUAN ANTONIO (System to Track Abnormalities of Importance [employer]iably) [phone] * Telephone Encounter - Destiny Enrique LPN - 01/13/2024 9:54 AM EDT Called and spoke to patient. States he is in [facility] and had to cancel. Rescheduled for next [...] to return call. Destiny Enrique LPN Coordinator STAIR (System to Track Abnormalities of Importance [employer]) [phone] * Telephone Encounter - Destiny Enrique LPN [...] (System to Track Abnormalities of Importance [employer]iably) [phone] documented in this encounter Plan of Treatment Upcoming Encounters Date Type Department Care Team (Late st Contact Info) Description 02/19/2024 3:30 PM EST Telemedicine Palliative Medicine [facility] [address] [place] [phone] Brielle Schmidt MD [address] [place] [address] [place] [address] 02/26/2024 1:40 PM EST Office Visit Family Medicine [address] [phone] Jody Arora MD [address] [place] [address] [place] [address] 05/11/2024 10:30 AM EST Office Visit Cardiology, [facility] 132 [facility] [address] Augustin Mathis, 132 [place] [address] 08/03/2024 10:00 AM EDT Office Visit Urology, [facility] 132 [facility] [address] Cameron Romeo MD [address] [place] [address] Scheduled Orders Name Type Priority Associated Diagnoses [...] rupture documented in this encounter Care Teams Steaming Cabinet Tender Relationship Specialty Start Date End Date Jody Arora MD [address] [place] [address] [place] [phone] PCP - General Family Medicine 11/21/21 documented as of this encounter
--- OUTSIDE RECORDS SUMMARY | 2024-03-15 11:59 | External Medical Summary | Summary of Care ---
Author Name Unknown Organization [facility] Address [address] [facility] [address] Phone [phone] Care Team Providers Care Disability Manager Name Role Phone Jody Arora MD Primary Care Provide r Reason for Visit * Reason Comments Re-Check Encounter Details Date Type Department Care Team (Late st Contact Info) Description 02/10/2024 11:20 AM EST Office Visit Family Medicine [address] [place] [phone] Jayleen Hua PA-C [address] [place] [address] [place] [address] Cellulitis of finger of left hand* Allergies No known active allergiesdocumented as of [...] :COPD, group C, by GOLD 2017 classification ([facility]) INHALE 1 DOSE BY MOUTH IN THE MORNING AND 1 AT BEDTIME 60 Each 05/28/19 24 Active Ventolin HFA 108 (90 Base) MCG/ACT Inhalation Aerosol SolutionIndication s:COPD, group D, by GOLD 2017 classification ([facility]) Inhale 2 Puffs by mouth [...] MG Oral Tablet (Ativan)Indication s:Anxiety,ESRD on dialysis ([facility]) 1 tablet 15-20 minutes before [...] suspected opioid overdose. Seek immediate medical attention. [email or web address] I 1 Each 3 01/31/20 24 Active [...] Tablet 02/10/20 24 024 Active Midodrine HCl 5 MG Oral Tablet [...] C, by GOLD 2017 classification ([facility]),[place] miners' lung (HCC) 2.5 mg NEBULIZER PRN 04/24/2023 04/23/2024 Active Albuterol Sulfate (Proventil) (2.5 MG/3ML) 0.083% inhalation solution 2.5 mgIndications:Chronic hypoxemic respiratory failure (HCC),COPD, group C, by GOLD 2017 classification ([facility]),[place] miners' lung (HCC) 2.5 mg NEBULIZER PRN 04/24/2023 04/23/2024 Active documented as of this encounter (statuses as of 02/10/2024) Active Problems Problem Noted Date Diagnosed Date COPD, group D, by GOLD 2017 classification 04/29 Overview: Per COPD GOLD Classification [place] 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 States he was advised he was not a surgical candidate. Carotid stenosis, right 07/11/2017 History of stroke 07/11/2017 Overview (02/12/2018): TIA vs lacunar stroke diagnosed on head CT in [place] Apr 2017. [facility] [...] Sign Reading Time Taken Comments Blood Pressure 100/80 02/10/2024 11:34 AM EST Pulse 64 02/10/2024 11:34 AM EST Temperature 35.3 C (95.5 F) 02/10/2024 11:[address] Respiratory Rate - - Oxygen Saturation 97% 02/10/2024 11:34 AM EST Inhaled Oxygen Concentration - - Weight 93.6 kg (206 lb 4.8 oz) 02/10/2024 11:34 AM EST Height 162.6 cm (5' 4") 02/10/2024 11:34 AM EST Body Mass Index 35.41 02/10/2024 11:34 AM EST documented in this encounter Progress Notes * Jayleen Hua PA-C - 02/10/2024 11:41 AM EST Pt here today with a cut/open area to left index finger. Pt has mild swelling, redness. It is very sore. Pt states that he tripped and cut it, about 3 weeks ago. Pt denies fever, chills. Review of patient's allergies indicates: No Known [...] for suspectedopioid overdose. Seek immediate medical attention. [email or web address] 1 Each 3 Morphine Sulfate (Concentrate) 100 MG/5ML Oral Solution Take 0.2 mL by mouth every 4 hours as needed (Pain, Anxiety before dialysis, or Shortness of breath). 30 mL 0 Midodrine HCl 5 MG Oral Tablet (Proamatine) Take 2 tablets Prior to dialysis 72 Tablet 1 Metoprolol Tartrate 25 MG Oral Tablet (Lopressor) Take 1 Tablet by mouth in the morning and 1 Tablet before bedtime. 60 Tablet 5 Current Facility-Administered Medications Medication Dose Route Frequency Provider Last Rate Last Admin Albuterol Sulfate (Proventil) (5 MG/ML) 0.5% *conc* inhalation solution 2.5 mg 2.5 mg Nebulizer Gilbert Alexander MD Albuterol Sulfate (Proventil) (2.5 MG/3ML) 0.083% inhalation solution 2.5 mg 2.5 mg Nebulizer PRN Gilbert Thomas MD Past Medical History: Diagnosis Date Basal cell carcinoma (BCC) of skin of face 07/11/2017 CKD (chronic kidney disease), stage IV (HCC) COPD (chronic obstructive pulmonary disease) ([facility]) Coronary artery disease Dyslipidemia, goal LDL below 100 Microalbuminuria Myocardial infarct, old 1998 stent in [place]--Dr. 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 (Adult - for ages 18 years and over): No Does your family have trouble paying for medicine? (Household - for ages 0-17 years): Not on file Food Insecurity: No Food Insecurity (05/20/2023) Food Insecurity Do you need food for this week? (Adult - for ages 18 years and over): No Are you able to get enough food for your family? (Household - for ages 0-17 years): Not on file Does your family need food this week? (Household - for ages 0-17 years): Not on file Do you always have enough food for your family? (Household - for ages 0-17 years): Not on file Transportation Needs: No Transportation Needs (05/20/2023) Transportation Needs Do you have trouble getting a ride to medical visits or work? (Adult - for ages 18 years and over):Never True Does your family have a hard time getting a ride to doctors visits? (Household - for ages 0-17 years): Not on file Has lack of transportation kept you from medical appointments, meetings, work, or from getting things needed for daily living? Check all that apply. (Adult - for ages 18 years and over): Not on file Do you (or your family) have trouble finding or paying for a ride (transportation)? (Household - for ages 0-17 years): Not on file Social Connections: Socially Integrated (05/20/2023) Social Connections How often do you feel lonely or isolated from those around you? (Adult - for ages 18 years and over): Never Housing Stability: Low Risk (05/20/2023) Housing Stability Do you currently live in a assisted or have no steady place to sleep at night? (Adult - for ages 18 years and over): No Do you think you are at risk of becoming homeless? (Adult - for ages 18 years and over): No Does your family worry about paying for your home or becoming homeless? (Household - for ages 0-17 years): Not on file Are you homeless or worried that you might be in the future? (Adult - for ages 18 years and over): Not on file Are you (or your family) homeless or worried that you might be in the future? (Household - for ages0-17 years): Not on file O:Blood pressure 100/80, pulse 64, temperature 95.5 F (35.3 C), temperature source Infrared , height 5' 4" (1.626 m), weight 206 lb 4.8 oz (93.6 kg), SpO2 97%. GENERAL: alert, healthy, and no distress EXTREMITIES: left index finger - small open area, granulation tissue. No drainage. Mil surrounding erythema. Mild tenderness A:Cellulitis of finger of left hand (Primary) - Sulfamethoxazole-Trimethoprim 800-160 MG Oral Tablet (Bactrim DS); Take 1 Tablet by mouth in the morning and 1 Tablet before bedtime. Do all this for 10 days. Until gone.. Start bactrim. Any questions/problems, please call. If anything changes, worsens, develops new sx, please call TAMI. Follow Up: Return if symptoms worsen or fail to improve. Jayleen Hua PA-C documented in this encounter Nursing Notes * Jessica Rivera CMA - 02/10/2024 11:44 AM EST Pt reports fell and cut Left hand very painful 10 but jumps to 9/10 when touched, happened 2-3 weeks ago documented in this encounter Plan of Treatment Upcoming Encounters Date Type Department Care Team (Late st Contact Info) Description 02/19/2024 3:30 PM EST Telemedicine Palliative Medicine [facility] [address] [place] [phone] Brielle Schmidt MD [address] [place] [address] [place] [address] 02/26/2024 1:40 PM EST Office Visit Family Medicine [address] [phone] Jody Arora MD [address] [place] [address] [place] [address] 05/11/2024 10:30 AM EST Office Visit Cardiology, [facility] 132 [facility] [place] [address] Augustin Mathis, [address] [place] [address] 08/03/2024 10:00 AM EDT Office Visit Urology, [facility] [address] [place] [address] Cameron Romeo MD [address] [place] [address] Health Maintenance Due Date Last Done Comments [...] this encounter Visit Diagnoses Diagnosis Cellulitis of finger of left hand- Primary Cellulitis and abscess of finger, unspecified documented in this encounter Care Teams Disability Manager Relationship Specialty Start Date End Date Jody Arora MD [address] [place] [address] [place] [address] PCP - General Family Medicine 11/21/21 documented as of this encounter
--- OUTSIDE RECORDS SUMMARY | 2024-03-15 11:59 | External Medical Summary | Summary of Care ---
Author Name Unknown Organization [facility] Address [address] [place] [address] Phone [phone] Care Team Providers Care Professor Of Graphic Design Name Role Phone Jody Arora MD Primary Care Provide r Reason for Visit * Reason Onset Date Comments Advice 02/03/2024 Encounter Details Date Type Department Care Team (Late st Contact Info) Description 02/03/[address] [place] [phone] Services, Scheduling [address] [place] [address] Advice Allergies No known active allergiesdocumented as [...] suspected opioid overdose. Seek immediate medical attention. [email or web address] I 1 Each 3 4 Active Morphine Sulfate (Concentrate) 100 MG/5ML Oral Solution Take 0.2 mL by mouth every 4 hours as needed (Pain, Anxiety before dialysis, or Shortness of breath). 30 mL 4 Active Midodrine HCl 5 MG Oral Tablet (Proamatine)Indica tions:ESRD on dialysis (HCC),Hypotension, unspecified hypotension type Take 2 tablets Prior to dialysis 72 Tablet 1 4 Active Hospital, Clinic, or Other Facility Administered Medication Ordered Dose Route Frequency Start Date End Date Status Albuterol Sulfate (Proventil) (5 MG/ML) 0.5% *conc* inhalation solution 2.5 mgIndications:Chronic hypoxemic respiratory failure (HCC),COPD, group C, by GOLD 2017 classification ([facility]),[place] miners' lung (HCC) 2.5 mg NEBULIZER PRN 04/24/2023 04/23/2024 Active Albuterol Sulfate (Proventil) (2.5 MG/3ML) 0.083% inhalation solution 2.5 mgIndications:Chronic hypoxemic respiratory failure (HCC),COPD, group C, by GOLD 2017 classification ([facility]),[place] miners' lung (HCC) 2.5 mg NEBULIZER PRN 04/24/2023 04/23/2024 Active documented as of this encounter (statuses as of 02/04/2024) Active Problems Problem Noted Date Diagnosed Date COPD, group D, by GOLD 2017 classification 04/29 Overview: Per COPD GOLD Classification [place] 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 States he was advised he was not a surgical candidate. Carotid stenosis, right 07/11/2017 History of stroke 07/11/2017 Overview (02/12/2018): TIA vs lacunar stroke diagnosed on head CT in [place] Apr 2017. [facility] [...] Telephone Encounter - Gabby Sosa RN - 02/04/2024 8:51 AM EST LMAM and he is aware that he can speak with PA in Center today. * Telephone Encounter - Madison Paige OSA - 02/03/2024 10:59 AM EST Received call from pt, he said that he wanted to speak directly with Dr Patel. I mentioned to ptthat Dr Patel was seeing pts at the moment. Pt understood and said for her to call him back regarding his Dialysis at [phone]. Thank You, Lyric documented in this encounter Plan of Treatment Upcoming Encounters Date Type Department Care Team (Late st Contact Info) Description 02/05/2024 11:20 AM EST Office Visit [address] Medicine [address] [phone] Jody Arora MD [address] [place] [address] [place] [address] 02/07/2024 12:30 PM EST Imaging Radiology [address] [place] [address] 02/10/2024 1:00 PM EST Imaging Radiology [facility] 132 [facility] [place] [address] 02/19/2024 3:30 PM EST Telemedicine Palliative Medicine [facility] 200 [place] [phone] Brielle Schmidt MD [address] [place] [address] [place] [address] 02/25/2024 4:00 PM EST Office Visit Urology, [facility] [place] [address] Cameron Romeo MD [address] [place] [address] 02/26/2024 1:40 PM EST Office Visit [address] [place] [address] Jody Arora MD [address] [place] [address] [place] [address] 05/11/2024 10:30 AM EST Office Visit Cardiology, [facility] [address] [place] [address] Augustin Mathis DO 132 [place] [address] Health Maintenance Due Date Last Done Comments [...] filedocumented as of this encounter Care Teams Professor Of Graphic Design Relationship Specialty Start Date End Date Jody Arora MD [address] [place] [address] [place] [address] PCP - General Family Medicine 11/21/21 documented as of this encounter
--- OUTSIDE RECORDS SUMMARY | 2024-03-15 11:59 | External Medical Summary | Summary of Care ---
Author Name Unknown Organization [facility] Address [address] [place] [address] Phone [phone] Care Team Providers Care Manager Strategic Partnerships Name Role Phone London Perales MD Primary Care Provide r Reason for Visit * Reason Onset Date Comments Medication Refill 02/04/2024 Encounter Details Date Type Department Care Team (Late st Contact Info) Description 02/04/2024 Refill Family [address] [place] [address] London Perales MD [address] [place] [address] [place] [address] Allergies No known active allergiesdocumented [...] suspected opioid overdose. Seek immediate medical attention. [email or web address] I 1 Each 3 01/31/20 24 Active [...] by GOLD 2017 classification ([facility]),[place] miners' lung (HCC) 2.5 mg NEBULIZER PRN 04/24/2023 04/23/2024 Active Albuterol Sulfate (Proventil) (2.5 MG/3ML) 0.083% inhalation solution 2.5 mgIndications:Chronic hypoxemic respiratory failure (HCC),COPD, group C, by GOLD 2017 classification ([facility]),[place] miners' lung (HCC) 2.5 mg NEBULIZER PRN [...] mass 07/11/2017 Overview (01/12/2021): 2018 biopsy at [facility] per patient "kidney cancer". States he was advised he was not a surgical candidate. Carotid stenosis, right 07/11/2017 History of stroke 07/11/2017 Overview (02/12/2018): TIA vs lacunar stroke diagnosed on head CT in [place] Apr 2017. Follow up MRI [facility] no infarct. Anxiety 07/11/2017 HTN, [...] Bosch LPN - 02/04/2024 2:28 PM EST [facility] Pharmacist calling to get clarification on Medication refill. Metoprolol was changed 01/14/24 at [facility] to Succinate. Pharmacy received a refill [...] PERALES * Telephone Encounter - Mary Yepez LPN [...] sided weakness Papillary renal cell carcinoma (HCC) [place] miners' pneumoconiosis (HCC) COPD, group D, by [...] 11:20 AM EST Office Visit Family Medicine [address] [address] London Perales MD [address] [place] [address] [place] [address] 02/07/2024 12:30 PM EST Imaging Radiology [address] [place] [address] 02/10/2024 1:00 PM EST Imaging Radiology [facility] 1st [facility] 132 [facility] [place] [address] 02/19/2024 3:30 PM EST Telemedicine Palliative Medicine [facility] 200 [place] [phone] Brielle Schmidt MD [address] [place] [address] [place] [address] 02/25/2024 4:00 PM EST Office Visit Urology, [facility] [place] [address] Cameron Romeo MD [address] [place] [address] 02/26/2024 1:40 PM EST Office Visit [address] [place] [phone] London Perales MD [address] [place] [address] [place] hCandra [address] 05/11/2024 10:30 AM EST Office Visit Cardiology, [facility] [address] [place] [address] Augustin Mathis DO [address] [place] [address] Health Maintenance Due Date Last Done Comments [...] as of this encounter Care Teams Manager Strategic Partnerships Relationship Specialty Start Date End Date London Perales MD [address] [place] [address] [place] [address] PCP - General Family Medicine 11/21/21 documented as of this encounter
--- OUTSIDE RECORDS SUMMARY | 2024-03-15 11:59 | External Medical Summary | Summary of Care ---
Author Name Unknown Organization [facility] Address [address] [place] [address] Phone [phone] Care Team Providers Care Motion Picture Projectionist Name Role Phone London Perales MD Primary Care Provide r Reason for Visit * Reason Onset Date Comments No Show 02/08/2024 [facility] No Show Auto mation Encounter Details Date Type Department Care Team (Late st Contact Info) Description 02/08/[address] [place] [address] London Perales MD [address] [place] [address] [place] [address] No Show ([facility] No Show Automation) Allergies No known active allergiesdocumented as of this encounter (statuses as of 02/08/2024) Medications nitroglycerin (NITROSTAT) 0.[address] 1 Tablet under the tongue every 5 minutes as needed for Pain, Chest. 9 Active Ipratropium-Albute rol 0.5-2.5 (3) MG/3ML Inhalation Solution (Duoneb)Indication s:Chronic hypoxemic respiratory failure (HCC),COPD, group C, by GOLD 2017 classification ([facility]) Inhale 3 mL via nebulizer every [...] :COPD, group C, by GOLD 2017 classification ([facility]) INHALE 1 DOSE BY MOUTH IN THE MORNING AND 1 AT BEDTIME 60 Each 4 Active Ventolin HFA 108 (90 Base) MCG/ACT Inhalation Aerosol SolutionIndication s:COPD, group D, by GOLD 2017 classification ([facility] [...] MG Oral Tablet (Ativan)Indication s:Anxiety,ESRD on dialysis ([facility]) 1 tablet 15-20 minutes before dialysis [...] suspected opioid overdose. Seek immediate medical attention. [email or web address] I 1 Each 3 4 Active Morphine Sulfate (Concentrate) 100 MG/5ML Oral Solution Take 0.2 mL by mouth every 4 hours as needed (Pain, Anxiety before dialysis, or Shortness of breath). 30 mL 4 Active Midodrine HCl 5 MG Oral Tablet (Proamatine)Indica tions:ESRD on dialysis (HCC),Hypotension, unspecified hypotension type Take 2 tablets Prior to dialysis 72 Tablet 1 4 Active Metoprolol Tartrate 25 MG Oral Tablet (Lopressor) Take 1 Tablet by mouth in the morning and 1 Tablet before bedtime. 60 Tablet 5 4 Active Hospital, Clinic, or Other Facility Administered Medication Ordered Dose Route Frequency Start Date End Date Status Albuterol Sulfate (Proventil) (5 MG/ML) 0.5% *conc* inhalation solution 2.5 mgIndications:Chronic hypoxemic respiratory failure (HCC),COPD, group C, by GOLD 2017 classification (HCC),[place] miners' lung (HCC) 2.5 mg NEBULIZER PRN 04/24/2023 04/23/2024 Active Albuterol Sulfate (Proventil) (2.5 MG/3ML) 0.083% inhalation solution 2.5 mgIndications:Chronic hypoxemic respiratory failure (HCC),COPD, group C, by GOLD 2017 classification (HCC),[place] miners' lung (HCC) 2.5 mg NEBULIZER PRN 04/24/2023 04/23/2024 Active documented as of this encounter (statuses as of 02/08/2024) Active Problems Problem Noted Date Diagnosed Date COPD, group D, by GOLD 2017 classification 04/29 Overview: Per COPD GOLD Classification [place] 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 States he was advised he was not a surgical candidate. Carotid stenosis, right 07/11/2017 History of stroke 07/11/2017 Overview (02/12/2018): TIA vs lacunar stroke diagnosed on head CT in [place] Apr 2017. Follow up MRI [facility] no infarct. Anxiety 07/11/2017 HTN, goal below 140/90 08/02/2015 Coronary artery disease Dyslipidemia, goal LDL below 100 documented as of this encounter (statuses as of 02/08/2024) Resolved Problems Problem Noted Date Diagnosed Date [...] as of this encounter (statuses as of 02/08/2024) Immunizations Name Administration Dates Next Due COVID-19 [...] encounter Miscellaneous Notes * Telephone Encounter - Hortensia, No Show - 02/08/2024 4:54 AM EST Dear Justin Pinedo, Looks like you missed an appointment with LONDON PERALES on 02/05/2024 at 11:20 AM. If you haven't already rescheduled, you have a couple of options: Reschedule in [email or web address]/[employer] ([place])/scheduling Call us at [phone] Can't make a future appointment? Cancel and let someone else have your spot! It's easy to do via [email or web address] or by calling us. Thanks for trusting [facility] with your care. We hope to see you back in our office soon. Sincerely, ELIDIAKALYNNAOMY HARKINSTASNEEMMARILYN documented in this encounter Plan of Treatment Upcoming Encounters Date Type Department Care Team (Late st Contact Info) Description 02/10/2024 1:00 PM EST Imaging Radiology [address] [address] 02/19/2024 3:30 PM EST Telemedicine Palliative Medicine [facility] [address] [place] [address] Brielle Schmidt MD [facility] [address] 02/25/2024 4:00 PM EST Office Visit Urology, [facility] 132 [facility] [place] [address] Cameron Romeo MD [address] [place] [address] [place] [id number] 02/26/2024 1:40 PM EST Office Visit Family Medicine [address] [place] [phone] London Perales MD [address] [place] [address] [place] [address] 05/11/2024 10:30 AM EST Office Visit Cardiology, [facility] [address] [place] [address] Augustin Mathis, [address] [place] [address] Health Maintenance Due Date Last Done Comments [...] filedocumented as of this encounter Care Teams Motion Picture Projectionist Relationship Specialty Start Date End Date London Perales MD [address] [place] [address] [place] [id number] PCP - General Family Medicine 11/21/21 documented as of this encounter
--- OUTSIDE RECORDS SUMMARY | 2024-03-15 11:59 | External Medical Summary | Summary of Care ---
Author Name Unknown Organization [facility] Address [address] [place] [address] Phone [phone] Care Team Providers Care Toolman Name Role Phone Jody Arora MD Primary Care Provide r Encounter Details Date Type Department Care Team (Late st Contact Info) Description 01/30/2024 Telephone Family Medicine [address] [phone] Jody Arora MD [address] [place] [address] [place] [address] Allergies No known active allergiesdocumented as of this encounter (statuses as of 02/03/2024) Medications nitroglycerin (NITROSTAT) 0.[address] 1 Tablet under the tongue every 5 minutes as needed for Pain, Chest. 08/20/19 19 Active Ipratropium-Albute rol 0.5-2.5 (3) MG/3ML Inhalation Solution (Duoneb)Indication s:Chronic hypoxemic respiratory failure (HCC),COPD, group C, by GOLD 2017 classification ([facility]) Inhale 3 mL via nebulizer every 4 [...] :COPD, group C, by GOLD 2017 classification ([facility]) INHALE 1 DOSE BY MOUTH IN THE MORNING AND 1 AT BEDTIME 60 Each 05/28/19 24 Active Ventolin HFA 108 (90 Base) MCG/ACT Inhalation Aerosol SolutionIndication s:COPD, group D, by GOLD 2017 classification ([facility] [...] Take 1 with snack. 08/15/19 24 Active Metoprolol Tartrate 25 MG Oral Tablet (Lopressor) Take 1 Tablet by mouth in the morning and 1 Tablet before bedtime. 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 Prior to dialysis 08/15/19 24 024 Discontin ued(Refil l) Hospital, Clinic, or Other Facility Administered Medication Ordered Dose Route Frequency Start Date End Date Status Albuterol Sulfate (Proventil) (5 MG/ML) 0.5% *conc* inhalation solution 2.5 mgIndications:Chronic hypoxemic respiratory failure (HCC),COPD, group C, by GOLD 2017 classification ([facility]),[place] miners' lung (HCC) 2.5 mg NEBULIZER PRN 04/24/2023 04/23/2024 Active Albuterol Sulfate (Proventil) (2.5 MG/3ML) 0.083% inhalation solution 2.5 mgIndications:Chronic hypoxemic respiratory failure (HCC),COPD, group C, by GOLD 2017 classification ([facility]),[place] miners' lung (HCC) 2.5 mg NEBULIZER PRN 04/24/2023 04/23/2024 Active documented as of this encounter (statuses as of 02/03/2024) Active Problems Problem Noted Date Diagnosed Date COPD, group D, by GOLD 2017 classification 04/29 Overview: Per COPD GOLD Classification [place] 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 States he was advised he was not a surgical candidate. Carotid stenosis, right 07/11/2017 History of stroke 07/11/2017 Overview (02/12/2018): TIA vs lacunar stroke diagnosed on head CT in [place] Apr 2017. Follow up MRI [facility] no infarct. Anxiety 07/11/2017 HTN, goal below 140/90 08/02/2015 Coronary artery disease Dyslipidemia, goal LDL below 100 documented as of this encounter (statuses as of 02/03/2024) Resolved Problems Problem Noted Date Diagnosed Date [...] as of this encounter (statuses as of 02/03/2024) Immunizations Name Administration Dates Next Due COVID-19 [...] No 05/20/2023 Does the household have a [facility] hospit[facility] source of income? (Household - for [...] Telephone Encounter - Jody Arora MD - 02/03/2024 9:47 AM EST Med sent * Telephone Encounter - Elisa Mcmahon CMA - 01/30/2024 8:37 AM EST Refill request came for [facility] pharmacy for his midodrine. It is now " 10mg , take one tablet by mouth three times a week as needed for before dialysis. Please take 10 mg prior to dialysis instead of scheduled 2.5mg midodrine of HD days" 30 tablets Original prescriber [place] [facility] [place] documented in this encounter Plan of Treatment Upcoming Encounters Date Type Department Care Team (Late st Contact Info) Description 02/05/2024 11:20 AM EST Office Visit Family Medicine [address] [address] Jody Arora MD [address] [place] [address] [place] [address] 02/07/2024 12:30 PM EST Imaging Radiology [address] [place] [address] 02/10/2024 1:00 PM EST Imaging Radiology [facility] [address] [place] [address] 02/19/2024 3:30 PM EST Telemedicine Palliative Medicine [facility] 200 [place] [address] Brielle Schmidt MD [address] [place] [address] [place] [address] 02/25/2024 4:00 PM EST Office Visit Urology, [facility] 132 [facility] [address] Cameron Romeo MD [address] [place] [address] [place] [address] 02/26/2024 1:40 PM EST Office Visit Family Medicine [address] [place] [phone] Jody Arora MD [address] [place] [address] [place] [address] 05/11/2024 10:30 AM EST Office Visit Cardiology, [facility] [address] [place] [address] Augustin Mathis, [address] [place] [address] Health Maintenance Due Date Last Done Comments [...] of this encounter Visit Diagnoses Diagnosis ESRD on dialysis (HCC)- Primary End stage renal disease Hypotension, unspecified hypotension type documented in this encounter Care Teams Toolman Relationship Specialty Start Date End Date Jody Arora MD [address] [place] [address] [place] Chandra [phone] PCP - General Family Medicine 11/21/21 documented as of this encounter
--- OUTSIDE RECORDS SUMMARY | 2024-03-15 11:59 | External Medical Summary | Summary of Care ---
Author Name Unknown Organization [facility] Address [address] [place] [address] Phone [phone] Care Team Providers Care Market Developer Name Role Phone Jody Arora MD Primary Care Provide r Reason for Visit * Reason Onset Date Comments Appointment 02/04/2024 Encounter Details Date Type Department Care Team (Late st Contact Info) Description 02/04/2024 Telephone Rad[address] [place] [address] Rosa Maria Johnson, RT (M) Appointment Allergies No known active allergiesdocumented as [...] MG Oral Tablet (Ativan)Indication s:Anxiety,ESRD on dialysis ([facility]) 1 tablet 15-20 minutes [...] suspected opioid overdose. Seek immediate medical attention. [email or web address] I 1 Each 3 4 Active Morphine [...] by GOLD 2017 classification ([facility]),[place] miners' lung (HCC) 2.5 mg NEBULIZER PRN 04/24/2023 04/23/2024 Active Albuterol Sulfate (Proventil) (2.5 MG/3ML) 0.083% inhalation solution 2.5 mgIndications:Chronic hypoxemic respiratory failure (HCC),COPD, group C, by GOLD 2017 classification ([facility]),[place] miners' lung (HCC) 2.5 mg NEBULIZER PRN 04/24/2023 04/23/2024 Active documented as of this encounter (statuses as of 02/04/2024) Active Problems Problem Noted Date Diagnosed Date COPD, group D, by GOLD 2017 classification 04/29 Overview: Per COPD GOLD Classification [place] 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 States he was advised he was not a surgical candidate. Carotid stenosis, right 07/11/2017 History of stroke 07/11/2017 Overview (02/12/2018): TIA vs lacunar stroke diagnosed on head CT in [place] Apr 2017. Follow up [facility] no infarct. Anxiety 07/11/2017 HTN, goal below [...] encounter Miscellaneous Notes * Telephone Encounter - Rosa Maria Johnson RT (M) - 02/04/2024 11:50 AM EST If you answer "yes" to any of the following, please give us a call at [phone] before coming to your MRI appointment: Do you have a pacemaker/defibrillator? Do you have any electronic or mechanical implants? Have you had a recent colonoscopy in the last 30 days? Are you or ? Do you work around metal or ever gotten metal in your eyes? Any dermals or body piercing you cannot remove? Do you wear an insulin pump or diabetic monitor? Have you had any tattoos or permanent makeup in the last 4 weeks? LM to arrive at 12:30 on 02/10/24 documented in this encounter Plan of Treatment Upcoming Encounters Date Type Department Care Team (Late st Contact Info) Description 02/05/2024 11:20 AM EST Office Visit Family Medicine [address] [phone] Jody Arora MD [address] [place] [address] [place] [address] 02/07/2024 12:30 PM EST Imaging Radiology [address] [place] [address] 02/10/2024 1:00 PM EST Imaging Radiology [facility] [address] [facility] 132 [facility] [place] [address] 02/19/2024 3:30 PM EST Telemedicine Palliative Medicine [facility] 200 [place] [phone] Brielle Schmidt MD [address] [place] [address] [place] [address] 02/25/2024 4:00 PM EST Office Visit Urology, [facility] [place] [address] Cameron Romeo MD [address] [place] [address] 02/26/2024 1:40 PM EST Office Visit Family Medicine [address] [place] [address] Jody Arora MD [address] [place] [address] [place] [address] 05/11/2024 10:30 AM EST Office Visit Cardiology, [facility] [address] [place] [address] Augustin Mathis, 132 [place] [address] Health Maintenance Due Date Last Done Comments [...] filedocumented as of this encounter Care Teams Market Developer Relationship Specialty Start Date End Date Jody Arora MD [address] [place] [address] [place] [address] PCP - General Family Medicine 11/21/21 documented as of this encounter
--- OUTSIDE RECORDS SUMMARY | 2024-03-15 11:59 | External Medical Summary | Summary of Care ---
Author Name Unknown Organization [facility] Address [address] [place] [address] Phone [phone] Care Team Providers Care Warhead Maintenance Specialist Name Role Phone Jody Arora MD Primary Care Provide r Reason for Visit * Reason Onset Date Comments STAIR 02/21/2022 AAA Encounter Details Date Type Department Care Team (Late st Contact Info) Description 02/21/2022 Telephone Vascular Surg [facility] [place] [address] [place] [address] Program, [facility] [address] [place] [address] STAIR (AAA) Allergies No known active allergiesdocumented [...] classification 04/29 Overview: Per COPD GOLD Classification [place] 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 States he was advised he was not a surgical candidate. Carotid stenosis, right 07/11/2017 History of stroke 07/11/2017 Overview (02/12/2018): TIA vs lacunar stroke diagnosed on head CT in [place] Apr 2017. Follow up MRI [facility] [...] (System to Track Abnormalities of Importance Reliably) [phone] * Telephone Encounter - Destiny Enrique LPN - 01/13/2024 9:54 AM EDT Called and spoke to patient. States he is in [facility] and had to cancel. Rescheduled [...] (System to Track Abnormalities of Importance Reliably) [phone] * Telephone Encounter - Destiny Enrique LPN [...] at this time Destiny Enrique LPN Coordinator STACIERRA (System to Track Abnormalities of Importance Reliably) [...] STAIR PCP - SACHIN Enrique LPN Coordinator STACIERRA (System to Track Abnormalities of Importance Reliably) [phone] documented in this encounter Plan of Treatment Upcoming Encounters Date Type Department Care Team (Late st Contact Info) Description 02/10/2024 1:00 PM EST Imaging Radiology [address], [address] [address] 02/19/2024 3:30 PM EST Telemedicine Palliative Medicine [facility] 200 [place] [phone] Brielle Schmidt MD [address] [facility] [place] [address] 02/25/2024 4:00 PM EST Office Visit Urology, [facility] 132 [facility] [place] [address] Cameron Romeo MD [address] [facility] [place]QU[place] [address] 02/26/2024 1:40 PM EST Office Visit Family Medicine [address] [phone] Jody Arora MD [address] [place] [address] [place] [address] 05/11/2024 10:30 AM EST Office Visit Cardiology, [facility] 132 [facility] [place] [address] Augustin Mathis, 132 [facility] [place] [address] Scheduled Orders Name Type Priority Associated Diagnoses [...] rupture documented in this encounter Care Teams Warhead Maintenance Specialist Relationship Specialty Start Date End Date Jody Arora MD [address] [place] [address] [place] Ch[place] [phone] PCP - General Family Medicine 11/21/21 documented as of this encounter
--- OUTSIDE RECORDS SUMMARY | 2024-03-15 11:59 | External Medical Summary | Summary of Care ---
Author Name Unknown Organization [facility] Address [address] [place] [address] Phone [phone] Care Team Providers Care Business Planning Director Name Role Phone London Perales MD Primary Care Provide r Reason for Visit * Reason Onset Date Comments Medication Refill 02/04/2024 Encounter Details Date Type Department Care Team (Late st Contact Info) Description 02/04/2024 Refill Family [address] [place] [address] London Perales MD [address] [place] [address] [place] [address] Allergies No known active allergiesdocumented as of this encounter (statuses as of 02/05/2024) Medications nitroglycerin (NITROSTAT) 0.[address] 1 Tablet under the tongue every 5 minutes as needed for Pain, Chest. 08/20/19 19 Active Ipratropium-Albute rol 0.5-2.5 (3) MG/3ML Inhalation Solution (Duoneb)Indication s:Chronic hypoxemic respiratory failure (HCC),COPD, group C, by GOLD 2017 classification ([facility]) Inhale 3 mL via nebulizer every 4 [...] Oral Tablet (Ativan)Indication s:Anxiety,ESRD on dialysis ([facility]) 1 tablet 15-20 minutes before dialysis sessions [...] suspected opioid overdose. Seek immediate medical attention. [email or web address] I 1 Each 3 01/31/20 24 Active [...] classification ([facility]),[place] miners' lung (HCC) 2.5 mg NEBULIZER PRN 04/24/2023 04/23/2024 Active Albuterol Sulfate (Proventil) (2.5 MG/3ML) 0.083% inhalation solution 2.5 mgIndications:Chronic hypoxemic respiratory failure (HCC),COPD, group C, by GOLD 2017 classification ([facility]),[place] miners' lung (HCC) 2.5 mg NEBULIZER PRN 04/24/2023 04/23/2024 Active documented as of this encounter (statuses as of 02/05/2024) Active Problems Problem Noted Date Diagnosed Date COPD, group D, by GOLD 2017 classification 04/29 Overview: Per COPD GOLD Classification [place] 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 Benign hypertension with chronic kidney disease, stage [...] mass 07/11/2017 Overview (01/12/2021): 2018 biopsy at [facility] per patient "kidney cancer". States he was advised he was not a surgical candidate. Carotid stenosis, right 07/11/2017 History of stroke 07/11/2017 Overview (02/12/2018): TIA vs lacunar stroke diagnosed on head CT in [place] Apr 2017. Follow up MRI [facility] no infarct. Anxiety 07/11/2017 HTN, goal below 140/90 08/02/2015 Coronary artery disease Dyslipidemia, goal LDL below 100 documented as of this encounter (statuses as of 02/05/2024) Resolved Problems Problem Noted Date Diagnosed Date [...] as of this encounter (statuses as of 02/05/2024) Immunizations Name Administration Dates Next Due COVID-19 [...] Bosch LPN - 02/04/2024 2:[address] [facility] Pharmacist calling to get clarification on Medication refill. Metoprolol was changed 01/14/24 at [facility] to Succinate. Pharmacy received a refill of [...] * Telephone Encounter - Mary Yepez Nic, WASTE DISPOSAL LEAKAGE TESTER - 02/04/2024 9:39 AM EST Pending Prescriptions: [...] sided weakness Papillary renal cell carcinoma (HCC) [place] miners' pneumoconiosis (HCC) COPD, group D, by GOLD 2017 classification ([facility]) Labs: Lab Results Component Value Date/Time CREATININE [...] AM EST Office Visit Family Medicine [address] [place] [phone] London Perales MD [address] [place] [address] [place] [address] 02/07/2024 12:30 PM EST Imaging Radiology [address] [place] [address] 02/10/2024 1:00 PM EST Imaging Radiology [address] 132 [facility] [place] [address] 02/19/2024 3:30 PM EST Telemedicine Palliative Medicine [facility] [address] Brielle Schmidt MD [facility] [place] [address] 02/25/2024 4:00 PM EST Office Visit Urology, [facility] [place] [address] Cameron Romeo MD [address] [place] [address] 02/26/2024 1:40 PM EST Office Visit Family [address] [place] [phone] London Perales MD [address] [place] [address] [place] [address] 05/11/2024 10:30 AM EST Office Visit Cardiology, [facility] [place] [address] Augustin Mathis, [address] [place] [address] Health Maintenance Due Date Last Done Comments [...] filedocumented as of this encounter Care Teams Business Planning Director Relationship Specialty Start Date End Date London Perales MD [address] [place] [address] [place] [address] PCP - General Family Medicine 11/21/21 documented as of this encounter
--- OUTSIDE RECORDS SUMMARY | 2024-03-15 12:00 | External Medical Summary | Summary of Care ---
Author Name Unknown Organization [facility] Address [address] [place] [address] Phone [phone] Care Team Providers Care Geoduck Diver Name Role Phone Jody Arora MD Primary Care Provide r Reason for Visit * Reason Onset Date Comments Palliative Care Follow-up 01/30/2024 Encounter Details Date Type Department Care Team (Late st Contact Info) Description 01/30/2024 Telephone Palliative Medicine, [address] 5[address] [place] [address] Brielle Schmidt MD [address] [place] [address] Palliative Care Follow-up Allergies No known active allergiesdocumented as of this encounter (statuses as of 01/30/2024) Medications nitroglycerin (NITROSTAT) 0.[address] [...] Tablet (Ativan)Indication s:Anxiety,ESRD on dialysis ([facility]) 1 tablet 15-20 minutes before [...] (HCC),COPD, group C, by GOLD 2017 classification (HCC),[place] miners' lung (HCC) 2.5 mg NEBULIZER PRN 04/24/2023 04/23/2024 Active Albuterol Sulfate (Proventil) (2.5 MG/3ML) 0.083% inhalation solution 2.5 mgIndications:Chronic hypoxemic respiratory failure (HCC),COPD, group C, by GOLD 2017 classification ([facility]),[place]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 per patient "kidney cancer". States he was advised he was not a surgical candidate. Carotid stenosis, right 07/11/2017 History of stroke 07/11/2017 Overview (02/12/2018): TIA vs lacunar stroke diagnosed on head CT in [place] Apr 2017. Follow up MRI [facility] no infarct. 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 Lives about 30 minutes away from patient, so coordinating a video visit tomorrow is not possible Early next week is also not possible d/t her work schedule She is asking if Dr. Schmidt would be able to call her cell phone around 1pm tomorrow during her lunch hour at work. Her lunch hour is 1-2pm * Telephone Encounter - Cherise Pascual LPN - 01/30/2024 1:07 PM EST Patient currently admitted in [facility] Discharging home today Dr. Schmidt would like to do a video visit tomorrow if possible Call to daughter No answer Left message requesting return call to [phone] documented in this encounter Plan of Treatment Upcoming Encounters Date Type Department Care Team (Late st Contact Info) Description 01/31/2024 1:00 PM EST Telemedicine Palliative Medicine, [facility] 400 [facility] 5th Floor [place] [address] Brielle Schmidt MD [address] [place] [address] 02/03/2024 10:30 AM EST Imaging Radiology [address] [place] [address] 02/05/2024 11:20 AM EST Office Visit Family Medicine [address] [place] [phone] Jody Arora MD [address] [place] [address] [place] [address] 02/10/2024 1:00 PM EST Imaging Radiology [facility] 1st [facility] 132 [facility] [place] [address] 02/19/2024 3:30 PM EST Telemedicine Palliative Medicine [facility] 200 [facility] [phone] Brielle Schmidt MD 400 [facility] [place] [address] 02/25/2024 4:00 PM EST Office Visit Urology, [facility] [place] [address] Cameron Romeo MD [address] [place] [address] 02/26/2024 1:40 PM EST Office Visit Family Medicine [address] [place] [phone] Jody Arora MD [address] [place] [address] [place] [address] 05/11/2024 10:30 AM EST Office Visit Cardiology, [facility] 132 [facility] [place] [address] Augustin Mathis, 132 [facility] [place] [address] Health Maintenance Due Date Last Done Comments [...] filedocumented as of this encounter Care Teams Geoduck Diver Relationship Specialty Start Date End Date Jody Arora MD [address] [place] [address] [place] [address] PCP - General Family Medicine 11/21/21 documented as of this encounter
--- OUTSIDE RECORDS SUMMARY | 2024-03-15 12:00 | External Medical Summary | Summary of Care ---
Author Name Unknown Organization [facility] Address [address] [place] [address] Phone [phone] Care Team Providers Care Video Game Repair Technician Name Role Phone Jody Arora MD Primary Care Provide r Encounter Details Date Type Department Care Team (Late st Contact Info) Description 01/31/2024 1:00 PM EST Telemedicine Palliative Medicine, [address] 5th [place] [address] Jerome Schmidt MD [address] [place] [address] Palliative care encounter*; Anxiety Allergies No known active allergiesdocumented as of this encounter (statuses as of 01/31/2024) Medications nitroglycerin (NITROSTAT) 0.[address] 1 Tablet under the tongue every 5 minutes as needed for Pain, Chest. 08/20/19 19 Active Ipratropium-Albut aleida 0.5-2.5 (3) MG/3ML Inhalation Solution (Duoneb)Indicatio ns:Chronic hypoxemic respiratory failure (HCC),COPD, group C, by GOLD 2017 classification ([facility]) Inhale 3 mL via nebulizer every 4 hours as needed for Wheezing. 120 mL 1 10/18/19 23 Active Menthol-Zinc Oxide 0.44-20.6 % External Ointment (Calmoseptine)Ind ications:Tinea cruris Apply to sore skin twice a day. 71 g 2 01/25/20 23 Active oxygen IN GAS Use 4 L/min(Oxygen ) as directed. Uses "in the evening" Active Fluticasone-Salme terol 250-50 MCG/ACT Inhalation Aerosol Powder Breath Activated (Advair Diskus)Indication s:COPD, group C, by GOLD 2017 classification ([facility]) INHALE 1 DOSE BY MOUTH IN THE MORNING AND 1 AT BEDTIME 60 Each 05/28/19 24 Active Ventolin HFA 108 (90 Base) MCG/ACT Inhalation Aerosol SolutionIndicatio ns:COPD, group D, by GOLD 2017 classification ([facility]) Inhale 2 Puffs by mouth every 4 hours as needed for Wheezing. 18 g 2 05/28/19 24 Active Renal Vitamin 0.8 MG Oral Tablet Take 1 Tablet by mouth daily. With midday meal post dialysis 08/15/19 24 Active Midodrine HCl 5 MG Oral Tablet (Proamatine) Take 1 Tablet by mouth daily. Prior to dialysis 08/15/19 24 Active Calcium Acetate (Phos [...] Active busPIRone HCl 5 MG Oral Tablet (Buspar)Indicatio ns:Anxiety Take 1 Tablet by mouth in the morning and 1 Tablet before bedtime. 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 30 mL 01/31/20 24 Active Morphine Sulfate (Concentrate) 100 MG/5ML Oral Solution Take 0.2 mL by mouth every 4 hours as needed (Pain, Anxiety before dialysis, or Shortness of breath). 15 mL 01/31/20 24 2023 Discontinued(R efill) Naloxone HCL FOR CAREGIVER 0.4 MG/ML IJ SOLN Inject 1 mL into outer thigh for suspected opioid overdose. Seek medical help immediately. 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) 2.5 mg NEBULIZER PRN 04/24/2023 04/23/2024 Active Albuterol Sulfate (Proventil) (2.5 MG/3ML) 0.083% inhalation solution 2.5 mgIndications:Chronic hypoxemic respiratory failure (HCC),COPD, group C, by GOLD 2017 classification (HCC),[place] miners' lung (HCC) 2.5 mg NEBULIZER PRN 04/24/2023 04/23/2024 Active documented as of this encounter (statuses as of 01/31/2024) Active Problems Problem Noted Date Diagnosed Date COPD, group D, by GOLD 2017 classification 04/29 Overview: Per COPD GOLD Classification [place] 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 States he was advised he was not a surgical candidate. Carotid stenosis, right 07/11/2017 History of stroke 07/11/2017 Overview (02/12/2018): TIA vs lacunar stroke diagnosed on head CT in [place] Apr 2017. Follow up MRI [facility] no infarct. Anxiety 07/11/2017 HTN, goal below 140/90 08/02/2015 Coronary artery disease Dyslipidemia, goal LDL below 100 documented as of this encounter (statuses as of 01/31/2024) Resolved Problems Problem Noted Date Diagnosed Date [...] as of this encounter (statuses as of 01/31/2024) Immunizations Name Administration Dates Next Due COVID-19 [...] as of this encounter Progress Notes * Jerome Schmidt MD - 01/31/2024 1:08 PM EST Spoke to daughter Justin had taken his Ativan 0.5mg tablet before dialysis as he usually does, his BP dropped and so he was transferred to [place]. He was given another Ativan 0.5mg tablet before dialysis and became combative, agitated, etc. The next time they gave IV morphine 1mg twice, and he tolerated dialysis really well. They were able to dialyze him well and so today he feels great, he is even working today. Spoke to daughter about use of morphine for anxiety pre dialysis. Patient is very eager to try this. I shared my concerns of it building up in his system, risk of overdose etc. She is also concerned but willing to try anything that can help him. Will send in Roxanol 0.2mL (20mg/mL solution, so 4mg per dose) q4h PRN pain, shortness of breath, or anxiety, and see how he does. Will send in Narcan. Daughter can update me on Saturday with an update via his [employer] or on [employer] as she is an employee here Jerome Schmidt MD Palliative Medicine Physician [facility] documented in this encounter Miscellaneous Notes * Addendum Note - Jerome Schmidt MD - 01/31/2024 2:04 PM ESTAddended by: JEROME SCHMIDT on: 01/31/2024 02:04 PM Modules accepted: Orders documented in this encounter Plan of Treatment Upcoming Encounters Date Type Department Care Team (Late st Contact Info) Description 02/03/2024 10:30 AM EST Imaging Radiology [address] [place] [address] 02/05/2024 11:20 AM EST Office Visit Family Medicine [address] [phone] Jody Arora MD [address] [place] [address] [place] [address] 02/10/2024 1:00 PM EST Imaging Radiology [facility] 1st [facility] 132 [facility] [place] [address] 02/19/2024 3:30 PM EST Telemedicine Palliative Medicine [facility] [address] [facility] [address] [place] [address] Jerome Schmidt MD [address] [place] [address] [place] [address] 02/25/2024 4:00 PM EST Office Visit Urology, [facility] 132 [facility] [place] [address] Cameron Romeo MD [address] [place] [address] [place] [address] 02/26/2024 1:40 PM EST Office Visit Family Medicine [address] [place] [phone] Jody Arora MD [address] [place] [address] [place] [address] 05/11/2024 10:30 AM EST Office Visit Cardiology, [facility] 132 [facility] [place] [address] Augustin Mathis DO 132 [facility] [place] [address] Health Maintenance Due Date Last Done Comments [...] care encounter- Primary Encounter for palliative care Anxiety Anxiety state, unspecified documented in this encounter Care Teams Video Game Repair Technician Relationship Specialty Start Date End Date Jody Arora MD [address] [place] [address] [place] [phone] PCP - General Family Medicine 11/21/21 documented as of this encounter
--- OUTSIDE RECORDS SUMMARY | 2024-03-15 12:00 | External Medical Summary | Summary of Care ---
Author Name Unknown Organization [facility] Address [address] [facility] [address] Phone [phone] Care Team Providers Care Cloth Napping Supervisor Name Role Phone Jody Arora MD Primary Care Provide r Reason for Visit * Reason Onset Date Comments Advice 01/22/2024 Encounter Details Date Type Department Care Team (Late st Contact Info) Description 01/22/2024 Telephone Family [address] [place] [phone] Jody Arora MD [address] [place] [address] [place] [address] Advice Allergies No known [...] s:COPD, group C, by GOLD 2017 classification ([facility]) INHALE 1 DOSE BY MOUTH IN THE MORNING AND 1 AT BEDTIME 60 Each 05/28/19 24 Active Ventolin HFA 108 (90 Base) MCG/ACT Inhalation Aerosol SolutionIndicatio ns:COPD, group D, by GOLD 2017 classification ([facility] [...] MG Oral Tablet (Ativan)Indicatio ns:Anxiety,ESRD on dialysis ([facility]) 1 tablet 15-20 minutes before dialysis sessions 30 Tablet 12/11/19 24 Active Venlafaxine HCl ER 37.5 MG Oral Capsule Extended Release 24 Hour (Effexor XR)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 120 Tablet 5 07/05/19 24 024 Discontinued Hospital, Clinic, or Other Facility Administered Medication Ordered Dose Route Frequency Start Date End Date Status Albuterol Sulfate (Proventil) (5 MG/ML) 0.5% *conc* inhalation solution 2.5 mgIndications:Chronic hypoxemic respiratory failure (HCC),COPD, group C, by GOLD 2017 classification ([facility]),[place] miners' lung (HCC) 2.5 mg NEBULIZER PRN 04/24/2023 04/23/2024 Active Albuterol Sulfate (Proventil) (2.5 MG/3ML) 0.083% inhalation solution 2.5 mgIndications:Chronic hypoxemic respiratory failure (HCC),COPD, group C, by GOLD 2017 classification ([facility]),[place]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 States he was advised he was not a surgical candidate. Carotid stenosis, right 07/11/2017 History of stroke 07/11/2017 Overview (02/12/2018): TIA vs lacunar stroke diagnosed on head CT in [place] Apr 2017. Follow up [facility] no infarct. Anxiety 07/11/2017 HTN, goal below [...] Telephone Encounter - Joey Gonzalez CRNP - 01/30/2024 11:45 AM EST [facility] needing more information about need for hospital bed. Patient has a hx of pressure sores coupled with inability to lay flat due to COPD/CHF and is requiring frequent position changes that are not feasible in a regular bed or recliner chair. * Telephone Encounter - Elisa Mcmahon CMA [...] information to be faxed: Name/Company of caller: [facility] Information requested to be faxed: office notes Fax number: [phone] Attention to Name/Company: [employer] Any additional information?: needs to state that pt needs head elevated due to COPD * Telephone Encounter - Elisa Mcmahon CMA - 01/22/2024 5:04 PM EST Faxed. * Telephone Encounter - Elisa Mcmahon CMA - 01/22/2024 4:55 PM EST Patient wants the order sent to [facility]. Will send once note from [...] Description 02/03/2024 10:30 AM EST Imaging Radiology [address] [place] [address] 02/05/2024 11:20 AM EST Office Visit Family Medicine [address] [place] [phone] Jody Arora MD [address] [place] [address] [place] [address] 02/10/2024 1:00 PM EST Imaging Radiology [facility] 1st [facility] 132 [facility] [place] [address] 02/19/2024 3:30 PM EST Telemedicine Palliative Medicine [facility] [address] [place] [address] Brielle Schmidt MD 400 [facility] [place] [address] 02/25/2024 4:00 PM EST Office Visit Urology, [facility] 132 [facility] [place] [address] Cameron Romeo MD [place] [address] 02/26/2024 1:40 PM EST Office Visit Family Medicine [address] [place] [phone] Jody Arora MD [address] [place] [address] [place] [address] 05/11/2024 10:30 AM EST Office Visit Cardiology, [facility] [address] [place] [address] Augustin Mathis, [address] [place] [address] Health Maintenance Due Date Last Done Comments [...] renal disease) (HCC) End stage renal disease History of stroke Transient ischemic attack (TIA), and cerebral infarction without residual deficits documented in this encounter Care Teams Cloth Napping Supervisor Relationship Specialty Start Date End Date Jody Arora MD [address] [place] [address] [place] [address] PCP - General Family Medicine 11/21/21 documented as of this encounter
--- OUTSIDE RECORDS SUMMARY | 2024-03-15 12:00 | External Medical Summary | Summary of Care ---
Author Name Unknown Organization [facility] Address [address] [place] [address] Phone [phone] Care Team Providers Care Operations Officer Name Role Phone Jody Arora MD Primary Care Provide r Reason for Visit * Reason Onset Date Comments Palliative Care Follow-up 01/31/2024 Encounter Details Date Type Department Care Team (Late st Contact Info) Description 01/31/2024 Telephone Palliative Medicine, [address] [place] [address] Brielle Schmidt MD [address] [place] [phone] Palliative Care Follow-up Allergies No known active allergiesdocumented as of this encounter (statuses as of 01/31/2024) Medications nitroglycerin (NITROSTAT) 0.[address] 1 Tablet under the tongue every 5 minutes as needed for Pain, Chest. 08/20/19 19 Active Ipratropium-Albute rol 0.5-2.5 (3) MG/3ML Inhalation Solution (Duoneb)Indication s:Chronic hypoxemic respiratory failure (HCC),COPD, group C, by GOLD 2017 classification ([facility]) Inhale 3 mL via nebulizer [...] by GOLD 2017 classification ([facility]) INHALE 1 DOSE BY MOUTH IN THE MORNING AND 1 AT BEDTIME 60 Each 05/28/19 24 Active Ventolin HFA 108 (90 Base) MCG/ACT Inhalation Aerosol SolutionIndication s:COPD, group D, by GOLD 2017 classification ([facility]) Inhale 2 Puffs by mouth [...] Tablet (Ativan)Indication s:Anxiety,ESRD on dialysis ([facility]) 1 tablet 15-20 minutes before [...] suspected opioid overdose. Seek immediate medical attention. [email or web address] I 1 Each 3 01/31/20 24 Active Morphine Sulfate (Concentrate) 100 MG/5ML Oral Solution Take 0.2 mL by mouth every 4 hours as needed (Pain, Anxiety before dialysis, or Shortness of breath). 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) 2.5 mg NEBULIZER PRN 04/24/2023 04/23/2024 Active Albuterol Sulfate (Proventil) (2.5 MG/3ML) 0.083% inhalation solution 2.5 mgIndications:Chronic hypoxemic respiratory failure (HCC),COPD, group C, by GOLD 2017 classification (HCC),[place]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 States he was advised he was not a surgical candidate. Carotid stenosis, right 07/11/2017 History of stroke 07/11/2017 Overview (02/12/2018): TIA vs lacunar stroke diagnosed on head CT in [place] Apr 2017. Follow [facility] [...] Telephone Encounter - Cherise Pascual LPN - 01/31/2024 1:57 PM EST [facility] does not have morphine in stock and won't have until at least Saturday Call to daughter Would prefer [facility] pharmacy if they have it as that is at her office Call to [facility] They have in stock, but only in 30ml bottles that cannot be split Pended for qty of 30ml Daughter informed Narcan also pended for [facility] Needs to be nasal spray documented in this encounter Plan of Treatment Upcoming Encounters Date Type Department Care Team (Late st Contact Info) Description 02/03/2024 10:30 AM EST Imaging Radiology [address] [place] [address] 02/05/2024 11:20 AM EST Office Visit Family Medicine [address] [place] [phone] Jody Arora MD [address] [place] [address] [place] [address] 02/10/2024 1:00 PM EST Imaging Radiology [facility] [address] [place] [address] 02/19/2024 3:30 PM EST Telemedicine Palliative Medicine [facility] [address] [place] [phone] Brielle Schmidt MD [address] [place] [address] [place] [address] 02/25/2024 4:00 PM EST Office Visit Urology, [facility] [address] [place] [address] Cameron Romeo MD [address] [place] [address] 02/26/2024 1:40 PM EST Office Visit [address] [place] [phone] Jody Arora MD [address] [place] [address] [place] [address] 05/11/2024 10:30 AM EST Office Visit Cardiology, [facility] [address] [place] [address] Augustin Mathis, [address] [place] [address] Health Maintenance Due Date Last Done Comments [...] filedocumented as of this encounter Care Teams Operations Officer Relationship Specialty Start Date End Date Jody Arora MD [address] [place] [address] [place] [address] PCP - General Family Medicine 11/21/21 documented as of this encounter
--- OUTSIDE RECORDS SUMMARY | 2024-03-15 12:00 | External Medical Summary | Summary of Care ---
Author Name Unknown Organization [facility] Address [address] [facility] [address] Phone [phone] Care Team Providers Care Psychology Department Chair Name Role Phone Jody Arora MD Primary Care Provide r Reason for Visit * Reason Onset Date Comments Advice 01/22/2024 Encounter Details Date Type Department Care Team (Late st Contact Info) Description 01/22/2024 Telephone Family [address] [place] [address] Jody Arora MD [address] [place] [address] [place] [address] Advice Allergies No known [...] s:COPD, group C, by GOLD 2017 classification ([facility]) INHALE 1 DOSE BY MOUTH IN THE MORNING AND 1 AT BEDTIME 60 Each 05/28/19 24 Active Ventolin HFA 108 (90 Base) MCG/ACT Inhalation Aerosol SolutionIndicatio ns:COPD, group D, by GOLD 2017 classification ([facility]) Inhale 2 Puffs by mouth every [...] MG Oral Tablet (Ativan)Indicatio ns:Anxiety,ESRD on dialysis ([facility]) 1 tablet 15-20 minutes before dialysis [...] by GOLD 2017 classification ([facility]),[place] miners' lung (HCC) 2.5 mg NEBULIZER PRN 04/24/2023 04/23/2024 Active Albuterol Sulfate (Proventil) (2.5 MG/3ML) 0.083% inhalation solution 2.5 mgIndications:Chronic hypoxemic respiratory failure (HCC),COPD, group C, by GOLD 2017 classification ([facility]),[place] miners' lung (HCC) 2.5 mg NEBULIZER PRN 04/24/2023 04/23/2024 Active documented as of this encounter (statuses as of 01/30/2024) Active Problems Problem Noted Date Diagnosed Date COPD, group D, by GOLD 2017 classification 04/29 Overview: Per COPD GOLD Classification [place] 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 States he was advised he was not a surgical candidate. Carotid stenosis, right 07/11/2017 History of stroke 07/11/2017 Overview (02/12/2018): TIA vs lacunar stroke diagnosed on head CT in [place] Apr 2017. Follow up [facility] [...] to be faxed: office notes Fax number: [phone] Attention to Name/Company: [employer] Any additional information?: needs to state that pt needs head elevated due to COPD * Telephone Encounter - Elisa Mcmahon CMA - 01/22/2024 5:04 PM EST Faxed. * Telephone Encounter - Elisa Mcmahon CMA - 01/22/2024 4:55 PM EST Patient wants the order sent to [facility] Home care. Will send once [...] 02/03/2024 10:30 AM EST Imaging Radiology [address] [place] [address] 02/05/2024 11:20 AM EST Office Visit Family Medicine [address] [place] [phone] Jody Arora MD [address] [place] [address] [place] [address] 02/10/2024 1:00 PM EST Imaging Radiology [facility] [address] [facility] [place] [address] 02/19/2024 3:30 PM EST Telemedicine Palliative Medicine [facility] [address] [place] [address] Brielle Schmidt MD [address] [facility] [place] [address] 02/25/2024 4:00 PM EST Office Visit Urology, [facility] [address] [place] [address] Cameron Romeo MD [place] [address] 02/26/2024 1:40 PM EST Office Visit Family Medicine [address] [place] [address] Jody Arora MD [address] [place] [address] [place] [address] 05/11/2024 10:30 AM EST Office Visit Cardiology, [facility] [address] [place] [address] Augustin Mathis, [address] [place] [address] Health Maintenance Due Date Last Done Comments [...] deficits documented in this encounter Care Teams Psychology Department Chair Relationship Specialty Start Date End Date Jody Arora MD [address] [place] [address] [place] [address] PCP - General Family Medicine 11/21/21 documented as of this encounter
--- OUTSIDE RECORDS SUMMARY | 2024-03-15 12:00 | External Medical Summary | Summary of Care ---
Author Name Unknown Organization [facility] Address [address] [facility] [address] Phone [phone] Care Team Providers Care Technical Services Assistant Name Role Phone Jody Arora MD Primary Care Provide r Reason for Visit * Reason Onset Date Comments Advice 01/22/2024 Encounter Details Date Type Department Care Team (Late st Contact Info) Description 01/22/2024 Telephone Family [address] [place] [address] Jody Arora MD [address] [place] [address] [place] [address] Advice Allergies No known [...] group C, by GOLD 2017 classification ([facility]),[place] miners' lung (HCC) 2.5 mg NEBULIZER PRN 04/24/2023 04/23/2024 Active Albuterol Sulfate (Proventil) (2.5 MG/3ML) 0.083% inhalation solution 2.5 mgIndications:Chronic hypoxemic respiratory failure (HCC),COPD, group C, by GOLD 2017 classification ([facility]),[place] miners' lung (HCC) 2.5 mg NEBULIZER PRN 04/24/2023 04/23/2024 Active documented as of this encounter (statuses as of 01/30/2024) Active Problems Problem Noted Date Diagnosed Date COPD, group D, by GOLD 2017 classification 04/29 Overview: Per COPD GOLD Classification [place] 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 States he was advised he was not a surgical candidate. Carotid stenosis, right 07/11/2017 History of stroke 07/11/2017 Overview (02/12/2018): TIA vs lacunar stroke diagnosed on head CT in [place] Apr 2017. Follow up [facility] [...] Telephone Encounter - Mary Smith LPN - 01/30/2024 11:59 AM EST Faxed Joey's note to [employer]. * Telephone Encounter - Joey [...] to be faxed: office notes Fax number: [phone] Attention to Name/Company: [employer] Any additional information?: needs to state that pt needs head elevated due to COPD * Telephone Encounter - Elisa Mcmahon CMA - 01/22/2024 5:04 PM EST Faxed. * Telephone Encounter - Elisa Mcmahon CMA - 01/22/2024 4:55 PM EST Patient wants the order sent to [facility] Home care. Will send once note from [...] Description 02/03/2024 10:30 AM EST Imaging Radiology [address] [place] [address] 02/05/2024 11:20 AM EST Office Visit Family Medicine [address] [place] [address] Jody Arora MD [address] [place] [address] [place] [address] 02/10/2024 1:00 PM EST Imaging Radiology [facility]st [facility] [address] [place] [address] 02/19/2024 3:30 PM EST Telemedicine Palliative Medicine [facility] [address] [place] [phone] Brielle Schmidt MD [address] [place], [place] [address] [address] 02/25/2024 4:00 PM EST Office Visit Urology, [facility] [address] [place] [address] Cameron Romeo MD [address] [place] [address] 02/26/2024 1:40 PM EST Office Visit Family Medicine [address] [place] [address] Jody Arora MD [address] [place] [address] [place] [address] 05/11/2024 10:30 AM EST Office Visit Cardiology, [facility] [address] [place] [address] Augustin Mathis, 132 [place] [address] Health Maintenance Due Date Last Done Comments [...] deficits documented in this encounter Care Teams Technical Services Assistant Relationship Specialty Start Date End Date Jody Arora MD [address] [place] [address] [place] [phone] PCP - General Family Medicine 11/21/21 documented as of this encounter
--- OUTSIDE RECORDS SUMMARY | 2024-03-15 12:00 | External Medical Summary | Summary of Care ---
Author Name Unknown Organization [facility] Address [address] [place] [address] Phone [phone] Care Team Providers Care Emergency Room Nurse Name Role Phone Jody Arora MD Primary Care Provide r Encounter Details Date Type Department Care Team (Late st Contact Info) Description 01/31/2024 1:00 PM EST Telemedicine Palliative Medicine, [address] 5th [place] [address] Brielle Schmidt MD [address] [place] [address] Palliative care encounter*; Anxiety Allergies No [...] (Ativan)Indication s:Anxiety,ESRD on dialysis ([facility]) 1 tablet 15-20 minutes before dialysis sessions 30 Tablet 4 Active Venlafaxine HCl ER 37.5 MG Oral Capsule Extended Release 24 Hour (Effexor XR)Indications: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 15 mL 4 Active Naloxone HCL FOR CAREGIVER 0.4 MG/ML IJ SOLN Inject 1 mL into outer thigh for suspected opioid overdose. Seek medical help immediately. [email or web address] 1 mL 3 4 02/01/20 24 Active Hospital, Clinic, or Other Facility Administered Medication Ordered Dose Route Frequency Start Date End Date Status Albuterol Sulfate (Proventil) (5 MG/ML) 0.5% *conc* inhalation solution 2.5 mgIndications:Chronic hypoxemic respiratory failure (HCC),COPD, group C, by GOLD 2017 classification (HCC),[place] miners' lung (HCC) 2.5 mg NEBULIZER PRN 04/24/2023 04/23/2024 Active Albuterol Sulfate (Proventil) (2.5 MG/3ML) 0.083% inhalation solution 2.5 mgIndications:Chronic hypoxemic respiratory failure (HCC),COPD, group C, by GOLD 2017 classification (HCC),[place] miners' lung (HCC) 2.5 mg NEBULIZER PRN 04/24/2023 04/23/2024 Active documented as of this encounter (statuses as of 01/31/2024) Active Problems Problem Noted Date Diagnosed Date COPD, group D, by GOLD 2017 classification 04/29 Overview: Per COPD GOLD Classification [place] 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 States he was advised he was not a surgical candidate. Carotid stenosis, right 07/11/2017 History of stroke 07/11/2017 Overview (02/12/2018): TIA vs lacunar stroke diagnosed on head CT in [place] Apr 2017. Follow up [facility] [...] Progress Notes * Brielle Schmidt MD - 01/31/2024 1:08 PM EST Spoke to daughter Justin had taken his Ativan 0.5mg tablet before dialysis as he usually does, his BP dropped and so he was transferred to [place]. He was given another Ativan 0.5mg tablet [...] on Saturday with an update via his [employer] or on [employer] as she is an employee here Brielle Schmidt MD Palliative Medicine Physician [facility] documented in this encounter Plan of Treatment Upcoming Encounters Date Type Department Care Team (Late st Contact Info) Description 02/03/2024 10:30 AM EST Imaging Radiology [address] [place] [address] 02/05/2024 11:20 AM EST Office Visit Family Medicine [address] [place] [address] Jody Arora MD [address] [place] [address] [place] [address] 02/10/2024 1:00 PM EST Imaging Radiology [address], [address] [place] [address] 02/19/2024 3:30 PM EST Telemedicine Palliative Medicine [facility] [address] [place] [phone] Brielle Schmidt MD [address] [facility] [place] [address] 02/25/2024 4:00 PM EST Office Visit Urology, [facility] [place] [address] Cameron Romeo MD [address] [facility] [place] [address] 02/26/2024 1:40 PM EST Office Visit [address] [phone] Jody Arora MD [address] [place] [address] [address] 05/11/2024 10:30 AM EST Office Visit Cardiology, [facility] [address] [place] [address] Augustin Mathis DO [address] [place] [address] Health Maintenance Due Date Last Done Comments [...] unspecified documented in this encounter Care Teams Emergency Room Nurse Relationship Specialty Start Date End Date Jody Arora MD [address] [place] [address] [place] [address] PCP - General Family Medicine 11/21/21 documented as of this encounter
--- NOTE | 2024-03-15 12:32 | Emergency Department Note ---
Impression & Plan Pulmonary edema, End-stage renal disease (ESRD), Hypoxia, Encephalopathy acute ED Provider Note NAME: TANISHA KINNEY AGE: 83 SEX: M : 1940 ARRIVES VIA: Walk-In INFORMANT: Patient, the patient's family ED PROVIDER(S): Aureliano Quintanilla DO CHIEF COMPLAINT: Weakness and confusion HPI: The patient is an 83-year-old male who presented to the emergency department for an evaluation. The patient has a history of end-stage renal disease. He has been having problems at dialysis recently because he does not do a full course of dialysis. The patient has episodes where he becomes confused. His significant other found him outside after he went outside without telling her. He fell striking his face. He was seen at [facility] emergency department. Patient did have extensive workup including CT of the head neck abdomen and pelvis as well as x-rays. No traumatic injury was noted and the patient was discharged to home. The patient's daughter is a physician. She was concerned because the patient continues to have episodes of confusion. She brought him to our facility for further evaluation. The patient himself denies having any headache nausea or vomiting. He does complain of some shortness of breath. ROS: See above HPI for pertinent positives & negatives. A total of 10 systems reviewed and were otherwise negative. PAST MEDICAL HISTORY: See Below PAST SURGICAL HISTORY: See Below FAMILY HISTORY: See Below SOCIAL HISTORY: See Below HOME MEDICATIONS: See Below ALLERGIES: See Below VITALS: See Below PHYSICAL EXAMINATION: GENERAL: Patient is somewhat listless but follows commands well. EYES: The conjunctivae are clear. The pupils are round and reactive. EARS, NOSE, MOUTH AND THROAT: There was no epistaxis noted. Ecchymosis was noted over the forehead and bridge of the nose. NECK: The neck is nontender and supple. RESPIRATORY: Diminished breath sounds with rales are noted throughout. CARDIOVASCULAR: Cardiac and irregular heart sounds were noted to auscultation. GASTROINTESTINAL: The abdomen is soft. Abdomen is nontender. MUSCULOSKELETAL/EXTREMITIES: There is no evidence of gross deformity full range of motion is noted in the hips and shoulders. SKIN: Skin was warm. Skin was erythematous with pedal edema bilaterally. NEUROLOGIC: Patient is awake and following commands. Strength was symmetric. The patient recognizes his family members. He is oriented to person place and situation. MEDICAL DECISION MAKING: The patient is an 83-year-old male who presented to the emergency department with his daughters and for an evaluation of altered mental status. The patient has a history of end-stage renal disease. He is very ill and at this time is nearing his end-of-life decision making. The patient is very clear about what his wishes are but he has been having some problems with confusion. His daughter did provide his living well and power of litigation attorney associate. The patient has been having dialysis but because of his confusion he has not been having a full run of dialysis recently. He fell this morning but was seen at an outside facility. I discussed the patient's laboratory and radiographic studies with him and his daughters. Given his findings I [facility] have agreed to evaluate the patient in the emergency department for further management and disposition. Triage Nursing notes reviewed. Prior medical records reviewed Vital Signs: reviewed and remarkable for no significant abnormalities Differential diagnosis: Infection, hypoglycemia, electrolyte abnormalities, overdose, toxicologic, cardiac sources, intracerebral event, neurologic, trauma, as well as other pathologies. ER treatment provided: See below Diagnostics interpreted by me: ECG: EKG was obtained in the emergency department. My interpretation is atrial fibrillation at 85 bpm. Right bundle branch block with PVCs were noted. This was compared to a tracing from January 28, 2024. No changes were noted. Cardiac Monitoring: An order was placed for continuous cardiac monitoring. The monitor shows a rate of 78 bpm with sinus rhythm. Laboratory studies: As stated above and show below. Imaging studies: See below. Radiographic imaging was reviewed by myself Consultation(s): I discussed this case with Elizabeth who [facility]. Past Med/Surg History Problem List (Updated 03/15/24 @ 16:42 by Aureliano Quintanilla DO) Encephalopathy acute (Acute) Hypoxia (Acute) Pulmonary edema (Acute) Acute metabolic encephalopathy ESRD on dialysis (Acute) Hypoxia (Acute) COPD exacerbation (Acute) Acute blood loss anemia Metabolic encephalopathy Acute on chronic respiratory failure with hypoxemia Uremia Volume overload (Acute) Pneumonia (Acute) GIB (gastrointestinal bleeding) (Acute) Hyperkalemia (Acute) End-stage renal disease (ESRD) (Acute) Acute on chronic respiratory failure with hypoxia and hypercapnia (Acute) History of DVT (deep vein thrombosis) MOLLY (obstructive sleep apnea) Atrial fibrillation/flutter Hypotension GI bleed Acute respiratory acidosis End-stage renal disease on hemodialysis (Acute) Atrial flutter with rapid ventricular response (Acute) Bifascicular bundle branch block AV fistula Hyperkalemia Pressure injury of buttock, stage 1 Atrial flutter with rapid ventricular response Open thigh wound Acute on chronic diastolic HF (heart failure) Hypercarbia (Acute) Acute hyponatremia (Acute) Edema (Acute) Shortness of breath (Acute) New onset atrial fibrillation Acute on chronic respiratory failure with hypoxia and hypercapnia Atrial fibrillation with RVR (Acute) Hypersomnolent Restrictive lung disease Chronic pulmonary aspiration Volume overload (Acute) End-stage renal disease (ESRD) (Acute) COPD with exacerbation (Acute) Dyslipidemia BPH (benign prostatic hyperplasia) Coronary artery disease S/p stent 1998 HTN (hypertension) Chronic hypoxemic respiratory failure (Acute) Anemia of chronic renal failure Hgb 8-9's per record review COPD (chronic obstructive pulmonary disease) Medical History Multifocal pneumonia Left renal mass Pneumonia due to COVID-19 virus Urinary frequency Hx of blood clots "IN MY LEGS AND 1 IN MY LUNGS A LONG TIME AGO">WAS ON BLOOD THINNERS, CAUSED BY PHLEBITIS History of COVID-19 02/02/22>STILL HAS FATIGUE Adjustment disorder with mixed disturbance of emotions and conduct History of basal cell carcinoma Carotid stenosis, right 50-69% stenosis to right ICA; <50% stenosis to left ICA per 06/22/21 carotid duplex History of stroke 2017 OR 2018 >NO RESIDUAL History of DE (myocardial infarction) 1998 MOLLY and COPD overlap syndrome WEARS 4L O2 AT HS Prediabetes PT DENIES Renal osteodystrophy Papillary renal cell carcinoma WITH MALIGNANCY>NO TREATMENT YET (CURRENT DX) Surgical History History of anesthesia reaction SLOW TO WAKE UP History of arthroscopy LEFT KNEE History of colonoscopy History of tooth extraction History of tonsillectomy History of cataract surgery RT/LEFT History of cholecystectomy History of appendectomy History of heart artery stent 1998>? # STENTS PLACED IN [facility] (FOLLWED BY DR. [facility]ACK SOUSA [facility]) Family History Other Colorectal cancer No family history of adverse response to anesthesia Social History Smoking Status: Never smoker Tobacco Type: Cigarettes Second Hand Exposure: No; Do You Dip or Chew Tobacco: No; Hx Alcohol Use: No Hx Substance Use: No Preferred Language: Albanian Communication Ability: Effective Communication Tools: Other Manager Field Required: No Beliefs That Will Affect Care: None Current Living Situation: Spouse Other Information That Helps Us Care for You: No Feels Safe at Home: Yes Safety Concerns: Feels Safe At This Time Assistive Devices: Denture - Upper, Denture - Lower, Glasses and Walker Allergies Allergies Allergy/AdvReac Type Severity Reaction Status Date / Time No Known Allergies Allergy Unverified 01/28/24 15:36 Home Meds Home Medications Medication Instructions Recorded Confirmed venlafaxine 37.5 mg 37.5 mg PO DAILY 02/01/22 03/15/24 capsule,extended release 24 hr (Effexor XR) nitroglycerin 0.4 mg sublingual 0.4 mg sublingual UD PRN Chest Pain 05/14/23 03/15/24 tablet (Nitrostat) rosuvastatin 10 mg tablet 10 mg PO QAM 05/14/23 03/15/24 buspirone 5 mg tablet 5 mg PO AMHS 08/26/23 03/15/24 glycopyrrolate 9 mcg-formoterol 1 puff inhalation BID 08/26/23 03/15/24 4.8 mcg HFA aerosol inhaler (Bevespi Aerosphere) vitamin B complex-vitamin C-folic 1 tab PO 3XWK 08/26/23 03/15/24 acid 0.8 mg tablet (Izzy-Vianney) ipratropium 0.5 mg-albuterol 3 mg 3 ml NEB Q4 PRN Wheezing 10/31/23 03/15/24 (2.5 mg base)/3 mL nebulization soln calcium acetate(phosphat bind) 667 1,334 mg PO TIDWMEAL 11/10/23 03/15/24 mg capsule lorazepam 0.5 mg tablet 0.5 mg PO DIRECTED 11/10/23 03/15/24 albuterol sulfate 2.5 mg/3 mL 2.5 mg continuous nebulization Q6 12/25/23 03/15/24 (0.083 %) solution for nebulization PRN Wheezing albuterol sulfate 90 mcg/actuation 2 puff inhalation Q4 PRN Wheezing 12/25/23 03/15/24 aerosol inhaler metoprolol succinate 25 mg 25 mg PO BID 03/15/24 03/15/24 tablet,extended release 24 hr midodrine 2.5 mg tablet 2.5 mg PO TID 03/15/24 03/15/24 morphine concentrate 100 mg/5 mL See Rx Instructions .Route .COMPLEX 03/15/24 03/15/24 (20 mg/mL) oral solution Previous Rx's Medication Instructions Recorded apixaban 2.5 mg tablet (Eliquis) 2.5 mg PO BID #60 tabs 08/29/23 guaifenesin 600 mg tablet, 600 mg PO Q12 #60 tabs 12/30/23 extended release 12 hr (Mucinex) midodrine 10 mg tablet 10 mg PO 3XWK PRN before dialysis 01/01/24 #30 tabs Results & Data (ED) Vital Signs Vital Signs - 24 hr 03/15/24 11:50 03/15/24 12:11 03/15/24 12:14 Temperature 36.4 C L Temperature Source Oral Pulse Rate 85 76 Pulse Rate [Right Finger] 83 Pulse Rhythm [Right Finger] Regular Pulse Strength [Right Finger] Normal Respiratory Rate 24 23 Respiratory Effort / Characteristics Non-Labored Spontaneous Non-Labored Respiratory Depth Normal Normal Respiratory Pattern Regular Regular Blood Pressure [Left Arm] 107/74 Blood Pressure Mean [Left Arm] 85 Blood Pressure Position [Left Arm] Lying Pulse Oximetry 85 L Oxygen Delivery Method Room Air Nasal Cannula Oxygen Flow Rate 4 Sepsis Recent Fever Within 48 Hours No Sepsis New/Unexplained Change in Mental Status No Sepsis Action Taken by Nursing No Action Required 03/15/24 14:11 Temperature Temperature Source Pulse Rate Pulse Rate [Right Finger] 88 Pulse Rhythm [Right Finger] Regular Pulse Strength [Right Finger] Normal Respiratory Rate 21 Respiratory Effort / Characteristics Non-Labored Respiratory Depth Normal Respiratory Pattern Regular Blood Pressure [Left Arm] 107/64 Blood Pressure Mean [Left Arm] 78 Blood Pressure Position [Left Arm] Lying Pulse Oximetry Oxygen Delivery Method Nasal Cannula Oxygen Flow Rate 4 Sepsis Recent Fever Within 48 Hours Sepsis New/Unexplained Change in Mental Status Sepsis Action Taken by Snf Medications Current Medication List: was personally reviewed by me Laboratory Data Attestation: I reviewed the patient's lab results. 12/29/24 12:36 03/15/24 12:36 Lab Results 03/15/24 03/15/24 03/15/24 Range/Units 12:16 12:36 14:20 WBC 8.82 (4.8-10.8) K/ul RBC 2.85 L (4.70-6.10) M/uL Hgb 8.7 L (14.0-18.0) g/dl Hct 28.7 L (42.0-52.0) % MCV 100.7 H (80.0-100.0) fL MCH 30.5 (25.0-34.0) pg MCHC 30.3 L (32.0-36.0) g/dL RDW Std Deviation 68.8 H (36.4-46.3) fL RDW Coeff of John 19.4 H (11.5-14.5) % Plt Count 141 (130-400) K/uL MPV 10.0 (9.4-12.4) fL Immature Gran % (Auto) 0.5 % Neut % (Auto) 78.8 % Lymph % (Auto) 6.0 % Deuel % (Auto) 13.8 % Eos % (Auto) 0.6 % Baso % (Auto) 0.3 % Neut # (Auto) 6.95 H (1.40-6.50) K/uL Lymph # (Auto) 0.53 L (1.20-3.40) K/uL Deuel # (Auto) 1.22 H (0.11-0.59) K/uL Eos # (Auto) 0.05 (0.00-0.50) K/uL Baso # (Auto) 0.03 (0.00-0.20) K/uL Immature Gran # (Auto) 0.04 (0.01-0.20) K/uL PT 11.6 (9.0-12.0) Seconds INR 1.1 (0.9-1.1) APTT 29 (21-31) Seconds PTT Ratio 1.1 VBG pH 7.26 L (7.36-7.41) VBG pCO2 72 H (38-50) mmHg VBG pO2 43 mmHg VBG HCO3 32 mmol/L VBG O2 Saturation 66.6 % VBG Base Excess 3.0 mEq/L Sodium 136 (136-145) mmol/L Potassium 4.6 (3.5-5.1) mmol/L Chloride 95 L (98-107) mmol/L Carbon Dioxide 30 (21-32) mmol/L Anion Gap 11 (3-11) BUN 34 H (6-23) mg/dl Creatinine 6.38 H* (0.6-1.4) mg/dl Est Cr Clr Drug Dosing Not Reportable eGFR 8.08 BUN/Creatinine Ratio 5.3 L (10-20) Glucose 105 H (70-99(Fasting)) mg/dl Calcium 8.8 (8.6-10.3) mg/dl Magnesium 2.1 (1.7-2.4) mg/dl Total Bilirubin 0.6 (0.2-1.0) mg/dl AST 23 (13-39) U/L ALT 17 (7-52) U/L Alkaline Phosphatase 74 (34-104) U/L Ammonia 17.0 L (18-72) umol/L Troponin I High Sens 61.9 H* 69.7 H* (0-20) pg/ml B-Natriuretic Peptide 1590 H (0-100) pg/ml Total Protein 6.5 (6.0-8.3) gm/dl Albumin 3.8 (3.4-5.0) gm/dl Globulin 2.7 (2.5-4.0) gm/dl Albumin/Globulin Ratio 1.4 (0.9-2) Lipase 26 (11-82) U/L SARS-CoV-2 (PCR) NEGATIVE (Negative) Influenza Type A (PCR) Negative (Neg) Influenza Type B (PCR) Negative (Neg) RSV (RT-PCR) Negative (Neg) Imaging Data Attestation: I personally reviewed and interpreted this imaging study as follows: My Impression: 1 view chest x-ray was obtained in the emergency department. My interpretation is no free air, cardiomegaly was noted with volume overload, elevated right hemidiaphragm was noted, this was compared to a chest x-rays from January 28, 2024. There appears to be greater volume overload than the previous chest x-ray otherwise no specific changes were noted. Final report pending. Radiologist's Impression: Chest X-Ray 03/15/24 12:09 XR chest 1V portable CLINICAL HISTORY: Chest pain, nonspecific TECHNIQUE: Single frontal radiograph of the chest was obtained. Comparison: Comparison is made to chest radiograph 01/28/2024 FINDINGS: No lines and tubes are seen. Cardiomegaly is noted. The aortic arch is calcified. Lungs are underinflated. Pulmonary vascular prominence is noted. No evidence of pleural effusion or pneumothorax. IMPRESSION: Cardiomegaly and mild pulmonary edema. ACT 112: Negative or not required by law. Electronically signed by: Elio Pacheco M.D. 03/15/2024 1:01 PM Discharge Plan Visit Data Chief Complaint: Swelling/Edema to Extremity Stated Complaint: FULL OF FLUID, POSSIBLE UREMIA ED Provider: Aureliano Quintanilla Discharge Problem: Pulmonary edema, End-stage renal disease (ESRD), Hypoxia, Encephalopathy acute Patient Disposition: Being Evaluated by Hospitalist Discharge Instructions Interventions: ED Discharge Assessment Last Done: 03/15/24 16:00 Discharge Problem: Pulmonary edema Qualifiers: Chronicity: acute Qualified Code(s): J81.0 - Acute pulmonary edema
--- NOTE | 2024-03-15 13:02 | XRay Report ---
XR chest 1V portable CLINICAL HISTORY: Chest pain, nonspecific TECHNIQUE: Single frontal radiograph of the chest was obtained. Comparison: Comparison is made to chest radiograph 01/28/2024 FINDINGS: No lines and tubes are seen. Cardiomegaly is noted. The aortic arch is calcified. Lungs are underinfl ated. Pulmonary vascular prominence is noted. No evidence of pleural effusion or pneumothorax. IMPRESSION: Cardiomegaly and mild pulmonary edema. ACT 112: Negative or not required by law. Electronically signed by: Elio Pacheco M.D. 03/15/2024 1:01 PM
[2024-03-15 13:06] LABS: Basophils # (auto) 0.03 K/uL (0.00-0.20); Basophils % (auto) 0.3 %; Eosinophils # (auto) 0.05 K/uL (0.00-0.50); Eosinophils % (auto) 0.6 %; Hematocrit (blood only) 28.7 % (42.0-52.0); Hemoglobin 8.7 g/dl (14.0-18.0); Immature Granulocytes # (auto) 0.04 K/uL (0.01-0.20); Immature Granulocytes % (auto) 0.5 %; Lymphocytes # (auto) 0.53 K/uL (1.20-3.40); Mean Corpuscular Hemoglobin 30.5 pg (25.0-34.0); Mean Corpuscular Hgb Conc 30.3 g/dL (32.0-36.0); Mean Corpuscular Volume 100.7 fL (80.0-100.0); Monocytes # (auto) 1.22 K/uL (0.11-0.59); Monocytes % (auto) 13.8 %; Neutrophils # (auto) 6.95 K/uL (1.40-6.50); Neutrophils % (auto) 78.8 %; Platelet Count 141 K/uL (130-400); RDW Coefficient of Variation 19.4 % (11.5-14.5); RDW Standard Deviation 68.8 fL (36.4-46.3); Red Blood Count 2.85 M/uL (4.70-6.10); White Blood Count 8.82 K/ul (4.8-10.8)
[2024-03-15 13:24] LABS: Alanine Aminotransferase 17 U/L (7-52); Albumin Globulin Ratio 1.4 (0.9-2); Albumin Level 3.8 gm/dl (3.4-5.0); Alkaline Phosphatase 74 U/L (34-104); Anion Gap 11 (3-11); Aspartate Aminotransferase 23 U/L (13-39); BUN Creatinine Ratio 5.3 (10-20); Bilirubin,Total 0.6 mg/dl (0.2-1.0); Blood Urea Nitrogen 34 mg/dl (6-23); Calcium 8.8 mg/dl (8.6-10.3); Carbon Dioxide 30 mmol/L (21-32); Chloride 95 mmol/L (98-107); Globulin 2.7 gm/dl (2.5-4.0); Glucose 105 mg/dl (70-99(Fasting)); Lipase 26 U/L (11-82); Magnesium 2.1 mg/dl (1.7-2.4); Potassium 4.6 mmol/L (3.5-5.1); Sodium 136 mmol/L (136-145); Total Protein 6.5 gm/dl (6.0-8.3); Troponin I High Sensitivity 61.9 pg/ml (0-20)
[2024-03-15 13:31] LABS: INR 1.1 (0.9-1.1); Partial Thromboplastin Ratio 1.1; Partial Thromboplastin Time 29 Seconds (21-31); Prothrombin Time 11.6 Seconds (9.0-12.0)
[2024-03-15 13:34] LABS: Influenza A virus by PCR Negative (Neg); Influenza B virus by PCR Negative (Neg); RSV by PCR Negative (Neg); SARS CoV2 RNA(COVID-19) Ceph NEGATIVE (Negative)
--- NOTE | 2024-03-15 13:54 | History & Physical Report ---
Date of Service March 15, 2024 Assessment & Plan (1) Acute metabolic encephalopathy: (2) ESRD on dialysis: (3) Atrial fibrillation/flutter: (4) Coronary artery disease: (5) HTN (hypertension): (6) Chronic hypoxemic respiratory failure: (7) COPD (chronic obstructive pulmonary disease): Plan This is an 83yo M with a PMH of ESRD on HD, CAD s/p stent, ESRD on HD, chronic hypoxemic respiratory failure (on 4 L NC O2 at baseline), COPD, HLD, atrial flutter/atrial fibrillation, history of DVT on Eliquis, MOLLY, CVA, prediabetes and other medical problems listed below who was brought in by family for evaluation of AMS and concerns for volume overload. Acute metabolic encephalopathy ESRD on HD with possible uremia HD on [facility] schedule - recent difficulty with outpatient dilaysis due to intermittent confusion/agitation Volume overload, possible uremia contributing to confusion Nephro consulted for dialysis Palliative consult for goals of care discussion/ consideration of dc on hospice if unable to tolerate dialysis (follows with Dr. Schmidt as outpatient) Chronic respiratory failure Volume overload At resp baseline of 100% on 4L NC O2 BNP 1590 CXR with cardiomegaly and mild pulmonary edema Nephro consulted as above for dialysis Trop elevation HS trop 61.9 -> 69.7, continue trend In setting of ESRD No chest pain or acute EKG changes Facial contusions Fall at home Evaluated at [place] [facility] this morning - CT head, CT cervical spine,CT abd/pelvis and CXR -no traumatic injury was noted and patient was discharged home Hgb stable at 8.7 (baseline 8-9), repeat CBC in AM Fall precautions PT/OT based on disposition H/o Atrial fibrillation/flutter Continue Toprol 25mg BIS, Eliquis for anticoagulation Coronary artery disease S/P stent, stable History of DVT (deep vein thrombosis) Continue Eliquis Dyslipidemia Continue atorvastatin DVT Ppx: Eliquis Code status: DNR/DNI PCP: U[facility] Dispo: admitted to med/surg Patient seen in collaboration with Dr. Aguirre. Please see addendum. I spent a total of 75 minutes coordinating, documenting, and providing care for this patient excluding time spent in the performance of separately billed services. History of Present Illness Chief Complaint: confusion, volume overload Primary Care Provider: Jody Arora MD This is an 83yo M with a PMH of ESRD on HD, CAD s/p stent, ESRD on HD, chronic hypoxemic respiratory failure (on 4 L NC O2 at baseline), COPD, HLD, atrial flutter/atrial fibrillation, history of DVT on Eliquis, MOLLY, CVA, prediabetes and other medical problems listed below who was brought in by family for evaluation of AMS and concerns for volume overload. History obtained in part from daughter/POA at bedside, who is a physician, as well as other daughter and . Patient with intermittent confusion that is worsened recently and required more vigilant supervision. Patient got up during the night and attempted to go outside. awakened to him down on the ground near the threshold of the door with a facial injury. and daughter unable to get the patient up on their own so called EMS and was taken to [place] [facility] for further evaluation. Underwent extensive CT imaging for trauma eval including CT head, CT cervical spine,CT abd/pelvis and CXR -no traumatic injury was noted and patient was discharged home. Patient continued to have more frequent episodes of confusion, which prompted daughter to bring him to ED for further evaluation. Has had progressive health decline with complex comorbidities over the past few months and no longer tolerating outpatient dialysis as well with times he is combative. Concern uremia is playing a role in altered mental status as well. Interested in further discussion of goals of care and even potential discharge on hospice. Patient is more clear during time of my evaluation. Denies any pain. No chest pain, shortness of breath, nausea, vomiting, abdominal pain, diarrhea or constipation. Does not make urine. Did not take a.m. meds prior to arrival. DNR/DNI. Allergies Allergy/AdvReac Type Severity Reaction Status Date / Time No Known Allergies Allergy Unverified 01/28/24 15:36 Home Medications Medication Instructions Recorded Confirmed Type venlafaxine 37.5 mg 37.5 mg PO DAILY 02/01/22 03/15/24 History capsule,extended release 24 hr (Effexor XR) nitroglycerin 0.4 mg sublingual 0.4 mg sublingual UD PRN Chest Pain 05/14/23 03/15/24 History tablet (Nitrostat) rosuvastatin 10 mg tablet 10 mg PO QAM 05/14/23 03/15/24 History buspirone 5 mg tablet 5 mg PO AMHS 08/26/23 03/15/24 History glycopyrrolate 9 mcg-formoterol 1 puff inhalation BID 08/26/23 03/15/24 History 4.8 mcg HFA aerosol inhaler (Bevespi Aerosphere) vitamin B complex-vitamin C-folic 1 tab PO 3XWK 08/26/23 03/15/24 History acid 0.8 mg tablet (Izzy-Vianney) apixaban 2.5 mg tablet (Eliquis) 2.5 mg PO BID #60 tabs 08/29/23 03/15/24 Rx ipratropium 0.5 mg-albuterol 3 mg 3 ml NEB Q4 PRN Wheezing 10/31/23 03/15/24 History (2.5 mg base)/3 mL nebulization soln calcium acetate(phosphat bind) 667 1,334 mg PO TIDWMEAL 11/10/23 03/15/24 History mg capsule lorazepam 0.5 mg tablet 0.5 mg PO DIRECTED 11/10/23 03/15/24 History albuterol sulfate 2.5 mg/3 mL 2.5 mg continuous nebulization Q6 12/25/23 03/15/24 History (0.083 %) solution for nebulization PRN Wheezing albuterol sulfate 90 mcg/actuation 2 puff inhalation Q4 PRN Wheezing 12/25/23 03/15/24 History aerosol inhaler guaifenesin 600 mg tablet, 600 mg PO Q12 #60 tabs 12/30/23 03/15/24 Rx extended release 12 hr (Mucinex) midodrine 10 mg tablet 10 mg PO 3XWK PRN before dialysis 01/01/24 03/15/24 Rx #30 tabs metoprolol succinate 25 mg 25 mg PO BID 03/15/24 03/15/24 History tablet,extended release 24 hr midodrine 2.5 mg tablet 2.5 mg PO TID 03/15/24 03/15/24 History morphine concentrate 100 mg/5 mL See Rx Instructions .Route .COMPLEX 03/15/24 03/15/24 History (20 mg/mL) oral solution Past Med/Surg History Problem List (Updated 03/17/24 @ 13:29 by Vera Huff DNP) Advanced care planning/counseling discussion Weakness generalized Anxiety about health Palliative care by specialist Agitation Anemia in ESRD (end-stage renal disease) Encephalopathy acute (Acute) Hypoxia (Acute) Pulmonary edema (Acute) Acute metabolic encephalopathy ESRD on dialysis (Acute) Hypoxia (Acute) COPD exacerbation (Acute) Acute blood loss anemia Metabolic encephalopathy Acute on chronic respiratory failure with hypoxemia Uremia Volume overload (Acute) Pneumonia (Acute) GIB (gastrointestinal bleeding) (Acute) Hyperkalemia (Acute) End-stage renal disease (ESRD) (Acute) Acute on chronic respiratory failure with hypoxia and hypercapnia (Acute) History of DVT (deep vein thrombosis) MOLLY (obstructive sleep apnea) Atrial fibrillation/flutter Hypotension GI bleed Acute respiratory acidosis End-stage renal disease on hemodialysis (Acute) Atrial flutter with rapid ventricular response (Acute) Bifascicular bundle branch block AV fistula Hyperkalemia Pressure injury of buttock, stage 1 Atrial flutter with rapid ventricular response Open thigh wound Acute on chronic diastolic HF (heart failure) Hypercarbia (Acute) Acute hyponatremia (Acute) Edema (Acute) Shortness of breath (Acute) New onset atrial fibrillation Acute on chronic respiratory failure with hypoxia and hypercapnia Atrial fibrillation with RVR (Acute) Hypersomnolent Restrictive lung disease Chronic pulmonary aspiration Volume overload (Acute) End-stage renal disease (ESRD) (Acute) COPD with exacerbation (Acute) Dyslipidemia BPH (benign prostatic hyperplasia) Coronary artery disease S/p stent 1998 HTN (hypertension) Chronic hypoxemic respiratory failure (Acute) Anemia of chronic renal failure Hgb 8-9's per record review COPD (chronic obstructive pulmonary disease) Medical History Multifocal pneumonia Left renal mass Pneumonia due to COVID-19 virus Urinary frequency Hx of blood clots "IN MY LEGS AND 1 IN MY LUNGS A LONG TIME AGO">WAS ON BLOOD THINNERS, CAUSED BY PHLEBITIS History of COVID-19 02/02/22>STILL HAS FATIGUE Adjustment disorder with mixed disturbance of emotions and conduct History of basal cell carcinoma Carotid stenosis, right 50-69% stenosis to right ICA; <50% stenosis to left ICA per 06/22/21 carotid duplex History of stroke 2017 OR 2018 >NO RESIDUAL History of NV (myocardial infarction) 1998 MOLLY and COPD overlap syndrome WEARS 4L O2 AT HS Prediabetes PT DENIES Renal osteodystrophy Papillary renal cell carcinoma WITH MALIGNANCY>NO TREATMENT YET (CURRENT DX) Surgical History History of anesthesia reaction SLOW TO WAKE UP History of arthroscopy LEFT KNEE History of colonoscopy History of tooth extraction History of tonsillectomy History of cataract surgery RT/LEFT History of cholecystectomy History of appendectomy History of heart artery stent 1998>? # STENTS PLACED IN [facility] (FOLLWED BY DR. JACK SOUSA CARDIOLOGY) Family History Other Colorectal cancer No family history of adverse response to anesthesia Social History Smoking Status: Never smoker Tobacco Type: Cigarettes Second Hand Exposure: No; Do You Dip or Chew Tobacco: No; Hx Alcohol Use: No Hx Substance Use: No Preferred Language: Mongolian Communication Ability: Effective Communication Tools: Other Junk Dealer Required: No Beliefs That Will Affect Care: None Current Living Situation: Spouse Feels Safe at Home: Yes Assistive Devices: Cane, Oxygen - Continuous, Walker and Wheelchair Review of Systems Review of Systems: At least ten systems reviewed and negative except as noted in the HPI. Physical Exam Physical Exam: General Appearance: WD/WN, vitals as above, NAD, sitting up in bed, pleasant Head: normocephalic, + facial contusions noted, no bleeding Eyes: normal inspection, PERRL, conjunctivae normal, anicteric sclerae ENT: external ear and nose normal, oropharynx normal Neck: normal visual inspection Respiratory: normal respiratory effort, lungs clear to auscultation. No accessory muscle use Cardiovascular: regular rate, rhythm, normal peripheral pulses, 1+ BLE edema. Vessels: + JVD Chest: normal inspection of chest Abdomen/GI: normal bowel sounds, soft, nontender, no hepatosplenomegaly Extremities/Musculoskeletal: no cyanosis or clubbing, extremities motor strength 5/5 Neurologic: PERRL, EOMI, accommodation nl, no face palsy, no dysarthria, CN's II-XI intact bilaterally and moves all extremities Psychiatric: A+Ox person, place, euthymic affect Skin: no rashes, normal color, warm/dry Results & Data Results & Data Vital Signs (Past 12 Hours) Vital Signs Temp Pulse Pulse Resp BP Pulse Ox O2 Del Method 03/15/24 12:14 76 03/15/24 12:11 83 23 107/74 Nasal Cannula 03/15/24 11:50 36.4 C L 85 24 85 L Room Air O2 Flow Rate 03/15/24 12:14 03/15/24 12:11 4 03/15/24 11:50 Laboratory Results Short CBC 03/15/24 Range/Units 12:36 WBC 8.82 (4.8-10.8) K/ul Hgb 8.7 L (14.0-18.0) g/dl Hct 28.7 L (42.0-52.0) % Plt Count 141 (130-400) K/uL BMP 03/15/24 12:36 Sodium 136 Potassium 4.6 Chloride 95 L Carbon Dioxide 30 BUN 34 H Creatinine 6.38 H* Glucose 105 H Calcium 8.8 Liver Function 03/15/24 Range/Units 12:36 Total Bilirubin 0.6 (0.2-1.0) mg/dl AST 23 (13-39) U/L ALT 17 (7-52) U/L Alkaline Phosphatase 74 (34-104) U/L Albumin 3.8 (3.4-5.0) gm/dl Diagnostic Findings Chest X-Ray 03/15/24 12:09 XR chest 1V portable CLINICAL HISTORY: Chest pain, nonspecific TECHNIQUE: Single frontal radiograph of the chest was obtained. Comparison: Comparison is made to chest radiograph 01/28/2024 FINDINGS: No lines and tubes are seen. Cardiomegaly is noted. The aortic arch is calcified. Lungs are underinflated. Pulmonary vascular prominence is noted. No evidence of pleural effusion or pneumothorax. IMPRESSION: Cardiomegaly and mild pulmonary edema. ACT 112: Negative or not required by law. Electronically signed by: Elio Pacheco M.D. 03/15/2024 1:01 PM Supervising Physician Co-Signing Physician Notes delayed entry date of service noted above Attending Addendum: Case reviewed with the advanced practitioner. I have personally performed a history and physical examination on the patient. I have reviewed the advanced practitioner's documentation on the date of service referenced in note, and I agree with, and take responsibility for the plan of care. please refer to her notes for full details patient seen and examined, records reviewed by myself as well Vini Aguirre MD (5) HTN (hypertension) Hypertension type: unspecified Qualified Code(s): I10 - Essential (primary) h ypertension (7) COPD (chronic obstructive pulmonary disease) COPD type: chronic bronchitis Chronic bronchitis type: simple Qualified Code(s): J41.0 - Simple chronic bronchitis
[2024-03-15 14:17] LABS: HCO3 VBG 32 mmol/L; Oxygen Saturation VBG 66.6 %; PCO2 VBG 72 mmHg (38-50); PO2 VBG 43 mmHg; pH VBG 7.26 (7.36-7.41)
--- NOTE | 2024-03-15 15:24 | Electrocardiogram Report ---
Test Reason : Blood Pressure : */* mmHG Vent. Rate : 85 BPM Atrial Rate : 62 BPM P-R Int : * ms QRS Dur : 146 ms QT Int : 448 ms P-R-T Axes : * -58 131 degrees QTcB Int : 533 ms Atrial Fibrillation with premature ventricular contractions Left axis deviation Right bundle branch block Septal infarct (cited on or before 28-Jan-2024) T wave abnormality, consider lateral ischemia Abnormal ECG When compared with ECG of 28-Jan-2024 09:28, Questionable change in initial forces of Septal leads Nonspecific T wave abnormality no longer evident in Inferior leads Confirmed by Smita Rosenthal (Johny) on 03/15/2024 3:24:31 PM Referred By: REFERRED SELF Confirmed By: Smita Rosenthal
[2024-03-15] MEDS ORDERED: guaiFENesin 600 MG TABCR PO PRN (15:59)
[2024-03-15] MEDS ORDERED: NITROGLYCERIN SL 0.4 MG/TAB TAB SL PRN (15:59)
[2024-03-15] MEDS ORDERED: MoRPHine SULFATE 10 MG/0.5 ML UDP SL PRN (15:59)
[2024-03-15] MEDS ORDERED: ALBUTEROL HFA 8 GM INHALER INH PRN (15:59)
[2024-03-15] MEDS ORDERED: POLYETHYLENE (MIRALAX) 17 GM PACK PO PRN (15:59)
[2024-03-15] MEDS ORDERED: ONDANSETRON INJ 2 MG/ML 2 ML VIAL IV PRN (15:59)
[2024-03-15] MEDS ORDERED: MIDODRINE HCL 10 MG TAB PO PRN (15:59)
[2024-03-15] MEDS ORDERED: CALCIUM ACETATE 667 MG CAP/TAB PO PRN (16:26)
[2024-03-15] MEDS: UMECLIDINIUM/VILANTEROL 62.5/25MCG 7 PUFFS/INHALER INH SCH (17:03)
[2024-03-15] MEDS: MIDODRINE HCL 2.5 MG TAB PO SCH (17:04)
[2024-03-15] MEDS: CALCIUM ACETATE 667 MG CAP/TAB PO SCH (17:55)
[2024-03-15] MEDS: APIXABAN 2.5 MG TAB PO SCH (20:24)
[2024-03-15] MEDS: busPIRone 5 MG TAB PO SCH (20:25)
[2024-03-15] MEDS: METOPROLOL SUCC 25MG EXT REL TAB PO SCH (20:26)
--- NOTE | 2024-03-15 23:33 | Nephrology Consultation ---
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 no epo in HD d/t known Renal cell cancer (4) Agitation: defer to primary service and apalliative to evaluate OP meds to see if any contributing to visual hallucinations and to control pain wile avoiding po nsaids ? role for morphine in halluciations? History of Present Illness Reason for Consultation: ESRD on HD Requesting Physician: Dr Aguirre Attending Physician: Vini Aguirre MD History of Present Illness 83 y/o M whom I'm asked to see for dialysis needs was admitted today d/t worsening challenges achieving adequate dialysis as an outpatient. His OP treatments have been c/b signficant fluid gains, signficant hypotension despite midodrine, agitation and anxiety on dialysis, sacral pain. he dialyzes under my care at [facility]. I am in frequent contact w/ OP dialysis RNs regarding these concerns, including late last week. Complex PMH includes ESRD on HD --TTS in [place] via AVF; CAD status post stent, chronic hypoxemic respiratory failure [4 L oxygen 24/7], COPD and restrictive lung disease (follwos w/ [facility]), atrial flutter/atrial fibrillation w/ RVR diagnosed Dec 2023, DVT on Eliquis, MOLLY, remote stroke w/ residual RLE weakness, at least mild cognitive impairment/ short term memory loss. Also w/ chronic pulmonary aspiration, renal cell carcinoma L 2.6 cm under observation, monoclonal gammopathy, anxiety/depression, chronic sacral pain. with the hypotension, he has been having more frequent falls - including recently, though he cqan give me few details. he has lately been having frequent hosppital admissions most recently last month d/t similar issues. he had HD yesterday but few treatement details available. he had a recent fall and landed on his R face. he tells me "I'm getting used to falling" Denies uncontrolled pain, [place], worse confusion, rectal bleeding, chest pain, palpitations. He endorses worsened LE edema, ongoing exertional dyspnea. Also has visual hallucinations most days of the week he tells me.He follows w/ [facility] palliative care for pain mgt and goals of care primarily. Allergies Allergy/AdvReac Type Severity Reaction Status Date / Time No Known Allergies Allergy Unverified 01/28/24 15:36 Home Medications Medication Instructions Recorded Confirmed Type venlafaxine 37.5 mg 37.5 mg PO DAILY 02/01/22 03/15/24 History capsule,extended release 24 hr (Effexor XR) nitroglycerin 0.4 mg sublingual 0.4 mg sublingual UD PRN Chest Pain 05/14/23 03/15/24 History tablet (Nitrostat) rosuvastatin 10 mg tablet 10 mg PO QAM 05/14/23 03/15/24 History buspirone 5 mg tablet 5 mg PO AMHS 08/26/23 03/15/24 History glycopyrrolate 9 mcg-formoterol 1 puff inhalation BID 08/26/23 03/15/24 History 4.8 mcg HFA aerosol inhaler (Bevespi Aerosphere) vitamin B complex-vitamin C-folic 1 tab PO 3XWK 08/26/23 03/15/24 History acid 0.8 mg tablet (Izzy-Vianney) apixaban 2.5 mg tablet (Eliquis) 2.5 mg PO BID #60 tabs 08/29/23 03/15/24 Rx ipratropium 0.5 mg-albuterol 3 mg 3 ml NEB Q4 PRN Wheezing 10/31/23 03/15/24 History (2.5 mg base)/3 mL nebulization soln calcium acetate(phosphat bind) 667 1,334 mg PO TIDWMEAL 11/10/23 03/15/24 History mg capsule lorazepam 0.5 mg tablet 0.5 mg PO DIRECTED 11/10/23 03/15/24 History albuterol sulfate 2.5 mg/3 mL 2.5 mg continuous nebulization Q6 12/25/23 03/15/24 History (0.083 %) solution for nebulization PRN Wheezing albuterol sulfate 90 mcg/actuation 2 puff inhalation Q4 PRN Wheezing 12/25/23 03/15/24 History aerosol inhaler guaifenesin 600 mg tablet, 600 mg PO Q12 #60 tabs 12/30/23 03/15/24 Rx extended release 12 hr (Mucinex) midodrine 10 mg tablet 10 mg PO 3XWK PRN before dialysis 01/01/24 03/15/24 Rx #30 tabs metoprolol succinate 25 mg 25 mg PO BID 03/15/24 03/15/24 History tablet,extended release 24 hr midodrine 2.5 mg tablet 2.5 mg PO TID 03/15/24 03/15/24 History morphine concentrate 100 mg/5 mL See Rx Instructions .Route .COMPLEX 03/15/24 03/15/24 History (20 mg/mL) oral solution Patient History Medical History Multifocal pneumonia Left renal mass Pneumonia due to COVID-19 virus Urinary frequency Hx of blood clots "IN MY LEGS AND 1 IN MY LUNGS A LONG TIME AGO">WAS ON BLOOD THINNERS, CAUSED BY PHLEBITIS History of COVID-19 02/02/22>STILL HAS FATIGUE Adjustment disorder with mixed disturbance of emotions and conduct History of basal cell carcinoma Carotid stenosis, right 50-69% stenosis to right ICA; <50% stenosis to left ICA per 06/22/21 carotid duplex History of stroke 2017 OR 2018 >NO RESIDUAL History of [place] (myocardial infarction) 1998 MOLLY and COPD overlap syndrome WEARS 4L O2 AT HS Prediabetes PT DENIES Renal osteodystrophy Papillary renal cell carcinoma WITH MALIGNANCY>NO TREATMENT YET (CURRENT DX) Surgical History History of anesthesia reaction SLOW TO WAKE UP History of arthroscopy LEFT KNEE History of colonoscopy History of tooth extraction History of tonsillectomy History of cataract surgery RT/LEFT History of cholecystectomy History of appendectomy History of heart artery stent 1998>? # STENTS PLACED IN [facility] (FOLLWED BY DR. JACK SOUSA CARDIOLOGY) Family History Other Colorectal cancer No family history of adverse response to anesthesia Social History Smoking Status: Never smoker Tobacco Type: Cigarettes Second Hand Exposure: No; Do You Dip or Chew Tobacco: No; Hx Alcohol Use: No Hx Substance Use: No Preferred Language: Danish Communication Ability: Effective Communication Tools: Other [place] Hat Blocker Required: No Beliefs That Will Affect Care: None Current Living Situation: Spouse Other Information That Helps Us Care for You: No Feels Safe at Home: Yes Safety Concerns: Feels Safe At This Time Assistive Devices: Denture - Upper, Denture - Lower, Glasses and Walker Review of Systems 2 Review of Systems: All systems reviewed & are unremarkable except as noted in HPI & below Physical Exam 2 Constitutional: well developed and well nourished Eyes: EOM intact bilaterally ENMT: Mouth: + dry oral mucous membranes Respiratory: normal respiratory effort Auscultation: + breath sounds absent (R base), + diminished lung sounds and + wheezes (scattered L posterior field) Cardiovascular: Rate/Rhythm: + irregularly irregular Heart Sounds: + murmur Extremities: + edema (3+ BLE melvin L) and + AV fistula (+ t/b) Gastrointestinal (Abdomen): Inspection/Auscultation: normal bowel sounds P ercussion/Palpation: abdomen soft; abdomen nontender Musculoskeletal: Extremities: + abnormal strength Skin: no rashes, warm and dry Neurologic: iglesias, fluent speech, no tremor Psychiatric: Orientation: alert and oriented x 3 Results & Data Vital Signs (Past 12 Hours) Vital Signs Temp Pulse Pulse Resp BP Pulse Ox Pulse Ox 03/15/24 22:10 36.5 C 97 H 20 100/63 96 03/15/24 21:45 03/15/24 21:00 76 16 118/76 96 03/15/24 20:26 83 16 97/66 L 96 03/15/24 19:32 74 112/72 100 03/15/24 16:22 78 20 107/69 94 03/15/24 16:12 72 03/15/24 16:09 80 32 H 107/69 94 03/15/24 16:09 94 03/15/24 14:11 88 21 107/64 03/15/24 12:14 76 03/15/24 12:11 83 23 107/74 03/15/24 11:50 36.4 C L 85 24 85 L O2 Del Method O2 Del Method O2 Flow Rate 03/15/24 22:10 Nasal Cannula 4 03/15/24 21:45 Nasal Cannula 4 03/15/24 21:00 Nasal Cannula 4 03/15/24 20:26 Nasal Cannula 4 03/15/24 19:32 Nasal Cannula 4 03/15/24 16:22 Room Air 03/15/24 16:12 03/15/24 16:09 Room Air 03/15/24 16:09 Room Air 03/15/24 14:11 Nasal Cannula 4 03/15/24 12:14 03/15/24 12:11 Nasal Cannula 4 03/15/24 11:50 Room Air Laboratory Results 03/15/24 12:36 03/15/24 12:36 Diagnostic Findings CXR (images personallly reviewed; agree w/ reprot) >> cardiomegaly, mild plm edema (1) Pulmonary edema Chronicity: acute Qualified Code(s): J81.0 - Acute pulmonary edema
[2024-03-15] MEDS: MELATONIN 3 MG TAB PO ONE (23:35)
[2024-03-16 08:22] LABS: Hematocrit (blood only) 29.3 % (42.0-52.0); Hemoglobin 8.8 g/dl (14.0-18.0); Mean Corpuscular Hemoglobin 30.1 pg (25.0-34.0); Mean Corpuscular Volume 100.3 fL (80.0-100.0); Mean Platelet Volume 10.5 fL (9.4-12.4); Platelet Count 139 K/uL (130-400); RDW Coefficient of Variation 19.2 % (11.5-14.5); RDW Standard Deviation 68.4 fL (36.4-46.3); Red Blood Count 2.92 M/uL (4.70-6.10); White Blood Count 7.67 K/ul (4.8-10.8)
[2024-03-16 08:36] LABS: BUN Creatinine Ratio 5.2 (10-20); Calcium 8.7 mg/dl (8.6-10.3); Creatinine Clr Calc Pharmacy 7.3 ml/min; Magnesium 2.2 mg/dl (1.7-2.4); Potassium 4.8 mmol/L (3.5-5.1)
[2024-03-16] MEDS: VENLAFAXINE HCL XR 37.5 MG CAPXR PO SCH (09:05)
[2024-03-16] MEDS: ROSUVASTATIN CALCIUM 10 MG TAB PO SCH (09:05)
[2024-03-16] MEDS: MIDODRINE HCL 10 MG TAB PO PRN (09:05)
--- NOTE | 2024-03-16 09:34 | Palliative Care Consultation ---
Date of Consultation March 16, 2024 Assessment & Plan (1) Palliative care by specialist: Plan Palliative care consulted for assistnce with Goals of Care discussions. Patient was not present on unit today. attempt made to contact pt's Gege by phone, no answer, general VM left. Palliative care will attempt to address GOC with pt/family tomorrow. History of Present Illness Reason for Consultation: goals of care Requesting Physician: Deysi Casey MD Attending Physician: Deysi Casey MD History of Present Illness Justin Pinedo is an 83yo M with a PMH of ESRD on HD, CAD s/p stent, ESRD on HD, chronic hypoxemic respiratory failure (on 4 L NC O2 at baseline), COPD, HLD, atrial flutter/atrial fibrillation, history of DVT on Eliquis, MOLLY, CVA, prediabetes and other medical problems listed below who was brought in by family on 03/15 for AMS and concerns for volume overload. He is hemodialysis dependent and has not been tolerating HD well lately, reportedly due to hypotension, AMS and agitation. Allergies Allergy/AdvReac Type Severity Reaction Status Date / Time No Known Allergies Allergy Unverified 01/28/24 15:36 Home Medications Medication Instructions Recorded Confirmed Type venlafaxine 37.5 mg 37.5 mg PO DAILY 02/01/22 03/15/24 History capsule,extended release 24 hr (Effexor XR) nitroglycerin 0.4 mg sublingual 0.4 mg sublingual UD PRN Chest Pain 05/14/23 03/15/24 History tablet (Nitrostat) rosuvastatin 10 mg tablet 10 mg PO QAM 05/14/23 03/15/24 History buspirone 5 mg tablet 5 mg PO AMHS 08/26/23 03/15/24 History glycopyrrolate 9 mcg-formoterol 1 puff inhalation BID 08/26/23 03/15/24 History 4.8 mcg HFA aerosol inhaler (Bevespi Aerosphere) vitamin B complex-vitamin C-folic 1 tab PO 3XWK 08/26/23 03/15/24 History acid 0.8 mg tablet (Izzy-Vianney) apixaban 2.5 mg tablet (Eliquis) 2.5 mg PO BID #60 tabs 08/29/23 03/15/24 Rx ipratropium 0.5 mg-albuterol 3 mg 3 ml NEB Q4 PRN Wheezing 10/31/23 03/15/24 History (2.5 mg base)/3 mL nebulization soln calcium acetate(phosphat bind) 667 1,334 mg PO TIDWMEAL 11/10/23 03/15/24 History mg capsule lorazepam 0.5 mg tablet 0.5 mg PO DIRECTED 11/10/23 03/15/24 History albuterol sulfate 2.5 mg/3 mL 2.5 mg continuous nebulization Q6 12/25/23 03/15/24 History (0.083 %) solution for nebulization PRN Wheezing albuterol sulfate 90 mcg/actuation 2 puff inhalation Q4 PRN Wheezing 12/25/23 03/15/24 History aerosol inhaler guaifenesin 600 mg tablet, 600 mg PO Q12 #60 tabs 12/30/23 03/15/24 Rx extended release 12 hr (Mucinex) midodrine 10 mg tablet 10 mg PO 3XWK PRN before dialysis 01/01/24 03/15/24 Rx #30 tabs metoprolol succinate 25 mg 25 mg PO BID 03/15/24 03/15/24 History tablet,extended release 24 hr midodrine 2.5 mg tablet 2.5 mg PO TID 03/15/24 03/15/24 History morphine concentrate 100 mg/5 mL See Rx Instructions .Route .COMPLEX 03/15/24 03/15/24 History (20 mg/mL) oral solution Patient History Medical History Multifocal pneumonia Left renal mass Pneumonia due to COVID-19 virus Urinary frequency Hx of blood clots "IN MY LEGS AND 1 IN MY LUNGS A LONG TIME AGO">WAS ON BLOOD THINNERS, CAUSED BY PHLEBITIS History of COVID-19 02/02/22>STILL HAS FATIGUE Adjustment disorder with mixed disturbance of emotions and conduct History of basal cell carcinoma Carotid stenosis, right 50-69% stenosis to right ICA; <50% stenosis to left ICA per 06/22/21 carotid duplex History of stroke 2017 OR 2018 >NO RESIDUAL History of [place] (myocardial infarction) 1998 MOLLY and COPD overlap syndrome WEARS 4L O2 AT HS Prediabetes PT DENIES Renal osteodystrophy Papillary renal cell carcinoma WITH MALIGNANCY>NO TREATMENT YET (CURRENT DX) Surgical History History of anesthesia reaction SLOW TO WAKE UP History of arthroscopy LEFT KNEE History of colonoscopy History of tooth extraction History of tonsillectomy History of cataract surgery RT/LEFT History of cholecystectomy History of appendectomy History of heart artery stent 1998>? # STENTS PLACED IN [facility] (FOLLWED BY DR. JACK SOUSA [facility]) Family History Other Colorectal cancer No family history of adverse response to anesthesia Social History Smoking Status: Never smoker Tobacco Type: Cigarettes Second Hand Exposure: No; Do You Dip or Chew Tobacco: No; Hx Alcohol Use: No Hx Substance Use: No Preferred Language: Turkish Communication Ability: Effective Communication Tools: Other Hog Counter Required: No Beliefs That Will Affect Care: None Current Living Situation: Spouse Other Information That Helps Us Care for You: No Feels Safe at Home: Yes Safety Concerns: Feels Safe At This Time Assistive Devices: Cane, Oxygen - Continuous, Walker and Wheelchair Review of Systems Review of Systems: Other JENNIFER, pt off unit for dialysis Physical Exam Physical Exam: JENNIFER pt off unit for hemodialysis Results & Data Vital Signs (Past 12 Hours) Vital Signs Temp Pulse Resp BP Pulse Ox O2 Del Method O2 Flow Rate 03/16/24 07:46 36.4 C L 70 18 101/65 100 Nasal Cannula 4 03/16/24 07:14 Nasal Cannula 4 03/15/24 22:10 36.5 C 97 H 20 100/63 96 Nasal Cannula 4 03/15/24 21:45 Nasal Cannula 4 Laboratory Results Abnormal lab results 03/15/24 03/15/24 03/16/24 Range/Units 12:36 14:20 07:45 RBC 2.85 L 2.92 L (4.70-6.10) M/uL Hgb 8.7 L 8.8 L (14.0-18.0) g/dl Hct 28.7 L 29.3 L (42.0-52.0) % MCV 100.7 H 100.3 H (80.0-100.0) fL MCHC 30.3 L 30.0 L (32.0-36.0) g/dL RDW Std Deviation 68.8 H 68.4 H (36.4-46.3) fL RDW Coeff of John 19.4 H 19.2 H (11.5-14.5) % Neut # (Auto) 6.95 H (1.40-6.50) K/uL Lymph # (Auto) 0.53 L (1.20-3.40) K/uL Dooly # (Auto) 1.22 H (0.11-0.59) K/uL VBG pH 7.26 L (7.36-7.41) VBG pCO2 72 H (38-50) mmHg Chloride 95 L 94 L (98-107) mmol/L Anion Gap 13 H (3-11) BUN 34 H 40 H (6-23) mg/dl Creatinine 6.38 H* 7.62 H* D (0.6-1.4) mg/dl BUN/Creatinine Ratio 5.3 L 5.2 L (10-20) Glucose 105 H 102 H (70-99(Fasting)) mg/dl Ammonia 17.0 L (18-72) umol/L Troponin I High Sens 61.9 H* 69.7 H* (0-20) pg/ml B-Natriuretic Peptide 1590 H (0-100) pg/ml Diagnostic Findings Chest X-Ray 03/15/24 12:09 XR chest 1V portable CLINICAL HISTORY: Chest pain, nonspecific TECHNIQUE: Single frontal radiograph of the chest was obtained. Comparison: Comparison is made to chest radiograph 01/28/2024 FINDINGS: No lines and tubes are seen. Cardiomegaly is noted. The aortic arch is calcified. Lungs are underinflated. Pulmonary vascular prominence is noted. No evidence of pleural effusion or pneumothorax. IMPRESSION: Cardiomegaly and mild pulmonary edema. ACT 112: Negative or not required by law. Electronically signed by: Elio Pacheco M.D. 03/15/2024 1:01 PM Medications Administered Current Inpatient Medications Acetaminophen (Acetaminophen 325 Mg Tab) 650 mg PO Q4H PRN PRN Reason: pain/fever Stop: 04/14/24 15:58 Albuterol (Albuterol Hfa 8 Gm Inhaler) 2 puffs INH Q4R PRN PRN Reason: Wheezing Stop: 04/14/24 15:58 Albuterol (Albut/Ipratrop 3mg/0.5mg Neb 3 Ml Vial) 3 ml NEB Q4R PRN; Protocol PRN Reason: Wheezing Stop: 04/14/24 15:58 Apixaban (Apixaban 2.5 Mg Tab) 2.5 mg PO BID [facility] Stop: 04/14/24 20:59 Last Admin: 03/16/24 09:07 Dose: 2.5 mg Buspirone HCl (Buspirone 5 Mg Tab) 5 mg PO AMHS [facility] Stop: 04/14/24 20:59 Last Admin: 03/16/24 09:03 Dose: 5 mg Calcium Acetate (Calcium Acetate 667 Mg Cap/Tab) 1,334 mg PO TIDM [facility] Stop: 04/14/24 16:59 Last Admin: 03/16/24 09:04 Dose: 1,334 mg Calcium Acetate (Calcium Acetate 667 Mg Cap/Tab) 667 mg PO PRN PRN PRN Reason: Take 1 tab with snack Stop: 04/14/24 16:25 Guaifenesin (Guaifenesin 600 Mg Tabcr) 600 mg PO Q12 PRN PRN Reason: sob or wheezing Stop: 04/14/24 15:58 Lorazepam (Lorazepam 0.5 Mg Tab) 0.5 mg PO DAILY PRN PRN Reason: 15-20 mins prior ro Dialysis Stop: 04/14/24 15:58 Melatonin (Melatonin 3 Mg Tab) 3 mg PO HS PRN PRN Reason: Sleep Stop: 04/14/24 23:27 Metoprolol Succinate (Metoprolol Succ 25mg Ext Rel Tab) 25 mg PO BID [facility] Stop: 04/14/24 20:59 Last Admin: 03/16/24 09:07 Dose: Not Given Midodrine (Midodrine Hcl 2.5 Mg Tab) 2.5 mg PO TIDM [facility] Stop: 04/14/24 16:59 Last Admin: 03/16/24 09:07 Dose: Not Given Midodrine (Midodrine Hcl 10 Mg Tab) 5 - 10 mg PO PRN PRN PRN Reason: before & during dialysis Stop: 04/14/24 16:28 Last Admin: 03/16/24 09:05 Dose: 10 mg Miscellaneous (Renavite Order Awaiting Action) 1 each N/A QS [facility] Stop: 04/15/24 00:00 Last Admin: 03/16/24 09:07 Dose: Not Given Morphine Sulfate (Morphine Sulfate 10 Mg/0.5 Ml Udp) 4 mg SL Q4H PRN PRN Reason: Pain/anxiety before dialysis Stop: 03/29/24 15:58 Nitroglycerin (Nitroglycerin Sl 0.4 Mg/Tab Tab) 0.4 mg SL PRN PRN PRN Reason: Chest Pain Stop: 04/14/24 15:58 Ondansetron HCl (Ondansetron Inj 2 Mg/Ml 2 Ml Vial) 4 mg IV Q6H PRN PRN Reason: Nausea Stop: 04/14/24 15:58 Polyethylene Glycol (Polyethylene (Miralax) 17 Gm Pack) 17 gm PO DAILY PRN PRN Reason: Constipation Stop: 04/14/24 15:58 Rosuvastatin Calcium (Rosuvastatin Calcium 10 Mg Tab) 10 mg PO QAM [facility] Stop: 04/15/24 08:59 Last Admin: 03/16/24 09:05 Dose: 10 mg Umeclidinium/Vilanterol (Umeclidinium/Vilanterol 62.5/25mcg 7 Puffs/Inhaler) 1 puffs INH DAILY [facility]; Protocol Stop: 04/14/24 16:59 Last Admin: 03/16/24 09:02 Dose: 1 puffs Venlafaxine HCl (Venlafaxine Hcl Xr 37.5 Mg Capxr) 37.5 mg PO DAILY [facility] Stop: 04/15/24 08:59 Last Admin: 03/16/24 09:05 Dose: 37.5 mg PG Care Time/CCT Total # of Minutes Spent Total Time Spent with Patient: Total time spent is greater than 50% in coordination of care (as documented) at patient's floor/unit and/or counseling patient: [place] [address] Inpt Consult Level 1 Patient Type New History Problem Focused Exam Problem Focused Medical Decision Making Straight Forward Diagnoses Palliative care by specialist Z51.5
--- NOTE | 2024-03-16 11:09 | Dialysis Progress Note ---
Date of Service March 16, 2024 Assessment & Plan Admission and Anticipated Discharge Date Admission Date: March 15, 2024 Subjective Assessment & Plan (1) Pulmonary edema: (2) ESRD on dialysis: HD today. extra tx to help with volume overload using AVF and 2K bath based on K 4.6 Cannot really remove fluid because of low BP. on midodrine. he has reached the wall and Agree with palliative med Consult. Will decide tomorrow about the Dialysis plan. (3) Anemia in ESRD (end-stage renal disease): monitor hgfb daily; keep > 8 t o lower demand ischemia; hgb 8.7 today. no epo in HD d/t known Renal cell cancer S---Seen During Dialysis. Has very low BP of 80 Sys. AVF fine but he has infiltration because he moves his arm around. he is sleeping and confused/Obtunded. Physical Exam Constitutional: eyes closed. Unresponsive. Abnormal breathing pattern ENMT: Mouth: + dry oral mucous membranes Respiratory: normal respiratory effort Auscultation: + breath sounds absent (R base), + diminished lung sounds and + wheezes (scattered L posterior field) Cardiovascular: Rate/Rhythm: + irregularly irregular Heart Sounds: + murmur Extremities: + 3 edema and + AV fistula--Lot of infiltration Gastrointestinal (Abdomen): Inspection/Auscultation: normal bowel sounds Percussion/Palpation: abdomen soft; abdomen nontender Musculoskeletal: Extremities: + abnormal strength Skin: no rashes, warm and dry Neurologic: eyes closed, Not following command Results & Data Vital Signs (Past 12 Hours) Vital Signs Temp Pulse Pulse Pulse Resp BP BP 03/16/24 10:30 67 91/56 L 03/16/24 10:00 36.5 C 80 03/16/24 07:46 36.4 C L 70 18 101/65 03/16/24 07:14 Pulse Ox O2 Del Method O2 Flow Rate 03/16/24 10:30 03/16/24 10:00 03/16/24 07:46 100 Nasal Cannula 4 03/16/24 07:14 Nasal Cannula 4
[2024-03-16] MEDS: HEPARIN SOD (PORCINE) 1000 UNIT/ML IV ONE (11:31)
[2024-03-16] MEDS: HEPARIN SOD (PORCINE) 1000 UNIT/ML IV SCH (11:32)
--- NOTE | 2024-03-16 16:47 | Hospitalist Progress Note ---
Date of Service March 16, 2024 Assessment & Plan (1) Acute metabolic encephalopathy: (2) ESRD on dialysis: (3) Atrial fibrillation/flutter: (4) Coronary artery disease: (5) HTN (hypertension): (6) Chronic hypoxemic respiratory failure: (7) COPD (chronic obstructive pulmonary disease): Plan This is an 83yo M with a PMH of ESRD on HD, CAD s/p stent, ESRD on HD, chronic hypoxemic respiratory failure (on 4 L NC O2 at baseline), COPD, HLD, atrial flutter/atrial fibrillation, history of DVT on Eliquis, MOLLY, CVA, prediabetes and other medical problems listed below who was brought in by family for evaluation of AMS and concerns for volume overload. Acute metabolic encephalopathy ESRD on HD with possible uremia and volume overload HD on [facility] schedule - recent difficulty with outpatient dilaysis due to intermittent confusion/agitation Volume overload, possible uremia contributing to confusion Nephro consulted for dialysis Palliative consult for goals of care discussion/ consideration of dc on hospice if unable to tolerate dialysis Palliative plans to eval pt tracey. Chronic respiratory failure Volume overload At resp baseline of 100% on 4L NC O2 BNP 1590 CXR with cardiomegaly and mild pulmonary edema Nephro consulted as above for dialysis , received dialysis today. Trop elevation HS trop 61.9 -> 69.7, continue trend In setting of ESRD No chest pain or acute EKG changes Facial contusions Fall at home Evaluated at [facility] [employer] - CT head, CT cervical spine,CT abd/pelvis and CXR -no traumatic injury was noted and patient was discharged home Hgb stable at 8.7 (baseline 8-9), repeat CBC in AM Fall precautions PT/OT based on disposition H/o Atrial fibrillation/flutter Continue Toprol 25mg BIS, Eliquis for anticoagulation Coronary artery disease S/P stent, stable History of DVT (deep vein thrombosis) Continue Eliquis Dyslipidemia Continue atorvastatin DVT Ppx: Eliquis Code status: DNR/DNI PCP: Ulysses Dispo: admitted to med/surg Admission and Anticipated Discharge Date Admission Date: March 15, 2024 Subjective patient was seen and examined at bedside. Patient was lying in bed, getting hemodialysis, appears lethargic but answering appropriately, oriented x 3. Denies sore throat/cough/belly pain/other review of symptoms. Reports eating okay and moving bowels. Does not make urine. Physical Exam Physical Exam: General Appearance: WD/WN, NAD, On 4 L nasal cannula oxygen. Appears ill/frail/sick/weak Head: normocephalic, + facial contusions noted, no bleeding Eyes: normal inspection, PERRL, conjunctivae normal, anicteric sclerae ENT: external ear and nose normal, oropharynx normal Neck: normal visual inspection Respiratory: normal respiratory effort, lungs clear to auscultation. No accessory muscle use Cardiovascular: regular rate, rhythm, normal peripheral pulses, 2+ BLE edema. Vessels: + JVD Chest: normal inspection of chest Abdomen/GI: normal bowel sounds, soft, nontender, no hepatosplenomegaly Extremities/Musculoskeletal: no cyanosis or clubbing, extremities motor strength 5/5 Neurologic: PERRL, EOMI, accommodation nl, no face palsy, no dysarthria, CN's II-XI intact bilaterally and moves all extremities Psychiatric: A+Ox person, place, euthymic affect Skin: no rashes, normal color, warm/dry Results & Data Results & Data Vital Signs (Past 12 Hours) Vital Signs Temp Pulse Pulse Pulse Resp BP BP 03/16/24 14:28 36.3 C L 80 16 98/60 L 03/16/24 14:13 36.5 C 75 102/46 L 03/16/24 14:00 74 81/56 L 03/16/24 13:30 92 H 125/91 03/16/24 13:00 70 109/48 L 03/16/24 12:30 69 108/86 03/16/24 12:00 77 93/47 L 03/16/24 11:30 69 97/44 L 03/16/24 11:00 57 L 84/46 L 03/16/24 10:30 67 91/56 L 03/16/24 10:00 36.5 C 80 03/16/24 07:46 36.4 C L 70 18 101/65 03/16/24 07:14 Pulse Ox O2 Del Method O2 Flow Rate 03/16/24 14:28 98 Nasal Cannula 4 03/16/24 14:13 03/16/24 14:00 03/16/24 13:30 03/16/24 13:00 03/16/24 12:30 03/16/24 12:00 03/16/24 11:30 03/16/24 11:00 03/16/24 10:30 03/16/24 10:00 03/16/24 07:46 100 Nasal Cannula 4 03/16/24 07:14 Nasal Cannula 4 (5) HTN (hypertension) Hypertension type: unspecified Qualified Code(s): I10 - Essential (primary) hypertension (7) COPD (chronic obstructive pulmonary disease) COPD type: chronic bronchitis Chronic bronchitis type: simple Qualified Code(s): J41.0 - Simple chronic bronchitis
[2024-03-17] MEDS: MELATONIN 3 MG TAB PO PRN (00:03)
[2024-03-17] MEDS ORDERED: MELATONIN 3 MG TAB PO PRN (00:52)
[2024-03-17] MEDS: MELATONIN 3 MG TAB PO STA (01:00)
[2024-03-17 07:11] LABS: Hematocrit (blood only) 26.8 % (42.0-52.0); Mean Corpuscular Hgb Conc 29.9 g/dL (32.0-36.0); Mean Corpuscular Volume 100.4 fL (80.0-100.0); Platelet Count 119 K/uL (130-400); RDW Standard Deviation 68.9 fL (36.4-46.3); Red Blood Count 2.67 M/uL (4.70-6.10); White Blood Count 6.67 K/ul (4.8-10.8)
[2024-03-17 07:24] LABS: BUN Creatinine Ratio 4.2 (10-20); Calcium 8.3 mg/dl (8.6-10.3); Creatinine Clr Calc Pharmacy 13.6 ml/min
--- NOTE | 2024-03-17 10:47 | Nephrology Progress Note ---
Date of Service March 17, 2024 Assessment & Plan Admission and Anticipated Discharge Date Admission Date: March 15, 2024 Subjective Assessment & Plan (1) Pulmonary edema: (2) ESRD on dialysis: HD today. extra tx to help with volume overload using AVF and 2K bath based on K 4.6 Cannot really remove fluid because of low BP. on midodrine. he has reached the wall and Agree with palliative med Consult--consult pending. However patient was very clear that he wants to continue dialysis. Will do dialysis today as per outpt schedule of TTS--he wanted to be done today. take 1.5 to 2 kilo. (3) Anemia in ESRD (end-stage renal disease): monitor hgfb daily; keep > 8 to lower demand ischemia; hgb 8.7 today. no epo in HD d/t known Renal cell cancer S---was very restless and Hypotensive During Dialysis yesterday but now is a different person. very talkative and no issues. SOB is baseline and wanted to do dialysis today and then go home. BP is good now. AVF fine but he has infiltrat ion because he moves his arm around. Physical Exam Constitutional: Awake and alert. No distress ENMT: Mouth: + dry oral mucous membranes Respiratory: normal respiratory effort Auscultation: + breath sounds absent (R base), + diminished lung sounds and + wheezes (scattered L posterior field) Cardiovascular: Rate/Rhythm: + irregularly irregular Heart Sounds: + murmur Extremities: + 3 edema and + AV fistula--Lot of infiltration Gastrointestinal (Abdomen): Inspection/Auscultation: normal bowel sounds Percussion/Palpation: abdomen soft; abdomen nontender Musculoskeletal: Extremities: + abnormal strength Skin: no rashes, warm and dry Neurologic: eyes closed, Not following command Results & Data Vital Signs (Past 12 Hours) Vital Signs Temp Pulse Resp BP Pulse Ox O2 Del Method O2 Flow Rate 03/17/24 09:30 112/65 03/17/24 07:21 Nasal Cannula 4 03/17/24 07:06 36.6 C 90 18 111/76 99 Nasal Cannula 4
--- NOTE | 2024-03-17 10:54 | Palliative Care Consultation ---
Date of Consultation March 17, 2024 Assessment & Plan (1) Anxiety about health: Seems distressed by duration of HD and anxiety becomes overwhelming. Encouraged he try the approach of asking a friend to join him, play card, bring a tablet to play online, deep breathing/meditation/headphones to reduce sensory overload during HD/ He states he would like something to relax him, maybe take a nap through HD. Reviewed we can try low dose Ativan but I would prefer h [id number] non Pharma approaches first, as our goal is to keep his medication regimen as simple as possible. (2) Weakness generalized: (3) Agitation: (4) Palliative care by specialist: (5) Advanced care planning/counseling discussion: Face to Face ACP at bedside with pt for 30minutes He tells me his daughter is a package checker and he would like to have telemed follow up with me while she joins him at home, because he lives [place] [address] away from [facility] and driving to clinic is a hardship. Advised we would work on a telemed date after dc, likely a morning, Zakiya will schedule. He tells me he wants to keep going with HD. He knows it isn't always easy for him but in general he feels better with HD and derives benefit. Introduced Palliative Medicine and explained our role in patient's care. Patient receptive to palliative services for goals of care discussions. Reviewed we are different from hospice, a home health nurse visiting service. Advised we can work on more symptom mgt needs over time. Discussed the changes that can be seen with progressive age + ESRD on HD, and we reviewed that experiencing more complications with HD as we move through the course of chronic disease is a normal part of the illness but harder to manage at times. But so long as he derives benefit and feels QOL is [id number], we would continue doing those interventions providing benefit to him. Plan As above Thank you for allowing us to participate in the ongoing care of this patient. Please page with any additional concerns. Ashly Huff DNP Director, Palliative Medicine History of Present Illness Reason for Consultation: "end of life goals, poss hospice on dc" Attending Physician: Nate Angulo MD History of Present Illness Khris is an 83yo gentleman with acute metabolic encephalopathy, ESRD on HD with possible uremia and volume overload/on TuThSa schedule - recent difficulty with outpatient dialysis due to intermittent confusion/agitation , +Volume overload, possible uremia contributing to confusion; Chronic respiratory failure/Volume overload/at resp baseline of 100% on 4L NC O2/BNP 1590/CXR with cardiomegaly and mild pulmonary edema; +Trop elevation/HS trop 61.9 -> 69.7 in setting of ESRD /no chest pain or acute EKG changes; +Facial contusions/+Fall at home/Evaluated at [facility] - CT head, CT cervical spine,CT abd/pelvis and CXR -no traumatic injury was noted and patient was discharged home; +H/o Atrial fibrillation/flutter, +Coronary artery disease/S/P stent; prior DVT/on Eliquis; +Dyslipidemia Presently OOB to chair, AAOx3 Feels signif improvement since yesterday's HD session tells me his biggest concern is he "starts to lose it about care home through HD and it just gets to be too much, I get all messed up in my head and worked up about things." Feels he might do better if he would have friend with him, playing cards, distraction/conversation Allergies Allergy/AdvReac Type Severity Reaction Status Date / Time No Known Allergies Allergy Unverified 01/28/24 15:36 Home Medications Medication Instructions Recorded Confirmed Type venlafaxine 37.5 mg 37.5 mg PO DAILY 02/01/22 03/15/24 History capsule,extended release 24 hr (Effexor XR) nitroglycerin 0.4 mg sublingual 0.4 mg sublingual UD PRN Chest Pain 05/14/23 03/15/24 History tablet (Nitrostat) rosuvastatin 10 mg tablet 10 mg PO QAM 05/14/23 03/15/24 History buspirone 5 mg tablet 5 mg PO AMHS 08/26/23 03/15/24 History glycopyrrolate 9 mcg-formoterol 1 puff inhalation BID 08/26/23 03/15/24 History 4.8 mcg HFA aerosol inhaler (Bevespi Aerosphere) vitamin B complex-vitamin C-folic 1 tab PO 3XWK 08/26/23 03/15/24 History acid 0.8 mg tablet (Izzy-Vianney) apixaban 2.5 mg tablet (Eliquis) 2.5 mg PO BID #60 tabs 08/29/23 03/15/24 Rx ipratropium 0.5 mg-albuterol 3 mg 3 ml NEB Q4 PRN Wheezing 10/31/23 03/15/24 History (2.5 mg base)/3 mL nebulization soln calcium acetate(phosphat bind) 667 1,334 mg PO TIDWMEAL 11/10/23 03/15/24 History mg capsule lorazepam 0.5 mg tablet 0.5 mg PO DIRECTED 11/10/23 03/15/24 History albuterol sulfate 2.5 mg/3 mL 2.5 mg continuous nebulization Q6 12/25/23 03/15/24 History (0.083 %) solution for nebulization PRN Wheezing albuterol sulfate 90 mcg/actuation 2 puff inhalation Q4 PRN Wheezing 12/25/23 03/15/24 History aerosol inhaler guaifenesin 600 mg tablet, 600 mg PO Q12 #60 tabs 12/30/23 03/15/24 Rx extended release 12 hr (Mucinex) midodrine 10 mg tablet 10 mg PO 3XWK PRN before dialysis 01/01/24 03/15/24 Rx #30 tabs metoprolol succinate 25 mg 25 mg PO BID 03/15/24 03/15/24 History tablet,extended release 24 hr midodrine 2.5 mg tablet 2.5 mg PO TID 03/15/24 03/15/24 History morphine concentrate 100 mg/5 mL See Rx Instructions .Route .COMPLEX 03/15/24 03/15/24 History (20 mg/mL) oral solution Patient History Medical History Multifocal pneumonia Left renal mass Pneumonia due to COVID-19 virus Urinary frequency Hx of blood clots "IN MY LEGS AND 1 IN MY LUNGS A LONG TIME AGO">WAS ON BLOOD THINNERS, CAUSED BY PHLEBITIS History of COVID-19 02/02/22>STILL HAS FATIGUE Adjustment disorder with mixed disturbance of emotions and conduct History of basal cell carcinoma Carotid stenosis, right 50-69% stenosis to right ICA; <50% stenosis to left ICA per 06/22/21 carotid duplex History of stroke 2017 OR 2018 >NO RESIDUAL History of DE (myocardial infarction) 1998 MOLLY and COPD overlap syndrome WEARS 4L O2 AT HS Prediabetes PT DENIES Renal osteodystrophy Papillary renal cell carcinoma WITH MALIGNANCY>NO TREATMENT YET (CURRENT DX) Surgical History History of anesthesia reaction SLOW TO WAKE UP History of arthroscopy LEFT KNEE History of colonoscopy History of tooth extraction History of tonsillectomy History of cataract surgery RT/LEFT History of cholecystectomy History of appendectomy History of heart artery stent 1998>? # STENTS PLACED IN [facility] (FOLLWED BY DR. JACK SOUSA [facility]) Family History Other Colorectal cancer No family history of adverse response to anesthesia Social History Smoking Status: Never smoker Tobacco Type: Cigarettes Second Hand Exposure: No; Do You Dip or Chew Tobacco: No; Hx Alcohol Use: No Hx Substance Use: No Preferred Language: Croatian Communication Ability: Effective Communication Tools: Other Workers Compensation Coordinator Required: No Beliefs That Will Affect Care: None Current Living Situation: Spouse Other Information That Helps Us Care for You: No Feels Safe at Home: Yes Safety Concerns: Feels Safe At This Time Assistive Devices: Cane, Oxygen - Continuous, Walker and Wheelchair Review of Systems Review of Systems: All systems reviewed & are unremarkable except as noted in Subjective Physical Exam Physical Exam: Chronically ill appearing NCAT; facial abrasions buddhism, forehead, nasal bridge PERRLA, EOMIs dentition fair neck supple, no stridor Normal respiratory effort, lungs dim but CTA, no accessory muscle use S1S1, + BLE edema Abd soft, BS+, NTP ALEXANDRE, gen weakness AAOx3 Skin pale, warm Results & Data Vital Signs (Past 12 Hours) Vital Signs Temp Pulse Resp BP Pulse Ox O2 Del Method O2 Flow Rate 03/17/24 09:30 112/65 03/17/24 07:21 Nasal Cannula 4 03/17/24 07:06 36.6 C 90 18 111/76 99 Nasal Cannula 4 Laboratory Results 03/17/24 03/16/24 03/15/24 Range/Units 06:43 07:45 14:20 WBC 6.67 7.67 (4.8-10.8) K/ul RBC 2.67 L 2.92 L (4.70-6.10) M/uL Hgb 8.0 L 8.8 L (14.0-18.0) g/dl Hct 26.8 L 29.3 L (42.0-52.0) % MCV 100.4 H 100.3 H (80.0-100.0) fL MCH 30.0 30.1 (25.0-34.0) pg MCHC 29.9 L 30.0 L (32.0-36.0) g/dL RDW Std Deviation 68.9 H 68.4 H (36.4-46.3) fL RDW Coeff of John 19.0 H 19.2 H (11.5-14.5) % Plt Count 119 L 139 (130-400) K/uL MPV 10.0 10.5 (9.4-12.4) fL Immature Gran % (Auto) % Neut % (Auto) % Lymph % (Auto) % [place] % (Auto) % Eos % (Auto) % Baso % (Auto) % Neut # (Auto) (1.40-6.50) K/uL Lymph # (Auto) (1.20-3.40) K/uL [place] # (Auto) (0.11-0.59) K/uL Eos # (Auto) (0.00-0.50) K/uL Baso # (Auto) (0.00-0.20) K/uL Immature Gran # (Auto) (0.01-0.20) K/uL PT (9.0-12.0) Seconds INR (0.9-1.1) APTT (21-31) Seconds PTT Ratio VBG pH (7.36-7.41) VBG pCO2 (38-50) mmHg VBG pO2 mmHg VBG HCO3 mmol/L VBG O2 Saturation % VBG Base Excess mEq/L Sodium 136 136 (136-145) mmol/L Potassium 4.0 4.8 (3.5-5.1) mmol/L Chloride 99 94 L (98-107) mmol/L Carbon Dioxide 31 29 (21-32) mmol/L Anion Gap 6 13 H (3-11) BUN 17 D 40 H (6-23) mg/dl Creatinine 4.09 H D 7.62 H* D (0.6-1.4) mg/dl Est Cr Clr Drug Dosing 13.6 7.3 eGFR 13.78 6.53 BUN/Creatinine Ratio 4.2 L 5.2 L (10-20) Glucose 148 H 102 H (70-99(Fasting)) mg/dl Calcium 8.3 L 8.7 (8.6-10.3) mg/dl Magnesium 2.2 (1.7-2.4) mg/dl Total Bilirubin (0.2-1.0) mg/dl AST (13-39) U/L ALT (7-52) U/L Alkaline Phosphatase (34-104) U/L Ammonia (18-72) umol/L Troponin I High Sens 69.7 H* (0-20) pg/ml B-Natriuretic Peptide (0-100) pg/ml Total Protein (6.0-8.3) gm/dl Albumin (3.4-5.0) gm/dl Globulin (2.5-4.0) gm/dl Albumin/Globulin Ratio (0.9-2) Lipase (11-82) U/L SARS-CoV-2 (PCR) (Negative) Influenza Type A (PCR) (Neg) Influenza Type B (PCR) (Neg) RSV (RT-PCR) (Neg) 03/15/24 03/15/24 Range/Units 12:36 12:16 WBC 8.82 (4.8-10.8) K/ul RBC 2.85 L (4.70-6.10) M/uL Hgb 8.7 L (14.0-18.0) g/dl Hct 28.7 L (42.0-52.0) % MCV 100.7 H (80.0-100.0) fL MCH 30.5 (25.0-34.0) pg MCHC 30.3 L (32.0-36.0) g/dL RDW Std Deviation 68.8 H (36.4-46.3) fL RDW Coeff of John 19.4 H (11.5-14.5) % Plt Count 141 (130-400) K/uL MPV 10.0 (9.4-12.4) fL Immature Gran % (Auto) 0.5 % Neut % (Auto) 78.8 % Lymph % (Auto) 6.0 % [place] % (Auto) 13.8 % Eos % (Auto) 0.6 % Baso % (Auto) 0.3 % Neut # (Auto) 6.95 H (1.40-6.50) K/uL Lymph # (Auto) 0.53 L (1.20-3.40) K/uL [place] # (Auto) 1.22 H (0.11-0.59) K/uL Eos # (Auto) 0.05 (0.00-0.50) K/uL Baso # (Auto) 0.03 (0.00-0.20) K/uL Immature Gran # (Auto) 0.04 (0.01-0.20) K/uL PT 11.6 (9.0-12.0) Seconds INR 1.1 (0.9-1.1) APTT 29 (21-31) Seconds PTT Ratio 1.1 VBG pH 7.26 L (7.36-7.41) VBG pCO2 72 H (38-50) mmHg VBG pO2 43 mmHg VBG HCO3 32 mmol/L VBG O2 Saturation 66.6 % VBG Base Excess 3.0 mEq/L Sodium 136 (136-145) mmol/L Potassium 4.6 (3.5-5.1) mmol/L Chloride 95 L (98-107) mmol/L Carbon Dioxide 30 (21-32) mmol/L Anion Gap 11 (3-11) BUN 34 H (6-23) mg/dl Creatinine 6.38 H* (0.6-1.4) mg/dl Est Cr Clr Drug Dosing Not Reportable eGFR 8.08 BUN/Creatinine Ratio 5.3 L (10-20) Glucose 105 H (70-99(Fasting)) mg/dl Calcium 8.8 (8.6-10.3) mg/dl Magnesium 2.1 (1.7-2.4) mg/dl Total Bilirubin 0.6 (0.2-1.0) mg/dl AST 23 (13-39) U/L ALT 17 (7-52) U/L Alkaline Phosphatase 74 (34-104) U/L Ammonia 17.0 L (18-72) umol/L Troponin I High Sens 61.9 H* (0-20) pg/ml B-Natriuretic Peptide 1590 H (0-100) pg/ml Total Protein 6.5 (6.0-8.3) gm/dl Albumin 3.8 (3.4-5.0) gm/dl Globulin 2.7 (2.5-4.0) gm/dl Albumin/Globulin Ratio 1.4 (0.9-2) Lipase 26 (11-82) U/L SARS-CoV-2 (PCR) NEGATIVE (Negative) Influenza Type A (PCR) Negative (Neg) Influenza Type B (PCR) Negative (Neg) RSV (RT-PCR) Negative (Neg) Diagnostic Findings Chest X-Ray 03/15/24 12:09 XR chest 1V portable CLINICAL HISTORY: Chest pain, nonspecific TECHNIQUE: Single frontal radiograph of the chest was obtained. Comparison: Comparison is made to chest radiograph 01/28/2024 FINDINGS: No lines and tubes are seen. Cardiomegaly is noted. The aortic arch is calcified. Lungs are underinflated. Pulmonary vascular prominence is noted. No evidence of pleural effusion or pneumothorax. IMPRESSION: Cardiomegaly and mild pulmonary edema. ACT 112: Negative or not required by law. Electronically signed by: Elio Pacheco M.D. 03/15/2024 1:01 PM PG Care Time/CCT Total # of Minutes Spent Total Time Spent with Patient: Total time spent is greater than 50% in coordination of care (as documented) at patient's floor/unit and/or counseling patient: I spent 90 minutes overall addressing this case: 15 min in medical data review/discussion with referring provider(s) and/or preparation for the visit 15 min in direct interaction with the patient/exam 30 min in Advance Care Planning/Goals of Care discussions as det lópez above in note (must be >16min) 15 min in subsequent review and synthesis of assessment and plan 15 min communicating with other providers regarding the patient's case: primary team, nephro, nursing Advanced Care Planning 23071 Advanced Care Planning 30 [place] [address] IN/OBS CONSULT LVL 4,60M (25 - SIGNIFICANT, SEPARATELY IDENTIFIABLE ) Patient Type New Medical Decision Making High Complexity Diagnoses Anxiety about health R45.89 Weakness generalized R53.1 Agitation R45.1 Palliative care by specialist Z51.5 Advanced care planning/counseling discussion Z71.89 Additional Codes Advanced Care Planning - 86774 Advanced Care Planning 30 Min: 60074 Advanced Care Planning 30 Min ([id number])
[2024-03-17] MEDS: LORazepam 0.5 MG TAB PO PRN (12:11)
[2024-03-17] MEDS: NEPHROCAPS PO SCH (16:47)
--- NOTE | 2024-03-17 17:24 | Hospitalist Progress Note ---
Date of Service March 17, 2024 Assessment & Plan (1) Acute metabolic encephalopathy: (2) ESRD on dialysis: (3) Atrial fibrillation/flutter: (4) Coronary artery disease: (5) HTN (hypertension): (6) Chronic hypoxemic respiratory failure: (7) COPD (chronic obstructive pulmonary disease): Plan This is an 83yo M with a PMH of ESRD on HD, CAD s/p stent, ESRD on HD, chronic hypoxemic respiratory failure (on 4 L NC O2 at baseline), COPD, HLD, atrial flutter/atrial fibrillation, history of DVT on Eliquis, MOLLY, CVA, prediabetes and other medical problems listed below who was brought in by family for evaluation of AMS and concerns for volume overload. Acute metabolic encephalopathy ESRD on HD with possible uremia and volume overload HD on TuThSa schedule - recent difficulty with outpatient dilaysis due to intermittent confusion/agitation Volume overload, possible uremia contributing to confusion Nephro consulted for dialysis Palliative consult for goals of care discussion/ consideration of dc on hospice if unable to tolerate dialysis Appreciate palliative care input and recommendation Continue hemodialysis as of now and further recommendation following more discussion with the family members Patient remains medically stable and seems to be back to his baseline Chronic respiratory failure Volume overload At resp baseline of 100% on 4L NC O2 BNP 1590 CXR with cardiomegaly and mild pulmonary edema Nephro consulted as above for dialysis , received dialysis today. Does not have any significant evidence of fluid overload Trop elevation HS trop 61.9 -> 69.7, continue trend In setting of ESRD No chest pain or acute EKG changes No ACS and denies any more cardiac symptoms but follow-up Facial contusions Fall at home Evaluated at [facility] [employer] - CT head, CT cervical spine,CT abd/pelvis and CXR -no traumatic injury was noted and patient was discharged home Hgb stable at 8.7 (baseline 8-9), repeat CBC in AM Fall precautions PT/OT based on disposition H/o Atrial fibrillation/flutter Continue Toprol 25mg BIS, Eliquis for anticoagulation Coronary artery disease S/P stent, stable History of DVT (deep vein thrombosis) Continue Eliquis Dyslipidemia Continue atorvastatin DVT Ppx: Eliquis Code status: DNR/DNI PCP: Ulysses Dispo: admitted to med/surg Admission and Anticipated Discharge Date Admission Date: March 15, 2024 Subjective 03/17/2024 Patient was seen and examined in medical floor He is sitting on a chair and denies any significant symptoms Has been ongoing dialysis and was evaluated by palliative care today Review of Systems Review of Systems: All systems reviewed and are unremarkable except as noted below Physical Exam Physical Exam: Sitting on a chair without any acute distress Constitutional: well developed, well nourished and + obese; not ill appearing Eyes: PERRL, conjunctivae normal, anicteric sclerae ENMT: external ear and nose normal, oropharynx normal Neck: trachea midline, no thyromegaly Respiratory: no respiratory distress Auscultation: lungs clear to auscultation bilaterally Cardiovascular: Rate/Rhythm: regular rate and regular rhythm; not tachycardic Heart Sounds: normal S1 and normal S2; no murmur Extremities: + edema (Trace edema bilaterally) Gastrointestinal (Abdomen): Inspection/Auscultation: + abdomen distended and normal bowel sounds Percussion/Palpation: abdomen soft; abdomen nontender Musculoskeletal: No acute arthritis involving any of the joint Neurologic: normal touch/pain/proprioception and moves all extremities; no focal motor deficits Lymphatic: no cervical or axillary lymphadenopathy Results & Data Results & Data Vital Signs (Past 12 Hours) Vital Signs Temp Pulse Pulse Pulse Resp BP BP 03/17/24 15:57 36.3 C L 85 18 105/59 L 03/17/24 15:54 36.3 C L 82 110/63 03/17/24 15:30 82 103/59 L 03/17/24 15:00 73 95/59 L 03/17/24 14:30 80 111/62 03/17/24 14:00 67 99/65 L 03/17/24 13:30 70 99/68 L 03/17/24 13:00 61 129/60 03/17/24 12:29 69 110/66 03/17/24 12:29 36.3 C L 83 03/17/24 09:30 112/65 03/17/24 07:21 03/17/24 07:06 36.6 C 90 18 111/76 Pulse Ox O2 Del Method O2 Flow Rate 03/17/24 15:57 97 Nasal Cannula 4 03/17/24 15:54 03/17/24 15:30 03/17/24 15:00 03/17/24 14:30 03/17/24 14:00 03/17/24 13:30 03/17/24 13:00 03/17/24 12:29 03/17/24 12:29 03/17/24 09:30 03/17/24 07:21 Nasal Cannula 4 03/17/24 07:06 99 Nasal Cannula 4 Laboratory Results Short CBC 03/17/24 Range/Units 06:43 WBC 6.67 (4.8-10.8) K/ul Hgb 8.0 L (14.0-18.0) g/dl Hct 26.8 L (42.0-52.0) % Plt Count 119 L (130-400) K/uL BMP 03/17/24 06:43 Sodium 136 Potassium 4.0 Chloride 99 Carbon Dioxide 31 BUN 17 D Creatinine 4.09 H D Glucose 148 H Calcium 8.3 L Medications Administered Current Inpatient Medications Acetaminophen (Acetaminophen 325 Mg Tab) 650 mg PO Q4H PRN PRN Reason: pain/fever Stop: 04/14/24 15:58 Albuterol (Albuterol Hfa 8 Gm Inhaler) 2 puffs INH Q4R PRN PRN Reason: Wheezing Stop: 04/14/24 15:58 Albuterol (Albut/Ipratrop 3mg/0.5mg Neb 3 Ml Vial) 3 ml NEB Q4R PRN; Protocol PRN Reason: Wheezing Stop: 04/14/24 15:58 Apixaban (Apixaban 2.5 Mg Tab) 2.5 mg PO BID MARCOS Stop: 04/14/24 20:59 Last Admin: 03/17/24 08:43 Dose: 2.5 mg Buspirone HCl (Buspirone 5 Mg Tab) 5 mg PO AMHS MARCOS Stop: 04/14/24 20:59 Last Admin: 03/17/24 08:43 Dose: 5 mg Calcium Acetate (Calcium Acetate 667 Mg Cap/Tab) 1,334 mg PO TIDM MARCOS Stop: 04/14/24 16:59 Last Admin: 03/17/24 16:10 Dose: 1,334 mg Calcium Acetate (Calcium Acetate 667 Mg Cap/Tab) 667 mg PO PRN PRN PRN Reason: Take 1 tab with snack Stop: 04/14/24 16:25 Guaifenesin (Guaifenesin 600 Mg Tabcr) 600 mg PO Q12 PRN PRN Reason: sob or wheezing Stop: 04/14/24 15:58 Lorazepam (Lorazepam 0.5 Mg Tab) 0.5 mg PO DAILY PRN PRN Reason: 15-20 mins prior ro Dialysis Stop: 04/14/24 15:58 Last Admin: 03/17/24 12:11 Dose: 0.5 mg Melatonin (Melatonin 3 Mg Tab) 6 mg PO HS PRN PRN Reason: Sleep Stop: 04/14/24 23:27 Metoprolol Succinate (Metoprolol Succ 25mg Ext Rel Tab) 25 mg PO BID MARCOS Stop: 04/14/24 20:59 Last Admin: 03/17/24 08:43 Dose: 25 mg Midodrine (Midodrine Hcl 2.5 Mg Tab) 2.5 mg PO TIDM MARCOS Stop: 04/14/24 16:59 Last Admin: 03/17/24 16:10 Dose: 2.5 mg Midodrine (Midodrine Hcl 10 Mg Tab) 5 - 10 mg PO PRN PRN PRN Reason: before & during dialysis Stop: 04/14/24 16:28 Last Admin: 03/17/24 11:48 Dose: 10 mg Morphine Sulfate (Morphine Sulfate 10 Mg/0.5 Ml Udp) 4 mg SL Q4H PRN PRN Reason: Pain/anxiety before dialysis Stop: 03/29/24 15:58 Nitroglycerin (Nitroglycerin Sl 0.4 Mg/Tab Tab) 0.4 mg SL PRN PRN PRN Reason: Chest Pain Stop: 04/14/24 15:58 Ondansetron HCl (Ondansetron Inj 2 Mg/Ml 2 Ml Vial) 4 mg IV Q6H PRN PRN Reason: Nausea Stop: 04/14/24 15:58 Polyethylene Glycol (Polyethylene (Miralax) 17 Gm Pack) 17 gm PO DAILY PRN PRN Reason: Constipation Stop: 04/14/24 15:58 Rosuvastatin Calcium (Rosuvastatin Calcium 10 Mg Tab) [address] [facility] Stop: 04/15/24 08:59 Last Admin: 03/17/24 08:43 Dose: 10 mg Umeclidinium/Vilanterol (Umeclidinium/Vilanterol 62.5/25mcg 7 Puffs/Inhaler) 1 puffs INH DAILY MARCOS; Protocol Stop: 04/14/24 16:59 Last Admin: 03/17/24 08:41 Dose: 1 puffs Venlafaxine HCl (Venlafaxine Hcl Xr 37.5 Mg Capxr) 37.[address] [facility] Stop: 04/15/24 08:59 Last Admin: 03/17/24 08:42 Dose: 37.5 mg Vitamin B Complex/Folic Acid (Nephrocaps) 1 cap PO TuThSa@1600 [facility] Stop: 04/16/24 15:59 Last Admin: 03/17/24 16:47 Dose: 1 cap (5) HTN (hypertension) Hypertension type: unspecified Qualified Code(s): I10 - Essential (primary) hypertension (7) COPD (chronic obstructive pulmonary disease) COPD type: chronic bronchitis Chronic bronchitis type: simple Qualified Code(s): J41.0 - Simple chronic bronchitis
[2024-03-18] MEDS: MELATONIN 3 MG TAB PO PRN (00:17)
[2024-03-18] MEDS: bisacodyL 10 MG SUPP PR STA (00:57)
--- NOTE | 2024-03-18 15:31 | Hospitalist Progress Note ---
Date of Service March 18, 2024 Assessment & Plan (1) Acute metabolic encephalopathy: (2) ESRD on dialysis: (3) Atrial fibrillation/flutter: (4) Coronary artery disease: (5) HTN (hypertension): (6) Chronic hypoxemic respiratory failure: (7) COPD (chronic obstructive pulmonary disease): Plan This is an 83yo M with a PMH of ESRD on HD, CAD s/p stent, ESRD on HD, chronic hypoxemic respiratory failure (on 4 L NC O2 at baseline), COPD, HLD, atrial flutter/atrial fibrillation, history of DVT on Eliquis, MOLLY, CVA, prediabetes and other medical problems listed below who was brought in by family for evaluation of AMS and concerns for volume overload. Acute metabolic encephalopathy ESRD on HD with possible uremia and volume overload HD on TuThSa schedule - recent difficulty with outpatient dilaysis due to intermittent confusion/agitation Volume overload, possible uremia contributing to confusion Nephro consulted for dialysis Palliative consult for goals of care discussion/ consideration of dc on hospice if unable to tolerate dialysis Appreciate palliative care input and recommendation Continue hemodialysis as of now and further recommendation following more discussion with the family members Patient remains medically stable and seems to be back to his baseline The patient has been very anxious and difficult to continue hemodialysis due to anxiety and confusion during dialysis You will need to have an appointment with [facility] outpatient palliative care to address this issue Otherwise patient is agreeable to continue with dialysis and can be discharged tomorrow following dialysis Chronic respiratory failure Volume overload At resp baseline of 100% on 4L NC O2 BNP 1590 CXR with cardiomegaly and mild pulmonary edema Nephro consulted as above for dialysis , received dialysis today. Does not have any significant evidence of fluid overload Has bilateral leg edema but no shortness of breath-he believes that the leg edema has improved Trop elevation HS trop 61.9 -> 69.7, continue trend In setting of ESRD No chest pain or acute EKG changes No ACS and denies any more cardiac symptoms but follow-up Facial contusions Fall at home Evaluated at [facility] [employer] - CT head, CT cervical spine,CT abd/pelvis and CXR -no traumatic injury was noted and patient was discharged home Hgb stable at 8.7 (baseline 8-9), repeat CBC in AM Fall precautions PT/OT based on disposition H/o Atrial fibrillation/flutter Continue Toprol 25mg BIS, Eliquis for anticoagulation Coronary artery disease S/P stent, stable History of DVT (deep vein thrombosis) Continue Eliquis Dyslipidemia Continue atorvastatin DVT Ppx: Eliquis Code status: DNR/DNI PCP: Ulysses Dispo: admitted to med/surg Admission and Anticipated Discharge Date Admission Date: March 15, 2024 Subjective 03/17/2024 Patient was seen and examined in medical floor He is sitting on a chair and denies any significant symptoms Has been ongoing dialysis and was evaluated by palliative care today 03/18/2024 The patient was seen and examined in medical floor He has been stable but wants to go home today Has been difficult to keep him stable enough in place Reassured that he will be discharged following dialysis tomorrow Review of Systems Review of Systems: All systems reviewed and are unremarkable except as noted below Physical Exam Physical Exam: Sitting on a chair without any acute distress Constitutional: well developed, well nourished and + obese; not ill appearing Eyes: PERRL, conjunctivae normal, anicteric sclerae ENMT: external ear and nose normal, oropharynx normal Neck: trachea midline, no thyromegaly Respiratory: no respiratory distress Auscultation: lungs clear to auscultation bilaterally Cardiovascular: Rate/Rhythm: regular rate and regular rhythm; not tachycardic Heart Sounds: normal S1 and normal S2; no murmur Extremities: + edema (Trace edema bilaterally) Gastrointestinal (Abdomen): Inspection/Auscultation: + abdomen distended and normal bowel sounds Percussion/Palpation: abdomen soft; abdomen nontender Neurologic: normal touch/pain/proprioception and moves all extremities; no focal motor deficits Lymphatic: no cervical or axillary lymphadenopathy Results & Data Results & Data Vital Signs (Past 12 Hours) Vital Signs Temp Pulse Resp BP Pulse Ox O2 Del Method O2 Flow Rate 03/18/24 13:58 36.5 C 82 16 130/74 98 Nasal Cannula 4 03/18/24 12:06 114/67 03/18/24 07:18 Nasal Cannula 4 03/18/24 07:10 36.7 C 92 H 16 116/72 98 Nasal Cannula 4 Medications Administered Current Inpatient Medications Acetaminophen (Acetaminophen 325 Mg Tab) 650 mg PO Q4H PRN PRN Reason: pain/fever Stop: 04/14/24 15:58 Albuterol (Albuterol Hfa 8 Gm Inhaler) 2 puffs INH Q4R PRN PRN Reason: Wheezing Stop: 04/14/24 15:58 Albuterol (Albut/Ipratrop 3mg/0.5mg Neb 3 Ml Vial) 3 ml NEB Q4R PRN; Protocol PRN Reason: Wheezing Stop: 04/14/24 15:58 Apixaban (Apixaban 2.5 Mg Tab) 2.5 mg PO BID [facility] Stop: 04/14/24 20:59 Last Admin: 03/18/24 09:00 Dose: 2.5 mg Buspirone HCl (Buspirone 5 Mg Tab) 5 mg PO AMHS [facility] Stop: 04/14/24 20:59 Last Admin: 03/18/24 08:59 Dose: 5 mg Calcium Acetate (Calcium Acetate 667 Mg Cap/Tab) 1,334 mg PO TIDM [facility] Stop: 04/14/24 16:59 Last Admin: 03/18/24 12:07 Dose: 1,334 mg Calcium Acetate (Calcium Acetate 667 Mg Cap/Tab) 667 mg PO PRN PRN PRN Reason: Take 1 tab with snack Stop: 04/14/24 16:25 Guaifenesin (Guaifenesin 600 Mg Tabcr) 600 mg PO Q12 PRN PRN Reason: sob or wheezing Stop: 04/14/24 15:58 Lorazepam (Lorazepam 0.5 Mg Tab) 0.5 mg PO DAILY PRN PRN Reason: 15-20 mins prior ro Dialysis Stop: 04/14/24 15:58 Last Admin: 03/17/24 12:11 Dose: 0.5 mg Melatonin (Melatonin 3 Mg Tab) 9 mg PO HS PRN PRN Reason: Sleep Stop: 04/14/24 23:27 Last Admin: 03/18/24 00:17 Dose: 9 mg Metoprolol Succinate (Metoprolol Succ 25mg Ext Rel Tab) 25 mg PO BID [facility] Stop: 04/14/24 20:59 Last Admin: 03/18/24 08:59 Dose: 25 mg Midodrine (Midodrine Hcl 2.5 Mg Tab) 2.5 mg PO TIDM MARCOS Stop: 04/14/24 16:59 Last Admin: 03/18/24 13:21 Dose: 2.5 mg Midodrine (Midodrine Hcl 10 Mg Tab) 5 - 10 mg PO PRN PRN PRN Reason: before & during dialysis Stop: 04/14/24 16:28 Last Admin: 03/17/24 11:48 Dose: 10 mg Morphine Sulfate (Morphine Sulfate 10 Mg/0.5 Ml Udp) 4 mg SL Q4H PRN PRN Reason: Pain/anxiety before dialysis Stop: 03/29/24 15:58 Nitroglycerin (Nitroglycerin Sl 0.4 Mg/Tab Tab) 0.4 mg SL PRN PRN PRN Reason: Chest Pain Stop: 04/14/24 15:58 Ondansetron HCl (Ondansetron Inj 2 Mg/Ml 2 Ml Vial) 4 mg IV Q6H PRN PRN Reason: Nausea Stop: 04/14/24 15:58 Polyethylene Glycol (Polyethylene (Miralax) 17 Gm Pack) 17 gm PO DAILY PRN PRN Reason: Constipation Stop: 04/14/24 15:58 Rosuvastatin Calcium (Rosuvastatin Calcium 10 Mg Tab) 10 mg PO QAM [facility] Stop: 04/15/24 08:59 Last Admin: 03/18/24 09:00 Dose: 10 mg Umeclidinium/Vilanterol (Umeclidinium/Vilanterol 62.5/25mcg 7 Puffs/Inhaler) 1 puffs INH DAILY [facility]; Protocol Stop: 04/14/24 16:59 Last Admin: 03/18/24 08:58 Dose: 1 puffs Venlafaxine HCl (Venlafaxine Hcl Xr 37.5 Mg Capxr) 37.5 mg PO DAILY [facility] Stop: 04/15/24 08:59 Last Admin: 03/18/24 08:59 Dose: 37.5 mg Vitamin B Complex/Folic Acid (Nephrocaps) 1 cap PO TuThSa@1600 [facility] Stop: 04/16/24 15:59 Last Admin: 03/17/24 16:47 Dose: 1 cap (5) HTN (hypertension) Hypertension type: unspecified Qualified Code(s): I10 - Essential (primary) hypertension (7) COPD (chronic obstructive pulmonary disease) COPD type: chronic bronchitis Chronic bronchitis type: simple Qualified Code(s): J41.0 - Simple chronic bronchitis
[2024-03-18] MEDS: hydrOXYzine HCl 10 MG TAB PO STA (23:46)
--- NOTE | 2024-03-19 07:24 | Communication Note ---
Date of Service: March 19, 2024 Pt wishes to continue dialysis as outpatient. His behavior has been more challenging recently at dialysis > he has anxiety, has challenges keeping his fe et up /holding his access arm relatively still, has visual hallucinations, has literally stood up on treatment (with arterial needles in his arm), shaken his fist at staff, and has significant sacral pain. he has been on ativan/hydroxyzine in the fall, then in mid january stopped these and started morphine after careful discussion of pros/cons. His venlafaxine has been continued (on this > 1 year) and per [facility] records he's also been on longstanding buspar. [facility] palliative has been managing his anxiety and pain. PCP has also been helping at times. Also extremely challenging hemodynamic concerns with hypotension and volume overload particularly. I do not have the expertise to adjust or change medications for anxiety/pain for this dialysis pt and rely on palliative/PCP to do this. >Would not d/c back to OP dialysis until these medications are adjusted>>Suggest d/w Dr Schmidt his OP palliative provider or review w/ [facility] consulting palliative provider. >he will need a family member or friend to sit with him at OP dialysis to help redirect; possible that this will be an indefinite need. full prog note to follow later today
[2024-03-19 08:49] LABS: BUN Creatinine Ratio 7.9 (10-20); Calcium 8.5 mg/dl (8.6-10.3); Creatinine Clr Calc Pharmacy 10.2 ml/min; Potassium 5.1 mmol/L (3.5-5.1)
[2024-03-19] MEDS: HEPARIN SOD (PORCINE) 1000 UNIT/ML IV ONE (10:25)
[2024-03-19] MEDS: HEPARIN SOD (PORCINE) 1000 UNIT/ML IV SCH (10:25)
--- NOTE | 2024-03-19 15:57 | Hospitalist Progress Note ---
Date of Service March 19, 2024 Assessment & Plan (1) Acute metabolic encephalopathy: (2) ESRD on dialysis: (3) Atrial fibrillation/flutter: (4) Coronary artery disease: (5) HTN (hypertension): (6) Chronic hypoxemic respiratory failure: (7) COPD (chronic obstructive pulmonary disease): Plan This is an 83yo M with a PMH of ESRD on HD, CAD s/p stent, ESRD on HD, chronic hypoxemic respiratory failure (on 4 L NC O2 at baseline), COPD, HLD, atrial flutter/atrial fibrillation, history of DVT on Eliquis, MOLLY, CVA, prediabetes and other medical problems listed below who was brought in by family for evaluation of AMS and concerns for volume overload. Acute metabolic encephalopathy ESRD on HD with possible uremia and volume overload HD on TuThSa schedule - recent difficulty with outpatient dialysis due to intermittent confusion/agitation Nephro consulted for dialysis Palliative consult for goals of care discussion/ consideration of dc on hospice if unable to tolerate dialysis - patient desires to continue dialysis treatment at this time Has been very anxious and impulsive during HD - attempting to stand, moving arm around despite pre-treatment with ativan ? dementia contributing to intermittent agitation. No formal diagnosis Discussed with Dr. Patel today - agree that we need more time to develop new plan for dialysis so patient can undergo safely Discussed with Dr. Huff - she will plan to see tomorrow and administer MOCA, will call POA/daughter Damaris for further discussion of goals of care, also have OP palliative appt set up for 03/25 at 10AM Appreciate psych, palliative recs regarding medications to trial - currently using ativan, previously trialed Roxanol. Will give Zyprexa 5mg ODT this evening, PRN tomorrow with goal of improved sleep and better dialysis tolerance Consider discontinuing Buspar as psych feels not a lot of benefit now, could increase side effects Chronic respiratory failure Volume overload At resp baseline of 100% on 4L NC O2 BNP 1590 CXR with cardiomegaly and mild pulmonary edema Nephro consulted as above for dialysis, received dialysis today COPD Continue home inhalers Duoneb x 1 this afternoon as patient with more wheezing Still 96% on 4L NC O2 (baseline) Trop elevation HS trop 61.9 -> 69.7 In setting of ESRD No chest pain or acute EKG changes No ACS and denies any more cardiac symptoms but follow-up Facial contusions Fall at home Evaluated at [place] [facility] [employer] - CT head, CT cervical spine,CT abd/pelvis and CXR -no traumatic injury was noted and patient was discharged home Hgb stable at 8.7 (baseline 8-9), repeat CBC in AM Fall precautions PT/OT based on disposition H/o Atrial fibrillation/flutter Continue Toprol 25mg BIS, Eliquis for anticoagulation Coronary artery disease S/P stent, stable History of DVT (deep vein thrombosis) Continue Eliquis Dyslipidemia Continue atorvastatin Goals of care discussion with Damaris over the phone and updated this evening. Palliative to call as well. DVT Ppx: Eliquis Code status: DNR/DNI PCP: Ulysses Dispo: admitted to med/surg Care coordinated with Dr. Angulo. I spent a total of 65 minutes coordinating, documenting, and providing care for this patient excluding time spent in the performance of separately billed services. Admission and Anticipated Discharge Date Admission Date: March 15, 2024 Supervising Physician Co-Signing Physician Notes Attending addendum: Patient was seen and examined in medical floor in presence ofone of the daughters and the He has been pleasantly confused On examination Lying in bed with drowsiness and also confusion Remains hemodynamically stable His labs were reviewed and medications reviewed as well Has significant anxiety and hallucinations during dialysis and not been tolerating dialysis Psychiatrist and also palliative care involved for decision about goals of care Nephrology is on board as well to continue dialysis Agree with assessment plan below for treatment PSA and take full responsibility of the care in the hospital DR Nic Angulo Subjective Patient seen and examined in 316 following dialysis. Sleepy but woke up during the end of exam. Has some pain on backside but better sleeping on his side. Denies any chest pain or shortness of breath. Discussed with nurse, who confirmed patient with intermittent confusion/agitation and limited sleeping at night. No change to mentation in the past few days. Review of Systems Review of Systems: At least ten systems reviewed and negative except as noted in the HPI. Physical Exam Physical Exam: Gen: WD/WN, NAD, sleeping in bed, awakens during exam, A&O x person and place, chronically ill appearing, scattered bruising noted HEENT: Normocephalic, atraumatic, mucous membranes moist Lung: Scattered expiratory wheezing, coarse breath sounds at bases Heart: irregular rate & rhythm Abdomen: Soft, NT, ND +BS x 4 Extremities: 1+ edema Skin: Warm, no rash Results & Data Results & Data Vital Signs (Past 12 Hours) Vital Signs Temp Pulse Pulse Pulse Resp BP BP 03/19/24 15:36 36.2 C L 82 18 107/65 03/19/24 13:18 36.3 C L 82 18 102/67 03/19/24 13:10 36.6 C 93 H 141/65 H 03/19/24 13:00 68 79/41 L 03/19/24 12:30 74 89/55 L 03/19/24 12:00 89 107/60 03/19/24 11:30 65 91/77 L 03/19/24 11:00 80 131/56 L 03/19/24 10:30 91 H 107/62 03/19/24 10:00 80 119/60 03/19/24 09:30 36.6 C 65 03/19/24 07:54 03/19/24 07:30 36.7 C 90 17 112/62 Pulse Ox O2 Del Method O2 Flow Rate 03/19/24 15:36 Nasal Cannula 4 03/19/24 13:18 96 Nasal Cannula 4 03/19/24 13:10 03/19/24 13:00 03/19/24 12:30 03/19/24 12:00 03/19/24 11:30 03/19/24 11:00 03/19/24 10:30 03/19/24 10:00 03/19/24 09:30 03/19/24 07:54 Nasal Cannula 4 03/19/24 07:30 94 Nasal Cannula 4 Laboratory Results BMP 03/19/24 07:58 Sodium 138 Potassium 5.1 Chloride 99 Carbon Dioxide 32 BUN 43 H Creatinine 5.42 H* Glucose 96 Calcium 8.5 L Diagnostic Findings Chest X-Ray 03/15/24 12:09 XR chest 1V portable CLINICAL HISTORY: Chest pain, nonspecific TECHNIQUE: Single frontal radiograph of the chest was obtained. Comparison: Comparison is made to chest radiograph 01/28/2024 FINDINGS: No lines and tubes are seen. Cardiomegaly is noted. The aortic arch is calcified. Lungs are underinflated. Pulmonary vascular prominence is noted. No evidence of pleural effusion or pneumothorax. IMPRESSION: Cardiomegaly and mild pulmonary edema. ACT 112: Negative or not required by law. Electronically signed by: Elio Pacheco M.D. 03/15/2024 1:01 PM (5) HTN (hypertension) Hypertension type: unspecified Qualified Code(s): I10 - Essential (primary) hypertension (7) COPD (chronic obstructive pulmonary disease) COPD type: chronic bronchitis Chronic bronchitis type: simple Qualified Code(s): J41.0 - Simple chronic bronchitis
[2024-03-19] MEDS: ALBUT/IPRATROP 3MG/0.5MG NEB 3 ML VIAL NEB ONE (16:42)
--- NOTE | 2024-03-19 19:22 | Nephrology Progress Note ---
Date of Service March 19, 2024 Assessment & Plan (1) ESRD on dialysis: Plan: consider HD tomorrow PM if we are able to get better medication regimen in place for anxiety; else will wait until 03/21 >>needs sitter for next HD potentially ->would like to do extra tx to help with volume overlaod using AVF and 2K bath based on K 5.1 -ideally should do daily dialysis for a bit of time (2) Anemia in ESRD (end-stage renal disease): Plan: montior hgfb daily; keep > 8 t o lower demaindischemia; hgb 8.0 today. no epo in HD d/t known Renal cell cancer (3) Agitation: Plan: defer to primary service and palliative to evaluate OP meds to see if any contributing to visual hallucinations and to control pain wile avoiding po nsaids ? role for morphine in halluciations? << unable to ask him about these today issues w/ agitation on dialysis reviewed in detail w/ Dr Angulo and w/ BENJI Gallo repeatedly through the day; appreciate dialogue with and coordination efforts of primary service > plan for psychiatry eval and also will ask palliative to reevlaute, help w/ understanding of cognitive status, goals of care, and medication adjustments (4) Pulmonary edema: Plan: mild; e/o vol OL; remains at baseline 02; no e/o dropping his sats Admission and Anticipated Discharge Date Admission Date: March 15, 2024 Subjective stopped in to see pt at 1600; he was sleeping soundly; I tried to waken him briefly but when he did not immediatley wake up I did not continue to try waking him; he had to stop dialysis early today 30 min b/c of agitation and inability to stay still > he tried to stand more than once; he also moved his arm repeatedly so that his needle dislodged 3 X; first 2X nurse was able to recannulate but not 3rd time Review of Systems 2 Review of Systems: Unobtainable due to reduced consciousness Physical Exam 2 Constitutional: well developed, well nourished and + frail appearing; no acute distress ENMT: Mouth: + dry oral mucous membranes Respiratory: normal respiratory effort Auscultation: + rhonchi and + wheezes (diffuse exp) Cardiovascular: Rate/Rhythm: + irregularly irregular Heart Sounds: + murmur Extremities: + edema (3+ BLE melvin L) and + AV fistula (+ t/b) Gastrointestinal (Abdomen): Inspection/Auscultation: normal bowel sounds P ercussion/Palpation: abdomen soft; abdomen nontender Skin: no rashes, warm and dry Results & Data Vital Signs (Past 12 Hours) Vital Signs Temp Pulse Pulse Pulse Resp BP BP 03/19/24 18:05 79 18 103/61 03/19/24 15:36 36.2 C L 82 18 107/65 03/19/24 13:18 36.3 C L 82 18 102/67 03/19/24 13:10 36.6 C 93 H 141/65 H 03/19/24 13:00 68 79/41 L 03/19/24 12:30 74 89/55 L 03/19/24 12:00 89 107/60 03/19/24 11:30 65 91/77 L 03/19/24 11:00 80 131/56 L 03/19/24 10:30 91 H 107/62 03/19/24 10:00 80 119/60 03/19/24 09:30 36.6 C 65 03/19/24 07:54 03/19/24 07:30 36.7 C 90 17 112/62 Pulse Ox O2 Del Method O2 Flow Rate 03/19/24 18:05 97 Nasal Cannula 4 03/19/24 15:36 Nasal Cannula 4 03/19/24 13:18 96 Nasal Cannula 4 03/19/24 13:10 03/19/24 13:00 03/19/24 12:30 03/19/24 12:00 03/19/24 11:30 03/19/24 11:00 03/19/24 10:30 03/19/24 10:00 03/19/24 09:30 03/19/24 07:54 Nasal Cannula 4 03/19/24 07:30 94 Nasal Cannula 4 Laboratory Results 03/17/24 06:43 03/19/24 07:58 (4) Pulmonary edema Chronicity: acute Qualified Code(s): J81.0 - Acute pulmonary edema
[2024-03-19] MEDS: OLANZapine ZYDIS 5 MG ORALLY DIS. TAB PO SCH (20:25)
[2024-03-20] MEDS: ACETAMINOPHEN 325 MG TAB PO PRN (02:56)
[2024-03-20 07:45] LABS: Hematocrit (blood only) 29.7 % (42.0-52.0); Hemoglobin 8.8 g/dl (14.0-18.0); Mean Corpuscular Hemoglobin 30.6 pg (25.0-34.0); Mean Corpuscular Hgb Conc 29.6 g/dL (32.0-36.0); Mean Corpuscular Volume 103.1 fL (80.0-100.0); Mean Platelet Volume 10.3 fL (9.4-12.4); Platelet Count 131 K/uL (130-400); RDW Coefficient of Variation 18.9 % (11.5-14.5); RDW Standard Deviation 70.7 fL (36.4-46.3); Red Blood Count 2.88 M/uL (4.70-6.10); White Blood Count 8.18 K/ul (4.8-10.8)
[2024-03-20 07:50] LABS: BUN Creatinine Ratio 7.8 (10-20); Calcium 8.5 mg/dl (8.6-10.3); Creatinine Clr Calc Pharmacy 12.3 ml/min; Potassium 4.3 mmol/L (3.5-5.1)
--- NOTE | 2024-03-20 13:22 | Electrocardiogram Report ---
Test Reason : Blood Pressure : */* mmHG Vent. Rate : 80 BPM Atrial Rate : 44 BPM P-R Int : * ms QRS Dur : 142 ms QT Int : 428 ms P-R-T Axes : * -63 111 degrees QTcB Int : 493 ms Poor data quality, interpretation may be adversely affected Atrial fibrillation Left axis deviation Right bundle branch block Abnormal ECG When compared with ECG of 15-Mar-2024 12:09, Previous ECG has undetermined rhythm, needs review Criteria for Septal infarct are no longer Present Confirmed by Aureliano Carpio ([id number] on 03/20/2024 1:21:35 PM Referred By: REFERRED SELF Confirmed By: Aureliano Carpio
--- NOTE | 2024-03-20 14:56 | Hospitalist Progress Note ---
Date of Service March 20, 2024 Assessment & Plan (1) Acute metabolic encephalopathy: (2) ESRD on dialysis: (3) Atrial fibrillation/flutter: (4) Coronary artery disease: (5) HTN (hypertension): (6) Chronic hypoxemic respiratory failure: (7) COPD (chronic obstructive pulmonary disease): Plan This is an 83yo M with a PMH of ESRD on HD, CAD s/p stent, ESRD on HD, chronic hypoxemic respiratory failure (on 4 L NC O2 at baseline), COPD, HLD, atrial flutter/atrial fibrillation, history of DVT on Eliquis, MOLLY, CVA, prediabetes and other medical problems listed below who was brought in by family for evaluation of AMS and concerns for volume overload. Acute metabolic encephalopathy ESRD on HD with possible uremia and volume overload HD on TuThSa schedule - recent difficulty with outpatient dialysis due to intermittent confusion/agitation Nephro consulted - managing dialysis Palliative consult for goals of care discussion/ consideration of dc on hospice if unable to tolerate dialysis - patient desires to continue dialysis treatment at this time Has been very anxious and impulsive during HD - attempting to stand, moving arm around despite pre-treatment with ativan ? dementia contributing to intermittent agitation. No formal diagnosis Discussed with Dr. Patel - need time to develop new plan for dialysis prior to dc so patient can undergo safely Discussed with Dr. Huff - extensive goals of care discussion with POA/daughter Damaris who reiterates desire to continue dialysis if able to appropriately medicate to undergo safely Continue trial of ODT Zyprexa 5mg HS with goal of improved nighttime sleep and better dialysis tolerance Dr. Huff to administed MOCA, recommending formal neurocognitive eval following dc OP palliative appt set up for 03/25 at 10AM CM to provide list of private care providers to Damaris, particularly needs help HS Discontinuing Buspar as psych feels not a lot of benefit now, could increase side effects Chronic respiratory failure Volume overload At resp baseline of 100% on 4L NC O2 BNP 1590 CXR with cardiomegaly and mild pulmonary edema Nephro consulted as above for dialysis COPD Continue home inhalers Duoneb x 1 this afternoon as patient with more wheezing Still 96% on 4L NC O2 (baseline) Trop elevation HS trop 61.9 -> 69.7 In setting of ESRD No chest pain or acute EKG changes No ACS and denies any more cardiac symptoms but follow-up Facial contusions Fall at home Evaluated at [facility] [employer] - CT head, CT cervical spine,CT abd/pelvis and CXR -no traumatic injury was noted and patient was discharged home Hgb stable at 8.7 (baseline 8-9), repeat CBC in AM Fall precautions PT/OT based on disposition H/o Atrial fibrillation/flutter Continue Toprol 25mg BIS, Eliquis for anticoagulation Coronary artery disease S/P stent, stable History of DVT (deep vein thrombosis) Continue Eliquis Dyslipidemia Continue atorvastatin Discussed update with palliative care this AM. Patient likely to stay over the weekend for continued Zyprexa trial. Palliative on board. DVT Ppx: Eliquis Code status: DNR/DNI PCP: [facility] Dispo: admitted to med/surg Care coordinated with Dr. Angulo. I spent a total of 45 minutes coordinating, documenting, and providing care for this patient excluding time spent in the performance of separately billed services. Admission and Anticipated Discharge Date Admission Date: March 15, 2024 Supervising Physician Co-Signing Physician Notes Attending addendum: The patient was seen and examined in medical floor He was sitting on a chair and pleasantly confused Denies any significant symptoms but remain generally weak and lethargic His ambulation in the room was unsteady in my presence On examination Sitting on a chair without any acute distress Minimal tremors involving the extremities with ambulation and standing Remained hemodynamically stable and has been saturating on 4 L nasal cannula His labs and medications reviewed Has been having problem with hemodialysis when the patient is getting very anxious with hallucinations and unsteadiness Psychiatrist and palliative care are involved Agree with assessment plan as outlined above by Elizabeth Gallo PA-C take the full responsibility of care in the hospital Dr Nic Angulo Subjective Patient seen and examined. Sleepy but awakened to verbal stimuli, cooperative. Per nursing still up a lot overnight, periods of clarity and then hallucinations. No CP or SOB. Tolerating diet, bowel movement today. Unable to obtain further 2/2 cognitive status Review of Systems Review of Systems: Unobtainable due to cognitive status Physical Exam Physical Exam: Gen: WD/WN, NAD, napping in bedside chair, awakens during exam, A&O x person and place, chronically ill appearing, facial bruising healing HEENT: Normocephalic, atraumatic, mucous membranes moist Lung: Scattered expiratory wheezing, coarse breath sounds at bases Heart: irregular rate & rhythm Abdomen: Soft, NT, ND +BS x 4 Extremities: 1-2+ edema, wounds on bilateral buttocks changed in AM, + AV fistula Skin: Warm, no rash Results & Data Results & Data Vital Signs (Past 12 Hours) Vital Signs Temp Pulse Pulse Resp BP Pulse Ox O2 Del Method 03/20/24 08:00 Nasal Cannula 03/20/24 07:55 89 111/69 03/20/24 07:13 90 03/20/24 07:11 36.7 C 111 H 22 100/53 L 99 Nasal Cannula O2 Flow Rate 03/20/24 08:00 4 03/20/24 07:55 03/20/24 07:13 03/20/24 07:11 4 Laboratory Results Short CBC 03/20/24 Range/Units 06:30 WBC 8.18 (4.8-10.8) K/ul Hgb 8.8 L (14.0-18.0) g/dl Hct 29.7 L (42.0-52.0) % Plt Count 131 (130-400) K/uL BMP 03/20/24 06:30 Sodium 139 Potassium 4.3 Chloride 102 Carbon Dioxide 30 BUN 35 H Creatinine 4.51 H* D Glucose 114 H Calcium 8.5 L Diagnostic Findings Chest X-Ray 03/15/24 12:09 XR chest 1V portable CLINICAL HISTORY: Chest pain, nonspecific TECHNIQUE: Single frontal radiograph of the chest was obtained. Comparison: Comparison is made to chest radiograph 01/28/2024 FINDINGS: No lines and tubes are seen. Cardiomegaly is noted. The aortic arch is calcifie d. Lungs are underinflated. Pulmonary vascular prominence is noted. No evidence of pleural effusion or pneumothorax. IMPRESSION: Cardiomegaly and mild pulmonary edema. ACT 112: Negative or not required by law. Electronically signed by: Elio Pacheco M.D. 03/15/2024 1:01 PM (5) HTN (hypertension) Hypertension type: unspecified Qualified Code(s): I10 - Essential (primary) hypertension (7) COPD (chronic obstructive pulmonary disease) COPD type: chronic bronchitis Chronic bronchitis type: simple Qualified Code(s): J41.0 - Simple chronic bronchitis
--- NOTE | 2024-03-20 19:30 | Palliative Family Discussion ---
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 This meeting was necessary for determining the appropriate course of treatment. Topics of Discussion Topics of Discussion: 1. Dr Pinedo shared pt has been having issues with agitation/melvin at night, wanders at night often leaving the house - has not had meds for this. We discussed a trial of zyprexa ODT 5mg and she was in agreement. She notes her mom has some cognitive issues as well, this adds to stress with pt as Mom has mob ility issues from DJD. Patient has not had formal testing for dementia, we discussed I would try to do a MoCA while he is here. We discussed home health options vs hospice, she notes prior d/w pt re hospice was negative as felt "hospice is just a bunch of vultures circling around while waiting for him to ." does not want hospice, and pt has stated he wants to keep going on current regimen but his growing intolerance and agitation is becoming more and more limiting. 2. Pt and/or family were educated re EOL w/ESRD:Pt stopping dialysis may live anywhere from one week to several weeks, depending on the amount of kidney function they have left and their overall medical condition.In hospitalized patients who stopped dialysis,confusion/agitation was reported to affect 70% of patients, followed by pain (55%), dyspnea (48%), nausea (36%), twitching/seizures (27%), anxiety/psychological distress (27%), pruritus (24%), and peripheral edema (21%). Advised thatmean survival following dialysis withdrawal is 8-10 days (although rarely can be many weeks); would note that advanced age, multiple comorbidities+frailty, I anticipate this will be shorter anticipated survival. Encouraged family to notify others who may want to visit or speak with pt, as periods of lucidity will decline as ESRD progresses along this EOL trajectory. I addressedthe likelihood of progressive encephalopathy. Reassuredpatient/familythat symptoms can be adequately treatedbut drugs with sedating side effects may be necessary to ensure comfort. Discusseddiet: provide pt witha liberal, pleasure-based dietto focus on comfort and QOL, acknowledging that this mayworsen symptoms from edema. (Sources: - https://www.mypcnow.org/fast-fact/ibqmlncbxxypcbx-sa-nibmwpvf-receiving-di alysis/ -Yady WALKER. End-of-life care preferences and needs: perceptions of patients with chronic kidney disease. Clinical Journal of the [place] Society of Nephrology: CJASN. 2010;5:195-204. -Cory KF, Amol B, Roberto V and Fiona COUGHLIN. Employment among Patients Starting Dialysis in the [place]. Clinical Journal of the [place] Society of Nephrology: CJASN. 2018. -Darius NAPOLES, Kentrell MJ, Bertha DM. Practical considerations in dialysis withdrawal. To have that option is a blessing. SIVA. 2003; 289:4910-3829. -Yady WALKER and Kamlesh HERNANDES. Impact of pain and symptom burden on the health- related quality of life of hemodialysis patients. Journal of Pain and Symptom Management. 2010;39:477-85.) 3. I specifically advised patient and/or family if present that Medicare pa tients can receive care under both the ESRD benefit and the hospice benefit, however the malone is whether or not the services are related to ESRD. If the patient's terminal condition is not related to ESRD, the patient may receive covered services under both the ESRD benefit and the hospice benefit ( https://www.cgsmedicare.[place]/[facility]/coverage/coverage_guidelines/esrd.html#:~:text=M edicare% 20patients%20can%20receive%20care,benefit%20and%20the%20hospice%20benefit.) We spoke about how the rigidness of the Medicare Hospice Benefit creates a clear barrier to providing people on dialysis with the full potential of hospice services, which ideally requires weeks of care. The requirement that beneficiaries revoke all life-prolonging care associated with the hospice diagnosis in order to receive hospice services forces patients with limited prognosis to decide between continuing life-prolonging treatments that may add time versus stopping these treatments to receive symptom-based care. Dialysis is a unique life-prolonging treatment with a predictably short prognosis after treatments cease. So, dialysis patients are forced to choose a path that likely will shorten survival in order to have access to the option of high-quality end-of-life services. Not surprisingly, few people on dialysis choose hospice, and those who do often delay hospice enrollment until very near the end of life, often in the setting of a hospitalization. Other Content of Meetin. Opportunity given for participants to speak and ask questions. 2. Participants were assured of attention to patient comfort. 3. Reassurance provided. 4. Support was provided for informed, good-fr[place] decisions. 5. Emotions expressed by family were acknowledged and addressed. 6. Await weekend, see how he does on HD with zyprexa on board 7. We will see in telemed [facility] within 1 mo of dc TS 75min Thank you for allowing us to participate in the ongoing care of this patient. Please page with any additional concerns. Ashly Huff DNP Director, Palliative Medicine
[2024-03-21 06:29] LABS: Hematocrit (blood only) 29.6 % (42.0-52.0); Mean Corpuscular Hgb Conc 30.4 g/dL (32.0-36.0); Mean Corpuscular Volume 102.1 fL (80.0-100.0); Mean Platelet Volume 10.2 fL (9.4-12.4); Platelet Count 124 K/uL (130-400); RDW Coefficient of Variation 18.8 % (11.5-14.5); RDW Standard Deviation 69.7 fL (36.4-46.3); White Blood Count 7.69 K/ul (4.8-10.8)
[2024-03-21 06:43] LABS: BUN Creatinine Ratio 9.2 (10-20); Calcium 8.6 mg/dl (8.6-10.3); Creatinine Clr Calc Pharmacy 9.3 ml/min; Potassium 4.9 mmol/L (3.5-5.1)
--- NOTE | 2024-03-21 08:22 | Hospitalist Progress Note ---
Date of Service March 21, 2024 Assessment & Plan (1) Acute metabolic encephalopathy: (2) ESRD on dialysis: (3) Atrial fibrillation/flutter: (4) Coronary artery disease: (5) HTN (hypertension): (6) Chronic hypoxemic respiratory failure: (7) COPD (chronic obstructive pulmonary disease): Plan This is an 83yo M with a PMH of ESRD on HD, CAD s/p stent, ESRD on HD, chronic hypoxemic respiratory failure (on 4 L NC O2 at baseline), COPD, HLD, atrial flutter/atrial fibrillation, history of DVT on Eliquis, MOLLY, CVA, prediabetes and other medical problems listed below who was brought in by family for evaluation of AMS and concerns for volume overload. Acute metabolic encephalopathy ESRD on HD with possible uremia and volume overload HD on TuThSa schedule - recent difficulty with outpatient dialysis due to intermittent confusion/agitation; 1:1 sitter for dialysis Nephro consulted - managing dialysis. nephro saw patient today; may consider additional dialysis session tomorrow 03/22 Palliative consult for GOC discussion/ consideration of dc on hospice if unable to tolerate dialysis - patient desires to continue dialysis treatment at this time Has been very anxious and impulsive during HD; Discussed at length with patient He has known agitation related to HD; sat with patient and discussed what gives him frustration or agitation during dialysis. Patient stated that he feels frustrated with how they position him during the treatment. Discussed rationale behind position changes and placement during hemodialysis patient has a sitter during dialysis Trial of ODT Zyprexa 5mg HS with goal of improved nighttime sleep and better dialysis tolerance; hold on Zyprexa predialysis today as patient without agitation. Dr. Huff to administer MOCA, recommending formal neurocognitive eval following dc OP palliative appt set up for 03/25 at 10AM CM to provide list of private care providers to Damaris, particularly needs help HS Buspar discontinued as psych feels not a lot of benefit now, could increase side effects Chronic respiratory failure Volume overload At resp baseline of 100% on 2L NC O2 BNP 1590 CXR with cardiomegaly and mild pulmonary edema Nephro consulted as above for dialysis Coarse anterior and posterior lung sounds COPD Continue home inhalers Duoneb x 1 this afternoon as patient with more wheezing Still 96% on 2L NC O2 (baseline) Trop elevation HS trop 61.9 -> 69.7 In setting of ESRD No chest pain or acute EKG changes; suspect ischemic demand No ACS and denies any more cardiac symptoms but follow-up Facial contusions Fall at home Evaluated at [facility] [employer] - CT head, CT cervical spine,CT abd/pelvis and CXR -no traumatic injury was noted and patient was discharged home Hgb stable at 9.0 (baseline 8-9), to neutral trend CBC Fall precautions PT/OT to assist with disposition H/o Atrial fibrillation/flutter Continue Toprol 25mg BIS, Eliquis for anticoagulation Coronary artery disease S/P stent, stable History of DVT (deep vein thrombosis) Continue Eliquis Dyslipidemia Continue atorvastatin palliative on board. Patient received Zyprexa last p.m. Will hold on Zyprexa for dialysis today given outlined conversation above. DVT Ppx: Eliquis Code status: DNR/DNI PCP: Dr. Arora Dispo: admitted to med/surg Care coordinated with Dr. Angulo. Patient daughter updated via phone extensively; all questions answered I spent a total of 51 minutes coordinating, documenting, and providing care for this patient excluding time spent in the performance of separately billed serv ices. Admission and Anticipated Discharge Date Admission Date: March 15, 2024 Supervising Physician Co-Signing Physician Notes Attending addendum: The patient was seen and examined in medical floor He has been feeling much better and denies any symptoms Was having usual conversation with him and he is happy that he tolerated the dialysis well. Next moment he wanted to go home and does not want to stay any longer in the hospital Was told that he is not going to be discharged today On examination Sitting on a chair without any apparent distress Hemodynamically stable His labs and medications reviewed Remains stable without occasional agitation, anxiety and aggressiveness Ongoing adjustment of medication Agree with assessment and plan as outlined above by DAVID Weber and take the full responsibility of care in the hospital Dr Nic Angulo Subjective Pt sitting at the edge of his hospital bedside chair in no apparent distress. He has known agitation related to HD; sat with patient and discussed what gives him frustration or agitation during dialysis. Patient stated that he feels frustrated with how they position him during the treatment. Discussed rationale behind position changes and placement during hemodialysis Patient stated that he would like to continue with hemodialysis at this time; denies any fears related to dying and understands that if he does stop dialysis that he would pass away likely within days. Wear supplemental O2 at baseline 2 L 08/10 at home. See further details regarding hemodialysis outlined below. Patient denies chest pain, dizziness, shortness of breath, abdominal pain or tenderness. Pt daughter, Damaris Pinedo updated via phone Review of Systems Review of Systems: Neuro: (-) Falls, trauma, slurred speech HEENT: (-) [place], dizziness, dysphagia, visual or auditory changes CV: (-) CP, palpitations, swelling Resp: (-) SOB; wears 2L supplemental O2 08/10 GI: (-) appetite changes, N/V/D, bowel changes : (-) urinary changes Skin: (-) rashes Psych: (-) anxiety, depression; patient denies fears around dying and does not seem agitated at this time Physical Exam Physical Exam: Neuro: AAOx4; sound decision making, PERRLA, no aphagia, memory changes, CNII- XII grossly intact HEENT: head normocephalic, moist mucus membranes CV: irregularly irregular, (-) M/G/R, (-) edema, cap refill < 3 seconds Resp: Lungs coarse in all rodriguez posteriorly and anteriorly. On 2L NC supplemental O2 GI: Abdomen S/NT/ND, Ax4 bowel sounds, (-) CVA tenderness Musculoskeletal: 5/5 B/L UE strength, 5/5 B/L LE strength. No gait disturbance Skin: (-) rashes , (-) erythema. Psych: flat affect without agitation Results & Data Results & Data Vital Signs (Past 12 Hours) Vital Signs Temp Pulse Resp BP Pulse Ox O2 Del Method O2 Flow Rate 03/21/24 07:50 36.3 C L 90 20 112/68 96 Nasal Cannula 2.5 03/21/24 04:57 97 Nasal Cannula 2 03/21/24 04:00 99 Nasal Cannula 3 03/20/24 21:51 Nasal Cannula 4 Laboratory Results Short CBC 03/21/24 Range/Units 06:02 WBC 7.69 (4.8-10.8) K/ul Hgb 9.0 L (14.0-18.0) g/dl Hct 29.6 L (42.0-52.0) % Plt Count 124 L (130-400) K/uL BMP 03/21/24 06:02 Sodium 138 Potassium 4.9 Chloride 101 Carbon Dioxide 29 BUN 55 H D Creatinine 5.95 H* D Glucose 142 H Calcium 8.6 (5) HTN (hypertension) Hypertension type: unspecified Qualified Code(s): I10 - Essential (primary) hypertension (7) COPD (chronic obstructive pulmonary disease) COPD type: chronic bronchitis Chronic bronchitis type: simple Qualified Code(s): J41.0 - Simple chronic bronchitis
[2024-03-21] MEDS: MIDODRINE HCL 2.5 MG TAB PO ONE (10:09)
--- NOTE | 2024-03-21 11:29 | Dialysis Progress Note ---
Date of Service March 21, 2024 Assessment & Plan Admission and Anticipated Discharge Date Admission Date: March 15, 2024 Subjective Assessment & Plan (1) ESRD on dialysis: Plan: consider HD tomorrow PM if we are able to get better medication regimen in place for anxiety; else will wait until 1/4 needs sitter for next HD likely but ill see the response with Zyprexa. (2) Anemia in ESRD (end-stage renal disease): Plan: monitor hgfb daily; keep > 8 t o lower demand ischemia;. no epo in HD d/t known Renal cell cancer (3) Agitation: Plan: defer to primary service and palliative to evaluate OP meds to see if any contributing to visual hallucinations and to control pain wile avoiding po nsaids Plan is to use Zyprexa. palliative is following has sitter for Dialysis. (4) Pulmonary edema: Plan: Aiming for 3 kilo but doubt we can Subjective Seen During Dialysis. very calm now but also has sitter. AVF is fine. BP is fine so far. Review of Systems Review of Systems: Unobtainable due to reduced consciousness Physical Exam Constitutional: well developed, well nourished and + frail appearing; no acute distress ENMT: Mouth: + dry oral mucous membranes Respiratory: normal respiratory effort Auscultation: + rhonchi and + wheezes (diffuse exp) Cardiovascular: Rate/Rhythm: + irregularly irregular Heart Sounds: + murmur Extremities: + edema (3+ BLE melvin L) and + AV fistula (+ t/b) Gastrointestinal (Abdomen): Inspection/Auscultation: normal bowel sounds Percussion/Palpation: abdomen soft; abdomen nontender Skin: no rashes, warm and dry Results & Data Vital Signs (Past 12 Hours) Vital Signs Temp Pulse Resp BP Pulse Ox O2 Del Method O2 Flow Rate 03/21/24 07:50 36.3 C L 90 20 112/68 96 Nasal Cannula 2.5 03/21/24 04:57 97 Nasal Cannula 2 03/21/24 04:00 99 Nasal Cannula 3
[2024-03-22] MEDS: ALBUT/IPRATROP 3MG/0.5MG NEB 3 ML VIAL NEB PRN (00:05)
[2024-03-22] MEDS: HYDROmorphone INJ 0.5 MG/0.5 ML SYR IV STA (03:16)
[2024-03-22 07:25] LABS: Hematocrit (blood only) 27.4 % (42.0-52.0); Hemoglobin 8.2 g/dl (14.0-18.0); Mean Corpuscular Hemoglobin 30.7 pg (25.0-34.0); Mean Corpuscular Hgb Conc 29.9 g/dL (32.0-36.0); Mean Corpuscular Volume 102.6 fL (80.0-100.0); Mean Platelet Volume 10.7 fL (9.4-12.4); Platelet Count 121 K/uL (130-400); RDW Coefficient of Variation 18.5 % (11.5-14.5); Red Blood Count 2.67 M/uL (4.70-6.10); White Blood Count 8.21 K/ul (4.8-10.8)
[2024-03-22 07:32] LABS: BUN Creatinine Ratio 10.6 (10-20); Calcium 8.4 mg/dl (8.6-10.3); Creatinine Clr Calc Pharmacy 13.3 ml/min
--- NOTE | 2024-03-22 08:03 | Hospitalist Progress Note ---
Date of Service March 22, 2024 Assessment & Plan (1) Acute metabolic encephalopathy: (2) ESRD on dialysis: (3) Atrial fibrillation/flutter: (4) Coronary artery disease: (5) HTN (hypertension): (6) Chronic hypoxemic respiratory failure: (7) COPD (chronic obstructive pulmonary disease): Plan This is an 83yo M with a PMH of ESRD on HD, CAD s/p stent, ESRD on HD, chronic hypoxemic respiratory failure (on 4 L NC O2 at baseline), COPD, HLD, atrial flutter/atrial fibrillation, history of DVT on Eliquis, MOLLY, CVA, prediabetes and other medical problems listed below who was brought in by family for evaluation of AMS and concerns for volume overload. Acute metabolic encephalopathy ESRD on HD with possible uremia and volume overload HD on TuThSa schedule - recent difficulty with outpatient dialysis due to intermittent confusion/agitation; 1:1 sitter for dialysis Creatinine 5.93-->4.16 post HD. K+ 5.0; trend BMP Nephro managing dialysis. nephro saw patient on 03/21 with 3.5L removed; next HD session 03/24, unless plan of care transitions to more hospice approach Continue active treatment Has been very anxious and impulsive during HD; Discussed at length with patient He has known agitation related to HD; he stated that he feels frustrated with how they position him during the treatment. Discussed rationale behind position changes and placement during hemodialysis patient has a sitter during dialysis on 03/21 - good outcone of HD Trial of ODT Zyprexa 5mg HS with goal of improved nighttime sleep and better dialysis tolerance; did not require Zyprexa predialysis on 03/21. Required Zyprexa this morning 03/22. OP palliative appt set up for 03/25 at 10AM CM to provide list of private care providers to Damaris, particularly needs help HS Goals of care conversation and counseling: Palliative consult for GOC discussion/ consideration of dc on hospice if unable to tolerate dialysis - patient desires to continue dialysis treatment at this time. lengthy conversation with patient yesterday who indicated that he did want to continue with dialysis and understood the risks versus benefits. I did ask him if he was fearful of dying yesterday and he indicated that he is fearful of leaving his of 61 years Gege. I discussed with the patient's daughter Damaris over the phone today on 03/22 regarding continued goals of care conversation. He indicated that the thought of leaving his is not going to be removed and as his days of clarity to become less and less as his disease continues to progress it will be more difficult for him to make this overarching decision. Suggested that at times when the patient is unable to transition to focusing on symptom control versus disease improvement that the family may benefit from giving the patient permission verbally to stop treatment/. Explained that as the disease progresses he will have less ability to make these decisions on his own and will require input from his next of kin/support. would benefit for continued goals of care conversation. overarching goal by daughter would be to eventually return home with hospice/additional services if his life expectancy was limited. Chronic respiratory failure Volume overload At resp baseline of 100% on 2L NC O2 BNP 1590 CXR with cardiomegaly and mild pulmonary edema Nephro consulted as above for dialysis Coarse anterior and posterior lung sounds COPD Continue home inhalers Duoneb x 1 this afternoon as patient with more wheezing 97% on 2L NC O2 (baseline) Trop elevation HS trop 61.9 -> 69.7 In setting of ESRD No chest pain or acute EKG changes; suspect ischemic demand No ACS and denies any more cardiac symptoms but follow-up Facial contusions Fall at home Evaluated at [facility] SORTER/ASSAY TECH - CT head, CT cervical spine,CT abd/pelvis and CXR -no traumatic injury was noted and patient was discharged home Hgb stable at 9.0 (baseline 8-9), to neutral trend CBC Fall precautions PT/OT to assist with disposition H/o Atrial fibrillation/flutter Continue Toprol 25mg BIS, Eliquis for anticoagulation Coronary artery disease S/P stent, stable History of DVT (deep vein thrombosis) Continue Eliquis Dyslipidemia Continue atorvastatin DVT Ppx: Eliquis Code status: DNR/DNI PCP: Dr. Arora Dispo: admitted to med/surg Care coordinated with Dr. Angulo. Patient daughter updated via phone extensively; all questions answered I spent a total of 53 minutes coordinating, documenting, and providing care for this patient excluding time spent in the performance of separately billed services. Admission and Anticipated Discharge Date Admission Date: March 15, 2024 Supervising Physician Co-Signing Physician Notes Attending addendum The patient was seen and examined in medical floor He remains pleasantly confused and sitting on a chair. No acute distress Asking when he will have next dialysis On examination Sitting on a chair without any acute distress Remains hemodynamically stable His labs and medications reviewed Has ESRD on HD with anxiety and behavioral issues requiring psychiatric and Palliative care assistance Agree with assessment plan as outlined evening Nelson HERNANDEZ and take the full responsibility of care in the hospital DR Nic Angulo Subjective Pt sitting in his hospital bedside chair; more sleepy than yesterday. per nursing ate 100% of breakfast. He was agitated overnight and received IV Dilaudid around 0330 He was arousable and able to communicate with me later on in the day and then became more agitated per nursing staff; does well with redirection Previous statement from yesterday indicating that he would like to continue with hemodialysis at this time; denies any fears related to dying and understands that if he does stop dialysis that he would pass away likely within days. Wear supplemental O2 at baseline 2 L 24/ at home. See further details regarding hemodialysis outlined below; next treatment 03/24 Patient denies chest pain, dizziness, shortness of breath, abdominal pain or tenderness. Pt daughter, Dr. Vargassathish Pinedo updated via phone Review of Systems Review of Systems: Neuro: (-) Falls, trauma, slurred speech HEENT: (-) [place], dizziness, dysphagia, visual or auditory changes CV: (-) CP, palpitations, swelling Resp: (-) SOB; wears 2L supplemental O2 08/10 GI: (-) appetite changes, N/V/D, bowel changes : (-) urinary changes Skin: (-) rashes Psych: (-) anxiety, depression; patient denies fears around dying and does not seem agitated at this time Physical Exam Physical Exam: Neuro: AAOx4; sound decision making, PERRLA, no aphagia, memory changes, CNII- XII grossly intact HEENT: head normocephalic, moist mucus membranes CV: irregularly irregular, (-) M/G/R, (-) edema, cap refill < 3 seconds Resp: Lungs coarse in all rodriguez posteriorly and anteriorly. On 2L NC supplemental O2 GI: Abdomen S/NT/ND, Ax4 bowel sounds, (-) CVA tenderness Musculoskeletal: 5/5 B/L UE strength, 5/5 B/L LE strength. No gait disturbance Skin: (-) rashes , (-) erythema. Psych: flat affect with some intermittent agitation Results & Data Results & Data Vital Signs (Past 12 Hours) Vital Signs Temp Pulse Pulse Resp BP Pulse Ox O2 Del Method 03/22/24 08:00 36.5 C 87 16 123/70 96 Nasal Cannula 03/22/24 07:01 36.5 C 83 18 110/73 94 Nasal Cannula 03/22/24 00:06 24 Nasal Cannula 03/21/24 23:41 36.4 C L 102 H 20 116/70 96 Nasal Cannula 03/21/24 22:06 89 123/76 03/21/24 22:00 Nasal Cannula 03/21/24 20:05 36.7 C 61 18 93/52 L 95 Nasal Cannula O2 Flow Rate 03/22/24 08:00 2 03/22/24 07:01 4 03/22/24 00:06 3 03/21/24 23:41 5 03/21/24 22:06 03/21/24 22:00 3 03/21/24 20:05 5 Laboratory Results Short CBC 03/22/24 Range/Units 06:25 WBC 8.21 (4.8-10.8) K/ul Hgb 8.2 L (14.0-18.0) g/dl Hct 27.4 L (42.0-52.0) % Plt Count 121 L (130-400) K/uL BMP 03/22/24 06:25 Sodium 136 Potassium 5.0 Chloride 100 Carbon Dioxide 30 BUN 44 H Creatinine 4.16 H D Glucose 200 H Calcium 8.4 L (5) HTN (hypertension) Hypertension type: unspecified Qualified Code(s): I10 - Essential (primary) hypertension (7) COPD (chronic obstructive pulmonary disease) COPD type: chronic bronchitis Chronic bronchitis type: simple Qualified Code(s): J41.0 - Simple chronic bronchitis
[2024-03-22] MEDS: OLANZapine ZYDIS 5 MG ORALLY DIS. TAB PO PRN (11:56)
[2024-03-23] MEDS: LORazepam 2 MG/1 ML VIAL IM STA (02:11)
[2024-03-23] MEDS: LORazepam 0.5 MG TAB SL STA (02:13)
[2024-03-23] MEDS: OLANZapine 10 MG/2.1 ML SDV IM STA ×2 (03:15→10:19)
--- NOTE | 2024-03-23 09:13 | XRay Report ---
XR chest 1V portable CLINICAL HISTORY: sob TECHNIQUE: Single frontal radiograph of the chest was obtained. Comparison: Comparison is made to chest radiograph 03/15/2024 FINDINGS: No lines and tubes are seen. Cardiomegaly is noted. The aortic arch is calcified. Lungs are underinfl ated. Pulmonary vascular prominence is again seen. There is greater prominence of interstitial thicke nan, left greater than right. No evidence of pleural effusion or pneumothorax. IMPRESSION: Cardiomegaly and mild to moderate pulmonary edema, increased from prior exam. ACT 112: Negative or not required by law. Electronically signed by: Elio Pacheco M.D. 03/23/2024 9:12 AM
[2024-03-23 10:18] LABS: Base Excess VBG 0.4 mEq/L; HCO3 VBG 27 mmol/L; Oxygen Saturation VBG 96.2 %; PCO2 VBG 57 mmHg (38-50); PO2 VBG 80 mmHg; pH VBG 7.29 (7.36-7.41)
[2024-03-23 10:28] LABS: Hematocrit (blood only) 26.4 % (42.0-52.0); Mean Corpuscular Hemoglobin 30.4 pg (25.0-34.0); Mean Corpuscular Hgb Conc 30.3 g/dL (32.0-36.0); Mean Corpuscular Volume 100.4 fL (80.0-100.0); Mean Platelet Volume 10.2 fL (9.4-12.4); Platelet Count 123 K/uL (130-400); RDW Coefficient of Variation 18.3 % (11.5-14.5); RDW Standard Deviation 66.3 fL (36.4-46.3); Red Blood Count 2.63 M/uL (4.70-6.10); White Blood Count 8.39 K/ul (4.8-10.8)
[2024-03-23 10:47] LABS: BUN Creatinine Ratio 10.8 (10-20); Creatinine Clr Calc Pharmacy 9.7 ml/min; Potassium 6.3 mmol/L (3.5-5.1)
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
[2024-03-23 13:10] LABS: Hep B Surface Ag with confirm Negative (Negative)
[2024-03-23 13:19] LABS: Hepatitis B Surface Antibody Immune
--- NOTE | 2024-03-23 13:23 | Hospitalist Progress Note ---
Date of Service March 23, 2024 Assessment & Plan (1) Acute metabolic encephalopathy: (2) ESRD on dialysis: (3) Atrial fibrillation/flutter: (4) Coronary artery disease: (5) HTN (hypertension): (6) Chronic hypoxemic respiratory failure: (7) COPD (chronic obstructive pulmonary disease): Plan This is an 83yo M with a PMH of ESRD on HD, CAD s/p stent, ESRD on HD, chronic hypoxemic respiratory failure (on 4 L NC O2 at baseline), COPD, HLD, atrial flutter/atrial fibrillation, history of DVT on Eliquis, MOLLY, CVA, prediabetes and other medical problems listed below who was brought in by family for evaluation of AMS and concerns for volume overload. Acute metabolic encephalopathy ESRD on HD with possible uremia and volume overload HD on TuThSa schedule - recent difficulty with outpatient dialysis due to intermittent confusion/agitation; 1:1 sitter for dialysis Nephro managing dialysis. nephro saw patient on 03/21 with 3.5L removed; next HD session 03/24, unless plan of care transitions to more hospice approach Continue active treatment Pt with increased work of breathing this morning, increased O2 requirement and CXR or mild to moderate pulm edema Nephro opted to dialyze today, he did not tolerate full tx due to combativeness. He required IM Zyprexa during tx OP palliative appt set up for 03/25 at 10AM - possible to still be hospitalized at this point, will need to reach out to Palliative tomorrow to determine next steps CM to provide list of private care providers to Damaris, particularly needs help HS From 03/22 and previous provider Goals of care conversation and counseling: " Palliative consult for [facility] discussion/ consideration of dc on hospice if unable to tolerate dialysis - patient desires to continue dialysis treatment at this time. lengthy conversation with patient yesterday who indicated that he did want to continue with dialysis and understood the risks versus benefits. I did ask him if he was fearful of dying yesterday and he indicated that he is fearful of leaving his of 61 years Gege. I discussed with the patient's daughter Damaris over the phone today on 03/22 regarding continued goals of care conversation. He indicated that the thought of leaving his is not going to be removed and as his days of clarity to become less and less as his disease continues to progress it will be more difficult for him to make this overarching decision. Suggested that at times when the patient is unable to transition to focusing on symptom control versus disease improvement that the family may benefit from giving the patient permission verbally to stop treatment/. Explained that as the disease progresses he will have less ability to make these decisions on his own and will require input from his next of kin/support. " would benefit for continued goals of care conversation. overarching goal by daughter would be to eventually return home with hospice/additional services if his life expectancy was limited. Chronic respiratory failure Volume overload At resp baseline of 100% on 2L NC O2 BNP 1590 --CXR : Cardiomegaly and mild to moderate pulmonary edema, increased from prior exam. Nephro consulted as above for dialysis Hyperkalemia Chronic Metabolic acidosis in setting of renal failure K 6.3 pre HD, pt received 3hrs of tx will repeat bmp in am. COPD Continue home inhalers no acute exac Trop elevation HS trop 61.9 -> 69.7 In setting of ESRD No chest pain or acute EKG changes; suspect ischemic demand No ACS and denies any more cardiac symptoms but follow-up Facial contusions Fall at home Evaluated at [facility] HAND I BLOCKER - CT head, CT cervical spine,CT abd/pelvis and CXR -no traumatic injury was noted and patient was discharged home Hgb stable at 9.0 (baseline 8-9), to neutral trend CBC Fall precautions PT/OT to assist with disposition H/o Atrial fibrillation/flutter Continue Toprol 25mg BIS, Eliquis for anticoagulation Coronary artery disease S/P stent, stable History of DVT (deep vein thrombosis) Continue Eliquis Dyslipidemia Continue atorvastatin DVT Ppx: Eliquis Code status: DNR/DNI PCP: Dr. Arora Dispo: admitted to med/surg Care coordinated with Dr. Angulo. I spent a total of 45 minutes coordinating, documenting, and providing care for this patient excluding time spent in the performance of separately billed services. Admission and Anticipated Discharge Date Admission Date: March 15, 2024 Supervising Physician Co-Signing Physician Notes Attending addendum: The patient was seen and examined in medical floor He remains confused and also drowsy Will have dialysis today On examination Lying in bed with extreme tiredness and drowsiness Remains hemodynamically stable and afebrile Has been requiring 4 L to maintain saturation His labs and medications were reviewed He required 1 dose of Zyprexa while at dialysis due to unsteadiness and aggressiveness Awaiting family members to come and conversation with palliative for further goa ls of care Agree with assessment and plan as outlined above by Guillermina Bates PA-C and take the full responsibility of care in the hospital DR Nic Angulo Subjective Pt seen in room 316-1 with sitter at bedside. Pt reports breathing is, "not good." He denies f/c/s chest pain,n/v or abd pain. Discussed with JUAN ANTONIO east at bedside. Pt requiring 4L of oxygen. Review of Systems Review of Systems: All systems reviewed & are unremarkable except as noted in HPI & below Physical Exam Physical Exam: Gen: Chronically ill appearing M, NAD, A&O 2 HEENT: Normocephalic, atraumatic, conjunctivae moist, sclerae anicteric, mucous membranes moist. Lung: Clear to Auscultation bilaterally, with scattered rhonchi and wheezing, no rales Heart: IRR/IRR, no rubs, or gallops Abdomen: Soft, NT, ND +BS x 4 Extremities: BLE foreign law consultant edema, no warmth, minimal erythema Skin: Warm, no rash, negative turgor. Results & Data Results & Data Vital Signs (Past 12 Hours) Vital Signs Temp Pulse Pulse Pulse Resp BP BP 03/23/24 11:30 84 87/54 L 03/23/24 11:00 67 91/65 L 03/23/24 10:30 51 L 92/45 L 03/23/24 09:52 36.5 C 82 03/23/24 09:15 03/23/24 07:25 36 C L 90 16 112/71 03/23/24 04:17 69 20 Pulse Ox O2 Del Method O2 Flow Rate 03/23/24 11:30 03/23/24 11:00 03/23/24 10:30 03/23/24 09:52 03/23/24 09:15 Nasal Cannula 4 03/23/24 07:25 92 Nasal Cannula 4 03/23/24 04:17 96 Nasal Cannula 2 Laboratory Results I have independently reviewed and interpreted patient's CBC, VBG, BMP Short CBC 03/23/24 Range/Units 10:04 WBC 8.39 (4.8-10.8) K/ul Hgb 8.0 L (14.0-18.0) g/dl Hct 26.4 L (42.0-52.0) % Plt Count 123 L (130-400) K/uL BMP 03/23/24 10:04 Sodium 134 L Potassium 6.3 H* D Chloride 98 Carbon Dioxide 28 BUN 65 H D Creatinine 6.01 H* D Glucose 125 H Calcium 9.0 Diagnostic Findings Chest X-Ray 03/23/24 08:49 XR chest 1V portable CLINICAL HISTORY: sob TECHNIQUE: Single frontal radiograph of the chest was obtained. Comparison: Comparison is made to chest radiograph 03/15/2024 FINDINGS: No lines and tubes are seen. Cardiomegaly is noted. The aortic arch is calcified. Lungs are underinflated. Pulmonary vascular prominence is again seen. There is greater prominence of interstitial thickening, left greater than right. No evidence of pleural effusion or pneumothorax. IMPRESSION: Cardiomegaly and mild to moderate pulmonary edema, increased from prior exam. ACT 112: Negative or not required by law. Electronically signed by: Elio Pacheco M.D. 03/23/2024 9:12 AM Medications Administered Current Inpatient Medications Acetaminophen (Acetaminophen 325 Mg Tab) 650 mg PO Q4H PRN PRN Reason: pain/fever Stop: 04/14/24 15:58 Last Admin: 03/22/24 02:08 Dose: 650 mg Albuterol (Albuterol Hfa 8 Gm Inhaler) 2 puffs INH Q4R PRN PRN Reason: Wheezing Stop: 04/14/24 15:58 Albuterol (Albut/Ipratrop 3mg/0.5mg Neb 3 Ml Vial) 3 ml NEB Q4R PRN; Protocol PRN Reason: Wheezing Stop: 04/14/24 15:58 Last Admin: 03/23/24 04:12 Dose: 3 ml Apixaban (Apixaban 2.5 Mg Tab) 2.5 mg PO BID MARCOS Stop: 04/14/24 20:59 Last Admin: 03/23/24 08:49 Dose: 2.5 mg Calcium Acetate (Calcium Acetate 667 Mg Cap/Tab) 1,334 mg PO TIDM MARCOS Stop: 04/14/24 16:59 Last Admin: 03/23/24 13:06 Dose: 1,334 mg Calcium Acetate (Calcium Acetate 667 Mg Cap/Tab) 667 mg PO PRN PRN PRN Reason: Take 1 tab with snack Stop: 04/14/24 16:25 Guaifenesin (Guaifenesin 600 Mg Tabcr) 600 mg PO Q12 PRN PRN Reason: sob or wheezing Stop: 04/14/24 15:58 Lorazepam (Lorazepam 0.5 Mg Tab) 0.5 mg PO DAILY PRN PRN Reason: 15-20 mins prior ro Dialysis Stop: 04/14/24 15:58 Last Admin: 03/19/24 09:08 Dose: 0.5 mg Melatonin (Melatonin 3 Mg Tab) 9 mg PO HS PRN PRN Reason: Sleep Stop: 04/14/24 23:27 Last Admin: 03/22/24 20:07 Dose: 9 mg Metoprolol Succinate (Metoprolol Succ 25mg Ext Rel Tab) 25 mg PO BID MARCOS Stop: 04/14/24 20:59 Last Admin: 03/23/24 08:49 Dose: 25 mg Midodrine (Midodrine Hcl 2.5 Mg Tab) 2.5 mg PO TIDM MARCOS Stop: 04/14/24 16:59 Last Admin: 03/23/24 13:05 Dose: 2.5 mg Midodrine (Midodrine Hcl 10 Mg Tab) 5 - 10 mg PO PRN PRN PRN Reason: before & during dialysis Stop: 04/14/24 16:28 Last Admin: 03/19/24 08:08 Dose: 10 mg Morphine Sulfate (Morphine Sulfate 10 Mg/0.5 Ml Udp) 4 mg SL Q4H PRN PRN Reason: Pain/anxiety before dialysis Stop: 03/29/24 15:58 Nitroglycerin (Nitroglycerin Sl 0.4 Mg/Tab Tab) 0.4 mg SL PRN PRN PRN Reason: Chest Pain Stop: 04/14/24 15:58 Olanzapine (Olanzapine Zydis 5 Mg Orally Dis. Tab) 5 mg PO HS MARCOS Stop: 04/18/24 20:59 Last Admin: 03/22/24 20:07 Dose: 5 mg Olanzapine (Olanzapine Zydis 5 Mg Orally Dis. Tab) 5 mg PO QAM PRN PRN Reason: Agitation Stop: 04/19/24 08:59 Last Admin: 03/22/24 11:56 Dose: 5 mg Ondansetron HCl (Ondansetron Inj 2 Mg/Ml 2 Ml Vial) 4 mg IV Q6H PRN PRN Reason: Nausea Stop: 04/14/24 15:58 Polyethylene Glycol (Polyethylene (Miralax) 17 Gm Pack) 17 gm PO DAILY PRN PRN Reason: Constipation Stop: 04/14/24 15:58 Rosuvastatin Calcium (Rosuvastatin Calcium 10 Mg Tab) 10 mg PO QAM [facility] Stop: 04/15/24 08:59 Last Admin: 03/23/24 08:50 Dose: 10 mg Umeclidinium/Vilanterol (Umeclidinium/Vilanterol 62.5/25mcg 7 Puffs/Inhaler) 1 puffs INH DAILY [facility]; Protocol Stop: 04/14/24 16:59 Last Admin: 03/23/24 08:50 Dose: 1 puffs Venlafaxine HCl (Venlafaxine Hcl Xr 37.5 Mg Capxr) 37.5 mg PO DAILY [facility] Stop: 04/15/24 08:59 Last Admin: 03/23/24 08:49 Dose: 37.5 mg Vitamin B Complex/Folic Acid (Nephrocaps) 1 cap PO TuThSa@1600 [facility] Stop: 04/16/24 15:59 Last Admin: 03/21/24 17:42 Dose: 1 cap (5) HTN (hypertension) Hypertension type: unspecified Qualified Code(s): I10 - Essential (primary) hypertension (7) COPD (chronic obstructive pulmonary disease) COPD type: chronic bronchitis Chronic bronchitis type: simple Qualified Code(s): J41.0 - Simple chronic bronchitis
--- NOTE | 2024-03-23 18:38 | Palliative Family Discussion ---
Date of Service March 23, 2024 Patient Directed Conference Time of Meetinpm -6pm Participants: Vera Huff DNP Patient participation: no Patient Support System: dtr/Sylwia, Dr Damaris Pinedo Other Healthcare Provider Participation: None Meeting Location: tele Advanced Directive available: DNR/DNI The patient's surrogate medical decision maker participated: dtr A tele ACP meeting was held for TANISHA PINEDO. This meeting was necessary for determining the appropriate course of treatment. Topics of Discussion Topics of Discussion: 1. Discussion with dtr for 30min. Updated re HD today for fluid mgt and concerns over his continued agitation.IM Zyprexa was given prior to HD. He has been confused more often and inconsistent with sustained lucidity. She is planning to visit in person Weds if she recovers from current illness sufficiently.Pt remains adamant "no hospice they are vultures" but dtr has been trying to broaden those discussions. We agreed i will call her from his room tomorrow at 1pm, so she can be part of the visit/assessment. She will continue hospice conversation with her Mom but notes Mom's own dementia issues cloud her capacity to see the issues with more clarity. Other Content of Meetin. Opportunity given for participants to speak and ask questions. 2. Participants were assured of attention to patient comfort. 3. Reassurance provided. 4. Support was provided for informed, [place] decisions. 5. Emotions expressed by family were acknowledged and addressed. 6. Follow-up: tomorrow 1 pm shared visit TS 45min Thank you for allowing us to participate in the ongoing care of this patient. Please page with any additional concerns. Ashly Huff DNP Director, Palliative Medicine
[2024-03-23 19:22] VITALS: BP 115/74; TEMP 98.2
[2024-03-23 20:03] VITALS: PULSE 71; RESP 20; O2SAT 94
[2024-03-23] MEDS ORDERED: OLANZapine 10 MG/2.1 ML SDV IM PRN (20:07)
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
[2024-03-23] MEDS: OLANZapine ZYDIS 5 MG ORALLY DIS. TAB PO SCH (20:24)
--- NOTE | 2024-03-23 23:34 | Death Pronouncement Note ---
Date of Service March 23, 2024 Pronouncement Note Admission Date Admission Date: March 15, 2024 Date and Time of Date of : 03/23/24 Time of : 22:50 Contributing Factors (1) Acute metabolic encephalopathy: (2) ESRD on dialysis: (3) Atrial fibrillation/flutter: (4) Coronary artery disease: (5) HTN (hypertension): (6) Chronic hypoxemic respiratory failure: (7) COPD (chronic obstructive pulmonary disease): Additional Data Confirmation of : no pulse, no respirations, no heart sounds and pupils fixed and dilated Family: contacted Attending physician: Kameron Momin MD
--- NOTE | 2024-03-24 10:17 | Communication Note ---
Date of Service: March 24, 2024 Last night March 23 2024 was called that patient suddenly . Seems manager food safety was at bedside . Patient was repositioned by staff when patient complained of SOB. As per staff head of bed was adjusted and patient seemed stated better when asked and then suddenly he was gasping for breath and ceased to breath quickly at 2250. Saw patient. Patient unresponsive and no visible breathing seen.Pupils were fixed and dilated. No carotid pulse palpable. No heart sounds and breath sounds heard. Pronounced at 2250. Called daughter and notified that the patient suddenly at 2250.
--- NOTE | 2024-03-24 12:51 | Discharge Summary ---
Discharge Summary Date of Service March 24, 2024 Principal Dx & Hospital Course #1 = Principal Diagnosis (1) Acute metabolic encephalopathy: (2) ESRD on dialysis: (3) Atrial fibrillation/flutter: (4) Coronary artery disease: (5) HTN (hypertension): (6) Chronic hypoxemic respiratory failure: (7) COPD (chronic obstructive pulmonary disease): Plan This is an 83yo M with a PMH of ESRD on HD, CAD s/p stent, ESRD on HD, chronic hypoxemic respiratory failure (on 4 L NC O2 at baseline), COPD, HLD, atrial flutter/atrial fibrillation, history of DVT on Eliquis, MOLLY, CVA, prediabetes and other medical problems listed below who was brought in by family for evaluation of AMS and concerns for volume overload. Acute metabolic encephalopathy ESRD on HD with possible uremia and volume overload Chronic respiratory failure with chronic volume overload Chronic Metabolic acidosis in setting of renal failure COPD Atrial fibrillation Pt unfortunately ceased to breath in the late hours on 03/23/23. He was pronounced by pan helper, Dr. Momin Please refer to note Likely etiology stemming from ESRD with acute on chronic respiratory failure in setting of chronic volume overload and recent intolerance to HD Care coordinated with Dr. Angulo. Notes For Next Care Provider Medication Changes From Visit None Admission HPI Per Admitting Provider This is an 83yo M with a PMH of ESRD on HD, CAD s/p stent, ESRD on HD, chronic hypoxemic respiratory failure (on 4 L NC O2 at baseline), COPD, HLD, atrial flutter/atrial fibrillation, history of DVT on Eliquis, MOLLY, CVA, prediabetes and other medical problems listed below who was brought in by family for evaluation of AMS and concerns for volume overload. History obtained in part from daughter/POA at bedside, who is a physician, as well as other daughter and . Patient with intermittent confusion that is worsened recently and required more vigilant supervision. Patient got up during the night and attempted to go outside. awakened to him down on the ground near the threshold of the door with a facial injury. and daughter unable to get the patient up on their own so called EMS and was taken to [facility] for further evaluation. Underwent extensive CT imaging for trauma eval including CT head, CT cervical spine,CT abd/pelvis and CXR -no traumatic injury was noted and patient was discharged home. Patient continued to have more frequent episodes of confusion, which prompted daughter to bring him to ED for further evaluation. Has had progressive health decline with complex comorbidities over the past few months and no longer tolerating outpatient dialysis as well with times he is combative. Concern uremia is playing a role in altered mental status as well. Interested in further discussion of goals of care and even potential discharge on hospice. Patient is more clear during time of my evaluation. Denies any pain. No chest pain, shortness of breath, nausea, vomiting, abdominal pain, diarrhea or constipation. Does not make urine. Did not take a.m. meds prior to arrival. DNR/DNI. Admission Exam Per Admitting Provider General Appearance: WD/WN, vitals as above, NAD, sitting up in bed, pleasant Head: normocephalic, + facial contusions noted, no bleeding Eyes: normal inspection, PERRL, conjunctivae normal, anicteric sclerae ENT: external ear and nose normal, oropharynx normal Neck: normal visual inspection Respiratory: normal respiratory effort, lungs clear to auscultation. No accessory muscle use Cardiovascular: regular rate, rhythm, normal peripheral pulses, 1+ BLE edema. Vessels: + JVD Chest: normal inspection of chest Abdomen/GI: normal bowel sounds, soft, nontender, no hepatosplenomegaly Extremities/Musculoskeletal: no cyanosis or clubbing, extremities motor strength 5/5 Neurologic: PERRL, EOMI, accommodation nl, no face palsy, no dysarthria, CN's II-XI intact bilaterally and moves all extremities Psychiatric: A+Ox person, place, euthymic affect Skin: no rashes, normal color, warm/dry Discharge Exam please refer to Dr. Momin note Updated Medication List Medication Instructions Recorded Confirmed Type venlafaxine 37.5 mg 37.5 mg PO DAILY 02/01/22 03/15/24 History capsule,extended release 24 hr (Effexor XR) nitroglycerin 0.4 mg sublingual 0.4 mg sublingual UD PRN Chest Pain 05/14/23 03/15/24 History tablet (Nitrostat) rosuvastatin 10 mg tablet 10 mg PO QAM 05/14/23 03/15/24 History buspirone 5 mg tablet 5 mg PO AMHS 08/26/23 03/15/24 History glycopyrrolate 9 mcg-formoterol 1 puff inhalation BID 08/26/23 03/15/24 History 4.8 mcg HFA aerosol inhaler (Bevespi Aerosphere) vitamin B complex-vitamin C-folic 1 tab PO 3XWK 08/26/23 03/15/24 History acid 0.8 mg tablet (Izzy-Vianney) apixaban 2.5 mg tablet (Eliquis) 2.5 mg PO BID #60 tabs 08/29/23 03/15/24 Rx ipratropium 0.5 mg-albuterol 3 mg 3 ml NEB Q4 PRN Wheezing 10/31/23 03/15/24 History (2.5 mg base)/3 mL nebulization soln calcium acetate(phosphat bind) 667 1,334 mg PO TIDWMEAL 11/10/23 03/15/24 History mg capsule lorazepam 0.5 mg tablet 0.5 mg PO DIRECTED 11/10/23 03/15/24 History albuterol sulfate 2.5 mg/3 mL 2.5 mg continuous nebulization Q6 12/25/23 03/15/24 History (0.083 %) solution for nebulization PRN Wheezing albuterol sulfate 90 mcg/actuation 2 puff inhalation Q4 PRN Wheezing 12/25/23 03/15/24 History aerosol inhaler guaifenesin 600 mg tablet, 600 mg PO Q12 #60 tabs 12/30/23 03/15/24 Rx extended release 12 hr (Mucinex) midodrine 10 mg tablet 10 mg PO 3XWK PRN before dialysis 01/01/24 03/15/24 Rx #30 tabs metoprolol succinate 25 mg 25 mg PO BID 03/15/24 03/15/24 History tablet,extended release 24 hr midodrine 2.5 mg tablet 2.5 mg PO TID 03/15/24 03/15/24 History morphine concentrate 100 mg/5 mL See Rx Instructions .Route .COMPLEX 03/15/24 03/15/24 History (20 mg/mL) oral solution Hospital Stay Data Consultations 03/15/24 13:49 ED Decision to Admit Stat 03/15/24 14:00 Consult Nephrology Routine 03/15/24 15:16 Consult Palliative Care Routine Total Time Total Time Spent Total Time Spent (In Minutes): 35 minutes Supervising Physician Co-Signing Physician Notes Attending addendum: The above document reviewed and agree with Yany Hurt PA-C and take the full responsibility of it. DR Nic Angulo
== END 2024-03-23 23:30 | disposition expired | DRG 682 ==
LOC: ED 11:49 → SUATTDRO 15:16 → EDINP 15:16 → 3E 16:00